=== PATIENT | female | born 1955 | race Caucasian/White ===

== ENCOUNTER 2017-05-10 11:39 | Outpatient (RCR) | payer BC, SELFPAY ==
[2017-05-03 15:30] LABS: Absolute Lymphocyte Count 1.04 X10^3/ul (0.83-4.51); Absolute Neutrophil Count 5.6 X10^3/uL (2.0-7.7); Basophil# 0.07 X10^3/uL; Basophil% 0.9 % (0-1); Eosinophil# 0.13 X10^3/uL; Eosinophils% 1.7 % (0-5); Hematocrit 43.8 % (37-47); Hemoglobin 14.3 g/dl (12.0-15.0); Lymphocyte # 1.04 X10^3/ul (4.0); Lymphocyte % 13.9 % (19-41); Mean Corp Hgb Conc 32.6 g/gl (32-36); Mean Corpuscular Hgb 29.4 pg (27.0-32.0); Mean Corpuscular Volume 89.9 fL (81-99); Mean Platelet Vol. 11.1 fl (6.2-12.0); Monocyte# 0.58 X10^3/uL; Monocyte% 7.8 % (0-10); Neutrophil # 5.63 X10^3/uL (2.7-7.7); Neutrophil % 75.3 % (47-70); Platelet Count 250 K/mm3 (150-450); RBC Distribution Width SD 46.1 fl (35.1-43.9); Red Blood Count 4.87 M/mm3 (4.2-5.4); White Blood Count 7.5 K/mm3 (4.4-11.0)
[2017-05-03 15:32] LABS: POSITIVE COUNT NO; POSITIVE DIFFERENTIAL NO; POSITIVE MORPHOLOGY NO
[2017-05-03 15:44] LABS: Color, Urine Straw (Yellow); Glucose, Dipstick Normal (Normal); Ketone-Dipstick Negative (Negative); Leukocyte Esterase-Dipstick 100 /ul (Negative); Nitrite-Dipstick Negative (Negative); Occult Blood-Urine 10 /ul (Negative); Protein-Dipstick Negative (Negative); Specific Gravity, Urine 1.005 (1.002-1.030); Urine Bilirubin Dipstick Negative (Negative); Urine Clarity Clear (Clear); Urine Urobilinogen Normal (Normal)
[2017-05-03 17:18] LABS: AST(SGOT) 16 U/L (15-37); Alanine Aminotransfer ALT/SGPT 38 U/L (12-78); BUN 20 mg/dL (7-18); EST Glomerular Filtration Rate 49 mL/min (>60); Est Glom Filt Rate - Afr Amer 59 mL/min (>60)
[2017-05-10 12:34] LABS: Color, Urine Yellow (Yellow); Glucose, Dipstick Normal (Normal); Ketone-Dipstick Negative (Negative); Leukocyte Esterase-Dipstick 25 /ul (Negative); Nitrite-Dipstick Negative (Negative); Occult Blood-Urine Negative /ul (Negative); Protein-Dipstick 15 mg/dl (Negative); Specific Gravity, Urine 1.015 (1.002-1.030); Urine Bilirubin Dipstick Negative (Negative); Urine Clarity Sl. Cloudy (Clear); Urine Urobilinogen Normal (Normal)
[2017-05-10 12:35] LABS: Absolute Lymphocyte Count 1.43 X10^3/ul (0.83-4.51); Absolute Neutrophil Count 2.2 X10^3/uL (2.0-7.7); Basophil# 0.05 X10^3/uL; Basophil% 1.1 % (0-1); Eosinophil# 0.21 X10^3/uL; Eosinophils% 4.8 % (0-5); Hematocrit 42.6 % (37-47); Hemoglobin 14.2 g/dl (12.0-15.0); Lymphocyte # 1.43 X10^3/ul (4.0); Lymphocyte % 32.6 % (19-41); Mean Corp Hgb Conc 33.3 g/gl (32-36); Mean Corpuscular Hgb 29.7 pg (27.0-32.0); Mean Corpuscular Volume 89.1 fL (81-99); Mean Platelet Vol. 10.5 fl (6.2-12.0); Monocyte# 0.48 X10^3/uL; Neutrophil % 50.3 % (47-70); Platelet Count 204 K/mm3 (150-450); RBC Distribution Width CV 14.2 % (11.6-14.6); RBC Distribution Width SD 45.6 fl (35.1-43.9); Red Blood Count 4.78 M/mm3 (4.2-5.4); White Blood Count 4.4 K/mm3 (4.4-11.0)
[2017-05-10 12:40] LABS: POSITIVE COUNT NO; POSITIVE DIFFERENTIAL NO; POSITIVE MORPHOLOGY NO
[2017-05-10 12:52] LABS: AST(SGOT) 16 U/L (15-37); Alanine Aminotransfer ALT/SGPT 33 U/L (12-78); Albumin, Serum 4.1 g/dL (3.4-5.0); BUN 20 mg/dL (7-18); Creatinine, Serum 1.22 mg/dL (0.55-1.02); EST Glomerular Filtration Rate 48 mL/min (>60); Est Glom Filt Rate - Afr Amer 58 mL/min (>60)
== END 2017-05-10 11:50 | disposition home or self-care (01) ==
LOC: LAB 11:39
PROVIDERS: Visit Provider Allergy & Immunology
DX: T78.2XXD Anaphylactic shock, unspecified, subsequent encounter (principal); N18.3 Chronic kidney disease, stage 3 (moderate); Z79.899 Other long term (current) drug therapy
CPT/HCPCS: 36415; 80158; 81002; 82040; 82565; 84450; 84460; 84520; 85025; 87086; 87088; 87186

== ENCOUNTER 2017-06-05 14:06 | Outpatient (RCR) | payer BC, SELFPAY ==
[2017-04-27 10:31] VITALS: BP 139/85; BMI 34.0
[2017-05-26 14:45] LABS: Color, Urine Yellow (Yellow); Glucose, Dipstick Normal (Normal); Ketone-Dipstick Negative (Negative); Leukocyte Esterase-Dipstick 100 /ul (Negative); Nitrite-Dipstick Negative (Negative); Occult Blood-Urine Negative /ul (Negative); Protein-Dipstick Negative (Negative); Urine Bilirubin Dipstick Negative (Negative); Urine Clarity Clear (Clear); Urine Urobilinogen Normal (Normal)
[2017-05-26 14:48] LABS: Absolute Neutrophil Count 4.5 X10^3/uL (2.0-7.7); Basophil# 0.07 X10^3/uL; Eosinophil# 0.19 X10^3/uL; Eosinophils% 2.8 % (0-5); Hematocrit 43.3 % (37-47); Lymphocyte % 24.6 % (19-41); Mean Corp Hgb Conc 32.3 g/gl (32-36); Mean Corpuscular Hgb 29.3 pg (27.0-32.0); Mean Corpuscular Volume 90.6 fL (81-99); Monocyte# 0.45 X10^3/uL; Monocyte% 6.5 % (0-10); Neutrophil # 4.47 X10^3/uL (2.7-7.7); Neutrophil % 64.8 % (47-70); Platelet Count 235 K/mm3 (150-450); RBC Distribution Width CV 14.1 % (11.6-14.6); RBC Distribution Width SD 46.6 fl (35.1-43.9); Red Blood Count 4.78 M/mm3 (4.2-5.4); White Blood Count 6.9 K/mm3 (4.4-11.0)
[2017-05-26 14:49] LABS: POSITIVE COUNT NO; POSITIVE DIFFERENTIAL NO; POSITIVE MORPHOLOGY NO
[2017-05-26 15:20] LABS: AST(SGOT) 17 U/L (15-37); Alanine Aminotransfer ALT/SGPT 43 U/L (13-56); Albumin, Serum 3.9 g/dL (3.2-5.0); BUN 27 mg/dL (7-18); EST Glomerular Filtration Rate 49 mL/min (>60); Est Glom Filt Rate - Afr Amer 59 mL/min (>60)
[2017-06-01 09:19] LABS: Absolute Lymphocyte Count 1.06 X10^3/ul (0.83-4.51); Absolute Neutrophil Count 3.3 X10^3/uL (2.0-7.7); Basophil# 0.08 X10^3/uL; Basophil% 1.6 % (0-1); Color, Urine Yellow (Yellow); Eosinophil# 0.19 X10^3/uL; Eosinophils% 3.7 % (0-5); Glucose, Dipstick Normal (Normal); Hematocrit 42.6 % (37-47); Hemoglobin 14.1 g/dl (12.0-15.0); Ketone-Dipstick Negative (Negative); Leukocyte Esterase-Dipstick 100 /ul (Negative); Lymphocyte # 1.06 X10^3/ul (4.0); Lymphocyte % 20.8 % (19-41); Mean Corp Hgb Conc 33.1 g/gl (32-36); Mean Corpuscular Hgb 29.8 pg (27.0-32.0); Mean Corpuscular Volume 90.1 fL (81-99); Mean Platelet Vol. 11.2 fl (6.2-12.0); Monocyte# 0.46 X10^3/uL; Neutrophil # 3.29 X10^3/uL (2.7-7.7); Neutrophil % 64.5 % (47-70); Nitrite-Dipstick Negative (Negative); Occult Blood-Urine Negative /ul (Negative); POSITIVE COUNT NO; POSITIVE DIFFERENTIAL NO; POSITIVE MORPHOLOGY NO; Platelet Count 222 K/mm3 (150-450); Protein-Dipstick 30 mg/dl (Negative); RBC Distribution Width CV 14.4 % (11.6-14.6); RBC Distribution Width SD 46.7 fl (35.1-43.9); Red Blood Count 4.73 M/mm3 (4.2-5.4); Urine Bilirubin Dipstick Negative (Negative); Urine Clarity Cloudy (Clear); Urine Urobilinogen Normal (Normal); White Blood Count 5.1 K/mm3 (4.4-11.0)
[2017-06-01 09:51] LABS: AST(SGOT) 18 U/L (15-37); Alanine Aminotransfer ALT/SGPT 36 U/L (13-56); Albumin, Serum 3.7 g/dL (3.2-5.0); BUN 22 mg/dL (7-18); Creatinine, Serum 1.17 mg/dL (0.55-1.02); EST Glomerular Filtration Rate 50 mL/min (>60); Est Glom Filt Rate - Afr Amer 60 mL/min (>60)
[2017-06-05 16:09] LABS: Color, Urine Straw (Yellow); Glucose, Dipstick Normal (Normal); Ketone-Dipstick Negative (Negative); Leukocyte Esterase-Dipstick 100 /ul (Negative); Nitrite-Dipstick Negative (Negative); Occult Blood-Urine Negative /ul (Negative); Protein-Dipstick Negative (Negative); Urine Bilirubin Dipstick Negative (Negative); Urine Clarity Clear (Clear); Urine Urobilinogen Normal (Normal); Urine pH 6.5 (5.0 - 8.0)
[2017-06-05 16:14] LABS: Absolute Lymphocyte Count 1.32 X10^3/ul (0.83-4.51); Absolute Neutrophil Count 4.2 X10^3/uL (2.0-7.7); Basophil# 0.09 X10^3/uL; Basophil% 1.4 % (0-1); Eosinophil# 0.17 X10^3/uL; Eosinophils% 2.6 % (0-5); Hemoglobin 14.2 g/dl (12.0-15.0); Lymphocyte # 1.32 X10^3/ul (4.0); Lymphocyte % 20.2 % (19-41); Mean Corpuscular Hgb 29.6 pg (27.0-32.0); Mean Corpuscular Volume 89.6 fL (81-99); Mean Platelet Vol. 11.6 fl (6.2-12.0); Monocyte# 0.71 X10^3/uL; Monocyte% 10.9 % (0-10); Neutrophil % 64.4 % (47-70); Platelet Count 218 K/mm3 (150-450); RBC Distribution Width CV 14.5 % (11.6-14.6); RBC Distribution Width SD 47.3 fl (35.1-43.9); White Blood Count 6.5 K/mm3 (4.4-11.0)
[2017-06-05 16:17] LABS: POSITIVE COUNT NO; POSITIVE DIFFERENTIAL NO; POSITIVE MORPHOLOGY NO
[2017-06-05 16:38] LABS: AST(SGOT) 24 U/L (15-37); Alanine Aminotransfer ALT/SGPT 36 U/L (13-56); Albumin, Serum 3.9 g/dL (3.2-5.0); BUN 26 mg/dL (7-18); Creatinine, Serum 1.07 mg/dL (0.55-1.02); EST Glomerular Filtration Rate 55 mL/min (>60); Est Glom Filt Rate - Afr Amer 67 mL/min (>60)
== END 2017-06-05 15:00 | disposition home or self-care (01) ==
LOC: LAB 14:06
PROVIDERS: Visit Provider Allergy & Immunology
DX: T78.2XXD Anaphylactic shock, unspecified, subsequent encounter (principal); N18.3 Chronic kidney disease, stage 3 (moderate); Z79.899 Other long term (current) drug therapy
CPT/HCPCS: 36415; 80158; 81002; 82040; 82565; 84450; 84460; 84520; 85025

== ENCOUNTER 2017-07-06 13:46 | Outpatient (RCR) | payer BC, SELFPAY ==
[2017-06-15 15:52] LABS: Absolute Lymphocyte Count 1.47 X10^3/ul (0.83-4.51); Absolute Neutrophil Count 6.1 X10^3/uL (2.0-7.7); Basophil# 0.05 X10^3/uL; Basophil% 0.6 % (0-1); Eosinophils% 1.2 % (0-5); Hematocrit 42.8 % (37-47); Hemoglobin 13.9 g/dl (12.0-15.0); Lymphocyte # 1.47 X10^3/ul (4.0); Lymphocyte % 17.1 % (19-41); Mean Corp Hgb Conc 32.5 g/gl (32-36); Mean Corpuscular Hgb 29.2 pg (27.0-32.0); Mean Corpuscular Volume 89.9 fL (81-99); Mean Platelet Vol. 11.4 fl (6.2-12.0); Monocyte# 0.88 X10^3/uL; Monocyte% 10.2 % (0-10); Neutrophil # 6.08 X10^3/uL (2.7-7.7); Neutrophil % 70.7 % (47-70); Platelet Count 234 K/mm3 (150-450); RBC Distribution Width CV 14.1 % (11.6-14.6); RBC Distribution Width SD 46.3 fl (35.1-43.9); Red Blood Count 4.76 M/mm3 (4.2-5.4); White Blood Count 8.6 K/mm3 (4.4-11.0)
[2017-06-15 15:58] LABS: POSITIVE COUNT NO; POSITIVE DIFFERENTIAL NO; POSITIVE MORPHOLOGY NO
[2017-06-15 16:02] LABS: Color, Urine Yellow (Yellow); Glucose, Dipstick Normal (Normal); Ketone-Dipstick Negative (Negative); Leukocyte Esterase-Dipstick 100 /ul (Negative); Nitrite-Dipstick Negative (Negative); Occult Blood-Urine Negative /ul (Negative); Protein-Dipstick Negative (Negative); Urine Bilirubin Dipstick Negative (Negative); Urine Clarity Clear (Clear); Urine Urobilinogen Normal (Normal)
[2017-06-15 16:17] LABS: AST(SGOT) 16 U/L (15-37); Alanine Aminotransfer ALT/SGPT 39 U/L (13-56); Albumin, Serum 3.9 g/dL (3.2-5.0); BUN 30 mg/dL (7-18); Creatinine, Serum 1.33 mg/dL (0.55-1.02); EST Glomerular Filtration Rate 43 mL/min (>60); Est Glom Filt Rate - Afr Amer 52 mL/min (>60)
[2017-07-06 14:40] LABS: Absolute Lymphocyte Count 1.23 X10^3/ul (0.83-4.51); Absolute Neutrophil Count 4.1 X10^3/uL (2.0-7.7); Basophil# 0.06 X10^3/uL; Basophil% 0.9 % (0-1); Eosinophil# 0.14 X10^3/uL; Eosinophils% 2.2 % (0-5); Hematocrit 43.4 % (37-47); Hemoglobin 14.5 g/dl (12.0-15.0); Lymphocyte # 1.23 X10^3/ul (4.0); Lymphocyte % 19.2 % (19-41); Mean Corp Hgb Conc 33.4 g/gl (32-36); Mean Corpuscular Hgb 29.9 pg (27.0-32.0); Mean Corpuscular Volume 89.5 fL (81-99); Mean Platelet Vol. 10.7 fl (6.2-12.0); Monocyte# 0.79 X10^3/uL; Monocyte% 12.3 % (0-10); Neutrophil # 4.14 X10^3/uL (2.7-7.7); Neutrophil % 64.6 % (47-70); Platelet Count 230 K/mm3 (150-450); RBC Distribution Width CV 14.2 % (11.6-14.6); RBC Distribution Width SD 46.2 fl (35.1-43.9); Red Blood Count 4.85 M/mm3 (4.2-5.4); White Blood Count 6.4 K/mm3 (4.4-11.0)
[2017-07-06 14:54] LABS: POSITIVE COUNT NO; POSITIVE DIFFERENTIAL NO; POSITIVE MORPHOLOGY NO
[2017-07-06 15:01] LABS: AST(SGOT) 30 U/L (15-37); Alanine Aminotransfer ALT/SGPT 44 U/L (13-56); Albumin, Serum 3.9 g/dL (3.2-5.0); BUN 15 mg/dL (7-18); Creatinine, Serum 1.21 mg/dL (0.55-1.02); EST Glomerular Filtration Rate 48 mL/min (>60); Est Glom Filt Rate - Afr Amer 58 mL/min (>60)
[2017-07-06 15:21] LABS: Color, Urine Straw (Yellow); Glucose, Dipstick Normal (Normal); Ketone-Dipstick Negative (Negative); Leukocyte Esterase-Dipstick 25 /ul (Negative); Nitrite-Dipstick Negative (Negative); Occult Blood-Urine Negative /ul (Negative); Protein-Dipstick Negative (Negative); Specific Gravity, Urine 1.005 (1.002-1.030); Urine Bilirubin Dipstick Negative (Negative); Urine Clarity Clear (Clear); Urine Urobilinogen Normal (Normal); Urine pH 6.5 (5.0 - 8.0)
[2017-07-08 08:35] LABS: Cyclosporine 88 ng/mL (100-400)
== END 2017-07-06 14:00 | disposition home or self-care (01) ==
LOC: LAB 13:46
PROVIDERS: Visit Provider Allergy & Immunology
DX: Z79.899 Other long term (current) drug therapy (principal); N18.3 Chronic kidney disease, stage 3 (moderate); T78.2XXD Anaphylactic shock, unspecified, subsequent encounter
CPT/HCPCS: 36415; 80158; 81002; 82040; 82565; 84450; 84460; 84520; 85025

== ENCOUNTER 2017-08-08 14:08 | Outpatient (RCR) | payer BC, SELFPAY ==
[2017-07-19 11:33] LABS: Bacteria 0 SEEN /hpf (None Seen); Mucous, Urine 0 SEEN /hpf (<or=2+); Red Blood Cells-Urine 0 SEEN /hpf (0-5)
[2017-07-19 11:48] LABS: Absolute Lymphocyte Count 1.08 X10^3/ul (0.83-4.51); Absolute Neutrophil Count 4.3 X10^3/uL (2.0-7.7); Basophil# 0.05 X10^3/uL; Basophil% 0.8 % (0-1); Eosinophil# 0.13 X10^3/uL; Eosinophils% 2.1 % (0-5); Hematocrit 45.2 % (37-47); Hemoglobin 14.9 g/dl (12.0-15.0); Lymphocyte # 1.08 X10^3/ul (4.0); Lymphocyte % 17.5 % (19-41); Mean Corpuscular Hgb 29.3 pg (27.0-32.0); Mean Platelet Vol. 10.5 fl (6.2-12.0); Monocyte# 0.56 X10^3/uL; Monocyte% 9.1 % (0-10); Neutrophil # 4.32 X10^3/uL (2.7-7.7); Platelet Count 236 K/mm3 (150-450); RBC Distribution Width CV 14.1 % (11.6-14.6); RBC Distribution Width SD 45.2 fl (35.1-43.9); Red Blood Count 5.08 M/mm3 (4.2-5.4); White Blood Count 6.2 K/mm3 (4.4-11.0)
[2017-07-19 11:51] LABS: POSITIVE COUNT NO; POSITIVE DIFFERENTIAL NO; POSITIVE MORPHOLOGY NO
[2017-07-19 12:13] LABS: AST(SGOT) 19 U/L (15-37); Alanine Aminotransfer ALT/SGPT 41 U/L (13-56); Albumin, Serum 3.8 g/dL (3.2-5.0); BUN 18 mg/dL (7-18); Creatinine, Serum 1.16 mg/dL (0.55-1.02); EST Glomerular Filtration Rate 50 mL/min (>60); Est Glom Filt Rate - Afr Amer 61 mL/min (>60)
[2017-07-19 13:24] LABS: Color, Urine Yellow (Yellow); Glucose, Dipstick Normal (Normal); Ketone-Dipstick Negative (Negative); Leukocyte Esterase-Dipstick 25 /ul (Negative); Nitrite-Dipstick Negative (Negative); Occult Blood-Urine 25 /ul (Negative); Protein-Dipstick 30 mg/dl (Negative); Urine Bilirubin Dipstick Negative (Negative); Urine Clarity Clear (Clear); Urine Urobilinogen Normal (Normal); Urine pH 6.5 (5.0 - 8.0)
[2017-07-19 13:30] LABS: Squamous Epithelial Cells - UA 10-25 SEEN /hpf (5-10); White Blood Cells 0-5 SEEN /hpf (0-5)
[2017-08-08 15:10] LABS: Absolute Lymphocyte Count 1.33 X10^3/ul (0.83-4.51); Absolute Neutrophil Count 4.9 X10^3/uL (2.0-7.7); Basophil# 0.07 X10^3/uL; Eosinophil# 0.17 X10^3/uL; Eosinophils% 2.3 % (0-5); Hematocrit 43.2 % (37-47); Hemoglobin 14.6 g/dl (12.0-15.0); Lymphocyte # 1.33 X10^3/ul (4.0); Lymphocyte % 18.3 % (19-41); Mean Corp Hgb Conc 33.8 g/gl (32-36); Mean Corpuscular Volume 88.9 fL (81-99); Mean Platelet Vol. 11.1 fl (6.2-12.0); Monocyte# 0.74 X10^3/uL; Monocyte% 10.2 % (0-10); Neutrophil # 4.92 X10^3/uL (2.7-7.7); Neutrophil % 67.8 % (47-70); Platelet Count 233 K/mm3 (150-450); RBC Distribution Width CV 14.1 % (11.6-14.6); RBC Distribution Width SD 45.3 fl (35.1-43.9); Red Blood Count 4.86 M/mm3 (4.2-5.4); White Blood Count 7.3 K/mm3 (4.4-11.0)
[2017-08-08 15:11] LABS: POSITIVE COUNT NO; POSITIVE DIFFERENTIAL NO; POSITIVE MORPHOLOGY NO
[2017-08-08 15:29] LABS: AST(SGOT) 24 U/L (15-37); Alanine Aminotransfer ALT/SGPT 45 U/L (13-56); BUN 18 mg/dL (7-18); Creatinine, Serum 1.06 mg/dL (0.55-1.02); EST Glomerular Filtration Rate 56 mL/min (>60); Est Glom Filt Rate - Afr Amer 68 mL/min (>60)
[2017-08-08 16:18] LABS: Color, Urine Yellow (Yellow); Glucose, Dipstick Normal (Normal); Ketone-Dipstick Negative (Negative); Leukocyte Esterase-Dipstick Negative /ul (Negative); Nitrite-Dipstick Negative (Negative); Occult Blood-Urine Negative /ul (Negative); Protein-Dipstick Negative (Negative); Specific Gravity, Urine 1.005 (1.002-1.030); Urine Bilirubin Dipstick Negative (Negative); Urine Clarity Sl. Cloudy (Clear); Urine Urobilinogen Normal (Normal)
== END 2017-08-08 15:00 | disposition home or self-care (01) ==
LOC: LAB 14:08
PROVIDERS: Visit Provider Allergy & Immunology
DX: N18.3 Chronic kidney disease, stage 3 (moderate) (principal); T78.2XXD Anaphylactic shock, unspecified, subsequent encounter; Z79.899 Other long term (current) drug therapy
CPT/HCPCS: 36415; 80158; 81001; 81002; 82040; 82565; 84450; 84460; 84520; 85025

== ENCOUNTER 2017-08-31 13:00 | Outpatient (RCR) | payer BC, SELFPAY ==
[2017-08-25 09:53] LABS: Absolute Lymphocyte Count 1.13 X10^3/ul (0.83-4.51); Absolute Neutrophil Count 4.3 X10^3/uL (2.0-7.7); Basophil# 0.08 X10^3/uL; Basophil% 1.2 % (0-1); Eosinophil# 0.18 X10^3/uL; Eosinophils% 2.8 % (0-5); Hemoglobin 14.7 g/dl (12.0-15.0); Lymphocyte # 1.13 X10^3/ul (4.0); Lymphocyte % 17.6 % (19-41); Mean Corp Hgb Conc 33.4 g/gl (32-36); Mean Corpuscular Hgb 29.9 pg (27.0-32.0); Mean Corpuscular Volume 89.6 fL (81-99); Mean Platelet Vol. 10.8 fl (6.2-12.0); Monocyte# 0.69 X10^3/uL; Monocyte% 10.7 % (0-10); Neutrophil # 4.34 X10^3/uL (2.7-7.7); Neutrophil % 67.5 % (47-70); Platelet Count 220 K/mm3 (150-450); RBC Distribution Width CV 14.1 % (11.6-14.6); RBC Distribution Width SD 46.1 fl (35.1-43.9); Red Blood Count 4.91 M/mm3 (4.2-5.4); White Blood Count 6.4 K/mm3 (4.4-11.0)
[2017-08-25 09:54] LABS: POSITIVE COUNT NO; POSITIVE DIFFERENTIAL NO; POSITIVE MORPHOLOGY NO
[2017-08-25 10:18] LABS: AST(SGOT) 27 U/L (15-37); Albumin, Serum 3.9 g/dL (3.2-5.0); BUN 19 mg/dL (7-18); Creatinine, Serum 1.18 mg/dL (0.55-1.02); EST Glomerular Filtration Rate 49 mL/min (>60); Est Glom Filt Rate - Afr Amer 60 mL/min (>60)
[2017-08-25 14:29] LABS: Color, Urine Yellow (Yellow); Glucose, Dipstick Normal (Normal); Ketone-Dipstick Negative (Negative); Leukocyte Esterase-Dipstick 100 /ul (Negative); Nitrite-Dipstick Negative (Negative); Occult Blood-Urine Negative /ul (Negative); Protein-Dipstick Negative (Negative); Urine Bilirubin Dipstick Negative (Negative); Urine Clarity Sl. Cloudy (Clear); Urine Urobilinogen Normal (Normal)
[2017-08-31 13:39] LABS: Color, Urine Straw (Yellow); Glucose, Dipstick Normal (Normal); Ketone-Dipstick Negative (Negative); Leukocyte Esterase-Dipstick 25 /ul (Negative); Nitrite-Dipstick Negative (Negative); Occult Blood-Urine Negative /ul (Negative); Protein-Dipstick Negative (Negative); Urine Bilirubin Dipstick Negative (Negative); Urine Clarity Clear (Clear); Urine Urobilinogen Normal (Normal)
[2017-08-31 13:50] LABS: Basophil# 0.04 X10^3/uL; Basophil% 0.5 % (0-1); Eosinophil# 0.08 X10^3/uL; Hematocrit 42.5 % (37-47); Lymphocyte % 17.9 % (19-41); Mean Corp Hgb Conc 32.9 g/gl (32-36); Mean Corpuscular Hgb 29.3 pg (27.0-32.0); Mean Corpuscular Volume 88.9 fL (81-99); Mean Platelet Vol. 10.7 fl (6.2-12.0); Monocyte% 8.4 % (0-10); Neutrophil # 6.01 X10^3/uL (2.7-7.7); Neutrophil % 71.8 % (47-70); Platelet Count 219 K/mm3 (150-450); RBC Distribution Width CV 13.8 % (11.6-14.6); RBC Distribution Width SD 45.1 fl (35.1-43.9); Red Blood Count 4.78 M/mm3 (4.2-5.4); White Blood Count 8.4 K/mm3 (4.4-11.0)
[2017-08-31 13:54] LABS: POSITIVE COUNT NO; POSITIVE DIFFERENTIAL NO; POSITIVE MORPHOLOGY NO
[2017-08-31 14:13] LABS: AST(SGOT) 24 U/L (15-37); Albumin, Serum 3.9 g/dL (3.2-5.0); BUN 18 mg/dL (7-18); Creatinine, Serum 1.21 mg/dL (0.55-1.02); EST Glomerular Filtration Rate 48 mL/min (>60); Est Glom Filt Rate - Afr Amer 58 mL/min (>60)
== END 2017-08-31 14:00 | disposition home or self-care (01) ==
LOC: LAB 13:00
PROVIDERS: Visit Provider Allergy & Immunology
DX: N18.3 Chronic kidney disease, stage 3 (moderate) (principal); T78.2XXD Anaphylactic shock, unspecified, subsequent encounter; Z79.899 Other long term (current) drug therapy
CPT/HCPCS: 36415; 80158; 81002; 82040; 82565; 84450; 84520; 85025

== ENCOUNTER 2017-10-12 13:29 | Outpatient (RCR) | payer BC, SELFPAY ==
[2017-09-15 10:23] LABS: Color, Urine Yellow (Yellow); Glucose, Dipstick Normal (Normal); Ketone-Dipstick Negative (Negative); Leukocyte Esterase-Dipstick Negative /ul (Negative); Nitrite-Dipstick Negative (Negative); Occult Blood-Urine 10 /ul (Negative); Protein-Dipstick 15 mg/dl (Negative); Specific Gravity, Urine 1.015 (1.002-1.030); Urine Bilirubin Dipstick Negative (Negative); Urine Clarity Sl. Cloudy (Clear); Urine Urobilinogen Normal (Normal)
[2017-09-15 10:32] LABS: Absolute Lymphocyte Count 0.88 X10^3/ul (0.83-4.51); Absolute Neutrophil Count 6.4 X10^3/uL (2.0-7.7); Basophil# 0.05 X10^3/uL; Basophil% 0.6 % (0-1); Eosinophil# 0.44 X10^3/uL; Eosinophils% 5.1 % (0-5); Hemoglobin 14.1 g/dl (12.0-15.0); Lymphocyte # 0.88 X10^3/ul (4.0); Lymphocyte % 10.3 % (19-41); Mean Corp Hgb Conc 32.8 g/gl (32-36); Mean Corpuscular Hgb 29.4 pg (27.0-32.0); Mean Corpuscular Volume 89.8 fL (81-99); Mean Platelet Vol. 10.7 fl (6.2-12.0); Monocyte% 9.4 % (0-10); Neutrophil # 6.36 X10^3/uL (2.7-7.7); Neutrophil % 74.4 % (47-70); Platelet Count 213 K/mm3 (150-450); RBC Distribution Width CV 14.1 % (11.6-14.6); RBC Distribution Width SD 46.4 fl (35.1-43.9); Red Blood Count 4.79 M/mm3 (4.2-5.4); White Blood Count 8.6 K/mm3 (4.4-11.0)
[2017-09-15 11:00] LABS: AST(SGOT) 26 U/L (15-37); Albumin, Serum 3.7 g/dL (3.2-5.0); BUN 19 mg/dL (7-18); Creatinine, Serum 1.14 mg/dL (0.55-1.02); EST Glomerular Filtration Rate 51 mL/min (>60); Est Glom Filt Rate - Afr Amer 62 mL/min (>60)
[2017-09-15 11:03] LABS: POSITIVE COUNT NO; POSITIVE DIFFERENTIAL NO; POSITIVE MORPHOLOGY NO
[2017-09-28 10:26] LABS: Cyclosporine 180 ng/mL (100-400)
[2017-09-29 12:44] LABS: Absolute Lymphocyte Count 1.21 X10^3/ul (0.83-4.51); Absolute Neutrophil Count 5.4 X10^3/uL (2.0-7.7); Basophil# 0.06 X10^3/uL; Basophil% 0.8 % (0-1); Eosinophil# 0.25 X10^3/uL; Eosinophils% 3.4 % (0-5); Hematocrit 43.7 % (37-47); Hemoglobin 14.5 g/dl (12.0-15.0); Lymphocyte # 1.21 X10^3/ul (4.0); Lymphocyte % 16.4 % (19-41); Mean Corp Hgb Conc 33.2 g/gl (32-36); Mean Corpuscular Hgb 29.8 pg (27.0-32.0); Mean Corpuscular Volume 89.9 fL (81-99); Mean Platelet Vol. 10.9 fl (6.2-12.0); Monocyte# 0.45 X10^3/uL; Monocyte% 6.1 % (0-10); Neutrophil # 5.35 X10^3/uL (2.7-7.7); Neutrophil % 72.5 % (47-70); Platelet Count 227 K/mm3 (150-450); RBC Distribution Width CV 14.1 % (11.6-14.6); RBC Distribution Width SD 45.8 fl (35.1-43.9); Red Blood Count 4.86 M/mm3 (4.2-5.4); White Blood Count 7.4 K/mm3 (4.4-11.0)
[2017-09-29 12:50] LABS: POSITIVE COUNT NO; POSITIVE DIFFERENTIAL NO; POSITIVE MORPHOLOGY NO
[2017-09-29 12:56] LABS: Color, Urine Yellow (Yellow); Glucose, Dipstick Normal (Normal); Ketone-Dipstick Negative (Negative); Leukocyte Esterase-Dipstick Negative /ul (Negative); Nitrite-Dipstick Negative (Negative); Occult Blood-Urine Negative /ul (Negative); Protein-Dipstick 15 mg/dl (Negative); Specific Gravity, Urine 1.015 (1.002-1.030); Urine Bilirubin Dipstick Negative (Negative); Urine Clarity Clear (Clear); Urine Urobilinogen Normal (Normal)
[2017-09-29 13:04] LABS: AST(SGOT) 26 U/L (15-37); Alanine Aminotransfer ALT/SGPT 52 U/L (13-56); Albumin, Serum 3.7 g/dL (3.2-5.0); BUN 23 mg/dL (7-18); Creatinine, Serum 1.33 mg/dL (0.55-1.02); EST Glomerular Filtration Rate 43 mL/min (>60); Est Glom Filt Rate - Afr Amer 52 mL/min (>60)
[2017-10-03 14:48] LABS: Cyclosporine 163 ng/mL (100-400)
[2017-10-05 10:05] LABS: Mucous, Urine 0 SEEN /hpf (<or=2+); Red Blood Cells-Urine 0 SEEN /hpf (0-5)
[2017-10-05 11:03] LABS: Color, Urine Yellow (Yellow); Glucose, Dipstick Normal (Normal); Ketone-Dipstick Negative (Negative); Leukocyte Esterase-Dipstick 25 /ul (Negative); Nitrite-Dipstick Negative (Negative); Occult Blood-Urine 10 /ul (Negative); Protein-Dipstick 15 mg/dl (Negative); Specific Gravity, Urine 1.015 (1.002-1.030); Urine Bilirubin Dipstick Negative (Negative); Urine Clarity Clear (Clear); Urine Urobilinogen Normal (Normal)
[2017-10-05 11:08] LABS: Absolute Lymphocyte Count 1.08 X10^3/ul (0.83-4.51); Basophil# 0.05 X10^3/uL; Basophil% 0.8 % (0-1); Eosinophil# 0.21 X10^3/uL; Eosinophils% 3.6 % (0-5); Hematocrit 42.3 % (37-47); Hemoglobin 14.1 g/dl (12.0-15.0); Lymphocyte # 1.08 X10^3/ul (4.0); Lymphocyte % 18.3 % (19-41); Mean Corp Hgb Conc 33.3 g/gl (32-36); Mean Corpuscular Hgb 29.9 pg (27.0-32.0); Mean Corpuscular Volume 89.6 fL (81-99); Mean Platelet Vol. 11.1 fl (6.2-12.0); Monocyte# 0.53 X10^3/uL; Neutrophil # 4.01 X10^3/uL (2.7-7.7); Platelet Count 233 K/mm3 (150-450); RBC Distribution Width CV 14.1 % (11.6-14.6); RBC Distribution Width SD 45.9 fl (35.1-43.9); Red Blood Count 4.72 M/mm3 (4.2-5.4); White Blood Count 5.9 K/mm3 (4.4-11.0)
[2017-10-05 11:10] LABS: Bacteria RARE /hpf (None Seen); POSITIVE COUNT NO; POSITIVE DIFFERENTIAL NO; POSITIVE MORPHOLOGY NO; Squamous Epithelial Cells - UA 5-10 SEEN /hpf (5-10); White Blood Cells 0-5 SEEN /hpf (0-5)
[2017-10-05 11:25] LABS: Microalbumin,Random Urine 52.5 mg/L (NO RANGE EST.)
[2017-10-05 11:40] LABS: AST(SGOT) 21 U/L (15-37); Alanine Aminotransfer ALT/SGPT 49 U/L (13-56); Albumin, Serum 3.7 g/dL (3.2-5.0); BUN 14 mg/dL (7-18); BUN/Creat Ratio 12.5 RATIO (10-20); Calcium,Total 8.7 mg/dL (8.5-10.1); Chloride 110 mmol/L (98-107); Creatinine, Serum 1.12 mg/dL (0.55-1.02); EST Glomerular Filtration Rate 53 mL/min (>60); Est Glom Filt Rate - Afr Amer 64 mL/min (>60); Glucose 89 mg/dL (74-106); Phosphorus 3.3 mg/dL (2.5-4.9); Potassium 3.6 mmol/L (3.5-5.1); Sodium Level 141 mmol/L (136-145); Uric Acid 6.2 mg/dL (2.6-6.0)
[2017-10-06 09:51] LABS: PTHIN 50.4 pg/mL (18.4-80.1)
[2017-10-06 09:58] LABS: Vitamin D,25 Hydroxy 56.9 ng/mL (29.95-100.01)
[2017-10-12 14:14] LABS: Absolute Lymphocyte Count 1.64 X10^3/ul (0.83-4.51); Absolute Neutrophil Count 5.4 X10^3/uL (2.0-7.7); Basophil# 0.03 X10^3/uL; Basophil% 0.4 % (0-1); Eosinophils% 1.3 % (0-5); Hematocrit 43.3 % (37-47); Hemoglobin 14.1 g/dl (12.0-15.0); Lymphocyte # 1.64 X10^3/ul (4.0); Lymphocyte % 20.5 % (19-41); Mean Corp Hgb Conc 32.6 g/gl (32-36); Mean Corpuscular Hgb 29.1 pg (27.0-32.0); Mean Corpuscular Volume 89.5 fL (81-99); Mean Platelet Vol. 10.7 fl (6.2-12.0); Neutrophil # 5.41 X10^3/uL (2.7-7.7); Neutrophil % 67.5 % (47-70); Platelet Count 211 K/mm3 (150-450); RBC Distribution Width CV 14.2 % (11.6-14.6); RBC Distribution Width SD 46.3 fl (35.1-43.9); Red Blood Count 4.84 M/mm3 (4.2-5.4)
[2017-10-12 14:15] LABS: POSITIVE COUNT NO; POSITIVE DIFFERENTIAL NO; POSITIVE MORPHOLOGY NO
[2017-10-12 14:19] LABS: AST(SGOT) 19 U/L (15-37); Alanine Aminotransfer ALT/SGPT 48 U/L (13-56); Albumin, Serum 3.9 g/dL (3.2-5.0); BUN 17 mg/dL (7-18); Creatinine, Serum 1.18 mg/dL (0.55-1.02); EST Glomerular Filtration Rate 49 mL/min (>60); Est Glom Filt Rate - Afr Amer 60 mL/min (>60)
[2017-10-12 15:27] LABS: Color, Urine Straw (Yellow); Glucose, Dipstick Normal (Normal); Ketone-Dipstick Negative (Negative); Leukocyte Esterase-Dipstick 100 /ul (Negative); Nitrite-Dipstick Negative (Negative); Occult Blood-Urine Negative /ul (Negative); Protein-Dipstick Negative (Negative); Specific Gravity, Urine 1.005 (1.002-1.030); Urine Bilirubin Dipstick Negative (Negative); Urine Clarity Clear (Clear); Urine Urobilinogen Normal (Normal)
== END 2017-10-12 14:00 | disposition home or self-care (01) ==
LOC: LAB 13:29
PROVIDERS: Visit Provider Allergy & Immunology
DX: T78.2XXD Anaphylactic shock, unspecified, subsequent encounter (principal); N18.3 Chronic kidney disease, stage 3 (moderate); Z79.899 Other long term (current) drug therapy
CPT/HCPCS: 36415; 80069; 80158; 81001; 81002; 82040; 82043; 82306; 82565; 83970; 84450; 84460; 84520; 84550; 85025

== ENCOUNTER 2017-11-10 09:32 | Outpatient (RCR) | payer BC, SELFPAY ==
[2017-10-19 15:18] LABS: Color, Urine Straw (Yellow); Glucose, Dipstick Normal (Normal); Ketone-Dipstick Negative (Negative); Leukocyte Esterase-Dipstick Negative /ul (Negative); Nitrite-Dipstick Negative (Negative); Occult Blood-Urine Negative /ul (Negative); Protein-Dipstick Negative (Negative); Specific Gravity, Urine 1.005 (1.002-1.030); Urine Bilirubin Dipstick Negative (Negative); Urine Clarity Clear (Clear); Urine Urobilinogen Normal (Normal); Urine pH 6.5 (5.0 - 8.0)
[2017-10-19 15:20] LABS: Absolute Lymphocyte Count 1.33 X10^3/ul (0.83-4.51); Absolute Neutrophil Count 5.2 X10^3/uL (2.0-7.7); Basophil# 0.06 X10^3/uL; Basophil% 0.8 % (0-1); Eosinophil# 0.15 X10^3/uL; Eosinophils% 2.1 % (0-5); Hematocrit 44.8 % (37-47); Hemoglobin 14.3 g/dl (12.0-15.0); Lymphocyte # 1.33 X10^3/ul (4.0); Lymphocyte % 18.4 % (19-41); Mean Corp Hgb Conc 31.9 g/gl (32-36); Mean Corpuscular Hgb 28.8 pg (27.0-32.0); Mean Corpuscular Volume 90.3 fL (81-99); Monocyte# 0.45 X10^3/uL; Monocyte% 6.2 % (0-10); Neutrophil % 72.2 % (47-70); Platelet Count 243 K/mm3 (150-450); RBC Distribution Width CV 14.2 % (11.6-14.6); RBC Distribution Width SD 46.4 fl (35.1-43.9); Red Blood Count 4.96 M/mm3 (4.2-5.4); White Blood Count 7.2 K/mm3 (4.4-11.0)
[2017-10-19 15:23] LABS: POSITIVE COUNT NO; POSITIVE DIFFERENTIAL NO; POSITIVE MORPHOLOGY NO
[2017-10-19 15:52] LABS: AST(SGOT) 22 U/L (15-37); Alanine Aminotransfer ALT/SGPT 36 U/L (13-56); Albumin, Serum 3.8 g/dL (3.2-5.0); BUN 18 mg/dL (7-18); Creatinine, Serum 1.07 mg/dL (0.55-1.02); EST Glomerular Filtration Rate 55 mL/min (>60); Est Glom Filt Rate - Afr Amer 67 mL/min (>60)
[2017-11-10 10:09] LABS: Absolute Lymphocyte Count 0.91 X10^3/ul (0.83-4.51); Absolute Neutrophil Count 5.2 X10^3/uL (2.0-7.7); Basophil# 0.05 X10^3/uL; Basophil% 0.7 % (0-1); Eosinophil# 0.19 X10^3/uL; Eosinophils% 2.8 % (0-5); Hemoglobin 14.2 g/dl (12.0-15.0); Lymphocyte # 0.91 X10^3/ul (4.0); Lymphocyte % 13.3 % (19-41); Mean Corp Hgb Conc 32.3 g/gl (32-36); Mean Corpuscular Hgb 29.3 pg (27.0-32.0); Mean Corpuscular Volume 90.7 fL (81-99); Mean Platelet Vol. 10.6 fl (6.2-12.0); Monocyte# 0.52 X10^3/uL; Monocyte% 7.6 % (0-10); Neutrophil # 5.16 X10^3/uL (2.7-7.7); Neutrophil % 75.3 % (47-70); Platelet Count 185 K/mm3 (150-450); RBC Distribution Width CV 14.8 % (11.6-14.6); RBC Distribution Width SD 49.2 fl (35.1-43.9); Red Blood Count 4.85 M/mm3 (4.2-5.4); White Blood Count 6.9 K/mm3 (4.4-11.0)
[2017-11-10 10:10] LABS: POSITIVE COUNT NO; POSITIVE DIFFERENTIAL NO; POSITIVE MORPHOLOGY NO
[2017-11-10 10:23] LABS: Color, Urine Yellow (Yellow); Glucose, Dipstick Normal (Normal); Ketone-Dipstick Negative (Negative); Leukocyte Esterase-Dipstick 25 /ul (Negative); Nitrite-Dipstick Negative (Negative); Occult Blood-Urine Negative /ul (Negative); Protein-Dipstick 15 mg/dl (Negative); Specific Gravity, Urine 1.015 (1.002-1.030); Urine Bilirubin Dipstick Negative (Negative); Urine Clarity Clear (Clear); Urine Urobilinogen Normal (Normal); Urine pH 6.5 (5.0 - 8.0)
[2017-11-10 10:29] LABS: AST(SGOT) 23 U/L (15-37); Alanine Aminotransfer ALT/SGPT 38 U/L (13-56); Albumin, Serum 3.6 g/dL (3.2-5.0); BUN 16 mg/dL (7-18); Creatinine, Serum 1.21 mg/dL (0.55-1.02); EST Glomerular Filtration Rate 48 mL/min (>60); Est Glom Filt Rate - Afr Amer 58 mL/min (>60)
== END 2017-11-10 09:33 | disposition home or self-care (01) ==
LOC: LAB 09:32
PROVIDERS: Visit Provider Allergy & Immunology
DX: T78.2XXD Anaphylactic shock, unspecified, subsequent encounter (principal); N18.3 Chronic kidney disease, stage 3 (moderate); Z79.899 Other long term (current) drug therapy
CPT/HCPCS: 36415; 80158; 81002; 82040; 82565; 84450; 84460; 84520; 85025

== ENCOUNTER 2017-11-16 13:36 | Outpatient (RCR) | payer BC, SELFPAY ==
[2017-11-16 14:55] LABS: Color, Urine Yellow (Yellow); Glucose, Dipstick Normal (Normal); Ketone-Dipstick Negative (Negative); Leukocyte Esterase-Dipstick Negative /ul (Negative); Nitrite-Dipstick Negative (Negative); Occult Blood-Urine Negative /ul (Negative); Protein-Dipstick Negative (Negative); Urine Bilirubin Dipstick Negative (Negative); Urine Clarity Clear (Clear); Urine Urobilinogen Normal (Normal)
[2017-11-16 15:08] LABS: Absolute Lymphocyte Count 1.04 X10^3/ul (0.83-4.51); Absolute Neutrophil Count 4.8 X10^3/uL (2.0-7.7); Basophil# 0.03 X10^3/uL; Basophil% 0.4 % (0-1); Eosinophil# 0.14 X10^3/uL; Eosinophils% 2.1 % (0-5); Hematocrit 43.7 % (37-47); Hemoglobin 14.2 g/dl (12.0-15.0); Lymphocyte # 1.04 X10^3/ul (4.0); Lymphocyte % 15.4 % (19-41); Mean Corp Hgb Conc 32.5 g/gl (32-36); Mean Corpuscular Hgb 29.6 pg (27.0-32.0); Mean Platelet Vol. 10.8 fl (6.2-12.0); Monocyte# 0.74 X10^3/uL; Neutrophil # 4.78 X10^3/uL (2.7-7.7); Platelet Count 212 K/mm3 (150-450); RBC Distribution Width CV 14.9 % (11.6-14.6); RBC Distribution Width SD 49.7 fl (35.1-43.9); White Blood Count 6.7 K/mm3 (4.4-11.0)
[2017-11-16 15:14] LABS: POSITIVE COUNT NO; POSITIVE DIFFERENTIAL NO; POSITIVE MORPHOLOGY NO
[2017-11-16 15:42] LABS: AST(SGOT) 21 U/L (15-37); Alanine Aminotransfer ALT/SGPT 47 U/L (13-56); Albumin, Serum 3.7 g/dL (3.2-5.0); BUN 19 mg/dL (7-18); Creatinine, Serum 1.22 mg/dL (0.55-1.02); EST Glomerular Filtration Rate 48 mL/min (>60); Est Glom Filt Rate - Afr Amer 58 mL/min (>60)
== END 2017-11-16 15:00 | disposition home or self-care (01) ==
LOC: LAB 13:36
PROVIDERS: Visit Provider Allergy & Immunology
DX: N18.3 Chronic kidney disease, stage 3 (moderate) (principal); T78.2XXD Anaphylactic shock, unspecified, subsequent encounter; Z79.899 Other long term (current) drug therapy
CPT/HCPCS: 36415; 80158; 81002; 82040; 82565; 84450; 84460; 84520; 85025

== ENCOUNTER → 2017-12-22 14:05 | Outpatient (CLI) | payer BC, SELFPAY ==
[2017-12-22 14:50] LABS: Color, Urine Straw (Yellow); Glucose, Dipstick Normal (Normal); Ketone-Dipstick Negative (Negative); Leukocyte Esterase-Dipstick Negative /ul (Negative); Nitrite-Dipstick Negative (Negative); Occult Blood-Urine Negative /ul (Negative); Protein-Dipstick Negative (Negative); Urine Bilirubin Dipstick Negative (Negative); Urine Clarity Clear (Clear); Urine Urobilinogen Normal (Normal)
[2017-12-22 14:58] LABS: Absolute Lymphocyte Count 1.27 X10^3/ul (0.83-4.51); Absolute Neutrophil Count 4.2 X10^3/uL (2.0-7.7); Basophil# 0.04 X10^3/uL; Basophil% 0.6 % (0-1); Eosinophil# 0.16 X10^3/uL; Eosinophils% 2.5 % (0-5); Hematocrit 44.9 % (37-47); Hemoglobin 14.7 g/dl (12.0-15.0); Lymphocyte # 1.27 X10^3/ul (4.0); Lymphocyte % 20.1 % (19-41); Mean Corp Hgb Conc 32.7 g/gl (32-36); Mean Corpuscular Hgb 29.5 pg (27.0-32.0); Mean Corpuscular Volume 90.2 fL (81-99); Mean Platelet Vol. 10.7 fl (6.2-12.0); Monocyte# 0.59 X10^3/uL; Monocyte% 9.4 % (0-10); Neutrophil # 4.24 X10^3/uL (2.7-7.7); Neutrophil % 67.2 % (47-70); Platelet Count 209 K/mm3 (150-450); RBC Distribution Width CV 14.2 % (11.6-14.6); RBC Distribution Width SD 46.8 fl (35.1-43.9); Red Blood Count 4.98 M/mm3 (4.2-5.4); White Blood Count 6.3 K/mm3 (4.4-11.0)
[2017-12-22 15:02] LABS: POSITIVE COUNT NO; POSITIVE DIFFERENTIAL NO; POSITIVE MORPHOLOGY NO
[2017-12-22 15:23] LABS: AST(SGOT) 24 U/L (15-37); Alanine Aminotransfer ALT/SGPT 49 U/L (13-56); BUN 20 mg/dL (7-18); Creatinine, Serum 1.33 mg/dL (0.55-1.02); EST Glomerular Filtration Rate 43 mL/min (>60); Est Glom Filt Rate - Afr Amer 52 mL/min (>60)
[2017-12-24 13:32] LABS: Cyclosporine 29 ng/mL (100-400)
== END ==
PROVIDERS: Visit Provider Allergy & Immunology
DX: T50.905A Adverse effect of unspecified drugs, medicaments and biological substances, initial encounter (principal); Y92.9 Unspecified place or not applicable
CPT/HCPCS: 36415; 80158; 81002; 82565; 84450; 84460; 84520; 85025

== ENCOUNTER 2018-01-23 14:14 | Outpatient (RCR) | payer BC, SELFPAY ==
[2018-01-23 14:39] LABS: Color, Urine Straw (Yellow); Glucose, Dipstick Normal (Normal); Ketone-Dipstick Negative (Negative); Leukocyte Esterase-Dipstick 25 /ul (Negative); Nitrite-Dipstick Negative (Negative); Occult Blood-Urine Negative /ul (Negative); Protein-Dipstick Negative (Negative); Specific Gravity, Urine 1.005 (1.002-1.030); Urine Bilirubin Dipstick Negative (Negative); Urine Clarity Clear (Clear); Urine Urobilinogen Normal (Normal); Urine pH 6.5 (5.0 - 8.0)
[2018-01-23 14:44] LABS: Hematocrit 44.2 % (37-47); Hemoglobin 14.8 g/dl (12.0-15.0); Mean Corp Hgb Conc 33.5 g/gl (32-36); Mean Corpuscular Hgb 29.7 pg (27.0-32.0); Mean Corpuscular Volume 88.8 fL (81-99); Mean Platelet Vol. 10.6 fl (6.2-12.0); Platelet Count 233 K/mm3 (150-450); Red Blood Count 4.98 M/mm3 (4.2-5.4); White Blood Count 8.8 K/mm3 (4.4-11.0)
[2018-01-23 14:46] LABS: Scan Indicated on CBC? Y/N NO
[2018-01-23 15:11] LABS: AST(SGOT) 15 U/L (15-37); Alanine Aminotransfer ALT/SGPT 35 U/L (13-56); Albumin, Serum 3.7 g/dL (3.2-5.0); Alkaline Phosphatase 85 U/L (45-117); BUN 25 mg/dL (7-18); Bilirubin, Direct 0.16 mg/dL (0.00-0.30); Creatinine, Serum 1.26 mg/dL (0.55-1.02); EST Glomerular Filtration Rate 46 mL/min (>60); Est Glom Filt Rate - Afr Amer 55 mL/min (>60); Globulin 3.3 g/dL (2.2-4.2)
== END 2018-01-23 16:00 | disposition home or self-care (01) ==
LOC: LAB 14:14
PROVIDERS: Visit Provider Allergy & Immunology
DX: N18.3 Chronic kidney disease, stage 3 (moderate) (principal); T78.2XXD Anaphylactic shock, unspecified, subsequent encounter; Z79.899 Other long term (current) drug therapy
CPT/HCPCS: 36415; 80076; 80158; 81002; 82565; 84520; 85027

== ENCOUNTER 2018-03-15 13:33 | Outpatient (RCR) | payer BC, SELFPAY ==
[2018-03-15 14:33] LABS: Hematocrit 45.1 % (37-47); Hemoglobin 14.9 g/dl (12.0-15.0); Mean Corpuscular Hgb 29.3 pg (27.0-32.0); Mean Corpuscular Volume 88.6 fL (81-99); Mean Platelet Vol. 10.5 fl (6.2-12.0); Platelet Count 222 K/mm3 (150-450); RBC Distribution Width CV 14.8 % (11.6-14.6); RBC Distribution Width SD 47.9 fl (35.1-43.9); Red Blood Count 5.09 M/mm3 (4.2-5.4); White Blood Count 8.5 K/mm3 (4.4-11.0)
[2018-03-15 14:37] LABS: Scan Indicated on CBC? Y/N NO
[2018-03-15 14:48] LABS: AST(SGOT) 23 U/L (15-37); Alanine Aminotransfer ALT/SGPT 60 U/L (13-56); Albumin, Serum 3.6 g/dL (3.2-5.0); Alkaline Phosphatase 94 U/L (45-117); BUN 17 mg/dL (7-18); Bilirubin, Direct 0.27 mg/dL (0.00-0.30); Creatinine, Serum 1.16 mg/dL (0.55-1.02); EST Glomerular Filtration Rate 50 mL/min (>60); Est Glom Filt Rate - Afr Amer 61 mL/min (>60); Globulin 3.7 g/dL (2.2-4.2); Protein, Total 7.3 g/dL (6.4-8.2); Uric Acid 7.1 mg/dL (2.6-6.0)
[2018-03-15 14:54] LABS: Vitamin D,25 Hydroxy 77.4 ng/mL (29.95-100.01)
[2018-03-15 16:00] LABS: Color, Urine Yellow (Yellow); Glucose, Dipstick Normal (Normal); Ketone-Dipstick Negative (Negative); Leukocyte Esterase-Dipstick Negative /ul (Negative); Nitrite-Dipstick Negative (Negative); Occult Blood-Urine Negative /ul (Negative); Protein-Dipstick Negative (Negative); Specific Gravity, Urine 1.005 (1.002-1.030); Urine Bilirubin Dipstick Negative (Negative); Urine Clarity Clear (Clear); Urine Urobilinogen Normal (Normal)
[2018-03-15 16:22] LABS: Microalbumin,Random Urine 5.8 mg/L (NO RANGE EST.)
[2018-03-16 10:41] LABS: Anion Gap 11 (5-15); BUN/Creat Ratio 14.7 RATIO (10-20); Chloride 104 mmol/L (98-107); Glucose 192 mg/dL (74-106); Phosphorus 2.8 mg/dL (2.5-4.9); Sodium Level 139 mmol/L (136-145)
--- OUTSIDE RECORDS SUMMARY | 2018-05-10 18:12 | XMS RPT_ITS ---
:1955 Author Organization [place] Support Name Relationship Address Phone LIANNE JOSHI Unavailable Unavailable + [place] [address] ROSA JOSHI Unavailable [address] + [place] [address] UE Unavailable Unavailable Unavailable LIANNE JOSHI Unavailable Unavailable + [place] [address] ROSA JOSHI Unavailable [address] + [place] [address] UE Unavailable Unavailable Unavailable LIANNE JOSHI Unavailable Unavailable + [place] [address] ROSA JOSHI Unavailable [address] + [place] [address] UE Unavailable Unavailable Unavailable LIANNE JOSHI Unavailable Unavailable + [place] [address] ROSA JOSHI Unavailable [address] + [place] [address] UE Unavailable Unavailable Unavailable LIANNE JOSHI Unavailable Unavailable + [place] [address] ROSA JOSHI Unavailable [address] + [place] [address] UE Unavailable Unavailable Unavailable LIANNE JOSHI Unavailable 1 + [place] [address] ROSA JOSHI Unavailable [address] + [place] [address] UE Unavailable Unavailable Unavailable LIANNE JOSHI Unavailable 1 + [place] [address] ROSA JOSHI Unavailable [address] + [place] [address] UE Unavailable Unavailable Unavailable LIANNE JOSHI Unavailable 1 + [place] [address] ROAS JOSHI Unavailable [address] + [place] [address] UE Unavailable Unavailable Unavailable LIANNE JOSHI Unavailable 1 + [place] [address] ROSA JOSHI Unavailable [address] + [place] [address] UE Unavailable Unavailable Unavailable LIANNE JOSHI Unavailable 1 + [place] [address] ROSA JOSHI Unavailable [address] + [place] [address] UE Unavailable Unavailable Unavailable LIANNE JOSHI Unavailable 1 + [place] [address] ROSA JOSHI Unavailable [address] + [place] [address] UE Unavailable Unavailable Unavailable LIANNE JOSHI Unavailable Unavailable + [place] [address] ROSA JOSHI Unavailable [address] + [place] [address] UE Unavailable Unavailable Unavailable LIANNE JOSHI Unavailable 1 + [place] [address] ROSA JOSHI Unavailable [address] + [place] [address] UE Unavailable Unavailable Unavailable EZIO JOSHI Unavailable [address] [phone] [place] [address] ROSA JOSHI Unavailable [address] + [place] [address] UE Unavailable Unavailable Unavailable Care Team Providers Name Role Phone JUANJOSE MANZANO Attending Unavailable JUANJOSE MANZANO Referring Unavailable ANISA CALDWELL Primary Care Unavailable KIERAN, DEBASIS H Admitting Unavailable KIERAN, DEBASIS H Attending Unavailable DENNIS ROBERTS Consulting Unavailable JANE MEZA Referring Unavailable PROVIDER, UNKNOWN Attending Unavailable BANG ROBERTS Attending Unavailable MICKEY GRIGGS Referring Unavailable JOVANNA SPENCE (RONN) Referring Unavailable JOVANNA SPENCE (RONN) Referring Unavailable JOVANNA SPENCE (RONN) Attending Unavailable JOVANNA SPENCE (RONN) Referring Unavailable ANNE-MARIE, FANTA E Referring Unavailable NEEL, FRANCESCO Hinojosa (PA-C) Referring Unavailable NEEL, FRANCESCO Hinojosa (PA-C) Referring Unavailable ANNE-MARIE, FANTA E Referring Unavailable ANNE-MARIE, FANTA E Attending Unavailable ANNE-MARIE, FANTA E Referring Unavailable ANNE-MARIE, FANTA E Referring Unavailable EBONIANICETOAury LOPEZ K (CIRCUIT RECORDER) Attending Unavailable BAGGOTT, CELESTINE JOHNSON Attending Unavailable BAGGOTT, CELESTINE JOHNSON Referring Unavailable AGAIBY, SHEREMARIA Attending Unavailable AGAIBY, SHEREMARIA Referring Unavailable AGAIBY, SHEREMARIA Referring Unavailable JOAQUIN KAT Attending Unavailable BAGGOTT, CELESTINE JOHNSON Referring Unavailable HILD, JANE Attending Unavailable AGAIBY, SHEREMARIA Referring Unavailable HARRISISAIAH Attending Unavailable AGAIBY, SHEREMARIA Referring Unavailable HARRISISAIAH Referring Unavailable ANVARI, EVAMARIA Attending Unavailable HOSTOFFERMARTIN Referring Unavailable ANVARI, EVAMARIA Referring Unavailable BAGGOTT, CELESTINE JOHNSON Attending Unavailable BAGGOTT, CELESTINE JOHNSON Referring Unavailable ABELINO MCELROY (CIRCUIT RECORDER) Attending Unavailable BEBEJOVANNA (PA) Attending Unavailable BEBE, JOVANNA (PA) Referring Unavailable BEBE, JOVANNA (PA) Referring Unavailable HILD, JANE Attending Unavailable AGAIBY, SHEREMARIA Referring Unavailable LEMON, TATY (PT) Attending Unavailable HILD, JANE Referring Unavailable HILD, JANE Referring Unavailable LEMON, TATY (PT) Attending Unavailable HILD, JANE Referring Unavailable ANNE-MARIE, FANTA E Attending Unavailable ANNE-MARIE, FANTA E Referring Unavailable HILD, JANE Referring Unavailable LEMON, TATY (PT) Attending Unavailable HILD, JANE Referring Unavailable HILD, JANE Referring Unavailable LEMON, TATY (PT) Attending Unavailable HILD, JANE Referring Unavailable HILD, JANE Referring Unavailable HARRISISAIAH Referring Unavailable LEMON, TATY (PT) Attending Unavailable HILD, JANE Referring Unavailable LEMON, TATY (PT) Attending Unavailable HILD, JANE Referring Unavailable DIDI LAMB Referring Unavailable LEMON, TATY (PT) Attending Unavailable HILD, JANE Referring Unavailable HILD, JANE Referring Unavailable HILD, JANE Referring Unavailable LEMON, TATY (PT) Attending Unavailable HILD, JANE Referring Unavailable HILD, JANE Referring Unavailable HILD, JANE Attending Unavailable AGAIBY, SHEREMARIA Referring Unavailable LEMON, TATY (PT) Attending Unavailable HILD, JANE Referring Unavailable HILD, JANE Referring Unavailable BARBICAABELINO Moss (CIRCUIT RECORDER) Attending Unavailable ABELINO MCELROY (CIRCUIT RECORDER) Referring Unavailable HILD, JANE Referring Unavailable LEMON, TATY (PT) Attending Unavailable HILD, JANE Referring Unavailable HILD, JANE Referring Unavailable BEBE, JOVANNA (PA) Attending Unavailable BEBE, JOVANNA (PA) Referring Unavailable ANVARI, EVAMARIA Attending Unavailable MARTIN BOOTH Referring Unavailable ANVARI, EVAMARIA Referring Unavailable HILD, JANE Attending Unavailable AGAIBY, SHEREMARIA Referring Unavailable LEMON, TATY (PT) Attending Unavailable HILD, JANE Referring Unavailable DIDI LAMB Attending Unavailable LEMON, TATY (PT) Attending Unavailable HILD, JANE Referring Unavailable ANVARI, EVAMARIA Referring Unavailable LEMON, TATY (PT) Attending Unavailable HILD, JANE Referring Unavailable HILD, JANE Referring Unavailable LEMON, TATY (PT) Attending Unavailable HILD, JANE Referring Unavailable ABELINO MCELROY (CIRCUIT RECORDER) Attending Unavailable ABELINO MCELROY (CIRCUIT RECORDER) Referring Unavailable JUANJOSE MANZANO Attending Unavailable JUANJOSE MANZANO Referring Unavailable MARIA FANG (PA) Referring Unavailable JEFFREYIVETTE BOYD Attending Unavailable HILD, JANE Referring Unavailable ANNE-MARIE, FANTA E Attending Unavailable ANNE-MARIE, FANTA E Referring Unavailable FRANCESCO SHAIKH (PA-C) Referring Unavailable JEFFREYIVETTE BOYD Referring Unavailable JEFFREYIVETTE BOYD Attending Unavailable HILD, JANE Referring Unavailable ANNE-MARIE, FANTA E Referring Unavailable OLBRYCH FANTA Attending Unavailable BEBEJOVANNA (PA) Referring Unavailable BEBEJOVANNA (PA) Referring Unavailable BEBEJOVANNA (PA) Referring Unavailable JEFFREYIVETTE COLIN Referring Unavailable KATIA EVANGELISTA Attending Unavailable IVETTE MURPHY Referring Unavailable JEFFREYIVETTE COLIN Referring Unavailable JEFFREYIVETTE COLIN Referring Unavailable VIETTE MURPHY Admitting Unavailable IVETTE MURPHY Attending Unavailable AGAIBY, SHEREMARIA Attending Unavailable AGAIBY, SHEREMARIA Referring Unavailable JEFFREY, IVETTE J Attending Unavailable JEFFREY, IVETTE J Referring Unavailable JEFFREY, IVETTE J Referring Unavailable JEFFREY, IVETTE J Referring Unavailable JEFFREY, IVETTE J Referring Unavailable JEFFREY, IVETTE J Referring Unavailable NEISHA KIRLKAND Admitting Unavailable NEISHA KIRKLAND Attending Unavailable ANVARI, EVAMARIA Referring Unavailable ANNE-MARIE, FANTA E Attending Unavailable FRANCESCO SHAIKH (PA-C) Referring Unavailable JEFFREY, IVETTE J Referring Unavailable JEFFREY, IVETTE J Referring Unavailable JEFFREY, IVETTE J Referring Unavailable JEFFREY, IVETTE J Referring Unavailable ROSENBIANCA REYNAGA Attending Unavailable ANNE-MARIE, FANTA E Referring Unavailable SAIGE FAY (PT) Attending Unavailable IDADAJULIENNE (PA) Referring Unavailable ANVARI, EVAMARIA Attending Unavailable HOSTOFFER, MARTIN W Referring Unavailable DOCTOR, OUT OF TOWN Attending Unavailable Hostoffer, Martin Referring Unavailable LISANDRA AVERY Primary Care Unavailable Hostoffer, Martin Referring Unavailable LISANDRA AVERY Primary Care Unavailable Hostoffer, Martin Attending Unavailable Cebul, Martin Attending Unavailable DOCTOR, OUT OF TOWN Referring Unavailable LISANDRA AVERY Primary Care Unavailable Hostoffer, Martin Attending Unavailable Hostoffer, Martin Referring Unavailable LISANDRA AVERY Primary Care Unavailable LISANDRA AVERY Primary Care Unavailable Hostoffer, Martin Attending Unavailable Hostoffer, Martin Referring Unavailable Hostoffer, Martin Attending Unavailable Hostoffer, Martin Referring Unavailable LISANDRA AVERY Primary Care Unavailable Hostoffer, Martin Attending Unavailable Hostoffer, Martin Referring Unavailable LISANDRA AVERY Primary Care Unavailable Hostoffer, Martin Attending Unavailable Hostoffer, Martin Referring Unavailable LISANDRA AVERY Primary Care Unavailable LISANDRA AVERY Consulting Unavailable Hostoffer, Martin Attending Unavailable Hostoffer, Martin Referring Unavailable LISANDRA AVERY Primary Care Unavailable LISANDRA AVERY Consulting Unavailable Hostoffer, Martin Attending Unavailable Hostoffer, Martin Referring Unavailable LISANDRA AVERY Primary Care Unavailable Hostoffer, Martin Attending Unavailable Hostoffer, Martin Referring Unavailable LISANDRA AVERY Primary Care Unavailable Hostoffer, Martin Attending Unavailable LISANDRA AVERY Primary Care Unavailable Hostoffer, Martin Attending Unavailable Hostoffer, Martin Referring Unavailable LISANDRA AVERY Primary Care Unavailable LISANDRA AVERY Consulting Unavailable HostofferMartin Attending Unavailable HostofferMartin Referring Unavailable LISANDRA AVERY Primary Care Unavailable LISANDRA AVERY Consulting Unavailable PROBLEMS PROBLEMS DATE TYPE CONDITION / CODE ATTENDING STATUS SOURCE 02/27/2018 Active 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[facility], [facility]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 NEISHA [facility] [place] / D35.01(ICD-10) Repository 01/13/2018 Active Peroneal JEFFREYIVETTE Active [facility] tendinitis, left J [facility] [place] leg / Repository M76.72(ICD-10) 01/13/2018 Active Presence of IVETTE MURPHY Active [facility] functional implant, J [facility] [place] unspecified / Repository Z96.9(ICD-10) 02/15/2018 Unknown N18.3 - Chronic Hostoffer, Active [facility] kidney disease, [facility] stage 3 (moderate) Hospital / N18.3(ICD-10) Repository 01/05/2018 Active Other chronic pain NA Active [facility] / G89.29(ICD-10) [facility] [place] Repository 10/20/2016 Active Spinal stenosis, NA Active [facility] cervical region / [facility] [place] M48.02(ICD-10) Repository 09/25/2017 Active Allergy, Unknown Active [facility] unspecified, [facility] [place] initial encounter / Repository T78.40XA(ICD-10) 09/14/2017 Active Other specified NA Active [facility] soft tissue [facility] [place] disorders / Repository M79.89(ICD-10) 09/14/2017 Active Effusion, left foot NA Active [facility] / M25.475(ICD-10) [place] Repository 08/22/2017 Active Encounter for NA Active [facility] screening mammogram [facility] [place] for malignant Repository neoplasm of breast / Z12.31(ICD-10) 07/15/2017 Active Hyperlipidemia, NA Active [facility] unspecified / [facility] [place] E78.5(ICD-10) Repository 05/22/2017 Active Essential (primary) NA Active [facility] hypertension / [facility] [place] I10(ICD-10) Repository 06/26/2017 Active Encounter for NA Active [facility] screening for other [facility] [place] disorder / Repository Z13.89(ICD-10) 06/26/2017 Active Disorder of adrenal NA Active [facility] gland, unspecified [facility] [place] / E27.9(ICD-10) Repository 05/22/2017 Active Pain in left ankle NA Active [facility] and joints of left [facility] [place] foot / Repository M25.572(ICD-10) 05/19/2017 Active Anaphylactic shock, NA Active [facility] unspecified, [facility] [place] subsequent Repository encounter / T78.2XXD(ICD-10) 05/12/2017 Active Unknown / DOTMELANIECELESTINE LEMUS Active [facility] UNK(Unknown) ELIZABETH [facility] [place] Repository 12/12/2017 Unknown T78.2XXD - Hostoffer, Active [facility] Anaphylactic shock, [facility] unspecified, Hospital subsequent Repository encounter / T78.2XXD(ICD-10) 03/31/2017 Active Encounter for other NA Active [facility] preprocedural [facility] [place] examination / Repository Z01.818(ICD-10) 03/31/2017 Active 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, Repository lumbar region / M47.816(ICD-10) 03/20/2014 Active Impaired fasting NA Active [facility] glucose / [facility] [place] R73.01(ICD-10) Repository 04/12/2017 Active Other abnormal NA Active [facility] glucose / [facility] [place] R73.09(ICD-10) Repository 04/12/2017 Active Anemia, unspecified NA Active [facility] / D64.9(ICD-10) [facility] [place] Repository 03/28/2016 Active Moderate persistent KIERAN, DEBASIS Active [facility] asthma, H [facility] [place] uncomplicated / Repository J45.40(ICD-10) 03/28/2016 Active Chronic kidney KIERAN, DEBASIS Active [facility] disease, stage 3 H [facility] [place] (moderate) / Repository N18.3(ICD-10) 04/05/2017 Active Anaphylactic shock, KIERAN, DEBASIS Active [facility] unspecified, H Other [place] initial encounter / Repository T78.2XXA(ICD-10) 04/05/2017 Active Acute respiratory KIERAN, DEBASIS Active [facility] distress / H [facility] [place] R06.03(ICD-10) Repository PROCEDURES PROCEDURES No Procedure Records FoundRESULTS RESULTS URINALYSIS Collected: 03/28/2018 Status: F Source: [place] 2:56 PM [facility] REPOSITORY TYPE CODE TESTS RESULT OUT OF REFERENCE UNITS RANGE LAB UCOL Yellow Color Yellow LAB [facility] Clear Clarity Clear LAB UGLUC Negative mg/dL Glucose, Urine Negative LAB UBIL Negative Bilirubin, Urine Negative LAB UKET Negative Ketones, Urine Negative LAB USPG 1.005-1.030 Specific [place], Ur 1.002 LAB UHGB Negative Hemoglobin/Blood, Negative Ur LAB UPH 4.5-8.0 pH 6.0 LAB UPROT Negative mg/dL Protein, Urine Negative LAB UUROB Normal Urobilinogen Normal LAB UNITR Negative Nitrites Negative LAB ULKEST Negative Leukest Negative LAB UCOM Comments SEE COMMENT Result Comment: Microscopic not warranted LAB UMCOM Urine SEE Compa Comment COMMENT Result Comment: N/A Performed By: #### UA #### [facility] [address] [place] [address] PROGRESS Observed: 03/28/2018 Status: COMPLETED Source: [place] 8:09 AM [facility] REPOSITORY HNO ID: [id number] Author: Saige (Pt) Sumeet Service: (none) Author Type: Physical Therapist Type: Progress Notes Filed: 03/28/2018 8:21 AM Note Text: Episode Visit Count: 1 Therapist That Will Oversee The Plan Of Care: Saige Fay Start of Care Date: 03/27/18 Onset Date: 01/25/18 Patient Identified by Name and Date of : Yes REHABILITATION AND SPORTS THERAPY PHYSICAL THERAPY EVALUATION PLAN OF CARE: Assessment: Ralph Joshi presents following left foot and ankle surgery. 01/25/2018 This included: left foot removal of hardware, calcaneus osteotomy, achilles tendon lengthening, perioneal tenosynovectomy, peroneus brevis tendon repair She presents with impairments of Swelling, decreased ROM and decreased ambulatory and funcitonal status. She has just started with PWB last week and notes some pain in the plantar aspect of heel. This improved with STM of plantar fascia. ROM also improved after retrograde massage. Order for PWB x4 week then WBAT for 4 weeks with ROM. Will clarify if able to advance beyond AROM with physicians office. . She may benefit from skilled therapy services to improve ROM, swelling, gait and function as allowed per physician order. . Prognosis: Excellent Excellent due to: current objective clinical presentation Goals for Episode of Care: created on 03/27/18 through 06/26/18 [place] in home exercise program. Patient will decrease pain rating by 2 points to meet minimal clinical important difference for numeric pain rating scale. Patient will increase active ROM of left ankle to equal right to allow pt to to normalize gait mechanics / gait pattern . Perform ambulation with boot with decreased report of symptoms/pain in 4 weeks. Normal gait. 12 weeks [address]rocal stair negotiation. 12 weeks Planned Interventions, Frequency, and Duration: Current Frequency: 1x/week Duration: 12 weeks Total Number of Visits Planned: 12 Planned Treatment Interventions: Therapeutic exercise;Gait Training;Self-shelter management;Patient/Family/Caregiver Education;Manual therapy PLAN FOR NEXT VISIT: Will continue to monitor ROM, continue with manual techniques. Consider STM to plantar fascia with lacrosse ball Patient demonstrates good understanding of plan of care and treatment. The above goals and plan of care were discussed and agreed upon by patient/family. SUBJECTIVE: Ralph Joshi is a 63 year old female seen today for Rehab following ankle surgery Patient Goals: Return to full function Functional Limitations: walking;stair negotiation;physical activities Prior Level of Function: Independent without limitations Home Environment Home Type: Multi-Level Entry To Home: Ramp Stairs to Bed/Bath with: Unilateral Rail Intake Information: Prescription present Previous Treatment: Exercises per physician ( ROM only) Pain Score: 3/10 Pain Location: ( bottom of heel) Description: Aching Frequency: Continuous Post Treatment Pain Score: 2/10 Pain Location: Heel - Left Post Treatment Pain Description: Sore OBJECTIVE MEASURES WITH LEVEL OF FUNCTION: Ankle Observations Weight Bearing Status: PWB L Ankle Presents with: Swelling;Incision L Incision: lateral incisions as well and incision at calcaneus well healed R Ankle Girth - Figure 8 (cm): ( base toes 9, MT 9 1/2malleoli 10 1/2 calf 17) L Ankle Girth - Figure 8 (cm): (base toes 9 1/2, MT 10 1/2, malleoli 12 calf 16) L Ankle Palpation Tenderness: No tenderness noted Ankle Brace/Support: Boot ( pneumatic) LE AROM R Ankle Dorsiflexion: 10 Degrees R Ankle Plantar Flexion: 40 Degrees R Ankle Inversion: 25 R Ankle Eversion: 15 L Ankle Dorsiflexion: 5 Degrees L Ankle Plantar Flexion: 20 Degrees L Ankle Inversion: 17 L Ankle Eversion: 13 LE Strength L LE Strength: deferred Gait Weight Bearing Status: PWB Gait: Independent Gait Device: Front-wheeled Walker Gait Observation: good pattern for PWB Education: Education Learning Preferences: Demonstration;Explanation;Performance;Printed Materials Barriers: None Learning/educational needs: Plan of Care Education Provided: Yes, see treatment interventions for education provided Education Provided To: Patient Education Mode/Type: Explanation/Discussion;Performance Response to Education/Teach Back: States/Identifies TREATMENT: Evaluation Therapeutic Exercise: 1: active DF/PF 2x10 2: active inversion / eversion 2x10 3: ankle circles CW/CCW 1x10 4: toe curls 2x10 Skilled Intervention: Patient was educated in proper exercise technique and purpose for exercises. Skilled judgment was provided in selection of appropriate interventions. Correct performance of therapeutic exercises was facilitated with verbal and visual cuing. Manual Therapy: Soft Tissue Mobilization: manual retrograde with LE elevated to foot/ ankle and lower leg as well as plantar fascia x15 min. Skilled Intervention: Manual skills to improve joint mobility, ROM, and decrease pain. Utilized anatomy knowledge of the therapist, and assessment of patient's response to intervention. Assigned Home Exercise Program: 1: continue with AROM 6-7 times per day per physician instruction. Billing: [facility]: Evaluation - Low Complexity (25469) Therapeutic Exercise (91068): 1:1 time: 10 minutes (1 unit: 8-22 mins) Manual Therapy (04158): 1:1 time: 15 minutes (1 unit: 8-22 mins) Total time: 45 minutes Saige Fay PT CNTHERAPY Observed: 03/27/2018 Status: COMPLETED Source: [place] 1:15 PM [facility] REPOSITORY OT/PT/Speech Visit (PTWS) RALPH JOSHI ([id number]) 1955 F Date Time Provider Department 03/27/18 1:15 PM SAIGE FAYPT) [facility] Date Time Provider Department Center 03/27/2018 1:15 PM [id number] FAYPT) [facility] Reason for Visit: PT Eval [747] Patient Education [91] Visit Diagnoses:Peroneal tendonitis of left lower extremity [M76.72] Retained orthopedic hardware [Z96.9] Allergies As of Date: 03/27/2018 Noted Allergy Reaction AVOCADO 09/10/2014 10 - Anaphylaxis BANANA 09/10/2014 10 - Anaphylaxis CARBINOXAMINE 09/17/2012 10 - Anaphylaxis YOSELIN SEED 08/28/2013 10 - Anaphylaxis CIPROFLOXACIN 04/11/2014 10 - Anaphylaxis CODEINE 01/12/2012 10 - Anaphylaxis CONTRAST DYE 05/17/2013 10 - Anaphylaxis Comments: To MRI and CT FISH 09/07/2014 10 - Anaphylaxis HYCODAN (HYDROCODONE-HOMATROPINE) 09/08/2011 10 - Anaphylaxis Comments: Face and throat swelling LATEX 01/21/2014 10 - Anaphylaxis IMTIAZ-SYNEPHRINE (PHENYLEPHRINE HCL)09/04/2014 10 - Anaphylaxis Comments: 10% eye drop NICKEL 01/07/2014 2 - Rash 4 - Hives 10 - Anaphylaxis NSAIDS (NON-STEROIDAL ANTI-INFLAM*08/16/2010 14 - Other: See Comments Comments: Kidney function drops; reversible kidney damage. OXYCODONE 08/28/2013 10 - Anaphylaxis PERIACTIN (CYPROHEPTADINE) 09/17/2012 10 - Anaphylaxis PNEUMOCOCCAL VACCINE 10/31/2014 10 - Anaphylaxis SHELLFISH 09/07/2014 10 - Anaphylaxis ZANTAC (RANITIDINE) 09/17/2012 10 - Anaphylaxis ATIVAN (LORAZEPAM) 08/28/2013 14 - Other: See Comments Comments: hallucination BEE STING 10/31/2017 10 - Anaphylaxis BEEF CONTAINING PRODUCTS 09/10/2014 2 - Rash CORN 05/03/2011 14 - Other: See Comments Comments: Feels like an asthma attack. EGGS (EGG) 03/08/2011 2 - Rash 11 - Vomiting EKG LEADS (ADHESIVE) 10/22/2012 2 - Rash Comments: Localized,only under the leads environmental [Other] 06/26/2007 14 - Other: See Comments Comments: Nasal congestion, brings on an asthma attack. INFLUENZA VIRUS VACCINES 10/22/2012 12 - Shortness of Breath LISINOPRIL 04/20/2004 3 - Cough MILK 03/08/2011 2 - Rash 11 - Vomiting MOMETASONE 04/05/2017 10 - Anaphylaxis Comments: Per Dr. Salas she tolerates formoterol (on Breo at home) but is allergic to mometasone. Okayed by him to update. surgical tape [Other] 11/10/2009 2 - Rash 7 - Swelling Comments: Oral rash, swelling of eyes, asthma attacks; per pateint report. XOLAIR (OMALIZUMAB) 04/19/2012 12 - Shortness of Breath Date Reviewed: 03/26/2018 Reviewed by: Saige Linares LPN - Fully Assessed Prescriptions as of 03/27/2018 Sig: ACETAMINOPHEN 500 MG TABLET Take 500 mg by mouth every 8 * ALBUTEROL SULFATE HFA 90 MCG/* Inhale 2 Puffs as instructed * AMLODIPINE 10 MG TABLET Take 1 tablet by mouth once d* ASCORBIC ACID (VITAMIN C) 500* Take 1 tablet by mouth once d* ATORVASTATIN 20 MG TABLET One tab on MWF only AZELASTINE 0.15 % (205.5 MCG)* Use 1 [place] in each nostril t* BENZONATATE 200 MG CAPSULE Take 200 mg by mouth three ti* BUDESONIDE 0.5 MG/2 ML SUSPEN* Use 1 Ampule via nebulizer tw* BUDESONIDE-FORMOTEROL HFA 160* Inhale 2 Puffs as instructed * BUMETANIDE 0.5 MG TABLET Take 1 tablet by mouth once d* CETIRIZINE 10 MG TABLET Take 10 mg by mouth once mary ellen* CHOLESTYRAMINE (WITH SUGAR) 4* Take 1 scoop by mouth once da* COMPOUNDED PRESCRIPTION Please provide patient with n* CRISABOROLE 2 % TOPICAL OINTM* Apply to the hands twice daily CROMOLYN 20 MG/2 ML SOLUTION * Use 2 mL via nebulizer four t* CYANOCOBALAMIN (VIT B-12) 1,0* Take 1 tablet by mouth once d* CYCLOSPORINE MODIFIED 50 MG C* Take 50 mg by mouth twice liam* DIPHENHYDRAMINE 25 MG TABLET Take 1 tablet by mouth every * DIPHENHYDRAMINE 50 MG CAPSULE Take 1 capsule by mouth as di* DOCUSATE SODIUM 100 MG CAPSULE Take 1 capsule by mouth twice* Patient not taking: Reported on 03/26/2018 DOXAZOSIN 4 MG TABLET Take 1 tablet by mouth once d* EPINEPHRINE 0.3 MG/0.3 ML INJ* Inject 0.3 mL intramuscularly* FLUTICASONE 50 MCG/ACTUATION * 1-2 sprays each side qd FLUTICASONE 200 MCG-VILANTERO* Inhale 1 Inhalation as instru* Patient not taking: Reported on 03/26/2018 LACTOBACILLUS RHAMNOSUS GG 10* Take 1 capsule by mouth twice* LANSOPRAZOLE 30 MG CAPSULE,DE* TAKE 1 CAPSULE TWICE A DAY LEVALBUTEROL 1.25 MG/3 ML BRENDA* Use 1 Ampule via nebulizer ev* NITROGLYCERIN 0.4 MG SUBLINGU* DISSOLVE 1 TABLET UNDER THE T* ONDANSETRON HCL 4 MG TABLET Take 1 tablet by mouth every * OSELTAMIVIR 75 MG CAPSULE Take 1 capsule by mouth twice* PIMECROLIMUS 1 % TOPICAL CREAM Apply twice daily to the hands SPIRONOLACTONE 50 MG TABLET Take 1 tablet by mouth twice * TRIAMCINOLONE ACETONIDE 0.1 %* Apply 1 application to affect* TURMERIC ROOT EXTRACT ORAL Take 1 tablet by mouth twice * VITAMIN D2 50,000 UNIT CAPSULE TAKE ONE CAPSULE BY MOUTH ONC* ZAFIRLUKAST 20 MG TABLET Take 1 tablet by mouth twice * Progress Notes: Saige Fay, PT 03/28/2018 8:21 AM Signed Episode Visit Count: 1 Therapist That Will Oversee The Plan Of Care: Saige Fay Start of Care Date: 03/27/18 Onset Date: 01/25/18 Patient Identified by Name and Date of : Yes REHABILITATION AND SPORTS THERAPY PHYSICAL THERAPY EVALUATION PLAN OF CARE: Assessment: Ralph Joshi presents following left foot and ankle surgery. 01/25/2018 This included: left foot removal of hardware, calcaneus osteotomy, achilles tendon lengthening, perioneal tenosynovectomy, peroneus brevis tendon repair She presents with impairments of Swelling, decreased ROM and decreased ambulatory and funcitonal status. She has just started with PWB last week and notes some pain in the plantar aspect of heel. This improved with STM of plantar fascia. ROM also improved after retrograde massage. Order for PWB x4 week then WBAT for 4 weeks with ROM. Will clarify if able to advance beyond AROM with physicians office. . She may benefit from skilled therapy services to improve ROM, swelling, gait and function as allowed per physician order. . Prognosis: Excellent Excellent due to: current objective clinical presentation Goals for Episode of Care: created on 03/27/18 through 06/26/18 [place] in home exercise program. Patient will decrease pain rating by 2 points to meet minimal clinical important difference for numeric pain rating scale. Patient will increase active ROM of left ankle to equal right to allow pt to to normalize gait mechanics / gait pattern . Perform ambulation with boot with decreased report of symptoms/pain in 4 weeks. Normal gait. 12 weeks Reciprocal stair negotiation. 12 weeks Planned Interventions, Frequency, and Duration: Current Frequency: 1x/week Duration: 12 weeks Total Number of Visits Planned: 12 Planned Treatment Interventions: Therapeutic exercise;Gait Training;Self-shelter management;Patient/Family/Caregiver Education;Manual therapy PLAN FOR NEXT VISIT: Will continue to monitor ROM, continue with manual techniques. Consider STM to plantar fascia with lacrosse ball Patient demonstrates good understanding of plan of care and treatment. The above goals and plan of care were discussed and agreed upon by patient/family. SUBJECTIVE: Ralph Joshi is a 63 year old female seen today for Rehab following ankle surgery Patient Goals: Return to full function Functional Limitations: walking;stair negotiation;physical activities Prior Level of Function: Independent without limitations Home Environment Home Type: Multi-Level Entry To Home: Ramp Stairs to Bed/Bath with: Unilateral Rail Intake Information: Prescription present Previous Treatment: Exercises per physician ( ROM only) Pain Score: 3/10 Pain Location: ( bottom of heel) Description: Aching Frequency: Continuous Post Treatment Pain Score: 2/10 Pain Location: Heel - Left Post Treatment Pain Description: Sore OBJECTIVE MEASURES WITH LEVEL OF FUNCTION: Ankle Observations Weight Bearing Status: PWB L Ankle Presents with: Swelling;Incision L Incision: lateral incisions as well and incision at calcaneus well healed R Ankle Girth - Figure 8 (cm): ( base toes 9, MT 9 1/2malleoli 10 1/2 calf 17) L Ankle Girth - Figure 8 (cm): (base toes 9 1/2, MT 10 1/2, malleoli 12 calf 16) L Ankle Palpation Tenderness: No tenderness noted Ankle Brace/Support: Boot ( pneumatic) LE AROM R Ankle Dorsiflexion: 10 Degrees R Ankle Plantar Flexion: 40 Degrees R Ankle Inversion: 25 R Ankle Eversion: 15 L Ankle Dorsiflexion: 5 Degrees L Ankle Plantar Flexion: 20 Degrees L Ankle Inversion: 17 L Ankle Eversion: 13 LE Strength L LE Strength: deferred Gait Weight Bearing Status: PWB Gait: Independent Gait Device: Front-wheeled Walker Gait Observation: good pattern for PWB Education: Education Learning Preferences: Demonstration;Explanation;Performance;Printed Materials Barriers: None Learning/educational needs: Plan of Care Education Provided: Yes, see treatment interventions for education provided Education Provided To: Patient Education Mode/Type: Explanation/Discussion;Performance Response to Education/Teach Back: States/Identifies TREATMENT: Evaluation Therapeutic Exercise: 1: active DF/PF 2x10 2: active inversion / eversion 2x10 3: ankle circles CW/CCW 1x10 4: toe curls 2x10 Skilled Intervention: Patient was educated in proper exercise technique and purpose for exercises. Skilled judgment was provided in selection of appropriate interventions. Correct performance of therapeutic exercises was facilitated with verbal and visual cuing. Manual Therapy: Soft Tissue Mobilization: manual retrograde with LE elevated to foot/ ankle and lower leg as well as plantar fascia x15 min. Skilled Intervention: Manual skills to improve joint mobility, ROM, and decrease pain. Utilized anatomy knowledge of the therapist, and assessment of patient's response to intervention. Assigned Home Exercise Program: 1: continue with AROM 6-7 times per day per physician instruction. Billing: [facility]: Evaluation - Low Complexity ([id number]) Therapeutic Exercise (06029): 1:1 time: 10 minutes (1 unit: 8-22 mins) Manual Therapy (13997): 1:1 time: 15 minutes (1 unit: 8-22 mins) Total time: 45 minutes Saige Fay PT PROGRESS Observed: 03/26/2018 Status: COMPLETED Source: [place] 9:50 AM [facility] REPOSITORY O ID: [id number] Author: Bianca Ann Service: (none) Author Type: Physician Type: Progress Notes Filed: 03/26/2018 7:56 PM Note Text: [facility] Pre-Procedure Note Patient Name: Ralph Joshi SUBJECTIVE: Ralph Joshi is a 63 year old female who presents to [facility] for bilateral C5 diagnostic selective nerve root block. She has been seen by spine health department and had a C5-7 ACDF in 2017 with residual arm pain. They are concerned she has C5 nerve root radiculopathy. This is her first (1) procedure.. The pain is located in the neck and radiates to both upper extremities down to the elbow level. The pain is sharp and shooting in nature and is described as constant. Current pain intensity is 5. Patient denies any contraindications to the procedure including , coagulopathy, infection, recent cerebral/myocardial infarct and hemodynamic instability. 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 The patient has history of anaphylaxis with contrast injection. She received lumbar transforaminal on 08/14/2015 with Omnipaque after premedications (she reports 50 mg IV Benadryl and solumedrol not sure about the dose) Pain medications reviewed: Yes OBJECTIVE: BP 152/84 Pulse 106 Temp 37 ?C (98.6 ?F) (Temporal Artery) Resp 16 Ht 162.6 cm (5' 4) Wt 90.7 kg (200 lb) LMP 08/07/2013 SpO2 96% BMI 34.33 kg/m? Significant changes in the patient's condition since the History and Physical: No INFORMED CONSENT: The procedure, risks, benefits and options were discussed with patient. There are no contraindications to the procedure. The patient expressed understanding and agreed to proceed. The personnel performing the procedure was discussed. I verify that I personally obtained Ralph Joshi's consent prior to the start of the procedure and the signed consent can be found on the patient's chart. Sumaya Wiggins MD March 26, 2018 PROCEDURE:C5 Selective Nerve Root Block DESCRIPTION OF PROCEDURE:The patient was brought to the fluoroscopy suite. IV access was obtained prior to the procedure. The patient was positioned supine on the fluoroscopy table. Continuous hemodynamic monitoring was initiated including blood pressure, EKG, and pulse oximetry. The skin was prepped with hibiclens three times and draped in a sterile fashion. The left C5 neuroforamina was identified on oblique imaging. Skin anesthesia was achieved using 1 mL of lidocaine 1% over the respective injection site. An oblique fluoroscopic view was obtained, with the superior articular process of the inferior vertebral body aligned with the pedicle. The tip of a 25-gauge 2-inch spinal needle was advanced to the posterior articular pillar under intermittent fluoroscopic guidance. The needle was then walked off the articular pillar into the neuroforamina. Confirmation of proper needle position was made with AP and oblique imaging. Contrast was not injected due to the patient having a contrast allergy. Negative aspiration for blood or CSF was confirmed. Then 1 cc of ropivacaine 0.5% was injected incrementally without issue. The procedure was then repeated in asimilar fashion for the right C5 nerve root. SEDATION: none START TIME: 1044 STOP TIME: 1104 Dr. Ann was present during the critical and sam portions of the procedure. Justo Regan,DO March 26, 2018 [facility] Post-Procedure Note Patient name: Ralph Joshi ASSESSMENT: Pre Procedure diagnosis: (M54.12) Radiculopathy, cervical region (primary encounter diagnosis) Post-Procedure diagnosis: same Post Procedure Pain Level: 0 on a scale of 0-10. Postoperative Nausea/Vomiting (PONV): absent Postoperative hydration status: adequate In the recovery area while Ms. Joshi was getting dressed to go home, she began to have a tightening of her throat and pressure in her eyes. 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 We responded immediately to her distress, placed an IV and placed her on monitors. Her breath sounds were clear, but she did have some audible stridor. She was concerned that perhaps there was something in the crystal crackers that she was allergic to. We gave her 10mg of decadron and 25 mg of benadryl IV and monitored her for an additional hour. Her symptoms resolved completely and she was discharged in good condition. She was happy not to have to use her epi-pen. PLAN: - s/p bilateral C5 selective nerve root block with resolution of pain symptoms. - RTC prn for additional injections - The treatment plan was discussed with the patient. Post procedure instructions were reviewed and the patient voiced understanding. Ralph Joshi was discharged to Home. Condition at the time of discharge was Good Justo Karelnitza, March 26, 2018 Teaching Statement I have interviewed and examined the patient and confirm the pertinent findings. I have discussed the case with the resident/fellow and agree with the findings and plan as documented. I certify that I was present during performance of the procedure and supervised all aspects. Bianca Ann MD March 26, 2018 7:54 PM CNOV Observed: 03/26/2018 Status: COMPLETED Source: [place] 9:45 AM [facility] REPOSITORY Office Visit (PAINMN) RALPH JOSHI ([id number]) 1955 F Date Time Provider Department 03/26/18 9:45 AM BIANCA ANN During your visit today, we recorded the following information about you: Temperature Pulse Respiration Blood pressure 98.6 degrees 106/minute 16/minute 152/84 Weight Height 90.7 kg 1.626 m Bianca Ann MD 03/26/2018 7:56 PM Signed [facility] Pre-Procedure Note Patient Name: Ralph Joshi SUBJECTIVE: Ralph Joshi is a 63 year old female who presents to [facility] for bilateral C5 diagnostic selective nerve root block. She has been seen by spine health department and had a C5- 7 ACDF in 2017 with residual arm pain. They are concerned she has C5 nerve root radiculopathy. This is her first (1) procedure.. The pain is located in the neck and radiates to both upper extremities down to the elbow level. The pain is sharp and shooting in nature and is described as constant. Current pain intensity is 5. Patient denies any contraindications to the procedure including , coagulopathy, infection, recent cerebral/myocardial infarct and hemodynamic instability. 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 The patient has history of anaphylaxis with contrast injection. She received lumbar transforaminal on 08/14/2015 with Omnipaque after premedications (she reports 50 mg IV Benadryl and solumedrol not sure about the dose) Pain medications reviewed: Yes OBJECTIVE: BP 152/84 Pulse 106 Temp 37 ?C (98.6 ?F) (Temporal Artery) Resp 16 Ht 162.6 cm (5' 4) Wt 90.7 kg (200 lb) LMP 08/07/2013 SpO2 96% BMI 34.33 kg/m? Significant changes in the patient's condition since the History and Physical: No INFORMED CONSENT: The procedure, risks, benefits and options were discussed with patient. There are no contraindications to the procedure. The patient expressed understanding and agreed to proceed. The personnel performing the procedure was discussed. I verify that I personally obtained Ralph Joshi's consent prior to the start of the procedure and the signed consent can be found on the patient's chart. Sumaya Wiggins MD March 26, 2018 PROCEDURE:C5 Selective Nerve Root Block DESCRIPTION OF PROCEDURE:The patient was brought to the fluoroscopy suite. IV access was obtained prior to the procedure. The patient was positioned supine on the fluoroscopy table. Continuous hemodynamic monitoring was initiated including blood pressure, EKG, and pulse oximetry. The skin was prepped with hibiclens three times and draped in a sterile fashion. The left C5 neuroforamina was identified on oblique imaging. Skin anesthesia was achieved using 1 mL of lidocaine 1% over the respective injection site. An oblique fluoroscopic view was obtained, with the superior articular process of the inferior vertebral body aligned with the pedicle. The tip of a 25-gauge 2-inch spinal needle was advanced to the posterior articular pillar under intermittent fluoroscopic guidance. The needle was then walked off the articular pillar into the neuroforamina. Confirmation of proper needle position was made with AP and oblique imaging. Contrast was not injected due to the patient having a contrast allergy. Negative aspiration for blood or CSF was confirmed. Then 1 cc of ropivacaine 0.5% was injected incrementally without issue. The procedure was then repeated in asimilar fashion for the right C5 nerve root. SEDATION: none START TIME: 1044 STOP TIME: 1104 Dr. Ann was present during the critical and sam portions of the procedure. Justo Regan DO March 26, 2018 [facility] Post-Procedure Note Patient name: Ralph Joshi ASSESSMENT: Pre Procedure diagnosis: (M54.12) Radiculopathy, cervical region (primary encounter diagnosis) Post-Procedure diagnosis: same Post Procedure Pain Level: 0 on a scale of 0-10. Postoperative Nausea/Vomiting (PONV): absent Postoperative hydration status: adequate In the recovery area while Ms. Joshi was getting dressed to go home, she began to have a tightening of her throat and pressure in her eyes. 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 We responded immediately to her distress, placed an IV and placed her on monitors. Her breath sounds were clear, but she did have some audible stridor. She was concerned that perhaps there was something in the crystal crackers that she was allergic to. We gave her 10mg of decadron and 25 mg of benadryl IV and monitored her for an additional hour. Her symptoms resolved completely and she was discharged in good condition. She was happy not to have to use her epi-pen. PLAN: - s/p bilateral C5 selective nerve root block with resolution of pain symptoms. - RTC prn for additional injections - The treatment plan was discussed with the patient. Post procedure instructions were reviewed and the patient voiced understanding. Ralph Joshi was discharged to Home. Condition at the time of discharge was Good Justo Regan DO March 26, 2018 Teaching Statement I have interviewed and examined the patient and confirm the pertinent findings. I have discussed the case with the resident/fellow and agree with the findings and plan as documented. I certify that I was present during performance of the procedure and supervised all aspects. Bianca Ann MD March 26, 2018 7:54 PM Referring Provider: FANTA COKER [[id number]] Allergies As of Date: 03/26/2018 Noted Allergy Reaction AVOCADO 09/10/2014 10 - Anaphylaxis BANANA 09/10/2014 10 - Anaphylaxis CARBINOXAMINE 09/17/2012 10 - Anaphylaxis YOSELIN SEED 08/28/2013 10 - Anaphylaxis CIPROFLOXACIN 04/11/2014 10 - Anaphylaxis CODEINE 01/12/2012 10 - Anaphylaxis CONTRAST DYE 05/17/2013 10 - Anaphylaxis Comments: To MRI and CT FISH 09/07/2014 10 - Anaphylaxis HYCODAN (HYDROCODONE-HOMATROPINE) 09/08/2011 10 - Anaphylaxis Comments: Face and throat swelling LATEX 01/21/2014 10 - Anaphylaxis IMTAIZ-SYNEPHRINE (PHENYLEPHRINE HCL)09/04/2014 10 - Anaphylaxis Comments: 10% eye drop NICKEL 01/07/2014 2 - Rash 4 - Hives 10 - Anaphylaxis NSAIDS (NON-STEROIDAL ANTI-INFLAM*08/16/2010 14 - Other: See Comments Comments: Kidney function drops; reversible kidney damage. OXYCODONE 08/28/2013 10 - Anaphylaxis PERIACTIN (CYPROHEPTADINE) 09/17/2012 10 - Anaphylaxis PNEUMOCOCCAL VACCINE 10/31/2014 10 - Anaphylaxis SHELLFISH 09/07/2014 10 - Anaphylaxis ZANTAC (RANITIDINE) 09/17/2012 10 - Anaphylaxis ATIVAN (LORAZEPAM) 08/28/2013 14 - Other: See Comments Comments: hallucination BEE STING 10/31/2017 10 - Anaphylaxis BEEF CONTAINING PRODUCTS 09/10/2014 2 - Rash CORN 05/03/2011 14 - Other: See Comments Comments: Feels like an asthma attack. EGGS (EGG) 03/08/2011 2 - Rash 11 - Vomiting EKG LEADS (ADHESIVE) 10/22/2012 2 - Rash Comments: Localized,only under the leads environmental [Other] 06/26/2007 14 - Other: See Comments Comments: Nasal congestion, brings on an asthma attack. INFLUENZA VIRUS VACCINES 10/22/2012 12 - Shortness of Breath LISINOPRIL 04/20/2004 3 - Cough MILK 03/08/2011 2 - Rash 11 - Vomiting MOMETASONE 04/05/2017 10 - Anaphylaxis Comments: Per Dr. Salas she tolerates formoterol (on Breo at home) but is allergic to mometasone. Okayed by him to update. surgical tape [Other] 11/10/2009 2 - Rash 7 - Swelling Comments: Oral rash, swelling of eyes, asthma attacks; per pateint report. XOLAIR (OMALIZUMAB) 04/19/2012 12 - Shortness of Breath Date Reviewed: 03/26/2018 Reviewed by: Saige Linares LPN - Fully Assessed Reason for Visit: Procedure [88] Medication Update [1676] Primary Visit Diagnosis:Radiculopathy, cervical region [M54.12] Prescriptions as of 03/26/2018 Sig: BUDESONIDE-FORMOTEROL HFA 160* Inhale 2 Puffs as instructed * DIPHENHYDRAMINE 50 MG CAPSULE Take 1 capsule by mouth as di* VITAMIN D2 50,000 UNIT CAPSULE TAKE ONE CAPSULE BY MOUTH ONC* CROMOLYN 20 MG/2 ML SOLUTION * Use 2 mL via nebulizer four t* LEVALBUTEROL 1.25 MG/3 ML BRENDA* Use 1 Ampule via nebulizer ev* FLUTICASONE 50 MCG/ACTUATION * 1-2 sprays each side qd BUDESONIDE 0.5 MG/2 ML SUSPEN* Use 1 Ampule via nebulizer tw* AZELASTINE 0.15 % (205.5 MCG)* Use 1 [place] in each nostril t* ACETAMINOPHEN 500 MG TABLET Take 500 mg by mouth every 8 * NITROGLYCERIN 0.4 MG SUBLINGU* DISSOLVE 1 TABLET UNDER THE T* TRIAMCINOLONE ACETONIDE 0.1 %* Apply 1 application to affect* DOXAZOSIN 4 MG TABLET Take 1 tablet by mouth once d* AMLODIPINE 10 MG TABLET Take 1 tablet by mouth once d* EPINEPHRINE 0.3 MG/0.3 ML INJ* Inject 0.3 mL intramuscularly* DIPHENHYDRAMINE 25 MG TABLET Take 1 tablet by mouth every * PREGABALIN 150 MG CAPSULE Take 1 capsule by mouth twice* ATORVASTATIN 20 MG TABLET One tab on MWF only SPIRONOLACTONE 50 MG TABLET Take 1 tablet by mouth twice * LANSOPRAZOLE 30 MG CAPSULE,DE* TAKE 1 CAPSULE TWICE A DAY BUMETANIDE 0.5 MG TABLET Take 1 tablet by mouth once d* ALBUTEROL SULFATE HFA 90 MCG/* Inhale 2 Puffs as instructed * CHOLESTYRAMINE (WITH SUGAR) 4* Take 1 scoop by mouth once da* CYANOCOBALAMIN (VIT B-12) 1,0* Take 1 tablet by mouth once d* TURMERIC ROOT EXTRACT ORAL Take 1 tablet by mouth twice * CRISABOROLE 2 % TOPICAL OINTM* Apply to the hands twice daily CETIRIZINE 10 MG TABLET Take 10 mg by mouth once mary ellen* PIMECROLIMUS 1 % TOPICAL CREAM Apply twice daily to the hands ONDANSETRON HCL 4 MG TABLET Take 1 tablet by mouth every * BENZONATATE 200 MG CAPSULE Take 200 mg by mouth three ti* LACTOBACILLUS RHAMNOSUS GG 10* Take 1 capsule by mouth twice* ZAFIRLUKAST 20 MG TABLET Take 1 tablet by mouth twice * CYCLOSPORINE MODIFIED 50 MG C* Take 50 mg by mouth twice liam* ASCORBIC ACID (VITAMIN C) 500* Take 1 tablet by mouth once d* DOCUSATE SODIUM 100 MG CAPSULE Take 1 capsule by mouth twice* Patient not taking: Reported on 03/26/2018 ASPIRIN 325 MG TABLET,DELAYED* Take 1 tablet by mouth once d* FLUTICASONE 200 MCG-VILANTERO* Inhale 1 Inhalation as instru* Patient not taking: Reported on 03/26/2018 OSELTAMIVIR 75 MG CAPSULE Take 1 capsule by mouth twice* PREGABALIN 150 MG CAPSULE Take 1 capsule by mouth twice* COMPOUNDED PRESCRIPTION Please provide patient with n* Problem List As Of Date 03/26/2018 Noted Resolved JOINT PAIN-ANKLE [M25.579] INVALID FOR*03/20/2014 Edema [R60.9] INVALID FOR*03/28/2016 Adrenal nodule (HCC) [E27.9] INVALID FOR* More... Diarrhea [R19.7] INVALID FOR*10/15/2013 Excessive or frequent menstruation [N92.0] INVALID FOR*07/14/2011 Shortness of breath [R06.02] INVALID FOR*10/15/2013 Palpitations [R00.2] INVALID FOR*03/20/2014 Tachycardia, unspecified [R00.0] INVALID FOR*10/15/2013 More... Open wound site NOS [T14.8XXA] INVALID FOR*07/16/2011 Abdominal pain, right upper quadrant [R10.11] INVALID FOR*07/14/2011 More... Acute gastritis without mention of hemorrhage [*INVALID FOR*10/15/2013 Hematuria [599.7] INVALID FOR*07/14/2011 URGE INCONTINENCE [N39.41] INVALID FOR* FEMALE STRESS INCONTINENCE [N39.3] INVALID FOR* Scar, hypertrophic [L91.0] INVALID FOR*10/15/2013 Ovarian cyst [N83.209] INVALID FOR*07/06/2010 Cyst INVALID FOR*10/15/2013 Other specified pre-operative examination [Z01.*INVALID FOR*07/16/2011 Hirsutism [L68.0] INVALID FOR* Dysphagia [R13.10] INVALID FOR*03/20/2014 GERD (gastroesophageal reflux disease) [K21.9] INVALID FOR* More... 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 Obesity (BMI 30.0-34.9) [E66.9] INVALID FOR* More... More... More... More... Idiopathic anaphylaxis [T78.2XXA] INVALID FOR* More... Urticaria, idiopathic [L50.1] INVALID FOR*03/28/2016 More... Hyperlipidemia LDL goal <100 [E78.5] INVALID FOR* Impaired fasting glucose [R73.01] INVALID FOR* Recurrent chest pain [R07.9, G89.29] INVALID FOR*12/09/2014 Multinodular goiter [E04.2] INVALID FOR* More... CKD (chronic kidney disease) stage 3, GFR 30-59*INVALID FOR* Pain in joint, ankle and foot [M25.579] INVALID FOR*12/09/2014 More... More... Steroid-induced hyperglycemia [R73.9, T38.0X5A] INVALID FOR*03/28/2016 Moderate persistent asthma without complication*INVALID FOR* Ulcerative colitis without complications (HCC) *INVALID FOR* Anaphylaxis [T78.2XXA] INVALID FOR*03/26/2015 More... Neck pain, bilateral [M54.2] INVALID FOR*03/28/2016 Essential hypertension with goal blood pressure*INVALID FOR*03/28/2016 Chronic nausea [R11.0] INVALID FOR* Lumbar radiculitis [M54.16] INVALID FOR*03/28/2016 Lumbar stenosis [M48.061] INVALID FOR*03/28/2016 Acquired spondylolisthesis [M43.10] INVALID FOR*03/28/2016 Cervical radiculitis [M54.12] INVALID FOR*03/28/2016 Cervical spondylosis with radiculopathy [M47.22]INVALID FOR*03/29/2017 Shoulder impingement [M75.40] INVALID FOR*03/28/2016 Anaphylaxis [T78.2XXA] INVALID FOR*03/28/2016 Tendonitis, tibialis [M76.829] INVALID FOR*05/09/2016 Lumbar stenosis [M48.061] INVALID FOR* Cervical radiculitis [M54.12] INVALID FOR*03/29/2017 Cervical herniated disc [M50.20] INVALID FOR*03/29/2017 Cervical stenosis of spine [M48.02] INVALID FOR* Cervical spondylosis with myelopathy [M47.12] INVALID FOR*03/29/2017 Cervical myelopathy (HCC) [G95.9] INVALID FOR*03/29/2017 Claustrophobia [F40.240] INVALID FOR* Ptosis of eyelid, bilateral [H02.403] INVALID FOR*03/29/2017 More... Lumbar spondylosis [M47.816] INVALID FOR* More... Preop testing [Z01.818] INVALID FOR* More... Anaphylaxis [T78.2XXA] INVALID FOR* Essential hypertension [I10] INVALID FOR* Peroneal tendinitis, left [M76.72] INVALID FOR* Retained orthopedic hardware [Z96.9] INVALID FOR* More... Peroneal tendonitis of left lower extremity [M7*INVALID FOR* More... Disposition: Return if symptoms worsen or fail to improve. Follow-up and Disposition History Recorded Encounter Status:Closed by BIANCA ANN MD on 03/26/18 CNCNPATED Observed: 03/26/2018 Status: COMPLETED Source: [place] 12:00 AM [facility] REPOSITORY Education (PAINMN) RALPH JOSHI ([id number]) 1955 F Date Time Provider Department 03/26/18 BIANCA ANN Reason for Visit: Patient Education [91] Visit Notes: >> Mekhi Dustin GARCIA Mon Mar 26, 2018 1:15 PM Status: Signed AMBULATORY PATIENT EDUCATION NOTE READINESS TO LEARN COGNITIVE ABILITY: Alert and oriented MOTIVATION TO LEARN: Interested FAMILY SUPPORT: None - Unavailable/disinterested INSTRUCTION PROVIDED TO: Patient PATIENT LEARNS BEST BY: Individual Instruction FACTORS AFFECTING LEARNING: None PHYSICAL LIMITATIONS AFFECTING LEARNING: None LEARNING RESPONSE DIAGNOSIS: pain EDUCATION TOPIC/ TEACHING POINTS: Procedure / Surgery: Cervical Selective Root Block METHOD OF INSTRUCTION: Individual instruction PATIENT / FAMILY RESPONSE: Verbalizes understanding of: INFECTION MANAGEMENT-Signs and symptoms of an infection and importance of contacting the physician FOLLOW-UP PLAN: Complete - No need for follow-up SUPPLEMENTAL MATERIAL: Procedure discharge instructions REFERRAL (RECOMMENDATION): None Electronically Signed By Mekhi Chan LPN In Department: PAIN MANAGEMENT During your visit today, we recorded the following information about you: Allergies As of Date: 03/26/2018 Noted Allergy Reaction AVOCADO 09/10/2014 10 - Anaphylaxis BANANA 09/10/2014 10 - Anaphylaxis CARBINOXAMINE 09/17/2012 10 - Anaphylaxis YOSELIN SEED 08/28/2013 10 - Anaphylaxis CIPROFLOXACIN 04/11/2014 10 - Anaphylaxis CODEINE 01/12/2012 10 - Anaphylaxis CONTRAST DYE 05/17/2013 10 - Anaphylaxis Comments: To MRI and CT FISH 09/07/2014 10 - Anaphylaxis HYCODAN (HYDROCODONE-HOMATROPINE) 09/08/2011 10 - Anaphylaxis Comments: Face and throat swelling LATEX 01/21/2014 10 - Anaphylaxis IMTIAZ-SYNEPHRINE (PHENYLEPHRINE HCL)09/04/2014 10 - Anaphylaxis Comments: 10% eye drop NICKEL 01/07/2014 2 - Rash 4 - Hives 10 - Anaphylaxis NSAIDS (NON-STEROIDAL ANTI-INFLAM*08/16/2010 14 - Other: See Comments Comments: Kidney function drops; reversible kidney damage. OXYCODONE 08/28/2013 10 - Anaphylaxis PERIACTIN (CYPROHEPTADINE) 09/17/2012 10 - Anaphylaxis PNEUMOCOCCAL VACCINE 10/31/2014 10 - Anaphylaxis SHELLFISH 09/07/2014 10 - Anaphylaxis ZANTAC (RANITIDINE) 09/17/2012 10 - Anaphylaxis ATIVAN (LORAZEPAM) 08/28/2013 14 - Other: See Comments Comments: hallucination BEE STING 10/31/2017 10 - Anaphylaxis BEEF CONTAINING PRODUCTS 09/10/2014 2 - Rash CORN 05/03/2011 14 - Other: See Comments Comments: Feels like an asthma attack. EGGS (EGG) 03/08/2011 2 - Rash 11 - Vomiting EKG LEADS (ADHESIVE) 10/22/2012 2 - Rash Comments: Localized,only under the leads environmental [Other] 06/26/2007 14 - Other: See Comments Comments: Nasal congestion, brings on an asthma attack. INFLUENZA VIRUS VACCINES 10/22/2012 12 - Shortness of Breath LISINOPRIL 04/20/2004 3 - Cough MILK 03/08/2011 2 - Rash 11 - Vomiting MOMETASONE 04/05/2017 10 - Anaphylaxis Comments: Per Dr. Salas she tolerates formoterol (on Breo at home) but is allergic to mometasone. Okayed by him to update. surgical tape [Other] 11/10/2009 2 - Rash 7 - Swelling Comments: Oral rash, swelling of eyes, asthma attacks; per pateint report. XOLAIR (OMALIZUMAB) 04/19/2012 12 - Shortness of Breath Date Reviewed: 03/26/2018 Reviewed by: Saige Linares LPN - Fully Assessed Prescriptions as of 03/26/2018 Sig: BUDESONIDE-FORMOTEROL HFA 160* Inhale 2 Puffs as instructed * DIPHENHYDRAMINE 50 MG CAPSULE Take 1 capsule by mouth as di* VITAMIN D2 50,000 UNIT CAPSULE TAKE ONE CAPSULE BY MOUTH ONC* DOCUSATE SODIUM 100 MG CAPSULE Take 1 capsule by mouth twice* Patient not taking: Reported on 03/26/2018 ASPIRIN 325 MG TABLET,DELAYED* Take 1 tablet by mouth once d* CROMOLYN 20 MG/2 ML SOLUTION * Use 2 mL via nebulizer four t* LEVALBUTEROL 1.25 MG/3 ML BRENDA* Use 1 Ampule via nebulizer ev* FLUTICASONE 50 MCG/ACTUATION * 1-2 sprays each side qd BUDESONIDE 0.5 MG/2 ML SUSPEN* Use 1 Ampule via nebulizer tw* AZELASTINE 0.15 % (205.5 MCG)* Use 1 Wilberforce in each nostril t* FLUTICASONE 200 MCG-VILANTERO* Inhale 1 Inhalation as instru* Patient not taking: Reported on 03/26/2018 OSELTAMIVIR 75 MG CAPSULE Take 1 capsule by mouth twice* ACETAMINOPHEN 500 MG TABLET Take 500 mg by mouth every 8 * NITROGLYCERIN 0.4 MG SUBLINGU* DISSOLVE 1 TABLET UNDER THE T* TRIAMCINOLONE ACETONIDE 0.1 %* Apply 1 application to affect* DOXAZOSIN 4 MG TABLET Take 1 tablet by mouth once d* AMLODIPINE 10 MG TABLET Take 1 tablet by mouth once d* EPINEPHRINE 0.3 MG/0.3 ML INJ* Inject 0.3 mL intramuscularly* DIPHENHYDRAMINE 25 MG TABLET Take 1 tablet by mouth every * PREGABALIN 150 MG CAPSULE Take 1 capsule by mouth twice* PREGABALIN 150 MG CAPSULE Take 1 capsule by mouth twice* ATORVASTATIN 20 MG TABLET One tab on MWF only SPIRONOLACTONE 50 MG TABLET Take 1 tablet by mouth twice * LANSOPRAZOLE 30 MG CAPSULE,DE* TAKE 1 CAPSULE TWICE A DAY BUMETANIDE 0.5 MG TABLET Take 1 tablet by mouth once d* ALBUTEROL SULFATE HFA 90 MCG/* Inhale 2 Puffs as instructed * CHOLESTYRAMINE (WITH SUGAR) 4* Take 1 scoop by mouth once da* CYANOCOBALAMIN (VIT B-12) 1,0* Take 1 tablet by mouth once d* TURMERIC ROOT EXTRACT ORAL Take 1 tablet by mouth twice * CRISABOROLE 2 % TOPICAL OINTM* Apply to the hands twice daily COMPOUNDED PRESCRIPTION Please provide patient with n* CETIRIZINE 10 MG TABLET Take 10 mg by mouth once mary ellen* PIMECROLIMUS 1 % TOPICAL CREAM Apply twice daily to the hands ONDANSETRON HCL 4 MG TABLET Take 1 tablet by mouth every * BENZONATATE 200 MG CAPSULE Take 200 mg by mouth three ti* LACTOBACILLUS RHAMNOSUS GG 10* Take 1 capsule by mouth twice* ZAFIRLUKAST 20 MG TABLET Take 1 tablet by mouth twice * CYCLOSPORINE MODIFIED 50 MG C* Take 50 mg by mouth twice liam* ASCORBIC ACID (VITAMIN C) 500* Take 1 tablet by mouth once d* Encounter Status:Closed by MEKHI CHAN LPN on 03/26/18 PROGRESS Observed: 03/21/2018 Status: COMPLETED Source: [place] 12:44 PM [facility] REPOSITORY HNO ID: [id number] Author: Hermelinda MinorRn) JONATHAN Galo Service: (none) Author Type: Registered Nurse Type: Progress Notes Filed: 03/21/2018 12:44 PM Note Text: See nursing note. Hermelinda Galo RN CNNURSE Observed: 03/21/2018 Status: COMPLETED Source: [place] 11:00 AM [facility] REPOSITORY Nurse Visit (ORFTMN) RALPH JOSHI ([id number]) 1955 F Date Time Provider Department 03/21/18 11:00 AM HERMELINDA GALO (RN) ORFTMN During your visit today, we recorded the following information about you: Hermelinda Galo RN, RN 03/21/2018 12:44 PM Signed Under the direction and supervision of Dr. Murphy, Ralph Joshi is seen today 7 weeks post operative from Her: 1. ?Left foot removal of hardware 2. ?Left foot calcaneus osteotomy. 3. Left achilles tendon lengthening. 4. Left peroneal tenosynovectomy. 5. Left peroneus brevis tendon repair done on . Boot removed and incision(s) examined. Incision healed. Ralph had a new x-ray today which was reviewed by Dr. Murphy. Into boot in She will progress to partial WB n boot with two crutches for assist X 4 weeks then WBAT in boot X 4 weeks. Ralph Joshi will continue to take ASA 325 mg daily and elevate above heart level as needed. Return to clinic in [address] Murphy for x-ray left foot 3 views NWB out of boot and progress check. SUBJECTIVE: ORTH CARE COORDINATION POST OPERATIVE NURSE VISIT Patient has been identified by name and date of : Yes Patient is accompanied by: Friend Surgery: 1. ?Left foot removal of hardware 2. ?Left foot calcaneus osteotomy. 3. Left achilles tendon lengthening. 4. Left peroneal tenosynovectomy. 5. Left peroneus brevis tendon repair. Date of Surgery: January 25, 2018 Activity? Partial WB in boot X 4 weeks then WBAT in boot X 4 weeks Incision? healed Follow up Appointment? 8 weeks Patient aware of goals, to return to ADL's, Yes. Any barriers to achieving goal? No PAIN EVALUATION No data found. Medication Update: Yes: Date: March 21, 2018 JONATHAN Mackenzie RN, RN 03/21/2018 12:44 PM Signed See nursing note. Hermelinda Galo RN Referring Provider: IVETTE MURPHY [[id number]] Allergies As of Date: 03/21/2018 Noted Allergy Reaction AVOCADO 09/10/2014 10 - Anaphylaxis BANANA 09/10/2014 10 - Anaphylaxis CARBINOXAMINE 09/17/2012 10 - Anaphylaxis YOSELIN SEED 08/28/2013 10 - Anaphylaxis CIPROFLOXACIN 04/11/2014 10 - Anaphylaxis CODEINE 01/12/2012 10 - Anaphylaxis CONTRAST DYE 05/17/2013 10 - Anaphylaxis Comments: To MRI and CT FISH 09/07/2014 10 - Anaphylaxis HYCODAN (HYDROCODONE-HOMATROPINE) 09/08/2011 10 - Anaphylaxis Comments: Face and throat swelling LATEX 01/21/2014 10 - Anaphylaxis IMTIAZ-SYNEPHRINE (PHENYLEPHRINE HCL)09/04/2014 10 - Anaphylaxis Comments: 10% eye drop NICKEL 01/07/2014 2 - Rash 4 - Hives 10 - Anaphylaxis NSAIDS (NON-STEROIDAL ANTI-INFLAM*08/16/2010 14 - Other: See Comments Comments: Kidney function drops; reversible kidney damage. OXYCODONE 08/28/2013 10 - Anaphylaxis PERIACTIN (CYPROHEPTADINE) 09/17/2012 10 - Anaphylaxis PNEUMOCOCCAL VACCINE 10/31/2014 10 - Anaphylaxis SHELLFISH 09/07/2014 10 - Anaphylaxis ZANTAC (RANITIDINE) 09/17/2012 10 - Anaphylaxis ATIVAN (LORAZEPAM) 08/28/2013 14 - Other: See Comments Comments: hallucination BEE STING 10/31/2017 10 - Anaphylaxis BEEF CONTAINING PRODUCTS 09/10/2014 2 - Rash CORN 05/03/2011 14 - Other: See Comments Comments: Feels like an asthma attack. EGGS (EGG) 03/08/2011 2 - Rash 11 - Vomiting EKG LEADS (ADHESIVE) 10/22/2012 2 - Rash Comments: Localized,only under the leads environmental [Other] 06/26/2007 14 - Other: See Comments Comments: Nasal congestion, brings on an asthma attack. INFLUENZA VIRUS VACCINES 10/22/2012 12 - Shortness of Breath LISINOPRIL 04/20/2004 3 - Cough MILK 03/08/2011 2 - Rash 11 - Vomiting MOMETASONE 04/05/2017 10 - Anaphylaxis Comments: Per Dr. Salas she tolerates formoterol (on Breo at home) but is allergic to mometasone. Okayed by him to update. surgical tape [Other] 11/10/2009 2 - Rash 7 - Swelling Comments: Oral rash, swelling of eyes, asthma attacks; per pateint report. XOLAIR (OMALIZUMAB) 04/19/2012 12 - Shortness of Breath Date Reviewed: 03/21/2018 Reviewed by: Hermelinda (Rn) JONATHAN Galo - Fully Assessed Reason for Visit: Post Op [174] Cmt: 1. ?Left foot removal of hardware Primary Visit Diagnosis:Retained orthopedic hardware [Z96.9] Other Visit Diagnoses:Peroneal tendinitis, left [M76.72] Urge incontinence [N39.41] Order(s):XR FOOT GENERAL 3V AP/LAT/OBL LT [[id number]] Order #: [id number] FUTURE Prescriptions as of 03/21/2018 Sig: DIPHENHYDRAMINE 50 MG CAPSULE Take 1 capsule by mouth as di* VITAMIN D2 50,000 UNIT CAPSULE TAKE ONE CAPSULE BY MOUTH ONC* DOCUSATE SODIUM 100 MG CAPSULE Take 1 capsule by mouth twice* ASPIRIN 325 MG TABLET,DELAYED* Take 1 tablet by mouth once d* CROMOLYN 20 MG/2 ML SOLUTION * Use 2 mL via nebulizer four t* LEVALBUTEROL 1.25 MG/3 ML BRENDA* Use 1 Ampule via nebulizer ev* FLUTICASONE 50 MCG/ACTUATION * 1-2 sprays each side qd BUDESONIDE 0.5 MG/2 ML SUSPEN* Use 1 Ampule via nebulizer tw* AZELASTINE 0.15 % (205.5 MCG)* Use 1 Wilberforce in each nostril t* FLUTICASONE 200 MCG-VILANTERO* Inhale 1 Inhalation as instru* OSELTAMIVIR 75 MG CAPSULE Take 1 capsule by mouth twice* ACETAMINOPHEN 500 MG TABLET Take 500 mg by mouth every 8 * NITROGLYCERIN 0.4 MG SUBLINGU* DISSOLVE 1 TABLET UNDER THE T* TRIAMCINOLONE ACETONIDE 0.1 %* Apply 1 application to affect* DOXAZOSIN 4 MG TABLET Take 1 tablet by mouth once d* AMLODIPINE 10 MG TABLET Take 1 tablet by mouth once d* EPINEPHRINE 0.3 MG/0.3 ML INJ* Inject 0.3 mL intramuscularly* DIPHENHYDRAMINE 25 MG TABLET Take 1 tablet by mouth every * PREGABALIN 150 MG CAPSULE Take 1 capsule by mouth twice* PREGABALIN 150 MG CAPSULE Take 1 capsule by mouth twice* ATORVASTATIN 20 MG TABLET One tab on MWF only SPIRONOLACTONE 50 MG TABLET Take 1 tablet by mouth twice * LANSOPRAZOLE 30 MG CAPSULE,DE* TAKE 1 CAPSULE TWICE A DAY BUMETANIDE 0.5 MG TABLET Take 1 tablet by mouth once d* ALBUTEROL SULFATE HFA 90 MCG/* Inhale 2 Puffs as instructed * CHOLESTYRAMINE (WITH SUGAR) 4* Take 1 scoop by mouth once da* CYANOCOBALAMIN (VIT B-12) 1,0* Take 1 tablet by mouth once d* TURMERIC ROOT EXTRACT ORAL Take 1 tablet by mouth twice * CRISABOROLE 2 % TOPICAL OINTM* Apply to the hands twice daily COMPOUNDED PRESCRIPTION Please provide patient with n* CETIRIZINE 10 MG TABLET Take 10 mg by mouth once mary ellen* PIMECROLIMUS 1 % TOPICAL CREAM Apply twice daily to the hands ONDANSETRON HCL 4 MG TABLET Take 1 tablet by mouth every * BENZONATATE 200 MG CAPSULE Take 200 mg by mouth three ti* LACTOBACILLUS RHAMNOSUS GG 10* Take 1 capsule by mouth twice* ZAFIRLUKAST 20 MG TABLET Take 1 tablet by mouth twice * CYCLOSPORINE MODIFIED 50 MG C* Take 50 mg by mouth twice liam* ASCORBIC ACID (VITAMIN C) 500* Take 1 tablet by mouth once d* Problem List As Of Date 03/21/2018 Noted Resolved JOINT PAIN-ANKLE [M25.579] INVALID FOR*03/20/2014 Edema [R60.9] INVALID FOR*03/28/2016 Adrenal nodule (HCC) [E27.9] INVALID FOR* More... Diarrhea [R19.7] INVALID FOR*10/15/2013 Excessive or frequent menstruation [N92.0] INVALID FOR*07/14/2011 Shortness of breath [R06.02] INVALID FOR*10/15/2013 Palpitations [R00.2] INVALID FOR*03/20/2014 Tachycardia, unspecified [R00.0] INVALID FOR*10/15/2013 More... Open wound site NOS [T14.8XXA] INVALID FOR*07/16/2011 Abdominal pain, right upper quadrant [R10.11] INVALID FOR*07/14/2011 More... Acute gastritis without mention of hemorrhage [*INVALID FOR*10/15/2013 Hematuria [599.7] INVALID FOR*07/14/2011 URGE INCONTINENCE [N39.41] INVALID FOR* FEMALE STRESS INCONTINENCE [N39.3] INVALID FOR* Scar, hypertrophic [L91.0] INVALID FOR*10/15/2013 Ovarian cyst [N83.209] INVALID FOR*07/06/2010 Cyst INVALID FOR*10/15/2013 Other specified pre-operative examination [Z01.*INVALID FOR*07/16/2011 Hirsutism [L68.0] INVALID FOR* Dysphagia [R13.10] INVALID FOR*03/20/2014 GERD (gastroesophageal reflux disease) [K21.9] INVALID FOR* More... 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 Obesity (BMI 30.0-34.9) [E66.9] INVALID FOR* More... More... More... More... Idiopathic anaphylaxis [T78.2XXA] INVALID FOR* More... Urticaria, idiopathic [L50.1] INVALID FOR*03/28/2016 More... Hyperlipidemia LDL goal <100 [E78.5] INVALID FOR* Impaired fasting glucose [R73.01] INVALID FOR* Recurrent chest pain [R07.9, G89.29] INVALID FOR*12/09/2014 Multinodular goiter [E04.2] INVALID FOR* More... CKD (chronic kidney disease) stage 3, GFR 30-59*INVALID FOR* Pain in joint, ankle and foot [M25.579] INVALID FOR*12/09/2014 More... More... Steroid-induced hyperglycemia [R73.9, T38.0X5A] INVALID FOR*03/28/2016 Moderate persistent asthma without complication*INVALID FOR* Ulcerative colitis without complications (HCC) *INVALID FOR* Anaphylaxis [T78.2XXA] INVALID FOR*03/26/2015 More... Neck pain, bilateral [M54.2] INVALID FOR*03/28/2016 Essential hypertension with goal blood pressure*INVALID FOR*03/28/2016 Chronic nausea [R11.0] INVALID FOR* Lumbar radiculitis [M54.16] INVALID FOR*03/28/2016 Lumbar stenosis [M48.061] INVALID FOR*03/28/2016 Acquired spondylolisthesis [M43.10] INVALID FOR*03/28/2016 Cervical radiculitis [M54.12] INVALID FOR*03/28/2016 Cervical spondylosis with radiculopathy [M47.22]INVALID FOR*03/29/2017 Shoulder impingement [M75.40] INVALID FOR*03/28/2016 Anaphylaxis [T78.2XXA] INVALID FOR*03/28/2016 Tendonitis, tibialis [M76.829] INVALID FOR*05/09/2016 Lumbar stenosis [M48.061] INVALID FOR* Cervical radiculitis [M54.12] INVALID FOR*03/29/2017 Cervical herniated disc [M50.20] INVALID FOR*03/29/2017 Cervical stenosis of spine [M48.02] INVALID FOR* Cervical spondylosis with myelopathy [M47.12] INVALID FOR*03/29/2017 Cervical myelopathy (HCC) [G95.9] INVALID FOR*03/29/2017 Claustrophobia [F40.240] INVALID FOR* Ptosis of eyelid, bilateral [H02.403] INVALID FOR*03/29/2017 More... Lumbar spondylosis [M47.816] INVALID FOR* More... Preop testing [Z01.818] INVALID FOR* More... Anaphylaxis [T78.2XXA] INVALID FOR* Essential hypertension [I10] INVALID FOR* Peroneal tendinitis, left [M76.72] INVALID FOR* Retained orthopedic hardware [Z96.9] INVALID FOR* More... Peroneal tendonitis of left lower extremity [M7*INVALID FOR* More... Visit Notes: >> Hermelinda (Jonathan) JONATHAN Galo Wed Mar 21, 2018 12:04 PM Status: Signed Under the direction and supervision of Dr. Murphy, Ralph [place] is seen today 7 weeks post operative from Her: 1. ?Left foot removal of hardware 2. ?Left foot calcaneus osteotomy. 3. Left achilles tendon lengthening. 4. Left peroneal tenosynovectomy. 5. Left peroneus brevis tendon repair done on . Boot removed and incision(s) examined. Incision healed. Ralph had a new x-ray today which was reviewed by Dr. Murphy. Into boot in She will progress to partial WB n boot with two crutches for assist X 4 weeks then WBAT in boot X 4 weeks. Ralph Joshi will continue to take ASA 325 mg daily and elevate above heart level as needed. Return to clinic in [address] Murphy for x-ray left foot 3 views NWB out of boot and progress check. SUBJECTIVE: ORTH CARE COORDINATION POST OPERATIVE NURSE VISIT Patient has been identified by name and date of : Yes Patient is accompanied by: Friend Surgery: 1. ?Left foot removal of hardware 2. ?Left foot calcaneus osteotomy. 3. Left achilles tendon lengthening. 4. Left peroneal tenosynovectomy. 5. Left peroneus brevis tendon repair. Date of Surgery: January 25, 2018 Activity? Partial WB in boot X 4 weeks then WBAT in boot X 4 weeks Incision? healed Follow up Appointment? 8 weeks Patient aware of goals, to return to ADL's, Yes. Any barriers to achieving goal? No PAIN EVALUATION No data found. Medication Update: Yes: Date: March 21, 2018 Hermelinda Galo RN Encounter Status:Closed by HERMELINDA GALO on 03/21/18 PROGRESS Observed: 03/21/2018 Status: COMPLETED Source: [place] 9:43 AM [facility] REPOSIT[facility] HNO ID: [id number] Author: Denise Acevedo) Thao Nolan Service: (none) Author Type: Balance Recesser Type: Progress Notes Filed: 03/21/2018 9:43 AM Note Text: Radiology Service Progress Note PATIENT NAME: Ralph Joshi DATE OF SERVICE: March 21, 2018 TIME: 9:43 AM PATIENT IDENTITY VERIFICATION COMPLETED USING TWO (2) METHODS: Patient confirmed name verbally and Date of . PATIENT GENDER DATA: Female. status: : No status: NO. PATIENT RELEVANT IMPLANT DATA REVIEWED: Not Applicable RADIOLOGY DEPARTMENT: General X-ray: Exam(s) Completed: Lower Extremity X-Ray(s): Foot, Left: PERIPHERAL IV DATA: Not applicable SIGNED BY: RT Ignacio March 21, 2018 9:43 AM XR FOOT 3V AP/LAT/OBL Observed: 03/21/2018 Status: F Source: [facility] 9:42 AM [facility] REPOSITORY * * *Final Report* * * DATE OF EXAM: Mar 21 2018 9:42AM AOX [id number] - XR FOOT 3V AP/LAT/OBL LT / PROCEDURE REASON: multiple diagnoses * * * * Physician Interpretation * * * * EXAMINATION: XR FOOT 3V AP/LAT/OBL LT HISTORY: post-op of left heal 2 months ago Retained orthopedic hardware Peroneal tendonitis of left lower extremity . TECHNIQUE: XR FOOT 3V AP/LAT/OBL LT Laterality: LEFT Number of different views (projections): 3 COMPARISON: 12/20/2017 RESULT: Again seen are post surgical findings status post calcaneal osteotomy transfixed by 2 screws. Hardware is intact. The osteotomy line is still visible as a band of lucency and sclerosis other probably areas of bone bridging within this. Osteopenia. No other significant abnormality. 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 Transcribe Date/Time: Mar 21 2018 11:01A Dictated by : MELISSA LEAL MD This examination was interpreted and the report reviewed and electronically signed by: MELISSA LEAL MD on Mar 21 2018 11:02AM EST [id number] VITAMIN D,25 HYDROXY Collected: 03/15/2018 Status: F Source: [place] 1:48 PM [facility] REPOSITORY Order Comment: WANTS THE UA RENAL MICROALBUMIN CBC VITD URIC WANTS THE BUN CRE LIVER UA CBC TYPE CODE TESTS RESULT OUT OF RANGE REFERENCE UNITS LAB L506.1000 29.95-100.01 ng/mL Normal Vitamin D 77.4 25-OH Result Comment: Vitamin D 25(OH) Status Range Deficiency <20 ng/mL (50nmol/L) Insuffciency 20 - 30 ng/mL (50 - 75 nmol/L) Sufficiency 30 - 100 ng/mL (75 - 250 nmol/L) Toxicity >100 ng/mL (>250 nmol/L) Performed By: #### L506.1000 #### [facility] [address] [place], [address] MICROALBUMIN,RANDOM URINE Collected: Status: F Source: [place] 03/15/2018 1:48 PM [facility] REPOSITORY Order Comment: WANTS THE UA RENAL MICROALBUMIN CBC VITD URIC WANTS THE BUN CRE LIVER UA CBC TYPE CODE TESTS RESULT OUT OF RANGE REFERENCE UNITS LAB L502.0500 NO RANGE EST. mg/L Normal 5.8 MICROALBUMIN ,UR Performed By: #### L502.0500 #### [facility] [address] [place], [place], [id number] CBC-COMPLETE BLOOD CNT Collected: 03/15/2018 Status: F Source: [place] NO DIFF 1:45 PM [facility] REPOSITORY Order Comment: WANTS THE UA RENAL MICROALBUMIN CBC VITD URIC WANTS THE BUN CRE LIVER UA CBC TYPE CODE TESTS RESULT OUT OF RANGE REFERENCE UNITS LAB L100.1000 4.4-11.0 K/mm3 Normal WBC 8.5 LAB L100.1200 4.2-5.4 M/mm3 Normal RBC 5.09 LAB L100.1300 12.0-15.0 g/dl Normal HGB 14.9 LAB L100.1400 37-47 % Normal HCT 45.1 LAB L100.1500 81-99 fL Normal MCV 88.6 LAB L100.1600 27.0-32.0 pg Normal MCH 29.3 LAB L100.1700 32-36 g/gl Normal MCHC 33.0 LAB L100.1810 11.6-14.6 % High RDW CV 14.8 LAB L100.1820 35.1-43.9 fl High RDW SD 47.9 LAB L100.1900 150-450 K/mm3 Normal PLT 222 LAB L100.2000 6.2-12.0 fl Normal MPV 10.5 Performed By: #### L100.0500 #### [facility] [address] [place], [place], [id number] LIVER PROFILE Collected: 03/15/2018 Status: F Source: [place] 1:45 PM [facility] REPOSITORY Order Comment: WANTS THE UA RENAL MICROALBUMIN CBC VITD URIC WANTS THE BUN CRE LIVER UA CBC BMP PHOS TYPE CODE TESTS RESULT OUT OF RANGE REFERENCE UNITS LAB L501.1500 6.4-8.2 g/dL Normal T PROT 7.3 LAB L501.1800 3.2-5.0 g/dL Normal ALB 3.6 LAB L501.1950 2.2-4.2 g/dL Normal GLOB 3.7 LAB L501.4100 15-37 U/L Normal AST 23 LAB L501.4305 45-117 U/L Normal ALK P 94 LAB L501.4405 13-56 U/L High ALT 60 LAB L501.4600 0.20-1.00 mg/dL Normal T BILI 0.90 LAB L501.4700 0.00-0.30 mg/dL Normal D BILI 0.27 Performed By: #### L500.3400, L501.1000, L501.1105, L501.1400, L500.2500, L501.2300 #### [facility] [address] [place], [address] BUN Collected: 03/15/2018 Status: F Source: [place] 1:45 PM [facility] REPOSITORY Order Comment: WANTS THE UA RENAL MICROALBUMIN CBC VITD URIC WANTS THE BUN CRE LIVER UA CBC TYPE CODE TESTS RESULT OUT OF RANGE REFERENCE UNITS LAB L501.1000 7-18 mg/dL Normal BUN 17 Performed By: #### L500.3400, L501.1000, L501.1105, L501.1400, L500.2500, L501.2300 #### [facility] [address] [facility] [place], [place], [address] SERUM CREATININE AND Collected: 03/15/2018 Status: F Source: [place] GFR 1:45 PM [facility] REPOSITORY Order Comment: WANTS THE UA RENAL MICROALBUMIN CBC VITD URIC WANTS THE BUN CRE LIVER UA CBC TYPE CODE TESTS RESULT OUT OF RANGE REFERENCE UNITS LAB L501.1100 0.55-1.02 mg/dL High 1.16 CREAT,SERUM Result Comment: The validity of the calculated GFR AND GFRAA in patients over 70 years has not been determined. Clinical correlation is essential. LAB L501.1110 >60 mL/min Low EST GFR 50 Result Comment: Non- GFR Calc LAB L501.1115 >60 mL/min Normal EST GFR - AA 61 Result Comment: GFR Calc Performed By: #### L500.3400, L501.1000, L501.1105, L501.1400, L500.2500, L501.2300 #### [facility] [address] [place], [address] URIC ACID Collected: 03/15/2018 Status: F Source: [place] 1:45 PM [facility] REPOSITORY Order Comment: WANTS THE UA RENAL MICROALBUMIN CBC VITD URIC WANTS THE BUN CRE LIVER UA CBC BMP PHOS TYPE CODE TESTS RESULT OUT OF RANGE REFERENCE UNITS LAB L501.1400 2.6-6.0 mg/dL High URIC 7.1 Result Comment: The drugs N-Acetylcysteine and Metamizole may falsely depress this assay. Performed By: #### L500.3400, L501.1000, L501.1105, L501.1400, L500.2500, L501.2300 #### [facility] [address] [place], [address] BASIC METABOLIC Collected: 03/15/2018 Status: F Source: [place] PROFILE ([facility]) 1:45 PM [facility] REPOSITORY Order Comment: WANTS THE UA RENAL MICROALBUMIN CBC VITD URIC WANTS THE BUN CRE LIVER UA CBC BMP PHOS TYPE CODE TESTS RESULT OUT OF RANGE REFERENCE UNITS LAB L501.1000 7-18 mg/dL Normal BUN 17 LAB L501.1100 0.55-1.02 mg/dL High 1.16 CREAT,SERUM Result Comment: The validity of the calculated GFR AND GFRAA in patients over 70 years has not been determined. Clinical correlation is essential. LAB L501.1110 >60 mL/min Low EST GFR 50 Result Comment: Non- GFR Calc LAB L501.1115 >60 mL/min Normal EST GFR - AA 61 Result Comment: GFR Calc LAB L501.0100 74-106 mg/dL High GLU 192 Result Comment: Fasting Glucose result greater than or equal to 126 mg/dL suggests DIABETES MELLITUS per A.D.A. criteria. Please note revised GLUCOSE reference range effective 2017. LAB L501.1300 10-20 RATIO Normal BUN/CRE 14.7 LAB L501.2200 8.5-10.1 mg/dL CA Normal 9.0 LAB L501.5300 136-145 mmol/L NA Normal 139 LAB L501.5600 3.5-5.1 mmol/L K Normal 4.0 LAB L501.5900 98-107 mmol/L CL Normal 104 LAB L501.6100 21.0-32.0 mmol/L Normal CO2 24.0 LAB L501.6200 5-15 Normal GAP 11 Performed By: #### L500.3400, L501.1000, L501.1105, L501.1400, L500.2500, L501.2300 #### [facility] [address] [facility] [facility] [place], [address] PHOSPHORUS Collected: 03/15/2018 Status: F Source: [place] 1:45 PM [facility] REPOSITORY Order Comment: WANTS THE UA RENAL MICROALBUMIN CBC VITD URIC WANTS THE BUN CRE LIVER UA CBC BMP PHOS TYPE CODE TESTS RESULT OUT OF RANGE REFERENCE UNITS LAB L501.2300 2.5-4.9 mg/dL Normal PHOS 2.8 Performed By: #### L500.3400, L501.1000, L501.1105, L501.1400, L500.2500, L501.2300 #### [facility] [address] [facility] [place], [place], [address] URINALYSIS, ROUTINE Collected: 03/15/2018 Status: F Source: [place] ([facility]) 1:45 PM [facility] REPOSITORY Order Comment: WANTS THE UA RENAL MICROALBUMIN CBC VITD URIC WANTS THE BUN CRE LIVER UA CBC How was Urine Obtained? CLEAN CATCH TYPE CODE TESTS RESULT OUT OF RANGE REFERENCE UNITS LAB L400.3000 Yellow COLOR Normal Yellow LAB L400.3050 Clear Normal CLARITY Clear LAB L400.3200 Normal mg/dl Normal GLUCOSE, UR Normal LAB L400.3300 Negative mg/dL Normal BILIRUBIN URINE Negative LAB L400.3400 Negative mg/dl Normal KETONE UR Negative LAB L400.3465 1.002-1.030 Normal SP.GR. DIPSTX 1.005 LAB L400.3550 5.0 - 8.0 pH UR Normal 6.0 LAB L400.3600 Negative mg/dl PROT Normal DIPSTX Negative LAB L400.3700 Normal mg/dl Normal UROBILI Normal LAB L400.3750 Negative Normal NITRITE UR Negative LAB L400.3780 Negative /ul Normal OCCULT BLOOD-UR Negative LAB L400.3800 Negative /ul LEUK Normal ESTERASE Negative Performed By: #### L400.2010 #### [facility] [address] [place], [address] CNPN Observed: 03/02/2018 Status: COMPLETED Source: [place] 12:00 AM [facility] REPOSITORY Telephone (KYLER) RALPH JOSHI ([id number]) 1955 F Date Time Provider Department 03/02/18 BIANCA ANN During your visit today, we recorded the following information about you: Susy Khan RN, RN 03/02/2018 12:25 PM Signed Patient is scheduled for YARITZA 03/26/2018. Asking if any dyes will be used during procedure. She reports allergy to contrast dye and is asking for prednisone and benadryl prior to procedure. Candi Shetty PA-C, PA 03/02/2018 12:55 PM Signed No dye planned for procedure. Will make sure this is in her allergy list. LENNY Joshua RN, RN 03/02/2018 1:13 PM Signed Return call to patient. No identifiers on VM. No message left. Allergies As of Date: 03/02/2018 Noted Allergy Reaction AVOCADO 09/10/2014 10 - Anaphylaxis BANANA 09/10/2014 10 - Anaphylaxis CARBINOXAMINE 09/17/2012 10 - Anaphylaxis YOSELIN SEED 08/28/2013 10 - Anaphylaxis CIPROFLOXACIN 04/11/2014 10 - Anaphylaxis CODEINE 01/12/2012 10 - Anaphylaxis CONTRAST DYE 05/17/2013 10 - Anaphylaxis Comments: To MRI and CT FISH 09/07/2014 10 - Anaphylaxis HYCODAN (HYDROCODONE-HOMATROPINE) 09/08/2011 10 - Anaphylaxis Comments: Face and throat swelling LATEX 01/21/2014 10 - Anaphylaxis IMTIAZ-SYNEPHRINE (PHENYLEPHRINE HCL)09/04/2014 10 - Anaphylaxis Comments: 10% eye drop NICKEL 01/07/2014 2 - Rash 4 - Hives 10 - Anaphylaxis NSAIDS (NON-STEROIDAL ANTI-INFLAM*08/16/2010 14 - Other: See Comments Comments: Kidney function drops; reversible kidney damage. OXYCODONE 08/28/2013 10 - Anaphylaxis PERIACTIN (CYPROHEPTADINE) 09/17/2012 10 - Anaphylaxis PNEUMOCOCCAL VACCINE 10/31/2014 10 - Anaphylaxis SHELLFISH 09/07/2014 10 - Anaphylaxis ZANTAC (RANITIDINE) 09/17/2012 10 - Anaphylaxis ATIVAN (LORAZEPAM) 08/28/2013 14 - Other: See Comments Comments: hallucination BEE STING 10/31/2017 10 - Anaphylaxis BEEF CONTAINING PRODUCTS 09/10/2014 2 - Rash CORN 05/03/2011 14 - Other: See Comments Comments: Feels like an asthma attack. EGGS (EGG) 03/08/2011 2 - Rash 11 - Vomiting EKG LEADS (ADHESIVE) 10/22/2012 2 - Rash Comments: Localized,only under the leads environmental [Other] 06/26/2007 14 - Other: See Comments Comments: Nasal congestion, brings on an asthma attack. INFLUENZA VIRUS VACCINES 10/22/2012 12 - Shortness of Breath LISINOPRIL 04/20/2004 3 - Cough MILK 03/08/2011 2 - Rash 11 - Vomiting MOMETASONE 04/05/2017 10 - Anaphylaxis Comments: Per Dr. Salas she tolerates formoterol (on Breo at home) but is allergic to mometasone. Okayed by him to update. surgical tape [Other] 11/10/2009 2 - Rash 7 - Swelling Comments: Oral rash, swelling of eyes, asthma attacks; per pateint report. XOLAIR (OMALIZUMAB) 04/19/2012 12 - Shortness of Breath Date Reviewed: 02/27/2018 Reviewed by: Radha MinorRn) JONATHAN Martinez - Fully Assessed Reason for Visit: Nurse Triage Call [[phone]] Cmt: procedure question Prescriptions as of 03/02/2018 Sig: DIPHENHYDRAMINE 50 MG CAPSULE Take 1 capsule by mouth as di* VITAMIN D2 50,000 UNIT CAPSULE TAKE ONE CAPSULE BY MOUTH ONC* DOCUSATE SODIUM 100 MG CAPSULE Take 1 capsule by mouth twice* ASPIRIN 325 MG TABLET,DELAYED* Take 1 tablet by mouth once d* CROMOLYN 20 MG/2 ML SOLUTION * Use 2 mL via nebulizer four t* LEVALBUTEROL 1.25 MG/3 ML BRENDA* Use 1 Ampule via nebulizer ev* FLUTICASONE 50 MCG/ACTUATION * 1-2 sprays each side qd BUDESONIDE 0.5 MG/2 ML SUSPEN* Use 1 Ampule via nebulizer tw* AZELASTINE 0.15 % (205.5 MCG)* Use 1 Wilberforce in each nostril t* FLUTICASONE 200 MCG-VILANTERO* Inhale 1 Inhalation as instru* OSELTAMIVIR 75 MG CAPSULE Take 1 capsule by mouth twice* ACETAMINOPHEN 500 MG TABLET Take 500 mg by mouth every 8 * NITROGLYCERIN 0.4 MG SUBLINGU* DISSOLVE 1 TABLET UNDER THE T* TRIAMCINOLONE ACETONIDE 0.1 %* Apply 1 application to affect* DOXAZOSIN 4 MG TABLET Take 1 tablet by mouth once d* AMLODIPINE 10 MG TABLET Take 1 tablet by mouth once d* EPINEPHRINE 0.3 MG/0.3 ML INJ* Inject 0.3 mL intramuscularly* DIPHENHYDRAMINE 25 MG TABLET Take 1 tablet by mouth every * PREGABALIN 150 MG CAPSULE Take 1 capsule by mouth twice* PREGABALIN 150 MG CAPSULE Take 1 capsule by mouth twice* ATORVASTATIN 20 MG TABLET One tab on MWF only SPIRONOLACTONE 50 MG TABLET Take 1 tablet by mouth twice * LANSOPRAZOLE 30 MG CAPSULE,DE* TAKE 1 CAPSULE TWICE A DAY BUMETANIDE 0.5 MG TABLET Take 1 tablet by mouth once d* ALBUTEROL SULFATE HFA 90 MCG/* Inhale 2 Puffs as instructed * CHOLESTYRAMINE (WITH SUGAR) 4* Take 1 scoop by mouth once da* CYANOCOBALAMIN (VIT B-12) 1,0* Take 1 tablet by mouth once d* TURMERIC ROOT EXTRACT ORAL Take 1 tablet by mouth twice * CRISABOROLE 2 % TOPICAL OINTM* Apply to the hands twice daily COMPOUNDED PRESCRIPTION Please provide patient with n* CETIRIZINE 10 MG TABLET Take 10 mg by mouth once mary ellen* PIMECROLIMUS 1 % TOPICAL CREAM Apply twice daily to the hands ONDANSETRON HCL 4 MG TABLET Take 1 tablet by mouth every * BENZONATATE 200 MG CAPSULE Take 200 mg by mouth three ti* LACTOBACILLUS RHAMNOSUS GG 10* Take 1 capsule by mouth twice* ZAFIRLUKAST 20 MG TABLET Take 1 tablet by mouth twice * CYCLOSPORINE MODIFIED 50 MG C* Take 50 mg by mouth twice liam* ASCORBIC ACID (VITAMIN C) 500* Take 1 tablet by mouth once d* Problem List As Of Date 03/02/2018 Noted Resolved JOINT PAIN-ANKLE [M25.579] INVALID FOR*03/20/2014 Edema [R60.9] INVALID FOR*03/28/2016 Priority: I Adrenal nodule (HCC) [E27.9] INVALID FOR* More... Diarrhea [R19.7] INVALID FOR*10/15/2013 Excessive or frequent menstruation [N92.0] INVALID FOR*07/14/2011 Shortness of breath [R06.02] INVALID FOR*10/15/2013 Palpitations [R00.2] INVALID FOR*03/20/2014 Tachycardia, unspecified [R00.0] INVALID FOR*10/15/2013 More... Open wound site NOS [T14.8XXA] INVALID FOR*07/16/2011 Abdominal pain, right upper quadrant [R10.11] INVALID FOR*07/14/2011 More... Acute gastritis without mention of hemorrhage [*INVALID FOR*10/15/2013 Hematuria [599.7] INVALID FOR*07/14/2011 URGE INCONTINENCE [N39.41] INVALID FOR* FEMALE STRESS INCONTINENCE [N39.3] INVALID FOR* Scar, hypertrophic [L91.0] INVALID FOR*10/15/2013 Ovarian cyst [N83.209] INVALID FOR*07/06/2010 Cyst INVALID FOR*10/15/2013 Other specified pre-operative examination [Z01.*INVALID FOR*07/16/2011 Hirsutism [L68.0] INVALID FOR* Dysphagia [R13.10] INVALID FOR*03/20/2014 GERD (gastroesophageal reflux disease) [K21.9] INVALID FOR* Priority: D More... 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 Obesity (BMI 30.0-34.9) [E66.9] INVALID FOR* More... More... More... More... Idiopathic anaphylaxis [T78.2XXA] INVALID FOR* Priority: A More... Urticaria, idiopathic [L50.1] INVALID FOR*03/28/2016 More... Hyperlipidemia LDL goal <100 [E78.5] INVALID FOR* Impaired fasting glucose [R73.01] INVALID FOR* Recurrent chest pain [R07.9, G89.29] INVALID FOR*12/09/2014 Multinodular goiter [E04.2] INVALID FOR* More... CKD (chronic kidney disease) stage 3, GFR 30-59*INVALID FOR* Pain in joint, ankle and foot [M25.579] INVALID FOR*12/09/2014 More... More... Steroid-induced hyperglycemia [R73.9, T38.0X5A] INVALID FOR*03/28/2016 Priority: C Moderate persistent asthma without complication*INVALID FOR* Ulcerative colitis without complications (HCC) *INVALID FOR* Anaphylaxis [T78.2XXA] INVALID FOR*03/26/2015 More... Neck pain, bilateral [M54.2] INVALID FOR*03/28/2016 Essential hypertension with goal blood pressure*INVALID FOR*03/28/2016 Chronic nausea [R11.0] INVALID FOR* Lumbar radiculitis [M54.16] INVALID FOR*03/28/2016 Lumbar stenosis [M48.061] INVALID FOR*03/28/2016 Acquired spondylolisthesis [M43.10] INVALID FOR*03/28/2016 Cervical radiculitis [M54.12] INVALID FOR*03/28/2016 Cervical spondylosis with radiculopathy [M47.22]INVALID FOR*03/29/2017 Shoulder impingement [M75.40] INVALID FOR*03/28/2016 Anaphylaxis [T78.2XXA] INVALID FOR*03/28/2016 Tendonitis, tibialis [M76.829] INVALID FOR*05/09/2016 Lumbar stenosis [M48.061] INVALID FOR* Cervical radiculitis [M54.12] INVALID FOR*03/29/2017 Cervical herniated disc [M50.20] INVALID FOR*03/29/2017 Cervical stenosis of spine [M48.02] INVALID FOR* Cervical spondylosis with myelopathy [M47.12] INVALID FOR*03/29/2017 Cervical myelopathy (HCC) [G95.9] INVALID FOR*03/29/2017 Claustrophobia [F40.240] INVALID FOR* Ptosis of eyelid, bilateral [H02.403] INVALID FOR*03/29/2017 More... Lumbar spondylosis [M47.816] INVALID FOR* More... Preop testing [Z01.818] INVALID FOR* More... Anaphylaxis [T78.2XXA] INVALID FOR* Essential hypertension [I10] INVALID FOR* Peroneal tendinitis, left [M76.72] INVALID FOR* Retained orthopedic hardware [Z96.9] INVALID FOR* More... Peroneal tendonitis of left lower extremity [M7*INVALID FOR* More... Encounter Status:Closed by SUSY KHAN on 03/02/18 NURSING PROG Observed: 02/27/2018 Status: COMPLETED Source: [place] 10:56 AM [facility] REPOSIT[facility] HNO ID: [id number] Author: Chantel (Rn) JONATHAN Izquierdo Service: Radiology Author Type: Registered Nurse Type: Nursing Progress Note Filed: 02/27/2018 11:03 AM Note Text: Assumed care of paitent from Radha Perez RN. Patient comfortable, VSS. Did place on 2L O2 d/t marginal sat's of 90-91%. IR VENOUS SAMPLING Observed: 02/27/2018 Status: F Source: [place] 10:41 AM [facility] REPOSITORY * * *Final Report* * * DATE OF EXAM: Feb 27 2018 10:41AM 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 The presents to IR for bilateral adrenal venous sampling. She has multiple other medical issues, including mild azotemia, for which she will receive IV hydration for today's procedure. CONSENT: Risks, benefits, treatment options, potential complications and personnel to be involved were discussed (including the risks of radiation exposure, contrast and anesthesia administration, and any equipment needed for the procedure to ensure best possible outcome) with the patient. All questions were answered and consent was obtained prior to procedure. MEDICATION RECONCILIATION: The patient's medications and allergies were reviewed in the electronic medical record and reconciled to the proposed procedure/treatment. JAYLAN-PROCEDURE DISCUSSION: The appropriate elements of the pre-procedure discussion, safety check list and sign-out were performed. TIME OUT: A time out was performed immediately prior to procedure start with the nursing, and interventional team, correctly identifying the name, date of , procedure, anatomy, patient position, procedure consent form, relevant diagnostic and radiology test results, safety precautions, and procedure-specific equipment needs. Start of procedure (Time out): 09:45 End of procedure (Sign out): 10:41 Patient position: Supine Anesthesia: After establishing pulse oximetry, BP and EKG monitoring by the Radiology nurse, moderate sedation with Versed and Fentanyl was administered. Intra-service time (monitoring for moderate sedation): 63 minutes Patient monitoring: I personally supervised and directed an independent trained observer who assisted in monitoring the patient?s level of consciousness and physiological status throughout the procedure. Local anesthesia: 2 % lidocaine Antibiotics: None Antibiotic infusion start time: N/A CONTRAST DOSE: 33 cc of Omnipaque 240 was injected into the venous system during the procedure. IMAGE GUIDANCE: Fluoroscopic and sonographic guidance was used. Ultrasound demonstrated patency of the target vein without filling defects. Access was obtained under direct sonographic visualization. A sonographic image of the vessel was obtained and placed into the permanent archive for documentation. FLUOROSCOPIC RADIATION SUMMARY: Plane A, Air Kerma: 277.8 mGy Dose Area Product (DAP): 30568.0 mGy*cm2 Fluoro Time: 10:06 min:sec Radiation dose exceed 5 Gy: No If radiation dose exceeded 5 Gy, was counseling and instructional brochure provided: N/A TECHNIQUE: Intravenous hydration with normal saline was initiated prior to the beginning of the procedure and continued until 2 hours after the procedure. The patient was prepped and draped using all elements of maximal sterile barrier technique (cap, mask, sterile gown, sterile gloves, a large sterile sheet, hand hygiene and cutaneous antisepsis), sterile ultrasound gel and sterile ultrasound probe covers. The right groin was prepared and draped in the usual sterile fashion. Local anesthesia was instilled and the right common femoral vein was cannulated under direct ultrasound guidance using micropuncture technique. A 6 Swazi 45 cm sheath was placed. Through this, a 5 Swazi catheter in a modified HS2 configuration was used to locate the right adrenal vein using fluoroscopic guidance. The location of the catheter tip in the adrenal vein was verified with contrast injection. The catheter tip was then readjusted and a second right adrenal vein sample was obtained. Next, a re-curved catheter was used to cannulate the left adrenal vein and a sample of blood was obtained. Contrast material was injected to confirm catheter tip location. Two additional left adrenal vein samples were obtained obtained with a coaxial microcatheter advanced farther into the vein. Then one additional sample was obtained from the right adrenal vein using the coaxial system. Samples were also obtained from the supra-adrenal IVC and the infra-adrenal IVC. All samples were then sent to the appropriate laboratory for assay of cortisol and aldosterone levels. At the end of the procedure, the catheter and the sheath were removed and good hemostasis was achieved at the femoral puncture site with manual compression. The patient tolerated the procedure well. There were no immediate complications. The patient tolerated the procedure well. There were no significant complications and no other complications during the procedure. CONCLUSION: The patient was comfortable and was transferred to the recovery room in stable condition. Estimated Blood Loss: Minimal Number and Type of Removed Specimens: A total of 8 tubes of blood were obtained, from the following sites and sent to the laboratory for cortisol and aldosterone assays: 10:01 RIGHT adrenal vein 10:09 RIGHT adrenal vein 10:16 LEFT adrenal vein 10:20 LEFT adrenal vein 10:22 LEFT adrenal vein 10:32 RIGHT adrenal vein 10:34 Supra-adrenal IVC 10:36 Infra-adrenal IVC ATTENDING RADIOLOGIST: Neisha Kirkland M.D. ASSEMBLER FOR PULLER OVER MACHINE: None The entire procedure was performed by the attending radiologist, without an assistant maintenance manager. IMPRESSION: Uneventful bilateral adrenal venous sampling. Sample times and locations: 10:01 RIGHT adrenal vein 10:09 RIGHT adrenal vein 10:16 LEFT adrenal vein 10:20 LEFT adrenal vein 10:22 LEFT adrenal vein 10:32 RIGHT adrenal vein 10:34 Supra-adrenal IVC 10:36 Infra-adrenal IVC 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 Transcribe Date/Time: Feb 27 2018 10:58A Dictated by : NEISHA KIRKLAND MD This examination was interpreted and the report reviewed and electronically signed by: NEISHA KIRKLAND MD on Feb 27 2018 11:03AM EST [id number] CORTISOL Collected: 02/27/2018 Status: F Source: [place] 10:36 AM [facility] TYPE CODE TESTS RESULT OUT OF REFERENCE UNITS RANGE LAB COR ug/dL Cortisol 64.2 Result Comment: Cortisol Reference Range: AM = 5.3-22.5, PM = 3.4-16.8 8 low ivc Performed By: #### COR, CHANG #### [facility] [employer] [address] [place] [address] ALDOSTERONE Collected: 02/27/2018 Status: F Source: [place] 10:36 AM [facility] TYPE CODE TESTS RESULT OUT OF REFERENCE UNITS RANGE LAB CHANG 3.1-35.4 ng/dL Aldosterone High 74.0 Result Comment: Normal serum levels of aldosterone are dependent on the sodium intake and whether the patient is upright or supine. High sodium intake will tend to suppress serum aldosterone, whereas lo w sodium intake will elevate serum aldosterone. The reference interval for serum aldosterone are based on a normal sodium intake. Supine reference range <23.1 ng/dL 8 low ivc Performed By: #### COR, CHANG #### [facility] [employer] [address] [place], [place] [address] CORTISOL Collected: 02/27/2018 Status: F Source: [place] 10:34 AM [facility] TYPE CODE TESTS RESULT OUT OF REFERENCE UNITS RANGE LAB COR ug/dL Cortisol 69.3 Result Comment: Cortisol Reference Range: AM = 5.3-22.5, PM = 3.4-16.8 7 high ivc Performed By: #### COR, CHANG #### [facility] [employer] [address], [place] [address] ALDOSTERONE Collected: 02/27/2018 Status: F Source: [place] 10:34 AM [facility] TYPE CODE TESTS RESULT OUT OF REFERENCE UNITS RANGE LAB CHANG 3.1-35.4 ng/dL Aldosterone High 97.2 Result Comment: Normal serum levels of aldosterone are dependent on the sodium intake and whether the patient is upright or supine. High sodium intake will tend to suppress serum aldosterone, whereas lo w sodium intake will elevate serum aldosterone. The reference interval for serum aldosterone are based on a normal sodium intake. Supine reference range <23.1 ng/dL 7 high ivc Performed By: #### COR, CHANG #### [facility] [employer] [address] [place] [address] CORTISOL Collected: 02/27/2018 Status: F Source: [place] 10:32 AM [facility] TYPE CODE TESTS RESULT OUT OF REFERENCE UNITS RANGE LAB COR ug/dL Cortisol 938.8 Result Comment: Result rechecked. Cortisol Reference Range: AM = 5.3-22.5, PM = 3.4-16.8 6 right adrenal Performed By: #### COR, CHANG #### [facility] [employer] [address] [place] [address] ALDOSTERONE Collected: 02/27/2018 Status: F Source: [place] 10:32 AM [facility] TYPE CODE TESTS RESULT OUT OF REFERENCE UNITS RANGE LAB CHANG 3.1-35.4 ng/dL Aldosterone High 1420.0 Result Comment: Normal serum levels of aldosterone are dependent on the sodium intake and whether the patient is upright or supine. High sodium intake will tend to suppress serum aldosterone, whereas lo w sodium intake will elevate serum aldosterone. The reference interval for serum aldosterone are based on a normal sodium intake. Supine reference range <23.1 ng/dL Result rechecked. 6 right adrenal Performed By: #### COR, CHANG #### [facility] [employer] [address] [place] [address] CORTISOL Collected: 02/27/2018 Status: F Source: [place] 10:22 AM [facility] TYPE CODE TESTS RESULT OUT OF REFERENCE UNITS RANGE LAB COR ug/dL Cortisol 671.5 Result Comment: Cortisol Reference Range: AM = 5.3-22.5, PM = 3.4-16.8 Result rechecked. 5 left adrenal Performed By: #### COR, CHANG #### [facility] [employer] [address] [place] [address] ALDOSTERONE Collected: 02/27/2018 Status: F Source: [place] 10:22 AM [facility] TYPE CODE TESTS RESULT OUT OF REFERENCE UNITS RANGE LAB CHANG 3.1-35.4 ng/dL Aldosterone High 1250.0 Result Comment: Normal serum levels of aldosterone are dependent on the sodium intake and whether the patient is upright or supine. High sodium intake will tend to suppress serum aldosterone, whereas lo w sodium intake will elevate serum aldosterone. The reference interval for serum aldosterone are based on a normal sodium intake. Supine reference range <23.1 ng/dL Result rechecked. 5 left adrenal Performed By: #### COR, CHANG #### [facility] [employer] [address] [place], [place] [address] CORTISOL Collected: 02/27/2018 Status: F Source: [place] 10:20 AM [facility] TYPE CODE TESTS RESULT OUT OF REFERENCE UNITS RANGE LAB COR ug/dL Cortisol 756.4 Result Comment: Result rechecked. Cortisol Reference Range: AM = 5.3-22.5, PM = 3.4-16.8 4 left adrenal Performed By: #### COR, CHANG #### [facility] [employer] [address] [place], [place] [address] ALDOSTERONE Collected: 02/27/2018 Status: F Source: [place] 10:20 AM [facility] TYPE CODE TESTS RESULT OUT OF REFERENCE UNITS RANGE LAB CHANG 3.1-35.4 ng/dL Aldosterone High 2820.0 Result Comment: Normal serum levels of aldosterone are dependent on the sodium intake and whether the patient is upright or supine. High sodium intake will tend to suppress serum aldosterone, whereas lo w sodium intake will elevate serum aldosterone. The reference interval for serum aldosterone are based on a normal sodium intake. Supine reference range <23.1 ng/dL Result rechecked. 4 left adrenal Performed By: #### COR, HCANG #### [facility] [employer] [address] [place], [place] [address] CORTISOL Collected: 02/27/2018 Status: F Source: [place] 10:16 AM [facility] REPOSITORY TYPE CODE TESTS RESULT OUT OF REFERENCE UNITS RANGE LAB COR ug/dL Cortisol 451.6 Result Comment: Result rechecked. Cortisol Reference Range: AM = 5.3-22.5, PM = 3.4-16.8 3 left adrenal Performed By: #### COR, CHANG #### [facility] [employer] [address] [place], [place] [address] ALDOSTERONE Collected: 02/27/2018 Status: F Source: [place] 10:16 AM [facility] REPOSITORY TYPE CODE TESTS RESULT OUT OF REFERENCE UNITS RANGE LAB CHANG 3.1-35.4 ng/dL Aldosterone High 2250.0 Result Comment: Normal serum levels of aldosterone are dependent on the sodium intake and whether the patient is upright or supine. High sodium intake will tend to suppress serum aldosterone, whereas lo w sodium intake will elevate serum aldosterone. The reference interval for serum aldosterone are based on a normal sodium intake. Supine reference range <23.1 ng/dL Result rechecked. 3 left adrenal Performed By: #### COR, CHANG #### [facility] [employer] [address], [place] [address] CORTISOL Collected: 02/27/2018 Status: F Source: [place] 10:09 AM [facility] REPOSITORY TYPE CODE TESTS RESULT OUT OF REFERENCE UNITS RANGE LAB COR ug/dL Cortisol 867.6 Result Comment: Result rechecked. Cortisol Reference Range: AM = 5.3-22.5, PM = 3.4-16.8 2 right adrenal Performed By: #### COR, CHANG #### [facility] [employer] [address], [place] [address] ALDOSTERONE Collected: 02/27/2018 Status: F Source: [place] 10:09 AM [facility] REPOSITORY TYPE CODE TESTS RESULT OUT OF REFERENCE UNITS RANGE LAB CHANG 3.1-35.4 ng/dL Aldosterone High 684.0 Result Comment: Normal serum levels of aldosterone are dependent on the sodium intake and whether the patient is upright or supine. High sodium intake will tend to suppress serum aldosterone, whereas lo w sodium intake will elevate serum aldosterone. The reference interval for serum aldosterone are based on a normal sodium intake. Supine reference range <23.1 ng/dL Result rechecked. 2 right adrenal Performed By: #### COR, CHANG #### [facility] [employer] [address] [place], [place] [address] CORTISOL Collected: 02/27/2018 Status: F Source: [place] 10:01 AM [facility] REPOSITORY TYPE CODE TESTS RESULT OUT OF REFERENCE UNITS RANGE LAB COR ug/dL Cortisol 775.3 Result Comment: Result rechecked. Cortisol Reference Range: AM = 5.3-22.5, PM = 3.4-16.8 1 right adrenal Performed By: #### COR, CHANG #### [facility] [employer] [address] [place], [place] [address] ALDOSTERONE Collected: 02/27/2018 Status: F Source: [place] 10:01 AM [facility] REPOSITORY TYPE CODE TESTS RESULT OUT OF REFERENCE UNITS RANGE LAB CHANG 3.1-35.4 ng/dL Aldosterone High 1785.0 Result Comment: Normal serum levels of aldosterone are dependent on the sodium intake and whether the patient is upright or supine. High sodium intake will tend to suppress serum aldosterone, whereas lo w sodium intake will elevate serum aldosterone. The reference interval for serum aldosterone are based on a normal sodium intake. Supine reference range <23.1 ng/dL Result rechecked. 1 right adrenal Performed By: #### COR, CHANG #### [facility] [employer] [address] [place], [place] [address] HISTORY PHYSICAL Observed: 02/27/2018 Status: COMPLETED Source: [place] 9:02 AM [facility] REPOSITORY HNO ID: [id number] Author: Neisha Kirkland Service: Radiology Author Type: Physician Type: HANDP Filed: 02/27/2018 9:06 AM Note Text: RADIOLOGY PROCEDURAL SEDATION HISTORY AND PHYSICAL EXAM SERVICE DATE: 02/27/2018 SERVICE TIME: 9:03 AM Subjective HPI: This is a 62 year old female with hypertension, increased serum aldosterone levels, and a right adrenal nodule. She presents to IR for bilateral adrenal venous sampling. She has multiple other medical issues, including mild azotemia, for which she will receive IV hydration for today's procedure. PROCEDURE SCHEDULED: Procedure(s) with comments: VENOUS CATHETERIZATION FOR SELECTIVE ORGAN BLOOD SAMPLING (N/A) - ADRENAL SAMPLING PT CALLING PAST ANESTHESIA HISTORY: No history of adverse event PAST MEDICAL HISTORY Diagnosis Date - Abdominal pain, other specified site - ACNE NEC 01/21/2008 - Actinic Keratosis (Premalignant AK) 06/05/2011 - ACUTE GASTRITIS W/O HEMORRHAGE 04/26/2007 - Allergic rhinitis 04/23/2012 - Anaphylactic reaction ideopathic - Benign tumor of adrenal gland - Biliary dyskinesia 10/29/2009 - Cervical herniated disc 10/20/2016 - Cervical myelopathy (HCC) 10/25/2016 - Cervical radiculitis 10/20/2016 - Cervical spondylosis with radiculopathy 11/17/2015 - JAIN ANGIOMA///NEVUS, NON-NEOPLASTIC 05/28/2007 - Chronic renal insufficiency - CKD (chronic kidney disease) stage 3, GFR 30-59 ml/min (HCC) 04/29/2013 - Diaphragmatic hernia without mention of obstruction or gangrene 05/25/2011 - Diverticulosis of colon (without mention of hemorrhage) - Edema 07/07/2004 - Epigastric pain - GERD (gastroesophageal reflux disease) - HTN (hypertension) 2002 controlled on Diovan - Hyperlipidemia 10/15/2013 - IRON DEFIC ANEMIA NOS 04/26/2007 - Moderate persistent asthma without complication 02/18/2015 - Obstructive sleep apnea - Ovarian cyst Benign ovarian cyst, S/P laparoscopic LSO - Ptosis of eyelid, bilateral 12/23/2016 Added automatically from request for surgery [id number] - Shoulder impingement 11/17/2015 - Sleep apnea intollerant to CPAP because allergic to material on mask - Steroid-induced hyperglycemia 09/06/2014 - TACHYCARDIA NOS 01/09/2006 - Tarsal tunnel syndrome 12/23/2009 - Tear of lateral meniscus of knee 02/21/2014 - Ulcerative colitis, unspecified - UTERINE LEIOMYOMA NOS 12/23/2005 - VIRAL WARTS NOS 05/09/2006 - Vocal cord dysfunction PAST SURGICAL HISTORY Procedure Laterality Date - CHOLECYSTECTOMY HX - COLONOSCOP W/ OR W/O BRS SPEC 09/06/2005 Colonoscopy - COLONOSCOP W/ OR W/O BRS SPEC Colonoscopy - COLONOSCOP W/ OR W/O [facility] SPEC 05/28/2012 Colonoscopy repeat 5 years. - EGD 07/29/14 normal - EGD W/O OR W/BRUSH/WASH 09/06/2005 EGD - EGD W/O OR W/BRUSH/WASH 04/26/2007 EGD - EGD W/O OR W/BRUSH/WASH 05/25/2011 EGD - EGD W/O OR W/BRUSH/WASH 05/28/2012 EGD - L'SCOPE REM ADNEX W/PART/TOT OOPH/SALP 06/11/2009 Laparoscopic LSO for benign ovarian cyst - LAMINECTOMY,CERVICAL 10/2016 - LAP CHOLECYSTECT/CHOLANGIOGRAPHY 10/30/09 Normal IOC - ORTHOPEDICS SURGERY HX 12/2013 repaired Rt achilles tendon - PAST SURGICAL HISTORY OF 09/19 left foot surgery on heel and repaired torn tdndon - SIGMOIDOSCOPY FLEX DIAG 05/20/08 - TARSAL TUNNEL RELEASE 07/2010 Left foot Prior to Admission medications as of 02/27/18 0835 Medication Sig Last Dose Taking predniSONE (DELTASONE) 50 mg tab Take 1 tablet by mouth every 6 hours for 3 doses. For prevention of contrast allergy given 13 hrs, 7 hrs and 1 hr prior to exam. 02/27/2018 at 0800 Yes diphenhydrAMINE (BENADRYL) 50 mg capsule Take 1 capsule by mouth as directed for 1 dose. one (1) hour prior to exam. 02/27/2018 at 0800 Yes VITAMIN D 50,000 unit capsule TAKE ONE CAPSULE BY MOUTH ONCE A WEEK Yes cromolyn (INTAL) 20 mg/2 mL nebulizer solution Use 2 mL via nebulizer four times daily. Yes levalbuterol (XOPENEX) 1.25 mg/3 mL nebulizer solution Use 1 Ampule via nebulizer every 4 hours as needed. Inhale over 5-15 minutes Yes fluticasone (FLONASE) 50 mcg/actuation nasal spray 1-2 sprays each side qd Yes budesonide (PULMICORT) 0.5 mg/2 mL nebulizer solution Use 1 Ampule via nebulizer twice daily. 02/27/2018 at 0700 Yes Azelastine 0.15 % (205.5 mcg) spry Use 1 Wilberforce in each nostril twice daily. Yes fluticasone-vilanterol (BREO ELLIPTA) 200-25 mcg/dose inhaler Inhale 1 Inhalation as instructed once daily. Yes oseltamivir (TAMIFLU) 75 mg capsule Take 1 capsule by mouth twice daily. Yes acetaminophen (TYLENOL EXTRA STRENGTH) 500 mg tablet Take 500 mg by mouth every 8 hours as needed. Yes nitroglycerin sublingual (NITROQUICK) 0.4 mg SL tablet DISSOLVE 1 TABLET UNDER THE TONGUE NEEDED FOR CHEST PAIN. IF NO RELIEF, CALL 911 Yes triamcinolone acetonide (KENALOG) 0.1 % cream Apply 1 application to affected area three times daily. Apply to affected area. Location: arms Yes doxazosin (CARDURA) 4 mg tablet Take 1 tablet by mouth once daily. 02/27/2018 at Unknown time Yes amLODIPine (NORVASC) 10 mg tablet Take 1 tablet by mouth once daily. 02/27/2018 at 0700 Yes EPINEPHrine (EPIPEN) 0.3 mg/0.3 mL auto-injector Inject 0.3 mL intramuscularly as needed. Inject full content of the syringe. Yes diphenhydrAMINE (BENADRYL) 25 mg tablet Take 1 tablet by mouth every 6 hours as needed for Itching/Rash. Yes pregabalin (LYRICA) 150 mg capsule Take 1 capsule by mouth twice daily for 181 days. Yes spironolactone (ALDACTONE) 50 mg tablet Take 1 tablet by mouth twice daily. 02/27/2018 at 0700 Yes lansoprazole (PREVACID) 30 mg capsule TAKE 1 CAPSULE TWICE A DAY 02/27/2018 at 0700 Yes bumetanide (BUMEX) 0.5 mg tablet Take 1 tablet by mouth once daily. 02/27/2018 at Unknown time Yes albuterol HFA (PROAIR HFA) 90 mcg/actuation inhaler Inhale 2 Puffs as instructed every 6 hours as needed for Wheezing/Shortness of Breath. 02/27/2018 at 0700 Yes cholestyramine-sucrose (QUESTRAN) 4 gram powder Take 1 scoop by mouth once daily. 02/26/2018 at Unknown time Yes cyanocobalamin (VITAMIN B-12) 1,000 mcg tab Take 1 tablet by mouth once daily. Yes TURMERIC ROOT EXTRACT ORAL Take 1 tablet by mouth twice daily. Yes crisaborole (EUCRISA) 2 % oint Apply to the hands twice daily Yes COMPOUNDED PRESCRIPTION Please provide patient with nebulizer machine and supplies. Diagnosis: Severe Asthma. Yes cetirizine (ZYRTEC) 10 mg tablet Take 10 mg by mouth once daily. 02/27/2018 at Unknown time Yes pimecrolimus (ELIDEL) 1 % cream Apply twice daily to the hands Yes ondansetron (ZOFRAN) 4 mg tablet Take 1 tablet by mouth every 8 hours as needed. 02/27/2018 at 0700 Yes Benzonatate 200 mg capsule Take 200 mg by mouth three times daily as needed for Cough. Yes lactobacillus rhamnosus (CULTURELLE) 10 billion cell capsule Take 1 capsule by mouth twice daily. Yes zafirlukast (ACCOLATE) 20 mg tablet Take 1 tablet by mouth twice daily. 02/27/2018 at 0700 Yes cycloSPORINE Modified 50 mg capsule Take 50 mg by mouth twice daily. Yes ascorbic acid (VITAMIN C) 500 mg tablet Take 1 tablet by mouth once daily. 02/26/2018 at Unknown time Yes docusate sodium (COLACE) 100 mg capsule Take 1 capsule by mouth twice daily as needed. aspirin, enteric coated (ASPIRIN, ENTERIC COATED) 325 mg EC tablet Take 1 tablet by mouth once daily. 02/25/2018 pregabalin (LYRICA) 150 mg capsule Take 1 capsule by mouth twice daily for 90 days. atorvastatin (LIPITOR) 20 mg tablet One tab on MWF only at 1900 ALLERGIES Allergen Reactions - Avocado Anaphylaxis - Banana Anaphylaxis - Carbinoxamine Anaphylaxis - Yoselin Seed Anaphylaxis - Ciprofloxacin Anaphylaxis - Codeine Anaphylaxis - Contrast Dye Anaphylaxis To MRI and CT - Fish Anaphylaxis - Hycodan [Hydrocodon* Anaphylaxis Face and throat swelling - Latex Anaphylaxis - Imtiaz-Synephrine [Phe* Anaphylaxis 10% eye drop - Nickel Rash, Hives, Anaphylaxis - Nsaids (Non-Steroid* Other: See Comments Kidney function drops; reversible kidney damage. - Oxycodone Anaphylaxis - Periactin [Cyprohep* Anaphylaxis - Pneumococcal Vaccine Anaphylaxis - Shellfish Anaphylaxis - Zantac [Ranitidine] Anaphylaxis - Ativan [Lorazepam] Other: See Comments hallucination - Bee Sting Anaphylaxis - Beef Containing Pro* Rash - Berino Other: See Comments Feels like an asthma attack. - Eggs [Egg] Rash, Vomiting - Ekg Leads [Adhesive] Rash Localized,only under the leads - Environmental [Othe* Other: See Comments Nasal congestion, brings on an asthma attack. - Influenza Virus Vac* Shortness of Breath - Lisinopril Cough - Milk Rash, Vomiting - Mometasone Anaphylaxis Per Dr. Salas she tolerates formoterol (on Breo at home) but is allergic to mometasone. Okayed by him to update. - Surgical Tape [Othe* Rash, Swelling Oral rash, swelling of eyes, asthma attacks; per pateint report. - Xolair [Omalizumab] Shortness of Breath Objective PHYSICAL EXAM: AIRWAY: Airway Visualization of Uvula: Yes Mouth opening greater than 2 fingerbreadths: Yes Neck Full Range of Motion: Yes LUNGS: Lungs clear to auscultation, Good diaphragmatic excursion CARDIAC: Rhythm: regular rate and rhythm The remainder of the physical exam is noncontributory. Assessment/Plan ASA Class: ASA Class:: Patient with severe systemic disease Provisional Diagnosis/Treatment Plan: Adrenal venous sampling SEDATION GOAL: Moderate SIGNATURE: Neisha Kirkland MD PATIENT NAME: Ralph Joshi DATE: February 27, 2018 TIME: 9:03 AM PAGER: [phone] CNNURSE Observed: 02/23/2018 Status: COMPLETED Source: [place] 10:45 AM [facility] REPOSITORY Nurse Visit (ORFTMN) RALPH JOSHI ([id number]) 1955 F Date Time Provider Department 02/23/18 10:45 AM HERMELINDA GALO (RN) ORFTMN During your visit today, we recorded the following information about you: Hermelinda Galo RN, RN 02/23/2018 10:13 AM Signed Under the direction of Dr. Murphy and supervision of Rosemary Stanley PA-C, Ralph Joshi is seen today 4 weeks post operative from Her: 1. ?Left foot removal of hardware 2. ?Left foot calcaneus osteotomy. 3. Left achilles tendon lengthening. 4. Left peroneal tenosynovectomy. 5. Left peroneus brevis tendon repair done on . cast removed and incision(s) examined. CDI. Sutures removed, steri strips and DSD re-applied. Into boot. She will remain NEB in boot but will work on ROM of the ankle 6-10 times daily. Ralph Joshi will continue to take ASA 325 mg daily and elevate above heart level. Return to clinic in 3 weeks to see me for x-ray 3 views NWB of left foot out of boot. ORTH CARE COORDINATION POST OPERATIVE NURSE VISIT Patient has been identified by name and date of : Yes Patient is accompanied by: Surgery: 1. ?Left foot removal of hardware 2. ?Left foot calcaneus osteotomy. 3. Left achilles tendon lengthening. 4. Left peroneal tenosynovectomy. 5. Left peroneus brevis tendon repair. Date of Surgery: January 25, 2018 Activity? NWB in boot with ROM of ankle Incision? Healing with steri strips in place Follow up Appointment? 4 weeks Patient aware of goals, to return to ADL's, Yes. Any barriers to achieving goal? No PAIN EVALUATION No data found. Medication Update: Yes: Date: February 23, 2018 Hermelinda Galo, RN Hermelinda Galo, RN, RN 02/23/2018 10:13 AM Signed See nursing note. Hermelinda Galo RN Referring Provider: IVETTE MURPHY [[id number]] Allergies As of Date: 02/23/2018 Noted Allergy Reaction AVOCADO 09/10/2014 10 - Anaphylaxis BANANA 09/10/2014 10 - Anaphylaxis CARBINOXAMINE 09/17/2012 10 - Anaphylaxis YOSELIN SEED 08/28/2013 10 - Anaphylaxis CIPROFLOXACIN 04/11/2014 10 - Anaphylaxis CODEINE 01/12/2012 10 - Anaphylaxis CONTRAST DYE 05/17/2013 10 - Anaphylaxis Comments: To MRI and CT FISH 09/07/2014 10 - Anaphylaxis HYCODAN (HYDROCODONE-HOMATROPINE) 09/08/2011 10 - Anaphylaxis Comments: Face and throat swelling LATEX 01/21/2014 10 - Anaphylaxis IMTIAZ-SYNEPHRINE (PHENYLEPHRINE HCL)09/04/2014 10 - Anaphylaxis Comments: 10% eye drop NICKEL 01/07/2014 2 - Rash 4 - Hives 10 - Anaphylaxis NSAIDS (NON-STEROIDAL ANTI-INFLAM*08/16/2010 14 - Other: See Comments Comments: Kidney function drops; reversible kidney damage. OXYCODONE 08/28/2013 10 - Anaphylaxis PERIACTIN (CYPROHEPTADINE) 09/17/2012 10 - Anaphylaxis PNEUMOCOCCAL VACCINE 10/31/2014 10 - Anaphylaxis SHELLFISH 09/07/2014 10 - Anaphylaxis ZANTAC (RANITIDINE) 09/17/2012 10 - Anaphylaxis ATIVAN (LORAZEPAM) 08/28/2013 14 - Other: See Comments Comments: hallucination BEE STING 10/31/2017 10 - Anaphylaxis BEEF CONTAINING PRODUCTS 09/10/2014 2 - Rash CORN 05/03/2011 14 - Other: See Comments Comments: Feels like an asthma attack. EGGS (EGG) 03/08/2011 2 - Rash 11 - Vomiting EKG LEADS (ADHESIVE) 10/22/2012 2 - Rash Comments: Localized,only under the leads environmental [Other] 06/26/2007 14 - Other: See Comments Comments: Nasal congestion, brings on an asthma attack. INFLUENZA VIRUS VACCINES 10/22/2012 12 - Shortness of Breath LISINOPRIL 04/20/2004 3 - Cough MILK 03/08/2011 2 - Rash 11 - Vomiting MOMETASONE 04/05/2017 10 - Anaphylaxis Comments: Per Dr. Salas she tolerates formoterol (on Breo at home) but is allergic to mometasone. Okayed by him to update. surgical tape [Other] 11/10/2009 2 - Rash 7 - Swelling Comments: Oral rash, swelling of eyes, asthma attacks; per pateint report. XOLAIR (OMALIZUMAB) 04/19/2012 12 - Shortness of Breath Date Reviewed: 02/23/2018 Reviewed by: Hermelinda Storey) JONATHAN Galo - Fully Assessed Reason for Visit: Post Op [174] Cmt: 1. ?Left foot removal of hardware Primary Visit Diagnosis:Retained orthopedic hardware [Z96.9] Other Visit Diagnosis:Peroneal tendinitis, left [M76.72] Prescriptions as of 02/23/2018 Sig: VITAMIN D2 50,000 UNIT CAPSULE TAKE ONE CAPSULE BY MOUTH ONC* ENOXAPARIN 40 MG/0.4 ML SUBCU* Inject 0.4 mL subcutaneously * DOCUSATE SODIUM 100 MG CAPSULE Take 1 capsule by mouth twice* ASPIRIN 325 MG TABLET,DELAYED* Take 1 tablet by mouth once d* CROMOLYN 20 MG/2 ML SOLUTION * Use 2 mL via nebulizer four t* LEVALBUTEROL 1.25 MG/3 ML BRENDA* Use 1 Ampule via nebulizer ev* FLUTICASONE 50 MCG/ACTUATION * 1-2 sprays each side qd BUDESONIDE 0.5 MG/2 ML SUSPEN* Use 1 Ampule via nebulizer tw* AZELASTINE 0.15 % (205.5 MCG)* Use 1 Wilberforce in each nostril t* FLUTICASONE 200 MCG-VILANTERO* Inhale 1 Inhalation as instru* OSELTAMIVIR 75 MG CAPSULE Take 1 capsule by mouth twice* ACETAMINOPHEN 500 MG TABLET Take 500 mg by mouth every 8 * NITROGLYCERIN 0.4 MG SUBLINGU* DISSOLVE 1 TABLET UNDER THE T* TRIAMCINOLONE ACETONIDE 0.1 %* Apply 1 application to affect* DOXAZOSIN 4 MG TABLET Take 1 tablet by mouth once d* AMLODIPINE 10 MG TABLET Take 1 tablet by mouth once d* EPINEPHRINE 0.3 MG/0.3 ML INJ* Inject 0.3 mL intramuscularly* DIPHENHYDRAMINE 25 MG TABLET Take 1 tablet by mouth every * PREGABALIN 150 MG CAPSULE Take 1 capsule by mouth twice* PREGABALIN 150 MG CAPSULE Take 1 capsule by mouth twice* ATORVASTATIN 20 MG TABLET One tab on MWF only SPIRONOLACTONE 50 MG TABLET Take 1 tablet by mouth twice * LANSOPRAZOLE 30 MG CAPSULE,DE* TAKE 1 CAPSULE TWICE A DAY BUMETANIDE 0.5 MG TABLET Take 1 tablet by mouth once d* ALBUTEROL SULFATE HFA 90 MCG/* Inhale 2 Puffs as instructed * CHOLESTYRAMINE (WITH SUGAR) 4* Take 1 scoop by mouth once da* CYANOCOBALAMIN (VIT B-12) 1,0* Take 1 tablet by mouth once d* TURMERIC ROOT EXTRACT ORAL Take 1 tablet by mouth twice * CRISABOROLE 2 % TOPICAL OINTM* Apply to the hands twice daily COMPOUNDED PRESCRIPTION Please provide patient with n* CETIRIZINE 10 MG TABLET Take 10 mg by mouth once mary ellen* PIMECROLIMUS 1 % TOPICAL CREAM Apply twice daily to the hands ONDANSETRON HCL 4 MG TABLET Take 1 tablet by mouth every * BENZONATATE 200 MG CAPSULE Take 200 mg by mouth three ti* LACTOBACILLUS RHAMNOSUS GG 10* Take 1 capsule by mouth twice* ZAFIRLUKAST 20 MG TABLET Take 1 tablet by mouth twice * CYCLOSPORINE MODIFIED 50 MG C* Take 50 mg by mouth twice liam* ASCORBIC ACID (VITAMIN C) 500* Take 1 tablet by mouth once d* Problem List As Of Date 02/23/2018 Noted Resolved JOINT PAIN-ANKLE [M25.579] INVALID FOR*03/20/2014 Edema [R60.9] INVALID FOR*03/28/2016 Priority: I Adrenal nodule (HCC) [E27.9] INVALID FOR* More... Diarrhea [R19.7] INVALID FOR*10/15/2013 Excessive or frequent menstruation [N92.0] INVALID FOR*07/14/2011 Shortness of breath [R06.02] INVALID FOR*10/15/2013 Palpitations [R00.2] INVALID FOR*03/20/2014 Tachycardia, unspecified [R00.0] INVALID FOR*10/15/2013 More... Open wound site NOS [T14.8XXA] INVALID FOR*07/16/2011 Abdominal pain, right upper quadrant [R10.11] INVALID FOR*07/14/2011 More... Acute gastritis without mention of hemorrhage [*INVALID FOR*10/15/2013 Hematuria [599.7] INVALID FOR*07/14/2011 URGE INCONTINENCE [N39.41] INVALID FOR* FEMALE STRESS INCONTINENCE [N39.3] INVALID FOR* Scar, hypertrophic [L91.0] INVALID FOR*10/15/2013 Ovarian cyst [N83.209] INVALID FOR*07/06/2010 Cyst INVALID FOR*10/15/2013 Other specified pre-operative examination [Z01.*INVALID FOR*07/16/2011 Hirsutism [L68.0] INVALID FOR* Dysphagia [R13.10] INVALID FOR*03/20/2014 GERD (gastroesophageal reflux disease) [K21.9] INVALID FOR* Priority: D More... 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 Obesity (BMI 30.0-34.9) [E66.9] INVALID FOR* More... More... More... More... Idiopathic anaphylaxis [T78.2XXA] INVALID FOR* Priority: A More... Urticaria, idiopathic [L50.1] INVALID FOR*03/28/2016 More... Hyperlipidemia LDL goal <100 [E78.5] INVALID FOR* Impaired fasting glucose [R73.01] INVALID FOR* Recurrent chest pain [R07.9, G89.29] INVALID FOR*12/09/2014 Multinodular goiter [E04.2] INVALID FOR* More... CKD (chronic kidney disease) stage 3, GFR 30-59*INVALID FOR* Pain in joint, ankle and foot [M25.579] INVALID FOR*12/09/2014 More... More... Steroid-induced hyperglycemia [R73.9, T38.0X5A] INVALID FOR*03/28/2016 Priority: C Moderate persistent asthma without complication*INVALID FOR* Ulcerative colitis without complications (HCC) *INVALID FOR* Anaphylaxis [T78.2XXA] INVALID FOR*03/26/2015 More... Neck pain, bilateral [M54.2] INVALID FOR*03/28/2016 Essential hypertension with goal blood pressure*INVALID FOR*03/28/2016 Chronic nausea [R11.0] INVALID FOR* Lumbar radiculitis [M54.16] INVALID FOR*03/28/2016 Lumbar stenosis [M48.061] INVALID FOR*03/28/2016 Acquired spondylolisthesis [M43.10] INVALID FOR*03/28/2016 Cervical radiculitis [M54.12] INVALID FOR*03/28/2016 Cervical spondylosis with radiculopathy [M47.22]INVALID FOR*03/29/2017 Shoulder impingement [M75.40] INVALID FOR*03/28/2016 Anaphylaxis [T78.2XXA] INVALID FOR*03/28/2016 Tendonitis, tibialis [M76.829] INVALID FOR*05/09/2016 Lumbar stenosis [M48.061] INVALID FOR* Cervical radiculitis [M54.12] INVALID FOR*03/29/2017 Cervical herniated disc [M50.20] INVALID FOR*03/29/2017 Cervical stenosis of spine [M48.02] INVALID FOR* Cervical spondylosis with myelopathy [M47.12] INVALID FOR*03/29/2017 Cervical myelopathy (HCC) [G95.9] INVALID FOR*03/29/2017 Claustrophobia [F40.240] INVALID FOR* Ptosis of eyelid, bilateral [H02.403] INVALID FOR*03/29/2017 More... Lumbar spondylosis [M47.816] INVALID FOR* More... Preop testing [Z01.818] INVALID FOR* More... Anaphylaxis [T78.2XXA] INVALID FOR* Essential hypertension [I10] INVALID FOR* Peroneal tendinitis, left [M76.72] INVALID FOR* Retained orthopedic hardware [Z96.9] INVALID FOR* More... Peroneal tendonitis of left lower extremity [M7*INVALID FOR* More... Visit Notes: >> Hermelinda Storey) JONATHAN Galo MonFeb 23, 2018 10:08 AM Status: Signed Under the direction of Dr. Murphy and supervision of Rosemary Stanley PA-C, Ralph Joshi is seen today 4 weeks post operative from Her: 1. ?Left foot removal of hardware 2. ?Left foot calcaneus osteotomy. 3. Left achilles tendon lengthening. 4. Left peroneal tenosynovectomy. 5. Left peroneus brevis tendon repair done on . cast removed and incision(s) examined. CDI. Sutures removed, steri strips and DSD re-applied. Into boot. She will remain NEB in boot but will work on ROM of the ankle 6-10 times daily. Ralph Joshi will continue to take ASA 325 mg daily and elevate above heart level. Return to clinic in 3 weeks to see me for x-ray 3 views NWB of left foot out of boot. ORTH CARE COORDINATION POST OPERATIVE NURSE VISIT Patient has been identified by name and date of : Yes Patient is accompanied by: Surgery: 1. ?Left foot removal of hardware 2. ?Left foot calcaneus osteotomy. 3. Left achilles tendon lengthening. 4. Left peroneal tenosynovectomy. 5. Left peroneus brevis tendon repair. Date of Surgery: January 25, 2018 Activity? NWB in boot with ROM of ankle Incision? Healing with steri strips in place Follow up Appointment? 4 weeks Patient aware of goals, to return to ADL's, Yes. Any barriers to achieving goal? No PAIN EVALUATION No data found. Medication Update: Yes: Date: February 23, 2018 Hermelinda Galo RN Encounter Status:Closed by HERMELINDA GALO on 02/23/18 PROGRESS Observed: 02/23/2018 Status: COMPLETED Source: [place] 10:39 AM [facility] REPOSITORY HNO ID: [id number] Author: Nito MinoriPosition) [facility] Service: (none) Author Type: Balance Recesser Type: Progress Notes Filed: 02/23/2018 10:40 AM Note Text: PT ASSESSMENT - CASTING ROOM Ralph presents for Application of boot. Applied pneumatic aircast walker to Left leg non-weight bearing Patient has been instructed in Care of boot.. Nito Dillonhhgregg Beeper: [id number] PROGRESS Observed: 02/23/2018 Status: COMPLETED Source: [place] 10:12 AM [facility] REPOSITORY HNO ID: [id number] Author: Hermelinda MinorRn) JONATHAN Galo Service: (none) Author Type: Registered Nurse Type: Progress Notes Filed: 02/23/2018 10:13 AM Note Text: See nursing note. Hermelinda Galo RN CNOV Observed: 02/22/2018 Status: COMPLETED Source: [place] 10:40 AM [facility] REPOSITORY Office Visit (SPNSST) RALPH JOSHI ([id number]) 1955 F Date Time Provider Department 02/22/18 10:40 AM FANTA COKER During your visit today, we recorded the following information about you: Respiration Weight Height 16/minute 92.1 kg 1.626 m Liam Payne Ma 02/22/2018 10:24 AM Addendum Ralph Pratibha Joshi is a 62 year old female who is here for a follow up today for arm pain. Previous Workup: Images in [facility] ROOMING INTAKE FLOWSHEET DATA Risk Screening Do you have concerns about personal safety or safety in the home?: No Pain Pain Score: 5/10 Pain Location: Other: See Comment (arms and left hand) Description: Numbness, Sharp Duration Amount of Time: 6 Duration Units: Months Frequency: Continuous Intervention: Medication, Reposition, Relaxation Ravinder Bhatia Ma, MD 02/22/2018 11:30 AM Signed SPINE SURGERY FOLLOW UP DATE: ?10/25/2016 ? OPERATION: ?C5-6 and C6-7 anterior cervical diskectomy, partial corpectomy C6, use ?of operating microscope, decompression of spinal cord and nerve roots of C6 and C7 ?bilaterally, interbody fusion C5-6 and C6-7 using cortical cancellous allograft cage ?and placement of a cervical anterior plate (Antonio) Since last visit patient underwent left foot surgery due to deformed foot. She is no weight bearing on that leg. This could be contributing to the event fall she had and the unsteadiness feeling. Following the fall she started complaining of right shoulder pain induced by shoulder abduction > 90 degrees. She continue to have numbness of left hand and bilateral lateral arm pain (symptoms she had prior to surgery) and is stable. Her balance was not assessed recently since she is in wheelchair following her foot surgery. PHYSICAL EXAM: GENERAL APPEARANCE: Well nourished, well developed, and no apparent distress. NEURO PSYCH: Patient oriented to person, place, and time. Mood pleasant. Benign affect. MUSCULOSKELETAL VISUAL INSPECTION CERVICAL: WNL THORACIC: WNL LUMBAR: WNL MOTOR: RUE D 4+/5, B 4+/5, T 4+/5 G 5/5 HI 5/5. Rest is 5/5 SENSORY: numbness over the left palm GAIT: Unable to assess due to no weight bearing left foot. Currently in wheelchair. Induced right shoulder pain when loading the acromion. DATA REVIEW MRI XR ASSESSMENT/PLAN Bilateral arm and shoulder pain, possible C5 radiculopathy; C4-5 ASDz; neurologically normal Recommend: ? C5 b/l SNRB for diagnosis Narciso Jenkins MD, fellow Fanta Shaikh PA-C 02/26/2018 1:26 PM Signed Addended by: FRANCESCO SHIAKH PA-C on: 02/26/2018 01:26 PM Modules accepted: Orders Referring Provider: FRANCESCO SHAIKH (LENNY) [[id number]] Allergies As of Date: 02/22/2018 Noted Allergy Reaction AVOCADO 09/10/2014 10 - Anaphylaxis BANANA 09/10/2014 10 - Anaphylaxis CARBINOXAMINE 09/17/2012 10 - Anaphylaxis YOSELIN SEED 08/28/2013 10 - Anaphylaxis CIPROFLOXACIN 04/11/2014 10 - Anaphylaxis CODEINE 01/12/2012 10 - Anaphylaxis CONTRAST DYE 05/17/2013 10 - Anaphylaxis Comments: To MRI and CT FISH 09/07/2014 10 - Anaphylaxis HYCODAN (HYDROCODONE-HOMATROPINE) 09/08/2011 10 - Anaphylaxis Comments: Face and throat swelling LATEX 01/21/2014 10 - Anaphylaxis IMTIAZ-SYNEPHRINE (PHENYLEPHRINE HCL)09/04/2014 10 - Anaphylaxis Comments: 10% eye drop NICKEL 01/07/2014 2 - Rash 4 - Hives 10 - Anaphylaxis NSAIDS (NON-STEROIDAL ANTI-INFLAM*08/16/2010 14 - Other: See Comments Comments: Kidney function drops; reversible kidney damage. OXYCODONE 08/28/2013 10 - Anaphylaxis PERIACTIN (CYPROHEPTADINE) 09/17/2012 10 - Anaphylaxis PNEUMOCOCCAL VACCINE 10/31/2014 10 - Anaphylaxis SHELLFISH 09/07/2014 10 - Anaphylaxis ZANTAC (RANITIDINE) 09/17/2012 10 - Anaphylaxis ATIVAN (LORAZEPAM) 08/28/2013 14 - Other: See Comments Comments: hallucination BEE STING 10/31/2017 10 - Anaphylaxis BEEF CONTAINING PRODUCTS 09/10/2014 2 - Rash CORN 05/03/2011 14 - Other: See Comments Comments: Feels like an asthma attack. EGGS (EGG) 03/08/2011 2 - Rash 11 - Vomiting EKG LEADS (ADHESIVE) 10/22/2012 2 - Rash Comments: Localized,only under the leads environmental [Other] 06/26/2007 14 - Other: See Comments Comments: Nasal congestion, brings on an asthma attack. INFLUENZA VIRUS VACCINES 10/22/2012 12 - Shortness of Breath LISINOPRIL 04/20/2004 3 - Cough MILK 03/08/2011 2 - Rash 11 - Vomiting MOMETASONE 04/05/2017 10 - Anaphylaxis Comments: Per Dr. Salas she tolerates formoterol (on Breo at home) but is allergic to mometasone. Okayed by him to update. surgical tape [Other] 11/10/2009 2 - Rash 7 - Swelling Comments: Oral rash, swelling of eyes, asthma attacks; per pateint report. XOLAIR (OMALIZUMAB) 04/19/2012 12 - Shortness of Breath Date Reviewed: 02/22/2018 Reviewed by: Liam Payne Ma - Fully Assessed Reason for Visit: Follow Up [171] Reason For Visit History Recorded Primary Visit Diagnosis:Cervical vertebral fusion [M43.22] Other Visit Diagnosis:Cervical disc disorder with radiculopathy [M50.10] Order(s):CONSULT TO PAIN MGT ANESTHESIA [19990723] Order #: [id number]: 1 Prescriptions as of 02/22/2018 Sig: VITAMIN D2 50,000 UNIT CAPSULE TAKE ONE CAPSULE BY MOUTH ONC* ENOXAPARIN 40 MG/0.4 ML SUBCU* Inject 0.4 mL subcutaneously * DOCUSATE SODIUM 100 MG CAPSULE Take 1 capsule by mouth twice* ASPIRIN 325 MG TABLET,DELAYED* Take 1 tablet by mouth once d* CROMOLYN 20 MG/2 ML SOLUTION * Use 2 mL via nebulizer four t* LEVALBUTEROL 1.25 MG/3 ML BRENDA* Use 1 Ampule via nebulizer ev* FLUTICASONE 50 MCG/ACTUATION * 1-2 sprays each side qd BUDESONIDE 0.5 MG/2 ML SUSPEN* Use 1 Ampule via nebulizer tw* AZELASTINE 0.15 % (205.5 MCG)* Use 1 Wilberforce in each nostril t* FLUTICASONE 200 MCG-VILANTERO* Inhale 1 Inhalation as instru* OSELTAMIVIR 75 MG CAPSULE Take 1 capsule by mouth twice* ACETAMINOPHEN 500 MG TABLET Take 500 mg by mouth every 8 * NITROGLYCERIN 0.4 MG SUBLINGU* DISSOLVE 1 TABLET UNDER THE T* TRIAMCINOLONE ACETONIDE 0.1 %* Apply 1 application to affect* DOXAZOSIN 4 MG TABLET Take 1 tablet by mouth once d* AMLODIPINE 10 MG TABLET Take 1 tablet by mouth once d* EPINEPHRINE 0.3 MG/0.3 ML INJ* Inject 0.3 mL intramuscularly* DIPHENHYDRAMINE 25 MG TABLET Take 1 tablet by mouth every * PREGABALIN 150 MG CAPSULE Take 1 capsule by mouth twice* PREGABALIN 150 MG CAPSULE Take 1 capsule by mouth twice* ATORVASTATIN 20 MG TABLET One tab on MWF only SPIRONOLACTONE 50 MG TABLET Take 1 tablet by mouth twice * LANSOPRAZOLE 30 MG CAPSULE,DE* TAKE 1 CAPSULE TWICE A DAY BUMETANIDE 0.5 MG TABLET Take 1 tablet by mouth once d* ALBUTEROL SULFATE HFA 90 MCG/* Inhale 2 Puffs as instructed * CHOLESTYRAMINE (WITH SUGAR) 4* Take 1 scoop by mouth once da* CYANOCOBALAMIN (VIT B-12) 1,0* Take 1 tablet by mouth once d* TURMERIC ROOT EXTRACT ORAL Take 1 tablet by mouth twice * CRISABOROLE 2 % TOPICAL OINTM* Apply to the hands twice daily COMPOUNDED PRESCRIPTION Please provide patient with n* CETIRIZINE 10 MG TABLET Take 10 mg by mouth once mary ellen* PIMECROLIMUS 1 % TOPICAL CREAM Apply twice daily to the hands ONDANSETRON HCL 4 MG TABLET Take 1 tablet by mouth every * BENZONATATE 200 MG CAPSULE Take 200 mg by mouth three ti* LACTOBACILLUS RHAMNOSUS GG 10* Take 1 capsule by mouth twice* ZAFIRLUKAST 20 MG TABLET Take 1 tablet by mouth twice * CYCLOSPORINE MODIFIED 50 MG C* Take 50 mg by mouth twice liam* ASCORBIC ACID (VITAMIN C) 500* Take 1 tablet by mouth once d* Problem List As Of Date 02/22/2018 Noted Resolved JOINT PAIN-ANKLE [M25.579] INVALID FOR*03/20/2014 Edema [R60.9] INVALID FOR*03/28/2016 Priority: I Adrenal nodule (HCC) [E27.9] INVALID FOR* More... Diarrhea [R19.7] INVALID FOR*10/15/2013 Excessive or frequent menstruation [N92.0] INVALID FOR*07/14/2011 Shortness of breath [R06.02] INVALID FOR*10/15/2013 Palpitations [R00.2] INVALID FOR*03/20/2014 Tachycardia, unspecified [R00.0] INVALID FOR*10/15/2013 More... Open wound site NOS [T14.8XXA] INVALID FOR*07/16/2011 Abdominal pain, right upper quadrant [R10.11] INVALID FOR*07/14/2011 More... Acute gastritis without mention of hemorrhage [*INVALID FOR*10/15/2013 Hematuria [599.7] INVALID FOR*07/14/2011 URGE INCONTINENCE [N39.41] INVALID FOR* FEMALE STRESS INCONTINENCE [N39.3] INVALID FOR* Scar, hypertrophic [L91.0] INVALID FOR*10/15/2013 Ovarian cyst [N83.209] INVALID FOR*07/06/2010 Cyst INVALID FOR*10/15/2013 Other specified pre-operative examination [Z01.*INVALID FOR*07/16/2011 Hirsutism [L68.0] INVALID FOR* Dysphagia [R13.10] INVALID FOR*03/20/2014 GERD (gastroesophageal reflux disease) [K21.9] INVALID FOR* Priority: D More... 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 Obesity (BMI 30.0-34.9) [E66.9] INVALID FOR* More... More... More... More... Idiopathic anaphylaxis [T78.2XXA] INVALID FOR* Priority: A More... Urticaria, idiopathic [L50.1] INVALID FOR*03/28/2016 More... Hyperlipidemia LDL goal <100 [E78.5] INVALID FOR* Impaired fasting glucose [R73.01] INVALID FOR* Recurrent chest pain [R07.9, G89.29] INVALID FOR*12/09/2014 Multinodular goiter [E04.2] INVALID FOR* More... CKD (chronic kidney disease) stage 3, GFR 30-59*INVALID FOR* Pain in joint, ankle and foot [M25.579] INVALID FOR*12/09/2014 More... More... Steroid-induced hyperglycemia [R73.9, T38.0X5A] INVALID FOR*03/28/2016 Priority: C Moderate persistent asthma without complication*INVALID FOR* Ulcerative colitis without complications (HCC) *INVALID FOR* Anaphylaxis [T78.2XXA] INVALID FOR*03/26/2015 More... Neck pain, bilateral [M54.2] INVALID FOR*03/28/2016 Essential hypertension with goal blood pressure*INVALID FOR*03/28/2016 Chronic nausea [R11.0] INVALID FOR* Lumbar radiculitis [M54.16] INVALID FOR*03/28/2016 Lumbar stenosis [M48.061] INVALID FOR*03/28/2016 Acquired spondylolisthesis [M43.10] INVALID FOR*03/28/2016 Cervical radiculitis [M54.12] INVALID FOR*03/28/2016 Cervical spondylosis with radiculopathy [M47.22]INVALID FOR*03/29/2017 Shoulder impingement [M75.40] INVALID FOR*03/28/2016 Anaphylaxis [T78.2XXA] INVALID FOR*03/28/2016 Tendonitis, tibialis [M76.829] INVALID FOR*05/09/2016 Lumbar stenosis [M48.061] INVALID FOR* Cervical radiculitis [M54.12] INVALID FOR*03/29/2017 Cervical herniated disc [M50.20] INVALID FOR*03/29/2017 Cervical stenosis of spine [M48.02] INVALID FOR* Cervical spondylosis with myelopathy [M47.12] INVALID FOR*03/29/2017 Cervical myelopathy (HCC) [G95.9] INVALID FOR*03/29/2017 Claustrophobia [F40.240] INVALID FOR* Ptosis of eyelid, bilateral [H02.403] INVALID FOR*03/29/2017 More... Lumbar spondylosis [M47.816] INVALID FOR* More... Preop testing [Z01.818] INVALID FOR* More... Anaphylaxis [T78.2XXA] INVALID FOR* Essential hypertension [I10] INVALID FOR* Peroneal tendinitis, left [M76.72] INVALID FOR* Retained orthopedic hardware [Z96.9] INVALID FOR* More... Peroneal tendonitis of left lower extremity [M7*INVALID FOR* More... Visit Notes: >> Liam Payne Ma Claudia Feb 22, 2018 10:16 AM Status: Addendum Ralph Joshi is a 62 year old female who is here for a follow up today for arm pain. Previous Workup: Images in [facility] ROOMING INTAKE FLOWSHEET DATA Risk Screening Do you have concerns about personal safety or safety in the home?: No Pain Pain Score: 5/10 Pain Location: Other: See Comment (arms and left hand) Description: Numbness, Sharp Duration Amount of Time: 6 Duration Units: Months Frequency: Continuous Intervention: Medication, Reposition, Relaxation Liam Payne Ma, Ma Encounter Status:Closed by FANTA COKER MD on 02/22/18 PROGRESS Observed: 02/22/2018 Status: COMPLETED Source: [place] 10:37 AM [facility] REPOSITORY HNO ID: [id number] Author: Fanta Coker Service: (none) Author Type: Physician Type: Progress Notes Filed: 02/22/2018 11:30 AM Note Text: SPINE SURGERY FOLLOW UP DATE: ?10/25/2016 ? OPERATION: ?C5-6 and C6-7 anterior cervical diskectomy, partial corpectomy C6, use ?of operating microscope, decompression of spinal cord and nerve roots of C6 and C7 ?bilaterally, interbody fusion C5-6 and C6-7 using cortical cancellous allograft cage ?and placement of a cervical anterior plate (Lotus) Since last visit patient underwent left foot surgery due to deformed foot. She is no weight bearing on that leg. This could be contributing to the event fall she had and the unsteadiness feeling. Following the fall she started complaining of right shoulder pain induced by shoulder abduction > 90 degrees. She continue to have numbness of left hand and bilateral lateral arm pain (symptoms she had prior to surgery) and is stable. Her balance was not assessed recently since she is in wheelchair following her foot surgery. PHYSICAL EXAM: GENERAL APPEARANCE: Well nourished, well developed, and no apparent distress. NEURO PSYCH: Patient oriented to person, place, and time. Mood pleasant. Benign affect. MUSCULOSKELETAL VISUAL INSPECTION CERVICAL: WNL THORACIC: WNL LUMBAR: WNL MOTOR: RUE D 4+/5, B 4+/5, T 4+/5 G 5/5 HI 5/5. Rest is 5/5 SENSORY: numbness over the left palm GAIT: Unable to assess due to no weight bearing left foot. Currently in wheelchair. Induced right shoulder pain when loading the acromion. DATA REVIEW MRI XR ASSESSMENT/PLAN Bilateral arm and shoulder pain, possible C5 radiculopathy; C4-5 ASDz; neurologically normal Recommend: ? C5 b/l SNRB for diagnosis Narciso Jenkins MD, fellow Fanta Coker MD NURSING PROG Observed: 02/20/2018 Status: COMPLETED Source: [place] 2:47 PM [facility] [place] REPOSITORY HNO ID: [id number] Author: Saige MinorRn) JONATHAN Macario Service: Nursing Author Type: Registered Nurse Type: Nursing Progress Note Filed: 02/20/2018 2:50 PM Note Text: Pre-procedure phone calls: Contacted Ralph Joshi and confirmed appt. for venous sampling scheduled on Tuesday 02/27, at [facility]. I will be providing you with instructions if not followed; your procedure will be rescheduled. At the end of our conversation, I will be asking you a few questions, I will wait while you get a pen and paper. Diet: Do not eat any solid food after MN the night before your procedure. Please take your routine medications with small sips of clear liquids. You may drink clear liquids until 0700, which means black coffee or water only. Medications: IF ok with your Prescribing Provider: RADIOLOGY RECOMMENDS THESE MEDICATION RESTRICTIONS Lovenox: Hold Lovenox for 24 hours prior to this procedure. Contrast Dye Prep: Do you have a contrast dye allergy? Yes Prednisone 50 MG 2000 13 hours pre-procedure 0200 7 hours pre-procedure Prednisone 50 MG AND Benadryl 50MG 0800 1 hour pre-procedure Labs: Labs completed on 01/19 Arrival: Please bring your Photo ID and Insurance Card. A general consent may need to be signed. Arrive to [facility] ([facility]) Admitting/Registration by 0745. [facility] and check in for your procedure. Your anticipated procedure start time will be between 0915 AND 1015. Control Officer/Transportation: How will you be arriving for your procedure? private car. If you will be arriving at [facility] via ambulance or public transportation, please call to discuss. You will need a responsible adult to accompany you to and from the procedure. Your straddle truck driver is required to stay with you until you are taken into the Procedure room. Recovery expectations: You will be in the recovery room post procedure for a minimum of 2 Hours. Special concerns: Do you use CPAP or BPAP? No We do not want your procedure to be rescheduled I have a few questions for you... What is your arrival time to [facility]? 0745 What time do you stop eating food? MN What time can you have clears until? 0700 Tell me how you will be taking your medications the morning of your procedure? Hold Lovenox 24 hours, all other meds as usual If you have any questions please call [phone] CNNURSE Observed: 02/09/2018 Status: COMPLETED Source: [place] 12:45 PM [facility] REPOSITORY Nurse Visit (ORFTMN) RALPH JOSHI ([id number]) 1955 F Date Time Provider Department 02/09/18 12:45 PM HERMELINDA GALO (RN) ORFTMN During your visit today, we recorded the following information about you: Hermelinda Galo RN, RN 02/09/2018 12:32 PM Signed Under the direction of Dr. Murphy and supervision of Rosemary Stanley PA-C, Ralph Joshi is seen today 2 weeks post operative from Her: 1. ?Left foot removal of hardware 2. ?Left foot calcaneus osteotomy. 3. Left achilles tendon lengthening. 4. Left peroneal tenosynovectomy. 5. Left peroneus brevis tendon repair done on . cast removed and incision(s) examined. CDI. Sutures retained, and DSD re- applied. Into cast in neutral. Ralph Joshi will continue to take ASA 325 mg daily and elevate above heart level. Return to clinic in 2 weeks to see me for suture removal and placement into a NWB boot for ROM . No x-ray needed. ORTH CARE COORDINATION POST OPERATIVE NURSE VISIT Patient has been identified by name and date of : Yes Patient is accompanied by: Surgery: 1. ?Left foot removal of hardware 2. ?Left foot calcaneus osteotomy. 3. Left achilles tendon lengthening. 4. Left peroneal tenosynovectomy. 5. Left peroneus brevis tendon repair. Date of Surgery: February 01, 2018 Activity? NWB in cast Incision? Healing with sutures intact Follow up Appointment? 2 weeks Patient aware of goals, to return to ADL's, Yes. Any barriers to achieving goal? No PAIN EVALUATION No data found. Medication Update: Yes: Date: February 09, 2018 Hermelinda Galo, RN Hermelinda Galo, RN, RN 02/09/2018 12:32 PM Signed See nursing note. Hermelinda Galo RN Referring Provider: IVETTE MURPHY [[id number]] Allergies As of Date: 02/09/2018 Noted Allergy Reaction AVOCADO 09/10/2014 10 - Anaphylaxis BANANA 09/10/2014 10 - Anaphylaxis CARBINOXAMINE 09/17/2012 10 - Anaphylaxis YOSELIN SEED 08/28/2013 10 - Anaphylaxis CIPROFLOXACIN 04/11/2014 10 - Anaphylaxis CODEINE 01/12/2012 10 - Anaphylaxis CONTRAST DYE 05/17/2013 10 - Anaphylaxis Comments: To MRI and CT FISH 09/07/2014 10 - Anaphylaxis HYCODAN (HYDROCODONE-HOMATROPINE) 09/08/2011 10 - Anaphylaxis Comments: Face and throat swelling LATEX 01/21/2014 10 - Anaphylaxis IMTIAZ-SYNEPHRINE (PHENYLEPHRINE HCL)09/04/2014 10 - Anaphylaxis Comments: 10% eye drop NICKEL 01/07/2014 2 - Rash 4 - Hives 10 - Anaphylaxis NSAIDS (NON-STEROIDAL ANTI-INFLAM*08/16/2010 14 - Other: See Comments Comments: Kidney function drops; reversible kidney damage. OXYCODONE 08/28/2013 10 - Anaphylaxis PERIACTIN (CYPROHEPTADINE) 09/17/2012 10 - Anaphylaxis PNEUMOCOCCAL VACCINE 10/31/2014 10 - Anaphylaxis SHELLFISH 09/07/2014 10 - Anaphylaxis ZANTAC (RANITIDINE) 09/17/2012 10 - Anaphylaxis ATIVAN (LORAZEPAM) 08/28/2013 14 - Other: See Comments Comments: hallucination BEE STING 10/31/2017 10 - Anaphylaxis BEEF CONTAINING PRODUCTS 09/10/2014 2 - Rash CORN 05/03/2011 14 - Other: See Comments Comments: Feels like an asthma attack. EGGS (EGG) 03/08/2011 2 - Rash 11 - Vomiting EKG LEADS (ADHESIVE) 10/22/2012 2 - Rash Comments: Localized,only under the leads environmental [Other] 06/26/2007 14 - Other: See Comments Comments: Nasal congestion, brings on an asthma attack. INFLUENZA VIRUS VACCINES 10/22/2012 12 - Shortness of Breath LISINOPRIL 04/20/2004 3 - Cough MILK 03/08/2011 2 - Rash 11 - Vomiting MOMETASONE 04/05/2017 10 - Anaphylaxis Comments: Per Dr. Salas she tolerates formoterol (on Breo at home) but is allergic to mometasone. Okayed by him to update. surgical tape [Other] 11/10/2009 2 - Rash 7 - Swelling Comments: Oral rash, swelling of eyes, asthma attacks; per pateint report. XOLAIR (OMALIZUMAB) 04/19/2012 12 - Shortness of Breath Date Reviewed: 02/09/2018 Reviewed by: Hermelinda (Rn) JONATHAN Galo - Fully Assessed Reason for Visit: Post Op [174] Cmt: 1. ?Left foot removal of hardware Primary Visit Diagnosis:Retained orthopedic hardware [Z96.9] Other Visit Diagnosis:Peroneal tendonitis of left lower extremity [M76.72] Prescriptions as of 02/09/2018 Sig: ENOXAPARIN 40 MG/0.4 ML SUBCU* Inject 0.4 mL subcutaneously * DOCUSATE SODIUM 100 MG CAPSULE Take 1 capsule by mouth twice* ASPIRIN 325 MG TABLET,DELAYED* Take 1 tablet by mouth once d* CROMOLYN 20 MG/2 ML SOLUTION * Use 2 mL via nebulizer four t* LEVALBUTEROL 1.25 MG/3 ML BRENDA* Use 1 Ampule via nebulizer ev* FLUTICASONE 50 MCG/ACTUATION * 1-2 sprays each side qd BUDESONIDE 0.5 MG/2 ML SUSPEN* Use 1 Ampule via nebulizer tw* AZELASTINE 0.15 % (205.5 MCG)* Use 1 Wilberforce in each nostril t* FLUTICASONE 200 MCG-VILANTERO* Inhale 1 Inhalation as instru* OSELTAMIVIR 75 MG CAPSULE Take 1 capsule by mouth twice* ACETAMINOPHEN 500 MG TABLET Take 500 mg by mouth every 8 * NITROGLYCERIN 0.4 MG SUBLINGU* DISSOLVE 1 TABLET UNDER THE T* TRIAMCINOLONE ACETONIDE 0.1 %* Apply 1 application to affect* DOXAZOSIN 4 MG TABLET Take 1 tablet by mouth once d* AMLODIPINE 10 MG TABLET Take 1 tablet by mouth once d* EPINEPHRINE 0.3 MG/0.3 ML INJ* Inject 0.3 mL intramuscularly* DIPHENHYDRAMINE 25 MG TABLET Take 1 tablet by mouth every * PREGABALIN 150 MG CAPSULE Take 1 capsule by mouth twice* PREGABALIN 150 MG CAPSULE Take 1 capsule by mouth twice* ATORVASTATIN 20 MG TABLET One tab on MWF only SPIRONOLACTONE 50 MG TABLET Take 1 tablet by mouth twice * LANSOPRAZOLE 30 MG CAPSULE,DE* TAKE 1 CAPSULE TWICE A DAY BUMETANIDE 0.5 MG TABLET Take 1 tablet by mouth once d* ALBUTEROL SULFATE HFA 90 MCG/* Inhale 2 Puffs as instructed * CHOLESTYRAMINE (WITH SUGAR) 4* Take 1 scoop by mouth once da* CYANOCOBALAMIN (VIT B-12) 1,0* Take 1 tablet by mouth once d* ERGOCALCIFEROL (VITAMIN D2) 5* Take 1 capsule by mouth once * Patient taking differently: Take 50,000 Units by mouth on* TURMERIC ROOT EXTRACT ORAL Take 1 tablet by mouth twice * CRISABOROLE 2 % TOPICAL OINTM* Apply to the hands twice daily COMPOUNDED PRESCRIPTION Please provide patient with n* CETIRIZINE 10 MG TABLET Take 10 mg by mouth once mary ellen* PIMECROLIMUS 1 % TOPICAL CREAM Apply twice daily to the hands ONDANSETRON HCL 4 MG TABLET Take 1 tablet by mouth every * BENZONATATE 200 MG CAPSULE Take 200 mg by mouth three ti* LACTOBACILLUS RHAMNOSUS GG 10* Take 1 capsule by mouth twice* ZAFIRLUKAST 20 MG TABLET Take 1 tablet by mouth twice * CYCLOSPORINE MODIFIED 50 MG C* Take 50 mg by mouth twice liam* ASCORBIC ACID (VITAMIN C) 500* Take 1 tablet by mouth once d* Problem List As Of Date 02/09/2018 Noted Resolved JOINT PAIN-ANKLE [M25.579] INVALID FOR*03/20/2014 Edema [R60.9] INVALID FOR*03/28/2016 Priority: I Adrenal nodule (HCC) [E27.9] INVALID FOR* More... Diarrhea [R19.7] INVALID FOR*10/15/2013 Excessive or frequent menstruation [N92.0] INVALID FOR*07/14/2011 Shortness of breath [R06.02] INVALID FOR*10/15/2013 Palpitations [R00.2] INVALID FOR*03/20/2014 Tachycardia, unspecified [R00.0] INVALID FOR*10/15/2013 More... Open wound site NOS [T14.8XXA] INVALID FOR*07/16/2011 Abdominal pain, right upper quadrant [R10.11] INVALID FOR*07/14/2011 More... Acute gastritis without mention of hemorrhage [*INVALID FOR*10/15/2013 Hematuria [599.7] INVALID FOR*07/14/2011 URGE INCONTINENCE [N39.41] INVALID FOR* FEMALE STRESS INCONTINENCE [N39.3] INVALID FOR* Scar, hypertrophic [L91.0] INVALID FOR*10/15/2013 Ovarian cyst [N83.209] INVALID FOR*07/06/2010 Cyst INVALID FOR*10/15/2013 Other specified pre-operative examination [Z01.*INVALID FOR*07/16/2011 Hirsutism [L68.0] INVALID FOR* Dysphagia [R13.10] INVALID FOR*03/20/2014 GERD (gastroesophageal reflux disease) [K21.9] INVALID FOR* Priority: D More... 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 Obesity (BMI 30.0-34.9) [E66.9] INVALID FOR* More... More... More... More... Idiopathic anaphylaxis [T78.2XXA] INVALID FOR* Priority: A More... Urticaria, idiopathic [L50.1] INVALID FOR*03/28/2016 More... Hyperlipidemia LDL goal <100 [E78.5] INVALID FOR* Impaired fasting glucose [R73.01] INVALID FOR* Recurrent chest pain [R07.9, G89.29] INVALID FOR*12/09/2014 Multinodular goiter [E04.2] INVALID FOR* More... CKD (chronic kidney disease) stage 3, GFR 30-59*INVALID FOR* Pain in joint, ankle and foot [M25.579] INVALID FOR*12/09/2014 More... More... Steroid-induced hyperglycemia [R73.9, T38.0X5A] INVALID FOR*03/28/2016 Priority: C Moderate persistent asthma without complication*INVALID FOR* Ulcerative colitis without complications (HCC) *INVALID FOR* Anaphylaxis [T78.2XXA] INVALID FOR*03/26/2015 More... Neck pain, bilateral [M54.2] INVALID FOR*03/28/2016 Essential hypertension with goal blood pressure*INVALID FOR*03/28/2016 Chronic nausea [R11.0] INVALID FOR* Lumbar radiculitis [M54.16] INVALID FOR*03/28/2016 Lumbar stenosis [M48.061] INVALID FOR*03/28/2016 Acquired spondylolisthesis [M43.10] INVALID FOR*03/28/2016 Cervical radiculitis [M54.12] INVALID FOR*03/28/2016 Cervical spondylosis with radiculopathy [M47.22]INVALID FOR*03/29/2017 Shoulder impingement [M75.40] INVALID FOR*03/28/2016 Anaphylaxis [T78.2XXA] INVALID FOR*03/28/2016 Tendonitis, tibialis [M76.829] INVALID FOR*05/09/2016 Lumbar stenosis [M48.061] INVALID FOR* Cervical radiculitis [M54.12] INVALID FOR*03/29/2017 Cervical herniated disc [M50.20] INVALID FOR*03/29/2017 Cervical stenosis of spine [M48.02] INVALID FOR* Cervical spondylosis with myelopathy [M47.12] INVALID FOR*03/29/2017 Cervical myelopathy (HCC) [G95.9] INVALID FOR*03/29/2017 Claustrophobia [F40.240] INVALID FOR* Ptosis of eyelid, bilateral [H02.403] INVALID FOR*03/29/2017 More... Lumbar spondylosis [M47.816] INVALID FOR* More... Preop testing [Z01.818] INVALID FOR* More... Anaphylaxis [T78.2XXA] INVALID FOR* Essential hypertension [I10] INVALID FOR* Peroneal tendinitis, left [M76.72] INVALID FOR* Retained orthopedic hardware [Z96.9] INVALID FOR* More... Peroneal tendonitis of left lower extremity [M7*INVALID FOR* More... Visit Notes: >> Hermelinda (Jonathan) JONATHAN Galo MonFeb 09, 2018 12:27 PM Status: Signed Under the direction of Dr. Murphy and supervision of Rosemary Stanley PA-C, Ralph Joshi is seen today 2 weeks post operative from Her: 1. ?Left foot removal of hardware 2. ?Left foot calcaneus osteotomy. 3. Left achilles tendon lengthening. 4. Left peroneal tenosynovectomy. 5. Left peroneus brevis tendon repair done on . cast removed and incision(s) examined. CDI. Sutures retained, and DSD re-applied. Into cast in neutral. Ralph Joshi will continue to take ASA 325 mg daily and elevate above heart level. Return to clinic in 2 weeks to see me for suture removal and placement into a NWB boot for ROM . No x-ray needed. ORTH CARE COORDINATION POST OPERATIVE NURSE VISIT Patient has been identified by name and date of : Yes Patient is accompanied by: Surgery: 1. ?Left foot removal of hardware 2. ?Left foot calcaneus osteotomy. 3. Left achilles tendon lengthening. 4. Left peroneal tenosynovectomy. 5. Left peroneus brevis tendon repair. Date of Surgery: February 01, 2018 Activity? NWB in cast Incision? Healing with sutures intact Follow up Appointment? 2 weeks Patient aware of goals, to return to ADL's, Yes. Any barriers to achieving goal? No PAIN EVALUATION No data found. Medication Update: Yes: Date: February 09, 2018 Hermelinda Galo RN Encounter Status:Closed by HERMELINDA GALO on 02/09/18 PROGRESS Observed: 02/09/2018 Status: COMPLETED Source: [place] 12:31 PM [facility] [place] REPOSITORY HNO ID: [id number] Author: Hermelinda MinorRnTiarra Galo RN Service: (none) Author Type: Registered Nurse Type: Progress Notes Filed: 02/09/2018 12:32 PM Note Text: See nursing note. Hermelinda Galo RN PROGRESS Observed: 02/02/2018 Status: COMPLETED Source: [place] 4:01 PM [facility] [place] REPOSITORY HNO ID: [id number] Author: Ivette Murphy Service: (none) Author Type: Physician Type: Progress Notes Filed: 02/02/2018 4:01 PM Note Text: VIRTUAL VISIT: Patient participated in Virtual Visit with me today. Pain is adequately controlled. Operative findings were discussed. Postoperative instructions reviewed. All of the patient's questions were answered. Will follow up in clinic per plan. Ivette Murphy MD PROGRESS Observed: 02/02/2018 Status: COMPLETED Source: [place] 2:10 PM [facility] REPOSITORY HNO ID: [id number] Author: Hermelinda MinorRn) JONATHAN Galo Service: (none) Author Type: Registered Nurse Type: Progress Notes Filed: 02/02/2018 2:11 PM Note Text: See nursing note. Hermelinda Galo RN PROCEDURE Observed: 02/02/2018 Status: COMPLETED Source: [place] 1:47 PM [facility] REPOSITORY HNO ID: [id number] Author: Analilia Fermin Service: (none) Author Type: (none) Type: Procedures Filed: 02/02/2018 1:49 PM Note Text: SPLINT APPLICATION Date/Time: 02/02/2018 1:48 PM Performed by: ANALILIA FERMIN (RAVINDER) Authorized by: IVETTE MURPHY Procedure details: Location: Left leg Splint Type: Short leg Cast/Brace type: Short leg cast non wt bearing Post-procedure: The splinted body part was neurovascularly unchanged following the procedure Tolerance: Patient tolerated the procedure well with no immediate complications Analilia Fermin CNNURSE Observed: 02/02/2018 Status: COMPLETED Source: [place] 1:15 PM [facility] REPOSITORY Nurse Visit (ORFTMN) RALPH JOSHI ([id number]) 1955 F Date Time Provider Department 02/02/18 1:15 PM HERMELINDA GALO) ORFTMN During your visit today, we recorded the following information about you: Hermelinda Galo RN, RN 02/02/2018 2:11 PM Signed Under the direction of Dr. Murphy and supervision of Anna Fang PA-C, Ralph Joshi is seen today 1 weeks post operative from Her: 1. ?Left foot removal of hardware 2. ?Left foot calcaneus osteotomy. 3. Left achilles tendon lengthening. 4. Left peroneal tenosynovectomy. 5. Left peroneus brevis tendon repair done on . splint removed and incision(s) examined. CDI. Sutures retained, and DSD re-applied. Into cast in Neutral. Ralph Joshi will continue to elevate above heart level. Return to clinic in 1 weeks to see me for cast change and skin check. No x-ray needed. ORTH CARE COORDINATION POST OPERATIVE NURSE VISIT Patient has been identified by name and date of : Yes Patient is accompanied by: Surgery: 1. ?Left foot removal of hardware 2. ?Left foot calcaneus osteotomy. 3. Left achilles tendon lengthening. 4. Left peroneal tenosynovectomy. 5. Left peroneus brevis tendon repair. Date of Surgery: January 25, 2018 Activity? NWB in cast Incision? Healing with sutures intact Follow up Appointment? 1 week Patient aware of goals, to return to ADL's, Yes. Any barriers to achieving goal? No PAIN EVALUATION No data found. Medication Update: Yes: Date: February 02, 2018 Hermelinda Galo, JONATHAN Galo, RN, RN 02/02/2018 2:11 PM Signed See nursing note. Hermelinda Galo RN Referring Provider: IVETTE MURPHY [[id number]] Allergies As of Date: 02/02/2018 Noted Allergy Reaction AVOCADO 09/10/2014 10 - Anaphylaxis BANANA 09/10/2014 10 - Anaphylaxis CARBINOXAMINE 09/17/2012 10 - Anaphylaxis YOSELIN SEED 08/28/2013 10 - Anaphylaxis CIPROFLOXACIN 04/11/2014 10 - Anaphylaxis CODEINE 01/12/2012 10 - Anaphylaxis CONTRAST DYE 05/17/2013 10 - Anaphylaxis Comments: To MRI and CT FISH 09/07/2014 10 - Anaphylaxis HYCODAN (HYDROCODONE-HOMATROPINE) 09/08/2011 10 - Anaphylaxis Comments: Face and throat swelling LATEX 01/21/2014 10 - Anaphylaxis IMTIAZ-SYNEPHRINE (PHENYLEPHRINE HCL)09/04/2014 10 - Anaphylaxis Comments: 10% eye drop NICKEL 01/07/2014 2 - Rash 4 - Hives 10 - Anaphylaxis NSAIDS (NON-STEROIDAL ANTI-INFLAM*08/16/2010 14 - Other: See Comments Comments: Kidney function drops; reversible kidney damage. OXYCODONE 08/28/2013 10 - Anaphylaxis PERIACTIN (CYPROHEPTADINE) 09/17/2012 10 - Anaphylaxis PNEUMOCOCCAL VACCINE 10/31/2014 10 - Anaphylaxis SHELLFISH 09/07/2014 10 - Anaphylaxis ZANTAC (RANITIDINE) 09/17/2012 10 - Anaphylaxis ATIVAN (LORAZEPAM) 08/28/2013 14 - Other: See Comments Comments: hallucination BEE STING 10/31/2017 10 - Anaphylaxis BEEF CONTAINING PRODUCTS 09/10/2014 2 - Rash CORN 05/03/2011 14 - Other: See Comments Comments: Feels like an asthma attack. EGGS (EGG) 03/08/2011 2 - Rash 11 - Vomiting EKG LEADS (ADHESIVE) 10/22/2012 2 - Rash Comments: Localized,only under the leads environmental [Other] 06/26/2007 14 - Other: See Comments Comments: Nasal congestion, brings on an asthma attack. INFLUENZA VIRUS VACCINES 10/22/2012 12 - Shortness of Breath LISINOPRIL 04/20/2004 3 - Cough MILK 03/08/2011 2 - Rash 11 - Vomiting MOMETASONE 04/05/2017 10 - Anaphylaxis Comments: Per Dr. Salas she tolerates formoterol (on Breo at home) but is allergic to mometasone. Okayed by him to update. surgical tape [Other] 11/10/2009 2 - Rash 7 - Swelling Comments: Oral rash, swelling of eyes, asthma attacks; per pateint report. XOLAIR (OMALIZUMAB) 04/19/2012 12 - Shortness of Breath Date Reviewed: 02/02/2018 Reviewed by: Hermelinda Storey) JONATHAN Galo - Fully Assessed Reason for Visit: Post Op [174] Cmt: 1. ?Left foot removal of hardware Primary Visit Diagnosis:Peroneal tendonitis of left lower extremity [M76.72] Prescriptions as of 02/02/2018 Sig: DOCUSATE SODIUM 100 MG CAPSULE Take 1 capsule by mouth twice* TRAMADOL 50 MG TABLET Take 1 tablet by mouth every * ASPIRIN 325 MG TABLET,DELAYED* Take 1 tablet by mouth once d* CROMOLYN 20 MG/2 ML SOLUTION * Use 2 mL via nebulizer four t* LEVALBUTEROL 1.25 MG/3 ML BRENDA* Use 1 Ampule via nebulizer ev* FLUTICASONE 50 MCG/ACTUATION * 1-2 sprays each side qd BUDESONIDE 0.5 MG/2 ML SUSPEN* Use 1 Ampule via nebulizer tw* AZELASTINE 0.15 % (205.5 MCG)* Use 1 Wilberforce in each nostril t* FLUTICASONE 200 MCG-VILANTERO* Inhale 1 Inhalation as instru* OSELTAMIVIR 75 MG CAPSULE Take 1 capsule by mouth twice* ACETAMINOPHEN 500 MG TABLET Take 500 mg by mouth every 8 * NITROGLYCERIN 0.4 MG SUBLINGU* DISSOLVE 1 TABLET UNDER THE T* TRIAMCINOLONE ACETONIDE 0.1 %* Apply 1 application to affect* DOXAZOSIN 4 MG TABLET Take 1 tablet by mouth once d* AMLODIPINE 10 MG TABLET Take 1 tablet by mouth once d* EPINEPHRINE 0.3 MG/0.3 ML INJ* Inject 0.3 mL intramuscularly* DIPHENHYDRAMINE 25 MG TABLET Take 1 tablet by mouth every * PREGABALIN 150 MG CAPSULE Take 1 capsule by mouth twice* PREGABALIN 150 MG CAPSULE Take 1 capsule by mouth twice* ATORVASTATIN 20 MG TABLET One tab on MWF only SPIRONOLACTONE 50 MG TABLET Take 1 tablet by mouth twice * LANSOPRAZOLE 30 MG CAPSULE,DE* TAKE 1 CAPSULE TWICE A DAY BUMETANIDE 0.5 MG TABLET Take 1 tablet by mouth once d* ALBUTEROL SULFATE HFA 90 MCG/* Inhale 2 Puffs as instructed * CHOLESTYRAMINE (WITH SUGAR) 4* Take 1 scoop by mouth once da* CYANOCOBALAMIN (VIT B-12) 1,0* Take 1 tablet by mouth once d* ERGOCALCIFEROL (VITAMIN D2) 5* Take 1 capsule by mouth once * Patient taking differently: Take 50,000 Units by mouth on* TURMERIC ROOT EXTRACT ORAL Take 1 tablet by mouth twice * CRISABOROLE 2 % TOPICAL OINTM* Apply to the hands twice daily COMPOUNDED PRESCRIPTION Please provide patient with n* CETIRIZINE 10 MG TABLET Take 10 mg by mouth once mary ellen* PIMECROLIMUS 1 % TOPICAL CREAM Apply twice daily to the hands ONDANSETRON HCL 4 MG TABLET Take 1 tablet by mouth every * BENZONATATE 200 MG CAPSULE Take 200 mg by mouth three ti* LACTOBACILLUS RHAMNOSUS GG 10* Take 1 capsule by mouth twice* ZAFIRLUKAST 20 MG TABLET Take 1 tablet by mouth twice * CYCLOSPORINE MODIFIED 50 MG C* Take 50 mg by mouth twice liam* ASCORBIC ACID (VITAMIN C) 500* Take 1 tablet by mouth once d* Problem List As Of Date 02/02/2018 Noted Resolved JOINT PAIN-ANKLE [M25.579] INVALID FOR*03/20/2014 Edema [R60.9] INVALID FOR*03/28/2016 Priority: I Adrenal nodule (HCC) [E27.9] INVALID FOR* More... Diarrhea [R19.7] INVALID FOR*10/15/2013 Excessive or frequent menstruation [N92.0] INVALID FOR*07/14/2011 Shortness of breath [R06.02] INVALID FOR*10/15/2013 Palpitations [R00.2] INVALID FOR*03/20/2014 Tachycardia, unspecified [R00.0] INVALID FOR*10/15/2013 More... Open wound site NOS [T14.8XXA] INVALID FOR*07/16/2011 Abdominal pain, right upper quadrant [R10.11] INVALID FOR*07/14/2011 More... Acute gastritis without mention of hemorrhage [*INVALID FOR*10/15/2013 Hematuria [599.7] INVALID FOR*07/14/2011 URGE INCONTINENCE [N39.41] INVALID FOR* FEMALE STRESS INCONTINENCE [N39.3] INVALID FOR* Scar, hypertrophic [L91.0] INVALID FOR*10/15/2013 Ovarian cyst [N83.209] INVALID FOR*07/06/2010 Cyst INVALID FOR*10/15/2013 Other specified pre-operative examination [Z01.*INVALID FOR*07/16/2011 Hirsutism [L68.0] INVALID FOR* Dysphagia [R13.10] INVALID FOR*03/20/2014 GERD (gastroesophageal reflux disease) [K21.9] INVALID FOR* Priority: D More... 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 Obesity (BMI 30.0-34.9) [E66.9] INVALID FOR* More... More... More... More... Idiopathic anaphylaxis [T78.2XXA] INVALID FOR* Priority: A More... Urticaria, idiopathic [L50.1] INVALID FOR*03/28/2016 More... Hyperlipidemia LDL goal <100 [E78.5] INVALID FOR* Impaired fasting glucose [R73.01] INVALID FOR* Recurrent chest pain [R07.9, G89.29] INVALID FOR*12/09/2014 Multinodular goiter [E04.2] INVALID FOR* More... CKD (chronic kidney disease) stage 3, GFR 30-59*INVALID FOR* Pain in joint, ankle and foot [M25.579] INVALID FOR*12/09/2014 More... More... Steroid-induced hyperglycemia [R73.9, T38.0X5A] INVALID FOR*03/28/2016 Priority: C Moderate persistent asthma without complication*INVALID FOR* Ulcerative colitis without complications (HCC) *INVALID FOR* Anaphylaxis [T78.2XXA] INVALID FOR*03/26/2015 More... Neck pain, bilateral [M54.2] INVALID FOR*03/28/2016 Essential hypertension with goal blood pressure*INVALID FOR*03/28/2016 Chronic nausea [R11.0] INVALID FOR* Lumbar radiculitis [M54.16] INVALID FOR*03/28/2016 Lumbar stenosis [M48.061] INVALID FOR*03/28/2016 Acquired spondylolisthesis [M43.10] INVALID FOR*03/28/2016 Cervical radiculitis [M54.12] INVALID FOR*03/28/2016 Cervical spondylosis with radiculopathy [M47.22]INVALID FOR*03/29/2017 Shoulder impingement [M75.40] INVALID FOR*03/28/2016 Anaphylaxis [T78.2XXA] INVALID FOR*03/28/2016 Tendonitis, tibialis [M76.829] INVALID FOR*05/09/2016 Lumbar stenosis [M48.061] INVALID FOR* Cervical radiculitis [M54.12] INVALID FOR*03/29/2017 Cervical herniated disc [M50.20] INVALID FOR*03/29/2017 Cervical stenosis of spine [M48.02] INVALID FOR* Cervical spondylosis with myelopathy [M47.12] INVALID FOR*03/29/2017 Cervical myelopathy (HCC) [G95.9] INVALID FOR*03/29/2017 Claustrophobia [F40.240] INVALID FOR* Ptosis of eyelid, bilateral [H02.403] INVALID FOR*03/29/2017 More... Lumbar spondylosis [M47.816] INVALID FOR* More... Preop testing [Z01.818] INVALID FOR* More... Anaphylaxis [T78.2XXA] INVALID FOR* Essential hypertension [I10] INVALID FOR* Peroneal tendinitis, left [M76.72] INVALID FOR* Retained orthopedic hardware [Z96.9] INVALID FOR* More... Peroneal tendonitis of left lower extremity [M7*INVALID FOR* More... Visit Notes: >> Hermelinda (Jonathan) JONATHAN Galo MonFeb 02, 2018 12:38 PM Status: Signed Under the direction of Dr. Murphy and supervision of Anna Fang PA-C, Ralph Joshi is seen today 1 weeks post operative from Her: 1. ?Left foot removal of hardware 2. ?Left foot calcaneus osteotomy. 3. Left achilles tendon lengthening. 4. Left peroneal tenosynovectomy. 5. Left peroneus brevis tendon repair done on . splint removed and incision(s) examined. CDI. Sutures retained, and DSD re-applied. Into cast in Neutral. Ralph Joshi will continue to elevate above heart level. Return to clinic in 1 weeks to see me for cast change and skin check. No x-ray needed. ORTH CARE COORDINATION POST OPERATIVE NURSE VISIT Patient has been identified by name and date of : Yes Patient is accompanied by: Surgery: 1. ?Left foot removal of hardware 2. ?Left foot calcaneus osteotomy. 3. Left achilles tendon lengthening. 4. Left peroneal tenosynovectomy. 5. Left peroneus brevis tendon repair. Date of Surgery: January 25, 2018 Activity? NWB in cast Incision? Healing with sutures intact Follow up Appointment? 1 week Patient aware of goals, to return to ADL's, Yes. Any barriers to achieving goal? No PAIN EVALUATION No data found. Medication Update: Yes: Date: February 02, 2018 Hermelinda Galo RN Encounter Status:Closed by HERMELINDA GALO on 02/02/18 CNOV Observed: 01/29/2018 Status: COMPLETED Source: [place] 10:00 AM [facility] REPOSITORY Office Visit (INTMIN) RALPH JOSHI ([id number]) 1955 F Date Time Provider Department 01/29/18 10:00 AM ANISA CALDWELL During your visit today, we recorded the following information about you: Temperature Pulse Blood pressure Weight 98.5 degrees 84/minute 132/80 92.1 kg Anisa Caldwell MD 01/30/2018 4:53 PM Signed CC: Ralph Joshi is a 62 year old female who presents for complaint of F/U 6 Month HPI: Pt presents for follow-up today. Doing well. No new major health concerns. Underwent left sided ankle/foot hardware removal recently on 01/25. REVIEW OF SYSTEMS GENERAL: see hpi RESPIRATORY: Negative for cough, hemoptysis, wheezing or shortness of breath CARDIOVASCULAR: Negative for chest pain, leg swelling or palpitations. BP 132/80 Pulse 84 Temp 36.9 ?C (98.5 ?F) (Left Tympanic) Wt 92.1 kg (203 lb) LMP 08/07/2013 BMI 34.84 kg/m? PHYSICAL EXAM: General Appearance: Well appearing, alert, in no acute distress, well-hydrated, well nourished.. Skin: Skin color, texture, turgor normal, no suspicious rashes or lesions. HEENT: Normocephalic, PERRL, TM's normal, normal oropharynx. Lungs: Lungs clear to auscultation. No wheezing, rhonchi, rales. Heart: RRR without murmur, gallop, or rubs. No ectopy. Component Latest Ref Rng AND Units 10/24/2017 01/19/2018 WBC 3.70 - 11.00 k/uL 9.08 RBC 3.90 - 5.20 m/uL 5.34 (H) Hemoglobin 11.5 - 15.5 g/dL 15.4 Hematocrit 36.0 - 46.0 % 47.4 (H) MCV 80.0 - 100.0 fL 88.8 MCH 26.0 - 34.0 pG 28.8 MCHC 30.5 - 36.0 g/dL 32.5 RDW-CV 11.5 - 15.0 % 13.5 Platelet Count 150 - 400 k/uL 251 MPV 9.0 - 12.7 fL 10.6 Neut% % 81.5 Abs Neut (ANC) 1.45 - 7.50 k/uL 7.40 Lymph% % 9.7 Abs Lymph 1.00 - 4.00 k/uL 0.88 (L) Potter% % 6.8 Abs Potter <0.87 k/uL 0.62 Eosin% % 1.1 Abs Eosin <0.46 k/uL 0.10 Baso% % 0.9 Abs Baso <0.11 k/uL 0.08 Nucleated Reds 0 /100 WBC 0.0 Absolute nRBC <0.01 k/uL <0.01 Diff Type Auto Diff Albumin 3.9 - 4.9 g/dL 4.3 Calcium 8.5 - 10.2 mg/dL 9.7 10.0 Phosphorus 2.7 - 4.8 mg/dL 3.1 Glucose 74 - 99 mg/dL 108 (H) 105 (H) BUN 7 - 21 mg/dL 16 21 Creatinine 0.58 - 0.96 mg/dL 1.07 (H) 1.46 (H) Sodium 136 - 144 mmol/L 142 140 Potassium 3.7 - 5.1 mmol/L 4.5 4.4 Chloride 97 - 105 mmol/L 107 (H) 103 CO2 22 - 30 mmol/L 24 23 Anion Gap 9 - 18 mmol/L 11 14 eGFR- >60 44 eGFR-All Other Races . 52 36 PT Sec 9.7 - 13.0 sec 10.6 PT INR 0.9 - 1.3 1.0 Lab Results Component Value Date HBA1C 5.9 04/19/2017 HBA1C 5.9 04/12/2017 HBA1C 6.4 05/09/2016 ASSESSMENT/PLAN: 1. Essential hypertension - ICD9: 401.9, ICD10: I10 (primary diagnosis) - good control - Continue current medication(s) - Recommended regular aerobic exercise. - Recommend home blood pressure monitoring, to bring results in on next visit - Goal of BP <130/80 2. Moderate persistent asthma without complication - ICD9: 493.90, ICD10: J45.40 - Managed by Pulmonary. - Needs Rx for a new Nebulizer - NEBULIZER ADMINISTRATION SET 3. CKD (chronic kidney disease) stage 3, GFR 30-59 ml/min ([facility]) - ICD9: 585.3, ICD10: N18.3 - Stable 4. Impaired fasting glucose - ICD9: 790.21, ICD10: R73.01 - Stable 5. Hyperlipidemia LDL goal <100 - ICD9: 272.4, ICD10: E78.5 - Well controlled per lab testing done in July 2017 Annual Exam in 6 months. Anisa Caldwell MD January 29, 2018 9:47 AM Anisa Caldwell MD 01/29/2018 10:03 AM Signed [facility] FACTS LAB HOURS: Lab is open 7:30am to 6pm , and open 8am -12pm on Saturdays. Lab Orders 365 days after they are entered. If your lab orders , you may be required to wait in the lab while they are reinstated STANDING ORDERS are recurring orders with an expiration date. The interval will indicate how often the test should be completed. FASTING LAB means nothing to eat or drink (except water) 10- 12 hours before your blood is drawn. CT/MRI/IVP If you have one of these radiology exams ordered along with blood work, please complete the blood work at least one day prior to the scheduled exam. [facility] [place] [facility]: Monday through Monday 6:00am to 9:00pm. Monday and Monday 8:00am to 4:00pm. [place] [facility]: Monday through Monday 6:00am to 9:00pm. Monday and Monday 8:00am to 4:00pm. [facility] IN [facility] HOURS Monday-Monday 3:00pm- 8:00 pm Monday 8:00 am- 12:00 pm Referring Provider: ANISA CALDWELL [[id number]] Allergies As of Date: 01/29/2018 Noted Allergy Reaction AVOCADO 09/10/2014 10 - Anaphylaxis BANANA 09/10/2014 10 - Anaphylaxis CARBINOXAMINE 09/17/2012 10 - Anaphylaxis YOSELIN SEED 08/28/2013 10 - Anaphylaxis CIPROFLOXACIN 04/11/2014 10 - Anaphylaxis CODEINE 01/12/2012 10 - Anaphylaxis CONTRAST DYE 05/17/2013 10 - Anaphylaxis Comments: To MRI and CT FISH 09/07/2014 10 - Anaphylaxis HYCODAN (HYDROCODONE-HOMATROPINE) 09/08/2011 10 - Anaphylaxis Comments: Face and throat swelling LATEX 01/21/2014 10 - Anaphylaxis IMTIAZ-SYNEPHRINE (PHENYLEPHRINE HCL)09/04/2014 10 - Anaphylaxis Comments: 10% eye drop NICKEL 01/07/2014 2 - Rash 4 - Hives 10 - Anaphylaxis NSAIDS (NON-STEROIDAL ANTI-INFLAM*08/16/2010 14 - Other: See Comments Comments: Kidney function drops; reversible kidney damage. OXYCODONE 08/28/2013 10 - Anaphylaxis PERIACTIN (CYPROHEPTADINE) 09/17/2012 10 - Anaphylaxis PNEUMOCOCCAL VACCINE 10/31/2014 10 - Anaphylaxis SHELLFISH 09/07/2014 10 - Anaphylaxis ZANTAC (RANITIDINE) 09/17/2012 10 - Anaphylaxis ATIVAN (LORAZEPAM) 08/28/2013 14 - Other: See Comments Comments: hallucination BEE STING 10/31/2017 10 - Anaphylaxis BEEF CONTAINING PRODUCTS 09/10/2014 2 - Rash CORN 05/03/2011 14 - Other: See Comments Comments: Feels like an asthma attack. EGGS (EGG) 03/08/2011 2 - Rash 11 - Vomiting EKG LEADS (ADHESIVE) 10/22/2012 2 - Rash Comments: Localized,only under the leads environmental [Other] 06/26/2007 14 - Other: See Comments Comments: Nasal congestion, brings on an asthma attack. INFLUENZA VIRUS VACCINES 10/22/2012 12 - Shortness of Breath LISINOPRIL 04/20/2004 3 - Cough MILK 03/08/2011 2 - Rash 11 - Vomiting MOMETASONE 04/05/2017 10 - Anaphylaxis Comments: Per Dr. Salas she tolerates formoterol (on Breo at home) but is allergic to mometasone. Okayed by him to update. surgical tape [Other] 11/10/2009 2 - Rash 7 - Swelling Comments: Oral rash, swelling of eyes, asthma attacks; per pateint report. XOLAIR (OMALIZUMAB) 04/19/2012 12 - Shortness of Breath Date Reviewed: 01/25/2018 Reviewed by: Claudio Storey) [place], RN - Fully Assessed Reason for Visit: F/U 6 Month [444] Primary Visit Diagnosis:Essential hypertension [I10] Other Visit Diagnoses:Moderate persistent asthma without complication [J45.40] CKD (chronic kidney disease) stage 3, GFR 30-59 ml/min (HCC) [N18.3] Impaired fasting glucose [R73.01] Hyperlipidemia LDL goal <100 [E78.5] Order(s):NEBULIZER ADMINISTRATION SET [[id number]] Order #: [id number] Prescriptions as of 01/29/2018 Sig: DOCUSATE SODIUM 100 MG CAPSULE Take 1 capsule by mouth twice* TRAMADOL 50 MG TABLET Take 1 tablet by mouth every * ASPIRIN 325 MG TABLET,DELAYED* Take 1 tablet by mouth once d* TAPENTADOL 50 MG TABLET Take 1 tablet by mouth every * CROMOLYN 20 MG/2 ML SOLUTION * Use 2 mL via nebulizer four t* LEVALBUTEROL 1.25 MG/3 ML BRENDA* Use 1 Ampule via nebulizer ev* FLUTICASONE 50 MCG/ACTUATION * 1-2 sprays each side qd BUDESONIDE 0.5 MG/2 ML SUSPEN* Use 1 Ampule via nebulizer tw* AZELASTINE 0.15 % (205.5 MCG)* Use 1 Wilberforce in each nostril t* FLUTICASONE 200 MCG-VILANTERO* Inhale 1 Inhalation as instru* OSELTAMIVIR 75 MG CAPSULE Take 1 capsule by mouth twice* ACETAMINOPHEN 500 MG TABLET Take 500 mg by mouth every 8 * NITROGLYCERIN 0.4 MG SUBLINGU* DISSOLVE 1 TABLET UNDER THE T* TRIAMCINOLONE ACETONIDE 0.1 %* Apply 1 application to affect* DOXAZOSIN 4 MG TABLET Take 1 tablet by mouth once d* AMLODIPINE 10 MG TABLET Take 1 tablet by mouth once d* EPINEPHRINE 0.3 MG/0.3 ML INJ* Inject 0.3 mL intramuscularly* DIPHENHYDRAMINE 25 MG TABLET Take 1 tablet by mouth every * PREGABALIN 150 MG CAPSULE Take 1 capsule by mouth twice* ATORVASTATIN 20 MG TABLET One tab on MWF only SPIRONOLACTONE 50 MG TABLET Take 1 tablet by mouth twice * LANSOPRAZOLE 30 MG CAPSULE,DE* TAKE 1 CAPSULE TWICE A DAY BUMETANIDE 0.5 MG TABLET Take 1 tablet by mouth once d* ALBUTEROL SULFATE HFA 90 MCG/* Inhale 2 Puffs as instructed * CHOLESTYRAMINE (WITH SUGAR) 4* Take 1 scoop by mouth once da* CYANOCOBALAMIN (VIT B-12) 1,0* Take 1 tablet by mouth once d* ERGOCALCIFEROL (VITAMIN D2) 5* Take 1 capsule by mouth once * Patient taking differently: Take 50,000 Units by mouth on* TURMERIC ROOT EXTRACT ORAL Take 1 tablet by mouth twice * CRISABOROLE 2 % TOPICAL OINTM* Apply to the hands twice daily COMPOUNDED PRESCRIPTION Please provide patient with n* CETIRIZINE 10 MG TABLET Take 10 mg by mouth once mary ellen* PIMECROLIMUS 1 % TOPICAL CREAM Apply twice daily to the hands ONDANSETRON HCL 4 MG TABLET Take 1 tablet by mouth every * BENZONATATE 200 MG CAPSULE Take 200 mg by mouth three ti* LACTOBACILLUS RHAMNOSUS GG 10* Take 1 capsule by mouth twice* ZAFIRLUKAST 20 MG TABLET Take 1 tablet by mouth twice * CYCLOSPORINE MODIFIED 50 MG C* Take 50 mg by mouth twice liam* ASCORBIC ACID (VITAMIN C) 500* Take 1 tablet by mouth once d* PREGABALIN 150 MG CAPSULE Take 1 capsule by mouth twice* Problem List As Of Date 01/29/2018 Noted Resolved JOINT PAIN-ANKLE [M25.579] INVALID FOR*03/20/2014 Edema [R60.9] INVALID FOR*03/28/2016 Priority: I Adrenal nodule (HCC) [E27.9] INVALID FOR* More... Diarrhea [R19.7] INVALID FOR*10/15/2013 Excessive or frequent menstruation [N92.0] INVALID FOR*07/14/2011 Shortness of breath [R06.02] INVALID FOR*10/15/2013 Palpitations [R00.2] INVALID FOR*03/20/2014 Tachycardia, unspecified [R00.0] INVALID FOR*10/15/2013 More... Open wound site NOS [T14.8XXA] INVALID FOR*07/16/2011 Abdominal pain, right upper quadrant [R10.11] INVALID FOR*07/14/2011 More... Acute gastritis without mention of hemorrhage [*INVALID FOR*10/15/2013 Hematuria [599.7] INVALID FOR*07/14/2011 URGE INCONTINENCE [N39.41] INVALID FOR* FEMALE STRESS INCONTINENCE [N39.3] INVALID FOR* Scar, hypertrophic [L91.0] INVALID FOR*10/15/2013 Ovarian cyst [N83.209] INVALID FOR*07/06/2010 Cyst INVALID FOR*10/15/2013 Other specified pre-operative examination [Z01.*INVALID FOR*07/16/2011 Hirsutism [L68.0] INVALID FOR* Dysphagia [R13.10] INVALID FOR*03/20/2014 GERD (gastroesophageal reflux disease) [K21.9] INVALID FOR* Priority: D More... 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 Obesity (BMI 30.0-34.9) [E66.9] INVALID FOR* More... More... More... More... Idiopathic anaphylaxis [T78.2XXA] INVALID FOR* Priority: A More... Urticaria, idiopathic [L50.1] INVALID FOR*03/28/2016 More... Hyperlipidemia LDL goal <100 [E78.5] INVALID FOR* Impaired fasting glucose [R73.01] INVALID FOR* Recurrent chest pain [R07.9, G89.29] INVALID FOR*12/09/2014 Multinodular goiter [E04.2] INVALID FOR* More... CKD (chronic kidney disease) stage 3, GFR 30-59*INVALID FOR* Pain in joint, ankle and foot [M25.579] INVALID FOR*12/09/2014 More... More... Steroid-induced hyperglycemia [R73.9, T38.0X5A] INVALID FOR*03/28/2016 Priority: C Moderate persistent asthma without complication*INVALID FOR* Ulcerative colitis without complications (HCC) *INVALID FOR* Anaphylaxis [T78.2XXA] INVALID FOR*03/26/2015 More... Neck pain, bilateral [M54.2] INVALID FOR*03/28/2016 Essential hypertension with goal blood pressure*INVALID FOR*03/28/2016 Chronic nausea [R11.0] INVALID FOR* Lumbar radiculitis [M54.16] INVALID FOR*03/28/2016 Lumbar stenosis [M48.061] INVALID FOR*03/28/2016 Acquired spondylolisthesis [M43.10] INVALID FOR*03/28/2016 Cervical radiculitis [M54.12] INVALID FOR*03/28/2016 Cervical spondylosis with radiculopathy [M47.22]INVALID FOR*03/29/2017 Shoulder impingement [M75.40] INVALID FOR*03/28/2016 Anaphylaxis [T78.2XXA] INVALID FOR*03/28/2016 Tendonitis, tibialis [M76.829] INVALID FOR*05/09/2016 Lumbar stenosis [M48.061] INVALID FOR* Cervical radiculitis [M54.12] INVALID FOR*03/29/2017 Cervical herniated disc [M50.20] INVALID FOR*03/29/2017 Cervical stenosis of spine [M48.02] INVALID FOR* Cervical spondylosis with myelopathy [M47.12] INVALID FOR*03/29/2017 Cervical myelopathy (HCC) [G95.9] INVALID FOR*03/29/2017 Claustrophobia [F40.240] INVALID FOR* Ptosis of eyelid, bilateral [H02.403] INVALID FOR*03/29/2017 More... Lumbar spondylosis [M47.816] INVALID FOR* More... Preop testing [Z01.818] INVALID FOR* More... Anaphylaxis [T78.2XXA] INVALID FOR* Essential hypertension [I10] INVALID FOR* Peroneal tendinitis, left [M76.72] INVALID FOR* Retained orthopedic hardware [Z96.9] INVALID FOR* More... Peroneal tendonitis of left lower extremity [M7*INVALID FOR* More... Other instructions from your clinician: [facility] FACTS LAB HOURS: Lab is open 7:30am to 6pm -, and open 8am -12pm on Saturdays. Lab Orders 365 days after they are entered. If your lab orders , you may be required to wait in the lab while they are reinstated STANDING ORDERS are recurring orders with an expiration date. The interval will indicate how often the test should be completed. FASTING LAB means nothing to eat or drink (except water) 10-12 hours before your blood is drawn. CT/MRI/IVP If you have one of these radiology exams ordered along with blood work, please complete the blood work at least one day prior to the scheduled exam. [facility] [facility]: Monday through Monday 6:00am to 9:00pm. Monday and Monday 8:00am to 4:00pm. [place] [facility]: Monday through Monday 6:00am to 9:00pm. Monday and Monday 8:00am to 4:00pm. [facility] WALK IN MAMMOGRAM HOURS Monday-Monday 3:00pm- 8:00 pm Monday 8:00 am- 12:00 pm Disposition: Return in about 6 months (around 07/30/2018) for Annual Physical. Follow-up and Disposition History Recorded Encounter Status:Closed by ANISA CALDWELL MD on 01/30/18 PROGRESS Observed: 01/29/2018 Status: COMPLETED Source: [place] 9:47 AM [facility] [place] REPOSITORY HNO ID: [id number] Author: Anisa Caldwell Service: (none) Author Type: Physician Type: Progress Notes Filed: 01/30/2018 4:53 PM Note Text: CC: Ralph Joshi is a 62 year old female who presents for complaint of F/U 6 Month HPI: Pt presents for follow-up today. Doing well. No new major health concerns. Underwent left sided ankle/foot hardware removal recently on 01/25. REVIEW OF SYSTEMS GENERAL: see hpi RESPIRATORY: Negative for cough, hemoptysis, wheezing or shortness of breath CARDIOVASCULAR: Negative for chest pain, leg swelling or palpitations. BP 132/80 Pulse 84 Temp 36.9 ?C (98.5 ?F) (Left Tympanic) Wt 92.1 kg (203 lb) LMP 08/07/2013 BMI 34.84 kg/m? PHYSICAL EXAM: General Appearance: Well appearing, alert, in no acute distress, well-hydrated, well nourished.. Skin: Skin color, texture, turgor normal, no suspicious rashes or lesions. HEENT: Normocephalic, PERRL, TM's normal, normal oropharynx. Lungs: Lungs clear to auscultation. No wheezing, rhonchi, rales. Heart: RRR without murmur, gallop, or rubs. No ectopy. Component Latest Ref Rng AND Units 10/24/2017 01/19/2018 WBC 3.70 - 11.00 k/uL 9.08 RBC 3.90 - 5.20 m/uL 5.34 (H) Hemoglobin 11.5 - 15.5 g/dL 15.4 Hematocrit 36.0 - 46.0 % 47.4 (H) MCV 80.0 - 100.0 fL 88.8 MCH 26.0 - 34.0 pG 28.8 MCHC 30.5 - 36.0 g/dL 32.5 RDW-CV 11.5 - 15.0 % 13.5 Platelet Count 150 - 400 k/uL 251 MPV 9.0 - 12.7 fL 10.6 Neut% % 81.5 Abs Neut (ANC) 1.45 - 7.50 k/uL 7.40 Lymph% % 9.7 Abs Lymph 1.00 - 4.00 k/uL 0.88 (L) Potter% % 6.8 Abs Potter <0.87 k/uL 0.62 Eosin% % 1.1 Abs Eosin <0.46 k/uL 0.10 Baso% % 0.9 Abs Baso <0.11 k/uL 0.08 Nucleated Reds 0 /100 WBC 0.0 Absolute nRBC <0.01 k/uL <0.01 Diff Type Auto Diff Albumin 3.9 - 4.9 g/dL 4.3 Calcium 8.5 - 10.2 mg/dL 9.7 10.0 Phosphorus 2.7 - 4.8 mg/dL 3.1 Glucose 74 - 99 mg/dL 108 (H) 105 (H) BUN 7 - 21 mg/dL 16 21 Creatinine 0.58 - 0.96 mg/dL 1.07 (H) 1.46 (H) Sodium 136 - 144 mmol/L 142 140 Potassium 3.7 - 5.1 mmol/L 4.5 4.4 Chloride 97 - 105 mmol/L 107 (H) 103 CO2 22 - 30 mmol/L 24 23 Anion Gap 9 - 18 mmol/L 11 14 eGFR- >60 44 eGFR-All Other Races . 52 36 PT Sec 9.7 - 13.0 sec 10.6 PT INR 0.9 - 1.3 1.0 Lab Results Component Value Date HBA1C 5.9 04/19/2017 HBA1C 5.9 04/12/2017 HBA1C 6.4 05/09/2016 ASSESSMENT/PLAN: 1. Essential hypertension - ICD9: 401.9, ICD10: I10 (primary diagnosis) - good control - Continue current medication(s) - Recommended regular aerobic exercise. - Recommend home blood pressure monitoring, to bring results in on next visit - Goal of BP <130/80 2. Moderate persistent asthma without complication - ICD9: 493.90, ICD10: J45.40 - Managed by Pulmonary. - Needs Rx for a new Nebulizer - NEBULIZER ADMINISTRATION SET 3. CKD (chronic kidney disease) stage 3, GFR 30-59 ml/min (HCC) - ICD9: 585.3, ICD10: N18.3 - Stable 4. Impaired fasting glucose - ICD9: 790.21, ICD10: R73.01 - Stable 5. Hyperlipidemia LDL goal <100 - ICD9: 272.4, ICD10: E78.5 - Well controlled per lab testing done in July 2017 Annual Exam in 6 months. Anisa Caldwell MD January 29, 2018 9:47 AM ANES POST Observed: 01/25/2018 Status: COMPLETED Source: [place] 8:22 PM [facility] REPOSITORY HNO ID: [id number] Author: Martin Velasquez Service: Anesthesiology Author Type: Anesthesiologist Type: Anesthesia PostOp Filed: 01/26/2018 6:58 AM Note Text: POST ANESTHESIA EVALUATION NOTE SERVICE DATE: 01/25/2018 SERVICE TIME: 1944 : 1956 Vitals: 01/25/18 1040 01/25/18 1746 01/25/18184401/25/181937 Temp: 37 ?C (98.6 ?F) 36 ?C (96.8 ?F) 36.3 ?C (97.3 ?F) 36.2 ?C (97.2 ?F) 01/25/18184401/25/18189901/25/18191001/25/181937 BP: 118/57 110/67 127/77 117/74 01/25/18184401/25/18189901/25/18191001/25/181937 Pulse: 80 80 78 80 01/25/18184401/25/18 19001/25/18191001/25/181937 Resp: 19 01/25/18184401/25/18189911/18 1911 01/25/18 1938 SpO2: 93% 94% 93% 93% Validated Vital Signs: Yes POST ANES STATUS: No apparent anesthetic complications. The patient is appropriately hydrated with stable respiratory and cardiovascular status. Patient has safe and adequate airway control. The patient has appropriate pain relief and no significant post operative nausea or vomiting. The patient has achieved baseline mental status. Intra-Operative Events: No Significant Anesthesia Events Further assessment by Anesthesia Service: None Other Remarks: SIGNATURE: Martin Velasquez MD PATIENT NAME: Ralph Joshi DATE: January 26, 2018 TIME: 6:57 AM PAGER/CONTACT #: [phone] NURSING PROG Observed: 01/25/2018 Status: COMPLETED Source: [place] 7:41 PM [facility] REPOSITORY HNO ID: [id number] Author: Claudio MinorRn) JONATHAN Gambino Service: (none) Author Type: Registered Nurse Type: Nursing Progress Note Filed: 01/25/2018 7:42 PM Note Text: PATIENT EDUCATION TOPIC: PROCEDURE / SURGERY: Post-op Teaching: Med Administration and Symptom Management PATIENT NAME: Ralph Joshi PATIENT LOCATION: [place] [address] READINESS TO LEARN COGNITIVE ABILITY: Alert and oriented MOTIVATION TO LEARN: Eager FAMILY SUPPORT: High - Very involved in pt care INSTRUCTION PROVIDED TO: Patient and Family member PATIENT LEARNS BEST BY: Individual Instruction Written Instruction - Hand-outs FACTORS AFFECTING LEARNING: None PHYSICAL LIMITATIONS AFFECTING LEARNING: None LEARNING RESPONSE DIAGNOSIS: ADULT: Well Adult PATIENT/FAMILY RESPONSE: Verbalizes understanding of: POST-OPERATIVE INSTRUCTIONS-Correct actions to take to reduce postoperative complications POST-PROCEDURE INSTRUCTIONS-Correct actions to take to reduce post procedure complications METHOD OF INSTRUCTION: Individual instruction FOLLOW-UP PLAN: Complete - No need for follow-up Patient instructed to call with any further issues INSTRUCTIONAL AIDS USED: NA SUPPLEMENTAL MATERIAL PROVIDED TO PATIENT: None REFERRAL (RECOMMENDATION): None Electronically Signed By: Claudio Gambino RN {Select Nursing Progre NURSING PROG Observed: 01/25/2018 Status: COMPLETED Source: [place] 7:14 PM [facility] REPOSITORY HNO ID: [id number] Author: Nicole MinorRn) JONATHAN Mejia Service: (none) Author Type: Registered Nurse Type: Nursing Progress Note Filed: 01/25/2018 7:15 PM Note Text: RA sat 90-91. Using incentive aditi every 30 mins. CTA. VSS BRIEF OP NOT Observed: 01/25/2018 Status: COMPLETED Source: [place] 5:08 PM [facility] REPOSITORY HNO ID: [id number] Author: Ivette Murphy Service: Orthopaedic Surgery Author Type: Physician Type: Brief Op Note Filed: 01/25/2018 5:10 PM Note Text: BRIEF OPERATIVE / PROCEDURE NOTE LOG ID: [id number] SURGERY/PROCEDURE DATE: 01/25/2018 INCISION/PROCEDURE START TIME: 2:49 PM INCISION CLOSE/PROCEDURE END TIME: SURGEON(S)/PROCEDURALIST(S) AND ASSEMBLER FOR PULLER OVER MACHINE(S): Surgeon(s) and Role: * Ivette Murphy - Primary * Kei Leahy - Resident - Assisting No Additional Staff SURGERY/PROCEDURE(S): Left foot HWR, calcaneus osteotomy, peroneal tendon debridement ANESTHESIA: General FINDINGS: peroneal tenosynovitis, peroneus brevis partial tear ESTIMATED BLOOD LOSS: 20 mls SPECIMENS: None COMPLICATIONS: None PRE-OP/PRE-PROCEDURE DIAGNOSIS: Left peroneal tenosynovitis POST-OP/POST-PROCEDURE DIAGNOSIS: Left peroneal tenosynovitis. SIGNATURE: Ivette Murphy MD PATIENT NAME: Ralph Joshi DATE: January 25, 2018 TIME: 5:08 PM PAGER/CONTACT #: OPERATIVE NO Observed: 01/25/2018 Status: COMPLETED Source: [place] 1:37 PM [facility] REPOSITORY HNO ID: [id number] Author: Ivette Murphy Service: Orthopaedic Surgery Author Type: Physician Type: Operative Report Filed: 02/01/2018 12:49 PM Note Text: [place] [address] [place] ? OPERATIVE REPORT ? NAME: RALPH JOSHI ? [facility] #: [id number] ? ?AGE: 62 ? DATE OF PROCEDURE: 01/25/2018 ? I was present for and participated in 100% of this procedure. ? SURGEON 1: Ivette Murphy M.D. SURGEON 2: ?? ASSEMBLER FOR PULLER OVER MACHINE 1: Kei Leahy MD ASSEMBLER FOR PULLER OVER MACHINE 2: PREOPERATIVE DIAGNOSIS: 1. Left foot retained hardware. 2. Left foot varus deformity acquired. 3. Left foot equinus contracture. 4. Left foot peroneal tendon tear. POSTOPERATIVE DIAGNOSIS: 1. Left foot retained hardware. 2. Left foot varus deformity acquired. 3. Left foot equinus contracture. 4. Left foot peroneal tendon tear. ? OPERATION: 1. ?Left foot removal of hardware 2. Left foot calcaneus osteotomy. 3. Left achilles tendon lengthening. 4. Left peroneal tenosynovectomy. 5. Left peroneus brevis tendon repair. This procedure was performed using #22 modifier. It was a revision surgery performed thru an altered surgical field and therefore took approximately twice as long as a primary procedure of this kind. ? Incision/Procedure Start Time: 2:49 PM Incision Close/Procedure End Time: 5:24 PM ? ANESTHESIA: General endotracheal anesthesia. ? OPERATIVE INDICATIONS: Patient is an 62-year-old female, who previously underwent left calcaneal osteotomy and now has varus heel with peroneal tenosynovitis. She is indicated for revision calcaneal osteotomy with hardware removal and peroneal tendon exploration. We discussed the rationale for, risks of, and prolonged recovery associated with this surgery. The patient expressed understanding of all issues including risks of infection, nerve damage, wound dehiscence, persistent nonhealing of the wound, incomplete relief of pain, inability to return to the patient's desired level of function, generalized dissatisfaction with the surgical procedure and outcome, deep vein thrombosis (DVT), pulmonary embolus, (PE), cardiac complications and . The patient expressed full understanding of all these issues and would like to proceed with surgery. ? OPERATIVE FINDINGS: The screws were removed and lateralizing calcaneal osteotomy was performed and fixed with a two 7.3 mm Synthes screws. An achilles lengthening was performed. Severe peroneal tenosynovitis was encountered and excised. A type 1 peroneus brevis tear was debrided and repaired with 4-0 Prolene. ? OPERATIVE PROCEDURE: After obtaining written and informed consent, the patient was taken to the operating room and placed supine on the operating room table.??She was then placed lateral on a beanbag. The left leg was prepped and draped. The leg was exsanguinated and a tourniquet inflated to 300 mm Hg. First, the two prior heel screws were removed. Next her prior lateral heel incision was reopened. A revision calcaneal osteotomy was made and the tuber shifted lateral and fixed with two Synthes 7.3 mm cannulated screws. Next an incision was made along the peroneal tendons. The tendon sheath was opened and a large amount of tenosynovitis was encountered and sharply excised with a 15 blade. The tendons were inspected. Longus was intact. The brevis had a type 1 tear which was sharply debrided then repaired with 4-0 Prolene. The SPR and sheath were then repaired. Tourniquet was let down and hemostasis obtained. The wound was then lavaged and closed in layers with 2-0 PDS, 3-0 and 4-0 Biosyn and 4-0 nylon. A bulky dressing and splint was placed. The patient was then awakened from anesthesia and taken to recovery room. ? ? POSTOPERATIVE PLAN: She will be on ASA 325 daily. She will be NWB. She will fu with Hermelinda Galo in one week for SLNWBC. She will fu with Hermelinda one week later for another SLNWBC. She will fu with Hermelinda two weeks later to have sutures removed. She will go into a high tide boot at that point and start gentle ROM. She will be NWB. She will fu with Hermelinda 4 wks later for XR. She will the progress to partial WB with two crutches and boot and start PT x 4 wks then WBAT in boot x 4 wks then fu with for XR. ? ESTIMATED BLOOD LOSS: Minimal. ? PACKING: None. ? DRAINS: None. ? CATHETERS: None. ? REPLACEMENTS: None. ? SPECIMENS: cultures. ? COUNTS: Sponge and instrument count was correct x2. ? CONDITION: Stable. ? ? ? Ivette Murphy M.D NURSING PROG Observed: 01/25/2018 Status: COMPLETED Source: [place] 11:03 AM [facility] [place] REPOSITORY O ID: [id number] Author: Ashley MinorRn) JONATHAN Bernard Service: (none) Author Type: Registered Nurse Type: Nursing Progress Note Filed: 01/25/2018 11:04 AM Note Text: GREEN BELT BEDSIDE DELIVERY SURVEY 1. Patient to use [facility] Bedside Delivery - YES 2. If fax, patient would like us to fax prescriptions to Pharmacy of choice a. Pharmacy: b. Location: c. Phone: 3. Insurance card on file - NO 4. Credit card for payment - NO No prescriptions yet. Please page [phone] upon discharge. NURSING PROG Observed: 01/25/2018 Status: COMPLETED Source: [place] 11:03 AM [facility] REPOSITORY HNO ID: [id number] Author: Ashley (Rn) Joana RN Service: (none) Author Type: Registered Nurse Type: Nursing Progress Note Filed: 01/25/2018 11:03 AM Note Text: PRE OP LEARNING ASSESSMENT PROCEDURE/SURGERY: (L) ankle hardware removal READINESS TO LEARN COGNITIVE ABILITY: Alert and oriented MOTIVATION TO LEARN: Eager Interested FAMILY SUPPORT: High - Very involved in pt care PATIENT LEARNS BEST BY: Multiple Methods FACTORS AFFECTING LEARNING: None PHYSICAL LIMITATIONS AFFECTING LEARNING: None Electronically Signed By: Ashley Bernard RN In Department: [facility] M023 SURGICAL PATHOLOGY Observed: 01/25/2018 Status: F Source: [place] 12:00 AM [facility] REPOSITORY Specimen originated from [facility] Specimen #: [id number] Submitting Physician: IVETTE MURPHY MD FINAL DIAGNOSIS Left foot, hardware removal - Unremarkable two metallic screws with no tissue present (gross diagnosis only). [place] 01/26/2018 Justen Krause M.D. (Electronic Signature) SPECIMEN SUBMITTED A: EXPLANT 2/SCREWS CLINICAL DATA PERONEAL TENDONITIS L FOOT GROSS DESCRIPTION A. Received in formalin labeled as explant 2/screws consists of two grossly unremarkable metallic screws, each measuring 5.1 cm in length and averaging 0.5 cm in diameter. No tissue is present. No sections are submitted. The specimen is shown to Dr. Krause. [place] 01/26/2018 Gross examination performed at [facility], [address] [id number] Date of Report: 01/26/2018 Date of Procedure: 01/25/2018 Date of Receipt: 01/25/2018 Submitted by: IVETTE MURPHY MD Location: 2 Diagnostic interpretation performed at [facility], [facility] [address] [place] [address]. URINALYSIS, ROUTINE Collected: 01/23/2018 Status: F Source: [place] (DIPST[place]) 2:18 PM [facility] REPOSITORY Order Comment: How was Urine Obtained? CLEAN CATCH TYPE CODE TESTS RESULT OUT OF RANGE REFERENCE UNITS LAB L400.3000 Yellow COLOR Normal Straw LAB L400.3050 Clear Normal CLARITY Clear LAB L400.3200 Normal mg/dl Normal GLUCOSE, UR Normal LAB L400.3300 Negative mg/dL Normal BILIRUBIN URINE Negative LAB L400.3400 Negative mg/dl Normal KETONE UR Negative LAB L400.3465 1.002-1.030 Normal SP.GR. DIPSTX 1.005 LAB L400.3550 5.0 - 8.0 pH UR Normal 6.5 LAB L400.3600 Negative mg/dl PROT Normal DIPSTX Negative LAB L400.3700 Normal mg/dl Normal UROBILI Normal LAB L400.3750 Negative Normal NITRITE UR Negative LAB L400.3780 Negative /ul Normal OCCULT BLOOD-UR Negative LAB L400.3800 Negative /ul High LEUK 25 ESTERASE Performed By: #### L400.2010 #### [facility] [address] [place], [place], [address] CBC-COMPLETE BLOOD CNT Collected: 01/23/2018 Status: F Source: [place] NO DIFF 2:18 PM [facility] REPOSITORY TYPE CODE TESTS RESULT OUT OF RANGE REFERENCE UNITS LAB L100.1000 4.4-11.0 K/mm3 Normal WBC 8.8 LAB L100.1200 4.2-5.4 M/mm3 Normal RBC 4.98 LAB L100.1300 12.0-15.0 g/dl Normal HGB 14.8 LAB L100.1400 37-47 % Normal HCT 44.2 LAB L100.1500 81-99 fL Normal MCV 88.8 LAB L100.1600 27.0-32.0 pg Normal MCH 29.7 LAB L100.1700 32-36 g/gl Normal MCHC 33.5 LAB L100.1810 11.6-14.6 % Normal RDW CV 14.0 LAB L100.1820 35.1-43.9 fl High RDW SD 45.0 LAB L100.1900 150-450 K/mm3 Normal PLT 233 LAB L100.2000 6.2-12.0 fl Normal MPV 10.6 Performed By: #### L100.0500 #### [facility] [address] [place], [address] LIVER PROFILE Collected: 01/23/2018 Status: F Source: [place] 2:18 PM [facility] REPOSITORY TYPE CODE TESTS RESULT OUT OF RANGE REFERENCE UNITS LAB L501.1500 6.4-8.2 g/dL Normal T PROT 7.0 LAB L501.1800 3.2-5.0 g/dL Normal ALB 3.7 LAB L501.1950 2.2-4.2 g/dL Normal GLOB 3.3 LAB L501.4100 15-37 U/L Normal AST 15 LAB L501.4305 45-117 U/L Normal ALK P 85 LAB L501.4405 13-56 U/L Normal ALT 35 LAB L501.4600 0.20-1.00 mg/dL Normal T BILI 0.60 LAB L501.4700 0.00-0.30 mg/dL Normal D BILI 0.16 Performed By: #### L500.3400, L501.1000, L501.1105 #### [facility] [address] [place], [address] BUN Collected: 01/23/2018 Status: F Source: [place] 2:18 PM [facility] REPOSITORY TYPE CODE TESTS RESULT OUT OF RANGE REFERENCE UNITS LAB L501.1000 7-18 mg/dL High BUN 25 Performed By: #### L500.3400, L501.1000, L501.1105 #### [facility] [address] [place], [place], [address] SERUM CREATININE AND Collected: 01/23/2018 Status: F Source: [place] GFR 2:18 PM [facility] REPOSITORY TYPE CODE TESTS RESULT OUT OF RANGE REFERENCE UNITS LAB L501.1100 0.55-1.02 mg/dL High 1.26 CREAT,SERUM Result Comment: The validity of the calculated GFR AND GFRAA in patients over 70 years has not been determined. Clinical correlation is essential. LAB L501.1110 >60 mL/min Low EST GFR 46 Result Comment: Non- GFR Calc LAB L501.1115 >60 mL/min Low EST GFR - AA 55 Result Comment: GFR Calc Performed By: #### L500.3400, L501.1000, L501.1105 #### [facility] [address]ima [address]. [place], [place], [address] CYCLOSPORINE, BLOOD Collected: 01/23/2018 Status: F Source: [place] 2:18 PM [facility] REPOSITORY TYPE CODE TESTS RESULT OUT OF REFERENCE UNITS RANGE LAB L3400.3100 Cyclosporine Normal Result Comment: None Detected Therapeutic: Renal Transplant 100 - 250 Liver Transplant 100 - 400 Cardiac Transplant 100 - 400 Bone Marrow 200 - 300 Detection Limit = 25 Assay performed by Liquid Chromatography Tandem Mass Spectrometry (LC-MS/MS) If preferred testing methodology for Cyclosporine is Liquid Chromatography Tandem Mass Spectrometry (LC-MS/MS) please use test code [id number]. For testing performed by Immunoassay, please use test code [id number]. Performed at: [address] [id number] [employer] Director: Mik Alonso MD, Phone: [phone] Performed By: #### L3400.3090 #### [facility] (refer to report for specific site) refer to report for address and phone number PROGRESS Observed: 01/19/2018 Status: COMPLETED Source: [place] 2:56 PM [facility] REPOSITORY HNO ID: [id number] Author: Carlos A Painting (Srna) Service: (none) Author Type: Student Type: Progress Notes Filed: 01/19/2018 3:15 PM Note Text: ANESTHESIA PRE-OPERATIVE ASSESSMENT (PACE) SERVICE DATE: 01/19/2018 SERVICE TIME: 1402 ASSESSMENT AND PLAN: Ralph Joshi is a 62 year old female scheduled for Left foot removal of hardware, revision calcaneal osteotomy, peroneal tendon debridement. per Informed Consent in MAIN on 01/25/2018. PMH: 1) paralytic outlasting anesthetic for October 2016 cervical spine surgery. 2) anaphylactic allergy to phenylephrine. Per patient diagnosed with idiopathic anaphylaxis. 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 3) CP with activity. Has had for years per patient, takes nitro. Normal stress test in 2014. 4) HTN AND HPL, takes doxazosin, amlodipine, and atorvastatin. 5) asthma, takes intal nebulizer, levalbuterol nebulizer, pulmicort, and breo inhaler. 6) THONY, doesn't wear CPAP because she is allergic to the mask. Sleeps on her side. 7) cervical spondylosis s/p cervical surgery in 2016 [facility]: 4 FC: III METS: Do moderate work around the house such as vacuuming, sweeping floors, or carrying in groceries (3.50 METs) Patient WILL accept blood products. BLOOD WORK/PRODUCTS ORDERED: No blood products ordered HISTORY OF CHRONIC PAIN: No PAIN MANAGEMENT OPTIONS: Final pain management plan will be discussed on the day of surgery. ANESTHETIC OPTIONS: Final anesthesia management options will be discussed on day of surgery. PRE-OP PLAN ORDERED: Patient Instructed: ? No solid food or non-clear liquids after midnight. Clear liquids allowed until two hours before scheduled arrival. ? Patient instructed to take the following medications with a sip of water: nebulizers, inhalers, amoxicillin, cyclosporine, cardura, prevacid, lyrics, zafriculast Vital Signs: BP 139/79 Pulse 85 Ht 162.6 cm (5' 4.02) Wt 95 kg (209 lb 7 oz) LMP 08/07/2013 SpO2 95% BMI 35.93 kg/m? BMI 35.93 kg/(m2) Vital signs completed by: IMPACT Weight acquired: per HANDP. Height acquired: per HANDP Airway Exam: MOUTH OPENING/TMJ: Full jaw ROM MICROGNATHIA/OVERBITE: No MALLAMPATI SCORE is CLASS III UPPER LIP BITE TEST: Class II - Lower incisors can bite the upper lip below the amauri line DENTITION: Caps and/or crowns - upper incisors and Caps and/or crowns - lower incisors, front teeth THYROMENTAL DIST: WNL SHORT NECK: No NECK CIRCUMFERENCE >40 cm: Appears > than 40 CM NECK FLEX: Limited ROM NECK EXTENSION: Limited ROM AIRWAY HISTORY: History of head/neck surgery that distorted airway, including mouth, neck, or their mobility ARKS AIRWAY DETAIL: Date of ARKS: 10/25/2016 Airway Adjunct Oral Size: 4 Mask:Yes. Mask Size: 4 Easy Mask:Yes Intubation: Asleep Airway: ETT Oral Size :7 mm #Trials: 1. Stylette: Yes. Cricoid pressure:No Intubating Devices: Glidescope. Teaching Purpose: No Grade: I Difficulty Comments: N/A DATA: EKG READING: Confirmed - 04/19/2017 ? Procedure Date : Apr 19 2017 07:55:11 Edit Date : May 03 2017 16:48:56 ? Diagnosis:NORMAL SINUS RHYTHM CANNOT EXCLUDE INFERIOR MYOCARDIAL INFARCTION , AGE UNDETERMINED ANTERIOR MYOCARDIAL INFARCTION , AGE UNDETERMINED ABNORMAL ECG ? Ventricular Rate : 98 ?BPM Atrial Rate : 98 ?BPM P-R Interval : 178 ?ms OTHER TESTS: Stress Test: Date: 12/15/2014, Results: CONCLUSIONS: - Exam indication: Chest Pain - There is mild concentric left ventricular hypertrophy. Left ventricular systolic ?function is normal. EF = 50 ? 5% (visual est.) Baseline left ventricular diastolic function is consistent with abnormal relaxation (stage 1). LVEF is low normal. - The right ventricle is normal in size. Right ventricular systolic function is normal. - Prior echocardiogram performed on 03/18/2013. LVEF is now low normal. No other significant change. ? Echo: Date: 02/24/2017, Results: CONCLUSIONS: - Exam indication: Shortness of Breath - The left ventricle is normal in size. Left ventricular systolic function is normal. EF = 55 ? 5% (visual est.) Normal left ventricular diastolic function. - The right ventricle is normal in size. Right ventricular systolic function is normal. - Exam was compared with the prior echocardiographic exam performed on 11/06/2015. ? Lab Value Units Date High Low HB 15.4 g/dL 01/19/2018 15.5 11.5 HCT 47.4 % 01/19/2018 46.0 36.0 WBC 9.08 k/uL 01/19/2018 11.00 3.70 PLT 251 k/uL 01/19/2018 400 150 NA 140 mmol/L 01/19/2018 144 136 K 4.4 mmol/L 01/19/2018 5.1 3.7 GLUC 105 mg/dL 01/19/2018 99 74 BUN 21 mg/dL 01/19/2018 21 7 CREAT 1.46 mg/dL 01/19/2018 0.96 0.58 PTSEC 10.6 sec 01/19/2018 13.0 9.7 INR 1.0 no uni* 01/19/2018 1.3 0.9 APTT No results within date range. ALT No results within date range. AST No results within date range. TBILI No results within date range. TSH 2.650 uU/mL 10/24/2017 5.500 0.400 Lab Value Units Date High Low HCGQT No results within date range. UHCG No results within date range. HCG, BODY* No results within date range. ABORHD No results within date range. ABSCREEN No results within date range. HBA1C: Hemoglobin A1C (%) Date Value 04/19/2017 5.9 04/12/2017 5.9 ) Patient accompanied by self Case Discussed with Dr. Garcia OPTIMIZATION STATUS: Patient optimized for OR, pending DOS review. SIGNATURE: MOO Dove PATIENT NAME: Ralph Joshi DATE: January 19, 2018 TIME: 2:56 PM PAGER/CONTACT #: CNOV Observed: 01/19/2018 Status: COMPLETED Source: [place] 2:00 PM [facility] REPOSITORY Office Visit (PSSCMN) ADIRALPH Mckinnon ([id number]) 1955 F Date Time Provider Department 01/19/18 2:00 PM [facility] PSSCM[facility] During your visit today, we recorded the following information about you: Pulse Blood pressure Weight Height 85/minute 139/79 95 kg 1.626 m Carlos A Painting, MOO 01/19/2018 3:15 PM Addendum ANESTHESIA PRE-OPERATIVE ASSESSMENT (PACE) SERVICE DATE: 01/19/2018 SERVICE TIME: 1402 ASSESSMENT AND PLAN: Ralph Joshi is a 62 year old female scheduled for Left foot removal of hardware, revision calcaneal osteotomy, peroneal tendon debridement. per Informed Consent in MAIN on 01/25/2018. PMH: 1) paralytic outlasting anesthetic for October 2016 cervical spine surgery. 2) anaphylactic allergy to phenylephrine. Per patient diagnosed with idiopathic anaphylaxis. 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 3) CP with activity. Has had for years per patient, takes nitro. Normal stress test in 2014. 4) HTN AND HPL, takes doxazosin, amlodipine, and atorvastatin. 5) asthma, takes intal nebulizer, levalbuterol nebulizer, pulmicort, and breo inhaler. 6) THONY, doesn't wear CPAP because she is allergic to the mask. Sleeps on her side. 7) cervical spondylosis s/p cervical surgery in 2016 [facility]: 4 FC: III METS: Do moderate work around the house such as vacuuming, sweeping floors, or carrying in groceries (3.50 METs) Patient WILL accept blood products. BLOOD WORK/PRODUCTS ORDERED: No blood products ordered HISTORY OF CHRONIC PAIN: No PAIN MANAGEMENT OPTIONS: Final pain management plan will be discussed on the day of surgery. ANESTHETIC OPTIONS: Final anesthesia management options will be discussed on day of surgery. PRE-OP PLAN ORDERED: Patient Instructed: ? No solid food or non-clear liquids after midnight. Clear liquids allowed until two hours before scheduled arrival. ? Patient instructed to take the following medications with a sip of water: nebulizers, inhalers, amoxicillin, cyclosporine, cardura, prevacid, lyrics, zafriculast Vital Signs: BP 139/79 Pulse 85 Ht 162.6 cm (5' 4.02) Wt 95 kg (209 lb 7 oz) LMP 08/07/2013 SpO2 95% BMI 35.93 kg/m? BMI 35.93 kg/(m2) Vital signs completed by: IMPACT Weight acquired: per HANDP. Height acquired: per HANDP Airway Exam: MOUTH OPENING/TMJ: Full jaw ROM MICROGNATHIA/OVERBITE: No MALLAMPATI SCORE is CLASS III UPPER LIP BITE TEST: Class II - Lower incisors can bite the upper lip below the amauri line DENTITION: Caps and/or crowns - upper incisors and Caps and/or crowns - lower incisors, front teeth THYROMENTAL DIST: WNL SHORT NECK: No NECK CIRCUMFERENCE >40 cm: Appears > than 40 CM NECK FLEX: Limited ROM NECK EXTENSION: Limited ROM AIRWAY HISTORY: History of head/neck surgery that distorted airway, including mouth, neck, or their mobility ARKS AIRWAY DETAIL: Date of ARKS: 10/25/2016 Airway Adjunct Oral Size: 4 Mask:Yes. Mask Size: 4 Easy Mask:Yes Intubation: Asleep Airway: ETT Oral Size :7 mm #Trials: 1. Stylette: Yes. Cricoid pressure:No Intubating Devices: Glidescope. Teaching Purpose: No Grade: I Difficulty Comments: N/A DATA: EKG READING: Confirmed - 04/19/2017 ? Procedure Date : Apr 19 2017 07:55:11 Edit Date : May 03 2017 16:48:56 ? Diagnosis:NORMAL SINUS RHYTHM CANNOT EXCLUDE INFERIOR MYOCARDIAL INFARCTION , AGE UNDETERMINED ANTERIOR MYOCARDIAL INFARCTION , AGE UNDETERMINED ABNORMAL ECG ? Ventricular Rate : 98 ?BPM Atrial Rate : 98 ?BPM P-R Interval : 178 ?ms OTHER TESTS: Stress Test: Date: 12/15/2014, Results: CONCLUSIONS: - Exam indication: Chest Pain - There is mild concentric left ventricular hypertrophy. Left ventricular systolic ?function is normal. EF = 50 ? 5% (visual est.) Baseline left ventricular diastolic function is consistent with abnormal relaxation (stage 1). LVEF is low normal. - The right ventricle is normal in size. Right ventricular systolic function is normal. - Prior echocardiogram performed on 03/18/2013. LVEF is now low normal. No other significant change. ? Echo: Date: 02/24/2017, Results: CONCLUSIONS: - Exam indication: Shortness of Breath - The left ventricle is normal in size. Left ventricular systolic function is normal. EF = 55 ? 5% (visual est.) Normal left ventricular diastolic function. - The right ventricle is normal in size. Right ventricular systolic function is normal. - Exam was compared with the prior CC echocardiographic exam performed on 11/06/2015. ? Lab Value Units Date High Low HB 15.4 g/dL 01/19/2018 15.5 11.5 HCT 47.4 % 01/19/2018 46.0 36.0 WBC 9.08 k/uL 01/19/2018 11.00 3.70 PLT 251 k/uL 01/19/2018 400 150 NA 140 mmol/L 01/19/2018 144 136 K 4.4 mmol/L 01/19/2018 5.1 3.7 GLUC 105 mg/dL 01/19/2018 99 74 BUN 21 mg/dL 01/19/2018 21 7 CREAT 1.46 mg/dL 01/19/2018 0.96 0.58 PTSEC 10.6 sec 01/19/2018 13.0 9.7 INR 1.0 no uni* 01/19/2018 1.3 0.9 APTT No results within date range. ALT No results within date range. AST No results within date range. TBILI No results within date range. TSH 2.650 uU/mL 10/24/2017 5.500 0.400 Lab Value Units Date High Low HCGQT No results within date range. UHCG No results within date range. HCG, BODY* No results within date range. ABORHD No results within date range. ABSCREEN No results within date range. HBA1C: Hemoglobin A1C (%) Date Value 04/19/2017 5.9 04/12/2017 5.9 ) Patient accompanied by self Case Discussed with Dr. Garcia OPTIMIZATION STATUS: Patient optimized for OR, pending DOS review. SIGNATURE: MOO Dove PATIENT NAME: Ralph Joshi DATE: January 19, 2018 TIME: 2:56 PM PAGER/CONTACT #: Referring Provider: IVETTE MURPHY [[id number]] Allergies As of Date: 01/19/2018 Noted Allergy Reaction AVOCADO 09/10/2014 10 - Anaphylaxis BANANA 09/10/2014 10 - Anaphylaxis CARBINOXAMINE 09/17/2012 10 - Anaphylaxis YOSELIN SEED 08/28/2013 10 - Anaphylaxis CIPROFLOXACIN 04/11/2014 10 - Anaphylaxis CODEINE 01/12/2012 10 - Anaphylaxis CONTRAST DYE 05/17/2013 10 - Anaphylaxis Comments: To MRI and CT FISH 09/07/2014 10 - Anaphylaxis HYCODAN (HYDROCODONE-HOMATROPINE) 09/08/2011 10 - Anaphylaxis Comments: Face and throat swelling LATEX 01/21/2014 10 - Anaphylaxis IMTIAZ-SYNEPHRINE (PHENYLEPHRINE HCL)09/04/2014 10 - Anaphylaxis Comments: 10% eye drop NICKEL 01/07/2014 2 - Rash 4 - Hives 10 - Anaphylaxis NSAIDS (NON-STEROIDAL ANTI-INFLAM*08/16/2010 14 - Other: See Comments Comments: Kidney function drops; reversible kidney damage. OXYCODONE 08/28/2013 10 - Anaphylaxis PERIACTIN (CYPROHEPTADINE) 09/17/2012 10 - Anaphylaxis PNEUMOCOCCAL VACCINE 10/31/2014 10 - Anaphylaxis SHELLFISH 09/07/2014 10 - Anaphylaxis ZANTAC (RANITIDINE) 09/17/2012 10 - Anaphylaxis ATIVAN (LORAZEPAM) 08/28/2013 14 - Other: See Comments Comments: hallucination BEE STING 10/31/2017 10 - Anaphylaxis BEEF CONTAINING PRODUCTS 09/10/2014 2 - Rash CORN 05/03/2011 14 - Other: See Comments Comments: Feels like an asthma attack. EGGS (EGG) 03/08/2011 2 - Rash 11 - Vomiting EKG LEADS (ADHESIVE) 10/22/2012 2 - Rash Comments: Localized,only under the leads environmental [Other] 06/26/2007 14 - Other: See Comments Comments: Nasal congestion, brings on an asthma attack. INFLUENZA VIRUS VACCINES 10/22/2012 12 - Shortness of Breath LISINOPRIL 04/20/2004 3 - Cough MILK 03/08/2011 2 - Rash 11 - Vomiting MOMETASONE 04/05/2017 10 - Anaphylaxis Comments: Per Dr. Salas she tolerates formoterol (on Breo at home) but is allergic to mometasone. Okayed by him to update. surgical tape [Other] 11/10/2009 2 - Rash 7 - Swelling Comments: Oral rash, swelling of eyes, asthma attacks; per pateint report. XOLAIR (OMALIZUMAB) 04/19/2012 12 - Shortness of Breath Date Reviewed: 01/19/2018 Reviewed by: Carlos A Painting (Srna) - Fully Assessed Primary Visit Diagnosis:Pre-op evaluation [Z01.818] Prescriptions as of 01/19/2018 Sig: CROMOLYN 20 MG/2 ML SOLUTION * Use 2 mL via nebulizer four t* LEVALBUTEROL 1.25 MG/3 ML BRENDA* Use 1 Ampule via nebulizer ev* FLUTICASONE 50 MCG/ACTUATION * 1-2 sprays each side qd BUDESONIDE 0.5 MG/2 ML SUSPEN* Use 1 Ampule via nebulizer tw* AZELASTINE 0.15 % (205.5 MCG)* Use 1 Wilberforce in each nostril t* FLUTICASONE 200 MCG-VILANTERO* Inhale 1 Inhalation as instru* OSELTAMIVIR 75 MG CAPSULE Take 1 capsule by mouth twice* ACETAMINOPHEN 500 MG TABLET Take 500 mg by mouth every 8 * NITROGLYCERIN 0.4 MG SUBLINGU* DISSOLVE 1 TABLET UNDER THE T* TRIAMCINOLONE ACETONIDE 0.1 %* Apply 1 application to affect* DOXAZOSIN 4 MG TABLET Take 1 tablet by mouth once d* AMLODIPINE 10 MG TABLET Take 1 tablet by mouth once d* EPINEPHRINE 0.3 MG/0.3 ML INJ* Inject 0.3 mL intramuscularly* DIPHENHYDRAMINE 25 MG TABLET Take 1 tablet by mouth every * PREGABALIN 150 MG CAPSULE Take 1 capsule by mouth twice* PREGABALIN 150 MG CAPSULE Take 1 capsule by mouth twice* ATORVASTATIN 20 MG TABLET One tab on MWF only SPIRONOLACTONE 50 MG TABLET Take 1 tablet by mouth twice * LANSOPRAZOLE 30 MG CAPSULE,DE* TAKE 1 CAPSULE TWICE A DAY BUMETANIDE 0.5 MG TABLET Take 1 tablet by mouth once d* ALBUTEROL SULFATE HFA 90 MCG/* Inhale 2 Puffs as instructed * CHOLESTYRAMINE (WITH SUGAR) 4* Take 1 scoop by mouth once da* CYANOCOBALAMIN (VIT B-12) 1,0* Take 1 tablet by mouth once d* ERGOCALCIFEROL (VITAMIN D2) 5* Take 1 capsule by mouth once * Patient taking differently: Take 50,000 Units by mouth on* TURMERIC ROOT EXTRACT ORAL Take 1 tablet by mouth twice * CRISABOROLE 2 % TOPICAL OINTM* Apply to the hands twice daily COMPOUNDED PRESCRIPTION Please provide patient with n* CETIRIZINE 10 MG TABLET Take 10 mg by mouth once mary ellen* PIMECROLIMUS 1 % TOPICAL CREAM Apply twice daily to the hands ONDANSETRON HCL 4 MG TABLET Take 1 tablet by mouth every * BENZONATATE 200 MG CAPSULE Take 200 mg by mouth three ti* LACTOBACILLUS RHAMNOSUS GG 10* Take 1 capsule by mouth twice* AMOXICILLIN 250 MG CAPSULE Take 250 mg by mouth once liam* ZAFIRLUKAST 20 MG TABLET Take 1 tablet by mouth twice * CYCLOSPORINE MODIFIED 50 MG C* Take 50 mg by mouth twice liam* ASCORBIC ACID (VITAMIN C) 500* Take 1 tablet by mouth once d* Problem List As Of Date 01/19/2018 Noted Resolved JOINT PAIN-ANKLE [M25.579] INVALID FOR*03/20/2014 Edema [R60.9] INVALID FOR*03/28/2016 Priority: I Adrenal nodule (HCC) [E27.9] INVALID FOR* More... Diarrhea [R19.7] INVALID FOR*10/15/2013 Excessive or frequent menstruation [N92.0] INVALID FOR*07/14/2011 Shortness of breath [R06.02] INVALID FOR*10/15/2013 Palpitations [R00.2] INVALID FOR*03/20/2014 Tachycardia, unspecified [R00.0] INVALID FOR*10/15/2013 More... Open wound site NOS [T14.8XXA] INVALID FOR*07/16/2011 Abdominal pain, right upper quadrant [R10.11] INVALID FOR*07/14/2011 More... Acute gastritis without mention of hemorrhage [*INVALID FOR*10/15/2013 Hematuria [599.7] INVALID FOR*07/14/2011 URGE INCONTINENCE [N39.41] INVALID FOR* FEMALE STRESS INCONTINENCE [N39.3] INVALID FOR* Scar, hypertrophic [L91.0] INVALID FOR*10/15/2013 Ovarian cyst [N83.209] INVALID FOR*07/06/2010 Cyst INVALID FOR*10/15/2013 Other specified pre-operative examination [Z01.*INVALID FOR*07/16/2011 Hirsutism [L68.0] INVALID FOR* Dysphagia [R13.10] INVALID FOR*03/20/2014 GERD (gastroesophageal reflux disease) [K21.9] INVALID FOR* Priority: D More... 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 Obesity (BMI 30.0-34.9) [E66.9] INVALID FOR* More... More... More... More... Idiopathic anaphylaxis [T78.2XXA] INVALID FOR* Priority: A More... Urticaria, idiopathic [L50.1] INVALID FOR*03/28/2016 More... Hyperlipidemia LDL goal <100 [E78.5] INVALID FOR* Impaired fasting glucose [R73.01] INVALID FOR* Recurrent chest pain [R07.9, G89.29] INVALID FOR*12/09/2014 Multinodular goiter [E04.2] INVALID FOR* More... CKD (chronic kidney disease) stage 3, GFR 30-59*INVALID FOR* Pain in joint, ankle and foot [M25.579] INVALID FOR*12/09/2014 More... More... Steroid-induced hyperglycemia [R73.9, T38.0X5A] INVALID FOR*03/28/2016 Priority: C Moderate persistent asthma without complication*INVALID FOR* Ulcerative colitis without complications (HCC) *INVALID FOR* Anaphylaxis [T78.2XXA] INVALID FOR*03/26/2015 More... Neck pain, bilateral [M54.2] INVALID FOR*03/28/2016 Essential hypertension with goal blood pressure*INVALID FOR*03/28/2016 Chronic nausea [R11.0] INVALID FOR* Lumbar radiculitis [M54.16] INVALID FOR*03/28/2016 Lumbar stenosis [M48.061] INVALID FOR*03/28/2016 Acquired spondylolisthesis [M43.10] INVALID FOR*03/28/2016 Cervical radiculitis [M54.12] INVALID FOR*03/28/2016 Cervical spondylosis with radiculopathy [M47.22]INVALID FOR*03/29/2017 Shoulder impingement [M75.40] INVALID FOR*03/28/2016 Anaphylaxis [T78.2XXA] INVALID FOR*03/28/2016 Tendonitis, tibialis [M76.829] INVALID FOR*05/09/2016 Lumbar stenosis [M48.061] INVALID FOR* Cervical radiculitis [M54.12] INVALID FOR*03/29/2017 Cervical herniated disc [M50.20] INVALID FOR*03/29/2017 Cervical stenosis of spine [M48.02] INVALID FOR* Cervical spondylosis with myelopathy [M47.12] INVALID FOR*03/29/2017 Cervical myelopathy (HCC) [G95.9] INVALID FOR*03/29/2017 Claustrophobia [F40.240] INVALID FOR* Ptosis of eyelid, bilateral [H02.403] INVALID FOR*03/29/2017 More... Lumbar spondylosis [M47.816] INVALID FOR* More... Preop testing [Z01.818] INVALID FOR* More... Anaphylaxis [T78.2XXA] INVALID FOR* Essential hypertension [I10] INVALID FOR* Peroneal tendinitis, left [M76.72] INVALID FOR* Retained orthopedic hardware [Z96.9] INVALID FOR* More... Peroneal tendonitis of left lower extremity [M7*INVALID FOR* More... Encounter Status:Closed by CARLOS A PAINTING on 01/19/18 Chart Close Cosign Required by: Ned Garcia[] HISTORY PHYSICAL Observed: 01/19/2018 Status: COMPLETED Source: [place] 12:47 PM [facility] REPOSITORY [facility] ID: [id number] Author: Katia Evangelista Service: (none) Author Type: Physician Type: HANDP Filed: 01/20/2018 8:58 AM Note Text: HISTORY AND PHYSICAL EXAMINATION (IMPACT) SERVICE DATE: 01/19/2018 SERVICE TIME: 12:47 PM PRIMARY CARE PHYSICIAN: Anisa Caldwell MD CHIEF COMPLAINT/HISTORY OF PRESENT ILLNESS: Ms. Joshi is a 62 year old female referred to sc for preoperative evaluation. My final recommendations will be communicated back to the requesting physician/surgeon by the way of the shared medical record. Referring Surgeon: Dr. Allen Date of Surgery: 01/25/18 Planned Surgery/Procedure: REMOVAL HARDWARE FOOT Indication for Planned Surgery / Procedure: Left foot and need removal of the hardware Refer to Assessment section for details of any comorbidities. Patient is Able to Perform the Following Physical Activity: Climb a flight of stairs or walk up a hill (5.50 METs) Patient denies any chest pain or undue shortness of breath with the above physical activity. Significant Anesthesia Considerations: took a while to get off the anesthesia the paralysing part. PAST MEDICAL/SURGICAL/FAMILY/SOCIAL HISTORY PAST MEDICAL HISTORY Diagnosis Date - Abdominal pain, other specified site - ACNE NEC 01/21/2008 - Actinic Keratosis (Premalignant AK) 06/05/2011 - ACUTE GASTRITIS W/O HEMORRHAGE 04/26/2007 - Allergic rhinitis 04/23/2012 - Anaphylactic reaction ideopathic - Benign tumor of adrenal gland - Biliary dyskinesia 10/29/2009 - Cervical herniated disc 10/20/2016 - Cervical myelopathy (HCC) 10/25/2016 - Cervical radiculitis 10/20/2016 - Cervical spondylosis with radiculopathy 11/17/2015 - JAIN ANGIOMA///NEVUS, NON-NEOPLASTIC 05/28/2007 - CKD (chronic kidney disease) stage 3, GFR 30-59 ml/min (HCC) 04/29/2013 - Diaphragmatic hernia without mention of obstruction or gangrene 05/25/2011 - Diverticulosis of colon (without mention of hemorrhage) - Edema 07/07/2004 - Epigastric pain - GERD (gastroesophageal reflux disease) - HTN (hypertension) 2002 controlled on Diovan - Hyperlipidemia 10/15/2013 - IRON DEFIC ANEMIA NOS 04/26/2007 - Moderate persistent asthma without complication 02/18/2015 - Ovarian cyst Benign ovarian cyst, S/P laparoscopic LSO - Ptosis of eyelid, bilateral 12/23/2016 Added automatically from request for surgery [id number] - Shoulder impingement 11/17/2015 - Sleep apnea intollerant to CPAP because allergic to material on mask - Steroid-induced hyperglycemia 09/06/2014 - TACHYCARDIA NOS 01/09/2006 - Tarsal tunnel syndrome 12/23/2009 - Tear of lateral meniscus of knee 02/21/2014 - Ulcerative colitis, unspecified - UTERINE LEIOMYOMA NOS 12/23/2005 - VIRAL WARTS NOS 05/09/2006 - Vocal cord dysfunction PAST SURGICAL HISTORY Procedure Laterality Date - CHOLECYSTECTOMY HX - COLONOSCOP W/ OR W/O BRSH SPEC 09/06/2005 Colonoscopy - COLONOSCOP W/ OR W/O BRS SPEC Colonoscopy - COLONOSCOP W/ OR W/O BRSH SPEC 05/28/2012 Colonoscopy repeat 5 years. - EGD 07/29/14 normal - EGD W/O OR W/BRUSH/WASH 09/06/2005 EGD - EGD W/O OR W/BRUSH/WASH 04/26/2007 EGD - EGD W/O OR W/BRUSH/WASH 05/25/2011 EGD - EGD W/O OR W/BRUSH/WASH 05/28/2012 EGD - L'SCOPE REM ADNEX W/PART/TOT OOPH/SALP 06/11/2009 Laparoscopic LSO for benign ovarian cyst - LAMINECTOMY,CERVICAL 10/2016 - LAP CHOLECYSTECT/CHOLANGIOGRAPHY 10/30/09 Normal IOC - ORTHOPEDICS SURGERY HX 12/2013 repaired Rt achilles tendon - PAST SURGICAL HISTORY OF 09/19 left foot surgery on heel and repaired torn tdndon - SIGMOIDOSCOPY FLEX DIAG 05/20/08 - TARSAL TUNNEL RELEASE 07/2010 Left foot FAMILY HISTORY Problem Relation Age of Onset - Colon Cancer Father dx age 60. Alive at 85. - Hypertension Father Alive at 85. - Cataract Father Alive at 85. - Thyroid Father Alive at 85. - Heart Father [place] at 87 - Diabetes Mother colon polyps. age 72. - Hypertension Mother age 72. - other (benign brainstem tumor) Mother Persistent vegetative state. age 72. - defects Sister infant - Glaucoma Maternal Grandmother - Stroke Maternal Grandfather - Cancer Paternal Grandmother cervical - Colon Cancer Son 38 colon and rectal cancer - Breast Cancer Sister Developed in late 20s. Alive at 52. 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 Disp: 240 mL Rfl: 5 levalbuterol (XOPENEX) 1.25 mg/3 mL nebulizer solution Use 1 Ampule via nebulizer every 4 hours as needed. Inhale over 5-15 minutes Disp: 300 Ampule Rfl: 3 fluticasone (FLONASE) 50 mcg/actuation nasal spray 1-2 sprays each side qd Disp: 3 Bottle Rfl: 3 budesonide (PULMICORT) 0.5 mg/2 mL nebulizer solution Use 1 Ampule via nebulizer twice daily. Disp: 180 Ampule Rfl: 3 Azelastine 0.15 % (205.5 mcg) spry Use 1 Wilberforce in each nostril twice daily. Disp: 3 Bottle Rfl: 3 fluticasone-vilanterol (BREO ELLIPTA) 200-25 mcg/dose inhaler Inhale 1 Inhalation as instructed once daily. Disp: 3 Each Rfl: 3 oseltamivir (TAMIFLU) 75 mg capsule Take 1 capsule by mouth twice daily. Disp: 10 capsule Rfl: 0 acetaminophen (TYLENOL EXTRA STRENGTH) 500 mg tablet Take 500 mg by mouth every 8 hours as needed. Disp: Rfl: nitroglycerin sublingual (NITROQUICK) 0.4 mg SL tablet DISSOLVE 1 TABLET UNDER THE TONGUE NEEDED FOR CHEST PAIN. IF NO RELIEF, CALL 911 Disp: 25 tablet Rfl: 3 doxazosin (CARDURA) 4 mg tablet Take 1 tablet by mouth once daily. Disp: 30 tablet Rfl: 11 amLODIPine (NORVASC) 10 mg tablet Take 1 tablet by mouth once daily. Disp: 30 tablet Rfl: 11 EPINEPHrine (EPIPEN) 0.3 mg/0.3 mL auto-injector Inject 0.3 mL intramuscularly as needed. Inject full content of the syringe. Disp: 2 Each Rfl: 2 diphenhydrAMINE (BENADRYL) 25 mg tablet Take 1 tablet by mouth every 6 hours as needed for Itching/Rash. Disp: 30 tablet Rfl: 0 pregabalin (LYRICA) 150 mg capsule Take 1 capsule by mouth twice daily for 181 days. Disp: 180 capsule Rfl: 1 pregabalin (LYRICA) 150 mg capsule Take 1 capsule by mouth twice daily for 90 days. Disp: 180 capsule Rfl: 1 atorvastatin (LIPITOR) 20 mg tablet One tab on MWF only Disp: Rfl: spironolactone (ALDACTONE) 50 mg tablet Take 1 tablet by mouth twice daily. Disp: 180 tablet Rfl: 3 lansoprazole (PREVACID) 30 mg capsule TAKE 1 CAPSULE TWICE A DAY Disp: 180 capsule Rfl: 3 bumetanide (BUMEX) 0.5 mg tablet Take 1 tablet by mouth once daily. Disp: 90 tablet Rfl: 3 albuterol HFA (PROAIR HFA) 90 mcg/actuation inhaler Inhale 2 Puffs as instructed every 6 hours as needed for Wheezing/Shortness of Breath. Disp: 1 Inhaler Rfl: 5 cholestyramine-sucrose (QUESTRAN) 4 gram powder Take 1 scoop by mouth once daily. Disp: 1134 g Rfl: 4 cyanocobalamin (VITAMIN B-12) 1,000 mcg tab Take 1 tablet by mouth once daily. Disp: Rfl: ergocalciferol, vitamin D2, (VITAMIN D) 50,000 unit capsule Take 1 capsule by mouth once each week. (Patient taking differently: Take 50,000 Units by mouth once each week. Every Monday ) Disp: 12 capsule Rfl: 4 TURMERIC ROOT EXTRACT ORAL Take 1 tablet by mouth twice daily. Disp: Rfl: crisaborole (EUCRISA) 2 % oint Apply to the hands twice daily Disp: 60 g Rfl: 3 COMPOUNDED PRESCRIPTION Please provide patient with nebulizer machine and supplies.Diagnosis: Severe Asthma. Disp: 1 Each Rfl: 0 cetirizine (ZYRTEC) 10 mg tablet Take 10 mg by mouth once daily. Disp: Rfl: pimecrolimus (ELIDEL) 1 % cream Apply twice daily to the hands Disp: 30 Tube Rfl: 3 ondansetron (ZOFRAN) 4 mg tablet Take 1 tablet by mouth every 8 hours as needed. Disp: 30 tablet Rfl: 3 Benzonatate 200 mg capsule Take 200 mg by mouth three times daily as needed for Cough. Disp: 30 capsule Rfl: 1 lactobacillus rhamnosus (CULTURELLE) 10 billion cell capsule Take 1 capsule by mouth twice daily. Disp: Rfl: amoxicillin (POLYMOX, AMOXIL) 250 mg capsule Take 250 mg by mouth once daily. Disp: Rfl: zafirlukast (ACCOLATE) 20 mg tablet Take 1 tablet by mouth twice daily. Disp: 60 tablet Rfl: 11 cycloSPORINE Modified 50 mg capsule Take 50 mg by mouth twice daily. Disp: Rfl: ascorbic acid (VITAMIN C) 500 mg tablet Take 1 tablet by mouth once daily. Disp: 90 tablet Rfl: 0 triamcinolone acetonide (KENALOG) 0.1 % cream Apply 1 application to affected area three times daily. Apply to affected area. Location: arms Disp: 30 g Rfl: 0 atenolol (TENORMIN) 25 mg tablet Take 1 tablet by mouth once daily. Disp: 30 tablet Rfl: 5 No current facility-administered medications for this visit. ALLERGIES Allergen Reactions - Avocado Anaphylaxis - Banana Anaphylaxis - Carbinoxamine Anaphylaxis - Yoselin Seed Anaphylaxis - Ciprofloxacin Anaphylaxis - Codeine Anaphylaxis - Contrast Dye Anaphylaxis To MRI and CT - Fish Anaphylaxis - Hycodan [Hydrocodon* Anaphylaxis Face and throat swelling - Latex Anaphylaxis - Imtiaz-Synephrine [Phe* Anaphylaxis 10% eye drop - Nickel Rash, Hives, Anaphylaxis - Nsaids (Non-Steroid* Other: See Comments Kidney function drops; reversible kidney damage. - Oxycodone Anaphylaxis - Periactin [Cyprohep* Anaphylaxis - Pneumococcal Vaccine Anaphylaxis - Shellfish Anaphylaxis - Zantac [Ranitidine] Anaphylaxis - Ativan [Lorazepam] Other: See Comments hallucination - Bee Sting Anaphylaxis - Beef Containing Pro* Rash - Berino Other: See Comments Feels like an asthma attack. - Eggs [Egg] Rash, Vomiting - Ekg Leads [Adhesive] Rash Localized,only under the leads - Environmental [Othe* Other: See Comments Nasal congestion, brings on an asthma attack. - Influenza Virus Vac* Shortness of Breath - Lisinopril Cough - Milk Rash, Vomiting - Mometasone Anaphylaxis Per Dr. Salas she tolerates formoterol (on Breo at home) but is allergic to mometasone. Okayed by him to update. - Surgical Tape [Othe* Rash, Swelling Oral rash, swelling of eyes, asthma attacks; per pateint report. - Xolair [Omalizumab] Shortness of Breath REVIEW OF SYSTEMS General: No weight loss, malaise or fevers. Neuro: No history of TIA's, stroke, REFERRAL MANAGER tumor, impaired sensorium, hemiplegia, paraplegia or quadriplegia. No neurological symptoms or problems. Respiratory: Asthma, THONY not on CPAP, denies SOB now Cardiovascular: Hypertension requiring meds, no chest pain on exertion,occasional chest pain not related to exercise,normal stress test prior,no cath GI: GERD, on pPI,intermittent diarrhea and constipation : No history of UTI in past 6 weeks. No history of renal failure. Not currently on or requiring dialysis. No history of symptoms or problems. Endocrine: No history of diabetes. Has not taken steroids within the past 30 days. No history of endocrinological symptoms or problems., . Hematology: No history of bleeding or clotting disorder. No history of hematological symptoms or problems. Oncology: No history of CA metastasis, chemo within 30 days, or radiotherapy within 90 days. No history of oncological symptoms or problems. Psych: No history of psychiatric symptoms or problems. PHYSICAL EXAM VITALS: BP 137/79 Pulse 85 Temp (Src) 97.6 (Oral) Ht 5' 4 (1.63m) Wt 209 lb 8 oz (95.0kg) SpO2 95% LMP 08/07/2013 BMI 35.94 kg/(m2). General: Alert and oriented Skin: Normal color, no rash, no lesions. HEENT: EOM, pupils equal, round and reactive. Cardiovascular: Normal S1 AND S2, no rubs, murmurs or gallops. No JVD. Pulse regular. Lungs: Normal breath sounds, no wheezes or crackles. Abdomen: Soft, non-tender, no rigidity. Extremities: No deformity, no edema or tenderness, no joint swelling or clubbing. Neurological: Normal cognition and motor skills. Pulses: Carotid and radial pulses normal +2. ASSESSMENT Ms. Joshi is a 62 year old female referred to me for preoperative evaluation. Patient has the following medical comorbidities which might affect the perioperative course: - Chronic Asthma which is moderate and persistent. - Hypertension, well controlled. - Patient with sleep apnea and uses allergic to mask,not using CPAP. -Chronic chest pain,evaluated by cards,not cardiac related as her sterss test is normal per caridology -Chronic allergies, usually she gets steroids and benadryl prior to surgery - currnelty on Cyclosporine -CKD III,stable cr Patient's RCRI (Revised Cardiac Risk Index: CAD/CHF/Stroke or TIA/SCr>2/DM on Insulin/High Risk Surgery) score is 0 and is at low risk for major adverse cardiac events in the perioperative period. Diagnostic tests reviewed for today's visit: PENDING PLAN/RECOMMENDATIONS CARDIAC: Patient is at optimal cardiac condition for scheduled surgery / procedure. PULMONARY: Patient is at optimal Pulmonary status for scheduled surgery / procedure. RENAL: - Suggest following in the postoperative period due to patient's pre-existing renal disease: Avoid nephrotoxic medications Dose medications on estimated serum creatinine clearance Monitor fluid balance closely and avoid hypotension. Avoid dehydration / volume depletion Monitor serum creatinine VASCULAR/ANTICOAGULATION: VTE prophylaxis as deemed appropriate by the surgical service. Allergy: per own clerical investigator, Recommends 60mg IV methylpred and 50mg IV benadryl prior to surgery. Continue antihistamines, cyclosporine, Cromolyn/nebs uninterrupted in the perioperative period. Please order epiPEN as PRN. - Pt to bring her own Xopenex as nonformulary - Consider allergy consult if assistance required Patient is optimally prepared for surgery pending labs Patient Instructions: As per patient instructions section. General Preoperative/Medication/Fasting Instructions I have discussed the above recommendations with the patient in detail, in sonia and lay terms, and provided a written summary of instructions as needed. We have discussed that no surgery is without risk, but that the goal of preoperative assessment is to optimize that risk, and that was clearly understood by the patient. I have given ample opportunity for the patient to ask questions, and answered all questions to their stated satisfaction. SIGNATURE: Katia Evangelista MD PATIENT NAME: Ralph Pratibha Adi DATE: January 19, 2018 TIME: 12:47 PM Labs reviewed and within acceptable limit for surgery Patient is medically optimized for the planned surgery Katia Evangelista MD, [facility], Dept of Hospital Medicine January 20, 2018 8:57 AM Pager:[phone] CNOV Observed: 01/19/2018 Status: COMPLETED Source: [place] 12:45 PM [facility] REPOSITORY Office Visit (IMPAMN) RALPH JOSHI ([id number]) 1955 F Date Time Provider Department 01/19/18 12:45 PM KATIA EVANGELISTA During your visit today, we recorded the following information about you: Temperature Pulse Blood pressure Weight 97.6 degrees 85/minute 137/79 95 kg Height 1.626 m Brenda Sampson 01/19/2018 1:25 PM Signed Ralph Joshi is a 62 year old female here today for visit in [facility] Referring Surgeon: Dr. Murphy Date of Surgery: 01/25/2018 Planned Surgery/Procedure: REMOVAL HARDWARE FOOT Allergies have been reviewed and verified. They include the following: Avocado; Banana; Carbinoxamine; Yoselin Seed; Ciprofloxacin; Codeine; Contrast Dye; Fish; Hycodan [Hydrocodone-Homatropine]; Latex; Imtiaz-Synephrine [Phenylephrine Hcl]; Nickel; Nsaids (Non-Steroidal Anti-Inflammatory Drug); Oxycodone; Periactin [Cyproheptadine]; Pneumococcal Vaccine; Shellfish; Zantac [Ranitidine]; Ativan [Lorazepam]; Bee Sting; Beef Containing Products; Berino; Eggs [Egg]; Ekg Leads [Adhesive]; Environmental [Other]; Influenza Virus Vaccines; Lisinopril; Milk; Mometasone; Surgical Tape [Other]; Xolair [Omalizumab] Social History Substance Use Topics - Smoking status: Never Smoker - Smokeless tobacco: Never Used - Alcohol use No Medications reviewed and updated: Yes Brenda Evangelista MD 01/20/2018 8:58 AM Addendum HISTORY AND PHYSICAL EXAMINATION (IMPACT) SERVICE DATE: 01/19/2018 SERVICE TIME: 12:47 PM PRIMARY CARE PHYSICIAN: Anisa Caldwell MD CHIEF COMPLAINT/HISTORY OF PRESENT ILLNESS: Ms. Joshi is a 62 year old female referred to me for preoperative evaluation. My final recommendations will be communicated back to the requesting physician/surgeon by the way of the shared medical record. Referring Surgeon: Dr. Allen Date of Surgery: 01/25/18 Planned Surgery/Procedure: REMOVAL HARDWARE FOOT Indication for Planned Surgery / Procedure: Left foot and need removal of the hardware Refer to Assessment section for details of any comorbidities. Patient is Able to Perform the Following Physical Activity: Climb a flight of stairs or walk up a hill (5.50 METs) Patient denies any chest pain or undue shortness of breath with the above physical activity. Significant Anesthesia Considerations: took a while to get off the anesthesia the paralysing part. PAST MEDICAL/SURGICAL/FAMILY/SOCIAL HISTORY PAST MEDICAL HISTORY Diagnosis Date - Abdominal pain, other specified site - ACNE NEC 01/21/2008 - Actinic Keratosis (Premalignant AK) 06/05/2011 - ACUTE GASTRITIS W/O HEMORRHAGE 04/26/2007 - Allergic rhinitis 04/23/2012 - Anaphylactic reaction ideopathic - Benign tumor of adrenal gland - Biliary dyskinesia 10/29/2009 - Cervical herniated disc 10/20/2016 - Cervical myelopathy (HCC) 10/25/2016 - Cervical radiculitis 10/20/2016 - Cervical spondylosis with radiculopathy 11/17/2015 - JAIN ANGIOMA///NEVUS, NON-NEOPLASTIC 05/28/2007 - CKD (chronic kidney disease) stage 3, GFR 30-59 ml/min (HCC) 04/29/2013 - Diaphragmatic hernia without mention of obstruction or gangrene 05/25/2011 - Diverticulosis of colon (without mention of hemorrhage) - Edema 07/07/2004 - Epigastric pain - GERD (gastroesophageal reflux disease) - HTN (hypertension) 2002 controlled on Diovan - Hyperlipidemia 10/15/2013 - IRON DEFIC ANEMIA NOS 04/26/2007 - Moderate persistent asthma without complication 02/18/2015 - Ovarian cyst Benign ovarian cyst, S/P laparoscopic LSO - Ptosis of eyelid, bilateral 12/23/2016 Added automatically from request for surgery [id number] - Shoulder impingement 11/17/2015 - Sleep apnea intollerant to CPAP because allergic to material on mask - Steroid-induced hyperglycemia 09/06/2014 - TACHYCARDIA NOS 01/09/2006 - Tarsal tunnel syndrome 12/23/2009 - Tear of lateral meniscus of knee 02/21/2014 - Ulcerative colitis, unspecified - UTERINE LEIOMYOMA NOS 12/23/2005 - VIRAL WARTS NOS 05/09/2006 - Vocal cord dysfunction PAST SURGICAL HISTORY Procedure Laterality Date - CHOLECYSTECTOMY HX - COLONOSCOP W/ OR W/O BRSH SPEC 09/06/2005 Colonoscopy - COLONOSCOP W/ OR W/O BRSH SPEC Colonoscopy - COLONOSCOP W/ OR W/O BRSH SPEC 05/28/2012 Colonoscopy repeat 5 years. - EGD 07/29/14 normal - EGD W/O OR W/BRUSH/WASH 09/06/2005 EGD - EGD W/O OR W/BRUSH/WASH 04/26/2007 EGD - EGD W/O OR W/BRUSH/WASH 05/25/2011 EGD - EGD W/O OR W/BRUSH/WASH 05/28/2012 EGD - L'SCOPE REM ADNEX W/PART/TOT OOPH/SALP 06/11/2009 Laparoscopic LSO for benign ovarian cyst - LAMINECTOMY,CERVICAL 10/2016 - LAP CHOLECYSTECT/CHOLANGIOGRAPHY 10/30/09 Normal [facility] - ORTHOPEDICS SURGERY HX 12/2013 repaired Rt achilles tendon - PAST SURGICAL HISTORY OF 09/19 left foot surgery on heel and repaired torn tdndon - SIGMOIDOSCOPY FLEX DIAG 05/20/08 - TARSAL TUNNEL RELEASE 07/2010 Left foot FAMILY HISTORY Problem Relation Age of Onset - Colon Cancer Father dx age 60. Alive at 85. - Hypertension Father Alive at 85. - Cataract Father Alive at 85. - Thyroid Father Alive at 85. - Heart Father [place] at 87 - Diabetes Mother colon polyps. age 72. - Hypertension Mother age 72. - other (benign brainstem tumor) Mother Persistent vegetative state. age 72. - defects Sister infant - Glaucoma Maternal Grandmother - Stroke Maternal Grandfather - Cancer Paternal Grandmother cervical - Colon Cancer Son 38 colon and rectal cancer - Breast Cancer Sister Developed in late 20s. Alive at 52. 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 Disp: 240 mL Rfl: 5 levalbuterol (XOPENEX) 1.25 mg/3 mL nebulizer solution Use 1 Ampule via nebulizer every 4 hours as needed. Inhale over 5-15 minutes Disp: 300 Ampule Rfl: 3 fluticasone (FLONASE) 50 mcg/actuation nasal spray 1-2 sprays each side qd Disp: 3 Bottle Rfl: 3 budesonide (PULMICORT) 0.5 mg/2 mL nebulizer solution Use 1 Ampule via nebulizer twice daily. Disp: 180 Ampule Rfl: 3 Azelastine 0.15 % (205.5 mcg) spry Use 1 Wilberforce in each nostril twice daily. Disp: 3 Bottle Rfl: 3 fluticasone-vilanterol (BREO ELLIPTA) 200-25 mcg/dose inhaler Inhale 1 Inhalation as instructed once daily. Disp: 3 Each Rfl: 3 oseltamivir (TAMIFLU) 75 mg capsule Take 1 capsule by mouth twice daily. Disp: 10 capsule Rfl: 0 acetaminophen (TYLENOL EXTRA STRENGTH) 500 mg tablet Take 500 mg by mouth every 8 hours as needed. Disp: Rfl: nitroglycerin sublingual (NITROQUICK) 0.4 mg SL tablet DISSOLVE 1 TABLET UNDER THE TONGUE NEEDED FOR CHEST PAIN. IF NO RELIEF, CALL 911 Disp: 25 tablet Rfl: 3 doxazosin (CARDURA) 4 mg tablet Take 1 tablet by mouth once daily. Disp: 30 tablet Rfl: 11 amLODIPine (NORVASC) 10 mg tablet Take 1 tablet by mouth once daily. Disp: 30 tablet Rfl: 11 EPINEPHrine (EPIPEN) 0.3 mg/0.3 mL auto-injector Inject 0.3 mL intramuscularly as needed. Inject full content of the syringe. Disp: 2 Each Rfl: 2 diphenhydrAMINE (BENADRYL) 25 mg tablet Take 1 tablet by mouth every 6 hours as needed for Itching/Rash. Disp: 30 tablet Rfl: 0 pregabalin (LYRICA) 150 mg capsule Take 1 capsule by mouth twice daily for 181 days. Disp: 180 capsule Rfl: 1 pregabalin (LYRICA) 150 mg capsule Take 1 capsule by mouth twice daily for 90 days. Disp: 180 capsule Rfl: 1 atorvastatin (LIPITOR) 20 mg tablet One tab on MWF only Disp: Rfl: spironolactone (ALDACTONE) 50 mg tablet Take 1 tablet by mouth twice daily. Disp: 180 tablet Rfl: 3 lansoprazole (PREVACID) 30 mg capsule TAKE 1 CAPSULE TWICE A DAY Disp: 180 capsule Rfl: 3 bumetanide (BUMEX) 0.5 mg tablet Take 1 tablet by mouth once daily. Disp: 90 tablet Rfl: 3 albuterol HFA (PROAIR HFA) 90 mcg/actuation inhaler Inhale 2 Puffs as instructed every 6 hours as needed for Wheezing/Shortness of Breath. Disp: 1 Inhaler Rfl: 5 cholestyramine-sucrose (QUESTRAN) 4 gram powder Take 1 scoop by mouth once daily. Disp: 1134 g Rfl: 4 cyanocobalamin (VITAMIN B-12) 1,000 mcg tab Take 1 tablet by mouth once daily. Disp: Rfl: ergocalciferol, vitamin D2, (VITAMIN D) 50,000 unit capsule Take 1 capsule by mouth once each week. (Patient taking differently: Take 50,000 Units by mouth once each week. Every Monday ) Disp: 12 capsule Rfl: 4 TURMERIC ROOT EXTRACT ORAL Take 1 tablet by mouth twice daily. Disp: Rfl: crisaborole (EUCRISA) 2 % oint Apply to the hands twice daily Disp: 60 g Rfl: 3 COMPOUNDED PRESCRIPTION Please provide patient with nebulizer machine and supplies.Diagnosis: Severe Asthma. Disp: 1 Each Rfl: 0 cetirizine (ZYRTEC) 10 mg tablet Take 10 mg by mouth once daily. Disp: Rfl: pimecrolimus (ELIDEL) 1 % cream Apply twice daily to the hands Disp: 30 Tube Rfl: 3 ondansetron (ZOFRAN) 4 mg tablet Take 1 tablet by mouth every 8 hours as needed. Disp: 30 tablet Rfl: 3 Benzonatate 200 mg capsule Take 200 mg by mouth three times daily as needed for Cough. Disp: 30 capsule Rfl: 1 lactobacillus rhamnosus (CULTURELLE) 10 billion cell capsule Take 1 capsule by mouth twice daily. Disp: Rfl: amoxicillin (POLYMOX, AMOXIL) 250 mg capsule Take 250 mg by mouth once daily. Disp: Rfl: zafirlukast (ACCOLATE) 20 mg tablet Take 1 tablet by mouth twice daily. Disp: 60 tablet Rfl: 11 cycloSPORINE Modified 50 mg capsule Take 50 mg by mouth twice daily. Disp: Rfl: ascorbic acid (VITAMIN C) 500 mg tablet Take 1 tablet by mouth once daily. Disp: 90 tablet Rfl: 0 triamcinolone acetonide (KENALOG) 0.1 % cream Apply 1 application to affected area three times daily. Apply to affected area. Location: arms Disp: 30 g Rfl: 0 atenolol (TENORMIN) 25 mg tablet Take 1 tablet by mouth once daily. Disp: 30 tablet Rfl: 5 No current facility-administered medications for this visit. ALLERGIES Allergen Reactions - Avocado Anaphylaxis - Banana Anaphylaxis - Carbinoxamine Anaphylaxis - Yoselin Seed Anaphylaxis - Ciprofloxacin Anaphylaxis - Codeine Anaphylaxis - Contrast Dye Anaphylaxis To MRI and CT - Fish Anaphylaxis - Hycodan [Hydrocodon* Anaphylaxis Face and throat swelling - Latex Anaphylaxis - Imtiaz-Synephrine [Phe* Anaphylaxis 10% eye drop - Nickel Rash, Hives, Anaphylaxis - Nsaids (Non-Steroid* Other: See Comments Kidney function drops; reversible kidney damage. - Oxycodone Anaphylaxis - Periactin [Cyprohep* Anaphylaxis - Pneumococcal Vaccine Anaphylaxis - Shellfish Anaphylaxis - Zantac [Ranitidine] Anaphylaxis - Ativan [Lorazepam] Other: See Comments hallucination - Bee Sting Anaphylaxis - Beef Containing Pro* Rash - Berino Other: See Comments Feels like an asthma attack. - Eggs [Egg] Rash, Vomiting - Ekg Leads [Adhesive] Rash Localized,only under the leads - Environmental [Othe* Other: See Comments Nasal congestion, brings on an asthma attack. - Influenza Virus Vac* Shortness of Breath - Lisinopril Cough - Milk Rash, Vomiting - Mometasone Anaphylaxis Per Dr. Salas she tolerates formoterol (on Breo at home) but is allergic to mometasone. Okayed by him to update. - Surgical Tape [Othe* Rash, Swelling Oral rash, swelling of eyes, asthma attacks; per pateint report. - Xolair [Omalizumab] Shortness of Breath REVIEW OF SYSTEMS General: No weight loss, malaise or fevers. Neuro: No history of TIA's, stroke, REFERRAL MANAGER tumor, impaired sensorium, hemiplegia, paraplegia or quadriplegia. No neurological symptoms or problems. Respiratory: Asthma, THONY not on CPAP, denies SOB now Cardiovascular: Hypertension requiring meds, no chest pain on exertion,occasional chest pain not related to exercise,normal stress test prior,no cath GI: GERD, on pPI,intermittent diarrhea and constipation : No history of UTI in past 6 weeks. No history of renal failure. Not currently on or requiring dialysis. No history of symptoms or problems. Endocrine: No history of diabetes. Has not taken steroids within the past 30 days. No history of endocrinological symptoms or problems., . Hematology: No history of bleeding or clotting disorder. No history of hematological symptoms or problems. Oncology: No history of CA metastasis, chemo within 30 days, or radiotherapy within 90 days. No history of oncological symptoms or problems. Psych: No history of psychiatric symptoms or problems. PHYSICAL EXAM VITALS: BP 137/79 Pulse 85 Temp (Src) 97.6 (Oral) Ht 5' 4 (1.63m) Wt 209 lb 8 oz (95.0kg) SpO2 95% LMP 08/07/2013 BMI 35.94 kg/(m2). General: Alert and oriented Skin: Normal color, no rash, no lesions. HEENT: EOM, pupils equal, round and reactive. Cardiovascular: Normal S1 AND S2, no rubs, murmurs or gallops. No JVD. Pulse regular. Lungs: Normal breath sounds, no wheezes or crackles. Abdomen: Soft, non-tender, no rigidity. Extremities: No deformity, no edema or tenderness, no joint swelling or clubbing. Neurological: Normal cognition and motor skills. Pulses: Carotid and radial pulses normal +2. ASSESSMENT Ms. Joshi is a 62 year old female referred to me for preoperative evaluation. Patient has the following medical comorbidities which might affect the perioperative course: - Chronic Asthma which is moderate and persistent. - Hypertension, well controlled. - Patient with sleep apnea and uses allergic to mask,not using CPAP. -Chronic chest pain,evaluated by cards,not cardiac related as her sterss test is normal per caridology -Chronic allergies, usually she gets steroids and benadryl prior to surgery - currnelty on Cyclosporine -CKD III,stable cr Patient's RCRI (Revised Cardiac Risk Index: CAD/CHF/Stroke or TIA/SCr>2/DM on Insulin/High Risk Surgery) score is 0 and is at low risk for major adverse cardiac events in the perioperative period. Diagnostic tests reviewed for today's visit: PENDING PLAN/RECOMMENDATIONS CARDIAC: Patient is at optimal cardiac condition for scheduled surgery / procedure. PULMONARY: Patient is at optimal Pulmonary status for scheduled surgery / procedure. RENAL: - Suggest following in the postoperative period due to patient's pre-existing renal disease: Avoid nephrotoxic medications Dose medications on estimated serum creatinine clearance Monitor fluid balance closely and avoid hypotension. Avoid dehydration / volume depletion Monitor serum creatinine VASCULAR/ANTICOAGULATION: VTE prophylaxis as deemed appropriate by the surgical service. Allergy: per own clerical investigator, Recommends 60mg IV methylpred and 50mg IV benadryl prior to surgery. Continue antihistamines, cyclosporine, Cromolyn/nebs uninterrupted in the perioperative period. Please order epiPEN as PRN. - Pt to bring her own Xopenex as nonformulary - Consider allergy consult if assistance required Patient is optimally prepared for surgery pending labs Patient Instructions: As per patient instructions section. General Preoperative/Medication/Fasting Instructions I have discussed the above recommendations with the patient in detail, in sonia and lay terms, and provided a written summary of instructions as needed. We have discussed that no surgery is without risk, but that the goal of preoperative assessment is to optimize that risk, and that was clearly understood by the patient. I have given ample opportunity for the patient to ask questions, and answered all questions to their stated satisfaction. SIGNATURE: Katia Evangelista MD PATIENT NAME: Ralph Joshi DATE: January 19, 2018 TIME: 12:47 PM Labs reviewed and within acceptable limit for surgery Patient is medically optimized for the planned surgery Katia Evangelista MD, FACP Staff, Dept of Hospital Medicine January 20, 2018 8:57 AM Pager:[phone] Katia Evangelista MD 01/19/2018 1:20 PM Signed [facility] Patient Instructions for Surgery FOOD INSTRUCTIONS: NO solid food or non-clear liquids for 8 hours prior to the arrival time for your surgery. Unless you are instructed otherwise, you are allowed to drink up to 12 ounces of clear liquids (e.g. water, black tea/coffee, fruit juice without pulp, Abigail Basia, etc.) up until 2 hours prior to the arrival time for surgery. MEDICATION INSTRUCTIONS: Prior to Surgery: Do not take the following medications for 7 days prior to surgery: - any NSAID's (e.g. Motrin, Aleve, Arthrotec, Naproxen,etc) - any herbal preparations - Aspirin or aspirin containing products - Plavix Do not take any Vitamin E / multivitamins for 10-14 days before surgery You are allowed to take Tylenol if needed until the day of surgery. MEDICATION INSTRUCTIONS: Day/Morning of Surgery: The following medications should be taken with sips of water: Nebulizers,,InhalersAmoxcillin,cyclosporine,cardura,prevacid,lryica,Zafriculast Tylenol, if needed for pain, can be taken on morning of surgery. Use your inhalers as needed / prescribed on day of surgery. Bring your inhaler with you to the hospital. If you have any questions or concerns regarding today's visit please do not hesitate to contact the [facility] at [phone] or [phone], ext [phone]. Signature: Katia Evangelista MD Date: January 19, 2018 Referring Provider: IVETTE MURPHY [[id number]] Allergies As of Date: 01/19/2018 Noted Allergy Reaction AVOCADO 09/10/2014 10 - Anaphylaxis BANANA 09/10/2014 10 - Anaphylaxis CARBINOXAMINE 09/17/2012 10 - Anaphylaxis YOSELIN SEED 08/28/2013 10 - Anaphylaxis CIPROFLOXACIN 04/11/2014 10 - Anaphylaxis CODEINE 01/12/2012 10 - Anaphylaxis CONTRAST DYE 05/17/2013 10 - Anaphylaxis Comments: To MRI and CT FISH 09/07/2014 10 - Anaphylaxis HYCODAN (HYDROCODONE-HOMATROPINE) 09/08/2011 10 - Anaphylaxis Comments: Face and throat swelling LATEX 01/21/2014 10 - Anaphylaxis IMTIAZ-SYNEPHRINE (PHENYLEPHRINE HCL)09/04/2014 10 - Anaphylaxis Comments: 10% eye drop NICKEL 01/07/2014 2 - Rash 4 - Hives 10 - Anaphylaxis NSAIDS (NON-STEROIDAL ANTI-INFLAM*08/16/2010 14 - Other: See Comments Comments: Kidney function drops; reversible kidney damage. OXYCODONE 08/28/2013 10 - Anaphylaxis PERIACTIN (CYPROHEPTADINE) 09/17/2012 10 - Anaphylaxis PNEUMOCOCCAL VACCINE 10/31/2014 10 - Anaphylaxis SHELLFISH 09/07/2014 10 - Anaphylaxis ZANTAC (RANITIDINE) 09/17/2012 10 - Anaphylaxis ATIVAN (LORAZEPAM) 08/28/2013 14 - Other: See Comments Comments: hallucination BEE STING 10/31/2017 10 - Anaphylaxis BEEF CONTAINING PRODUCTS 09/10/2014 2 - Rash CORN 05/03/2011 14 - Other: See Comments Comments: Feels like an asthma attack. EGGS (EGG) 03/08/2011 2 - Rash 11 - Vomiting EKG LEADS (ADHESIVE) 10/22/2012 2 - Rash Comments: Localized,only under the leads environmental [Other] 06/26/2007 14 - Other: See Comments Comments: Nasal congestion, brings on an asthma attack. INFLUENZA VIRUS VACCINES 10/22/2012 12 - Shortness of Breath LISINOPRIL 04/20/2004 3 - Cough MILK 03/08/2011 2 - Rash 11 - Vomiting MOMETASONE 04/05/2017 10 - Anaphylaxis Comments: Per Dr. Salas she tolerates formoterol (on Breo at home) but is allergic to mometasone. Okayed by him to update. surgical tape [Other] 11/10/2009 2 - Rash 7 - Swelling Comments: Oral rash, swelling of eyes, asthma attacks; per pateint report. XOLAIR (OMALIZUMAB) 04/19/2012 12 - Shortness of Breath Date Reviewed: 01/19/2018 Reviewed by: Carlos A Painting (Srna) - Fully Assessed Primary Visit Diagnosis:Idiopathic anaphylaxis, subsequent encounter [T78.2XXD] Other Visit Diagnoses:Pre-operative examination [Z01.818] Retained orthopedic hardware [Z96.9] THONY (obstructive sleep apnea) [G47.33] Essential hypertension [I10] Moderate persistent asthma without complication [J45.40] CKD (chronic kidney disease) stage 3, GFR 30-59 ml/min (FORMERLY [facility]) [N18.3] Prescriptions as of 01/19/2018 Sig: CROMOLYN 20 MG/2 ML SOLUTION * Use 2 mL via nebulizer four t* LEVALBUTEROL 1.25 MG/3 ML BRENDA* Use 1 Ampule via nebulizer ev* FLUTICASONE 50 MCG/ACTUATION * 1-2 sprays each side qd BUDESONIDE 0.5 MG/2 ML SUSPEN* Use 1 Ampule via nebulizer tw* AZELASTINE 0.15 % (205.5 MCG)* Use 1 Wilberforce in each nostril t* FLUTICASONE 200 MCG-VILANTERO* Inhale 1 Inhalation as instru* OSELTAMIVIR 75 MG CAPSULE Take 1 capsule by mouth twice* ACETAMINOPHEN 500 MG TABLET Take 500 mg by mouth every 8 * NITROGLYCERIN 0.4 MG SUBLINGU* DISSOLVE 1 TABLET UNDER THE T* DOXAZOSIN 4 MG TABLET Take 1 tablet by mouth once d* AMLODIPINE 10 MG TABLET Take 1 tablet by mouth once d* EPINEPHRINE 0.3 MG/0.3 ML INJ* Inject 0.3 mL intramuscularly* DIPHENHYDRAMINE 25 MG TABLET Take 1 tablet by mouth every * PREGABALIN 150 MG CAPSULE Take 1 capsule by mouth twice* PREGABALIN 150 MG CAPSULE Take 1 capsule by mouth twice* ATORVASTATIN 20 MG TABLET One tab on MWF only SPIRONOLACTONE 50 MG TABLET Take 1 tablet by mouth twice * LANSOPRAZOLE 30 MG CAPSULE,DE* TAKE 1 CAPSULE TWICE A DAY BUMETANIDE 0.5 MG TABLET Take 1 tablet by mouth once d* ALBUTEROL SULFATE HFA 90 MCG/* Inhale 2 Puffs as instructed * CHOLESTYRAMINE (WITH SUGAR) 4* Take 1 scoop by mouth once da* CYANOCOBALAMIN (VIT B-12) 1,0* Take 1 tablet by mouth once d* ERGOCALCIFEROL (VITAMIN D2) 5* Take 1 capsule by mouth once * Patient taking differently: Take 50,000 Units by mouth on* TURMERIC ROOT EXTRACT ORAL Take 1 tablet by mouth twice * CRISABOROLE 2 % TOPICAL OINTM* Apply to the hands twice daily COMPOUNDED PRESCRIPTION Please provide patient with n* CETIRIZINE 10 MG TABLET Take 10 mg by mouth once mary ellen* PIMECROLIMUS 1 % TOPICAL CREAM Apply twice daily to the hands ONDANSETRON HCL 4 MG TABLET Take 1 tablet by mouth every * BENZONATATE 200 MG CAPSULE Take 200 mg by mouth three ti* LACTOBACILLUS RHAMNOSUS GG 10* Take 1 capsule by mouth twice* AMOXICILLIN 250 MG CAPSULE Take 250 mg by mouth once liam* ZAFIRLUKAST 20 MG TABLET Take 1 tablet by mouth twice * CYCLOSPORINE MODIFIED 50 MG C* Take 50 mg by mouth twice liam* ASCORBIC ACID (VITAMIN C) 500* Take 1 tablet by mouth once d* TRIAMCINOLONE ACETONIDE 0.1 %* Apply 1 application to affect* Medication notes this encounter BENZONATATE 200 MG CAPSULE >> Brenda Sampson 01/19/2018 12:39 PM >> BRENDA SAMPSON Jan 19, 2018 12:39 PM Problem List As Of Date 01/19/2018 Noted Resolved JOINT PAIN-ANKLE [M25.579] INVALID FOR*03/20/2014 Edema [R60.9] INVALID FOR*03/28/2016 Priority: I Adrenal nodule (HCC) [E27.9] INVALID FOR* More... Diarrhea [R19.7] INVALID FOR*10/15/2013 Excessive or frequent menstruation [N92.0] INVALID FOR*07/14/2011 Shortness of breath [R06.02] INVALID FOR*10/15/2013 Palpitations [R00.2] INVALID FOR*03/20/2014 Tachycardia, unspecified [R00.0] INVALID FOR*10/15/2013 More... Open wound site NOS [T14.8XXA] INVALID FOR*07/16/2011 Abdominal pain, right upper quadrant [R10.11] INVALID FOR*07/14/2011 More... Acute gastritis without mention of hemorrhage [*INVALID FOR*10/15/2013 Hematuria [599.7] INVALID FOR*07/14/2011 URGE INCONTINENCE [N39.41] INVALID FOR* FEMALE STRESS INCONTINENCE [N39.3] INVALID FOR* Scar, hypertrophic [L91.0] INVALID FOR*10/15/2013 Ovarian cyst [N83.209] INVALID FOR*07/06/2010 Cyst INVALID FOR*10/15/2013 Other specified pre-operative examination [Z01.*INVALID FOR*07/16/2011 Hirsutism [L68.0] INVALID FOR* Dysphagia [R13.10] INVALID FOR*03/20/2014 GERD (gastroesophageal reflux disease) [K21.9] INVALID FOR* Priority: D More... 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 Obesity (BMI 30.0-34.9) [E66.9] INVALID FOR* More... More... More... More... Idiopathic anaphylaxis [T78.2XXA] INVALID FOR* Priority: A More... Urticaria, idiopathic [L50.1] INVALID FOR*03/28/2016 More... Hyperlipidemia LDL goal <100 [E78.5] INVALID FOR* Impaired fasting glucose [R73.01] INVALID FOR* Recurrent chest pain [R07.9, G89.29] INVALID FOR*12/09/2014 Multinodular goiter [E04.2] INVALID FOR* More... CKD (chronic kidney disease) stage 3, GFR 30-59*INVALID FOR* Pain in joint, ankle and foot [M25.579] INVALID FOR*12/09/2014 More... More... Steroid-induced hyperglycemia [R73.9, T38.0X5A] INVALID FOR*03/28/2016 Priority: C Moderate persistent asthma without complication*INVALID FOR* Ulcerative colitis without complications (HCC) *INVALID FOR* Anaphylaxis [T78.2XXA] INVALID FOR*03/26/2015 More... Neck pain, bilateral [M54.2] INVALID FOR*03/28/2016 Essential hypertension with goal blood pressure*INVALID FOR*03/28/2016 Chronic nausea [R11.0] INVALID FOR* Lumbar radiculitis [M54.16] INVALID FOR*03/28/2016 Lumbar stenosis [M48.061] INVALID FOR*03/28/2016 Acquired spondylolisthesis [M43.10] INVALID FOR*03/28/2016 Cervical radiculitis [M54.12] INVALID FOR*03/28/2016 Cervical spondylosis with radiculopathy [M47.22]INVALID FOR*03/29/2017 Shoulder impingement [M75.40] INVALID FOR*03/28/2016 Anaphylaxis [T78.2XXA] INVALID FOR*03/28/2016 Tendonitis, tibialis [M76.829] INVALID FOR*05/09/2016 Lumbar stenosis [M48.061] INVALID FOR* Cervical radiculitis [M54.12] INVALID FOR*03/29/2017 Cervical herniated disc [M50.20] INVALID FOR*03/29/2017 Cervical stenosis of spine [M48.02] INVALID FOR* Cervical spondylosis with myelopathy [M47.12] INVALID FOR*03/29/2017 Cervical myelopathy (HCC) [G95.9] INVALID FOR*03/29/2017 Claustrophobia [F40.240] INVALID FOR* Ptosis of eyelid, bilateral [H02.403] INVALID FOR*03/29/2017 More... Lumbar spondylosis [M47.816] INVALID FOR* More... Preop testing [Z01.818] INVALID FOR* More... Anaphylaxis [T78.2XXA] INVALID FOR* Essential hypertension [I10] INVALID FOR* Peroneal tendinitis, left [M76.72] INVALID FOR* Retained orthopedic hardware [Z96.9] INVALID FOR* More... Peroneal tendonitis of left lower extremity [M7*INVALID FOR* More... Other instructions from your clinician: [facility] Patient Instructions for Surgery FOOD INSTRUCTIONS: NO solid food or non-clear liquids for 8 hours prior to the arrival time for your surgery. Unless you are instructed otherwise, you are allowed to drink up to 12 ounces of clear liquids (e.g. water, black tea/coffee, fruit juice without pulp, Abigail Basia, etc.) up until 2 hours prior to the arrival time for surgery. MEDICATION INSTRUCTIONS: Prior to Surgery: Do not take the following medications for 7 days prior to surgery: - any NSAID's (e.g. Motrin, Aleve, Arthrotec, Naproxen,etc) - any herbal preparations - Aspirin or aspirin containing products - Plavix Do not take any Vitamin E / multivitamins for 10-14 days before surgery You are allowed to take Tylenol if needed until the day of surgery. MEDICATION INSTRUCTIONS: Day/Morning of Surgery: The following medications should be taken with sips of water: Nebulizers,,InhalersAmoxcillin,cyclosporine,cardura,prevacid,lryica,Zafricu last Tylenol, if needed for pain, can be taken on morning of surgery. Use your inhalers as needed / prescribed on day of surgery. Bring your inhaler with you to the hospital. If you have any questions or concerns regarding today's visit please do not hesitate to contact the [facility] at [phone] or [phone], [phone]. Signature: Katia Evangelista MD Date: January 19, 2018 Medications Discontinued During This Encounter atenolol (TENORMIN) 25 mg tablet 30 t* 5 05/22/2017 01/19/2018 Route: ORAL Sig: Take 1 tablet by mouth once daily. Disc: Discontinued by Patient Encounter Status:Closed by KATIA EVANGELISTA MD on 01/19/18 PROGRESS Observed: 01/19/2018 Status: COMPLETED Source: [place] 12:34 PM [facility] REPOSITORY HNO ID: [id number] Author: Brenda Sampson Service: (none) Author Type: (none) Type: Progress Notes Filed: 01/19/2018 1:25 PM Note Text: Ralph Joshi is a 62 year old female here today for visit in [place] Referring Surgeon: Dr. Murphy Date of Surgery: 01/25/2018 Planned Surgery/Procedure: REMOVAL HARDWARE FOOT Allergies have been reviewed and verified. They include the following: Avocado; Banana; Carbinoxamine; Yoselin Seed; Ciprofloxacin; Codeine; Contrast Dye; Fish; Hycodan [Hydrocodone-Homatropine]; Latex; Imtiaz-Synephrine [Phenylephrine Hcl]; Nickel; Nsaids (Non-Steroidal Anti-Inflammatory Drug); Oxycodone; Periactin [Cyproheptadine]; Pneumococcal Vaccine; Shellfish; Zantac [Ranitidine]; Ativan [Lorazepam]; Bee Sting; Beef Containing Products; Berino; Eggs [Egg]; Ekg Leads [Adhesive]; Environmental [Other]; Influenza Virus Vaccines; Lisinopril; Milk; Mometasone; Surgical Tape [Other]; Xolair [Omalizumab] Social History Substance Use Topics - Smoking status: Never Smoker - Smokeless tobacco: Never Used - Alcohol use No Medications reviewed and updated: Yes Brenda Sampson PROTIME Collected: 01/19/2018 Status: F Source: [place] 12:03 PM [facility] REPOSITORY TYPE CODE TESTS RESULT OUT OF RANGE REFERENCE UNITS LAB PSEC 9.7-13.0 sec PT Sec 10.6 LAB INR 0.9-1.3 PT INR 1.0 Result Comment: Vitamin K Antagonist (VKA) Therapeutic Range: INR 2 to 3 (Target INR of 2.5) Note: For patients treated with VKA drugs, such as warfarin, the [place] [employer] 2012 Guideline recommends a therapeutic INR range of 2 to 3 (target INR of 2.5). This recommendation includes high-risk patients with antiphospholipid syndrome with previous arterial or venous thromboembolism, current-generation mechanical or bioprosthetic aortic heart valve replacement. Note: Patients with mechanical aortic valve replacement and additional risk factors for thromboembolic events (atrial fibrillation, previous thromboembolism, LV dysfunction, hypercoagulable conditions) or an older generation mechanical AVR (i.e., ball in-Cage) or any mechanical MVR should have a INR therapeutic range of 2.5 to 3.5 (target INR of 3). Meena GH, et al. Chest 2012, 141:7S-47S Chloe RA, et al. [facility] 2017, 70: 252-289 Performed By: #### PT, BMP, CBCDIF #### [facility] [address] [place] [id number] BASIC METABOLIC PANL Collected: 01/19/2018 Status: F Source: [place] 12:03 PM [facility] REPOSITORY TYPE CODE TESTS RESULT OUT OF REFERENCE UNITS RANGE LAB GLU 74-99 mg/dL High Glucose 105 Result Comment: The [place] [employer] (ADA) provides guidance for cutoff values for fasting glucose and random glucose. The ADA defines fasting as no caloric intake for at least 8 hours. Fas ting plasma glucose results between 100 to 125 mg/dL indicate increased risk for diabetes (prediabetes). Fasting plasma glucose results greater than or equal to 126 mg/dL meet the criteria for diagnosis of diabetes. In the absence of unequivocal hyperglycemia, results should be confirmed by repeat testing. In a patient with classic symptoms of hyperglycemia or hyperglycemic crisis, random plasma glucose results greater than or equal to 200 mg/dL meet the criteria for diagnosis of diabetes. Reference: Standards of Medical Care in Diabetes 2016, [place] [employer]. Diabetes Care. 2016.39(Suppl 1). LAB BUN 7-21 mg/dL BUN 21 LAB CRET 0.58-0.96 mg/dL Creatinine High 1.46 LAB NA 136-144 mmol/L Sodium 140 LAB K 3.7-5.1 mmol/L Potassium 4.4 LAB CL 97-105 mmol/L Chloride 103 LAB CO2 22-30 mmol/L CO2 23 LAB AGAP 9-18 mmol/L Anion Gap 14 LAB CA 8.5-10.2 mg/dL Calcium, Total 10.0 LAB GFRAA eGFR- Amer. 44 LAB GFRNAA . eGFR-All Other Races 36 Result Comment: eGFR (Estimated GFR) Units of measure: mL/min/1.73 meters squared eGFR is derived from the reexpressed MDRD Study equation using the following parameters: serum creatinine, age, gender and race. The creatinine assay has been calibrated to be traceable to IDMS. An eGFR <60 mL/min/1.73m2 for >3 months is consistent with chronic kidney disease. Refer to KDOQI guidelines for clinical interpretation. In patients with unstable renal function, e.g. those with acute kidney injury, the eGFR may not accurately reflect actual GFR. Performed By: #### PT, BMP, CBCDIF #### [facility] [address] [place] [id number] CBC AND DIFFERENTIAL Collected: 01/19/2018 Status: F Source: [place] 12:03 PM [facility] REPOSITORY TYPE CODE TESTS RESULT OUT OF REFERENCE UNITS RANGE LAB WBC 3.70-11.00 k/uL WBC 9.08 LAB RBC 3.90-5.20 m/uL RBC High 5.34 LAB HGB 11.5-15.5 g/dL Hemoglobin 15.4 LAB HCT 36.0-46.0 % High Hematocrit 47.4 LAB MCV 80.0-100.0 fL MCV 88.8 LAB MCH 26.0-34.0 pG MCH 28.8 LAB MCHC 30.5-36.0 g/dL MCHC 32.5 LAB RDWCV 11.5-15.0 % RDW-CV 13.5 LAB PLTCT 150-400 k/uL Platelet Count 251 LAB MPV 9.0-12.7 fL MPV 10.6 LAB ANEUT % Neut% 81.5 LAB AANEUT 1.45-7.50 k/uL Abs Neut 7.40 LAB ALYMP % Lymph% 9.7 LAB AALYMP 1.00-4.00 k/uL Low Abs Lymph 0.88 LAB AMONO % Potter% 6.8 LAB AAMONO <0.87 k/uL Abs Potter 0.62 LAB AEOS % Eosin% 1.1 LAB AAEOS <0.46 k/uL Abs Eosin 0.10 LAB ABASO % Baso% 0.9 LAB AABASO <0.11 k/uL Abs Baso 0.08 LAB AUNRBC 0 /100 WBC NRBCs 0.0 LAB ABNRBC <0.01 k/uL Absolute nRBC <0.01 LAB DTYP DTYPE Auto Diff Performed By: #### PT, BMP, CBCDIF #### [facility] [address] [place], [place] [address] HOSP Observed: 01/16/2018 Status: COMPLETED Source: [place] 12:00 AM [facility] [place] [facility] REPOSITORY Patient:Ralph Joshi MRN: <[id number]> Height:5' 4(1.626 m) Weight:203 lb (92.08 kg) Outpatient Medications as of 02/27/18: predniSONE (DELTASONE) 50 mg tab diphenhydrAMINE (BENADRYL) 50 mg capsule VITAMIN D 50,000 unit capsule enoxaparin (LOVENOX) 40 mg/0.4 mL syrg docusate sodium (COLACE) 100 mg capsule aspirin, enteric coated (ASPIRIN, ENTERIC COATED) 325 mg EC tablet cromolyn (INTAL) 20 mg/2 mL nebulizer solution levalbuterol (XOPENEX) 1.25 mg/3 mL nebulizer solution fluticasone (FLONASE) 50 mcg/actuation nasal spray budesonide (PULMICORT) 0.5 mg/2 mL nebulizer solution Azelastine 0.15 % (205.5 mcg) spry fluticasone-vilanterol (BREO ELLIPTA) 200-25 mcg/dose inhaler oseltamivir (TAMIFLU) 75 mg capsule acetaminophen (TYLENOL EXTRA STRENGTH) 500 mg tablet nitroglycerin sublingual (NITROQUICK) 0.4 mg SL tablet triamcinolone acetonide (KENALOG) 0.1 % cream doxazosin (CARDURA) 4 mg tablet amLODIPine (NORVASC) 10 mg tablet EPINEPHrine (EPIPEN) 0.3 mg/0.3 mL auto-injector diphenhydrAMINE (BENADRYL) 25 mg tablet pregabalin (LYRICA) 150 mg capsule pregabalin (LYRICA) 150 mg capsule atorvastatin (LIPITOR) 20 mg tablet spironolactone (ALDACTONE) 50 mg tablet lansoprazole (PREVACID) 30 mg capsule bumetanide (BUMEX) 0.5 mg tablet albuterol HFA (PROAIR HFA) 90 mcg/actuation inhaler cholestyramine-sucrose (QUESTRAN) 4 gram powder cyanocobalamin (VITAMIN B-12) 1,000 mcg tab TURMERIC ROOT EXTRACT ORAL crisaborole (EUCRISA) 2 % oint COMPOUNDED PRESCRIPTION cetirizine (ZYRTEC) 10 mg tablet pimecrolimus (ELIDEL) 1 % cream ondansetron (ZOFRAN) 4 mg tablet Benzonatate 200 mg capsule lactobacillus rhamnosus (CULTURELLE) 10 billion cell capsule zafirlukast (ACCOLATE) 20 mg tablet cycloSPORINE Modified 50 mg capsule ascorbic acid (VITAMIN C) 500 mg tablet Admission/Clinic Administered Medications as of 02/27/18: ropivacaine (PF) 0.2 % in NaCl 0.9% 1,000 mL Problem List: Adrenal nodule (HCC) [E27.9] Urge incontinence [N39.41] Female stress incontinence [N39.3] Hirsutism [L68.0] GERD (gastroesophageal reflux disease) [K21.9] THONY (obstructive sleep apnea) [G47.33] Obesity (BMI 30.0-34.9) [E66.9] Idiopathic anaphylaxis [T78.2XXA] Hyperlipidemia LDL goal <100 [E78.5] Impaired fasting glucose [R73.01] Multinodular goiter [E04.2] CKD (chronic kidney disease) stage 3, GFR 30-59 ml/min (FORMERLY [facility]) [N18.3] Moderate persistent asthma without complication [J45.40] Ulcerative colitis without complications ([facility]LY [facility]) [K51.90] Chronic nausea [R11.0] Lumbar stenosis [M48.061] Cervical stenosis of spine [M48.02] Claustrophobia [F40.240] Lumbar spondylosis [M47.816] Preop testing [Z01.818] Anaphylaxis [T78.2XXA] Essential hypertension [I10] Peroneal tendinitis, left [M76.72] Retained orthopedic hardware [Z96.9] Peroneal tendonitis of left lower extremity [M76.72] Allergies: Avocado Banana Carbinoxamine Yoselin Seed Ciprofloxacin Codeine Contrast Dye Fish Hycodan [Hydrocodone-Homatropine] Latex Imtiaz-Synephrine [Phenylephrine Hcl] Nickel Nsaids (Non-Steroidal Anti-Inflammatory Drug) Oxycodone Periactin [Cyproheptadine] Pneumococcal Vaccine Shellfish Zantac [Ranitidine] Ativan [Lorazepam] Bee Sting Beef Containing Products Berino Eggs [Egg] Ekg Leads [Adhesive] environmental [Other] Influenza Virus Vaccines Lisinopril Milk Mometasone surgical tape [Other] Xolair [Omalizumab] Date Verified: 02/23/18 Lab Values No results within the last 30 days for the following basenames: K,HCT Progress Notes (ORTH CAST MAIN): Nito [email or web address] 02/23/2018 10:40 AM Signed PT ASSESSMENT - CASTING ROOM Ralph presents for Application of boot. Applied pneumatic aircast walker to Left leg non-weight bearing Patient has been instructed in Care of boot.. Nito Dillonhhgregg Beeper: [id number] Progress Notes (ORTH FOOT ANKLE MAIN): Hermelinda Galo RN, RN 02/23/2018 10:13 AM Signed Under the direction of Dr. Murphy and supervision of Rosemary Stanley PA-C, Ralph Joshi is seen today 4 weeks post operative from Her: 1. ?Left foot removal of hardware 2. ?Left foot calcaneus osteotomy. 3. Left achilles tendon lengthening. 4. Left peroneal tenosynovectomy. 5. Left peroneus brevis tendon repair done on . cast removed and incision(s) examined. CDI. Sutures removed, steri strips and DSD re-applied. Into boot. She will remain NEB in boot but will work on ROM of the ankle 6-10 times daily. Ralph Joshi will continue to take ASA 325 mg daily and elevate above heart level. Return to clinic in 3 weeks to see me for x-ray 3 views NWB of left foot out of boot. ORTH CARE COORDINATION POST OPERATIVE NURSE VISIT Patient has been identified by name and date of : Yes Patient is accompanied by: Surgery: 1. ?Left foot removal of hardware 2. ?Left foot calcaneus osteotomy. 3. Left achilles tendon lengthening. 4. Left peroneal tenosynovectomy. 5. Left peroneus brevis tendon repair. Date of Surgery: January 25, 2018 Activity? NWB in boot with ROM of ankle Incision? Healing with steri strips in place Follow up Appointment? 4 weeks Patient aware of goals, to return to ADL's, Yes. Any barriers to achieving goal? No PAIN EVALUATION No data found. Medication Update: Yes: Date: February 23, 2018 JONATHAN Mackenzie, RN, RN 02/23/2018 10:13 AM Signed See nursing note. Hermelinda Galo RN CNOV Observed: 01/15/2018 Status: COMPLETED Source: [place] 1:30 PM [facility] REPOSITORY Office Visit (PULMWS) RALPH JOSHI ([id number]) 1955 F Date Time Provider Department 01/15/18 1:30 PM FANTA HUFF During your visit today, we recorded the following information about you: Pulse Respiration Blood pressure Weight 87/minute 14/minute 132/80 96.2 kg Height 1.626 m Fanta Huff MD 02/14/2018 5:26 PM Signed [facility], 10/09/17: ? INTERVAL HISTORY: The patient is here for follow up of asthma; the last Pulmonary Clinic visit was 10/09/17. Claims consistent compliance with prescribed maintenance Rx. Rescue bronchodilator more frequently with infections and weather, outdoor activities, environmental tobacco smoke exposure, nearby perfumes; with relief. No ED visit or hospitalization for management of asthma exacerbation. 2x per week nocturnal awakenings with asthma symptoms. Usual cough. Clear sputum, usually clear, occasionally yellow or green. No hemoptysis. No pleuritic chest pain. Variable wheezing. Exertional dyspnea, especially with being outside, weather, outdoor activities, environmental tobacco smoke exposure, nearby perfumes. ? Nasal allergic symptoms and latex sensititivity prevent use of CPAP mask. Sometimes I'm hoarse. Taste almost non-existent. No tremor, palpitations, or muscle cramping associated with bronchodilator inhalation. ? PMH: Updated with patient today. FAMH: Updated with patient today. SOCH: Updated with patient today. ? ROS: Reviewed with patient, confirmed as documented by Maria Rizo LPN. TO ? Immunization History Immunization History Administered Date(s) Administered Influenza Vaccine, Split-Non Spec 2006 02/20/2008 01/15/2009 01/19/2010 01/22/2011 03/15/2012 Pneumovax 06/27/2008 Deferred Date(s) Deferred Tdap (Age 7+) 06/19/2014 No further Influenza vaccination, I'm allergic to eggs. Allergies were verified and updated, and medications were reconciled with the patient at this visit. ? PHYSICAL EXAMINATION: BP 132/80 Pulse 87 Resp 14 Ht 5' 4 (1.63m) Wt 212 lb (96.2kg) SpO2 96% LMP 08/07/2013 BMI 36.37 kg/(m2). Gen: No acute distress. Cooperative with examination. Moderately obese. ENT: Nares clear. Oral hygeine good. Pharynx clear. Resp: No stridor, accessory respiratory muscle use. No crackles, wheezes. CV: Regular rythm. Heart tones normal. Radial pulses normal. Abd: Non distended. MSK: No kyphoscoliosis. Ext: Warm and well perfused. No cyanosis. Skin: No rash, eczema, urticaria. Neuro: Mental status normal. No tremor. ? DATA REVIEW: Exhaled nitric oxide (Martha), 01/15/18: 49 07/06/17: 34 ?04/07/17: ?37?(normal <?25). ? DATE: 01/15/18 04/07/17 11/01/16 04/30/15 08/27/14 FVC 2.67L, 81% 2.39L, 76% 2.65L, 80% 2.50L, 78% 2.59L, 77% FEV1 2.14L, 84% 1.96L, 80% 2.03, 79% 1.97L, 79% 2.05L, 78% FEV1/FVC 0.80 0.82 0.77 0.79 0.79 IMPRESSION and RECOMMENDATIONS: Asthma, severe persistent, symptomatically and by spirometry well controlled; elevated Martha consistent with known environmental sensitivities/allergies. 1. I reviewed the pathophysiology of asthma, NIH guidelines for evaluation and management, and mechanisms of action and side effects of medical therapy (ICS, bronchodilators) with the patient. 2. Continue current maintenance Rx: - Breo once daily, Budeosnide twice daily, Cromolyn 4 times daily, Singulair once daily. 4. Continue Xopenex via nebulizer or Albuterol HFA inhaler, 2 inhalations 10?15 minutes prior to activities associated with shortness of breath, and as needed for rescue relief of shortness of breath or wheezing, up to 4 times daily. 5. Avoid triggers as able. Continue to wear mask as needed when exposed to allergens. 6. As unable to use Influenza vaccination, Rx for Tamiflu 75 mg twice daily for 5 days given if needed for abrupt development of fever, cough, sore throat, myalgia, headache during flu season. 7. Re-assess in 6 months, sooner if needed. ? THONY. 1. Consistent use of CPAP with sleep is imperative. 2. Referral to [facility] for mask fitting. ? I addressed the questions of the patient, and she expressed understanding and acceptance of my answers. ? Fanta Huff MD, [facility] [address] [place] [address] P: [phone] F: [phone] [email or web address] Maria Rizo LPN 01/15/2018 1:16 PM Signed Intake information documented in the prior visit with Dann Knowles CRT today. Maria Rizo LPN 01/15/2018 1:30 PM Attested Addendum Attestation signed by Fanta Huff at 01/15/2018 1:38 PM Fanat Huff MD, [facility] [address] [place] [id number] P: [phone] F: [phone] [email or web address] ROS: General: Generally feels well. Appetite good. Intolerant to CPAP masks due to latex allergy. Eyes, Ears, nose, throat: denies post nasal drip. denies rhinorrhea. denies purulent nasal discharge. denies epistaxis. occasional hoarseness. Vision stable. Cardiac: denies angina, notes edema, denies orthopnea. GI: denies heartburn. notes dysphagia. notes diarrhea. Uro/CHOKE SETTER: denies dysuria. denies hesitancy. denies nocturia. Menses: post menopausal Musculoskeletal: notes joint pain. Neuro: denies headache, denies focal weakness. denies tremor. Skin: denies rash. Otherwise negative. Reviewed with patient, confirmed as documented by Maria Rizo LPN. TO Referring Provider: JOVANNA SPENCE [[id number]] Allergies As of Date: 01/15/2018 Noted Allergy Reaction AVOCADO 09/10/2014 10 - Anaphylaxis BANANA 09/10/2014 10 - Anaphylaxis CARBINOXAMINE 09/17/2012 10 - Anaphylaxis YOSELIN SEED 08/28/2013 10 - Anaphylaxis CIPROFLOXACIN 04/11/2014 10 - Anaphylaxis CODEINE 01/12/2012 10 - Anaphylaxis CONTRAST DYE 05/17/2013 10 - Anaphylaxis Comments: To MRI and CT FISH 09/07/2014 10 - Anaphylaxis HYCODAN (HYDROCODONE-HOMATROPINE) 09/08/2011 10 - Anaphylaxis Comments: Face and throat swelling LATEX 01/21/2014 10 - Anaphylaxis IMTIAZ-SYNEPHRINE (PHENYLEPHRINE HCL)09/04/2014 10 - Anaphylaxis Comments: 10% eye drop NICKEL 01/07/2014 2 - Rash 4 - Hives 10 - Anaphylaxis NSAIDS (NON-STEROIDAL ANTI-INFLAM*08/16/2010 14 - Other: See Comments Comments: Kidney function drops; reversible kidney damage. OXYCODONE 08/28/2013 10 - Anaphylaxis PERIACTIN (CYPROHEPTADINE) 09/17/2012 10 - Anaphylaxis PNEUMOCOCCAL VACCINE 10/31/2014 10 - Anaphylaxis SHELLFISH 09/07/2014 10 - Anaphylaxis ZANTAC (RANITIDINE) 09/17/2012 10 - Anaphylaxis ATIVAN (LORAZEPAM) 08/28/2013 14 - Other: See Comments Comments: hallucination BEE STING 10/31/2017 10 - Anaphylaxis BEEF CONTAINING PRODUCTS 09/10/2014 2 - Rash CORN 05/03/2011 14 - Other: See Comments Comments: Feels like an asthma attack. EGGS (EGG) 03/08/2011 2 - Rash 11 - Vomiting EKG LEADS (ADHESIVE) 10/22/2012 2 - Rash Comments: Localized,only under the leads environmental [Other] 06/26/2007 14 - Other: See Comments Comments: Nasal congestion, brings on an asthma attack. INFLUENZA VIRUS VACCINES 10/22/2012 12 - Shortness of Breath LISINOPRIL 04/20/2004 3 - Cough MILK 03/08/2011 2 - Rash 11 - Vomiting MOMETASONE 04/05/2017 10 - Anaphylaxis Comments: Per Dr. Salas she tolerates formoterol (on Breo at home) but is allergic to mometasone. Okayed by him to update. surgical tape [Other] 11/10/2009 2 - Rash 7 - Swelling Comments: Oral rash, swelling of eyes, asthma attacks; per pateint report. XOLAIR (OMALIZUMAB) 04/19/2012 12 - Shortness of Breath Date Reviewed: 01/15/2018 Reviewed by: Fanta Huff - Fully Assessed Reason for Visit: Established Patient [175] Cmt: 3 month follow up asthma Primary Visit Diagnosis:THONY (obstructive sleep apnea) [G47.33] Other Visit Diagnosis:Moderate persistent asthma without complication [J45.40] Order(s):cromolyn (INTAL) 20 mg/2 mL nebulizer solutionUse 2 mL via nebulizer four times daily.Disp: 240 mLRfl: 5 levalbuterol (XOPENEX) 1.25 mg/3 mL nebulizer solutionUse 1 Ampule via nebulizer every 4 hours as needed. Inhale over 5-15 minutesDisp: 300 AmpuleRfl: 3 fluticasone (FLONASE) 50 mcg/actuation nasal spray1- 2 sprays each side qdDisp: 3 BottleRfl: 3 budesonide (PULMICORT) 0.5 mg/2 mL nebulizer solutionUse 1 Ampule via nebulizer twice daily.Disp: 180 AmpuleRfl: 3 Azelastine 0.15 % (205.5 mcg) spryUse 1 Wilberforce in each nostril twice daily.Disp: 3 BottleRfl: 3 fluticasone-vilanterol (BREO ELLIPTA) 200-25 mcg/dose inhalerInhale 1 Inhalation as instructed once daily.Disp: 3 EachRfl: 3 oseltamivir (TAMIFLU) 75 mg capsuleTake 1 capsule by mouth twice daily.Disp: 10 capsuleRfl: 0 Prescriptions as of 01/15/2018 Sig: CROMOLYN 20 MG/2 ML SOLUTION * Use 2 mL via nebulizer four t* LEVALBUTEROL 1.25 MG/3 ML BRENDA* Use 1 Ampule via nebulizer ev* FLUTICASONE 50 MCG/ACTUATION * 1-2 sprays each side qd BUDESONIDE 0.5 MG/2 ML SUSPEN* Use 1 Ampule via nebulizer tw* AZELASTINE 0.15 % (205.5 MCG)* Use 1 Wilberforce in each nostril t* ACETAMINOPHEN 500 MG TABLET Take 500 mg by mouth every 8 * NITROGLYCERIN 0.4 MG SUBLINGU* DISSOLVE 1 TABLET UNDER THE T* TRIAMCINOLONE ACETONIDE 0.1 %* Apply 1 application to affect* DOXAZOSIN 4 MG TABLET Take 1 tablet by mouth once d* AMLODIPINE 10 MG TABLET Take 1 tablet by mouth once d* EPINEPHRINE 0.3 MG/0.3 ML INJ* Inject 0.3 mL intramuscularly* DIPHENHYDRAMINE 25 MG TABLET Take 1 tablet by mouth every * PREGABALIN 150 MG CAPSULE Take 1 capsule by mouth twice* PREGABALIN 150 MG CAPSULE Take 1 capsule by mouth twice* ATORVASTATIN 20 MG TABLET One tab on MWF only SPIRONOLACTONE 50 MG TABLET Take 1 tablet by mouth twice * LANSOPRAZOLE 30 MG CAPSULE,DE* TAKE 1 CAPSULE TWICE A DAY BUMETANIDE 0.5 MG TABLET Take 1 tablet by mouth once d* ALBUTEROL SULFATE HFA 90 MCG/* Inhale 2 Puffs as instructed * FLUTICASONE 200 MCG-VILANTERO* Inhale 1 Inhalation as instru* OSELTAMIVIR 75 MG CAPSULE Take 1 capsule by mouth twice* CHOLESTYRAMINE (WITH SUGAR) 4* Take 1 scoop by mouth once da* CYANOCOBALAMIN (VIT B-12) 1,0* Take 1 tablet by mouth once d* X ATENOLOL 25 MG TABLET Take 1 tablet by mouth once d* X ERGOCALCIFEROL (VITAMIN D2) 5* Take 1 capsule by mouth once * Patient taking differently: Take 50,000 Units by mouth on* TURMERIC ROOT EXTRACT ORAL Take 1 tablet by mouth twice * CRISABOROLE 2 % TOPICAL OINTM* Apply to the hands twice daily COMPOUNDED PRESCRIPTION Please provide patient with n* CETIRIZINE 10 MG TABLET Take 10 mg by mouth once mary ellen* PIMECROLIMUS 1 % TOPICAL CREAM Apply twice daily to the hands ONDANSETRON HCL 4 MG TABLET Take 1 tablet by mouth every * BENZONATATE 200 MG CAPSULE Take 200 mg by mouth three ti* LACTOBACILLUS RHAMNOSUS GG 10* Take 1 capsule by mouth twice* X AMOXICILLIN 250 MG CAPSULE Take 250 mg by mouth once liam* ZAFIRLUKAST 20 MG TABLET Take 1 tablet by mouth twice * CYCLOSPORINE MODIFIED 50 MG C* Take 50 mg by mouth twice liam* ASCORBIC ACID (VITAMIN C) 500* Take 1 tablet by mouth once d* Medication notes this encounter COMPOUNDED PRESCRIPTION >> Fanta Huff MD 01/15/2018 1:31 PM I'm allergic to the mask. Problem List As Of Date 01/15/2018 Noted Resolved JOINT PAIN-ANKLE [M25.579] INVALID FOR*03/20/2014 Edema [R60.9] INVALID FOR*03/28/2016 Priority: I Adrenal nodule (HCC) [E27.9] INVALID FOR* More... Diarrhea [R19.7] INVALID FOR*10/15/2013 Excessive or frequent menstruation [N92.0] INVALID FOR*07/14/2011 Shortness of breath [R06.02] INVALID FOR*10/15/2013 Palpitations [R00.2] INVALID FOR*03/20/2014 Tachycardia, unspecified [R00.0] INVALID FOR*10/15/2013 More... Open wound site NOS [T14.8XXA] INVALID FOR*07/16/2011 Abdominal pain, right upper quadrant [R10.11] INVALID FOR*07/14/2011 More... Acute gastritis without mention of hemorrhage [*INVALID FOR*10/15/2013 Hematuria [599.7] INVALID FOR*07/14/2011 URGE INCONTINENCE [N39.41] INVALID FOR* FEMALE STRESS INCONTINENCE [N39.3] INVALID FOR* Scar, hypertrophic [L91.0] INVALID FOR*10/15/2013 Ovarian cyst [N83.209] INVALID FOR*07/06/2010 Cyst INVALID FOR*10/15/2013 Other specified pre-operative examination [Z01.*INVALID FOR*07/16/2011 Hirsutism [L68.0] INVALID FOR* Dysphagia [R13.10] INVALID FOR*03/20/2014 GERD (gastroesophageal reflux disease) [K21.9] INVALID FOR* Priority: D More... 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 Obesity (BMI 30.0-34.9) [E66.9] INVALID FOR* More... More... More... More... Idiopathic anaphylaxis [T78.2XXA] INVALID FOR* Priority: A More... Urticaria, idiopathic [L50.1] INVALID FOR*03/28/2016 More... Hyperlipidemia LDL goal <100 [E78.5] INVALID FOR* Impaired fasting glucose [R73.01] INVALID FOR* Recurrent chest pain [R07.9, G89.29] INVALID FOR*12/09/2014 Multinodular goiter [E04.2] INVALID FOR* More... CKD (chronic kidney disease) stage 3, GFR 30-59*INVALID FOR* Pain in joint, ankle and foot [M25.579] INVALID FOR*12/09/2014 More... More... Steroid-induced hyperglycemia [R73.9, T38.0X5A] INVALID FOR*03/28/2016 Priority: C Moderate persistent asthma without complication*INVALID FOR* Ulcerative colitis without complications (HCC) *INVALID FOR* Anaphylaxis [T78.2XXA] INVALID FOR*03/26/2015 More... Neck pain, bilateral [M54.2] INVALID FOR*03/28/2016 Essential hypertension with goal blood pressure*INVALID FOR*03/28/2016 Chronic nausea [R11.0] INVALID FOR* Lumbar radiculitis [M54.16] INVALID FOR*03/28/2016 Lumbar stenosis [M48.061] INVALID FOR*03/28/2016 Acquired spondylolisthesis [M43.10] INVALID FOR*03/28/2016 Cervical radiculitis [M54.12] INVALID FOR*03/28/2016 Cervical spondylosis with radiculopathy [M47.22]INVALID FOR*03/29/2017 Shoulder impingement [M75.40] INVALID FOR*03/28/2016 Anaphylaxis [T78.2XXA] INVALID FOR*03/28/2016 Tendonitis, tibialis [M76.829] INVALID FOR*05/09/2016 Lumbar stenosis [M48.061] INVALID FOR* Cervical radiculitis [M54.12] INVALID FOR*03/29/2017 Cervical herniated disc [M50.20] INVALID FOR*03/29/2017 Cervical stenosis of spine [M48.02] INVALID FOR* Cervical spondylosis with myelopathy [M47.12] INVALID FOR*03/29/2017 Cervical myelopathy (HCC) [G95.9] INVALID FOR*03/29/2017 Claustrophobia [F40.240] INVALID FOR* Ptosis of eyelid, bilateral [H02.403] INVALID FOR*03/29/2017 More... Lumbar spondylosis [M47.816] INVALID FOR* More... Preop testing [Z01.818] INVALID FOR* More... Anaphylaxis [T78.2XXA] INVALID FOR* Essential hypertension [I10] INVALID FOR* Peroneal tendinitis, left [M76.72] INVALID FOR* Retained orthopedic hardware [Z96.9] INVALID FOR* More... Peroneal tendonitis of left lower extremity [M7*INVALID FOR* More... Visit Notes: >> Maria Rizo LPN MonJan 15, 2018 1:15 PM Status: Signed Intake information documented in the prior visit with Dann Knowles, CARE ANALYST today. >> Maria Rizo LPN MonJan 15, 2018 1:19 PM Status: Attested Addendum ROS: General: Generally feels well. Appetite good. Intolerant to CPAP masks due to latex allergy. Eyes, Ears, nose, throat: denies post nasal drip. denies rhinorrhea. denies purulent nasal discharge. denies epistaxis. occasional hoarseness. Vision stable. Cardiac: denies angina, notes edema, denies orthopnea. GI: denies heartburn. notes dysphagia. notes diarrhea. Uro/CHOKE SETTER: denies dysuria. denies hesitancy. denies nocturia. Menses: post menopausal Musculoskeletal: notes joint pain. Neuro: denies headache, denies focal weakness. denies tremor. Skin: denies rash. Otherwise negative. Reviewed with patient, confirmed as documented by Maria Rizo LPN. TO Prescriptions ordered this encounter Disp Refills Start End CROMOLYN 20 MG/2 ML SOLUTION FOR NEB* 240 * 5 01/15/2018 Class: Print RX Route: NEBULIZATION Sig: Use 2 mL via nebulizer four times daily. LEVALBUTEROL 1.25 MG/3 ML SOLUTION F* 300 * 3 01/15/2018 Route: NEBULIZATION Sig: Use 1 Ampule via nebulizer every 4 hours as needed. Inhale over 5-15 minutes FLUTICASONE 50 MCG/ACTUATION NASAL S* 3 Kavon* 3 01/15/2018 Si-2 sprays each side qd BUDESONIDE 0.5 MG/2 ML SUSPENSION FO* 180 * 3 01/15/2018 Route: NEBULIZATION Sig: Use 1 Ampule via nebulizer twice daily. AZELASTINE 0.15 % (205.5 MCG) NASAL * 3 Kavon* 3 01/15/2018 Route: EACH NOSTRIL Sig: Use 1 Wilberforce in each nostril twice daily. FLUTICASONE 200 MCG-VILANTEROL 25 MC* 3 Ea* 3 01/15/2018 Route: INHALATION Sig: Inhale 1 Inhalation as instructed once daily. OSELTAMIVIR 75 MG CAPSULE 10 c* 0 01/15/2018 Class: Print RX Route: ORAL Sig: Take 1 capsule by mouth twice daily. Medications Discontinued During This Encounter COMPOUNDED PRESCRIPTION 1 Ea* 0 10/09/2017 01/15/2018 Class: Print RX Sig: Please fit for CPAP mask. Patient with previous allergic/anaphylaxis reaction to mask. DME: [facility]. Disc: Other cromolyn (INTAL) 20 mg/2 mL nebulize* 01/15/2018 Class: Historical Med Route: NEBULIZATION -UNSPEC Sig: Use 20 mg via nebulizer three times daily. Disc: Reason for discontinue is not on file. fluticasone-vilanterol (BREO ELLIPTA* 1 Ea* 5 07/06/2017 01/15/2018 Route: INHALATION Sig: Inhale 1 Inhalation as instructed once daily. Patient taking differently: Inhale 2 Inhalation as instructed once daily. Disc: Dosage adjustment levalbuterol (XOPENEX) 1.25 mg/3 mL * 300 * 3 07/06/2017 01/15/2018 Route: NEBULIZATION -UNSPEC Sig: Use 1 Ampule via nebulizer every 4 hours as needed. Inhale over 5-15 minutes Disc: Reason for discontinue is not on file. COMPOUNDED PRESCRIPTION 1 Ea* 0 07/06/2017 01/15/2018 Class: Print RX Sig: Nocturnal oximetry on room air. DME: [facility] Disc: Course of therapy completed fluticasone (FLONASE) 50 mcg/actuati* 3 Kavon* 3 07/06/2017 01/15/2018 Si-2 sprays each side qd Disc: Reason for discontinue is not on file. budesonide (PULMICORT) 0.5 mg/2 mL n* 60 A* 6 07/06/2017 01/15/2018 Route: NEBULIZATION -UNSPEC Sig: Use 1 Ampule via nebulizer twice daily. Disc: Reason for discontinue is not on file. Azelastine 0.15 % (205.5 mcg) spry 3 Kavon* 3 07/06/2017 01/15/2018 Route: EACH NOSTRIL Sig: Use 1 Wilberforce in each nostril twice daily. Disc: Reason for discontinue is not on file. Encounter Status:Closed by FANTA HUFF MD on 02/14/18 PROGRESS Observed: 01/15/2018 Status: COMPLETED Source: [place] 12:36 PM [facility] [place] REPOSITORY HNO ID: [id number] Author: Fanta Huff Service: (none) Author Type: Physician Type: Progress Notes Filed: 02/14/2018 5:26 PM Note Text: [facility], 10/09/17: ? INTERVAL HISTORY: The patient is here for follow up of asthma; the last Pulmonary Clinic visit was 10/09/17. Claims consistent compliance with prescribed maintenance Rx. Rescue bronchodilator more frequently with infections and weather, outdoor activities, environmental tobacco smoke exposure, nearby perfumes; with relief. No ED visit or hospitalization for management of asthma exacerbation. 2x per week nocturnal awakenings with asthma symptoms. Usual cough. Clear sputum, usually clear, occasionally yellow or green. No hemoptysis. No pleuritic chest pain. Variable wheezing. Exertional dyspnea, especially with being outside, weather, outdoor activities, environmental tobacco smoke exposure, nearby perfumes. ? Nasal allergic symptoms and latex sensititivity prevent use of CPAP mask. Sometimes I'm hoarse. Taste almost non-existent. No tremor, palpitations, or muscle cramping associated with bronchodilator inhalation. ? PMH: Updated with patient today. FAMH: Updated with patient today. SOCH: Updated with patient today. ? ROS: Reviewed with patient, confirmed as documented by Maria Rizo LPN. TO ? Immunization History Immunization History Administered Date(s) Administered Influenza Vaccine, Split-Non Spec 2006 02/20/2008 01/15/2009 01/19/2010 01/22/2011 03/15/2012 Pneumovax 06/27/2008 Deferred Date(s) Deferred Tdap (Age 7+) 06/19/2014 No further Influenza vaccination, I'm allergic to eggs. Allergies were verified and updated, and medications were reconciled with the patient at this visit. ? PHYSICAL EXAMINATION: BP 132/80 Pulse 87 Resp 14 Ht 5' 4 (1.63m) Wt 212 lb (96.2kg) SpO2 96% LMP 08/07/2013 BMI 36.37 kg/(m2). Gen: No acute distress. Cooperative with examination. Moderately obese. ENT: Nares clear. Oral hygeine good. Pharynx clear. Resp: No stridor, accessory respiratory muscle use. No crackles, wheezes. CV: Regular rythm. Heart tones normal. Radial pulses normal. Abd: Non distended. MSK: No kyphoscoliosis. Ext: Warm and well perfused. No cyanosis. Skin: No rash, eczema, urticaria. Neuro: Mental status normal. No tremor. ? DATA REVIEW: Exhaled nitric oxide (Martha), 01/15/18: 49 07/06/17: 34 ?04/07/17: ?37?(normal <?25). ? DATE: 01/15/18 04/07/17 11/01/16 04/30/15 08/27/14 FVC 2.67L, 81% 2.39L, 76% 2.65L, 80% 2.50L, 78% 2.59L, 77% FEV1 2.14L, 84% 1.96L, 80% 2.03, 79% 1.97L, 79% 2.05L, 78% FEV1/FVC 0.80 0.82 0.77 0.79 0.79 IMPRESSION and RECOMMENDATIONS: Asthma, severe persistent, symptomatically and by spirometry well controlled; elevated Martha consistent with known environmental sensitivities/allergies. 1. I reviewed the pathophysiology of asthma, NIH guidelines for evaluation and management, and mechanisms of action and side effects of medical therapy (ICS, bronchodilators) with the patient. 2. Continue current maintenance Rx: - Breo once daily, Budeosnide twice daily, Cromolyn 4 times daily, Singulair once daily. 4. Continue Xopenex via nebulizer or Albuterol HFA inhaler, 2 inhalations 10?15 minutes prior to activities associated with shortness of breath, and as needed for rescue relief of shortness of breath or wheezing, up to 4 times daily. 5. Avoid triggers as able. Continue to wear mask as needed when exposed to allergens. 6. As unable to use Influenza vaccination, Rx for Tamiflu 75 mg twice daily for 5 days given if needed for abrupt development of fever, cough, sore throat, myalgia, headache during flu season. 7. Re-assess in 6 months, sooner if needed. ? THONY. 1. Consistent use of CPAP with sleep is imperative. 2. Referral to [facility] for mask fitting. ? I addressed the questions of the patient, and she expressed understanding and acceptance of my answers. ? Fanta Huff MD, [facility] [address] [address] P: [phone] F: [phone] [email or web address] PROGRESS Observed: 01/13/2018 Status: COMPLETED Source: [place] 2:07 PM [facility] [place] REPOSITORY HNO ID: [id number] Author: Ivette Murphy Service: (none) Author Type: Physician Type: Progress Notes Filed: 01/13/2018 2:17 PM Note Text: January 13, 2018 HPI: Ralph Joshi is following up for MR review. Pain Descriptors: Duration: months Severity: moderate Quality: deep ache Location: lateral ankle Context: worse with activity Modifying Factors: Improved with rest Supporting Subjective Information Below: Estimated body mass index is 35.19 kg/m? as calculated from the following: Height as of 12/28/17: 162.6 cm (5' 4). Weight as of 12/28/17: 93 kg (205 lb). Past Medical History PAST MEDICAL HISTORY Diagnosis Date - Abdominal pain, other specified site - ACNE NEC 01/21/2008 - Actinic Keratosis (Premalignant AK) 06/05/2011 - ACUTE GASTRITIS W/O HEMORRHAGE 04/26/2007 - Allergic rhinitis 04/23/2012 - Anaphylactic reaction ideopathic - Benign tumor of adrenal gland - Biliary dyskinesia 10/29/2009 - Cervical herniated disc 10/20/2016 - Cervical myelopathy (HCC) 10/25/2016 - Cervical radiculitis 10/20/2016 - Cervical spondylosis with radiculopathy 11/17/2015 - JAIN ANGIOMA///NEVUS, NON-NEOPLASTIC 05/28/2007 - CKD (chronic kidney disease) stage 3, GFR 30-59 ml/min (HCC) 04/29/2013 - Diaphragmatic hernia without mention of obstruction or gangrene 05/25/2011 - Diverticulosis of colon (without mention of hemorrhage) - Edema 07/07/2004 - Epigastric pain - GERD (gastroesophageal reflux disease) - HTN (hypertension) 2002 controlled on Diovan - Hyperlipidemia 10/15/2013 - IRON DEFIC ANEMIA NOS 04/26/2007 - Moderate persistent asthma without complication 02/18/2015 - Ovarian cyst Benign ovarian cyst, S/P laparoscopic LSO - Ptosis of eyelid, bilateral 12/23/2016 Added automatically from request for surgery [id number] - Shoulder impingement 11/17/2015 - Sleep apnea intollerant to CPAP because allergic to material on mask - Steroid-induced hyperglycemia 09/06/2014 - TACHYCARDIA NOS 01/09/2006 - Tarsal tunnel syndrome 12/23/2009 - Tear of lateral meniscus of knee 02/21/2014 - Ulcerative colitis, unspecified - UTERINE LEIOMYOMA NOS 12/23/2005 - VIRAL WARTS NOS 05/09/2006 - Vocal cord dysfunction Surgical History: PAST SURGICAL HISTORY Procedure Laterality Date - CHOLECYSTECTOMY HX - COLONOSCOP W/ OR W/O [facility] SPEC 09/06/2005 Colonoscopy - COLONOSCOP W/ OR W/O [facility] SPEC Colonoscopy - COLONOSCOP W/ OR W/O [facility] SPEC 05/28/2012 Colonoscopy repeat 5 years. - EGD 07/29/14 normal - EGD W/O OR W/BRUSH/WASH 09/06/2005 EGD - EGD W/O OR W/BRUSH/WASH 04/26/2007 EGD - EGD W/O OR W/BRUSH/WASH 05/25/2011 EGD - EGD W/O OR W/BRUSH/WASH 05/28/2012 EGD - L'SCOPE REM ADNEX W/PART/TOT OOPH/SALP 06/11/2009 Laparoscopic LSO for benign ovarian cyst - LAMINECTOMY,CERVICAL 10/2016 - LAP CHOLECYSTECT/CHOLANGIOGRAPHY 10/30/09 Normal IOC - ORTHOPEDICS SURGERY HX 12/2013 repaired Rt achilles tendon - PAST SURGICAL HISTORY OF 09/19 left foot surgery on heel and repaired torn tdndon - SIGMOIDOSCOPY FLEX DIAG 05/20/08 - TARSAL TUNNEL RELEASE 07/2010 Left foot Family History: FAMILY HISTORY Problem Relation Age of Onset - Colon Cancer Father dx age 60. Alive at 85. - Hypertension Father Alive at 85. - Cataract Father Alive at 85. - Thyroid Father Alive at 85. - Heart Father [place] at 87 - Diabetes Mother colon polyps. age 72. - Hypertension Mother age 72. - other (benign brainstem tumor) Mother Persistent vegetative state. age 72. - defects Sister infant - Glaucoma Maternal Grandmother - Stroke Maternal Grandfather - Cancer Paternal Grandmother cervical - Colon Cancer Son 38 colon and rectal cancer - Breast Cancer Sister Developed in late 20s. Alive at 52. - Osteoporosis Sister - other (colon polyps) Sister 3 sisters with colon polyps Medications: Current Outpatient Prescriptions: acetaminophen (TYLENOL EXTRA STRENGTH) 500 mg tablet Take 500 mg by mouth every 8 hours as needed. nitroglycerin sublingual (NITROQUICK) 0.4 mg SL tablet DISSOLVE 1 TABLET UNDER THE TONGUE NEEDED FOR CHEST PAIN. IF NO RELIEF, CALL 911 triamcinolone acetonide (KENALOG) 0.1 % cream Apply 1 application to affected area three times daily. Apply to affected area. Location: arms doxazosin (CARDURA) 4 mg tablet Take 1 tablet by mouth once daily. amLODIPine (NORVASC) 10 mg tablet Take 1 tablet by mouth once daily. COMPOUNDED PRESCRIPTION Please fit for CPAP mask. Patient with previous allergic/anaphylaxis reaction to mask. DME: [facility] [employer]. cromolyn (INTAL) 20 mg/2 mL nebulizer solution Use 20 mg via nebulizer three times daily. EPINEPHrine (EPIPEN) 0.3 mg/0.3 mL auto-injector Inject 0.3 mL intramuscularly as needed. Inject full content of the syringe. diphenhydrAMINE (BENADRYL) 25 mg tablet Take 1 tablet by mouth every 6 hours as needed for Itching/Rash. pregabalin (LYRICA) 150 mg capsule Take 1 capsule by mouth twice daily for 181 days. atorvastatin (LIPITOR) 20 mg tablet One tab on MWF only spironolactone (ALDACTONE) 50 mg tablet Take 1 tablet by mouth twice daily. lansoprazole (PREVACID) 30 mg capsule TAKE 1 CAPSULE TWICE A DAY bumetanide (BUMEX) 0.5 mg tablet Take 1 tablet by mouth once daily. albuterol HFA (PROAIR HFA) 90 mcg/actuation inhaler Inhale 2 Puffs as instructed every 6 hours as needed for Wheezing/Shortness of Breath. fluticasone-vilanterol (BREO ELLIPTA) 100-25 mcg/dose inhaler Inhale 1 Inhalation as instructed once daily. (Patient taking differently: Inhale 2 Inhalation as instructed once daily. ) levalbuterol (XOPENEX) 1.25 mg/3 mL nebulizer solution Use 1 Ampule via nebulizer every 4 hours as needed. Inhale over 5-15 minutes fluticasone (FLONASE) 50 mcg/actuation nasal spray 1-2 sprays each side qd budesonide (PULMICORT) 0.5 mg/2 mL nebulizer solution Use 1 Ampule via nebulizer twice daily. Azelastine 0.15 % (205.5 mcg) spry Use 1 Wilberforce in each nostril twice daily. COMPOUNDED PRESCRIPTION Nocturnal oximetry on room air. DME: [facility] cholestyramine-sucrose (QUESTRAN) 4 gram powder Take 1 scoop by mouth once daily. cyanocobalamin (VITAMIN B-12) 1,000 mcg tab Take 1 tablet by mouth once daily. atenolol (TENORMIN) 25 mg tablet Take 1 tablet by mouth once daily. ergocalciferol, vitamin D2, (VITAMIN D) 50,000 unit capsule Take 1 capsule by mouth once each week. (Patient taking differently: Take 50,000 Units by mouth once each week. Every Monday ) TURMERIC ROOT EXTRACT ORAL Take 1 tablet by mouth twice daily. crisaborole (EUCRISA) 2 % oint Apply to the hands twice daily COMPOUNDED PRESCRIPTION Please provide patient with nebulizer machine and supplies.Diagnosis: Severe Asthma. cetirizine (ZYRTEC) 10 mg tablet Take 10 mg by mouth once daily. pimecrolimus (ELIDEL) 1 % cream Apply twice daily to the hands ondansetron (ZOFRAN) 4 mg tablet Take 1 tablet by mouth every 8 hours as needed. Benzonatate 200 mg capsule Take 200 mg by mouth three times daily as needed for Cough. lactobacillus rhamnosus (CULTURELLE) 10 billion cell capsule Take 1 capsule by mouth twice daily. amoxicillin (POLYMOX, AMOXIL) 250 mg capsule Take 250 mg by mouth once daily. zafirlukast (ACCOLATE) 20 mg tablet Take 1 tablet by mouth twice daily. cycloSPORINE Modified 50 mg capsule Take 50 mg by mouth twice daily. ascorbic acid (VITAMIN C) 500 mg tablet Take 1 tablet by mouth once daily. pregabalin (LYRICA) 150 mg capsule Take 1 capsule by mouth twice daily for 90 days. No current facility-administered medications for this visit. Allergies: Avocado; Banana; Carbinoxamine; Yoselin Seed; Ciprofloxacin; Codeine; Contrast Dye; Fish; Hycodan [Hydrocodone-Homatropine]; Latex; Imtiaz-Synephrine [Phenylephrine Hcl]; Nickel; Nsaids (Non-Steroidal Anti-Inflammatory Drug); Oxycodone; Periactin [Cyproheptadine]; Pneumococcal Vaccine; Shellfish; Zantac [Ranitidine]; Ativan [Lorazepam]; Bee Sting; Beef Containing Products; Berino; Eggs [Egg]; Ekg Leads [Adhesive]; Environmental [Other]; Influenza Virus Vaccines; Lisinopril; Milk; Mometasone; Surgical Tape [Other]; Xolair [Omalizumab] Review Of Systems GENERAL:Negative for malaise, significant weight loss and fever HEENT:Negative for frequent or significant headaches, significant changes in vision or vision problems, significant ear problems or hearing loss, nasal discharge or nose bleeds and sore throat, difficulty swallowing, mouth lesions NECK:Negative for lumps, goiter, pain and significant neck swelling RESPIRATORY: Negative for cough, wheezing and shortness of breath CARDIOVASCULAR: Negative for chest pain, leg swelling and palpitations GASTROINTESTINAL: Negative for abdominal discomfort, blood in stools or black stools and change in bowel habits GENITOURINARY: Negative for dysuria, frequency and incontinence MUSCULOSKELETAL: Negative for joint pain or swelling, back pain, and muscle pain. NEUROLOGIC:Negative for focal numbness or weakness, headaches and dizziness. SKIN:Negative for lesions, rash, and itching. PSYCHIATRIC: Negative for sleep disturbance, mood disorder and recent psychosocial stressors. HEMATOLOGIC/LYMPHATIC/IMMUNOLOGIC:Negative for prolonged bleeding, bruising easily, and swollen nodes. ENDOCRINE: Negative for cold or heat intolerance, polyuria, polydipsia and goiter. Physical Exam: Basic physical examination reveals the patient to be in no acute distress. The patient is alert and oriented x 3 Mood and affect are appropriate. Head is atraumatic, normocephalic. Neck ROM grossly intact. Mucous membranes are moist. Eyes, ears, and nose are normal in appearance. Hearing is grossly intact. Breathing is unlabored with grossly normal chest motion. Limited Upper Extremity Exam: Shoulders with grossly intact ROM and strength, no obvious deformity. Elbows with grossly intact ROM and strength, no obvious deformity. Hand and wrist with grossly intact ROM and strength, no obvious deformity. Focused orthopaedic examination reveals the following: Skin intact without lesions. No change Varus heel TTP along peroneal tendons Imaging: MR with changes to Peroneus brevis and fluid surrounding it Small cyst in fibula near SPR attachment Assessment and Plan: Left varus hindfoot with peroneal tendon abnormality We reviewed the MRI I suspect her peroneal tendon pathology is related to the varus of her heel She would like to proceed with surgery. The patient has therefore been indicated for surgical intervention consisting of Left foot removal of hardware, revision calcaneal osteotomy, peroneal tendon debridement. I cautioned her that her screws may be difficult or even impossible to remove. If they are unable to be removed, she understands we will proceed with the peroneal tendon debridement alone and not perform the osteotomy of the calcaneus. We discussed the rationale for, risks of, and prolonged recovery associated with this surgery. The patient expressed understanding of all issues including risks of infection, nerve damage, wound dehiscence, nonunion, malunion, symptomatic hardware, overcorrection or undercorrection of deformity, incomplete relief of pain, inability to return to the patient's desired level of function, generalized dissatisfaction with the surgical procedure and outcome, deep vein thrombosis (DVT), pulmonary embolus, (PE), cardiac complications and . The patient understands that healing of bones and soft tissues will take approximately 3 months but full recovery will require 6-9 months. The patient also understands that it is critical to strictly elevate the operative leg for the first 3 weeks after surgery to control both swelling and pain. The patient was counseled that no weight will be allowed on the surgical leg for approximately 8-12 weeks or until the patient is instructed that it is safe to initiate weightbearing. The patient expressed full understanding of all these issues and would like to proceed with surgery. Return to clinic: postop X-Ray's at next visit: No PCP: Anisa Caldwell MD [address] [address] FELLOW / RESIDENT: No fellow or resident assisted in this office visit. I spent approximately 25 minutes in direct [id number] contact with this patient and more than 50% of the duration of this visit was spent performing direct [id number] counseling. Ivette Murphy MD HOSP Observed: 01/13/2018 Status: COMPLETED Source: [place] 12:00 AM [facility] REPOSITORY Patient:Ralph Jsohi MRN: <[id number]> Height:5' 4.016(1.626 m) Weight:209 lb 7 oz (95 kg) Outpatient Medications as of 01/25/18: cromolyn (INTAL) 20 mg/2 mL nebulizer solution levalbuterol (XOPENEX) 1.25 mg/3 mL nebulizer solution fluticasone (FLONASE) 50 mcg/actuation nasal spray budesonide (PULMICORT) 0.5 mg/2 mL nebulizer solution Azelastine 0.15 % (205.5 mcg) spry fluticasone-vilanterol (BREO ELLIPTA) 200-25 mcg/dose inhaler acetaminophen (TYLENOL EXTRA STRENGTH) 500 mg tablet doxazosin (CARDURA) 4 mg tablet amLODIPine (NORVASC) 10 mg tablet diphenhydrAMINE (BENADRYL) 25 mg tablet pregabalin (LYRICA) 150 mg capsule levalbuterol (XOPENEX) 1.25 mg/3 mL nebulizer solution fluticasone-vilanterol (BREO ELLIPTA) 200-25 mcg/dose inhaler oseltamivir (TAMIFLU) 75 mg capsule nitroglycerin sublingual (NITROQUICK) 0.4 mg SL tablet triamcinolone acetonide (KENALOG) 0.1 % cream doxazosin (CARDURA) 4 mg tablet amLODIPine (NORVASC) 10 mg tablet EPINEPHrine (EPIPEN) 0.3 mg/0.3 mL auto-injector pregabalin (LYRICA) 150 mg capsule pregabalin (LYRICA) 150 mg capsule atorvastatin (LIPITOR) 20 mg tablet spironolactone (ALDACTONE) 50 mg tablet lansoprazole (PREVACID) 30 mg capsule bumetanide (BUMEX) 0.5 mg tablet albuterol HFA (PROAIR HFA) 90 mcg/actuation inhaler cholestyramine-sucrose (QUESTRAN) 4 gram powder cyanocobalamin (VITAMIN B-12) 1,000 mcg tab ergocalciferol, vitamin D2, (VITAMIN D) 50,000 unit capsule TURMERIC ROOT EXTRACT ORAL crisaborole (EUCRISA) 2 % oint COMPOUNDED PRESCRIPTION cetirizine (ZYRTEC) 10 mg tablet pimecrolimus (ELIDEL) 1 % cream ondansetron (ZOFRAN) 4 mg tablet Benzonatate 200 mg capsule lactobacillus rhamnosus (CULTURELLE) 10 billion cell capsule amoxicillin (POLYMOX, AMOXIL) 250 mg capsule zafirlukast (ACCOLATE) 20 mg tablet cycloSPORINE Modified 50 mg capsule ascorbic acid (VITAMIN C) 500 mg tablet Admission/Clinic Administered Medications as of 01/25/18: lactated ringers infusion ceFAZolin iv piggyback 2 g in D5W (iso-osmotic) 100 mL (ANCEF) ropivacaine (PF) 0.2 % in NaCl 0.9% 1,000 mL Problem List: Adrenal nodule (HCC) [E27.9] Urge incontinence [N39.41] Female stress incontinence [N39.3] Hirsutism [L68.0] GERD (gastroesophageal reflux disease) [K21.9] THONY (obstructive sleep apnea) [G47.33] Obesity (BMI 30.0-34.9) [E66.9] Idiopathic anaphylaxis [T78.2XXA] Hyperlipidemia LDL goal <100 [E78.5] Impaired fasting glucose [R73.01] Multinodular goiter [E04.2] CKD (chronic kidney disease) stage 3, GFR 30-59 ml/min ([facility]) [N18.3] Moderate persistent asthma without complication [J45.40] Ulcerative colitis without complications ([facility]) [K51.90] Chronic nausea [R11.0] Lumbar stenosis [M48.061] Cervical stenosis of spine [M48.02] Claustrophobia [F40.240] Lumbar spondylosis [M47.816] Preop testing [Z01.818] Anaphylaxis [T78.2XXA] Essential hypertension [I10] Peroneal tendinitis, left [M76.72] Retained orthopedic hardware [Z96.9] Peroneal tendonitis of left lower extremity [M76.72] Allergies: Avocado Banana Carbinoxamine Yoselin Seed Ciprofloxacin Codeine Contrast Dye Fish Hycodan [Hydrocodone-Homatropine] Latex Imtiaz-Synephrine [Phenylephrine Hcl] Nickel Nsaids (Non-Steroidal Anti-Inflammatory Drug) Oxycodone Periactin [Cyproheptadine] Pneumococcal Vaccine Shellfish Zantac [Ranitidine] Ativan [Lorazepam] Bee Sting Beef Containing Products Berino Eggs [Egg] Ekg Leads [Adhesive] environmental [Other] Influenza Virus Vaccines Lisinopril Milk Mometasone surgical tape [Other] Xolair [Omalizumab] Date Verified: 01/25/18 Lab Values Lab Value Units Date High Low POTA* 4.4 mmol/L 01/19/2018 5.1 3.7 CASA* 47.4 % 01/19/2018 46.0 36.0 Progress Notes ([facility]IN [place]): Brenda Sampson 01/19/2018 1:25 PM Signed Ralph Joshi is a 62 year old female here today for visit in [place] Referring Surgeon: Dr. Murphy Date of Surgery: 01/25/2018 Planned Surgery/Procedure: REMOVAL HARDWARE FOOT Allergies have been reviewed and verified. They include the following: Avocado; Banana; Carbinoxamine; Yoselin Seed; Ciprofloxacin; Codeine; Contrast Dye; Fish; Hycodan [Hydrocodone-Homatropine]; Latex; Imtiaz-Synephrine [Phenylephrine Hcl]; Nickel; Nsaids (Non-Steroidal Anti-Inflammatory Drug); Oxycodone; Periactin [Cyproheptadine]; Pneumococcal Vaccine; Shellfish; Zantac [Ranitidine]; Ativan [Lorazepam]; Bee Sting; Beef Containing Products; Berino; Eggs [Egg]; Ekg Leads [Adhesive]; Environmental [Other]; Influenza Virus Vaccines; Lisinopril; Milk; Mometasone; Surgical Tape [Other]; Xolair [Omalizumab] Social History Substance Use Topics - Smoking status: Never Smoker - Smokeless tobacco: Never Used - Alcohol use No Medications reviewed and updated: Yes Brenda Evangelista MD 01/20/2018 8:58 AM Addendum HISTORY AND PHYSICAL EXAMINATION (IMPACT) SERVICE DATE: 01/19/2018 SERVICE TIME: 12:47 PM PRIMARY CARE PHYSICIAN: Anisa Caldwell MD CHIEF COMPLAINT/HISTORY OF PRESENT ILLNESS: Ms. Joshi is a 62 year old female referred to me for preoperative evaluation. My final recommendations will be communicated back to the requesting physician/surgeon by the way of the shared medical record. Referring Surgeon: Dr. Allen Date of Surgery: 01/25/18 Planned Surgery/Procedure: REMOVAL HARDWARE FOOT Indication for Planned Surgery / Procedure: Left foot and need removal of the hardware Refer to Assessment section for details of any comorbidities. Patient is Able to Perform the Following Physical Activity: Climb a flight of stairs or walk up a hill (5.50 METs) Patient denies any chest pain or undue shortness of breath with the above physical activity. Significant Anesthesia Considerations: took a while to get off the anesthesia the paralysing part. PAST MEDICAL/SURGICAL/FAMILY/SOCIAL HISTORY PAST MEDICAL HISTORY Diagnosis Date - Abdominal pain, other specified site - ACNE NEC 01/21/2008 - Actinic Keratosis (Premalignant AK) 06/05/2011 - ACUTE GASTRITIS W/O HEMORRHAGE 04/26/2007 - Allergic rhinitis 04/23/2012 - Anaphylactic reaction ideopathic - Benign tumor of adrenal gland - Biliary dyskinesia 10/29/2009 - Cervical herniated disc 10/20/2016 - Cervical myelopathy (HCC) 10/25/2016 - Cervical radiculitis 10/20/2016 - Cervical spondylosis with radiculopathy 11/17/2015 - JAIN ANGIOMA///NEVUS, NON-NEOPLASTIC 05/28/2007 - CKD (chronic kidney disease) stage 3, GFR 30-59 ml/min ([facility]) 04/29/2013 - Diaphragmatic hernia without mention of obstruction or gangrene 05/25/2011 - Diverticulosis of colon (without mention of hemorrhage) - Edema 07/07/2004 - Epigastric pain - GERD (gastroesophageal reflux disease) - HTN (hypertension) 2002 controlled on Diovan - Hyperlipidemia 10/15/2013 - IRON DEFIC ANEMIA NOS 04/26/2007 - Moderate persistent asthma without complication 02/18/2015 - Ovarian cyst Benign ovarian cyst, S/P laparoscopic LSO - Ptosis of eyelid, bilateral 12/23/2016 Added automatically from request for surgery [id number] - Shoulder impingement 11/17/2015 - Sleep apnea intollerant to CPAP because allergic to material on mask - Steroid-induced hyperglycemia 09/06/2014 - TACHYCARDIA NOS 01/09/2006 - Tarsal tunnel syndrome 12/23/2009 - Tear of lateral meniscus of knee 02/21/2014 - Ulcerative colitis, unspecified - UTERINE LEIOMYOMA NOS 12/23/2005 - VIRAL WARTS NOS 05/09/2006 - Vocal cord dysfunction PAST SURGICAL HISTORY Procedure Laterality Date - CHOLECYSTECTOMY HX - COLONOSCOP W/ OR W/O BRSH SPEC 09/06/2005 Colonoscopy - COLONOSCOP W/ OR W/O [facility]RS SPEC Colonoscopy - COLONOSCOP W/ OR W/O BRSH SPEC 05/28/2012 Colonoscopy repeat 5 years. - EGD 07/29/14 normal - EGD W/O OR W/BRUSH/WASH 09/06/2005 EGD - EGD W/O OR W/BRUSH/WASH 04/26/2007 EGD - EGD W/O OR W/BRUSH/WASH 05/25/2011 EGD - EGD W/O OR W/BRUSH/WASH 05/28/2012 EGD - L'SCOPE REM ADNEX W/PART/TOT OOPH/SALP 06/11/2009 Laparoscopic LSO for benign ovarian cyst - LAMINECTOMY,CERVICAL 10/2016 - LAP CHOLECYSTECT/CHOLANGIOGRAPHY 10/30/09 Normal IOC - ORTHOPEDICS SURGERY HX 12/2013 repaired Rt achilles tendon - PAST SURGICAL HISTORY OF 09/19 left foot surgery on heel and repaired torn tdndon - SIGMOIDOSCOPY FLEX DIAG 05/20/08 - TARSAL TUNNEL RELEASE 07/2010 Left foot FAMILY HISTORY Problem Relation Age of Onset - Colon Cancer Father dx age 60. Alive at 85. - Hypertension Father Alive at 85. - Cataract Father Alive at 85. - Thyroid Father Alive at 85. - Heart Father [place] at 87 - Diabetes Mother colon polyps. age 72. - Hypertension Mother age 72. - other (benign brainstem tumor) Mother Persistent vegetative state. age 72. - defects Sister infant - Glaucoma Maternal Grandmother - Stroke Maternal Grandfather - Cancer Paternal Grandmother cervical - Colon Cancer Son 38 colon and rectal cancer - Breast Cancer Sister Developed in late 20s. Alive at 52. 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 Disp: 240 mL Rfl: 5 levalbuterol (XOPENEX) 1.25 mg/3 mL nebulizer solution Use 1 Ampule via nebulizer every 4 hours as needed. Inhale over 5-15 minutes Disp: 300 Ampule Rfl: 3 fluticasone (FLONASE) 50 mcg/actuation nasal spray 1-2 sprays each side qd Disp: 3 Bottle Rfl: 3 budesonide (PULMICORT) 0.5 mg/2 mL nebulizer solution Use 1 Ampule via nebulizer twice daily. Disp: 180 Ampule Rfl: 3 Azelastine 0.15 % (205.5 mcg) spry Use 1 Wilberforce in each nostril twice daily. Disp: 3 Bottle Rfl: 3 fluticasone-vilanterol (BREO ELLIPTA) 200-25 mcg/dose inhaler Inhale 1 Inhalation as instructed once daily. Disp: 3 Each Rfl: 3 oseltamivir (TAMIFLU) 75 mg capsule Take 1 capsule by mouth twice daily. Disp: 10 capsule Rfl: 0 acetaminophen (TYLENOL EXTRA STRENGTH) 500 mg tablet Take 500 mg by mouth every 8 hours as needed. Disp: Rfl: nitroglycerin sublingual (NITROQUICK) 0.4 mg SL tablet DISSOLVE 1 TABLET UNDER THE TONGUE NEEDED FOR CHEST PAIN. IF NO RELIEF, CALL 911 Disp: 25 tablet Rfl: 3 doxazosin (CARDURA) 4 mg tablet Take 1 tablet by mouth once daily. Disp: 30 tablet Rfl: 11 amLODIPine (NORVASC) 10 mg tablet Take 1 tablet by mouth once daily. Disp: 30 tablet Rfl: 11 EPINEPHrine (EPIPEN) 0.3 mg/0.3 mL auto-injector Inject 0.3 mL intramuscularly as needed. Inject full content of the syringe. Disp: 2 Each Rfl: 2 diphenhydrAMINE (BENADRYL) 25 mg tablet Take 1 tablet by mouth every 6 hours as needed for Itching/Rash. Disp: 30 tablet Rfl: 0 pregabalin (LYRICA) 150 mg capsule Take 1 capsule by mouth twice daily for 181 days. Disp: 180 capsule Rfl: 1 pregabalin (LYRICA) 150 mg capsule Take 1 capsule by mouth twice daily for 90 days. Disp: 180 capsule Rfl: 1 atorvastatin (LIPITOR) 20 mg tablet One tab on MWF only Disp: Rfl: spironolactone (ALDACTONE) 50 mg tablet Take 1 tablet by mouth twice daily. Disp: 180 tablet Rfl: 3 lansoprazole (PREVACID) 30 mg capsule TAKE 1 CAPSULE TWICE A DAY Disp: 180 capsule Rfl: 3 bumetanide (BUMEX) 0.5 mg tablet Take 1 tablet by mouth once daily. Disp: 90 tablet Rfl: 3 albuterol HFA (PROAIR HFA) 90 mcg/actuation inhaler Inhale 2 Puffs as instructed every 6 hours as needed for Wheezing/Shortness of Breath. Disp: 1 Inhaler Rfl: 5 cholestyramine-sucrose (QUESTRAN) 4 gram powder Take 1 scoop by mouth once daily. Disp: 1134 g Rfl: 4 cyanocobalamin (VITAMIN B-12) 1,000 mcg tab Take 1 tablet by mouth once daily. Disp: Rfl: ergocalciferol, vitamin D2, (VITAMIN D) 50,000 unit capsule Take 1 capsule by mouth once each week. (Patient taking differently: Take 50,000 Units by mouth once each week. Every Monday ) Disp: 12 capsule Rfl: 4 TURMERIC ROOT EXTRACT ORAL Take 1 tablet by mouth twice daily. Disp: Rfl: crisaborole (EUCRISA) 2 % oint Apply to the hands twice daily Disp: 60 g Rfl: 3 COMPOUNDED PRESCRIPTION Please provide patient with nebulizer machine and supplies.Diagnosis: Severe Asthma. Disp: 1 Each Rfl: 0 cetirizine (ZYRTEC) 10 mg tablet Take 10 mg by mouth once daily. Disp: Rfl: pimecrolimus (ELIDEL) 1 % cream Apply twice daily to the hands Disp: 30 Tube Rfl: 3 ondansetron (ZOFRAN) 4 mg tablet Take 1 tablet by mouth every 8 hours as needed. Disp: 30 tablet Rfl: 3 Benzonatate 200 mg capsule Take 200 mg by mouth three times daily as needed for Cough. Disp: 30 capsule Rfl: 1 lactobacillus rhamnosus (CULTURELLE) 10 billion cell capsule Take 1 capsule by mouth twice daily. Disp: Rfl: amoxicillin (POLYMOX, AMOXIL) 250 mg capsule Take 250 mg by mouth once daily. Disp: Rfl: zafirlukast (ACCOLATE) 20 mg tablet Take 1 tablet by mouth twice daily. Disp: 60 tablet Rfl: 11 cycloSPORINE Modified 50 mg capsule Take 50 mg by mouth twice daily. Disp: Rfl: ascorbic acid (VITAMIN C) 500 mg tablet Take 1 tablet by mouth once daily. Disp: 90 tablet Rfl: 0 triamcinolone acetonide (KENALOG) 0.1 % cream Apply 1 application to affected area three times daily. Apply to affected area. Location: arms Disp: 30 g Rfl: 0 atenolol (TENORMIN) 25 mg tablet Take 1 tablet by mouth once daily. Disp: 30 tablet Rfl: 5 No current facility-administered medications for this visit. ALLERGIES Allergen Reactions - Avocado Anaphylaxis - Banana Anaphylaxis - Carbinoxamine Anaphylaxis - Yoselin Seed Anaphylaxis - Ciprofloxacin Anaphylaxis - Codeine Anaphylaxis - Contrast Dye Anaphylaxis To MRI and CT - Fish Anaphylaxis - Hycodan [Hydrocodon* Anaphylaxis Face and throat swelling - Latex Anaphylaxis - Imtiaz-Synephrine [Phe* Anaphylaxis 10% eye drop - Nickel Rash, Hives, Anaphylaxis - Nsaids (Non-Steroid* Other: See Comments Kidney function drops; reversible kidney damage. - Oxycodone Anaphylaxis - Periactin [Cyprohep* Anaphylaxis - Pneumococcal Vaccine Anaphylaxis - Shellfish Anaphylaxis - Zantac [Ranitidine] Anaphylaxis - Ativan [Lorazepam] Other: See Comments hallucination - Bee Sting Anaphylaxis - Beef Containing Pro* Rash - Berino Other: See Comments Feels like an asthma attack. - Eggs [Egg] Rash, Vomiting - Ekg Leads [Adhesive] Rash Localized,only under the leads - Environmental [Othe* Other: See Comments Nasal congestion, brings on an asthma attack. - Influenza Virus Vac* Shortness of Breath - Lisinopril Cough - Milk Rash, Vomiting - Mometasone Anaphylaxis Per Dr. Salas she tolerates formoterol (on Breo at home) but is allergic to mometasone. Okayed by him to update. - Surgical Tape [Othe* Rash, Swelling Oral rash, swelling of eyes, asthma attacks; per pateint report. - Xolair [Omalizumab] Shortness of Breath REVIEW OF SYSTEMS General: No weight loss, malaise or fevers. Neuro: No history of TIA's, stroke, REFERRAL MANAGER tumor, impaired sensorium, hemiplegia, paraplegia or quadriplegia. No neurological symptoms or problems. Respiratory: Asthma, THONY not on CPAP, denies SOB now Cardiovascular: Hypertension requiring meds, no chest pain on exertion,occasional chest pain not related to exercise,normal stress test prior,no cath GI: GERD, on pPI,intermittent diarrhea and constipation : No history of UTI in past 6 weeks. No history of renal failure. Not currently on or requiring dialysis. No history of symptoms or problems. Endocrine: No history of diabetes. Has not taken steroids within the past 30 days. No history of endocrinological symptoms or problems., . Hematology: No history of bleeding or clotting disorder. No history of hematological symptoms or problems. Oncology: No history of CA metastasis, chemo within 30 days, or radiotherapy within 90 days. No history of oncological symptoms or problems. Psych: No history of psychiatric symptoms or problems. PHYSICAL EXAM VITALS: BP 137/79 Pulse 85 Temp (Src) 97.6 (Oral) Ht 5' 4 (1.63m) Wt 209 lb 8 oz (95.0kg) SpO2 95% LMP 08/07/2013 BMI 35.94 kg/(m2). General: Alert and oriented Skin: Normal color, no rash, no lesions. HEENT: EOM, pupils equal, round and reactive. Cardiovascular: Normal S1 AND S2, no rubs, murmurs or gallops. No JVD. Pulse regular. Lungs: Normal breath sounds, no wheezes or crackles. Abdomen: Soft, non-tender, no rigidity. Extremities: No deformity, no edema or tenderness, no joint swelling or clubbing. Neurological: Normal cognition and motor skills. Pulses: Carotid and radial pulses normal +2. ASSESSMENT Ms. Joshi is a 62 year old female referred to me for preoperative evaluation. Patient has the following medical comorbidities which might affect the perioperative course: - Chronic Asthma which is moderate and persistent. - Hypertension, well controlled. - Patient with sleep apnea and uses allergic to mask,not using CPAP. -Chronic chest pain,evaluated by cards,not cardiac related as her sterss test is normal per caridology -Chronic allergies, usually she gets steroids and benadryl prior to surgery - currnelty on Cyclosporine -CKD III,stable cr Patient's RCRI (Revised Cardiac Risk Index: CAD/CHF/Stroke or TIA/SCr>2/DM on Insulin/High Risk Surgery) score is 0 and is at low risk for major adverse cardiac events in the perioperative period. Diagnostic tests reviewed for today's visit: PENDING PLAN/RECOMMENDATIONS CARDIAC: Patient is at optimal cardiac condition for scheduled surgery / procedure. PULMONARY: Patient is at optimal Pulmonary status for scheduled surgery / procedure. RENAL: - Suggest following in the postoperative period due to patient's pre-existing renal disease: Avoid nephrotoxic medications Dose medications on estimated serum creatinine clearance Monitor fluid balance closely and avoid hypotension. Avoid dehydration / volume depletion Monitor serum creatinine VASCULAR/ANTICOAGULATION: VTE prophylaxis as deemed appropriate by the surgical service. Allergy: per own clerical investigator, Recommends 60mg IV methylpred and 50mg IV benadryl prior to surgery. Continue antihistamines, cyclosporine, Cromolyn/nebs uninterrupted in the perioperative period. Please order epiPEN as PRN. - Pt to bring her own Xopenex as nonformulary - Consider allergy consult if assistance required Patient is optimally prepared for surgery pending labs Patient Instructions: As per patient instructions section. General Preoperative/Medication/Fasting Instructions I have discussed the above recommendations with the patient in detail, in sonia and lay terms, and provided a written summary of instructions as needed. We have discussed that no surgery is without risk, but that the goal of preoperative assessment is to optimize that risk, and that was clearly understood by the patient. I have given ample opportunity for the patient to ask questions, and answered all questions to their stated satisfaction. SIGNATURE: Katia Evangelista MD PATIENT NAME: Ralph Joshi DATE: January 19, 2018 TIME: 12:47 PM Labs reviewed and within acceptable limit for surgery Patient is medically optimized for the planned surgery Katia Evangelista MD, FACP Staff, Dept of Hospital Medicine January 20, 2018 8:57 AM Pager:[phone] Previous Version Katia Evangelista MD 01/19/2018 1:20 PM Signed [facility] Patient Instructions for Surgery FOOD INSTRUCTIONS: NO solid food or non-clear liquids for 8 hours prior to the arrival time for your surgery. Unless you are instructed otherwise, you are allowed to drink up to 12 ounces of clear liquids (e.g. water, black tea/coffee, fruit juice without pulp, Abigail Basia, etc.) up until 2 hours prior to the arrival time for surgery. MEDICATION INSTRUCTIONS: Prior to Surgery: Do not take the following medications for 7 days prior to surgery: - any NSAID's (e.g. Motrin, Aleve, Arthrotec, Naproxen,etc) - any herbal preparations - Aspirin or aspirin containing products - Plavix Do not take any Vitamin E / multivitamins for 10-14 days before surgery You are allowed to take Tylenol if needed until the day of surgery. MEDICATION INSTRUCTIONS: Day/Morning of Surgery: The following medications should be taken with sips of water: Nebulizers,,InhalersAmoxcillin,cyclosporine,cardura,prevacid,lryica,Zafriculast Tylenol, if needed for pain, can be taken on morning of surgery. Use your inhalers as needed / prescribed on day of surgery. Bring your inhaler with you to the hospital. If you have any questions or concerns regarding today's visit please do not hesitate to contact the [facility] at [phone] or [phone], ext [phone]. Signature: Katia Evangelista MD Date: January 19, 2018 Progress Notes ([facility]): MOO Dove 01/19/2018 3:15 PM Addendum ANESTHESIA PRE-OPERATIVE ASSESSMENT (PACE) SERVICE DATE: 01/19/2018 SERVICE TIME: 1402 ASSESSMENT AND PLAN: Ralph Joshi is a 62 year old female scheduled for Left foot removal of hardware, revision calcaneal osteotomy, peroneal tendon debridement. per Informed Consent in MAIN on 01/25/2018. PMH: 1) paralytic outlasting anesthetic for October 2016 cervical spine surgery. 2) anaphylactic allergy to phenylephrine. Per patient diagnosed with idiopathic anaphylaxis. 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 3) CP with activity. Has had for years per patient, takes nitro. Normal stress test in 2014. 4) HTN AND HPL, takes doxazosin, amlodipine, and atorvastatin. 5) asthma, takes intal nebulizer, levalbuterol nebulizer, pulmicort, and breo inhaler. 6) THONY, doesn't wear CPAP because she is allergic to the mask. Sleeps on her side. 7) cervical spondylosis s/p cervical surgery in 2017 [facility]: 4 FC: III METS: Do moderate work around the house such as vacuuming, sweeping floors, or carrying in groceries (3.50 METs) Patient WILL accept blood products. BLOOD WORK/PRODUCTS ORDERED: No blood products ordered HISTORY OF CHRONIC PAIN: No PAIN MANAGEMENT OPTIONS: Final pain management plan will be discussed on the day of surgery. ANESTHETIC OPTIONS: Final anesthesia management options will be discussed on day of surgery. PRE-OP PLAN ORDERED: Patient Instructed: ? No solid food or non-clear liquids after midnight. Clear liquids allowed until two hours before scheduled arrival. ? Patient instructed to take the following medications with a sip of water: nebulizers, inhalers, amoxicillin, cyclosporine, cardura, prevacid, lyrics, zafriculast Vital Signs: BP 139/79 Pulse 85 Ht 162.6 cm (5' 4.02) Wt 95 kg (209 lb 7 oz) LMP 08/07/2013 SpO2 95% BMI 35.93 kg/m? BMI 35.93 kg/(m2) Vital signs completed by: IMPACT Weight acquired: per HANDP. Height acquired: per HANDP Airway Exam: MOUTH OPENING/TMJ: Full jaw ROM MICROGNATHIA/OVERBITE: No MALLAMPATI SCORE is CLASS III UPPER LIP BITE TEST: Class II - Lower incisors can bite the upper lip below the amauri line DENTITION: Caps and/or crowns - upper incisors and Caps and/or crowns - lower incisors, front teeth THYROMENTAL DIST: WNL SHORT NECK: No NECK CIRCUMFERENCE >40 cm: Appears > than 40 CM NECK FLEX: Limited ROM NECK EXTENSION: Limited ROM AIRWAY HISTORY: History of head/neck surgery that distorted airway, including mouth, neck, or their mobility ARKS AIRWAY DETAIL: Date of ARKS: 10/25/2016 Airway Adjunct Oral Size: 4 Mask:Yes. Mask Size: 4 Easy Mask:Yes Intubation: Asleep Airway: ETT Oral Size :7 mm #Trials: 1. Stylette: Yes. Cricoid pressure:No Intubating Devices: Glidescope. Teaching Purpose: No Grade: I Difficulty Comments: N/A DATA: EKG READING: Confirmed - 04/19/2017 ? Procedure Date : Apr 19 2017 07:55:11 Edit Date : May 03 2017 16:48:56 ? Diagnosis:NORMAL SINUS RHYTHM CANNOT EXCLUDE INFERIOR MYOCARDIAL INFARCTION , AGE UNDETERMINED ANTERIOR MYOCARDIAL INFARCTION , AGE UNDETERMINED ABNORMAL ECG ? Ventricular Rate : 98 ?BPM Atrial Rate : 98 ?BPM P-R Interval : 178 ?ms OTHER TESTS: Stress Test: Date: 12/15/2014, Results: CONCLUSIONS: - Exam indication: Chest Pain - There is mild concentric left ventricular hypertrophy. Left ventricular systolic ?function is normal. EF = 50 ? 5% (visual est.) Baseline left ventricular diastolic function is consistent with abnormal relaxation (stage 1). LVEF is low normal. - The right ventricle is normal in size. Right ventricular systolic function is normal. - Prior echocardiogram performed on 03/18/2013. LVEF is now low normal. No other significant change. ? Echo: Date: 02/24/2017, Results: CONCLUSIONS: - Exam indication: Shortness of Breath - The left ventricle is normal in size. Left ventricular systolic function is normal. EF = 55 ? 5% (visual est.) Normal left ventricular diastolic function. - The right ventricle is normal in size. Right ventricular systolic function is normal. - Exam was compared with the prior echocardiographic exam performed on 11/06/2015. ? Lab Value Units Date High Low HB 15.4 g/dL 01/19/2018 15.5 11.5 HCT 47.4 % 01/19/2018 46.0 36.0 WBC 9.08 k/uL 01/19/2018 11.00 3.70 PLT 251 k/uL 01/19/2018 400 150 NA 140 mmol/L 01/19/2018 144 136 K 4.4 mmol/L 01/19/2018 5.1 3.7 GLUC 105 mg/dL 01/19/2018 99 74 BUN 21 mg/dL 01/19/2018 21 7 CREAT 1.46 mg/dL 01/19/2018 0.96 0.58 PTSEC 10.6 sec 01/19/2018 13.0 9.7 INR 1.0 no uni* 01/19/2018 1.3 0.9 APTT No results within date range. ALT No results within date range. AST No results within date range. TBILI No results within date range. TSH 2.650 uU/mL 10/24/2017 5.500 0.400 Lab Value Units Date High Low HCGQT No results within date range. UHCG No results within date range. HCG, BODY* No results within date range. ABORHD No results within date range. ABSCREEN No results within date range. HBA1C: Hemoglobin A1C (%) Date Value 04/19/2017 5.9 04/12/2017 5.9 ) Patient accompanied by self Case Discussed with Dr. Garcia OPTIMIZATION STATUS: Patient optimized for OR, pending DOS review. SIGNATURE: MOO Dove PATIENT NAME: Ralph Joshi DATE: January 19, 2018 TIME: 2:56 PM PAGER/CONTACT #: Previous Version MRI CERVICAL SPINE WO Observed: 01/11/2018 Status: F Source: [place] IVCON 8:26 AM [facility] REPOS[facility] * * *Final Report* * * DATE OF EXAM: Jan 11 2018 8:26AM [id number] - MRI CERVICAL SPINE WO IVCON / PROCEDURE REASON: Spinal stenosis, cervical region * * * * Physician Interpretation * * * * EXAMINATION: MRI CERVICAL SPINE WO IVCON CLINICAL HISTORY: Prev sx 10/31 pain in neck radiating into both arms, n \EandE\ t both arms TECHNIQUE: Routine cervical spine MR protocol without gadolinium. MQ: [id number] COMPARISON: Cervical radiographs dated 12/28/2017; MRI cervical spine dated 11/16/2016 RESULT: Counting reference: Craniocervical junction. Anatomic Variants: None. As seen on the radiographs and MRI, patient is status post anterior cervical discectomy with placement of interbody grafts and anterior plate and screw fixation from C5 through C7. Minimal retropharyngeal/prevertebral edema has resolved. No evidence of discitis/osteomyelitis. No concerning collection. Straightening of normal cervical lordosis with preservation of vertebral body height and unremarkable marrow signal. Uncovertebral hypertrophy and facet arthrosis resulting in no more than mild residual narrowing of the neural foramina at the C5/6 and C6/7 levels with stable widely patent spinal canal at all levels. The spinal cord is of normal caliber, configuration, and signal intensity. Visualized intracranial contents are unremarkable. Mild sphenoid sinus mucosal thickening again observed. Impression: Postoperative changes of the cervical spine as detailed without acute or new cervical spine pathology. No significant canal or neural foraminal compromise at any visualized level. Anatomic Variant: None. Assume 7 cervical vertebrae with counting from the craniocervical junction. 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 Transcribe Date/Time: Jan 11 2018 8:41A Dictated by : ZIA PYLE MD This examination was interpreted and the report reviewed and electronically signed by: ZIA PYLE MD on Jan 11 2018 8:47AM EST [id number] Observed: 01/11/2018 Status: COMPLETED Source: [place] 8:05 AM [facility] HNO ID: [id number] Author: Saige (Rt) Thao Dang Service: (none) Author Type: Balance Recesser Type: Progress Notes Filed: 01/11/2018 8:06 AM Note Text: Radiology Service Progress Note PATIENT NAME: Ralph Joshi DATE OF SERVICE: January 11, 2018 TIME: 8:05 AM PATIENT IDENTITY VERIFICATION COMPLETED USING TWO (2) METHODS: Patient confirmed name verbally and Date of . PATIENT GENDER DATA: Female. status: : No status: NO. PATIENT RELEVANT IMPLANT DATA REVIEWED: Yes RADIOLOGY DEPARTMENT: MR; Exam(s) Completed: Spine: Cervical spine PERIPHERAL IV DATA: Not applicable SIGNED BY: RT Shekhar January 11, 2018 8:05 AM CNOV Observed: 01/10/2018 Status: COMPLETED Source: [place] 2:40 PM [facility] Office Visit (ORFTMN) RALPH JOSHI ([id number]) 1955 F Date Time Provider Department 01/10/18 2:40 PM IVETTE MURPHY ORFTMAsh[facility] During your visit today, we recorded the following information about you: Ivette Murphy MD 01/13/2018 2:17 PM Signed January 13, 2018 HPI: Ralph Mck[place] is following up for MR review. Pain Descriptors: Duration: months Severity: moderate Quality: deep ache Location: lateral ankle Context: worse with activity Modifying Factors: Improved with rest Supporting Subjective Information Below: Estimated body mass index is 35.19 kg/m? as calculated from the following: Height as of 12/28/17: 162.6 cm (5' 4). Weight as of 12/28/17: 93 kg (205 lb). Past Medical History PAST MEDICAL HISTORY Diagnosis Date - Abdominal pain, other specified site - ACNE NEC 01/21/2008 - Actinic Keratosis (Premalignant AK) 06/05/2011 - ACUTE GASTRITIS W/O HEMORRHAGE 04/26/2007 - Allergic rhinitis 04/23/2012 - Anaphylactic reaction ideopathic - Benign tumor of adrenal gland - Biliary dyskinesia 10/29/2009 - Cervical herniated disc 10/20/2016 - Cervical myelopathy (HCC) 10/25/2016 - Cervical radiculitis 10/20/2016 - Cervical spondylosis with radiculopathy 11/17/2015 - JAIN ANGIOMA///NEVUS, NON-NEOPLASTIC 05/28/2007 - CKD (chronic kidney disease) stage 3, GFR 30-59 ml/min (HCC) 04/29/2013 - Diaphragmatic hernia without mention of obstruction or gangrene 05/25/2011 - Diverticulosis of colon (without mention of hemorrhage) - Edema 07/07/2004 - Epigastric pain - GERD (gastroesophageal reflux disease) - HTN (hypertension) 2002 controlled on Diovan - Hyperlipidemia 10/15/2013 - IRON DEFIC ANEMIA NOS 04/26/2007 - Moderate persistent asthma without complication 02/18/2015 - Ovarian cyst Benign ovarian cyst, S/P laparoscopic LSO - Ptosis of eyelid, bilateral 12/23/2016 Added automatically from request for surgery [id number] - Shoulder impingement 11/17/2015 - Sleep apnea intollerant to CPAP because allergic to material on mask - Steroid-induced hyperglycemia 09/06/2014 - TACHYCARDIA NOS 01/09/2006 - Tarsal tunnel syndrome 12/23/2009 - Tear of lateral meniscus of knee 02/21/2014 - Ulcerative colitis, unspecified - UTERINE LEIOMYOMA NOS 12/23/2005 - VIRAL WARTS NOS 05/09/2006 - Vocal cord dysfunction Surgical History: PAST SURGICAL HISTORY Procedure Laterality Date - CHOLECYSTECTOMY HX - COLONOSCOP W/ OR W/O BRSH SPEC 09/06/2005 Colonoscopy - COLONOSCOP W/ OR W/O BRSH SPEC Colonoscopy - COLONOSCOP W/ OR W/O BRSH SPEC 05/28/2012 Colonoscopy repeat 5 years. - EGD 07/29/14 normal - EGD W/O OR W/BRUSH/WASH 09/06/2005 EGD - EGD W/O OR W/BRUSH/WASH 04/26/2007 EGD - EGD W/O OR W/BRUSH/WASH 05/25/2011 EGD - EGD W/O OR W/BRUSH/WASH 05/28/2012 EGD - L'SCOPE REM ADNEX W/PART/TOT OOPH/SALP 06/11/2009 Laparoscopic LSO for benign ovarian cyst - LAMINECTOMY,CERVICAL 10/2016 - LAP CHOLECYSTECT/CHOLANGIOGRAPHY 10/30/09 Normal IOC - ORTHOPEDICS SURGERY HX 12/2013 repaired Rt achilles tendon - PAST SURGICAL HISTORY OF 09/19 left foot surgery on heel and repaired torn tdndon - SIGMOIDOSCOPY FLEX DIAG 05/20/08 - TARSAL TUNNEL RELEASE 07/2010 Left foot Family History: FAMILY HISTORY Problem Relation Age of Onset - Colon Cancer Father dx age 60. Alive at 85. - Hypertension Father Alive at 85. - Cataract Father Alive at 85. - Thyroid Father Alive at 85. - Heart Father [place] at 87 - Diabetes Mother colon polyps. age 72. - Hypertension Mother age 72. - other (benign brainstem tumor) Mother Persistent vegetative state. age 72. - defects Sister - Glaucoma Maternal Grandmother - Stroke Maternal Grandfather - Cancer Paternal Grandmother cervical - Colon Cancer Son 38 colon and rectal cancer - Breast Cancer Sister Developed in late 20s. Alive at 52. - Osteoporosis Sister - other (colon polyps) Sister 3 sisters with colon polyps Medications: Current Outpatient Prescriptions: acetaminophen (TYLENOL EXTRA STRENGTH) 500 mg tablet Take 500 mg by mouth every 8 hours as needed. nitroglycerin sublingual (NITROQUICK) 0.4 mg SL tablet DISSOLVE 1 TABLET UNDER THE TONGUE NEEDED FOR CHEST PAIN. IF NO RELIEF, CALL 911 triamcinolone acetonide (KENALOG) 0.1 % cream Apply 1 application to affected area three times daily. Apply to affected area. Location: arms doxazosin (CARDURA) 4 mg tablet Take 1 tablet by mouth once daily. amLODIPine (NORVASC) 10 mg tablet Take 1 tablet by mouth once daily. COMPOUNDED PRESCRIPTION Please fit for CPAP mask. Patient with previous allergic/anaphylaxis reaction to mask. DME: [facility]. cromolyn (INTAL) 20 mg/2 mL nebulizer solution Use 20 mg via nebulizer three times daily. EPINEPHrine (EPIPEN) 0.3 mg/0.3 mL auto-injector Inject 0.3 mL intramuscularly as needed. Inject full content of the syringe. diphenhydrAMINE (BENADRYL) 25 mg tablet Take 1 tablet by mouth every 6 hours as needed for Itching/Rash. pregabalin (LYRICA) 150 mg capsule Take 1 capsule by mouth twice daily for 181 days. atorvastatin (LIPITOR) 20 mg tablet One tab on MWF only spironolactone (ALDACTONE) 50 mg tablet Take 1 tablet by mouth twice daily. lansoprazole (PREVACID) 30 mg capsule TAKE 1 CAPSULE TWICE A DAY bumetanide (BUMEX) 0.5 mg tablet Take 1 tablet by mouth once daily. albuterol HFA (PROAIR HFA) 90 mcg/actuation inhaler Inhale 2 Puffs as instructed every 6 hours as needed for Wheezing/Shortness of Breath. fluticasone-vilanterol (BREO ELLIPTA) 100-25 mcg/dose inhaler Inhale 1 Inhalation as instructed once daily. (Patient taking differently: Inhale 2 Inhalation as instructed once daily. ) levalbuterol (XOPENEX) 1.25 mg/3 mL nebulizer solution Use 1 Ampule via nebulizer every 4 hours as needed. Inhale over 5-15 minutes fluticasone (FLONASE) 50 mcg/actuation nasal spray 1-2 sprays each side qd budesonide (PULMICORT) 0.5 mg/2 mL nebulizer solution Use 1 Ampule via nebulizer twice daily. Azelastine 0.15 % (205.5 mcg) spry Use 1 Wilber[place] in each nostril twice daily. COMPOUNDED PRESCRIPTION Nocturnal oximetry on room air. DME: [facility] cholestyramine-sucrose (QUESTRAN) 4 gram powder Take 1 scoop by mouth once daily. cyanocobalamin (VITAMIN B-12) 1,000 mcg tab Take 1 tablet by mouth once daily. atenolol (TENORMIN) 25 mg tablet Take 1 tablet by mouth once daily. ergocalciferol, vitamin D2, (VITAMIN D) 50,000 unit capsule Take 1 capsule by mouth once each week. (Patient taking differently: Take 50,000 Units by mouth once each week. Every Monday ) TURMERIC ROOT EXTRACT ORAL Take 1 tablet by mouth twice daily. crisaborole (EUCRISA) 2 % oint Apply to the hands twice daily COMPOUNDED PRESCRIPTION Please provide patient with nebulizer machine and supplies.Diagnosis: Severe Asthma. cetirizine (ZYRTEC) 10 mg tablet Take 10 mg by mouth once daily. pimecrolimus (ELIDEL) 1 % cream Apply twice daily to the hands ondansetron (ZOFRAN) 4 mg tablet Take 1 tablet by mouth every 8 hours as needed. Benzonatate 200 mg capsule Take 200 mg by mouth three times daily as needed for Cough. lactobacillus rhamnosus (CULTURELLE) 10 billion cell capsule Take 1 capsule by mouth twice daily. amoxicillin (POLYMOX, AMOXIL) 250 mg capsule Take 250 mg by mouth once daily. zafirlukast (ACCOLATE) 20 mg tablet Take 1 tablet by mouth twice daily. cycloSPORINE Modified 50 mg capsule Take 50 mg by mouth twice daily. ascorbic acid (VITAMIN C) 500 mg tablet Take 1 tablet by mouth once daily. pregabalin (LYRICA) 150 mg capsule Take 1 capsule by mouth twice daily for 90 days. No current facility-administered medications for this visit. Allergies: Avocado; Banana; Carbinoxamine; Yoselin Seed; Ciprofloxacin; Codeine; Contrast Dye; Fish; Hycodan [Hydrocodone-Homatropine]; Latex; Imtiaz-Synephrine [Phenylephrine Hcl]; Nickel; Nsaids (Non-Steroidal Anti-Inflammatory Drug); Oxycodone; Periactin [Cyproheptadine]; Pneumococcal Vaccine; Shellfish; Zantac [Ranitidine]; Ativan [Lorazepam]; Bee Sting; Beef Containing Products; Berino; Eggs [Egg]; Ekg Leads [Adhesive]; Environmental [Other]; Influenza Virus Vaccines; Lisinopril; Milk; Mometasone; Surgical Tape [Other]; Xolair [Omalizumab] Review Of Systems GENERAL:Negative for malaise, significant weight loss and fever HEENT:Negative for frequent or significant headaches, significant changes in vision or vision problems, significant ear problems or hearing loss, nasal discharge or nose bleeds and sore throat, difficulty swallowing, mouth lesions NECK:Negative for lumps, goiter, pain and significant neck swelling RESPIRATORY: Negative for cough, wheezing and shortness of breath CARDIOVASCULAR: Negative for chest pain, leg swelling and palpitations GASTROINTESTINAL: Negative for abdominal discomfort, blood in stools or black stools and change in bowel habits GENITOURINARY: Negative for dysuria, frequency and incontinence MUSCULOSKELETAL: Negative for joint pain or swelling, back pain, and muscle pain. NEUROLOGIC:Negative for focal numbness or weakness, headaches and dizziness. SKIN:Negative for lesions, rash, and itching. PSYCHIATRIC: Negative for sleep disturbance, mood disorder and recent psychosocial stressors. HEMATOLOGIC/LYMPHATIC/IMMUNOLOGIC:Negative for prolonged bleeding, bruising easily, and swollen nodes. ENDOCRINE: Negative for cold or heat intolerance, polyuria, polydipsia and goiter. Physical Exam: Basic physical examination reveals the patient to be in no acute distress. The patient is alert and oriented x 3 Mood and affect are appropriate. Head is atraumatic, normocephalic. Neck ROM grossly intact. Mucous membranes are moist. Eyes, ears, and nose are normal in appearance. Hearing is grossly intact. Breathing is unlabored with grossly normal chest motion. Limited Upper Extremity Exam: Shoulders with grossly intact ROM and strength, no obvious deformity. Elbows with grossly intact ROM and strength, no obvious deformity. Hand and wrist with grossly intact ROM and strength, no obvious deformity. Focused orthopaedic examination reveals the following: Skin intact without lesions. No change Varus heel TTP along peroneal tendons Imaging: MR with changes to Peroneus brevis and fluid surrounding it Small cyst in fibula near SPR attachment Assessment and Plan: Left varus hindfoot with peroneal tendon abnormality We reviewed the MRI I suspect her peroneal tendon pathology is related to the varus of her heel She would like to proceed with surgery. The patient has therefore been indicated for surgical intervention consisting of Left foot removal of hardware, revision calcaneal osteotomy, peroneal tendon debridement. I cautioned her that her screws may be difficult or even impossible to remove. If they are unable to be removed, she understands we will proceed with the peroneal tendon debridement alone and not perform the osteotomy of the calcaneus. We discussed the rationale for, risks of, and prolonged recovery associated with this surgery. The patient expressed understanding of all issues including risks of infection, nerve damage, wound dehiscence, nonunion, malunion, symptomatic hardware, overcorrection or undercorrection of deformity, incomplete relief of pain, inability to return to the patient's desired level of function, generalized dissatisfaction with the surgical procedure and outcome, deep vein thrombosis (DVT), pulmonary embolus, (PE), cardiac complications and . The patient understands that healing of bones and soft tissues will take approximately 3 months but full recovery will require 6-9 months. The patient also understands that it is critical to strictly elevate the operative leg for the first 3 weeks after surgery to control both swelling and pain. The patient was counseled that no weight will be allowed on the surgical leg for approximately 8-12 weeks or until the patient is instructed that it is safe to initiate weightbearing. The patient expressed full understanding of all these issues and would like to proceed with surgery. Return to clinic: postop X-Ray's at next visit: No PCP: Anisa Caldwell MD [id number] [facility] [id number] FELLOW / RESIDENT: No fellow or resident assisted in this office visit. I spent approximately 25 minutes in direct [id number] contact with this patient and more than 50% of the duration of this visit was spent performing direct [id number] counseling. Ivette Murphy MD Referring Provider: JANE MEZA [[id number]] Allergies As of Date: 01/10/2018 Noted Allergy Reaction AVOCADO 09/10/2014 10 - Anaphylaxis BANANA 09/10/2014 10 - Anaphylaxis CARBINOXAMINE 09/17/2012 10 - Anaphylaxis YOSELIN SEED 08/28/2013 10 - Anaphylaxis CIPROFLOXACIN 04/11/2014 10 - Anaphylaxis CODEINE 01/12/2012 10 - Anaphylaxis CONTRAST DYE 05/17/2013 10 - Anaphylaxis Comments: To MRI and CT FISH 09/07/2014 10 - Anaphylaxis HYCODAN (HYDROCODONE-HOMATROPINE) 09/08/2011 10 - Anaphylaxis Comments: Face and throat swelling LATEX 01/21/2014 10 - Anaphylaxis IMTIAZ-SYNEPHRINE (PHENYLEPHRINE HCL)09/04/2014 10 - Anaphylaxis Comments: 10% eye drop NICKEL 01/07/2014 2 - Rash 4 - Hives 10 - Anaphylaxis NSAIDS (NON-STEROIDAL ANTI-INFLAM*08/16/2010 14 - Other: See Comments Comments: Kidney function drops; reversible kidney damage. OXYCODONE 08/28/2013 10 - Anaphylaxis PERIACTIN (CYPROHEPTADINE) 09/17/2012 10 - Anaphylaxis PNEUMOCOCCAL VACCINE 10/31/2014 10 - Anaphylaxis SHELLFISH 09/07/2014 10 - Anaphylaxis ZANTAC (RANITIDINE) 09/17/2012 10 - Anaphylaxis ATIVAN (LORAZEPAM) 08/28/2013 14 - Other: See Comments Comments: hallucination BEE STING 10/31/2017 10 - Anaphylaxis BEEF CONTAINING PRODUCTS 09/10/2014 2 - Rash CORN 05/03/2011 14 - Other: See Comments Comments: Feels like an asthma attack. EGGS (EGG) 03/08/2011 2 - Rash 11 - Vomiting EKG LEADS (ADHESIVE) 10/22/2012 2 - Rash Comments: Localized,only under the leads environmental [Other] 06/26/2007 14 - Other: See Comments Comments: Nasal congestion, brings on an asthma attack. INFLUENZA VIRUS VACCINES 10/22/2012 12 - Shortness of Breath LISINOPRIL 04/20/2004 3 - Cough MILK 03/08/2011 2 - Rash 11 - Vomiting MOMETASONE 04/05/2017 10 - Anaphylaxis Comments: Per Dr. Salas she tolerates formoterol (on Breo at home) but is allergic to mometasone. Okayed by him to update. surgical tape [Other] 11/10/2009 2 - Rash 7 - Swelling Comments: Oral rash, swelling of eyes, asthma attacks; per pateint report. XOLAIR (OMALIZUMAB) 04/19/2012 12 - Shortness of Breath Date Reviewed: 01/10/2018 Reviewed by: Rebecca Pinon Ma - Fully Assessed Reason for Visit: Follow Up [171] Cmt: left ankle Primary Visit Diagnosis:Chronic pain of left ankle [M25.572, G89.29] Order(s):KNEE WALKER [[id number]] Order #: [id number] BATH/SHOWER CHAIR [[id number]] Order #: [id number] PROTHROMBIN TIME/PT [SQPT] Order #: [id number] FUTURE BASIC METABOLIC PNL [SQBMP] Order #: [id number] FUTURE CBC + DIFF [SQCBCDIF] Order #: [id number] FUTURE CONSULT TO INT MED-IMPACT [[id number]] Order #: [id number]: 1 SURGICAL REQUEST - ELECTIVE [[id number]] Order #: [id number]: 1 Prescriptions as of 01/10/2018 Sig: ACETAMINOPHEN 500 MG TABLET Take 500 mg by mouth every 8 * NITROGLYCERIN 0.4 MG SUBLINGU* DISSOLVE 1 TABLET UNDER THE T* TRIAMCINOLONE ACETONIDE 0.1 %* Apply 1 application to affect* DOXAZOSIN 4 MG TABLET Take 1 tablet by mouth once d* AMLODIPINE 10 MG TABLET Take 1 tablet by mouth once d* COMPOUNDED PRESCRIPTION Please fit for CPAP mask. Pat* CROMOLYN 20 MG/2 ML SOLUTION * Use 20 mg via nebulizer three* EPINEPHRINE 0.3 MG/0.3 ML INJ* Inject 0.3 mL intramuscularly* DIPHENHYDRAMINE 25 MG TABLET Take 1 tablet by mouth every * PREGABALIN 150 MG CAPSULE Take 1 capsule by mouth twice* ATORVASTATIN 20 MG TABLET One tab on MWF only SPIRONOLACTONE 50 MG TABLET Take 1 tablet by mouth twice * LANSOPRAZOLE 30 MG CAPSULE,DE* TAKE 1 CAPSULE TWICE A DAY BUMETANIDE 0.5 MG TABLET Take 1 tablet by mouth once d* ALBUTEROL SULFATE HFA 90 MCG/* Inhale 2 Puffs as instructed * FLUTICASONE 100 MCG-VILANTERO* Inhale 1 Inhalation as instru* Patient taking differently: Inhale 2 Inhalation as instru* LEVALBUTEROL 1.25 MG/3 ML BRENDA* Use 1 Ampule via nebulizer ev* FLUTICASONE 50 MCG/ACTUATION * 1-2 sprays each side qd BUDESONIDE 0.5 MG/2 ML SUSPEN* Use 1 Ampule via nebulizer tw* AZELASTINE 0.15 % (205.5 MCG)* Use 1 Wilberforce in each nostril t* COMPOUNDED PRESCRIPTION Nocturnal oximetry on room ai* CHOLESTYRAMINE (WITH SUGAR) 4* Take 1 scoop by mouth once da* CYANOCOBALAMIN (VIT B-12) 1,0* Take 1 tablet by mouth once d* ATENOLOL 25 MG TABLET Take 1 tablet by mouth once d* ERGOCALCIFEROL (VITAMIN D2) 5* Take 1 capsule by mouth once * Patient taking differently: Take 50,000 Units by mouth on* TURMERIC ROOT EXTRACT ORAL Take 1 tablet by mouth twice * CRISABOROLE 2 % TOPICAL OINTM* Apply to the hands twice daily COMPOUNDED PRESCRIPTION Please provide patient with n* CETIRIZINE 10 MG TABLET Take 10 mg by mouth once mary ellen* PIMECROLIMUS 1 % TOPICAL CREAM Apply twice daily to the hands ONDANSETRON HCL 4 MG TABLET Take 1 tablet by mouth every * BENZONATATE 200 MG CAPSULE Take 200 mg by mouth three ti* LACTOBACILLUS RHAMNOSUS GG 10* Take 1 capsule by mouth twice* AMOXICILLIN 250 MG CAPSULE Take 250 mg by mouth once liam* ZAFIRLUKAST 20 MG TABLET Take 1 tablet by mouth twice * CYCLOSPORINE MODIFIED 50 MG C* Take 50 mg by mouth twice liam* ASCORBIC ACID (VITAMIN C) 500* Take 1 tablet by mouth once d* PREGABALIN 150 MG CAPSULE Take 1 capsule by mouth twice* Problem List As Of Date 01/10/2018 Noted Resolved JOINT PAIN-ANKLE [M25.579] INVALID FOR*03/20/2014 Edema [R60.9] INVALID FOR*03/28/2016 Priority: I Adrenal nodule (HCC) [E27.9] INVALID FOR* More... Diarrhea [R19.7] INVALID FOR*10/15/2013 Excessive or frequent menstruation [N92.0] INVALID FOR*07/14/2011 Shortness of breath [R06.02] INVALID FOR*10/15/2013 Palpitations [R00.2] INVALID FOR*03/20/2014 Tachycardia, unspecified [R00.0] INVALID FOR*10/15/2013 More... Open wound site NOS [T14.8XXA] INVALID FOR*07/16/2011 Abdominal pain, right upper quadrant [R10.11] INVALID FOR*07/14/2011 More... Acute gastritis without mention of hemorrhage [*INVALID FOR*10/15/2013 Hematuria [599.7] INVALID FOR*07/14/2011 URGE INCONTINENCE [N39.41] INVALID FOR* FEMALE STRESS INCONTINENCE [N39.3] INVALID FOR* Scar, hypertrophic [L91.0] INVALID FOR*10/15/2013 Ovarian cyst [N83.209] INVALID FOR*07/06/2010 Cyst INVALID FOR*10/15/2013 Other specified pre-operative examination [Z01.*INVALID FOR*07/16/2011 Hirsutism [L68.0] INVALID FOR* Dysphagia [R13.10] INVALID FOR*03/20/2014 GERD (gastroesophageal reflux disease) [K21.9] INVALID FOR* Priority: D More... 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 Obesity (BMI 30.0-34.9) [E66.9] INVALID FOR* More... More... More... More... Idiopathic anaphylaxis [T78.2XXA] INVALID FOR* Priority: A More... Urticaria, idiopathic [L50.1] INVALID FOR*03/28/2016 More... Hyperlipidemia LDL goal <100 [E78.5] INVALID FOR* Impaired fasting glucose [R73.01] INVALID FOR* Recurrent chest pain [R07.9, G89.29] INVALID FOR*12/09/2014 Multinodular goiter [E04.2] INVALID FOR* More... CKD (chronic kidney disease) stage 3, GFR 30-59*INVALID FOR* Pain in joint, ankle and foot [M25.579] INVALID FOR*12/09/2014 More... More... Steroid-induced hyperglycemia [R73.9, T38.0X5A] INVALID FOR*03/28/2016 Priority: C Moderate persistent asthma without complication*INVALID FOR* Ulcerative colitis without complications (HCC) *INVALID FOR* Anaphylaxis [T78.2XXA] INVALID FOR*03/26/2015 More... Neck pain, bilateral [M54.2] INVALID FOR*03/28/2016 Essential hypertension with goal blood pressure*INVALID FOR*03/28/2016 Chronic nausea [R11.0] INVALID FOR* Lumbar radiculitis [M54.16] INVALID FOR*03/28/2016 Lumbar stenosis [M48.061] INVALID FOR*03/28/2016 Acquired spondylolisthesis [M43.10] INVALID FOR*03/28/2016 Cervical radiculitis [M54.12] INVALID FOR*03/28/2016 Cervical spondylosis with radiculopathy [M47.22]INVALID FOR*03/29/2017 Shoulder impingement [M75.40] INVALID FOR*03/28/2016 Anaphylaxis [T78.2XXA] INVALID FOR*03/28/2016 Tendonitis, tibialis [M76.829] INVALID FOR*05/09/2016 Lumbar stenosis [M48.061] INVALID FOR* Cervical radiculitis [M54.12] INVALID FOR*03/29/2017 Cervical herniated disc [M50.20] INVALID FOR*03/29/2017 Cervical stenosis of spine [M48.02] INVALID FOR* Cervical spondylosis with myelopathy [M47.12] INVALID FOR*03/29/2017 Cervical myelopathy (HCC) [G95.9] INVALID FOR*03/29/2017 Claustrophobia [F40.240] INVALID FOR* Ptosis of eyelid, bilateral [H02.403] INVALID FOR*03/29/2017 More... Lumbar spondylosis [M47.816] INVALID FOR* More... Preop testing [Z01.818] INVALID FOR* More... Anaphylaxis [T78.2XXA] INVALID FOR* Essential hypertension [I10] INVALID FOR* Peroneal tendinitis, left [M76.72] INVALID FOR* Follow-up and Disposition History Recorded Encounter Status:Closed by IVETTE MURPHY MD on 01/13/18 MRI ANKLE WO IVCON Observed: 01/05/2018 Status: F Source: [facility] 9:25 AM [facility] REPOSITORY * * *Final Report* * * DATE OF EXAM: Jan 05 2018 9:25AM [facility] 0163 - MRI ANKLE WO IVCON LT / PROCEDURE REASON: multiple diagnoses * * * * Physician Interpretation * * * * MRI Left Ankle INDICATION: Concern for peroneal tendon rupture COMPARISON: 12/20/2017 TECHNIQUE: Multiplanar PD, T1 and T2 weighted images. RESULT: Postsurgical changes of calcaneal osteotomy with 2 screws spanning the calcaneal body. Anterior talofibular ligament: Mild thickening which may be seen in the setting of remote sprain Posterior talofibular ligament: Within normal limits. Anterior-inferior tibiofibular ligament: Within normal limits. Posterior tibiofibular ligament: Within normal limits. Calcaneofibular ligament: Within normal limits. Deltoid ligament: Within normal limits. Spring ligament: Within normal limits Posterior tibial tendon: Moderate tendinosis moderate tendinosis. Flexor digitorum longus tendon: Within normal limits. Flexor hallucis longus tendon: Within normal limits. Peroneal tendons: There is flattening of the peroneus brevis in its posterior malleolar course. There is increased signal and heterogeneity and contour irregularity in its inframalleolar course through the level of the insertion with reactive tenosynovitis. The peroneus longus is unremarkable. Extensor tendons: Within normal limits. Achilles' tendon: Moderate tendinosis without tear with mild interstitial tearing. Mild retrocalcaneal bursal fluid. Bone marrow: There are degenerative changes of the midfoot involving the fourth and fifth tarsal metatarsal joints. There is cystic changes of the distal fibula, likely sequela from prior injury. Talar dome: Within normal limits Plantar fascia: Within normal limits. The tarsal tunnel and sinus tarsi are within normal limits. Joint fluid: No joint effusion or synovitis. Soft tissue edema about the ankle IMPRESSION: 1. Moderate tendinosis of the peroneus brevis . 2. Posterior tibial tendon tendinosis at its insertion. 3. Moderate Achilles tendinosis with mild interstitial tearing. 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 Transcribe Date/Time: Jan 05 2018 11:16A Dictated by : AUNG MANCINI MD This examination was interpreted and the report reviewed and electronically signed by: VASILIY URBINA MD on Jan 05 2018 5:28PM EST [id number] PROGRESS Observed: 01/05/2018 Status: COMPLETED Source: [place] 8:52 AM [facility] REPOSITORY HNO ID: [id number] Author: Valeria Juarez (Tech) Service: Radiology Author Type: Balance Recesser Type: Progress Notes Filed: 01/05/2018 8:53 AM Note Text: Radiology Service Progress Note PATIENT NAME: Ralph Joshi DATE OF SERVICE: January 05, 2018 TIME: 8:52 AM PATIENT IDENTITY VERIFICATION COMPLETED USING TWO (2) METHODS: Patient confirmed name verbally, ID Band and Date of . PATIENT GENDER DATA: Female. status: : No status: NO. PATIENT RELEVANT IMPLANT DATA REVIEWED: Yes RADIOLOGY DEPARTMENT: MR; Exam(s) Completed: Lower MSK: Ankle/Hind Foot, left PERIPHERAL IV DATA: Not applicable SIGNED BY: Thao Gibson January 05, 2018 8:52 AM PROGRESS Observed: 12/28/2017 Status: COMPLETED Source: [place] 1:46 PM [facility] REPOSITORY HNO ID: [id number] Author: Mani Pearson (Rt) Service: (none) Author Type: Balance Recesser Type: Progress Notes Filed: 12/28/2017 1:46 PM Note Text: Radiology Service Progress Note PATIENT NAME: Ralph Joshi DATE OF SERVICE: December 28, 2017 TIME: 1:46 PM PATIENT IDENTITY VERIFICATION COMPLETED USING TWO (2) METHODS: Patient confirmed name verbally and Date of . PATIENT GENDER DATA: Female. status: : No status: NO. PATIENT RELEVANT IMPLANT DATA REVIEWED: Not Applicable RADIOLOGY DEPARTMENT: General X-ray: Exam(s) Completed: Spine X-Ray(s): Cervical AP / LAT / FLEX-EXT PERIPHERAL IV DATA: Not applicable SIGNED BY: RT Eladio December 28, 2017 1:46 PM XR CERVICAL 4V Observed: 12/28/2017 Status: F Source: [place] AP/LAT/FLX/EXT 1:45 PM [facility] REPOSITORY * * *Final Report* * * DATE OF EXAM: Dec 28 2017 1:45PM STX 5310 - XR CERVICAL 4V AP/LAT/FLX/EXT / PROCEDURE REASON: Spinal stenosis, cervical region * * * * Physician Interpretation * * * * EXAMINATION: XR CERVICAL 4V AP/LAT/FLX/EXT CLINICAL HISTORY: ARM NUMBNESS / SURGERY F/U / SURGERY 10/2016 Spinal stenosis, cervical region Technique: XR CERVICAL 4V AP/LAT/FLX/EXT with 4 views on 6 images Comparison: 11/14/2016; 10/26/2016 RESULT: Counting reference: Craniocervical junction. Anatomic Variants: None. Straightening of the normal cervical lordosis. Postsurgical changes anterior plate and screw fixation C5-C7. Unchanged lucency around the middle screws since baseline exam. No fracture or dislocation. Facet and uncovertebral degenerative changes. Prevertebral soft tissues are unremarkable. IMPRESSION: Postsurgical changes without acute findings. 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: PSCB Transcribe Date/Time: Dec 29 2017 10:43A Dictated by : SHER FERRER MD This examination was interpreted and the report reviewed and electronically signed by: SHER FERRER MD on Dec 29 2017 10:56AM EST [id number] PROGRESS Observed: 12/28/2017 Status: COMPLETED Source: [place] 12:46 PM [facility] REPOSITORY HNO ID: [id number] Author: Francesco Shaikh Service: (none) Author Type: Physician Vegetable Farm Manager Type: Progress Notes Filed: 12/28/2017 1:18 PM Note Text: DATE: ?10/25/2016 ? OPERATION: ?C5-6 and C6-7 anterior cervical diskectomy, partial corpectomy C6, use ?of operating microscope, decompression of spinal cord and nerve roots of C6 and C7 ?bilaterally, interbody fusion C5-6 and C6-7 using cortical cancellous allograft cage ?and placement of a cervical anterior plate (Antonio) ? ? 14 months out, neck is okay no pain Beginning to have similar pain in both arms, forearm, and into the hands Also feels like her balance and coordination is off again Symptoms have worsened in the past several months ? Exam: ? Motor: 5/5 SILT Neuro stable ? Assessment/Plan: ? 14 months s/p C5-7 ACDF; doing well, continues with neurologic improvement ? XR MRI RTC after studies ? LENYN Linares MD CNOV Observed: 12/28/2017 Status: COMPLETED Source: [place] 12:20 PM [facility] REPOSITORY Office Visit (SPNSST) RALPH JOSHI ([id number]) 1955 F Date Time Provider Department 12/28/17 12:20 PM FANTA COKER SPNSST During your visit today, we recorded the following information about you: Respiration Weight Height 16/minute 93 kg 1.626 m Liam Payne Ma 12/28/2017 12:39 PM Signed Ralph Joshi is a 62 year old female who is here today for 14 month post op exam. Patient underwent C5-6 and C6-7 anterior cervical diskectomy, partial corpectomy C6, use of operating microscope, decompression of spinal cord and nerve roots of C6 and C7 bilaterally, interbody fusion C5- 6 and C6-7 using cortical cancellous allograft cage and placement of a cervical anterior plate (Lotus). ? on 10/25/16. AMB ROOMING INTAKE FLOWSHEET DATA Risk Screening Do you have concerns about personal safety or safety in the home?: No Pain Pain Score: 5/10 Pain Location: Other: See Comment (arms and hands) Description: Aching, Sore, Numbness, Tingling Duration Amount of Time: 14 Duration Units: Months Frequency: Continuous Intervention: Medication, Reposition Liam Payne Ma, Ma Francesco Shaikh PA-C 12/28/2017 1:18 PM Signed DATE: ?10/25/2016 ? OPERATION: ?C5-6 and C6-7 anterior cervical diskectomy, partial corpectomy C6, use ?of operating microscope, decompression of spinal cord and nerve roots of C6 and C7 ?bilaterally, interbody fusion C5-6 and C6-7 using cortical cancellous allograft cage ?and placement of a cervical anterior plate (Lotus) ? ? 14 months out, neck is okay no pain Beginning to have similar pain in both arms, forearm, and into the hands Also feels like her balance and coordination is off again Symptoms have worsened in the past several months ? Exam: ? Motor: 5/5 SILT Neuro stable ? Assessment/Plan: ? 14 months s/p C5-7 ACDF; doing well, continues with neurologic improvement ? XR MRI RTC after studies ? LENNY Linares MD Referring Provider: FANTA COKER [[id number]] Allergies As of Date: 12/28/2017 Noted Allergy Reaction AVOCADO 09/10/2014 10 - Anaphylaxis BANANA 09/10/2014 10 - Anaphylaxis CARBINOXAMINE 09/17/2012 10 - Anaphylaxis YOSELIN SEED 08/28/2013 10 - Anaphylaxis CIPROFLOXACIN 04/11/2014 10 - Anaphylaxis CODEINE 01/12/2012 10 - Anaphylaxis CONTRAST DYE 05/17/2013 10 - Anaphylaxis Comments: To MRI and CT FISH 09/07/2014 10 - Anaphylaxis HYCODAN (HYDROCODONE-HOMATROPINE) 09/08/2011 10 - Anaphylaxis Comments: Face and throat swelling LATEX 01/21/2014 10 - Anaphylaxis IMTIAZ-SYNEPHRINE (PHENYLEPHRINE HCL)09/04/2014 10 - Anaphylaxis Comments: 10% eye drop NICKEL 01/07/2014 2 - Rash 4 - Hives 10 - Anaphylaxis NSAIDS (NON-STEROIDAL ANTI-INFLAM*08/16/2010 14 - Other: See Comments Comments: Kidney function drops; reversible kidney damage. OXYCODONE 08/28/2013 10 - Anaphylaxis PERIACTIN (CYPROHEPTADINE) 09/17/2012 10 - Anaphylaxis PNEUMOCOCCAL VACCINE 10/31/2014 10 - Anaphylaxis SHELLFISH 09/07/2014 10 - Anaphylaxis ZANTAC (RANITIDINE) 09/17/2012 10 - Anaphylaxis ATIVAN (LORAZEPAM) 08/28/2013 14 - Other: See Comments Comments: hallucination BEE STING 10/31/2017 10 - Anaphylaxis BEEF CONTAINING PRODUCTS 09/10/2014 2 - Rash CORN 05/03/2011 14 - Other: See Comments Comments: Feels like an asthma attack. EGGS (EGG) 03/08/2011 2 - Rash 11 - Vomiting EKG LEADS (ADHESIVE) 10/22/2012 2 - Rash Comments: Localized,only under the leads environmental [Other] 06/26/2007 14 - Other: See Comments Comments: Nasal congestion, brings on an asthma attack. INFLUENZA VIRUS VACCINES 10/22/2012 12 - Shortness of Breath LISINOPRIL 04/20/2004 3 - Cough MILK 03/08/2011 2 - Rash 11 - Vomiting MOMETASONE 04/05/2017 10 - Anaphylaxis Comments: Per Dr. Salas she tolerates formoterol (on Breo at home) but is allergic to mometasone. Okayed by him to update. surgical tape [Other] 11/10/2009 2 - Rash 7 - Swelling Comments: Oral rash, swelling of eyes, asthma attacks; per pateint report. XOLAIR (OMALIZUMAB) 04/19/2012 12 - Shortness of Breath Date Reviewed: 12/28/2017 Reviewed by: Liam Payne Ma - Fully Assessed Reason for Visit: Post Op [174] Primary Visit Diagnosis:Cervical stenosis of spine [M48.02] Other Visit Diagnosis:Spinal stenosis of cervical region [M48.02] Order(s):XR CERV OTHER 4V AP/LAT/FLX/EXT [[id number]] Order #: [id number] FUTURE MRI CERVICAL SPINE WO IVCON [[id number]] Order #: [id number] FUTURE Prescriptions as of 12/28/2017 Sig: NITROGLYCERIN 0.4 MG SUBLINGU* DISSOLVE 1 TABLET UNDER THE T* TRIAMCINOLONE ACETONIDE 0.1 %* Apply 1 application to affect* DOXAZOSIN 4 MG TABLET Take 1 tablet by mouth once d* AMLODIPINE 10 MG TABLET Take 1 tablet by mouth once d* COMPOUNDED PRESCRIPTION Please fit for CPAP mask. Pat* CROMOLYN 20 MG/2 ML SOLUTION * Use 20 mg via nebulizer three* EPINEPHRINE 0.3 MG/0.3 ML INJ* Inject 0.3 mL intramuscularly* DIPHENHYDRAMINE 25 MG TABLET Take 1 tablet by mouth every * PREGABALIN 150 MG CAPSULE Take 1 capsule by mouth twice* PREGABALIN 150 MG CAPSULE Take 1 capsule by mouth twice* ATORVASTATIN 20 MG TABLET One tab on MWF only SPIRONOLACTONE 50 MG TABLET Take 1 tablet by mouth twice * LANSOPRAZOLE 30 MG CAPSULE,DE* TAKE 1 CAPSULE TWICE A DAY BUMETANIDE 0.5 MG TABLET Take 1 tablet by mouth once d* ALBUTEROL SULFATE HFA 90 MCG/* Inhale 2 Puffs as instructed * FLUTICASONE 100 MCG-VILANTERO* Inhale 1 Inhalation as instru* Patient taking differently: Inhale 2 Inhalation as instru* LEVALBUTEROL 1.25 MG/3 ML BRENDA* Use 1 Ampule via nebulizer ev* FLUTICASONE 50 MCG/ACTUATION * 1-2 sprays each side qd BUDESONIDE 0.5 MG/2 ML SUSPEN* Use 1 Ampule via nebulizer tw* AZELASTINE 0.15 % (205.5 MCG)* Use 1 Wilberforce in each nostril t* COMPOUNDED PRESCRIPTION Nocturnal oximetry on room ai* CHOLESTYRAMINE (WITH SUGAR) 4* Take 1 scoop by mouth once da* CYANOCOBALAMIN (VIT B-12) 1,0* Take 1 tablet by mouth once d* ATENOLOL 25 MG TABLET Take 1 tablet by mouth once d* ERGOCALCIFEROL (VITAMIN D2) 5* Take 1 capsule by mouth once * Patient taking differently: Take 50,000 Units by mouth on* TURMERIC ROOT EXTRACT ORAL Take 1 tablet by mouth twice * CRISABOROLE 2 % TOPICAL OINTM* Apply to the hands twice daily COMPOUNDED PRESCRIPTION Please provide patient with n* CETIRIZINE 10 MG TABLET Take 10 mg by mouth once mary ellen* PIMECROLIMUS 1 % TOPICAL CREAM Apply twice daily to the hands ONDANSETRON HCL 4 MG TABLET Take 1 tablet by mouth every * BENZONATATE 200 MG CAPSULE Take 200 mg by mouth three ti* LACTOBACILLUS RHAMNOSUS GG 10* Take 1 capsule by mouth twice* AMOXICILLIN 250 MG CAPSULE Take 250 mg by mouth once liam* ZAFIRLUKAST 20 MG TABLET Take 1 tablet by mouth twice * CYCLOSPORINE MODIFIED 50 MG C* Take 50 mg by mouth twice liam* ASCORBIC ACID (VITAMIN C) 500* Take 1 tablet by mouth once d* Problem List As Of Date 12/28/2017 Noted Resolved JOINT PAIN-ANKLE [M25.579] INVALID FOR*03/20/2014 Edema [R60.9] INVALID FOR*03/28/2016 Priority: I Adrenal nodule (HCC) [E27.9] INVALID FOR* More... Diarrhea [R19.7] INVALID FOR*10/15/2013 Excessive or frequent menstruation [N92.0] INVALID FOR*07/14/2011 Shortness of breath [R06.02] INVALID FOR*10/15/2013 Palpitations [R00.2] INVALID FOR*03/20/2014 Tachycardia, unspecified [R00.0] INVALID FOR*10/15/2013 More... Open wound site NOS [T14.8XXA] INVALID FOR*07/16/2011 Abdominal pain, right upper quadrant [R10.11] INVALID FOR*07/14/2011 More... Acute gastritis without mention of hemorrhage [*INVALID FOR*10/15/2013 Hematuria [599.7] INVALID FOR*07/14/2011 URGE INCONTINENCE [N39.41] INVALID FOR* FEMALE STRESS INCONTINENCE [N39.3] INVALID FOR* Scar, hypertrophic [L91.0] INVALID FOR*10/15/2013 Ovarian cyst [N83.209] INVALID FOR*07/06/2010 Cyst INVALID FOR*10/15/2013 Other specified pre-operative examination [Z01.*INVALID FOR*07/16/2011 Hirsutism [L68.0] INVALID FOR* Dysphagia [R13.10] INVALID FOR*03/20/2014 GERD (gastroesophageal reflux disease) [K21.9] INVALID FOR* Priority: D More... 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 Obesity (BMI 30.0-34.9) [E66.9] INVALID FOR* More... More... More... More... Idiopathic anaphylaxis [T78.2XXA] INVALID FOR* Priority: A More... Urticaria, idiopathic [L50.1] INVALID FOR*03/28/2016 More... Hyperlipidemia LDL goal <100 [E78.5] INVALID FOR* Impaired fasting glucose [R73.01] INVALID FOR* Recurrent chest pain [R07.9, G89.29] INVALID FOR*12/09/2014 Multinodular goiter [E04.2] INVALID FOR* More... CKD (chronic kidney disease) stage 3, GFR 30-59*INVALID FOR* Pain in joint, ankle and foot [M25.579] INVALID FOR*12/09/2014 More... More... Steroid-induced hyperglycemia [R73.9, T38.0X5A] INVALID FOR*03/28/2016 Priority: C Moderate persistent asthma without complication*INVALID FOR* Ulcerative colitis without complications (HCC) *INVALID FOR* Anaphylaxis [T78.2XXA] INVALID FOR*03/26/2015 More... Neck pain, bilateral [M54.2] INVALID FOR*03/28/2016 Essential hypertension with goal blood pressure*INVALID FOR*03/28/2016 Chronic nausea [R11.0] INVALID FOR* Lumbar radiculitis [M54.16] INVALID FOR*03/28/2016 Lumbar stenosis [M48.061] INVALID FOR*03/28/2016 Acquired spondylolisthesis [M43.10] INVALID FOR*03/28/2016 Cervical radiculitis [M54.12] INVALID FOR*03/28/2016 Cervical spondylosis with radiculopathy [M47.22]INVALID FOR*03/29/2017 Shoulder impingement [M75.40] INVALID FOR*03/28/2016 Anaphylaxis [T78.2XXA] INVALID FOR*03/28/2016 Tendonitis, tibialis [M76.829] INVALID FOR*05/09/2016 Lumbar stenosis [M48.061] INVALID FOR* Cervical radiculitis [M54.12] INVALID FOR*03/29/2017 Cervical herniated disc [M50.20] INVALID FOR*03/29/2017 Cervical stenosis of spine [M48.02] INVALID FOR* Cervical spondylosis with myelopathy [M47.12] INVALID FOR*03/29/2017 Cervical myelopathy (HCC) [G95.9] INVALID FOR*03/29/2017 Claustrophobia [F40.240] INVALID FOR* Ptosis of eyelid, bilateral [H02.403] INVALID FOR*03/29/2017 More... Lumbar spondylosis [M47.816] INVALID FOR* More... Preop testing [Z01.818] INVALID FOR* More... Anaphylaxis [T78.2XXA] INVALID FOR* Essential hypertension [I10] INVALID FOR* Peroneal tendinitis, left [M76.72] INVALID FOR* Visit Notes: >> Liam Payne Ma Claudia Dec 28, 2017 12:38 PM Status: Signed Ralph Joshi is a 62 year old female who is here today for 14 month post op exam. Patient underwent C5-6 and C6-7 anterior cervical diskectomy, partial corpectomy C6, use of operating microscope, decompression of spinal cord and nerve roots of C6 and C7 bilaterally, interbody fusion C5-6 and C6-7 using cortical cancellous allograft cage and placement of a cervical anterior plate (Antonio). ? on 10/25/16. AMB ROOMING INTAKE FLOWSHEET DATA Risk Screening Do you have concerns about personal safety or safety in the home?: No Pain Pain Score: 5/10 Pain Location: Other: See Comment (arms and hands) Description: Aching, Sore, Numbness, Tingling Duration Amount of Time: 14 Duration Units: Months Frequency: Continuous Intervention: Medication, Reposition Liam Payne Ma, Ma Encounter Status:Closed by FANTA COKER MD on 12/28/17 URINALYSIS, ROUTINE Collected: 12/22/2017 Status: F Source: BERNA (DIPSTICK) 2:22 PM [facility] REPOSITORY Order Comment: How was Urine Obtained? CLEAN CATCH TYPE CODE TESTS RESULT OUT OF RANGE REFERENCE UNITS LAB L400.3000 Yellow COLOR Normal Straw LAB L400.3050 Clear Normal CLARITY Clear LAB L400.3200 Normal mg/dl Normal GLUCOSE, UR Normal LAB L400.3300 Negative mg/dL Normal BILIRUBIN URINE Negative LAB L400.3400 Negative mg/dl Normal KETONE UR Negative LAB L400.3465 1.002-1.030 Normal SP.GR. DIPSTX 1.010 LAB L400.3550 5.0 - 8.0 pH UR Normal 5.0 LAB L400.3600 Negative mg/dl PROT Normal DIPSTX Negative LAB L400.3700 Normal mg/dl Normal UROBILI Normal LAB L400.3750 Negative Normal NITRITE UR Negative LAB L400.3780 Negative /ul Normal OCCULT BLOOD-UR Negative LAB L400.3800 Negative /ul LEUK Normal ESTERASE Negative Performed By: #### L400.2010 #### [facility] [address] [place], [address] CBC W/DIFF, AUTOMATED Collected: 12/22/2017 Status: F Source: H[place]ISON 2:16 PM [facility] REPOSITORY TYPE CODE TESTS RESULT OUT OF RANGE REFERENCE UNITS LAB L100.1000 4.4-11.0 K/mm3 Normal WBC 6.3 LAB L100.1200 4.2-5.4 M/mm3 Normal RBC 4.98 LAB L100.1300 12.0-15.0 g/dl Normal HGB 14.7 LAB L100.1400 37-47 % Normal HCT 44.9 LAB L100.1500 81-99 fL Normal MCV 90.2 LAB L100.1600 27.0-32.0 pg Normal MCH 29.5 LAB L100.1700 32-36 g/gl Normal MCHC 32.7 LAB L100.1810 11.6-14.6 % Normal RDW CV 14.2 LAB L100.1820 35.1-43.9 fl High RDW SD 46.8 LAB L100.1900 150-450 K/mm3 Normal PLT 209 LAB L100.2000 6.2-12.0 fl Normal MPV 10.7 LAB L100.2100 47-70 % Normal NEUT% 67.2 LAB L100.2200 19-41 % Normal LY% 20.1 LAB L100.2300 0-10 % Normal MONO% 9.4 LAB L100.2400 0-5 % Normal EO% 2.5 LAB L100.2500 0-1 % Normal BASO% 0.6 LAB L100.2550 0.0-0.9 % Normal IM GRAN % 0.200 Result Comment: IG% - Immature Granulocytes (promyelocytes, myelocytes and metamyelocytes) > 1% indicates that a LEFT SHIFT is Present. LAB L100.2620 2.0-7.7 X10 3/uL Normal Absolute Neut 4.2 LAB L100.2720 0.83-4.51 X10 3/ul Normal Absolute Lymph 1.27 Performed By: #### L100.0100 #### [facility] [address] [place], [address] BUN Collected: 12/22/2017 Status: F Source: HARRISON 2:16 PM [facility] REPOSITORY TYPE CODE TESTS RESULT OUT OF RANGE REFERENCE UNITS LAB L501.1000 7-18 mg/dL High BUN 20 Performed By: #### L501.1000, L501.1105, L501.4100, L501.4405 #### [facility] [address] [place], [address] SERUM CREATININE AND Collected: 12/22/2017 Status: F Source: H[place]ISON GFR 2:16 PM [facility] REPOSITORY TYPE CODE TESTS RESULT OUT OF RANGE REFERENCE UNITS LAB L501.1100 0.55-1.02 mg/dL High 1.33 CREAT,SERUM Result Comment: The validity of the calculated GFR AND GFRAA in patients over 70 years has not been determined. Clinical correlation is essential. LAB L501.1110 >60 mL/min Low EST GFR 43 Result Comment: Non- GFR Calc LAB L501.1115 >60 mL/min Low EST GFR - AA 52 Result Comment: GFR Calc Performed By: #### L501.1000, L501.1105, L501.4100, L501.4405 #### [facility] [address] [place], [address] AST(SGOT) Collected: 12/22/2017 Status: F Source: HARRISON 2:16 PM [facility] REPOSITORY TYPE CODE TESTS RESULT OUT OF RANGE REFERENCE UNITS LAB L501.4100 15-37 U/L Normal AST 24 Performed By: #### L501.1000, L501.1105, L501.4100, L501.4405 #### [facility] [address] [place], [place], [address] ALANINE AMINOTRANSFERAS Collected: 12/22/2017 Status: F Source: BERNA (SGPT) 2:16 PM [facility] REPOSITORY TYPE CODE TESTS RESULT OUT OF RANGE REFERENCE UNITS LAB L501.4405 13-56 U/L Normal ALT 49 Performed By: #### L501.1000, L501.1105, L501.4100, L501.4405 #### [facility] [address] [place], [place], [address] CYCLOSPORINE, BLOOD Collected: 12/22/2017 Status: F Source: BERNA 2:16 PM [facility] REPOSITORY TYPE CODE TESTS RESULT OUT OF REFERENCE UNITS RANGE LAB L3400.3100 100-400 ng/mL Low Cyclosporine 29 Result Comment: Therapeutic: Renal Transplant 100 - 250 Liver Transplant 100 - 400 Cardiac Transplant 100 - 400 Bone Marrow 200 - 300 Detection Limit = 25 Assay performed by Liquid Chromatography Tandem Mass Spectrometry (LC-MS/MS) If preferred testing methodology for Cyclosporine is Liquid Chromatography Tandem Mass Spectrometry (LC-MS/MS) please use test code [id number]. For testing performed by Immunoassay, please use test code [id number]. Performed at: [address] [id number] [employer] Director: Mik Alonso MD, Phone: [phone] Performed By: #### L3400.3090 #### [facility] (refer to report for specific site) refer to report for address and phone number CNOV Observed: 12/20/2017 Status: COMPLETED Source: CAM 12:00 PM [facility] REPOSITORY Office Visit (ORFTMN) RALPH JOSHI ([id number]) 1955 F Date Time Provider Department 12/20/17 12:00 PM IVETTE MURPHY During your visit today, we recorded the following information about you: Weight Height 90.7 kg 1.626 m Ivette Murphy MD 12/20/2017 12:10 PM Signed December 20, 2017 CHIEF COMPLAINT: Ankle Pain (left) HPI: Ralph Joshi is a 62 yo female with left ankle pain. No trauma. May have twisted it a couple of times. Had surgery on the ankle about 12-[address] Sewell consisting of MCO, FDL for PTT dysfunction. Left surgery in 2004, right in 2013. Pain Descriptors: Duration: 6-12 months Severity: moderate Quality: deep ache Location: lateral ankle/hindfoot Context: worse with activity Modifying Factors: Persists with rest Supporting Subjective Information Below: Estimated body mass index is 34.33 kg/m? as calculated from the following: Height as of this encounter: 162.6 cm (5' 4). Weight as of this encounter: 90.7 kg (200 lb). Past Medical History PAST MEDICAL HISTORY Diagnosis Date - Abdominal pain, other specified site - ACNE NEC 01/21/2008 - Actinic Keratosis (Premalignant AK) 06/05/2011 - ACUTE GASTRITIS W/O HEMORRHAGE 04/26/2007 - Allergic rhinitis 04/23/2012 - Anaphylactic reaction ideopathic - Benign tumor of adrenal gland - Biliary dyskinesia 10/29/2009 - Cervical herniated disc 10/20/2016 - Cervical myelopathy (HCC) 10/25/2016 - Cervical radiculitis 10/20/2016 - Cervical spondylosis with radiculopathy 11/17/2015 - JAIN ANGIOMA///NEVUS, NON-NEOPLASTIC 05/28/2007 - CKD (chronic kidney disease) stage 3, GFR 30-59 ml/min (HCC) 04/29/2013 - Diaphragmatic hernia without mention of obstruction or gangrene 05/25/2011 - Diverticulosis of colon (without mention of hemorrhage) - Edema 07/07/2004 - Epigastric pain - GERD (gastroesophageal reflux disease) - HTN (hypertension) 2002 controlled on Diovan - Hyperlipidemia 10/15/2013 - IRON DEFIC ANEMIA NOS 04/26/2007 - Moderate persistent asthma without complication 02/18/2015 - Ovarian cyst Benign ovarian cyst, S/P laparoscopic LSO - Ptosis of eyelid, bilateral 12/23/2016 Added automatically from request for surgery [id number] - Shoulder impingement 11/17/2015 - Sleep apnea intollerant to CPAP because allergic to material on mask - Steroid-induced hyperglycemia 09/06/2014 - TACHYCARDIA NOS 01/09/2006 - Tarsal tunnel syndrome 12/23/2009 - Tear of lateral meniscus of knee 02/21/2014 - Ulcerative colitis, unspecified - UTERINE LEIOMYOMA NOS 12/23/2005 - VIRAL WARTS NOS 05/09/2006 - Vocal cord dysfunction Surgical History SURGICALHX@ Family History @[facility]@ Medications: Current Outpatient Prescriptions: nitroglycerin sublingual (NITROQUICK) 0.4 mg SL tablet DISSOLVE 1 TABLET UNDER THE TONGUE NEEDED FOR CHEST PAIN. IF NO RELIEF, CALL 911 triamcinolone acetonide (KENALOG) 0.1 % cream Apply 1 application to affected area three times daily. Apply to affected area. Location: arms doxazosin (CARDURA) 4 mg tablet Take 1 tablet by mouth once daily. amLODIPine (NORVASC) 10 mg tablet Take 1 tablet by mouth once daily. COMPOUNDED PRESCRIPTION Please fit for CPAP mask. Patient with previous allergic/anaphylaxis reaction to mask. DME: [facility] [employer]. cromolyn (INTAL) 20 mg/2 mL nebulizer solution Use 20 mg via nebulizer three times daily. EPINEPHrine (EPIPEN) 0.3 mg/0.3 mL auto-injector Inject 0.3 mL intramuscularly as needed. Inject full content of the syringe. diphenhydrAMINE (BENADRYL) 25 mg tablet Take 1 tablet by mouth every 6 hours as needed for Itching/Rash. pregabalin (LYRICA) 150 mg capsule Take 1 capsule by mouth twice daily for 181 days. atorvastatin (LIPITOR) 20 mg tablet One tab on MWF only spironolactone (ALDACTONE) 50 mg tablet Take 1 tablet by mouth twice daily. lansoprazole (PREVACID) 30 mg capsule TAKE 1 CAPSULE TWICE A DAY bumetanide (BUMEX) 0.5 mg tablet Take 1 tablet by mouth once daily. albuterol HFA (PROAIR HFA) 90 mcg/actuation inhaler Inhale 2 Puffs as instructed every 6 hours as needed for Wheezing/Shortness of Breath. fluticasone-vilanterol (BREO ELLIPTA) 100-25 mcg/dose inhaler Inhale 1 Inhalation as instructed once daily. (Patient taking differently: Inhale 2 Inhalation as instructed once daily. ) levalbuterol (XOPENEX) 1.25 mg/3 mL nebulizer solution Use 1 Ampule via nebulizer every 4 hours as needed. Inhale over 5-15 minutes fluticasone (FLONASE) 50 mcg/actuation nasal spray 1-2 sprays each side qd budesonide (PULMICORT) 0.5 mg/2 mL nebulizer solution Use 1 Ampule via nebulizer twice daily. Azelastine 0.15 % (205.5 mcg) spry Use 1 Wilberforce in each nostril twice daily. COMPOUNDED PRESCRIPTION Nocturnal oximetry on room air. DME: [facility] cholestyramine-sucrose (QUESTRAN) 4 gram powder Take 1 scoop by mouth once daily. cyanocobalamin (VITAMIN B-12) 1,000 mcg tab Take 1 tablet by mouth once daily. atenolol (TENORMIN) 25 mg tablet Take 1 tablet by mouth once daily. ergocalciferol, vitamin D2, (VITAMIN D) 50,000 unit capsule Take 1 capsule by mouth once each week. (Patient taking differently: Take 50,000 Units by mouth once each week. Every Monday ) TURMERIC ROOT EXTRACT ORAL Take 1 tablet by mouth twice daily. crisaborole (EUCRISA) 2 % oint Apply to the hands twice daily COMPOUNDED PRESCRIPTION Please provide patient with nebulizer machine and supplies.Diagnosis: Severe Asthma. cetirizine (ZYRTEC) 10 mg tablet Take 10 mg by mouth once daily. pimecrolimus (ELIDEL) 1 % cream Apply twice daily to the hands ondansetron (ZOFRAN) 4 mg tablet Take 1 tablet by mouth every 8 hours as needed. Benzonatate 200 mg capsule Take 200 mg by mouth three times daily as needed for Cough. lactobacillus rhamnosus (CULTURELLE) 10 billion cell capsule Take 1 capsule by mouth twice daily. amoxicillin (POLYMOX, AMOXIL) 250 mg capsule Take 250 mg by mouth once daily. zafirlukast (ACCOLATE) 20 mg tablet Take 1 tablet by mouth twice daily. cycloSPORINE Modified 50 mg capsule Take 50 mg by mouth twice daily. ascorbic acid (VITAMIN C) 500 mg tablet Take 1 tablet by mouth once daily. pregabalin (LYRICA) 150 mg capsule Take 1 capsule by mouth twice daily for 90 days. No current facility-administered medications for this visit. Allergies: Avocado; Banana; Carbinoxamine; Yoselin Seed; Ciprofloxacin; Codeine; Contrast Dye; Fish; Hycodan [Hydrocodone-Homatropine]; Latex; Imtiaz-Synephrine [Phenylephrine Hcl]; Nickel; Nsaids (Non-Steroidal Anti-Inflammatory Drug); Oxycodone; Periactin [Cyproheptadine]; Pneumococcal Vaccine; Shellfish; Zantac [Ranitidine]; Ativan [Lorazepam]; Bee Sting; Beef Containing Products; Berino; Eggs [Egg]; Ekg Leads [Adhesive]; Environmental [Other]; Influenza Virus Vaccines; Lisinopril; Milk; Mometasone; Surgical Tape [Other]; Xolair [Omalizumab] Review Of Systems GENERAL:Negative for malaise, significant weight loss and fever HEENT:Negative for frequent or significant headaches, significant changes in vision or vision problems, significant ear problems or hearing loss, nasal discharge or nose bleeds and sore throat, difficulty swallowing, mouth lesions NECK:Negative for lumps, goiter, pain and significant neck swelling RESPIRATORY: Negative for cough, wheezing and shortness of breath CARDIOVASCULAR: Negative for chest pain, leg swelling and palpitations GASTROINTESTINAL: Negative for abdominal discomfort, blood in stools or black stools and change in bowel habits GENITOURINARY: Negative for dysuria, frequency and incontinence MUSCULOSKELETAL: Negative for joint pain or swelling, back pain, and muscle pain. NEUROLOGIC:Negative for focal numbness or weakness, headaches and dizziness. SKIN:Negative for lesions, rash, and itching. PSYCHIATRIC: Negative for sleep disturbance, mood disorder and recent psychosocial stressors. HEMATOLOGIC/LYMPHATIC/IMMUNOLOGIC:Negative for prolonged bleeding, bruising easily, and swollen nodes. ENDOCRINE: Negative for cold or heat intolerance, polyuria, polydipsia and goiter. Physical Exam: Basic physical examination reveals the patient to be in no acute distress. The patient is alert and oriented. Head is atraumatic, normocephalic. Neck ROM is grossly intact Mucous membranes are moist. Eyes, ears, and nose are normal in appearance. Hearing is grossly intact. Breathing is unlabored with grossly normal chest motion. Limited Upper Extremity Exam: Shoulders with grossly intact ROM and strength, no obvious deformity. Elbows with grossly intact ROM and strength, no obvious deformity. Hand and wrist with grossly intact ROM and strength, no obvious deformity. Focused orthopaedic examination reveals the following: Lateral swelling Heel varus bilateral Relatively weak eversion on left No instability Imaging: XR with heel varus, retained screws, ankle mortise intact Assessment and Plan: Left peroneal tendon injury I suspect peroneal tendon rupture associated with her malalignment She has failed nonsurgical tx with Dr. Meza with nsaid, braces, activity modification. She is facing the prospect of surgery Therefore I have ordered MRI to assess the peroneal tendons and determine extent of surgery. Return to clinic: sp MR X-Ray's at next visit: No REFERRING PHYSICIANS: Ms. Ralph Joshi was referred to me for consultation and further care by the following physician. This consultation note will be sent to the following physician by either mail or electronic medical record. Jane Meza DPM [address] [facility] [address] PCP: Anisa Caldwell MD [address] [facility] [id number] FELLOW / RESIDENT: No fellow or resident assisted in this office visit. At least 50% of the duration of this visit was spent performing direct, [id number] counseling. Ivette Murphy MD Referring Provider: JANE MEZA [[id number]] Allergies As of Date: 12/20/2017 Noted Allergy Reaction AVOCADO 09/10/2014 10 - Anaphylaxis BANANA 09/10/2014 10 - Anaphylaxis CARBINOXAMINE 09/17/2012 10 - Anaphylaxis YOSELIN SEED 08/28/2013 10 - Anaphylaxis CIPROFLOXACIN 04/11/2014 10 - Anaphylaxis CODEINE 01/12/2012 10 - Anaphylaxis CONTRAST DYE 05/17/2013 10 - Anaphylaxis Comments: To MRI and CT FISH 09/07/2014 10 - Anaphylaxis HYCODAN (HYDROCODONE-HOMATROPINE) 09/08/2011 10 - Anaphylaxis Comments: Face and throat swelling LATEX 01/21/2014 10 - Anaphylaxis IMTIAZ-SYNEPHRINE (PHENYLEPHRINE HCL)09/04/2014 10 - Anaphylaxis Comments: 10% eye drop NICKEL 01/07/2014 2 - Rash 4 - Hives 10 - Anaphylaxis NSAIDS (NON-STEROIDAL ANTI-INFLAM*08/16/2010 14 - Other: See Comments Comments: Kidney function drops; reversible kidney damage. OXYCODONE 08/28/2013 10 - Anaphylaxis PERIACTIN (CYPROHEPTADINE) 09/17/2012 10 - Anaphylaxis PNEUMOCOCCAL VACCINE 10/31/2014 10 - Anaphylaxis SHELLFISH 09/07/2014 10 - Anaphylaxis ZANTAC (RANITIDINE) 09/17/2012 10 - Anaphylaxis ATIVAN (LORAZEPAM) 08/28/2013 14 - Other: See Comments Comments: hallucination BEE STING 10/31/2017 10 - Anaphylaxis BEEF CONTAINING PRODUCTS 09/10/2014 2 - Rash CORN 05/03/2011 14 - Other: See Comments Comments: Feels like an asthma attack. EGGS (EGG) 03/08/2011 2 - Rash 11 - Vomiting EKG LEADS (ADHESIVE) 10/22/2012 2 - Rash Comments: Localized,only under the leads environmental [Other] 06/26/2007 14 - Other: See Comments Comments: Nasal congestion, brings on an asthma attack. INFLUENZA VIRUS VACCINES 10/22/2012 12 - Shortness of Breath LISINOPRIL 04/20/2004 3 - Cough MILK 03/08/2011 2 - Rash 11 - Vomiting MOMETASONE 04/05/2017 10 - Anaphylaxis Comments: Per Dr. Salas she tolerates formoterol (on Breo at home) but is allergic to mometasone. Okayed by him to update. surgical tape [Other] 11/10/2009 2 - Rash 7 - Swelling Comments: Oral rash, swelling of eyes, asthma attacks; per pateint report. XOLAIR (OMALIZUMAB) 04/19/2012 12 - Shortness of Breath Date Reviewed: 12/20/2017 Reviewed by: Rebecca Pinon Ma - Fully Assessed Reason for Visit: Ankle Pain [1036] Cmt: left Primary Visit Diagnosis:Chronic pain of left ankle [M25.572, G89.29] Other Visit Diagnosis:Peroneal tendon injury, initial encounter [S86.309A] Order(s):MRI ANKLE WO [facility]CON LT [[id number]] Order #: [id number] FUTURE Prescriptions as of 12/20/2017 Sig: NITROGLYCERIN 0.4 MG SUBLINGU* DISSOLVE 1 TABLET UNDER THE T* TRIAMCINOLONE ACETONIDE 0.1 %* Apply 1 application to affect* DOXAZOSIN 4 MG TABLET Take 1 tablet by mouth once d* AMLODIPINE 10 MG TABLET Take 1 tablet by mouth once d* COMPOUNDED PRESCRIPTION Please fit for CPAP mask. Pat* CROMOLYN 20 MG/2 ML SOLUTION * Use 20 mg via nebulizer three* EPINEPHRINE 0.3 MG/0.3 ML INJ* Inject 0.3 mL intramuscularly* DIPHENHYDRAMINE 25 MG TABLET Take 1 tablet by mouth every * PREGABALIN 150 MG CAPSULE Take 1 capsule by mouth twice* ATORVASTATIN 20 MG TABLET One tab on MWF only SPIRONOLACTONE 50 MG TABLET Take 1 tablet by mouth twice * LANSOPRAZOLE 30 MG CAPSULE,DE* TAKE 1 CAPSULE TWICE A DAY BUMETANIDE 0.5 MG TABLET Take 1 tablet by mouth once d* ALBUTEROL SULFATE HFA 90 MCG/* Inhale 2 Puffs as instructed * FLUTICASONE 100 MCG-VILANTERO* Inhale 1 Inhalation as instru* Patient taking differently: Inhale 2 Inhalation as instru* LEVALBUTEROL 1.25 MG/3 ML BRENDA* Use 1 Ampule via nebulizer ev* FLUTICASONE 50 MCG/ACTUATION * 1-2 sprays each side qd BUDESONIDE 0.5 MG/2 ML SUSPEN* Use 1 Ampule via nebulizer tw* AZELASTINE 0.15 % (205.5 MCG)* Use 1 Wilberforce in each nostril t* COMPOUNDED PRESCRIPTION Nocturnal oximetry on room ai* CHOLESTYRAMINE (WITH SUGAR) 4* Take 1 scoop by mouth once da* CYANOCOBALAMIN (VIT B-12) 1,0* Take 1 tablet by mouth once d* ATENOLOL 25 MG TABLET Take 1 tablet by mouth once d* ERGOCALCIFEROL (VITAMIN D2) 5* Take 1 capsule by mouth once * Patient taking differently: Take 50,000 Units by mouth on* TURMERIC ROOT EXTRACT ORAL Take 1 tablet by mouth twice * CRISABOROLE 2 % TOPICAL OINTM* Apply to the hands twice daily COMPOUNDED PRESCRIPTION Please provide patient with n* CETIRIZINE 10 MG TABLET Take 10 mg by mouth once mary ellen* PIMECROLIMUS 1 % TOPICAL CREAM Apply twice daily to the hands ONDANSETRON HCL 4 MG TABLET Take 1 tablet by mouth every * BENZONATATE 200 MG CAPSULE Take 200 mg by mouth three ti* LACTOBACILLUS RHAMNOSUS GG 10* Take 1 capsule by mouth twice* AMOXICILLIN 250 MG CAPSULE Take 250 mg by mouth once liam* ZAFIRLUKAST 20 MG TABLET Take 1 tablet by mouth twice * CYCLOSPORINE MODIFIED 50 MG C* Take 50 mg by mouth twice liam* ASCORBIC ACID (VITAMIN C) 500* Take 1 tablet by mouth once d* PREGABALIN 150 MG CAPSULE Take 1 capsule by mouth twice* Problem List As Of Date 12/20/2017 Noted Resolved JOINT PAIN-ANKLE [M25.579] INVALID FOR*03/20/2014 Edema [R60.9] INVALID FOR*03/28/2016 Priority: I Adrenal nodule (HCC) [E27.9] INVALID FOR* More... Diarrhea [R19.7] INVALID FOR*10/15/2013 Excessive or frequent menstruation [N92.0] INVALID FOR*07/14/2011 Shortness of breath [R06.02] INVALID FOR*10/15/2013 Palpitations [R00.2] INVALID FOR*03/20/2014 Tachycardia, unspecified [R00.0] INVALID FOR*10/15/2013 More... Open wound site NOS [T14.8XXA] INVALID FOR*07/16/2011 Abdominal pain, right upper quadrant [R10.11] INVALID FOR*07/14/2011 More... Acute gastritis without mention of hemorrhage [*INVALID FOR*10/15/2013 Hematuria [599.7] INVALID FOR*07/14/2011 URGE INCONTINENCE [N39.41] INVALID FOR* FEMALE STRESS INCONTINENCE [N39.3] INVALID FOR* Scar, hypertrophic [L91.0] INVALID FOR*10/15/2013 Ovarian cyst [N83.209] INVALID FOR*07/06/2010 Cyst INVALID FOR*10/15/2013 Other specified pre-operative examination [Z01.*INVALID FOR*07/16/2011 Hirsutism [L68.0] INVALID FOR* Dysphagia [R13.10] INVALID FOR*03/20/2014 GERD (gastroesophageal reflux disease) [K21.9] INVALID FOR* Priority: D More... 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 Obesity (BMI 30.0-34.9) [E66.9] INVALID FOR* More... More... More... More... Idiopathic anaphylaxis [T78.2XXA] INVALID FOR* Priority: A More... Urticaria, idiopathic [L50.1] INVALID FOR*03/28/2016 More... Hyperlipidemia LDL goal <100 [E78.5] INVALID FOR* Impaired fasting glucose [R73.01] INVALID FOR* Recurrent chest pain [R07.9, G89.29] INVALID FOR*12/09/2014 Multinodular goiter [E04.2] INVALID FOR* More... CKD (chronic kidney disease) stage 3, GFR 30-59*INVALID FOR* Pain in joint, ankle and foot [M25.579] INVALID FOR*12/09/2014 More... More... Steroid-induced hyperglycemia [R73.9, T38.0X5A] INVALID FOR*03/28/2016 Priority: C Moderate persistent asthma without complication*INVALID FOR* Ulcerative colitis without complications (HCC) *INVALID FOR* Anaphylaxis [T78.2XXA] INVALID FOR*03/26/2015 More... Neck pain, bilateral [M54.2] INVALID FOR*03/28/2016 Essential hypertension with goal blood pressure*INVALID FOR*03/28/2016 Chronic nausea [R11.0] INVALID FOR* Lumbar radiculitis [M54.16] INVALID FOR*03/28/2016 Lumbar stenosis [M48.061] INVALID FOR*03/28/2016 Acquired spondylolisthesis [M43.10] INVALID FOR*03/28/2016 Cervical radiculitis [M54.12] INVALID FOR*03/28/2016 Cervical spondylosis with radiculopathy [M47.22]INVALID FOR*03/29/2017 Shoulder impingement [M75.40] INVALID FOR*03/28/2016 Anaphylaxis [T78.2XXA] INVALID FOR*03/28/2016 Tendonitis, tibialis [M76.829] INVALID FOR*05/09/2016 Lumbar stenosis [M48.061] INVALID FOR* Cervical radiculitis [M54.12] INVALID FOR*03/29/2017 Cervical herniated disc [M50.20] INVALID FOR*03/29/2017 Cervical stenosis of spine [M48.02] INVALID FOR* Cervical spondylosis with myelopathy [M47.12] INVALID FOR*03/29/2017 Cervical myelopathy (HCC) [G95.9] INVALID FOR*03/29/2017 Claustrophobia [F40.240] INVALID FOR* Ptosis of eyelid, bilateral [H02.403] INVALID FOR*03/29/2017 More... Lumbar spondylosis [M47.816] INVALID FOR* More... Preop testing [Z01.818] INVALID FOR* More... Anaphylaxis [T78.2XXA] INVALID FOR* Essential hypertension [I10] INVALID FOR* Peroneal tendinitis, left [M76.72] INVALID FOR* Encounter Status:Closed by IVETTE MURPHY MD on 12/20/17 PROGRESS Observed: 12/20/2017 Status: COMPLETED Source: [place] 11:59 AM [facility] REPOSITORY O ID: [id number] Author: Ivette Murphy Service: (none) Author Type: Physician Type: Progress Notes Filed: 12/20/2017 12:10 PM Note Text: December 20, 2017 CHIEF COMPLAINT: Ankle Pain (left) HPI: Ralph Joshi is a 62 yo female with left ankle pain. No trauma. May have twisted it a couple of times. Had surgery on the ankle about 12-[address] Sewell consisting of MCO, FDL for PTT dysfunction. Left surgery in 2004, right in 2013. Pain Descriptors: Duration: 6-12 months Severity: moderate Quality: deep ache Location: lateral ankle/hindfoot Context: worse with activity Modifying Factors: Persists with rest Supporting Subjective Information Below: Estimated body mass index is 34.33 kg/m? as calculated from the following: Height as of this encounter: 162.6 cm (5' 4). Weight as of this encounter: 90.7 kg (200 lb). Past Medical History PAST MEDICAL HISTORY Diagnosis Date - Abdominal pain, other specified site - ACNE NEC 01/21/2008 - Actinic Keratosis (Premalignant AK) 06/05/2011 - ACUTE GASTRITIS W/O HEMORRHAGE 04/26/2007 - Allergic rhinitis 04/23/2012 - Anaphylactic reaction ideopathic - Benign tumor of adrenal gland - Biliary dyskinesia 10/29/2009 - Cervical herniated disc 10/20/2016 - Cervical myelopathy (HCC) 10/25/2016 - Cervical radiculitis 10/20/2016 - Cervical spondylosis with radiculopathy 11/17/2015 - JAIN ANGIOMA///NEVUS, NON-NEOPLASTIC 05/28/2007 - CKD (chronic kidney disease) stage 3, GFR 30-59 ml/min ([facility]) 04/29/2013 - Diaphragmatic hernia without mention of obstruction or gangrene 05/25/2011 - Diverticulosis of colon (without mention of hemorrhage) - Edema 07/07/2004 - Epigastric pain - GERD (gastroesophageal reflux disease) - HTN (hypertension) 2002 controlled on Diovan - Hyperlipidemia 10/15/2013 - IRON DEFIC ANEMIA NOS 04/26/2007 - Moderate persistent asthma without complication 02/18/2015 - Ovarian cyst Benign ovarian cyst, S/P laparoscopic LSO - Ptosis of eyelid, bilateral 12/23/2016 Added automatically from request for surgery [id number] - Shoulder impingement 11/17/2015 - Sleep apnea intollerant to CPAP because allergic to material on mask - Steroid-induced hyperglycemia 09/06/2014 - TACHYCARDIA NOS 01/09/2006 - Tarsal tunnel syndrome 12/23/2009 - Tear of lateral meniscus of knee 02/21/2014 - Ulcerative colitis, unspecified - UTERINE LEIOMYOMA NOS 12/23/2005 - VIRAL WARTS NOS 05/09/2006 - Vocal cord dysfunction Surgical History SURGICALHX@ Family History @[facility]@ Medications: Current Outpatient Prescriptions: nitroglycerin sublingual (NITROQUICK) 0.4 mg SL tablet DISSOLVE 1 TABLET UNDER THE TONGUE NEEDED FOR CHEST PAIN. IF NO RELIEF, CALL 911 triamcinolone acetonide (KENALOG) 0.1 % cream Apply 1 application to affected area three times daily. Apply to affected area. Location: arms doxazosin (CARDURA) 4 mg tablet Take 1 tablet by mouth once daily. amLODIPine (NORVASC) 10 mg tablet Take 1 tablet by mouth once daily. COMPOUNDED PRESCRIPTION Please fit for CPAP mask. Patient with previous allergic/anaphylaxis reaction to mask. DME: [facility]. cromolyn (INTAL) 20 mg/2 mL nebulizer solution Use 20 mg via nebulizer three times daily. EPINEPHrine (EPIPEN) 0.3 mg/0.3 mL auto-injector Inject 0.3 mL intramuscularly as needed. Inject full content of the syringe. diphenhydrAMINE (BENADRYL) 25 mg tablet Take 1 tablet by mouth every 6 hours as needed for Itching/Rash. pregabalin (LYRICA) 150 mg capsule Take 1 capsule by mouth twice daily for 181 days. atorvastatin (LIPITOR) 20 mg tablet One tab on MWF only spironolactone (ALDACTONE) 50 mg tablet Take 1 tablet by mouth twice daily. lansoprazole (PREVACID) 30 mg capsule TAKE 1 CAPSULE TWICE A DAY bumetanide (BUMEX) 0.5 mg tablet Take 1 tablet by mouth once daily. albuterol HFA (PROAIR HFA) 90 mcg/actuation inhaler Inhale 2 Puffs as instructed every 6 hours as needed for Wheezing/Shortness of Breath. fluticasone-vilanterol (BREO ELLIPTA) 100-25 mcg/dose inhaler Inhale 1 Inhalation as instructed once daily. (Patient taking differently: Inhale 2 Inhalation as instructed once daily. ) levalbuterol (XOPENEX) 1.25 mg/3 mL nebulizer solution Use 1 Ampule via nebulizer every 4 hours as needed. Inhale over 5-15 minutes fluticasone (FLONASE) 50 mcg/actuation nasal spray 1-2 sprays each side qd budesonide (PULMICORT) 0.5 mg/2 mL nebulizer solution Use 1 Ampule via nebulizer twice daily. Azelastine 0.15 % (205.5 mcg) spry Use 1 Wilberforce in each nostril twice daily. COMPOUNDED PRESCRIPTION Nocturnal oximetry on room air. DME: [facility] cholestyramine-sucrose (QUESTRAN) 4 gram powder Take 1 scoop by mouth once daily. cyanocobalamin (VITAMIN B-12) 1,000 mcg tab Take 1 tablet by mouth once daily. atenolol (TENORMIN) 25 mg tablet Take 1 tablet by mouth once daily. ergocalciferol, vitamin D2, (VITAMIN D) 50,000 unit capsule Take 1 capsule by mouth once each week. (Patient taking differently: Take 50,000 Units by mouth once each week. Every Monday ) TURMERIC ROOT EXTRACT ORAL Take 1 tablet by mouth twice daily. crisaborole (EUCRISA) 2 % oint Apply to the hands twice daily COMPOUNDED PRESCRIPTION Please provide patient with nebulizer machine and supplies.Diagnosis: Severe Asthma. cetirizine (ZYRTEC) 10 mg tablet Take 10 mg by mouth once daily. pimecrolimus (ELIDEL) 1 % cream Apply twice daily to the hands ondansetron (ZOFRAN) 4 mg tablet Take 1 tablet by mouth every 8 hours as needed. Benzonatate 200 mg capsule Take 200 mg by mouth three times daily as needed for Cough. lactobacillus rhamnosus (CULTURELLE) 10 billion cell capsule Take 1 capsule by mouth twice daily. amoxicillin (POLYMOX, AMOXIL) 250 mg capsule Take 250 mg by mouth once daily. zafirlukast (ACCOLATE) 20 mg tablet Take 1 tablet by mouth twice daily. cycloSPORINE Modified 50 mg capsule Take 50 mg by mouth twice daily. ascorbic acid (VITAMIN C) 500 mg tablet Take 1 tablet by mouth once daily. pregabalin (LYRICA) 150 mg capsule Take 1 capsule by mouth twice daily for 90 days. No current facility-administered medications for this visit. Allergies: Avocado; Banana; Carbinoxamine; Yoselin Seed; Ciprofloxacin; Codeine; Contrast Dye; Fish; Hycodan [Hydrocodone-Homatropine]; Latex; Imtiaz-Synephrine [Phenylephrine Hcl]; Nickel; Nsaids (Non-Steroidal Anti-Inflammatory Drug); Oxycodone; Periactin [Cyproheptadine]; Pneumococcal Vaccine; Shellfish; Zantac [Ranitidine]; Ativan [Lorazepam]; Bee Sting; Beef Containing Products; Berino; Eggs [Egg]; Ekg Leads [Adhesive]; Environmental [Other]; Influenza Virus Vaccines; Lisinopril; Milk; Mometasone; Surgical Tape [Other]; Xolair [Omalizumab] Review Of Systems GENERAL:Negative for malaise, significant weight loss and fever HEENT:Negative for frequent or significant headaches, significant changes in vision or vision problems, significant ear problems or hearing loss, nasal discharge or nose bleeds and sore throat, difficulty swallowing, mouth lesions NECK:Negative for lumps, goiter, pain and significant neck swelling RESPIRATORY: Negative for cough, wheezing and shortness of breath CARDIOVASCULAR: Negative for chest pain, leg swelling and palpitations GASTROINTESTINAL: Negative for abdominal discomfort, blood in stools or black stools and change in bowel habits GENITOURINARY: Negative for dysuria, frequency and incontinence MUSCULOSKELETAL: Negative for joint pain or swelling, back pain, and muscle pain. NEUROLOGIC:Negative for focal numbness or weakness, headaches and dizziness. SKIN:Negative for lesions, rash, and itching. PSYCHIATRIC: Negative for sleep disturbance, mood disorder and recent psychosocial stressors. HEMATOLOGIC/LYMPHATIC/IMMUNOLOGIC:Negative for prolonged bleeding, bruising easily, and swollen nodes. ENDOCRINE: Negative for cold or heat intolerance, polyuria, polydipsia and goiter. Physical Exam: Basic physical examination reveals the patient to be in no acute distress. The patient is alert and oriented. Head is atraumatic, normocephalic. Neck ROM is grossly intact Mucous membranes are moist. Eyes, ears, and nose are normal in appearance. Hearing is grossly intact. Breathing is unlabored with grossly normal chest motion. Limited Upper Extremity Exam: Shoulders with grossly intact ROM and strength, no obvious deformity. Elbows with grossly intact ROM and strength, no obvious deformity. Hand and wrist with grossly intact ROM and strength, no obvious deformity. Focused orthopaedic examination reveals the following: Lateral swelling Heel varus bilateral Relatively weak eversion on left No instability Imaging: XR with heel varus, retained screws, ankle mortise intact Assessment and Plan: Left peroneal tendon injury I suspect peroneal tendon rupture associated with her malalignment She has failed nonsurgical tx with Dr. Meza with nsaid, braces, activity modification. She is facing the prospect of surgery Therefore I have ordered MRI to assess the peroneal tendons and determine extent of surgery. Return to clinic: sp MR X-Ray's at next visit: No REFERRING PHYSICIANS: Ms. Ralph Joshi was referred to me for consultation and further care by the following physician. This consultation note will be sent to the following physician by either mail or electronic medical record. Jane Meza DPM [address] [facility] [address] PCP: Anisa Caldwell MD [address] [facility] [id number] FELLOW / RESIDENT: No fellow or resident assisted in this office visit. At least 50% of the duration of this visit was spent performing direct, [id number] counseling. Ivette Murphy MD XR ANKLE 3V AP/LAT/OBL Observed: 12/20/2017 Status: F Source: [facility] 10:51 AM [facility] REPOSITORY * * *Final Report* * * DATE OF EXAM: Dec 20 2017 10:51AM AOX [id number] - XR ANKLE 3V AP/LAT/OBL LT / PROCEDURE REASON: Pain in left ankle and joints of left foot * * * * Physician Interpretation * * * * EXAMINATION: XR FOOT 3V AP/LAT/OBL LT, XR ANKLE 3V AP/LAT/OBL LT HISTORY: Left foot ankle ankle tear 12-15 years ago resulting in surgery. Pain Pain in left ankle and joints of left foot . TECHNIQUE: XR FOOT 3V AP/LAT/OBL LT, XR ANKLE 3V AP/LAT/OBL LT Laterality: LEFT Number of different views (projections): 3 M: XB_1 COMPARISON: None RESULT: Mild hallux valgus. Postoperative changes of healed calcaneal osteotomy with associated intact 2 threaded screws. Achilles and plantar calcaneal enthesophytes are noted. Mild narrowing of first metatarsophalangeal joint. Mild narrowing of talonavicular joint with small osteophytes and navicular subchondral cyst. Ankle mortise is intact. Deformity of distal fibular tip is consistent with remote injury. No other significant abnormality. IMPRESSION: Posttraumatic, degenerative and postsurgical changes as described. 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: [facility] Transcribe Date/Time: Dec 20 2017 12:20P Dictated by : JORGE BATES MD This examination was interpreted and the report reviewed and electronically signed by: JORGE BATES MD on Dec 20 2017 12:23PM EST [id number] XR FOOT 3V AP/LAT/OBL Observed: 12/20/2017 Status: F Source: [facility] 10:51 AM [facility] [facility] REPOSITORY * * *Final Report* * * DATE OF EXAM: Dec 20 2017 10:51AM AOX [id number] - XR FOOT 3V AP/LAT/OBL LT / PROCEDURE REASON: Pain in left ankle and joints of left foot * * * * Physician Interpretation * * * * EXAMINATION: XR FOOT 3V AP/LAT/OBL LT, XR ANKLE 3V AP/LAT/OBL LT HISTORY: Left foot ankle ankle tear 12-15 years ago resulting in surgery. Pain Pain in left ankle and joints of left foot . TECHNIQUE: XR FOOT 3V AP/LAT/OBL LT, XR ANKLE 3V AP/LAT/OBL LT Laterality: LEFT Number of different views (projections): 3 M: XB_1 COMPARISON: None RESULT: Mild hallux valgus. Postoperative changes of healed calcaneal osteotomy with associated intact 2 threaded screws. Achilles and plantar calcaneal enthesophytes are noted. Mild narrowing of first metatarsophalangeal joint. Mild narrowing of talonavicular joint with small osteophytes and navicular subchondral cyst. Ankle mortise is intact. Deformity of distal fibular tip is consistent with remote injury. No other significant abnormality. IMPRESSION: Posttraumatic, degenerative and postsurgical changes as described. 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: [facility] Transcribe Date/Time: Dec 20 2017 12:20P Dictated by : JORGE BATES MD This examination was interpreted and the report reviewed and electronically signed by: JORGE BATES MD on Dec 20 2017 12:23PM EST [id number] PROGRESS Observed: 12/20/2017 Status: COMPLETED Source: [place] 10:50 AM [facility] REPOSITORY HNO ID: [id number] Author: Nestor MinorRt) Thao Dalton Service: Radiology Author Type: Balance Recesser Type: Progress Notes Filed: 12/20/2017 10:50 AM Note Text: Radiology Service Progress Note PATIENT NAME: Ralph Joshi DATE OF SERVICE: December 20, 2017 TIME: 10:50 AM PATIENT IDENTITY VERIFICATION COMPLETED USING TWO (2) METHODS: Patient confirmed name verbally and Date of . PATIENT GENDER DATA: Female. status: : No status: NO. PATIENT RELEVANT IMPLANT DATA REVIEWED: Yes RADIOLOGY DEPARTMENT: General X-ray: Exam(s) Completed: Lower Extremity X-Ray(s): Ankle, Left and Wt. Bearing and Foot, Left and Wt. Bearing: PERIPHERAL IV DATA: Not applicable SIGNED BY: RT Peyman December 20, 2017 10:50 AM PROGRESS Observed: 12/04/2017 Status: COMPLETED Source: [place] 2:03 PM [facility] REPOSITORY HNO ID: [id number] Author: Juanjose Manzano Service: (none) Author Type: Physician Type: Progress Notes Filed: 12/04/2017 5:11 PM Note Text: PERTINENT CARDIAC HISTORY Chest pain - normal stress, no cath HTN HL THONY - allergy to mask Multiple drug allergies - anaphylaxis ADHERENCE TO GUIDELINES MARCO-I or ARB for HF with prior LVEF<40 (NQF 0081) - N/A ASA or Plavix for ASHD (NQF 0067) - allergy Beta romi for ASHD with prior TN or prior LVEF<40 (NQF 0070) - N/A Beta romi for HF with prior LVEF<40 (NQ 0083) - N/A MARCO-I or ARB for ASHD with DM or prior LVEF<40 (NQF 0066) - N/A Statin therapy for ASHD or FHL or DM - met BMI documented and plan if >25 ([facility] 0421) - lifestyle recommendation form Tobacco use screening and referral ([facility] 0028) - lifestyle recommendation form Recommendation for whole food, plant based diet - lifestyle recommendation form CLINICAL IMPRESSION/PLAN: Ralph Joshi is doing well. She has been advised not to use beta blockers in the future. She'll continue to use when necessary nitrates. I will see her in 8 months or as needed. If she has decreased exercise tolerance or increase in her chest pain pattern, she has been advised to contact me. Written and verbal health teaching given to patient, patient verbalizes understanding and agrees with treatment plan. DIAGNOSIS FOR VISIT: Chest pain the Hypertension HISTORY OF PRESENT ILLNESS Ralph Joshi returns for follow-up of her chest pain syndrome. She reports stable exercise pattern. She is rarely taking nitroglycerin. Her pain pattern has been stable over the past year. She recently had a bee sting which required a total of 4 EpiPen shots. Despite this, she has no chest discomfort during the episode. At some point she was placed on atenolol but has subsequently been taken off. She should not be on beta romi with her need for epinephrine. She reports no orthopnea. Her edema is stable. She's had no syncope, palpitations, TIAs, amaurosis. ALLERGIES: ALLERGIES Allergen Reactions - Avocado Anaphylaxis - Banana Anaphylaxis - Carbinoxamine Anaphylaxis - Yoselin Seed Anaphylaxis - Ciprofloxacin Anaphylaxis - Codeine Anaphylaxis - Contrast Dye Anaphylaxis To MRI and CT - Fish Anaphylaxis - Hycodan [Hydrocodon* Anaphylaxis Face and throat swelling - Latex Anaphylaxis - Imtiaz-Synephrine [Phe* Anaphylaxis 10% eye drop - Nickel Rash, Hives, Anaphylaxis - Nsaids (Non-Steroid* Other: See Comments Kidney function drops; reversible kidney damage. - Oxycodone Anaphylaxis - Periactin [Cyprohep* Anaphylaxis - Pneumococcal Vaccine Anaphylaxis - Shellfish Anaphylaxis - Zantac [Ranitidine] Anaphylaxis - Ativan [Lorazepam] Other: See Comments hallucination - Bee Sting Anaphylaxis - Beef Containing Pro* Rash - Berino Other: See Comments Feels like an asthma attack. - Eggs [Egg] Rash, Vomiting - Ekg Leads [Adhesive] Rash Localized,only under the leads - Environmental [Othe* Other: See Comments Nasal congestion, brings on an asthma attack. - Influenza Virus Vac* Shortness of Breath - Lisinopril Cough - Milk Rash, Vomiting - Mometasone Anaphylaxis Per Dr. Salas she tolerates formoterol (on Breo at home) but is allergic to mometasone. Okayed by him to update. - Surgical Tape [Othe* Rash, Swelling Oral rash, swelling of eyes, asthma attacks; per pateint report. - Xolair [Omalizumab] Shortness of Breath CURRENT OUTPATIENT MEDICATIONS: triamcinolone acetonide (KENALOG) 0.1 % cream Apply 1 application to affected area three times daily. Apply to affected area. Location: arms doxazosin (CARDURA) 4 mg tablet Take 1 tablet by mouth once daily. amLODIPine (NORVASC) 10 mg tablet Take 1 tablet by mouth once daily. COMPOUNDED PRESCRIPTION Please fit for CPAP mask. Patient with previous allergic/anaphylaxis reaction to mask. DME: [facility]. cromolyn (INTAL) 20 mg/2 mL nebulizer solution Use 20 mg via nebulizer three times daily. EPINEPHrine (EPIPEN) 0.3 mg/0.3 mL auto-injector Inject 0.3 mL intramuscularly as needed. Inject full content of the syringe. diphenhydrAMINE (BENADRYL) 25 mg tablet Take 1 tablet by mouth every 6 hours as needed for Itching/Rash. pregabalin (LYRICA) 150 mg capsule Take 1 capsule by mouth twice daily for 181 days. atorvastatin (LIPITOR) 20 mg tablet One tab on MWF only spironolactone (ALDACTONE) 50 mg tablet Take 1 tablet by mouth twice daily. lansoprazole (PREVACID) 30 mg capsule TAKE 1 CAPSULE TWICE A DAY bumetanide (BUMEX) 0.5 mg tablet Take 1 tablet by mouth once daily. nitroglycerin sublingual (NITROQUICK) 0.4 mg SL tablet DISSOLVE 1 TABLET UNDER THE TONGUE NEEDED FOR CHEST PAIN, IF NO RELIEF CALL 911 albuterol HFA (PROAIR HFA) 90 mcg/actuation inhaler Inhale 2 Puffs as instructed every 6 hours as needed for Wheezing/Shortness of Breath. fluticasone-vilanterol (BREO ELLIPTA) 100-25 mcg/dose inhaler Inhale 1 Inhalation as instructed once daily. levalbuterol (XOPENEX) 1.25 mg/3 mL nebulizer solution Use 1 Ampule via nebulizer every 4 hours as needed. Inhale over 5-15 minutes fluticasone (FLONASE) 50 mcg/actuation nasal spray 1-2 sprays each side qd budesonide (PULMICORT) 0.5 mg/2 mL nebulizer solution Use 1 Ampule via nebulizer twice daily. Azelastine 0.15 % (205.5 mcg) spry Use 1 Wilberforce in each nostril twice daily. COMPOUNDED PRESCRIPTION Nocturnal oximetry on room air. DME: [facility] cholestyramine-sucrose (QUESTRAN) 4 gram powder Take 1 scoop by mouth once daily. cyanocobalamin (VITAMIN B-12) 1,000 mcg tab Take 1 tablet by mouth once daily. atenolol (TENORMIN) 25 mg tablet Take 1 tablet by mouth once daily. ergocalciferol, vitamin D2, (VITAMIN D) 50,000 unit capsule Take 1 capsule by mouth once each week. TURMERIC ROOT EXTRACT ORAL Take 1 tablet by mouth twice daily. crisaborole (EUCRISA) 2 % oint Apply to the hands twice daily COMPOUNDED PRESCRIPTION Please provide patient with nebulizer machine and supplies.Diagnosis: Severe Asthma. cetirizine (ZYRTEC) 10 mg tablet Take 10 mg by mouth once daily. pimecrolimus (ELIDEL) 1 % cream Apply twice daily to the hands ondansetron (ZOFRAN) 4 mg tablet Take 1 tablet by mouth every 8 hours as needed. Benzonatate 200 mg capsule Take 200 mg by mouth three times daily as needed for Cough. lactobacillus rhamnosus (CULTURELLE) 10 billion cell capsule Take 1 capsule by mouth twice daily. amoxicillin (POLYMOX, AMOXIL) 250 mg capsule Take 250 mg by mouth once daily. zafirlukast (ACCOLATE) 20 mg tablet Take 1 tablet by mouth twice daily. cycloSPORINE Modified 50 mg capsule Take 50 mg by mouth twice daily. ascorbic acid (VITAMIN C) 500 mg tablet Take 1 tablet by mouth once daily. pregabalin (LYRICA) 150 mg capsule Take 1 capsule by mouth twice daily for 90 days. PHYSICAL EXAMINATION: VITAL SIGNS: BP 136/84 Pulse 80 Ht 5' 4 (1.63m) Wt 213 lb 4.8 oz (96.8kg) LMP 08/07/2013 BMI 36.59 kg/(m2). Chest: Clear to percussion and auscultation. Trachea is midline. Air entry is equal. Cardiac: Regular rhythm. S1 and S2 are normal. PMI is nondisplaced. There is a soft systolic ejection murmur. Carotids are brisk without bruits. JVP is less than 10 cm. Abdomen: Soft and nontender. There are no pulsatile masses or bruits. No liver enlargement. Bowel sounds are active. Extremities: Trace edema. Pulses are intact and symmetrical. Recent labs reviewed. Renal function is normal. TSH normal. Recent EKG showed sinus rhythm within normal limits. Echocardiogram was recently performed and shows normal ejection fraction. There is no significant valvular disease. Electronically Signed: Juanjose Manzano MD December 04, 2017 2:03 PM CC: Anisa Caldwell MD CNOV Observed: 12/04/2017 Status: COMPLETED Source: [place] 1:45 PM [facility] REPOSITORY Office Visit (CAWSTR) RALPH JOSHI ([id number]) 1955 F Date Time Provider Department 12/04/17 1:45 PM JUANJOSE MANZANO CAWSTR During your visit today, we recorded the following information about you: Pulse Blood pressure Weight Height 80/minute 136/84 96.8 kg 1.626 m Juanjose Manzano MD 12/04/2017 5:11 PM Signed PERTINENT CARDIAC HISTORY Chest pain - normal stress, no cath HTN HL THONY - allergy to mask Multiple drug allergies - anaphylaxis ADHERENCE TO GUIDELINES MARCO-I or ARB for HF with prior LVEF<40 (NQF 0081) - N/A ASA or Plavix for ASHD (NQF 0067) - allergy Beta romi for ASHD with prior TN or prior LVEF<40 (NQF 0070) - N/A Beta romi for HF with prior LVEF<40 (NQF 0083) - N/A MARCO-I or ARB for ASHD with DM or prior LVEF<40 (NQF 0066) - N/A Statin therapy for ASHD or FHL or DM - met BMI documented and plan if >25 (NQF 0421) - lifestyle recommendation form Tobacco use screening and referral (NQF 0028) - lifestyle recommendation form Recommendation for whole food, plant based diet - lifestyle recommendation form CLINICAL IMPRESSION/PLAN: Ralph Joshi is doing well. She has been advised not to use beta blockers in the future. She'll continue to use when necessary nitrates. I will see her in 8 months or as needed. If she has decreased exercise tolerance or increase in her chest pain pattern, she has been advised to contact me. Written and verbal health teaching given to patient, patient verbalizes understanding and agrees with treatment plan. DIAGNOSIS FOR VISIT: Chest pain the Hypertension HISTORY OF PRESENT ILLNESS Ralph Joshi returns for follow-up of her chest pain syndrome. She reports stable exercise pattern. She is rarely taking nitroglycerin. Her pain pattern has been stable over the past year. She recently had a bee sting which required a total of 4 EpiPen shots. Despite this, she has no chest discomfort during the episode. At some point she was placed on atenolol but has subsequently been taken off. She should not be on beta romi with her need for epinephrine. She reports no orthopnea. Her edema is stable. She's had no syncope, palpitations, TIAs, amaurosis. ALLERGIES: ALLERGIES Allergen Reactions - Avocado Anaphylaxis - Banana Anaphylaxis - Carbinoxamine Anaphylaxis - Yoselin Seed Anaphylaxis - Ciprofloxacin Anaphylaxis - Codeine Anaphylaxis - Contrast Dye Anaphylaxis To MRI and CT - Fish Anaphylaxis - Hycodan [Hydrocodon* Anaphylaxis Face and throat swelling - Latex Anaphylaxis - Imtiaz-Synephrine [Phe* Anaphylaxis 10% eye drop - Nickel Rash, Hives, Anaphylaxis - Nsaids (Non-Steroid* Other: See Comments Kidney function drops; reversible kidney damage. - Oxycodone Anaphylaxis - Periactin [Cyprohep* Anaphylaxis - Pneumococcal Vaccine Anaphylaxis - Shellfish Anaphylaxis - Zantac [Ranitidine] Anaphylaxis - Ativan [Lorazepam] Other: See Comments hallucination - Bee Sting Anaphylaxis - Beef Containing Pro* Rash - Berino Other: See Comments Feels like an asthma attack. - Eggs [Egg] Rash, Vomiting - Ekg Leads [Adhesive] Rash Localized,only under the leads - Environmental [Othe* Other: See Comments Nasal congestion, brings on an asthma attack. - Influenza Virus Vac* Shortness of Breath - Lisinopril Cough - Milk Rash, Vomiting - Mometasone Anaphylaxis Per Dr. Salas she tolerates formoterol (on Breo at home) but is allergic to mometasone. Okayed by him to update. - Surgical Tape [Othe* Rash, Swelling Oral rash, swelling of eyes, asthma attacks; per pateint report. - Xolair [Omalizumab] Shortness of Breath CURRENT OUTPATIENT MEDICATIONS: triamcinolone acetonide (KENALOG) 0.1 % cream Apply 1 application to affected area three times daily. Apply to affected area. Location: arms doxazosin (CARDURA) 4 mg tablet Take 1 tablet by mouth once daily. amLODIPine (NORVASC) 10 mg tablet Take 1 tablet by mouth once daily. COMPOUNDED PRESCRIPTION Please fit for CPAP mask. Patient with previous allergic/anaphylaxis reaction to mask. DME: [facility]. cromolyn (INTAL) 20 mg/2 mL nebulizer solution Use 20 mg via nebulizer three times daily. EPINEPHrine (EPIPEN) 0.3 mg/0.3 mL auto-injector Inject 0.3 mL intramuscularly as needed. Inject full content of the syringe. diphenhydrAMINE (BENADRYL) 25 mg tablet Take 1 tablet by mouth every 6 hours as needed for Itching/Rash. pregabalin (LYRICA) 150 mg capsule Take 1 capsule by mouth twice daily for 181 days. atorvastatin (LIPITOR) 20 mg tablet One tab on MWF only spironolactone (ALDACTONE) 50 mg tablet Take 1 tablet by mouth twice daily. lansoprazole (PREVACID) 30 mg capsule TAKE 1 CAPSULE TWICE A DAY bumetanide (BUMEX) 0.5 mg tablet Take 1 tablet by mouth once daily. nitroglycerin sublingual (NITROQUICK) 0.4 mg SL tablet DISSOLVE 1 TABLET UNDER THE TONGUE NEEDED FOR CHEST PAIN, IF NO RELIEF CALL 911 albuterol HFA (PROAIR HFA) 90 mcg/actuation inhaler Inhale 2 Puffs as instructed every 6 hours as needed for Wheezing/Shortness of Breath. fluticasone-vilanterol (BREO ELLIPTA) 100-25 mcg/dose inhaler Inhale 1 Inhalation as instructed once daily. levalbuterol (XOPENEX) 1.25 mg/3 mL nebulizer solution Use 1 Ampule via nebulizer every 4 hours as needed. Inhale over 5-15 minutes fluticasone (FLONASE) 50 mcg/actuation nasal spray 1-2 sprays each side qd budesonide (PULMICORT) 0.5 mg/2 mL nebulizer solution Use 1 Ampule via nebulizer twice daily. Azelastine 0.15 % (205.5 mcg) spry Use 1 Wilberforce in each nostril twice daily. COMPOUNDED PRESCRIPTION Nocturnal oximetry on room air. DME: [facility] cholestyramine-sucrose (QUESTRAN) 4 gram powder Take 1 scoop by mouth once daily. cyanocobalamin (VITAMIN B-12) 1,000 mcg tab Take 1 tablet by mouth once daily. atenolol (TENORMIN) 25 mg tablet Take 1 tablet by mouth once daily. ergocalciferol, vitamin D2, (VITAMIN D) 50,000 unit capsule Take 1 capsule by mouth once each week. TURMERIC ROOT EXTRACT ORAL Take 1 tablet by mouth twice daily. crisaborole (EUCRISA) 2 % oint Apply to the hands twice daily COMPOUNDED PRESCRIPTION Please provide patient with nebulizer machine and supplies.Diagnosis: Severe Asthma. cetirizine (ZYRTEC) 10 mg tablet Take 10 mg by mouth once daily. pimecrolimus (ELIDEL) 1 % cream Apply twice daily to the hands ondansetron (ZOFRAN) 4 mg tablet Take 1 tablet by mouth every 8 hours as needed. Benzonatate 200 mg capsule Take 200 mg by mouth three times daily as needed for Cough. lactobacillus rhamnosus (CULTURELLE) 10 billion cell capsule Take 1 capsule by mouth twice daily. amoxicillin (POLYMOX, AMOXIL) 250 mg capsule Take 250 mg by mouth once daily. zafirlukast (ACCOLATE) 20 mg tablet Take 1 tablet by mouth twice daily. cycloSPORINE Modified 50 mg capsule Take 50 mg by mouth twice daily. ascorbic acid (VITAMIN C) 500 mg tablet Take 1 tablet by mouth once daily. pregabalin (LYRICA) 150 mg capsule Take 1 capsule by mouth twice daily for 90 days. PHYSICAL EXAMINATION: VITAL SIGNS: BP 136/84 Pulse 80 Ht 5' 4 (1.63m) Wt 213 lb 4.8 oz (96.8kg) LMP 08/07/2013 BMI 36.59 kg/(m2). Chest: Clear to percussion and auscultation. Trachea is midline. Air entry is equal. Cardiac: Regular rhythm. S1 and S2 are normal. PMI is nondisplaced. There is a soft systolic ejection murmur. Carotids are brisk without bruits. JVP is less than 10 cm. Abdomen: Soft and nontender. There are no pulsatile masses or bruits. No liver enlargement. Bowel sounds are active. Extremities: Trace edema. Pulses are intact and symmetrical. Recent labs reviewed. Renal function is normal. TSH normal. Recent EKG showed sinus rhythm within normal limits. Echocardiogram was recently performed and shows normal ejection fraction. There is no significant valvular disease. Electronically Signed: Juanjose Manzano MD December 04, 2017 2:03 PM CC: MD Jaunjose Duong MD 12/04/2017 2:03 PM Signed LIFESTYLE CHANGE A healthy lifestyle is the most important component of your overall treatment plan. Please give serious thought to the following areas and commit to making meterman changes. EAT A WHOLE FOOD, PLANT BASED DIET The nutrition your body gets is more important than the medicine you take. What matters most is the overall way you eat. We encourage you to minimize the use of animal products (which include dairy and all meats except fatty fish) and use whole, unprocessed plant foods to provide your protein, vitamins and other nutrients. We have a lot of information to share with you on this topic. This is not a diet. It is a way of life that you will keep with you. EXERCISE REGULARLY It is not important to spend hours in the gym, lifting weights and perspiring heavily. A total of 2-3 hours per week of aerobic (causing you to be moderately short of breath) exercise is sufficient to improve your health. Talk to us before you begin a new exercise program, if you have heart disease or experience shortness of breath or chest pain. REDUCE STRESS Chronic emotional and physical stress leads to disease. Ways of reducing stress include meditation, visualization, prayer, yoga and other forms of relaxation therapy. Consistency is the sam. Find a technique that works for you and do it every day. CULTIVATE RELATIONSHIPS Loneliness and isolation have a major negative impact on health. Seek out others who can love, care for and nurture you. Avoid hurtful relationships. MAINTAIN IDEAL BODY WEIGHT The best way to do this is to do all the things above. Our bodies naturally find the right weight if we keep moving and feed ourselves the right food. If your BMI is greater than 25, we strongly recommend a referral to a weight management program. Please speak to us or your family physician about available programs. AVOID NICOTINE IN ALL FORMS This includes all tobacco products, whether chewed, smoked, vaped, or rubbed on the skin. Smoking cessation programs, which can make use of tobacco substitutes, medications to suppress cravings and behavior management, are available. Please contact your family physician about programs in your area. Referring Provider: JUANJOSE MANZANO [[id number]] Allergies As of Date: 12/04/2017 Noted Allergy Reaction AVOCADO 09/10/2014 10 - Anaphylaxis BANANA 09/10/2014 10 - Anaphylaxis CARBINOXAMINE 09/17/2012 10 - Anaphylaxis YOSELIN SEED 08/28/2013 10 - Anaphylaxis CIPROFLOXACIN 04/11/2014 10 - Anaphylaxis CODEINE 01/12/2012 10 - Anaphylaxis CONTRAST DYE 05/17/2013 10 - Anaphylaxis Comments: To MRI and CT FISH 09/07/2014 10 - Anaphylaxis HYCODAN (HYDROCODONE-HOMATROPINE) 09/08/2011 10 - Anaphylaxis Comments: Face and throat swelling LATEX 01/21/2014 10 - Anaphylaxis IMTIAZ-SYNEPHRINE (PHENYLEPHRINE HCL)09/04/2014 10 - Anaphylaxis Comments: 10% eye drop NICKEL 01/07/2014 2 - Rash 4 - Hives 10 - Anaphylaxis NSAIDS (NON-STEROIDAL ANTI-INFLAM*08/16/2010 14 - Other: See Comments Comments: Kidney function drops; reversible kidney damage. OXYCODONE 08/28/2013 10 - Anaphylaxis PERIACTIN (CYPROHEPTADINE) 09/17/2012 10 - Anaphylaxis PNEUMOCOCCAL VACCINE 10/31/2014 10 - Anaphylaxis SHELLFISH 09/07/2014 10 - Anaphylaxis ZANTAC (RANITIDINE) 09/17/2012 10 - Anaphylaxis ATIVAN (LORAZEPAM) 08/28/2013 14 - Other: See Comments Comments: hallucination BEE STING 10/31/2017 10 - Anaphylaxis BEEF CONTAINING PRODUCTS 09/10/2014 2 - Rash CORN 05/03/2011 14 - Other: See Comments Comments: Feels like an asthma attack. EGGS (EGG) 03/08/2011 2 - Rash 11 - Vomiting EKG LEADS (ADHESIVE) 10/22/2012 2 - Rash Comments: Localized,only under the leads environmental [Other] 06/26/2007 14 - Other: See Comments Comments: Nasal congestion, brings on an asthma attack. INFLUENZA VIRUS VACCINES 10/22/2012 12 - Shortness of Breath LISINOPRIL 04/20/2004 3 - Cough MILK 03/08/2011 2 - Rash 11 - Vomiting MOMETASONE 04/05/2017 10 - Anaphylaxis Comments: Per Dr. Salas she tolerates formoterol (on Breo at home) but is allergic to mometasone. Okayed by him to update. surgical tape [Other] 11/10/2009 2 - Rash 7 - Swelling Comments: Oral rash, swelling of eyes, asthma attacks; per kia report. XOLAIR (OMALIZUMAB) 04/19/2012 12 - Shortness of Breath Date Reviewed: 12/04/2017 Reviewed by: Taty Alvarado MA - Fully Assessed Reason for Visit: Established Patient [175] Primary Visit Diagnosis:Hypertension, essential [I10] Other Visit Diagnosis:Chest pain, unspecified type [R07.9] Prescriptions as of 12/04/2017 Sig: TRIAMCINOLONE ACETONIDE 0.1 %* Apply 1 application to affect* DOXAZOSIN 4 MG TABLET Take 1 tablet by mouth once d* AMLODIPINE 10 MG TABLET Take 1 tablet by mouth once d* COMPOUNDED PRESCRIPTION Please fit for CPAP mask. Pat* CROMOLYN 20 MG/2 ML SOLUTION * Use 20 mg via nebulizer three* EPINEPHRINE 0.3 MG/0.3 ML INJ* Inject 0.3 mL intramuscularly* DIPHENHYDRAMINE 25 MG TABLET Take 1 tablet by mouth every * PREGABALIN 150 MG CAPSULE Take 1 capsule by mouth twice* ATORVASTATIN 20 MG TABLET One tab on MWF only SPIRONOLACTONE 50 MG TABLET Take 1 tablet by mouth twice * LANSOPRAZOLE 30 MG CAPSULE,DE* TAKE 1 CAPSULE TWICE A DAY BUMETANIDE 0.5 MG TABLET Take 1 tablet by mouth once d* NITROGLYCERIN 0.4 MG SUBLINGU* DISSOLVE 1 TABLET UNDER THE T* ALBUTEROL SULFATE HFA 90 MCG/* Inhale 2 Puffs as instructed * FLUTICASONE 100 MCG-VILANTERO* Inhale 1 Inhalation as instru* Patient taking differently: Inhale 2 Inhalation as instru* LEVALBUTEROL 1.25 MG/3 ML BRENDA* Use 1 Ampule via nebulizer ev* FLUTICASONE 50 MCG/ACTUATION * 1-2 sprays each side qd BUDESONIDE 0.5 MG/2 ML SUSPEN* Use 1 Ampule via nebulizer tw* AZELASTINE 0.15 % (205.5 MCG)* Use 1 Wilberforce in each nostril t* COMPOUNDED PRESCRIPTION Nocturnal oximetry on room ai* CHOLESTYRAMINE (WITH SUGAR) 4* Take 1 scoop by mouth once da* CYANOCOBALAMIN (VIT B-12) 1,0* Take 1 tablet by mouth once d* ATENOLOL 25 MG TABLET Take 1 tablet by mouth once d* ERGOCALCIFEROL (VITAMIN D2) 5* Take 1 capsule by mouth once * Patient taking differently: Take 50,000 Units by mouth on* TURMERIC ROOT EXTRACT ORAL Take 1 tablet by mouth twice * CRISABOROLE 2 % TOPICAL OINTM* Apply to the hands twice daily COMPOUNDED PRESCRIPTION Please provide patient with n* CETIRIZINE 10 MG TABLET Take 10 mg by mouth once mary ellen* PIMECROLIMUS 1 % TOPICAL CREAM Apply twice daily to the hands ONDANSETRON HCL 4 MG TABLET Take 1 tablet by mouth every * BENZONATATE 200 MG CAPSULE Take 200 mg by mouth three ti* LACTOBACILLUS RHAMNOSUS GG 10* Take 1 capsule by mouth twice* AMOXICILLIN 250 MG CAPSULE Take 250 mg by mouth once ilam* ZAFIRLUKAST 20 MG TABLET Take 1 tablet by mouth twice * CYCLOSPORINE MODIFIED 50 MG C* Take 50 mg by mouth twice liam* ASCORBIC ACID (VITAMIN C) 500* Take 1 tablet by mouth once d* PREGABALIN 150 MG CAPSULE Take 1 capsule by mouth twice* Problem List As Of Date 12/04/2017 Noted Resolved JOINT PAIN-ANKLE [M25.579] INVALID FOR*03/20/2014 Edema [R60.9] INVALID FOR*03/28/2016 Priority: I Adrenal nodule (HCC) [E27.9] INVALID FOR* More... Diarrhea [R19.7] INVALID FOR*10/15/2013 Excessive or frequent menstruation [N92.0] INVALID FOR*07/14/2011 Shortness of breath [R06.02] INVALID FOR*10/15/2013 Palpitations [R00.2] INVALID FOR*03/20/2014 Tachycardia, unspecified [R00.0] INVALID FOR*10/15/2013 More... Open wound site NOS [T14.8XXA] INVALID FOR*07/16/2011 Abdominal pain, right upper quadrant [R10.11] INVALID FOR*07/14/2011 More... Acute gastritis without mention of hemorrhage [*INVALID FOR*10/15/2013 Hematuria [599.7] INVALID FOR*07/14/2011 URGE INCONTINENCE [N39.41] INVALID FOR* FEMALE STRESS INCONTINENCE [N39.3] INVALID FOR* Scar, hypertrophic [L91.0] INVALID FOR*10/15/2013 Ovarian cyst [N83.209] INVALID FOR*07/06/2010 Cyst INVALID FOR*10/15/2013 Other specified pre-operative examination [Z01.*INVALID FOR*07/16/2011 Hirsutism [L68.0] INVALID FOR* Dysphagia [R13.10] INVALID FOR*03/20/2014 GERD (gastroesophageal reflux disease) [K21.9] INVALID FOR* Priority: D More... 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 Obesity (BMI 30.0-34.9) [E66.9] INVALID FOR* More... More... More... More... Idiopathic anaphylaxis [T78.2XXA] INVALID FOR* Priority: A More... Urticaria, idiopathic [L50.1] INVALID FOR*03/28/2016 More... Hyperlipidemia LDL goal <100 [E78.5] INVALID FOR* Impaired fasting glucose [R73.01] INVALID FOR* Recurrent chest pain [R07.9, G89.29] INVALID FOR*12/09/2014 Multinodular goiter [E04.2] INVALID FOR* More... CKD (chronic kidney disease) stage 3, GFR 30-59*INVALID FOR* Pain in joint, ankle and foot [M25.579] INVALID FOR*12/09/2014 More... More... Steroid-induced hyperglycemia [R73.9, T38.0X5A] INVALID FOR*03/28/2016 Priority: C Moderate persistent asthma without complication*INVALID FOR* Ulcerative colitis without complications (HCC) *INVALID FOR* Anaphylaxis [T78.2XXA] INVALID FOR*03/26/2015 More... Neck pain, bilateral [M54.2] INVALID FOR*03/28/2016 Essential hypertension with goal blood pressure*INVALID FOR*03/28/2016 Chronic nausea [R11.0] INVALID FOR* Lumbar radiculitis [M54.16] INVALID FOR*03/28/2016 Lumbar stenosis [M48.061] INVALID FOR*03/28/2016 Acquired spondylolisthesis [M43.10] INVALID FOR*03/28/2016 Cervical radiculitis [M54.12] INVALID FOR*03/28/2016 Cervical spondylosis with radiculopathy [M47.22]INVALID FOR*03/29/2017 Shoulder impingement [M75.40] INVALID FOR*03/28/2016 Anaphylaxis [T78.2XXA] INVALID FOR*03/28/2016 Tendonitis, tibialis [M76.829] INVALID FOR*05/09/2016 Lumbar stenosis [M48.061] INVALID FOR* Cervical radiculitis [M54.12] INVALID FOR*03/29/2017 Cervical herniated disc [M50.20] INVALID FOR*03/29/2017 Cervical stenosis of spine [M48.02] INVALID FOR* Cervical spondylosis with myelopathy [M47.12] INVALID FOR*03/29/2017 Cervical myelopathy (HCC) [G95.9] INVALID FOR*03/29/2017 Claustrophobia [F40.240] INVALID FOR* Ptosis of eyelid, bilateral [H02.403] INVALID FOR*03/29/2017 More... Lumbar spondylosis [M47.816] INVALID FOR* More... Preop testing [Z01.818] INVALID FOR* More... Anaphylaxis [T78.2XXA] INVALID FOR* Essential hypertension [I10] INVALID FOR* Peroneal tendinitis, left [M76.72] INVALID FOR* Other instructions from your clinician: LIFESTYLE CHANGE A healthy lifestyle is the most important component of your overall treatment plan. Please give serious thought to the following areas and commit to making met[place] changes. EAT A WHOLE FOOD, PLANT BASED DIET The nutrition your body gets is more important than the medicine you take. What matters most is the overall way you eat. We encourage you to minimize the use of animal products (which include dairy and all meats except fatty fish) and use whole, unprocessed plant foods to provide your protein, vitamins and other nutrients. We have a lot of information to share with you on this topic. This is not a diet. It is a way of life that you will keep with you. EXERCISE REGULARLY It is not important to spend hours in the gym, lifting weights and perspiring heavily. A total of 2-3 hours per week of aerobic (causing you to be moderately short of breath) exercise is sufficient to improve your health. Talk to us before you begin a new exercise program, if you have heart disease or experience shortness of breath or chest pain. REDUCE STRESS Chronic emotional and physical stress leads to disease. Ways of reducing stress include meditation, visualization, prayer, yoga and other forms of relaxation therapy. Consistency is the sam. Find a technique that works for you and do it every day. CULTIVATE RELATIONSHIPS Loneliness and isolation have a major negative impact on health. Seek out others who can love, care for and nurture you. Avoid hurtful relationships. MAINTAIN IDEAL BODY WEIGHT The best way to do this is to do all the things above. Our bodies naturally find the right weight if we keep moving and feed ourselves the right food. If your BMI is greater than 25, we strongly recommend a referral to a weight management program. Please speak to us or your family physician about available programs. AVOID NICOTINE IN ALL FORMS This includes all tobacco products, whether chewed, smoked, vaped, or rubbed on the skin. Smoking cessation programs, which can make use of tobacco substitutes, medications to suppress cravings and behavior management, are available. Please contact your family physician about programs in your area. Encounter Status:Closed by JUANJOSE MANZANO MD on 12/04/17 MICHELL Observed: 11/28/2017 Status: COMPLETED Source: [place] 12:10 PM [facility] REPOSITORY Office Visit (SPMETW) RALPH JOSHI ([id number]) 1955 F Date Time Provider Department 11/28/17 12:10 PM ABELINO MCELROY ([facility]) SPMETW During your visit today, we recorded the following information about you: Temperature Weight Height 98.2 degrees 97.1 kg 1.626 m Abelino Mcelroy APRN.CIRCUIT RECORDER 11/29/2017 8:47 AM Signed SPINE CARE PATH LOW BACK PAIN: CHRONIC FOLLOW UP SUBJECTIVE HISTORY OF PRESENT ILLNESS: Reason for Visit: chronic low back pain, both legs. Ralph Joshi is seen for chronic low back pain, both legs, equally, back of the legs, at times weakness experienced with stairs. Rates total pain today as 3/10, with increasing with movement, walking/standing, climbing stairs. Pt does state she feels weak in the legs. Pt does state she has some loss of bladder control, for about a year. Denies history of cancer. Denies any blood thinning medication. PED RED FLAGS YELLOW AND BLUE FLAGS Yes: Provider notified No-Significant Injury to Spine No-Use of Steroids for Prolonged Duration No-Loss of Bowel/Bladder Control, Genital/Anal Numbness No-Recent Use of Intravenous (IV) Drugs No-Difficulty Keeping Balance when Walking No-Progressive Weakness in Arms/Legs No-History of Any Type of Cancer No-Unable to Find Position of Comfort No-Pain at Night that Disturbs Sleep No-Recent Elevated Temp with Unknown Cause No-Diagnosed with Osteoporosis No-Unintentional Weight Loss or Gain No-Neg Attitude; Back Pain is Disabling No-Avoiding Activity (for Fear of Pain) No-Depression or Anxiety Disorders No-Social Problems No-Substance Use Disorder No-Job Dissatisfaction No-Financial Disincentives *PED (Patient Entered Data) osteoporosis flag will display for females 55 years or older and males 75 years or older. ACTIVE PROBLEM LIST Adrenal Nodule (Hcc) Urge Incontinence Female Stress Incontinence Hirsutism Gerd (Gastroesophageal Reflux Disease) THONY (obstructive sleep apnea) Obesity (Bmi 30.0-34.9) Idiopathic anaphylaxis Hyperlipidemia Ldl Goal <100 Impaired Fasting Glucose Multinodular Goiter CKD (chronic kidney disease) stage 3, GFR 30-59 ml/min ([facility]) Moderate Persistent Asthma Without Complication Ulcerative Colitis Without Complications ([facility]) Chronic Nausea Lumbar Stenosis Cervical Stenosis of Spine Claustrophobia Lumbar Spondylosis Preop Testing Anaphylaxis Essential Hypertension Peroneal Tendinitis, Left PAST MEDICAL HISTORY Diagnosis Date - Abdominal pain, other specified site - ACNE NEC 01/21/2008 - Actinic Keratosis (Premalignant AK) 06/05/2011 - ACUTE GASTRITIS W/O HEMORRHAGE 04/26/2007 - Allergic rhinitis 04/23/2012 - Anaphylactic reaction ideopathic - Benign tumor of adrenal gland - Biliary dyskinesia 10/29/2009 - Cervical herniated disc 10/20/2016 - Cervical myelopathy (HCC) 10/25/2016 - Cervical radiculitis 10/20/2016 - Cervical spondylosis with radiculopathy 11/17/2015 - JAIN ANGIOMA///NEVUS, NON-NEOPLASTIC 05/28/2007 - CKD (chronic kidney disease) stage 3, GFR 30-59 ml/min ([facility]) 04/29/2013 - Diaphragmatic hernia without mention of obstruction or gangrene 05/25/2011 - Diverticulosis of colon (without mention of hemorrhage) - Edema 07/07/2004 - Epigastric pain - GERD (gastroesophageal reflux disease) - HTN (hypertension) 2002 controlled on Diovan - Hyperlipidemia 10/15/2013 - IRON DEFIC ANEMIA NOS 04/26/2007 - Moderate persistent asthma without complication 02/18/2015 - Ovarian cyst Benign ovarian cyst, S/P laparoscopic LSO - Ptosis of eyelid, bilateral 12/23/2016 Added automatically from request for surgery [id number] - Shoulder impingement 11/17/2015 - Sleep apnea intollerant to CPAP because allergic to material on mask - Steroid-induced hyperglycemia 09/06/2014 - TACHYCARDIA NOS 01/09/2006 - Tarsal tunnel syndrome 12/23/2009 - Tear of lateral meniscus of knee 02/21/2014 - Ulcerative colitis, unspecified - UTERINE LEIOMYOMA NOS 12/23/2005 - VIRAL WARTS NOS 05/09/2006 - Vocal cord dysfunction PAST SURGICAL HISTORY Procedure Laterality Date - CHOLECYSTECTOMY HX - COLONOSCOP W/ OR W/O [facility] SPEC 09/06/2005 Colonoscopy - COLONOSCOP W/ OR W/O [facility] SPEC Colonoscopy - COLONOSCOP W/ OR W/O [facility] SPEC 05/28/2012 Colonoscopy repeat 5 years. - EGD 07/29/14 normal - EGD W/O OR W/BRUSH/WASH 09/06/2005 EGD - EGD W/O OR W/BRUSH/WASH 04/26/2007 EGD - EGD W/O OR W/BRUSH/WASH 05/25/2011 EGD - EGD W/O OR W/BRUSH/WASH 05/28/2012 EGD - L'SCOPE REM ADNEX W/PART/TOT OOPH/SALP 06/11/2009 Laparoscopic LSO for benign ovarian cyst - LAMINECTOMY,CERVICAL 10/2016 - LAP CHOLECYSTECT/CHOLANGIOGRAPHY 10/30/09 Normal IOC - ORTHOPEDICS SURGERY HX 12/2013 repaired Rt achilles tendon - PAST SURGICAL HISTORY OF 09/19 left foot surgery on heel and repaired torn tdndon - SIGMOIDOSCOPY FLEX DIAG 05/20/08 - TARSAL TUNNEL RELEASE 07/2010 Left foot Social History Marital status: Spouse name: Ezio Years of education: 14 Number of children: 3 Occupational History 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 Alive at 85. - Hypertension Father Alive at 85. - Cataract Father Alive at 85. - Thyroid Father Alive at 85. - Heart Father [place] at 87 - Diabetes Mother colon polyps. age 72. - Hypertension Mother age 72. - other (benign brainstem tumor) Mother Persistent vegetative state. age 72. - defects Sister - Glaucoma Maternal Grandmother - Stroke Maternal Grandfather - Cancer Paternal Grandmother cervical - Colon Cancer Son 38 colon and rectal cancer - Breast Cancer Sister Developed in late 20s. Alive at 52. - Osteoporosis Sister - other (colon polyps) Sister 3 sisters with colon polyps ALLERGIES Allergen Reactions - Avocado Anaphylaxis - Banana Anaphylaxis - Carbinoxamine Anaphylaxis - Yoselin Seed Anaphylaxis - Ciprofloxacin Anaphylaxis - Codeine Anaphylaxis - Contrast Dye Anaphylaxis To MRI and CT - Fish Anaphylaxis - Hycodan [Hydrocodon* Anaphylaxis Face and throat swelling - Latex Anaphylaxis - Imtiaz-Synephrine [Phe* Anaphylaxis 10% eye drop - Nickel Rash, Hives, Anaphylaxis - Nsaids (Non-Steroid* Other: See Comments Kidney function drops; reversible kidney damage. - Oxycodone Anaphylaxis - Periactin [Cyprohep* Anaphylaxis - Pneumococcal Vaccine Anaphylaxis - Shellfish Anaphylaxis - Zantac [Ranitidine] Anaphylaxis - Ativan [Lorazepam] Other: See Comments hallucination - Bee Sting Anaphylaxis - Beef Containing Pro* Rash - Berino Other: See Comments Feels like an asthma attack. - Eggs [Egg] Rash, Vomiting - Ekg Leads [Adhesive] Rash Localized,only under the leads - Environmental [Othe* Other: See Comments Nasal congestion, brings on an asthma attack. - Influenza Virus Vac* Shortness of Breath - Lisinopril Cough - Milk Rash, Vomiting - Mometasone Anaphylaxis Per Dr. Salas she tolerates formoterol (on Breo at home) but is allergic to mometasone. Okayed by him to update. - Surgical Tape [Othe* Rash, Swelling Oral rash, swelling of eyes, asthma attacks; per pateint report. - Xolair [Omalizumab] Shortness of Breath CURRENT MEDICATIONS: triamcinolone acetonide (KENALOG) 0.1 % cream Apply 1 application to affected area three times daily. Apply to affected area. Location: arms doxazosin (CARDURA) 4 mg tablet Take 1 tablet by mouth once daily. amLODIPine (NORVASC) 10 mg tablet Take 1 tablet by mouth once daily. COMPOUNDED PRESCRIPTION Please fit for CPAP mask. Patient with previous allergic/anaphylaxis reaction to mask. DME: [facility]. cromolyn (INTAL) 20 mg/2 mL nebulizer solution Use 20 mg via nebulizer three times daily. EPINEPHrine (EPIPEN) 0.3 mg/0.3 mL auto-injector Inject 0.3 mL intramuscularly as needed. Inject full content of the syringe. diphenhydrAMINE (BENADRYL) 25 mg tablet Take 1 tablet by mouth every 6 hours as needed for Itching/Rash. pregabalin (LYRICA) 150 mg capsule Take 1 capsule by mouth twice daily for 181 days. pregabalin (LYRICA) 150 mg capsule Take 1 capsule by mouth twice daily for 90 days. atorvastatin (LIPITOR) 20 mg tablet One tab on MWF only spironolactone (ALDACTONE) 50 mg tablet Take 1 tablet by mouth twice daily. lansoprazole (PREVACID) 30 mg capsule TAKE 1 CAPSULE TWICE A DAY bumetanide (BUMEX) 0.5 mg tablet Take 1 tablet by mouth once daily. nitroglycerin sublingual (NITROQUICK) 0.4 mg SL tablet DISSOLVE 1 TABLET UNDER THE TONGUE NEEDED FOR CHEST PAIN, IF NO RELIEF CALL 911 albuterol HFA (PROAIR HFA) 90 mcg/actuation inhaler Inhale 2 Puffs as instructed every 6 hours as needed for Wheezing/Shortness of Breath. fluticasone-vilanterol (BREO ELLIPTA) 100-25 mcg/dose inhaler Inhale 1 Inhalation as instructed once daily. levalbuterol (XOPENEX) 1.25 mg/3 mL nebulizer solution Use 1 Ampule via nebulizer every 4 hours as needed. Inhale over 5-15 minutes fluticasone (FLONASE) 50 mcg/actuation nasal spray 1-2 sprays each side qd budesonide (PULMICORT) 0.5 mg/2 mL nebulizer solution Use 1 Ampule via nebulizer twice daily. Azelastine 0.15 % (205.5 mcg) spry Use 1 Wilberforce in each nostril twice daily. COMPOUNDED PRESCRIPTION Nocturnal oximetry on room air. DME: [facility] cholestyramine-sucrose (QUESTRAN) 4 gram powder Take 1 scoop by mouth once daily. cyanocobalamin (VITAMIN B-12) 1,000 mcg tab Take 1 tablet by mouth once daily. atenolol (TENORMIN) 25 mg tablet Take 1 tablet by mouth once daily. ergocalciferol, vitamin D2, (VITAMIN D) 50,000 unit capsule Take 1 capsule by mouth once each week. TURMERIC ROOT EXTRACT ORAL Take 1 tablet by mouth twice daily. crisaborole (EUCRISA) 2 % oint Apply to the hands twice daily COMPOUNDED PRESCRIPTION Please provide patient with nebulizer machine and supplies.Diagnosis: Severe Asthma. cetirizine (ZYRTEC) 10 mg tablet Take 10 mg by mouth once daily. pimecrolimus (ELIDEL) 1 % cream Apply twice daily to the hands ondansetron (ZOFRAN) 4 mg tablet Take 1 tablet by mouth every 8 hours as needed. Benzonatate 200 mg capsule Take 200 mg by mouth three times daily as needed for Cough. lactobacillus rhamnosus (CULTURELLE) 10 billion cell capsule Take 1 capsule by mouth twice daily. amoxicillin (POLYMOX, AMOXIL) 250 mg capsule Take 250 mg by mouth once daily. zafirlukast (ACCOLATE) 20 mg tablet Take 1 tablet by mouth twice daily. cycloSPORINE Modified 50 mg capsule Take 50 mg by mouth twice daily. ascorbic acid (VITAMIN C) 500 mg tablet Take 1 tablet by mouth once daily. REVIEW OF SYSTEMS: GENERAL: No weight loss or malaise MUSCULOSKELETAL: Negative for joint pain, swelling or muscle pain NEURO: No history of headaches, syncope, paralysis, seizures or tremors OBJECTIVE PHYSICAL EXAM: Temp 36.8 ?C (98.2 ?F) Ht 162.6 cm (5' 4) Wt 97.1 kg (214 lb) LMP 08/07/2013 BMI 36.73 kg/m? GENERAL APPEARANCE: Moderately obese. NEURO PSYCH: Patient oriented to person, place, and time. Mood pleasant. Benign affect. CARDIOVASCULAR: Palpable pulses. No edema noted. No varicosities. SKIN: Head, neck, trunk, and extremities dry, intact and without lesions. LYMPHATICS: No palpable nodes in cervical or axillae areas. Groin exam deferred. MUSCULOSKELETAL VISUAL INSPECTION CERVICAL: WNL THORACIC: WNL LUMBAR: WNL PALPATION: SPINOUS PROCESS: No pain. PARASPINALS: No pain. SPINE ROM: LUMBAR ROM: Full ROM Without Pain CERVICAL ROM: Full ROM Without Pain MUSCLE BULK: Normal and symmetrical in the upper AND lower extremities. MUSCLE TONE: Normal. MOTOR: 5/5 in all muscle groups. SENSORY: Normal sensory exam GAIT: Normal. Heel walk, toe walk, duck walk and jump with good strength. REFLEXES: +2 to bilateral U/L extremities. PROPRIOCEPTION: Normal. LONG TRACT SIGNS: No clonus. No Hoffmans. BABINSKI: Downward response STRAIGHT LEG TEST: Ipsilateral: Negative. Contralateral: Negative. PERIPHERAL JOINT ROM: HIP ROM: Full ROM Without Pain SHOULDER ROM: Full ROM Without Pain L'HERMITTES SIGN: Negative on the right. Negative on the left. SPURLING'S TEST: Negative on the right. Negative on the left. Neuro Tests: Paraspinal soft tissues: ? ?Paraspinal soft tissues are within normal limits. Lower thoracic spine: ?Visualized lower thoracic canal and foramina are patent. T12-L1: ?Canal and foramina are patent. L1-L2: ? ?Mild bulging annulus and mild facet degenerative change. ?No canal stenosis. ?Mild right foraminal narrowing. L2-L3: ? ?Bulging annulus and moderate facet degenerative change. ? Moderate canal stenosis. ?Mild bilateral inferior foraminal narrowing. L3-L4: ? ?Bulging annulus and mild to moderate facet degenerative change. ?Severe canal stenosis. ?Moderate right and mild left foraminal narrowing. L4-L5: ? ?Bulging annulus and moderate to severe facet degenerative change. ?Moderate canal stenosis. ?Moderate bilateral foraminal narrowing. L5-S1: ? ?Mild bulging annulus and mild facet degenerative change. ?Mild left inferior foraminal narrowing. ?No canal stenosis or right foraminal narrowing. Sacrum and iliac wings: ? ?The visualized sacrum and iliac wings are within normal limits. ASSESSMENT/PLAN (M51.16) Intervertebral disc disorder with radiculopathy of lumbar region (primary encounter diagnosis) Comment: 62 year old female with leg pain returning today for follow up Plan: PATIENT PLACED ON SPINE CARE PATH, CONSULT TO SPINE INTERVENTION LESI reordered today, along with instructions of medication instructions from allergists. Pt has received this epidural in the past which was very helpful for relief of pain. SIGNATURE: Abelino Mcelroy APRN.TISHA PATIENT NAME: Ralph Joshi DATE: November 28, 2017 TIME: 11:50 AM Abelino Mcelroy APRN.CIRCUIT RECORDER 11/28/2017 11:50 AM Signed Chronic Low Back Pain Overview: ? Eighty to 90 percent of people in the [place] will experience an episode of back pain at some time during their lives. ? Chronic back pain refers to an episode of pain that lasts longer than 12 weeks. ? Many times, a specific structural explanation for the pain is not found but medical treatment can successfully improve symptoms and allow return to normal activities. ? In the absence of major structural deformity, surgery is unlikely to be helpful in relieving back pain. Treatment: ? Back pain is almost always best treated with conservative (non-surgical) measures. ? Prolonged bed rest is not recommended and generally should not exceed 24-48 hours. Gradually resuming normal activities as soon as you are able is best. ? Your physician may recommend physical therapy to customize an active exercise program which will speed your recovery. ? Over the counter, non-prescription pain relievers such as acetaminophen (Tylenol) and ibuprofen may be used in your treatment of pain. Your physician may prescribe a non-steroidal anti-inflammatory drug (NSAID) to use as an alternative. ? Other medications, particularly antidepressants, may be prescribed for pain relief even in the absence of depression. ? Yoga, acupuncture, and massage are helpful in some persons with chronic back pain. ? Opioid or narcotic medications are not recommended, and you should refrain from the use of such medications. In fact, use of these drugs may prolong the amount of time it takes for you to recover. ? Spinal epidural injections (blocks) are not recommended for treatment of back pain. Injection of spinal joints (facets) is rarely recommended for treatment of spinal arthritis pain. Follow Up ? See your health care provider if: ? You experience fever ? The pain progressively worsens ? The pain progressively moves from your back into your leg(s) ? You notice progressive weakness in your legs ? You experience problems in your balance or walking ? You notice difficulty controlling your bowels or bladder These are warning signs or red flags that require prompt, urgent medical attention. For more information on low back pain, visit our website at [email or web address] and search lower back pain. SIGNATURE: Abelino Mcelroy APRN.TISHA PATIENT NAME: Ralph Joshi DATE: November 28, 2017 TIME: 11:50 AM Referring Provider: ABELINO MCELROY ([facility]) [[id number]] Allergies As of Date: 11/28/2017 Noted Allergy Reaction AVOCADO 09/10/2014 10 - Anaphylaxis BANANA 09/10/2014 10 - Anaphylaxis CARBINOXAMINE 09/17/2012 10 - Anaphylaxis YOSELIN SEED 08/28/2013 10 - Anaphylaxis CIPROFLOXACIN 04/11/2014 10 - Anaphylaxis CODEINE 01/12/2012 10 - Anaphylaxis CONTRAST DYE 05/17/2013 10 - Anaphylaxis Comments: To MRI and CT FISH 09/07/2014 10 - Anaphylaxis HYCODAN (HYDROCODONE-HOMATROPINE) 09/08/2011 10 - Anaphylaxis Comments: Face and throat swelling LATEX 01/21/2014 10 - Anaphylaxis IMTIAZ-SYNEPHRINE (PHENYLEPHRINE HCL)09/04/2014 10 - Anaphylaxis Comments: 10% eye drop NICKEL 01/07/2014 2 - Rash 4 - Hives 10 - Anaphylaxis NSAIDS (NON-STEROIDAL ANTI-INFLAM*08/16/2010 14 - Other: See Comments Comments: Kidney function drops; reversible kidney damage. OXYCODONE 08/28/2013 10 - Anaphylaxis PERIACTIN (CYPROHEPTADINE) 09/17/2012 10 - Anaphylaxis PNEUMOCOCCAL VACCINE 10/31/2014 10 - Anaphylaxis SHELLFISH 09/07/2014 10 - Anaphylaxis ZANTAC (RANITIDINE) 09/17/2012 10 - Anaphylaxis ATIVAN (LORAZEPAM) 08/28/2013 14 - Other: See Comments Comments: hallucination BEE STING 10/31/2017 10 - Anaphylaxis BEEF CONTAINING PRODUCTS 09/10/2014 2 - Rash CORN 05/03/2011 14 - Other: See Comments Comments: Feels like an asthma attack. EGGS (EGG) 03/08/2011 2 - Rash 11 - Vomiting EKG LEADS (ADHESIVE) 10/22/2012 2 - Rash Comments: Localized,only under the leads environmental [Other] 06/26/2007 14 - Other: See Comments Comments: Nasal congestion, brings on an asthma attack. INFLUENZA VIRUS VACCINES 10/22/2012 12 - Shortness of Breath LISINOPRIL 04/20/2004 3 - Cough MILK 03/08/2011 2 - Rash 11 - Vomiting MOMETASONE 04/05/2017 10 - Anaphylaxis Comments: Per Dr. Salas she tolerates formoterol (on Breo at home) but is allergic to mometasone. Okayed by him to update. surgical tape [Other] 11/10/2009 2 - Rash 7 - Swelling Comments: Oral rash, swelling of eyes, asthma attacks; per pateint report. XOLAIR (OMALIZUMAB) 04/19/2012 12 - Shortness of Breath Date Reviewed: 11/28/2017 Reviewed by: Cris Avendaño Ma - Fully Assessed Reason for Visit: Follow Up [171] Cmt: Back pain Primary Visit Diagnosis:Intervertebral disc disorder with radiculopathy of lumbar region [M51.16] Order(s):PATIENT PLACED ON SPINE CARE PATH [[id number]] Order #: [id number]: 1 CONSULT TO SPINE INTERVENTION [[id number]] Order #: [id number]: 1 Prescriptions as of 11/28/2017 Sig: TRIAMCINOLONE ACETONIDE 0.1 %* Apply 1 application to affect* DOXAZOSIN 4 MG TABLET Take 1 tablet by mouth once d* AMLODIPINE 10 MG TABLET Take 1 tablet by mouth once d* COMPOUNDED PRESCRIPTION Please fit for CPAP mask. Pat* CROMOLYN 20 MG/2 ML SOLUTION * Use 20 mg via nebulizer three* EPINEPHRINE 0.3 MG/0.3 ML INJ* Inject 0.3 mL intramuscularly* DIPHENHYDRAMINE 25 MG TABLET Take 1 tablet by mouth every * PREGABALIN 150 MG CAPSULE Take 1 capsule by mouth twice* PREGABALIN 150 MG CAPSULE Take 1 capsule by mouth twice* ATORVASTATIN 20 MG TABLET One tab on MWF only SPIRONOLACTONE 50 MG TABLET Take 1 tablet by mouth twice * LANSOPRAZOLE 30 MG CAPSULE,DE* TAKE 1 CAPSULE TWICE A DAY BUMETANIDE 0.5 MG TABLET Take 1 tablet by mouth once d* NITROGLYCERIN 0.4 MG SUBLINGU* DISSOLVE 1 TABLET UNDER THE T* ALBUTEROL SULFATE HFA 90 MCG/* Inhale 2 Puffs as instructed * FLUTICASONE 100 MCG-VILANTERO* Inhale 1 Inhalation as instru* Patient taking differently: Inhale 2 Inhalation as instru* LEVALBUTEROL 1.25 MG/3 ML BRENDA* Use 1 Ampule via nebulizer ev* FLUTICASONE 50 MCG/ACTUATION * 1-2 sprays each side qd BUDESONIDE 0.5 MG/2 ML SUSPEN* Use 1 Ampule via nebulizer tw* AZELASTINE 0.15 % (205.5 MCG)* Use 1 Wilberforce in each nostril t* COMPOUNDED PRESCRIPTION Nocturnal oximetry on room ai* CHOLESTYRAMINE (WITH SUGAR) 4* Take 1 scoop by mouth once da* CYANOCOBALAMIN (VIT B-12) 1,0* Take 1 tablet by mouth once d* ATENOLOL 25 MG TABLET Take 1 tablet by mouth once d* ERGOCALCIFEROL (VITAMIN D2) 5* Take 1 capsule by mouth once * Patient taking differently: Take 50,000 Units by mouth on* TURMERIC ROOT EXTRACT ORAL Take 1 tablet by mouth twice * CRISABOROLE 2 % TOPICAL OINTM* Apply to the hands twice daily COMPOUNDED PRESCRIPTION Please provide patient with n* CETIRIZINE 10 MG TABLET Take 10 mg by mouth once mary ellen* PIMECROLIMUS 1 % TOPICAL CREAM Apply twice daily to the hands ONDANSETRON HCL 4 MG TABLET Take 1 tablet by mouth every * BENZONATATE 200 MG CAPSULE Take 200 mg by mouth three ti* LACTOBACILLUS RHAMNOSUS GG 10* Take 1 capsule by mouth twice* AMOXICILLIN 250 MG CAPSULE Take 250 mg by mouth once liam* ZAFIRLUKAST 20 MG TABLET Take 1 tablet by mouth twice * CYCLOSPORINE MODIFIED 50 MG C* Take 50 mg by mouth twice liam* ASCORBIC ACID (VITAMIN C) 500* Take 1 tablet by mouth once d* Problem List As Of Date 11/28/2017 Noted Resolved JOINT PAIN-ANKLE [M25.579] INVALID FOR*03/20/2014 Edema [R60.9] INVALID FOR*03/28/2016 Priority: I Adrenal nodule (HCC) [E27.9] INVALID FOR* More... Diarrhea [R19.7] INVALID FOR*10/15/2013 Excessive or frequent menstruation [N92.0] INVALID FOR*07/14/2011 Shortness of breath [R06.02] INVALID FOR*10/15/2013 Palpitations [R00.2] INVALID FOR*03/20/2014 Tachycardia, unspecified [R00.0] INVALID FOR*10/15/2013 More... Open wound site NOS [T14.8XXA] INVALID FOR*07/16/2011 Abdominal pain, right upper quadrant [R10.11] INVALID FOR*07/14/2011 More... Acute gastritis without mention of hemorrhage [*INVALID FOR*10/15/2013 Hematuria [599.7] INVALID FOR*07/14/2011 URGE INCONTINENCE [N39.41] INVALID FOR* FEMALE STRESS INCONTINENCE [N39.3] INVALID FOR* Scar, hypertrophic [L91.0] INVALID FOR*10/15/2013 Ovarian cyst [N83.209] INVALID FOR*07/06/2010 Cyst INVALID FOR*10/15/2013 Other specified pre-operative examination [Z01.*INVALID FOR*07/16/2011 Hirsutism [L68.0] INVALID FOR* Dysphagia [R13.10] INVALID FOR*03/20/2014 GERD (gastroesophageal reflux disease) [K21.9] INVALID FOR* Priority: D More... 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 Obesity (BMI 30.0-34.9) [E66.9] INVALID FOR* More... More... More... More... Idiopathic anaphylaxis [T78.2XXA] INVALID FOR* Priority: A More... Urticaria, idiopathic [L50.1] INVALID FOR*03/28/2016 More... Hyperlipidemia LDL goal <100 [E78.5] INVALID FOR* Impaired fasting glucose [R73.01] INVALID FOR* Recurrent chest pain [R07.9, G89.29] INVALID FOR*12/09/2014 Multinodular goiter [E04.2] INVALID FOR* More... CKD (chronic kidney disease) stage 3, GFR 30-59*INVALID FOR* Pain in joint, ankle and foot [M25.579] INVALID FOR*12/09/2014 More... More... Steroid-induced hyperglycemia [R73.9, T38.0X5A] INVALID FOR*03/28/2016 Priority: C Moderate persistent asthma without complication*INVALID FOR* Ulcerative colitis without complications (HCC) *INVALID FOR* Anaphylaxis [T78.2XXA] INVALID FOR*03/26/2015 More... Neck pain, bilateral [M54.2] INVALID FOR*03/28/2016 Essential hypertension with goal blood pressure*INVALID FOR*03/28/2016 Chronic nausea [R11.0] INVALID FOR* Lumbar radiculitis [M54.16] INVALID FOR*03/28/2016 Lumbar stenosis [M48.061] INVALID FOR*03/28/2016 Acquired spondylolisthesis [M43.10] INVALID FOR*03/28/2016 Cervical radiculitis [M54.12] INVALID FOR*03/28/2016 Cervical spondylosis with radiculopathy [M47.22]INVALID FOR*03/29/2017 Shoulder impingement [M75.40] INVALID FOR*03/28/2016 Anaphylaxis [T78.2XXA] INVALID FOR*03/28/2016 Tendonitis, tibialis [M76.829] INVALID FOR*05/09/2016 Lumbar stenosis [M48.061] INVALID FOR* Cervical radiculitis [M54.12] INVALID FOR*03/29/2017 Cervical herniated disc [M50.20] INVALID FOR*03/29/2017 Cervical stenosis of spine [M48.02] INVALID FOR* Cervical spondylosis with myelopathy [M47.12] INVALID FOR*03/29/2017 Cervical myelopathy (HCC) [G95.9] INVALID FOR*03/29/2017 Claustrophobia [F40.240] INVALID FOR* Ptosis of eyelid, bilateral [H02.403] INVALID FOR*03/29/2017 More... Lumbar spondylosis [M47.816] INVALID FOR* More... Preop testing [Z01.818] INVALID FOR* More... Anaphylaxis [T78.2XXA] INVALID FOR* Essential hypertension [I10] INVALID FOR* Peroneal tendinitis, left [M76.72] INVALID FOR* Other instructions from your clinician: Chronic Low Back Pain Overview: ? Eighty to 90 percent of people in the [place] will experience an episode of back pain at some time during their lives. ? Chronic back pain refers to an episode of pain that lasts longer than 12 weeks. ? Many times, a specific structural explanation for the pain is not found but medical treatment can successfully improve symptoms and allow return to normal activities. ? In the absence of major structural deformity, surgery is unlikely to be helpful in relieving back pain. Treatment: ? Back pain is almost always best treated with conservative (non-surgical) measures. ? Prolonged bed rest is not recommended and generally should not exceed 24-48 hours. Gradually resuming normal activities as soon as you are able is best. ? Your physician may recommend physical therapy to customize an active exercise program which will speed your recovery. ? Over the counter, non-prescription pain relievers such as acetaminophen (Tylenol) and ibuprofen may be used in your treatment of pain. Your physician may prescribe a non-steroidal anti-inflammatory drug (NSAID) to use as an alternative. ? Other medications, particularly antidepressants, may be prescribed for pain relief even in the absence of depression. ? Yoga, acupuncture, and massage are helpful in some persons with chronic back pain. ? Opioid or narcotic medications are not recommended, and you should refrain from the use of such medications. In fact, use of these drugs may prolong the amount of time it takes for you to recover. ? Spinal epidural injections (blocks) are not recommended for treatment of back pain. Injection of spinal joints (facets) is rarely recommended for treatment of spinal arthritis pain. Follow Up ? See your health care provider if: ? You experience fever ? The pain progressively worsens ? The pain progressively moves from your back into your leg(s) ? You notice progressive weakness in your legs ? You experience problems in your balance or walking ? You notice difficulty controlling your bowels or bladder These are warning signs or red flags that require prompt, urgent medical attention. For more information on low back pain, visit our website at [email or web address] and search lower back pain. SIGNATURE: Abelino Mcelroy APRN.TISHA PATIENT NAME: Ralph Joshi DATE: November 28, 2017 TIME: 11:50 AM Encounter Status:Closed by ABELINO MCELROY on 11/29/17 PROGRESS Observed: 11/28/2017 Status: COMPLETED Source: [place] 11:50 AM [facility] REPOSITORY HNO ID: [id number] Author: Abelino Boggs) Robert Service: (none) Author Type: Nurse Practitioner Type: Progress Notes Filed: 11/29/2017 8:47 AM Note Text: SPINE CARE PATH LOW BACK PAIN: CHRONIC FOLLOW UP SUBJECTIVE HISTORY OF PRESENT ILLNESS: Reason for Visit: chronic low back pain, both legs. Ralph Joshi is seen for chronic low back pain, both legs, equally, back of the legs, at times weakness experienced with stairs. Rates total pain today as 3/10, with increasing with movement, walking/standing, climbing stairs. Pt does state she feels weak in the legs. Pt does state she has some loss of bladder control, for about a year. Denies history of cancer. Denies any blood thinning medication. PED RED FLAGS YELLOW AND BLUE FLAGS Yes: Provider notified No-Significant Injury to Spine No-Use of Steroids for Prolonged Duration No-Loss of Bowel/Bladder Control, Genital/Anal Numbness No-Recent Use of Intravenous (IV) Drugs No-Difficulty Keeping Balance when Walking No-Progressive Weakness in Arms/Legs No-History of Any Type of Cancer No-Unable to Find Position of Comfort No-Pain at Night that Disturbs Sleep No-Recent Elevated Temp with Unknown Cause No-Diagnosed with Osteoporosis No-Unintentional Weight Loss or Gain No-Neg Attitude; Back Pain is Disabling No-Avoiding Activity (for Fear of Pain) No-Depression or Anxiety Disorders No-Social Problems No-Substance Use Disorder No-Job Dissatisfaction No-Financial Disincentives *PED (Patient Entered Data) osteoporosis flag will display for females 55 years or older and males 75 years or older. ACTIVE PROBLEM LIST Adrenal Nodule (Hcc) Urge Incontinence Female Stress Incontinence Hirsutism Gerd (Gastroesophageal Reflux Disease) THONY (obstructive sleep apnea) Obesity (Bmi 30.0-34.9) Idiopathic anaphylaxis Hyperlipidemia Ldl Goal <100 Impaired Fasting Glucose Multinodular Goiter CKD (chronic kidney disease) stage 3, GFR 30-59 ml/min ([facility]) Moderate Persistent Asthma Without Complication Ulcerative Colitis Without Complications (Hcc) Chronic Nausea Lumbar Stenosis Cervical Stenosis of Spine Claustrophobia Lumbar Spondylosis Preop Testing Anaphylaxis Essential Hypertension Peroneal Tendinitis, Left PAST MEDICAL HISTORY Diagnosis Date - Abdominal pain, other specified site - ACNE NEC 01/21/2008 - Actinic Keratosis (Premalignant AK) 06/05/2011 - ACUTE GASTRITIS W/O HEMORRHAGE 04/26/2007 - Allergic rhinitis 04/23/2012 - Anaphylactic reaction ideopathic - Benign tumor of adrenal gland - Biliary dyskinesia 10/29/2009 - Cervical herniated disc 10/20/2016 - Cervical myelopathy (HCC) 10/25/2016 - Cervical radiculitis 10/20/2016 - Cervical spondylosis with radiculopathy 11/17/2015 - JAIN ANGIOMA///NEVUS, NON-NEOPLASTIC 05/28/2007 - CKD (chronic kidney disease) stage 3, GFR 30-59 ml/min (HCC) 04/29/2013 - Diaphragmatic hernia without mention of obstruction or gangrene 05/25/2011 - Diverticulosis of colon (without mention of hemorrhage) - Edema 07/07/2004 - Epigastric pain - GERD (gastroesophageal reflux disease) - HTN (hypertension) 2001 controlled on Diovan - Hyperlipidemia 10/15/2013 - IRON DEFIC ANEMIA NOS 04/26/2007 - Moderate persistent asthma without complication 02/18/2015 - Ovarian cyst Benign ovarian cyst, S/P laparoscopic LSO - Ptosis of eyelid, bilateral 12/23/2016 Added automatically from request for surgery [id number] - Shoulder impingement 11/17/2015 - Sleep apnea intollerant to CPAP because allergic to material on mask - Steroid-induced hyperglycemia 09/06/2014 - TACHYCARDIA NOS 01/09/2006 - Tarsal tunnel syndrome 12/23/2009 - Tear of lateral meniscus of knee 02/21/2014 - Ulcerative colitis, unspecified - UTERINE LEIOMYOMA NOS 12/23/2005 - VIRAL WARTS NOS 05/09/2006 - Vocal cord dysfunction PAST SURGICAL HISTORY Procedure Laterality Date - CHOLECYSTECTOMY HX - COLONOSCOP W/ OR W/O [facility] SPEC 09/06/2005 Colonoscopy - COLONOSCOP W/ OR W/O [facility] SPEC Colonoscopy - COLONOSCOP W/ OR W/O [facility] SPEC 05/28/2012 Colonoscopy repeat 5 years. - EGD 07/29/14 normal - EGD W/O OR W/BRUSH/WASH 09/06/2005 EGD - EGD W/O OR W/BRUSH/WASH 04/26/2007 EGD - EGD W/O OR W/BRUSH/WASH 05/25/2011 EGD - EGD W/O OR W/BRUSH/WASH 05/28/2012 EGD - L'SCOPE REM ADNEX W/PART/TOT OOPH/SALP 06/11/2009 Laparoscopic LSO for benign ovarian cyst - LAMINECTOMY,CERVICAL 10/2016 - LAP CHOLECYSTECT/CHOLANGIOGRAPHY 10/30/09 Normal IOC - ORTHOPEDICS SURGERY HX 12/2013 repaired Rt achilles tendon - PAST SURGICAL HISTORY OF 09/19 left foot surgery on heel and repaired torn tdndon - SIGMOIDOSCOPY FLEX DIAG 05/20/08 - TARSAL TUNNEL RELEASE 07/2010 Left foot Social History Marital status: Spouse name: Ezio Years of education: 14 Number of children: 3 Occupational History 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 Alive at 85. - Hypertension Father Alive at 85. - Cataract Father Alive at 85. - Thyroid Father Alive at 85. - Heart Father [place] at 87 - Diabetes Mother colon polyps. age 72. - Hypertension Mother age 72. - other (benign brainstem tumor) Mother Persistent vegetative state. age 72. - defects Sister infant - Glaucoma Maternal Grandmother - Stroke Maternal Grandfather - Cancer Paternal Grandmother cervical - Colon Cancer Son 38 colon and rectal cancer - Breast Cancer Sister Developed in late 20s. Alive at 52. - Osteoporosis Sister - other (colon polyps) Sister 3 sisters with colon polyps ALLERGIES Allergen Reactions - Avocado Anaphylaxis - Banana Anaphylaxis - Carbinoxamine Anaphylaxis - Yoselin Seed Anaphylaxis - Ciprofloxacin Anaphylaxis - Codeine Anaphylaxis - Contrast Dye Anaphylaxis To MRI and CT - Fish Anaphylaxis - Hycodan [Hydrocodon* Anaphylaxis Face and throat swelling - Latex Anaphylaxis - Imtiaz-Synephrine [Phe* Anaphylaxis 10% eye drop - Nickel Rash, Hives, Anaphylaxis - Nsaids (Non-Steroid* Other: See Comments Kidney function drops; reversible kidney damage. - Oxycodone Anaphylaxis - Periactin [Cyprohep* Anaphylaxis - Pneumococcal Vaccine Anaphylaxis - Shellfish Anaphylaxis - Zantac [Ranitidine] Anaphylaxis - Ativan [Lorazepam] Other: See Comments hallucination - Bee Sting Anaphylaxis - Beef Containing Pro* Rash - Berino Other: See Comments Feels like an asthma attack. - Eggs [Egg] Rash, Vomiting - Ekg Leads [Adhesive] Rash Localized,only under the leads - Environmental [Othe* Other: See Comments Nasal congestion, brings on an asthma attack. - Influenza Virus Vac* Shortness of Breath - Lisinopril Cough - Milk Rash, Vomiting - Mometasone Anaphylaxis Per Dr. Salas she tolerates formoterol (on Breo at home) but is allergic to mometasone. Okayed by him to update. - Surgical Tape [Othe* Rash, Swelling Oral rash, swelling of eyes, asthma attacks; per pateint report. - Xolair [Omalizumab] Shortness of Breath CURRENT MEDICATIONS: triamcinolone acetonide (KENALOG) 0.1 % cream Apply 1 application to affected area three times daily. Apply to affected area. Location: arms doxazosin (CARDURA) 4 mg tablet Take 1 tablet by mouth once daily. amLODIPine (NORVASC) 10 mg tablet Take 1 tablet by mouth once daily. COMPOUNDED PRESCRIPTION Please fit for CPAP mask. Patient with previous allergic/anaphylaxis reaction to mask. DME: [facility]. cromolyn (INTAL) 20 mg/2 mL nebulizer solution Use 20 mg via nebulizer three times daily. EPINEPHrine (EPIPEN) 0.3 mg/0.3 mL auto-injector Inject 0.3 mL intramuscularly as needed. Inject full content of the syringe. diphenhydrAMINE (BENADRYL) 25 mg tablet Take 1 tablet by mouth every 6 hours as needed for Itching/Rash. pregabalin (LYRICA) 150 mg capsule Take 1 capsule by mouth twice daily for 181 days. pregabalin (LYRICA) 150 mg capsule Take 1 capsule by mouth twice daily for 90 days. atorvastatin (LIPITOR) 20 mg tablet One tab on MWF only spironolactone (ALDACTONE) 50 mg tablet Take 1 tablet by mouth twice daily. lansoprazole (PREVACID) 30 mg capsule TAKE 1 CAPSULE TWICE A DAY bumetanide (BUMEX) 0.5 mg tablet Take 1 tablet by mouth once daily. nitroglycerin sublingual (NITROQUICK) 0.4 mg SL tablet DISSOLVE 1 TABLET UNDER THE TONGUE NEEDED FOR CHEST PAIN, IF NO RELIEF CALL 911 albuterol HFA (PROAIR HFA) 90 mcg/actuation inhaler Inhale 2 Puffs as instructed every 6 hours as needed for Wheezing/Shortness of Breath. fluticasone-vilanterol (BREO ELLIPTA) 100-25 mcg/dose inhaler Inhale 1 Inhalation as instructed once daily. levalbuterol (XOPENEX) 1.25 mg/3 mL nebulizer solution Use 1 Ampule via nebulizer every 4 hours as needed. Inhale over 5-15 minutes fluticasone (FLONASE) 50 mcg/actuation nasal spray 1-2 sprays each side qd budesonide (PULMICORT) 0.5 mg/2 mL nebulizer solution Use 1 Ampule via nebulizer twice daily. Azelastine 0.15 % (205.5 mcg) spry Use 1 [place] in each nostril twice daily. COMPOUNDED PRESCRIPTION Nocturnal oximetry on room air. DME: [facility] cholestyramine-sucrose (QUESTRAN) 4 gram powder Take 1 scoop by mouth once daily. cyanocobalamin (VITAMIN B-12) 1,000 mcg tab Take 1 tablet by mouth once daily. atenolol (TENORMIN) 25 mg tablet Take 1 tablet by mouth once daily. ergocalciferol, vitamin D2, (VITAMIN D) 50,000 unit capsule Take 1 capsule by mouth once each week. TURMERIC ROOT EXTRACT ORAL Take 1 tablet by mouth twice daily. crisaborole (EUCRISA) 2 % oint Apply to the hands twice daily COMPOUNDED PRESCRIPTION Please provide patient with nebulizer machine and supplies.Diagnosis: Severe Asthma. cetirizine (ZYRTEC) 10 mg tablet Take 10 mg by mouth once daily. pimecrolimus (ELIDEL) 1 % cream Apply twice daily to the hands ondansetron (ZOFRAN) 4 mg tablet Take 1 tablet by mouth every 8 hours as needed. Benzonatate 200 mg capsule Take 200 mg by mouth three times daily as needed for Cough. lactobacillus rhamnosus (CULTURELLE) 10 billion cell capsule Take 1 capsule by mouth twice daily. amoxicillin (POLYMOX, AMOXIL) 250 mg capsule Take 250 mg by mouth once daily. zafirlukast (ACCOLATE) 20 mg tablet Take 1 tablet by mouth twice daily. cycloSPORINE Modified 50 mg capsule Take 50 mg by mouth twice daily. ascorbic acid (VITAMIN C) 500 mg tablet Take 1 tablet by mouth once daily. REVIEW OF SYSTEMS: GENERAL: No weight loss or malaise MUSCULOSKELETAL: Negative for joint pain, swelling or muscle pain NEURO: No history of headaches, syncope, paralysis, seizures or tremors OBJECTIVE PHYSICAL EXAM: Temp 36.8 ?C (98.2 ?F) Ht 162.6 cm (5' 4) Wt 97.1 kg (214 lb) LMP 08/07/2013 BMI 36.73 kg/m? GENERAL APPEARANCE: Moderately obese. NEURO PSYCH: Patient oriented to person, place, and time. Mood pleasant. Benign affect. CARDIOVASCULAR: Palpable pulses. No edema noted. No varicosities. SKIN: Head, neck, trunk, and extremities dry, intact and without lesions. LYMPHATICS: No palpable nodes in cervical or axillae areas. Groin exam deferred. MUSCULOSKELETAL VISUAL INSPECTION CERVICAL: WNL THORACIC: WNL LUMBAR: WNL PALPATION: SPINOUS PROCESS: No pain. PARASPINALS: No pain. SPINE ROM: LUMBAR ROM: Full ROM Without Pain CERVICAL ROM: Full ROM Without Pain MUSCLE BULK: Normal and symmetrical in the upper AND lower extremities. MUSCLE TONE: Normal. MOTOR: 5/5 in all muscle groups. SENSORY: Normal sensory exam GAIT: Normal. Heel walk, toe walk, duck walk and jump with good strength. REFLEXES: +2 to bilateral U/L extremities. PROPRIOCEPTION: Normal. LONG TRACT SIGNS: No clonus. No Hoffmans. BABINSKI: Downward response STRAIGHT LEG TEST: Ipsilateral: Negative. Contralateral: Negative. PERIPHERAL JOINT ROM: HIP ROM: Full ROM Without Pain SHOULDER ROM: Full ROM Without Pain L'HERMITTES SIGN: Negative on the right. Negative on the left. SPURLING'S TEST: Negative on the right. Negative on the left. Neuro Tests: Paraspinal soft tissues: ? ?Paraspinal soft tissues are within normal limits. Lower thoracic spine: ?Visualized lower thoracic canal and foramina are patent. T12-L1: ?Canal and foramina are patent. L1-L2: ? ?Mild bulging annulus and mild facet degenerative change. ?No canal stenosis. ?Mild right foraminal narrowing. L2-L3: ? ?Bulging annulus and moderate facet degenerative change. ? Moderate canal stenosis. ?Mild bilateral inferior foraminal narrowing. L3-L4: ? ?Bulging annulus and mild to moderate facet degenerative change. ?Severe canal stenosis. ?Moderate right and mild left foraminal narrowing. L4-L5: ? ?Bulging annulus and moderate to severe facet degenerative change. ?Moderate canal stenosis. ?Moderate bilateral foraminal narrowing. L5-S1: ? ?Mild bulging annulus and mild facet degenerative change. ?Mild left inferior foraminal narrowing. ?No canal stenosis or right foraminal narrowing. Sacrum and iliac wings: ? ?The visualized sacrum and iliac wings are within normal limits. ASSESSMENT/PLAN (M51.16) Intervertebral disc disorder with radiculopathy of lumbar region (primary encounter diagnosis) Comment: 62 year old female with leg pain returning today for follow up Plan: PATIENT PLACED ON SPINE CARE PATH, CONSULT TO SPINE INTERVENTION LESI reordered today, along with instructions of medication instructions from allergists. Pt has received this epidural in the past which was very helpful for relief of pain. SIGNATURE: Abelino Mcelroy APRN.CIRCUIT RECORDER PATIENT NAME: Ralph Joshi DATE: November 28, 2017 TIME: 11:50 AM URINALYSIS, ROUTINE Collected: 11/16/2017 Status: F Source: [place] (DIPSTICK) 1:40 PM [facility] REPOSITORY Order Comment: How was Urine Obtained? CLEAN CATCH TYPE CODE TESTS RESULT OUT OF RANGE REFERENCE UNITS LAB L400.3000 Yellow COLOR Normal Yellow LAB L400.3050 Clear Normal CLARITY Clear LAB L400.3200 Normal mg/dl Normal GLUCOSE, UR Normal LAB L400.3300 Negative mg/dL Normal BILIRUBIN URINE Negative LAB L400.3400 Negative mg/dl Normal KETONE UR Negative LAB L400.3465 1.002-1.030 Normal SP.GR. DIPSTX 1.010 LAB L400.3550 5.0 - 8.0 pH UR Normal 6.0 LAB L400.3600 Negative mg/dl PROT Normal DIPSTX Negative LAB L400.3700 Normal mg/dl Normal UROBILI Normal LAB L400.3750 Negative Normal NITRITE UR Negative LAB L400.3780 Negative /ul Normal OCCULT BLOOD-UR Negative LAB L400.3800 Negative /ul LEUK Normal ESTERASE Negative Performed By: #### L400.2010 #### [facility] [address] [place], [address] CBC W/DIFF, AUTOMATED Collected: 11/16/2017 Status: F Source: [place] 1:40 PM [facility] REPOSITORY TYPE CODE TESTS RESULT OUT OF RANGE REFERENCE UNITS LAB L100.1000 4.4-11.0 K/mm3 Normal WBC 6.7 LAB L100.1200 4.2-5.4 M/mm3 Normal RBC 4.80 LAB L100.1300 12.0-15.0 g/dl Normal HGB 14.2 LAB L100.1400 37-47 % Normal HCT 43.7 LAB L100.1500 81-99 fL Normal MCV 91.0 LAB L100.1600 27.0-32.0 pg Normal MCH 29.6 LAB L100.1700 32-36 g/gl Normal MCHC 32.5 LAB L100.1810 11.6-14.6 % High RDW CV 14.9 LAB L100.1820 35.1-43.9 fl High RDW SD 49.7 LAB L100.1900 150-450 K/mm3 Normal PLT 212 LAB L100.2000 6.2-12.0 fl Normal MPV 10.8 LAB L100.2100 47-70 % High NEUT% 71.0 LAB L100.2200 19-41 % Low LY% 15.4 LAB L100.2300 0-10 % High MONO% 11.0 LAB L100.2400 0-5 % Normal EO% 2.1 LAB L100.2500 0-1 % Normal BASO% 0.4 LAB L100.2550 0.0-0.9 % Normal IM GRAN % 0.100 Result Comment: IG% - Immature Granulocytes (promyelocytes, myelocytes and metamyelocytes) > 1% indicates that a LEFT SHIFT is Present. LAB L100.2620 2.0-7.7 X10 3/uL Normal Absolute Neut 4.8 LAB L100.2720 0.83-4.51 X10 3/ul Normal Absolute Lymph 1.04 Performed By: #### L100.0100 #### [facility] [address] [place], [place], [id number] BUN Collected: 11/16/2017 Status: F Source: [place] 1:40 PM [facility] REPOSITORY TYPE CODE TESTS RESULT OUT OF RANGE REFERENCE UNITS LAB L501.1000 7-18 mg/dL High BUN 19 Performed By: #### L501.1000, L501.1105, L501.1800, L501.4100, L501.4405 #### [facility] [address] [place], [place], [address] SERUM CREATININE AND Collected: 11/16/2017 Status: F Source: [place] GFR 1:40 PM [facility] REPOSITORY TYPE CODE TESTS RESULT OUT OF RANGE REFERENCE UNITS LAB L501.1100 0.55-1.02 mg/dL High 1.22 CREAT,SERUM Result Comment: The validity of the calculated GFR AND GFRAA in patients over 70 years has not been determined. Clinical correlation is essential. LAB L501.1110 >60 mL/min Low EST GFR 48 Result Comment: Non- GFR Calc LAB L501.1115 >60 mL/min Low EST GFR - AA 58 Result Comment: GFR Calc Performed By: #### L501.1000, L501.1105, L501.1800, L501.4100, L501.4405 #### [facility] [address] [place], [address] ALBUMIN, SERUM Collected: 11/16/2017 Status: F Source: [place] 1:40 PM [facility] REPOSITORY TYPE CODE TESTS RESULT OUT OF RANGE REFERENCE UNITS LAB L501.1800 3.2-5.0 g/dL Normal ALB 3.7 Performed By: #### L501.1000, L501.1105, L501.1800, L501.4100, L501.4405 #### [facility] [address] [place], [address] AST(SGOT) Collected: 11/16/2017 Status: F Source: [place] 1:40 PM [facility] REPOSITORY TYPE CODE TESTS RESULT OUT OF RANGE REFERENCE UNITS LAB L501.4100 15-37 U/L Normal AST 21 Performed By: #### L501.1000, L501.1105, L501.1800, L501.4100, L501.4405 #### [facility] [address] [place], [address] ALANINE AMINOTRANSFERAS Collected: 11/16/2017 Status: F Source: [place] (SGPT) 1:40 PM [facility] REPOSITORY TYPE CODE TESTS RESULT OUT OF RANGE REFERENCE UNITS LAB L501.4405 13-56 U/L Normal ALT 47 Performed By: #### L501.1000, L501.1105, L501.1800, L501.4100, L501.4405 #### [facility] [address] [place], [address] CYCLOSPORINE, BLOOD Collected: 11/16/2017 Status: F Source: [place] 1:40 PM [facility] REPOSITORY TYPE CODE TESTS RESULT OUT OF REFERENCE UNITS RANGE LAB L3400.3100 Cyclosporine Normal Result Comment: NONE DETECTED Therapeutic: Renal Transplant 100 - 250 Liver Transplant 100 - 400 Cardiac Transplant 100 - 400 Bone Marrow 200 - 300 Detection Limit = 25 Assay performed by Liquid Chromatography Tandem Mass Spectrometry (LC-MS/MS) If preferred testing methodology for Cyclosporine is Liquid Chromatography Tandem Mass Spectrometry (LC-MS/MS) please use test code [id number]. For testing performed by Immunoassay, please use test code [id number]. Performed at: [facility] [id number] [employer] Music Director: Mik Alonso MD, Phone: [phone] Performed By: #### L3400.3090 #### [facility] (refer to report for specific site) refer to report for address and phone number CBC W/DIFF, AUTOMATED Collected: 11/10/2017 Status: F Source: [place] 9:38 AM [facility] REPOSITORY TYPE CODE TESTS RESULT OUT OF RANGE REFERENCE UNITS LAB L100.1000 4.4-11.0 K/mm3 Normal WBC 6.9 LAB L100.1200 4.2-5.4 M/mm3 Normal RBC 4.85 LAB L100.1300 12.0-15.0 g/dl Normal HGB 14.2 LAB L100.1400 37-47 % Normal HCT 44.0 LAB L100.1500 81-99 fL Normal MCV 90.7 LAB L100.1600 27.0-32.0 pg Normal MCH 29.3 LAB L100.1700 32-36 g/gl Normal MCHC 32.3 LAB L100.1810 11.6-14.6 % High RDW CV 14.8 LAB L100.1820 35.1-43.9 fl High RDW SD 49.2 LAB L100.1900 150-450 K/mm3 Normal PLT 185 LAB L100.2000 6.2-12.0 fl Normal MPV 10.6 LAB L100.2100 47-70 % High NEUT% 75.3 LAB L100.2200 19-41 % Low LY% 13.3 LAB L100.2300 0-10 % Normal MONO% 7.6 LAB L100.2400 0-5 % Normal EO% 2.8 LAB L100.2500 0-1 % Normal BASO% 0.7 LAB L100.2550 0.0-0.9 % Normal IM GRAN % 0.300 Result Comment: IG% - Immature Granulocytes (promyelocytes, myelocytes and metamyelocytes) > 1% indicates that a LEFT SHIFT is Present. LAB L100.2620 2.0-7.7 X10 3/uL Normal Absolute Neut 5.2 LAB L100.2720 0.83-4.51 X10 3/ul Normal Absolute Lymph 0.91 Performed By: #### L100.0100 #### [facility] [address] [place], [place], [id number] URINALYSIS, ROUTINE Collected: 11/10/2017 Status: F Source: [place] (DIPSTICK) 9:38 AM [facility] REPOSITORY Order Comment: How was Urine Obtained? CLEAN CATCH TYPE CODE TESTS RESULT OUT OF RANGE REFERENCE UNITS LAB L400.3000 Yellow COLOR Normal Yellow LAB L400.3050 Clear Normal CLARITY Clear LAB L400.3200 Normal mg/dl Normal GLUCOSE, UR Normal LAB L400.3300 Negative mg/dL Normal BILIRUBIN URINE Negative LAB L400.3400 Negative mg/dl Normal KETONE UR Negative LAB L400.3465 1.002-1.030 Normal SP.GR. DIPSTX 1.015 LAB L400.3550 5.0 - 8.0 pH UR Normal 6.5 LAB L400.3600 Negative mg/dl High PROT 15 DIPSTX LAB L400.3700 Normal mg/dl Normal UROBILI Normal LAB L400.3750 Negative Normal NITRITE UR Negative LAB L400.3780 Negative /ul Normal OCCULT BLOOD-UR Negative LAB L400.3800 Negative /ul High LEUK 25 ESTERASE Performed By: #### L400.2010 #### [facility] [address] [facility] [place], [place], [address] BUN Collected: 11/10/2017 Status: F Source: [place] 9:38 AM [facility] REPOSITORY TYPE CODE TESTS RESULT OUT OF RANGE REFERENCE UNITS LAB L501.1000 7-18 mg/dL Normal BUN 16 Performed By: #### L501.1000, L501.1105, L501.1800, L501.4100, L501.4405 #### [facility] [address] [place], [address] SERUM CREATININE AND Collected: 11/10/2017 Status: F Source: [place] GFR 9:38 AM [facility] REPOSITORY TYPE CODE TESTS RESULT OUT OF RANGE REFERENCE UNITS LAB L501.1100 0.55-1.02 mg/dL High 1.21 CREAT,SERUM Result Comment: The validity of the calculated GFR AND GFRAA in patients over 70 years has not been determined. Clinical correlation is essential. LAB L501.1110 >60 mL/min Low EST GFR 48 Result Comment: Non- GFR Calc LAB L501.1115 >60 mL/min Low EST GFR - AA 58 Result Comment: GFR Calc Performed By: #### L501.1000, L501.1105, L501.1800, L501.4100, L501.4405 #### [facility] [address] [place], [address] ALBUMIN, SERUM Collected: 11/10/2017 Status: F Source: [place] 9:38 AM [facility] REPOSITORY TYPE CODE TESTS RESULT OUT OF RANGE REFERENCE UNITS LAB L501.1800 3.2-5.0 g/dL Normal ALB 3.6 Performed By: #### L501.1000, L501.1105, L501.1800, L501.4100, L501.4405 #### [facility] [address] [place], [address] AST(SGOT) Collected: 11/10/2017 Status: F Source: [place] 9:38 AM [facility] REPOSITORY TYPE CODE TESTS RESULT OUT OF RANGE REFERENCE UNITS LAB L501.4100 15-37 U/L Normal AST 23 Result Comment: Slight Hemolysis, Result may be falsely increased. Performed By: #### L501.1000, L501.1105, L501.1800, L501.4100, L501.4405 #### [facility] [address] [place], [address] ALANINE AMINOTRANSFERAS Collected: 11/10/2017 Status: F Source: [place] (SGPT) 9:38 AM [facility] REPOSITORY TYPE CODE TESTS RESULT OUT OF RANGE REFERENCE UNITS LAB L501.4405 13-56 U/L Normal ALT 38 Performed By: #### L501.1000, L501.1105, L501.1800, L501.4100, L501.4405 #### [facility] [place], [address] CYCLOSPORINE, BLOOD Collected: 11/10/2017 Status: F Source: [place] 9:38 AM [facility] REPOSITORY TYPE CODE TESTS RESULT OUT OF REFERENCE UNITS RANGE LAB L3400.3100 Cyclosporine Normal Result Comment: NONE DETECTED Therapeutic: Renal Transplant 100 - 250 Liver Transplant 100 - 400 Cardiac Transplant 100 - 400 Bone Marrow 200 - 300 Detection Limit = 25 Assay performed by Liquid Chromatography Tandem Mass Spectrometry (LC-MS/MS) If preferred testing methodology for Cyclosporine is Liquid Chromatography Tandem Mass Spectrometry (LC-MS/MS) please use test code [id number]. For testing performed by Immunoassay, please use test code [id number]. Performed at: [facility] [id number] [employer] Director: Mik Alonso MD, Phone: [phone] Performed By: #### L3400.3090 #### [facility]er [facility] for specific [facility] refer to report for address and phone number CNTHERAPY Observed: 11/10/2017 Status: COMPLETED Source: [place] 8:00 AM [facility] REPOSITORY OT/PT/Speech Visit (PTWS) RALPH JOSHI ([id number]) 1955 F Date Time Provider Department 11/10/17 8:00 AM TATY PHILIP (PT) PTWS Date Time Provider Department [place] 11/10/2017 8:00 AM [id number]-BDEMETATY PHILIP (PT) PTWS [facility] Reason for Visit: PT Discharge [752] PT Progress Note [1596] Primary Visit Diagnosis:Peroneal tendinitis, left [M76.72] Allergies As of Date: 11/10/2017 Noted Allergy Reaction AVOCADO 09/10/2014 10 - Anaphylaxis BANANA 09/10/2014 10 - Anaphylaxis CARBINOXAMINE 09/17/2012 10 - Anaphylaxis YOSELIN SEED 08/28/2013 10 - Anaphylaxis CIPROFLOXACIN 04/11/2014 10 - Anaphylaxis CODEINE 01/12/2012 10 - Anaphylaxis CONTRAST DYE 05/17/2013 10 - Anaphylaxis Comments: To MRI and CT FISH 09/07/2014 10 - Anaphylaxis HYCODAN (HYDROCODONE-HOMATROPINE) 09/08/2011 10 - Anaphylaxis Comments: Face and throat swelling LATEX 01/21/2014 10 - Anaphylaxis IMTIAZ-SYNEPHRINE (PHENYLEPHRINE HCL)09/04/2014 10 - Anaphylaxis Comments: 10% eye drop NICKEL 01/07/2014 2 - Rash 4 - Hives 10 - Anaphylaxis NSAIDS (NON-STEROIDAL ANTI-INFLAM*08/16/2010 14 - Other: See Comments Comments: Kidney function drops; reversible kidney damage. OXYCODONE 08/28/2013 10 - Anaphylaxis PERIACTIN (CYPROHEPTADINE) 09/17/2012 10 - Anaphylaxis PNEUMOCOCCAL VACCINE 10/31/2014 10 - Anaphylaxis SHELLFISH 09/07/2014 10 - Anaphylaxis ZANTAC (RANITIDINE) 09/17/2012 10 - Anaphylaxis ATIVAN (LORAZEPAM) 08/28/2013 14 - Other: See Comments Comments: hallucination BEE STING 10/31/2017 10 - Anaphylaxis BEEF CONTAINING PRODUCTS 09/10/2014 2 - Rash CORN 05/03/2011 14 - Other: See Comments Comments: Feels like an asthma attack. EGGS (EGG) 03/08/2011 2 - Rash 11 - Vomiting EKG LEADS (ADHESIVE) 10/22/2012 2 - Rash Comments: Localized,only under the leads environmental [Other] 06/26/2007 14 - Other: See Comments Comments: Nasal congestion, brings on an asthma attack. INFLUENZA VIRUS VACCINES 10/22/2012 12 - Shortness of Breath LISINOPRIL 04/20/2004 3 - Cough MILK 03/08/2011 2 - Rash 11 - Vomiting MOMETASONE 04/05/2017 10 - Anaphylaxis Comments: Per Dr. Salas she tolerates formoterol (on Breo at home) but is allergic to mometasone. Okayed by him to update. surgical tape [Other] 11/10/2009 2 - Rash 7 - Swelling Comments: Oral rash, swelling of eyes, asthma attacks; per pateint report. XOLAIR (OMALIZUMAB) 04/19/2012 12 - Shortness of Breath Date Reviewed: 10/31/2017 Reviewed by: Lamonte Guevara Ma - Fully Assessed Prescriptions as of 11/10/2017 Sig: TRIAMCINOLONE ACETONIDE 0.1 %* Apply 1 application to affect* DOXAZOSIN 4 MG TABLET Take 1 tablet by mouth once d* AMLODIPINE 10 MG TABLET Take 1 tablet by mouth once d* COMPOUNDED PRESCRIPTION Please fit for CPAP mask. Pat* CROMOLYN 20 MG/2 ML SOLUTION * Use 20 mg via nebulizer three* EPINEPHRINE 0.3 MG/0.3 ML INJ* Inject 0.3 mL intramuscularly* DIPHENHYDRAMINE 25 MG TABLET Take 1 tablet by mouth every * PREGABALIN 150 MG CAPSULE Take 1 capsule by mouth twice* PREGABALIN 150 MG CAPSULE Take 1 capsule by mouth twice* ATORVASTATIN 20 MG TABLET One tab on MWF only SPIRONOLACTONE 50 MG TABLET Take 1 tablet by mouth twice * LANSOPRAZOLE 30 MG CAPSULE,DE* TAKE 1 CAPSULE TWICE A DAY BUMETANIDE 0.5 MG TABLET Take 1 tablet by mouth once d* NITROGLYCERIN 0.4 MG SUBLINGU* DISSOLVE 1 TABLET UNDER THE T* ALBUTEROL SULFATE HFA 90 MCG/* Inhale 2 Puffs as instructed * FLUTICASONE 100 MCG-VILANTERO* Inhale 1 Inhalation as instru* Patient taking differently: Inhale 2 Inhalation as instru* LEVALBUTEROL 1.25 MG/3 ML BRENDA* Use 1 Ampule via nebulizer ev* FLUTICASONE 50 MCG/ACTUATION * 1-2 sprays each side qd BUDESONIDE 0.5 MG/2 ML SUSPEN* Use 1 Ampule via nebulizer tw* AZELASTINE 0.15 % (205.5 MCG)* Use 1 Wilberforce in each nostril t* COMPOUNDED PRESCRIPTION Nocturnal oximetry on room ai* CHOLESTYRAMINE (WITH SUGAR) 4* Take 1 scoop by mouth once da* CYANOCOBALAMIN (VIT B-12) 1,0* Take 1 tablet by mouth once d* ATENOLOL 25 MG TABLET Take 1 tablet by mouth once d* ERGOCALCIFEROL (VITAMIN D2) 5* Take 1 capsule by mouth once * Patient taking differently: Take 50,000 Units by mouth on* TURMERIC ROOT EXTRACT ORAL Take 1 tablet by mouth twice * CRISABOROLE 2 % TOPICAL OINTM* Apply to the hands twice daily COMPOUNDED PRESCRIPTION Please provide patient with n* CETIRIZINE 10 MG TABLET Take 10 mg by mouth once mary ellen* PIMECROLIMUS 1 % TOPICAL CREAM Apply twice daily to the hands ONDANSETRON HCL 4 MG TABLET Take 1 tablet by mouth every * BENZONATATE 200 MG CAPSULE Take 200 mg by mouth three ti* Patient not taking: Reported on 10/26/2017 LACTOBACILLUS RHAMNOSUS GG 10* Take 1 capsule by mouth twice* AMOXICILLIN 250 MG CAPSULE Take 250 mg by mouth once liam* ZAFIRLUKAST 20 MG TABLET Take 1 tablet by mouth twice * CYCLOSPORINE MODIFIED 50 MG C* Take 50 mg by mouth twice liam* ASCORBIC ACID (VITAMIN C) 500* Take 1 tablet by mouth once d* Progress Notes: Taty Philip, PT 11/15/2017 8:31 AM Signed Episode Visit Count: 25 Therapist That Will Oversee The Plan Of Care: Taty Philip Start of Care Date: 07/21/17 Onset Date: 07/21/16 (about one year) Patient Identified by Name and Date of : Yes REHABILITATION AND SPORTS THERAPY PHYSICAL THERAPY DISCONTINUANCE OF CARE PLAN OF CARE UPDATE: Assessment: Ralph Joshi is discontinued from Physical Therapy services due to maximal benefit.. Patient was seen for 25 visits from Start of Care Date: 07/21/17 to 11/15/2017 and treatment included: Therapeutic exercise, Manual therapy, Self-shelter management, Patient/Family/Caregiver Education and Modalities: Ultrasound. Pt has met the majority of her goals and will continue independently with her HEP. Goals for Episode of Care: created on 07/21/17 through 09/20/17 Goals updated on 11/10/2017. [place] in home exercise program. (Met) Patient will decrease pain rating by 2 points to meet minimal clinical important difference for numeric pain rating scale. (Met) Patient will increase active ROM of L ankle to DF 8-10 deg, inv 30-35 deg and ever 15 deg. to allow pt to improved performance of ADLs. (Met) Patient will increase strength of L ankle to 4+/5 to allow for return to prior functional status and normalized gait mechanics. (Not Met) Perform daily and community ambulation, prolonged standing and stair negotiation with decreased report of symptoms/pain in 4-8 weeks. (Partially Met) Demonstrate improvement on functional score: Patient will increase his/her score on the Lower Extremity Functional Scale by at least 9 points to indicate a Minimal Clinical Important Difference. (Met) SUBJECTIVE: Pt reporting she was at an indoor waterpark this week and did a lot of walking and standing without her shoes/orthotics on. She notes it is not necessarily more painful while she is on it, but if on her feet for all day activities it gets irritated. Overall, pt notes improvement, but remains limited in amount of time on her feet resulting in swelling and soreness later on. She is able to negotiate one flight of stairs and tolerates ambulating about an hour before the pain starts to increase. Pain Score: 6/10 Pain Location: Ankle - Left;Heel - Left Description: Burning Post Treatment Pain Score: 2/10 Pain Location: Ankle - Left OBJECTIVE MEASURES WITH LEVEL OF FUNCTION: Ankle Observations Comments: 2 above mall 25.5, B mall 29.5, heel 33, midfoot 24.5, MTP 23 LE AROM L Ankle Dorsiflexion: 10 Degrees L Ankle Plantar Flexion: 60 Degrees L Ankle Inversion: 35 L Ankle Eversion: 20 LE Strength L Ankle Dorsiflexion (L4): 4/5 L Ankle Plantar Flexion: 4/5 L Ankle Inversion: 4/5 L Ankle Eversion: 4/5 TREATMENT: Therapeutic Exercise: 3: Standing BAPS ball 3, with pegs, left PWB A/P, lateral and cw and ccw 3x10. 4: Lateral step up and over foam square 3 x 10 each direction. Skilled Intervention: Patient was educated in proper exercise technique and purpose for exercises. Reviewed and educated patient on additions/changes for home exercise program and pt is to continue independently with HEP progressing as appropriate to fully achieve all goals. Skilled judgment was provided in selection of appropriate interventions. Correct performance of therapeutic exercises was facilitated with verbal and visual cuing. Patient education as noted. Manual Therapy: 1: IASTM with boomerang and tongue depressor left lateral malleolar/peroneal and gastroc region x 15 minutes with pressure to patient tolerance with pt in prone lying. Skilled Intervention: Manual skills to improve joint mobility, ROM, and decrease pain. Utilized anatomy knowledge of the therapist, and assessment of patient's response to intervention. Modalities: Ultrasound Body Region Treated - Ultrasound: Left lateral ankle, sub and posterior malleolar regions, peroneal tendon Patient Position: Prone lying Mode: 100% w/cm2: 1.2 MHZ: 1 Minutes: 10 See flowsheet for details regarding treatment. Skilled Intervention: Proper administration and selection of modality based on clinical presentation, deficits, and needs. Patient response monitored throughout treatment. Billing: [facility]: Therapeutic Exercise (29331): 1:1 time: 17 minutes (1 unit: 8-22 mins) Manual Therapy (57075): 1:1 time: 15 minutes (1 unit: 8-22 mins) Modalities Ultrasound (05796) 1:1 time: 10 minutes1 unit: 8-22 mins Total time: 42 minutes Taty Philip PT PROGRESS Observed: 11/10/2017 Status: COMPLETED Source: [place] 7:58 AM [facility] REPOSITORY HNO ID: [id number] Author: Taty (Pt) Cedrick Service: (none) Author Type: Physical Therapist Type: Progress Notes Filed: 11/15/2017 8:31 AM Note Text: Episode Visit Count: 25 Therapist That Will Oversee The Plan Of Care: Taty Philip Start of Care Date: 07/21/17 Onset Date: 07/21/16 (about one year) Patient Identified by Name and Date of : Yes REHABILITATION AND SPORTS THERAPY PHYSICAL THERAPY DISCONTINUANCE OF CARE PLAN OF CARE UPDATE: Assessment: Ralph Joshi is discontinued from Physical Therapy services due to maximal benefit.. Patient was seen for 25 visits from Start of Care Date: 07/21/17 to 11/15/2017 and treatment included: Therapeutic exercise, Manual therapy, Self-shelter management, Patient/Family/Caregiver Education and Modalities: Ultrasound. Pt has met the majority of her goals and will continue independently with her HEP. Goals for Episode of Care: created on 07/21/17 through 09/20/17 Goals updated on 11/10/2017. [place] in home exercise program. (Met) Patient will decrease pain rating by 2 points to meet minimal clinical important difference for numeric pain rating scale. (Met) Patient will increase active ROM of L ankle to DF 8-10 deg, inv 30-35 deg and ever 15 deg. to allow pt to improved performance of ADLs. (Met) Patient will increase strength of L ankle to 4+/5 to allow for return to prior functional status and normalized gait mechanics. (Not Met) Perform daily and community ambulation, prolonged standing and stair negotiation with decreased report of symptoms/pain in 4-8 weeks. (Partially Met) Demonstrate improvement on functional score: Patient will increase his/her score on the Lower Extremity Functional Scale by at least 9 points to indicate a Minimal Clinical Important Difference. (Met) SUBJECTIVE: Pt reporting she was at an indoor waterpark this week and did a lot of walking and standing without her shoes/orthotics on. She notes it is not necessarily more painful while she is on it, but if on her feet for all day activities it gets irritated. Overall, pt notes improvement, but remains limited in amount of time on her feet resulting in swelling and soreness later on. She is able to negotiate one flight of stairs and tolerates ambulating about an hour before the pain starts to increase. Pain Score: 6/10 Pain Location: Ankle - Left;Heel - Left Description: Burning Post Treatment Pain Score: 2/10 Pain Location: Ankle - Left OBJECTIVE MEASURES WITH LEVEL OF FUNCTION: Ankle Observations Comments: 2 above mall 25.5, B mall 29.5, heel 33, midfoot 24.5, MTP 23 LE AROM L Ankle Dorsiflexion: 10 Degrees L Ankle Plantar Flexion: 60 Degrees L Ankle Inversion: 35 L Ankle Eversion: 20 LE Strength L Ankle Dorsiflexion (L4): 4/5 L Ankle Plantar Flexion: 4/5 L Ankle Inversion: 4/5 L Ankle Eversion: 4/5 TREATMENT: Therapeutic Exercise: 3: Standing BAPS ball 3, with pegs, left PWB A/P, lateral and cw and ccw 3x10. 4: Lateral step up and over foam square 3 x 10 each direction. Skilled Intervention: Patient was educated in proper exercise technique and purpose for exercises. Reviewed and educated patient on additions/changes for home exercise program and pt is to continue independently with HEP progressing as appropriate to fully achieve all goals. Skilled judgment was provided in selection of appropriate interventions. Correct performance of therapeutic exercises was facilitated with verbal and visual cuing. Patient education as noted. Manual Therapy: 1: IASTM with boomerang and tongue depressor left lateral malleolar/peroneal and gastroc region x 15 minutes with pressure to patient tolerance with pt in prone lying. Skilled Intervention: Manual skills to improve joint mobility, ROM, and decrease pain. Utilized anatomy knowledge of the therapist, and assessment of patient's response to intervention. Modalities: Ultrasound Body Region Treated - Ultrasound: Left lateral ankle, sub and posterior malleolar regions, peroneal tendon Patient Position: Prone lying Mode: 100% w/cm2: 1.2 MHZ: 1 Minutes: 10 See flowsheet for details regarding treatment. Skilled Intervention: Proper administration and selection of modality based on clinical presentation, deficits, and needs. Patient response monitored throughout treatment. Billing: [facility]: Therapeutic Exercise ([id number]): 1:1 time: 17 minutes (1 unit: 8-22 mins) Manual Therapy (80709): 1:1 time: 15 minutes (1 unit: 8-22 mins) Modalities Ultrasound ([id number]) 1:1 time: 10 minutes1 unit: 8-22 mins Total time: 42 minutes Taty Philip PT PROGRESS Observed: 11/07/2017 Status: COMPLETED Source: [place] 8:53 AM [facility] REPOSITORY HNO ID: [id number] Author: Lisandra Grier Psr Service: (none) Author Type: (none) Type: Progress Notes Filed: 11/07/2017 8:53 AM Note Text: Pap logged and normal pap letter mailed to patient. Lisandra Grier Psr PROGRESS Observed: 11/06/2017 Status: COMPLETED Source: [place] 9:15 AM [facility] REPOSITORY HNO ID: [id number] Author: Taty (Pt) Cedrick Service: (none) Author Type: Physical Therapist Type: Progress Notes Filed: 11/06/2017 10:12 AM Note Text: Episode Visit Count: 24 Therapist That Will Oversee The Plan Of Care: Lemon, Taty Start of Care Date: 07/21/17 Onset Date: 07/21/16 (about one year) Patient Identified by Name and Date of : Yes REHABILITATION AND SPORTS THERAPY PHYSICAL THERAPY TREATMENT NOTE ASSESSMENT: Ralph Joshi demonstrated temporary pain relief with treatment and than increase burning returns. Left ankle remains edematous. The patient will continue to benefit from continued skilled physical therapy for exercise, US and IASTM. PLAN FOR NEXT VISIT: Continue with focus on IASTM and manual techniques, ultrasound per symptoms. SUBJECTIVE: Patient reports a few hours of relief with therapy and pain returns. Pain Score: 4/10 Pain Location: Ankle - Left;Heel - Left Description: Burning Frequency: Continuous Post Treatment Pain Score: 1/10 Pain Location: Ankle - Left Post Treatment Pain Description: (decrease burning) OBJECTIVE MEASURES WITH LEVEL OF FUNCTION: Edema persists left lateral malleoli region. TREATMENT: Therapeutic Exercise: 3: Standing BAPS ball 3, with pegs, left PWB A/P, lateral and cw and ccw 2x10. 4: Lateral step up and over foam square 2 x 10 each direction. Skilled Intervention: Patient was educated in proper exercise technique and purpose for exercises. Skilled judgment was provided in selection of appropriate interventions. Manual Therapy: 1: IASTM with boomerang and tongue depressor left lateral malleolar/peroneal and gastroc region x 15 minutes with pressure to patient tolerance with pt in prone lying. Skilled Intervention: Manual skills to improve joint mobility, ROM, and decrease pain. Utilized anatomy knowledge of the therapist, and assessment of patient's response to intervention. Modalities: Ultrasound Body Region Treated - Ultrasound: Left lateral ankle, sub and posterior malleolar regions, peroneal tendon Patient Position: Prone lying Mode: 100% w/cm2: 1.2 MHZ: 1 Minutes: 10 See flowsheet for details regarding treatment. Skilled Intervention: Proper administration and selection of modality based on clinical presentation, deficits, and needs. Patient response monitored throughout treatment. Billing: [facility]: Therapeutic Exercise (73059): 1:1 time: 15 minutes (1 unit: 8-22 mins) Manual Therapy (46402): 1:1 time: 15 minutes (1 unit: 8-22 mins) Modalities Ultrasound (31652) 1:1 time: 10 minutes1 unit: 8-22 mins Total time: 40 minutes Michaela Blakely PT-Yoli Philip PT CNTHERAPY Observed: 11/06/2017 Status: COMPLETED Source: [place] 8:30 AM [facility] REPOSITORY OT/PT/Speech Visit (PTWS) RALPH JOSHI ([id number]) 1955 F Date Time Provider Department 11/06/17 8:30 AM MICHAELA BLAKELY ([employer]ER) PTWS Date Time Provider Department Center 11/06/2017 8:30 AM [id number], NANCY ([employer]) PTWS [facility] Reason for Visit: Physical Therapy [503] Primary Visit Diagnosis:Peroneal tendinitis, left [M76.72] Allergies As of Date: 11/06/2017 Noted Allergy Reaction AVOCADO 09/10/2014 10 - Anaphylaxis BANANA 09/10/2014 10 - Anaphylaxis CARBINOXAMINE 09/17/2012 10 - Anaphylaxis YOSELIN SEED 08/28/2013 10 - Anaphylaxis CIPROFLOXACIN 04/11/2014 10 - Anaphylaxis CODEINE 01/12/2012 10 - Anaphylaxis CONTRAST DYE 05/17/2013 10 - Anaphylaxis Comments: To MRI and CT FISH 09/07/2014 10 - Anaphylaxis HYCODAN (HYDROCODONE-HOMATROPINE) 09/08/2011 10 - Anaphylaxis Comments: Face and throat swelling LATEX 01/21/2014 10 - Anaphylaxis IMTIAZ-SYNEPHRINE (PHENYLEPHRINE HCL)09/04/2014 10 - Anaphylaxis Comments: 10% eye drop NICKEL 01/07/2014 2 - Rash 4 - Hives 10 - Anaphylaxis NSAIDS (NON-STEROIDAL ANTI-INFLAM*08/16/2010 14 - Other: See Comments Comments: Kidney function drops; reversible kidney damage. OXYCODONE 08/28/2013 10 - Anaphylaxis PERIACTIN (CYPROHEPTADINE) 09/17/2012 10 - Anaphylaxis PNEUMOCOCCAL VACCINE 10/31/2014 10 - Anaphylaxis SHELLFISH 09/07/2014 10 - Anaphylaxis ZANTAC (RANITIDINE) 09/17/2012 10 - Anaphylaxis ATIVAN (LORAZEPAM) 08/28/2013 14 - Other: See Comments Comments: hallucination BEE STING 10/31/2017 10 - Anaphylaxis BEEF CONTAINING PRODUCTS 09/10/2014 2 - Rash CORN 05/03/2011 14 - Other: See Comments Comments: Feels like an asthma attack. EGGS (EGG) 03/08/2011 2 - Rash 11 - Vomiting EKG LEADS (ADHESIVE) 10/22/2012 2 - Rash Comments: Localized,only under the leads environmental [Other] 06/26/2007 14 - Other: See Comments Comments: Nasal congestion, brings on an asthma attack. INFLUENZA VIRUS VACCINES 10/22/2012 12 - Shortness of Breath LISINOPRIL 04/20/2004 3 - Cough MILK 03/08/2011 2 - Rash 11 - Vomiting MOMETASONE 04/05/2017 10 - Anaphylaxis Comments: Per Dr. Salas she tolerates formoterol (on Breo at home) but is allergic to mometasone. Okayed by him to update. surgical tape [Other] 11/10/2009 2 - Rash 7 - Swelling Comments: Oral rash, swelling of eyes, asthma attacks; per pateint report. XOLAIR (OMALIZUMAB) 04/19/2012 12 - Shortness of Breath Date Reviewed: 10/31/2017 Reviewed by: Lamonte Guevara Ma - Fully Assessed Prescriptions as of 11/06/2017 Sig: TRIAMCINOLONE ACETONIDE 0.1 %* Apply 1 application to affect* DOXAZOSIN 4 MG TABLET Take 1 tablet by mouth once d* AMLODIPINE 10 MG TABLET Take 1 tablet by mouth once d* COMPOUNDED PRESCRIPTION Please fit for CPAP mask. Pat* CROMOLYN 20 MG/2 ML SOLUTION * Use 20 mg via nebulizer three* EPINEPHRINE 0.3 MG/0.3 ML INJ* Inject 0.3 mL intramuscularly* DIPHENHYDRAMINE 25 MG TABLET Take 1 tablet by mouth every * PREGABALIN 150 MG CAPSULE Take 1 capsule by mouth twice* PREGABALIN 150 MG CAPSULE Take 1 capsule by mouth twice* ATORVASTATIN 20 MG TABLET One tab on MWF only SPIRONOLACTONE 50 MG TABLET Take 1 tablet by mouth twice * LANSOPRAZOLE 30 MG CAPSULE,DE* TAKE 1 CAPSULE TWICE A DAY BUMETANIDE 0.5 MG TABLET Take 1 tablet by mouth once d* NITROGLYCERIN 0.4 MG SUBLINGU* DISSOLVE 1 TABLET UNDER THE T* ALBUTEROL SULFATE HFA 90 MCG/* Inhale 2 Puffs as instructed * FLUTICASONE 100 MCG-VILANTERO* Inhale 1 Inhalation as instru* Patient taking differently: Inhale 2 Inhalation as instru* LEVALBUTEROL 1.25 MG/3 ML BRENDA* Use 1 Ampule via nebulizer ev* FLUTICASONE 50 MCG/ACTUATION * 1-2 sprays each side qd BUDESONIDE 0.5 MG/2 ML SUSPEN* Use 1 Ampule via nebulizer tw* AZELASTINE 0.15 % (205.5 MCG)* Use 1 Wilberforce in each nostril t* COMPOUNDED PRESCRIPTION Nocturnal oximetry on room ai* CHOLESTYRAMINE (WITH SUGAR) 4* Take 1 scoop by mouth once da* CYANOCOBALAMIN (VIT B-12) 1,0* Take 1 tablet by mouth once d* ATENOLOL 25 MG TABLET Take 1 tablet by mouth once d* ERGOCALCIFEROL (VITAMIN D2) 5* Take 1 capsule by mouth once * Patient taking differently: Take 50,000 Units by mouth on* TURMERIC ROOT EXTRACT ORAL Take 1 tablet by mouth twice * CRISABOROLE 2 % TOPICAL OINTM* Apply to the hands twice daily COMPOUNDED PRESCRIPTION Please provide patient with n* CETIRIZINE 10 MG TABLET Take 10 mg by mouth once mary ellen* PIMECROLIMUS 1 % TOPICAL CREAM Apply twice daily to the hands ONDANSETRON HCL 4 MG TABLET Take 1 tablet by mouth every * BENZONATATE 200 MG CAPSULE Take 200 mg by mouth three ti* Patient not taking: Reported on 10/26/2017 LACTOBACILLUS RHAMNOSUS GG 10* Take 1 capsule by mouth twice* AMOXICILLIN 250 MG CAPSULE Take 250 mg by mouth once liam* ZAFIRLUKAST 20 MG TABLET Take 1 tablet by mouth twice * CYCLOSPORINE MODIFIED 50 MG C* Take 50 mg by mouth twice liam* ASCORBIC ACID (VITAMIN C) 500* Take 1 tablet by mouth once d* Progress Notes: Taty Philip, PT 11/06/2017 10:12 AM Signed Episode Visit Count: 24 Therapist That Will Oversee The Plan Of Care: Taty Philip Start of Care Date: 07/21/17 Onset Date: 07/21/16 (about one year) Patient Identified by Name and Date of : Yes REHABILITATION AND SPORTS THERAPY PHYSICAL THERAPY TREATMENT NOTE ASSESSMENT: Ralph Joshi demonstrated temporary pain relief with treatment and than increase burning returns. Left ankle remains edematous. The patient will continue to benefit from continued skilled physical therapy for exercise, US and IASTM. PLAN FOR NEXT VISIT: Continue with focus on IASTM and manual techniques, ultrasound per symptoms. SUBJECTIVE: Patient reports a few hours of relief with therapy and pain returns. Pain Score: 4/10 Pain Location: Ankle - Left;Heel - Left Description: Burning Frequency: Continuous Post Treatment Pain Score: 1/10 Pain Location: Ankle - Left Post Treatment Pain Description: (decrease burning) OBJECTIVE MEASURES WITH LEVEL OF FUNCTION: Edema persists left lateral malleoli region. TREATMENT: Therapeutic Exercise: 3: Standing BAPS ball 3, with pegs, left PWB A/P, lateral and cw and ccw 2x10. 4: Lateral step up and over foam square 2 x 10 each direction. Skilled Intervention: Patient was educated in proper exercise technique and purpose for exercises. Skilled judgment was provided in selection of appropriate interventions. Manual Therapy: 1: IASTM with boomerang and tongue depressor left lateral malleolar/peroneal and gastroc region x 15 minutes with pressure to patient tolerance with pt in prone lying. Skilled Intervention: Manual skills to improve joint mobility, ROM, and decrease pain. Utilized anatomy knowledge of the therapist, and assessment of patient's response to intervention. Modalities: Ultrasound Body Region Treated - Ultrasound: Left lateral ankle, sub and posterior malleolar regions, peroneal tendon Patient Position: Prone lying Mode: 100% w/cm2: 1.2 MHZ: 1 Minutes: 10 See flowsheet for details regarding treatment. Skilled Intervention: Proper administration and selection of modality based on clinical presentation, deficits, and needs. Patient response monitored throughout treatment. Billing: [facility]: Therapeutic Exercise ([id number]): 1:1 time: 15 minutes (1 unit: 8-22 mins) Manual Therapy ([id number]): 1:1 time: 15 minutes (1 unit: 8-22 mins) Modalities Ultrasound ([id number]) 1:1 time: 10 minutes1 unit: 8-22 mins Total time: 40 minutes Michaela Blakely, PT-Yoli Philip, PT Previous Version Follow-up and Disposition History Recorded CNTHERAPY Observed: 11/03/2017 Status: COMPLETED Source: [facility] 8:00 AM [facility] REPOSITORY OT/PT/Speech Visit (PTWS) RALPH JOSHI ([id number]) 1955 F Date Time Provider Department 11/03/17 8:00 AM TATY PHILIP (PT) PTWS Date Time Provider Department Center 11/03/2017 8:00 AM [id number] PHILIP (PT) PTWS [facility] Reason for Visit: Physical Therapy [503] Primary Visit Diagnosis:Peroneal tendinitis, left [M76.72] Allergies As of Date: 11/03/2017 Noted Allergy Reaction AVOCADO 09/10/2014 10 - Anaphylaxis BANANA 09/10/2014 10 - Anaphylaxis CARBINOXAMINE 09/17/2012 10 - Anaphylaxis YOSELIN SEED 08/28/2013 10 - Anaphylaxis CIPROFLOXACIN 04/11/2014 10 - Anaphylaxis CODEINE 01/12/2012 10 - Anaphylaxis CONTRAST DYE 05/17/2013 10 - Anaphylaxis Comments: To MRI and CT FISH 09/07/2014 10 - Anaphylaxis HYCODAN (HYDROCODONE-HOMATROPINE) 09/08/2011 10 - Anaphylaxis Comments: Face and throat swelling LATEX 01/21/2014 10 - Anaphylaxis IMTIAZ-SYNEPHRINE (PHENYLEPHRINE HCL)09/04/2014 10 - Anaphylaxis Comments: 10% eye drop NICKEL 01/07/2014 2 - Rash 4 - Hives 10 - Anaphylaxis NSAIDS (NON-STEROIDAL ANTI-INFLAM*08/16/2010 14 - Other: See Comments Comments: Kidney function drops; reversible kidney damage. OXYCODONE 08/28/2013 10 - Anaphylaxis PERIACTIN (CYPROHEPTADINE) 09/17/2012 10 - Anaphylaxis PNEUMOCOCCAL VACCINE 10/31/2014 10 - Anaphylaxis SHELLFISH 09/07/2014 10 - Anaphylaxis ZANTAC (RANITIDINE) 09/17/2012 10 - Anaphylaxis ATIVAN (LORAZEPAM) 08/28/2013 14 - Other: See Comments Comments: hallucination BEE STING 10/31/2017 10 - Anaphylaxis BEEF CONTAINING PRODUCTS 09/10/2014 2 - Rash CORN 05/03/2011 14 - Other: See Comments Comments: Feels like an asthma attack. EGGS (EGG) 03/08/2011 2 - Rash 11 - Vomiting EKG LEADS (ADHESIVE) 10/22/2012 2 - Rash Comments: Localized,only under the leads environmental [Other] 06/26/2007 14 - Other: See Comments Comments: Nasal congestion, brings on an asthma attack. INFLUENZA VIRUS VACCINES 10/22/2012 12 - Shortness of Breath LISINOPRIL 04/20/2004 3 - Cough MILK 03/08/2011 2 - Rash 11 - Vomiting MOMETASONE 04/05/2017 10 - Anaphylaxis Comments: Per Dr. Salas she tolerates formoterol (on Breo at home) but is allergic to mometasone. Okayed by him to update. surgical tape [Other] 11/10/2009 2 - Rash 7 - Swelling Comments: Oral rash, swelling of eyes, asthma attacks; per pateint report. XOLAIR (OMALIZUMAB) 04/19/2012 12 - Shortness of Breath Date Reviewed: 10/31/2017 Reviewed by: Lamonte Guevara Ma - Fully Assessed Prescriptions as of 11/03/2017 Sig: TRIAMCINOLONE ACETONIDE 0.1 %* Apply 1 application to affect* DOXAZOSIN 4 MG TABLET Take 1 tablet by mouth once d* AMLODIPINE 10 MG TABLET Take 1 tablet by mouth once d* COMPOUNDED PRESCRIPTION Please fit for CPAP mask. Pat* CROMOLYN 20 MG/2 ML SOLUTION * Use 20 mg via nebulizer three* EPINEPHRINE 0.3 MG/0.3 ML INJ* Inject 0.3 mL intramuscularly* DIPHENHYDRAMINE 25 MG TABLET Take 1 tablet by mouth every * PREGABALIN 150 MG CAPSULE Take 1 capsule by mouth twice* PREGABALIN 150 MG CAPSULE Take 1 capsule by mouth twice* ATORVASTATIN 20 MG TABLET One tab on MWF only SPIRONOLACTONE 50 MG TABLET Take 1 tablet by mouth twice * LANSOPRAZOLE 30 MG CAPSULE,DE* TAKE 1 CAPSULE TWICE A DAY BUMETANIDE 0.5 MG TABLET Take 1 tablet by mouth once d* NITROGLYCERIN 0.4 MG SUBLINGU* DISSOLVE 1 TABLET UNDER THE T* ALBUTEROL SULFATE HFA 90 MCG/* Inhale 2 Puffs as instructed * FLUTICASONE 100 MCG-VILANTERO* Inhale 1 Inhalation as instru* Patient taking differently: Inhale 2 Inhalation as instru* LEVALBUTEROL 1.25 MG/3 ML BRENDA* Use 1 Ampule via nebulizer ev* FLUTICASONE 50 MCG/ACTUATION * 1-2 sprays each side qd BUDESONIDE 0.5 MG/2 ML SUSPEN* Use 1 Ampule via nebulizer tw* AZELASTINE 0.15 % (205.5 MCG)* Use 1 Wilberforce in each nostril t* COMPOUNDED PRESCRIPTION Nocturnal oximetry on room ai* CHOLESTYRAMINE (WITH SUGAR) 4* Take 1 scoop by mouth once da* CYANOCOBALAMIN (VIT B-12) 1,0* Take 1 tablet by mouth once d* ATENOLOL 25 MG TABLET Take 1 tablet by mouth once d* ERGOCALCIFEROL (VITAMIN D2) 5* Take 1 capsule by mouth once * Patient taking differently: Take 50,000 Units by mouth on* TURMERIC ROOT EXTRACT ORAL Take 1 tablet by mouth twice * CRISABOROLE 2 % TOPICAL OINTM* Apply to the hands twice daily COMPOUNDED PRESCRIPTION Please provide patient with n* CETIRIZINE 10 MG TABLET Take 10 mg by mouth once mary ellen* PIMECROLIMUS 1 % TOPICAL CREAM Apply twice daily to the hands ONDANSETRON HCL 4 MG TABLET Take 1 tablet by mouth every * BENZONATATE 200 MG CAPSULE Take 200 mg by mouth three ti* Patient not taking: Reported on 10/26/2017 LACTOBACILLUS RHAMNOSUS GG 10* Take 1 capsule by mouth twice* AMOXICILLIN 250 MG CAPSULE Take 250 mg by mouth once liam* ZAFIRLUKAST 20 MG TABLET Take 1 tablet by mouth twice * CYCLOSPORINE MODIFIED 50 MG C* Take 50 mg by mouth twice liam* ASCORBIC ACID (VITAMIN C) 500* Take 1 tablet by mouth once d* Progress Notes: Taty Philip PT 11/03/2017 5:11 PM Signed Episode Visit Count: 23 Therapist That Will Oversee The Plan Of Care: Taty Philip Start of Care Date: 07/21/17 Onset Date: 07/21/16 (about one year) Patient Identified by Name and Date of : Yes REHABILITATION AND SPORTS THERAPY PHYSICAL THERAPY TREATMENT NOTE ASSESSMENT: Ralph Joshi demonstrated improvements in progression of reps/sets of exercises and reduction of pain at end of session. The patient will continue to benefit from continued skilled physical therapy for manual soft tissue techniques and modalities?in order to further improve pain and function. PLAN FOR NEXT VISIT: Continue with focus on IASTM and manual techniques, ultrasound per symptoms. SUBJECTIVE: Pt reports she continues to have a burning type pain in lateral ankle/heel. She notes some releif following previous visit. Pain Score: 4/10 Pain Location: Ankle - Left;Heel - Left Description: Burning Frequency: Continuous Post Treatment Pain Score: 2/10 Pain Location: Ankle - Left OBJECTIVE MEASURES WITH LEVEL OF FUNCTION: Pt demonstrated good form and control during BAPS board activity. TREATMENT: Therapeutic Exercise: 3: Standing BAPS ball 3, with pegs, left PWB A/P, lateral and cw and ccw 2x10. 4: Lateral step up and over foam square 2 x 10 each direction. Skilled Intervention: Patient was educated in proper exercise technique and purpose for exercises. Reviewed and educated patient on additions/changes for home exercise program and pt to continue with current HEP. Skilled judgment was provided in selection of appropriate interventions. Correct performance of therapeutic exercises was facilitated with verbal and visual cuing. Patient education as noted. Manual Therapy: 1: IASTM with boomerang and tongue depressor left lateral malleolar/peroneal and gastroc region x 15 minutes with pressure to patient tolerance with pt in prone lying. Skilled Intervention: Manual skills to improve joint mobility, ROM, and decrease pain. Utilized anatomy knowledge of the therapist, and assessment of patient's response to intervention. Modalities: Ultrasound Body Region Treated - Ultrasound: Left lateral ankle, sub and posterior malleolar regions, peroneal tendon Patient Position: Prone lying Mode: 100% w/cm2: 1.2 MHZ: 1 Minutes: 10 See flowsheet for details regarding treatment. Skilled Intervention: Proper administration and selection of modality based on clinical presentation, deficits, and needs. Patient response monitored throughout treatment. Billing: [facility]: Therapeutic Exercise ([id number]): 1:1 time: 15 minutes (1 unit: 8-22 mins) Manual Therapy ([id number]): 1:1 time: 15 minutes (1 unit: 8-22 mins) Modalities Ultrasound ([id number]) 1:1 time: 10 minutes1 unit: 8-22 mins Total time: 40 minutes Taty Philip PT PROGRESS Observed: 11/03/2017 Status: COMPLETED Source: [place] 7:47 AM [facility] REPOSITORY O ID: [id number] Author: Taty (Pt) Cedrick Service: (none) Author Type: Physical Therapist Type: Progress Notes Filed: 11/03/2017 5:11 PM Note Text: Episode Visit Count: 23 Therapist That Will Oversee The Plan Of Care: Taty Philip Start of Care Date: 07/21/17 Onset Date: 07/21/16 (about one year) Patient Identified by Name and Date of : Yes REHABILITATION AND SPORTS THERAPY PHYSICAL THERAPY TREATMENT NOTE ASSESSMENT: Ralph Joshi demonstrated improvements in progression of reps/sets of exercises and reduction of pain at end of session. The patient will continue to benefit from continued skilled physical therapy for manual soft tissue techniques and modalities?in order to further improve pain and function. PLAN FOR NEXT VISIT: Continue with focus on IASTM and manual techniques, ultrasound per symptoms. SUBJECTIVE: Pt reports she continues to have a burning type pain in lateral ankle/heel. She notes some releif following previous visit. Pain Score: 4/10 Pain Location: Ankle - Left;Heel - Left Description: Burning Frequency: Continuous Post Treatment Pain Score: 2/10 Pain Location: Ankle - Left OBJECTIVE MEASURES WITH LEVEL OF FUNCTION: Pt demonstrated good form and control during BAPS board activity. TREATMENT: Therapeutic Exercise: 3: Standing BAPS ball 3, with pegs, left PWB A/P, lateral and cw and ccw 2x10. 4: Lateral step up and over foam square 2 x 10 each direction. Skilled Intervention: Patient was educated in proper exercise technique and purpose for exercises. Reviewed and educated patient on additions/changes for home exercise program and pt to continue with current HEP. Skilled judgment was provided in selection of appropriate interventions. Correct performance of therapeutic exercises was facilitated with verbal and visual cuing. Patient education as noted. Manual Therapy: 1: IASTM with boomerang and tongue depressor left lateral malleolar/peroneal and gastroc region x 15 minutes with pressure to patient tolerance with pt in prone lying. Skilled Intervention: Manual skills to improve joint mobility, ROM, and decrease pain. Utilized anatomy knowledge of the therapist, and assessment of patient's response to intervention. Modalities: Ultrasound Body Region Treated - Ultrasound: Left lateral ankle, sub and posterior malleolar regions, peroneal tendon Patient Position: Prone lying Mode: 100% w/cm2: 1.2 MHZ: 1 Minutes: 10 See flowsheet for details regarding treatment. Skilled Intervention: Proper administration and selection of modality based on clinical presentation, deficits, and needs. Patient response monitored throughout treatment. Billing: [facility]: Therapeutic Exercise ([id number]): 1:1 time: 15 minutes (1 unit: 8-22 mins) Manual Therapy ([id number]): 1:1 time: 15 minutes (1 unit: 8-22 mins) Modalities Ultrasound ([id number]) 1:1 time: 10 minutes1 unit: 8-22 mins Total time: 40 minutes Taty Philip, PT PROGRESS Observed: 11/01/2017 Status: COMPLETED Source: [place] 1:30 PM [facility] REPOS[facility] HNO ID: [id number] Author: Sydnie Thomas Service: (none) Author Type: (none) Type: Progress Notes Filed: 11/01/2017 1:30 PM Note Text: Radiology Service Progress Note PATIENT NAME: Ralph Joshi DATE OF SERVICE: November 01, 2017 TIME: 1:30 PM PATIENT IDENTITY VERIFICATION COMPLETED USING TWO (2) METHODS: Patient confirmed name verbally and Date of . PATIENT GENDER DATA: Female. status: : No status: NO. PATIENT RELEVANT IMPLANT DATA REVIEWED: Not Applicable RADIOLOGY DEPARTMENT: CT; Exam(s) Completed: adrenal w/o PERIPHERAL IV DATA: Not applicable SIGNED BY: Sydnie Thomas November 01, 2017 1:[address] ADRENAL WO IVCON Observed: 11/01/2017 Status: F Source: [place] 1:19 PM [facility] REPOSITORY * * *Final Report* * * DATE OF EXAM: Nov 01 2017 1:19PM [facility] [id number] - CT ADRENAL WO IVCON / PROCEDURE REASON: Disorder of adrenal gland, unspecified * * * * Physician Interpretation * * * * EXAMINATION: CT ABDOMEN / ADRENAL GLANDS WITHOUT IV CONTRAST CLINICAL HISTORY: Right adrenal adenoma TECHNIQUE: Thin section spiral imaging through the adrenal glands was performed without IV or oral contrast due to the clinical indication. This does limit the exam for some other diagnoses. MQ: [id number] Contrast: IV: None Oral: None CT Radiation dose: Integrated dose-length product (DLP) for this visit = 477 mGy*cm. CT Dose Reduction Employed: Automated exposure control (AEC) COMPARISON: 11/27/2015 RESULT: Adrenal glands: Right adrenal gland: Focal nodule / mass. Lesion characteristics: - Dimensions: 2.4-cm, previously measuring up to 2.3 cm on prior exam of 11/27/2015 - Non-contrast attenuation: -10.8 H.U. Left adrenal gland: No nodules, masses or thickening. Abdomen: Liver: Unremarkable unenhanced appearance of the liver. Biliary System: Cholecystectomy. No clear dilatation is evident. Spleen: No splenomegaly. Pancreas: No pancreatic duct dilation. Otherwise unremarkable unenhanced appearance. Kidneys: No stones or hydronephrosis. Lymph Nodes: No retroperitoneal adenopathy. A few prominent mesenteric nodes are present in the left paramedial abdomen, similar to prior exam of 2016. Mesentery/Peritoneum: No ascites. There is mild stranding of the upper abdominal left paramedial mesentery; this finding is similar to prior exam of 11/27/2015. GI Tract: Scattered colonic diverticuli. No bowel dilation. Vasculature: No abdominal aortic or iliac artery aneurysm. Lower thorax and bones: No focal consolidation or pleural effusion. Bibasilar atelectasis and/or scarring. No acute osseous abnormality. Degenerative changes are present in the spine. IMPRESSION: Right adrenal adenoma. 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 Transcribe Date/Time: Nov 01 2017 5:45P Dictated by : FAITH REED MD This examination was interpreted and the report reviewed and electronically signed by: FAITH REED MD on Nov 01 2017 5:52PM EST [id number] CNTHERAPY Observed: 11/01/2017 Status: COMPLETED Source: [place] 8:00 AM [facility] REPOS[facility] OT/PT/Speech Visit (PTWS) RALPH JOSHI ([id number]) 1955 F Date Time Provider Department 11/01/17 8:00 AM TATY PHILIP (PT) PTWS Date Time Provider Department Center 11/01/2017 8:00 AM [id number] PHILIP (PT) PTWS [facility] Reason for Visit: Physical Therapy [503] Primary Visit Diagnosis:Peroneal tendinitis, left [M76.72] Allergies As of Date: 11/01/2017 Noted Allergy Reaction AVOCADO 09/10/2014 10 - Anaphylaxis BANANA 09/10/2014 10 - Anaphylaxis CARBINOXAMINE 09/17/2012 10 - Anaphylaxis YOSELIN SEED 08/28/2013 10 - Anaphylaxis CIPROFLOXACIN 04/11/2014 10 - Anaphylaxis CODEINE 01/12/2012 10 - Anaphylaxis CONTRAST DYE 05/17/2013 10 - Anaphylaxis Comments: To MRI and CT FISH 09/07/2014 10 - Anaphylaxis HYCODAN (HYDROCODONE-HOMATROPINE) 09/08/2011 10 - Anaphylaxis Comments: Face and throat swelling LATEX 01/21/2014 10 - Anaphylaxis IMTIAZ-SYNEPHRINE (PHENYLEPHRINE HCL)09/04/2014 10 - Anaphylaxis Comments: 10% eye drop NICKEL 01/07/2014 2 - Rash 4 - Hives 10 - Anaphylaxis NSAIDS (NON-STEROIDAL ANTI-INFLAM*08/16/2010 14 - Other: See Comments Comments: Kidney function drops; reversible kidney damage. OXYCODONE 08/28/2013 10 - Anaphylaxis PERIACTIN (CYPROHEPTADINE) 09/17/2012 10 - Anaphylaxis PNEUMOCOCCAL VACCINE 10/31/2014 10 - Anaphylaxis SHELLFISH 09/07/2014 10 - Anaphylaxis ZANTAC (RANITIDINE) 09/17/2012 10 - Anaphylaxis ATIVAN (LORAZEPAM) 08/28/2013 14 - Other: See Comments Comments: hallucination BEE STING 10/31/2017 10 - Anaphylaxis BEEF CONTAINING PRODUCTS 09/10/2014 2 - Rash CORN 05/03/2011 14 - Other: See Comments Comments: Feels like an asthma attack. EGGS (EGG) 03/08/2011 2 - Rash 11 - Vomiting EKG LEADS (ADHESIVE) 10/22/2012 2 - Rash Comments: Localized,only under the leads environmental [Other] 06/26/2007 14 - Other: See Comments Comments: Nasal congestion, brings on an asthma attack. INFLUENZA VIRUS VACCINES 10/22/2012 12 - Shortness of Breath LISINOPRIL 04/20/2004 3 - Cough MILK 03/08/2011 2 - Rash 11 - Vomiting MOMETASONE 04/05/2017 10 - Anaphylaxis Comments: Per Dr. Salas she tolerates formoterol (on Breo at home) but is allergic to mometasone. Okayed by him to update. surgical tape [Other] 11/10/2009 2 - Rash 7 - Swelling Comments: Oral rash, swelling of eyes, asthma attacks; per pateint report. XOLAIR (OMALIZUMAB) 04/19/2012 12 - Shortness of Breath Date Reviewed: 10/31/2017 Reviewed by: Lamonte Guevara Ma - Fully Assessed Prescriptions as of 11/01/2017 Sig: TRIAMCINOLONE ACETONIDE 0.1 %* Apply 1 application to affect* DOXAZOSIN 4 MG TABLET Take 1 tablet by mouth once d* AMLODIPINE 10 MG TABLET Take 1 tablet by mouth once d* COMPOUNDED PRESCRIPTION Please fit for CPAP mask. Pat* CROMOLYN 20 MG/2 ML SOLUTION * Use 20 mg via nebulizer three* EPINEPHRINE 0.3 MG/0.3 ML INJ* Inject 0.3 mL intramuscularly* DIPHENHYDRAMINE 25 MG TABLET Take 1 tablet by mouth every * PREGABALIN 150 MG CAPSULE Take 1 capsule by mouth twice* PREGABALIN 150 MG CAPSULE Take 1 capsule by mouth twice* ATORVASTATIN 20 MG TABLET One tab on MWF only SPIRONOLACTONE 50 MG TABLET Take 1 tablet by mouth twice * LANSOPRAZOLE 30 MG CAPSULE,DE* TAKE 1 CAPSULE TWICE A DAY BUMETANIDE 0.5 MG TABLET Take 1 tablet by mouth once d* NITROGLYCERIN 0.4 MG SUBLINGU* DISSOLVE 1 TABLET UNDER THE T* ALBUTEROL SULFATE HFA 90 MCG/* Inhale 2 Puffs as instructed * FLUTICASONE 100 MCG-VILANTERO* Inhale 1 Inhalation as instru* Patient taking differently: Inhale 2 Inhalation as instru* LEVALBUTEROL 1.25 MG/3 ML BRENDA* Use 1 Ampule via nebulizer ev* FLUTICASONE 50 MCG/ACTUATION * 1-2 sprays each side qd BUDESONIDE 0.5 MG/2 ML SUSPEN* Use 1 Ampule via nebulizer tw* AZELASTINE 0.15 % (205.5 MCG)* Use 1 Wilberforce in each nostril t* COMPOUNDED PRESCRIPTION Nocturnal oximetry on room ai* CHOLESTYRAMINE (WITH SUGAR) 4* Take 1 scoop by mouth once da* CYANOCOBALAMIN (VIT B-12) 1,0* Take 1 tablet by mouth once d* ATENOLOL 25 MG TABLET Take 1 tablet by mouth once d* ERGOCALCIFEROL (VITAMIN D2) 5* Take 1 capsule by mouth once * Patient taking differently: Take 50,000 Units by mouth on* TURMERIC ROOT EXTRACT ORAL Take 1 tablet by mouth twice * CRISABOROLE 2 % TOPICAL OINTM* Apply to the hands twice daily COMPOUNDED PRESCRIPTION Please provide patient with n* CETIRIZINE 10 MG TABLET Take 10 mg by mouth once mary ellen* PIMECROLIMUS 1 % TOPICAL CREAM Apply twice daily to the hands ONDANSETRON HCL 4 MG TABLET Take 1 tablet by mouth every * BENZONATATE 200 MG CAPSULE Take 200 mg by mouth three ti* Patient not taking: Reported on 10/26/2017 LACTOBACILLUS RHAMNOSUS GG 10* Take 1 capsule by mouth twice* AMOXICILLIN 250 MG CAPSULE Take 250 mg by mouth once liam* ZAFIRLUKAST 20 MG TABLET Take 1 tablet by mouth twice * CYCLOSPORINE MODIFIED 50 MG C* Take 50 mg by mouth twice liam* ASCORBIC ACID (VITAMIN C) 500* Take 1 tablet by mouth once d* Progress Notes: Taty Philip, PT 11/01/2017 1:00 PM Signed Episode Visit Count: 22 Therapist That Will Oversee The Plan Of Care: Taty Philip Start of Care Date: 07/21/17 Onset Date: 07/21/16 (about one year) Patient Identified by Name and Date of : Yes REHABILITATION AND SPORTS THERAPY PHYSICAL THERAPY TREATMENT NOTE ASSESSMENT: Ralph Joshi demonstrated improvements in reduction of ankle edema from beginning of session to end. The patient will continue to benefit from continued skilled physical therapy for manual soft tissue techniques and modalities in order to further improve pain and function. PLAN FOR NEXT VISIT: Continue with focus on IASTM and manual techniques, ultrasound per symptoms. SUBJECTIVE: Pt with no significant complaints or reports of changes in symptoms. Rates pain slightly less than previous visit. Pain Score: 3/10 Pain Location: Ankle - Left Post Treatment Pain Score: 1/10 Pain Location: Ankle - Left OBJECTIVE MEASURES WITH LEVEL OF FUNCTION: Posture / Alignment LE Observations: Visible reduction of edema L ankle area by end of session compared to prior to treatment today. TREATMENT: Therapeutic Exercise: 3: ankle alphabet A-Z x 1. 4: Standing BAPS ball 3 left PWB A/P, lateral and cw and ccw 3x10. 5: Lateral step up and over foam square 2 x 10 each direction. Skilled Intervention: Patient was educated in proper exercise technique and purpose for exercises. Reviewed and educated patient on additions/changes for home exercise program and pt to continue with current HEP. Skilled judgment was provided in selection of appropriate interventions. Correct performance of therapeutic exercises was facilitated with verbal and visual cuing. Patient education as noted. Manual Therapy: 1: IASTM with boomerang and tongue depressor left lateral malleolar/peroneal and gastroc region x 15 minutes with pressure to patient tolerance with pt in prone lying. Skilled Intervention: Manual skills to improve joint mobility, ROM, and decrease pain. Utilized anatomy knowledge of the therapist, and assessment of patient's response to intervention. Modalities: Ultrasound Body Region Treated - Ultrasound: Left lateral ankle, sub and posterior malleolar regions, peroneal tendon Patient Position: Prone lying Mode: 100% w/cm2: 1.2 MHZ: 1 Minutes: 10 See flowsheet for details regarding treatment. Skilled Intervention: Proper administration and selection of modality based on clinical presentation, deficits, and needs. Patient response monitored throughout treatment. Billing: [facility]: Therapeutic Exercise (96865): 1:1 time: 15 minutes (1 unit: 8-22 mins) Manual Therapy (48612): 1:1 time: 15 minutes (1 unit: 8-22 mins) Modalities Ultrasound (39847) 1:1 time: 10 minutes1 unit: 8-22 mins Total time: 40 minutes Taty Philip, PT PROGRESS Observed: 11/01/2017 Status: COMPLETED Source: [place] 7:59 AM [facility] [place] REPOSITORY HNO ID: [id number] Author: Taty (Pt) Cedrick Service: (none) Author Type: Physical Therapist Type: Progress Notes Filed: 11/01/2017 1:00 PM Note Text: Episode Visit Count: 22 Therapist That Will Oversee The Plan Of Care: Taty Philip Start of Care Date: 07/21/17 Onset Date: 07/21/16 (about one year) Patient Identified by Name and Date of : Yes REHABILITATION AND SPORTS THERAPY PHYSICAL THERAPY TREATMENT NOTE ASSESSMENT: Ralph Joshi demonstrated improvements in reduction of ankle edema from beginning of session to end. The patient will continue to benefit from continued skilled physical therapy for manual soft tissue techniques and modalities in order to further improve pain and function. PLAN FOR NEXT VISIT: Continue with focus on IASTM and manual techniques, ultrasound per symptoms. SUBJECTIVE: Pt with no significant complaints or reports of changes in symptoms. Rates pain slightly less than previous visit. Pain Score: 3/10 Pain Location: Ankle - Left Post Treatment Pain Score: 1/10 Pain Location: Ankle - Left OBJECTIVE MEASURES WITH LEVEL OF FUNCTION: Posture / Alignment LE Observations: Visible reduction of edema L ankle area by end of session compared to prior to treatment today. TREATMENT: Therapeutic Exercise: 3: ankle alphabet A-Z x 1. 4: Standing BAPS ball 3 left PWB A/P, lateral and cw and ccw 3x10. 5: Lateral step up and over foam square 2 x 10 each direction. Skilled Intervention: Patient was educated in proper exercise technique and purpose for exercises. Reviewed and educated patient on additions/changes for home exercise program and pt to continue with current HEP. Skilled judgment was provided in selection of appropriate interventions. Correct performance of therapeutic exercises was facilitated with verbal and visual cuing. Patient education as noted. Manual Therapy: 1: IASTM with boomerang and tongue depressor left lateral malleolar/peroneal and gastroc region x 15 minutes with pressure to patient tolerance with pt in prone lying. Skilled Intervention: Manual skills to improve joint mobility, ROM, and decrease pain. Utilized anatomy knowledge of the therapist, and assessment of patient's response to intervention. Modalities: Ultrasound Body Region Treated - Ultrasound: Left lateral ankle, sub and posterior malleolar regions, peroneal tendon Patient Position: Prone lying Mode: 100% w/cm2: 1.2 MHZ: 1 Minutes: 10 See flowsheet for details regarding treatment. Skilled Intervention: Proper administration and selection of modality based on clinical presentation, deficits, and needs. Patient response monitored throughout treatment. Billing: [facility]: Therapeutic Exercise (95616): 1:1 time: 15 minutes (1 unit: 8-22 mins) Manual Therapy (93064): 1:1 time: 15 minutes (1 unit: 8-22 mins) Modalities Ultrasound (35642) 1:1 time: 10 minutes1 unit: 8-22 mins Total time: 40 minutes Taty Lemon, PT HPV W/GENOTYPE Collected: 10/31/2017 Status: F Source: [place] 9:17 AM [facility] REPOSITORY TYPE CODE TESTS RESULT OUT OF REFERENCE UNITS RANGE LAB HPVT16 HPV HighRisk Negative for Type 16 HPV DNA high risk type 16 by PCR. LAB HPVT18 HPV HighRisk Negative for Type 18 HPV DNA high risk type 18 by PCR. LAB HPVHRO HPV HighRisk Negative for Other HPV DNA high risk types: 31,33,35,39,45 ,51,52,56,58,5 9,66,68 by PCR. Result Comment: This test was developed and its performance characteristics determined by [facility]'s [facility] [place] ([facility]). It has not been cleared or approved by the FDA. -[facility] is regulated under CLIA as qualified to perform high-complexity testing. This test is used for clinical purposes. It should not be regarded as inv estigational or for research. Performed By: #### HPVHRR #### [facility] [address] [place], [place] [address] CYTOLOGY Observed: 10/31/2017 Status: C Source: [place] 9:17 [facility] REPOSITORY ADDITIONAL PROCEDURES PRESENT Specimen originated from [facility] Specimen #: [id number] Submitting Physician: DIDI SHABAZZ MD SPECIMEN SUBMITTED A: CERVICAL, SCREENING, FLUID FINAL DIAGNOSIS A. CERVICAL, SCREENING, FLUID Satisfactory for interpretation. Negative for intraepithelial lesion or malignancy. This specimen has been analyzed by the ThinPrep Imaging System, an automated imaging and review system, which assists the laboratory in evaluating cells on ThinPrep Pap tests. Following automated imaging, selected garcia from every slide are reviewed by a metalizer field operation. SUMAN Guerrero(ASCP) (Electronic Signature) ADDITIONAL PROCEDURE(S) HUMAN PAPILLOMA VIRUS Date Ordered: 11/01/2017 Date Reported: 11/02/2017 Procedure Results and Interpretation Negative for HPV DNA high risk type 16 by PCR. Negative for HPV DNA high risk type 18 by PCR. Negative for HPV DNA high risk types: 31,33,35,39,45,51,52,56,58,59,66,68 by PCR. This test was developed and its performance characteristics determined by [facility]'s [facility] [place] ([facility]). It has not been cleared or approved by the FDA. [facility] is regulated under CLIA as qualified to perform high-complexity testing. This test is used for clinical purposes. It should not be regarded as investigational or for research. 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 Diagnostic interpretation performed at [facility], [address] [place] [address]. The Pap Smear is a screening test for cervical cancer. False negative results occur with all screening tests, emphasizing the need for rescreening at recommended intervals, and clinical correlation. PROGRESS Observed: 10/31/2017 Status: COMPLETED Source: [place] 9:11 AM [facility] REPOSITORY HNO ID: [id number] Author: Didi Shabazz Service: (none) Author Type: Physician Type: Progress Notes Filed: 10/31/2017 9:14 AM Note Text: Ralph Joshi is a 62 year old who presents for her annual gynecologic exam without complaints. 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 One son with stage 4 colon cancer. Has one granddaughter age 3. Postmenopausal: Yes HRT use: No. Last Pap: 2012 normal HPV: 2012 negative History of abnormal pap: No Last mammogram: 2017 normal History of abnormal mammogram: No Sexually active: Yes History of STDS: None Patient concerns for STD exposure: No. Pain with intercourse: No Postcoital bleeding: No Hot flashes: No Night sweats: No Vaginal dryness: No Exercise: 30min stationary bike daily Diet: balanced- many allergies Obstetric History T3 L3 SAB0 TAB0 Ectopic0 Multiple0 Live Births0 Comment: Menarche age 14, lmp 09/12/2010 PAST MEDICAL HISTORY Diagnosis Date - Abdominal pain, other specified site - ACNE NEC 01/21/2008 - Actinic Keratosis (Premalignant AK) 06/05/2011 - ACUTE GASTRITIS W/O HEMORRHAGE 04/26/2007 - Allergic rhinitis 04/23/2012 - Anaphylactic reaction ideopathic - Benign tumor of adrenal gland - Biliary dyskinesia 10/29/2009 - Cervical herniated disc 10/20/2016 - Cervical myelopathy (HCC) 10/25/2016 - Cervical radiculitis 10/20/2016 - Cervical spondylosis with radiculopathy 11/17/2015 - JAIN ANGIOMA///NEVUS, NON-NEOPLASTIC 05/28/2007 - CKD (chronic kidney disease) stage 3, GFR 30-59 ml/min (HCC) 04/29/2013 - Diaphragmatic hernia without mention of obstruction or gangrene 05/25/2011 - Diverticulosis of colon (without mention of hemorrhage) - Edema 07/07/2004 - Epigastric pain - GERD (gastroesophageal reflux disease) - HTN (hypertension) 2002 controlled on Diovan - Hyperlipidemia 10/15/2013 - IRON DEFIC ANEMIA NOS 04/26/2007 - Moderate persistent asthma without complication 02/18/2015 - Ovarian cyst Benign ovarian cyst, S/P laparoscopic LSO - Ptosis of eyelid, bilateral 12/23/2016 Added automatically from request for surgery [id number] - Shoulder impingement 11/17/2015 - Sleep apnea intollerant to CPAP because allergic to material on mask - Steroid-induced hyperglycemia 09/06/2014 - TACHYCARDIA NOS 01/09/2006 - Tarsal tunnel syndrome 12/23/2009 - Tear of lateral meniscus of knee 02/21/2014 - Ulcerative colitis, unspecified - UTERINE LEIOMYOMA NOS 12/23/2005 - VIRAL WARTS NOS 05/09/2006 - Vocal cord dysfunction PAST SURGICAL HISTORY Procedure Laterality Date - CHOLECYSTECTOMY HX - COLONOSCOP W/ OR W/O [facility] SPEC 09/06/2005 Colonoscopy - COLONOSCOP W/ OR W/O [facility] SPEC Colonoscopy - COLONOSCOP W/ OR W/O [facility] SPEC 05/28/2012 Colonoscopy repeat 5 years. - EGD 07/29/14 normal - EGD W/O OR W/BRUSH/WASH 09/06/2005 EGD - EGD W/O OR W/BRUSH/WASH 04/26/2007 EGD - EGD W/O OR W/BRUSH/WASH 05/25/2011 EGD - EGD W/O OR W/BRUSH/WASH 05/28/2012 EGD - L'SCOPE REM ADNEX W/PART/TOT OOPH/SALP 06/11/2009 Laparoscopic LSO for benign ovarian cyst - LAMINECTOMY,CERVICAL 10/2016 - LAP CHOLECYSTECT/CHOLANGIOGRAPHY 10/30/09 Normal IO - ORTHOPEDICS SURGERY HX 12/2013 repaired Rt achilles tendon - PAST SURGICAL HISTORY OF 09/19 left foot surgery on heel and repaired torn tdndon - SIGMOIDOSCOPY FLEX DIAG 05/20/08 - TARSAL TUNNEL RELEASE 07/2010 Left foot FAMILY HISTORY Problem Relation Age of Onset - Colon Cancer Father dx age 60. Alive at 85. - Hypertension Father Alive at 85. - Cataract Father Alive at 85. - Thyroid Father Alive at 85. - Heart Father [place] at 87 - Diabetes Mother colon polyps. age 72. - Hypertension Mother age 72. - benign brainstem tumor [OTHER] Mother Persistent vegetative state. age 72. - defects Sister infant - Glaucoma Maternal Grandmother - Stroke Maternal Grandfather - Cancer Paternal Grandmother cervical - Colon Cancer Son 38 colon and rectal cancer - Breast Cancer Sister Developed in late 20s. Alive at 52. - Osteoporosis Sister - colon polyps [OTHER] Sister 3 sisters with colon polyps SOCIAL HISTORY Social History Substance Use Topics - Smoking status: Never Smoker - Smokeless tobacco: Never Used - Alcohol use No REVIEW OF SYSTEMS Abdomen: + IBS type symptoms- occasional RLQ discomfort. No pain today Bladder: No dysuria, gross hematuria, urinary frequency, urinary urgency, or incontinence Breast: No breast lumps, nipple d/c, overlying skin changes, redness or skin retraction Allergies and current medication updated:Yes EXAM: BP 144/80 Ht 5' 4.25 (1.63m) Wt 212 lb (96.2kg) LMP 08/07/2013 BMI 36.11 kg/(m2). GENERAL: pleasant, female in no apparent distress HEENT: Normocephalic, atraumatic, mucus membranes moist and no lesions NECK: Supple, full range of motion, no adenopathy and thyroid normal DERMATOLOGY: Normal, without lesions, non-icteric and non-hirsute BREAST: soft, non-tender, symmetric, no dominant mass, normal nipple-areolar complex, no lymphadenopathy and no nipple discharge ABDOMEN: soft, non-tender and no masses PELVIC: external genitalia normal, normal Bartholin's glands, urethra, [place]'s glands, no vulvar lesions, no cervical lesions, good vaginal support, physiologic discharge present, normal appearing perineal body and perianal region BIMANUAL: uterus normal size, shape and consistency, no adnexal masses and non-tender RECTOVAGINAL: deferred. NEURO: alert and oriented x3,exam grossly non-focal EXTREMITIES: normal ASSESSMENT/PLAN: 1) Health maintenance: Pap done with HPV. Mammogram ordered Mammogram up to date Nutrition, exercise and routine health maintenance exams reviewed. Calcium/Vitamin D supplementation information provided. Colon cancer screening: up to date with screening 2) Follow up one year or sooner as needed Didi Paulson MD CNOV Observed: 10/31/2017 Status: COMPLETED Source: [place] 9:05 AM [facility] REPOSITORY Office Visit (WOOB) RALPH JOSHI ([id number]) 1955 F Date Time Provider Department 10/31/17 9:05 AM DIDI LAMB WOCARLOS ALBERTO During your visit today, we recorded the following information about you: Blood pressure Weight Height 144/80 96.2 kg 1.632 m Didi Paulson MD 10/31/2017 9:14 AM Signed Ralph Joshi is a 62 year old who presents for her annual gynecologic exam without complaints. 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 One son with stage 4 colon cancer. Has one granddaughter age 3. Postmenopausal: Yes HRT use: No. Last Pap: 2012 normal HPV: 2013 negative History of abnormal pap: No Last mammogram: 2018 normal History of abnormal mammogram: No Sexually active: Yes History of STDS: None Patient concerns for STD exposure: No. Pain with intercourse: No Postcoital bleeding: No Hot flashes: No Night sweats: No Vaginal dryness: No Exercise: 30min stationary bike daily Diet: balanced- many allergies Obstetric History T3 L3 SAB0 TAB0 Ectopic0 Multiple0 Live Births0 Comment: Menarche age 14, lmp 09/12/2010 PAST MEDICAL HISTORY Diagnosis Date - Abdominal pain, other specified site - ACNE NEC 01/21/2008 - Actinic Keratosis (Premalignant AK) 06/05/2011 - ACUTE GASTRITIS W/O HEMORRHAGE 04/26/2007 - Allergic rhinitis 04/23/2012 - Anaphylactic reaction ideopathic - Benign tumor of adrenal gland - Biliary dyskinesia 10/29/2009 - Cervical herniated disc 10/20/2016 - Cervical myelopathy (HCC) 10/25/2016 - Cervical radiculitis 10/20/2016 - Cervical spondylosis with radiculopathy 11/17/2015 - JAIN ANGIOMA///NEVUS, NON-NEOPLASTIC 05/28/2007 - CKD (chronic kidney disease) stage 3, GFR 30-59 ml/min (HCC) 04/29/2013 - Diaphragmatic hernia without mention of obstruction or gangrene 05/25/2011 - Diverticulosis of colon (without mention of hemorrhage) - Edema 07/07/2004 - Epigastric pain - GERD (gastroesophageal reflux disease) - HTN (hypertension) 2002 controlled on Diovan - Hyperlipidemia 10/15/2013 - IRON DEFIC ANEMIA NOS 04/26/2007 - Moderate persistent asthma without complication 02/18/2015 - Ovarian cyst Benign ovarian cyst, S/P laparoscopic LSO - Ptosis of eyelid, bilateral 12/23/2016 Added automatically from request for surgery [id number] - Shoulder impingement 11/17/2015 - Sleep apnea intollerant to CPAP because allergic to material on mask - Steroid-induced hyperglycemia 09/06/2014 - TACHYCARDIA NOS 01/09/2006 - Tarsal tunnel syndrome 12/23/2009 - Tear of lateral meniscus of knee 02/21/2014 - Ulcerative colitis, unspecified - UTERINE LEIOMYOMA NOS 12/23/2005 - VIRAL WARTS NOS 05/09/2006 - Vocal cord dysfunction PAST SURGICAL HISTORY Procedure Laterality Date - CHOLECYSTECTOMY HX - COLONOSCOP W/ OR W/O [facility] SPEC 09/06/2005 Colonoscopy - COLONOSCOP W/ OR W/O [facility] SPEC Colonoscopy - COLONOSCOP W/ OR W/O [facility] SPEC 05/28/2012 Colonoscopy repeat 5 years. - EGD 07/29/14 normal - EGD W/O OR W/BRUSH/WASH 09/06/2005 EGD - EGD W/O OR W/BRUSH/WASH 04/26/2007 EGD - EGD W/O OR W/BRUSH/WASH 05/25/2011 EGD - EGD W/O OR W/BRUSH/WASH 05/28/2012 EGD - L'SCOPE REM ADNEX W/PART/TOT OOPH/SALP 06/11/2009 Laparoscopic LSO for benign ovarian cyst - LAMINECTOMY,CERVICAL 10/2016 - LAP CHOLECYSTECT/CHOLANGIOGRAPHY 10/30/09 Normal IOC - ORTHOPEDICS SURGERY HX 12/2013 repaired Rt achilles tendon - PAST SURGICAL HISTORY OF 09/19 left foot surgery on heel and repaired torn tdndon - SIGMOIDOSCOPY FLEX DIAG 05/20/08 - TARSAL TUNNEL RELEASE 07/2010 Left foot FAMILY HISTORY Problem Relation Age of Onset - Colon Cancer Father dx age 60. Alive at 85. - Hypertension Father Alive at 85. - Cataract Father Alive at 85. - Thyroid Father Alive at 85. - Heart Father [place] at 87 - Diabetes Mother colon polyps. age 72. - Hypertension Mother age 72. - benign brainstem tumor [OTHER] Mother Persistent vegetative state. age 72. - defects Sister infant - Glaucoma Maternal Grandmother - Stroke Maternal Grandfather - Cancer Paternal Grandmother cervical - Colon Cancer Son 38 colon and rectal cancer - Breast Cancer Sister Developed in late 20s. Alive at 52. - Osteoporosis Sister - colon polyps [OTHER] Sister 3 sisters with colon polyps SOCIAL HISTORY Social History Substance Use Topics - Smoking status: Never Smoker - Smokeless tobacco: Never Used - Alcohol use No REVIEW OF SYSTEMS Abdomen: + IBS type symptoms- occasional RLQ discomfort. No pain today Bladder: No dysuria, gross hematuria, urinary frequency, urinary urgency, or incontinence Breast: No breast lumps, nipple d/c, overlying skin changes, redness or skin retraction Allergies and current medication updated:Yes EXAM: BP 144/80 Ht 5' 4.25 (1.63m) Wt 212 lb (96.2kg) LMP 08/07/2013 BMI 36.11 kg/(m2). GENERAL: pleasant, female in no apparent distress HEENT: Normocephalic, atraumatic, mucus membranes moist and no lesions NECK: Supple, full range of motion, no adenopathy and thyroid normal DERMATOLOGY: Normal, without lesions, non-icteric and non-hirsute BREAST: soft, non-tender, symmetric, no dominant mass, normal nipple-areolar complex, no lymphadenopathy and no nipple discharge ABDOMEN: soft, non-tender and no masses PELVIC: external genitalia normal, normal Bartholin's glands, urethra, [place]'s glands, no vulvar lesions, no cervical lesions, good vaginal support, physiologic discharge present, normal appearing perineal body and perianal region BIMANUAL: uterus normal size, shape and consistency, no adnexal masses and non-tender RECTOVAGINAL: deferred. NEURO: alert and oriented x3,exam grossly non-focal EXTREMITIES: normal ASSESSMENT/PLAN: 1) Health maintenance: Pap done with HPV. Mammogram ordered Mammogram up to date Nutrition, exercise and routine health maintenance exams reviewed. Calcium/Vitamin D supplementation information provided. Colon cancer screening: up to date with screening 2) Follow up one year or sooner as needed MD Lamonte Love Ma 10/31/2017 9:16 AM Signed Addended by: LAMONTE GUEVARA MA on: 10/31/2017 09:16 AM Modules accepted: Orders Didi Paulson MD 10/31/2017 9:17 AM Signed Addended by: DIDI SHABAZZ MD on: 10/31/2017 09:17 AM Modules accepted: Orders Lisandra Grier Psnohemy 11/07/2017 8:53 AM Signed Pap logged and normal pap letter mailed to patient. Lisandra Grier Psr Referring Provider: SELF [[id number]] Allergies As of Date: 10/31/2017 Noted Allergy Reaction AVOCADO 09/10/2014 10 - Anaphylaxis BANANA 09/10/2014 10 - Anaphylaxis CARBINOXAMINE 09/17/2012 10 - Anaphylaxis YOSELIN SEED 08/28/2013 10 - Anaphylaxis CIPROFLOXACIN 04/11/2014 10 - Anaphylaxis CODEINE 01/12/2012 10 - Anaphylaxis CONTRAST DYE 05/17/2013 10 - Anaphylaxis Comments: To MRI and CT FISH 09/07/2014 10 - Anaphylaxis HYCODAN (HYDROCODONE-HOMATROPINE) 09/08/2011 10 - Anaphylaxis Comments: Face and throat swelling LATEX 01/21/2014 10 - Anaphylaxis IMTIAZ-SYNEPHRINE (PHENYLEPHRINE HCL)09/04/2014 10 - Anaphylaxis Comments: 10% eye drop NICKEL 01/07/2014 2 - Rash 4 - Hives 10 - Anaphylaxis NSAIDS (NON-STEROIDAL ANTI-INFLAM*08/16/2010 14 - Other: See Comments Comments: Kidney function drops; reversible kidney damage. OXYCODONE 08/28/2013 10 - Anaphylaxis PERIACTIN (CYPROHEPTADINE) 09/17/2012 10 - Anaphylaxis PNEUMOCOCCAL VACCINE 10/31/2014 10 - Anaphylaxis SHELLFISH 09/07/2014 10 - Anaphylaxis ZANTAC (RANITIDINE) 09/17/2012 10 - Anaphylaxis ATIVAN (LORAZEPAM) 08/28/2013 14 - Other: See Comments Comments: hallucination BEE STING 10/31/2017 10 - Anaphylaxis BEEF CONTAINING PRODUCTS 09/10/2014 2 - Rash CORN 05/03/2011 14 - Other: See Comments Comments: Feels like an asthma attack. EGGS (EGG) 03/08/2011 2 - Rash 11 - Vomiting EKG LEADS (ADHESIVE) 10/22/2012 2 - Rash Comments: Localized,only under the leads environmental [Other] 06/26/2007 14 - Other: See Comments Comments: Nasal congestion, brings on an asthma attack. INFLUENZA VIRUS VACCINES 10/22/2012 12 - Shortness of Breath LISINOPRIL 04/20/2004 3 - Cough MILK 03/08/2011 2 - Rash 11 - Vomiting MOMETASONE 04/05/2017 10 - Anaphylaxis Comments: Per Dr. Salas she tolerates formoterol (on Breo at home) but is allergic to mometasone. Okayed by him to update. surgical tape [Other] 11/10/2009 2 - Rash 7 - Swelling Comments: Oral rash, swelling of eyes, asthma attacks; per pateint report. XOLAIR (OMALIZUMAB) 04/19/2012 12 - Shortness of Breath Date Reviewed: 10/31/2017 Reviewed by: Lamonte Guevara Ma - Fully Assessed Reason for Visit: Yearly Exam [187] Primary Visit Diagnosis:Encounter for gynecological examination without abnormal finding [Z01.419] Other Visit Diagnoses:Encounter for screening for malignant neoplasm of cervix [Z12.4] Special screening examination for human papillomavirus (HPV) [Z11.51] Order(s):PAP FLUID CERVICAL SCREENING [[id number]] Order #: [id number]. #:[id number] HPV W/GENOTYPE [SQHPVHRR] Order #: [id number]. #:[id number] Prescriptions as of 10/31/2017 Sig: TRIAMCINOLONE ACETONIDE 0.1 %* Apply 1 application to affect* DOXAZOSIN 4 MG TABLET Take 1 tablet by mouth once d* AMLODIPINE 10 MG TABLET Take 1 tablet by mouth once d* COMPOUNDED PRESCRIPTION Please fit for CPAP mask. Pat* CROMOLYN 20 MG/2 ML SOLUTION * Use 20 mg via nebulizer three* EPINEPHRINE 0.3 MG/0.3 ML INJ* Inject 0.3 mL intramuscularly* DIPHENHYDRAMINE 25 MG TABLET Take 1 tablet by mouth every * PREGABALIN 150 MG CAPSULE Take 1 capsule by mouth twice* PREGABALIN 150 MG CAPSULE Take 1 capsule by mouth twice* ATORVASTATIN 20 MG TABLET One tab on MWF only SPIRONOLACTONE 50 MG TABLET Take 1 tablet by mouth twice * LANSOPRAZOLE 30 MG CAPSULE,DE* TAKE 1 CAPSULE TWICE A DAY BUMETANIDE 0.5 MG TABLET Take 1 tablet by mouth once d* NITROGLYCERIN 0.4 MG SUBLINGU* DISSOLVE 1 TABLET UNDER THE T* ALBUTEROL SULFATE HFA 90 MCG/* Inhale 2 Puffs as instructed * FLUTICASONE 100 MCG-VILANTERO* Inhale 1 Inhalation as instru* Patient taking differently: Inhale 2 Inhalation as instru* LEVALBUTEROL 1.25 MG/3 ML BRENDA* Use 1 Ampule via nebulizer ev* FLUTICASONE 50 MCG/ACTUATION * 1-2 sprays each side qd BUDESONIDE 0.5 MG/2 ML SUSPEN* Use 1 Ampule via nebulizer tw* AZELASTINE 0.15 % (205.5 MCG)* Use 1 [place] in each nostril t* COMPOUNDED PRESCRIPTION Nocturnal oximetry on room ai* CHOLESTYRAMINE (WITH SUGAR) 4* Take 1 scoop by mouth once da* CYANOCOBALAMIN (VIT B-12) 1,0* Take 1 tablet by mouth once d* ATENOLOL 25 MG TABLET Take 1 tablet by mouth once d* ERGOCALCIFEROL (VITAMIN D2) 5* Take 1 capsule by mouth once * Patient taking differently: Take 50,000 Units by mouth on* TURMERIC ROOT EXTRACT ORAL Take 1 tablet by mouth twice * CRISABOROLE 2 % TOPICAL OINTM* Apply to the hands twice daily COMPOUNDED PRESCRIPTION Please provide patient with n* CETIRIZINE 10 MG TABLET Take 10 mg by mouth once mary ellen* PIMECROLIMUS 1 % TOPICAL CREAM Apply twice daily to the hands ONDANSETRON HCL 4 MG TABLET Take 1 tablet by mouth every * BENZONATATE 200 MG CAPSULE Take 200 mg by mouth three ti* Patient not taking: Reported on 10/26/2017 LACTOBACILLUS RHAMNOSUS GG 10* Take 1 capsule by mouth twice* AMOXICILLIN 250 MG CAPSULE Take 250 mg by mouth once liam* ZAFIRLUKAST 20 MG TABLET Take 1 tablet by mouth twice * CYCLOSPORINE MODIFIED 50 MG C* Take 50 mg by mouth twice liam* ASCORBIC ACID (VITAMIN C) 500* Take 1 tablet by mouth once d* Problem List As Of Date 10/31/2017 Noted Resolved JOINT PAIN-ANKLE [M25.579] INVALID FOR*03/20/2014 Edema [R60.9] INVALID FOR*03/28/2016 Priority: I Adrenal nodule (HCC) [E27.9] INVALID FOR* More... Diarrhea [R19.7] INVALID FOR*10/15/2013 Excessive or frequent menstruation [N92.0] INVALID FOR*07/14/2011 Shortness of breath [R06.02] INVALID FOR*10/15/2013 Palpitations [R00.2] INVALID FOR*03/20/2014 Tachycardia, unspecified [R00.0] INVALID FOR*10/15/2013 More... Open wound site NOS [T14.8XXA] INVALID FOR*07/16/2011 Abdominal pain, right upper quadrant [R10.11] INVALID FOR*07/14/2011 More... Acute gastritis without mention of hemorrhage [*INVALID FOR*10/15/2013 Hematuria [599.7] INVALID FOR*07/14/2011 URGE INCONTINENCE [N39.41] INVALID FOR* FEMALE STRESS INCONTINENCE [N39.3] INVALID FOR* Scar, hypertrophic [L91.0] INVALID FOR*10/15/2013 Ovarian cyst [N83.209] INVALID FOR*07/06/2010 Cyst INVALID FOR*10/15/2013 Other specified pre-operative examination [Z01.*INVALID FOR*07/16/2011 Hirsutism [L68.0] INVALID FOR* Dysphagia [R13.10] INVALID FOR*03/20/2014 GERD (gastroesophageal reflux disease) [K21.9] INVALID FOR* Priority: D More... 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 Obesity (BMI 30.0-34.9) [E66.9] INVALID FOR* More... More... More... More... Idiopathic anaphylaxis [T78.2XXA] INVALID FOR* Priority: A More... Urticaria, idiopathic [L50.1] INVALID FOR*03/28/2016 More... Hyperlipidemia LDL goal <100 [E78.5] INVALID FOR* Impaired fasting glucose [R73.01] INVALID FOR* Recurrent chest pain [R07.9, G89.29] INVALID FOR*12/09/2014 Multinodular goiter [E04.2] INVALID FOR* More... CKD (chronic kidney disease) stage 3, GFR 30-59*INVALID FOR* Pain in joint, ankle and foot [M25.579] INVALID FOR*12/09/2014 More... More... Steroid-induced hyperglycemia [R73.9, T38.0X5A] INVALID FOR*03/28/2016 Priority: C Moderate persistent asthma without complication*INVALID FOR* Ulcerative colitis without complications (HCC) *INVALID FOR* Anaphylaxis [T78.2XXA] INVALID FOR*03/26/2015 More... Neck pain, bilateral [M54.2] INVALID FOR*03/28/2016 Essential hypertension with goal blood pressure*INVALID FOR*03/28/2016 Chronic nausea [R11.0] INVALID FOR* Lumbar radiculitis [M54.16] INVALID FOR*03/28/2016 Lumbar stenosis [M48.061] INVALID FOR*03/28/2016 Acquired spondylolisthesis [M43.10] INVALID FOR*03/28/2016 Cervical radiculitis [M54.12] INVALID FOR*03/28/2016 Cervical spondylosis with radiculopathy [M47.22]INVALID FOR*03/29/2017 Shoulder impingement [M75.40] INVALID FOR*03/28/2016 Anaphylaxis [T78.2XXA] INVALID FOR*03/28/2016 Tendonitis, tibialis [M76.829] INVALID FOR*05/09/2016 Lumbar stenosis [M48.061] INVALID FOR* Cervical radiculitis [M54.12] INVALID FOR*03/29/2017 Cervical herniated disc [M50.20] INVALID FOR*03/29/2017 Cervical stenosis of spine [M48.02] INVALID FOR* Cervical spondylosis with myelopathy [M47.12] INVALID FOR*03/29/2017 Cervical myelopathy (HCC) [G95.9] INVALID FOR*03/29/2017 Claustrophobia [F40.240] INVALID FOR* Ptosis of eyelid, bilateral [H02.403] INVALID FOR*03/29/2017 More... Lumbar spondylosis [M47.816] INVALID FOR* More... Preop testing [Z01.818] INVALID FOR* More... Anaphylaxis [T78.2XXA] INVALID FOR* Essential hypertension [I10] INVALID FOR* Peroneal tendinitis, left [M76.72] INVALID FOR* Disposition: Return in 1 year (on 10/31/2018) for Annual Exam. Follow-up and Disposition History Recorded Letter Text Didi Shabazz MD [facility] [address] [place], [place] [id number] Ralph Joshi [address] [place] [address] 11/07/2017 [facility]: [id number] Dear Ralph, We are pleased to inform you that your recent Pap Test was within normal limits. Because Pap tests are so effective in the early detection of cervical cancer, you are encouraged to continue having the test at regular intervals. You will be due for a 1 year Gynecological Exam after this date 10/31/2018. If you have any questions regarding the above information, do not hesitate to call our office at between the hours of 8:00 a.m. and 5:00 p.m. Sincerely, Didi Shabazz MD Encounter Status:Closed by DIDI SHABAZZ MD on 10/31/17 CNTHERAPY Observed: 10/27/2017 Status: COMPLETED Source: [place] 8:00 AM [facility] REPOSITORY OT/PT/Speech Visit (PTWS) RALPH JOSHI ([id number]) 1955 F Date Time Provider Department 10/27/17 8:00 AM KARTIKDOLORESTATY (PT) PTWS Date Time Provider Department [place] 10/27/2017 8:00 AM [id number] PHILIP (PT) PTWS [facility] Reason for Visit: PT Progress Note [1596] Primary Visit Diagnosis:Peroneal tendinitis, left [M76.72] Allergies As of Date: 10/27/2017 Noted Allergy Reaction AVOCADO 09/10/2014 10 - Anaphylaxis BANANA 09/10/2014 10 - Anaphylaxis CARBINOXAMINE 09/17/2012 10 - Anaphylaxis YOSELIN SEED 08/28/2013 10 - Anaphylaxis CIPROFLOXACIN 04/11/2014 10 - Anaphylaxis CODEINE 01/12/2012 10 - Anaphylaxis CONTRAST DYE 05/17/2013 10 - Anaphylaxis Comments: To MRI and CT FISH 09/07/2014 10 - Anaphylaxis HYCODAN (HYDROCODONE-HOMATROPINE) 09/08/2011 10 - Anaphylaxis Comments: Face and throat swelling LATEX 01/21/2014 10 - Anaphylaxis IMTIAZ-SYNEPHRINE (PHENYLEPHRINE HCL)09/04/2014 10 - Anaphylaxis Comments: 10% eye drop NICKEL 01/07/2014 2 - Rash 4 - Hives 10 - Anaphylaxis NSAIDS (NON-STEROIDAL ANTI-INFLAM*08/16/2010 14 - Other: See Comments Comments: Kidney function drops; reversible kidney damage. OXYCODONE 08/28/2013 10 - Anaphylaxis PERIACTIN (CYPROHEPTADINE) 09/17/2012 10 - Anaphylaxis PNEUMOCOCCAL VACCINE 10/31/2014 10 - Anaphylaxis SHELLFISH 09/07/2014 10 - Anaphylaxis ZANTAC (RANITIDINE) 09/17/2012 10 - Anaphylaxis ATIVAN (LORAZEPAM) 08/28/2013 14 - Other: See Comments Comments: hallucination BEEF CONTAINING PRODUCTS 09/10/2014 2 - Rash CORN 05/03/2011 14 - Other: See Comments Comments: Feels like an asthma attack. EGGS (EGG) 03/08/2011 2 - Rash 11 - Vomiting EKG LEADS (ADHESIVE) 10/22/2012 2 - Rash Comments: Localized,only under the leads environmental [Other] 06/26/2007 14 - Other: See Comments Comments: Nasal congestion, brings on an asthma attack. INFLUENZA VIRUS VACCINES 10/22/2012 12 - Shortness of Breath LISINOPRIL 04/20/2004 3 - Cough MILK 03/08/2011 2 - Rash 11 - Vomiting MOMETASONE 04/05/2017 10 - Anaphylaxis Comments: Per Dr. Salas she tolerates formoterol (on Breo at home) but is allergic to mometasone. Okayed by him to update. surgical tape [Other] 11/10/2009 2 - Rash 7 - Swelling Comments: Oral rash, swelling of eyes, asthma attacks; per pateint report. XOLAIR (OMALIZUMAB) 04/19/2012 12 - Shortness of Breath Date Reviewed: 10/26/2017 Reviewed by: Taty Lawler Ma - Fully Assessed Prescriptions as of 10/27/2017 Sig: TRIAMCINOLONE ACETONIDE 0.1 %* Apply 1 application to affect* DOXAZOSIN 4 MG TABLET Take 1 tablet by mouth once d* AMLODIPINE 10 MG TABLET Take 1 tablet by mouth once d* COMPOUNDED PRESCRIPTION Please fit for CPAP mask. Pat* CROMOLYN 20 MG/2 ML SOLUTION * Use 20 mg via nebulizer three* EPINEPHRINE 0.3 MG/0.3 ML INJ* Inject 0.3 mL intramuscularly* DIPHENHYDRAMINE 25 MG TABLET Take 1 tablet by mouth every * PREGABALIN 150 MG CAPSULE Take 1 capsule by mouth twice* PREGABALIN 150 MG CAPSULE Take 1 capsule by mouth twice* ATORVASTATIN 20 MG TABLET One tab on MWF only SPIRONOLACTONE 50 MG TABLET Take 1 tablet by mouth twice * LANSOPRAZOLE 30 MG CAPSULE,DE* TAKE 1 CAPSULE TWICE A DAY BUMETANIDE 0.5 MG TABLET Take 1 tablet by mouth once d* NITROGLYCERIN 0.4 MG SUBLINGU* DISSOLVE 1 TABLET UNDER THE T* ALBUTEROL SULFATE HFA 90 MCG/* Inhale 2 Puffs as instructed * FLUTICASONE 100 MCG-VILANTERO* Inhale 1 Inhalation as instru* Patient taking differently: Inhale 2 Inhalation as instru* LEVALBUTEROL 1.25 MG/3 ML BRENDA* Use 1 Ampule via nebulizer ev* FLUTICASONE 50 MCG/ACTUATION * 1-2 sprays each side qd BUDESONIDE 0.5 MG/2 ML SUSPEN* Use 1 Ampule via nebulizer tw* AZELASTINE 0.15 % (205.5 MCG)* Use 1 [place] in each nostril t* COMPOUNDED PRESCRIPTION Nocturnal oximetry on room ai* CHOLESTYRAMINE (WITH SUGAR) 4* Take 1 scoop by mouth once da* CYANOCOBALAMIN (VIT B-12) 1,0* Take 1 tablet by mouth once d* ATENOLOL 25 MG TABLET Take 1 tablet by mouth once d* ERGOCALCIFEROL (VITAMIN D2) 5* Take 1 capsule by mouth once * Patient taking differently: Take 50,000 Units by mouth on* TURMERIC ROOT EXTRACT ORAL Take 1 tablet by mouth twice * CRISABOROLE 2 % TOPICAL OINTM* Apply to the hands twice daily COMPOUNDED PRESCRIPTION Please provide patient with n* CETIRIZINE 10 MG TABLET Take 10 mg by mouth once mary ellen* PIMECROLIMUS 1 % TOPICAL CREAM Apply twice daily to the hands ONDANSETRON HCL 4 MG TABLET Take 1 tablet by mouth every * BENZONATATE 200 MG CAPSULE Take 200 mg by mouth three ti* Patient not taking: Reported on 10/26/2017 LACTOBACILLUS RHAMNOSUS GG 10* Take 1 capsule by mouth twice* AMOXICILLIN 250 MG CAPSULE Take 250 mg by mouth once liam* ZAFIRLUKAST 20 MG TABLET Take 1 tablet by mouth twice * CYCLOSPORINE MODIFIED 50 MG C* Take 50 mg by mouth twice liam* ASCORBIC ACID (VITAMIN C) 500* Take 1 tablet by mouth once d* Progress Notes: Taty Philip PT 10/27/2017 12:53 PM Signed Episode Visit Count: 21 Therapist That Will Oversee The Plan Of Care: Taty Philip Start of Care Date: 07/21/17 Onset Date: 07/21/16 (about one year) Patient Identified by Name and Date of : Yes REHABILITATION AND SPORTS THERAPY PHYSICAL THERAPY PROGRESS REPORT PLAN OF CARE UPDATE: Assessment: Ralph Joshi exhibits improvements in L ankle edema, AROM and strength and subjectiv ereports of improved function. She continues to be limited with walking in the community and stair negotiation. She is progressing slower than expected towards her therapy goals as demonstrated by: documented subjective information on progress and documented objective information regarding overall function and pain levels. She will benefit from continued skilled therapy requiring manual soft tissue techniques and modalities in order to further improve pain and function. Functional gains: Improved tolerance for standing, walking and stair negotiation Increased independence with HEP Increased ROM Increased strength Decreased intensity of pain Goals for Episode of Care: created on 07/21/17 through 09/20/17 Goals updated on 09/15/2017. [place] in home exercise program. (Met) Patient will decrease pain rating by 2 points to meet minimal clinical important difference for numeric pain rating scale. (Met) Patient will increase active ROM of L ankle to DF 8-10 deg, inv 30-35 deg and ever 15 deg. to allow pt to improved performance of ADLs. (Met) Patient will increase strength of L ankle to 4+/5 to allow for return to prior functional status and normalized gait mechanics. (Not Met)- progressing Perform daily and community ambulation, prolonged standing and stair negotiation with decreased report of symptoms/pain in 4-8 weeks. (Partially Met) Demonstrate improvement on functional score: Patient will increase his/her score on the Lower Extremity Functional Scale by at least 9 points to indicate a Minimal Clinical Important Difference. (Met) Planned Interventions, Frequency, and Duration: 2x/week, 4 weeks Total Number of Visits Planned: 8 Patient to be seen for Manual therapy;Patient/Family/Caregiver Education;ModalitiesUltrasound PLAN FOR NEXT VISIT: Plan to continue with focus on manual techniques, including IASTM and modalities, ultrasound, with progression of HEP as needed for strengthening. SUBJECTIVE: Pt reports the relief she gets from therapy lasts several hours. She feels she can continue the exercises independently, but the manual techniques and ultrasound seem to reduce the pain. She notes increased pain with community ambulation (especially on uneven terrain), she is able to stand for about an hour then pain increases, and she can manage one flight of stairs, but any more than that is painful. Pt also notes she has obtained new shoes with a roll bar and feels this has been helpful as well. Pain Score: 4/10 Pain Location: Ankle - Left Post Treatment Pain Score: 2/10 Pain Location: Ankle - Left OBJECTIVE MEASURES WITH LEVEL OF FUNCTION: Ankle Observations Comments: 2 above mall 25.5, B mall 29.5, heel 33, midfoot 24.5, MTP 23 Gait Gait Observation: Normal gait on level surface. LE AROM L Ankle Dorsiflexion: 10 Degrees L Ankle Plantar Flexion: 60 Degrees L Ankle Inversion: 35 L Ankle Eversion: 20 LE Strength L Ankle Dorsiflexion (L4): 4/5 L Ankle Plantar Flexion: 4/5 L Ankle Inversion: 4/5 L Ankle Eversion: 4/5 TREATMENT: Therapeutic Exercise: 3: ankle alphabet A-Z x 1. 4: Left long sitting strap assist gastroc stretch 3x30 seconds. 5: Lateral step up and over foam square 2 x 10 each direction. 6: Standing BAPS ball 3 left PWB A/P, lateral and cw and ccw 2x10. 7: L ankle dorsiflexion with blue band resistance 3 x 10 reps 8: L ankle plantarflexion with blue band resistance 3 x 10 reps 9: L ankle inversion with blue band resistance 3 x 10 reps 10: L ankle eversion with blue band resistance 3 x 10 reps Skilled Intervention: Patient was educated in proper exercise technique and purpose for exercises. Reviewed and educated patient on additions/changes for home exercise program and pt is to continue with current HEP. Skilled judgment was provided in selection of appropriate interventions. Correct performance of therapeutic exercises was facilitated with verbal and visual cuing. Patient education as noted. Manual Therapy: 1: IASTM with scanner and tongue depressor left lateral malleolar/peroneal and gastroc region x 10 minutes with pressure to patient tolerance with pt in prone lying. Skilled Intervention: Manual skills to improve joint mobility, soft tissue restrictions, ROM, and decrease pain. Utilized anatomy knowledge of the therapist, and assessment of patient's response to intervention. Modalities: Ultrasound Body Region Treated - Ultrasound: Left lateral ankle, sub and posterior malleolar regions, peroneal tendon Patient Position: Prone lying Mode: 100% w/cm2: 1.2 MHZ: 1 Minutes: 10 See flowsheet for details regarding treatment. Skilled Intervention: Proper administration and selection of modality based on clinical presentation, deficits, and needs. Patient response monitored throughout treatment. Billing: [facility]: Therapeutic Exercise ([id number]): 1:1 time: 22 minutes (1 unit: 8-22 mins) Manual Therapy ([id number]): 1:1 time: 10 minutes (1 unit: 8-22 mins) Modalities Ultrasound ([id number]) 1:1 time: 10 minutes1 unit: 8-22 mins Total time: 42 minutes Taty Philip, PT PROGRESS Observed: 10/27/2017 Status: COMPLETED Source: [place] 7:59 AM [facility] REPOSITORY HNO ID: [id number] Author: Taty (Pt) Cedrick Service: (none) Author Type: Physical Therapist Type: Progress Notes Filed: 10/27/2017 12:53 PM Note Text: Episode Visit Count: 21 Therapist That Will Oversee The Plan Of Care: Taty Philip Start of Care Date: 07/21/17 Onset Date: 07/21/16 (about one year) Patient Identified by Name and Date of : Yes REHABILITATION AND SPORTS THERAPY PHYSICAL THERAPY PROGRESS REPORT PLAN OF CARE UPDATE: Assessment: Ralph Joshi exhibits improvements in L ankle edema, AROM and strength and subjectiv ereports of improved function. She continues to be limited with walking in the community and stair negotiation. She is progressing slower than expected towards her therapy goals as demonstrated by: documented subjective information on progress and documented objective information regarding overall function and pain levels. She will benefit from continued skilled therapy requiring manual soft tissue techniques and modalities in order to further improve pain and function. Functional gains: Improved tolerance for standing, walking and stair negotiation Increased independence with HEP Increased ROM Increased strength Decreased intensity of pain Goals for Episode of Care: created on 07/21/17 through 09/20/17 Goals updated on 09/15/2017. [place] in home exercise program. (Met) Patient will decrease pain rating by 2 points to meet minimal clinical important difference for numeric pain rating scale. (Met) Patient will increase active ROM of L ankle to DF 8-10 deg, inv 30-35 deg and ever 15 deg. to allow pt to improved performance of ADLs. (Met) Patient will increase strength of L ankle to 4+/5 to allow for return to prior functional status and normalized gait mechanics. (Not Met)- progressing Perform daily and community ambulation, prolonged standing and stair negotiation with decreased report of symptoms/pain in 4-8 weeks. (Partially Met) Demonstrate improvement on functional score: Patient will increase his/her score on the Lower Extremity Functional Scale by at least 9 points to indicate a Minimal Clinical Important Difference. (Met) Planned Interventions, Frequency, and Duration: 2x/week, 4 weeks Total Number of Visits Planned: 8 Patient to be seen for Manual therapy;Patient/Family/Caregiver Education;ModalitiesUltrasound PLAN FOR NEXT VISIT: Plan to continue with focus on manual techniques, including IASTM and modalities, ultrasound, with progression of HEP as needed for strengthening. SUBJECTIVE: Pt reports the relief she gets from therapy lasts several hours. She feels she can continue the exercises independently, but the manual techniques and ultrasound seem to reduce the pain. She notes increased pain with community ambulation (especially on uneven terrain), she is able to stand for about an hour then pain increases, and she can manage one flight of stairs, but any more than that is painful. Pt also notes she has obtained new shoes with a roll bar and feels this has been helpful as well. Pain Score: 4/10 Pain Location: Ankle - Left Post Treatment Pain Score: 2/10 Pain Location: Ankle - Left OBJECTIVE MEASURES WITH LEVEL OF FUNCTION: Ankle Observations Comments: 2 above mall 25.5, B mall 29.5, heel 33, midfoot 24.5, MTP 23 Gait Gait Observation: Normal gait on level surface. LE AROM L Ankle Dorsiflexion: 10 Degrees L Ankle Plantar Flexion: 60 Degrees L Ankle Inversion: 35 L Ankle Eversion: 20 LE Strength L Ankle Dorsiflexion (L4): 4/5 L Ankle Plantar Flexion: 4/5 L Ankle Inversion: 4/5 L Ankle Eversion: 4/5 TREATMENT: Therapeutic Exercise: 3: ankle alphabet A-Z x 1. 4: Left long sitting strap assist gastroc stretch 3x30 seconds. 5: Lateral step up and over foam square 2 x 10 each direction. 6: Standing BAPS ball 3 left PWB A/P, lateral and cw and ccw 2x10. 7: L ankle dorsiflexion with blue band resistance 3 x 10 reps 8: L ankle plantarflexion with blue band resistance 3 x 10 reps 9: L ankle inversion with blue band resistance 3 x 10 reps 10: L ankle eversion with blue band resistance 3 x 10 reps Skilled Intervention: Patient was educated in proper exercise technique and purpose for exercises. Reviewed and educated patient on additions/changes for home exercise program and pt is to continue with current HEP. Skilled judgment was provided in selection of appropriate interventions. Correct performance of therapeutic exercises was facilitated with verbal and visual cuing. Patient education as noted. Manual Therapy: 1: IASTM with scanner and tongue depressor left lateral malleolar/peroneal and gastroc region x 10 minutes with pressure to patient tolerance with pt in prone lying. Skilled Intervention: Manual skills to improve joint mobility, soft tissue restrictions, ROM, and decrease pain. Utilized anatomy knowledge of the therapist, and assessment of patient's response to intervention. Modalities: Ultrasound Body Region Treated - Ultrasound: Left lateral ankle, sub and posterior malleolar regions, peroneal tendon Patient Position: Prone lying Mode: 100% w/cm2: 1.2 MHZ: 1 Minutes: 10 See flowsheet for details regarding treatment. Skilled Intervention: Proper administration and selection of modality based on clinical presentation, deficits, and needs. Patient response monitored throughout treatment. Billing: [facility]: Therapeutic Exercise ([id number]): 1:1 time: 22 minutes (1 unit: 8-22 mins) Manual Therapy ([id number]): 1:1 time: 10 minutes (1 unit: 8-22 mins) Modalities Ultrasound ([id number]) 1:1 time: 10 minutes1 unit: 8-22 mins Total time: 42 minutes Taty Philip PT PROGRESS Observed: 10/26/2017 Status: COMPLETED Source: [place] 2:18 PM [facility] [facility] REPOSITORY HNO ID: [id number] Author: Trenton Whitlock (Pa) Service: (none) Author Type: Physician [employer] Type: Progress Notes Filed: 10/26/2017 2:26 PM Note Text: Subjective HPI Pt presents with a rash x 5 days. She was gardening prior to the rash starting. She does get eczema and has eucrisa for that. She is on chronic prednisone for idiopathic anaphylaxis as well. No new medications or soaps. No new lotions. She has inhaled mometasone as an allergy but tolerates topical steroids. Review of Systems Skin: Positive for itching and rash. All other systems reviewed and are negative. PAST MEDICAL HISTORY Diagnosis Date - Abdominal pain, other specified site - ACNE NEC 01/21/2008 - Actinic Keratosis (Premalignant AK) 06/05/2011 - ACUTE GASTRITIS W/O HEMORRHAGE 04/26/2007 - Allergic rhinitis 04/23/2012 - Anaphylactic reaction ideopathic - Benign tumor of adrenal gland - Biliary dyskinesia 10/29/2009 - Cervical herniated disc 10/20/2016 - Cervical myelopathy (HCC) 10/25/2016 - Cervical radiculitis 10/20/2016 - Cervical spondylosis with radiculopathy 11/17/2015 - JAIN ANGIOMA///NEVUS, NON-NEOPLASTIC 05/28/2007 - CKD (chronic kidney disease) stage 3, GFR 30-59 ml/min (HCC) 04/29/2013 - Diaphragmatic hernia without mention of obstruction or gangrene 05/25/2011 - Diverticulosis of colon (without mention of hemorrhage) - Edema 07/07/2004 - Epigastric pain - GERD (gastroesophageal reflux disease) - HTN (hypertension) 2002 controlled on Diovan - Hyperlipidemia 10/15/2013 - IRON DEFIC ANEMIA NOS 04/26/2007 - Moderate persistent asthma without complication 02/18/2015 - Ovarian cyst Benign ovarian cyst, S/P laparoscopic LSO - Ptosis of eyelid, bilateral 12/23/2016 Added automatically from request for surgery [id number] - Shoulder impingement 11/17/2015 - Sleep apnea intollerant to CPAP because allergic to material on mask - Steroid-induced hyperglycemia 09/06/2014 - TACHYCARDIA NOS 01/09/2006 - Tarsal tunnel syndrome 12/23/2009 - Tear of lateral meniscus of knee 02/21/2014 - Ulcerative colitis, unspecified - UTERINE LEIOMYOMA NOS 12/23/2005 - VIRAL WARTS NOS 05/09/2006 - Vocal cord dysfunction Current Outpatient Prescriptions: doxazosin (CARDURA) 4 mg tablet Take 1 tablet by mouth once daily. Disp: 30 tablet Rfl: 11 amLODIPine (NORVASC) 10 mg tablet Take 1 tablet by mouth once daily. Disp: 30 tablet Rfl: 11 COMPOUNDED PRESCRIPTION Please fit for CPAP mask. Patient with previous allergic/anaphylaxis reaction to mask. DME: [employer]. Disp: 1 Each Rfl: 0 cromolyn (INTAL) 20 mg/2 mL nebulizer solution Use 20 mg via nebulizer three times daily. Disp: Rfl: EPINEPHrine (EPIPEN) 0.3 mg/0.3 mL auto-injector Inject 0.3 mL intramuscularly as needed. Inject full content of the syringe. Disp: 2 Each Rfl: 2 diphenhydrAMINE (BENADRYL) 25 mg tablet Take 1 tablet by mouth every 6 hours as needed for Itching/Rash. Disp: 30 tablet Rfl: 0 pregabalin (LYRICA) 150 mg capsule Take 1 capsule by mouth twice daily for 181 days. Disp: 180 capsule Rfl: 1 pregabalin (LYRICA) 150 mg capsule Take 1 capsule by mouth twice daily for 90 days. Disp: 180 capsule Rfl: 1 atorvastatin (LIPITOR) 20 mg tablet One tab on MWF only Disp: Rfl: spironolactone (ALDACTONE) 50 mg tablet Take 1 tablet by mouth twice daily. Disp: 180 tablet Rfl: 3 lansoprazole (PREVACID) 30 mg capsule TAKE 1 CAPSULE TWICE A DAY Disp: 180 capsule Rfl: 3 bumetanide (BUMEX) 0.5 mg tablet Take 1 tablet by mouth once daily. Disp: 90 tablet Rfl: 3 nitroglycerin sublingual (NITROQUICK) 0.4 mg SL tablet DISSOLVE 1 TABLET UNDER THE TONGUE NEEDED FOR CHEST PAIN, IF NO RELIEF CALL 911 Disp: 1 Bottle of 25 Rfl: 3 albuterol HFA (PROAIR HFA) 90 mcg/actuation inhaler Inhale 2 Puffs as instructed every 6 hours as needed for Wheezing/Shortness of Breath. Disp: 1 Inhaler Rfl: 5 fluticasone-vilanterol (BREO ELLIPTA) 100-25 mcg/dose inhaler Inhale 1 Inhalation as instructed once daily. (Patient taking differently: Inhale 2 Inhalation as instructed once daily. ) Disp: 1 Each Rfl: 5 levalbuterol (XOPENEX) 1.25 mg/3 mL nebulizer solution Use 1 Ampule via nebulizer every 4 hours as needed. Inhale over 5-15 minutes Disp: 300 Ampule Rfl: 3 fluticasone (FLONASE) 50 mcg/actuation nasal spray 1-2 sprays each side qd Disp: 3 Bottle Rfl: 3 budesonide (PULMICORT) 0.5 mg/2 mL nebulizer solution Use 1 Ampule via nebulizer twice daily. Disp: 60 Ampule Rfl: 6 Azelastine 0.15 % (205.5 mcg) spry Use 1 Wilberforce in each nostril twice daily. Disp: 3 Bottle Rfl: 3 COMPOUNDED PRESCRIPTION Nocturnal oximetry on room air. [facility]: [facility] Disp: 1 Each Rfl: 0 cholestyramine-sucrose (QUESTRAN) 4 gram powder Take 1 scoop by mouth once daily. Disp: 1134 g Rfl: 4 cyanocobalamin (VITAMIN B-12) 1,000 mcg tab Take 1 tablet by mouth once daily. Disp: Rfl: atenolol (TENORMIN) 25 mg tablet Take 1 tablet by mouth once daily. Disp: 30 tablet Rfl: 5 ergocalciferol, vitamin D2, (VITAMIN D) 50,000 unit capsule Take 1 capsule by mouth once each week. (Patient taking differently: Take 50,000 Units by mouth once each week. Every Monday ) Disp: 12 capsule Rfl: 4 TURMERIC ROOT EXTRACT ORAL Take 1 tablet by mouth twice daily. Disp: Rfl: crisaborole (EUCRISA) 2 % oint Apply to the hands twice daily Disp: 60 g Rfl: 3 COMPOUNDED PRESCRIPTION Please provide patient with nebulizer machine and supplies.Diagnosis: Severe Asthma. Disp: 1 Each Rfl: 0 cetirizine (ZYRTEC) 10 mg tablet Take 10 mg by mouth once daily. Disp: Rfl: pimecrolimus (ELIDEL) 1 % cream Apply twice daily to the hands Disp: 30 Tube Rfl: 3 ondansetron (ZOFRAN) 4 mg tablet Take 1 tablet by mouth every 8 hours as needed. Disp: 30 tablet Rfl: 3 lactobacillus rhamnosus (CULTURELLE) 10 billion cell capsule Take 1 capsule by mouth twice daily. Disp: Rfl: amoxicillin (POLYMOX, AMOXIL) 250 mg capsule Take 250 mg by mouth once daily. Disp: Rfl: zafirlukast (ACCOLATE) 20 mg tablet Take 1 tablet by mouth twice daily. Disp: 60 tablet Rfl: 11 cycloSPORINE Modified 50 mg capsule Take 50 mg by mouth twice daily. Disp: Rfl: ascorbic acid (VITAMIN C) 500 mg tablet Take 1 tablet by mouth once daily. Disp: 90 tablet Rfl: 0 triamcinolone acetonide (KENALOG) 0.1 % cream Apply 1 application to affected area three times daily. Apply to affected area. Location: arms Disp: 30 g Rfl: 0 Benzonatate 200 mg capsule Take 200 mg by mouth three times daily as needed for Cough. (Patient not taking: Reported on 10/26/2017 ) Disp: 30 capsule Rfl: 1 No current facility-administered medications for this visit. PAST SURGICAL HISTORY Procedure Laterality Date - CHOLECYSTECTOMY HX - COLONOSCOP W/ OR W/O [facility] SPEC 09/06/2005 Colonoscopy - COLONOSCOP W/ OR W/O [facility] SPEC Colonoscopy - COLONOSCOP W/ OR W/O [facility] SPEC 05/28/2012 Colonoscopy repeat 5 years. - EGD 07/29/14 normal - EGD W/O OR W/BRUSH/WASH 09/06/2005 EGD - EGD W/O OR W/BRUSH/WASH 04/26/2007 EGD - EGD W/O OR W/BRUSH/WASH 05/25/2011 EGD - EGD W/O OR W/BRUSH/WASH 05/28/2012 EGD - L'SCOPE REM ADNEX W/PART/TOT OOPH/SALP 06/11/2009 Laparoscopic LSO for benign ovarian cyst - LAMINECTOMY,CERVICAL 10/2016 - LAP CHOLECYSTECT/CHOLANGIOGRAPHY 10/30/09 Normal IOC - ORTHOPEDICS SURGERY HX 12/2013 repaired Rt achilles tendon - PAST SURGICAL HISTORY OF 09/19 left foot surgery on heel and repaired torn tdndon - SIGMOIDOSCOPY FLEX DIAG 05/20/08 - TARSAL TUNNEL RELEASE 07/2010 Left foot FAMILY HISTORY Problem Relation Age of Onset - Colon Cancer Father dx age 60. Alive at 85. - Hypertension Father Alive at 85. - Cataract Father Alive at 85. - Thyroid Father Alive at 85. - Heart Father [place] at 87 - Diabetes Mother colon polyps. age 72. - Hypertension Mother age 72. - benign brainstem tumor [OTHER] Mother Persistent vegetative state. age 72. - defects Sister - Glaucoma Maternal Grandmother - Stroke Maternal Grandfather - Cancer Paternal Grandmother cervical - Colon Cancer Son 38 colon and rectal cancer - Breast Cancer Sister Developed in late 20s. Alive at 52. - Osteoporosis Sister - colon polyps [OTHER] Sister 3 sisters with colon polyps Social History Substance Use Topics - Smoking status: Never Smoker - Smokeless tobacco: Never Used - Alcohol use No BP 130/80 Pulse 76 Temp 36.9 ?C (98.4 ?F) (Tympanic) Resp 16 Wt 96.2 kg (212 lb) LMP 08/07/2013 BMI 36.39 kg/m? Objective Physical Exam Constitutional: She is oriented to person, place, and time and well-developed, well-nourished, and in no distress. HENT: Head: Normocephalic and atraumatic. Cardiovascular: Regular rhythm and normal heart sounds. Pulmonary/Chest: Effort normal and breath sounds normal. Neurological: She is alert and oriented to person, place, and time. Skin: Skin is warm and dry. Pt has a red raised vesicular rash on her forearms bilaterally, consistent with contact dermatitis. She also has a flat dry macular rash on her right AC flexeril area that appears to be Psychiatric: Affect and judgment normal. Nursing note and vitals reviewed. ASSESSMENT/PLAN: 1. Contact dermatitis, unspecified contact dermatitis type, unspecified trigger - ICD9: 692.9, ICD10: L25.9 - Topical steriod tx with kenalog 1% cream, pt states tolerated before. - discussed skin care of rash - follow up if symptoms persist or worsen. LENNY CruzOV Observed: 10/26/2017 Status: COMPLETED Source: [place] 1:00 PM [facility] REPOSITORY Office Visit ([facility]) RALPH JOSHI ([id number]) 1955 F Date Time Provider Department 10/26/17 1:00 PM TRENTON WHITLOCK (RONN) [facility] During your visit today, we recorded the following information about you: Temperature Pulse Respiration Blood pressure 98.4 degrees 76/minute 16/minute 130/80 Weight 96.2 kg Trenton Whitlock PA-C 10/26/2017 2:26 PM Signed Subjective HPI Pt presents with a rash x 5 days. She was gardening prior to the rash starting. She does get eczema and has eucrisa for that. She is on chronic prednisone for idiopathic anaphylaxis as well. No new medications or soaps. No new lotions. She has inhaled mometasone as an allergy but tolerates topical steroids. Review of Systems Skin: Positive for itching and rash. All other systems reviewed and are negative. PAST MEDICAL HISTORY Diagnosis Date - Abdominal pain, other specified site - ACNE NEC 01/21/2008 - Actinic Keratosis (Premalignant AK) 06/05/2011 - ACUTE GASTRITIS W/O HEMORRHAGE 04/26/2007 - Allergic rhinitis 04/23/2012 - Anaphylactic reaction ideopathic - Benign tumor of adrenal gland - Biliary dyskinesia 10/29/2009 - Cervical herniated disc 10/20/2016 - Cervical myelopathy (HCC) 10/25/2016 - Cervical radiculitis 10/20/2016 - Cervical spondylosis with radiculopathy 11/17/2015 - JAIN ANGIOMA///NEVUS, NON-NEOPLASTIC 05/28/2007 - CKD (chronic kidney disease) stage 3, GFR 30-59 ml/min (HCC) 04/29/2013 - Diaphragmatic hernia without mention of obstruction or gangrene 05/25/2011 - Diverticulosis of colon (without mention of hemorrhage) - Edema 07/07/2004 - Epigastric pain - GERD (gastroesophageal reflux disease) - HTN (hypertension) 2002 controlled on Diovan - Hyperlipidemia 10/15/2013 - IRON DEFIC ANEMIA NOS 04/26/2007 - Moderate persistent asthma without complication 02/18/2015 - Ovarian cyst Benign ovarian cyst, S/P laparoscopic LSO - Ptosis of eyelid, bilateral 12/23/2016 Added automatically from request for surgery [id number] - Shoulder impingement 11/17/2015 - Sleep apnea intollerant to CPAP because allergic to material on mask - Steroid-induced hyperglycemia 09/06/2014 - TACHYCARDIA NOS 01/09/2006 - Tarsal tunnel syndrome 12/23/2009 - Tear of lateral meniscus of knee 02/21/2014 - Ulcerative colitis, unspecified - UTERINE LEIOMYOMA NOS 12/23/2005 - VIRAL WARTS NOS 05/09/2006 - Vocal cord dysfunction Current Outpatient Prescriptions: doxazosin (CARDURA) 4 mg tablet Take 1 tablet by mouth once daily. Disp: 30 tablet Rfl: 11 amLODIPine (NORVASC) 10 mg tablet Take 1 tablet by mouth once daily. Disp: 30 tablet Rfl: 11 COMPOUNDED PRESCRIPTION Please fit for CPAP mask. Patient with previous allergic/anaphylaxis reaction to mask. DME: [employer]. Disp: 1 Each Rfl: 0 cromolyn (INTAL) 20 mg/2 mL nebulizer solution Use 20 mg via nebulizer three times daily. Disp: Rfl: EPINEPHrine (EPIPEN) 0.3 mg/0.3 mL auto-injector Inject 0.3 mL intramuscularly as needed. Inject full content of the syringe. Disp: 2 Each Rfl: 2 diphenhydrAMINE (BENADRYL) 25 mg tablet Take 1 tablet by mouth every 6 hours as needed for Itching/Rash. Disp: 30 tablet Rfl: 0 pregabalin (LYRICA) 150 mg capsule Take 1 capsule by mouth twice daily for 181 days. Disp: 180 capsule Rfl: 1 pregabalin (LYRICA) 150 mg capsule Take 1 capsule by mouth twice daily for 90 days. Disp: 180 capsule Rfl: 1 atorvastatin (LIPITOR) 20 mg tablet One tab on MWF only Disp: Rfl: spironolactone (ALDACTONE) 50 mg tablet Take 1 tablet by mouth twice daily. Disp: 180 tablet Rfl: 3 lansoprazole (PREVACID) 30 mg capsule TAKE 1 CAPSULE TWICE A DAY Disp: 180 capsule Rfl: 3 bumetanide (BUMEX) 0.5 mg tablet Take 1 tablet by mouth once daily. Disp: 90 tablet Rfl: 3 nitroglycerin sublingual (NITROQUICK) 0.4 mg SL tablet DISSOLVE 1 TABLET UNDER THE TONGUE NEEDED FOR CHEST PAIN, IF NO RELIEF CALL 911 Disp: 1 Bottle of 25 Rfl: 3 albuterol HFA (PROAIR HFA) 90 mcg/actuation inhaler Inhale 2 Puffs as instructed every 6 hours as needed for Wheezing/Shortness of Breath. Disp: 1 Inhaler Rfl: 5 fluticasone-vilanterol (BREO ELLIPTA) 100-25 mcg/dose inhaler Inhale 1 Inhalation as instructed once daily. (Patient taking differently: Inhale 2 Inhalation as instructed once daily. ) Disp: 1 Each Rfl: 5 levalbuterol (XOPENEX) 1.25 mg/3 mL nebulizer solution Use 1 Ampule via nebulizer every 4 hours as needed. Inhale over 5-15 minutes Disp: 300 Ampule Rfl: 3 fluticasone (FLONASE) 50 mcg/actuation nasal spray 1-2 sprays each side qd Disp: 3 Bottle Rfl: 3 budesonide (PULMICORT) 0.5 mg/2 mL nebulizer solution Use 1 Ampule via nebulizer twice daily. Disp: 60 Ampule Rfl: 6 Azelastine 0.15 % (205.5 mcg) spry Use 1 Wilberforce in each nostril twice daily. Disp: 3 Bottle Rfl: 3 COMPOUNDED PRESCRIPTION Nocturnal oximetry on room air. DME: [facility] Disp: 1 Each Rfl: 0 cholestyramine-sucrose (QUESTRAN) 4 gram powder Take 1 scoop by mouth once daily. Disp: 1134 g Rfl: 4 cyanocobalamin (VITAMIN B-12) 1,000 mcg tab Take 1 tablet by mouth once daily. Disp: Rfl: atenolol (TENORMIN) 25 mg tablet Take 1 tablet by mouth once daily. Disp: 30 tablet Rfl: 5 ergocalciferol, vitamin D2, (VITAMIN D) 50,000 unit capsule Take 1 capsule by mouth once each week. (Patient taking differently: Take 50,000 Units by mouth once each week. Every Monday ) Disp: 12 capsule Rfl: 4 TURMERIC ROOT EXTRACT ORAL Take 1 tablet by mouth twice daily. Disp: Rfl: crisaborole (EUCRISA) 2 % oint Apply to the hands twice daily Disp: 60 g Rfl: 3 COMPOUNDED PRESCRIPTION Please provide patient with nebulizer machine and supplies.Diagnosis: Severe Asthma. Disp: 1 Each Rfl: 0 cetirizine (ZYRTEC) 10 mg tablet Take 10 mg by mouth once daily. Disp: Rfl: pimecrolimus (ELIDEL) 1 % cream Apply twice daily to the hands Disp: 30 Tube Rfl: 3 ondansetron (ZOFRAN) 4 mg tablet Take 1 tablet by mouth every 8 hours as needed. Disp: 30 tablet Rfl: 3 lactobacillus rhamnosus (CULTURELLE) 10 billion cell capsule Take 1 capsule by mouth twice daily. Disp: Rfl: amoxicillin (POLYMOX, AMOXIL) 250 mg capsule Take 250 mg by mouth once daily. Disp: Rfl: zafirlukast (ACCOLATE) 20 mg tablet Take 1 tablet by mouth twice daily. Disp: 60 tablet Rfl: 11 cycloSPORINE Modified 50 mg capsule Take 50 mg by mouth twice daily. Disp: Rfl: ascorbic acid (VITAMIN C) 500 mg tablet Take 1 tablet by mouth once daily. Disp: 90 tablet Rfl: 0 triamcinolone acetonide (KENALOG) 0.1 % cream Apply 1 application to affected area three times daily. Apply to affected area. Location: arms Disp: 30 g Rfl: 0 Benzonatate 200 mg capsule Take 200 mg by mouth three times daily as needed for Cough. (Patient not taking: Reported on 10/26/2017 ) Disp: 30 capsule Rfl: 1 No current facility-administered medications for this visit. PAST SURGICAL HISTORY Procedure Laterality Date - CHOLECYSTECTOMY HX - COLONOSCOP W/ OR W/O [facility] SPEC 09/06/2005 Colonoscopy - COLONOSCOP W/ OR W/O [facility] SPEC Colonoscopy - COLONOSCOP W/ OR W/O [facility] SPEC 05/28/2012 Colonoscopy repeat 5 years. - EGD 07/29/14 normal - EGD W/O OR W/BRUSH/WASH 09/06/2005 EGD - EGD W/O OR W/BRUSH/WASH 04/26/2007 EGD - EGD W/O OR W/BRUSH/WASH 05/25/2011 EGD - EGD W/O OR W/BRUSH/WASH 05/28/2012 EGD - L'SCOPE REM ADNEX W/PART/TOT OOPH/SALP 06/11/2009 Laparoscopic LSO for benign ovarian cyst - LAMINECTOMY,CERVICAL 10/2016 - LAP CHOLECYSTECT/CHOLANGIOGRAPHY 10/30/09 Normal IOC - ORTHOPEDICS SURGERY HX 12/2013 repaired Rt achilles tendon - PAST SURGICAL HISTORY OF 09/19 left foot surgery on heel and repaired torn tdndon - SIGMOIDOSCOPY FLEX DIAG 05/20/08 - TARSAL TUNNEL RELEASE 07/2010 Left foot FAMILY HISTORY Problem Relation Age of Onset - Colon Cancer Father dx age 60. Alive at 85. - Hypertension Father Alive at 85. - Cataract Father Alive at 85. - Thyroid Father Alive at 85. - Heart Father [place] at 87 - Diabetes Mother colon polyps. age 72. - Hypertension Mother age 72. - benign brainstem tumor [OTHER] Mother Persistent vegetative state. age 72. - defects Sister - Glaucoma Maternal Grandmother - Stroke Maternal Grandfather - Cancer Paternal Grandmother cervical - Colon Cancer Son 38 colon and rectal cancer - Breast Cancer Sister Developed in late 20s. Alive at 52. - Osteoporosis Sister - colon polyps [OTHER] Sister 3 sisters with colon polyps Social History Substance Use Topics - Smoking status: Never Smoker - Smokeless tobacco: Never Used - Alcohol use No BP 130/80 Pulse 76 Temp 36.9 ?C (98.4 ?F) (Tympanic) Resp 16 Wt 96.2 kg (212 lb) LMP 08/07/2013 BMI 36.39 kg/m? Objective Physical Exam Constitutional: She is oriented to person, place, and time and well-developed, well-nourished, and in no distress. HENT: Head: Normocephalic and atraumatic. Cardiovascular: Regular rhythm and normal heart sounds. Pulmonary/Chest: Effort normal and breath sounds normal. Neurological: She is alert and oriented to person, place, and time. Skin: Skin is warm and dry. Pt has a red raised vesicular rash on her forearms bilaterally, consistent with contact dermatitis. She also has a flat dry macular rash on her right AC flexeril area that appears to be Psychiatric: Affect and judgment normal. Nursing note and vitals reviewed. ASSESSMENT/PLAN: 1. Contact dermatitis, unspecified contact dermatitis type, unspecified trigger - ICD9: 692.9, ICD10: L25.9 - Topical steriod tx with kenalog 1% cream, pt states tolerated before. - discussed skin care of rash - follow up if symptoms persist or worsen. Trenton Whitlock PA-C Referring Provider: SELF [[id number]] Allergies As of Date: 10/26/2017 Noted Allergy Reaction AVOCADO 09/10/2014 10 - Anaphylaxis BANANA 09/10/2014 10 - Anaphylaxis CARBINOXAMINE 09/17/2012 10 - Anaphylaxis YOSELIN SEED 08/28/2013 10 - Anaphylaxis CIPROFLOXACIN 04/11/2014 10 - Anaphylaxis CODEINE 01/12/2012 10 - Anaphylaxis CONTRAST DYE 05/17/2013 10 - Anaphylaxis Comments: To MRI and CT FISH 09/07/2014 10 - Anaphylaxis HYCODAN (HYDROCODONE-HOMATROPINE) 09/08/2011 10 - Anaphylaxis Comments: Face and throat swelling LATEX 01/21/2014 10 - Anaphylaxis IMTIAZ-SYNEPHRINE (PHENYLEPHRINE HCL)09/04/2014 10 - Anaphylaxis Comments: 10% eye drop NICKEL 01/07/2014 2 - Rash 4 - Hives 10 - Anaphylaxis NSAIDS (NON-STEROIDAL ANTI-INFLAM*08/16/2010 14 - Other: See Comments Comments: Kidney function drops; reversible kidney damage. OXYCODONE 08/28/2013 10 - Anaphylaxis PERIACTIN (CYPROHEPTADINE) 09/17/2012 10 - Anaphylaxis PNEUMOCOCCAL VACCINE 10/31/2014 10 - Anaphylaxis SHELLFISH 09/07/2014 10 - Anaphylaxis ZANTAC (RANITIDINE) 09/17/2012 10 - Anaphylaxis ATIVAN (LORAZEPAM) 08/28/2013 14 - Other: See Comments Comments: hallucination BEEF CONTAINING PRODUCTS 09/10/2014 2 - Rash CORN 05/03/2011 14 - Other: See Comments Comments: Feels like an asthma attack. EGGS (EGG) 03/08/2011 2 - Rash 11 - Vomiting EKG LEADS (ADHESIVE) 10/22/2012 2 - Rash Comments: Localized,only under the leads environmental [Other] 06/26/2007 14 - Other: See Comments Comments: Nasal congestion, brings on an asthma attack. INFLUENZA VIRUS VACCINES 10/22/2012 12 - Shortness of Breath LISINOPRIL 04/20/2004 3 - Cough MILK 03/08/2011 2 - Rash 11 - Vomiting MOMETASONE 04/05/2017 10 - Anaphylaxis Comments: Per Dr. Salas she tolerates formoterol (on Breo at home) but is allergic to mometasone. Okayed by him to update. surgical tape [Other] 11/10/2009 2 - Rash 7 - Swelling Comments: Oral rash, swelling of eyes, asthma attacks; per pateint report. XOLAIR (OMALIZUMAB) 04/19/2012 12 - Shortness of Breath Date Reviewed: 10/26/2017 Reviewed by: Taty Lawler Ma - Fully Assessed Reason for Visit: Rash [1087] Cmt: x 5 days, itching and spreading Primary Visit Diagnosis:Contact dermatitis, unspecified contact dermatitis type, unspecified trigger [L25.9] Order(s):triamcinolone acetonide (KENALOG) 0.1 % creamApply 1 application to affected area three times daily. Apply to affected area. Location: armsDisp: 30 gRfl: 0 Prescriptions as of 10/26/2017 Sig: DOXAZOSIN 4 MG TABLET Take 1 tablet by mouth once d* AMLODIPINE 10 MG TABLET Take 1 tablet by mouth once d* COMPOUNDED PRESCRIPTION Please fit for CPAP mask. Pat* CROMOLYN 20 MG/2 ML SOLUTION * Use 20 mg via nebulizer three* EPINEPHRINE 0.3 MG/0.3 ML INJ* Inject 0.3 mL intramuscularly* DIPHENHYDRAMINE 25 MG TABLET Take 1 tablet by mouth every * PREGABALIN 150 MG CAPSULE Take 1 capsule by mouth twice* PREGABALIN 150 MG CAPSULE Take 1 capsule by mouth twice* ATORVASTATIN 20 MG TABLET One tab on MWF only SPIRONOLACTONE 50 MG TABLET Take 1 tablet by mouth twice * LANSOPRAZOLE 30 MG CAPSULE,DE* TAKE 1 CAPSULE TWICE A DAY BUMETANIDE 0.5 MG TABLET Take 1 tablet by mouth once d* NITROGLYCERIN 0.4 MG SUBLINGU* DISSOLVE 1 TABLET UNDER THE T* ALBUTEROL SULFATE HFA 90 MCG/* Inhale 2 Puffs as instructed * FLUTICASONE 100 MCG-VILANTERO* Inhale 1 Inhalation as instru* Patient taking differently: Inhale 2 Inhalation as instru* LEVALBUTEROL 1.25 MG/3 ML BRENDA* Use 1 Ampule via nebulizer ev* FLUTICASONE 50 MCG/ACTUATION * 1-2 sprays each side qd BUDESONIDE 0.5 MG/2 ML SUSPEN* Use 1 Ampule via nebulizer tw* AZELASTINE 0.15 % (205.5 MCG)* Use 1 Wilberforce in each nostril t* COMPOUNDED PRESCRIPTION Nocturnal oximetry on room ai* CHOLESTYRAMINE (WITH SUGAR) 4* Take 1 scoop by mouth once da* CYANOCOBALAMIN (VIT B-12) 1,0* Take 1 tablet by mouth once d* ATENOLOL 25 MG TABLET Take 1 tablet by mouth once d* ERGOCALCIFEROL (VITAMIN D2) 5* Take 1 capsule by mouth once * Patient taking differently: Take 50,000 Units by mouth on* TURMERIC ROOT EXTRACT ORAL Take 1 tablet by mouth twice * CRISABOROLE 2 % TOPICAL OINTM* Apply to the hands twice daily COMPOUNDED PRESCRIPTION Please provide patient with n* CETIRIZINE 10 MG TABLET Take 10 mg by mouth once mary ellen* PIMECROLIMUS 1 % TOPICAL CREAM Apply twice daily to the hands ONDANSETRON HCL 4 MG TABLET Take 1 tablet by mouth every * LACTOBACILLUS RHAMNOSUS GG 10* Take 1 capsule by mouth twice* AMOXICILLIN 250 MG CAPSULE Take 250 mg by mouth once liam* ZAFIRLUKAST 20 MG TABLET Take 1 tablet by mouth twice * CYCLOSPORINE MODIFIED 50 MG C* Take 50 mg by mouth twice liam* ASCORBIC ACID (VITAMIN C) 500* Take 1 tablet by mouth once d* TRIAMCINOLONE ACETONIDE 0.1 %* Apply 1 application to affect* BENZONATATE 200 MG CAPSULE Take 200 mg by mouth three ti* Patient not taking: Reported on 10/26/2017 Problem List As Of Date 10/26/2017 Noted Resolved JOINT PAIN-ANKLE [M25.579] INVALID FOR*03/20/2014 Edema [R60.9] INVALID FOR*03/28/2016 Priority: I Adrenal nodule (HCC) [E27.9] INVALID FOR* More... Diarrhea [R19.7] INVALID FOR*10/15/2013 Excessive or frequent menstruation [N92.0] INVALID FOR*07/14/2011 Shortness of breath [R06.02] INVALID FOR*10/15/2013 Palpitations [R00.2] INVALID FOR*03/20/2014 Tachycardia, unspecified [R00.0] INVALID FOR*10/15/2013 More... Open wound site NOS [T14.8XXA] INVALID FOR*07/16/2011 Abdominal pain, right upper quadrant [R10.11] INVALID FOR*07/14/2011 More... Acute gastritis without mention of hemorrhage [*INVALID FOR*10/15/2013 Hematuria [599.7] INVALID FOR*07/14/2011 URGE INCONTINENCE [N39.41] INVALID FOR* FEMALE STRESS INCONTINENCE [N39.3] INVALID FOR* Scar, hypertrophic [L91.0] INVALID FOR*10/15/2013 Ovarian cyst [N83.209] INVALID FOR*07/06/2010 Cyst INVALID FOR*10/15/2013 Other specified pre-operative examination [Z01.*INVALID FOR*07/16/2011 Hirsutism [L68.0] INVALID FOR* Dysphagia [R13.10] INVALID FOR*03/20/2014 GERD (gastroesophageal reflux disease) [K21.9] INVALID FOR* Priority: D More... 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 Obesity (BMI 30.0-34.9) [E66.9] INVALID FOR* More... More... More... More... Idiopathic anaphylaxis [T78.2XXA] INVALID FOR* Priority: A More... Urticaria, idiopathic [L50.1] INVALID FOR*03/28/2016 More... Hyperlipidemia LDL goal <100 [E78.5] INVALID FOR* Impaired fasting glucose [R73.01] INVALID FOR* Recurrent chest pain [R07.9, G89.29] INVALID FOR*12/09/2014 Multinodular goiter [E04.2] INVALID FOR* More... CKD (chronic kidney disease) stage 3, GFR 30-59*INVALID FOR* Pain in joint, ankle and foot [M25.579] INVALID FOR*12/09/2014 More... More... Steroid-induced hyperglycemia [R73.9, T38.0X5A] INVALID FOR*03/28/2016 Priority: C Moderate persistent asthma without complication*INVALID FOR* Ulcerative colitis without complications (HCC) *INVALID FOR* Anaphylaxis [T78.2XXA] INVALID FOR*03/26/2015 More... Neck pain, bilateral [M54.2] INVALID FOR*03/28/2016 Essential hypertension with goal blood pressure*INVALID FOR*03/28/2016 Chronic nausea [R11.0] INVALID FOR* Lumbar radiculitis [M54.16] INVALID FOR*03/28/2016 Lumbar stenosis [M48.061] INVALID FOR*03/28/2016 Acquired spondylolisthesis [M43.10] INVALID FOR*03/28/2016 Cervical radiculitis [M54.12] INVALID FOR*03/28/2016 Cervical spondylosis with radiculopathy [M47.22]INVALID FOR*03/29/2017 Shoulder impingement [M75.40] INVALID FOR*03/28/2016 Anaphylaxis [T78.2XXA] INVALID FOR*03/28/2016 Tendonitis, tibialis [M76.829] INVALID FOR*05/09/2016 Lumbar stenosis [M48.061] INVALID FOR* Cervical radiculitis [M54.12] INVALID FOR*03/29/2017 Cervical herniated disc [M50.20] INVALID FOR*03/29/2017 Cervical stenosis of spine [M48.02] INVALID FOR* Cervical spondylosis with myelopathy [M47.12] INVALID FOR*03/29/2017 Cervical myelopathy (HCC) [G95.9] INVALID FOR*03/29/2017 Claustrophobia [F40.240] INVALID FOR* Ptosis of eyelid, bilateral [H02.403] INVALID FOR*03/29/2017 More... Lumbar spondylosis [M47.816] INVALID FOR* More... Preop testing [Z01.818] INVALID FOR* More... Anaphylaxis [T78.2XXA] INVALID FOR* Essential hypertension [I10] INVALID FOR* Peroneal tendinitis, left [M76.72] INVALID FOR* Prescriptions ordered this encounter Disp Refills Start End TRIAMCINOLONE ACETONIDE 0.1 % TOPICA* 30 g 0 10/26/2017 Route: TOPICAL Sig: Apply 1 application to affected area three times daily. Apply to affected area. Location: arms Encounter Status:Closed by TRENTON WHITLOCK PA-C on 10/26/17 PROGRESS Observed: 10/25/2017 Status: COMPLETED Source: [place] 12:05 PM [facility] REPOSITORY HNO ID: [id number] Author: Jane Meza Service: (none) Author Type: Physician Type: Progress Notes Filed: 10/25/2017 12:17 PM Note Text: Follow up Podiatric Office Visit: This 62 year old who presents with: lateral ankle pain L. Still getting swelling and pain. Pt helped but still short lived. Has also been trying iontophoresis with physical therapy most recently which is also helpful but she has not been able to do recently and the pain and swelling continues to return. ASO brace is hard to fit into her shoe. Pain is constant 4 out of 10. Ultrasound was positive for peroneal tenosynovium right is and peroneal retinacular thickening. She is wearing new balance tennis shoes today with inserts. Hx of kouts and achilles repair in the past by Dr. Sewell. PCP: Anisa Caldwell MD PAIN EVALUATION 10/25/2017 Pain Score: 4 Pain Location: Ankle-Left Description: Burning Duration Amount of Time: - Ongoing Frequency: Continuous Intervention: Medication;Reposition;Relaxation;Cold;Exercise PAST MEDICAL HISTORY Diagnosis Date - Abdominal pain, other specified site - ACNE NEC 01/21/2008 - Actinic Keratosis (Premalignant AK) 06/05/2011 - ACUTE GASTRITIS W/O HEMORRHAGE 04/26/2007 - Allergic rhinitis 04/23/2012 - Anaphylactic reaction ideopathic - Benign tumor of adrenal gland - Biliary dyskinesia 10/29/2009 - Cervical herniated disc 10/20/2016 - Cervical myelopathy (HCC) 10/25/2016 - Cervical radiculitis 10/20/2016 - Cervical spondylosis with radiculopathy 11/17/2015 - JAIN ANGIOMA///NEVUS, NON-NEOPLASTIC 05/28/2007 - CKD (chronic kidney disease) stage 3, GFR 30-59 ml/min ([facility]) 04/29/2013 - Diaphragmatic hernia without mention of obstruction or gangrene 05/25/2011 - Diverticulosis of colon (without mention of hemorrhage) - Edema 07/07/2004 - Epigastric pain - GERD (gastroesophageal reflux disease) - HTN (hypertension) 2002 controlled on Diovan - Hyperlipidemia 10/15/2013 - IRON DEFIC ANEMIA NOS 04/26/2007 - Moderate persistent asthma without complication 02/18/2015 - Ovarian cyst Benign ovarian cyst, S/P laparoscopic LSO - Ptosis of eyelid, bilateral 12/23/2016 Added automatically from request for surgery [id number] - Shoulder impingement 11/17/2015 - Sleep apnea intollerant to CPAP because allergic to material on mask - Steroid-induced hyperglycemia 09/06/2014 - TACHYCARDIA NOS 01/09/2006 - Tarsal tunnel syndrome 12/23/2009 - Tear of lateral meniscus of knee 02/21/2014 - Ulcerative colitis, unspecified - UTERINE LEIOMYOMA NOS 12/23/2005 - VIRAL WARTS NOS 05/09/2006 - Vocal cord dysfunction Current Outpatient Prescriptions: doxazosin (CARDURA) 4 mg tablet Take 1 tablet by mouth once daily. amLODIPine (NORVASC) 10 mg tablet Take 1 tablet by mouth once daily. COMPOUNDED PRESCRIPTION Please fit for CPAP mask. Patient with previous allergic/anaphylaxis reaction to mask. DME: [facility]. cromolyn (INTAL) 20 mg/2 mL nebulizer solution Use 20 mg via nebulizer three times daily. EPINEPHrine (EPIPEN) 0.3 mg/0.3 mL auto-injector Inject 0.3 mL intramuscularly as needed. Inject full content of the syringe. diphenhydrAMINE (BENADRYL) 25 mg tablet Take 1 tablet by mouth every 6 hours as needed for Itching/Rash. pregabalin (LYRICA) 150 mg capsule Take 1 capsule by mouth twice daily for 181 days. pregabalin (LYRICA) 150 mg capsule Take 1 capsule by mouth twice daily for 90 days. atorvastatin (LIPITOR) 20 mg tablet One tab on MWF only spironolactone (ALDACTONE) 50 mg tablet Take 1 tablet by mouth twice daily. lansoprazole (PREVACID) 30 mg capsule TAKE 1 CAPSULE TWICE A DAY bumetanide (BUMEX) 0.5 mg tablet Take 1 tablet by mouth once daily. nitroglycerin sublingual (NITROQUICK) 0.4 mg SL tablet DISSOLVE 1 TABLET UNDER THE TONGUE NEEDED FOR CHEST PAIN, IF NO RELIEF CALL 911 albuterol HFA (PROAIR HFA) 90 mcg/actuation inhaler Inhale 2 Puffs as instructed every 6 hours as needed for Wheezing/Shortness of Breath. fluticasone-vilanterol (BREO ELLIPTA) 100-25 mcg/dose inhaler Inhale 1 Inhalation as instructed once daily. (Patient taking differently: Inhale 2 Inhalation as instructed once daily. ) levalbuterol (XOPENEX) 1.25 mg/3 mL nebulizer solution Use 1 Ampule via nebulizer every 4 hours as needed. Inhale over 5-15 minutes fluticasone (FLONASE) 50 mcg/actuation nasal spray 1-2 sprays each side qd budesonide (PULMICORT) 0.5 mg/2 mL nebulizer solution Use 1 Ampule via nebulizer twice daily. Azelastine 0.15 % (205.5 mcg) spry Use 1 Wilberforce in each nostril twice daily. COMPOUNDED PRESCRIPTION Nocturnal oximetry on room air. DME: [facility] cholestyramine-sucrose (QUESTRAN) 4 gram powder Take 1 scoop by mouth once daily. cyanocobalamin (VITAMIN B-12) 1,000 mcg tab Take 1 tablet by mouth once daily. atenolol (TENORMIN) 25 mg tablet Take 1 tablet by mouth once daily. ergocalciferol, vitamin D2, (VITAMIN D) 50,000 unit capsule Take 1 capsule by mouth once each week. (Patient taking differently: Take 50,000 Units by mouth once each week. Every Monday ) TURMERIC ROOT EXTRACT ORAL Take 1 tablet by mouth twice daily. crisaborole (EUCRISA) 2 % oint Apply to the hands twice daily COMPOUNDED PRESCRIPTION Please provide patient with nebulizer machine and supplies.Diagnosis: Severe Asthma. cetirizine (ZYRTEC) 10 mg tablet Take 10 mg by mouth once daily. pimecrolimus (ELIDEL) 1 % cream Apply twice daily to the hands ondansetron (ZOFRAN) 4 mg tablet Take 1 tablet by mouth every 8 hours as needed. Benzonatate 200 mg capsule Take 200 mg by mouth three times daily as needed for Cough. lactobacillus rhamnosus (CULTURELLE) 10 billion cell capsule Take 1 capsule by mouth twice daily. amoxicillin (POLYMOX, AMOXIL) 250 mg capsule Take 250 mg by mouth once daily. zafirlukast (ACCOLATE) 20 mg tablet Take 1 tablet by mouth twice daily. cycloSPORINE Modified 50 mg capsule Take 50 mg by mouth twice daily. ascorbic acid (VITAMIN C) 500 mg tablet Take 1 tablet by mouth once daily. No current facility-administered medications for this visit. ALLERGIES Allergen Reactions - Avocado Anaphylaxis - Banana Anaphylaxis - Carbinoxamine Anaphylaxis - Yoselin Seed Anaphylaxis - Ciprofloxacin Anaphylaxis - Codeine Anaphylaxis - Contrast Dye Anaphylaxis To MRI and CT - Fish Anaphylaxis - Hycodan [Hydrocodon* Anaphylaxis Face and throat swelling - Latex Anaphylaxis - Imtiaz-Synephrine [Phe* Anaphylaxis 10% eye drop - Nickel Rash, Hives, Anaphylaxis - Nsaids (Non-Steroid* Other: See Comments Kidney function drops; reversible kidney damage. - Oxycodone Anaphylaxis - Periactin [Cyprohep* Anaphylaxis - Pneumococcal Vaccine Anaphylaxis - Shellfish Anaphylaxis - Zantac [Ranitidine] Anaphylaxis - Ativan [Lorazepam] Other: See Comments hallucination - Beef Containing Pro* Rash - Berino Other: See Comments Feels like an asthma attack. - Eggs [Egg] Rash, Vomiting - Ekg Leads [Adhesive] Rash Localized,only under the leads - Environmental [Othe* Other: See Comments Nasal congestion, brings on an asthma attack. - Influenza Virus Vac* Shortness of Breath - Lisinopril Cough - Milk Rash, Vomiting - Mometasone Anaphylaxis Per Dr. Salas she tolerates formoterol (on Breo at home) but is allergic to mometasone. Okayed by him to update. - Surgical Tape [Othe* Rash, Swelling Oral rash, swelling of eyes, asthma attacks; per pateint report. - Xolair [Omalizumab] Shortness of Breath Physical Exam: OBJECTIVE: Vascular: Dorsalis pedis and posterior tibial pulses palpable b/l Capillary Fill time < 3 seconds to digits 1-5 b/l Skin temperature warm to warm proximal to distal b/l Hair growth present to digits Neurological: Intact light touch/epicritic sensation Vibratory sensation intact to MTPJ b/l NO significant neurological deficits Dermatological: Nails 1-5 b/l appear normal. Webspaces clean and dry 1-4 b/l. Skin appears well hydrated and supple. good color, texture, turgor. No open lesions present. No callosities present. Musculoskeletal/Orthopaedic: Patient has pain and swelling to palpation of peroneal tendon L foot. Pain noted with eversion and inversion against resistance. Foot type is supinated structurally within normal limits Radiographs:06/02/2017: hx of kouts. 2 large headless screws in place with no sign of lucency or displacement. ASSESSMENT: Peroneal tenosynovitis and peroneal retinacular thickening left PLAN: 1. History and physical examination performed 2. Continue ASO in tennis shoe as needed 3. Completion of physical therapy with iontophoresis recommended 4. Surgical consult recommended at this time MAXIMUS Lindsey Observed: 10/25/2017 Status: COMPLETED Source: [place] 11:40 AM [facility] REPOSITORY Office Visit (PODIMM) RALPH JOSHI ([id number]) 1955 F Date Time Provider Department 10/25/17 11:40 AM JANE MEZA PODIMM During your visit today, we recorded the following information about you: Taty Corona Ma 10/25/2017 11:37 AM Signed Patient presents with: Follow Up: left ankle pain Jane Meza DPM 10/25/2017 12:17 PM Signed Follow up Podiatric Office Visit: This 62 year old who presents with: lateral ankle pain L. Still getting swelling and pain. Pt helped but still short lived. Has also been trying iontophoresis with physical therapy most recently which is also helpful but she has not been able to do recently and the pain and swelling continues to return. ASO brace is hard to fit into her shoe. Pain is constant 4 out of 10. Ultrasound was positive for peroneal tenosynovium right is and peroneal retinacular thickening. She is wearing new balance tennis shoes today with inserts. Hx of kouts and achilles repair in the past by Dr. Sewell. PCP: Anisa Caldwell MD PAIN EVALUATION 10/25/2017 Pain Score: 4 Pain Location: Ankle-Left Description: Burning Duration Amount of Time: - Ongoing Frequency: Continuous Intervention: Medication;Reposition;Relaxation;Cold;Exercise PAST MEDICAL HISTORY Diagnosis Date - Abdominal pain, other specified site - ACNE NEC 01/21/2008 - Actinic Keratosis (Premalignant AK) 06/05/2011 - ACUTE GASTRITIS W/O HEMORRHAGE 04/26/2007 - Allergic rhinitis 04/23/2012 - Anaphylactic reaction ideopathic - Benign tumor of adrenal gland - Biliary dyskinesia 10/29/2009 - Cervical herniated disc 10/20/2016 - Cervical myelopathy (HCC) 10/25/2016 - Cervical radiculitis 10/20/2016 - Cervical spondylosis with radiculopathy 11/17/2015 - JAIN ANGIOMA///NEVUS, NON-NEOPLASTIC 05/28/2007 - CKD (chronic kidney disease) stage 3, GFR 30-59 ml/min (HCC) 04/29/2013 - Diaphragmatic hernia without mention of obstruction or gangrene 05/25/2011 - Diverticulosis of colon (without mention of hemorrhage) - Edema 07/07/2004 - Epigastric pain - GERD (gastroesophageal reflux disease) - HTN (hypertension) 2002 controlled on Diovan - Hyperlipidemia 10/15/2013 - IRON DEFIC ANEMIA NOS 04/26/2007 - Moderate persistent asthma without complication 02/18/2015 - Ovarian cyst Benign ovarian cyst, S/P laparoscopic LSO - Ptosis of eyelid, bilateral 12/23/2016 Added automatically from request for surgery [id number] - Shoulder impingement 11/17/2015 - Sleep apnea intollerant to CPAP because allergic to material on mask - Steroid-induced hyperglycemia 09/06/2014 - TACHYCARDIA NOS 01/09/2006 - Tarsal tunnel syndrome 12/23/2009 - Tear of lateral meniscus of knee 02/21/2014 - Ulcerative colitis, unspecified - UTERINE LEIOMYOMA NOS 12/23/2005 - VIRAL WARTS NOS 05/09/2006 - Vocal cord dysfunction Current Outpatient Prescriptions: doxazosin (CARDURA) 4 mg tablet Take 1 tablet by mouth once daily. amLODIPine (NORVASC) 10 mg tablet Take 1 tablet by mouth once daily. COMPOUNDED PRESCRIPTION Please fit for CPAP mask. Patient with previous allergic/anaphylaxis reaction to mask. DME: [facility] [employer]. cromolyn (INTAL) 20 mg/2 mL nebulizer solution Use 20 mg via nebulizer three times daily. EPINEPHrine (EPIPEN) 0.3 mg/0.3 mL auto-injector Inject 0.3 mL intramuscularly as needed. Inject full content of the syringe. diphenhydrAMINE (BENADRYL) 25 mg tablet Take 1 tablet by mouth every 6 hours as needed for Itching/Rash. pregabalin (LYRICA) 150 mg capsule Take 1 capsule by mouth twice daily for 181 days. pregabalin (LYRICA) 150 mg capsule Take 1 capsule by mouth twice daily for 90 days. atorvastatin (LIPITOR) 20 mg tablet One tab on MWF only spironolactone (ALDACTONE) 50 mg tablet Take 1 tablet by mouth twice daily. lansoprazole (PREVACID) 30 mg capsule TAKE 1 CAPSULE TWICE A DAY bumetanide (BUMEX) 0.5 mg tablet Take 1 tablet by mouth once daily. nitroglycerin sublingual (NITROQUICK) 0.4 mg SL tablet DISSOLVE 1 TABLET UNDER THE TONGUE NEEDED FOR CHEST PAIN, IF NO RELIEF CALL 911 albuterol HFA (PROAIR HFA) 90 mcg/actuation inhaler Inhale 2 Puffs as instructed every 6 hours as needed for Wheezing/Shortness of Breath. fluticasone-vilanterol (BREO ELLIPTA) 100-25 mcg/dose inhaler Inhale 1 Inhalation as instructed once daily. (Patient taking differently: Inhale 2 Inhalation as instructed once daily. ) levalbuterol (XOPENEX) 1.25 mg/3 mL nebulizer solution Use 1 Ampule via nebulizer every 4 hours as needed. Inhale over 5-15 minutes fluticasone (FLONASE) 50 mcg/actuation nasal spray 1-2 sprays each side qd budesonide (PULMICORT) 0.5 mg/2 mL nebulizer solution Use 1 Ampule via nebulizer twice daily. Azelastine 0.15 % (205.5 mcg) spry Use 1 Wilberforce in each nostril twice daily. COMPOUNDED PRESCRIPTION Nocturnal oximetry on room air. DME: [facility] cholestyramine-sucrose (QUESTRAN) 4 gram powder Take 1 scoop by mouth once daily. cyanocobalamin (VITAMIN B-12) 1,000 mcg tab Take 1 tablet by mouth once daily. atenolol (TENORMIN) 25 mg tablet Take 1 tablet by mouth once daily. ergocalciferol, vitamin D2, (VITAMIN D) 50,000 unit capsule Take 1 capsule by mouth once each week. (Patient taking differently: Take 50,000 Units by mouth once each week. Every Monday ) TURMERIC ROOT EXTRACT ORAL Take 1 tablet by mouth twice daily. crisaborole (EUCRISA) 2 % oint Apply to the hands twice daily COMPOUNDED PRESCRIPTION Please provide patient with nebulizer machine and supplies.Diagnosis: Severe Asthma. cetirizine (ZYRTEC) 10 mg tablet Take 10 mg by mouth once daily. pimecrolimus (ELIDEL) 1 % cream Apply twice daily to the hands ondansetron (ZOFRAN) 4 mg tablet Take 1 tablet by mouth every 8 hours as needed. Benzonatate 200 mg capsule Take 200 mg by mouth three times daily as needed for Cough. lactobacillus rhamnosus (CULTURELLE) 10 billion cell capsule Take 1 capsule by mouth twice daily. amoxicillin (POLYMOX, AMOXIL) 250 mg capsule Take 250 mg by mouth once daily. zafirlukast (ACCOLATE) 20 mg tablet Take 1 tablet by mouth twice daily. cycloSPORINE Modified 50 mg capsule Take 50 mg by mouth twice daily. ascorbic acid (VITAMIN C) 500 mg tablet Take 1 tablet by mouth once daily. No current facility-administered medications for this visit. ALLERGIES Allergen Reactions - Avocado Anaphylaxis - Banana Anaphylaxis - Carbinoxamine Anaphylaxis - Yoselin Seed Anaphylaxis - Ciprofloxacin Anaphylaxis - Codeine Anaphylaxis - Contrast Dye Anaphylaxis To MRI and CT - Fish Anaphylaxis - Hycodan [Hydrocodon* Anaphylaxis Face and throat swelling - Latex Anaphylaxis - Imtiaz-Synephrine [Phe* Anaphylaxis 10% eye drop - Nickel Rash, Hives, Anaphylaxis - Nsaids (Non-Steroid* Other: See Comments Kidney function drops; reversible kidney damage. - Oxycodone Anaphylaxis - Periactin [Cyprohep* Anaphylaxis - Pneumococcal Vaccine Anaphylaxis - Shellfish Anaphylaxis - Zantac [Ranitidine] Anaphylaxis - Ativan [Lorazepam] Other: See Comments hallucination - Beef Containing Pro* Rash - Berino Other: See Comments Feels like an asthma attack. - Eggs [Egg] Rash, Vomiting - Ekg Leads [Adhesive] Rash Localized,only under the leads - Environmental [Othe* Other: See Comments Nasal congestion, brings on an asthma attack. - Influenza Virus Vac* Shortness of Breath - Lisinopril Cough - Milk Rash, Vomiting - Mometasone Anaphylaxis Per Dr. Salas she tolerates formoterol (on Breo at home) but is allergic to mometasone. Okayed by him to update. - Surgical Tape [Othe* Rash, Swelling Oral rash, swelling of eyes, asthma attacks; per pateint report. - Xolair [Omalizumab] Shortness of Breath Physical Exam: OBJECTIVE: Vascular: Dorsalis pedis and posterior tibial pulses palpable b/l Capillary Fill time < 3 seconds to digits 1-5 b/l Skin temperature warm to warm proximal to distal b/l Hair growth present to digits Neurological: Intact light touch/epicritic sensation Vibratory sensation intact to MTPJ b/l NO significant neurological deficits Dermatological: Nails 1-5 b/l appear normal. Webspaces clean and dry 1-4 b/l. Skin appears well hydrated and supple. good color, texture, turgor. No open lesions present. No callosities present. Musculoskeletal/Orthopaedic: Patient has pain and swelling to palpation of peroneal tendon L foot. Pain noted with eversion and inversion against resistance. Foot type is supinated structurally within normal limits Radiographs:06/02/2017: hx of kouts. 2 large headless screws in place with no sign of lucency or displacement. ASSESSMENT: Peroneal tenosynovitis and peroneal retinacular thickening left PLAN: 1. History and physical examination performed 2. Continue ASO in tennis shoe as needed 3. Completion of physical therapy with iontophoresis recommended 4. Surgical consult recommended at this time MAXIMUS Lindsey DPM 10/25/2017 12:[address] Ivette Murphy ([facility]) Dr. Chad Vance ([facility]) Referring Provider: ANISA CALDWELL [[id number]] Allergies As of Date: 10/25/2017 Noted Allergy Reaction AVOCADO 09/10/2014 10 - Anaphylaxis BANANA 09/10/2014 10 - Anaphylaxis CARBINOXAMINE 09/17/2012 10 - Anaphylaxis YOSELIN SEED 08/28/2013 10 - Anaphylaxis CIPROFLOXACIN 04/11/2014 10 - Anaphylaxis CODEINE 01/12/2012 10 - Anaphylaxis CONTRAST DYE 05/17/2013 10 - Anaphylaxis Comments: To MRI and CT FISH 09/07/2014 10 - Anaphylaxis HYCODAN (HYDROCODONE-HOMATROPINE) 09/08/2011 10 - Anaphylaxis Comments: Face and throat swelling LATEX 01/21/2014 10 - Anaphylaxis IMTIAZ-SYNEPHRINE (PHENYLEPHRINE HCL)09/04/2014 10 - Anaphylaxis Comments: 10% eye drop NICKEL 01/07/2014 2 - Rash 4 - Hives 10 - Anaphylaxis NSAIDS (NON-STEROIDAL ANTI-INFLAM*08/16/2010 14 - Other: See Comments Comments: Kidney function drops; reversible kidney damage. OXYCODONE 08/28/2013 10 - Anaphylaxis PERIACTIN (CYPROHEPTADINE) 09/17/2012 10 - Anaphylaxis PNEUMOCOCCAL VACCINE 10/31/2014 10 - Anaphylaxis SHELLFISH 09/07/2014 10 - Anaphylaxis ZANTAC (RANITIDINE) 09/17/2012 10 - Anaphylaxis ATIVAN (LORAZEPAM) 08/28/2013 14 - Other: See Comments Comments: hallucination BEEF CONTAINING PRODUCTS 09/10/2014 2 - Rash CORN 05/03/2011 14 - Other: See Comments Comments: Feels like an asthma attack. EGGS (EGG) 03/08/2011 2 - Rash 11 - Vomiting EKG LEADS (ADHESIVE) 10/22/2012 2 - Rash Comments: Localized,only under the leads environmental [Other] 06/26/2007 14 - Other: See Comments Comments: Nasal congestion, brings on an asthma attack. INFLUENZA VIRUS VACCINES 10/22/2012 12 - Shortness of Breath LISINOPRIL 04/20/2004 3 - Cough MILK 03/08/2011 2 - Rash 11 - Vomiting MOMETASONE 04/05/2017 10 - Anaphylaxis Comments: Per Dr. Salas she tolerates formoterol (on Breo at home) but is allergic to mometasone. Okayed by him to update. surgical tape [Other] 11/10/2009 2 - Rash 7 - Swelling Comments: Oral rash, swelling of eyes, asthma attacks; per pateint report. XOLAIR (OMALIZUMAB) 04/19/2012 12 - Shortness of Breath Date Reviewed: 10/25/2017 Reviewed by: Taty Corona Ma - Fully Assessed Reason for Visit: Follow Up [171] Cmt: left ankle pain Primary Visit Diagnosis:Peroneal tendinitis, left [M76.72] Prescriptions as of 10/25/2017 Sig: DOXAZOSIN 4 MG TABLET Take 1 tablet by mouth once d* AMLODIPINE 10 MG TABLET Take 1 tablet by mouth once d* COMPOUNDED PRESCRIPTION Please fit for CPAP mask. Pat* CROMOLYN 20 MG/2 ML SOLUTION * Use 20 mg via nebulizer three* EPINEPHRINE 0.3 MG/0.3 ML INJ* Inject 0.3 mL intramuscularly* DIPHENHYDRAMINE 25 MG TABLET Take 1 tablet by mouth every * PREGABALIN 150 MG CAPSULE Take 1 capsule by mouth twice* PREGABALIN 150 MG CAPSULE Take 1 capsule by mouth twice* ATORVASTATIN 20 MG TABLET One tab on MWF only SPIRONOLACTONE 50 MG TABLET Take 1 tablet by mouth twice * LANSOPRAZOLE 30 MG CAPSULE,DE* TAKE 1 CAPSULE TWICE A DAY BUMETANIDE 0.5 MG TABLET Take 1 tablet by mouth once d* NITROGLYCERIN 0.4 MG SUBLINGU* DISSOLVE 1 TABLET UNDER THE T* ALBUTEROL SULFATE HFA 90 MCG/* Inhale 2 Puffs as instructed * FLUTICASONE 100 MCG-VILANTERO* Inhale 1 Inhalation as instru* Patient taking differently: Inhale 2 Inhalation as instru* LEVALBUTEROL 1.25 MG/3 ML BRENDA* Use 1 Ampule via nebulizer ev* FLUTICASONE 50 MCG/ACTUATION * 1-2 sprays each side qd BUDESONIDE 0.5 MG/2 ML SUSPEN* Use 1 Ampule via nebulizer tw* AZELASTINE 0.15 % (205.5 MCG)* Use 1 Wilberforce in each nostril t* COMPOUNDED PRESCRIPTION Nocturnal oximetry on room ai* CHOLESTYRAMINE (WITH SUGAR) 4* Take 1 scoop by mouth once da* CYANOCOBALAMIN (VIT B-12) 1,0* Take 1 tablet by mouth once d* ATENOLOL 25 MG TABLET Take 1 tablet by mouth once d* ERGOCALCIFEROL (VITAMIN D2) 5* Take 1 capsule by mouth once * Patient taking differently: Take 50,000 Units by mouth on* TURMERIC ROOT EXTRACT ORAL Take 1 tablet by mouth twice * CRISABOROLE 2 % TOPICAL OINTM* Apply to the hands twice daily COMPOUNDED PRESCRIPTION Please provide patient with n* CETIRIZINE 10 MG TABLET Take 10 mg by mouth once mary ellen* PIMECROLIMUS 1 % TOPICAL CREAM Apply twice daily to the hands ONDANSETRON HCL 4 MG TABLET Take 1 tablet by mouth every * BENZONATATE 200 MG CAPSULE Take 200 mg by mouth three ti* LACTOBACILLUS RHAMNOSUS GG 10* Take 1 capsule by mouth twice* AMOXICILLIN 250 MG CAPSULE Take 250 mg by mouth once liam* ZAFIRLUKAST 20 MG TABLET Take 1 tablet by mouth twice * CYCLOSPORINE MODIFIED 50 MG C* Take 50 mg by mouth twice liam* ASCORBIC ACID (VITAMIN C) 500* Take 1 tablet by mouth once d* Problem List As Of Date 10/25/2017 Noted Resolved JOINT PAIN-ANKLE [M25.579] INVALID FOR*03/20/2014 Edema [R60.9] INVALID FOR*03/28/2016 Priority: I Adrenal nodule (HCC) [E27.9] INVALID FOR* More... Diarrhea [R19.7] INVALID FOR*10/15/2013 Excessive or frequent menstruation [N92.0] INVALID FOR*07/14/2011 Shortness of breath [R06.02] INVALID FOR*10/15/2013 Palpitations [R00.2] INVALID FOR*03/20/2014 Tachycardia, unspecified [R00.0] INVALID FOR*10/15/2013 More... Open wound site NOS [T14.8XXA] INVALID FOR*07/16/2011 Abdominal pain, right upper quadrant [R10.11] INVALID FOR*07/14/2011 More... Acute gastritis without mention of hemorrhage [*INVALID FOR*10/15/2013 Hematuria [599.7] INVALID FOR*07/14/2011 URGE INCONTINENCE [N39.41] INVALID FOR* FEMALE STRESS INCONTINENCE [N39.3] INVALID FOR* Scar, hypertrophic [L91.0] INVALID FOR*10/15/2013 Ovarian cyst [N83.209] INVALID FOR*07/06/2010 Cyst INVALID FOR*10/15/2013 Other specified pre-operative examination [Z01.*INVALID FOR*07/16/2011 Hirsutism [L68.0] INVALID FOR* Dysphagia [R13.10] INVALID FOR*03/20/2014 GERD (gastroesophageal reflux disease) [K21.9] INVALID FOR* Priority: D More... 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 Obesity (BMI 30.0-34.9) [E66.9] INVALID FOR* More... More... More... More... Idiopathic anaphylaxis [T78.2XXA] INVALID FOR* Priority: A More... Urticaria, idiopathic [L50.1] INVALID FOR*03/28/2016 More... Hyperlipidemia LDL goal <100 [E78.5] INVALID FOR* Impaired fasting glucose [R73.01] INVALID FOR* Recurrent chest pain [R07.9, G89.29] INVALID FOR*12/09/2014 Multinodular goiter [E04.2] INVALID FOR* More... CKD (chronic kidney disease) stage 3, GFR 30-59*INVALID FOR* Pain in joint, ankle and foot [M25.579] INVALID FOR*12/09/2014 More... More... Steroid-induced hyperglycemia [R73.9, T38.0X5A] INVALID FOR*03/28/2016 Priority: C Moderate persistent asthma without complication*INVALID FOR* Ulcerative colitis without complications (HCC) *INVALID FOR* Anaphylaxis [T78.2XXA] INVALID FOR*03/26/2015 More... Neck pain, bilateral [M54.2] INVALID FOR*03/28/2016 Essential hypertension with goal blood pressure*INVALID FOR*03/28/2016 Chronic nausea [R11.0] INVALID FOR* Lumbar radiculitis [M54.16] INVALID FOR*03/28/2016 Lumbar stenosis [M48.061] INVALID FOR*03/28/2016 Acquired spondylolisthesis [M43.10] INVALID FOR*03/28/2016 Cervical radiculitis [M54.12] INVALID FOR*03/28/2016 Cervical spondylosis with radiculopathy [M47.22]INVALID FOR*03/29/2017 Shoulder impingement [M75.40] INVALID FOR*03/28/2016 Anaphylaxis [T78.2XXA] INVALID FOR*03/28/2016 Tendonitis, tibialis [M76.829] INVALID FOR*05/09/2016 Lumbar stenosis [M48.061] INVALID FOR* Cervical radiculitis [M54.12] INVALID FOR*03/29/2017 Cervical herniated disc [M50.20] INVALID FOR*03/29/2017 Cervical stenosis of spine [M48.02] INVALID FOR* Cervical spondylosis with myelopathy [M47.12] INVALID FOR*03/29/2017 Cervical myelopathy (HCC) [G95.9] INVALID FOR*03/29/2017 Claustrophobia [F40.240] INVALID FOR* Ptosis of eyelid, bilateral [H02.403] INVALID FOR*03/29/2017 More... Lumbar spondylosis [M47.816] INVALID FOR* More... Preop testing [Z01.818] INVALID FOR* More... Anaphylaxis [T78.2XXA] INVALID FOR* Essential hypertension [I10] INVALID FOR* Peroneal tendinitis, left [M76.72] INVALID FOR* Other instructions from your clinician: Dr. Ivette Murphy ([facility]) [facility] ([facility] [facility] Visit Notes: >> Taty Cj Nc MonOct 25, 2017 11:37 AM Status: Signed Patient presents with: Follow Up: left ankle pain Encounter Status:Closed by JANE MEZA DPM on 10/25/17 RENAL FUNCTION PANEL Collected: 10/24/2017 Status: F Source: [place] 11:15 AM [facility] [place] REPOSITORY TYPE CODE TESTS RESULT OUT OF REFERENCE UNITS RANGE LAB ALB 3.9-4.9 g/dL Albumin 4.3 LAB CA 8.5-10.2 mg/dL Calcium, Total 9.7 LAB PHOS 2.7-4.8 mg/dL Phosphorus 3.1 LAB GLU 74-99 mg/dL Glucose High 108 Result Comment: The [place] [employer] (ADA) provides guidance for cutoff values for fasting glucose and random glucose. The ADA defines fasting as no caloric intake for at least 8 hours. Fas ting plasma glucose results between 100 to 125 mg/dL indicate increased risk for diabetes (prediabetes). Fasting plasma glucose results greater than or equal to 126 mg/dL meet the criteria for diagnosis of diabetes. In the absence of unequivocal hyperglycemia, results should be confirmed by repeat testing. In a patient with classic symptoms of hyperglycemia or hyperglycemic crisis, random plasma glucose results greater than or equal to 200 mg/dL meet the criteria for diagnosis of diabetes. Reference: Standards of Medical Care in Diabetes 2016, [place] [employer]. Diabetes Care. 2016.39(Suppl 1). LAB BUN 7-21 mg/dL BUN 16 LAB CRET 0.58-0.96 mg/dL Creatinine High 1.07 LAB NA 136-144 mmol/L Sodium 142 LAB K 3.7-5.1 mmol/L Potassium 4.5 LAB CL 97-105 mmol/L Chloride High 107 LAB CO2 22-30 mmol/L CO2 24 LAB AGAP 9-18 mmol/L Anion Gap 11 LAB GFRAA eGFR- Amer. >60 LAB GFRNAA . eGFR-All Other Races 52 Result Comment: eGFR (Estimated GFR) Units of measure: mL/min/1.73 meters squared eGFR is derived from the reexpressed MDRD Study equation using the following parameters: serum creatinine, age, gender and race. The creatinine assay has been calibrated to be traceable to IDMS. An eGFR <60 mL/min/1.73m2 for >3 months is consistent with chronic kidney disease. Refer to KDOQI guidelines for clinical interpretation. In patients with unstable renal function, e.g. those with acute kidney injury, the eGFR may not accurately reflect actual GFR. Performed By: #### RFP, TSH, ACTH, ALDREN #### [facility] [address] [address] #### FRCORT #### [facility] [address] [place] [address] [phone] TSH Collected: 10/24/2017 Status: F Source: [place] 11:15 AM [facility] REPOSITORY TYPE CODE TESTS RESULT OUT OF RANGE REFERENCE UNITS LAB TSH 0.400-5.500 uU/mL TSH 2.650 Performed By: #### RFP, TSH, ACTH, ALDREN #### [facility] [address] [phone] #### FRCORT #### [facility] [address] [place] [address] [phone] ACTH Collected: 10/24/2017 Status: F Source: [place] 11:15 AM [facility] REPOSITORY TYPE CODE TESTS RESULT OUT OF RANGE REFERENCE UNITS LAB ACTH <47 pg/mL ACTH 8 Performed By: #### RFP, TSH, ACTH, ALDREN #### [facility] [address] [place], [place] [address] #### FRCORT #### [facility] [address] [place] [address] [phone] CHANG RENIN RATIO Collected: 10/24/2017 Status: F Source: [place] 11:15 AM [facility] REPOSITORY TYPE CODE TESTS RESULT OUT OF REFERENCE UNITS RANGE LAB CHANG 3.1-35.4 ng/dL Aldosterone High 56.8 Result Comment: Normal serum levels of aldosterone are dependent on the sodium intake and whether the patient is upright or supine. High sodium intake will tend to suppress serum aldosterone, whereas lo w sodium intake will elevate serum aldosterone. The reference interval for serum aldosterone are based on a normal sodium intake. Supine reference range <23.1 ng/dL LAB RENDI pg/mL Direct Renin 35.3 Result Comment: Renin Reference Range, 41-99 years: Upright: 3.6-81.6 pg/mL Supine: 2.5-45.1 pg/mL LAB ALREN <4 Chang Renin Ratio 2 Result Comment: An increased Chang/Renin ratio is suggestive, but not diagnostic of primary aldosteronism if aldosterone concentration is >15 ng/dL. Performed By: #### RFP, TSH, ACTH, ALDREN #### [facility] [address] [place], [place] [address] #### FRCORT #### [facility] [address] [place] [address] [phone] CORTISOL, FREE Collected: 10/24/2017 Status: F Source: [place] 11:15 AM [facility] REPOSITORY TYPE CODE TESTS RESULT OUT OF REFERENCE UNITS RANGE LAB CORTFR ug/dL Free Cortisol 0.41 Result Comment: (NOTE) 18 years of age and older: 8-10 a.m. collection: 0.21-1.04 ug/dL 4-6 p.m. collection: 0.10-0.63 ug/dL INTERPRETIVE INFORMATION: Cortisol, Free by [facility]/LC-MS/MS Test developed and characteristics determined by [facility]. See Compliance Statement B: [employer] Performed by [facility], [address] [place] [address] [email or web address], Shiva Sheets MD, Lab. Director Performed By: #### RFP, TSH, ACTH, ALDREN #### [facility] [address] [address] #### FRCORT #### [facility] [address] [place] [address] [phone] HISTORY PHYSICAL Observed: 10/23/2017 Status: COMPLETED Source: [place] 8:31 AM [facility] REPOSITORY HNO ID: [id number] Author: Pilar Ward Service: (none) Author Type: Physician Type: HANDP Filed: 10/23/2017 9:08 AM Note Text: [facility] NEPHROLOGY AND HYPERTENSION [facility] SERVICE DATE: 10/23/2017 SERVICE TIME: 8:34 AM CHIEF COMPLAINT: ckd HPI: Ms. Joshi is a 62 year old female who presents with CKD and HTN. Increase in creatinine since 2012. Level fluctuates. Baseline creatinine is 1.2. Had an increase in creatinine in March to 1.5. Unclear what occurred at that time. 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 Was on 100 mg bid. Kidney function declined and the dose was reduced to 50mg bid. Currently low levels. HTN diagnosed about 10 years. Currently on amlodipine, atenolol, spironolactone Bumex and doxazosin. Is on bumex for HTN and not lasix because of allergic reaction to one of the components of it. ? ? ? Duration (when): 2012 ? Location (where): kidneys ? Severity (ex: creat 4.5, BP 200/100): cr 1.8 ? Quality (ex: sharp, dull): na ? Context (ex: activity at onset or related to condition): cyclosporin ? Timing (ex: continuous, intermittent): intermittent ? PAST MEDICAL HISTORY: ACTIVE PROBLEM LIST Adrenal Nodule (Hcc) Urge Incontinence Female Stress Incontinence Hirsutism Gerd (Gastroesophageal Reflux Disease) THONY (obstructive sleep apnea) Obesity (Bmi 30.0-34.9) Idiopathic anaphylaxis Hyperlipidemia Ldl Goal <100 Impaired Fasting Glucose Multinodular Goiter CKD (chronic kidney disease) stage 3, GFR 30-59 ml/min (HCC) Moderate Persistent Asthma Without Complication Ulcerative Colitis Without Complications (Hcc) Chronic Nausea Lumbar Stenosis Cervical Stenosis of Spine Claustrophobia Lumbar Spondylosis Preop Testing Anaphylaxis Essential Hypertension Peroneal Tendinitis, Left MEDICATIONS: COMPOUNDED PRESCRIPTION Please fit for CPAP mask. Patient with previous allergic/anaphylaxis reaction to mask. DME: [facility]. cromolyn (INTAL) 20 mg/2 mL nebulizer solution Use 20 mg via nebulizer three times daily. EPINEPHrine (EPIPEN) 0.3 mg/0.3 mL auto-injector Inject 0.3 mL intramuscularly as needed. Inject full content of the syringe. diphenhydrAMINE (BENADRYL) 25 mg tablet Take 1 tablet by mouth every 6 hours as needed for Itching/Rash. atorvastatin (LIPITOR) 20 mg tablet One tab on MWF only lansoprazole (PREVACID) 30 mg capsule TAKE 1 CAPSULE TWICE A DAY bumetanide (BUMEX) 0.5 mg tablet Take 1 tablet by mouth once daily. albuterol HFA (PROAIR HFA) 90 mcg/actuation inhaler Inhale 2 Puffs as instructed every 6 hours as needed for Wheezing/Shortness of Breath. fluticasone-vilanterol (BREO ELLIPTA) 100-25 mcg/dose inhaler Inhale 1 Inhalation as instructed once daily. fluticasone (FLONASE) 50 mcg/actuation nasal spray 1-2 sprays each side qd budesonide (PULMICORT) 0.5 mg/2 mL nebulizer solution Use 1 Ampule via nebulizer twice daily. Azelastine 0.15 % (205.5 mcg) spry Use 1 Wilberforce in each nostril twice daily. COMPOUNDED PRESCRIPTION Nocturnal oximetry on room air. DME: [facility] cholestyramine-sucrose (QUESTRAN) 4 gram powder Take 1 scoop by mouth once daily. amLODIPine (NORVASC) 10 mg tablet Take 0.5 tablets by mouth once daily. cyanocobalamin (VITAMIN B-12) 1,000 mcg tab Take 1 tablet by mouth once daily. atenolol (TENORMIN) 25 mg tablet Take 1 tablet by mouth once daily. ergocalciferol, vitamin D2, (VITAMIN D) 50,000 unit capsule Take 1 capsule by mouth once each week. crisaborole (EUCRISA) 2 % oint Apply to the hands twice daily COMPOUNDED PRESCRIPTION Please provide patient with nebulizer machine and supplies.Diagnosis: Severe Asthma. cetirizine (ZYRTEC) 10 mg tablet Take 10 mg by mouth once daily. Benzonatate 200 mg capsule Take 200 mg by mouth three times daily as needed for Cough. lactobacillus rhamnosus (CULTURELLE) 10 billion cell capsule Take 1 capsule by mouth twice daily. amoxicillin (POLYMOX, AMOXIL) 250 mg capsule Take 250 mg by mouth once daily. doxazosin (CARDURA) 2 mg tablet Take 2 mg by mouth once daily. cycloSPORINE Modified 50 mg capsule Take 50 mg by mouth twice daily. ascorbic acid (VITAMIN C) 500 mg tablet Take 1 tablet by mouth once daily. pregabalin (LYRICA) 150 mg capsule Take 1 capsule by mouth twice daily for 181 days. pregabalin (LYRICA) 150 mg capsule Take 1 capsule by mouth twice daily for 90 days. spironolactone (ALDACTONE) 50 mg tablet Take 1 tablet by mouth twice daily. nitroglycerin sublingual (NITROQUICK) 0.4 mg SL tablet DISSOLVE 1 TABLET UNDER THE TONGUE NEEDED FOR CHEST PAIN, IF NO RELIEF CALL 911 levalbuterol (XOPENEX) 1.25 mg/3 mL nebulizer solution Use 1 Ampule via nebulizer every 4 hours as needed. Inhale over 5-15 minutes TURMERIC ROOT EXTRACT ORAL Take 1 tablet by mouth twice daily. pimecrolimus (ELIDEL) 1 % cream Apply twice daily to the hands ondansetron (ZOFRAN) 4 mg tablet Take 1 tablet by mouth every 8 hours as needed. zafirlukast (ACCOLATE) 20 mg tablet Take 1 tablet by mouth twice daily. ALLERGIES: ALLERGIES Allergen Reactions - Avocado Anaphylaxis - Banana Anaphylaxis - Carbinoxamine Anaphylaxis - Yoselin Seed Anaphylaxis - Ciprofloxacin Anaphylaxis - Codeine Anaphylaxis - Contrast Dye Anaphylaxis To MRI and CT - Fish Anaphylaxis - Hycodan [Hydrocodon* Anaphylaxis Face and throat swelling - Latex Anaphylaxis - Imtiaz-Synephrine [Phe* Anaphylaxis 10% eye drop - Nickel Rash, Hives, Anaphylaxis - Nsaids (Non-Steroid* Other: See Comments Kidney function drops; reversible kidney damage. - Oxycodone Anaphylaxis - Periactin [Cyprohep* Anaphylaxis - Pneumococcal Vaccine Anaphylaxis - Shellfish Anaphylaxis - Zantac [Ranitidine] Anaphylaxis - Ativan [Lorazepam] Other: See Comments hallucination - Beef Containing Pro* Rash - Berino Other: See Comments Feels like an asthma attack. - Eggs [Egg] Rash, Vomiting - Ekg Leads [Adhesive] Rash Localized,only under the leads - Environmental [Othe* Other: See Comments Nasal congestion, brings on an asthma attack. - Influenza Virus Vac* Shortness of Breath - Lisinopril Cough - Milk Rash, Vomiting - Mometasone Anaphylaxis Per Dr. Salas she tolerates formoterol (on Breo at home) but is allergic to mometasone. Okayed by him to update. - Surgical Tape [Othe* Rash, Swelling Oral rash, swelling of eyes, asthma attacks; per pateint report. - Xolair [Omalizumab] Shortness of Breath REVIEW OF SYSTEMS: Constitutional: No complaints Cardiovascular: No complaints Genitourinary: No complaints PHYSICAL EXAM: BP 142/89 (BP Site: Left Arm, BP Position: Sitting, BP Cuff Size: Large Adult) Pulse 78 Temp 36.8 ?C (98.3 ?F) (Left Tympanic) Ht 162.6 cm (5' 4) Wt 95.2 kg (209 lb 14.4 oz) LMP 08/07/2013 BMI 36.03 kg/m? Average BP (BpTru): 142/89 BpTRU BP #1 discard value (BpTru): 149/93 Pulse #1 Discard Value (BpTru): 81 beats/min BP #2 (BpTru): 144/91 Pulse #2 (BpTru): 79 beats/min BP #3 (BpTru): 143/89 Pulse #3 (BpTru): 80 beats/min BP #4 (BpTru): 142/88 Pulse #4 (BpTru): 79 beats/min BP #5 (BpTru): 140/89 Pulse #5 (BpTru): 78 beats/min BP #6 (BpTru): 140/86 Pulse #6 (BpTru): 76 beats/min Average BP (BpTru): 142/89 Average Pulse (BpTru): 78 beats/min BP cuff location: Left upper arm BP cuff size: large adult Orthostatic Vitals Standing BP (BpTru): 135/88 Standing pulse (BpTru): 85 Constitutional: No acute distress, well nourished Eyes: Conjunctiva clear, extra-ocular movements intact Ear, Nose, and Throat: Lips and dentition normal Neck: trachea midline, no palpable mass Cardiovascular: RRR, nl S1/S2, no murmurs, no peripheral edema Respiratory: normal inspiratory effort, CTA b/l Abdomen: soft, non tender, non distended, normal bowel sounds Musculoskeletal: normocephalic, no muscle weakness, no joint effusions Neurologic: normal sensation, CN II-XII intact Psychiatric: AAO x 3, normal affect Skin: No rashes, skin dry DATA: Diagnostic tests reviewed for today's visit: Recent Labs 10/23/17 0821 08/14/17 0900 06/26/17 0754 04/19/17 1041 04/12/17 1159 COLOR Yellow Yellow Yellow Yellow Yellow CLARITY Clear Cloudy* Cloudy* Cloudy* Cloudy* UGLUC Negative Negative Negative Negative Negative UBILI Negative Negative Negative Negative Negative UKET Negative Negative Negative Trace* Negative SPGR 1.012 1.013 1.016 1.023 1.021 UHB Negative Negative Negative Negative Negative UPH 6.0 6.0 6.0 5.0 5.0 UPROT Negative Negative Negative 30* Negative NITRITES Negative Negative Negative Negative Negative LEUKEST Negative Trace* Negative Trace* Trace* UWBC -- 6-10* -- 0-5 0-5 URBC -- 0-3 -- 0-3 0-3 PTH, Intact (pg/mL) Date Value 06/26/2017 39 06/16/2016 44 11/05/2015 40 Vitamin D 25 Hydroxy (ng/mL) Date Value 06/26/2017 43.7 12/17/2013 34.1 10/21/2013 37.0 Iron (ug/dL) Date Value 04/12/2017 144 Transferrin Saturation (%) Date Value 04/12/2017 42 Ferritin (ng/mL) Date Value 04/12/2017 48.0 BUN (mg/dL) Date Value 08/14/2017 21 06/26/2017 15 04/12/2017 24 04/12/2017 24 04/05/2017 20 03/17/2017 22 01/23/2017 33 11/19/2016 21 Creatinine (mg/dL) Date Value 08/14/2017 1.23 06/26/2017 1.07 04/12/2017 1.48 04/12/2017 1.51 04/05/2017 1.19 03/17/2017 1.14 01/23/2017 1.35 11/19/2016 1.25 eGFR- (no units) Date Value 08/14/2017 54 06/26/2017 >60 04/12/2017 43 04/12/2017 42 04/05/2017 56 03/17/2017 59 01/23/2017 48 11/19/2016 53 eGFR-All Other Races (.) Date Value 08/14/2017 44 06/26/2017 52 04/12/2017 36 04/12/2017 35 04/05/2017 46 03/17/2017 49 01/23/2017 40 11/19/2016 44 Adrenal glands: Right adrenal gland: Focal nodule / mass. Lesion characteristics: - Dimensions: 2.3 x 1.5-cm (3:30), previously 2.3 x 1.5 - Non-contrast attenuation: -9 H.U. ASSESSMENT: 62 year old female who presents with CKD ASSESSMENT/PLAN: 1. CKD (chronic kidney disease) stage 3, GFR 30-59 ml/min ([facility]) - ICD9: 585.3, ICD10: N18.3 (primary diagnosis) Secondary to chronic calcineurin inhibitor nephrotoxicity and HTN Creatinine fluctuates Will repeat renal function and all ckd labs She will talk to her clerical investigator about options for IS in case that is needed in the future. For now continue current medications Follow up in 6 months by [facility] - RENAL FUNCTION PANEL - CBC + DIFF ? 2. Essential hypertension - ICD9: 401.9, ICD10: I10 - slightly above goal - Recommended regular aerobic exercise. - Recommend home blood pressure monitoring, to bring results in on next visit - Goal of BP <130/80 - refill for amlodipine and increase doxazosin ?? 3. Adrenal mass (HCC) - ICD9: 255.9, ICD10: E27.9 Followed by endocrinology Will repeat chang levels Patient wants to consider surgery if it is an option. She has been evaluated for it in the past but never had adrenal vein sampling. SIGNATURE: Pilar Ward MD PATIENT NAME: Ralph Joshi DATE: October 23, 2017 TIME: 8:34 AM OFFICE NUMBER: CC: PRIMARY CARE PHYSICIAN: Anisa Caldwell MD CNOV Observed: 10/23/2017 Status: COMPLETED Source: [place] 8:30 AM [facility] REPOSITORY Office Visit (NEPHMN) RALPH JOSHI ([id number]) 1955 F Date Time Provider Department 10/23/17 8:30 AM PILAR WARD NEPHMN During your visit today, we recorded the following information about you: Temperature Pulse Blood pressure Weight 98.3 degrees 78/minute 142/89 95.2 kg Height 1.626 m Pilar Ward MD 10/23/2017 9:08 AM Signed [facility] NEPHROLOGY AND HYPERTENSION [facility] SERVICE DATE: 10/23/2017 SERVICE TIME: 8:34 AM CHIEF COMPLAINT: ckd HPI: Ms. Joshi is a 62 year old female who presents with CKD and HTN. Increase in creatinine since 2012. Level fluctuates. Baseline creatinine is 1.2. Had an increase in creatinine in March to 1.5. Unclear what occurred at that time. 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 Was on 100 mg bid. Kidney function declined and the dose was reduced to 50mg bid. Currently low levels. HTN diagnosed about 10 years. Currently on amlodipine, atenolol, spironolactone Bumex and doxazosin. Is on bumex for HTN and not lasix because of allergic reaction to one of the components of it. ? ? ? Duration (when): 2012 ? Location (where): kidneys ? Severity (ex: creat 4.5, BP 200/100): cr 1.8 ? Quality (ex: sharp, dull): na ? Context (ex: activity at onset or related to condition): cyclosporin ? Timing (ex: continuous, intermittent): intermittent ? PAST MEDICAL HISTORY: ACTIVE PROBLEM LIST Adrenal Nodule (Hcc) Urge Incontinence Female Stress Incontinence Hirsutism Gerd (Gastroesophageal Reflux Disease) THONY (obstructive sleep apnea) Obesity (Bmi 30.0-34.9) Idiopathic anaphylaxis Hyperlipidemia Ldl Goal <100 Impaired Fasting Glucose Multinodular Goiter CKD (chronic kidney disease) stage 3, GFR 30-59 ml/min (HCC) Moderate Persistent Asthma Without Complication Ulcerative Colitis Without Complications (Hcc) Chronic Nausea Lumbar Stenosis Cervical Stenosis of Spine Claustrophobia Lumbar Spondylosis Preop Testing Anaphylaxis Essential Hypertension Peroneal Tendinitis, Left MEDICATIONS: COMPOUNDED PRESCRIPTION Please fit for CPAP mask. Patient with previous allergic/anaphylaxis reaction to mask. DME: [employer]. cromolyn (INTAL) 20 mg/2 mL nebulizer solution Use 20 mg via nebulizer three times daily. EPINEPHrine (EPIPEN) 0.3 mg/0.3 mL auto-injector Inject 0.3 mL intramuscularly as needed. Inject full content of the syringe. diphenhydrAMINE (BENADRYL) 25 mg tablet Take 1 tablet by mouth every 6 hours as needed for Itching/Rash. atorvastatin (LIPITOR) 20 mg tablet One tab on MWF only lansoprazole (PREVACID) 30 mg capsule TAKE 1 CAPSULE TWICE A DAY bumetanide (BUMEX) 0.5 mg tablet Take 1 tablet by mouth once daily. albuterol HFA (PROAIR HFA) 90 mcg/actuation inhaler Inhale 2 Puffs as instructed every 6 hours as needed for Wheezing/Shortness of Breath. fluticasone-vilanterol (BREO ELLIPTA) 100-25 mcg/dose inhaler Inhale 1 Inhalation as instructed once daily. fluticasone (FLONASE) 50 mcg/actuation nasal spray 1-2 sprays each side qd budesonide (PULMICORT) 0.5 mg/2 mL nebulizer solution Use 1 Ampule via nebulizer twice daily. Azelastine 0.15 % (205.5 mcg) spry Use 1 Wilberforce in each nostril twice daily. COMPOUNDED PRESCRIPTION Nocturnal oximetry on room air. DME: [facility] cholestyramine-sucrose (QUESTRAN) 4 gram powder Take 1 scoop by mouth once daily. amLODIPine (NORVASC) 10 mg tablet Take 0.5 tablets by mouth once daily. cyanocobalamin (VITAMIN B-12) 1,000 mcg tab Take 1 tablet by mouth once daily. atenolol (TENORMIN) 25 mg tablet Take 1 tablet by mouth once daily. ergocalciferol, vitamin D2, (VITAMIN D) 50,000 unit capsule Take 1 capsule by mouth once each week. crisaborole (EUCRISA) 2 % oint Apply to the hands twice daily COMPOUNDED PRESCRIPTION Please provide patient with nebulizer machine and supplies.Diagnosis: Severe Asthma. cetirizine (ZYRTEC) 10 mg tablet Take 10 mg by mouth once daily. Benzonatate 200 mg capsule Take 200 mg by mouth three times daily as needed for Cough. lactobacillus rhamnosus (CULTURELLE) 10 billion cell capsule Take 1 capsule by mouth twice daily. amoxicillin (POLYMOX, AMOXIL) 250 mg capsule Take 250 mg by mouth once daily. doxazosin (CARDURA) 2 mg tablet Take 2 mg by mouth once daily. cycloSPORINE Modified 50 mg capsule Take 50 mg by mouth twice daily. ascorbic acid (VITAMIN C) 500 mg tablet Take 1 tablet by mouth once daily. pregabalin (LYRICA) 150 mg capsule Take 1 capsule by mouth twice daily for 181 days. pregabalin (LYRICA) 150 mg capsule Take 1 capsule by mouth twice daily for 90 days. spironolactone (ALDACTONE) 50 mg tablet Take 1 tablet by mouth twice daily. nitroglycerin sublingual (NITROQUICK) 0.4 mg SL tablet DISSOLVE 1 TABLET UNDER THE TONGUE NEEDED FOR CHEST PAIN, IF NO RELIEF CALL 911 levalbuterol (XOPENEX) 1.25 mg/3 mL nebulizer solution Use 1 Ampule via nebulizer every 4 hours as needed. Inhale over 5-15 minutes TURMERIC ROOT EXTRACT ORAL Take 1 tablet by mouth twice daily. pimecrolimus (ELIDEL) 1 % cream Apply twice daily to the hands ondansetron (ZOFRAN) 4 mg tablet Take 1 tablet by mouth every 8 hours as needed. zafirlukast (ACCOLATE) 20 mg tablet Take 1 tablet by mouth twice daily. ALLERGIES: ALLERGIES Allergen Reactions - Avocado Anaphylaxis - Banana Anaphylaxis - Carbinoxamine Anaphylaxis - Yoselin Seed Anaphylaxis - Ciprofloxacin Anaphylaxis - Codeine Anaphylaxis - Contrast Dye Anaphylaxis To MRI and CT - Fish Anaphylaxis - Hycodan [Hydrocodon* Anaphylaxis Face and throat swelling - Latex Anaphylaxis - Imtiaz-Synephrine [Phe* Anaphylaxis 10% eye drop - Nickel Rash, Hives, Anaphylaxis - Nsaids (Non-Steroid* Other: See Comments Kidney function drops; reversible kidney damage. - Oxycodone Anaphylaxis - Periactin [Cyprohep* Anaphylaxis - Pneumococcal Vaccine Anaphylaxis - Shellfish Anaphylaxis - Zantac [Ranitidine] Anaphylaxis - Ativan [Lorazepam] Other: See Comments hallucination - Beef Containing Pro* Rash - Berino Other: See Comments Feels like an asthma attack. - Eggs [Egg] Rash, Vomiting - Ekg Leads [Adhesive] Rash Localized,only under the leads - Environmental [Othe* Other: See Comments Nasal congestion, brings on an asthma attack. - Influenza Virus Vac* Shortness of Breath - Lisinopril Cough - Milk Rash, Vomiting - Mometasone Anaphylaxis Per Dr. Salas she tolerates formoterol (on Breo at home) but is allergic to mometasone. Okayed by him to update. - Surgical Tape [Othe* Rash, Swelling Oral rash, swelling of eyes, asthma attacks; per pateint report. - Xolair [Omalizumab] Shortness of Breath REVIEW OF SYSTEMS: Constitutional: No complaints Cardiovascular: No complaints Genitourinary: No complaints PHYSICAL EXAM: BP 142/89 (BP Site: Left Arm, BP Position: Sitting, BP Cuff Size: Large Adult) Pulse 78 Temp 36.8 ?C (98.3 ?F) (Left Tympanic) Ht 162.6 cm (5' 4) Wt 95.2 kg (209 lb 14.4 oz) LMP 08/07/2013 BMI 36.03 kg/m? Average BP (BpTru): 142/89 BpTRU BP #1 discard value (BpTru): 149/93 Pulse #1 Discard Value (BpTru): 81 beats/min BP #2 (BpTru): 144/91 Pulse #2 (BpTru): 79 beats/min BP #3 (BpTru): 143/89 Pulse #3 (BpTru): 80 beats/min BP #4 (BpTru): 142/88 Pulse #4 (BpTru): 79 beats/min BP #5 (BpTru): 140/89 Pulse #5 (BpTru): 78 beats/min BP #6 (BpTru): 140/86 Pulse #6 (BpTru): 76 beats/min Average BP (BpTru): 142/89 Average Pulse (BpTru): 78 beats/min BP cuff location: Left upper arm BP cuff size: large adult Orthostatic Vitals Standing BP (BpTru): 135/88 Standing pulse (BpTru): 85 Constitutional: No acute distress, well nourished Eyes: Conjunctiva clear, extra-ocular movements intact Ear, Nose, and Throat: Lips and dentition normal Neck: trachea midline, no palpable mass Cardiovascular: RRR, nl S1/S2, no murmurs, no peripheral edema Respiratory: normal inspiratory effort, CTA b/l Abdomen: soft, non tender, non distended, normal bowel sounds Musculoskeletal: normocephalic, no muscle weakness, no joint effusions Neurologic: normal sensation, CN II-XII intact Psychiatric: AAO x 3, normal affect Skin: No rashes, skin dry DATA: Diagnostic tests reviewed for today's visit: Recent Labs 10/23/17 0821 08/14/17 0900 06/26/17 0754 04/19/17 1041 04/12/17 1159 COLOR Yellow Yellow Yellow Yellow Yellow CLARITY Clear Cloudy* Cloudy* Cloudy* Cloudy* UGLUC Negative Negative Negative Negative Negative UBILI Negative Negative Negative Negative Negative UKET Negative Negative Negative Trace* Negative SPGR 1.012 1.013 1.016 1.023 1.021 UHB Negative Negative Negative Negative Negative UPH 6.0 6.0 6.0 5.0 5.0 UPROT Negative Negative Negative 30* Negative NITRITES Negative Negative Negative Negative Negative LEUKEST Negative Trace* Negative Trace* Trace* UWBC -- 6-10* -- 0-5 0-5 URBC -- 0-3 -- 0-3 0-3 PTH, Intact (pg/mL) Date Value 06/26/2017 39 06/16/2016 44 11/05/2015 40 Vitamin D 25 Hydroxy (ng/mL) Date Value 06/26/2017 43.7 12/17/2013 34.1 10/21/2013 37.0 Iron (ug/dL) Date Value 04/12/2017 144 Transferrin Saturation (%) Date Value 04/12/2017 42 Ferritin (ng/mL) Date Value 04/12/2017 48.0 BUN (mg/dL) Date Value 08/14/2017 21 06/26/2017 15 04/12/2017 24 04/12/2017 24 04/05/2017 20 03/17/2017 22 01/23/2017 33 11/19/2016 21 Creatinine (mg/dL) Date Value 08/14/2017 1.23 06/26/2017 1.07 04/12/2017 1.48 04/12/2017 1.51 04/05/2017 1.19 03/17/2017 1.14 01/23/2017 1.35 11/19/2016 1.25 eGFR- (no units) Date Value 08/14/2017 54 06/26/2017 >60 04/12/2017 43 04/12/2017 42 04/05/2017 56 03/17/2017 59 01/23/2017 48 11/19/2016 53 eGFR-All Other Races (.) Date Value 08/14/2017 44 06/26/2017 52 04/12/2017 36 04/12/2017 35 04/05/2017 46 03/17/2017 49 01/23/2017 40 11/19/2016 44 Adrenal glands: Right adrenal gland: Focal nodule / mass. Lesion characteristics: - Dimensions: 2.3 x 1.5-cm (3:30), previously 2.3 x 1.5 - Non-contrast attenuation: -9 H.U. ASSESSMENT: 62 year old female who presents with CKD ASSESSMENT/PLAN: 1. CKD (chronic kidney disease) stage 3, GFR 30-59 ml/min (HCC) - ICD9: 585.3, ICD10: N18.3 (primary diagnosis) Secondary to chronic calcineurin inhibitor nephrotoxicity and HTN Creatinine fluctuates Will repeat renal function and all ckd labs She will talk to her clerical investigator about options for IS in case that is needed in the future. For now continue current medications Follow up in 6 months by [facility] - RENAL FUNCTION PANEL - CBC + DIFF ? 2. Essential hypertension - ICD9: 401.9, ICD10: I10 - slightly above goal - Recommended regular aerobic exercise. - Recommend home blood pressure monitoring, to bring results in on next visit - Goal of BP <130/80 - refill for amlodipine and increase doxazosin ?? 3. Adrenal mass (HCC) - ICD9: 255.9, ICD10: E27.9 Followed by endocrinology Will repeat chang levels Patient wants to consider surgery if it is an option. She has been evaluated for it in the past but never had adrenal vein sampling. SIGNATURE: Pilar Ward MD PATIENT NAME: Ralph Joshi DATE: October 23, 2017 TIME: 8:34 AM OFFICE NUMBER: CC: PRIMARY CARE PHYSICIAN: Anisa Caldwell MD Referring Provider: MARTIN BOOTH [[id number]] Allergies As of Date: 10/23/2017 Noted Allergy Reaction AVOCADO 09/10/2014 10 - Anaphylaxis BANANA 09/10/2014 10 - Anaphylaxis CARBINOXAMINE 09/17/2012 10 - Anaphylaxis YOSELIN SEED 08/28/2013 10 - Anaphylaxis CIPROFLOXACIN 04/11/2014 10 - Anaphylaxis CODEINE 01/12/2012 10 - Anaphylaxis CONTRAST DYE 05/17/2013 10 - Anaphylaxis Comments: To MRI and CT FISH 09/07/2014 10 - Anaphylaxis HYCODAN (HYDROCODONE-HOMATROPINE) 09/08/2011 10 - Anaphylaxis Comments: Face and throat swelling LATEX 01/21/2014 10 - Anaphylaxis IMTIAZ-SYNEPHRINE (PHENYLEPHRINE HCL)09/04/2014 10 - Anaphylaxis Comments: 10% eye drop NICKEL 01/07/2014 2 - Rash 4 - Hives 10 - Anaphylaxis NSAIDS (NON-STEROIDAL ANTI-INFLAM*08/16/2010 14 - Other: See Comments Comments: Kidney function drops; reversible kidney damage. OXYCODONE 08/28/2013 10 - Anaphylaxis PERIACTIN (CYPROHEPTADINE) 09/17/2012 10 - Anaphylaxis PNEUMOCOCCAL VACCINE 10/31/2014 10 - Anaphylaxis SHELLFISH 09/07/2014 10 - Anaphylaxis ZANTAC (RANITIDINE) 09/17/2012 10 - Anaphylaxis ATIVAN (LORAZEPAM) 08/28/2013 14 - Other: See Comments Comments: hallucination BEEF CONTAINING PRODUCTS 09/10/2014 2 - Rash CORN 05/03/2011 14 - Other: See Comments Comments: Feels like an asthma attack. EGGS (EGG) 03/08/2011 2 - Rash 11 - Vomiting EKG LEADS (ADHESIVE) 10/22/2012 2 - Rash Comments: Localized,only under the leads environmental [Other] 06/26/2007 14 - Other: See Comments Comments: Nasal congestion, brings on an asthma attack. INFLUENZA VIRUS VACCINES 10/22/2012 12 - Shortness of Breath LISINOPRIL 04/20/2004 3 - Cough MILK 03/08/2011 2 - Rash 11 - Vomiting MOMETASONE 04/05/2017 10 - Anaphylaxis Comments: Per Dr. Salas she tolerates formoterol (on Breo at home) but is allergic to mometasone. Okayed by him to update. surgical tape [Other] 11/10/2009 2 - Rash 7 - Swelling Comments: Oral rash, swelling of eyes, asthma attacks; per pateint report. XOLAIR (OMALIZUMAB) 04/19/2012 12 - Shortness of Breath Date Reviewed: 10/23/2017 Reviewed by: Arabella Mckenzie MA - Fully Assessed Primary Visit Diagnosis:Screening for genitourinary condition [Z13.89] Other Visit Diagnoses:Disorder of adrenal gland (HCC) [E27.9] CKD (chronic kidney disease) stage 3, GFR 30-59 ml/min ([facility]) [N18.3] Benign essential HTN [I10] Essential hypertension [I10] Order(s):UA CHEMSTRIP ONLY [SQUA] Order #: [id number] FUTURE UA CHEMSTRIP ONLY [SQUA] Order #: [id number]. #:[id number] RENAL FUNCTION PANEL [SQRFP] Order #: [id number] FUTURE ALDOSTERONE/RENIN ACT RATIO [SQALDREN] Order #: [id number] FUTURE TSH BLD [SQTSH] Order #: [id number] FUTURE ACTH BLD [SQACTH] Order #: [id number] FUTURE CORTISOL, FREE [SQFRCORT] Order #: [id number] FUTURE CT ADRENAL WO IVCON [2713758] Order #: [id number] FUTURE doxazosin (CARDURA) 4 mg tabletTake 1 tablet by mouth once daily.Disp: 30 tabletRfl: 11 amLODIPine (NORVASC) 10 mg tabletTake 1 tablet by mouth once daily.Disp: 30 tabletRfl: 11 Prescriptions as of 10/23/2017 Sig: DOXAZOSIN 4 MG TABLET Take 1 tablet by mouth once d* AMLODIPINE 10 MG TABLET Take 1 tablet by mouth once d* COMPOUNDED PRESCRIPTION Please fit for CPAP mask. Pat* CROMOLYN 20 MG/2 ML SOLUTION * Use 20 mg via nebulizer three* EPINEPHRINE 0.3 MG/0.3 ML INJ* Inject 0.3 mL intramuscularly* DIPHENHYDRAMINE 25 MG TABLET Take 1 tablet by mouth every * ATORVASTATIN 20 MG TABLET One tab on MWF only LANSOPRAZOLE 30 MG CAPSULE,DE* TAKE 1 CAPSULE TWICE A DAY BUMETANIDE 0.5 MG TABLET Take 1 tablet by mouth once d* ALBUTEROL SULFATE HFA 90 MCG/* Inhale 2 Puffs as instructed * FLUTICASONE 100 MCG-VILANTERO* Inhale 1 Inhalation as instru* Patient taking differently: Inhale 2 Inhalation as instru* FLUTICASONE 50 MCG/ACTUATION * 1-2 sprays each side qd BUDESONIDE 0.5 MG/2 ML SUSPEN* Use 1 Ampule via nebulizer tw* AZELASTINE 0.15 % (205.5 MCG)* Use 1 Wilberforce in each nostril t* COMPOUNDED PRESCRIPTION Nocturnal oximetry on room ai* CHOLESTYRAMINE (WITH SUGAR) 4* Take 1 scoop by mouth once da* CYANOCOBALAMIN (VIT B-12) 1,0* Take 1 tablet by mouth once d* ATENOLOL 25 MG TABLET Take 1 tablet by mouth once d* ERGOCALCIFEROL (VITAMIN D2) 5* Take 1 capsule by mouth once * Patient taking differently: Take 50,000 Units by mouth on* CRISABOROLE 2 % TOPICAL OINTM* Apply to the hands twice daily COMPOUNDED PRESCRIPTION Please provide patient with n* CETIRIZINE 10 MG TABLET Take 10 mg by mouth once mary ellen* BENZONATATE 200 MG CAPSULE Take 200 mg by mouth three ti* LACTOBACILLUS RHAMNOSUS GG 10* Take 1 capsule by mouth twice* AMOXICILLIN 250 MG CAPSULE Take 250 mg by mouth once liam* CYCLOSPORINE MODIFIED 50 MG C* Take 50 mg by mouth twice liam* ASCORBIC ACID (VITAMIN C) 500* Take 1 tablet by mouth once d* PREGABALIN 150 MG CAPSULE Take 1 capsule by mouth twice* PREGABALIN 150 MG CAPSULE Take 1 capsule by mouth twice* SPIRONOLACTONE 50 MG TABLET Take 1 tablet by mouth twice * NITROGLYCERIN 0.4 MG SUBLINGU* DISSOLVE 1 TABLET UNDER THE T* LEVALBUTEROL 1.25 MG/3 ML BRENDA* Use 1 Ampule via nebulizer ev* TURMERIC ROOT EXTRACT ORAL Take 1 tablet by mouth twice * PIMECROLIMUS 1 % TOPICAL CREAM Apply twice daily to the hands ONDANSETRON HCL 4 MG TABLET Take 1 tablet by mouth every * ZAFIRLUKAST 20 MG TABLET Take 1 tablet by mouth twice * Problem List As Of Date 10/23/2017 Noted Resolved JOINT PAIN-ANKLE [M25.579] INVALID FOR*03/20/2014 Edema [R60.9] INVALID FOR*03/28/2016 Priority: I Adrenal nodule (HCC) [E27.9] INVALID FOR* More... Diarrhea [R19.7] INVALID FOR*10/15/2013 Excessive or frequent menstruation [N92.0] INVALID FOR*07/14/2011 Shortness of breath [R06.02] INVALID FOR*10/15/2013 Palpitations [R00.2] INVALID FOR*03/20/2014 Tachycardia, unspecified [R00.0] INVALID FOR*10/15/2013 More... Open wound site NOS [T14.8XXA] INVALID FOR*07/16/2011 Abdominal pain, right upper quadrant [R10.11] INVALID FOR*07/14/2011 More... Acute gastritis without mention of hemorrhage [*INVALID FOR*10/15/2013 Hematuria [599.7] INVALID FOR*07/14/2011 URGE INCONTINENCE [N39.41] INVALID FOR* FEMALE STRESS INCONTINENCE [N39.3] INVALID FOR* Scar, hypertrophic [L91.0] INVALID FOR*10/15/2013 Ovarian cyst [N83.209] INVALID FOR*07/06/2010 Cyst INVALID FOR*10/15/2013 Other specified pre-operative examination [Z01.*INVALID FOR*07/16/2011 Hirsutism [L68.0] INVALID FOR* Dysphagia [R13.10] INVALID FOR*03/20/2014 GERD (gastroesophageal reflux disease) [K21.9] INVALID FOR* Priority: D More... 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 Obesity (BMI 30.0-34.9) [E66.9] INVALID FOR* More... More... More... More... Idiopathic anaphylaxis [T78.2XXA] INVALID FOR* Priority: A More... Urticaria, idiopathic [L50.1] INVALID FOR*03/28/2016 More... Hyperlipidemia LDL goal <100 [E78.5] INVALID FOR* Impaired fasting glucose [R73.01] INVALID FOR* Recurrent chest pain [R07.9, G89.29] INVALID FOR*12/09/2014 Multinodular goiter [E04.2] INVALID FOR* More... CKD (chronic kidney disease) stage 3, GFR 30-59*INVALID FOR* Pain in joint, ankle and foot [M25.579] INVALID FOR*12/09/2014 More... More... Steroid-induced hyperglycemia [R73.9, T38.0X5A] INVALID FOR*03/28/2016 Priority: C Moderate persistent asthma without complication*INVALID FOR* Ulcerative colitis without complications (HCC) *INVALID FOR* Anaphylaxis [T78.2XXA] INVALID FOR*03/26/2015 More... Neck pain, bilateral [M54.2] INVALID FOR*03/28/2016 Essential hypertension with goal blood pressure*INVALID FOR*03/28/2016 Chronic nausea [R11.0] INVALID FOR* Lumbar radiculitis [M54.16] INVALID FOR*03/28/2016 Lumbar stenosis [M48.061] INVALID FOR*03/28/2016 Acquired spondylolisthesis [M43.10] INVALID FOR*03/28/2016 Cervical radiculitis [M54.12] INVALID FOR*03/28/2016 Cervical spondylosis with radiculopathy [M47.22]INVALID FOR*03/29/2017 Shoulder impingement [M75.40] INVALID FOR*03/28/2016 Anaphylaxis [T78.2XXA] INVALID FOR*03/28/2016 Tendonitis, tibialis [M76.829] INVALID FOR*05/09/2016 Lumbar stenosis [M48.061] INVALID FOR* Cervical radiculitis [M54.12] INVALID FOR*03/29/2017 Cervical herniated disc [M50.20] INVALID FOR*03/29/2017 Cervical stenosis of spine [M48.02] INVALID FOR* Cervical spondylosis with myelopathy [M47.12] INVALID FOR*03/29/2017 Cervical myelopathy (HCC) [G95.9] INVALID FOR*03/29/2017 Claustrophobia [F40.240] INVALID FOR* Ptosis of eyelid, bilateral [H02.403] INVALID FOR*03/29/2017 More... Lumbar spondylosis [M47.816] INVALID FOR* More... Preop testing [Z01.818] INVALID FOR* More... Anaphylaxis [T78.2XXA] INVALID FOR* Essential hypertension [I10] INVALID FOR* Peroneal tendinitis, left [M76.72] INVALID FOR* Prescriptions ordered this encounter Disp Refills Start End DOXAZOSIN 4 MG TABLET 30 t* 10/23/2017 Route: ORAL Sig: Take 1 tablet by mouth once daily. AMLODIPINE 10 MG TABLET 30 t* 10/23/2017 Route: ORAL Sig: Take 1 tablet by mouth once daily. Medications Discontinued During This Encounter doxazosin (CARDURA) 2 mg tablet 10/23/2017 Class: Historical Med Route: ORAL Sig: Take 2 mg by mouth once daily. Disc: Reason for discontinue is not on file. amLODIPine (NORVASC) 10 mg tablet 06/20/2017 10/23/2017 Class: Med Update Route: ORAL Sig: Take 0.5 tablets by mouth once daily. Disc: Reason for discontinue is not on file. Disposition: Return in about 6 months (around 04/25/2018). Follow-up and Disposition History Recorded Encounter Status:Closed by PILAR WARD MD on 10/23/17 URINALYSIS Collected: 10/23/2017 Status: F Source: [place] 8:21 AM [facility] REPOSITORY TYPE CODE TESTS RESULT OUT OF REFERENCE UNITS RANGE LAB UCOL Yellow Color Yellow LAB [facility] Clear Clarity Clear LAB UGLUC Negative mg/dL Glucose, Urine Negative LAB UBIL Negative Bilirubin, Urine Negative LAB UKET Negative Ketones, Urine Negative LAB USPG 1.005-1.030 Specific [place], Ur 1.012 LAB UHGB Negative Hemoglobin/Blood, Negative Ur LAB UPH 4.5-8.0 pH 6.0 LAB UPROT Negative mg/dL Protein, Urine Negative LAB UUROB Normal Urobilinogen Normal LAB UNITR Negative Nitrites Negative LAB ULKEST Negative Leukest Negative LAB UCOM Comments SEE COMMENT Result Comment: Microscopic not warranted LAB UMCOM Urine SEE Compa Comment COMMENT Result Comment: N/A Performed By: #### UA #### [facility] [address] [place], [place] [address] URINALYSIS, ROUTINE Collected: 10/19/2017 Status: F Source: [place] (DIPSTICK) 1:22 PM [facility] REPOSITORY Order Comment: How was Urine Obtained? CLEAN CATCH TYPE CODE TESTS RESULT OUT OF RANGE REFERENCE UNITS LAB L400.3000 Yellow COLOR Normal Straw LAB L400.3050 Clear Normal CLARITY Clear LAB L400.3200 Normal mg/dl Normal GLUCOSE, UR Normal LAB L400.3300 Negative mg/dL Normal BILIRUBIN URINE Negative LAB L400.3400 Negative mg/dl Normal KETONE UR Negative LAB L400.3465 1.002-1.030 Normal SP.GR. DIPSTX 1.005 LAB L400.3550 5.0 - 8.0 pH UR Normal 6.5 LAB L400.3600 Negative mg/dl PROT Normal DIPSTX Negative LAB L400.3700 Normal mg/dl Normal UROBILI Normal LAB L400.3750 Negative Normal NITRITE UR Negative LAB L400.3780 Negative /ul Normal OCCULT BLOOD-UR Negative LAB L400.3800 Negative /ul LEUK Normal ESTERASE Negative Performed By: #### L400.2010 #### [facility] [address] [place], [place], [address] CBC W/DIFF, AUTOMATED Collected: 10/19/2017 Status: F Source: [place] 1:22 PM [facility] REPOSITORY TYPE CODE TESTS RESULT OUT OF RANGE REFERENCE UNITS LAB L100.1000 4.4-11.0 K/mm3 Normal WBC 7.2 LAB L100.1200 4.2-5.4 M/mm3 Normal RBC 4.96 LAB L100.1300 12.0-15.0 g/dl Normal HGB 14.3 LAB L100.1400 37-47 % Normal HCT 44.8 LAB L100.1500 81-99 fL Normal MCV 90.3 LAB L100.1600 27.0-32.0 pg Normal MCH 28.8 LAB L100.1700 32-36 g/gl Low MCHC 31.9 LAB L100.1810 11.6-14.6 % Normal RDW CV 14.2 LAB L100.1820 35.1-43.9 fl High RDW SD 46.4 LAB L100.1900 150-450 K/mm3 Normal PLT 243 LAB L100.2000 6.2-12.0 fl Normal MPV 11.0 LAB L100.2100 47-70 % High NEUT% 72.2 LAB L100.2200 19-41 % Low LY% 18.4 LAB L100.2300 0-10 % Normal MONO% 6.2 LAB L100.2400 0-5 % Normal EO% 2.1 LAB L100.2500 0-1 % Normal BASO% 0.8 LAB L100.2550 0.0-0.9 % Normal IM GRAN % 0.300 Result Comment: IG% - Immature Granulocytes (promyelocytes, myelocytes and metamyelocytes) > 1% indicates that a LEFT SHIFT is Present. LAB L100.2620 2.0-7.7 X10 3/uL Normal Absolute Neut 5.2 LAB L100.2720 0.83-4.51 X10 3/ul Normal Absolute Lymph 1.33 Performed By: #### L100.0100 #### [facility] [address] [place], [place], [address] BUN Collected: 10/19/2017 Status: F Source: [place] 1:22 PM [facility] REPOSITORY TYPE CODE TESTS RESULT OUT OF RANGE REFERENCE UNITS LAB L501.1000 7-18 mg/dL Normal BUN 18 Performed By: #### L501.1000, L501.1105, L501.1800, L501.4100, L501.4405 #### [facility] [address] [place], [address] SERUM CREATININE AND Collected: 10/19/2017 Status: F Source: [place] GFR 1:22 PM [facility] REPOSITORY TYPE CODE TESTS RESULT OUT OF RANGE REFERENCE UNITS LAB L501.1100 0.55-1.02 mg/dL High 1.07 CREAT,SERUM Result Comment: The validity of the calculated GFR AND GFRAA in patients over 70 years has not been determined. Clinical correlation is essential. LAB L501.1110 >60 mL/min Low EST GFR 55 Result Comment: Non- GFR Calc LAB L501.1115 >60 mL/min Normal EST GFR - AA 67 Result Comment: GFR Calc Performed By: #### L501.1000, L501.1105, L501.1800, L501.4100, L501.4405 #### [facility] [address] [place], [address] ALBUMIN, SERUM Collected: 10/19/2017 Status: F Source: [place] 1:22 PM [facility] REPOSITORY TYPE CODE TESTS RESULT OUT OF RANGE REFERENCE UNITS LAB L501.1800 3.2-5.0 g/dL Normal ALB 3.8 Performed By: #### L501.1000, L501.1105, L501.1800, L501.4100, L501.4405 #### [facility] [address] [place], [address] AST(SGOT) Collected: 10/19/2017 Status: F Source: [place] 1:22 PM [facility] REPOSITORY TYPE CODE TESTS RESULT OUT OF RANGE REFERENCE UNITS LAB L501.4100 15-37 U/L Normal AST 22 Performed By: #### L501.1000, L501.1105, L501.1800, L501.4100, L501.4405 #### [facility] [address] [place], [address] ALANINE AMINOTRANSFERAS Collected: 10/19/2017 Status: F Source: [place] (SGPT) 1:22 PM [facility] REPOSITORY TYPE CODE TESTS RESULT OUT OF RANGE REFERENCE UNITS LAB L501.4405 13-56 U/L Normal ALT 36 Performed By: #### L501.1000, L501.1105, L501.1800, L501.4100, L501.4405 #### [facility] [place], [address] CYCLOSPORINE, BLOOD Collected: 10/19/2017 Status: F Source: [place] 1:22 PM [facility] REPOSITORY TYPE CODE TESTS RESULT OUT OF REFERENCE UNITS RANGE LAB L3400.3100 Cyclosporine Normal Result Comment: None Detected Therapeutic: Renal Transplant 100 - 250 Liver Transplant 100 - 400 Cardiac Transplant 100 - 400 Bone Marrow 200 - 300 Detection Limit = 25 Assay performed by Liquid Chromatography Tandem Mass Spectrometry (LC-MS/MS) If preferred testing methodology for Cyclosporine is Liquid Chromatography Tandem Mass Spectrometry (LC-MS/MS) please use test code [id number]. For testing performed by Immunoassay, please use test code [id number]. Performed at: - [facility] [id number] [employer] Director: Mik Alonso MD, Phone: [phone] Performed By: #### L3400.3090 #### [facility] (refer to report for specific site) refer to report for address and phone number CBC W/DIFF, AUTOMATED Collected: 10/12/2017 Status: F Source: [place] 1:33 PM [facility] REPOSITORY TYPE CODE TESTS RESULT OUT OF RANGE REFERENCE UNITS LAB L100.1000 4.4-11.0 K/mm3 Normal WBC 8.0 LAB L100.1200 4.2-5.4 M/mm3 Normal RBC 4.84 LAB L100.1300 12.0-15.0 g/dl Normal HGB 14.1 LAB L100.1400 37-47 % Normal HCT 43.3 LAB L100.1500 81-99 fL Normal MCV 89.5 LAB L100.1600 27.0-32.0 pg Normal MCH 29.1 LAB L100.1700 32-36 g/gl Normal MCHC 32.6 LAB L100.1810 11.6-14.6 % Normal RDW CV 14.2 LAB L100.1820 35.1-43.9 fl High RDW SD 46.3 LAB L100.1900 150-450 K/mm3 Normal PLT 211 LAB L100.2000 6.2-12.0 fl Normal MPV 10.7 LAB L100.2100 47-70 % Normal NEUT% 67.5 LAB L100.2200 19-41 % Normal LY% 20.5 LAB L100.2300 0-10 % Normal MONO% 10.0 LAB L100.2400 0-5 % Normal EO% 1.3 LAB L100.2500 0-1 % Normal BASO% 0.4 LAB L100.2550 0.0-0.9 % Normal IM GRAN % 0.300 Result Comment: IG% - Immature Granulocytes (promyelocytes, myelocytes and metamyelocytes) > 1% indicates that a LEFT SHIFT is Present. LAB L100.2620 2.0-7.7 X10 3/uL Normal Absolute Neut 5.4 LAB L100.2720 0.83-4.51 X10 3/ul Normal Absolute Lymph 1.64 Performed By: #### L100.0100 #### [facility] [address] [facility] [place], [place], [address] BUN Collected: 10/12/2017 Status: F Source: [place] 1:33 PM [facility] REPOSITORY TYPE CODE TESTS RESULT OUT OF RANGE REFERENCE UNITS LAB L501.1000 7-18 mg/dL Normal BUN 17 Performed By: #### L501.1000, L501.1105, L501.1800, L501.4100, L501.4405 #### [facility] [address] [facility] [place], [address] SERUM CREATININE AND Collected: 10/12/2017 Status: F Source: [place] GFR 1:33 PM [facility] REPOSITORY TYPE CODE TESTS RESULT OUT OF RANGE REFERENCE UNITS LAB L501.1100 0.55-1.02 mg/dL High 1.18 CREAT,SERUM Result Comment: The validity of the calculated GFR AND GFRAA in patients over 70 years has not been determined. Clinical correlation is essential. LAB L501.1110 >60 mL/min Low EST GFR 49 Result Comment: Non- GFR Calc LAB L501.1115 >60 mL/min Normal EST GFR - AA 60 Result Comment: GFR Calc Performed By: #### L501.1000, L501.1105, L501.1800, L501.4100, L501.4405 #### [facility] [address] [place], [address] ALBUMIN, SERUM Collected: 10/12/2017 Status: F Source: [place] 1:33 PM [facility] REPOSITORY TYPE CODE TESTS RESULT OUT OF RANGE REFERENCE UNITS LAB L501.1800 3.2-5.0 g/dL Normal ALB 3.9 Performed By: #### L501.1000, L501.1105, L501.1800, L501.4100, L501.4405 #### [facility] [address] [place], [place], [address] AST(SGOT) Collected: 10/12/2017 Status: F Source: [place] 1:33 PM [facility] REPOSITORY TYPE CODE TESTS RESULT OUT OF RANGE REFERENCE UNITS LAB L501.4100 15-37 U/L Normal AST 19 Performed By: #### L501.1000, L501.1105, L501.1800, L501.4100, L501.4405 #### [facility] [address] [place], [address] ALANINE AMINOTRANSFERAS Collected: 10/12/2017 Status: F Source: [place] (SGPT) 1:33 PM [facility] REPOSITORY TYPE CODE TESTS RESULT OUT OF RANGE REFERENCE UNITS LAB L501.4405 13-56 U/L Normal ALT 48 Performed By: #### L501.1000, L501.1105, L501.1800, L501.4100, L501.4405 #### [facility] [address] [place], [place], [address] URINALYSIS, ROUTINE Collected: 10/12/2017 Status: F Source: [place] (DIPSTICK) 1:33 PM [facility] REPOSITORY Order Comment: How was Urine Obtained? CLEAN CATCH TYPE CODE TESTS RESULT OUT OF RANGE REFERENCE UNITS LAB L400.3000 Yellow COLOR Normal Straw LAB L400.3050 Clear Normal CLARITY Clear LAB L400.3200 Normal mg/dl Normal GLUCOSE, UR Normal LAB L400.3300 Negative mg/dL Normal BILIRUBIN URINE Negative LAB L400.3400 Negative mg/dl Normal KETONE UR Negative LAB L400.3465 1.002-1.030 Normal SP.GR. DIPSTX 1.005 LAB L400.3550 5.0 - 8.0 pH UR Normal 7.0 LAB L400.3600 Negative mg/dl PROT Normal DIPSTX Negative LAB L400.3700 Normal mg/dl Normal UROBILI Normal LAB L400.3750 Negative Normal NITRITE UR Negative LAB L400.3780 Negative /ul Normal OCCULT BLOOD-UR Negative LAB L400.3800 Negative /ul High LEUK ESTERASE 100 Performed By: #### L400.2010 #### [facility] [address] [place], [address] CYCLOSPORINE, BLOOD Collected: 10/12/2017 Status: F Source: [place] 1:33 PM [facility] REPOSITORY TYPE CODE TESTS RESULT OUT OF REFERENCE UNITS RANGE LAB L3400.3100 Cyclosporine Normal Result Comment: None Detected Therapeutic: Renal Transplant 100 - 250 Liver Transplant 100 - 400 Cardiac Transplant 100 - 400 Bone Marrow 200 - 300 Detection Limit = 25 Assay performed by Liquid Chromatography Tandem Mass Spectrometry (LC-MS/MS) If preferred testing methodology for Cyclosporine is Liquid Chromatography Tandem Mass Spectrometry (LC-MS/MS) please use test code 785910. For testing performed by Immunoassay, please use test code [id number]. Performed at: [address] [id number] [employer] Director: Mik Alonso MD, Phone: [phone] Performed By: #### L3400.3090 #### [facility] (refer to report for specific site) refer to report for address and phone number CNOV Observed: 10/09/2017 Status: COMPLETED Source: [place] 9:00 AM [facility] REPOSITORY Office Visit (PULMWS) RALPH JOSHI ([id number]) 1955 F Date Time Provider Department 10/09/17 9:00 AM JOVANNA SPENCE During your visit today, we recorded the following information about you: Pulse Respiration Blood pressure Weight 88/minute 18/minute 122/76 95.7 kg Jovanna Spence PA-C 10/09/2017 9:09 AM Signed [facility], 10/09/17: INTERVAL HISTORY: The patient is here for follow up of asthma; the last Pulmonary Clinic visit was 07/06/17. The patient admits to compliance with prescribed maintenance Rx. There have been no ED visit(s) for the management of asthma exacerbation. No hospitalization(s) for management of asthma exacerbation. Has used no prednisone for the management of exacerbation. Four times daily cromolyn nebulizer, twice daily budesonide added. Using rescue bronchodilator more frequently with URI. No nocturnal awakenings per month with asthma symptoms. Increased cough since URI. Clear sputum. No hemoptysis at this time, previous episode when symptoms first started. No pleuritic chest pain. Variable wheezing. Exertional dyspnea, especially with being outside with the high pollen count. Wears mask when outside. Unable to wear CPAP mask secondary to allergies. Reports daytime sleepiness. Sleeps on the couch most nights secondary to keeping spouse awake with snoring. Patient reports that she attempted to obtain a mask that she could tolerate from [facility] without any success. No disruption in taste or voice associated with use of inhaled corticosteroid. No tremor, palpitations, or muscle cramping associated with bronchodilator inhalation. PMH: Updated with patient today. FAMH: Updated with patient today. SOCH: Updated with patient today. ROS: General: Generally feels good. Appetite good. Weight stable. Eyes, Ears, nose, throat: Post nasal drip, rhinorrhea. No purulent nasal discharge, epistaxis, hoarseness. Vision stable. Cardiac: No angina, edema, orthopnea. GI: No heartburn, dysphagia, diarrhea. 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 Musculoskeletal: No pain. Neuro: No headache, focal weakness, tremor. Skin: No rash. Otherwise negative. Immunization History Administered Date(s) Administered Influenza Vaccine, Split-Non Spec 2006 02/20/2008 01/15/2009 01/19/2010 01/22/2011 03/15/2012 Pneumovax 06/27/2008 Deferred Date(s) Deferred Tdap (Age 7+) 06/19/2014 Allergies were verified and updated, and medications were reconciled with the patient at this visit. PHYSICAL EXAMINATION: BP 122/76 Pulse 88 Resp 18 Wt 211 lb (95.7kg) SpO2 96% LMP 08/07/2013 Gen: No acute distress. Cooperative with examination. ENT: Nares clear. Oral hygeine good. Pharynx clear. Resp: No stridor, accessory respiratory muscle use. No crackles, wheezes. CV: Regular rythm. Heart tones normal. Radial pulses normal. Abd: Non distended. MSK: No kyphoscoliosis. Ext: Warm and well perfused. No cyanosis. Skin: No rash, eczema, urticaria. Neuro: Mental status normal. No tremor. DATA REVIEW: Exhaled nitric oxide (Martha), 07/06/17: 34 04/07/17: 37?(normal <?25). ? DATE: 04/07/17 11/01/16 04/30/15 08/27/14 FVC 2.39 (76 % pred) 2.65?(80?% pred) 2.50?(78?% pred) 2.59?(77?% pred) FEV1 1.96 (80 % pred) 2.03?(79?% pred) 1.97?(79?% pred) 2.05?(78?% pred) FEV1/FVC 0.82 0.77 0.79 0.79 ? IMPRESSION and RECOMMENDATIONS: Asthma, severe persistent, symptomatically well controlled. 1. I reviewed the pathophysiology of asthma, NIH guidelines for evaluation and management, and mechanisms of action and side effects of medical therapy (ICS, bronchodilators) with the patient. 2. Changes in maintenance Rx: - None. 4. Continue nebulizer or Albuterol HFA inhaler, 2 inhalations 10?15 minutes prior to activities associated with shortness of breath, and as needed for rescue relief of shortness of breath or wheezing, up to 4 times daily. 5. Avoid triggers as able. Continue to wear mask as needed when exposed to allergens. 6. Re-assess in 3 months, sooner if needed. THONY. 1. It is imperative that you wear your CPAP. 2. Referral to [facility] for mask fitting. I addressed the questions of the patient, and she expressed understanding and acceptance of my answers. Jovanna Spence PA-C [facility] [place] [address] [place] [phone] Jovanna Spence PA-C 10/09/2017 9:09 AM Signed Asthma, severe persistent, symptomatically well controlled. 1. I reviewed the pathophysiology of asthma, NIH guidelines for evaluation and management, and mechanisms of action and side effects of medical therapy (ICS, bronchodilators) with the patient. 2. Changes in maintenance Rx: - None. 4. Continue nebulizer or Albuterol HFA inhaler, 2 inhalations 10?15 minutes prior to activities associated with shortness of breath, and as needed for rescue relief of shortness of breath or wheezing, up to 4 times daily. 5. Avoid triggers as able. Continue to wear mask as needed when exposed to allergens. 6. Re-assess in 3 months, sooner if needed. THONY. 1. It is imperative that you wear your CPAP. 2. Referral to [facility] for mask fitting. Referring Provider: JOVANNA SPENCE [[id number]] Allergies As of Date: 10/09/2017 Noted Allergy Reaction AVOCADO 09/10/2014 10 - Anaphylaxis BANANA 09/10/2014 10 - Anaphylaxis CARBINOXAMINE 09/17/2012 10 - Anaphylaxis YOSELIN SEED 08/28/2013 10 - Anaphylaxis CIPROFLOXACIN 04/11/2014 10 - Anaphylaxis CODEINE 01/12/2012 10 - Anaphylaxis CONTRAST DYE 05/17/2013 10 - Anaphylaxis Comments: To MRI and CT FISH 09/07/2014 10 - Anaphylaxis HYCODAN (HYDROCODONE-HOMATROPINE) 09/08/2011 10 - Anaphylaxis Comments: Face and throat swelling LATEX 01/21/2014 10 - Anaphylaxis IMTIAZ-SYNEPHRINE (PHENYLEPHRINE HCL)09/04/2014 10 - Anaphylaxis Comments: 10% eye drop NICKEL 01/07/2014 2 - Rash 4 - Hives 10 - Anaphylaxis NSAIDS (NON-STEROIDAL ANTI-INFLAM*08/16/2010 14 - Other: See Comments Comments: Kidney function drops; reversible kidney damage. OXYCODONE 08/28/2013 10 - Anaphylaxis PERIACTIN (CYPROHEPTADINE) 09/17/2012 10 - Anaphylaxis PNEUMOCOCCAL VACCINE 10/31/2014 10 - Anaphylaxis SHELLFISH 09/07/2014 10 - Anaphylaxis ZANTAC (RANITIDINE) 09/17/2012 10 - Anaphylaxis ATIVAN (LORAZEPAM) 08/28/2013 14 - Other: See Comments Comments: hallucination BEEF CONTAINING PRODUCTS 09/10/2014 2 - Rash CORN 05/03/2011 14 - Other: See Comments Comments: Feels like an asthma attack. EGGS (EGG) 03/08/2011 2 - Rash 11 - Vomiting EKG LEADS (ADHESIVE) 10/22/2012 2 - Rash Comments: Localized,only under the leads environmental [Other] 06/26/2007 14 - Other: See Comments Comments: Nasal congestion, brings on an asthma attack. INFLUENZA VIRUS VACCINES 10/22/2012 12 - Shortness of Breath LISINOPRIL 04/20/2004 3 - Cough MILK 03/08/2011 2 - Rash 11 - Vomiting MOMETASONE 04/05/2017 10 - Anaphylaxis Comments: Per Dr. Salas she tolerates formoterol (on Breo at home) but is allergic to mometasone. Okayed by him to update. surgical tape [Other] 11/10/2009 2 - Rash 7 - Swelling Comments: Oral rash, swelling of eyes, asthma attacks; per pateint report. XOLAIR (OMALIZUMAB) 04/19/2012 12 - Shortness of Breath Date Reviewed: 10/09/2017 Reviewed by: Jovanna Spence - Fully Assessed Reason for Visit: Established Patient [175] Cmt: 3 month follow up asthma Primary Visit Diagnosis:THONY (obstructive sleep apnea) [G47.33] Other Visit Diagnosis:Moderate persistent asthma without complication [J45.40] Order(s):SPIROMETRY BASELINE ONLY [8202489] Order #: [id number] FUTURE NITRIC OXIDE, EXHALED [3182823] Order #: [id number] FUTURE COMPOUNDED PRESCRIPTIONPlease fit for CPAP mask. Patient with previous allergic/anaphylaxis reaction to mask. DME: [facility].Disp: 1 EachRfl: 0 Prescriptions as of 10/09/2017 Sig: CROMOLYN 20 MG/2 ML SOLUTION * Use 20 mg via nebulizer three* EPINEPHRINE 0.3 MG/0.3 ML INJ* Inject 0.3 mL intramuscularly* DIPHENHYDRAMINE 25 MG TABLET Take 1 tablet by mouth every * PREGABALIN 150 MG CAPSULE Take 1 capsule by mouth twice* PREGABALIN 150 MG CAPSULE Take 1 capsule by mouth twice* ATORVASTATIN 20 MG TABLET One tab on MWF only SPIRONOLACTONE 50 MG TABLET Take 1 tablet by mouth twice * LANSOPRAZOLE 30 MG CAPSULE,DE* TAKE 1 CAPSULE TWICE A DAY BUMETANIDE 0.5 MG TABLET Take 1 tablet by mouth once d* NITROGLYCERIN 0.4 MG SUBLINGU* DISSOLVE 1 TABLET UNDER THE T* ALBUTEROL SULFATE HFA 90 MCG/* Inhale 2 Puffs as instructed * FLUTICASONE 100 MCG-VILANTERO* Inhale 1 Inhalation as instru* Patient taking differently: Inhale 2 Inhalation as instru* LEVALBUTEROL 1.25 MG/3 ML BRENDA* Use 1 Ampule via nebulizer ev* FLUTICASONE 50 MCG/ACTUATION * 1-2 sprays each side qd AZELASTINE 0.15 % (205.5 MCG)* Use 1 Wilberforce in each nostril t* COMPOUNDED PRESCRIPTION Nocturnal oximetry on room ai* CHOLESTYRAMINE (WITH SUGAR) 4* Take 1 scoop by mouth once da* ATENOLOL 25 MG TABLET Take 1 tablet by mouth once d* ERGOCALCIFEROL (VITAMIN D2) 5* Take 1 capsule by mouth once * Patient taking differently: Take 50,000 Units by mouth on* TURMERIC ROOT EXTRACT ORAL Take 1 tablet by mouth twice * CRISABOROLE 2 % TOPICAL OINTM* Apply to the hands twice daily COMPOUNDED PRESCRIPTION Please provide patient with n* CETIRIZINE 10 MG TABLET Take 10 mg by mouth once mary ellen* PIMECROLIMUS 1 % TOPICAL CREAM Apply twice daily to the hands ONDANSETRON HCL 4 MG TABLET Take 1 tablet by mouth every * LACTOBACILLUS RHAMNOSUS GG 10* Take 1 capsule by mouth twice* AMOXICILLIN 250 MG CAPSULE Take 250 mg by mouth once liam* ZAFIRLUKAST 20 MG TABLET Take 1 tablet by mouth twice * DOXAZOSIN 2 MG TABLET Take 2 mg by mouth once daily. CYCLOSPORINE MODIFIED 50 MG C* Take 50 mg by mouth twice liam* ASCORBIC ACID (VITAMIN C) 500* Take 1 tablet by mouth once d* COMPOUNDED PRESCRIPTION Please fit for CPAP mask. Pat* BUDESONIDE 0.5 MG/2 ML SUSPEN* Use 1 Ampule via nebulizer tw* AMLODIPINE 10 MG TABLET Take 0.5 tablets by mouth onc* CYANOCOBALAMIN (VIT B-12) 1,0* Take 1 tablet by mouth once d* BENZONATATE 200 MG CAPSULE Take 200 mg by mouth three ti* Problem List As Of Date 10/09/2017 Noted Resolved JOINT PAIN-ANKLE [M25.579] INVALID FOR*03/20/2014 Edema [R60.9] INVALID FOR*03/28/2016 Priority: I Adrenal nodule (HCC) [E27.9] INVALID FOR* More... Diarrhea [R19.7] INVALID FOR*10/15/2013 Excessive or frequent menstruation [N92.0] INVALID FOR*07/14/2011 Shortness of breath [R06.02] INVALID FOR*10/15/2013 Palpitations [R00.2] INVALID FOR*03/20/2014 Tachycardia, unspecified [R00.0] INVALID FOR*10/15/2013 More... Open wound site NOS [T14.8XXA] INVALID FOR*07/16/2011 Abdominal pain, right upper quadrant [R10.11] INVALID FOR*07/14/2011 More... Acute gastritis without mention of hemorrhage [*INVALID FOR*10/15/2013 Hematuria [599.7] INVALID FOR*07/14/2011 URGE INCONTINENCE [N39.41] INVALID FOR* FEMALE STRESS INCONTINENCE [N39.3] INVALID FOR* Scar, hypertrophic [L91.0] INVALID FOR*10/15/2013 Ovarian cyst [N83.209] INVALID FOR*07/06/2010 Cyst INVALID FOR*10/15/2013 Other specified pre-operative examination [Z01.*INVALID FOR*07/16/2011 Hirsutism [L68.0] INVALID FOR* Dysphagia [R13.10] INVALID FOR*03/20/2014 GERD (gastroesophageal reflux disease) [K21.9] INVALID FOR* Priority: D More... 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 Obesity (BMI 30.0-34.9) [E66.9] INVALID FOR* More... More... More... More... Idiopathic anaphylaxis [T78.2XXA] INVALID FOR* Priority: A More... Urticaria, idiopathic [L50.1] INVALID FOR*03/28/2016 More... Hyperlipidemia LDL goal <100 [E78.5] INVALID FOR* Impaired fasting glucose [R73.01] INVALID FOR* Recurrent chest pain [R07.9, G89.29] INVALID FOR*12/09/2014 Multinodular goiter [E04.2] INVALID FOR* More... CKD (chronic kidney disease) stage 3, GFR 30-59*INVALID FOR* Pain in joint, ankle and foot [M25.579] INVALID FOR*12/09/2014 More... More... Steroid-induced hyperglycemia [R73.9, T38.0X5A] INVALID FOR*03/28/2016 Priority: C Moderate persistent asthma without complication*INVALID FOR* Ulcerative colitis without complications (HCC) *INVALID FOR* Anaphylaxis [T78.2XXA] INVALID FOR*03/26/2015 More... Neck pain, bilateral [M54.2] INVALID FOR*03/28/2016 Essential hypertension with goal blood pressure*INVALID FOR*03/28/2016 Chronic nausea [R11.0] INVALID FOR* Lumbar radiculitis [M54.16] INVALID FOR*03/28/2016 Lumbar stenosis [M48.061] INVALID FOR*03/28/2016 Acquired spondylolisthesis [M43.10] INVALID FOR*03/28/2016 Cervical radiculitis [M54.12] INVALID FOR*03/28/2016 Cervical spondylosis with radiculopathy [M47.22]INVALID FOR*03/29/2017 Shoulder impingement [M75.40] INVALID FOR*03/28/2016 Anaphylaxis [T78.2XXA] INVALID FOR*03/28/2016 Tendonitis, tibialis [M76.829] INVALID FOR*05/09/2016 Lumbar stenosis [M48.061] INVALID FOR* Cervical radiculitis [M54.12] INVALID FOR*03/29/2017 Cervical herniated disc [M50.20] INVALID FOR*03/29/2017 Cervical stenosis of spine [M48.02] INVALID FOR* Cervical spondylosis with myelopathy [M47.12] INVALID FOR*03/29/2017 Cervical myelopathy (HCC) [G95.9] INVALID FOR*03/29/2017 Claustrophobia [F40.240] INVALID FOR* Ptosis of eyelid, bilateral [H02.403] INVALID FOR*03/29/2017 More... Lumbar spondylosis [M47.816] INVALID FOR* More... Preop testing [Z01.818] INVALID FOR* More... Anaphylaxis [T78.2XXA] INVALID FOR* Essential hypertension [I10] INVALID FOR* Peroneal tendinitis, left [M76.72] INVALID FOR* Other instructions from your clinician: Asthma, severe persistent, symptomatically well controlled. 1. I reviewed the pathophysiology of asthma, NIH guidelines for evaluation and management, and mechanisms of action and side effects of medical therapy (ICS, bronchodilators) with the patient. 2. Changes in maintenance Rx: - None. 4. Continue nebulizer or Albuterol HFA inhaler, 2 inhalations 10?15 minutes prior to activities associated with shortness of breath, and as needed for rescue relief of shortness of breath or wheezing, up to 4 times daily. 5. Avoid triggers as able. Continue to wear mask as needed when exposed to allergens. 6. Re-assess in 3 months, sooner if needed. THONY. 1. It is imperative that you wear your CPAP. 2. Referral to [facility] for mask fitting. Prescriptions ordered this encounter Disp Refills Start End COMPOUNDED PRESCRIPTION 1 Ea* 0 10/09/2017 Class: Print RX Sig: Please fit for CPAP mask. Patient with previous allergic/anaphylaxis reaction to mask. DME: [facility]. Disposition: Return in about 3 months (around 01/09/2018). Follow-up and Disposition History Recorded Encounter Status:Closed by JOVANNA SPENCE on 10/09/17 PROGRESS Observed: 10/09/2017 Status: COMPLETED Source: [place] 8:47 AM [facility] REPOSITORY HNO ID: [id number] Author: Jovanna Spence Service: (none) Author Type: Physician Vegetable [employer] Manager Type: Progress Notes Filed: 10/09/2017 9:09 AM Note Text: [facility], 10/09/17: INTERVAL HISTORY: The patient is here for follow up of asthma; the last Pulmonary Clinic visit was 07/06/17. The patient admits to compliance with prescribed maintenance Rx. There have been no ED visit(s) for the management of asthma exacerbation. No hospitalization(s) for management of asthma exacerbation. Has used no prednisone for the management of exacerbation. Four times daily cromolyn nebulizer, twice daily budesonide added. Using rescue bronchodilator more frequently with URI. No nocturnal awakenings per month with asthma symptoms. Increased cough since URI. Clear sputum. No hemoptysis at this time, previous episode when symptoms first started. No pleuritic chest pain. Variable wheezing. Exertional dyspnea, especially with being outside with the high pollen count. Wears mask when outside. Unable to wear CPAP mask secondary to allergies. Reports daytime sleepiness. Sleeps on the couch most nights secondary to keeping spouse awake with snoring. Patient reports that she attempted to obtain a mask that she could tolerate from [employer] without any success. No disruption in taste or voice associated with use of inhaled corticosteroid. No tremor, palpitations, or muscle cramping associated with bronchodilator inhalation. PMH: Updated with patient today. FAMH: Updated with patient today. SOCH: Updated with patient today. ROS: General: Generally feels good. Appetite good. Weight stable. Eyes, Ears, nose, throat: Post nasal drip, rhinorrhea. No purulent nasal discharge, epistaxis, hoarseness. Vision stable. Cardiac: No angina, edema, orthopnea. GI: No heartburn, dysphagia, diarrhea. 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 Musculoskeletal: No pain. Neuro: No headache, focal weakness, tremor. Skin: No rash. Otherwise negative. Immunization History Administered Date(s) Administered Influenza Vaccine, Split-Non Spec 2006 02/20/2008 01/15/2009 01/19/2010 01/22/2011 03/15/2012 Pneumovax 06/27/2008 Deferred Date(s) Deferred Tdap (Age 7+) 06/19/2014 Allergies were verified and updated, and medications were reconciled with the patient at this visit. PHYSICAL EXAMINATION: BP 122/76 Pulse 88 Resp 18 Wt 211 lb (95.7kg) SpO2 96% LMP 08/07/2013 Gen: No acute distress. Cooperative with examination. ENT: Nares clear. Oral hygeine good. Pharynx clear. Resp: No stridor, accessory respiratory muscle use. No crackles, wheezes. CV: Regular rythm. Heart tones normal. Radial pulses normal. Abd: Non distended. MSK: No kyphoscoliosis. Ext: Warm and well perfused. No cyanosis. Skin: No rash, eczema, urticaria. Neuro: Mental status normal. No tremor. DATA REVIEW: Exhaled nitric oxide (Martha), 07/06/17: 34 04/07/17: 37?(normal <?25). ? DATE: 04/07/17 11/01/16 04/30/15 08/27/14 FVC 2.39 (76 % pred) 2.65?(80?% pred) 2.50?(78?% pred) 2.59?(77?% pred) FEV1 1.96 (80 % pred) 2.03?(79?% pred) 1.97?(79?% pred) 2.05?(78?% pred) FEV1/FVC 0.82 0.77 0.79 0.79 ? IMPRESSION and RECOMMENDATIONS: Asthma, severe persistent, symptomatically well controlled. 1. I reviewed the pathophysiology of asthma, NIH guidelines for evaluation and management, and mechanisms of action and side effects of medical therapy (ICS, bronchodilators) with the patient. 2. Changes in maintenance Rx: - None. 4. Continue nebulizer or Albuterol HFA inhaler, 2 inhalations 10?15 minutes prior to activities associated with shortness of breath, and as needed for rescue relief of shortness of breath or wheezing, up to 4 times daily. 5. Avoid triggers as able. Continue to wear mask as needed when exposed to allergens. 6. Re-assess in 3 months, sooner if needed. THONY. 1. It is imperative that you wear your CPAP. 2. Referral to [facility] for mask fitting. I addressed the questions of the patient, and she expressed understanding and acceptance of my answers. Jovanna Spence PA-C [facility] [place] [address] [place] [address] URINALYSIS, COMPLETE Collected: 10/05/2017 Status: F Source: [place] 9:58 AM [facility] REPOSITORY Order Comment: SEND RESULTS TO ALSO. How was Urine Obtained? Urine, Random TYPE CODE TESTS RESULT OUT OF RANGE REFERENCE UNITS LAB L400.3000 Yellow COLOR Normal Yellow LAB L400.3050 Clear Normal CLARITY Clear LAB L400.3200 Normal mg/dl Normal GLUCOSE, UR Normal LAB L400.3300 Negative mg/dL Normal BILIRUBIN URINE Negative LAB L400.3400 Negative mg/dl Normal KETONE UR Negative LAB L400.3465 1.002-1.030 Normal SP.GR. DIPSTX 1.015 LAB L400.3550 5.0 - 8.0 pH UR Normal 6.0 LAB L400.3600 Negative mg/dl High PROT 15 DIPSTX LAB L400.3700 Normal mg/dl Normal UROBILI Normal LAB L400.3750 Negative Normal NITRITE UR Negative LAB L400.3780 Negative /ul High 10 OCCULT BLOOD-UR LAB L400.3800 Negative /ul High LEUK 25 ESTERASE LAB L400.4050 0-5 /hpf WBC Normal 0-5 SEEN LAB L400.4100 0-5 /hpf 0 Normal RBC-UA SEEN LAB L400.4150 5-10 /hpf SQUAM Normal EPI 5-10 SEEN LAB L400.4300 None Seen /hpf Normal BACTERIA RARE LAB L400.4350 <or=2+ /hpf 0 Normal MUCUS, URINE SEEN Performed By: #### L400.0001 #### [facility] [address] [place], [address] CBC W/DIFF, AUTOMATED Collected: 10/05/2017 Status: F Source: [place] 9:58 AM [facility] REPOSITORY Order Comment: SEND RESULTS OF CBCD TO DR.FLAUTO ESCALANTE. TYPE CODE TESTS RESULT OUT OF RANGE REFERENCE UNITS LAB L100.1000 4.4-11.0 K/mm3 Normal WBC 5.9 LAB L100.1200 4.2-5.4 M/mm3 Normal RBC 4.72 LAB L100.1300 12.0-15.0 g/dl Normal HGB 14.1 LAB L100.1400 37-47 % Normal HCT 42.3 LAB L100.1500 81-99 fL Normal MCV 89.6 LAB L100.1600 27.0-32.0 pg Normal MCH 29.9 LAB L100.1700 32-36 g/gl Normal MCHC 33.3 LAB L100.1810 11.6-14.6 % Normal RDW CV 14.1 LAB L100.1820 35.1-43.9 fl High RDW SD 45.9 LAB L100.1900 150-450 K/mm3 Normal PLT 233 LAB L100.2000 6.2-12.0 fl Normal MPV 11.1 LAB L100.2100 47-70 % Normal NEUT% 68.0 LAB L100.2200 19-41 % Low LY% 18.3 LAB L100.2300 0-10 % Normal MONO% 9.0 LAB L100.2400 0-5 % Normal EO% 3.6 LAB L100.2500 0-1 % Normal BASO% 0.8 LAB L100.2550 0.0-0.9 % Normal IM GRAN % 0.300 Result Comment: IG% - Immature Granulocytes (promyelocytes, myelocytes and metamyelocytes) > 1% indicates that a LEFT SHIFT is Present. LAB L100.2620 2.0-7.7 X10 3/uL Normal Absolute Neut 4.0 LAB L100.2720 0.83-4.51 X10 3/ul Normal Absolute Lymph 1.08 Performed By: #### L100.0100 #### [facility] [address] [place], [place], [id number] MICROALBUMIN,RANDOM URINE Collected: Status: F Source: [place] 10/05/2017 9:58 AM [facility] REPOSITORY Order Comment: SEND RESULTS TO . TYPE CODE TESTS RESULT OUT OF RANGE REFERENCE UNITS LAB L502.0500 NO RANGE EST. mg/L Normal 52.5 MICROALBUMIN ,UR Performed By: #### L502.0500 #### [facility] [address] [place], [place], [id number] RENAL PROFILE Collected: 10/05/2017 Status: F Source: [place] 9:58 AM [facility] REPOSITORY Order Comment: SEND RESULTS OF URIC ACID AND RENAL TO . TYPE CODE TESTS RESULT OUT OF RANGE REFERENCE UNITS LAB L501.0100 74-106 mg/dL Normal GLU 89 Result Comment: Please note revised GLUCOSE reference range effective 2017. LAB L501.1000 7-18 mg/dL Normal BUN 14 LAB L501.1100 0.55-1.02 mg/dL High CREAT,SERUM 1.12 Result Comment: The validity of the calculated GFR AND GFRAA in patients over 70 years has not been determined. Clinical correlation is essential. LAB L501.1110 >60 mL/min Low EST GFR 53 Result Comment: Non- GFR Calc LAB L501.1115 >60 mL/min Normal EST GFR - AA 64 Result Comment: GFR Calc LAB L501.1300 10-20 RATIO Normal BUN/CRE 12.5 LAB L501.1800 3.2-5.0 g/dL Normal ALB 3.7 LAB L501.2200 8.5-10.1 mg/dL CA Normal 8.7 LAB L501.2300 2.5-4.9 mg/dL Normal PHOS 3.3 LAB L501.5300 136-145 mmol/L NA Normal 141 LAB L501.5600 3.5-5.1 mmol/L K Normal 3.6 LAB L501.5900 98-107 mmol/L High CL 110 LAB L501.6100 21.0-32.0 mmol/L Normal CO2 24.0 Performed By: #### L500.3600, L501.1400, L501.4100, L501.4405 #### [facility] [address] [facility] [place], [place], [id number] URIC ACID Collected: 10/05/2017 Status: F Source: [place] 9:58 AM [facility] REPOSITORY Order Comment: SEND RESULTS OF URIC ACID AND RENAL TO . TYPE CODE TESTS RESULT OUT OF RANGE REFERENCE UNITS LAB L501.1400 2.6-6.0 mg/dL High URIC 6.2 Result Comment: The drugs N-Acetylcysteine and Metamizole may falsely depress this assay. Performed By: #### L500.3600, L501.1400, L501.4100, L501.4405 #### [facility] [address] [place], [place], [address] AST(SGOT) Collected: 10/05/2017 Status: F Source: [place] 9:58 AM [facility] REPOSITORY Order Comment: SEND RESULTS OF URIC ACID AND RENAL TO . TYPE CODE TESTS RESULT OUT OF RANGE REFERENCE UNITS LAB L501.4100 15-37 U/L Normal AST 21 Performed By: #### L500.3600, L501.1400, L501.4100, L501.4405 #### [facility] [address] [place], [address] ALANINE AMINOTRANSFERAS Collected: 10/05/2017 Status: F Source: [place] (SGPT) 9:58 AM [facility] REPOSITORY Order Comment: SEND RESULTS OF URIC ACID AND RENAL TO . TYPE CODE TESTS RESULT OUT OF RANGE REFERENCE UNITS LAB L501.4405 13-56 U/L Normal ALT 49 Performed By: #### L500.3600, L501.1400, L501.4100, L501.4405 #### [facility] [address] [place], [address] PTHIN Collected: 10/05/2017 Status: F Source: [place] 9:58 AM [facility] REPOSITORY Order Comment: SEND RESULTS OF PTH TO . TYPE CODE TESTS RESULT OUT OF RANGE REFERENCE UNITS LAB L509.1000 18.4-80.1 pg/mL Normal PTHIN 50.4 Performed By: #### L509.1000 #### [facility] [address] [place], [address] VITAMIN D,25 HYDROXY Collected: 10/05/2017 Status: F Source: [place] 9:58 AM [facility] REPOSITORY Order Comment: SEND RESULTS OF VITD TO . TYPE CODE TESTS RESULT OUT OF RANGE REFERENCE UNITS LAB L506.1000 29.95-100.01 ng/mL Normal Vitamin D 56.9 25-OH Result Comment: Vitamin D 25(OH) Status Range Deficiency <20 ng/mL (50nmol/L) Insuffciency 20 - 30 ng/mL (50 - 75 nmol/L) Sufficiency 30 - 100 ng/mL (75 - 250 nmol/L) Toxicity >100 ng/mL (>250 nmol/L) Performed By: #### L506.1000 #### [facility] [address] [address] [place], [address] CYCLOSPORINE, BLOOD Collected: 10/05/2017 Status: F Source: [place] 9:58 AM [facility] REPOSITORY TYPE CODE TESTS RESULT OUT OF REFERENCE UNITS RANGE LAB L3400.3100 Cyclosporine Normal Result Comment: None Detected Therapeutic: Renal Transplant 100 - 250 Liver Transplant 100 - 400 Cardiac Transplant 100 - 400 Bone Marrow 200 - 300 Detection Limit = 25 Assay performed by Liquid Chromatography Tandem Mass Spectrometry (LC-MS/MS) If preferred testing methodology for Cyclosporine is Liquid Chromatography Tandem Mass Spectrometry (LC-MS/MS) please use test code [id number]. For testing performed by Immunoassay, please use test code [id number]. Performed at: - [facility] [id number] High [employer] Music Director: Mik Alonso MD, Phone: [phone] Performed By: #### [id number] #### [facility] (refer to report for specific site) refer to report for address and phone number US ANKLE LT Observed: 10/04/2017 Status: F Source: [place] 4:08 PM [facility] [facility] REPOSITORY * * *Final Report* * * DATE OF EXAM: Oct 04 2017 4:08PM GLO 1139 - US ANKLE LT / PROCEDURE REASON: Peroneal tendinitis, left leg * * * * Physician Interpretation * * * * LEFT LATERAL ANKLE ULTRASOUND: CLINICAL INFORMATION:Peroneal tendinitis, left leg TECHNIQUE: Batista-scale real-time ultrasound of the lateral ankle with dynamic imaging and power Doppler was performed. Images were archived for documentation. COMPARISON: Left ankle radiographs 05/22/2017 FINDINGS: AREA OF PAIN/SYMPTOMS: Peroneal tendon at the lateral malleolus PERONEUS TENDONS: The peroneus longus and brevis tendons are intact. The peroneal retinaculum is markedly thickened with hyperemia. There is moderate severe tenosynovitis of the peroneal tendons at the lateral malleolus. There is normal dynamic motion. The musculotendinous junctions are unremarkable. LATERAL LIGAMENTS: The anterior tibiofibular, anterior talofibular and calcaneofibular ligaments are intact. Dynamic evaluation of the ATFL is unremarkable. No dynamic anterior impingement is present. INFERIOR INTEROSSEOUS MEMBRANE: Unremarkable. SOFT TISSUES: There is subcutaneous edema. No soft tissue masses or organized fluid collections. IMPRESSION: Moderate to severe peroneal tendon tenosynovitis with hyperemia and marked thickening of the peroneal retinaculum. No tendon tear. 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 Transcribe Date/Time: Oct 04 2017 4:08P Dictated by : VALENTE RIVERO MD This examination was interpreted and the report reviewed and electronically signed by: ADONAY BLACKMAN MD on Oct 04 2017 5:08PM EST [id number] [id number] Observed: 10/04/2017 Status: COMPLETED Source: [place] 8:50 AM [facility] REPOSITORY HNO ID: [id number] Author: Taty (Pt) Cedrick Service: (none) Author Type: Physical Therapist Type: Progress Notes Filed: 10/04/2017 9:55 AM Note Text: Episode Visit Count: 20 Therapist That Will Oversee The Plan Of Care: Taty Philip Start of Care Date: 07/21/17 Onset Date: 07/21/16 (about one year) Patient Identified by Name and Date of : Yes Precaution/Activity Restriction Comments: cervical spine precautions REHABILITATION AND SPORTS THERAPY PHYSICAL THERAPY TREATMENT NOTE ASSESSMENT: Ralph Joshi demonstrated improvements in strength and proprioception via improved control and ability to touch edges on BAPS board. The patient will continue to benefit from continued skilled physical therapy for strength, ROM, gait and pain control. PLAN FOR NEXT VISIT: Continue with ex, IASTM, and ultrasound prn. May progress strengthening/proprioceptive exercises and HEP. SUBJECTIVE: Pt reports she is feeling better than Monday, describing increased soreness after hiking over the weekend. Pain Score: 4/10 Pain Location: Ankle - Left Description: Burning Frequency: Continuous Post Treatment Pain Score: 2/10 Pain Location: Ankle - Left Post Treatment Pain Description: (minor, feels better) OBJECTIVE MEASURES WITH LEVEL OF FUNCTION: Ankle Observations L Ankle Palpation Tenderness: No tenderness noted Pt demonstrated improved control during BAPS board activity and able to touch edge of board to floor more completely during circles. TREATMENT: Therapeutic Exercise: 3: ankle alphabet A-Z x 1. 4: Forward step ups onto foam square leading with right and left LE 2 x 10. 5: Lateral step up and over foam square 2 x 10 each direction. 6: Left long sitting strap assist gastroc stretch 3x30 seconds. 7: L ankle dorsiflexion with blue band resistance 3 x 10 reps 8: L ankle plantarflexion with blue band resistance 3 x 10 reps 9: L ankle inversion with blue band resistance 3 x 10 reps 10: L ankle eversion with blue band resistance 3 x 10 reps 11: Standing BAPS ball 3 left PWB A/P, lateral and cw and ccw 2x10. Skilled Intervention: Patient was educated in proper exercise technique and purpose for exercises. Reviewed and educated patient on additions/changes for home exercise program Skilled judgment was provided in selection of appropriate interventions. Correct performance of therapeutic exercises was facilitated with verbal and visual cuing. Patient education as noted. Manual Therapy: 1: IASTM with scanner and tongue depressor left lateral malleolar/peroneal and gastroc region x 10 minutes with pressure to patient tolerance with pt in prone lying. Skilled Intervention: Manual skills to improve joint mobility, ROM, and decrease pain. Utilized anatomy knowledge of the therapist, and assessment of patient's response to intervention. Modalities: Ultrasound Body Region Treated - Ultrasound: Left lateral ankle, sub and posterior malleolar regions, peroneal tendon Patient Position: Prone lying Mode: 100% w/cm2: 1.2 MHZ: 1 Minutes: 10 See flowsheet for details regarding treatment. Skilled Intervention: Proper administration and selection of modality based on clinical presentation, deficits, and needs. Patient response monitored throughout treatment. Billing: [facility]: Therapeutic Exercise (43020): 1:1 time: 21 minutes (1 unit: 8-22 mins) Manual Therapy (31011): 1:1 time: 10 minutes (1 unit: 8-22 mins) Modalities Ultrasound (95552) 1:1 time: 10 minutes1 unit: 8-22 mins Total time: 41 minutes Taty Philip PT CNTHERAPY Observed: 10/04/2017 Status: COMPLETED Source: [place] 8:45 AM [facility] REPOSITORY OT/PT/Speech Visit (PTWS) RALPH JOSHI ([id number]) 1955 F Date Time Provider Department 10/04/17 8:45 AM TATY PHILIP (PT) PTWS Date Time Provider Department Center 10/04/2017 8:45 AM [id number] PHILIP (PT) PTWS [facility] [place] Reason for Visit: Physical Therapy [503] Primary Visit Diagnosis:Peroneal tendinitis, left [M76.72] Allergies As of Date: 10/04/2017 Noted Allergy Reaction AVOCADO 09/10/2014 10 - Anaphylaxis BANANA 09/10/2014 10 - Anaphylaxis CARBINOXAMINE 09/17/2012 10 - Anaphylaxis YOSELIN SEED 08/28/2013 10 - Anaphylaxis CIPROFLOXACIN 04/11/2014 10 - Anaphylaxis CODEINE 01/12/2012 10 - Anaphylaxis CONTRAST DYE 05/17/2013 10 - Anaphylaxis Comments: To MRI and CT FISH 09/07/2014 10 - Anaphylaxis HYCODAN (HYDROCODONE-HOMATROPINE) 09/08/2011 10 - Anaphylaxis Comments: Face and throat swelling LATEX 01/21/2014 10 - Anaphylaxis IMTIAZ-SYNEPHRINE (PHENYLEPHRINE HCL)09/04/2014 10 - Anaphylaxis Comments: 10% eye drop NICKEL 01/07/2014 2 - Rash 4 - Hives 10 - Anaphylaxis NSAIDS (NON-STEROIDAL ANTI-INFLAM*08/16/2010 14 - Other: See Comments Comments: Kidney function drops; reversible kidney damage. OXYCODONE 08/28/2013 10 - Anaphylaxis PERIACTIN (CYPROHEPTADINE) 09/17/2012 10 - Anaphylaxis PNEUMOCOCCAL VACCINE 10/31/2014 10 - Anaphylaxis SHELLFISH 09/07/2014 10 - Anaphylaxis ZANTAC (RANITIDINE) 09/17/2012 10 - Anaphylaxis ATIVAN (LORAZEPAM) 08/28/2013 14 - Other: See Comments Comments: hallucination BEEF CONTAINING PRODUCTS 09/10/2014 2 - Rash CORN 05/03/2011 14 - Other: See Comments Comments: Feels like an asthma attack. EGGS (EGG) 03/08/2011 2 - Rash 11 - Vomiting EKG LEADS (ADHESIVE) 10/22/2012 2 - Rash Comments: Localized,only under the leads environmental [Other] 06/26/2007 14 - Other: See Comments Comments: Nasal congestion, brings on an asthma attack. INFLUENZA VIRUS VACCINES 10/22/2012 12 - Shortness of Breath LISINOPRIL 04/20/2004 3 - Cough MILK 03/08/2011 2 - Rash 11 - Vomiting MOMETASONE 04/05/2017 10 - Anaphylaxis Comments: Per Dr. Salas she tolerates formoterol (on Breo at home) but is allergic to mometasone. Okayed by him to update. surgical tape [Other] 11/10/2009 2 - Rash 7 - Swelling Comments: Oral rash, swelling of eyes, asthma attacks; per pateint report. XOLAIR (OMALIZUMAB) 04/19/2012 12 - Shortness of Breath Date Reviewed: 09/26/2017 Reviewed by: Cris Avendaño Ma - Fully Assessed Prescriptions as of 10/04/2017 Sig: CROMOLYN 20 MG/2 ML SOLUTION * Use 20 mg via nebulizer three* EPINEPHRINE 0.3 MG/0.3 ML INJ* Inject 0.3 mL intramuscularly* DIPHENHYDRAMINE 25 MG TABLET Take 1 tablet by mouth every * PREGABALIN 150 MG CAPSULE Take 1 capsule by mouth twice* PREGABALIN 150 MG CAPSULE Take 1 capsule by mouth twice* ATORVASTATIN 20 MG TABLET One tab on MWF only SPIRONOLACTONE 50 MG TABLET Take 1 tablet by mouth twice * LANSOPRAZOLE 30 MG CAPSULE,DE* TAKE 1 CAPSULE TWICE A DAY BUMETANIDE 0.5 MG TABLET Take 1 tablet by mouth once d* NITROGLYCERIN 0.4 MG SUBLINGU* DISSOLVE 1 TABLET UNDER THE T* ALBUTEROL SULFATE HFA 90 MCG/* Inhale 2 Puffs as instructed * FLUTICASONE 100 MCG-VILANTERO* Inhale 1 Inhalation as instru* Patient taking differently: Inhale 2 Inhalation as instru* LEVALBUTEROL 1.25 MG/3 ML BRENDA* Use 1 Ampule via nebulizer ev* FLUTICASONE 50 MCG/ACTUATION * 1-2 sprays each side qd BUDESONIDE 0.5 MG/2 ML SUSPEN* Use 1 Ampule via nebulizer tw* AZELASTINE 0.15 % (205.5 MCG)* Use 1 Wilberforce in each nostril t* COMPOUNDED PRESCRIPTION Nocturnal oximetry on room ai* CHOLESTYRAMINE (WITH SUGAR) 4* Take 1 scoop by mouth once da* AMLODIPINE 10 MG TABLET Take 0.5 tablets by mouth onc* CYANOCOBALAMIN (VIT B-12) 1,0* Take 1 tablet by mouth once d* ATENOLOL 25 MG TABLET Take 1 tablet by mouth once d* ERGOCALCIFEROL (VITAMIN D2) 5* Take 1 capsule by mouth once * Patient taking differently: Take 50,000 Units by mouth on* TURMERIC ROOT EXTRACT ORAL Take 1 tablet by mouth twice * CRISABOROLE 2 % TOPICAL OINTM* Apply to the hands twice daily COMPOUNDED PRESCRIPTION Please provide patient with n* CETIRIZINE 10 MG TABLET Take 10 mg by mouth once mary ellen* PIMECROLIMUS 1 % TOPICAL CREAM Apply twice daily to the hands ONDANSETRON HCL 4 MG TABLET Take 1 tablet by mouth every * BENZONATATE 200 MG CAPSULE Take 200 mg by mouth three ti* LACTOBACILLUS RHAMNOSUS GG 10* Take 1 capsule by mouth twice* AMOXICILLIN 250 MG CAPSULE Take 250 mg by mouth once liam* ZAFIRLUKAST 20 MG TABLET Take 1 tablet by mouth twice * DOXAZOSIN 2 MG TABLET Take 2 mg by mouth once daily. CYCLOSPORINE MODIFIED 50 MG C* Take 50 mg by mouth twice liam* ASCORBIC ACID (VITAMIN C) 500* Take 1 tablet by mouth once d* Progress Notes: Taty Philip, PT 10/04/2017 9:55 AM Signed Episode Visit Count: 20 Therapist That Will Oversee The Plan Of Care: Taty Philip Start of Care Date: 07/21/17 Onset Date: 07/21/16 (about one year) Patient Identified by Name and Date of : Yes Precaution/Activity Restriction Comments: cervical spine precautions REHABILITATION AND SPORTS THERAPY PHYSICAL THERAPY TREATMENT NOTE ASSESSMENT: Ralph Joshi demonstrated improvements in strength and proprioception via improved control and ability to touch edges on BAPS board. The patient will continue to benefit from continued skilled physical therapy for strength, ROM, gait and pain control. PLAN FOR NEXT VISIT: Continue with ex, IASTM, and ultrasound prn. May progress strengthening/proprioceptive exercises and HEP. SUBJECTIVE: Pt reports she is feeling better than Monday, describing increased soreness after hiking over the weekend. Pain Score: 4/10 Pain Location: Ankle - Left Description: Burning Frequency: Continuous Post Treatment Pain Score: 2/10 Pain Location: Ankle - Left Post Treatment Pain Description: (minor, feels better) OBJECTIVE MEASURES WITH LEVEL OF FUNCTION: Ankle Observations L Ankle Palpation Tenderness: No tenderness noted Pt demonstrated improved control during BAPS board activity and able to touch edge of board to floor more completely during circles. TREATMENT: Therapeutic Exercise: 3: ankle alphabet A-Z x 1. 4: Forward step ups onto foam square leading with right and left LE 2 x 10. 5: Lateral step up and over foam square 2 x 10 each direction. 6: Left long sitting strap assist gastroc stretch 3x30 seconds. 7: L ankle dorsiflexion with blue band resistance 3 x 10 reps 8: L ankle plantarflexion with blue band resistance 3 x 10 reps 9: L ankle inversion with blue band resistance 3 x 10 reps 10: L ankle eversion with blue band resistance 3 x 10 reps 11: Standing BAPS ball 3 left PWB A/P, lateral and cw and ccw 2x10. Skilled Intervention: Patient was educated in proper exercise technique and purpose for exercises. Reviewed and educated patient on additions/changes for home exercise program Skilled judgment was provided in selection of appropriate interventions. Correct performance of therapeutic exercises was facilitated with verbal and visual cuing. Patient education as noted. Manual Therapy: 1: IASTM with scanner and tongue depressor left lateral malleolar/peroneal and gastroc region x 10 minutes with pressure to patient tolerance with pt in prone lying. Skilled Intervention: Manual skills to improve joint mobility, ROM, and decrease pain. Utilized anatomy knowledge of the therapist, and assessment of patient's response to intervention. Modalities: Ultrasound Body Region Treated - Ultrasound: Left lateral ankle, sub and posterior malleolar regions, peroneal tendon Patient Position: Prone lying Mode: 100% w/cm2: 1.2 MHZ: 1 Minutes: 10 See flowsheet for details regarding treatment. Skilled Intervention: Proper administration and selection of modality based on clinical presentation, deficits, and needs. Patient response monitored throughout treatment. Billing: [facility]: Therapeutic Exercise ([id number]): 1:1 time: 21 minutes (1 unit: 8-22 mins) Manual Therapy (42132): 1:1 time: 10 minutes (1 unit: 8-22 mins) Modalities Ultrasound (09346) 1:1 time: 10 minutes1 unit: 8-22 mins Total time: 41 minutes Taty Philip, PT PROGRESS Observed: 10/02/2017 Status: COMPLETED Source: [place] 10:12 AM [facility] REPOSITORY HNO ID: [id number] Author: Saige (Pt) Sumeet Service: (none) Author Type: Physical Therapist Type: Progress Notes Filed: 10/02/2017 11:46 AM Note Text: Episode Visit Count: 19 Therapist That Will Oversee The Plan Of Care: Taty Philip Start of Care Date: 07/21/17 Onset Date: 07/21/16 (about one year) Patient Identified by Name and Date of : Yes Precaution/Activity Restriction Comments: cervical spine precautions REHABILITATION AND SPORTS THERAPY PHYSICAL THERAPY TREATMENT NOTE ASSESSMENT: Ralph Joshi demonstrated increase edema left lateral malleoli region from increase activity over the weekend. Slight reduction in swelling with manual techniques. Decrease pain noted after US. The patient will continue to benefit from continued skilled physical therapy for strengthening, IASTM and US for pain control. PLAN FOR NEXT VISIT: Continue with ROM, IASTM and US. SUBJECTIVE: Patient reports more active over the weekend and has increase soreness today. Pain Score: 5/10 Pain Location: Ankle - Left Description: Aching;Burning;Sore Frequency: Continuous Post Treatment Pain Score: 2/10 Pain Location: Ankle - Left Post Treatment Pain Description: Burning OBJECTIVE MEASURES WITH LEVEL OF FUNCTION: Slight reduction in visible edema left lateral malleoli with manual techniques prone with foot elevated. TREATMENT: Therapeutic Exercise: 3: Lateral step up and over foam square x 10 each direction. 4: ankle alphabet A-Z x 1. 6: Left long sitting strap assist gastroc stretch 3x30 seconds. 7: L ankle dorsiflexion with blue band resistance 3 x 10 reps 8: L ankle plantarflexion with blue band resistance 3 x 10 reps 9: L ankle inversion with blue band resistance 3 x 10 reps 10: L ankle eversion with blue band resistance 3 x 10 reps 11: Forward step ups onto foam square leading with right and left LE x 10. 12: Standing BAPS ball 3 left PWB A/ZP, lateral and cw and ccw 2x10. Skilled Intervention: Patient was educated in proper exercise technique and purpose for exercises. Skilled judgment was provided in selection of appropriate interventions. Manual Therapy: 1: IASTM with scanner and tongue depressor left lateral malleolar/peroneal and gastroc region x 10 minutes with pressure to patient tolerance in elevation with green bolster under ankle. Skilled Intervention: Manual skills to improve joint mobility, ROM, and decrease pain. Utilized anatomy knowledge of the therapist, and assessment of patient's response to intervention. Modalities: Ultrasound Body Region Treated - Ultrasound: Left lateral ankle, sub and posterior malleolar regions, peroneal tendon Patient Position: Prone lying Mode: 100% w/cm2: 1.2 MHZ: 1 Minutes: 10 See flowsheet for details regarding treatment. Skilled Intervention: Proper administration and selection of modality based on clinical presentation, deficits, and needs. Patient response monitored throughout treatment. Billing: [facility]: Therapeutic Exercise ([id number]): 1:1 time: 21 minutes (1 unit: 8-22 mins) Manual Therapy (59117): 1:1 time: 10 minutes (1 unit: 8-22 mins) Modalities Ultrasound (50973) 1:1 time: 10 minutes1 unit: 8-22 mins Total time: 41 minutes VIK Glez/Saige Fay PT CNTHERAPY Observed: 10/02/2017 Status: COMPLETED Source: [place] 8:30 AM [facility] REPOSITORY OT/PT/Speech Visit (PTWS) RALPH JOSHI ([id number]) 1955 F Date Time Provider Department 10/02/17 8:30 AM MICHAELA BLAKELY (LAP POLISHER) PTWS Date Time Provider Department Center 10/02/2017 8:30 AM [id number], NANCY ([employer]ER) PTWS [facility] Reason for Visit: Physical Therapy [503] Primary Visit Diagnosis:Peroneal tendinitis, left [M76.72] Allergies As of Date: 10/02/2017 Noted Allergy Reaction AVOCADO 09/10/2014 10 - Anaphylaxis BANANA 09/10/2014 10 - Anaphylaxis CARBINOXAMINE 09/17/2012 10 - Anaphylaxis YOSELIN SEED 08/28/2013 10 - Anaphylaxis CIPROFLOXACIN 04/11/2014 10 - Anaphylaxis CODEINE 01/12/2012 10 - Anaphylaxis CONTRAST DYE 05/17/2013 10 - Anaphylaxis Comments: To MRI and CT FISH 09/07/2014 10 - Anaphylaxis HYCODAN (HYDROCODONE-HOMATROPINE) 09/08/2011 10 - Anaphylaxis Comments: Face and throat swelling LATEX 01/21/2014 10 - Anaphylaxis IMTIAZ-SYNEPHRINE (PHENYLEPHRINE HCL)09/04/2014 10 - Anaphylaxis Comments: 10% eye drop NICKEL 01/07/2014 2 - Rash 4 - Hives 10 - Anaphylaxis NSAIDS (NON-STEROIDAL ANTI-INFLAM*08/16/2010 14 - Other: See Comments Comments: Kidney function drops; reversible kidney damage. OXYCODONE 08/28/2013 10 - Anaphylaxis PERIACTIN (CYPROHEPTADINE) 09/17/2012 10 - Anaphylaxis PNEUMOCOCCAL VACCINE 10/31/2014 10 - Anaphylaxis SHELLFISH 09/07/2014 10 - Anaphylaxis ZANTAC (RANITIDINE) 09/17/2012 10 - Anaphylaxis ATIVAN (LORAZEPAM) 08/28/2013 14 - Other: See Comments Comments: hallucination BEEF CONTAINING PRODUCTS 09/10/2014 2 - Rash CORN 05/03/2011 14 - Other: See Comments Comments: Feels like an asthma attack. EGGS (EGG) 03/08/2011 2 - Rash 11 - Vomiting EKG LEADS (ADHESIVE) 10/22/2012 2 - Rash Comments: Localized,only under the leads environmental [Other] 06/26/2007 14 - Other: See Comments Comments: Nasal congestion, brings on an asthma attack. INFLUENZA VIRUS VACCINES 10/22/2012 12 - Shortness of Breath LISINOPRIL 04/20/2004 3 - Cough MILK 03/08/2011 2 - Rash 11 - Vomiting MOMETASONE 04/05/2017 10 - Anaphylaxis Comments: Per Dr. Salas she tolerates formoterol (on Breo at home) but is allergic to mometasone. Okayed by him to update. surgical tape [Other] 11/10/2009 2 - Rash 7 - Swelling Comments: Oral rash, swelling of eyes, asthma attacks; per pateint report. XOLAIR (OMALIZUMAB) 04/19/2012 12 - Shortness of Breath Date Reviewed: 09/26/2017 Reviewed by: Cris Avendaño Ma - Fully Assessed Prescriptions as of 10/02/2017 Sig: CROMOLYN 20 MG/2 ML SOLUTION * Use 20 mg via nebulizer three* EPINEPHRINE 0.3 MG/0.3 ML INJ* Inject 0.3 mL intramuscularly* FAMOTIDINE 20 MG TABLET Take 1 tablet by mouth twice * DIPHENHYDRAMINE 25 MG TABLET Take 1 tablet by mouth every * PREGABALIN 150 MG CAPSULE Take 1 capsule by mouth twice* PREGABALIN 150 MG CAPSULE Take 1 capsule by mouth twice* ATORVASTATIN 20 MG TABLET One tab on MWF only SPIRONOLACTONE 50 MG TABLET Take 1 tablet by mouth twice * LANSOPRAZOLE 30 MG CAPSULE,DE* TAKE 1 CAPSULE TWICE A DAY BUMETANIDE 0.5 MG TABLET Take 1 tablet by mouth once d* NITROGLYCERIN 0.4 MG SUBLINGU* DISSOLVE 1 TABLET UNDER THE T* ALBUTEROL SULFATE HFA 90 MCG/* Inhale 2 Puffs as instructed * FLUTICASONE 100 MCG-VILANTERO* Inhale 1 Inhalation as instru* Patient taking differently: Inhale 2 Inhalation as instru* LEVALBUTEROL 1.25 MG/3 ML BRENDA* Use 1 Ampule via nebulizer ev* FLUTICASONE 50 MCG/ACTUATION * 1-2 sprays each side qd BUDESONIDE 0.5 MG/2 ML SUSPEN* Use 1 Ampule via nebulizer tw* AZELASTINE 0.15 % (205.5 MCG)* Use 1 Wilberforce in each nostril t* COMPOUNDED PRESCRIPTION Nocturnal oximetry on room ai* CHOLESTYRAMINE (WITH SUGAR) 4* Take 1 scoop by mouth once da* AMLODIPINE 10 MG TABLET Take 0.5 tablets by mouth onc* CYANOCOBALAMIN (VIT B-12) 1,0* Take 1 tablet by mouth once d* ATENOLOL 25 MG TABLET Take 1 tablet by mouth once d* ERGOCALCIFEROL (VITAMIN D2) 5* Take 1 capsule by mouth once * Patient taking differently: Take 50,000 Units by mouth on* TURMERIC ROOT EXTRACT ORAL Take 1 tablet by mouth twice * CRISABOROLE 2 % TOPICAL OINTM* Apply to the hands twice daily COMPOUNDED PRESCRIPTION Please provide patient with n* CETIRIZINE 10 MG TABLET Take 10 mg by mouth once mary ellen* PIMECROLIMUS 1 % TOPICAL CREAM Apply twice daily to the hands ONDANSETRON HCL 4 MG TABLET Take 1 tablet by mouth every * BENZONATATE 200 MG CAPSULE Take 200 mg by mouth three ti* LACTOBACILLUS RHAMNOSUS GG 10* Take 1 capsule by mouth twice* AMOXICILLIN 250 MG CAPSULE Take 250 mg by mouth once liam* ZAFIRLUKAST 20 MG TABLET Take 1 tablet by mouth twice * DOXAZOSIN 2 MG TABLET Take 2 mg by mouth once daily. CYCLOSPORINE MODIFIED 50 MG C* Take 50 mg by mouth twice liam* ASCORBIC ACID (VITAMIN C) 500* Take 1 tablet by mouth once d* Progress Notes: Saige Fay, PT 10/02/2017 11:46 AM Signed Episode Visit Count: 19 Therapist That Will Oversee The Plan Of Care: Taty Philip Start of Care Date: 07/21/17 Onset Date: 07/21/16 (about one year) Patient Identified by Name and Date of : Yes Precaution/Activity Restriction Comments: cervical spine precautions REHABILITATION AND SPORTS THERAPY PHYSICAL THERAPY TREATMENT NOTE ASSESSMENT: Ralph Joshi demonstrated increase edema left lateral malleoli region from increase activity over the weekend. Slight reduction in swelling with manual techniques. Decrease pain noted after US. The patient will continue to benefit from continued skilled physical therapy for strengthening, IASTM and US for pain control. PLAN FOR NEXT VISIT: Continue with ROM, IASTM and US. SUBJECTIVE: Patient reports more active over the weekend and has increase soreness today. Pain Score: 5/10 Pain Location: Ankle - Left Description: Aching;Burning;Sore Frequency: Continuous Post Treatment Pain Score: 2/10 Pain Location: Ankle - Left Post Treatment Pain Description: Burning OBJECTIVE MEASURES WITH LEVEL OF FUNCTION: Slight reduction in visible edema left lateral malleoli with manual techniques prone with foot elevated. TREATMENT: Therapeutic Exercise: 3: Lateral step up and over foam square x 10 each direction. 4: ankle alphabet A-Z x 1. 6: Left long sitting strap assist gastroc stretch 3x30 seconds. 7: L ankle dorsiflexion with blue band resistance 3 x 10 reps 8: L ankle plantarflexion with blue band resistance 3 x 10 reps 9: L ankle inversion with blue band resistance 3 x 10 reps 10: L ankle eversion with blue band resistance 3 x 10 reps 11: Forward step ups onto foam square leading with right and left LE x 10. 12: Standing BAPS ball 3 left PWB A/ZP, lateral and cw and ccw 2x10. Skilled Intervention: Patient was educated in proper exercise technique and purpose for exercises. Skilled judgment was provided in selection of appropriate interventions. Manual Therapy: 1: IASTM with scanner and tongue depressor left lateral malleolar/peroneal and gastroc region x 10 minutes with pressure to patient tolerance in elevation with green bolster under ankle. Skilled Intervention: Manual skills to improve joint mobility, ROM, and decrease pain. Utilized anatomy knowledge of the therapist, and assessment of patient's response to intervention. Modalities: Ultrasound Body Region Treated - Ultrasound: Left lateral ankle, sub and posterior malleolar regions, peroneal tendon Patient Position: Prone lying Mode: 100% w/cm2: 1.2 MHZ: 1 Minutes: 10 See flowsheet for details regarding treatment. Skilled Intervention: Proper administration and selection of modality based on clinical presentation, deficits, and needs. Patient response monitored throughout treatment. Billing: [facility]: Therapeutic Exercise ([id number]): 1:1 time: 21 minutes (1 unit: 8-22 mins) Manual Therapy (81955): 1:1 time: 10 minutes (1 unit: 8-22 mins) Modalities Ultrasound (09747) 1:1 time: 10 minutes1 unit: 8-22 mins Total time: 41 minutes Michaela Blakely, PT-A/Saige Fay PT Previous Version Follow-up and Disposition History Recorded CBC W/DIFF, AUTOMATED Collected: 09/29/2017 Status: F Source: [place] 11:52 AM [facility] REPOSITORY TYPE CODE TESTS RESULT OUT OF RANGE REFERENCE UNITS LAB L100.1000 4.4-11.0 K/mm3 Normal WBC 7.4 LAB L100.1200 4.2-5.4 M/mm3 Normal RBC 4.86 LAB L100.1300 12.0-15.0 g/dl Normal HGB 14.5 LAB L100.1400 37-47 % Normal HCT 43.7 LAB L100.1500 81-99 fL Normal MCV 89.9 LAB L100.1600 27.0-32.0 pg Normal MCH 29.8 LAB L100.1700 32-36 g/gl Normal MCHC 33.2 LAB L100.1810 11.6-14.6 % Normal RDW CV 14.1 LAB L100.1820 35.1-43.9 fl High RDW SD 45.8 LAB L100.1900 150-450 K/mm3 Normal PLT 227 LAB L100.2000 6.2-12.0 fl Normal MPV 10.9 LAB L100.2100 47-70 % High NEUT% 72.5 LAB L100.2200 19-41 % Low LY% 16.4 LAB L100.2300 0-10 % Normal MONO% 6.1 LAB L100.2400 0-5 % Normal EO% 3.4 LAB L100.2500 0-1 % Normal BASO% 0.8 LAB L100.2550 0.0-0.9 % Normal IM GRAN % 0.800 Result Comment: IG% - Immature Granulocytes (promyelocytes, myelocytes and metamyelocytes) > 1% indicates that a LEFT SHIFT is Present. LAB L100.2620 2.0-7.7 X10 3/uL Normal Absolute Neut 5.4 LAB L100.2720 0.83-4.51 X10 3/ul Normal Absolute Lymph 1.21 Performed By: #### L100.0100 #### [facility] [place], [place], [address] URINALYSIS, ROUTINE Collected: 09/29/2017 Status: F Source: [place] (DIPSTICK) 11:52 AM [facility] REPOSITORY Order Comment: How was Urine Obtained? CLEAN CATCH TYPE CODE TESTS RESULT OUT OF RANGE REFERENCE UNITS LAB L400.3000 Yellow COLOR Normal Yellow LAB L400.3050 Clear Normal CLARITY Clear LAB L400.3200 Normal mg/dl Normal GLUCOSE, UR Normal LAB L400.3300 Negative mg/dL Normal BILIRUBIN URINE Negative LAB L400.3400 Negative mg/dl Normal KETONE UR Negative LAB L400.3465 1.002-1.030 Normal SP.GR. DIPSTX 1.015 LAB L400.3550 5.0 - 8.0 pH UR Normal 5.0 LAB L400.3600 Negative mg/dl High PROT 15 DIPSTX LAB L400.3700 Normal mg/dl Normal UROBILI Normal LAB L400.3750 Negative Normal NITRITE UR Negative LAB L400.3780 Negative /ul Normal OCCULT BLOOD-UR Negative LAB L400.3800 Negative /ul LEUK Normal ESTERASE Negative Performed By: #### L400.2010 #### [facility] [address] [place], [address] BUN Collected: 09/29/2017 Status: F Source: [place] 11:52 AM [facility] REPOSITORY TYPE CODE TESTS RESULT OUT OF RANGE REFERENCE UNITS LAB L501.1000 7-18 mg/dL High BUN 23 Performed By: #### L501.1000, L501.1105, L501.1800, L501.4100, L501.4405 #### [facility] [address] [place], [address] SERUM CREATININE AND Collected: 09/29/2017 Status: F Source: [place] GFR 11:52 AM [facility] REPOSITORY TYPE CODE TESTS RESULT OUT OF RANGE REFERENCE UNITS LAB L501.1100 0.55-1.02 mg/dL High 1.33 CREAT,SERUM Result Comment: The validity of the calculated GFR AND GFRAA in patients over 70 years has not been determined. Clinical correlation is essential. LAB L501.1110 >60 mL/min Low EST GFR 43 Result Comment: Non- GFR Calc LAB L501.1115 >60 mL/min Low EST GFR - AA 52 Result Comment: GFR Calc Performed By: #### L501.1000, L501.1105, L501.1800, L501.4100, L501.4405 #### [facility] [address] [place], [address] ALBUMIN, SERUM Collected: 09/29/2017 Status: F Source: [place] 11:52 AM [facility] REPOSITORY TYPE CODE TESTS RESULT OUT OF RANGE REFERENCE UNITS LAB L501.1800 3.2-5.0 g/dL Normal ALB 3.7 Performed By: #### L501.1000, L501.1105, L501.1800, L501.4100, L501.4405 #### [facility] [address] [place], [address] AST(SGOT) Collected: 09/29/2017 Status: F Source: [place] 11:52 AM [facility] REPOSITORY TYPE CODE TESTS RESULT OUT OF RANGE REFERENCE UNITS LAB L501.4100 15-37 U/L Normal AST 26 Performed By: #### L501.1000, L501.1105, L501.1800, L501.4100, L501.4405 #### [facility] [address] [place], [address] ALANINE AMINOTRANSFERAS Collected: 09/29/2017 Status: F Source: [place] (SGPT) 11:52 AM [facility] REPOSITORY TYPE CODE TESTS RESULT OUT OF RANGE REFERENCE UNITS LAB L501.4405 13-56 U/L Normal ALT 52 Performed By: #### L501.1000, L501.1105, L501.1800, L501.4100, L501.4405 #### [facility] [address] [place], [address] CYCLOSPORINE, BLOOD Collected: 09/29/2017 Status: F Source: [place] 11:52 AM [facility] REPOSITORY TYPE CODE TESTS RESULT OUT OF REFERENCE UNITS RANGE LAB L3400.3100 100-400 ng/mL Cyclosporine Normal 163 Result Comment: Therapeutic: Renal Transplant 100 - 250 Liver Transplant 100 - 400 Cardiac Transplant 100 - 400 Bone Marrow 200 - 300 Detection Limit = 25 Assay performed by Liquid Chromatography Tandem Mass Spectrometry (LC-MS/MS) If preferred testing methodology for Cyclosporine is Liquid Chromatography Tandem Mass Spectrometry (LC-MS/MS) please use test code [id number]. For testing performed by Immunoassay, please use test code [id number]. Performed at: [address] [id number] [employer] Director: Mik Alonso MD, Phone: [phone] Performed By: #### L3400.3090 #### [facility] (refer to report for specific site) refer to report for address and phone number PROGRESS Observed: 09/29/2017 Status: COMPLETED Source: [place] 6:42 AM [facility] REPOSITORY O ID: [id number] Author: Taty (Pt) Cedrick Service: (none) Author Type: Physical Therapist Type: Progress Notes Filed: 09/29/2017 1:28 PM Note Text: Episode Visit Count: 18 Therapist That Will Oversee The Plan Of Care: Aggie Philipissa Start of Care Date: 07/21/17 Onset Date: 07/21/16 (about one year) Patient Identified by Name and Date of : Yes REHABILITATION AND SPORTS THERAPY PHYSICAL THERAPY TREATMENT NOTE ASSESSMENT: Ralph Joshi demonstrated difficulty with continuation of burning left peroneal tendon region with minimal change with the burning. She reports improved ability to walk. Edema also persists lateral malleolar region. Patient feels therapy is helpful with pain control and feels stronger with doing the exercises. The patient will continue to benefit from continued skilled physical therapy for exercise , IASTM and US. PLAN FOR NEXT VISIT: Possibly increase BAPS PWB to ball 3 next visit. SUBJECTIVE: Patient reports driving and had an alergic reaction to a bee sting and was in ER x 6 hours since last seen. Pain Score: 3/10 Pain Location: Ankle - Left Description: Burning Frequency: Continuous Post Treatment Pain Score: (not quantified) Pain Location: Ankle - Left Post Treatment Pain Description: (decrease pain and better) OBJECTIVE MEASURES WITH LEVEL OF FUNCTION: Edema persists left lateral malleolar region. TREATMENT: Therapeutic Exercise: 3: Lateral step up and over foam square x 10 each direction. 4: ankle alphabet A-Z x 1. 6: Left long sitting strap assist gastroc stretch 3x30 seconds. 7: L ankle dorsiflexion with green band resistance 3 x 10 reps 8: L ankle plantarflexion with green band resistance 3 x 10 reps 9: L ankle inversion with green band resistance 3 x 10 reps 10: L ankle eversion with green band resistance 3 x 10 reps 11: Forward step ups onto foam square leading with right and left LE x 10. 12: Standing BAPS ball 3 left PWB with 2.5# with increase pain and this was stopped. BAPS PWB ball 2 no weight A/P and lateral x 10 and deferred circles due to pain. Skilled Intervention: Patient was educated in proper exercise technique and purpose for exercises. Skilled judgment was provided in selection of appropriate interventions. Manual Therapy: 1: IASTM with boomerrang and tongue depressor left lateral malleolar/peroneal and gastroc region x 10 minutes with pressure to patient tolerance. Skilled Intervention: Manual skills to improve joint mobility, ROM, and decrease pain. Utilized anatomy knowledge of the therapist, and assessment of patient's response to intervention. Modalities: Ultrasound Body Region Treated - Ultrasound: Left lateral ankle, sub and posterior malleolar regions, peroneal tendon Patient Position: Prone lying Mode: 100% w/cm2: 1.2 MHZ: 1 Minutes: 10 See flowsheet for details regarding treatment. Skilled Intervention: Proper administration and selection of modality based on clinical presentation, deficits, and needs. Patient response monitored throughout treatment. Billing: [facility]: Therapeutic Exercise ([id number]): 1:1 time: 21 minutes (1 unit: 8-22 mins) Manual Therapy (60687): 1:1 time: 10 minutes (1 unit: 8-22 mins) Modalities Ultrasound (28121) 1:1 time: 10 minutes1 unit: 8-22 mins Total time: 41 minutes VIK Glez PT CNTHERAPY Observed: 09/28/2017 Status: COMPLETED Source: [place] 9:15 AM [facility] REPOSITORY OT/PT/Speech Visit (PTWS) RALPH JOSHI ([id number]) 1955 F Date Time Provider Department 09/28/17 9:15 AM MICHAELA BLAKELY ([employer]ER) PTWS Date Time Provider Department Center 09/28/2017 9:15 AM [id number], NANCY ([employer]ER) PTWS [facility] [place] Reason for Visit: Physical Therapy [503] Primary Visit Diagnosis:Peroneal tendinitis, left [M76.72] Allergies As of Date: 09/28/2017 Noted Allergy Reaction AVOCADO 09/10/2014 10 - Anaphylaxis BANANA 09/10/2014 10 - Anaphylaxis CARBINOXAMINE 09/17/2012 10 - Anaphylaxis YOSELIN SEED 08/28/2013 10 - Anaphylaxis CIPROFLOXACIN 04/11/2014 10 - Anaphylaxis CODEINE 01/12/2012 10 - Anaphylaxis CONTRAST DYE 05/17/2013 10 - Anaphylaxis Comments: To MRI and CT FISH 09/07/2014 10 - Anaphylaxis HYCODAN (HYDROCODONE-HOMATROPINE) 09/08/2011 10 - Anaphylaxis Comments: Face and throat swelling LATEX 01/21/2014 10 - Anaphylaxis IMTIAZ-SYNEPHRINE (PHENYLEPHRINE HCL)09/04/2014 10 - Anaphylaxis Comments: 10% eye drop NICKEL 01/07/2014 2 - Rash 4 - Hives 10 - Anaphylaxis NSAIDS (NON-STEROIDAL ANTI-INFLAM*08/16/2010 14 - Other: See Comments Comments: Kidney function drops; reversible kidney damage. OXYCODONE 08/28/2013 10 - Anaphylaxis PERIACTIN (CYPROHEPTADINE) 09/17/2012 10 - Anaphylaxis PNEUMOCOCCAL VACCINE 10/31/2014 10 - Anaphylaxis SHELLFISH 09/07/2014 10 - Anaphylaxis ZANTAC (RANITIDINE) 09/17/2012 10 - Anaphylaxis ATIVAN (LORAZEPAM) 08/28/2013 14 - Other: See Comments Comments: hallucination BEEF CONTAINING PRODUCTS 09/10/2014 2 - Rash CORN 05/03/2011 14 - Other: See Comments Comments: Feels like an asthma attack. EGGS (EGG) 03/08/2011 2 - Rash 11 - Vomiting EKG LEADS (ADHESIVE) 10/22/2012 2 - Rash Comments: Localized,only under the leads environmental [Other] 06/26/2007 14 - Other: See Comments Comments: Nasal congestion, brings on an asthma attack. INFLUENZA VIRUS VACCINES 10/22/2012 12 - Shortness of Breath LISINOPRIL 04/20/2004 3 - Cough MILK 03/08/2011 2 - Rash 11 - Vomiting MOMETASONE 04/05/2017 10 - Anaphylaxis Comments: Per Dr. Salas she tolerates formoterol (on Breo at home) but is allergic to mometasone. Okayed by him to update. surgical tape [Other] 11/10/2009 2 - Rash 7 - Swelling Comments: Oral rash, swelling of eyes, asthma attacks; per pateint report. XOLAIR (OMALIZUMAB) 04/19/2012 12 - Shortness of Breath Date Reviewed: 09/26/2017 Reviewed by: Cris Avendaño Ma - Fully Assessed Prescriptions as of 09/28/2017 Sig: CROMOLYN 20 MG/2 ML SOLUTION * Use 20 mg via nebulizer three* EPINEPHRINE 0.3 MG/0.3 ML INJ* Inject 0.3 mL intramuscularly* FAMOTIDINE 20 MG TABLET Take 1 tablet by mouth twice * PREDNISONE 20 MG TABLET Take 2 tablets by mouth once * DIPHENHYDRAMINE 25 MG TABLET Take 1 tablet by mouth every * PREGABALIN 150 MG CAPSULE Take 1 capsule by mouth twice* PREGABALIN 150 MG CAPSULE Take 1 capsule by mouth twice* ATORVASTATIN 20 MG TABLET One tab on MWF only SPIRONOLACTONE 50 MG TABLET Take 1 tablet by mouth twice * LANSOPRAZOLE 30 MG CAPSULE,DE* TAKE 1 CAPSULE TWICE A DAY BUMETANIDE 0.5 MG TABLET Take 1 tablet by mouth once d* NITROGLYCERIN 0.4 MG SUBLINGU* DISSOLVE 1 TABLET UNDER THE T* ALBUTEROL SULFATE HFA 90 MCG/* Inhale 2 Puffs as instructed * FLUTICASONE 100 MCG-VILANTERO* Inhale 1 Inhalation as instru* Patient taking differently: Inhale 2 Inhalation as instru* LEVALBUTEROL 1.25 MG/3 ML BRENDA* Use 1 Ampule via nebulizer ev* FLUTICASONE 50 MCG/ACTUATION * 1-2 sprays each side qd BUDESONIDE 0.5 MG/2 ML SUSPEN* Use 1 Ampule via nebulizer tw* AZELASTINE 0.15 % (205.5 MCG)* Use 1 Wilberforce in each nostril t* COMPOUNDED PRESCRIPTION Nocturnal oximetry on room ai* CHOLESTYRAMINE (WITH SUGAR) 4* Take 1 scoop by mouth once da* AMLODIPINE 10 MG TABLET Take 0.5 tablets by mouth onc* CYANOCOBALAMIN (VIT B-12) 1,0* Take 1 tablet by mouth once d* ATENOLOL 25 MG TABLET Take 1 tablet by mouth once d* ERGOCALCIFEROL (VITAMIN D2) 5* Take 1 capsule by mouth once * Patient taking differently: Take 50,000 Units by mouth on* TURMERIC ROOT EXTRACT ORAL Take 1 tablet by mouth twice * CRISABOROLE 2 % TOPICAL OINTM* Apply to the hands twice daily COMPOUNDED PRESCRIPTION Please provide patient with n* CETIRIZINE 10 MG TABLET Take 10 mg by mouth once mary ellen* PIMECROLIMUS 1 % TOPICAL CREAM Apply twice daily to the hands ONDANSETRON HCL 4 MG TABLET Take 1 tablet by mouth every * BENZONATATE 200 MG CAPSULE Take 200 mg by mouth three ti* LACTOBACILLUS RHAMNOSUS GG 10* Take 1 capsule by mouth twice* AMOXICILLIN 250 MG CAPSULE Take 250 mg by mouth once liam* ZAFIRLUKAST 20 MG TABLET Take 1 tablet by mouth twice * DOXAZOSIN 2 MG TABLET Take 2 mg by mouth once daily. CYCLOSPORINE MODIFIED 50 MG C* Take 50 mg by mouth twice liam* ASCORBIC ACID (VITAMIN C) 500* Take 1 tablet by mouth once d* Progress Notes: Taty Philip, PT 09/29/2017 1:28 PM Signed Episode Visit Count: 18 Therapist That Will Oversee The Plan Of Care: Taty Philip Start of Care Date: 07/21/17 Onset Date: 07/21/16 (about one year) Patient Identified by Name and Date of : Yes REHABILITATION AND SPORTS THERAPY PHYSICAL THERAPY TREATMENT NOTE ASSESSMENT: Ralph Joshi demonstrated difficulty with continuation of burning left peroneal tendon region with minimal change with the burning. She reports improved ability to walk. Edema also persists lateral malleolar region. Patient feels therapy is helpful with pain control and feels stronger with doing the exercises. The patient will continue to benefit from continued skilled physical therapy for exercise , IASTM and US. PLAN FOR NEXT VISIT: Possibly increase BAPS PWB to ball 3 next visit. SUBJECTIVE: Patient reports driving and had an alergic reaction to a bee sting and was in ER x 6 hours since last seen. Pain Score: 3/10 Pain Location: Ankle - Left Description: Burning Frequency: Continuous Post Treatment Pain Score: (not quantified) Pain Location: Ankle - Left Post Treatment Pain Description: (decrease pain and better) OBJECTIVE MEASURES WITH LEVEL OF FUNCTION: Edema persists left lateral malleolar region. TREATMENT: Therapeutic Exercise: 3: Lateral step up and over foam square x 10 each direction. 4: ankle alphabet A-Z x 1. 6: Left long sitting strap assist gastroc stretch 3x30 seconds. 7: L ankle dorsiflexion with green band resistance 3 x 10 reps 8: L ankle plantarflexion with green band resistance 3 x 10 reps 9: L ankle inversion with green band resistance 3 x 10 reps 10: L ankle eversion with green band resistance 3 x 10 reps 11: Forward step ups onto foam square leading with right and left LE x 10. 12: Standing BAPS ball 3 left PWB with 2.5# with increase pain and this was stopped. BAPS PWB ball 2 no weight A/P and lateral x 10 and deferred circles due to pain. Skilled Intervention: Patient was educated in proper exercise technique and purpose for exercises. Skilled judgment was provided in selection of appropriate interventions. Manual Therapy: 1: IASTM with boomerrang and tongue depressor left lateral malleolar/peroneal and gastroc region x 10 minutes with pressure to patient tolerance. Skilled Intervention: Manual skills to improve joint mobility, ROM, and decrease pain. Utilized anatomy knowledge of the therapist, and assessment of patient's response to intervention. Modalities: Ultrasound Body Region Treated - Ultrasound: Left lateral ankle, sub and posterior malleolar regions, peroneal tendon Patient Position: Prone lying Mode: 100% w/cm2: 1.2 MHZ: 1 Minutes: 10 See flowsheet for details regarding treatment. Skilled Intervention: Proper administration and selection of modality based on clinical presentation, deficits, and needs. Patient response monitored throughout treatment. Billing: [facility]: Therapeutic Exercise ([id number]): 1:1 time: 21 minutes (1 unit: 8-22 mins) Manual Therapy (17382): 1:1 time: 10 minutes (1 unit: 8-22 mins) Modalities Ultrasound ([id number]) 1:1 time: 10 minutes1 unit: 8-22 mins Total time: 41 minutes VIK Glez PT Previous Version Follow-up and Disposition History Recorded PROGRESS Observed: 09/26/2017 Status: COMPLETED Source: [place] 10:13 AM [facility] REPOSITORY HNO ID: [id number] Author: Abelino Mcelroy Service: (none) Author Type: Nurse Practitioner Type: Progress Notes Filed: 09/26/2017 10:41 AM Note Text: SPINE CARE PATH LOW BACK PAIN: CHRONIC FOLLOW UP SUBJECTIVE HISTORY OF PRESENT ILLNESS: Reason for Visit: chronic low back/both leg pain Ralph Joshi is seen for chronic low back pain and BL behind the leg pain. Behind both thighs and into calves and defers heels. Rates total pain today as 6/10, with worsening with laying down, sitting too long, walking is relieving to pain however only so long. Pain is worse at night due to laying down. PED RED FLAGS YELLOW AND BLUE FLAGS Yes: Provider notified No-Significant Injury to Spine No-Use of Steroids for Prolonged Duration No-Loss of Bowel/Bladder Control, Genital/Anal Numbness No-Recent Use of Intravenous (IV) Drugs No-Difficulty Keeping Balance when Walking No-Progressive Weakness in Arms/Legs No-History of Any Type of Cancer YES-Unable to Find Position of Comfort YES-Pain at Night that Disturbs Sleep No-Recent Elevated Temp with Unknown Cause No-Diagnosed with Osteoporosis No-Unintentional Weight Loss or Gain No-Neg Attitude; Back Pain is Disabling No-Avoiding Activity (for Fear of Pain) No-Depression or Anxiety Disorders No-Social Problems No-Substance Use Disorder No-Job Dissatisfaction No-Financial Disincentives *PED (Patient Entered Data) osteoporosis flag will display for females 55 years or older and males 75 years or older. ACTIVE PROBLEM LIST Adrenal Nodule (Hcc) Urge Incontinence Female Stress Incontinence Hirsutism Gerd (Gastroesophageal Reflux Disease) THONY (obstructive sleep apnea) Obesity (Bmi 30.0-34.9) Idiopathic anaphylaxis Hyperlipidemia Ldl Goal <100 Impaired Fasting Glucose Multinodular Goiter CKD (chronic kidney disease) stage 3, GFR 30-59 ml/min (HCC) Moderate Persistent Asthma Without Complication Ulcerative Colitis Without Complications (Hcc) Chronic Nausea Lumbar Stenosis Cervical Stenosis of Spine Claustrophobia Lumbar Spondylosis Preop Testing Anaphylaxis Essential Hypertension Peroneal Tendinitis, Left PAST MEDICAL HISTORY Diagnosis Date - Abdominal pain, other specified site - ACNE NEC 01/21/2008 - Actinic Keratosis (Premalignant AK) 06/05/2011 - ACUTE GASTRITIS W/O HEMORRHAGE 04/26/2007 - Allergic rhinitis 04/23/2012 - Anaphylactic reaction ideopathic - Benign tumor of adrenal gland - Biliary dyskinesia 10/29/2009 - Cervical herniated disc 10/20/2016 - Cervical myelopathy (HCC) 10/25/2016 - Cervical radiculitis 10/20/2016 - Cervical spondylosis with radiculopathy 11/17/2015 - JAIN ANGIOMA///NEVUS, NON-NEOPLASTIC 05/28/2007 - CKD (chronic kidney disease) stage 3, GFR 30-59 ml/min 04/29/2013 - Diaphragmatic hernia without mention of obstruction or gangrene 05/25/2011 - Diverticulosis of colon (without mention of hemorrhage) - Edema 07/07/2004 - Epigastric pain - GERD (gastroesophageal reflux disease) - HTN (hypertension) 2002 controlled on Diovan - Hyperlipidemia 10/15/2013 - IRON DEFIC ANEMIA NOS 04/26/2007 - Moderate persistent asthma without complication 02/18/2015 - Ovarian cyst Benign ovarian cyst, S/P laparoscopic LSO - Ptosis of eyelid, bilateral 12/23/2016 Added automatically from request for surgery [id number] - Shoulder impingement 11/17/2015 - Sleep apnea intollerant to CPAP because allergic to material on mask - Steroid-induced hyperglycemia 09/06/2014 - TACHYCARDIA NOS 01/09/2006 - Tarsal tunnel syndrome 12/23/2009 - Tear of lateral meniscus of knee 02/21/2014 - Ulcerative colitis, unspecified - UTERINE LEIOMYOMA NOS 12/23/2005 - VIRAL WARTS NOS 05/09/2006 - Vocal cord dysfunction PAST SURGICAL HISTORY Procedure Laterality Date - CHOLECYSTECTOMY HX - COLONOSCOP W/ OR W/O [facility] SPEC 09/06/2005 Colonoscopy - COLONOSCOP W/ OR W/O [facility] SPEC Colonoscopy - COLONOSCOP W/ OR W/O [facility] SPEC 05/28/2012 Colonoscopy repeat 5 years. - EGD 07/29/14 normal - EGD W/O OR W/BRUSH/WASH 09/06/2005 EGD - EGD W/O OR W/BRUSH/WASH 04/26/2007 EGD - EGD W/O OR W/BRUSH/WASH 05/25/2011 EGD - EGD W/O OR W/BRUSH/WASH 05/28/2012 EGD - L'SCOPE REM ADNEX W/PART/TOT OOPH/SALP 06/11/2009 Laparoscopic LSO for benign ovarian cyst - LAMINECTOMY,CERVICAL 10/2016 - LAP CHOLECYSTECT/CHOLANGIOGRAPHY 10/30/09 Normal IOC - ORTHOPEDICS SURGERY HX 12/2013 repaired Rt achilles tendon - PAST SURGICAL HISTORY OF 09/19 left foot surgery on heel and repaired torn tdndon - SIGMOIDOSCOPY FLEX DIAG 05/20/08 - TARSAL TUNNEL RELEASE 07/2010 Left foot Social History Marital status: Spouse name: Ezio Years of education: 14 Number of children: 3 Occupational History 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 Alive at 85. - Hypertension Father Alive at 85. - Cataract Father Alive at 85. - Thyroid Father Alive at 85. - Heart Father [place] at 87 - Diabetes Mother colon polyps. age 72. - Hypertension Mother age 72. - benign brainstem tumor [OTHER] Mother Persistent vegetative state. age 72. - defects Sister infant - Glaucoma Maternal Grandmother - Stroke Maternal Grandfather - Cancer Paternal Grandmother cervical - Colon Cancer Son 38 colon and rectal cancer - Breast Cancer Sister Developed in late 20s. Alive at 53. - Osteoporosis Sister - colon polyps [OTHER] Sister 3 sisters with colon polyps ALLERGIES Allergen Reactions - Avocado Anaphylaxis - Banana Anaphylaxis - Carbinoxamine Anaphylaxis - Yoselin Seed Anaphylaxis - Ciprofloxacin Anaphylaxis - Codeine Anaphylaxis - Contrast Dye Anaphylaxis To MRI and CT - Fish Anaphylaxis - Hycodan [Hydrocodon* Anaphylaxis Face and throat swelling - Latex Anaphylaxis - Imtiaz-Synephrine [Phe* Anaphylaxis 10% eye drop - Nickel Rash, Hives, Anaphylaxis - Nsaids (Non-Steroid* Other: See Comments Kidney function drops; reversible kidney damage. - Oxycodone Anaphylaxis - Periactin [Cyprohep* Anaphylaxis - Pneumococcal Vaccine Anaphylaxis - Shellfish Anaphylaxis - Zantac [Ranitidine] Anaphylaxis - Ativan [Lorazepam] Other: See Comments hallucination - Beef Containing Pro* Rash - Berino Other: See Comments Feels like an asthma attack. - Eggs [Egg] Rash, Vomiting - Ekg Leads [Adhesive] Rash Localized,only under the leads - Environmental [Othe* Other: See Comments Nasal congestion, brings on an asthma attack. - Influenza Virus Vac* Shortness of Breath - Lisinopril Cough - Milk Rash, Vomiting - Mometasone Anaphylaxis Per Dr. Salas she tolerates formoterol (on Breo at home) but is allergic to mometasone. Okayed by him to update. - Surgical Tape [Othe* Rash, Swelling Oral rash, swelling of eyes, asthma attacks; per pateint report. - Xolair [Omalizumab] Shortness of Breath CURRENT MEDICATIONS: cromolyn (INTAL) 20 mg/2 mL nebulizer solution Use 20 mg via nebulizer three times daily. EPINEPHrine (EPIPEN) 0.3 mg/0.3 mL auto-injector Inject 0.3 mL intramuscularly as needed. Inject full content of the syringe. famotidine (PEPCID) 20 mg tablet Take 1 tablet by mouth twice daily for 7 days. predniSONE (DELTASONE) 20 mg tablet Take 2 tablets by mouth once daily for 4 days. diphenhydrAMINE (BENADRYL) 25 mg tablet Take 1 tablet by mouth every 6 hours as needed for Itching/Rash. pregabalin (LYRICA) 150 mg capsule Take 1 capsule by mouth twice daily for 181 days. atorvastatin (LIPITOR) 20 mg tablet One tab on MWF only spironolactone (ALDACTONE) 50 mg tablet Take 1 tablet by mouth twice daily. lansoprazole (PREVACID) 30 mg capsule TAKE 1 CAPSULE TWICE A DAY bumetanide (BUMEX) 0.5 mg tablet Take 1 tablet by mouth once daily. nitroglycerin sublingual (NITROQUICK) 0.4 mg SL tablet DISSOLVE 1 TABLET UNDER THE TONGUE NEEDED FOR CHEST PAIN, IF NO RELIEF CALL 911 albuterol HFA (PROAIR HFA) 90 mcg/actuation inhaler Inhale 2 Puffs as instructed every 6 hours as needed for Wheezing/Shortness of Breath. fluticasone-vilanterol (BREO ELLIPTA) 100-25 mcg/dose inhaler Inhale 1 Inhalation as instructed once daily. levalbuterol (XOPENEX) 1.25 mg/3 mL nebulizer solution Use 1 Ampule via nebulizer every 4 hours as needed. Inhale over 5-15 minutes fluticasone (FLONASE) 50 mcg/actuation nasal spray 1-2 sprays each side qd budesonide (PULMICORT) 0.5 mg/2 mL nebulizer solution Use 1 Ampule via nebulizer twice daily. Azelastine 0.15 % (205.5 mcg) spry Use 1 Wilberforce in each nostril twice daily. COMPOUNDED PRESCRIPTION Nocturnal oximetry on room air. DME: [facility] cholestyramine-sucrose (QUESTRAN) 4 gram powder Take 1 scoop by mouth once daily. amLODIPine (NORVASC) 10 mg tablet Take 0.5 tablets by mouth once daily. cyanocobalamin (VITAMIN B-12) 1,000 mcg tab Take 1 tablet by mouth once daily. atenolol (TENORMIN) 25 mg tablet Take 1 tablet by mouth once daily. ergocalciferol, vitamin D2, (VITAMIN D) 50,000 unit capsule Take 1 capsule by mouth once each week. TURMERIC ROOT EXTRACT ORAL Take 1 tablet by mouth twice daily. crisaborole (EUCRISA) 2 % oint Apply to the hands twice daily COMPOUNDED PRESCRIPTION Please provide patient with nebulizer machine and supplies.Diagnosis: Severe Asthma. cetirizine (ZYRTEC) 10 mg tablet Take 10 mg by mouth once daily. pimecrolimus (ELIDEL) 1 % cream Apply twice daily to the hands ondansetron (ZOFRAN) 4 mg tablet Take 1 tablet by mouth every 8 hours as needed. Benzonatate 200 mg capsule Take 200 mg by mouth three times daily as needed for Cough. lactobacillus rhamnosus (CULTURELLE) 10 billion cell capsule Take 1 capsule by mouth twice daily. amoxicillin (POLYMOX, AMOXIL) 250 mg capsule Take 250 mg by mouth once daily. zafirlukast (ACCOLATE) 20 mg tablet Take 1 tablet by mouth twice daily. doxazosin (CARDURA) 2 mg tablet Take 2 mg by mouth once daily. cycloSPORINE Modified 50 mg capsule Take 50 mg by mouth twice daily. ascorbic acid (VITAMIN C) 500 mg tablet Take 1 tablet by mouth once daily. pregabalin (LYRICA) 150 mg capsule Take 1 capsule by mouth twice daily for 90 days. REVIEW OF SYSTEMS: GENERAL: No weight loss or malaise MUSCULOSKELETAL: Negative for joint pain, swelling or muscle pain NEURO: No history of headaches, syncope, paralysis, seizures or tremors OBJECTIVE PHYSICAL EXAM: Temp 36.6 ?C (97.8 ?F) Ht 162.6 cm (5' 4) Wt 96.6 kg (213 lb) LMP 08/07/2013 BMI 36.56 kg/m? GENERAL APPEARANCE: Moderately obese. NEURO PSYCH: Patient oriented to person, place, and time. Mood pleasant. Benign affect. CARDIOVASCULAR: Palpable pulses. No edema noted. No varicosities. SKIN: Head, neck, trunk, and extremities dry, intact and without lesions. LYMPHATICS: No palpable nodes in cervical or axillae areas. Groin exam deferred. MUSCULOSKELETAL VISUAL INSPECTION CERVICAL: WNL THORACIC: WNL LUMBAR: WNL PALPATION: SPINOUS PROCESS: No pain. PARASPINALS: No pain. SPINE ROM: LUMBAR ROM: Full ROM Without Pain CERVICAL ROM: Full ROM Without Pain MUSCLE BULK: Normal and symmetrical in the upper AND lower extremities. MUSCLE TONE: Normal. MOTOR: 5/5 in all muscle groups. SENSORY: Normal sensory exam GAIT: Normal. Heel walk, toe walk, duck walk and jump with good strength. REFLEXES: +2 to bilateral U/L extremities. PROPRIOCEPTION: Normal. LONG TRACT SIGNS: No clonus. No Hoffmans. BABINSKI: Downward response STRAIGHT LEG TEST: Ipsilateral: Negative. Contralateral: Negative. PERIPHERAL JOINT ROM: HIP ROM: Full ROM Without Pain SHOULDER ROM: Full ROM Without Pain L'HERMITTES SIGN: Negative on the right. Negative on the left. SPURLING'S TEST: Negative on the right. Negative on the left. ASSESSMENT/PLAN (M54.16) Lumbar radicular pain (primary encounter diagnosis) (T78.40XS) Allergy, unspecified, sequela Comment: 62 year old returning today for follow up seen clerical investigator who gave her script for 50mg IV benedryl and 60 mg solumedrol IV before procedure. Plan: PATIENT PLACED ON SPINE CARE PATH, CONSULT TO SPINE INTERVENTION scheduled today with Dr. Garza and included instructions on IV medications LESI in past was helpful for many years. Follow up in three months. SIGNATURE: Abelino Mcelroy APRN.CNP PATIENT NAME: Ralph Joshi DATE: September 26, 2017 TIME: 10:13 AM CNOV Observed: 09/26/2017 Status: COMPLETED Source: [place] 10:10 AM [facility] REPOSITORY Office Visit (SPMETW) RALPH OJSHI ([id number]) 1955 F Date Time Provider Department 09/26/17 10:10 AM ABELINO MCELROY (TISHA) SPMETW During your visit today, we recorded the following information about you: Temperature Weight Height 97.8 degrees 96.6 kg 1.626 m Abelino Mcelroy APRN.CNP 09/26/2017 10:41 AM Signed SPINE CARE PATH LOW BACK PAIN: CHRONIC FOLLOW UP SUBJECTIVE HISTORY OF PRESENT ILLNESS: Reason for Visit: chronic low back/both leg pain Ralph Joshi is seen for chronic low back pain and BL behind the leg pain. Behind both thighs and into calves and defers heels. Rates total pain today as 6/10, with worsening with laying down, sitting too long, walking is relieving to pain however only so long. Pain is worse at night due to laying down. PED RED FLAGS YELLOW AND BLUE FLAGS Yes: Provider notified No-Significant Injury to Spine No-Use of Steroids for Prolonged Duration No-Loss of Bowel/Bladder Control, Genital/Anal Numbness No-Recent Use of Intravenous (IV) Drugs No-Difficulty Keeping Balance when Walking No-Progressive Weakness in Arms/Legs No-History of Any Type of Cancer YES-Unable to Find Position of Comfort YES-Pain at Night that Disturbs Sleep No-Recent Elevated Temp with Unknown Cause No-Diagnosed with Osteoporosis No-Unintentional Weight Loss or Gain No-Neg Attitude; Back Pain is Disabling No-Avoiding Activity (for Fear of Pain) No-Depression or Anxiety Disorders No-Social Problems No-Substance Use Disorder No-Job Dissatisfaction No-Financial Disincentives *PED (Patient Entered Data) osteoporosis flag will display for females 55 years or older and males 75 years or older. ACTIVE PROBLEM LIST Adrenal Nodule (Hcc) Urge Incontinence Female Stress Incontinence Hirsutism Gerd (Gastroesophageal Reflux Disease) THONY (obstructive sleep apnea) Obesity (Bmi 30.0-34.9) Idiopathic anaphylaxis Hyperlipidemia Ldl Goal <100 Impaired Fasting Glucose Multinodular Goiter CKD (chronic kidney disease) stage 3, GFR 30-59 ml/min (HCC) Moderate Persistent Asthma Without Complication Ulcerative Colitis Without Complications (Hcc) Chronic Nausea Lumbar Stenosis Cervical Stenosis of Spine Claustrophobia Lumbar Spondylosis Preop Testing Anaphylaxis Essential Hypertension Peroneal Tendinitis, Left PAST MEDICAL HISTORY Diagnosis Date - Abdominal pain, other specified site - ACNE NEC 01/21/2008 - Actinic Keratosis (Premalignant AK) 06/05/2011 - ACUTE GASTRITIS W/O HEMORRHAGE 04/26/2007 - Allergic rhinitis 04/23/2012 - Anaphylactic reaction ideopathic - Benign tumor of adrenal gland - Biliary dyskinesia 10/29/2009 - Cervical herniated disc 10/20/2016 - Cervical myelopathy (HCC) 10/25/2016 - Cervical radiculitis 10/20/2016 - Cervical spondylosis with radiculopathy 11/17/2015 - JAIN ANGIOMA///NEVUS, NON-NEOPLASTIC 05/28/2007 - CKD (chronic kidney disease) stage 3, GFR 30-59 ml/min 04/29/2013 - Diaphragmatic hernia without mention of obstruction or gangrene 05/25/2011 - Diverticulosis of colon (without mention of hemorrhage) - Edema 07/07/2004 - Epigastric pain - GERD (gastroesophageal reflux disease) - HTN (hypertension) 2002 controlled on Diovan - Hyperlipidemia 10/15/2013 - IRON DEFIC ANEMIA NOS 04/26/2007 - Moderate persistent asthma without complication 02/18/2015 - Ovarian cyst Benign ovarian cyst, S/P laparoscopic LSO - Ptosis of eyelid, bilateral 12/23/2016 Added automatically from request for surgery [id number] - Shoulder impingement 11/17/2015 - Sleep apnea intollerant to CPAP because allergic to material on mask - Steroid-induced hyperglycemia 09/06/2014 - TACHYCARDIA NOS 01/09/2006 - Tarsal tunnel syndrome 12/23/2009 - Tear of lateral meniscus of knee 02/21/2014 - Ulcerative colitis, unspecified - UTERINE LEIOMYOMA NOS 12/23/2005 - VIRAL WARTS NOS 05/09/2006 - Vocal cord dysfunction PAST SURGICAL HISTORY Procedure Laterality Date - CHOLECYSTECTOMY HX - COLONOSCOP W/ OR W/O [facility] SPEC 09/06/2005 Colonoscopy - COLONOSCOP W/ OR W/O [facility] SPEC Colonoscopy - COLONOSCOP W/ OR W/O [facility] SPEC 05/28/2012 Colonoscopy repeat 5 years. - EGD 07/29/14 normal - EGD W/O OR W/BRUSH/WASH 09/06/2005 EGD - EGD W/O OR W/BRUSH/WASH 04/26/2007 EGD - EGD W/O OR W/BRUSH/WASH 05/25/2011 EGD - EGD W/O OR W/BRUSH/WASH 05/28/2012 EGD - L'SCOPE REM ADNEX W/PART/TOT OOPH/SALP 06/11/2009 Laparoscopic LSO for benign ovarian cyst - LAMINECTOMY,CERVICAL 10/2016 - LAP CHOLECYSTECT/CHOLANGIOGRAPHY 10/30/09 Normal IOC - ORTHOPEDICS SURGERY HX 12/2013 repaired Rt achilles tendon - PAST SURGICAL HISTORY OF 09/19 left foot surgery on heel and repaired torn tdndon - SIGMOIDOSCOPY FLEX DIAG 05/20/08 - TARSAL TUNNEL RELEASE 07/2010 Left foot Social History Marital status: Spouse name: Ezio Years of education: 14 Number of children: 3 Occupational History 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 Alive at 85. - Hypertension Father Alive at 85. - Cataract Father Alive at 85. - Thyroid Father Alive at 85. - Heart Father [place] at 87 - Diabetes Mother colon polyps. age 72. - Hypertension Mother age 72. - benign brainstem tumor [OTHER] Mother Persistent vegetative state. age 72. - defects Sister - Glaucoma Maternal Grandmother - Stroke Maternal Grandfather - Cancer Paternal Grandmother cervical - Colon Cancer Son 38 colon and rectal cancer - Breast Cancer Sister Developed in late 20s. Alive at 52. - Osteoporosis Sister - colon polyps [OTHER] Sister 3 sisters with colon polyps ALLERGIES Allergen Reactions - Avocado Anaphylaxis - Banana Anaphylaxis - Carbinoxamine Anaphylaxis - Yoselin Seed Anaphylaxis - Ciprofloxacin Anaphylaxis - Codeine Anaphylaxis - Contrast Dye Anaphylaxis To MRI and CT - Fish Anaphylaxis - Hycodan [Hydrocodon* Anaphylaxis Face and throat swelling - Latex Anaphylaxis - Imtiaz-Synephrine [Phe* Anaphylaxis 10% eye drop - Nickel Rash, Hives, Anaphylaxis - Nsaids (Non-Steroid* Other: See Comments Kidney function drops; reversible kidney damage. - Oxycodone Anaphylaxis - Periactin [Cyprohep* Anaphylaxis - Pneumococcal Vaccine Anaphylaxis - Shellfish Anaphylaxis - Zantac [Ranitidine] Anaphylaxis - Ativan [Lorazepam] Other: See Comments hallucination - Beef Containing Pro* Rash - Berino Other: See Comments Feels like an asthma attack. - Eggs [Egg] Rash, Vomiting - Ekg Leads [Adhesive] Rash Localized,only under the leads - Environmental [Othe* Other: See Comments Nasal congestion, brings on an asthma attack. - Influenza Virus Vac* Shortness of Breath - Lisinopril Cough - Milk Rash, Vomiting - Mometasone Anaphylaxis Per Dr. Salas she tolerates formoterol (on Breo at home) but is allergic to mometasone. Okayed by him to update. - Surgical Tape [Othe* Rash, Swelling Oral rash, swelling of eyes, asthma attacks; per pateint report. - Xolair [Omalizumab] Shortness of Breath CURRENT MEDICATIONS: cromolyn (INTAL) 20 mg/2 mL nebulizer solution Use 20 mg via nebulizer three times daily. EPINEPHrine (EPIPEN) 0.3 mg/0.3 mL auto-injector Inject 0.3 mL intramuscularly as needed. Inject full content of the syringe. famotidine (PEPCID) 20 mg tablet Take 1 tablet by mouth twice daily for 7 days. predniSONE (DELTASONE) 20 mg tablet Take 2 tablets by mouth once daily for 4 days. diphenhydrAMINE (BENADRYL) 25 mg tablet Take 1 tablet by mouth every 6 hours as needed for Itching/Rash. pregabalin (LYRICA) 150 mg capsule Take 1 capsule by mouth twice daily for 181 days. atorvastatin (LIPITOR) 20 mg tablet One tab on MWF only spironolactone (ALDACTONE) 50 mg tablet Take 1 tablet by mouth twice daily. lansoprazole (PREVACID) 30 mg capsule TAKE 1 CAPSULE TWICE A DAY bumetanide (BUMEX) 0.5 mg tablet Take 1 tablet by mouth once daily. nitroglycerin sublingual (NITROQUICK) 0.4 mg SL tablet DISSOLVE 1 TABLET UNDER THE TONGUE NEEDED FOR CHEST PAIN, IF NO RELIEF CALL 911 albuterol HFA (PROAIR HFA) 90 mcg/actuation inhaler Inhale 2 Puffs as instructed every 6 hours as needed for Wheezing/Shortness of Breath. fluticasone-vilanterol (BREO ELLIPTA) 100-25 mcg/dose inhaler Inhale 1 Inhalation as instructed once daily. levalbuterol (XOPENEX) 1.25 mg/3 mL nebulizer solution Use 1 Ampule via nebulizer every 4 hours as needed. Inhale over 5-15 minutes fluticasone (FLONASE) 50 mcg/actuation nasal spray 1-2 sprays each side qd budesonide (PULMICORT) 0.5 mg/2 mL nebulizer solution Use 1 Ampule via nebulizer twice daily. Azelastine 0.15 % (205.5 mcg) spry Use 1 Wilberforce in each nostril twice daily. COMPOUNDED PRESCRIPTION Nocturnal oximetry on room air. DME: [facility] cholestyramine-sucrose (QUESTRAN) 4 gram powder Take 1 scoop by mouth once daily. amLODIPine (NORVASC) 10 mg tablet Take 0.5 tablets by mouth once daily. cyanocobalamin (VITAMIN B-12) 1,000 mcg tab Take 1 tablet by mouth once daily. atenolol (TENORMIN) 25 mg tablet Take 1 tablet by mouth once daily. ergocalciferol, vitamin D2, (VITAMIN D) 50,000 unit capsule Take 1 capsule by mouth once each week. TURMERIC ROOT EXTRACT ORAL Take 1 tablet by mouth twice daily. crisaborole (EUCRISA) 2 % oint Apply to the hands twice daily COMPOUNDED PRESCRIPTION Please provide patient with nebulizer machine and supplies.Diagnosis: Severe Asthma. cetirizine (ZYRTEC) 10 mg tablet Take 10 mg by mouth once daily. pimecrolimus (ELIDEL) 1 % cream Apply twice daily to the hands ondansetron (ZOFRAN) 4 mg tablet Take 1 tablet by mouth every 8 hours as needed. Benzonatate 200 mg capsule Take 200 mg by mouth three times daily as needed for Cough. lactobacillus rhamnosus (CULTURELLE) 10 billion cell capsule Take 1 capsule by mouth twice daily. amoxicillin (POLYMOX, AMOXIL) 250 mg capsule Take 250 mg by mouth once daily. zafirlukast (ACCOLATE) 20 mg tablet Take 1 tablet by mouth twice daily. doxazosin (CARDURA) 2 mg tablet Take 2 mg by mouth once daily. cycloSPORINE Modified 50 mg capsule Take 50 mg by mouth twice daily. ascorbic acid (VITAMIN C) 500 mg tablet Take 1 tablet by mouth once daily. pregabalin (LYRICA) 150 mg capsule Take 1 capsule by mouth twice daily for 90 days. REVIEW OF SYSTEMS: GENERAL: No weight loss or malaise MUSCULOSKELETAL: Negative for joint pain, swelling or muscle pain NEURO: No history of headaches, syncope, paralysis, seizures or tremors OBJECTIVE PHYSICAL EXAM: Temp 36.6 ?C (97.8 ?F) Ht 162.6 cm (5' 4) Wt 96.6 kg (213 lb) LMP 08/07/2013 BMI 36.56 kg/m? GENERAL APPEARANCE: Moderately obese. NEURO PSYCH: Patient oriented to person, place, and time. Mood pleasant. Benign affect. CARDIOVASCULAR: Palpable pulses. No edema noted. No varicosities. SKIN: Head, neck, trunk, and extremities dry, intact and without lesions. LYMPHATICS: No palpable nodes in cervical or axillae areas. Groin exam deferred. MUSCULOSKELETAL VISUAL INSPECTION CERVICAL: WNL THORACIC: WNL LUMBAR: WNL PALPATION: SPINOUS PROCESS: No pain. PARASPINALS: No pain. SPINE ROM: LUMBAR ROM: Full ROM Without Pain CERVICAL ROM: Full ROM Without Pain MUSCLE BULK: Normal and symmetrical in the upper AND lower extremities. MUSCLE TONE: Normal. MOTOR: 5/5 in all muscle groups. SENSORY: Normal sensory exam GAIT: Normal. Heel walk, toe walk, duck walk and jump with good strength. REFLEXES: +2 to bilateral U/L extremities. PROPRIOCEPTION: Normal. LONG TRACT SIGNS: No clonus. No Hoffmans. BABINSKI: Downward response STRAIGHT LEG TEST: Ipsilateral: Negative. Contralateral: Negative. PERIPHERAL JOINT ROM: HIP ROM: Full ROM Without Pain SHOULDER ROM: Full ROM Without Pain L'HERMITTES SIGN: Negative on the right. Negative on the left. SPURLING'S TEST: Negative on the right. Negative on the left. ASSESSMENT/PLAN (M54.16) Lumbar radicular pain (primary encounter diagnosis) (T78.40XS) Allergy, unspecified, sequela Comment: 62 year old returning today for follow up seen clerical investigator who gave her script for 50mg IV benedryl and 60 mg solumedrol IV before procedure. Plan: PATIENT PLACED ON SPINE CARE PATH, CONSULT TO SPINE INTERVENTION scheduled today with Dr. Garza and included instructions on IV medications LESI in past was helpful for many years. Follow up in three months. SIGNATURE: Abelino Mcelroy APRN.TISHA PATIENT NAME: Ralph Joshi DATE: September 26, 2017 TIME: 10:13 AM Abelino Mcelroy APRN.CIRCUIT RECORDER 09/26/2017 10:13 AM Signed Chronic Low Back Pain Overview: ? Eighty to 90 percent of people in the [place] will experience an episode of back pain at some time during their lives. ? Chronic back pain refers to an episode of pain that lasts longer than 12 weeks. ? Many times, a specific structural explanation for the pain is not found but medical treatment can successfully improve symptoms and allow return to normal activities. ? In the absence of major structural deformity, surgery is unlikely to be helpful in relieving back pain. Treatment: ? Back pain is almost always best treated with conservative (non-surgical) measures. ? Prolonged bed rest is not recommended and generally should not exceed 24-48 hours. Gradually resuming normal activities as soon as you are able is best. ? Your physician may recommend physical therapy to customize an active exercise program which will speed your recovery. ? Over the counter, non-prescription pain relievers such as acetaminophen (Tylenol) and ibuprofen may be used in your treatment of pain. Your physician may prescribe a non-steroidal anti-inflammatory drug (NSAID) to use as an alternative. ? Other medications, particularly antidepressants, may be prescribed for pain relief even in the absence of depression. ? Yoga, acupuncture, and massage are helpful in some persons with chronic back pain. ? Opioid or narcotic medications are not recommended, and you should refrain from the use of such medications. In fact, use of these drugs may prolong the amount of time it takes for you to recover. ? Spinal epidural injections (blocks) are not recommended for treatment of back pain. Injection of spinal joints (facets) is rarely recommended for treatment of spinal arthritis pain. Follow Up ? See your health care provider if: ? You experience fever ? The pain progressively worsens ? The pain progressively moves from your back into your leg(s) ? You notice progressive weakness in your legs ? You experience problems in your balance or walking ? You notice difficulty controlling your bowels or bladder These are warning signs or red flags that require prompt, urgent medical attention. For more information on low back pain, visit our website at [email or web address] and search lower back pain. SIGNATURE: Abelino Mcelroy APRN.[facility] PATIENT NAME: Ralph Joshi DATE: September 26, 2017 TIME: 10:13 AM Referring Provider: ABELINO MCELROY ([facility]) [[id number]] Allergies As of Date: 09/26/2017 Noted Allergy Reaction AVOCADO 09/10/2014 10 - Anaphylaxis BANANA 09/10/2014 10 - Anaphylaxis CARBINOXAMINE 09/17/2012 10 - Anaphylaxis YOSELIN SEED 08/28/2013 10 - Anaphylaxis CIPROFLOXACIN 04/11/2014 10 - Anaphylaxis CODEINE 01/12/2012 10 - Anaphylaxis CONTRAST DYE 05/17/2013 10 - Anaphylaxis Comments: To MRI and CT FISH 09/07/2014 10 - Anaphylaxis HYCODAN (HYDROCODONE-HOMATROPINE) 09/08/2011 10 - Anaphylaxis Comments: Face and throat swelling LATEX 01/21/2014 10 - Anaphylaxis IMTIAZ-SYNEPHRINE (PHENYLEPHRINE HCL)09/04/2014 10 - Anaphylaxis Comments: 10% eye drop NICKEL 01/07/2014 2 - Rash 4 - Hives 10 - Anaphylaxis NSAIDS (NON-STEROIDAL ANTI-INFLAM*08/16/2010 14 - Other: See Comments Comments: Kidney function drops; reversible kidney damage. OXYCODONE 08/28/2013 10 - Anaphylaxis PERIACTIN (CYPROHEPTADINE) 09/17/2012 10 - Anaphylaxis PNEUMOCOCCAL VACCINE 10/31/2014 10 - Anaphylaxis SHELLFISH 09/07/2014 10 - Anaphylaxis ZANTAC (RANITIDINE) 09/17/2012 10 - Anaphylaxis ATIVAN (LORAZEPAM) 08/28/2013 14 - Other: See Comments Comments: hallucination BEEF CONTAINING PRODUCTS 09/10/2014 2 - Rash CORN 05/03/2011 14 - Other: See Comments Comments: Feels like an asthma attack. EGGS (EGG) 03/08/2011 2 - Rash 11 - Vomiting EKG LEADS (ADHESIVE) 10/22/2012 2 - Rash Comments: Localized,only under the leads environmental [Other] 06/26/2007 14 - Other: See Comments Comments: Nasal congestion, brings on an asthma attack. INFLUENZA VIRUS VACCINES 10/22/2012 12 - Shortness of Breath LISINOPRIL 04/20/2004 3 - Cough MILK 03/08/2011 2 - Rash 11 - Vomiting MOMETASONE 04/05/2017 10 - Anaphylaxis Comments: Per Dr. Salas she tolerates formoterol (on Breo at home) but is allergic to mometasone. Okayed by him to update. surgical tape [Other] 11/10/2009 2 - Rash 7 - Swelling Comments: Oral rash, swelling of eyes, asthma attacks; per pateint report. XOLAIR (OMALIZUMAB) 04/19/2012 12 - Shortness of Breath Date Reviewed: 09/26/2017 Reviewed by: Cris Avendaño Ma - Fully Assessed Reason for Visit: Follow Up [171] Cmt: Back Primary Visit Diagnosis:Lumbar radicular pain [M54.16] Other Visit Diagnosis:Allergy, unspecified, sequela [T78.40XS] Order(s):PATIENT PLACED ON SPINE CARE PATH [[id number]] Order #: [id number]: 1 CONSULT TO SPINE INTERVENTION [[id number]] Order #: [id number]: 1 Prescriptions as of 09/26/2017 Sig: CROMOLYN 20 MG/2 ML SOLUTION * Use 20 mg via nebulizer three* EPINEPHRINE 0.3 MG/0.3 ML INJ* Inject 0.3 mL intramuscularly* FAMOTIDINE 20 MG TABLET Take 1 tablet by mouth twice * PREDNISONE 20 MG TABLET Take 2 tablets by mouth once * DIPHENHYDRAMINE 25 MG TABLET Take 1 tablet by mouth every * PREGABALIN 150 MG CAPSULE Take 1 capsule by mouth twice* ATORVASTATIN 20 MG TABLET One tab on MWF only SPIRONOLACTONE 50 MG TABLET Take 1 tablet by mouth twice * LANSOPRAZOLE 30 MG CAPSULE,DE* TAKE 1 CAPSULE TWICE A DAY BUMETANIDE 0.5 MG TABLET Take 1 tablet by mouth once d* NITROGLYCERIN 0.4 MG SUBLINGU* DISSOLVE 1 TABLET UNDER THE T* ALBUTEROL SULFATE HFA 90 MCG/* Inhale 2 Puffs as instructed * FLUTICASONE 100 MCG-VILANTERO* Inhale 1 Inhalation as instru* Patient taking differently: Inhale 2 Inhalation as instru* LEVALBUTEROL 1.25 MG/3 ML BRENDA* Use 1 Ampule via nebulizer ev* FLUTICASONE 50 MCG/ACTUATION * 1-2 sprays each side qd BUDESONIDE 0.5 MG/2 ML SUSPEN* Use 1 Ampule via nebulizer tw* AZELASTINE 0.15 % (205.5 MCG)* Use 1 Wilberforce in each nostril t* COMPOUNDED PRESCRIPTION Nocturnal oximetry on room ai* CHOLESTYRAMINE (WITH SUGAR) 4* Take 1 scoop by mouth once da* AMLODIPINE 10 MG TABLET Take 0.5 tablets by mouth onc* CYANOCOBALAMIN (VIT B-12) 1,0* Take 1 tablet by mouth once d* ATENOLOL 25 MG TABLET Take 1 tablet by mouth once d* ERGOCALCIFEROL (VITAMIN D2) 5* Take 1 capsule by mouth once * Patient taking differently: Take 50,000 Units by mouth on* X PREDNISONE 10 MG TABLET Take 2.5 tablets by mouth onc* Patient taking differently: Take 25 mg by mouth once mary ellen* TURMERIC ROOT EXTRACT ORAL Take 1 tablet by mouth twice * CRISABOROLE 2 % TOPICAL OINTM* Apply to the hands twice daily COMPOUNDED PRESCRIPTION Please provide patient with n* CETIRIZINE 10 MG TABLET Take 10 mg by mouth once mary ellen* PIMECROLIMUS 1 % TOPICAL CREAM Apply twice daily to the hands ONDANSETRON HCL 4 MG TABLET Take 1 tablet by mouth every * BENZONATATE 200 MG CAPSULE Take 200 mg by mouth three ti* LACTOBACILLUS RHAMNOSUS GG 10* Take 1 capsule by mouth twice* AMOXICILLIN 250 MG CAPSULE Take 250 mg by mouth once liam* ZAFIRLUKAST 20 MG TABLET Take 1 tablet by mouth twice * DOXAZOSIN 2 MG TABLET Take 2 mg by mouth once daily. CYCLOSPORINE MODIFIED 50 MG C* Take 50 mg by mouth twice liam* ASCORBIC ACID (VITAMIN C) 500* Take 1 tablet by mouth once d* X ALBUTEROL SULFATE 2.5 MG/3 ML* Use 3 mL via nebulizer one ti* PREGABALIN 150 MG CAPSULE Take 1 capsule by mouth twice* X EPINEPHRINE 0.3 MG/0.3 ML INJ* Inject 0.3 mL intramuscularly* X FAMOTIDINE 20 MG TABLET Take 1 tablet by mouth twice * Patient taking differently: Take 20 mg by mouth twice liam* X DIPHENHYDRAMINE 50 MG CAPSULE Take 1 capsule by mouth every* Problem List As Of Date 09/26/2017 Noted Resolved JOINT PAIN-ANKLE [M25.579] INVALID FOR*03/20/2014 Edema [R60.9] INVALID FOR*03/28/2016 Priority: I Adrenal nodule (HCC) [E27.9] INVALID FOR* More... Diarrhea [R19.7] INVALID FOR*10/15/2013 Excessive or frequent menstruation [N92.0] INVALID FOR*07/14/2011 Shortness of breath [R06.02] INVALID FOR*10/15/2013 Palpitations [R00.2] INVALID FOR*03/20/2014 Tachycardia, unspecified [R00.0] INVALID FOR*10/15/2013 More... Open wound site NOS [T14.8XXA] INVALID FOR*07/16/2011 Abdominal pain, right upper quadrant [R10.11] INVALID FOR*07/14/2011 More... Acute gastritis without mention of hemorrhage [*INVALID FOR*10/15/2013 Hematuria [599.7] INVALID FOR*07/14/2011 URGE INCONTINENCE [N39.41] INVALID FOR* FEMALE STRESS INCONTINENCE [N39.3] INVALID FOR* Scar, hypertrophic [L91.0] INVALID FOR*10/15/2013 Ovarian cyst [N83.209] INVALID FOR*07/06/2010 Cyst INVALID FOR*10/15/2013 Other specified pre-operative examination [Z01.*INVALID FOR*07/16/2011 Hirsutism [L68.0] INVALID FOR* Dysphagia [R13.10] INVALID FOR*03/20/2014 GERD (gastroesophageal reflux disease) [K21.9] INVALID FOR* Priority: D More... 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 Obesity (BMI 30.0-34.9) [E66.9] INVALID FOR* More... More... More... More... Idiopathic anaphylaxis [T78.2XXA] INVALID FOR* Priority: A More... Urticaria, idiopathic [L50.1] INVALID FOR*03/28/2016 More... Hyperlipidemia LDL goal <100 [E78.5] INVALID FOR* Impaired fasting glucose [R73.01] INVALID FOR* Recurrent chest pain [R07.9, G89.29] INVALID FOR*12/09/2014 Multinodular goiter [E04.2] INVALID FOR* More... CKD (chronic kidney disease) stage 3, GFR 30-59*INVALID FOR* Pain in joint, ankle and foot [M25.579] INVALID FOR*12/09/2014 More... More... Steroid-induced hyperglycemia [R73.9, T38.0X5A] INVALID FOR*03/28/2016 Priority: C Moderate persistent asthma without complication*INVALID FOR* Ulcerative colitis without complications (HCC) *INVALID FOR* Anaphylaxis [T78.2XXA] INVALID FOR*03/26/2015 More... Neck pain, bilateral [M54.2] INVALID FOR*03/28/2016 Essential hypertension with goal blood pressure*INVALID FOR*03/28/2016 Chronic nausea [R11.0] INVALID FOR* Lumbar radiculitis [M54.16] INVALID FOR*03/28/2016 Lumbar stenosis [M48.061] INVALID FOR*03/28/2016 Acquired spondylolisthesis [M43.10] INVALID FOR*03/28/2016 Cervical radiculitis [M54.12] INVALID FOR*03/28/2016 Cervical spondylosis with radiculopathy [M47.22]INVALID FOR*03/29/2017 Shoulder impingement [M75.40] INVALID FOR*03/28/2016 Anaphylaxis [T78.2XXA] INVALID FOR*03/28/2016 Tendonitis, tibialis [M76.829] INVALID FOR*05/09/2016 Lumbar stenosis [M48.061] INVALID FOR* Cervical radiculitis [M54.12] INVALID FOR*03/29/2017 Cervical herniated disc [M50.20] INVALID FOR*03/29/2017 Cervical stenosis of spine [M48.02] INVALID FOR* Cervical spondylosis with myelopathy [M47.12] INVALID FOR*03/29/2017 Cervical myelopathy (HCC) [G95.9] INVALID FOR*03/29/2017 Claustrophobia [F40.240] INVALID FOR* Ptosis of eyelid, bilateral [H02.403] INVALID FOR*03/29/2017 More... Lumbar spondylosis [M47.816] INVALID FOR* More... Preop testing [Z01.818] INVALID FOR* More... Anaphylaxis [T78.2XXA] INVALID FOR* Essential hypertension [I10] INVALID FOR* Peroneal tendinitis, left [M76.72] INVALID FOR* Other instructions from your clinician: Chronic Low Back Pain Overview: ? Eighty to 90 percent of people in the [place] will experience an episode of back pain at some time during their lives. ? Chronic back pain refers to an episode of pain that lasts longer than 12 weeks. ? Many times, a specific structural explanation for the pain is not found but medical treatment can successfully improve symptoms and allow return to normal activities. ? In the absence of major structural deformity, surgery is unlikely to be helpful in relieving back pain. Treatment: ? Back pain is almost always best treated with conservative (non-surgical) measures. ? Prolonged bed rest is not recommended and generally should not exceed 24-48 hours. Gradually resuming normal activities as soon as you are able is best. ? Your physician may recommend physical therapy to customize an active exercise program which will speed your recovery. ? Over the counter, non-prescription pain relievers such as acetaminophen (Tylenol) and ibuprofen may be used in your treatment of pain. Your physician may prescribe a non-steroidal anti-inflammatory drug (NSAID) to use as an alternative. ? Other medications, particularly antidepressants, may be prescribed for pain relief even in the absence of depression. ? Yoga, acupuncture, and massage are helpful in some persons with chronic back pain. ? Opioid or narcotic medications are not recommended, and you should refrain from the use of such medications. In fact, use of these drugs may prolong the amount of time it takes for you to recover. ? Spinal epidural injections (blocks) are not recommended for treatment of back pain. Injection of spinal joints (facets) is rarely recommended for treatment of spinal arthritis pain. Follow Up ? See your health care provider if: ? You experience fever ? The pain progressively worsens ? The pain progressively moves from your back into your leg(s) ? You notice progressive weakness in your legs ? You experience problems in your balance or walking ? You notice difficulty controlling your bowels or bladder These are warning signs or red flags that require prompt, urgent medical attention. For more information on low back pain, visit our website at [email or web address] and search lower back pain. SIGNATURE: Abelino Mcelroy APRN.CIRCUIT RECORDER PATIENT NAME: Ralph Joshi DATE: September 26, 2017 TIME: 10:13 AM Disposition: Return in about 3 months (around 12/27/2017). Follow-up and Disposition History Recorded Encounter Status:Closed by ABELINO MCELROY on 09/26/17 ED PROV NOTE Observed: 09/25/2017 Status: COMPLETED Source: [place] 2:57 PM CLINIC OTHER CAMPUS REPOSITORY O ID: [id number] Author: Justen Nguyen DO Service: Emergency Medicine Author Type: Physician Type: ED Provider Notes Filed: 09/26/2017 7:14 AM Note Text: ED Provider Note Patient Name: Ralph Joshi SERVICE DATE: 09/25/17 History Patient presents with: Allergic Reaction Insect Bite 62-year-old female past medical history of hypertension presents with reported anaphylaxis. Patient reportedly has a severe allergy to bees and this morning she was stung in the left forehead by a bee. She immediately had sensation that her throat was closing developed diffuse urticarial rash. She was given 2 epinephrine pens by her prior to EMS arrival. Upon EMS arrival she was treated with Solu-Medrol and Benadryl as well as a Benadryl. Upon arrival she reports significant improvement of symptoms. She denies any chest pain. She reports minimal dyspnea which is continuous worsened and relieved by nothing. PAST MEDICAL HISTORY Diagnosis Date - Abdominal pain, other specified site - ACNE NEC 01/21/2008 - Actinic Keratosis (Premalignant AK) 06/05/2011 - ACUTE GASTRITIS W/O HEMORRHAGE 04/26/2007 - Allergic rhinitis 04/23/2012 - Anaphylactic reaction ideopathic - Benign tumor of adrenal gland - Biliary dyskinesia 10/29/2009 - Cervical herniated disc 10/20/2016 - Cervical myelopathy (HCC) 10/25/2016 - Cervical radiculitis 10/20/2016 - Cervical spondylosis with radiculopathy 11/17/2015 - JAIN ANGIOMA///NEVUS, NON-NEOPLASTIC 05/28/2007 - CKD (chronic kidney disease) stage 3, GFR 30-59 ml/min 04/29/2013 - Diaphragmatic hernia without mention of obstruction or gangrene 05/25/2011 - Diverticulosis of colon (without mention of hemorrhage) - Edema 07/07/2004 - Epigastric pain - GERD (gastroesophageal reflux disease) - HTN (hypertension) 2002 controlled on Diovan - Hyperlipidemia 10/15/2013 - IRON DEFIC ANEMIA NOS 04/26/2007 - Moderate persistent asthma without complication 02/18/2015 - Ovarian cyst Benign ovarian cyst, S/P laparoscopic LSO - Ptosis of eyelid, bilateral 12/23/2016 Added automatically from request for surgery [id number] - Shoulder impingement 11/17/2015 - Sleep apnea intollerant to CPAP because allergic to material on mask - Steroid-induced hyperglycemia 09/06/2014 - TACHYCARDIA NOS 01/09/2006 - Tarsal tunnel syndrome 12/23/2009 - Tear of lateral meniscus of knee 02/21/2014 - Ulcerative colitis, unspecified - UTERINE LEIOMYOMA NOS 12/23/2005 - VIRAL WARTS NOS 05/09/2006 - Vocal cord dysfunction PAST SURGICAL HISTORY Procedure Laterality Date - CHOLECYSTECTOMY HX - COLONOSCOP W/ OR W/O [facility] SPEC 09/06/2005 Colonoscopy - COLONOSCOP W/ OR W/O [facility] SPEC Colonoscopy - COLONOSCOP W/ OR W/O [facility] SPEC 05/28/2012 Colonoscopy repeat 5 years. - EGD 07/29/14 normal - EGD W/O OR W/BRUSH/WASH 09/06/2005 EGD - EGD W/O OR W/BRUSH/WASH 04/26/2007 EGD - EGD W/O OR W/BRUSH/WASH 05/25/2011 EGD - EGD W/O OR W/BRUSH/WASH 05/28/2012 EGD - L'SCOPE REM ADNEX W/PART/TOT OOPH/SALP 06/11/2009 Laparoscopic LSO for benign ovarian cyst - LAMINECTOMY,CERVICAL 10/2016 - LAP CHOLECYSTECT/CHOLANGIOGRAPHY 10/30/09 Normal IOC - ORTHOPEDICS SURGERY HX 12/2013 repaired Rt achilles tendon - PAST SURGICAL HISTORY OF 09/19 left foot surgery on heel and repaired torn tdndon - SIGMOIDOSCOPY FLEX DIAG 05/20/08 - TARSAL TUNNEL RELEASE 07/2010 Left foot FAMILY HISTORY Problem Relation Age of Onset - Colon Cancer Father dx age 60. Alive at 85. - Hypertension Father Alive at 85. - Cataract Father Alive at 85. - Thyroid Father Alive at 85. - Heart Father [place] at 87 - Diabetes Mother colon polyps. age 72. - Hypertension Mother age 72. - benign brainstem tumor [OTHER] Mother Persistent vegetative state. age 72. - defects Sister - Glaucoma Maternal Grandmother - Stroke Maternal Grandfather - Cancer Paternal Grandmother cervical - Colon Cancer Son 38 colon and rectal cancer - Breast Cancer Sister Developed in late 20s. Alive at 52. - Osteoporosis Sister - colon polyps [OTHER] Sister 3 sisters with colon polyps Social History Social History Main Topics - Smoking status: Never Smoker - Smokeless tobacco: Never Used - Alcohol use No - Drug use: No - Sexual activity: Yes Partners: Male control/ protection: Condom ALLERGIES Allergen Reactions - Avocado Anaphylaxis - Banana Anaphylaxis - Carbinoxamine Anaphylaxis - Yoselin Seed Anaphylaxis - Ciprofloxacin Anaphylaxis - Codeine Anaphylaxis - Contrast Dye Anaphylaxis To MRI and CT - Fish Anaphylaxis - Hycodan [Hydrocodon* Anaphylaxis Face and throat swelling - Latex Anaphylaxis - Imtiaz-Synephrine [Phe* Anaphylaxis 10% eye drop - Nickel Rash, Hives, Anaphylaxis - Nsaids (Non-Steroid* Other: See Comments Kidney function drops; reversible kidney damage. - Oxycodone Anaphylaxis - Periactin [Cyprohep* Anaphylaxis - Pneumococcal Vaccine Anaphylaxis - Shellfish Anaphylaxis - Zantac [Ranitidine] Anaphylaxis - Ativan [Lorazepam] Other: See Comments hallucination - Beef Containing Pro* Rash - Berino Other: See Comments Feels like an asthma attack. - Eggs [Egg] Rash, Vomiting - Ekg Leads [Adhesive] Rash Localized,only under the leads - Environmental [Othe* Other: See Comments Nasal congestion, brings on an asthma attack. - Influenza Virus Vac* Shortness of Breath - Lisinopril Cough - Milk Rash, Vomiting - Mometasone Anaphylaxis Per Dr. Salas she tolerates formoterol (on Breo at home) but is allergic to mometasone. Okayed by him to update. - Surgical Tape [Othe* Rash, Swelling Oral rash, swelling of eyes, asthma attacks; per pateint report. - Xolair [Omalizumab] Shortness of Breath Review of Systems Constitutional: Negative. HENT: Negative. Eyes: Negative. Respiratory: Negative. Cardiovascular: Negative. Gastrointestinal: Negative. Genitourinary: Negative. Musculoskeletal: Negative. Skin: Negative. Neurological: Negative. Psychiatric/Behavioral: Negative. Physical Exam BP 142/78 Pulse 120 Resp 16 Wt 198 lb (89.8kg) SpO2 95% LMP 08/07/2013 Physical Exam Constitutional: She is oriented to person, place, and time. She appears well-developed and well-nourished. HENT: Head: Normocephalic and atraumatic. Eyes: Conjunctivae and EOM are normal. Pupils are equal, round, and reactive to light. No scleral icterus. Neck: Normal range of motion. Neck supple. Cardiovascular: Normal rate, regular rhythm, normal heart sounds and intact distal pulses. Exam reveals no gallop and no friction rub. No murmur heard. Pulmonary/Chest: Effort normal and breath sounds normal. No respiratory distress. She has no wheezes. She has no rales. She exhibits no tenderness. Abdominal: Soft. Bowel sounds are normal. She exhibits no distension and no mass. There is no tenderness. There is no rebound and no guarding. Musculoskeletal: Normal range of motion. She exhibits no edema or tenderness. Lymphadenopathy: She has no cervical adenopathy. Neurological: She is alert and oriented to person, place, and time. No cranial nerve deficit. Skin: Skin is warm and dry. No rash noted. No erythema. Psychiatric: She has a normal mood and affect. Her behavior is normal. Nursing note and vitals reviewed. Diagnostic Testing ED Labs Ordered and Reviewed - No data to display Procedures Medical Decision Making IV started Nursing notes and vital signs reviewed Triage note reviewed Placed on inspector machine cut glass Medications administered Zofran and Benadryl DuoNeb albuterol Pepcid Tachycardic upon arrival hypertensive remainder vitals unremarkable. Patient without urticarial rash stridor or wheezing or any evidence of facial swelling. Treated with additional Benadryl DuoNeb albuterol Pepcid and Zofran. Monitored in the emergency department for a prolonged period of time, over 4 hours with continued resolution of any evidence of anaphylaxis. Patient arrived tachycardic with tachycardia improving upon serial reexaminations. She'll be discharged home in stable condition with immediate return with any new or worsening or concerning symptoms. She'll be given short course of prednisone Pepcid and Benadryl for the next 4/5 days and also receive additional prescriptions for EpiPen's, indications for administered aeration reviewed with patient and spouse. Follow-up with PCP within one?2 days. Patient and spouse updated and agreeable to current plan of care. All questions answered bedside. Discharge home. [facility] ED Course / Clinical Impression Clinical Impressions as of Sep 26 1715 Allergic reaction, initial encounter Plan The patient was DISCHARGED: Counseled patient and spouse regarding need for follow-up. Discharged home with verbal and written instructions. They were instructed to return as needed for persistent or worsening symptoms or any new concerns. Given a prescription for the following medication(s): benadryl pepcid prednisone Condition at time of disposition: improved and stable SIGNATURE: DO Justen Potter DO 09/26/17 0714 ED NOTE Observed: 09/25/2017 Status: COMPLETED Source: [place] 2:56 PM [facility] REPOSITORY HNO ID: [id number] Author: Neisha Storey) JONATHAN Sen Service: (none) Author Type: Registered Nurse Type: ED Notes Filed: 09/25/2017 2:57 PM Note Text: Pt up for discharge, pt verbalizes understanding of discharge instructions. Teach back method use. Pt discharged from ER with out further questions for the nurse. ED NOTE Observed: 09/25/2017 Status: COMPLETED Source: [place] 10:41 AM [facility] REPOSITORY HNO ID: [id number] Author: Neisha Storey) JONATHAN Sen Service: (none) Author Type: Registered Nurse Type: ED Notes Filed: 09/25/2017 10:43 AM Note Text: Pt to ED today CC of an anaphylactic reaction to a bee sting while driving. She administered 2 Epi pens prior to EMS arrival. EMS arrived and gave her another epi pen along with 125mg of Solumedrol, 25mg of Benadryl and 1 breathing treatment. Pt sts she is starting to feel releif. Epi pen bedside in ED if needed. supervisor fruit grading and pulse ox applied. ED NOTE Observed: 09/25/2017 Status: COMPLETED Source: [place] 10:34 AM [facility] OTHER CAMPUS REPOSITORY HNO ID: [id number] Author: Neisha (Rn) JONATHAN Sen Service: (none) Author Type: Registered Nurse Type: ED Notes Filed: 09/25/2017 10:34 AM Note Text: Bed: ED-03 Expected date: Expected time: Means of arrival: Comments: LST M4 PROGRESS Observed: 09/21/2017 Status: COMPLETED Source: [place] 8:30 AM [facility] REPOSITORY HNO ID: [id number] Author: Saige (Pt) Sumeet Service: (none) Author Type: Physical Therapist Type: Progress Notes Filed: 09/21/2017 11:30 AM Note Text: Episode Visit Count: 17 Therapist That Will Oversee The Plan Of Care: Taty Philip Start of Care Date: 07/21/17 Onset Date: 07/21/16 (about one year) Patient Identified by Name and Date of : Yes [facility] PHYSICAL THERAPY TREATMENT NOTE ASSESSMENT: Ralph Joshi demonstrated difficulty with last visit with increase pain which lasted. Patient continued to have difficulty with BAPS today with weighted posts and this was stopped. Patient able to complete BAPS PWB with A/P and lateral movements only with no increase in pain. No pain with other exercise in therapy. US and soft tissue mobs with HAWKS lead massage therapist tools reduced pain. The patient will continue to benefit from continued skilled physical therapy for exercise , IASTM and US. PLAN FOR NEXT VISIT: Monitor response to treatment and continue with BAPS with no weights next visit and monitor circular motions with BAPS. SUBJECTIVE: Patient reports increase soreness after last visit for unknow reason. She reports feeling better again today. She reports no exercise at home since last seen due to pain with the movement. Patient reports she is scheduled for a diagnosit US 10/04/2017. Pain Score: 6/10 Pain Location: Ankle - Left Description: Burning;Other: See comment (intense) Frequency: Continuous Post Treatment Pain Score: 5/10 Pain Location: Ankle - Left Post Treatment Pain Description: Burning OBJECTIVE MEASURES WITH LEVEL OF FUNCTION: BAPS with posts and weights caused increase pain and was stopped today. TREATMENT: Therapeutic Exercise: 3: Lateral step up and over foam square x 10 each direction. 4: ankle alphabet A-Z x 1. 5: Seated toe curls left 2x30 reps 6: Left long sitting strap assist gastroc stretch 3x30 seconds. 7: L ankle dorsiflexion with green band resistance 3 x 10 reps 8: L ankle plantarflexion with green band resistance 3 x 10 reps 9: L ankle inversion with green band resistance 3 x 10 reps 10: L ankle eversion with green band resistance 3 x 10 reps 11: Forward step ups onto foam square leading with right and left LE x 10. 12: Standing BAPS ball 3 left PWB with 2.5# with increase pain and this was stopped. BAPS PWB ball 2 no weight A/P and lateral x 10 and deferred circles due to pain. Skilled Intervention: Patient was educated in proper exercise technique and purpose for exercises. Skilled judgment was provided in selection of appropriate interventions. Manual Therapy: 1: IASTM with boomerrang and tongue depressor left lateral malleolar/peroneal and gastroc region x 10 minutes with pressure to patient tolerance. Skilled Intervention: Manual skills to improve joint mobility, ROM, and decrease pain. Utilized anatomy knowledge of the therapist, and assessment of patient's response to intervention. Modalities: Ultrasound Body Region Treated - Ultrasound: L lateral ankle, sub and post malleolar regions, peroneal tendon Patient Position: Prone lying Mode: 100% w/cm2: 1.2 MHZ: 1 Minutes: 10 See flowsheet for details regarding treatment. Skilled Intervention: Proper administration and selection of modality based on clinical presentation, deficits, and needs. Patient response monitored throughout treatment. Billing: [facility]: Therapeutic Exercise ([id number]): 1:1 time: 20 minutes (1 unit: 8-22 mins) Manual Therapy ([id number]): 1:1 time: 10 minutes (1 unit: 8-22 mins) Modalities Ultrasound ([id number]) 1:1 time: 10 minutes1 unit: 8-22 mins Total time: 40 minutes Michaela Blakely PT-A/Saige Fay PT CNTHERAPY Observed: 09/21/2017 Status: COMPLETED Source: [place] 7:45 AM [facility] REPOSITORY OT/PT/Speech Visit (PTWS) ADIRALPH Mckinnon ([id number]) 1955 F Date Time Provider Department 09/21/17 7:45 AM MICHAELA BLAKELY (LAP POLISHER) PTWS Date Time Provider Department [place] 09/21/2017 7:45 AM [id number], NANCY (LAP POLISHER) PTWS [facility] Reason for Visit: Physical Therapy [503] Primary Visit Diagnosis:Peroneal tendinitis, left [M76.72] Allergies As of Date: 09/21/2017 Noted Allergy Reaction AVOCADO 09/10/2014 10 - Anaphylaxis BANANA 09/10/2014 10 - Anaphylaxis CARBINOXAMINE 09/17/2012 10 - Anaphylaxis YOSELIN SEED 08/28/2013 10 - Anaphylaxis CIPROFLOXACIN 04/11/2014 10 - Anaphylaxis CODEINE 01/12/2012 10 - Anaphylaxis CONTRAST DYE 05/17/2013 10 - Anaphylaxis Comments: To MRI and CT FISH 09/07/2014 10 - Anaphylaxis HYCODAN (HYDROCODONE-HOMATROPINE) 09/08/2011 10 - Anaphylaxis Comments: Face and throat swelling LATEX 01/21/2014 10 - Anaphylaxis IMTIAZ-SYNEPHRINE (PHENYLEPHRINE HCL)09/04/2014 10 - Anaphylaxis Comments: 10% eye drop NICKEL 01/07/2014 2 - Rash 4 - Hives 10 - Anaphylaxis NSAIDS (NON-STEROIDAL ANTI-INFLAM*08/16/2010 14 - Other: See Comments Comments: Kidney function drops; reversible kidney damage. OXYCODONE 08/28/2013 10 - Anaphylaxis PERIACTIN (CYPROHEPTADINE) 09/17/2012 10 - Anaphylaxis PNEUMOCOCCAL VACCINE 10/31/2014 10 - Anaphylaxis SHELLFISH 09/07/2014 10 - Anaphylaxis ZANTAC (RANITIDINE) 09/17/2012 10 - Anaphylaxis ATIVAN (LORAZEPAM) 08/28/2013 14 - Other: See Comments Comments: hallucination BEEF CONTAINING PRODUCTS 09/10/2014 2 - Rash CORN 05/03/2011 14 - Other: See Comments Comments: Feels like an asthma attack. EGGS (EGG) 03/08/2011 2 - Rash 11 - Vomiting EKG LEADS (ADHESIVE) 10/22/2012 2 - Rash Comments: Localized,only under the leads environmental [Other] 06/26/2007 14 - Other: See Comments Comments: Nasal congestion, brings on an asthma attack. INFLUENZA VIRUS VACCINES 10/22/2012 12 - Shortness of Breath LISINOPRIL 04/20/2004 3 - Cough MILK 03/08/2011 2 - Rash 11 - Vomiting MOMETASONE 04/05/2017 10 - Anaphylaxis Comments: Per Dr. Salas she tolerates formoterol (on Breo at home) but is allergic to mometasone. Okayed by him to update. surgical tape [Other] 11/10/2009 2 - Rash 7 - Swelling Comments: Oral rash, swelling of eyes, asthma attacks; per pateint report. XOLAIR (OMALIZUMAB) 04/19/2012 12 - Shortness of Breath Date Reviewed: 09/13/2017 Reviewed by: Taty Corona Ma - Fully Assessed Prescriptions as of 09/21/2017 Sig: PREGABALIN 150 MG CAPSULE Take 1 capsule by mouth twice* PREGABALIN 150 MG CAPSULE Take 1 capsule by mouth twice* ATORVASTATIN 20 MG TABLET One tab on MWF only SPIRONOLACTONE 50 MG TABLET Take 1 tablet by mouth twice * LANSOPRAZOLE 30 MG CAPSULE,DE* TAKE 1 CAPSULE TWICE A DAY BUMETANIDE 0.5 MG TABLET Take 1 tablet by mouth once d* NITROGLYCERIN 0.4 MG SUBLINGU* DISSOLVE 1 TABLET UNDER THE T* ALBUTEROL SULFATE HFA 90 MCG/* Inhale 2 Puffs as instructed * FLUTICASONE 100 MCG-VILANTERO* Inhale 1 Inhalation as instru* LEVALBUTEROL 1.25 MG/3 ML BRENDA* Use 1 Ampule via nebulizer ev* FLUTICASONE 50 MCG/ACTUATION * 1-2 sprays each side qd BUDESONIDE 0.5 MG/2 ML SUSPEN* Use 1 Ampule via nebulizer tw* AZELASTINE 0.15 % (205.5 MCG)* Use 1 Wilberforce in each nostril t* COMPOUNDED PRESCRIPTION Nocturnal oximetry on room ai* CHOLESTYRAMINE (WITH SUGAR) 4* Take 1 scoop by mouth once da* AMLODIPINE 10 MG TABLET Take 0.5 tablets by mouth onc* CYANOCOBALAMIN (VIT B-12) 1,0* Take 1 tablet by mouth once d* ATENOLOL 25 MG TABLET Take 1 tablet by mouth once d* EPINEPHRINE 0.3 MG/0.3 ML INJ* Inject 0.3 mL intramuscularly* PREDNISONE 10 MG TABLET Take 2.5 tablets by mouth onc* Patient taking differently: Take 25 mg by mouth once mary ellen* ERGOCALCIFEROL (VITAMIN D2) 5* Take 1 capsule by mouth once * Patient taking differently: Take 50,000 Units by mouth on* TURMERIC ROOT EXTRACT ORAL Take 1 tablet by mouth twice * CRISABOROLE 2 % TOPICAL OINTM* Apply to the hands twice daily COMPOUNDED PRESCRIPTION Please provide patient with n* CETIRIZINE 10 MG TABLET Take 10 mg by mouth once mary ellen* PIMECROLIMUS 1 % TOPICAL CREAM Apply twice daily to the hands ONDANSETRON HCL 4 MG TABLET Take 1 tablet by mouth every * BENZONATATE 200 MG CAPSULE Take 200 mg by mouth three ti* LACTOBACILLUS RHAMNOSUS GG 10* Take 1 capsule by mouth twice* FAMOTIDINE 20 MG TABLET Take 1 tablet by mouth twice * Patient taking differently: Take 20 mg by mouth twice liam* DIPHENHYDRAMINE 50 MG CAPSULE Take 1 capsule by mouth every* AMOXICILLIN 250 MG CAPSULE Take 250 mg by mouth once liam* ZAFIRLUKAST 20 MG TABLET Take 1 tablet by mouth twice * DOXAZOSIN 2 MG TABLET Take 2 mg by mouth once daily. CYCLOSPORINE MODIFIED 50 MG C* Take 50 mg by mouth twice liam* ASCORBIC ACID (VITAMIN C) 500* Take 1 tablet by mouth once d* ALBUTEROL SULFATE 2.5 MG/3 ML* Use 3 mL via nebulizer one ti* Progress Notes: Saige Fay, PT 09/21/2017 11:30 AM Signed Episode Visit Count: 17 Therapist That Will Oversee The Plan Of Care: Taty Philip Start of Care Date: 07/21/17 Onset Date: 07/21/16 (about one year) Patient Identified by Name and Date of : Yes REHABILITATION AND SPORTS THERAPY PHYSICAL THERAPY TREATMENT NOTE ASSESSMENT: Ralph Joshi demonstrated difficulty with last visit with increase pain which lasted. Patient continued to have difficulty with BAPS today with weighted posts and this was stopped. Patient able to complete BAPS PWB with A/P and lateral movements only with no increase in pain. No pain with other exercise in therapy. US and soft tissue mobs with HAWKS lead massage therapist tools reduced pain. The patient will continue to benefit from continued skilled physical therapy for exercise , IASTM and US. PLAN FOR NEXT VISIT: Monitor response to treatment and continue with BAPS with no weights next visit and monitor circular motions with BAPS. SUBJECTIVE: Patient reports increase soreness after last visit for unknow reason. She reports feeling better again today. She reports no exercise at home since last seen due to pain with the movement. Patient reports she is scheduled for a diagnosit US 10/04/2017. Pain Score: 6/10 Pain Location: Ankle - Left Description: Burning;Other: See comment (intense) Frequency: Continuous Post Treatment Pain Score: 5/10 Pain Location: Ankle - Left Post Treatment Pain Description: Burning OBJECTIVE MEASURES WITH LEVEL OF FUNCTION: BAPS with posts and weights caused increase pain and was stopped today. TREATMENT: Therapeutic Exercise: 3: Lateral step up and over foam square x 10 each direction. 4: ankle alphabet A-Z x 1. 5: Seated toe curls left 2x30 reps 6: Left long sitting strap assist gastroc stretch 3x30 seconds. 7: L ankle dorsiflexion with green band resistance 3 x 10 reps 8: L ankle plantarflexion with green band resistance 3 x 10 reps 9: L ankle inversion with green band resistance 3 x 10 reps 10: L ankle eversion with green band resistance 3 x 10 reps 11: Forward step ups onto foam square leading with right and left LE x 10. 12: Standing BAPS ball 3 left PWB with 2.5# with increase pain and this was stopped. BAPS PWB ball 2 no weight A/P and lateral x 10 and deferred circles due to pain. Skilled Intervention: Patient was educated in proper exercise technique and purpose for exercises. Skilled judgment was provided in selection of appropriate interventions. Manual Therapy: 1: IASTM with boomerrang and tongue depressor left lateral malleolar/peroneal and gastroc region x 10 minutes with pressure to patient tolerance. Skilled Intervention: Manual skills to improve joint mobility, ROM, and decrease pain. Utilized anatomy knowledge of the therapist, and assessment of patient's response to intervention. Modalities: Ultrasound Body Region Treated - Ultrasound: L lateral ankle, sub and post malleolar regions, peroneal tendon Patient Position: Prone lying Mode: 100% w/cm2: 1.2 MHZ: 1 Minutes: 10 See flowsheet for details regarding treatment. Skilled Intervention: Proper administration and selection of modality based on clinical presentation, deficits, and needs. Patient response monitored throughout treatment. Billing: [facility]: Therapeutic Exercise (20792): 1:1 time: 20 minutes (1 unit: 8-22 mins) Manual Therapy ([id number]): 1:1 time: 10 minutes (1 unit: 8-22 mins) Modalities Ultrasound (70903) 1:1 time: 10 minutes1 unit: 8-22 mins Total time: 40 minutes Michaela Blakely, PT-A/Saige Fay PT Previous Version Follow-up and Disposition History Recorded URINALYSIS, ROUTINE Collected: 09/15/2017 Status: F Source: [place] (DIPSTICK) 8:57 AM [facility] REPOSITORY Order Comment: Comments: AST How was Urine Obtained? CLEAN CATCH TYPE CODE TESTS RESULT OUT OF RANGE REFERENCE UNITS LAB L400.3000 Yellow COLOR Normal Yellow LAB L400.3050 Clear Normal CLARITY Sl. Cloudy LAB L400.3200 Normal mg/dl Normal GLUCOSE, UR Normal LAB L400.3300 Negative mg/dL Normal BILIRUBIN URINE Negative LAB L400.3400 Negative mg/dl Normal KETONE UR Negative LAB L400.3465 1.002-1.030 Normal SP.GR. DIPSTX 1.015 LAB L400.3550 5.0 - 8.0 pH UR Normal 6.0 LAB L400.3600 Negative mg/dl High PROT 15 DIPSTX LAB L400.3700 Normal mg/dl Normal UROBILI Normal LAB L400.3750 Negative Normal NITRITE UR Negative LAB L400.3780 Negative /ul High 10 OCCULT BLOOD-UR LAB L400.3800 Negative /ul LEUK Normal ESTERASE Negative Performed By: #### L400.2010 #### [facility] [address] [place], [address] BUN Collected: 09/15/2017 Status: F Source: [place] 8:57 AM [facility] REPOSITORY TYPE CODE TESTS RESULT OUT OF RANGE REFERENCE UNITS LAB L501.1000 7-18 mg/dL High BUN 19 Performed By: #### L501.1000, L501.1105, L501.1800, L501.4100 #### [facility] [address] [place], [address] SERUM CREATININE AND Collected: 09/15/2017 Status: F Source: [place] GFR 8:57 AM [facility] REPOSITORY TYPE CODE TESTS RESULT OUT OF RANGE REFERENCE UNITS LAB L501.1100 0.55-1.02 mg/dL High 1.14 CREAT,SERUM Result Comment: The validity of the calculated GFR AND GFRAA in patients over 70 years has not been determined. Clinical correlation is essential. LAB L501.1110 >60 mL/min Low EST GFR 51 Result Comment: Non- GFR Calc LAB L501.1115 >60 mL/min Normal EST GFR - AA 62 Result Comment: GFR Calc Performed By: #### L501.1000, L501.1105, L501.1800, L501.4100 #### [facility] [address] [place], [address] ALBUMIN, SERUM Collected: 09/15/2017 Status: F Source: [place] 8:57 AM [facility] REPOSITORY TYPE CODE TESTS RESULT OUT OF RANGE REFERENCE UNITS LAB L501.1800 3.2-5.0 g/dL Normal ALB 3.7 Performed By: #### L501.1000, L501.1105, L501.1800, L501.4100 #### [facility] [address] [place], [address] AST(SGOT) Collected: 09/15/2017 Status: F Source: [place] 8:57 AM [facility] REPOSITORY TYPE CODE TESTS RESULT OUT OF RANGE REFERENCE UNITS LAB L501.4100 15-37 U/L Normal AST 26 Performed By: #### L501.1000, L501.1105, L501.1800, L501.4100 #### [facility] [address] [place], [place], [address] CBC W/DIFF, AUTOMATED Collected: 09/15/2017 Status: F Source: [place] 8:57 AM [facility] REPOSITORY TYPE CODE TESTS RESULT OUT OF RANGE REFERENCE UNITS LAB L100.1000 4.4-11.0 K/mm3 Normal WBC 8.6 LAB L100.1200 4.2-5.4 M/mm3 Normal RBC 4.79 LAB L100.1300 12.0-15.0 g/dl Normal HGB 14.1 LAB L100.1400 37-47 % Normal HCT 43.0 LAB L100.1500 81-99 fL Normal MCV 89.8 LAB L100.1600 27.0-32.0 pg Normal MCH 29.4 LAB L100.1700 32-36 g/gl Normal MCHC 32.8 LAB L100.1810 11.6-14.6 % Normal RDW CV 14.1 LAB L100.1820 35.1-43.9 fl High RDW SD 46.4 LAB L100.1900 150-450 K/mm3 Normal PLT 213 LAB L100.2000 6.2-12.0 fl Normal MPV 10.7 LAB L100.2100 47-70 % High NEUT% 74.4 LAB L100.2200 19-41 % Low LY% 10.3 LAB L100.2300 0-10 % Normal MONO% 9.4 LAB L100.2400 0-5 % High EO% 5.1 LAB L100.2500 0-1 % Normal BASO% 0.6 LAB L100.2550 0.0-0.9 % Normal IM GRAN % 0.200 Result Comment: IG% - Immature Granulocytes (promyelocytes, myelocytes and metamyelocytes) > 1% indicates that a LEFT SHIFT is Present. LAB L100.2620 2.0-7.7 X10 3/uL Normal Absolute Neut 6.4 LAB L100.2720 0.83-4.51 X10 3/ul Normal Absolute Lymph 0.88 Performed By: #### L100.0100 #### [facility] [address] [place], [address] CYCLOSPORINE, BLOOD Collected: 09/15/2017 Status: F Source: [place] 8:57 AM [facility] REPOSITORY TYPE CODE TESTS RESULT OUT OF REFERENCE UNITS RANGE LAB L3400.3100 100-400 ng/mL Cyclosporine Normal 180 Result Comment: Therapeutic: Renal Transplant 100 - 250 Liver Transplant 100 - 400 Cardiac Transplant 100 - 400 Bone Marrow 200 - 300 Detection Limit = 25 Assay performed by Liquid Chromatography Tandem Mass Spectrometry (LC-MS/MS) If preferred testing methodology for Cyclosporine is Liquid Chromatography Tandem Mass Spectrometry (LC-MS/MS) please use test code [id number]. For testing performed by Immunoassay, please use test code [id number]. Performed at: [facility] [id number] [employer] Director: Mik Alonso MD, Phone: [phone] Performed By: #### L3400.3090 #### [facility] (refer to report for specific site) refer to report for address and phone number CNTHERAPY Observed: 09/15/2017 Status: COMPLETED Source: [place] 8:00 AM [facility] REPOSITORY OT/PT/Speech Visit (PTWS) RALPH JOSHI ([id number]) 1955 F Date Time Provider Department 09/15/17 8:00 AM TATY PHILIP (PT) PTWS Date Time Provider Department Center 09/15/2017 8:00 AM [id number] PHILIP (PT) PTWS [facility] Reason for Visit: PT Progress Note [1596] Primary Visit Diagnosis:Peroneal tendinitis, left [M76.72] Allergies As of Date: 09/15/2017 Noted Allergy Reaction AVOCADO 09/10/2014 10 - Anaphylaxis BANANA 09/10/2014 10 - Anaphylaxis CARBINOXAMINE 09/17/2012 10 - Anaphylaxis YOSELIN SEED 08/28/2013 10 - Anaphylaxis CIPROFLOXACIN 04/11/2014 10 - Anaphylaxis CODEINE 01/12/2012 10 - Anaphylaxis CONTRAST DYE 05/17/2013 10 - Anaphylaxis Comments: To MRI and CT FISH 09/07/2014 10 - Anaphylaxis HYCODAN (HYDROCODONE-HOMATROPINE) 09/08/2011 10 - Anaphylaxis Comments: Face and throat swelling LATEX 01/21/2014 10 - Anaphylaxis IMTIAZ-SYNEPHRINE (PHENYLEPHRINE HCL)09/04/2014 10 - Anaphylaxis Comments: 10% eye drop NICKEL 01/07/2014 2 - Rash 4 - Hives 10 - Anaphylaxis NSAIDS (NON-STEROIDAL ANTI-INFLAM*08/16/2010 14 - Other: See Comments Comments: Kidney function drops; reversible kidney damage. OXYCODONE 08/28/2013 10 - Anaphylaxis PERIACTIN (CYPROHEPTADINE) 09/17/2012 10 - Anaphylaxis PNEUMOCOCCAL VACCINE 10/31/2014 10 - Anaphylaxis SHELLFISH 09/07/2014 10 - Anaphylaxis ZANTAC (RANITIDINE) 09/17/2012 10 - Anaphylaxis ATIVAN (LORAZEPAM) 08/28/2013 14 - Other: See Comments Comments: hallucination BEEF CONTAINING PRODUCTS 09/10/2014 2 - Rash CORN 05/03/2011 14 - Other: See Comments Comments: Feels like an asthma attack. EGGS (EGG) 03/08/2011 2 - Rash 11 - Vomiting EKG LEADS (ADHESIVE) 10/22/2012 2 - Rash Comments: Localized,only under the leads environmental [Other] 06/26/2007 14 - Other: See Comments Comments: Nasal congestion, brings on an asthma attack. INFLUENZA VIRUS VACCINES 10/22/2012 12 - Shortness of Breath LISINOPRIL 04/20/2004 3 - Cough MILK 03/08/2011 2 - Rash 11 - Vomiting MOMETASONE 04/05/2017 10 - Anaphylaxis Comments: Per Dr. Salas she tolerates formoterol (on Breo at home) but is allergic to mometasone. Okayed by him to update. surgical tape [Other] 11/10/2009 2 - Rash 7 - Swelling Comments: Oral rash, swelling of eyes, asthma attacks; per pateint report. XOLAIR (OMALIZUMAB) 04/19/2012 12 - Shortness of Breath Date Reviewed: 09/13/2017 Reviewed by: Taty Corona Ma - Fully Assessed Prescriptions as of 09/15/2017 Sig: PREGABALIN 150 MG CAPSULE Take 1 capsule by mouth twice* PREGABALIN 150 MG CAPSULE Take 1 capsule by mouth twice* ATORVASTATIN 20 MG TABLET One tab on MWF only SPIRONOLACTONE 50 MG TABLET Take 1 tablet by mouth twice * LANSOPRAZOLE 30 MG CAPSULE,DE* TAKE 1 CAPSULE TWICE A DAY BUMETANIDE 0.5 MG TABLET Take 1 tablet by mouth once d* NITROGLYCERIN 0.4 MG SUBLINGU* DISSOLVE 1 TABLET UNDER THE T* ALBUTEROL SULFATE HFA 90 MCG/* Inhale 2 Puffs as instructed * FLUTICASONE 100 MCG-VILANTERO* Inhale 1 Inhalation as instru* LEVALBUTEROL 1.25 MG/3 ML BRENDA* Use 1 Ampule via nebulizer ev* FLUTICASONE 50 MCG/ACTUATION * 1-2 sprays each side qd BUDESONIDE 0.5 MG/2 ML SUSPEN* Use 1 Ampule via nebulizer tw* AZELASTINE 0.15 % (205.5 MCG)* Use 1 Wilberforce in each nostril t* COMPOUNDED PRESCRIPTION Nocturnal oximetry on room ai* CHOLESTYRAMINE (WITH SUGAR) 4* Take 1 scoop by mouth once da* AMLODIPINE 10 MG TABLET Take 0.5 tablets by mouth onc* CYANOCOBALAMIN (VIT B-12) 1,0* Take 1 tablet by mouth once d* ATENOLOL 25 MG TABLET Take 1 tablet by mouth once d* EPINEPHRINE 0.3 MG/0.3 ML INJ* Inject 0.3 mL intramuscularly* PREDNISONE 10 MG TABLET Take 2.5 tablets by mouth onc* Patient taking differently: Take 25 mg by mouth once mary ellen* ERGOCALCIFEROL (VITAMIN D2) 5* Take 1 capsule by mouth once * Patient taking differently: Take 50,000 Units by mouth on* TURMERIC ROOT EXTRACT ORAL Take 1 tablet by mouth twice * CRISABOROLE 2 % TOPICAL OINTM* Apply to the hands twice daily COMPOUNDED PRESCRIPTION Please provide patient with n* CETIRIZINE 10 MG TABLET Take 10 mg by mouth once mary ellen* PIMECROLIMUS 1 % TOPICAL CREAM Apply twice daily to the hands ONDANSETRON HCL 4 MG TABLET Take 1 tablet by mouth every * BENZONATATE 200 MG CAPSULE Take 200 mg by mouth three ti* LACTOBACILLUS RHAMNOSUS GG 10* Take 1 capsule by mouth twice* FAMOTIDINE 20 MG TABLET Take 1 tablet by mouth twice * Patient taking differently: Take 20 mg by mouth twice liam* DIPHENHYDRAMINE 50 MG CAPSULE Take 1 capsule by mouth every* AMOXICILLIN 250 MG CAPSULE Take 250 mg by mouth once liam* ZAFIRLUKAST 20 MG TABLET Take 1 tablet by mouth twice * DOXAZOSIN 2 MG TABLET Take 2 mg by mouth once daily. CYCLOSPORINE MODIFIED 50 MG C* Take 50 mg by mouth twice liam* ASCORBIC ACID (VITAMIN C) 500* Take 1 tablet by mouth once d* ALBUTEROL SULFATE 2.5 MG/3 ML* Use 3 mL via nebulizer one ti* Progress Notes: Taty Philip, PT 09/15/2017 3:47 PM Signed Episode Visit Count: 16 Therapist That Will Oversee The Plan Of Care: Taty Philip Start of Care Date: 07/21/17 Onset Date: 07/21/16 (about one year) REHABILITATION AND SPORTS THERAPY PHYSICAL THERAPY PROGRESS REPORT PLAN OF CARE UPDATE: Assessment: Ralph Joshi exhibits difficulty with continued edema, weakness and decreased AROM and improvements in overall pain intensity and ankle edema. She continues to be limited with standing and walking in the community. She is progressing as expected towards her therapy goals as demonstrated by: documented subjective information on progress and documented objective information regarding strength, range of motion and patient reported outcome measures. She will benefit from continued skilled therapy requiring strengthening and proprioceptive exercises, manual techniques in order to further improve strength, AROM/flexibility and edema reduction to return to full function. Functional gains: Improved ability to climb steps Increased endurance / activity tolerance Increased independence with HEP Increased ROM Decreased intensity of pain Goals for Episode of Care: created on 07/21/17 through 09/20/17 Goals updated on 08/16/2017. [place] in home exercise program. (Met) Patient will decrease pain rating by 2 points to meet minimal clinical important difference for numeric pain rating scale. (Met) Patient will increase active ROM of L ankle to DF 8-10 deg, inv 30-35 deg and ever 15 deg. to allow pt to improved performance of ADLs. (Met) Patient will increase strength of L ankle to 4+/5 to allow for return to prior functional status and normalized gait mechanics. (Not Met)- progressing Perform daily and community ambulation, prolonged standing and stair negotiation with decreased report of symptoms/pain in 4-8 weeks. (Partially Met) Demonstrate improvement on functional score: Patient will increase his/her score on the Lower Extremity Functional Scale by at least 9 points to indicate a Minimal Clinical Important Difference. (Not Met) Planned Interventions, Frequency, and Duration: 2x/week, 4 weeks Total Number of Visits Planned: 8 Patient to be seen for Therapeutic exercise;Neuromuscular re-education;Manual therapy;Gait Training;Patient/Family/Caregiver Education;ModalitiesUltrasound PLAN FOR NEXT VISIT: Continue treatment to work towards all goals including decreased pain and improved function. SUBJECTIVE: Pt states she can tell she is slowly improving. She had an ultrasound done since last visit which was negative for DVT. She staets community ambulation and prolonged standing are more limited by her low back pain than by her foot/ankle. She is doing well with stairs, but has to rest after one flight before starting another. Pain Score: 3/10 Pain Location: Ankle - Left Post Treatment Pain Score: 1/10 OBJECTIVE MEASURES WITH LEVEL OF FUNCTION: Ankle Observations Comments: 2 above mall 27.5, B mall 30.5, heel 33.5, midfoot 24.5, MTP 23 LE AROM L Ankle Dorsiflexion: 10 Degrees L Ankle Plantar Flexion: 60 Degrees L Ankle Inversion: 34 (minimnal lateral ankle pain) L Ankle Eversion: 20 LE Strength L Ankle Dorsiflexion: 4/5 L Ankle Plantar Flexion: 4/5 L Ankle Inversion: 4-/5 L Ankle Eversion: 4-/5 TREATMENT: Therapeutic Exercise: 4: ankle alphabet A-Z x 2 . 5: Seated toe curls left 2x30 reps 6: Left long sitting strap assist gastroc stretch 3x30 seconds. 7: L ankle dorsiflexion with green band resistance 3 x 10 reps 8: L ankle plantarflexion with green band resistance 3 x 10 reps 9: L ankle inversion with green band resistance 3 x 10 reps 10: L ankle eversion with green band resistance 3 x 10 reps 11: Forward step ups onto dome of BOSU leading with right and left LE x 10 each. 12: Standing BAPS ball 3 left PWB with 2.5# each post cw and ccw x 10 each. Skilled Intervention: Patient was educated in proper exercise technique and purpose for exercises. Reviewed and educated patient on additions/changes for home exercise program and pt to continue with current exercises. Skilled judgment was provided in selection of appropriate interventions. Correct performance of therapeutic exercises was facilitated with verbal and visual cuing. Patient education as noted. Objective measurements and reassessment. Modalities: Ultrasound Body Region Treated - Ultrasound: L lateral ankle, sub and post malleolar regions, peroneal tendon Patient Position: supine with leg on bolster Mode: 100% w/cm2: 1.2 MHZ: 1 Minutes: 10 See flowsheet for details regarding treatment. Skilled Intervention: Proper administration and selection of modality based on clinical presentation, deficits, and needs. Patient response monitored throughout treatment. Billing: [facility]: Therapeutic Exercise ([id number]): 1:1 time: 32 minutes (2 units: 23-37 mins) Modalities Ultrasound (53576) 1:1 time: 10 minutes1 unit: 8-22 mins Total time: 42 minutes Taty Philip PT PROGRESS Observed: 09/15/2017 Status: COMPLETED Source: [place] 7:57 AM [facility] REPOSITORY HNO ID: [id number] Author: Taty (Pt) Cedrick Service: (none) Author Type: Physical Therapist Type: Progress Notes Filed: 09/15/2017 3:47 PM Note Text: Episode Visit Count: 16 Therapist That Will Oversee The Plan Of Care: Taty Philip Start of Care Date: 07/21/17 Onset Date: 07/21/16 (about one year) REHABILITATION AND SPORTS THERAPY PHYSICAL THERAPY PROGRESS REPORT PLAN OF CARE UPDATE: Assessment: Ralph Joshi exhibits difficulty with continued edema, weakness and decreased AROM and improvements in overall pain intensity and ankle edema. She continues to be limited with standing and walking in the community. She is progressing as expected towards her therapy goals as demonstrated by: documented subjective information on progress and documented objective information regarding strength, range of motion and patient reported outcome measures. She will benefit from continued skilled therapy requiring strengthening and proprioceptive exercises, manual techniques in order to further improve strength, AROM/flexibility and edema reduction to return to full function. Functional gains: Improved ability to climb steps Increased endurance / activity tolerance Increased independence with HEP Increased ROM Decreased intensity of pain Goals for Episode of Care: created on 07/21/17 through 09/20/17 Goals updated on 08/16/2017. [place] in home exercise program. (Met) Patient will decrease pain rating by 2 points to meet minimal clinical important difference for numeric pain rating scale. (Met) Patient will increase active ROM of L ankle to DF 8-10 deg, inv 30-35 deg and ever 15 deg. to allow pt to improved performance of ADLs. (Met) Patient will increase strength of L ankle to 4+/5 to allow for return to prior functional status and normalized gait mechanics. (Not Met)- progressing Perform daily and community ambulation, prolonged standing and stair negotiation with decreased report of symptoms/pain in 4-8 weeks. (Partially Met) Demonstrate improvement on functional score: Patient will increase his/her score on the Lower Extremity Functional Scale by at least 9 points to indicate a Minimal Clinical Important Difference. (Not Met) Planned Interventions, Frequency, and Duration: 2x/week, 4 weeks Total Number of Visits Planned: 8 Patient to be seen for Therapeutic exercise;Neuromuscular re-education;Manual therapy;Gait Training;Patient/Family/Caregiver Education;ModalitiesUltrasound PLAN FOR NEXT VISIT: Continue treatment to work towards all goals including decreased pain and improved function. SUBJECTIVE: Pt states she can tell she is slowly improving. She had an ultrasound done since last visit which was negative for DVT. She staets community ambulation and prolonged standing are more limited by her low back pain than by her foot/ankle. She is doing well with stairs, but has to rest after one flight before starting another. Pain Score: 3/10 Pain Location: Ankle - Left Post Treatment Pain Score: 1/10 OBJECTIVE MEASURES WITH LEVEL OF FUNCTION: Ankle Observations Comments: 2 above mall 27.5, B mall 30.5, heel 33.5, midfoot 24.5, MTP 23 LE AROM L Ankle Dorsiflexion: 10 Degrees L Ankle Plantar Flexion: 60 Degrees L Ankle Inversion: 34 (minimnal lateral ankle pain) L Ankle Eversion: 20 LE Strength L Ankle Dorsiflexion: 4/5 L Ankle Plantar Flexion: 4/5 L Ankle Inversion: 4-/5 L Ankle Eversion: 4-/5 TREATMENT: Therapeutic Exercise: 4: ankle alphabet A-Z x 2 . 5: Seated toe curls left 2x30 reps 6: Left long sitting strap assist gastroc stretch 3x30 seconds. 7: L ankle dorsiflexion with green band resistance 3 x 10 reps 8: L ankle plantarflexion with green band resistance 3 x 10 reps 9: L ankle inversion with green band resistance 3 x 10 reps 10: L ankle eversion with green band resistance 3 x 10 reps 11: Forward step ups onto dome of BOSU leading with right and left LE x 10 each. 12: Standing BAPS ball 3 left PWB with 2.5# each post cw and ccw x 10 each. Skilled Intervention: Patient was educated in proper exercise technique and purpose for exercises. Reviewed and educated patient on additions/changes for home exercise program and pt to continue with current exercises. Skilled judgment was provided in selection of appropriate interventions. Correct performance of therapeutic exercises was facilitated with verbal and visual cuing. Patient education as noted. Objective measurements and reassessment. Modalities: Ultrasound Body Region Treated - Ultrasound: L lateral ankle, sub and post malleolar regions, peroneal tendon Patient Position: supine with leg on bolster Mode: 100% w/cm2: 1.2 MHZ: 1 Minutes: 10 See flowsheet for details regarding treatment. Skilled Intervention: Proper administration and selection of modality based on clinical presentation, deficits, and needs. Patient response monitored throughout treatment. Billing: [facility]: Therapeutic Exercise (31675): 1:1 time: 32 minutes (2 units: 23-37 mins) Modalities Ultrasound (38206) 1:1 time: 10 minutes1 unit: 8-22 mins Total time: 42 minutes Taty Philip PT US DVT LOWER LT Observed: 09/14/2017 Status: F Source: [place] 1:36 PM CLINIC OTHER CAMPUS REPOSITORY * * *Final Report* * * DATE OF EXAM: Sep 14 2017 1:36PM MMU 1006 - US DVT LOWER LT / PROCEDURE REASON: Other specified soft tissue disorders * * * * Physician Interpretation * * * * EXAMINATION: US DVT LOWER LT HISTORY: Other specified soft tissue disorders . TECHNIQUE: Grayscale images with/without compression were obtained. Additionally, color Doppler images were obtained. RESULT: The distal left external iliac, left common femoral, left superficial femoral, and left popliteal veins are patent, with normal color flow and compressibility. Visualized left calf veins are patent. Incidentally noted is a patent distal right external iliac vein. IMPRESSION: No left lower extremity DVT. 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 Still getting swelling and pain. Pt helped but still short lived. Could not wear ASO brace-hurts too much. Still having pain 5-6/10 at times. Wearing sneakers. Custom insoles but not wearing today. Wearing her old tennis shoes and insoles today. Hx of kouts and achilles repair in the past by Dr. Sewell. PCP: Anisa Caldwell MD PAIN EVALUATION 09/13/2017 Pain Score: 5 Pain Location: Foot-Left Description: Burning Duration Amount of Time: - ongoing Frequency: Continuous Intervention: Exercise;Reposition;Modify dressing application PAST MEDICAL HISTORY Diagnosis Date - Abdominal pain, other specified site - ACNE NEC 01/21/2008 - Actinic Keratosis (Premalignant AK) 06/05/2011 - ACUTE GASTRITIS W/O HEMORRHAGE 04/26/2007 - Allergic rhinitis 04/23/2012 - Anaphylactic reaction ideopathic - Benign tumor of adrenal gland - Biliary dyskinesia 10/29/2009 - Cervical herniated disc 10/20/2016 - Cervical myelopathy (HCC) 10/25/2016 - Cervical radiculitis 10/20/2016 - Cervical spondylosis with radiculopathy 11/17/2015 - JAIN ANGIOMA///NEVUS, NON-NEOPLASTIC 05/28/2007 - CKD (chronic kidney disease) stage 3, GFR 30-59 ml/min 04/29/2013 - Diaphragmatic hernia without mention of obstruction or gangrene 05/25/2011 - Diverticulosis of colon (without mention of hemorrhage) - Edema 07/07/2004 - Epigastric pain - GERD (gastroesophageal reflux disease) - HTN (hypertension) 2002 controlled on Diovan - Hyperlipidemia 10/15/2013 - IRON DEFIC ANEMIA NOS 04/26/2007 - Moderate persistent asthma without complication 02/18/2015 - Ovarian cyst Benign ovarian cyst, S/P laparoscopic LSO - Ptosis of eyelid, bilateral 12/23/2016 Added automatically from request for surgery [id number] - Shoulder impingement 11/17/2015 - Sleep apnea intollerant to CPAP because allergic to material on mask - Steroid-induced hyperglycemia 09/06/2014 - TACHYCARDIA NOS 01/09/2006 - Tarsal tunnel syndrome 12/23/2009 - Tear of lateral meniscus of knee 02/21/2014 - Ulcerative colitis, unspecified - UTERINE LEIOMYOMA NOS 12/23/2005 - VIRAL WARTS NOS 05/09/2006 - Vocal cord dysfunction Current Outpatient Prescriptions: pregabalin (LYRICA) 150 mg capsule Take 1 capsule by mouth twice daily for 181 days. pregabalin (LYRICA) 150 mg capsule Take 1 capsule by mouth twice daily for 90 days. atorvastatin (LIPITOR) 20 mg tablet One tab on MWF only spironolactone (ALDACTONE) 50 mg tablet Take 1 tablet by mouth twice daily. lansoprazole (PREVACID) 30 mg capsule TAKE 1 CAPSULE TWICE A DAY bumetanide (BUMEX) 0.5 mg tablet Take 1 tablet by mouth once daily. nitroglycerin sublingual (NITROQUICK) 0.4 mg SL tablet DISSOLVE 1 TABLET UNDER THE TONGUE NEEDED FOR CHEST PAIN, IF NO RELIEF CALL 911 albuterol HFA (PROAIR HFA) 90 mcg/actuation inhaler Inhale 2 Puffs as instructed every 6 hours as needed for Wheezing/Shortness of Breath. fluticasone-vilanterol (BREO ELLIPTA) 100-25 mcg/dose inhaler Inhale 1 Inhalation as instructed once daily. levalbuterol (XOPENEX) 1.25 mg/3 mL nebulizer solution Use 1 Ampule via nebulizer every 4 hours as needed. Inhale over 5-15 minutes fluticasone (FLONASE) 50 mcg/actuation nasal spray 1-2 sprays each side qd budesonide (PULMICORT) 0.5 mg/2 mL nebulizer solution Use 1 Ampule via nebulizer twice daily. Azelastine 0.15 % (205.5 mcg) spry Use 1 Wilberforce in each nostril twice daily. COMPOUNDED PRESCRIPTION Nocturnal oximetry on room air. DME: [facility] cholestyramine-sucrose (QUESTRAN) 4 gram powder Take 1 scoop by mouth once daily. amLODIPine (NORVASC) 10 mg tablet Take 0.5 tablets by mouth once daily. cyanocobalamin (VITAMIN B-12) 1,000 mcg tab Take 1 tablet by mouth once daily. atenolol (TENORMIN) 25 mg tablet Take 1 tablet by mouth once daily. EPINEPHrine (EPIPEN) 0.3 mg/0.3 mL auto-injector Inject 0.3 mL intramuscularly as needed. predniSONE (DELTASONE) 10 mg tablet Take 2.5 tablets by mouth once daily. (Patient taking differently: Take 25 mg by mouth once daily. Total 25 mg daily ) ergocalciferol, vitamin D2, (VITAMIN D) 50,000 unit capsule Take 1 capsule by mouth once each week. (Patient taking differently: Take 50,000 Units by mouth once each week. Every Monday ) TURMERIC ROOT EXTRACT ORAL Take 1 tablet by mouth twice daily. crisaborole (EUCRISA) 2 % oint Apply to the hands twice daily COMPOUNDED PRESCRIPTION Please provide patient with nebulizer machine and supplies.Diagnosis: Severe Asthma. cetirizine (ZYRTEC) 10 mg tablet Take 10 mg by mouth once daily. pimecrolimus (ELIDEL) 1 % cream Apply twice daily to the hands ondansetron (ZOFRAN) 4 mg tablet Take 1 tablet by mouth every 8 hours as needed. Benzonatate 200 mg capsule Take 200 mg by mouth three times daily as needed for Cough. lactobacillus rhamnosus (CULTURELLE) 10 billion cell capsule Take 1 capsule by mouth twice daily. famotidine (PEPCID) 20 mg tablet Take 1 tablet by mouth twice daily. (Patient taking differently: Take 20 mg by mouth twice daily. as needed ) diphenhydrAMINE (BENADRYL) 50 mg capsule Take 1 capsule by mouth every 6 hours as needed for Itching/Rash. amoxicillin (POLYMOX, AMOXIL) 250 mg capsule Take 250 mg by mouth once daily. zafirlukast (ACCOLATE) 20 mg tablet Take 1 tablet by mouth twice daily. doxazosin (CARDURA) 2 mg tablet Take 2 mg by mouth once daily. cycloSPORINE Modified 50 mg capsule Take 50 mg by mouth twice daily. ascorbic acid (VITAMIN C) 500 mg tablet Take 1 tablet by mouth once daily. albuterol 2.5 mg /3 mL (0.083 %) nebulizer solution Use 3 mL via nebulizer one time only for 1 dose. Inhale over 5-15 minutes No current facility-administered medications for this visit. ALLERGIES Allergen Reactions - Avocado Anaphylaxis - Banana Anaphylaxis - Carbinoxamine Anaphylaxis - Yoselin Seed Anaphylaxis - Ciprofloxacin Anaphylaxis - Codeine Anaphylaxis - Contrast Dye Anaphylaxis To MRI and CT - Fish Anaphylaxis - Hycodan [Hydrocodon* Anaphylaxis Face and throat swelling - Latex Anaphylaxis - Imtiaz-Synephrine [Phe* Anaphylaxis 10% eye drop - Nickel Rash, Hives, Anaphylaxis - Nsaids (Non-Steroid* Other: See Comments Kidney function drops; reversible kidney damage. - Oxycodone Anaphylaxis - Periactin [Cyprohep* Anaphylaxis - Pneumococcal Vaccine Anaphylaxis - Shellfish Anaphylaxis - Zantac [Ranitidine] Anaphylaxis - Ativan [Lorazepam] Other: See Comments hallucination - Beef Containing Pro* Rash - Berino Other: See Comments Feels like an asthma attack. - Eggs [Egg] Rash, Vomiting - Ekg Leads [Adhesive] Rash Localized,only under the leads - Environmental [Othe* Other: See Comments Nasal congestion, brings on an asthma attack. - Influenza Virus Vac* Shortness of Breath - Lisinopril Cough - Milk Rash, Vomiting - Mometasone Anaphylaxis Per Dr. Salas she tolerates formoterol (on Breo at home) but is allergic to mometasone. Okayed by him to update. - Surgical Tape [Othe* Rash, Swelling Oral rash, swelling of eyes, asthma attacks; per pateint report. - Xolair [Omalizumab] Shortness of Breath Physical Exam: OBJECTIVE: Vascular: Dorsalis pedis and posterior tibial pulses palpable b/l Capillary Fill time < 3 seconds to digits 1-5 b/l Skin temperature warm to warm proximal to distal b/l Hair growth present to digits Neurological: Intact light touch/epicritic sensation Vibratory sensation intact to MTPJ b/l NO significant neurological deficits Dermatological: Nails 1-5 b/l appear normal. Webspaces clean and dry 1-4 b/l. Skin appears well hydrated and supple. good color, texture, turgor. No open lesions present. No callosities present. Musculoskeletal/Orthopaedic: Patient has pain and swelling to palpation of peroneal tendon L foot. Pain noted with eversion and inversion against resistance. Foot type is supinated structurally within normal limits Radiographs:06/02/2017: hx of kouts. 2 large headless screws in place with no sign of lucency or displacement. ASSESSMENT: Peroneal tendonitis versus rupture/tear L foot PLAN: 1. History and physical examination performed 2. Will extend pt as seems to be helping a little. Add iontophoresis. 3. Compression dispensed today but will not wear until DVT scan is negative. 4. US to rule out DVT L leg for chronic foot and leg swelling. 5. US to evaluate peroneal lateral ankle for cause of continuing pain/swelling despite conservative therapy. 6. RTC following pt. 7. Recommend upgrading shoes to New Balance with rollbar. Jane Meza DPM CNOV Observed: 09/13/2017 Status: COMPLETED Source: [place] 9:30 AM [facility] REPOSITORY Office Visit (PODIMM) RALPH JOSHI ([id number]) 1955 F Date Time Provider Department 09/13/17 9:30 AM JANE MEZA During your visit today, we recorded the following information about you: Taty Corona Ma 09/13/2017 9:51 AM Signed Patient presents with: Follow Up: lt peroneal tendonitis Jane Meza DPM 09/13/2017 10:15 AM Signed New Balance tennis shoes with rollbar. Jane Meza DPM 09/13/2017 10:48 AM Signed Follow up Podiatric Office Visit: This 62 year old who presents with: lateral ankle pain L. Still getting swelling and pain. Pt helped but still short lived. Could not wear ASO brace-hurts too much. Still having pain 5-6/10 at times. Wearing sneakers. Custom insoles but not wearing today. Wearing her old tennis shoes and insoles today. Hx of kouts and achilles repair in the past by Dr. Sewell. PCP: Anisa Caldwell MD PAIN EVALUATION 09/13/2017 Pain Score: 5 Pain Location: Foot-Left Description: Burning Duration Amount of Time: - ongoing Frequency: Continuous Intervention: Exercise;Reposition;Modify dressing application PAST MEDICAL HISTORY Diagnosis Date - Abdominal pain, other specified site - ACNE NEC 01/21/2008 - Actinic Keratosis (Premalignant AK) 06/05/2011 - ACUTE GASTRITIS W/O HEMORRHAGE 04/26/2007 - Allergic rhinitis 04/23/2012 - Anaphylactic reaction ideopathic - Benign tumor of adrenal gland - Biliary dyskinesia 10/29/2009 - Cervical herniated disc 10/20/2016 - Cervical myelopathy (HCC) 10/25/2016 - Cervical radiculitis 10/20/2016 - Cervical spondylosis with radiculopathy 11/17/2015 - JAIN ANGIOMA///NEVUS, NON-NEOPLASTIC 05/28/2007 - CKD (chronic kidney disease) stage 3, GFR 30-59 ml/min 04/29/2013 - Diaphragmatic hernia without mention of obstruction or gangrene 05/25/2011 - Diverticulosis of colon (without mention of hemorrhage) - Edema 07/07/2004 - Epigastric pain - GERD (gastroesophageal reflux disease) - HTN (hypertension) 2002 controlled on Diovan - Hyperlipidemia 10/15/2013 - IRON DEFIC ANEMIA NOS 04/26/2007 - Moderate persistent asthma without complication 02/18/2015 - Ovarian cyst Benign ovarian cyst, S/P laparoscopic LSO - Ptosis of eyelid, bilateral 12/23/2016 Added automatically from request for surgery [id number] - Shoulder impingement 11/17/2015 - Sleep apnea intollerant to CPAP because allergic to material on mask - Steroid-induced hyperglycemia 09/06/2014 - TACHYCARDIA NOS 01/09/2006 - Tarsal tunnel syndrome 12/23/2009 - Tear of lateral meniscus of knee 02/21/2014 - Ulcerative colitis, unspecified - UTERINE LEIOMYOMA NOS 12/23/2005 - VIRAL WARTS NOS 05/09/2006 - Vocal cord dysfunction Current Outpatient Prescriptions: pregabalin (LYRICA) 150 mg capsule Take 1 capsule by mouth twice daily for 181 days. pregabalin (LYRICA) 150 mg capsule Take 1 capsule by mouth twice daily for 90 days. atorvastatin (LIPITOR) 20 mg tablet One tab on MWF only spironolactone (ALDACTONE) 50 mg tablet Take 1 tablet by mouth twice daily. lansoprazole (PREVACID) 30 mg capsule TAKE 1 CAPSULE TWICE A DAY bumetanide (BUMEX) 0.5 mg tablet Take 1 tablet by mouth once daily. nitroglycerin sublingual (NITROQUICK) 0.4 mg SL tablet DISSOLVE 1 TABLET UNDER THE TONGUE NEEDED FOR CHEST PAIN, IF NO RELIEF CALL 911 albuterol HFA (PROAIR HFA) 90 mcg/actuation inhaler Inhale 2 Puffs as instructed every 6 hours as needed for Wheezing/Shortness of Breath. fluticasone-vilanterol (BREO ELLIPTA) 100-25 mcg/dose inhaler Inhale 1 Inhalation as instructed once daily. levalbuterol (XOPENEX) 1.25 mg/3 mL nebulizer solution Use 1 Ampule via nebulizer every 4 hours as needed. Inhale over 5-15 minutes fluticasone (FLONASE) 50 mcg/actuation nasal spray 1-2 sprays each side qd budesonide (PULMICORT) 0.5 mg/2 mL nebulizer solution Use 1 Ampule via nebulizer twice daily. Azelastine 0.15 % (205.5 mcg) spry Use 1 Wilberforce in each nostril twice daily. COMPOUNDED PRESCRIPTION Nocturnal oximetry on room air. DME: [facility] cholestyramine-sucrose (QUESTRAN) 4 gram powder Take 1 scoop by mouth once daily. amLODIPine (NORVASC) 10 mg tablet Take 0.5 tablets by mouth once daily. cyanocobalamin (VITAMIN B-12) 1,000 mcg tab Take 1 tablet by mouth once daily. atenolol (TENORMIN) 25 mg tablet Take 1 tablet by mouth once daily. EPINEPHrine (EPIPEN) 0.3 mg/0.3 mL auto-injector Inject 0.3 mL intramuscularly as needed. predniSONE (DELTASONE) 10 mg tablet Take 2.5 tablets by mouth once daily. (Patient taking differently: Take 25 mg by mouth once daily. Total 25 mg daily ) ergocalciferol, vitamin D2, (VITAMIN D) 50,000 unit capsule Take 1 capsule by mouth once each week. (Patient taking differently: Take 50,000 Units by mouth once each week. Every Monday ) TURMERIC ROOT EXTRACT ORAL Take 1 tablet by mouth twice daily. crisaborole (EUCRISA) 2 % oint Apply to the hands twice daily COMPOUNDED PRESCRIPTION Please provide patient with nebulizer machine and supplies.Diagnosis: Severe Asthma. cetirizine (ZYRTEC) 10 mg tablet Take 10 mg by mouth once daily. pimecrolimus (ELIDEL) 1 % cream Apply twice daily to the hands ondansetron (ZOFRAN) 4 mg tablet Take 1 tablet by mouth every 8 hours as needed. Benzonatate 200 mg capsule Take 200 mg by mouth three times daily as needed for Cough. lactobacillus rhamnosus (CULTURELLE) 10 billion cell capsule Take 1 capsule by mouth twice daily. famotidine (PEPCID) 20 mg tablet Take 1 tablet by mouth twice daily. (Patient taking differently: Take 20 mg by mouth twice daily. as needed ) diphenhydrAMINE (BENADRYL) 50 mg capsule Take 1 capsule by mouth every 6 hours as needed for Itching/Rash. amoxicillin (POLYMOX, AMOXIL) 250 mg capsule Take 250 mg by mouth once daily. zafirlukast (ACCOLATE) 20 mg tablet Take 1 tablet by mouth twice daily. doxazosin (CARDURA) 2 mg tablet Take 2 mg by mouth once daily. cycloSPORINE Modified 50 mg capsule Take 50 mg by mouth twice daily. ascorbic acid (VITAMIN C) 500 mg tablet Take 1 tablet by mouth once daily. albuterol 2.5 mg /3 mL (0.083 %) nebulizer solution Use 3 mL via nebulizer one time only for 1 dose. Inhale over 5-15 minutes No current facility-administered medications for this visit. ALLERGIES Allergen Reactions - Avocado Anaphylaxis - Banana Anaphylaxis - Carbinoxamine Anaphylaxis - Yoselin Seed Anaphylaxis - Ciprofloxacin Anaphylaxis - Codeine Anaphylaxis - Contrast Dye Anaphylaxis To MRI and CT - Fish Anaphylaxis - Hycodan [Hydrocodon* Anaphylaxis Face and throat swelling - Latex Anaphylaxis - Imtiaz-Synephrine [Phe* Anaphylaxis 10% eye drop - Nickel Rash, Hives, Anaphylaxis - Nsaids (Non-Steroid* Other: See Comments Kidney function drops; reversible kidney damage. - Oxycodone Anaphylaxis - Periactin [Cyprohep* Anaphylaxis - Pneumococcal Vaccine Anaphylaxis - Shellfish Anaphylaxis - Zantac [Ranitidine] Anaphylaxis - Ativan [Lorazepam] Other: See Comments hallucination - Beef Containing Pro* Rash - Berino Other: See Comments Feels like an asthma attack. - Eggs [Egg] Rash, Vomiting - Ekg Leads [Adhesive] Rash Localized,only under the leads - Environmental [Othe* Other: See Comments Nasal congestion, brings on an asthma attack. - Influenza Virus Vac* Shortness of Breath - Lisinopril Cough - Milk Rash, Vomiting - Mometasone Anaphylaxis Per Dr. Salas she tolerates formoterol (on Breo at home) but is allergic to mometasone. Okayed by him to update. - Surgical Tape [Othe* Rash, Swelling Oral rash, swelling of eyes, asthma attacks; per pateint report. - Xolair [Omalizumab] Shortness of Breath Physical Exam: OBJECTIVE: Vascular: Dorsalis pedis and posterior tibial pulses palpable b/l Capillary Fill time < 3 seconds to digits 1-5 b/l Skin temperature warm to warm proximal to distal b/l Hair growth present to digits Neurological: Intact light touch/epicritic sensation Vibratory sensation intact to MTPJ b/l NO significant neurological deficits Dermatological: Nails 1-5 b/l appear normal. Webspaces clean and dry 1-4 b/l. Skin appears well hydrated and supple. good color, texture, turgor. No open lesions present. No callosities present. Musculoskeletal/Orthopaedic: Patient has pain and swelling to palpation of peroneal tendon L foot. Pain noted with eversion and inversion against resistance. Foot type is supinated structurally within normal limits Radiographs:06/02/2017: hx of kouts. 2 large headless screws in place with no sign of lucency or displacement. ASSESSMENT: Peroneal tendonitis versus rupture/tear L foot PLAN: 1. History and physical examination performed 2. Will extend pt as seems to be helping a little. Add iontophoresis. 3. Compression dispensed today but will not wear until DVT scan is negative. 4. US to rule out DVT L leg for chronic foot and leg swelling. 5. US to evaluate peroneal lateral ankle for cause of continuing pain/swelling despite conservative therapy. 6. RTC following pt. 7. Recommend upgrading shoes to New Balance with rollbar. Jane Meza DPM Referring Provider: ANISA CALDWELL [[id number]] Allergies As of Date: 09/13/2017 Noted Allergy Reaction AVOCADO 09/10/2014 10 - Anaphylaxis BANANA 09/10/2014 10 - Anaphylaxis CARBINOXAMINE 09/17/2012 10 - Anaphylaxis YOSELIN SEED 08/28/2013 10 - Anaphylaxis CIPROFLOXACIN 04/11/2014 10 - Anaphylaxis CODEINE 01/12/2012 10 - Anaphylaxis CONTRAST DYE 05/17/2013 10 - Anaphylaxis Comments: To MRI and CT FISH 09/07/2014 10 - Anaphylaxis HYCODAN (HYDROCODONE-HOMATROPINE) 09/08/2011 10 - Anaphylaxis Comments: Face and throat swelling LATEX 01/21/2014 10 - Anaphylaxis IMTIAZ-SYNEPHRINE (PHENYLEPHRINE HCL)09/04/2014 10 - Anaphylaxis Comments: 10% eye drop NICKEL 01/07/2014 2 - Rash 4 - Hives 10 - Anaphylaxis NSAIDS (NON-STEROIDAL ANTI-INFLAM*08/16/2010 14 - Other: See Comments Comments: Kidney function drops; reversible kidney damage. OXYCODONE 08/28/2013 10 - Anaphylaxis PERIACTIN (CYPROHEPTADINE) 09/17/2012 10 - Anaphylaxis PNEUMOCOCCAL VACCINE 10/31/2014 10 - Anaphylaxis SHELLFISH 09/07/2014 10 - Anaphylaxis ZANTAC (RANITIDINE) 09/17/2012 10 - Anaphylaxis ATIVAN (LORAZEPAM) 08/28/2013 14 - Other: See Comments Comments: hallucination BEEF CONTAINING PRODUCTS 09/10/2014 2 - Rash CORN 05/03/2011 14 - Other: See Comments Comments: Feels like an asthma attack. EGGS (EGG) 03/08/2011 2 - Rash 11 - Vomiting EKG LEADS (ADHESIVE) 10/22/2012 2 - Rash Comments: Localized,only under the leads environmental [Other] 06/26/2007 14 - Other: See Comments Comments: Nasal congestion, brings on an asthma attack. INFLUENZA VIRUS VACCINES 10/22/2012 12 - Shortness of Breath LISINOPRIL 04/20/2004 3 - Cough MILK 03/08/2011 2 - Rash 11 - Vomiting MOMETASONE 04/05/2017 10 - Anaphylaxis Comments: Per Dr. Salas she tolerates formoterol (on Breo at home) but is allergic to mometasone. Okayed by him to update. surgical tape [Other] 11/10/2009 2 - Rash 7 - Swelling Comments: Oral rash, swelling of eyes, asthma attacks; per pateint report. XOLAIR (OMALIZUMAB) 04/19/2012 12 - Shortness of Breath Date Reviewed: 09/13/2017 Reviewed by: Taty Corona Ma - Fully Assessed Reason for Visit: Follow Up [171] Cmt: lt peroneal tendonitis Primary Visit Diagnosis:Left leg swelling [M79.89] Other Visit Diagnoses:Peroneal tendonitis, left [M76.72] Swelling of foot joint, left [M25.475] Order(s):US DVT LOWER LT [2213534] Order #: [id number] FUTURE US ANKLE LT [8860820] Order #: [id number] FUTURE CONSULT TO PHYSICAL THERAPY [9032] Order #: [id number]: 1 Prescriptions as of 09/13/2017 Sig: PREGABALIN 150 MG CAPSULE Take 1 capsule by mouth twice* PREGABALIN 150 MG CAPSULE Take 1 capsule by mouth twice* ATORVASTATIN 20 MG TABLET One tab on MWF only SPIRONOLACTONE 50 MG TABLET Take 1 tablet by mouth twice * LANSOPRAZOLE 30 MG CAPSULE,DE* TAKE 1 CAPSULE TWICE A DAY BUMETANIDE 0.5 MG TABLET Take 1 tablet by mouth once d* NITROGLYCERIN 0.4 MG SUBLINGU* DISSOLVE 1 TABLET UNDER THE T* ALBUTEROL SULFATE HFA 90 MCG/* Inhale 2 Puffs as instructed * FLUTICASONE 100 MCG-VILANTERO* Inhale 1 Inhalation as instru* LEVALBUTEROL 1.25 MG/3 ML BRENDA* Use 1 Ampule via nebulizer ev* FLUTICASONE 50 MCG/ACTUATION * 1-2 sprays each side qd BUDESONIDE 0.5 MG/2 ML SUSPEN* Use 1 Ampule via nebulizer tw* AZELASTINE 0.15 % (205.5 MCG)* Use 1 Wilberforce in each nostril t* COMPOUNDED PRESCRIPTION Nocturnal oximetry on room ai* CHOLESTYRAMINE (WITH SUGAR) 4* Take 1 scoop by mouth once da* AMLODIPINE 10 MG TABLET Take 0.5 tablets by mouth onc* CYANOCOBALAMIN (VIT B-12) 1,0* Take 1 tablet by mouth once d* ATENOLOL 25 MG TABLET Take 1 tablet by mouth once d* EPINEPHRINE 0.3 MG/0.3 ML INJ* Inject 0.3 mL intramuscularly* PREDNISONE 10 MG TABLET Take 2.5 tablets by mouth onc* Patient taking differently: Take 25 mg by mouth once mary ellen* ERGOCALCIFEROL (VITAMIN D2) 5* Take 1 capsule by mouth once * Patient taking differently: Take 50,000 Units by mouth on* TURMERIC ROOT EXTRACT ORAL Take 1 tablet by mouth twice * CRISABOROLE 2 % TOPICAL OINTM* Apply to the hands twice daily COMPOUNDED PRESCRIPTION Please provide patient with n* CETIRIZINE 10 MG TABLET Take 10 mg by mouth once mary ellen* PIMECROLIMUS 1 % TOPICAL CREAM Apply twice daily to the hands ONDANSETRON HCL 4 MG TABLET Take 1 tablet by mouth every * BENZONATATE 200 MG CAPSULE Take 200 mg by mouth three ti* LACTOBACILLUS RHAMNOSUS GG 10* Take 1 capsule by mouth twice* FAMOTIDINE 20 MG TABLET Take 1 tablet by mouth twice * Patient taking differently: Take 20 mg by mouth twice liam* DIPHENHYDRAMINE 50 MG CAPSULE Take 1 capsule by mouth every* AMOXICILLIN 250 MG CAPSULE Take 250 mg by mouth once liam* ZAFIRLUKAST 20 MG TABLET Take 1 tablet by mouth twice * DOXAZOSIN 2 MG TABLET Take 2 mg by mouth once daily. CYCLOSPORINE MODIFIED 50 MG C* Take 50 mg by mouth twice liam* ASCORBIC ACID (VITAMIN C) 500* Take 1 tablet by mouth once d* ALBUTEROL SULFATE 2.5 MG/3 ML* Use 3 mL via nebulizer one ti* Problem List As Of Date 09/13/2017 Noted Resolved JOINT PAIN-ANKLE [M25.579] INVALID FOR*03/20/2014 Edema [R60.9] INVALID FOR*03/28/2016 Priority: I Adrenal nodule (HCC) [E27.9] INVALID FOR* More... Diarrhea [R19.7] INVALID FOR*10/15/2013 Excessive or frequent menstruation [N92.0] INVALID FOR*07/14/2011 Shortness of breath [R06.02] INVALID FOR*10/15/2013 Palpitations [R00.2] INVALID FOR*03/20/2014 Tachycardia, unspecified [R00.0] INVALID FOR*10/15/2013 More... Open wound site NOS [T14.8XXA] INVALID FOR*07/16/2011 Abdominal pain, right upper quadrant [R10.11] INVALID FOR*07/14/2011 More... Acute gastritis without mention of hemorrhage [*INVALID FOR*10/15/2013 Hematuria [599.7] INVALID FOR*07/14/2011 URGE INCONTINENCE [N39.41] INVALID FOR* FEMALE STRESS INCONTINENCE [N39.3] INVALID FOR* Scar, hypertrophic [L91.0] INVALID FOR*10/15/2013 Ovarian cyst [N83.209] INVALID FOR*07/06/2010 Cyst INVALID FOR*10/15/2013 Other specified pre-operative examination [Z01.*INVALID FOR*07/16/2011 Hirsutism [L68.0] INVALID FOR* Dysphagia [R13.10] INVALID FOR*03/20/2014 GERD (gastroesophageal reflux disease) [K21.9] INVALID FOR* Priority: D More... 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 Obesity (BMI 30.0-34.9) [E66.9] INVALID FOR* More... More... More... More... Idiopathic anaphylaxis [T78.2XXA] INVALID FOR* Priority: A More... Urticaria, idiopathic [L50.1] INVALID FOR*03/28/2016 More... Hyperlipidemia LDL goal <100 [E78.5] INVALID FOR* Impaired fasting glucose [R73.01] INVALID FOR* Recurrent chest pain [R07.9, G89.29] INVALID FOR*12/09/2014 Multinodular goiter [E04.2] INVALID FOR* More... CKD (chronic kidney disease) stage 3, GFR 30-59*INVALID FOR* Pain in joint, ankle and foot [M25.579] INVALID FOR*12/09/2014 More... More... Steroid-induced hyperglycemia [R73.9, T38.0X5A] INVALID FOR*03/28/2016 Priority: C Moderate persistent asthma without complication*INVALID FOR* Ulcerative colitis without complications (HCC) *INVALID FOR* Anaphylaxis [T78.2XXA] INVALID FOR*03/26/2015 More... Neck pain, bilateral [M54.2] INVALID FOR*03/28/2016 Essential hypertension with goal blood pressure*INVALID FOR*03/28/2016 Chronic nausea [R11.0] INVALID FOR* Lumbar radiculitis [M54.16] INVALID FOR*03/28/2016 Lumbar stenosis [M48.061] INVALID FOR*03/28/2016 Acquired spondylolisthesis [M43.10] INVALID FOR*03/28/2016 Cervical radiculitis [M54.12] INVALID FOR*03/28/2016 Cervical spondylosis with radiculopathy [M47.22]INVALID FOR*03/29/2017 Shoulder impingement [M75.40] INVALID FOR*03/28/2016 Anaphylaxis [T78.2XXA] INVALID FOR*03/28/2016 Tendonitis, tibialis [M76.829] INVALID FOR*05/09/2016 Lumbar stenosis [M48.061] INVALID FOR* Cervical radiculitis [M54.12] INVALID FOR*03/29/2017 Cervical herniated disc [M50.20] INVALID FOR*03/29/2017 Cervical stenosis of spine [M48.02] INVALID FOR* Cervical spondylosis with myelopathy [M47.12] INVALID FOR*03/29/2017 Cervical myelopathy (HCC) [G95.9] INVALID FOR*03/29/2017 Claustrophobia [F40.240] INVALID FOR* Ptosis of eyelid, bilateral [H02.403] INVALID FOR*03/29/2017 More... Lumbar spondylosis [M47.816] INVALID FOR* More... Preop testing [Z01.818] INVALID FOR* More... Anaphylaxis [T78.2XXA] INVALID FOR* Essential hypertension [I10] INVALID FOR* Peroneal tendinitis, left [M76.72] INVALID FOR* Other instructions from your clinician: New Balance tennis shoes with rollbar. Visit Notes: >> Taty Corona Ma MonSeptember 13, 2017 9:51 AM Status: Signed Patient presents with: Follow Up: lt peroneal tendonitis Encounter Status:Closed by JANE MEZA DPM on 09/13/17 PROGRESS Observed: 09/12/2017 Status: COMPLETED Source: [place] 11:57 AM [facility] REPOSITORY HNO ID: [id number] Author: Roseanne (PtTiarra Muro Service: (none) Author Type: Physical Therapist Type: Progress Notes Filed: 09/13/2017 11:13 AM Note Text: Episode Visit Count: 15 Therapist That Will Oversee The Plan Of Care: Taty Philip Start of Care Date: 07/21/17 Onset Date: 07/21/16 (about one year) REHABILITATION AND SPORTS THERAPY PHYSICAL THERAPY TREATMENT NOTE ASSESSMENT: Ralph Joshi demonstrated difficulty with continuation of burning pain left ankle which remains unchanged from start of care. She has no specific c/o pain with walking. Ralph has good tolerance for exercise and uneven surface was added for step ups. No change with pain with treatment and burning persists. The patient will continue to benefit from continued skilled physical therapy for plan of care update. Patient to see Dr Meza tomorrow and will continue per her recommendation. PLAN FOR NEXT VISIT: POC update next visit. SUBJECTIVE: Patient reports the exercises feel good. She reports the burning is staying the same and still has swelling left ankle. Pain Score: 4/10 Pain Location: Ankle - Left Description: Burning Frequency: Continuous Post Treatment Pain Score: No Change Pain Location: Heel - Left Post Treatment Pain Description: Burning (twinge of pain in ankle) OBJECTIVE MEASURES WITH LEVEL OF FUNCTION: Ankle Observations Comments: Edema persist left ankle with minimal improvement noted. TREATMENT: Therapeutic Exercise: 1: Step One stepper seat 11, resistance 2 x 5 minutes. 4: Forward step ups onto dome of BOSU leading with right and left LE x 10 each. 5: ankle alphabet A-Z x 2 . 6: Seated toe curls left 2x30 reps 7: Left long sitting strap assist gastroc stretch 3x30 seconds. 8: L ankle dorsiflexion with green band resistance 3 x 10 reps 9: L ankle plantarflexion with green band resistance 3 x 10 reps 10: L ankle inversion with green band resistance 3 x 10 reps 11: L ankle eversion with green band resistance 3 x 10 reps 12: Standing BAPS ball 3 left PWB with 2.5# each post cw and ccw x 10 each. Skilled Intervention: Patient was educated in proper exercise technique and purpose for exercises. Skilled judgment was provided in selection of appropriate interventions. Correct performance of therapeutic exercises was facilitated with verbal and visual cuing. Manual Therapy: 1: IASTM with boomerrang and tongue depressor left lateral malleolar/peroneal and gastroc region x 10 minutes with pressure to patient tolerance. Skilled Intervention: Manual skills to improve joint mobility, ROM, and decrease pain. Utilized anatomy knowledge of the therapist, and assessment of patient's response to intervention. Modalities: Ultrasound See flowsheet for details regarding treatment. Skilled Intervention: Proper administration and selection of modality based on clinical presentation, deficits, and needs. Patient response monitored throughout treatment. Billing: [facility]: Therapeutic Exercise (95061): 1:1 time: 22 minutes (1 units: 8-22mins) Manual Therapy (65464): 1:1 time: 10 minutes (1 unit: 8-22 mins) Modalities Ultrasound (64472) 1:1 time: 10 minutes1 unit: 8-22 mins Total time: 42 minutes VIK Glez PT CNTHERAPY Observed: 09/12/2017 Status: COMPLETED Source: [place] 8:30 AM [facility] REPOSITORY OT/PT/Speech Visit (PTWS) RALPH JOSHI ([id number]) 1955 F Date Time Provider Department 09/12/17 8:30 AM MICHAELA BLAKELY ([employer]) PTWS Date Time Provider Department [place] 09/12/2017 8:30 AM [id number], NANCY ([employer]) PTWS [facility] Reason for Visit: Physical Therapy [503] Primary Visit Diagnosis:Peroneal tendinitis, left [M76.72] Allergies As of Date: 09/12/2017 Noted Allergy Reaction AVOCADO 09/10/2014 10 - Anaphylaxis BANANA 09/10/2014 10 - Anaphylaxis CARBINOXAMINE 09/17/2012 10 - Anaphylaxis YOSELIN SEED 08/28/2013 10 - Anaphylaxis CIPROFLOXACIN 04/11/2014 10 - Anaphylaxis CODEINE 01/12/2012 10 - Anaphylaxis CONTRAST DYE 05/17/2013 10 - Anaphylaxis Comments: To MRI and CT FISH 09/07/2014 10 - Anaphylaxis HYCODAN (HYDROCODONE-HOMATROPINE) 09/08/2011 10 - Anaphylaxis Comments: Face and throat swelling LATEX 01/21/2014 10 - Anaphylaxis IMTAIZ-SYNEPHRINE (PHENYLEPHRINE HCL)09/04/2014 10 - Anaphylaxis Comments: 10% eye drop NICKEL 01/07/2014 2 - Rash 4 - Hives 10 - Anaphylaxis NSAIDS (NON-STEROIDAL ANTI-INFLAM*08/16/2010 14 - Other: See Comments Comments: Kidney function drops; reversible kidney damage. OXYCODONE 08/28/2013 10 - Anaphylaxis PERIACTIN (CYPROHEPTADINE) 09/17/2012 10 - Anaphylaxis PNEUMOCOCCAL VACCINE 10/31/2014 10 - Anaphylaxis SHELLFISH 09/07/2014 10 - Anaphylaxis ZANTAC (RANITIDINE) 09/17/2012 10 - Anaphylaxis ATIVAN (LORAZEPAM) 08/28/2013 14 - Other: See Comments Comments: hallucination BEEF CONTAINING PRODUCTS 09/10/2014 2 - Rash CORN 05/03/2011 14 - Other: See Comments Comments: Feels like an asthma attack. EGGS (EGG) 03/08/2011 2 - Rash 11 - Vomiting EKG LEADS (ADHESIVE) 10/22/2012 2 - Rash Comments: Localized,only under the leads environmental [Other] 06/26/2007 14 - Other: See Comments Comments: Nasal congestion, brings on an asthma attack. INFLUENZA VIRUS VACCINES 10/22/2012 12 - Shortness of Breath LISINOPRIL 04/20/2004 3 - Cough MILK 03/08/2011 2 - Rash 11 - Vomiting MOMETASONE 04/05/2017 10 - Anaphylaxis Comments: Per Dr. Salas she tolerates formoterol (on Breo at home) but is allergic to mometasone. Okayed by him to update. surgical tape [Other] 11/10/2009 2 - Rash 7 - Swelling Comments: Oral rash, swelling of eyes, asthma attacks; per pateint report. XOLAIR (OMALIZUMAB) 04/19/2012 12 - Shortness of Breath Date Reviewed: 07/27/2017 Reviewed by: Liam Payne Ma - Fully Assessed Prescriptions as of 09/12/2017 Sig: PREGABALIN 150 MG CAPSULE Take 1 capsule by mouth twice* PREGABALIN 150 MG CAPSULE Take 1 capsule by mouth twice* ATORVASTATIN 20 MG TABLET One tab on MWF only SPIRONOLACTONE 50 MG TABLET Take 1 tablet by mouth twice * LANSOPRAZOLE 30 MG CAPSULE,DE* TAKE 1 CAPSULE TWICE A DAY BUMETANIDE 0.5 MG TABLET Take 1 tablet by mouth once d* NITROGLYCERIN 0.4 MG SUBLINGU* DISSOLVE 1 TABLET UNDER THE T* ALBUTEROL SULFATE HFA 90 MCG/* Inhale 2 Puffs as instructed * FLUTICASONE 100 MCG-VILANTERO* Inhale 1 Inhalation as instru* LEVALBUTEROL 1.25 MG/3 ML BRENDA* Use 1 Ampule via nebulizer ev* FLUTICASONE 50 MCG/ACTUATION * 1-2 sprays each side qd BUDESONIDE 0.5 MG/2 ML SUSPEN* Use 1 Ampule via nebulizer tw* AZELASTINE 0.15 % (205.5 MCG)* Use 1 Wilberforce in each nostril t* COMPOUNDED PRESCRIPTION Nocturnal oximetry on room ai* CHOLESTYRAMINE (WITH SUGAR) 4* Take 1 scoop by mouth once da* AMLODIPINE 10 MG TABLET Take 0.5 tablets by mouth onc* CYANOCOBALAMIN (VIT B-12) 1,0* Take 1 tablet by mouth once d* ATENOLOL 25 MG TABLET Take 1 tablet by mouth once d* EPINEPHRINE 0.3 MG/0.3 ML INJ* Inject 0.3 mL intramuscularly* PREDNISONE 10 MG TABLET Take 2.5 tablets by mouth onc* Patient taking differently: Take 25 mg by mouth once mary ellen* ERGOCALCIFEROL (VITAMIN D2) 5* Take 1 capsule by mouth once * Patient taking differently: Take 50,000 Units by mouth on* TURMERIC ROOT EXTRACT ORAL Take 1 tablet by mouth twice * CRISABOROLE 2 % TOPICAL OINTM* Apply to the hands twice daily COMPOUNDED PRESCRIPTION Please provide patient with n* CETIRIZINE 10 MG TABLET Take 10 mg by mouth once mary ellen* PIMECROLIMUS 1 % TOPICAL CREAM Apply twice daily to the hands ONDANSETRON HCL 4 MG TABLET Take 1 tablet by mouth every * BENZONATATE 200 MG CAPSULE Take 200 mg by mouth three ti* LACTOBACILLUS RHAMNOSUS GG 10* Take 1 capsule by mouth twice* FAMOTIDINE 20 MG TABLET Take 1 tablet by mouth twice * Patient taking differently: Take 20 mg by mouth twice liam* DIPHENHYDRAMINE 50 MG CAPSULE Take 1 capsule by mouth every* AMOXICILLIN 250 MG CAPSULE Take 250 mg by mouth once liam* ZAFIRLUKAST 20 MG TABLET Take 1 tablet by mouth twice * DOXAZOSIN 2 MG TABLET Take 2 mg by mouth once daily. CYCLOSPORINE MODIFIED 50 MG C* Take 50 mg by mouth twice liam* ASCORBIC ACID (VITAMIN C) 500* Take 1 tablet by mouth once d* ALBUTEROL SULFATE 2.5 MG/3 ML* Use 3 mL via nebulizer one ti* Progress Notes: Roseanne Muro, PT 09/13/2017 11:13 AM Signed Episode Visit Count: 15 Therapist That Will Oversee The Plan Of Care: Taty Philip Start of Care Date: 07/21/17 Onset Date: 07/21/16 (about one year) REHABILITATION AND SPORTS THERAPY PHYSICAL THERAPY TREATMENT NOTE ASSESSMENT: Ralph Joshi demonstrated difficulty with continuation of burning pain left ankle which remains unchanged from start of care. She has no specific c/o pain with walking. Ralph has good tolerance for exercise and uneven surface was added for step ups. No change with pain with treatment and burning persists. The patient will continue to benefit from continued skilled physical therapy for plan of care update. Patient to see Dr Meza tomorrow and will continue per her recommendation. PLAN FOR NEXT VISIT: POC update next visit. SUBJECTIVE: Patient reports the exercises feel good. She reports the burning is staying the same and still has swelling left ankle. Pain Score: 4/10 Pain Location: Ankle - Left Description: Burning Frequency: Continuous Post Treatment Pain Score: No Change Pain Location: Heel - Left Post Treatment Pain Description: Burning (twinge of pain in ankle) OBJECTIVE MEASURES WITH LEVEL OF FUNCTION: Ankle Observations Comments: Edema persist left ankle with minimal improvement noted. TREATMENT: Therapeutic Exercise: 1: Step One stepper seat 11, resistance 2 x 5 minutes. 4: Forward step ups onto dome of BOSU leading with right and left LE x 10 each. 5: ankle alphabet A-Z x 2 . 6: Seated toe curls left 2x30 reps 7: Left long sitting strap assist gastroc stretch 3x30 seconds. 8: L ankle dorsiflexion with green band resistance 3 x 10 reps 9: L ankle plantarflexion with green band resistance 3 x 10 reps 10: L ankle inversion with green band resistance 3 x 10 reps 11: L ankle eversion with green band resistance 3 x 10 reps 12: Standing BAPS ball 3 left PWB with 2.5# each post cw and ccw x 10 each. Skilled Intervention: Patient was educated in proper exercise technique and purpose for exercises. Skilled judgment was provided in selection of appropriate interventions. Correct performance of therapeutic exercises was facilitated with verbal and visual cuing. Manual Therapy: 1: IASTM with boomerrang and tongue depressor left lateral malleolar/peroneal and gastroc region x 10 minutes with pressure to patient tolerance. Skilled Intervention: Manual skills to improve joint mobility, ROM, and decrease pain. Utilized anatomy knowledge of the therapist, and assessment of patient's response to intervention. Modalities: Ultrasound See flowsheet for details regarding treatment. Skilled Intervention: Proper administration and selection of modality based on clinical presentation, deficits, and needs. Patient response monitored throughout treatment. Billing: [facility]: Therapeutic Exercise (58854): 1:1 time: 22 minutes (1 units: 8-22mins) Manual Therapy (58617): 1:1 time: 10 minutes (1 unit: 8-22 mins) Modalities Ultrasound (04599) 1:1 time: 10 minutes1 unit: 8-22 mins Total time: 42 minutes Michaela Blakely, PT-Yoli Muro PT Previous Version Follow-up and Disposition History Recorded CNCO Observed: 09/12/2017 Status: COMPLETED Source: [place] 12:00 AM [facility] REPOSITORY Letter Text Bianca Rolle MD Department of Endocrinology [facility] [address] [place] [address], [address] [place] [address] Ralph M Adi September 12, 2017 Ralph Joshi [address] [place] [address] Dear Ms. Joshi, Due to a change in your provider's schedule, it has become necessary to cancel the following appointment: Bianca Rolle MD Date: 03/28/18 We apologize for any inconvenience to you however your provider would still like to see you. Please call us at [phone] to reschedule your appointment. Thank you. Sincerely, Appointment Staff PROGRESS Observed: 09/06/2017 Status: COMPLETED Source: [place] 9:04 AM [facility] [place] REPOSITORY HNO ID: [id number] Author: Taty (Pt) Cedrick Service: (none) Author Type: Physical Therapist Type: Progress Notes Filed: 09/06/2017 9:59 AM Note Text: Episode Visit Count: 14 Therapist That Will Oversee The Plan Of Care: Taty Philip Start of Care Date: 07/21/17 Onset Date: 07/21/16 (about one year) Patient Identified by Name and Date of : Yes REHABILITATION AND SPORTS THERAPY PHYSICAL THERAPY TREATMENT NOTE ASSESSMENT: Ralph Joshi demonstrated difficulty with maintaining correct ankle position throughout BAPS activities. Pt was able to advance sets of resistive band exercises today with good tolerance. The patient will continue to benefit from continued skilled physical therapy for strengthening, manual techniques and modalities to achieve goal of pain free function. PLAN FOR NEXT VISIT: May add pegs and weight plate to BAPS activity. Continue with IASTM d/t favorable response. SUBJECTIVE: Pt stating her ankle has been staying about the same since last visit. States, It feels pretty good today. Pain Score: 3/10 Pain Location: Ankle - Left Description: Burning Frequency: Continuous Post Treatment Pain Score: 1/10 Pain Location: Ankle - Left Post Treatment Pain Description: (Mild tinge) OBJECTIVE MEASURES WITH LEVEL OF FUNCTION: Pt demonstrated fair control on BAPS board with CW/CCW direction and required to reset position correction through each set. TREATMENT: Therapeutic Exercise: 1: Step One stepper seat 11, resistance 2 x 6 minutes. 2: AROM ankle pumps left 1 x 20 reps 3: AROM ankle left inversion/eversion1 x 20 reps 4: ankle circles left CW and CCW 1x 20 each 5: ankle alphabet A-Z x 1 . 6: Seated toe curls left 2x30 reps 7: Left long sitting strap assist gastroc stretch 3x30 seconds. 8: L ankle dorsiflexion with orange band resistance 3 x 10 reps 9: L ankle plantarflexion with orange band resistance 3 x 10 reps 10: L ankle inversion with orange band resistance 3 x 10 reps 11: L ankle eversion with orange band resistance 3 x 10 reps 12: Standing BAPS ball 3 left PWB A/P, lateral and circles cw and ccw 2x20 Skilled Intervention: Patient was educated in proper exercise technique and purpose for exercises. Reviewed and educated patient on additions/changes for home exercise program and pt is to continue current HEP. Skilled judgment was provided in selection of appropriate interventions. Correct performance of therapeutic exercises was facilitated with verbal and visual cuing. Patient education as noted. Manual Therapy: 1: IASTM with boomerrang and tongue depressor left lateral malleolar/peroneal and gastroc region x 10 minutes with pressure to patient tolerance. Skilled Intervention: Manual skills to improve joint mobility, ROM, and decrease pain. Utilized anatomy knowledge of the therapist, and assessment of patient's response to intervention. Modalities: Ultrasound See flowsheet for details regarding treatment. Skilled Intervention: Proper administration and selection of modality based on clinical presentation, deficits, and needs. Patient response monitored throughout treatment. Billing: [facility]: Therapeutic Exercise (38331): 1:1 time: 22 minutes (1 unit: 8-22 mins) Manual Therapy (02885): 1:1 time: 10 minutes (1 unit: 8-22 mins) Modalities Ultrasound ([id number]) 1:1 time: 10 minutes1 unit: 8-22 mins Total time: 42 minutes Taty Philip PT CNTHERAPY Observed: 09/06/2017 Status: COMPLETED Source: [place] 8:45 AM [facility] REPOSITORY OT/PT/Speech Visit (PTWS) RALPH JOSHI ([id number]) 1955 F Date Time Provider Department 09/06/17 8:45 AM TATY PHILIPPT) PTWS Date Time Provider Department [place] 09/06/2017 8:45 AM [id number] PHILIP (PT) PTWS [facility] Reason for Visit: Physical Therapy [503] Primary Visit Diagnosis:Peroneal tendinitis, left [M76.72] Allergies As of Date: 09/06/2017 Noted Allergy Reaction AVOCADO 09/10/2014 10 - Anaphylaxis BANANA 09/10/2014 10 - Anaphylaxis CARBINOXAMINE 09/17/2012 10 - Anaphylaxis YOSELIN SEED 08/28/2013 10 - Anaphylaxis CIPROFLOXACIN 04/11/2014 10 - Anaphylaxis CODEINE 01/12/2012 10 - Anaphylaxis CONTRAST DYE 05/17/2013 10 - Anaphylaxis Comments: To MRI and CT FISH 09/07/2014 10 - Anaphylaxis HYCODAN (HYDROCODONE-HOMATROPINE) 09/08/2011 10 - Anaphylaxis Comments: Face and throat swelling LATEX 01/21/2014 10 - Anaphylaxis IMTIAZ-SYNEPHRINE (PHENYLEPHRINE HCL)09/04/2014 10 - Anaphylaxis Comments: 10% eye drop NICKEL 01/07/2014 2 - Rash 4 - Hives 10 - Anaphylaxis NSAIDS (NON-STEROIDAL ANTI-INFLAM*08/16/2010 14 - Other: See Comments Comments: Kidney function drops; reversible kidney damage. OXYCODONE 08/28/2013 10 - Anaphylaxis PERIACTIN (CYPROHEPTADINE) 09/17/2012 10 - Anaphylaxis PNEUMOCOCCAL VACCINE 10/31/2014 10 - Anaphylaxis SHELLFISH 09/07/2014 10 - Anaphylaxis ZANTAC (RANITIDINE) 09/17/2012 10 - Anaphylaxis ATIVAN (LORAZEPAM) 08/28/2013 14 - Other: See Comments Comments: hallucination BEEF CONTAINING PRODUCTS 09/10/2014 2 - Rash CORN 05/03/2011 14 - Other: See Comments Comments: Feels like an asthma attack. EGGS (EGG) 03/08/2011 2 - Rash 11 - Vomiting EKG LEADS (ADHESIVE) 10/22/2012 2 - Rash Comments: Localized,only under the leads environmental [Other] 06/26/2007 14 - Other: See Comments Comments: Nasal congestion, brings on an asthma attack. INFLUENZA VIRUS VACCINES 10/22/2012 12 - Shortness of Breath LISINOPRIL 04/20/2004 3 - Cough MILK 03/08/2011 2 - Rash 11 - Vomiting MOMETASONE 04/05/2017 10 - Anaphylaxis Comments: Per Dr. Salas she tolerates formoterol (on Breo at home) but is allergic to mometasone. Okayed by him to update. surgical tape [Other] 11/10/2009 2 - Rash 7 - Swelling Comments: Oral rash, swelling of eyes, asthma attacks; per pateint report. XOLAIR (OMALIZUMAB) 04/19/2012 12 - Shortness of Breath Date Reviewed: 07/27/2017 Reviewed by: Liam Payne Ma - Fully Assessed Prescriptions as of 09/06/2017 Sig: PREGABALIN 150 MG CAPSULE Take 1 capsule by mouth twice* PREGABALIN 150 MG CAPSULE Take 1 capsule by mouth twice* ATORVASTATIN 20 MG TABLET One tab on MWF only SPIRONOLACTONE 50 MG TABLET Take 1 tablet by mouth twice * LANSOPRAZOLE 30 MG CAPSULE,DE* TAKE 1 CAPSULE TWICE A DAY BUMETANIDE 0.5 MG TABLET Take 1 tablet by mouth once d* NITROGLYCERIN 0.4 MG SUBLINGU* DISSOLVE 1 TABLET UNDER THE T* ALBUTEROL SULFATE HFA 90 MCG/* Inhale 2 Puffs as instructed * FLUTICASONE 100 MCG-VILANTERO* Inhale 1 Inhalation as instru* LEVALBUTEROL 1.25 MG/3 ML BRENDA* Use 1 Ampule via nebulizer ev* FLUTICASONE 50 MCG/ACTUATION * 1-2 sprays each side qd BUDESONIDE 0.5 MG/2 ML SUSPEN* Use 1 Ampule via nebulizer tw* AZELASTINE 0.15 % (205.5 MCG)* Use 1 Wilberforce in each nostril t* COMPOUNDED PRESCRIPTION Nocturnal oximetry on room ai* CHOLESTYRAMINE (WITH SUGAR) 4* Take 1 scoop by mouth once da* AMLODIPINE 10 MG TABLET Take 0.5 tablets by mouth onc* CYANOCOBALAMIN (VIT B-12) 1,0* Take 1 tablet by mouth once d* ATENOLOL 25 MG TABLET Take 1 tablet by mouth once d* EPINEPHRINE 0.3 MG/0.3 ML INJ* Inject 0.3 mL intramuscularly* PREDNISONE 10 MG TABLET Take 2.5 tablets by mouth onc* Patient taking differently: Take 25 mg by mouth once mary ellen* ERGOCALCIFEROL (VITAMIN D2) 5* Take 1 capsule by mouth once * Patient taking differently: Take 50,000 Units by mouth on* TURMERIC ROOT EXTRACT ORAL Take 1 tablet by mouth twice * CRISABOROLE 2 % TOPICAL OINTM* Apply to the hands twice daily COMPOUNDED PRESCRIPTION Please provide patient with n* CETIRIZINE 10 MG TABLET Take 10 mg by mouth once mary ellen* PIMECROLIMUS 1 % TOPICAL CREAM Apply twice daily to the hands ONDANSETRON HCL 4 MG TABLET Take 1 tablet by mouth every * BENZONATATE 200 MG CAPSULE Take 200 mg by mouth three ti* LACTOBACILLUS RHAMNOSUS GG 10* Take 1 capsule by mouth twice* FAMOTIDINE 20 MG TABLET Take 1 tablet by mouth twice * Patient taking differently: Take 20 mg by mouth twice liam* DIPHENHYDRAMINE 50 MG CAPSULE Take 1 capsule by mouth every* AMOXICILLIN 250 MG CAPSULE Take 250 mg by mouth once liam* ZAFIRLUKAST 20 MG TABLET Take 1 tablet by mouth twice * DOXAZOSIN 2 MG TABLET Take 2 mg by mouth once daily. CYCLOSPORINE MODIFIED 50 MG C* Take 50 mg by mouth twice liam* ASCORBIC ACID (VITAMIN C) 500* Take 1 tablet by mouth once d* ALBUTEROL SULFATE 2.5 MG/3 ML* Use 3 mL via nebulizer one ti* Progress Notes: Taty Philip, PT 09/06/2017 9:59 AM Signed Episode Visit Count: 14 Therapist That Will Oversee The Plan Of Care: Taty Philip Start of Care Date: 07/21/17 Onset Date: 07/21/16 (about one year) Patient Identified by Name and Date of : Yes REHABILITATION AND SPORTS THERAPY PHYSICAL THERAPY TREATMENT NOTE ASSESSMENT: Ralph Joshi demonstrated difficulty with maintaining correct ankle position throughout BAPS activities. Pt was able to advance sets of resistive band exercises today with good tolerance. The patient will continue to benefit from continued skilled physical therapy for strengthening, manual techniques and modalities to achieve goal of pain free function. PLAN FOR NEXT VISIT: May add pegs and weight plate to BAPS activity. Continue with IASTM d/t favorable response. SUBJECTIVE: Pt stating her ankle has been staying about the same since last visit. States, It feels pretty good today. Pain Score: 3/10 Pain Location: Ankle - Left Description: Burning Frequency: Continuous Post Treatment Pain Score: 1/10 Pain Location: Ankle - Left Post Treatment Pain Description: (Mild tinge) OBJECTIVE MEASURES WITH LEVEL OF FUNCTION: Pt demonstrated fair control on BAPS board with CW/CCW direction and required to reset position correction through each set. TREATMENT: Therapeutic Exercise: 1: Step One stepper seat 11, resistance 2 x 6 minutes. 2: AROM ankle pumps left 1 x 20 reps 3: AROM ankle left inversion/eversion1 x 20 reps 4: ankle circles left CW and CCW 1x 20 each 5: ankle alphabet A-Z x 1 . 6: Seated toe curls left 2x30 reps 7: Left long sitting strap assist gastroc stretch 3x30 seconds. 8: L ankle dorsiflexion with orange band resistance 3 x 10 reps 9: L ankle plantarflexion with orange band resistance 3 x 10 reps 10: L ankle inversion with orange band resistance 3 x 10 reps 11: L ankle eversion with orange band resistance 3 x 10 reps 12: Standing BAPS ball 3 left PWB A/P, lateral and circles cw and ccw 2x20 Skilled Intervention: Patient was educated in proper exercise technique and purpose for exercises. Reviewed and educated patient on additions/changes for home exercise program and pt is to continue current HEP. Skilled judgment was provided in selection of appropriate interventions. Correct performance of therapeutic exercises was facilitated with verbal and visual cuing. Patient education as noted. Manual Therapy: 1: IASTM with boomerrang and tongue depressor left lateral malleolar/peroneal and gastroc region x 10 minutes with pressure to patient tolerance. Skilled Intervention: Manual skills to improve joint mobility, ROM, and decrease pain. Utilized anatomy knowledge of the therapist, and assessment of patient's response to intervention. Modalities: Ultrasound See flowsheet for details regarding treatment. Skilled Intervention: Proper administration and selection of modality based on clinical presentation, deficits, and needs. Patient response monitored throughout treatment. Billing: [facility]: Therapeutic Exercise (42650): 1:1 time: 22 minutes (1 unit: 8-22 mins) Manual Therapy (22700): 1:1 time: 10 minutes (1 unit: 8-22 mins) Modalities Ultrasound ([id number]) 1:1 time: 10 minutes1 unit: 8-22 mins Total time: 42 minutes Taty Philip PT PROGRESS Observed: 09/04/2017 Status: COMPLETED Source: [place] 12:45 PM [facility] REPOSITORY HNO ID: [id number] Author: Taty (Pt) Cedrick Service: (none) Author Type: Physical Therapist Type: Progress Notes Filed: 09/04/2017 3:01 PM Note Text: Episode Visit Count: 13 Therapist That Will Oversee The Plan Of Care: CedrickAggieTaty Start of Care Date: 07/21/17 Onset Date: 07/21/16 (about one year) REHABILITATION AND SPORTS THERAPY PHYSICAL THERAPY TREATMENT NOTE ASSESSMENT: Ralph Joshi demonstrated difficulty with continuation of edema posterior and lateral left malleoli. She has no pain with walking. Advanced BAPS today to standing PWB with good form noted. The patient will continue to benefit from continued skilled physical therapy for progression of exercise , US and manual therapy to improve function and decrease burning. PLAN FOR NEXT VISIT: Monitor response to IASTM and continue with BAPS and active ex per patient tolerance. SUBJECTIVE: Patient reports less swelling today. She reports she still has burning in left ankle. Pain Score: 3/10 Pain Location: Ankle - Left Description: Burning Frequency: Continuous Post Treatment Pain Score: 2/10 Pain Location: Ankle - Left Post Treatment Pain Description: Burning OBJECTIVE MEASURES WITH LEVEL OF FUNCTION: Significant edema left posterior and lateral malleoli. TREATMENT: Therapeutic Exercise: 1: Step One stepper seat 11, resistance 2 x 5 minutes. 2: AROM ankle pumps left 1 x 20 reps 3: AROM ankle left inversion/eversion1 x 20 reps 4: ankle circles left CW and CCW 1x 20 each 5: ankle alphabet A-Z x 1 . 6: Seated toe curls left 2x30 reps 7: Standing BAPS ball 3 left PWB A/P, lateral and circles cw and ccw 2x20 8: Left long sitting strap assist gastroc stretch 3x30 seconds. 9: L ankle dorsiflexion with orange band resistance 2 x 10 reps 10: L ankle plantarflexion with orange band resistance 2 x 10 reps 11: L ankle inversion with orange band resistance 2 x 10 reps 12: L ankle eversion with orange band resistance 2 x 10 reps Skilled Intervention: Patient was educated in proper exercise technique and purpose for exercises. Skilled judgment was provided in selection of appropriate interventions. Correct performance of therapeutic exercises was facilitated with verbal cuing. Manual Therapy: 1: IASTM with boomerrang and tongue depressor left ankle and gastroc region x 10 minutes with push to patient tolerance. Skilled Intervention: Manual skills to improve joint mobility, ROM, and decrease pain. Utilized anatomy knowledge of the therapist, and assessment of patient's response to intervention. Modalities: Ultrasound See flowsheet for details regarding treatment. Skilled Intervention: Proper administration and selection of modality based on clinical presentation, deficits, and needs. Patient response monitored throughout treatment. Billing: [facility]: Therapeutic Exercise ([id number]): 1:1 time: 22 minutes (1 unit: 8-22 mins) Manual Therapy (16508): 1:1 time: 10 minutes (1 unit: 8-22 mins) Modalities Ultrasound ([id number]) 1:1 time: 10 minutes1 unit: 8-22 mins Total time: 42 minutes Michaela Blakely PTWilliam Philip PT CNTHERAPY Observed: 09/04/2017 Status: COMPLETED Source: [place] 8:30 AM [facility] REPOSITORY OT/PT/Speech Visit (PTWS) RALPH JOSHI ([id number]) 1955 F Date Time Provider Department 09/04/17 8:30 AM MICHAELA BLAKELY ([employer]) PTWS Date Time Provider Department Center 09/04/2017 8:30 AM [id number], NANCY ([employer]ER) PTWS [facility] [place] Reason for Visit: Physical Therapy [503] Primary Visit Diagnosis:Peroneal tendinitis, left [M76.72] Allergies As of Date: 09/04/2017 Noted Allergy Reaction AVOCADO 09/10/2014 10 - Anaphylaxis BANANA 09/10/2014 10 - Anaphylaxis CARBINOXAMINE 09/17/2012 10 - Anaphylaxis YOSELIN SEED 08/28/2013 10 - Anaphylaxis CIPROFLOXACIN 04/11/2014 10 - Anaphylaxis CODEINE 01/12/2012 10 - Anaphylaxis CONTRAST DYE 05/17/2013 10 - Anaphylaxis Comments: To MRI and CT FISH 09/07/2014 10 - Anaphylaxis HYCODAN (HYDROCODONE-HOMATROPINE) 09/08/2011 10 - Anaphylaxis Comments: Face and throat swelling LATEX 01/21/2014 10 - Anaphylaxis IMTIAZ-SYNEPHRINE (PHENYLEPHRINE HCL)09/04/2014 10 - Anaphylaxis Comments: 10% eye drop NICKEL 01/07/2014 2 - Rash 4 - Hives 10 - Anaphylaxis NSAIDS (NON-STEROIDAL ANTI-INFLAM*08/16/2010 14 - Other: See Comments Comments: Kidney function drops; reversible kidney damage. OXYCODONE 08/28/2013 10 - Anaphylaxis PERIACTIN (CYPROHEPTADINE) 09/17/2012 10 - Anaphylaxis PNEUMOCOCCAL VACCINE 10/31/2014 10 - Anaphylaxis SHELLFISH 09/07/2014 10 - Anaphylaxis ZANTAC (RANITIDINE) 09/17/2012 10 - Anaphylaxis ATIVAN (LORAZEPAM) 08/28/2013 14 - Other: See Comments Comments: hallucination BEEF CONTAINING PRODUCTS 09/10/2014 2 - Rash CORN 05/03/2011 14 - Other: See Comments Comments: Feels like an asthma attack. EGGS (EGG) 03/08/2011 2 - Rash 11 - Vomiting EKG LEADS (ADHESIVE) 10/22/2012 2 - Rash Comments: Localized,only under the leads environmental [Other] 06/26/2007 14 - Other: See Comments Comments: Nasal congestion, brings on an asthma attack. INFLUENZA VIRUS VACCINES 10/22/2012 12 - Shortness of Breath LISINOPRIL 04/20/2004 3 - Cough MILK 03/08/2011 2 - Rash 11 - Vomiting MOMETASONE 04/05/2017 10 - Anaphylaxis Comments: Per Dr. Salas she tolerates formoterol (on Breo at home) but is allergic to mometasone. Okayed by him to update. surgical tape [Other] 11/10/2009 2 - Rash 7 - Swelling Comments: Oral rash, swelling of eyes, asthma attacks; per pateint report. XOLAIR (OMALIZUMAB) 04/19/2012 12 - Shortness of Breath Date Reviewed: 07/27/2017 Reviewed by: Liam Payne Ma - Fully Assessed Prescriptions as of 09/04/2017 Sig: PREGABALIN 150 MG CAPSULE Take 1 capsule by mouth twice* PREGABALIN 150 MG CAPSULE Take 1 capsule by mouth twice* ATORVASTATIN 20 MG TABLET One tab on MWF only SPIRONOLACTONE 50 MG TABLET Take 1 tablet by mouth twice * LANSOPRAZOLE 30 MG CAPSULE,DE* TAKE 1 CAPSULE TWICE A DAY BUMETANIDE 0.5 MG TABLET Take 1 tablet by mouth once d* NITROGLYCERIN 0.4 MG SUBLINGU* DISSOLVE 1 TABLET UNDER THE T* ALBUTEROL SULFATE HFA 90 MCG/* Inhale 2 Puffs as instructed * FLUTICASONE 100 MCG-VILANTERO* Inhale 1 Inhalation as instru* LEVALBUTEROL 1.25 MG/3 ML BRENDA* Use 1 Ampule via nebulizer ev* FLUTICASONE 50 MCG/ACTUATION * 1-2 sprays each side qd BUDESONIDE 0.5 MG/2 ML SUSPEN* Use 1 Ampule via nebulizer tw* AZELASTINE 0.15 % (205.5 MCG)* Use 1 Wilberforce in each nostril t* COMPOUNDED PRESCRIPTION Nocturnal oximetry on room ai* CHOLESTYRAMINE (WITH SUGAR) 4* Take 1 scoop by mouth once da* AMLODIPINE 10 MG TABLET Take 0.5 tablets by mouth onc* CYANOCOBALAMIN (VIT B-12) 1,0* Take 1 tablet by mouth once d* ATENOLOL 25 MG TABLET Take 1 tablet by mouth once d* EPINEPHRINE 0.3 MG/0.3 ML INJ* Inject 0.3 mL intramuscularly* PREDNISONE 10 MG TABLET Take 2.5 tablets by mouth onc* Patient taking differently: Take 25 mg by mouth once mary ellen* ERGOCALCIFEROL (VITAMIN D2) 5* Take 1 capsule by mouth once * Patient taking differently: Take 50,000 Units by mouth on* TURMERIC ROOT EXTRACT ORAL Take 1 tablet by mouth twice * CRISABOROLE 2 % TOPICAL OINTM* Apply to the hands twice daily COMPOUNDED PRESCRIPTION Please provide patient with n* CETIRIZINE 10 MG TABLET Take 10 mg by mouth once mary ellen* PIMECROLIMUS 1 % TOPICAL CREAM Apply twice daily to the hands ONDANSETRON HCL 4 MG TABLET Take 1 tablet by mouth every * BENZONATATE 200 MG CAPSULE Take 200 mg by mouth three ti* LACTOBACILLUS RHAMNOSUS GG 10* Take 1 capsule by mouth twice* FAMOTIDINE 20 MG TABLET Take 1 tablet by mouth twice * Patient taking differently: Take 20 mg by mouth twice liam* DIPHENHYDRAMINE 50 MG CAPSULE Take 1 capsule by mouth every* AMOXICILLIN 250 MG CAPSULE Take 250 mg by mouth once liam* ZAFIRLUKAST 20 MG TABLET Take 1 tablet by mouth twice * DOXAZOSIN 2 MG TABLET Take 2 mg by mouth once daily. CYCLOSPORINE MODIFIED 50 MG C* Take 50 mg by mouth twice liam* ASCORBIC ACID (VITAMIN C) 500* Take 1 tablet by mouth once d* ALBUTEROL SULFATE 2.5 MG/3 ML* Use 3 mL via nebulizer one ti* Progress Notes: Taty Philip, PT 09/04/2017 3:01 PM Signed Episode Visit Count: 13 Therapist That Will Oversee The Plan Of Care: Taty Philip Start of Care Date: 07/21/17 Onset Date: 07/21/16 (about one year) REHABILITATION AND SPORTS THERAPY PHYSICAL THERAPY TREATMENT NOTE ASSESSMENT: Ralph Joshi demonstrated difficulty with continuation of edema posterior and lateral left malleoli. She has no pain with walking. Advanced BAPS today to standing PWB with good form noted. The patient will continue to benefit from continued skilled physical therapy for progression of exercise , US and manual therapy to improve function and decrease burning. PLAN FOR NEXT VISIT: Monitor response to IASTM and continue with BAPS and active ex per patient tolerance. SUBJECTIVE: Patient reports less swelling today. She reports she still has burning in left ankle. Pain Score: 3/10 Pain Location: Ankle - Left Description: Burning Frequency: Continuous Post Treatment Pain Score: 2/10 Pain Location: Ankle - Left Post Treatment Pain Description: Burning OBJECTIVE MEASURES WITH LEVEL OF FUNCTION: Significant edema left posterior and lateral malleoli. TREATMENT: Therapeutic Exercise: 1: Step One stepper seat 11, resistance 2 x 5 minutes. 2: AROM ankle pumps left 1 x 20 reps 3: AROM ankle left inversion/eversion1 x 20 reps 4: ankle circles left CW and CCW 1x 20 each 5: ankle alphabet A-Z x 1 . 6: Seated toe curls left 2x30 reps 7: Standing BAPS ball 3 left PWB A/P, lateral and circles cw and ccw 2x20 8: Left long sitting strap assist gastroc stretch 3x30 seconds. 9: L ankle dorsiflexion with orange band resistance 2 x 10 reps 10: L ankle plantarflexion with orange band resistance 2 x 10 reps 11: L ankle inversion with orange band resistance 2 x 10 reps 12: L ankle eversion with orange band resistance 2 x 10 reps Skilled Intervention: Patient was educated in proper exercise technique and purpose for exercises. Skilled judgment was provided in selection of appropriate interventions. Correct performance of therapeutic exercises was facilitated with verbal cuing. Manual Therapy: 1: IASTM with boomerrang and tongue depressor left ankle and gastroc region x 10 minutes with push to patient tolerance. Skilled Intervention: Manual skills to improve joint mobility, ROM, and decrease pain. Utilized anatomy knowledge of the therapist, and assessment of patient's response to intervention. Modalities: Ultrasound See flowsheet for details regarding treatment. Skilled Intervention: Proper administration and selection of modality based on clinical presentation, deficits, and needs. Patient response monitored throughout treatment. Billing: [facility]: Therapeutic Exercise (72082): 1:1 time: 22 minutes (1 unit: 8-22 mins) Manual Therapy (72573): 1:1 time: 10 minutes (1 unit: 8-22 mins) Modalities Ultrasound (30323) 1:1 time: 10 minutes1 unit: 8-22 mins Total time: 42 minutes Michaela Blakely, PT-Yoli Philip PT Previous Version Follow-up and Disposition History Recorded URINALYSIS, ROUTINE Collected: 08/31/2017 Status: F Source: [place] (DIPSTICK) 1:02 PM [facility] REPOSITORY Order Comment: How was Urine Obtained? CLEAN CATCH TYPE CODE TESTS RESULT OUT OF RANGE REFERENCE UNITS LAB L400.3000 Yellow COLOR Normal Straw LAB L400.3050 Clear Normal CLARITY Clear LAB L400.3200 Normal mg/dl Normal GLUCOSE, UR Normal LAB L400.3300 Negative mg/dL Normal BILIRUBIN URINE Negative LAB L400.3400 Negative mg/dl Normal KETONE UR Negative LAB L400.3465 1.002-1.030 Normal SP.GR. DIPSTX 1.010 LAB L400.3550 5.0 - 8.0 pH UR Normal 7.0 LAB L400.3600 Negative mg/dl PROT Normal DIPSTX Negative LAB L400.3700 Normal mg/dl Normal UROBILI Normal LAB L400.3750 Negative Normal NITRITE UR Negative LAB L400.3780 Negative /ul Normal OCCULT BLOOD-UR Negative LAB L400.3800 Negative /ul High LEUK 25 ESTERASE Performed By: #### L400.2010 #### [facility] [place], [address] CBC W/DIFF, AUTOMATED Collected: 08/31/2017 Status: F Source: [place] 1:02 PM [facility] REPOSITORY TYPE CODE TESTS RESULT OUT OF RANGE REFERENCE UNITS LAB L100.1000 4.4-11.0 K/mm3 Normal WBC 8.4 LAB L100.1200 4.2-5.4 M/mm3 Normal RBC 4.78 LAB L100.1300 12.0-15.0 g/dl Normal HGB 14.0 LAB L100.1400 37-47 % Normal HCT 42.5 LAB L100.1500 81-99 fL Normal MCV 88.9 LAB L100.1600 27.0-32.0 pg Normal MCH 29.3 LAB L100.1700 32-36 g/gl Normal MCHC 32.9 LAB L100.1810 11.6-14.6 % Normal RDW CV 13.8 LAB L100.1820 35.1-43.9 fl High RDW SD 45.1 LAB L100.1900 150-450 K/mm3 Normal PLT 219 LAB L100.2000 6.2-12.0 fl Normal MPV 10.7 LAB L100.2100 47-70 % High NEUT% 71.8 LAB L100.2200 19-41 % Low LY% 17.9 LAB L100.2300 0-10 % Normal MONO% 8.4 LAB L100.2400 0-5 % Normal EO% 1.0 LAB L100.2500 0-1 % Normal BASO% 0.5 LAB L100.2550 0.0-0.9 % Normal IM GRAN % 0.400 Result Comment: IG% - Immature Granulocytes (promyelocytes, myelocytes and metamyelocytes) > 1% indicates that a LEFT SHIFT is Present. LAB L100.2620 2.0-7.7 X10 3/uL Normal Absolute Neut 6.0 LAB L100.2720 0.83-4.51 X10 3/ul Normal Absolute Lymph 1.50 Performed By: #### L100.0100 #### [facility] [address] [place], [address] BUN Collected: 08/31/2017 Status: F Source: [place] 1:02 PM [facility] REPOSITORY TYPE CODE TESTS RESULT OUT OF RANGE REFERENCE UNITS LAB L501.1000 7-18 mg/dL Normal BUN 18 Performed By: #### L501.1000, L501.1105, L501.1800, L501.4100 #### [facility] [address] [place], [address] SERUM CREATININE AND Collected: 08/31/2017 Status: F Source: [place] GFR 1:02 PM [facility] REPOSITORY TYPE CODE TESTS RESULT OUT OF RANGE REFERENCE UNITS LAB L501.1100 0.55-1.02 mg/dL High 1.21 CREAT,SERUM Result Comment: The validity of the calculated GFR AND GFRAA in patients over 70 years has not been determined. Clinical correlation is essential. LAB L501.1110 >60 mL/min Low EST GFR 48 Result Comment: Non- GFR Calc LAB L501.1115 >60 mL/min Low EST GFR - AA 58 Result Comment: GFR Calc Performed By: #### L501.1000, L501.1105, L501.1800, L501.4100 #### [facility] [address] [place], [address] ALBUMIN, SERUM Collected: 08/31/2017 Status: F Source: [place] 1:02 PM [facility] REPOSITORY TYPE CODE TESTS RESULT OUT OF RANGE REFERENCE UNITS LAB L501.1800 3.2-5.0 g/dL Normal ALB 3.9 Performed By: #### L501.1000, L501.1105, L501.1800, L501.4100 #### [facility] [address] [place], [address] AST(SGOT) Collected: 08/31/2017 Status: F Source: [place] 1:02 PM [facility] REPOSITORY TYPE CODE TESTS RESULT OUT OF RANGE REFERENCE UNITS LAB L501.4100 15-37 U/L Normal AST 24 Performed By: #### L501.1000, L501.1105, L501.1800, L501.4100 #### [facility] [address] [place], [address] CYCLOSPORINE, BLOOD Collected: 08/31/2017 Status: F Source: [place] 1:02 PM [facility] REPOSITORY TYPE CODE TESTS RESULT OUT OF REFERENCE UNITS RANGE LAB L3400.3100 Cyclosporine Normal Result Comment: None Detected Therapeutic: Renal Transplant 100 - 250 Liver Transplant 100 - 400 Cardiac Transplant 100 - 400 Bone Marrow 200 - 300 Detection Limit = 25 Assay performed by Liquid Chromatography Tandem Mass Spectrometry (LC-MS/MS) If preferred testing methodology for Cyclosporine is Liquid Chromatography Tandem Mass Spectrometry (LC-MS/MS) please use test code [id number]. For testing performed by Immunoassay, please use test code [id number]. Performed at: [facility] [id number] [employer] Director: Mik Alonso MD, Phone: [phone] Performed By: #### L3400.3090 #### [facility] (refer to report for specific site) refer to report for address and phone number PROGRESS Observed: 08/29/2017 Status: COMPLETED Source: [place] 1:58 PM [facility] REPOSITORY HNO ID: [id number] Author: Chavo (Pillo) Chelsi Service: (none) Author Type: Physical Therapist Type: Progress Notes Filed: 08/29/2017 2:14 PM Note Text: Episode Visit Count: 12 Therapist That Will Oversee The Plan Of Care: Taty Philip Start of Care Date: 07/21/17 Onset Date: 07/21/16 (about one year) REHABILITATION AND SPORTS THERAPY PHYSICAL THERAPY TREATMENT NOTE ASSESSMENT: Ralph Joshi demonstrated difficulty with increase swelling with wearing flip flops at a water park for 3 days over the weekend. Pain also increased. Decreased intensity of exercise slightly and performed retrograde massage for edema reduction today. Significant reduction in burning and pain left lateral ankle. The patient will continue to benefit from continued skilled physical therapy for pain control, edema reduction and exercise. PLAN FOR NEXT VISIT: continue with exercise retrograde massage if swelling increased or possibly IASTM. SUBJECTIVE: Patient reports wearing flip flops at a water park yesterday and has increase pain and swelling today. Pain Score: 7/10 Pain Location: Ankle - Left Description: Burning Frequency: Continuous Post Treatment Pain Score: 2/10 Pain Location: Ankle - Left Post Treatment Pain Description: Burning OBJECTIVE MEASURES WITH LEVEL OF FUNCTION: Gait Assessment Gait Observation: Normal gait on level surface. TREATMENT: Therapeutic Exercise: 1: Step One stepper seat 11, resistance 2 x 5 minutes. 2: AROM ankle pumps left 1 x 20 reps 3: AROM ankle left inversion/eversion1 x 20 reps 4: ankle circles left CW and CCW 1x 20 each 5: ankle alphabet A-Z x 1 . 6: Seated toe curls left 2x30 reps 7: Seated BAPS ball 3 with pegs, left PWB A/P, lateral and circles cw and ccw 2x20 8: Left long sitting strap assist gastroc stretch 3x30 seconds. 9: L ankle dorsiflexion with orange band resistance 2 x 10 reps 10: L ankle plantarflexion with orange band resistance 2 x 10 reps 11: L ankle inversion with orange band resistance 2 x 10 reps 12: L ankle eversion with orange band resistance 2 x 10 reps Skilled Intervention: Patient was educated in proper exercise technique and purpose for exercises. Skilled judgment was provided in selection of appropriate interventions. Manual Therapy: 1: Retrograde massage left ankle in elevation wedge bolster while supine lying x 10 minutes. Skilled Intervention: Manual skills to improve joint mobility, ROM, and decrease pain. Utilized anatomy knowledge of the therapist, and assessment of patient's response to intervention. Modalities: Ultrasound See flowsheet for details regarding treatment. Skilled Intervention: Proper administration and selection of modality based on clinical presentation, deficits, and needs. Patient response monitored throughout treatment. Billing: [facility]: Therapeutic Exercise (11113): 1:1 time: 22 minutes (1 unit: 8-22 mins) Manual Therapy (12368): 1:1 time: 10 minutes (1 unit: 8-22 mins) Modalities Ultrasound (36859) 1:1 time: 10 minutes1 unit: 8-22 mins Total time: 42 minutes VIK Glez PT CNTHERAPY Observed: 08/29/2017 Status: COMPLETED Source: [place] 1:15 PM [facility] REPOSITORY OT/PT/Speech Visit (PTWS) RALPH JOSHI ([id number]) 1955 F Date Time Provider Department 08/29/17 1:15 PM MICHAELA BLAKELY ([employer]) PTWS Date Time Provider Department Center 08/29/2017 1:15 PM [id number], NANCY ([employer]) PTWS [facility] Reason for Visit: Physical Therapy [503] Primary Visit Diagnosis:Peroneal tendinitis, left [M76.72] Allergies As of Date: 08/29/2017 Noted Allergy Reaction AVOCADO 09/10/2014 10 - Anaphylaxis BANANA 09/10/2014 10 - Anaphylaxis CARBINOXAMINE 09/17/2012 10 - Anaphylaxis YOSELIN SEED 08/28/2013 10 - Anaphylaxis CIPROFLOXACIN 04/11/2014 10 - Anaphylaxis CODEINE 01/12/2012 10 - Anaphylaxis CONTRAST DYE 05/17/2013 10 - Anaphylaxis Comments: To MRI and CT FISH 09/07/2014 10 - Anaphylaxis HYCODAN (HYDROCODONE-HOMATROPINE) 09/08/2011 10 - Anaphylaxis Comments: Face and throat swelling LATEX 01/21/2014 10 - Anaphylaxis IMTIAZ-SYNEPHRINE (PHENYLEPHRINE HCL)09/04/2014 10 - Anaphylaxis Comments: 10% eye drop NICKEL 01/07/2014 2 - Rash 4 - Hives 10 - Anaphylaxis NSAIDS (NON-STEROIDAL ANTI-INFLAM*08/16/2010 14 - Other: See Comments Comments: Kidney function drops; reversible kidney damage. OXYCODONE 08/28/2013 10 - Anaphylaxis PERIACTIN (CYPROHEPTADINE) 09/17/2012 10 - Anaphylaxis PNEUMOCOCCAL VACCINE 10/31/2014 10 - Anaphylaxis SHELLFISH 09/07/2014 10 - Anaphylaxis ZANTAC (RANITIDINE) 09/17/2012 10 - Anaphylaxis ATIVAN (LORAZEPAM) 08/28/2013 14 - Other: See Comments Comments: hallucination BEEF CONTAINING PRODUCTS 09/10/2014 2 - Rash CORN 05/03/2011 14 - Other: See Comments Comments: Feels like an asthma attack. EGGS (EGG) 03/08/2011 2 - Rash 11 - Vomiting EKG LEADS (ADHESIVE) 10/22/2012 2 - Rash Comments: Localized,only under the leads environmental [Other] 06/26/2007 14 - Other: See Comments Comments: Nasal congestion, brings on an asthma attack. INFLUENZA VIRUS VACCINES 10/22/2012 12 - Shortness of Breath LISINOPRIL 04/20/2004 3 - Cough MILK 03/08/2011 2 - Rash 11 - Vomiting MOMETASONE 04/05/2017 10 - Anaphylaxis Comments: Per Dr. Salas she tolerates formoterol (on Breo at home) but is allergic to mometasone. Okayed by him to update. surgical tape [Other] 11/10/2009 2 - Rash 7 - Swelling Comments: Oral rash, swelling of eyes, asthma attacks; per pateint report. XOLAIR (OMALIZUMAB) 04/19/2012 12 - Shortness of Breath Date Reviewed: 07/27/2017 Reviewed by: Liam Payne Ma - Fully Assessed Prescriptions as of 08/29/2017 Sig: PREGABALIN 150 MG CAPSULE Take 1 capsule by mouth twice* ATORVASTATIN 20 MG TABLET One tab on MWF only SPIRONOLACTONE 50 MG TABLET Take 1 tablet by mouth twice * LANSOPRAZOLE 30 MG CAPSULE,DE* TAKE 1 CAPSULE TWICE A DAY BUMETANIDE 0.5 MG TABLET Take 1 tablet by mouth once d* NITROGLYCERIN 0.4 MG SUBLINGU* DISSOLVE 1 TABLET UNDER THE T* ALBUTEROL SULFATE HFA 90 MCG/* Inhale 2 Puffs as instructed * FLUTICASONE 100 MCG-VILANTERO* Inhale 1 Inhalation as instru* LEVALBUTEROL 1.25 MG/3 ML BRENDA* Use 1 Ampule via nebulizer ev* FLUTICASONE 50 MCG/ACTUATION * 1-2 sprays each side qd BUDESONIDE 0.5 MG/2 ML SUSPEN* Use 1 Ampule via nebulizer tw* AZELASTINE 0.15 % (205.5 MCG)* Use 1 Wilberforce in each nostril t* COMPOUNDED PRESCRIPTION Nocturnal oximetry on room ai* CHOLESTYRAMINE (WITH SUGAR) 4* Take 1 scoop by mouth once da* AMLODIPINE 10 MG TABLET Take 0.5 tablets by mouth onc* CYANOCOBALAMIN (VIT B-12) 1,0* Take 1 tablet by mouth once d* ATENOLOL 25 MG TABLET Take 1 tablet by mouth once d* EPINEPHRINE 0.3 MG/0.3 ML INJ* Inject 0.3 mL intramuscularly* PREDNISONE 10 MG TABLET Take 2.5 tablets by mouth onc* Patient taking differently: Take 25 mg by mouth once mary ellen* ERGOCALCIFEROL (VITAMIN D2) 5* Take 1 capsule by mouth once * Patient taking differently: Take 50,000 Units by mouth on* TURMERIC ROOT EXTRACT ORAL Take 1 tablet by mouth twice * CRISABOROLE 2 % TOPICAL OINTM* Apply to the hands twice daily COMPOUNDED PRESCRIPTION Please provide patient with n* CETIRIZINE 10 MG TABLET Take 10 mg by mouth once mary ellen* PIMECROLIMUS 1 % TOPICAL CREAM Apply twice daily to the hands ONDANSETRON HCL 4 MG TABLET Take 1 tablet by mouth every * BENZONATATE 200 MG CAPSULE Take 200 mg by mouth three ti* LACTOBACILLUS RHAMNOSUS GG 10* Take 1 capsule by mouth twice* FAMOTIDINE 20 MG TABLET Take 1 tablet by mouth twice * Patient taking differently: Take 20 mg by mouth twice liam* DIPHENHYDRAMINE 50 MG CAPSULE Take 1 capsule by mouth every* AMOXICILLIN 250 MG CAPSULE Take 250 mg by mouth once liam* ZAFIRLUKAST 20 MG TABLET Take 1 tablet by mouth twice * DOXAZOSIN 2 MG TABLET Take 2 mg by mouth once daily. CYCLOSPORINE MODIFIED 50 MG C* Take 50 mg by mouth twice liam* ASCORBIC ACID (VITAMIN C) 500* Take 1 tablet by mouth once d* ALBUTEROL SULFATE 2.5 MG/3 ML* Use 3 mL via nebulizer one ti* Progress Notes: Chavo Gagnon, PT 08/29/2017 2:14 PM Signed Episode Visit Count: 12 Therapist That Will Oversee The Plan Of Care: Taty Philip Start of Care Date: 07/21/17 Onset Date: 07/21/16 (about one year) REHABILITATION AND SPORTS THERAPY PHYSICAL THERAPY TREATMENT NOTE ASSESSMENT: Ralph Joshi demonstrated difficulty with increase swelling with wearing flip flops at a water park for 3 days over the weekend. Pain also increased. Decreased intensity of exercise slightly and performed retrograde massage for edema reduction today. Significant reduction in burning and pain left lateral ankle. The patient will continue to benefit from continued skilled physical therapy for pain control, edema reduction and exercise. PLAN FOR NEXT VISIT: continue with exercise retrograde massage if swelling increased or possibly IASTM. SUBJECTIVE: Patient reports wearing flip flops at a water park yesterday and has increase pain and swelling today. Pain Score: 7/10 Pain Location: Ankle - Left Description: Burning Frequency: Continuous Post Treatment Pain Score: 2/10 Pain Location: Ankle - Left Post Treatment Pain Description: Burning OBJECTIVE MEASURES WITH LEVEL OF FUNCTION: Gait Assessment Gait Observation: Normal gait on level surface. TREATMENT: Therapeutic Exercise: 1: Step One stepper seat 11, resistance 2 x 5 minutes. 2: AROM ankle pumps left 1 x 20 reps 3: AROM ankle left inversion/eversion1 x 20 reps 4: ankle circles left CW and CCW 1x 20 each 5: ankle alphabet A-Z x 1 . 6: Seated toe curls left 2x30 reps 7: Seated BAPS ball 3 with pegs, left PWB A/P, lateral and circles cw and ccw 2x20 8: Left long sitting strap assist gastroc stretch 3x30 seconds. 9: L ankle dorsiflexion with orange band resistance 2 x 10 reps 10: L ankle plantarflexion with orange band resistance 2 x 10 reps 11: L ankle inversion with orange band resistance 2 x 10 reps 12: L ankle eversion with orange band resistance 2 x 10 reps Skilled Intervention: Patient was educated in proper exercise technique and purpose for exercises. Skilled judgment was provided in selection of appropriate interventions. Manual Therapy: 1: Retrograde massage left ankle in elevation wedge bolster while supine lying x 10 minutes. Skilled Intervention: Manual skills to improve joint mobility, ROM, and decrease pain. Utilized anatomy knowledge of the therapist, and assessment of patient's response to intervention. Modalities: Ultrasound See flowsheet for details regarding treatment. Skilled Intervention: Proper administration and selection of modality based on clinical presentation, deficits, and needs. Patient response monitored throughout treatment. Billing: [facility]: Therapeutic Exercise (41608): 1:1 time: 22 minutes (1 unit: 8-22 mins) Manual Therapy (21489): 1:1 time: 10 minutes (1 unit: 8-22 mins) Modalities Ultrasound (90213) 1:1 time: 10 minutes1 unit: 8-22 mins Total time: 42 minutes Michaela Blakely, PT-Yoli Gagnon, PT Previous Version Follow-up and Disposition History Recorded CBC W/DIFF, AUTOMATED Collected: 08/25/2017 Status: F Source: [place] 9:03 AM [facility] REPOSITORY TYPE CODE TESTS RESULT OUT OF RANGE REFERENCE UNITS LAB L100.1000 4.4-11.0 K/mm3 Normal WBC 6.4 LAB L100.1200 4.2-5.4 M/mm3 Normal RBC 4.91 LAB L100.1300 12.0-15.0 g/dl Normal HGB 14.7 LAB L100.1400 37-47 % Normal HCT 44.0 LAB L100.1500 81-99 fL Normal MCV 89.6 LAB L100.1600 27.0-32.0 pg Normal MCH 29.9 LAB L100.1700 32-36 g/gl Normal MCHC 33.4 LAB L100.1810 11.6-14.6 % Normal RDW CV 14.1 LAB L100.1820 35.1-43.9 fl High RDW SD 46.1 LAB L100.1900 150-450 K/mm3 Normal PLT 220 LAB L100.2000 6.2-12.0 fl Normal MPV 10.8 LAB L100.2100 47-70 % Normal NEUT% 67.5 LAB L100.2200 19-41 % Low LY% 17.6 LAB L100.2300 0-10 % High MONO% 10.7 LAB L100.2400 0-5 % Normal EO% 2.8 LAB L100.2500 0-1 % High BASO% 1.2 LAB L100.2550 0.0-0.9 % Normal IM GRAN % 0.200 Result Comment: IG% - Immature Granulocytes (promyelocytes, myelocytes and metamyelocytes) > 1% indicates that a LEFT SHIFT is Present. LAB L100.2620 2.0-7.7 X10 3/uL Normal Absolute Neut 4.3 LAB L100.2720 0.83-4.51 X10 3/ul Normal Absolute Lymph 1.13 Performed By: #### L100.0100 #### [facility] [address] [place], [address] BUN Collected: 08/25/2017 Status: F Source: [place] 9:03 AM [facility] REPOSITORY TYPE CODE TESTS RESULT OUT OF RANGE REFERENCE UNITS LAB L501.1000 7-18 mg/dL High BUN 19 Performed By: #### L501.1000, L501.1105, L501.1800, L501.4100 #### [facility] [address] [place], [address] SERUM CREATININE AND Collected: 08/25/2017 Status: F Source: [place] GFR 9:03 AM [facility] REPOSITORY TYPE CODE TESTS RESULT OUT OF RANGE REFERENCE UNITS LAB L501.1100 0.55-1.02 mg/dL High 1.18 CREAT,SERUM Result Comment: The validity of the calculated GFR AND GFRAA in patients over 70 years has not been determined. Clinical correlation is essential. LAB L501.1110 >60 mL/min Low EST GFR 49 Result Comment: Non- GFR Calc LAB L501.1115 >60 mL/min Normal EST GFR - AA 60 Result Comment: GFR Calc Performed By: #### L501.1000, L501.1105, L501.1800, L501.4100 #### [facility] [address] [place], [address] ALBUMIN, SERUM Collected: 08/25/2017 Status: F Source: [place] 9:03 AM [facility] REPOSITORY TYPE CODE TESTS RESULT OUT OF RANGE REFERENCE UNITS LAB L501.1800 3.2-5.0 g/dL Normal ALB 3.9 Performed By: #### L501.1000, L501.1105, L501.1800, L501.4100 #### [facility] [address] [place], [address] AST(SGOT) Collected: 08/25/2017 Status: F Source: [place] 9:03 AM [facility] REPOSITORY TYPE CODE TESTS RESULT OUT OF RANGE REFERENCE UNITS LAB L501.4100 15-37 U/L Normal AST 27 Performed By: #### L501.1000, L501.1105, L501.1800, L501.4100 #### [facility] [address] [place], [address] URINALYSIS, ROUTINE Collected: 08/25/2017 Status: F Source: [place] (DIPSTICK) 9:03 AM [facility] REPOSITORY Order Comment: How was Urine Obtained? CLEAN CATCH TYPE CODE TESTS RESULT OUT OF RANGE REFERENCE UNITS LAB L400.3000 Yellow COLOR Normal Yellow LAB L400.3050 Clear Normal CLARITY Sl. Cloudy LAB L400.3200 Normal mg/dl Normal GLUCOSE, UR Normal LAB L400.3300 Negative mg/dL Normal BILIRUBIN URINE Negative LAB L400.3400 Negative mg/dl Normal KETONE UR Negative LAB L400.3465 1.002-1.030 Normal SP.GR. DIPSTX 1.010 LAB L400.3550 5.0 - 8.0 pH UR Normal 7.0 LAB L400.3600 Negative mg/dl PROT Normal DIPSTX Negative LAB L400.3700 Normal mg/dl Normal UROBILI Normal LAB L400.3750 Negative Normal NITRITE UR Negative LAB L400.3780 Negative /ul Normal OCCULT BLOOD-UR Negative LAB L400.3800 Negative /ul High LEUK ESTERASE 100 Performed By: #### L400.2010 #### [facility] [address] [place], [address] CYCLOSPORINE, BLOOD Collected: 08/25/2017 Status: F Source: [place] 9:03 AM [facility] REPOSITORY TYPE CODE TESTS RESULT OUT OF REFERENCE UNITS RANGE LAB L3400.3100 Cyclosporine Normal Result Comment: None Detected Therapeutic: Renal Transplant 100 - 250 Liver Transplant 100 - 400 Cardiac Transplant 100 - 400 Bone Marrow 200 - 300 Detection Limit = 25 Assay performed by Liquid Chromatography Tandem Mass Spectrometry (LC-MS/MS) If preferred testing methodology for Cyclosporine is Liquid Chromatography Tandem Mass Spectrometry (LC-MS/MS) please use test code [id number]. For testing performed by Immunoassay, please use test code [id number]. Performed at: [address] [id number] [employer] Director: Mik Alonso MD, Phone: [phone] Performed By: #### L3400.3090 #### [facility] (refer to report for specific site) refer to report for address and phone number PROGRESS Observed: 08/23/2017 Status: COMPLETED Source: [place] 8:02 AM [facility] [place] REPOSITORY HNO ID: [id number] Author: Taty Philip (Pt) Service: (none) Author Type: Physical Therapist Type: Progress Notes Filed: 08/23/2017 10:17 AM Note Text: Episode Visit Count: 11 Therapist That Will Oversee The Plan Of Care: Taty Philip Start of Care Date: 07/21/17 Onset Date: 07/21/16 (about one year) Patient Identified by Name and Date of : Yes REHABILITATION AND SPORTS THERAPY PHYSICAL THERAPY TREATMENT NOTE ASSESSMENT: Ralph Joshi demonstrated improvements in L ankle volume measurements and pain level. The patient will continue to benefit from continued skilled physical therapy for ankle AROM, strength, weight bearing function and pain control. PLAN FOR NEXT VISIT: Continue to progress strengthening and AROM as tolerated. Continue with IASTM adn edema reduction techniques as appropriate. SUBJECTIVE: Pt reporting her ankle is less painful and less swollen today. She has only been performing the band resisted exercises once a day (has not done yet this morning). Pain Score: 5/10 Pain Location: Ankle - Left Post Treatment Pain Score: 1/10 Pain Location: Ankle - Left OBJECTIVE MEASURES WITH LEVEL OF FUNCTION: Ankle Observations Comments: 2 above mall 28, B mall 30.5, heel 33.5, midfoot 25, MTP 24 Pt demonstrated difficulty maintaining edge of BAPS board in contact with floor at lateral aspect (arc) of the board when weight plate was on AM and PM pegs. TREATMENT: Therapeutic Exercise: 1: Step One stepper seat 11, resistance 2 x 5 minutes. 2: AROM ankle pumps left 1 x 20 reps 3: AROM ankle left inversion/eversion1 x 20 reps 4: ankle circles left CW and CCW 1x 20 each 5: ankle alphabet A-Z x 1 . 6: Seated toe curls left 2x30 seconds. 7: Seated BAPS ball 3 with pegs, left PWB A/P, lateral and circles cw and ccw 2x20 8: Seated BAPS board with 1.5# plate at each peg x 10 CW and x 10 CCW 9: *L ankle dorsiflexion with orange band resistance 2 x 10 reps 10: *L ankle plantarflexion with orange band resistance 2 x 10 reps 11: *L ankle inversion with orange band resistance 2 x 10 reps 12: *L ankle eversion with orange band resistance 2 x 10 reps Skilled Intervention: Patient was educated in proper exercise technique and purpose for exercises. Reviewed and educated patient on additions/changes for home exercise program and pt to continue with current HEP with band resisted exercises only once per day. Skilled judgment was provided in selection of appropriate interventions. Correct performance of therapeutic exercises was facilitated with verbal and visual cuing. Patient education as noted. Manual Therapy: 1: Initiated IASTM techniques using [employer] boomerang and tongue depressor tools applied to lateral ankle tissues. Intensity to pt comfort. Skilled Intervention: Manual skills to improve joint mobility, ROM, and decrease pain. Utilized anatomy knowledge of the therapist, and assessment of patient's response to intervention. Modalities: Ultrasound See flowsheet for details regarding treatment. Skilled Intervention: Proper administration and selection of modality based on clinical presentation, deficits, and needs. Patient response monitored throughout treatment. Billing: [facility]: Therapeutic Exercise (61859): 1:1 time: 22 minutes (1 unit: 8-22 mins) Manual Therapy (75547): 1:1 time: 11 minutes (1 unit: 8-22 mins) Modalities Ultrasound (96189) 1:1 time: 10 minutes1 unit: 8-22 mins Total time: 43 minutes Taty Philip PT CNTHERAPY Observed: 08/23/2017 Status: COMPLETED Source: [place] 8:00 AM [facility] REPOSITORY OT/PT/Speech Visit (PTWS) RALPH JOSHI ([id number]) 1955 F Date Time Provider Department 08/23/17 8:00 AM TATY PHILIP (PT) PTWS Date Time Provider Department Center 08/23/2017 8:00 AM [id number] PHILIP (PT) PTWS [facility] Reason for Visit: Physical Therapy [503] Primary Visit Diagnosis:Peroneal tendinitis, left [M76.72] Allergies As of Date: 08/23/2017 Noted Allergy Reaction AVOCADO 09/10/2014 10 - Anaphylaxis BANANA 09/10/2014 10 - Anaphylaxis CARBINOXAMINE 09/17/2012 10 - Anaphylaxis YOSELIN SEED 08/28/2013 10 - Anaphylaxis CIPROFLOXACIN 04/11/2014 10 - Anaphylaxis CODEINE 01/12/2012 10 - Anaphylaxis CONTRAST DYE 05/17/2013 10 - Anaphylaxis Comments: To MRI and CT FISH 09/07/2014 10 - Anaphylaxis HYCODAN (HYDROCODONE-HOMATROPINE) 09/08/2011 10 - Anaphylaxis Comments: Face and throat swelling LATEX 01/21/2014 10 - Anaphylaxis IMTIAZ-SYNEPHRINE (PHENYLEPHRINE HCL)09/04/2014 10 - Anaphylaxis Comments: 10% eye drop NICKEL 01/07/2014 2 - Rash 4 - Hives 10 - Anaphylaxis NSAIDS (NON-STEROIDAL ANTI-INFLAM*08/16/2010 14 - Other: See Comments Comments: Kidney function drops; reversible kidney damage. OXYCODONE 08/28/2013 10 - Anaphylaxis PERIACTIN (CYPROHEPTADINE) 09/17/2012 10 - Anaphylaxis PNEUMOCOCCAL VACCINE 10/31/2014 10 - Anaphylaxis SHELLFISH 09/07/2014 10 - Anaphylaxis ZANTAC (RANITIDINE) 09/17/2012 10 - Anaphylaxis ATIVAN (LORAZEPAM) 08/28/2013 14 - Other: See Comments Comments: hallucination BEEF CONTAINING PRODUCTS 09/10/2014 2 - Rash CORN 05/03/2011 14 - Other: See Comments Comments: Feels like an asthma attack. EGGS (EGG) 03/08/2011 2 - Rash 11 - Vomiting EKG LEADS (ADHESIVE) 10/22/2012 2 - Rash Comments: Localized,only under the leads environmental [Other] 06/26/2007 14 - Other: See Comments Comments: Nasal congestion, brings on an asthma attack. INFLUENZA VIRUS VACCINES 10/22/2012 12 - Shortness of Breath LISINOPRIL 04/20/2004 3 - Cough MILK 03/08/2011 2 - Rash 11 - Vomiting MOMETASONE 04/05/2017 10 - Anaphylaxis Comments: Per Dr. Salas she tolerates formoterol (on Breo at home) but is allergic to mometasone. Okayed by him to update. surgical tape [Other] 11/10/2009 2 - Rash 7 - Swelling Comments: Oral rash, swelling of eyes, asthma attacks; per pateint report. XOLAIR (OMALIZUMAB) 04/19/2012 12 - Shortness of Breath Date Reviewed: 07/27/2017 Reviewed by: Liam Payne Ma - Fully Assessed Prescriptions as of 08/23/2017 Sig: PREGABALIN 150 MG CAPSULE Take 1 capsule by mouth twice* ATORVASTATIN 20 MG TABLET One tab on MWF only SPIRONOLACTONE 50 MG TABLET Take 1 tablet by mouth twice * LANSOPRAZOLE 30 MG CAPSULE,DE* TAKE 1 CAPSULE TWICE A DAY BUMETANIDE 0.5 MG TABLET Take 1 tablet by mouth once d* NITROGLYCERIN 0.4 MG SUBLINGU* DISSOLVE 1 TABLET UNDER THE T* ALBUTEROL SULFATE HFA 90 MCG/* Inhale 2 Puffs as instructed * FLUTICASONE 100 MCG-VILANTERO* Inhale 1 Inhalation as instru* LEVALBUTEROL 1.25 MG/3 ML BRENDA* Use 1 Ampule via nebulizer ev* FLUTICASONE 50 MCG/ACTUATION * 1-2 sprays each side qd BUDESONIDE 0.5 MG/2 ML SUSPEN* Use 1 Ampule via nebulizer tw* AZELASTINE 0.15 % (205.5 MCG)* Use 1 Wilberforce in each nostril t* COMPOUNDED PRESCRIPTION Nocturnal oximetry on room ai* CHOLESTYRAMINE (WITH SUGAR) 4* Take 1 scoop by mouth once da* AMLODIPINE 10 MG TABLET Take 0.5 tablets by mouth onc* CYANOCOBALAMIN (VIT B-12) 1,0* Take 1 tablet by mouth once d* ATENOLOL 25 MG TABLET Take 1 tablet by mouth once d* EPINEPHRINE 0.3 MG/0.3 ML INJ* Inject 0.3 mL intramuscularly* PREDNISONE 10 MG TABLET Take 2.5 tablets by mouth onc* Patient taking differently: Take 25 mg by mouth once mary ellen* ERGOCALCIFEROL (VITAMIN D2) 5* Take 1 capsule by mouth once * Patient taking differently: Take 50,000 Units by mouth on* TURMERIC ROOT EXTRACT ORAL Take 1 tablet by mouth twice * CRISABOROLE 2 % TOPICAL OINTM* Apply to the hands twice daily COMPOUNDED PRESCRIPTION Please provide patient with n* CETIRIZINE 10 MG TABLET Take 10 mg by mouth once mary ellen* PIMECROLIMUS 1 % TOPICAL CREAM Apply twice daily to the hands ONDANSETRON HCL 4 MG TABLET Take 1 tablet by mouth every * BENZONATATE 200 MG CAPSULE Take 200 mg by mouth three ti* LACTOBACILLUS RHAMNOSUS GG 10* Take 1 capsule by mouth twice* FAMOTIDINE 20 MG TABLET Take 1 tablet by mouth twice * Patient taking differently: Take 20 mg by mouth twice liam* DIPHENHYDRAMINE 50 MG CAPSULE Take 1 capsule by mouth every* AMOXICILLIN 250 MG CAPSULE Take 250 mg by mouth once liam* ZAFIRLUKAST 20 MG TABLET Take 1 tablet by mouth twice * DOXAZOSIN 2 MG TABLET Take 2 mg by mouth once daily. CYCLOSPORINE MODIFIED 50 MG C* Take 50 mg by mouth twice liam* ASCORBIC ACID (VITAMIN C) 500* Take 1 tablet by mouth once d* ALBUTEROL SULFATE 2.5 MG/3 ML* Use 3 mL via nebulizer one ti* Progress Notes: Taty Philip (Pt) 08/23/2017 10:17 AM Signed Episode Visit Count: 11 Therapist That Will Oversee The Plan Of Care: Taty Philip Start of Care Date: 07/21/17 Onset Date: 07/21/16 (about one year) Patient Identified by Name and Date of : Yes REHABILITATION AND SPORTS THERAPY PHYSICAL THERAPY TREATMENT NOTE ASSESSMENT: Ralph Joshi demonstrated improvements in L ankle volume measurements and pain level. The patient will continue to benefit from continued skilled physical therapy for ankle AROM, strength, weight bearing function and pain control. PLAN FOR NEXT VISIT: Continue to progress strengthening and AROM as tolerated. Continue with IASTM adn edema reduction techniques as appropriate. SUBJECTIVE: Pt reporting her ankle is less painful and less swollen today. She has only been performing the band resisted exercises once a day (has not done yet this morning). Pain Score: 5/10 Pain Location: Ankle - Left Post Treatment Pain Score: 1/10 Pain Location: Ankle - Left OBJECTIVE MEASURES WITH LEVEL OF FUNCTION: Ankle Observations Comments: 2 above mall 28, B mall 30.5, heel 33.5, midfoot 25, MTP 24 Pt demonstrated difficulty maintaining edge of BAPS board in contact with floor at lateral aspect (arc) of the board when weight plate was on AM and PM pegs. TREATMENT: Therapeutic Exercise: 1: Step One stepper seat 11, resistance 2 x 5 minutes. 2: AROM ankle pumps left 1 x 20 reps 3: AROM ankle left inversion/eversion1 x 20 reps 4: ankle circles left CW and CCW 1x 20 each 5: ankle alphabet A-Z x 1 . 6: Seated toe curls left 2x30 seconds. 7: Seated BAPS ball 3 with pegs, left PWB A/P, lateral and circles cw and ccw 2x20 8: Seated BAPS board with 1.5# plate at each peg x 10 CW and x 10 CCW 9: *L ankle dorsiflexion with orange band resistance 2 x 10 reps 10: *L ankle plantarflexion with orange band resistance 2 x 10 reps 11: *L ankle inversion with orange band resistance 2 x 10 reps 12: *L ankle eversion with orange band resistance 2 x 10 reps Skilled Intervention: Patient was educated in proper exercise technique and purpose for exercises. Reviewed and educated patient on additions/changes for home exercise program and pt to continue with current HEP with band resisted exercises only once per day. Skilled judgment was provided in selection of appropriate interventions. Correct performance of therapeutic exercises was facilitated with verbal and visual cuing. Patient education as noted. Manual Therapy: 1: Initiated IASTM techniques using [employer] boomerang and tongue depressor tools applied to lateral ankle tissues. Intensity to pt comfort. Skilled Intervention: Manual skills to improve joint mobility, ROM, and decrease pain. Utilized anatomy knowledge of the therapist, and assessment of patient's response to intervention. Modalities: Ultrasound See flowsheet for details regarding treatment. Skilled Intervention: Proper administration and selection of modality based on clinical presentation, deficits, and needs. Patient response monitored throughout treatment. Billing: [facility]: Therapeutic Exercise ([id number]): 1:1 time: 22 minutes (1 unit: 8-22 mins) Manual Therapy ([id number]): 1:1 time: 11 minutes (1 unit: 8-22 mins) Modalities Ultrasound ([id number]) 1:1 time: 10 minutes1 unit: 8-22 mins Total time: 43 minutes Taty Philip, PT CNCO Observed: 08/22/2017 Status: COMPLETED Source: [place] 4:34 PM [facility] REPOSITORY HNO ID: [id number] Author: Coordinator, Mammography Service: (none) Author Type: Physician Type: Letter Filed: 08/23/2017 11:32 PM Note Text: August 22, 2017 PID: [id number] Ralph Joshi [address] [place], [place] [id number] Dear Ms. Joshi, We are pleased to inform you that the results of your recent breast imaging exam on 08/22/2017 are normal. Your mammogram demonstrates that you have dense breast tissue, which could hide abnormalities. Dense breast tissue, in and of itself, is a relatively common condition. Therefore, this information is not provided to cause undue concern; rather, it is to raise your awareness and promote discussion with your health care provider regarding the presence of dense breast tissue in addition to other risk factors. Early detection of cancer is very important. We also understand recommendations regarding breast cancer screening are controversial. Please discuss with your primary care provider which strategy is best for you and whether a mammogram is right for you. Your imaging studies and report will be kept on file at [facility] as part of your permanent medical record and are available for your continuing care. Thank you for allowing us to help in meeting your health care needs. Sincerely, Dr. Philip Interpreting Radiologist [facility] (Normal over 40) [facility] SCREENING Observed: 08/22/2017 Status: F Source: [place] 7:29 AM [facility] REPOSITORY * * *Final Report* * * DATE OF EXAM: Aug 22 2017 7:29AM [facility] [id number] - [facility] SCREENING / PROCEDURE REASON: Encounter for screening mammogram for malignant neoplasm of breast * * * * Physician Interpretation * * * * RESULT: #[id number] - [facility] SCREENING BILATERAL DIGITAL SCREENING MAMMOGRAM WITH CAD: 08/22/2017 HISTORY: Encounter For Screening Mammogram For Malignant Neoplasm Of Breast /Screening Mammogram - patient reports NO breast symptoms /Priors available for comparison. RESULT: TECHNIQUE: The study was acquired using full field digital technology and interpreted from soft copy. Current study was also evaluated with a Computer Aided Detection (CAD). Comparison is made to exams dated: 08/19/2016 mammogram, 07/27/2015 mammogram, 07/21/2014 mammogram - [facility], 07/06/2010 mammogram, and 01/07/2009 [facility]. The tissue of both breasts is heterogeneously dense. This may lower the sensitivity of mammography. No significant masses, calcifications, or other findings are seen in either breast. There has been no significant interval change. IMPRESSION: NEGATIVE There is no mammographic evidence of malignancy.A 1 year screening mammogram is recommended. Carlos A fortune/lisandro:08/22/2017 16:34:22 Nail Setter: Iza KEITH (R)(Pratibha), [facility] letter sent: Normal over 40 Mammogram BI-RADS: 1 Negative 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: Lisandro Transcribe Date/Time: Aug 22 2017 7:14A Dictated by: CARLOS A PHILIP MD This examination was interpreted and the report reviewed and electronically signed by: CARLOS A PHILIP MD on Aug 22 2017 4:34PM EST [id number] Observed: 08/21/2017 Status: COMPLETED Source: [place] 7:05 PM [facility] [place] REPOSITORY [facility] ID: [id number] Author: Taty Philip (Pt) Service: (none) Author Type: Physical Therapist Type: Progress Notes Filed: 08/21/2017 7:14 PM Note Text: Episode Visit Count: 10 Therapist That Will Oversee The Plan Of Care: Taty Philip Start of Care Date: 07/21/17 Onset Date: 07/21/16 (about one year) Patient Identified by Name and Date of : Yes REHABILITATION AND SPORTS THERAPY PHYSICAL THERAPY TREATMENT NOTE ASSESSMENT: Ralph Joshi demonstrated difficulty with increased ankle pain and swelling since Monday. The patient will continue to benefit from continued skilled physical therapy for strengthening and proprioceptive exercises for ankle AROM and strength and weight bearing function. PLAN FOR NEXT VISIT: Assess symptom repsonse to decreased frequency of home exercise. Continue with strengthening ex, ultrasound and edema reduction techniques. May add IASTM as needed. SUBJECTIVE: Pt reports she started having increased pain and swelling again on Monday. She denies any change in activity other than adding the band-resisted ankle exercises to HEP. (She has performed daily since instruction on Monday.) Pain Score: 7/10 Pain Location: Ankle - Left Frequency: Continuous Post Treatment Pain Score: 5/10 Pain Location: Ankle - Left OBJECTIVE MEASURES WITH LEVEL OF FUNCTION: Ankle Observations Comments: 2 above mall 28, B mall 32.5, heel 34, midfoot 25.5, MTP 24 TREATMENT: Therapeutic Exercise: 1: Step One stepper seat 11, resistance 2 x 5 minutes. Spoke with patient regarding increased symptoms and any change in activity since last visit. 2: AROM ankle pumps left 1 x 20 reps 3: AROM ankle left inversion/eversion1 x 20 reps 4: ankle circles left CW and CCW 1x 20 each 5: ankle alphabet A-Z x 1 . 6: Seated BAPS ball 3 with pegs, left PWB A/P, lateral and circles cw and ccw 2x15. 7: Seated BAPS board with 1.5# plate at each peg x 10 CW and x 10 CCW 8: Seated BAPS board with 1.5# plate at each peg x 10 CW and x 10 CCW Skilled Intervention: Patient was educated in proper exercise technique and purpose for exercises. Reviewed and educated patient on additions/changes for home exercise program and pt is to decrease frequency of resistive band exercises to once a day. Skilled judgment was provided in selection of appropriate interventions. Correct performance of therapeutic exercises was facilitated with verbal and visual cuing. Patient education as noted. Manual Therapy: 1: Retrograde massage left ankle in elevation wedge bolster while supine lying x 10 minutes. Skilled Intervention: Manual skills to improve joint mobility, ROM, and decrease pain. Utilized anatomy knowledge of the therapist, and assessment of patient's response to intervention. Modalities: Ultrasound See flowsheet for details regarding treatment. Skilled Intervention: Proper administration and selection of modality based on clinical presentation, deficits, and needs. Patient response monitored throughout treatment. Billing: [facility]: Therapeutic Exercise ([id number]): 1:1 time: 22 minutes (1 unit: 8-22 mins) Manual Therapy ([id number]): 1:1 time: 10 minutes (1 unit: 8-22 mins) Modalities Ultrasound ([id number]) 1:1 time: 10 minutes1 unit: 8-22 mins Total time: 42 minutes Taty Philip PT CNTHERAPY Observed: 08/21/2017 Status: COMPLETED Source: [place] 4:15 PM [facility] REPOSITORY OT/PT/Speech Visit (PTWS) RALPH JOSHI ([id number]) 1955 F Date Time Provider Department 08/21/17 4:15 PM TATY PHILIP (PT) PTWS Date Time Provider Department Center 08/21/2017 4:15 PM [id number] PHILIP (PT) PTWS [facility] Reason for Visit: Physical Therapy [503] Primary Visit Diagnosis:Peroneal tendinitis, left [M76.72] Allergies As of Date: 08/21/2017 Noted Allergy Reaction AVOCADO 09/10/2014 10 - Anaphylaxis BANANA 09/10/2014 10 - Anaphylaxis CARBINOXAMINE 09/17/2012 10 - Anaphylaxis YOSELIN SEED 08/28/2013 10 - Anaphylaxis CIPROFLOXACIN 04/11/2014 10 - Anaphylaxis CODEINE 01/12/2012 10 - Anaphylaxis CONTRAST DYE 05/17/2013 10 - Anaphylaxis Comments: To MRI and CT FISH 09/07/2014 10 - Anaphylaxis HYCODAN (HYDROCODONE-HOMATROPINE) 09/08/2011 10 - Anaphylaxis Comments: Face and throat swelling LATEX 01/21/2014 10 - Anaphylaxis IMTIAZ-SYNEPHRINE (PHENYLEPHRINE HCL)09/04/2014 10 - Anaphylaxis Comments: 10% eye drop NICKEL 01/07/2014 2 - Rash 4 - Hives 10 - Anaphylaxis NSAIDS (NON-STEROIDAL ANTI-INFLAM*08/16/2010 14 - Other: See Comments Comments: Kidney function drops; reversible kidney damage. OXYCODONE 08/28/2013 10 - Anaphylaxis PERIACTIN (CYPROHEPTADINE) 09/17/2012 10 - Anaphylaxis PNEUMOCOCCAL VACCINE 10/31/2014 10 - Anaphylaxis SHELLFISH 09/07/2014 10 - Anaphylaxis ZANTAC (RANITIDINE) 09/17/2012 10 - Anaphylaxis ATIVAN (LORAZEPAM) 08/28/2013 14 - Other: See Comments Comments: hallucination BEEF CONTAINING PRODUCTS 09/10/2014 2 - Rash CORN 05/03/2011 14 - Other: See Comments Comments: Feels like an asthma attack. EGGS (EGG) 03/08/2011 2 - Rash 11 - Vomiting EKG LEADS (ADHESIVE) 10/22/2012 2 - Rash Comments: Localized,only under the leads environmental [Other] 06/26/2007 14 - Other: See Comments Comments: Nasal congestion, brings on an asthma attack. INFLUENZA VIRUS VACCINES 10/22/2012 12 - Shortness of Breath LISINOPRIL 04/20/2004 3 - Cough MILK 03/08/2011 2 - Rash 11 - Vomiting MOMETASONE 04/05/2017 10 - Anaphylaxis Comments: Per Dr. Salas she tolerates formoterol (on Breo at home) but is allergic to mometasone. Okayed by him to update. surgical tape [Other] 11/10/2009 2 - Rash 7 - Swelling Comments: Oral rash, swelling of eyes, asthma attacks; per pateint report. XOLAIR (OMALIZUMAB) 04/19/2012 12 - Shortness of Breath Date Reviewed: 07/27/2017 Reviewed by: Liam Payne Ma - Fully Assessed Prescriptions as of 08/21/2017 Sig: PREGABALIN 150 MG CAPSULE Take 1 capsule by mouth twice* ATORVASTATIN 20 MG TABLET One tab on MWF only SPIRONOLACTONE 50 MG TABLET Take 1 tablet by mouth twice * LANSOPRAZOLE 30 MG CAPSULE,DE* TAKE 1 CAPSULE TWICE A DAY BUMETANIDE 0.5 MG TABLET Take 1 tablet by mouth once d* NITROGLYCERIN 0.4 MG SUBLINGU* DISSOLVE 1 TABLET UNDER THE T* ALBUTEROL SULFATE HFA 90 MCG/* Inhale 2 Puffs as instructed * FLUTICASONE 100 MCG-VILANTERO* Inhale 1 Inhalation as instru* LEVALBUTEROL 1.25 MG/3 ML BRENDA* Use 1 Ampule via nebulizer ev* FLUTICASONE 50 MCG/ACTUATION * 1-2 sprays each side qd BUDESONIDE 0.5 MG/2 ML SUSPEN* Use 1 Ampule via nebulizer tw* AZELASTINE 0.15 % (205.5 MCG)* Use 1 Wilberforce in each nostril t* COMPOUNDED PRESCRIPTION Nocturnal oximetry on room ai* CHOLESTYRAMINE (WITH SUGAR) 4* Take 1 scoop by mouth once da* AMLODIPINE 10 MG TABLET Take 0.5 tablets by mouth onc* CYANOCOBALAMIN (VIT B-12) 1,0* Take 1 tablet by mouth once d* ATENOLOL 25 MG TABLET Take 1 tablet by mouth once d* EPINEPHRINE 0.3 MG/0.3 ML INJ* Inject 0.3 mL intramuscularly* PREDNISONE 10 MG TABLET Take 2.5 tablets by mouth onc* Patient taking differently: Take 25 mg by mouth once mary ellen* ERGOCALCIFEROL (VITAMIN D2) 5* Take 1 capsule by mouth once * Patient taking differently: Take 50,000 Units by mouth on* TURMERIC ROOT EXTRACT ORAL Take 1 tablet by mouth twice * CRISABOROLE 2 % TOPICAL OINTM* Apply to the hands twice daily COMPOUNDED PRESCRIPTION Please provide patient with n* CETIRIZINE 10 MG TABLET Take 10 mg by mouth once mary ellen* PIMECROLIMUS 1 % TOPICAL CREAM Apply twice daily to the hands ONDANSETRON HCL 4 MG TABLET Take 1 tablet by mouth every * BENZONATATE 200 MG CAPSULE Take 200 mg by mouth three ti* LACTOBACILLUS RHAMNOSUS GG 10* Take 1 capsule by mouth twice* FAMOTIDINE 20 MG TABLET Take 1 tablet by mouth twice * Patient taking differently: Take 20 mg by mouth twice liam* DIPHENHYDRAMINE 50 MG CAPSULE Take 1 capsule by mouth every* AMOXICILLIN 250 MG CAPSULE Take 250 mg by mouth once liam* ZAFIRLUKAST 20 MG TABLET Take 1 tablet by mouth twice * DOXAZOSIN 2 MG TABLET Take 2 mg by mouth once daily. CYCLOSPORINE MODIFIED 50 MG C* Take 50 mg by mouth twice liam* ASCORBIC ACID (VITAMIN C) 500* Take 1 tablet by mouth once d* ALBUTEROL SULFATE 2.5 MG/3 ML* Use 3 mL via nebulizer one ti* Progress Notes: Taty Philip (Pt) 08/21/2017 7:14 PM Signed Episode Visit Count: 10 Therapist That Will Oversee The Plan Of Care: Taty Philip Start of Care Date: 07/21/17 Onset Date: 07/21/16 (about one year) Patient Identified by Name and Date of : Yes REHABILITATION AND SPORTS THERAPY PHYSICAL THERAPY TREATMENT NOTE ASSESSMENT: Ralph Joshi demonstrated difficulty with increased ankle pain and swelling since Monday. The patient will continue to benefit from continued skilled physical therapy for strengthening and proprioceptive exercises for ankle AROM and strength and weight bearing function. PLAN FOR NEXT VISIT: Assess symptom repsonse to decreased frequency of home exercise. Continue with strengthening ex, ultrasound and edema reduction techniques. May add IASTM as needed. SUBJECTIVE: Pt reports she started having increased pain and swelling again on Monday. She denies any change in activity other than adding the band-resisted ankle exercises to HEP. (She has performed daily since instruction on Monday.) Pain Score: 10/24 Pain Location: Ankle - Left Frequency: Continuous Post Treatment Pain Score: 08/24 Pain Location: Ankle - Left OBJECTIVE MEASURES WITH LEVEL OF FUNCTION: Ankle Observations Comments: 2 above mall 28, B mall 32.5, heel 34, midfoot 25.5, MTP 24 TREATMENT: Therapeutic Exercise: 1: Step One stepper seat 11, resistance 2 x 5 minutes. Spoke with patient regarding increased symptoms and any change in activity since last visit. 2: AROM ankle pumps left 1 x 20 reps 3: AROM ankle left inversion/eversion1 x 20 reps 4: ankle circles left CW and CCW 1x 20 each 5: ankle alphabet A-Z x 1 . 6: Seated BAPS ball 3 with pegs, left PWB A/P, lateral and circles cw and ccw 2x15. 7: Seated BAPS board with 1.5# plate at each peg x 10 CW and x 10 CCW 8: Seated BAPS board with 1.5# plate at each peg x 10 CW and x 10 CCW Skilled Intervention: Patient was educated in proper exercise technique and purpose for exercises. Reviewed and educated patient on additions/changes for home exercise program and pt is to decrease frequency of resistive band exercises to once a day. Skilled judgment was provided in selection of appropriate interventions. Correct performance of therapeutic exercises was facilitated with verbal and visual cuing. Patient education as noted. Manual Therapy: 1: Retrograde massage left ankle in elevation wedge bolster while supine lying x 10 minutes. Skilled Intervention: Manual skills to improve joint mobility, ROM, and decrease pain. Utilized anatomy knowledge of the therapist, and assessment of patient's response to intervention. Modalities: Ultrasound See flowsheet for details regarding treatment. Skilled Intervention: Proper administration and selection of modality based on clinical presentation, deficits, and needs. Patient response monitored throughout treatment. Billing: [facility]: Therapeutic Exercise ([id number]): 1:1 time: 22 minutes (1 unit: 8-22 mins) Manual Therapy (79167): 1:1 time: 10 minutes (1 unit: 8-22 mins) Modalities Ultrasound ([id number]) 1:1 time: 10 minutes1 unit: 8-22 mins Total time: 42 minutes Taty Philip PT PROGRESS Observed: 08/16/2017 Status: COMPLETED Source: [place] 8:01 [facility] REPOSITORY HNO ID: [id number] Author: Taty (Pt) C[place]rick Service: (none) Author Type: Physical Therapist Type: Progress Notes Filed: 08/16/2017 12:39 PM Note Text: Episode Visit Count: 9 Therapist That Will Oversee The Plan Of Care: Taty Philip Start of Care Date: 07/21/17 Onset Date: 07/21/16 (about one year) Patient Identified by Name and Date of : Yes REHABILITATION AND SPORTS THERAPY PHYSICAL THERAPY PROGRESS REPORT PLAN OF CARE UPDATE: Assessment: Ralph Joshi exhibits improvements in ankle edema measurements, AROM and strength. Pt also reports functional improvements and decreased pain rating. She continues to be limited with standing and walking in the community. She is progressing as expected towards her therapy goals as demonstrated by: documented subjective information on progress and documented objective information regarding strength, range of motion and patient reported outcome measures. She will benefit from continued skilled therapy requiring strengthening and proprioceptive exercises in order to further improve ankle AROM, strength and weight bearing function to fully achieve goals. Functional gains: Improved ability to climb steps Increased endurance / activity tolerance Increased independence with HEP Increased ROM Increased strength Decreased intensity of pain Decreased frequency of pain Reduce circumferential /volumetric measurement Goals for Episode of Care: created on 07/21/17 through 09/20/17 [place] in home exercise program. Patient will decrease pain rating by 2 points to meet minimal clinical important difference for numeric pain rating scale. Patient will increase active ROM of L ankle to DF 8-10 deg, inv 30-35 deg and ever 15 deg. to allow pt to improved performance of ADLs. Patient will increase strength of L ankle to 4+/5 to allow for return to prior functional status and normalized gait mechanics. Perform daily and community ambulation, prolonged standing and stair negotiation with decreased report of symptoms/pain in 4-8 weeks. Demonstrate improvement on functional score: Patient will increase his/her score on the Lower Extremity Functional Scale by at least 9 points to indicate a Minimal Clinical Important Difference. Planned Interventions, Frequency, and Duration: 2x/week, 4 weeks Total Number of Visits Planned: 8 Patient to be seen for PLAN FOR NEXT VISIT: May progress weight bearing activities for strength and proprioception to symptom tolerance. SUBJECTIVE: Pt states she is able to ambulate community distances in regards to her foot, but this is limited d/t asthma and low back pain. She feels she can stand for a bout 30 minutes and does not have any trouble with negotiating stairs using reciprocal step pattern. Pain Score: 5/10 Pain Location: Ankle - Left Description: Burning Frequency: Continuous Post Treatment Pain Score: 1/10 Pain Location: Ankle - Left OBJECTIVE MEASURES WITH LEVEL OF FUNCTION: Ankle Observations Comments: 2 above mall 27.5, B mall 30, heel 33, midfoot 24.5, MTP 24 LE AROM L Ankle Dorsiflexion: 8 Degrees L Ankle Plantar Flexion: 60 Degrees L Ankle Inversion: 34 (lateral ankle pain) L Ankle Eversion: 20 LE Strength L Ankle Dorsiflexion: 4/5 L Ankle Plantar Flexion: 4/5 L Ankle Inversion: 4-/5 (pain) L Ankle Eversion: 4-/5 TREATMENT: Therapeutic Exercise: 1: Step One stepper seat 11, resistance 2 x 5 minutes. Spoke with patient regarding progression of ex today. 2: AROM ankle pumps left 1 x 20 reps 3: AROM ankle left inversion/eversion1 x 20 reps 4: ankle circles left CW and CCW 1x 20 each 5: ankle alphabet A-Z x 1 . 6: Seated BAPS ball 3 with pegs, left PWB A/P, lateral and circles cw and ccw 2x15. 7: Seated BAPS board with 1.5# plate at each peg x 10 CW and x 10 CCW 8: Seated toe curls left 2x30 seconds. 9: *L ankle dorsiflexion with orange band resistance 2 x 10 reps 10: *L ankle plantarflexion with orange band resistance 2 x 10 reps 11: *L ankle inversion with orange band resistance 2 x 10 reps 12: *L ankle eversion with orange band resistance 2 x 10 reps Skilled Intervention: Patient was educated in proper exercise technique and purpose for exercises. Reviewed and educated patient on additions/changes for home exercise program and pt to add (*) ex as above. Skilled judgment was provided in selection of appropriate interventions. Provided written instruction and orange REP band for home exercise program to facilitate proper performance and compliance. Correct performance of therapeutic exercises was facilitated with verbal and visual cuing. Patient education as noted. Modalities: Ultrasound See flowsheet for details regarding treatment. Skilled Intervention: Proper administration and selection of modality based on clinical presentation, deficits, and needs. Patient response monitored throughout treatment. Billing: [facility]: Therapeutic Exercise ([id number]): 1:1 time: 37 minutes (2 units: 23-37 mins) Modalities Ultrasound ([id number]) 1:1 time: 10 minutes1 unit: 8-22 mins Total time: 37 minutes Taty Philip PT CNTHERAPY Observed: 08/16/2017 Status: COMPLETED Source: [place] 8:00 AM [facility] REPOSITORY OT/PT/Speech Visit (PTWS) RALPH JOSHI ([id number]) 1955 F Date Time Provider Department 08/16/17 8:00 AM TATY PHILIP (PT) PTWS Date Time Provider Department Center 08/16/2017 8:00 AM [id number] PHILIP (PT) PTWS [facility] Reason for Visit: PT Progress Note [5856] Primary Visit Diagnosis:Peroneal tendinitis, left [M76.72] Allergies As of Date: 08/16/2017 Noted Allergy Reaction AVOCADO 09/10/2014 10 - Anaphylaxis BANANA 09/10/2014 10 - Anaphylaxis CARBINOXAMINE 09/17/2012 10 - Anaphylaxis YOSELIN SEED 08/28/2013 10 - Anaphylaxis CIPROFLOXACIN 04/11/2014 10 - Anaphylaxis CODEINE 01/12/2012 10 - Anaphylaxis CONTRAST DYE 05/17/2013 10 - Anaphylaxis Comments: To MRI and CT FISH 09/07/2014 10 - Anaphylaxis HYCODAN (HYDROCODONE-HOMATROPINE) 09/08/2011 10 - Anaphylaxis Comments: Face and throat swelling LATEX 01/21/2014 10 - Anaphylaxis IMTIAZ-SYNEPHRINE (PHENYLEPHRINE HCL)09/04/2014 10 - Anaphylaxis Comments: 10% eye drop NICKEL 01/07/2014 2 - Rash 4 - Hives 10 - Anaphylaxis NSAIDS (NON-STEROIDAL ANTI-INFLAM*08/16/2010 14 - Other: See Comments Comments: Kidney function drops; reversible kidney damage. OXYCODONE 08/28/2013 10 - Anaphylaxis PERIACTIN (CYPROHEPTADINE) 09/17/2012 10 - Anaphylaxis PNEUMOCOCCAL VACCINE 10/31/2014 10 - Anaphylaxis SHELLFISH 09/07/2014 10 - Anaphylaxis ZANTAC (RANITIDINE) 09/17/2012 10 - Anaphylaxis ATIVAN (LORAZEPAM) 08/28/2013 14 - Other: See Comments Comments: hallucination BEEF CONTAINING PRODUCTS 09/10/2014 2 - Rash CORN 05/03/2011 14 - Other: See Comments Comments: Feels like an asthma attack. EGGS (EGG) 03/08/2011 2 - Rash 11 - Vomiting EKG LEADS (ADHESIVE) 10/22/2012 2 - Rash Comments: Localized,only under the leads environmental [Other] 06/26/2007 14 - Other: See Comments Comments: Nasal congestion, brings on an asthma attack. INFLUENZA VIRUS VACCINES 10/22/2012 12 - Shortness of Breath LISINOPRIL 04/20/2004 3 - Cough MILK 03/08/2011 2 - Rash 11 - Vomiting MOMETASONE 04/05/2017 10 - Anaphylaxis Comments: Per Dr. Salas she tolerates formoterol (on Breo at home) but is allergic to mometasone. Okayed by him to update. surgical tape [Other] 11/10/2009 2 - Rash 7 - Swelling Comments: Oral rash, swelling of eyes, asthma attacks; per pateint report. XOLAIR (OMALIZUMAB) 04/19/2012 12 - Shortness of Breath Date Reviewed: 07/27/2017 Reviewed by: Liam Payne Ma - Fully Assessed Prescriptions as of 08/16/2017 Sig: ATORVASTATIN 20 MG TABLET One tab on MWF only SPIRONOLACTONE 50 MG TABLET Take 1 tablet by mouth twice * PREGABALIN 150 MG CAPSULE Take 1 capsule by mouth twice* LANSOPRAZOLE 30 MG CAPSULE,DE* TAKE 1 CAPSULE TWICE A DAY BUMETANIDE 0.5 MG TABLET Take 1 tablet by mouth once d* NITROGLYCERIN 0.4 MG SUBLINGU* DISSOLVE 1 TABLET UNDER THE T* ALBUTEROL SULFATE HFA 90 MCG/* Inhale 2 Puffs as instructed * FLUTICASONE 100 MCG-VILANTERO* Inhale 1 Inhalation as instru* LEVALBUTEROL 1.25 MG/3 ML BRENDA* Use 1 Ampule via nebulizer ev* FLUTICASONE 50 MCG/ACTUATION * 1-2 sprays each side qd BUDESONIDE 0.5 MG/2 ML SUSPEN* Use 1 Ampule via nebulizer tw* AZELASTINE 0.15 % (205.5 MCG)* Use 1 Wilberforce in each nostril t* COMPOUNDED PRESCRIPTION Nocturnal oximetry on room ai* CHOLESTYRAMINE (WITH SUGAR) 4* Take 1 scoop by mouth once da* AMLODIPINE 10 MG TABLET Take 0.5 tablets by mouth onc* CYANOCOBALAMIN (VIT B-12) 1,0* Take 1 tablet by mouth once d* ATENOLOL 25 MG TABLET Take 1 tablet by mouth once d* EPINEPHRINE 0.3 MG/0.3 ML INJ* Inject 0.3 mL intramuscularly* PREDNISONE 10 MG TABLET Take 2.5 tablets by mouth onc* Patient taking differently: Take 25 mg by mouth once mary ellen* ERGOCALCIFEROL (VITAMIN D2) 5* Take 1 capsule by mouth once * Patient taking differently: Take 50,000 Units by mouth on* TURMERIC ROOT EXTRACT ORAL Take 1 tablet by mouth twice * CRISABOROLE 2 % TOPICAL OINTM* Apply to the hands twice daily COMPOUNDED PRESCRIPTION Please provide patient with n* CETIRIZINE 10 MG TABLET Take 10 mg by mouth once mary ellen* PIMECROLIMUS 1 % TOPICAL CREAM Apply twice daily to the hands ONDANSETRON HCL 4 MG TABLET Take 1 tablet by mouth every * BENZONATATE 200 MG CAPSULE Take 200 mg by mouth three ti* LACTOBACILLUS RHAMNOSUS GG 10* Take 1 capsule by mouth twice* FAMOTIDINE 20 MG TABLET Take 1 tablet by mouth twice * Patient taking differently: Take 20 mg by mouth twice liam* DIPHENHYDRAMINE 50 MG CAPSULE Take 1 capsule by mouth every* AMOXICILLIN 250 MG CAPSULE Take 250 mg by mouth once liam* ZAFIRLUKAST 20 MG TABLET Take 1 tablet by mouth twice * DOXAZOSIN 2 MG TABLET Take 2 mg by mouth once daily. CYCLOSPORINE MODIFIED 50 MG C* Take 50 mg by mouth twice liam* ASCORBIC ACID (VITAMIN C) 500* Take 1 tablet by mouth once d* ALBUTEROL SULFATE 2.5 MG/3 ML* Use 3 mL via nebulizer one ti* Progress Notes: Taty Philip, PT 08/16/2017 12:39 PM Signed Episode Visit Count: 9 Therapist That Will Oversee The Plan Of Care: Taty Philip Start of Care Date: 07/21/17 Onset Date: 07/21/16 (about one year) Patient Identified by Name and Date of : Yes REHABILITATION AND SPORTS THERAPY PHYSICAL THERAPY PROGRESS REPORT PLAN OF CARE UPDATE: Assessment: Ralph Joshi exhibits improvements in ankle edema measurements, AROM and strength. Pt also reports functional improvements and decreased pain rating. She continues to be limited with standing and walking in the community. She is progressing as expected towards her therapy goals as demonstrated by: documented subjective information on progress and documented objective information regarding strength, range of motion and patient reported outcome measures. She will benefit from continued skilled therapy requiring strengthening and proprioceptive exercises in order to further improve ankle AROM, strength and weight bearing function to fully achieve goals. Functional gains: Improved ability to climb steps Increased endurance / activity tolerance Increased independence with HEP Increased ROM Increased strength Decreased intensity of pain Decreased frequency of pain Reduce circumferential /volumetric measurement Goals for Episode of Care: created on 07/21/17 through 09/20/17 [place] in home exercise program. Patient will decrease pain rating by 2 points to meet minimal clinical important difference for numeric pain rating scale. Patient will increase active ROM of L ankle to DF 8-10 deg, inv 30-35 deg and ever 15 deg. to allow pt to improved performance of ADLs. Patient will increase strength of L ankle to 4+/5 to allow for return to prior functional status and normalized gait mechanics. Perform daily and community ambulation, prolonged standing and stair negotiation with decreased report of symptoms/pain in 4-8 weeks. Demonstrate improvement on functional score: Patient will increase his/her score on the Lower Extremity Functional Scale by at least 9 points to indicate a Minimal Clinical Important Difference. Planned Interventions, Frequency, and Duration: 2x/week, 4 weeks Total Number of Visits Planned: 8 Patient to be seen for PLAN FOR NEXT VISIT: May progress weight bearing activities for strength and proprioception to symptom tolerance. SUBJECTIVE: Pt states she is able to ambulate community distances in regards to her foot, but this is limited d/t asthma and low back pain. She feels she can stand for a bout 30 minutes and does not have any trouble with negotiating stairs using reciprocal step pattern. Pain Score: 5/10 Pain Location: Ankle - Left Description: Burning Frequency: Continuous Post Treatment Pain Score: 04/26 Pain Location: Ankle - Left OBJECTIVE MEASURES WITH LEVEL OF FUNCTION: Ankle Observations Comments: 2 above mall 27.5, B mall 30, heel 33, midfoot 24.5, MTP 24 LE AROM L Ankle Dorsiflexion: 8 Degrees L Ankle Plantar Flexion: 60 Degrees L Ankle Inversion: 34 (lateral ankle pain) L Ankle Eversion: 20 LE Strength L Ankle Dorsiflexion: 4/5 L Ankle Plantar Flexion: 4/5 L Ankle Inversion: 4-/5 (pain) L Ankle Eversion: 4-/5 TREATMENT: Therapeutic Exercise: 1: Step One stepper seat 11, resistance 2 x 5 minutes. Spoke with patient regarding progression of ex today. 2: AROM ankle pumps left 1 x 20 reps 3: AROM ankle left inversion/eversion1 x 20 reps 4: ankle circles left CW and CCW 1x 20 each 5: ankle alphabet A-Z x 1 . 6: Seated BAPS ball 3 with pegs, left PWB A/P, lateral and circles cw and ccw 2x15. 7: Seated BAPS board with 1.5# plate at each peg x 10 CW and x 10 CCW 8: Seated toe curls left 2x30 seconds. 9: *L ankle dorsiflexion with orange band resistance 2 x 10 reps 10: *L ankle plantarflexion with orange band resistance 2 x 10 reps 11: *L ankle inversion with orange band resistance 2 x 10 reps 12: *L ankle eversion with orange band resistance 2 x 10 reps Skilled Intervention: Patient was educated in proper exercise technique and purpose for exercises. Reviewed and educated patient on additions/changes for home exercise program and pt to add (*) ex as above. Skilled judgment was provided in selection of appropriate interventions. Provided written instruction and orange REP band for home exercise program to facilitate proper performance and compliance. Correct performance of therapeutic exercises was facilitated with verbal and visual cuing. Patient education as noted. Modalities: Ultrasound See flowsheet for details regarding treatment. Skilled Intervention: Proper administration and selection of modality based on clinical presentation, deficits, and needs. Patient response monitored throughout treatment. Billing: [facility]: Therapeutic Exercise ([id number]): 1:1 time: 37 minutes (2 units: 23-37 mins) Modalities Ultrasound ([id number]) 1:1 time: 10 minutes1 unit: 8-22 mins Total time: 37 minutes Taty Philip, PT CBC AND DIFFERENTIAL Collected: 08/14/2017 Status: F Source: [place] 9:00 AM CLINIC REFERENCE REPOSITORY TYPE CODE TESTS RESULT OUT OF REFERENCE UNITS RANGE LAB WBC(LOINC) 3.70-11.00 k/uL WBC 7.79 LAB RBC(LOINC) 3.90-5.20 m/uL RBC 5.09 LAB HGB(LOINC) 11.5-15.5 g/dL Hemoglobin 15.2 LAB HCT(LOINC) 36.0-46.0 % High Hematocrit 47.7 LAB MCV(LOINC) 80.0-100.0 fL MCV 93.7 LAB MCH(LOINC) 26.0-34.0 pG MCH 29.9 LAB MCHC(LOINC 30.5-36.0 g/dL ) MCHC 31.9 LAB RDWCV(LOIN 11.5-15.0 % C) RDW-CV 14.0 LAB PLTCT(LOIN 150-400 k/uL C) Platelet Count 245 LAB MPV(LOINC) 9.0-12.7 fL MPV 11.3 LAB ANEUT(LOIN % C) Neut% 74.3 LAB AANEUT(ROBIN 1.45-7.50 k/uL NC) Abs Neut 5.79 LAB ALYMP(LOIN % C) Lymph% 14.1 LAB AALYMP(ROBIN 1.00-4.00 k/uL NC) Abs Lymph 1.10 LAB AMONO(LOIN % C) Potter% 8.2 LAB AAMONO(ROBIN <0.87 k/uL NC) Abs Potter 0.64 LAB AEOS(LOINC % ) Eosin% 2.2 LAB AAEOS(LOIN <0.46 k/uL C) Abs Eosin 0.17 LAB ABASO(LOIN % C) Baso% 1.2 LAB AABASO(ROBIN <0.11 k/uL NC) Abs Baso 0.09 LAB AUNRBC(ROBIN 0 /100 WBC NC) NRBCs 0.0 LAB ABNRBC(ROBIN <0.01 k/uL NC) Absolute nRBC <0.01 LAB DTYP(LOINC ) DTYPE ADIFF Performed By: #### BUN, UA, AST, CRET1, ALT, CBCDIF #### [facility] Routine Lab [address] [place] [address] #### CYCLO #### [facility] Immunology [address] [place] [address] URINALYSIS Collected: 08/14/2017 Status: F Source: [place] 9:00 AM CLINIC REFERENCE REPOSITORY TYPE CODE TESTS RESULT OUT OF RANGE REFERENCE UNITS LAB UCOL(LOINC Yellow ) Color YEL LAB [facility](LOINC Clear ) Clarity Abnormal CLDY LAB UGLUC(LOIN Negative mg/dL C) Glucose, Urine NEGAT LAB UBIL(LOINC Negative ) Bilirubin, Urine NEGAT LAB UKET(LOINC Negative ) Ketones, Urine NEGAT LAB USPG(LOINC 1.005-1.030 ) Specific [place], Ur 1.013 LAB UHGB(LOINC Negative ) Hemoglobin/Blood, NEGAT Ur LAB UPH(LOINC) 4.5-8.0 pH 6.0 LAB UPROT(LOIN Negative mg/dL C) Protein, Urine NEGAT LAB UUROB(LOIN Normal C) Urobilinogen NL LAB UNITR(LOIN Negative C) Nitrites NEGAT LAB ULKEST(ROBIN Negative NC) Leukest Abnormal TR LAB UCOM(LOINC ) Comments MICDUN LAB UWBC(LOINC 0-5 /HPF ) WBC Abnormal R610 LAB URBC(LOINC 0-3 /HPF ) RBC R03 LAB UEPI(LOINC ) Epithelial Cells Result Comment: Few Squamous Epithelial Cells LAB UMCOM(LOINC) Urine Compa Comment NAPP Performed By: #### BUN, UA, AST, CRET1, ALT, CBCDIF #### [facility] Routine Lab [address] [place] [phone] #### CYCLO #### [facility] Immunology [address] [place] [phone] ALT Collected: 08/14/2017 Status: F Source: [place] 9:00 AM CLINIC REFERENCE REPOSITORY TYPE CODE TESTS RESULT OUT OF RANGE REFERENCE UNITS LAB ALT(LOINC) 7-38 U/L ALT 35 Performed By: #### BUN, UA, AST, CRET1, ALT, CBCDIF #### [facility] Routine Lab [address] [place] [phone] #### CYCLO #### [facility] Immunology [address] [place] [phone] AST Collected: 08/14/2017 Status: F Source: [place] 9:00 AM CLINIC REFERENCE REPOSITORY TYPE CODE TESTS RESULT OUT OF RANGE REFERENCE UNITS LAB AST(LOINC) 13-35 U/L AST 21 Performed By: #### BUN, UA, AST, CRET1, ALT, CBCDIF #### [facility] Routine Lab [address] [place] [phone] #### CYCLO #### [facility] Immunology [address] [place] [phone] BUN Collected: 08/14/2017 Status: F Source: [place] 9:00 AM CLINIC REFERENCE REPOSITORY TYPE CODE TESTS RESULT OUT OF RANGE REFERENCE UNITS LAB BUN(LOINC) 7-21 mg/dL BUN 21 Performed By: #### BUN, UA, AST, CRET1, ALT, CBCDIF #### [facility] Routine Lab [address] [place] [address] #### CYCLO #### [facility] Immunology [address] [place] [phone] CREATININE Collected: 08/14/2017 Status: F Source: [place] 9:00 AM [facility] REFERENCE REPOSITORY TYPE CODE TESTS RESULT OUT OF REFERENCE UNITS RANGE LAB CRET(LOINC 0.58-0.96 mg/dL ) High Creatinine 1.23 LAB GFRAA(LOIN C) eGFR- 54 Amer. LAB GFRNAA(ROBIN . NC) eGFR-All Other Races 44 Performed By: #### BUN, UA, AST, CRET1, ALT, CBCDIF #### [facility] Routine Lab [address] [place] [phone] #### CYCLO #### [facility] Immunology [address] [place] [phone] CYCLOSPORINE Collected: 08/14/2017 Status: F Source: [place] 9:00 [facility] REFERENCE REPOSITORY TYPE CODE TESTS RESULT OUT OF REFERENCE UNITS RANGE LAB CYCLO(LOIN 50-500 ng/mL C) Low Cyclosporine <30 Performed By: #### BUN, UA, AST, CRET1, ALT, CBCDIF #### [facility] Routine Lab [address] [place] [phone] #### CYCLO #### [facility] Immunology [address] [place] [phone] ALT Collected: 08/14/2017 Status: F Source: [place] 9:00 [facility] REPOSITORY TYPE CODE TESTS RESULT OUT OF RANGE REFERENCE UNITS LAB ALT 7-38 U/L ALT 35 Performed By: #### ALT, LIPB #### [place] [address] LIPID PANEL, BASIC Collected: 08/14/2017 Status: F Source: [place] 9:00 AM [facility] [place] REPOSITORY TYPE CODE TESTS RESULT OUT OF REFERENCE UNITS RANGE LAB CHOL <200 mg/dL Cholesterol 117 Result Comment: <200 mg/dL, Desirable 200-239 mg/dL, Borderline high >239 mg/dL, High LAB TRIGLY <150 mg/dL Triglyceride 126 Result Comment: <150 mg/dL, Normal 150-199 mg/dL, Borderline high 200-499 mg/dL, High >499 mg/dL, Very high LAB HDL >39 mg/dL HDL-Cholesterol 47 Result Comment: 40-59 mg/dL, Acceptable >59 mg/dL, High: Negative risk factor for coronary heart disease <40 mg/dL, Low: Positive risk factor for coronary heart disease LAB LDL <100 mg/dL LDL-Cholesterol 45 Result Comment: <100 mg/dL, Optimal 100-129 mg/dL, Near optimal/above optimal 130-159 mg/dL, Borderline high 160-189 mg/dL, High >189 mg/dL, Very high Secondary prevention optimal LDL Cholesterol levels are recommended to be < 70 mg/dL LAB NONHDL <130 mg/dL Non HDL Cholesterol 70 Result Comment: <130 mg/dL, Optimal 130-159 mg/dL, Near optimal/above optimal 160-189 mg/dL, Borderline high 190-219 mg/dL, High >219 mg/dL, Very high Secondary prevention optimal non HDL Cholesterol levels are recommended to be < 100 mg/dL LAB FT hrs Fasting Time 12 LAB VLDL <30 mg/dL VLDL Cholesterol 25 LAB TCHDL <5.10 TC:HDL Ratio 2.49 LAB LDLHDL <2.54 LDL:HDL Ratio 0.96 Result Comment: Reference: 1. National Cholesterol Education Program ATP III Guideline At-A-Glance Quick Desk Reference: National Heart, Lung, and Blood [place]. National Institutes of Health. 2001: NIH Publication No. 01-3305. 2. An International Atherosclerosis Society position paper: global recommendations for the management of dyslipidemia: executive summary, Atherosclerosis. 2014: 232(2):410-413. Performed By: #### ALT, LIPB #### [facility] [address] [place] [address] PROGRESS Observed: 08/14/2017 Status: COMPLETED Source: [place] 8:42 AM [facility] REPOSITORY HNO ID: [id number] Author: Taty (Pt) Cedrick Service: (none) Author Type: Physical Therapist Type: Progress Notes Filed: 08/14/2017 12:15 PM Note Text: Episode Visit Count: 8 Therapist That Will Oversee The Plan Of Care: Taty Philip Start of Care Date: 07/21/17 Onset Date: 07/21/16 (about one year) REHABILITATION AND SPORTS THERAPY PHYSICAL THERAPY TREATMENT NOTE ASSESSMENT: Ralph Joshi demonstrated improvements in gait and foot with less pain. She still has burning left lateral leg to mid calf. Patient with decrease edema left ankle today. The patient will continue to benefit from continued skilled physical therapy for strengthening, edema control and US. PLAN FOR NEXT VISIT: Continue with strengthening, manual therap to assist with edema reduction and US. SUBJECTIVE: Patient reports the left foot is better. She reports still having burning left lateral leg from foot to mid calf. She reports decrease intensity of burning with US treatment in therapy.. She reports burning increases as she is on her feet more. Pain Score: 5/10 Pain Location: Ankle - Left Description: Burning Frequency: Continuous Post Treatment Pain Score: 1/10 Pain Location: Ankle - Left Post Treatment Pain Description: Burning (decreased) OBJECTIVE MEASURES WITH LEVEL OF FUNCTION: Decrease visible edema left ankle today. TREATMENT: Therapeutic Exercise: 1: Step One stepper seat 11, resistance 2 x 5 minutes. Spoke with patient regarding progression of ex today. 2: AROM ankle pumps left 1 x 20 reps 3: AROM ankle left inversion/eversion1 x 20 reps 4: ankle circles left CW and CCW 1x 20 each 5: ankle alphabet A-Z x 1 . 6: Seated BAPS ball 3 with pegs, left PWB A/P, lateral and circles cw and ccw 2x15. 7: seated strap assist left calf stretch x 30 sec holds, 3 reps 8: Seated toe curls left 2x30 seconds. Skilled Intervention: Patient was educated in proper exercise technique and purpose for exercises. Reviewed and educated patient on additions/changes for home exercise program and patient to continue with the same exercise. Skilled judgment was provided in selection of appropriate interventions. Correct performance of therapeutic exercises was facilitated with verbal cuing. Manual Therapy: 1: Retrograde massage left ankle in elevation wedge bolster while supine lying x 13 minutes. Skilled Intervention: Manual skills to improve joint mobility, ROM, and decrease pain. Utilized anatomy knowledge of the therapist, and assessment of patient's response to intervention. Modalities: Ultrasound See flowsheet for details regarding treatment. Skilled Intervention: Proper administration and selection of modality based on clinical presentation, deficits, and needs. Patient response monitored throughout treatment. Billing: [facility]: Therapeutic Exercise ([id number]): 1:1 time: 20 minutes (1 unit: 8-22 mins) Manual Therapy ([id number]): 1:1 time: 13 minutes (1 unit: 8-22 mins) Modalities Ultrasound ([id number]) 1:1 time: 10 minutes1 unit: 8-22 mins Total time: 43 minutes Michaela Blakely PT-Yoli Philip PT CNTHERAPY Observed: 08/14/2017 Status: COMPLETED Source: [place] 7:45 AM [facility] REPOSITORY OT/PT/Speech Visit (PTWS) RALPH JOSHI ([id number]) 1955 F Date Time Provider Department 08/14/17 7:45 AM MICHAELA BLAKELY ([employer]) PTWS Date Time Provider Department Center 08/14/2017 7:45 AM [id number], NANCY ([employer]) PTWS [facility] Reason for Visit: Physical Therapy [503] Primary Visit Diagnosis:Peroneal tendinitis, left [M76.72] Allergies As of Date: 08/14/2017 Noted Allergy Reaction AVOCADO 09/10/2014 10 - Anaphylaxis BANANA 09/10/2014 10 - Anaphylaxis CARBINOXAMINE 09/17/2012 10 - Anaphylaxis YOSELIN SEED 08/28/2013 10 - Anaphylaxis CIPROFLOXACIN 04/11/2014 10 - Anaphylaxis CODEINE 01/12/2012 10 - Anaphylaxis CONTRAST DYE 05/17/2013 10 - Anaphylaxis Comments: To MRI and CT FISH 09/07/2014 10 - Anaphylaxis HYCODAN (HYDROCODONE-HOMATROPINE) 09/08/2011 10 - Anaphylaxis Comments: Face and throat swelling LATEX 01/21/2014 10 - Anaphylaxis IMTIAZ-SYNEPHRINE (PHENYLEPHRINE HCL)09/04/2014 10 - Anaphylaxis Comments: 10% eye drop NICKEL 01/07/2014 2 - Rash 4 - Hives 10 - Anaphylaxis NSAIDS (NON-STEROIDAL ANTI-INFLAM*08/16/2010 14 - Other: See Comments Comments: Kidney function drops; reversible kidney damage. OXYCODONE 08/28/2013 10 - Anaphylaxis PERIACTIN (CYPROHEPTADINE) 09/17/2012 10 - Anaphylaxis PNEUMOCOCCAL VACCINE 10/31/2014 10 - Anaphylaxis SHELLFISH 09/07/2014 10 - Anaphylaxis ZANTAC (RANITIDINE) 09/17/2012 10 - Anaphylaxis ATIVAN (LORAZEPAM) 08/28/2013 14 - Other: See Comments Comments: hallucination BEEF CONTAINING PRODUCTS 09/10/2014 2 - Rash CORN 05/03/2011 14 - Other: See Comments Comments: Feels like an asthma attack. EGGS (EGG) 03/08/2011 2 - Rash 11 - Vomiting EKG LEADS (ADHESIVE) 10/22/2012 2 - Rash Comments: Localized,only under the leads environmental [Other] 06/26/2007 14 - Other: See Comments Comments: Nasal congestion, brings on an asthma attack. INFLUENZA VIRUS VACCINES 10/22/2012 12 - Shortness of Breath LISINOPRIL 04/20/2004 3 - Cough MILK 03/08/2011 2 - Rash 11 - Vomiting MOMETASONE 04/05/2017 10 - Anaphylaxis Comments: Per Dr. Salas she tolerates formoterol (on Breo at home) but is allergic to mometasone. Okayed by him to update. surgical tape [Other] 11/10/2009 2 - Rash 7 - Swelling Comments: Oral rash, swelling of eyes, asthma attacks; per pateint report. XOLAIR (OMALIZUMAB) 04/19/2012 12 - Shortness of Breath Date Reviewed: 07/27/2017 Reviewed by: Liam Payne Ma - Fully Assessed Prescriptions as of 08/14/2017 Sig: SPIRONOLACTONE 50 MG TABLET Take 1 tablet by mouth twice * PREGABALIN 150 MG CAPSULE Take 1 capsule by mouth twice* ATORVASTATIN 20 MG TABLET Take 1 tablet by mouth once d* LANSOPRAZOLE 30 MG CAPSULE,DE* TAKE 1 CAPSULE TWICE A DAY BUMETANIDE 0.5 MG TABLET Take 1 tablet by mouth once d* NITROGLYCERIN 0.4 MG SUBLINGU* DISSOLVE 1 TABLET UNDER THE T* ALBUTEROL SULFATE HFA 90 MCG/* Inhale 2 Puffs as instructed * FLUTICASONE 100 MCG-VILANTERO* Inhale 1 Inhalation as instru* LEVALBUTEROL 1.25 MG/3 ML BRENDA* Use 1 Ampule via nebulizer ev* FLUTICASONE 50 MCG/ACTUATION * 1-2 sprays each side qd BUDESONIDE 0.5 MG/2 ML SUSPEN* Use 1 Ampule via nebulizer tw* AZELASTINE 0.15 % (205.5 MCG)* Use 1 [place] in each nostril t* COMPOUNDED PRESCRIPTION Nocturnal oximetry on room ai* CHOLESTYRAMINE (WITH SUGAR) 4* Take 1 scoop by mouth once da* AMLODIPINE 10 MG TABLET Take 0.5 tablets by mouth onc* CYANOCOBALAMIN (VIT B-12) 1,0* Take 1 tablet by mouth once d* ATENOLOL 25 MG TABLET Take 1 tablet by mouth once d* EPINEPHRINE 0.3 MG/0.3 ML INJ* Inject 0.3 mL intramuscularly* PREDNISONE 10 MG TABLET Take 2.5 tablets by mouth onc* Patient taking differently: Take 25 mg by mouth once mary ellen* ERGOCALCIFEROL (VITAMIN D2) 5* Take 1 capsule by mouth once * Patient taking differently: Take 50,000 Units by mouth on* TURMERIC ROOT EXTRACT ORAL Take 1 tablet by mouth twice * CRISABOROLE 2 % TOPICAL OINTM* Apply to the hands twice daily COMPOUNDED PRESCRIPTION Please provide patient with n* CETIRIZINE 10 MG TABLET Take 10 mg by mouth once mary ellen* PIMECROLIMUS 1 % TOPICAL CREAM Apply twice daily to the hands ONDANSETRON HCL 4 MG TABLET Take 1 tablet by mouth every * BENZONATATE 200 MG CAPSULE Take 200 mg by mouth three ti* LACTOBACILLUS RHAMNOSUS GG 10* Take 1 capsule by mouth twice* FAMOTIDINE 20 MG TABLET Take 1 tablet by mouth twice * Patient taking differently: Take 20 mg by mouth twice liam* DIPHENHYDRAMINE 50 MG CAPSULE Take 1 capsule by mouth every* AMOXICILLIN 250 MG CAPSULE Take 250 mg by mouth once liam* ZAFIRLUKAST 20 MG TABLET Take 1 tablet by mouth twice * DOXAZOSIN 2 MG TABLET Take 2 mg by mouth once daily. CYCLOSPORINE MODIFIED 50 MG C* Take 50 mg by mouth twice liam* ASCORBIC ACID (VITAMIN C) 500* Take 1 tablet by mouth once d* ALBUTEROL SULFATE 2.5 MG/3 ML* Use 3 mL via nebulizer one ti* Progress Notes: Taty Philip, PT 08/14/2017 12:15 PM Signed Episode Visit Count: 8 Therapist That Will Oversee The Plan Of Care: Taty Philip Start of Care Date: 07/21/17 Onset Date: 07/21/16 (about one year) REHABILITATION AND SPORTS THERAPY PHYSICAL THERAPY TREATMENT NOTE ASSESSMENT: Ralph Joshi demonstrated improvements in gait and foot with less pain. She still has burning left lateral leg to mid calf. Patient with decrease edema left ankle today. The patient will continue to benefit from continued skilled physical therapy for strengthening, edema control and US. PLAN FOR NEXT VISIT: Continue with strengthening, manual therap to assist with edema reduction and US. SUBJECTIVE: Patient reports the left foot is better. She reports still having burning left lateral leg from foot to mid calf. She reports decrease intensity of burning with US treatment in therapy.. She reports burning increases as she is on her feet more. Pain Score: 5/10 Pain Location: Ankle - Left Description: Burning Frequency: Continuous Post Treatment Pain Score: 1/10 Pain Location: Ankle - Left Post Treatment Pain Description: Burning (decreased) OBJECTIVE MEASURES WITH LEVEL OF FUNCTION: Decrease visible edema left ankle today. TREATMENT: Therapeutic Exercise: 1: Step One stepper seat 11, resistance 2 x 5 minutes. Spoke with patient regarding progression of ex today. 2: AROM ankle pumps left 1 x 20 reps 3: AROM ankle left inversion/eversion1 x 20 reps 4: ankle circles left CW and CCW 1x 20 each 5: ankle alphabet A-Z x 1 . 6: Seated BAPS ball 3 with pegs, left PWB A/P, lateral and circles cw and ccw 2x15. 7: seated strap assist left calf stretch x 30 sec holds, 3 reps 8: Seated toe curls left 2x30 seconds. Skilled Intervention: Patient was educated in proper exercise technique and purpose for exercises. Reviewed and educated patient on additions/changes for home exercise program and patient to continue with the same exercise. Skilled judgment was provided in selection of appropriate interventions. Correct performance of therapeutic exercises was facilitated with verbal cuing. Manual Therapy: 1: Retrograde massage left ankle in elevation wedge bolster while supine lying x 13 minutes. Skilled Intervention: Manual skills to improve joint mobility, ROM, and decrease pain. Utilized anatomy knowledge of the therapist, and assessment of patient's response to intervention. Modalities: Ultrasound See flowsheet for details regarding treatment. Skilled Intervention: Proper administration and selection of modality based on clinical presentation, deficits, and needs. Patient response monitored throughout treatment. Billing: [facility]: Therapeutic Exercise ([id number]): 1:1 time: 20 minutes (1 unit: 8-22 mins) Manual Therapy ([id number]): 1:1 time: 13 minutes (1 unit: 8-22 mins) Modalities Ultrasound ([id number]) 1:1 time: 10 minutes1 unit: 8-22 mins Total time: 43 minutes Michaela Blakely, PT-Yoli Philip PT Previous Version Follow-up and Disposition History Recorded CNTHERAPY Observed: 08/09/2017 Status: COMPLETED Source: [place] 8:00 AM [facility] REPOSITORY OT/PT/Speech Visit (PTWS) RALPH JOSHI ([id number]) 1955 F Date Time Provider Department 08/09/17 8:00 AM TATY PHILIP (PT) PTWS Date Time Provider Department Center 08/09/2017 8:00 AM [id number] PHILIP (PT) PTWS [facility] Reason for Visit: Physical Therapy [503] Primary Visit Diagnosis:Peroneal tendinitis, left [M76.72] Allergies As of Date: 08/09/2017 Noted Allergy Reaction AVOCADO 09/10/2014 10 - Anaphylaxis BANANA 09/10/2014 10 - Anaphylaxis CARBINOXAMINE 09/17/2012 10 - Anaphylaxis YOSELIN SEED 08/28/2013 10 - Anaphylaxis CIPROFLOXACIN 04/11/2014 10 - Anaphylaxis CODEINE 01/12/2012 10 - Anaphylaxis CONTRAST DYE 05/17/2013 10 - Anaphylaxis Comments: To MRI and CT FISH 09/07/2014 10 - Anaphylaxis HYCODAN (HYDROCODONE-HOMATROPINE) 09/08/2011 10 - Anaphylaxis Comments: Face and throat swelling LATEX 01/21/2014 10 - Anaphylaxis IMTIAZ-SYNEPHRINE (PHENYLEPHRINE HCL)09/04/2014 10 - Anaphylaxis Comments: 10% eye drop NICKEL 01/07/2014 2 - Rash 4 - Hives 10 - Anaphylaxis NSAIDS (NON-STEROIDAL ANTI-INFLAM*08/16/2010 14 - Other: See Comments Comments: Kidney function drops; reversible kidney damage. OXYCODONE 08/28/2013 10 - Anaphylaxis PERIACTIN (CYPROHEPTADINE) 09/17/2012 10 - Anaphylaxis PNEUMOCOCCAL VACCINE 10/31/2014 10 - Anaphylaxis SHELLFISH 09/07/2014 10 - Anaphylaxis ZANTAC (RANITIDINE) 09/17/2012 10 - Anaphylaxis ATIVAN (LORAZEPAM) 08/28/2013 14 - Other: See Comments Comments: hallucination BEEF CONTAINING PRODUCTS 09/10/2014 2 - Rash CORN 05/03/2011 14 - Other: See Comments Comments: Feels like an asthma attack. EGGS (EGG) 03/08/2011 2 - Rash 11 - Vomiting EKG LEADS (ADHESIVE) 10/22/2012 2 - Rash Comments: Localized,only under the leads INFLUENZA VIRUS VACCINES 10/22/2012 12 - Shortness of Breath LISINOPRIL 04/20/2004 3 - Cough MILK 03/08/2011 2 - Rash 11 - Vomiting MOMETASONE 04/05/2017 10 - Anaphylaxis Comments: Per Dr. Salas she tolerates formoterol (on Breo at home) but is allergic to mometasone. Okayed by him to update. XOLAIR (OMALIZUMAB) 04/19/2012 12 - Shortness of Breath environmental [Other] 06/26/2007 14 - Other: See Comments Comments: Nasal congestion, brings on an asthma attack. surgical tape [Other] 11/10/2009 2 - Rash 7 - Swelling Comments: Oral rash, swelling of eyes, asthma attacks; per pateint report. Date Reviewed: 07/27/2017 Reviewed by: Liam P Oleksak Ma - Fully Assessed Prescriptions as of 08/09/2017 Sig: PREGABALIN 150 MG CAPSULE Take 1 capsule by mouth twice* ATORVASTATIN 20 MG TABLET Take 1 tablet by mouth once d* LANSOPRAZOLE 30 MG CAPSULE,DE* TAKE 1 CAPSULE TWICE A DAY BUMETANIDE 0.5 MG TABLET Take 1 tablet by mouth once d* NITROGLYCERIN 0.4 MG SUBLINGU* DISSOLVE 1 TABLET UNDER THE T* ALBUTEROL SULFATE HFA 90 MCG/* Inhale 2 Puffs as instructed * FLUTICASONE 100 MCG-VILANTERO* Inhale 1 Inhalation as instru* LEVALBUTEROL 1.25 MG/3 ML BRENDA* Use 1 Ampule via nebulizer ev* FLUTICASONE 50 MCG/ACTUATION * 1-2 sprays each side qd BUDESONIDE 0.5 MG/2 ML SUSPEN* Use 1 Ampule via nebulizer tw* AZELASTINE 0.15 % (205.5 MCG)* Use 1 Wilberforce in each nostril t* COMPOUNDED PRESCRIPTION Nocturnal oximetry on room ai* CHOLESTYRAMINE (WITH SUGAR) 4* Take 1 scoop by mouth once da* AMLODIPINE 10 MG TABLET Take 0.5 tablets by mouth onc* CYANOCOBALAMIN (VIT B-12) 1,0* Take 1 tablet by mouth once d* ATENOLOL 25 MG TABLET Take 1 tablet by mouth once d* EPINEPHRINE 0.3 MG/0.3 ML INJ* Inject 0.3 mL intramuscularly* PREDNISONE 10 MG TABLET Take 2.5 tablets by mouth onc* Patient taking differently: Take 25 mg by mouth once mary ellen* ERGOCALCIFEROL (VITAMIN D2) 5* Take 1 capsule by mouth once * Patient taking differently: Take 50,000 Units by mouth on* TURMERIC ROOT EXTRACT ORAL Take 1 tablet by mouth twice * CRISABOROLE 2 % TOPICAL OINTM* Apply to the hands twice daily COMPOUNDED PRESCRIPTION Please provide patient with n* CETIRIZINE 10 MG TABLET Take 10 mg by mouth once mary ellen* PIMECROLIMUS 1 % TOPICAL CREAM Apply twice daily to the hands SPIRONOLACTONE 50 MG TABLET Take 1 tablet by mouth twice * ONDANSETRON HCL 4 MG TABLET Take 1 tablet by mouth every * BENZONATATE 200 MG CAPSULE Take 200 mg by mouth three ti* LACTOBACILLUS RHAMNOSUS GG 10* Take 1 capsule by mouth twice* FAMOTIDINE 20 MG TABLET Take 1 tablet by mouth twice * Patient taking differently: Take 20 mg by mouth twice liam* DIPHENHYDRAMINE 50 MG CAPSULE Take 1 capsule by mouth every* AMOXICILLIN 250 MG CAPSULE Take 250 mg by mouth once liam* ZAFIRLUKAST 20 MG TABLET Take 1 tablet by mouth twice * DOXAZOSIN 2 MG TABLET Take 2 mg by mouth once daily. CYCLOSPORINE MODIFIED 50 MG C* Take 50 mg by mouth twice liam* ASCORBIC ACID (VITAMIN C) 500* Take 1 tablet by mouth once d* ALBUTEROL SULFATE 2.5 MG/3 ML* Use 3 mL via nebulizer one ti* Progress Notes: Taty Philip, PT 08/09/2017 1:15 PM Signed Episode Visit Count: 7 Therapist That Will Oversee The Plan Of Care: Taty Philip Start of Care Date: 07/21/17 Onset Date: 07/21/16 (about one year) Patient Identified by Name and Date of : Yes REHABILITATION AND SPORTS THERAPY PHYSICAL THERAPY TREATMENT NOTE ASSESSMENT: Ralph Joshi demonstrated improvements in L ankle edema reduction and decreased pain intensity from start to end of treatment. The patient will continue to benefit from continued skilled physical therapy for pain and edema reduction, strengthening and ROM. PLAN FOR NEXT VISIT: May progress strengthening to symptom tolerance. Continue with manual techniques for edema control and modalities to manage pain and inflammation. SUBJECTIVE: Pt reports pain is increased this morning with no explanation of cause. Denies any change in activity yesterday or this morning. Pt notes typically pain is better in morning and worsens as the day progresses. Pt denies any increase in pain d/t increased walking over the weekend. She states it varied in intensity, but not related to activity. Pain Score: 7/10 Pain Location: Ankle - Left Description: Burning Frequency: Continuous Post Treatment Pain Score: 5/10 Pain Location: Ankle - Left Post Treatment Pain Description: Burning OBJECTIVE MEASURES WITH LEVEL OF FUNCTION: Ankle Observations L Ankle Presents with: Swelling Comments: 2above mall 27, B mall 30, heel 32.5, midfoot 24.5, MTP 23 TREATMENT: Therapeutic Exercise: 1: Step One stepper seat 11, resistance 2 x 5 minutes. Spoke with patient regarding progression of ex today. 2: AROM ankle pumps left 1 x 20 reps 3: AROM ankle left inversion/eversion1 x 20 reps 4: ankle circles left CW and CCW 1x 20 each 5: ankle alphabet A-Z x 1 . 6: Seated BAPS ball 3 with pegs, left PWB A/P, lateral and circles cw and ccw 2x15. 7: seated strap assist left calf stretch x 30 sec holds, 3 reps 8: Seated toe curls left 2x30 seconds. Skilled Intervention: Patient was educated in proper exercise technique and purpose for exercises. Reviewed and educated patient on additions/changes for home exercise program Skilled judgment was provided in selection of appropriate interventions. Correct performance of therapeutic exercises was facilitated with verbal and visual cuing. Patient education as noted. Manual Therapy: 1: Retrograde massage left ankle in elevation wedge bolster while supine lying x 13 minutes. Skilled Intervention: Manual skills to improve joint mobility, ROM, and decrease pain. Utilized anatomy knowledge of the therapist, and assessment of patient's response to intervention. Modalities: Ultrasound See flowsheet for details regarding treatment. Skilled Intervention: Proper administration and selection of modality based on clinical presentation, deficits, and needs. Patient response monitored throughout treatment. Billing: [facility]: Therapeutic Exercise ([id number]): 1:1 time: 22 minutes (1 unit: 8-22 mins) Manual Therapy ([id number]): 1:1 time: 12 minutes (1 unit: 8-22 mins) Modalities Ultrasound ([id number]) 1:1 time: 10 minutes1 unit: 8-22 mins Total time: 44 minutes Taty Philip PT PROGRESS Observed: 08/09/2017 Status: COMPLETED Source: [place] 7:59 AM [facility] REPOSITORY HNO ID: [id number] Author: Taty (Pt) Cedrick Service: (none) Author Type: Physical Therapist Type: Progress Notes Filed: 08/09/2017 1:15 PM Note Text: Episode Visit Count: 7 Therapist That Will Oversee The Plan Of Care: Taty Philip Start of Care Date: 07/21/17 Onset Date: 07/21/16 (about one year) Patient Identified by Name and Date of : Yes REHABILITATION AND SPORTS THERAPY PHYSICAL THERAPY TREATMENT NOTE ASSESSMENT: Ralph Joshi demonstrated improvements in L ankle edema reduction and decreased pain intensity from start to end of treatment. The patient will continue to benefit from continued skilled physical therapy for pain and edema reduction, strengthening and ROM. PLAN FOR NEXT VISIT: May progress strengthening to symptom tolerance. Continue with manual techniques for edema control and modalities to manage pain and inflammation. SUBJECTIVE: Pt reports pain is increased this morning with no explanation of cause. Denies any change in activity yesterday or this morning. Pt notes typically pain is better in morning and worsens as the day progresses. Pt denies any increase in pain d/t increased walking over the weekend. She states it varied in intensity, but not related to activity. Pain Score: 7/10 Pain Location: Ankle - Left Description: Burning Frequency: Continuous Post Treatment Pain Score: 5/10 Pain Location: Ankle - Left Post Treatment Pain Description: Burning OBJECTIVE MEASURES WITH LEVEL OF FUNCTION: Ankle Observations L Ankle Presents with: Swelling Comments: 2above mall 27, B mall 30, heel 32.5, midfoot 24.5, MTP 23 TREATMENT: Therapeutic Exercise: 1: Step One stepper seat 11, resistance 2 x 5 minutes. Spoke with patient regarding progression of ex today. 2: AROM ankle pumps left 1 x 20 reps 3: AROM ankle left inversion/eversion1 x 20 reps 4: ankle circles left CW and CCW 1x 20 each 5: ankle alphabet A-Z x 1 . 6: Seated BAPS ball 3 with pegs, left PWB A/P, lateral and circles cw and ccw 2x15. 7: seated strap assist left calf stretch x 30 sec holds, 3 reps 8: Seated toe curls left 2x30 seconds. Skilled Intervention: Patient was educated in proper exercise technique and purpose for exercises. Reviewed and educated patient on additions/changes for home exercise program Skilled judgment was provided in selection of appropriate interventions. Correct performance of therapeutic exercises was facilitated with verbal and visual cuing. Patient education as noted. Manual Therapy: 1: Retrograde massage left ankle in elevation wedge bolster while supine lying x 13 minutes. Skilled Intervention: Manual skills to improve joint mobility, ROM, and decrease pain. Utilized anatomy knowledge of the therapist, and assessment of patient's response to intervention. Modalities: Ultrasound See flowsheet for details regarding treatment. Skilled Intervention: Proper administration and selection of modality based on clinical presentation, deficits, and needs. Patient response monitored throughout treatment. Billing: [facility]: Therapeutic Exercise ([id number]): 1:1 time: 22 minutes (1 unit: 8-22 mins) Manual Therapy (56272): 1:1 time: 12 minutes (1 unit: 8-22 mins) Modalities Ultrasound (07123) 1:1 time: 10 minutes1 unit: 8-22 mins Total time: 44 minutes Taty Philip, PT CBC W/DIFF, AUTOMATED Collected: 08/08/2017 Status: F Source: [place] 2:10 PM [facility] REPOSITORY TYPE CODE TESTS RESULT OUT OF RANGE REFERENCE UNITS LAB L100.1000 4.4-11.0 K/mm3 Normal WBC 7.3 LAB L100.1200 4.2-5.4 M/mm3 Normal RBC 4.86 LAB L100.1300 12.0-15.0 g/dl Normal HGB 14.6 LAB L100.1400 37-47 % Normal HCT 43.2 LAB L100.1500 81-99 fL Normal MCV 88.9 LAB L100.1600 27.0-32.0 pg Normal MCH 30.0 LAB L100.1700 32-36 g/gl Normal MCHC 33.8 LAB L100.1810 11.6-14.6 % Normal RDW CV 14.1 LAB L100.1820 35.1-43.9 fl High RDW SD 45.3 LAB L100.1900 150-450 K/mm3 Normal PLT 233 LAB L100.2000 6.2-12.0 fl Normal MPV 11.1 LAB L100.2100 47-70 % Normal NEUT% 67.8 LAB L100.2200 19-41 % Low LY% 18.3 LAB L100.2300 0-10 % High MONO% 10.2 LAB L100.2400 0-5 % Normal EO% 2.3 LAB L100.2500 0-1 % Normal BASO% 1.0 LAB L100.2550 0.0-0.9 % Normal IM GRAN % 0.400 Result Comment: IG% - Immature Granulocytes (promyelocytes, myelocytes and metamyelocytes) > 1% indicates that a LEFT SHIFT is Present. LAB L100.2620 2.0-7.7 X10 3/uL Normal Absolute Neut 4.9 LAB L100.2720 0.83-4.51 X10 3/ul Normal Absolute Lymph 1.33 Performed By: #### L100.0100 #### [facility] [address] [place], [address] BUN Collected: 08/08/2017 Status: F Source: [place] 2:10 PM [facility] REPOSITORY TYPE CODE TESTS RESULT OUT OF RANGE REFERENCE UNITS LAB L501.1000 7-18 mg/dL Normal BUN 18 Performed By: #### L501.1000, L501.1105, L501.1800, L501.4100, L501.4405 #### [facility] [address] [place], [address] SERUM CREATININE AND Collected: 08/08/2017 Status: F Source: [place] GFR 2:10 PM [facility] REPOSITORY TYPE CODE TESTS RESULT OUT OF RANGE REFERENCE UNITS LAB L501.1100 0.55-1.02 mg/dL High 1.06 CREAT,SERUM Result Comment: The validity of the calculated GFR AND GFRAA in patients over 70 years has not been determined. Clinical correlation is essential. LAB L501.1110 >60 mL/min Low EST GFR 56 Result Comment: Non- GFR Calc LAB L501.1115 >60 mL/min Normal EST GFR - AA 68 Result Comment: GFR Calc Performed By: #### L501.1000, L501.1105, L501.1800, L501.4100, L501.4405 #### [facility] [address] [place], [address] ALBUMIN, SERUM Collected: 08/08/2017 Status: F Source: [place] 2:10 PM [facility] REPOSITORY TYPE CODE TESTS RESULT OUT OF RANGE REFERENCE UNITS LAB L501.1800 3.2-5.0 g/dL Normal ALB 4.0 Performed By: #### L501.1000, L501.1105, L501.1800, L501.4100, L501.4405 #### [facility] [address] [place], [address] AST(SGOT) Collected: 08/08/2017 Status: F Source: [place] 2:10 PM [facility] REPOSITORY TYPE CODE TESTS RESULT OUT OF RANGE REFERENCE UNITS LAB L501.4100 15-37 U/L Normal AST 24 Performed By: #### L501.1000, L501.1105, L501.1800, L501.4100, L501.4405 #### [facility] [address] [place], [address] ALANINE AMINOTRANSFERAS Collected: 08/08/2017 Status: F Source: [place] (SGPT) 2:10 PM [facility] REPOSITORY TYPE CODE TESTS RESULT OUT OF RANGE REFERENCE UNITS LAB L501.4405 13-56 U/L Normal ALT 45 Performed By: #### L501.1000, L501.1105, L501.1800, L501.4100, L501.4405 #### [facility] [address] [place], [place], [id number] URINALYSIS, ROUTINE Collected: 08/08/2017 Status: F Source: [place] (DIPSTICK) 2:10 PM [facility] REPOSITORY Order Comment: How was Urine Obtained? CLEAN CATCH TYPE CODE TESTS RESULT OUT OF RANGE REFERENCE UNITS LAB L400.3000 Yellow COLOR Normal Yellow LAB L400.3050 Clear Normal CLARITY Sl. Cloudy LAB L400.3200 Normal mg/dl Normal GLUCOSE, UR Normal LAB L400.3300 Negative mg/dL Normal BILIRUBIN URINE Negative LAB L400.3400 Negative mg/dl Normal KETONE UR Negative LAB L400.3465 1.002-1.030 Normal SP.GR. DIPSTX 1.005 LAB L400.3550 5.0 - 8.0 pH UR Normal 7.0 LAB L400.3600 Negative mg/dl PROT Normal DIPSTX Negative LAB L400.3700 Normal mg/dl Normal UROBILI Normal LAB L400.3750 Negative Normal NITRITE UR Negative LAB L400.3780 Negative /ul Normal OCCULT BLOOD-UR Negative LAB L400.3800 Negative /ul LEUK Normal ESTERASE Negative Performed By: #### L400.2010 #### [facility] [address] [place], [address] CYCLOSPORINE, BLOOD Collected: 08/08/2017 Status: F Source: [place] 2:10 PM [facility] REPOSITORY TYPE CODE TESTS RESULT OUT OF REFERENCE UNITS RANGE LAB L3400.3100 Cyclosporine Normal Result Comment: None Detected Therapeutic: Renal Transplant 100 - 250 Liver Transplant 100 - 400 Cardiac Transplant 100 - 400 Bone Marrow 200 - 300 Detection Limit = 25 Assay performed by Liquid Chromatography Tandem Mass Spectrometry (LC-MS/MS) If preferred testing methodology for Cyclosporine is Liquid Chromatography Tandem Mass Spectrometry (LC-MS/MS) please use test code [id number]. For testing performed by Immunoassay, please use test code [id number]. Performed at: - [facility] [id number] [employer] Director: Mik Alonso MD, Phone: [phone] Performed By: #### L3400.3090 #### [facility] (refer to report for specific site) refer to report for address and phone number PROGRESS Observed: 08/07/2017 Status: COMPLETED Source: [place] 12:35 PM [facility] REPOSIT[facility] HNO ID: [id number] Author: Saige (Pt) Sumeet Service: (none) Author Type: Physical Therapist Type: Progress Notes Filed: 08/07/2017 1:14 PM Note Text: Episode Visit Count: 6 Therapist That Will Oversee The Plan Of Care: Taty Philip Start of Care Date: 07/21/17 Onset Date: 07/21/16 (about one year) REHABILITATION AND SPORTS THERAPY PHYSICAL THERAPY TREATMENT NOTE ASSESSMENT: Ralph Joshi demonstrated difficulty with continuation of burning left ankle. She has improvements with movement in left ankle. Patient with a reduction in pain and burning following treatment today. The patient will continue to benefit from continued skilled physical therapy for pain reduction in left ankle, decrease edema and exercise. PLAN FOR NEXT VISIT: continue with ex, manual retrograde massage and US. SUBJECTIVE: Patient reports the ankle is moving better. She reports still having the burning and swelling. She reports the swelling has been going on for years and the burning and increase pain have been more recent. She reports temporary reduction in pain with US and than pain returns. Pain Score: 5/10 Pain Location: Ankle - Left Description: Burning Frequency: Continuous Post Treatment Pain Score: 2/10 Pain Location: Ankle - Left Post Treatment Pain Description: Burning (mild burning) OBJECTIVE MEASURES WITH LEVEL OF FUNCTION: Decrease edema left posterior lateral malleoli. TREATMENT: Therapeutic Exercise: 1: Step One stepper seat 11, resistance 2 x 5 minutes. Spoke with patient regarding progression of ex today. 2: AROM ankle pumps left 1 x 20 reps 3: AROM ankle left inversion/eversion1 x 20 reps 4: ankle circles left CW and CCW 1x 20 each 5: ankle alphabet A-Z x 1 . 6: Seated BAPS ball 3 with pegs, left PWB A/P, lateral and circles cw and ccw 2x15. 7: seated strap assist left calf stretch x 30 sec holds, 3 reps 8: Seated toe curls left 2x30 seconds. Skilled Intervention: Patient was educated in proper exercise technique and purpose for exercises. Skilled judgment was provided in selection of appropriate interventions. Correct performance of therapeutic exercises was facilitated with verbal cuing. Manual Therapy: 1: Retrograde massage left ankle in elevation wedge bolster while supine lying x 13 minutes. Skilled Intervention: Manual skills to improve joint mobility, ROM, and decrease pain. Utilized anatomy knowledge of the therapist, and assessment of patient's response to intervention. Modalities: Ultrasound See flowsheet for details regarding treatment. Skilled Intervention: Proper administration and selection of modality based on clinical presentation, deficits, and needs. Patient response monitored throughout treatment. Billing: [facility]: Therapeutic Exercise ([id number]): 1:1 time: 18 minutes (1 unit: 8-22 mins) Manual Therapy (05750): 1:1 time: 13 minutes (1 unit: 8-22 mins) Modalities Ultrasound (59333) 1:1 time: 10 minutes1 unit: 8-22 mins Total time: 41 minutes VIK Glez/Saige Fay PT CNTHERAPY Observed: 08/07/2017 Status: COMPLETED Source: [place] 7:45 AM [facility] REPOSITORY OT/PT/Speech Visit (PTWS) RALPH JOSHI ([id number]) 1955 F Date Time Provider Department 4/23/18 7:45 AM MICHAELA BLAKELY ([employer]ER) PTWS Date Time Provider Department Center 08/07/2017 7:45 AM [id number], NANCY ([employer]) PTWS [facility] Reason for Visit: Physical Therapy [503] Primary Visit Diagnosis:Peroneal tendinitis, left [M76.72] Allergies As of Date: 08/07/2017 Noted Allergy Reaction AVOCADO 09/10/2014 10 - Anaphylaxis BANANA 09/10/2014 10 - Anaphylaxis CARBINOXAMINE 09/17/2012 10 - Anaphylaxis YOSELIN SEED 08/28/2013 10 - Anaphylaxis CIPROFLOXACIN 04/11/2014 10 - Anaphylaxis CODEINE 01/12/2012 10 - Anaphylaxis CONTRAST DYE 05/17/2013 10 - Anaphylaxis Comments: To MRI and CT FISH 09/07/2014 10 - Anaphylaxis HYCODAN (HYDROCODONE-HOMATROPINE) 09/08/2011 10 - Anaphylaxis Comments: Face and throat swelling LATEX 01/21/2014 10 - Anaphylaxis IMTIAZ-SYNEPHRINE (PHENYLEPHRINE HCL)09/04/2014 10 - Anaphylaxis Comments: 10% eye drop NICKEL 01/07/2014 2 - Rash 4 - Hives 10 - Anaphylaxis NSAIDS (NON-STEROIDAL ANTI-INFLAM*08/16/2010 14 - Other: See Comments Comments: Kidney function drops; reversible kidney damage. OXYCODONE 08/28/2013 10 - Anaphylaxis PERIACTIN (CYPROHEPTADINE) 09/17/2012 10 - Anaphylaxis PNEUMOCOCCAL VACCINE 10/31/2014 10 - Anaphylaxis SHELLFISH 09/07/2014 10 - Anaphylaxis ZANTAC (RANITIDINE) 09/17/2012 10 - Anaphylaxis ATIVAN (LORAZEPAM) 08/28/2013 14 - Other: See Comments Comments: hallucination BEEF CONTAINING PRODUCTS 09/10/2014 2 - Rash CORN 05/03/2011 14 - Other: See Comments Comments: Feels like an asthma attack. EGGS (EGG) 03/08/2011 2 - Rash 11 - Vomiting EKG LEADS (ADHESIVE) 10/22/2012 2 - Rash Comments: Localized,only under the leads INFLUENZA VIRUS VACCINES 10/22/2012 12 - Shortness of Breath LISINOPRIL 04/20/2004 3 - Cough MILK 03/08/2011 2 - Rash 11 - Vomiting MOMETASONE 04/05/2017 10 - Anaphylaxis Comments: Per Dr. Kieran she tolerates formoterol (on Breo at home) but is allergic to mometasone. Okayed by him to update. XOLAIR (OMALIZUMAB) 04/19/2012 12 - Shortness of Breath environmental [Other] 06/26/2007 14 - Other: See Comments Comments: Nasal congestion, brings on an asthma attack. surgical tape [Other] 11/10/2009 2 - Rash 7 - Swelling Comments: Oral rash, swelling of eyes, asthma attacks; per pateint report. Date Reviewed: 07/27/2017 Reviewed by: Liam Payne Ma - Fully Assessed Prescriptions as of 08/07/2017 Sig: PREGABALIN 150 MG CAPSULE Take 1 capsule by mouth twice* ATORVASTATIN 20 MG TABLET Take 1 tablet by mouth once d* LANSOPRAZOLE 30 MG CAPSULE,DE* TAKE 1 CAPSULE TWICE A DAY BUMETANIDE 0.5 MG TABLET Take 1 tablet by mouth once d* NITROGLYCERIN 0.4 MG SUBLINGU* DISSOLVE 1 TABLET UNDER THE T* ALBUTEROL SULFATE HFA 90 MCG/* Inhale 2 Puffs as instructed * FLUTICASONE 100 MCG-VILANTERO* Inhale 1 Inhalation as instru* LEVALBUTEROL 1.25 MG/3 ML BRENDA* Use 1 Ampule via nebulizer ev* FLUTICASONE 50 MCG/ACTUATION * 1-2 sprays each side qd BUDESONIDE 0.5 MG/2 ML SUSPEN* Use 1 Ampule via nebulizer tw* AZELASTINE 0.15 % (205.5 MCG)* Use 1 Wilberforce in each nostril t* COMPOUNDED PRESCRIPTION Nocturnal oximetry on room ai* CHOLESTYRAMINE (WITH SUGAR) 4* Take 1 scoop by mouth once da* AMLODIPINE 10 MG TABLET Take 0.5 tablets by mouth onc* CYANOCOBALAMIN (VIT B-12) 1,0* Take 1 tablet by mouth once d* ATENOLOL 25 MG TABLET Take 1 tablet by mouth once d* EPINEPHRINE 0.3 MG/0.3 ML INJ* Inject 0.3 mL intramuscularly* PREDNISONE 10 MG TABLET Take 2.5 tablets by mouth onc* Patient taking differently: Take 25 mg by mouth once mary ellen* ERGOCALCIFEROL (VITAMIN D2) 5* Take 1 capsule by mouth once * Patient taking differently: Take 50,000 Units by mouth on* TURMERIC ROOT EXTRACT ORAL Take 1 tablet by mouth twice * CRISABOROLE 2 % TOPICAL OINTM* Apply to the hands twice daily COMPOUNDED PRESCRIPTION Please provide patient with n* CETIRIZINE 10 MG TABLET Take 10 mg by mouth once mary ellen* PIMECROLIMUS 1 % TOPICAL CREAM Apply twice daily to the hands SPIRONOLACTONE 50 MG TABLET Take 1 tablet by mouth twice * ONDANSETRON HCL 4 MG TABLET Take 1 tablet by mouth every * BENZONATATE 200 MG CAPSULE Take 200 mg by mouth three ti* LACTOBACILLUS RHAMNOSUS GG 10* Take 1 capsule by mouth twice* FAMOTIDINE 20 MG TABLET Take 1 tablet by mouth twice * Patient taking differently: Take 20 mg by mouth twice liam* DIPHENHYDRAMINE 50 MG CAPSULE Take 1 capsule by mouth every* AMOXICILLIN 250 MG CAPSULE Take 250 mg by mouth once liam* ZAFIRLUKAST 20 MG TABLET Take 1 tablet by mouth twice * DOXAZOSIN 2 MG TABLET Take 2 mg by mouth once daily. CYCLOSPORINE MODIFIED 50 MG C* Take 50 mg by mouth twice liam* ASCORBIC ACID (VITAMIN C) 500* Take 1 tablet by mouth once d* ALBUTEROL SULFATE 2.5 MG/3 ML* Use 3 mL via nebulizer one ti* Progress Notes: Saige Fay, PT 08/07/2017 1:14 PM Signed Episode Visit Count: 6 Therapist That Will Oversee The Plan Of Care: Taty Philip Start of Care Date: 07/21/17 Onset Date: 07/21/16 (about one year) REHABILITATION AND SPORTS THERAPY PHYSICAL THERAPY TREATMENT NOTE ASSESSMENT: Ralph Joshi demonstrated difficulty with continuation of burning left ankle. She has improvements with movement in left ankle. Patient with a reduction in pain and burning following treatment today. The patient will continue to benefit from continued skilled physical therapy for pain reduction in left ankle, decrease edema and exercise. PLAN FOR NEXT VISIT: continue with ex, manual retrograde massage and US. SUBJECTIVE: Patient reports the ankle is moving better. She reports still having the burning and swelling. She reports the swelling has been going on for years and the burning and increase pain have been more recent. She reports temporary reduction in pain with US and than pain returns. Pain Score: 5/10 Pain Location: Ankle - Left Description: Burning Frequency: Continuous Post Treatment Pain Score: 2/10 Pain Location: Ankle - Left Post Treatment Pain Description: Burning (mild burning) OBJECTIVE MEASURES WITH LEVEL OF FUNCTION: Decrease edema left posterior lateral malleoli. TREATMENT: Therapeutic Exercise: 1: Step One stepper seat 11, resistance 2 x 5 minutes. Spoke with patient regarding progression of ex today. 2: AROM ankle pumps left 1 x 20 reps 3: AROM ankle left inversion/eversion1 x 20 reps 4: ankle circles left CW and CCW 1x 20 each 5: ankle alphabet A-Z x 1 . 6: Seated BAPS ball 3 with pegs, left PWB A/P, lateral and circles cw and ccw 2x15. 7: seated strap assist left calf stretch x 30 sec holds, 3 reps 8: Seated toe curls left 2x30 seconds. Skilled Intervention: Patient was educated in proper exercise technique and purpose for exercises. Skilled judgment was provided in selection of appropriate interventions. Correct performance of therapeutic exercises was facilitated with verbal cuing. Manual Therapy: 1: Retrograde massage left ankle in elevation wedge bolster while supine lying x 13 minutes. Skilled Intervention: Manual skills to improve joint mobility, ROM, and decrease pain. Utilized anatomy knowledge of the therapist, and assessment of patient's response to intervention. Modalities: Ultrasound See flowsheet for details regarding treatment. Skilled Intervention: Proper administration and selection of modality based on clinical presentation, deficits, and needs. Patient response monitored throughout treatment. Billing: [facility]: Therapeutic Exercise ([id number]): 1:1 time: 18 minutes (1 unit: 8-22 mins) Manual Therapy ([id number]): 1:1 time: 13 minutes (1 unit: 8-22 mins) Modalities Ultrasound ([id number]) 1:1 time: 10 minutes1 unit: 8-22 mins Total time: 41 minutes Michaela Blakely PT-A/Saige Fay PT Previous Version Follow-up and Disposition History Recorded CNTHERAPY Observed: 08/04/2017 Status: COMPLETED Source: [place] 8:00 AM [facility] REPOSITORY OT/PT/Speech Visit (PTWS) ADIRALPH Mckinnon ([id number]) 1955 F Date Time Provider Department 08/04/17 8:00 AM TATY PHILIP (PT) PTWS Date Time Provider Department Center 08/04/2017 8:00 AM [id number] PHILIP (PT) PTWS [facility] Reason for Visit: Physical Therapy [503] Primary Visit Diagnosis:Peroneal tendinitis, left [M76.72] Allergies As of Date: 08/04/2017 Noted Allergy Reaction AVOCADO 09/10/2014 10 - Anaphylaxis BANANA 09/10/2014 10 - Anaphylaxis CARBINOXAMINE 09/17/2012 10 - Anaphylaxis YOSELIN SEED 08/28/2013 10 - Anaphylaxis CIPROFLOXACIN 04/11/2014 10 - Anaphylaxis CODEINE 01/12/2012 10 - Anaphylaxis CONTRAST DYE 05/17/2013 10 - Anaphylaxis Comments: To MRI and CT FISH 09/07/2014 10 - Anaphylaxis HYCODAN (HYDROCODONE-HOMATROPINE) 09/08/2011 10 - Anaphylaxis Comments: Face and throat swelling LATEX 01/21/2014 10 - Anaphylaxis IMTIAZ-SYNEPHRINE (PHENYLEPHRINE HCL)09/04/2014 10 - Anaphylaxis Comments: 10% eye drop NICKEL 01/07/2014 2 - Rash 4 - Hives 10 - Anaphylaxis NSAIDS (NON-STEROIDAL ANTI-INFLAM*08/16/2010 14 - Other: See Comments Comments: Kidney function drops; reversible kidney damage. OXYCODONE 08/28/2013 10 - Anaphylaxis PERIACTIN (CYPROHEPTADINE) 09/17/2012 10 - Anaphylaxis PNEUMOCOCCAL VACCINE 10/31/2014 10 - Anaphylaxis SHELLFISH 09/07/2014 10 - Anaphylaxis ZANTAC (RANITIDINE) 09/17/2012 10 - Anaphylaxis ATIVAN (LORAZEPAM) 08/28/2013 14 - Other: See Comments Comments: hallucination BEEF CONTAINING PRODUCTS 09/10/2014 2 - Rash CORN 05/03/2011 14 - Other: See Comments Comments: Feels like an asthma attack. EGGS (EGG) 03/08/2011 2 - Rash 11 - Vomiting EKG LEADS (ADHESIVE) 10/22/2012 2 - Rash Comments: Localized,only under the leads INFLUENZA VIRUS VACCINES 10/22/2012 12 - Shortness of Breath LISINOPRIL 04/20/2004 3 - Cough MILK 03/08/2011 2 - Rash 11 - Vomiting MOMETASONE 04/05/2017 10 - Anaphylaxis Comments: Per Dr. Salas she tolerates formoterol (on Breo at home) but is allergic to mometasone. Okayed by him to update. XOLAIR (OMALIZUMAB) 04/19/2012 12 - Shortness of Breath environmental [Other] 06/26/2007 14 - Other: See Comments Comments: Nasal congestion, brings on an asthma attack. surgical tape [Other] 11/10/2009 2 - Rash 7 - Swelling Comments: Oral rash, swelling of eyes, asthma attacks; per pateint report. Date Reviewed: 07/27/2017 Reviewed by: Liam Payne Ma - Fully Assessed Prescriptions as of 08/04/2017 Sig: PREGABALIN 150 MG CAPSULE Take 1 capsule by mouth twice* ATORVASTATIN 20 MG TABLET Take 1 tablet by mouth once d* LANSOPRAZOLE 30 MG CAPSULE,DE* TAKE 1 CAPSULE TWICE A DAY BUMETANIDE 0.5 MG TABLET Take 1 tablet by mouth once d* NITROGLYCERIN 0.4 MG SUBLINGU* DISSOLVE 1 TABLET UNDER THE T* ALBUTEROL SULFATE HFA 90 MCG/* Inhale 2 Puffs as instructed * FLUTICASONE 100 MCG-VILANTERO* Inhale 1 Inhalation as instru* LEVALBUTEROL 1.25 MG/3 ML BRENDA* Use 1 Ampule via nebulizer ev* FLUTICASONE 50 MCG/ACTUATION * 1-2 sprays each side qd BUDESONIDE 0.5 MG/2 ML SUSPEN* Use 1 Ampule via nebulizer tw* AZELASTINE 0.15 % (205.5 MCG)* Use 1 Wilberforce in each nostril t* COMPOUNDED PRESCRIPTION Nocturnal oximetry on room ai* CHOLESTYRAMINE (WITH SUGAR) 4* Take 1 scoop by mouth once da* AMLODIPINE 10 MG TABLET Take 0.5 tablets by mouth onc* CYANOCOBALAMIN (VIT B-12) 1,0* Take 1 tablet by mouth once d* ATENOLOL 25 MG TABLET Take 1 tablet by mouth once d* EPINEPHRINE 0.3 MG/0.3 ML INJ* Inject 0.3 mL intramuscularly* PREDNISONE 10 MG TABLET Take 2.5 tablets by mouth onc* Patient taking differently: Take 25 mg by mouth once mary ellen* ERGOCALCIFEROL (VITAMIN D2) 5* Take 1 capsule by mouth once * Patient taking differently: Take 50,000 Units by mouth on* TURMERIC ROOT EXTRACT ORAL Take 1 tablet by mouth twice * CRISABOROLE 2 % TOPICAL OINTM* Apply to the hands twice daily COMPOUNDED PRESCRIPTION Please provide patient with n* CETIRIZINE 10 MG TABLET Take 10 mg by mouth once mary ellen* PIMECROLIMUS 1 % TOPICAL CREAM Apply twice daily to the hands SPIRONOLACTONE 50 MG TABLET Take 1 tablet by mouth twice * ONDANSETRON HCL 4 MG TABLET Take 1 tablet by mouth every * BENZONATATE 200 MG CAPSULE Take 200 mg by mouth three ti* LACTOBACILLUS RHAMNOSUS GG 10* Take 1 capsule by mouth twice* FAMOTIDINE 20 MG TABLET Take 1 tablet by mouth twice * Patient taking differently: Take 20 mg by mouth twice liam* DIPHENHYDRAMINE 50 MG CAPSULE Take 1 capsule by mouth every* AMOXICILLIN 250 MG CAPSULE Take 250 mg by mouth once liam* ZAFIRLUKAST 20 MG TABLET Take 1 tablet by mouth twice * DOXAZOSIN 2 MG TABLET Take 2 mg by mouth once daily. CYCLOSPORINE MODIFIED 50 MG C* Take 50 mg by mouth twice liam* ASCORBIC ACID (VITAMIN C) 500* Take 1 tablet by mouth once d* ALBUTEROL SULFATE 2.5 MG/3 ML* Use 3 mL via nebulizer one ti* Progress Notes: Taty Philip PT 08/04/2017 9:08 AM Signed Episode Visit Count: 5 Therapist That Will Oversee The Plan Of Care: Taty Philip Start of Care Date: 07/21/17 Onset Date: 07/21/16 (about one year) Patient Identified by Name and Date of : Yes REHABILITATION AND SPORTS THERAPY PHYSICAL THERAPY TREATMENT NOTE ASSESSMENT: Ralph Joshi demonstrated improvements in L ankle AROM and advancement of exercises (increased resistance/sets). The patient will continue to benefit from continued skilled physical therapy for increasing ankle AROM and strength, and further reduction of pain and edema. PLAN FOR NEXT VISIT: may progress strengthening to symptom tolerance. Continue with manual techniques for edema control and modalities to manage pain and inflammation. SUBJECTIVE: Pt states since last night her ankle pain (burning) has been more intense. She denies any changes in activity or anything else that may have caused increased symptoms. She also notes it does not feel worse with walking or activity. Pain Score: 5/10 Pain Location: Ankle - Left Description: Burning Frequency: Continuous Post Treatment Pain Score: (not stated) Pain Location: Ankle - Left OBJECTIVE MEASURES WITH LEVEL OF FUNCTION: LE AROM L Ankle Dorsiflexion: 8 Degrees L Ankle Plantar Flexion: 55 Degrees L Ankle Inversion: 32 L Ankle Eversion: 15 TREATMENT: Therapeutic Exercise: 1: Step One stepper seat 11, resistance 2 x 5 minutes. Spoke with patient regarding progression of ex today. 2: AROM ankle pumps left 2 x 20 reps 3: AROM ankle left inversion/eversion 2 x 20 reps 4: ankle circles left CW and CCW 2x 20 each 5: ankle alphabet A-Z x 1 rep 6: Seated BAPS ball 3 with pegs, left PWB A/P, lateral and circles cw and ccw 2x15. 7: seated strap assist left calf stretch x 30 sec holds, 3 reps 8: Seated toe curls left 2x30 seconds. Skilled Intervention: Patient was educated in proper exercise technique and purpose for exercises. Reviewed and educated patient on additions/changes for home exercise program and pt to increase sets of exercises as above. Skilled judgment was provided in selection of appropriate interventions. Correct performance of therapeutic exercises was facilitated with verbal and visual cuing. Patient education as noted. Pt did not report any increase in symptoms during activities today. Manual Therapy: 1: Retrograde massage left ankle in elevation wedge bolster while supine lying x 10 minutes. Skilled Intervention: Manual skills to improve joint mobility, ROM, and decrease pain. Utilized anatomy knowledge of the therapist, and assessment of patient's response to intervention. Modalities: Ultrasound See flowsheet for details regarding treatment. Skilled Intervention: Proper administration and selection of modality based on clinical presentation, deficits, and needs. Patient response monitored throughout treatment. Billing: [facility]: Therapeutic Exercise ([id number]): 1:1 time: 22 minutes (1 units: 8-22 mins) Manual Therapy ([id number]): 1:1 time: 10 minutes (1 unit: 8-22 mins) Modalities Ultrasound ([id number]) 1:1 time: 10 minutes (1 unit: 8-22 mins) Total time: 42 minutes Taty Philip PT PROGRESS Observed: 08/04/2017 Status: COMPLETED Source: [place] 7:50 AM [facility] [place] REPOSITORY HNO ID: [id number] Author: Taty (Pt) Cedrick Service: (none) Author Type: Physical Therapist Type: Progress Notes Filed: 08/04/2017 9:08 AM Note Text: Episode Visit Count: 5 Therapist That Will Oversee The Plan Of Care: Taty Philip Start of Care Date: 07/21/17 Onset Date: 07/21/16 (about one year) Patient Identified by Name and Date of : Yes REHABILITATION AND SPORTS THERAPY PHYSICAL THERAPY TREATMENT NOTE ASSESSMENT: Ralph Joshi demonstrated improvements in L ankle AROM and advancement of exercises (increased resistance/sets). The patient will continue to benefit from continued skilled physical therapy for increasing ankle AROM and strength, and further reduction of pain and edema. PLAN FOR NEXT VISIT: may progress strengthening to symptom tolerance. Continue with manual techniques for edema control and modalities to manage pain and inflammation. SUBJECTIVE: Pt states since last night her ankle pain (burning) has been more intense. She denies any changes in activity or anything else that may have caused increased symptoms. She also notes it does not feel worse with walking or activity. Pain Score: 5/10 Pain Location: Ankle - Left Description: Burning Frequency: Continuous Post Treatment Pain Score: (not stated) Pain Location: Ankle - Left OBJECTIVE MEASURES WITH LEVEL OF FUNCTION: LE AROM L Ankle Dorsiflexion: 8 Degrees L Ankle Plantar Flexion: 55 Degrees L Ankle Inversion: 32 L Ankle Eversion: 15 TREATMENT: Therapeutic Exercise: 1: Step One stepper seat 11, resistance 2 x 5 minutes. Spoke with patient regarding progression of ex today. 2: AROM ankle pumps left 2 x 20 reps 3: AROM ankle left inversion/eversion 2 x 20 reps 4: ankle circles left CW and CCW 2x 20 each 5: ankle alphabet A-Z x 1 rep 6: Seated BAPS ball 3 with pegs, left PWB A/P, lateral and circles cw and ccw 2x15. 7: seated strap assist left calf stretch x 30 sec holds, 3 reps 8: Seated toe curls left 2x30 seconds. Skilled Intervention: Patient was educated in proper exercise technique and purpose for exercises. Reviewed and educated patient on additions/changes for home exercise program and pt to increase sets of exercises as above. Skilled judgment was provided in selection of appropriate interventions. Correct performance of therapeutic exercises was facilitated with verbal and visual cuing. Patient education as noted. Pt did not report any increase in symptoms during activities today. Manual Therapy: 1: Retrograde massage left ankle in elevation wedge bolster while supine lying x 10 minutes. Skilled Intervention: Manual skills to improve joint mobility, ROM, and decrease pain. Utilized anatomy knowledge of the therapist, and assessment of patient's response to intervention. Modalities: Ultrasound See flowsheet for details regarding treatment. Skilled Intervention: Proper administration and selection of modality based on clinical presentation, deficits, and needs. Patient response monitored throughout treatment. Billing: [facility]: Therapeutic Exercise ([id number]): 1:1 time: 22 minutes (1 units: 8-22 mins) Manual Therapy ([id number]): 1:1 time: 10 minutes (1 unit: 8-22 mins) Modalities Ultrasound ([id number]) 1:1 time: 10 minutes (1 unit: 8-22 mins) Total time: 42 minutes Taty Philip PT PROGRESS Observed: 07/31/2017 Status: COMPLETED Source: [place] 9:25 AM [facility] REPOSITORY HNO ID: [id number] Author: Taty (Pt) Cedrick Service: (none) Author Type: Physical Therapist Type: Progress Notes Filed: 07/31/2017 10:32 AM Note Text: Episode Visit Count: 4 Therapist That Will Oversee The Plan Of Care: Taty Philip Start of Care Date: 07/21/17 Onset Date: 07/21/16 (about one year) REHABILITATION AND SPORTS THERAPY PHYSICAL THERAPY TREATMENT NOTE ASSESSMENT: Ralph Joshi demonstrated normal gait. She still has edema left ankle but overall pain is decreased. Patient with a reduction in pain today with exercise,retrograde massage and US. The patient will continue to benefit from continued skilled physical therapy for continuation of treatment to further decrease pain and edema. PLAN FOR NEXT VISIT: Continue with exercise, manual retrograd massage and US for pain control. SUBJECTIVE: Patient reports she is feeling better with less burning in ankle and less pain. Pain Score: 3/10 Pain Location: Ankle - Left Description: Burning Frequency: Continuous Post Treatment Pain Score: 1/10 Pain Location: Ankle - Left Post Treatment Pain Description: (decreased and better) OBJECTIVE MEASURES WITH LEVEL OF FUNCTION: Ankle Observations L Ankle Presents with: Comments (edema persist left ankle) Gait Assessment Gait Observation: Normal gait on level surface. TREATMENT: Therapeutic Exercise: 1: Step One stepper seat 11, resistance 2 x 5 minutes. Spoke with patient regarding progression of ex today. 2: AROM ankle pumps left 1 x 20 reps 3: AROM ankle left inversion/eversion 1 x 20 reps 4: ankle circles left CW and CCW x 20 each 5: Seated BAPS ball 3 left PWB A/P, lateral and circles cw and ccw 2x15. 6: seated strap assist left calf stretch x 30 sec holds, 3 reps 7: Seated left ankle ABC's A-Z x 1. 8: Seated toe curls left 2x30 seconds. Skilled Intervention: Patient was educated in proper exercise technique and purpose for exercises. Skilled judgment was provided in selection of appropriate interventions. Correct performance of therapeutic exercises was facilitated with verbal cuing. Manual Therapy: 1: Retrograde massage left ankle in elevation wedge bolster while supine lying x 10 minutes. Skilled Intervention: Manual skills to improve joint mobility, ROM, and decrease pain. Utilized anatomy knowledge of the therapist, and assessment of patient's response to intervention. Modalities: Ultrasound See flowsheet for details regarding treatment. Skilled Intervention: Proper administration and selection of modality based on clinical presentation, deficits, and needs. Patient response monitored throughout treatment. Billing: [facility]: Therapeutic Exercise ([id number]): 1:1 time: 22 minutes (1 unit: 8-22 mins) Manual Therapy ([id number]): 1:1 time: 10 minutes (1 unit: 8-22 mins) Modalities Ultrasound ([id number]) 1:1 time: 10 minutes1 unit: 8-22 mins Total time: 42 minutes Michaela Blakely, PT-A Taty Philip PT CNTHERAPY Observed: 07/31/2017 Status: COMPLETED Source: [place] 7:45 AM [facility] REPOSITORY OT/PT/Speech Visit (PTWS) ADIRALPH Mckinnon ([id number]) 1955 F Date Time Provider Department 07/31/17 7:45 AM MICHAELA BLAKELY ([employer]) PTWS Date Time Provider Department Center 07/31/2017 7:45 AM [id number], NANCY ([employer]) PTWS [facility] Reason for Visit: Physical Therapy [503] Primary Visit Diagnosis:Peroneal tendinitis, left [M76.72] Allergies As of Date: 07/31/2017 Noted Allergy Reaction AVOCADO 09/10/2014 10 - Anaphylaxis BANANA 09/10/2014 10 - Anaphylaxis CARBINOXAMINE 09/17/2012 10 - Anaphylaxis YOSELIN SEED 08/28/2013 10 - Anaphylaxis CIPROFLOXACIN 04/11/2014 10 - Anaphylaxis CODEINE 01/12/2012 10 - Anaphylaxis CONTRAST DYE 05/17/2013 10 - Anaphylaxis Comments: To MRI and CT FISH 09/07/2014 10 - Anaphylaxis HYCODAN (HYDROCODONE-HOMATROPINE) 09/08/2011 10 - Anaphylaxis Comments: Face and throat swelling LATEX 01/21/2014 10 - Anaphylaxis IMTIAZ-SYNEPHRINE (PHENYLEPHRINE HCL)09/04/2014 10 - Anaphylaxis Comments: 10% eye drop NICKEL 01/07/2014 2 - Rash 4 - Hives 10 - Anaphylaxis NSAIDS (NON-STEROIDAL ANTI-INFLAM*08/16/2010 14 - Other: See Comments Comments: Kidney function drops; reversible kidney damage. OXYCODONE 08/28/2013 10 - Anaphylaxis PERIACTIN (CYPROHEPTADINE) 09/17/2012 10 - Anaphylaxis PNEUMOCOCCAL VACCINE 10/31/2014 10 - Anaphylaxis SHELLFISH 09/07/2014 10 - Anaphylaxis ZANTAC (RANITIDINE) 09/17/2012 10 - Anaphylaxis ATIVAN (LORAZEPAM) 08/28/2013 14 - Other: See Comments Comments: hallucination BEEF CONTAINING PRODUCTS 09/10/2014 2 - Rash CORN 05/03/2011 14 - Other: See Comments Comments: Feels like an asthma attack. EGGS (EGG) 03/08/2011 2 - Rash 11 - Vomiting EKG LEADS (ADHESIVE) 10/22/2012 2 - Rash Comments: Localized,only under the leads INFLUENZA VIRUS VACCINES 10/22/2012 12 - Shortness of Breath LISINOPRIL 04/20/2004 3 - Cough MILK 03/08/2011 2 - Rash 11 - Vomiting MOMETASONE 04/05/2017 10 - Anaphylaxis Comments: Per Dr. Salas she tolerates formoterol (on Breo at home) but is allergic to mometasone. Okayed by him to update. XOLAIR (OMALIZUMAB) 04/19/2012 12 - Shortness of Breath environmental [Other] 06/26/2007 14 - Other: See Comments Comments: Nasal congestion, brings on an asthma attack. surgical tape [Other] 11/10/2009 2 - Rash 7 - Swelling Comments: Oral rash, swelling of eyes, asthma attacks; per pateint report. Date Reviewed: 07/27/2017 Reviewed by: Liam Payne Ma - Fully Assessed Prescriptions as of 07/31/2017 Sig: PREGABALIN 150 MG CAPSULE Take 1 capsule by mouth twice* ATORVASTATIN 20 MG TABLET Take 1 tablet by mouth once d* LANSOPRAZOLE 30 MG CAPSULE,DE* TAKE 1 CAPSULE TWICE A DAY BUMETANIDE 0.5 MG TABLET Take 1 tablet by mouth once d* NITROGLYCERIN 0.4 MG SUBLINGU* DISSOLVE 1 TABLET UNDER THE T* ALBUTEROL SULFATE HFA 90 MCG/* Inhale 2 Puffs as instructed * FLUTICASONE 100 MCG-VILANTERO* Inhale 1 Inhalation as instru* LEVALBUTEROL 1.25 MG/3 ML BRENDA* Use 1 Ampule via nebulizer ev* FLUTICASONE 50 MCG/ACTUATION * 1-2 sprays each side qd BUDESONIDE 0.5 MG/2 ML SUSPEN* Use 1 Ampule via nebulizer tw* AZELASTINE 0.15 % (205.5 MCG)* Use 1 Wilberforce in each nostril t* COMPOUNDED PRESCRIPTION Nocturnal oximetry on room ai* CHOLESTYRAMINE (WITH SUGAR) 4* Take 1 scoop by mouth once da* AMLODIPINE 10 MG TABLET Take 0.5 tablets by mouth onc* CYANOCOBALAMIN (VIT B-12) 1,0* Take 1 tablet by mouth once d* ATENOLOL 25 MG TABLET Take 1 tablet by mouth once d* EPINEPHRINE 0.3 MG/0.3 ML INJ* Inject 0.3 mL intramuscularly* PREDNISONE 10 MG TABLET Take 2.5 tablets by mouth onc* Patient taking differently: Take 25 mg by mouth once mary ellen* ERGOCALCIFEROL (VITAMIN D2) 5* Take 1 capsule by mouth once * Patient taking differently: Take 50,000 Units by mouth on* TURMERIC ROOT EXTRACT ORAL Take 1 tablet by mouth twice * CRISABOROLE 2 % TOPICAL OINTM* Apply to the hands twice daily COMPOUNDED PRESCRIPTION Please provide patient with n* CETIRIZINE 10 MG TABLET Take 10 mg by mouth once mary ellen* PIMECROLIMUS 1 % TOPICAL CREAM Apply twice daily to the hands SPIRONOLACTONE 50 MG TABLET Take 1 tablet by mouth twice * ONDANSETRON HCL 4 MG TABLET Take 1 tablet by mouth every * BENZONATATE 200 MG CAPSULE Take 200 mg by mouth three ti* LACTOBACILLUS RHAMNOSUS GG 10* Take 1 capsule by mouth twice* FAMOTIDINE 20 MG TABLET Take 1 tablet by mouth twice * Patient taking differently: Take 20 mg by mouth twice liam* DIPHENHYDRAMINE 50 MG CAPSULE Take 1 capsule by mouth every* AMOXICILLIN 250 MG CAPSULE Take 250 mg by mouth once liam* ZAFIRLUKAST 20 MG TABLET Take 1 tablet by mouth twice * DOXAZOSIN 2 MG TABLET Take 2 mg by mouth once daily. CYCLOSPORINE MODIFIED 50 MG C* Take 50 mg by mouth twice liam* ASCORBIC ACID (VITAMIN C) 500* Take 1 tablet by mouth once d* ALBUTEROL SULFATE 2.5 MG/3 ML* Use 3 mL via nebulizer one ti* Progress Notes: Taty Philip, PT 07/31/2017 10:32 AM Signed Episode Visit Count: 4 Therapist That Will Oversee The Plan Of Care: Taty Philip Start of Care Date: 07/21/17 Onset Date: 07/21/16 (about one year) REHABILITATION AND SPORTS THERAPY PHYSICAL THERAPY TREATMENT NOTE ASSESSMENT: Ralph Joshi demonstrated normal gait. She still has edema left ankle but overall pain is decreased. Patient with a reduction in pain today with exercise,retrograde massage and US. The patient will continue to benefit from continued skilled physical therapy for continuation of treatment to further decrease pain and edema. PLAN FOR NEXT VISIT: Continue with exercise, manual retrograd massage and US for pain control. SUBJECTIVE: Patient reports she is feeling better with less burning in ankle and less pain. Pain Score: 3/10 Pain Location: Ankle - Left Description: Burning Frequency: Continuous Post Treatment Pain Score: 1/10 Pain Location: Ankle - Left Post Treatment Pain Description: (decreased and better) OBJECTIVE MEASURES WITH LEVEL OF FUNCTION: Ankle Observations L Ankle Presents with: Comments (edema persist left ankle) Gait Assessment Gait Observation: Normal gait on level surface. TREATMENT: Therapeutic Exercise: 1: Step One stepper seat 11, resistance 2 x 5 minutes. Spoke with patient regarding progression of ex today. 2: AROM ankle pumps left 1 x 20 reps 3: AROM ankle left inversion/eversion 1 x 20 reps 4: ankle circles left CW and CCW x 20 each 5: Seated BAPS ball 3 left PWB A/P, lateral and circles cw and ccw 2x15. 6: seated strap assist left calf stretch x 30 sec holds, 3 reps 7: Seated left ankle ABC's A-Z x 1. 8: Seated toe curls left 2x30 seconds. Skilled Intervention: Patient was educated in proper exercise technique and purpose for exercises. Skilled judgment was provided in selection of appropriate interventions. Correct performance of therapeutic exercises was facilitated with verbal cuing. Manual Therapy: 1: Retrograde massage left ankle in elevation wedge bolster while supine lying x 10 minutes. Skilled Intervention: Manual skills to improve joint mobility, ROM, and decrease pain. Utilized anatomy knowledge of the therapist, and assessment of patient's response to intervention. Modalities: Ultrasound See flowsheet for details regarding treatment. Skilled Intervention: Proper administration and selection of modality based on clinical presentation, deficits, and needs. Patient response monitored throughout treatment. Billing: [facility]: Therapeutic Exercise ([id number]): 1:1 time: 22 minutes (1 unit: 8-22 mins) Manual Therapy ([id number]): 1:1 time: 10 minutes (1 unit: 8-22 mins) Modalities Ultrasound ([id number]) 1:1 time: 10 minutes1 unit: 8-22 mins Total time: 42 minutes Michaela Blakely, PT-Yoli Philip, PT Previous Version Follow-up and Disposition History Recorded PROGRESS Observed: 07/27/2017 Status: COMPLETED Source: [place] 2:18 PM [facility] REPOSITORY HNO ID: [id number] Author: Francesco Shaikh Service: (none) Author Type: Physician [employer] Type: Progress Notes Filed: 07/27/2017 3:00 PM Note Text: DATE: ?10/25/2016 ? OPERATION: ?C5-6 and C6-7 anterior cervical diskectomy, partial corpectomy C6, use ?of operating microscope, decompression of spinal cord and nerve roots of C6 and C7 ?bilaterally, interbody fusion C5-6 and C6-7 using cortical cancellous allograft cage ?and placement of a cervical anterior plate (Antonio) ? ? Mrs Joshi is now almost 6 mos post-op Doing well from a cervical perspective Continues with long h/o buttock and b/l leg pain, worse Injection on hold, needs to see clerical investigator which is scheduled next month Exam: Motor: 5/5 SILT Neuro stable Assessment/Plan: 9 months s/p C5-7 ACDF; doing well, continues with neurologic improvement Continue with conservative care Follow-up 5 months LENNY Linares MD ? CNOV Observed: 07/27/2017 Status: COMPLETED Source: [place] 2:00 PM [facility] REPOSITORY Office Visit (SPNSST) RALPH JOSHI ([id number]) 1955 F Date Time Provider Department 07/27/17 2:00 PM FANTA COKER SPEVELINAST During your visit today, we recorded the following information about you: Respiration Weight Height 16/minute 89.8 kg 1.626 m Liam Payne Ma 07/27/2017 2:15 PM Signed Ralph Joshi is a 62 year old female who follows up today for 9 month post op. AMB ROOMING INTAKE FLOWSHEET DATA Risk Screening Do you have concerns about personal safety or safety in the home?: No Pain Pain Score: 2/10 Pain Location: Other: See Comment (arms) Description: Aching Duration Amount of Time: 9 Duration Units: Months (post up) Frequency: Intermittent Intervention: Medication Ravinder Bhatia Ma, PA-C 07/27/2017 3:00 PM Signed DATE: ?10/25/2016 ? OPERATION: ?C5-6 and C6-7 anterior cervical diskectomy, partial corpectomy C6, use ?of operating microscope, decompression of spinal cord and nerve roots of C6 and C7 ?bilaterally, interbody fusion C5-6 and C6-7 using cortical cancellous allograft cage ?and placement of a cervical anterior plate (Lotus) ? ? Mrs Joshi is now almost 6 mos post-op Doing well from a cervical perspective Continues with long h/o buttock and b/l leg pain, worse Injection on hold, needs to see clerical investigator which is scheduled next month Exam: Motor: 5/5 SILT Neuro stable Assessment/Plan: 9 months s/p C5-7 ACDF; doing well, continues with neurologic improvement Continue with conservative care Follow-up 5 months LENNY Linares MD ? Referring Provider: FANTA COKER [[id number]] Allergies As of Date: 07/27/2017 Noted Allergy Reaction AVOCADO 09/10/2014 10 - Anaphylaxis BANANA 09/10/2014 10 - Anaphylaxis CARBINOXAMINE 09/17/2012 10 - Anaphylaxis YOSELIN SEED 08/28/2013 10 - Anaphylaxis CIPROFLOXACIN 04/11/2014 10 - Anaphylaxis CODEINE 01/12/2012 10 - Anaphylaxis CONTRAST DYE 05/17/2013 10 - Anaphylaxis Comments: To MRI and CT FISH 09/07/2014 10 - Anaphylaxis HYCODAN (HYDROCODONE-HOMATROPINE) 09/08/2011 10 - Anaphylaxis Comments: Face and throat swelling LATEX 01/21/2014 10 - Anaphylaxis IMTIAZ-SYNEPHRINE (PHENYLEPHRINE HCL)09/04/2014 10 - Anaphylaxis Comments: 10% eye drop NICKEL 01/07/2014 2 - Rash 4 - Hives 10 - Anaphylaxis NSAIDS (NON-STEROIDAL ANTI-INFLAM*08/16/2010 14 - Other: See Comments Comments: Kidney function drops; reversible kidney damage. OXYCODONE 08/28/2013 10 - Anaphylaxis PERIACTIN (CYPROHEPTADINE) 09/17/2012 10 - Anaphylaxis PNEUMOCOCCAL VACCINE 10/31/2014 10 - Anaphylaxis SHELLFISH 09/07/2014 10 - Anaphylaxis ZANTAC (RANITIDINE) 09/17/2012 10 - Anaphylaxis ATIVAN (LORAZEPAM) 08/28/2013 14 - Other: See Comments Comments: hallucination BEEF CONTAINING PRODUCTS 09/10/2014 2 - Rash CORN 05/03/2011 14 - Other: See Comments Comments: Feels like an asthma attack. EGGS (EGG) 03/08/2011 2 - Rash 11 - Vomiting EKG LEADS (ADHESIVE) 10/22/2012 2 - Rash Comments: Localized,only under the leads INFLUENZA VIRUS VACCINES 10/22/2012 12 - Shortness of Breath LISINOPRIL 04/20/2004 3 - Cough MILK 03/08/2011 2 - Rash 11 - Vomiting MOMETASONE 04/05/2017 10 - Anaphylaxis Comments: Per Dr. Salas she tolerates formoterol (on Breo at home) but is allergic to mometasone. Okayed by him to update. XOLAIR (OMALIZUMAB) 04/19/2012 12 - Shortness of Breath environmental [Other] 06/26/2007 14 - Other: See Comments Comments: Nasal congestion, brings on an asthma attack. surgical tape [Other] 11/10/2009 2 - Rash 7 - Swelling Comments: Oral rash, swelling of eyes, asthma attacks; per pateint report. Date Reviewed: 07/27/2017 Reviewed by: Liam Payne Ma - Fully Assessed Reason for Visit: Follow Up [171] Primary Visit Diagnosis:Cervical stenosis of spine [M48.02] Other Visit Diagnosis:Lumbar spondylosis [M47.816] Prescriptions as of 07/27/2017 Sig: ATORVASTATIN 20 MG TABLET Take 1 tablet by mouth once d* LANSOPRAZOLE 30 MG CAPSULE,DE* TAKE 1 CAPSULE TWICE A DAY BUMETANIDE 0.5 MG TABLET Take 1 tablet by mouth once d* NITROGLYCERIN 0.4 MG SUBLINGU* DISSOLVE 1 TABLET UNDER THE T* ALBUTEROL SULFATE HFA 90 MCG/* Inhale 2 Puffs as instructed * FLUTICASONE 100 MCG-VILANTERO* Inhale 1 Inhalation as instru* LEVALBUTEROL 1.25 MG/3 ML BRENDA* Use 1 Ampule via nebulizer ev* FLUTICASONE 50 MCG/ACTUATION * 1-2 sprays each side qd BUDESONIDE 0.5 MG/2 ML SUSPEN* Use 1 Ampule via nebulizer tw* AZELASTINE 0.15 % (205.5 MCG)* Use 1 Wilberforce in each nostril t* COMPOUNDED PRESCRIPTION Nocturnal oximetry on room ai* CHOLESTYRAMINE (WITH SUGAR) 4* Take 1 scoop by mouth once da* X PREGABALIN 150 MG CAPSULE Take 1 capsule by mouth twice* AMLODIPINE 10 MG TABLET Take 0.5 tablets by mouth onc* CYANOCOBALAMIN (VIT B-12) 1,0* Take 1 tablet by mouth once d* ATENOLOL 25 MG TABLET Take 1 tablet by mouth once d* EPINEPHRINE 0.3 MG/0.3 ML INJ* Inject 0.3 mL intramuscularly* PREDNISONE 10 MG TABLET Take 2.5 tablets by mouth onc* Patient taking differently: Take 25 mg by mouth once mary ellen* ERGOCALCIFEROL (VITAMIN D2) 5* Take 1 capsule by mouth once * Patient taking differently: Take 50,000 Units by mouth on* TURMERIC ROOT EXTRACT ORAL Take 1 tablet by mouth twice * CRISABOROLE 2 % TOPICAL OINTM* Apply to the hands twice daily COMPOUNDED PRESCRIPTION Please provide patient with n* CETIRIZINE 10 MG TABLET Take 10 mg by mouth once mary ellen* PIMECROLIMUS 1 % TOPICAL CREAM Apply twice daily to the hands SPIRONOLACTONE 50 MG TABLET Take 1 tablet by mouth twice * ONDANSETRON HCL 4 MG TABLET Take 1 tablet by mouth every * BENZONATATE 200 MG CAPSULE Take 200 mg by mouth three ti* LACTOBACILLUS RHAMNOSUS GG 10* Take 1 capsule by mouth twice* FAMOTIDINE 20 MG TABLET Take 1 tablet by mouth twice * Patient taking differently: Take 20 mg by mouth twice liam* DIPHENHYDRAMINE 50 MG CAPSULE Take 1 capsule by mouth every* AMOXICILLIN 250 MG CAPSULE Take 250 mg by mouth once liam* ZAFIRLUKAST 20 MG TABLET Take 1 tablet by mouth twice * DOXAZOSIN 2 MG TABLET Take 2 mg by mouth once daily. CYCLOSPORINE MODIFIED 50 MG C* Take 50 mg by mouth twice liam* ASCORBIC ACID (VITAMIN C) 500* Take 1 tablet by mouth once d* ALBUTEROL SULFATE 2.5 MG/3 ML* Use 3 mL via nebulizer one ti* Problem List As Of Date 07/27/2017 Noted Resolved JOINT PAIN-ANKLE [M25.579] INVALID FOR*03/20/2014 Edema [R60.9] INVALID FOR*03/28/2016 Priority: I Adrenal nodule (HCC) [E27.9] INVALID FOR* More... Diarrhea [R19.7] INVALID FOR*10/15/2013 Excessive or frequent menstruation [N92.0] INVALID FOR*07/14/2011 Shortness of breath [R06.02] INVALID FOR*10/15/2013 Palpitations [R00.2] INVALID FOR*03/20/2014 Tachycardia, unspecified [R00.0] INVALID FOR*10/15/2013 More... Open wound site NOS [T14.8XXA] INVALID FOR*07/16/2011 Abdominal pain, right upper quadrant [R10.11] INVALID FOR*07/14/2011 More... Acute gastritis without mention of hemorrhage [*INVALID FOR*10/15/2013 Hematuria [599.7] INVALID FOR*07/14/2011 URGE INCONTINENCE [N39.41] INVALID FOR* FEMALE STRESS INCONTINENCE [N39.3] INVALID FOR* Scar, hypertrophic [L91.0] INVALID FOR*10/15/2013 Ovarian cyst [N83.209] INVALID FOR*07/06/2010 Cyst INVALID FOR*10/15/2013 Other specified pre-operative examination [Z01.*INVALID FOR*07/16/2011 Hirsutism [L68.0] INVALID FOR* Dysphagia [R13.10] INVALID FOR*03/20/2014 GERD (gastroesophageal reflux disease) [K21.9] INVALID FOR* Priority: D More... 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 Obesity (BMI 30.0-34.9) [E66.9] INVALID FOR* More... More... More... More... Idiopathic anaphylaxis [T78.2XXA] INVALID FOR* Priority: A More... Urticaria, idiopathic [L50.1] INVALID FOR*03/28/2016 More... Hyperlipidemia LDL goal <100 [E78.5] INVALID FOR* Impaired fasting glucose [R73.01] INVALID FOR* Recurrent chest pain [R07.9, G89.29] INVALID FOR*12/09/2014 Multinodular goiter [E04.2] INVALID FOR* More... CKD (chronic kidney disease) stage 3, GFR 30-59*INVALID FOR* Pain in joint, ankle and foot [M25.579] INVALID FOR*12/09/2014 More... More... Steroid-induced hyperglycemia [R73.9, T38.0X5A] INVALID FOR*03/28/2016 Priority: C Moderate persistent asthma without complication*INVALID FOR* Ulcerative colitis without complications (HCC) *INVALID FOR* Anaphylaxis [T78.2XXA] INVALID FOR*03/26/2015 More... Neck pain, bilateral [M54.2] INVALID FOR*03/28/2016 Essential hypertension with goal blood pressure*INVALID FOR*03/28/2016 Chronic nausea [R11.0] INVALID FOR* Lumbar radiculitis [M54.16] INVALID FOR*03/28/2016 Lumbar stenosis [M48.061] INVALID FOR*03/28/2016 Acquired spondylolisthesis [M43.10] INVALID FOR*03/28/2016 Cervical radiculitis [M54.12] INVALID FOR*03/28/2016 Cervical spondylosis with radiculopathy [M47.22]INVALID FOR*03/29/2017 Shoulder impingement [M75.40] INVALID FOR*03/28/2016 Anaphylaxis [T78.2XXA] INVALID FOR*03/28/2016 Tendonitis, tibialis [M76.829] INVALID FOR*05/09/2016 Lumbar stenosis [M48.061] INVALID FOR* Cervical radiculitis [M54.12] INVALID FOR*03/29/2017 Cervical herniated disc [M50.20] INVALID FOR*03/29/2017 Cervical stenosis of spine [M48.02] INVALID FOR* Cervical spondylosis with myelopathy [M47.12] INVALID FOR*03/29/2017 Cervical myelopathy (HCC) [G95.9] INVALID FOR*03/29/2017 Claustrophobia [F40.240] INVALID FOR* Ptosis of eyelid, bilateral [H02.403] INVALID FOR*03/29/2017 More... Lumbar spondylosis [M47.816] INVALID FOR* More... Preop testing [Z01.818] INVALID FOR* More... Anaphylaxis [T78.2XXA] INVALID FOR* Essential hypertension [I10] INVALID FOR* Peroneal tendinitis, left [M76.72] INVALID FOR* Visit Notes: >> Liam Payne Ma [facility] Jul 27, 2017 2:15 PM Status: Signed Ralph M Adi is a 62 year old female who follows up today for 9 month post op. AMB ROOMING INTAKE FLOWSHEET DATA Risk Screening Do you have concerns about personal safety or safety in the home?: No Pain Pain Score: 2/10 Pain Location: Other: See Comment (arms) Description: Aching Duration Amount of Time: 9 Duration Units: Months (post up) Frequency: Intermittent Intervention: Medication Liam Payne Ma, Ma Encounter Status:Closed by FANTA COKER MD on 07/27/17 CNTHERAPY Observed: 07/26/2017 Status: COMPLETED Source: [place] 8:00 AM [facility] REPOSITORY OT/PT/Speech Visit (PTWS) RALPH JOSHI ([id number]) 1955 F Date Time Provider Department 07/26/17 8:00 AM TATY PHILIP (PT) PTWS Date Time Provider Department [place] 07/26/2017 8:00 AM [id number] PHILIP (PT) PTWS [facility] Reason for Visit: Physical Therapy [503] Primary Visit Diagnosis:Peroneal tendinitis, left [M76.72] Allergies As of Date: 07/26/2017 Noted Allergy Reaction AVOCADO 09/10/2014 10 - Anaphylaxis BANANA 09/10/2014 10 - Anaphylaxis CARBINOXAMINE 09/17/2012 10 - Anaphylaxis YOSELIN SEED 08/28/2013 10 - Anaphylaxis CIPROFLOXACIN 04/11/2014 10 - Anaphylaxis CODEINE 01/12/2012 10 - Anaphylaxis CONTRAST DYE 05/17/2013 10 - Anaphylaxis Comments: To MRI and CT FISH 09/07/2014 10 - Anaphylaxis HYCODAN (HYDROCODONE-HOMATROPINE) 09/08/2011 10 - Anaphylaxis Comments: Face and throat swelling LATEX 01/21/2014 10 - Anaphylaxis IMTIAZ-SYNEPHRINE (PHENYLEPHRINE HCL)09/04/2014 10 - Anaphylaxis Comments: 10% eye drop NICKEL 01/07/2014 2 - Rash 4 - Hives 10 - Anaphylaxis NSAIDS (NON-STEROIDAL ANTI-INFLAM*08/16/2010 14 - Other: See Comments Comments: Kidney function drops; reversible kidney damage. OXYCODONE 08/28/2013 10 - Anaphylaxis PERIACTIN (CYPROHEPTADINE) 09/17/2012 10 - Anaphylaxis PNEUMOCOCCAL VACCINE 10/31/2014 10 - Anaphylaxis SHELLFISH 09/07/2014 10 - Anaphylaxis ZANTAC (RANITIDINE) 09/17/2012 10 - Anaphylaxis ATIVAN (LORAZEPAM) 08/28/2013 14 - Other: See Comments Comments: hallucination BEEF CONTAINING PRODUCTS 09/10/2014 2 - Rash CORN 05/03/2011 14 - Other: See Comments Comments: Feels like an asthma attack. EGGS (EGG) 03/08/2011 2 - Rash 11 - Vomiting EKG LEADS (ADHESIVE) 10/22/2012 2 - Rash Comments: Localized,only under the leads INFLUENZA VIRUS VACCINES 10/22/2012 12 - Shortness of Breath LISINOPRIL 04/20/2004 3 - Cough MILK 03/08/2011 2 - Rash 11 - Vomiting MOMETASONE 04/05/2017 10 - Anaphylaxis Comments: Per Dr. Salas she tolerates formoterol (on Breo at home) but is allergic to mometasone. Okayed by him to update. XOLAIR (OMALIZUMAB) 04/19/2012 12 - Shortness of Breath environmental [Other] 06/26/2007 14 - Other: See Comments Comments: Nasal congestion, brings on an asthma attack. surgical tape [Other] 11/10/2009 2 - Rash 7 - Swelling Comments: Oral rash, swelling of eyes, asthma attacks; per pateint report. Date Reviewed: 07/14/2017 Reviewed by: Taty Corona Ma - Fully Assessed Prescriptions as of 07/26/2017 Sig: ATORVASTATIN 20 MG TABLET Take 1 tablet by mouth once d* LANSOPRAZOLE 30 MG CAPSULE,DE* TAKE 1 CAPSULE TWICE A DAY BUMETANIDE 0.5 MG TABLET Take 1 tablet by mouth once d* NITROGLYCERIN 0.4 MG SUBLINGU* DISSOLVE 1 TABLET UNDER THE T* ALBUTEROL SULFATE HFA 90 MCG/* Inhale 2 Puffs as instructed * FLUTICASONE 100 MCG-VILANTERO* Inhale 1 Inhalation as instru* LEVALBUTEROL 1.25 MG/3 ML BRENDA* Use 1 Ampule via nebulizer ev* FLUTICASONE 50 MCG/ACTUATION * 1-2 sprays each side qd BUDESONIDE 0.5 MG/2 ML SUSPEN* Use 1 Ampule via nebulizer tw* AZELASTINE 0.15 % (205.5 MCG)* Use 1 Wilberforce in each nostril t* COMPOUNDED PRESCRIPTION Nocturnal oximetry on room ai* CHOLESTYRAMINE (WITH SUGAR) 4* Take 1 scoop by mouth once da* PREGABALIN 150 MG CAPSULE Take 1 capsule by mouth twice* AMLODIPINE 10 MG TABLET Take 0.5 tablets by mouth onc* CYANOCOBALAMIN (VIT B-12) 1,0* Take 1 tablet by mouth once d* ATENOLOL 25 MG TABLET Take 1 tablet by mouth once d* EPINEPHRINE 0.3 MG/0.3 ML INJ* Inject 0.3 mL intramuscularly* PREDNISONE 10 MG TABLET Take 2.5 tablets by mouth onc* Patient taking differently: Take 25 mg by mouth once mary ellen* ERGOCALCIFEROL (VITAMIN D2) 5* Take 1 capsule by mouth once * Patient taking differently: Take 50,000 Units by mouth on* TURMERIC ROOT EXTRACT ORAL Take 1 tablet by mouth twice * CRISABOROLE 2 % TOPICAL OINTM* Apply to the hands twice daily COMPOUNDED PRESCRIPTION Please provide patient with n* CETIRIZINE 10 MG TABLET Take 10 mg by mouth once mary ellen* PIMECROLIMUS 1 % TOPICAL CREAM Apply twice daily to the hands SPIRONOLACTONE 50 MG TABLET Take 1 tablet by mouth twice * ONDANSETRON HCL 4 MG TABLET Take 1 tablet by mouth every * BENZONATATE 200 MG CAPSULE Take 200 mg by mouth three ti* LACTOBACILLUS RHAMNOSUS GG 10* Take 1 capsule by mouth twice* FAMOTIDINE 20 MG TABLET Take 1 tablet by mouth twice * Patient taking differently: Take 20 mg by mouth twice liam* DIPHENHYDRAMINE 50 MG CAPSULE Take 1 capsule by mouth every* AMOXICILLIN 250 MG CAPSULE Take 250 mg by mouth once liam* ZAFIRLUKAST 20 MG TABLET Take 1 tablet by mouth twice * DOXAZOSIN 2 MG TABLET Take 2 mg by mouth once daily. CYCLOSPORINE MODIFIED 50 MG C* Take 50 mg by mouth twice liam* ASCORBIC ACID (VITAMIN C) 500* Take 1 tablet by mouth once d* ALBUTEROL SULFATE 2.5 MG/3 ML* Use 3 mL via nebulizer one ti* Progress Notes: Taty Philip, PT 07/26/2017 9:46 AM Signed Episode Visit Count: 3 Therapist That Will Oversee The Plan Of Care: Taty Philip Start of Care Date: 07/21/17 Onset Date: 07/21/16 (about one year) Patient Identified by Name and Date of : Yes REHABILITATION AND SPORTS THERAPY PHYSICAL THERAPY TREATMENT NOTE ASSESSMENT: Ralph Joshi demonstrated improvements in decreased swelling L ankle. Good tolerance to activity today with no increase in pain level. The patient will continue to benefit from continued skilled physical therapy for AROM, US and manual therapy for pain control. PLAN FOR NEXT VISIT: Assess response to today's treatment, addition of low resistance strengthening exercises as tolerated. Continue with retrograde massage adn ultrasound for reduction of inflammation, edema and pain control. SUBJECTIVE: Yesterday when she walked a lot she had more pain later in the day. Today the swelling is down and pain is better. She did use a heating pad and feels that was helpful. Pain Score: 4/10 Pain Location: Ankle - Left Post Treatment Pain Score: 4/10 Pain Location: Ankle - Left OBJECTIVE MEASURES WITH LEVEL OF FUNCTION: Ankle Observations L Ankle Presents with: Swelling (2above mall.27, B mall.30.5, heel 33, midfoot 25, MTP 23.) TREATMENT: Therapeutic Exercise: 1: Step One stepper seat 11, resistance 2 x 5 minutes. Spoke with patient regarding progression of ex today. 2: AROM ankle pumps left 1 x 20 reps 3: AROM ankle left inversion/eversion 1 x 20 reps 4: ankle circles left CW and CCW x 20 each 5: Seated BAPS left PWB A/P, lateral and circles cw and ccw 2x10. 6: seated strap assist left calf stretch x 30 sec holds, 3 reps 7: Seated left ankle ABC's A-Z x 1. 8: Seated toe curls left 2x30 seconds. Skilled Intervention: Patient was educated in proper exercise technique and purpose for exercises. Reviewed and educated patient on additions/changes for home exercise program Skilled judgment was provided in selection of appropriate interventions. Correct performance of therapeutic exercises was facilitated with verbal and visual cuing. Patient education as noted. Manual Therapy: 1: Retrograde massage left ankle in elevation wedge bolster while supine lying x 10 minutes. Skilled Intervention: Manual skills to improve joint mobility, ROM, and decrease pain. Utilized anatomy knowledge of the therapist, and assessment of patient's response to intervention. Modalities: Ultrasound See flowsheet for details regarding treatment. Skilled Intervention: Proper administration and selection of modality based on clinical presentation, deficits, and needs. Patient response monitored throughout treatment. Billing: [facility]: Therapeutic Exercise ([id number]): 1:1 time: 22 minutes (1 unit: 8-22 mins) Manual Therapy (35021): 1:1 time: 10 minutes (1 unit: 8-22 mins) Modalities Ultrasound (27939) 1:1 time: 10 minutes1 unit: 8-22 mins Total time: 42 minutes Taty Philip PT PROGRESS Observed: 07/26/2017 Status: COMPLETED Source: [place] 7:57 AM [facility] REPOSIT[facility] HNO ID: [id number] Author: Taty (Pt) Cedrick Service: (none) Author Type: Physical Therapist Type: Progress Notes Filed: 07/26/2017 9:46 AM Note Text: Episode Visit Count: 3 Therapist That Will Oversee The Plan Of Care: Taty Philip Start of Care Date: 07/21/17 Onset Date: 07/21/16 (about one year) Patient Identified by Name and Date of : Yes REHABILITATION AND SPORTS THERAPY PHYSICAL THERAPY TREATMENT NOTE ASSESSMENT: Ralph Joshi demonstrated improvements in decreased swelling L ankle. Good tolerance to activity today with no increase in pain level. The patient will continue to benefit from continued skilled physical therapy for AROM, US and manual therapy for pain control. PLAN FOR NEXT VISIT: Assess response to today's treatment, addition of low resistance strengthening exercises as tolerated. Continue with retrograde massage adn ultrasound for reduction of inflammation, edema and pain control. SUBJECTIVE: Yesterday when she walked a lot she had more pain later in the day. Today the swelling is down and pain is better. She did use a heating pad and feels that was helpful. Pain Score: 4/10 Pain Location: Ankle - Left Post Treatment Pain Score: 4/10 Pain Location: Ankle - Left OBJECTIVE MEASURES WITH LEVEL OF FUNCTION: Ankle Observations L Ankle Presents with: Swelling (2above mall.27, B mall.30.5, heel 33, midfoot 25, MTP 23.) TREATMENT: Therapeutic Exercise: 1: Step One stepper seat 11, resistance 2 x 5 minutes. Spoke with patient regarding progression of ex today. 2: AROM ankle pumps left 1 x 20 reps 3: AROM ankle left inversion/eversion 1 x 20 reps 4: ankle circles left CW and CCW x 20 each 5: Seated BAPS left PWB A/P, lateral and circles cw and ccw 2x10. 6: seated strap assist left calf stretch x 30 sec holds, 3 reps 7: Seated left ankle ABC's A-Z x 1. 8: Seated toe curls left 2x30 seconds. Skilled Intervention: Patient was educated in proper exercise technique and purpose for exercises. Reviewed and educated patient on additions/changes for home exercise program Skilled judgment was provided in selection of appropriate interventions. Correct performance of therapeutic exercises was facilitated with verbal and visual cuing. Patient education as noted. Manual Therapy: 1: Retrograde massage left ankle in elevation wedge bolster while supine lying x 10 minutes. Skilled Intervention: Manual skills to improve joint mobility, ROM, and decrease pain. Utilized anatomy knowledge of the therapist, and assessment of patient's response to intervention. Modalities: Ultrasound See flowsheet for details regarding treatment. Skilled Intervention: Proper administration and selection of modality based on clinical presentation, deficits, and needs. Patient response monitored throughout treatment. Billing: [facility]: Therapeutic Exercise ([id number]): 1:1 time: 22 minutes (1 unit: 8-22 mins) Manual Therapy ([id number]): 1:1 time: 10 minutes (1 unit: 8-22 mins) Modalities Ultrasound ([id number]) 1:1 time: 10 minutes1 unit: 8-22 mins Total time: 42 minutes Taty Philip PT PROGRESS Observed: 07/24/2017 Status: COMPLETED Source: [place] 8:45 AM [facility] [place] REPOSITORY HNO ID: [id number] Author: Taty (Pt) Cedrick Service: (none) Author Type: Physical Therapist Type: Progress Notes Filed: 07/24/2017 10:36 AM Note Text: Episode Visit Count: 2 Therapist That Will Oversee The Plan Of Care: Taty Philip Start of Care Date: 07/21/17 Onset Date: 07/21/16 (about one year) Patient Identified by Name and Date of : Yes REHABILITATION AND SPORTS THERAPY PHYSICAL THERAPY TREATMENT NOTE ASSESSMENT: Ralph Joshi demonstrated improvements in performance of HEP. Subjective pain level slightly decreased from previous treatment. Ambulation on level surface with normal gait and no increase pain in weight bearing position. Patient felt looser and edema was slightly decreased at end of therapy today. The patient will continue to benefit from continued skilled physical therapy for AROM, US and manual therapy for pain control PLAN FOR NEXT VISIT: Monitor response to treatment today and continue with AROM, retrograde massage and US as needed. SUBJECTIVE: Patient reports no change with exercise from last visit. She reports doing the exercises 2x/day. She reports still having a burning sensation in left ankle. Pain Score: 5/10 Pain Location: Ankle - Left Description: Burning Frequency: Continuous Post Treatment Pain Score: 5/10 Pain Location: Ankle - Left Post Treatment Pain Description: Other: See comment (looser) OBJECTIVE MEASURES WITH LEVEL OF FUNCTION: Gait Assessment Gait Observation: Normal gait with walking on level surface today. TREATMENT: Therapeutic Exercise: 1: AROM ankle pumps left 1 x 20 reps 2: AROM ankle left inversion/eversion 1 x 20 reps 3: ankle circles left CW and CCW x 20 each 4: seated strap assist left calf stretch x 30 sec holds, 3 reps 5: Step One stepper seat 11, resistance 2 x 5 minutes. Spoke with patient regarding progression of ex today. 6: Seated left ankle ABC's A-Z x 1. 7: Seated BAPS left PWB A/P, lateral and circles cw and ccw 2x10. 8: *Seated toe curls left 2x30 seconds. Skilled Intervention: Patient was educated in proper exercise technique and purpose for exercises. Reviewed and educated patient on additions/changes for home exercise program as above (*) Skilled judgment was provided in selection of appropriate interventions. Provided written instruction for home exercise program to facilitate proper performance and compliance. Correct performance of therapeutic exercises was facilitated with verbal and visual cuing. Manual Therapy: 1: Retrograde massage left ankle in elevation wedge bolster while supine lying x 10 minutes. Skilled Intervention: Manual skills to improve joint mobility, ROM, and decrease pain. Utilized anatomy knowledge of the therapist, and assessment of patient's response to intervention. Modalities: Ultrasound See flowsheet for details regarding treatment. Skilled Intervention: Proper administration and selection of modality based on clinical presentation, deficits, and needs. Patient response monitored throughout treatment. Billing: [facility]: Therapeutic Exercise ([id number]): 1:1 time: 22 minutes (1 unit: 8-22 mins) Manual Therapy ([id number]): 1:1 time: 10 minutes (1 unit: 8-22 mins) Modalities Ultrasound ([id number]) 1:1 time: 10 minutes1 unit: 8-22 mins Total time: 42 minutes VIK Glez PT CNTHERAPY Observed: 07/24/2017 Status: COMPLETED Source: [place] 7:45 AM [facility] REPOSITORY OT/PT/Speech Visit (PTWS) RALPH JOSHI ([id number]) 1955 F Date Time Provider Department 07/24/17 7:45 AM MICHAELA BLAKELY ([employer]) PTWS Date Time Provider Department [place] 07/24/2017 7:45 AM [id number], NANCY ([employer]) PTWS [facility] Reason for Visit: Physical Therapy [503] Primary Visit Diagnosis:Peroneal tendinitis, left [M76.72] Allergies As of Date: 07/24/2017 Noted Allergy Reaction AVOCADO 09/10/2014 10 - Anaphylaxis BANANA 09/10/2014 10 - Anaphylaxis CARBINOXAMINE 09/17/2012 10 - Anaphylaxis YOSELIN SEED 08/28/2013 10 - Anaphylaxis CIPROFLOXACIN 04/11/2014 10 - Anaphylaxis CODEINE 01/12/2012 10 - Anaphylaxis CONTRAST DYE 05/17/2013 10 - Anaphylaxis Comments: To MRI and CT FISH 09/07/2014 10 - Anaphylaxis HYCODAN (HYDROCODONE-HOMATROPINE) 09/08/2011 10 - Anaphylaxis Comments: Face and throat swelling LATEX 01/21/2014 10 - Anaphylaxis IMTIAZ-SYNEPHRINE (PHENYLEPHRINE HCL)09/04/2014 10 - Anaphylaxis Comments: 10% eye drop NICKEL 01/07/2014 2 - Rash 4 - Hives 10 - Anaphylaxis NSAIDS (NON-STEROIDAL ANTI-INFLAM*08/16/2010 14 - Other: See Comments Comments: Kidney function drops; reversible kidney damage. OXYCODONE 08/28/2013 10 - Anaphylaxis PERIACTIN (CYPROHEPTADINE) 09/17/2012 10 - Anaphylaxis PNEUMOCOCCAL VACCINE 10/31/2014 10 - Anaphylaxis SHELLFISH 09/07/2014 10 - Anaphylaxis ZANTAC (RANITIDINE) 09/17/2012 10 - Anaphylaxis ATIVAN (LORAZEPAM) 08/28/2013 14 - Other: See Comments Comments: hallucination BEEF CONTAINING PRODUCTS 09/10/2014 2 - Rash CORN 05/03/2011 14 - Other: See Comments Comments: Feels like an asthma attack. EGGS (EGG) 03/08/2011 2 - Rash 11 - Vomiting EKG LEADS (ADHESIVE) 10/22/2012 2 - Rash Comments: Localized,only under the leads INFLUENZA VIRUS VACCINES 10/22/2012 12 - Shortness of Breath LISINOPRIL 04/20/2004 3 - Cough MILK 03/08/2011 2 - Rash 11 - Vomiting MOMETASONE 04/05/2017 10 - Anaphylaxis Comments: Per Dr. Salas she tolerates formoterol (on Breo at home) but is allergic to mometasone. Okayed by him to update. XOLAIR (OMALIZUMAB) 04/19/2012 12 - Shortness of Breath environmental [Other] 06/26/2007 14 - Other: See Comments Comments: Nasal congestion, brings on an asthma attack. surgical tape [Other] 11/10/2009 2 - Rash 7 - Swelling Comments: Oral rash, swelling of eyes, asthma attacks; per pateint report. Date Reviewed: 07/14/2017 Reviewed by: Taty Corona Ma - Fully Assessed Prescriptions as of 07/24/2017 Sig: ATORVASTATIN 20 MG TABLET Take 1 tablet by mouth once d* LANSOPRAZOLE 30 MG CAPSULE,DE* TAKE 1 CAPSULE TWICE A DAY BUMETANIDE 0.5 MG TABLET Take 1 tablet by mouth once d* NITROGLYCERIN 0.4 MG SUBLINGU* DISSOLVE 1 TABLET UNDER THE T* ALBUTEROL SULFATE HFA 90 MCG/* Inhale 2 Puffs as instructed * FLUTICASONE 100 MCG-VILANTERO* Inhale 1 Inhalation as instru* LEVALBUTEROL 1.25 MG/3 ML BRENDA* Use 1 Ampule via nebulizer ev* FLUTICASONE 50 MCG/ACTUATION * 1-2 sprays each side qd BUDESONIDE 0.5 MG/2 ML SUSPEN* Use 1 Ampule via nebulizer tw* AZELASTINE 0.15 % (205.5 MCG)* Use 1 Wilberforce in each nostril t* COMPOUNDED PRESCRIPTION Nocturnal oximetry on room ai* CHOLESTYRAMINE (WITH SUGAR) 4* Take 1 scoop by mouth once da* PREGABALIN 150 MG CAPSULE Take 1 capsule by mouth twice* AMLODIPINE 10 MG TABLET Take 0.5 tablets by mouth onc* CYANOCOBALAMIN (VIT B-12) 1,0* Take 1 tablet by mouth once d* ATENOLOL 25 MG TABLET Take 1 tablet by mouth once d* EPINEPHRINE 0.3 MG/0.3 ML INJ* Inject 0.3 mL intramuscularly* PREDNISONE 10 MG TABLET Take 2.5 tablets by mouth onc* Patient taking differently: Take 25 mg by mouth once mary ellen* ERGOCALCIFEROL (VITAMIN D2) 5* Take 1 capsule by mouth once * Patient taking differently: Take 50,000 Units by mouth on* TURMERIC ROOT EXTRACT ORAL Take 1 tablet by mouth twice * CRISABOROLE 2 % TOPICAL OINTM* Apply to the hands twice daily COMPOUNDED PRESCRIPTION Please provide patient with n* CETIRIZINE 10 MG TABLET Take 10 mg by mouth once mary ellen* PIMECROLIMUS 1 % TOPICAL CREAM Apply twice daily to the hands SPIRONOLACTONE 50 MG TABLET Take 1 tablet by mouth twice * ONDANSETRON HCL 4 MG TABLET Take 1 tablet by mouth every * BENZONATATE 200 MG CAPSULE Take 200 mg by mouth three ti* LACTOBACILLUS RHAMNOSUS GG 10* Take 1 capsule by mouth twice* FAMOTIDINE 20 MG TABLET Take 1 tablet by mouth twice * Patient taking differently: Take 20 mg by mouth twice liam* DIPHENHYDRAMINE 50 MG CAPSULE Take 1 capsule by mouth every* AMOXICILLIN 250 MG CAPSULE Take 250 mg by mouth once liam* ZAFIRLUKAST 20 MG TABLET Take 1 tablet by mouth twice * DOXAZOSIN 2 MG TABLET Take 2 mg by mouth once daily. CYCLOSPORINE MODIFIED 50 MG C* Take 50 mg by mouth twice liam* ASCORBIC ACID (VITAMIN C) 500* Take 1 tablet by mouth once d* ALBUTEROL SULFATE 2.5 MG/3 ML* Use 3 mL via nebulizer one ti* Progress Notes: Taty Philip, PT 07/24/2017 10:36 AM Signed Episode Visit Count: 2 Therapist That Will Oversee The Plan Of Care: Taty Philip Start of Care Date: 07/21/17 Onset Date: 07/21/16 (about one year) Patient Identified by Name and Date of : Yes REHABILITATION AND SPORTS THERAPY PHYSICAL THERAPY TREATMENT NOTE ASSESSMENT: Ralph Joshi demonstrated improvements in performance of HEP. Subjective pain level slightly decreased from previous treatment. Ambulation on level surface with normal gait and no increase pain in weight bearing position. Patient felt looser and edema was slightly decreased at end of therapy today. The patient will continue to benefit from continued skilled physical therapy for AROM, US and manual therapy for pain control PLAN FOR NEXT VISIT: Monitor response to treatment today and continue with AROM, retrograde massage and US as needed. SUBJECTIVE: Patient reports no change with exercise from last visit. She reports doing the exercises 2x/day. She reports still having a burning sensation in left ankle. Pain Score: 5/10 Pain Location: Ankle - Left Description: Burning Frequency: Continuous Post Treatment Pain Score: 5/10 Pain Location: Ankle - Left Post Treatment Pain Description: Other: See comment (looser) OBJECTIVE MEASURES WITH LEVEL OF FUNCTION: Gait Assessment Gait Observation: Normal gait with walking on level surface today. TREATMENT: Therapeutic Exercise: 1: AROM ankle pumps left 1 x 20 reps 2: AROM ankle left inversion/eversion 1 x 20 reps 3: ankle circles left CW and CCW x 20 each 4: seated strap assist left calf stretch x 30 sec holds, 3 reps 5: Step One stepper seat 11, resistance 2 x 5 minutes. Spoke with patient regarding progression of ex today. 6: Seated left ankle ABC's A-Z x 1. 7: Seated BAPS left PWB A/P, lateral and circles cw and ccw 2x10. 8: *Seated toe curls left 2x30 seconds. Skilled Intervention: Patient was educated in proper exercise technique and purpose for exercises. Reviewed and educated patient on additions/changes for home exercise program as above (*) Skilled judgment was provided in selection of appropriate interventions. Provided written instruction for home exercise program to facilitate proper performance and compliance. Correct performance of therapeutic exercises was facilitated with verbal and visual cuing. Manual Therapy: 1: Retrograde massage left ankle in elevation wedge bolster while supine lying x 10 minutes. Skilled Intervention: Manual skills to improve joint mobility, ROM, and decrease pain. Utilized anatomy knowledge of the therapist, and assessment of patient's response to intervention. Modalities: Ultrasound See flowsheet for details regarding treatment. Skilled Intervention: Proper administration and selection of modality based on clinical presentation, deficits, and needs. Patient response monitored throughout treatment. Billing: [facility]: Therapeutic Exercise ([id number]): 1:1 time: 22 minutes (1 unit: 8-22 mins) Manual Therapy ([id number]): 1:1 time: 10 minutes (1 unit: 8-22 mins) Modalities Ultrasound ([id number]) 1:1 time: 10 minutes1 unit: 8-22 mins Total time: 42 minutes Michaela Blakely, PT-Yoli Philip PT Previous Version Follow-up and Disposition History Recorded PROGRESS Observed: 07/21/2017 Status: COMPLETED Source: [place] 11:08 AM [facility] REPOSITORY HNO ID: [id number] Author: Taty (Pt) Cedrick Service: (none) Author Type: Physical Therapist Type: Progress Notes Filed: 07/21/2017 12:53 PM Note Text: Episode Visit Count: 1 Therapist That Will Oversee The Plan Of Care: Taty Philip Start of Care Date: 07/21/17 Onset Date: 07/21/16 (about one year) REHABILITATION AND SPORTS THERAPY PHYSICAL THERAPY EVALUATION PLAN OF CARE: Assessment: Ralph Joshi presents with the diagnosis of Peroneal tendonitis. She presents with impairments of L ankle edema, weakness and decreased ROM affecting her daily function. She may benefit from skilled therapy services to improve L ankle AROM, strength, edema and pain control. Prognosis: Good Good due to: current objective clinical presentation;within-session changes at evaluation;good support system/ coping skills Goals for Episode of Care: created on 07/21/17 through 09/20/17 [place] in home exercise program. Patient will decrease pain rating by 2 points to meet minimal clinical important difference for numeric pain rating scale. Patient will increase active ROM of L ankle to DF 8-10 deg, inv 30-35 deg and ever 15 deg. to allow pt to improved performance of ADLs. Patient will increase strength of L ankle to 4+/5 to allow for return to prior functional status and normalized gait mechanics. Perform daily and community ambulation, prolonged standing and stair negotiation with decreased report of symptoms/pain in 4-8 weeks. Demonstrate improvement on functional score: Patient will increase his/her score on the Lower Extremity Functional Scale by at least 9 points to indicate a Minimal Clinical Important Difference. Planned Interventions, Frequency, and Duration: Current Frequency: 2x/week Duration: 8 weeks Total Number of Visits Planned: 16 Patient to be see for Planned Treatment Interventions: Therapeutic exercise;Neuromuscular re-education;Manual therapy;Patient/Family/Caregiver Education;Modalities Modalities: Ultrasound PLAN FOR NEXT VISIT: Assess symptom response to initial treatment and HEP. Review HEP to insure correct performance. Progress exercises of ankle strengthening, stretches and propirioception. May add manual techniques to promote increased lymphodynamics and edema reduction. Patient demonstrates good understanding of plan of care and treatment. The above goals and plan of care were discussed and agreed upon by patient/family. SUBJECTIVE: Ralph Joshi is a 62 year old female seen today for Pt reports insidious onset of L lateral ankle pain (burning, sharp) that is constant with varied intensity and was progressively worsening. Does not seem to be changed with walking. Functional Limitations: standing;walking in the community;stair negotiation (swelling prevents wearing certain shoes, pain limits activit) Prior Level of Function: Independent without limitations Patient Goals: Eliminate the pain. Intake Information: Prescription present Previous Treatment: (brace (can't wear with shoes), orthotics- recently updated) Falls Interview: (Pt states sometimes her knee gives out, but no falls.) Pain Score: 7/10 Pain Location: Ankle - Left;Other: See Comment Description: Burning (distal length of peroneal tendon region) Frequency: Continuous Post Treatment Pain Score: No Change OBJECTIVE MEASURES WITH LEVEL OF FUNCTION: Ankle Observations R Ankle Presents with: (2above mall. 25, B mall. 29, heel 32, midfoot 24, MTP 23.5) L Ankle Presents with: Swelling (2above mall.28, B mall.31.5, heel34, midfoot 24.5, MTP 23.5) L Ankle Palpation Tenderness: Peroneal tendon (posterior to lateral malleolus and superior into distal calf) Gait Assessment Gait Observation: Pt wearing tennis shoes and no significant gait abnormalities noted. LE AROM R Ankle Dorsiflexion: 8 Degrees R Ankle Plantar Flexion: 60 Degrees R Ankle Inversion: 34 R Ankle Eversion: 15 L Ankle Dorsiflexion: -5 Degrees L Ankle Plantar Flexion: 50 Degrees L Ankle Inversion: 30 L Ankle Eversion: 10 LE Strength R Ankle Dorsiflexion: 4+/5 R Ankle Plantar Flexion: 4/5 R Ankle Inversion: 4-/5 R Ankle Eversion: 4-/5 L Ankle Dorsiflexion: 4-/5 L Ankle Plantar Flexion: 4-/5 L Ankle Inversion: 4-/5 L Ankle Eversion: 4-/5 (with pain) Education: Education Learning Preferences: Demonstration;Explanation Barriers: None Learning/educational needs: Home exercise program;Plan of Care Education Provided: Yes, see treatment interventions for education provided Education Provided To: Patient Education Mode/Type: Demonstration;Explanation/Discussion;Literature/Printed Materials;Performance Response to Education/Teach Back: States/Identifies;Return Demonstration TREATMENT: Evaluation Therapeutic Exercise: 1: *AROM ankle pumps 1 x 20 reps 2: *AROM ankle inversion/eversion 1 x 20 reps 3: *ankle circles CW and CCW x 10 each 4: *seated towel calf stretch x 30 sec holds, 3 reps Skilled Intervention: Patient was educated in proper exercise technique and purpose for exercises. Skilled judgment was provided in selection of appropriate interventions. Provided written instruction for home exercise program to facilitate proper performance and compliance. Correct performance of therapeutic exercises was facilitated with verbal and visual cuing. Patient education as noted. Self-Long-Term Management: 1: Educated pt regarding shoe recommendations and continued use of the brace she has been using at home. Educated pt in home activity management and weight bearing activity versus time spent off of feet and elevating L LE to assist with edema reduction. Skilled Intervention: Skilled judgment in the selection of proper modification for activity of daily living/home management based on clinical presentation, deficits, and needs. Educated the patient regarding recommendations and provided written instruction to facilitate compliance. Reviewed patient specific diagnosis in relation to activities of daily living/home management. Billing: [facility]: Evaluation - Low Complexity ([id number]) Therapeutic Exercise ([id number]): 1:1 time: 15 minutes (1 unit: 8-22 mins) Educ Home Mgmt ([id number]): 1:1 time: 13 minutes (1 unit: 8-22 mins) Total time: 46 minutes Taty Philip PT CNTHERAPY Observed: 07/21/2017 Status: COMPLETED Source: [place] 11:00 AM [facility] REPOSITORY OT/PT/Speech Visit (PTWS) RALPH JOSHI ([id number]) 1955 F Date Time Provider Department 07/21/17 11:00 AM TATY PHILIPPT) PTWS Date Time Provider Department Center 07/21/2017 11:00 AM [id number] PHILIPPT) PTWS [facility] Reason for Visit: PT Eval [747] Primary Visit Diagnosis:Peroneal tendinitis, left [M76.72] Allergies As of Date: 07/21/2017 Noted Allergy Reaction AVOCADO 09/10/2014 10 - Anaphylaxis BANANA 09/10/2014 10 - Anaphylaxis CARBINOXAMINE 09/17/2012 10 - Anaphylaxis YOSELIN SEED 08/28/2013 10 - Anaphylaxis CIPROFLOXACIN 04/11/2014 10 - Anaphylaxis CODEINE 01/12/2012 10 - Anaphylaxis CONTRAST DYE 05/17/2013 10 - Anaphylaxis Comments: To MRI and CT FISH 09/07/2014 10 - Anaphylaxis HYCODAN (HYDROCODONE-HOMATROPINE) 09/08/2011 10 - Anaphylaxis Comments: Face and throat swelling LATEX 01/21/2014 10 - Anaphylaxis IMTIAZ-SYNEPHRINE (PHENYLEPHRINE HCL)09/04/2014 10 - Anaphylaxis Comments: 10% eye drop NICKEL 01/07/2014 2 - Rash 4 - Hives 10 - Anaphylaxis NSAIDS (NON-STEROIDAL ANTI-INFLAM*08/16/2010 14 - Other: See Comments Comments: Kidney function drops; reversible kidney damage. OXYCODONE 08/28/2013 10 - Anaphylaxis PERIACTIN (CYPROHEPTADINE) 09/17/2012 10 - Anaphylaxis PNEUMOCOCCAL VACCINE 10/31/2014 10 - Anaphylaxis SHELLFISH 09/07/2014 10 - Anaphylaxis ZANTAC (RANITIDINE) 09/17/2012 10 - Anaphylaxis ATIVAN (LORAZEPAM) 08/28/2013 14 - Other: See Comments Comments: hallucination BEEF CONTAINING PRODUCTS 09/10/2014 2 - Rash CORN 05/03/2011 14 - Other: See Comments Comments: Feels like an asthma attack. EGGS (EGG) 03/08/2011 2 - Rash 11 - Vomiting EKG LEADS (ADHESIVE) 10/22/2012 2 - Rash Comments: Localized,only under the leads INFLUENZA VIRUS VACCINES 10/22/2012 12 - Shortness of Breath LISINOPRIL 04/20/2004 3 - Cough MILK 03/08/2011 2 - Rash 11 - Vomiting MOMETASONE 04/05/2017 10 - Anaphylaxis Comments: Per Dr. Salas she tolerates formoterol (on Breo at home) but is allergic to mometasone. Okayed by him to update. XOLAIR (OMALIZUMAB) 04/19/2012 12 - Shortness of Breath environmental [Other] 06/26/2007 14 - Other: See Comments Comments: Nasal congestion, brings on an asthma attack. surgical tape [Other] 11/10/2009 2 - Rash 7 - Swelling Comments: Oral rash, swelling of eyes, asthma attacks; per pateint report. Date Reviewed: 07/14/2017 Reviewed by: Taty Corona Ma - Fully Assessed Prescriptions as of 07/21/2017 Sig: ATORVASTATIN 20 MG TABLET Take 1 tablet by mouth once d* LANSOPRAZOLE 30 MG CAPSULE,DE* TAKE 1 CAPSULE TWICE A DAY BUMETANIDE 0.5 MG TABLET Take 1 tablet by mouth once d* NITROGLYCERIN 0.4 MG SUBLINGU* DISSOLVE 1 TABLET UNDER THE T* ALBUTEROL SULFATE HFA 90 MCG/* Inhale 2 Puffs as instructed * FLUTICASONE 100 MCG-VILANTERO* Inhale 1 Inhalation as instru* LEVALBUTEROL 1.25 MG/3 ML BRENDA* Use 1 Ampule via nebulizer ev* FLUTICASONE 50 MCG/ACTUATION * 1-2 sprays each side qd BUDESONIDE 0.5 MG/2 ML SUSPEN* Use 1 Ampule via nebulizer tw* AZELASTINE 0.15 % (205.5 MCG)* Use 1 Wilberforce in each nostril t* COMPOUNDED PRESCRIPTION Nocturnal oximetry on room ai* CHOLESTYRAMINE (WITH SUGAR) 4* Take 1 scoop by mouth once da* PREGABALIN 150 MG CAPSULE Take 1 capsule by mouth twice* AMLODIPINE 10 MG TABLET Take 0.5 tablets by mouth onc* CYANOCOBALAMIN (VIT B-12) 1,0* Take 1 tablet by mouth once d* ATENOLOL 25 MG TABLET Take 1 tablet by mouth once d* EPINEPHRINE 0.3 MG/0.3 ML INJ* Inject 0.3 mL intramuscularly* PREDNISONE 10 MG TABLET Take 2.5 tablets by mouth onc* Patient taking differently: Take 25 mg by mouth once mary ellen* ERGOCALCIFEROL (VITAMIN D2) 5* Take 1 capsule by mouth once * Patient taking differently: Take 50,000 Units by mouth on* TURMERIC ROOT EXTRACT ORAL Take 1 tablet by mouth twice * CRISABOROLE 2 % TOPICAL OINTM* Apply to the hands twice daily COMPOUNDED PRESCRIPTION Please provide patient with n* CETIRIZINE 10 MG TABLET Take 10 mg by mouth once mary ellen* PIMECROLIMUS 1 % TOPICAL CREAM Apply twice daily to the hands SPIRONOLACTONE 50 MG TABLET Take 1 tablet by mouth twice * ONDANSETRON HCL 4 MG TABLET Take 1 tablet by mouth every * BENZONATATE 200 MG CAPSULE Take 200 mg by mouth three ti* LACTOBACILLUS RHAMNOSUS GG 10* Take 1 capsule by mouth twice* FAMOTIDINE 20 MG TABLET Take 1 tablet by mouth twice * Patient taking differently: Take 20 mg by mouth twice liam* DIPHENHYDRAMINE 50 MG CAPSULE Take 1 capsule by mouth every* AMOXICILLIN 250 MG CAPSULE Take 250 mg by mouth once liam* ZAFIRLUKAST 20 MG TABLET Take 1 tablet by mouth twice * DOXAZOSIN 2 MG TABLET Take 2 mg by mouth once daily. CYCLOSPORINE MODIFIED 50 MG C* Take 50 mg by mouth twice liam* ASCORBIC ACID (VITAMIN C) 500* Take 1 tablet by mouth once d* ALBUTEROL SULFATE 2.5 MG/3 ML* Use 3 mL via nebulizer one ti* Progress Notes: Taty Philip, PT 07/21/2017 12:53 PM Signed Episode Visit Count: 1 Therapist That Will Oversee The Plan Of Care: Taty Philip Start of Care Date: 07/21/17 Onset Date: 07/21/16 (about one year) REHABILITATION AND SPORTS THERAPY PHYSICAL THERAPY EVALUATION PLAN OF CARE: Assessment: Ralph Joshi presents with the diagnosis of Peroneal tendonitis. She presents with impairments of L ankle edema, weakness and decreased ROM affecting her daily function. She may benefit from skilled therapy services to improve L ankle AROM, strength, edema and pain control. Prognosis: Good Good due to: current objective clinical presentation;within- session changes at evaluation;good support system/ coping skills Goals for Episode of Care: created on 07/21/17 through 09/20/17 [place] in home exercise program. Patient will decrease pain rating by 2 points to meet minimal clinical important difference for numeric pain rating scale. Patient will increase active ROM of L ankle to DF 8-10 deg, inv 30-35 deg and ever 15 deg. to allow pt to improved performance of ADLs. Patient will increase strength of L ankle to 4+/5 to allow for return to prior functional status and normalized gait mechanics. Perform daily and community ambulation, prolonged standing and stair negotiation with decreased report of symptoms/pain in 4-8 weeks. Demonstrate improvement on functional score: Patient will increase his/her score on the Lower Extremity Functional Scale by at least 9 points to indicate a Minimal Clinical Important Difference. Planned Interventions, Frequency, and Duration: Current Frequency: 2x/week Duration: 8 weeks Total Number of Visits Planned: 16 Patient to be see for Planned Treatment Interventions: Therapeutic exercise;Neuromuscular re-education;Manual therapy;Patient/Family/Caregiver Education;Modalities Modalities: Ultrasound PLAN FOR NEXT VISIT: Assess symptom response to initial treatment and HEP. Review HEP to insure correct performance. Progress exercises of ankle strengthening, stretches and propirioception. May add manual techniques to promote increased lymphodynamics and edema reduction. Patient demonstrates good understanding of plan of care and treatment. The above goals and plan of care were discussed and agreed upon by patient/family. SUBJECTIVE: Ralph Joshi is a 62 year old female seen today for Pt reports insidious onset of L lateral ankle pain (burning, sharp) that is constant with varied intensity and was progressively worsening. Does not seem to be changed with walking. Functional Limitations: standing;walking in the community;stair negotiation (swelling prevents wearing certain shoes, pain limits activit) Prior Level of Function: Independent without limitations Patient Goals: Eliminate the pain. Intake Information: Prescription present Previous Treatment: (brace (can't wear with shoes), orthotics- recently updated) Falls Interview: (Pt states sometimes her knee gives out, but no falls.) Pain Score: 7/10 Pain Location: Ankle - Left;Other: See Comment Description: Burning (distal length of peroneal tendon region) Frequency: Continuous Post Treatment Pain Score: No Change OBJECTIVE MEASURES WITH LEVEL OF FUNCTION: Ankle Observations R Ankle Presents with: (2above mall. 25, B mall. 29, heel 32, midfoot 24, MTP 23.5) L Ankle Presents with: Swelling (2above mall.28, B mall.31.5, heel34, midfoot 24.5, MTP 23.5) L Ankle Palpation Tenderness: Peroneal tendon (posterior to lateral malleolus and superior into distal calf) Gait Assessment Gait Observation: Pt wearing tennis shoes and no significant gait abnormalities noted. LE AROM R Ankle Dorsiflexion: 8 Degrees R Ankle Plantar Flexion: 60 Degrees R Ankle Inversion: 34 R Ankle Eversion: 15 L Ankle Dorsiflexion: -5 Degrees L Ankle Plantar Flexion: 50 Degrees L Ankle Inversion: 30 L Ankle Eversion: 10 LE Strength R Ankle Dorsiflexion: 4+/5 R Ankle Plantar Flexion: 4/5 R Ankle Inversion: 4-/5 R Ankle Eversion: 4-/5 L Ankle Dorsiflexion: 4-/5 L Ankle Plantar Flexion: 4-/5 L Ankle Inversion: 4-/5 L Ankle Eversion: 4-/5 (with pain) Education: Education Learning Preferences: Demonstration;Explanation Barriers: None Learning/educational needs: Home exercise program;Plan of Care Education Provided: Yes, see treatment interventions for education provided Education Provided To: Patient Education Mode/Type: Demonstration;Explanation/Discussion;Literature/Printed Materials;Performance Response to Education/Teach Back: States/Identifies;Return Demonstration TREATMENT: Evaluation Therapeutic Exercise: 1: *AROM ankle pumps 1 x 20 reps 2: *AROM ankle inversion/eversion 1 x 20 reps 3: *ankle circles CW and CCW x 10 each 4: *seated towel calf stretch x 30 sec holds, 3 reps Skilled Intervention: Patient was educated in proper exercise technique and purpose for exercises. Skilled judgment was provided in selection of appropriate interventions. Provided written instruction for home exercise program to facilitate proper performance and compliance. Correct performance of therapeutic exercises was facilitated with verbal and visual cuing. Patient education as noted. Self-Long-Term Management: 1: Educated pt regarding shoe recommendations and continued use of the brace she has been using at home. Educated pt in home activity management and weight bearing activity versus time spent off of feet and elevating L LE to assist with edema reduction. Skilled Intervention: Skilled judgment in the selection of proper modification for activity of daily living/home management based on clinical presentation, deficits, and needs. Educated the patient regarding recommendations and provided written instruction to facilitate compliance. Reviewed patient specific diagnosis in relation to activities of daily living/home management. Billing: [facility]: Evaluation - Low Complexity (11374) Therapeutic Exercise (03867): 1:1 time: 15 minutes (1 unit: 8-22 mins) Educ Home Mgmt (63349): 1:1 time: 13 minutes (1 unit: 8-22 mins) Total time: 46 minutes Taty Philip PT CBC W/DIFF, AUTOMATED Collected: 07/19/2017 Status: F Source: [place] 11:29 AM [facility] REPOSITORY TYPE CODE TESTS RESULT OUT OF RANGE REFERENCE UNITS LAB L100.1000 4.4-11.0 K/mm3 Normal WBC 6.2 LAB L100.1200 4.2-5.4 M/mm3 Normal RBC 5.08 LAB L100.1300 12.0-15.0 g/dl Normal HGB 14.9 LAB L100.1400 37-47 % Normal HCT 45.2 LAB L100.1500 81-99 fL Normal MCV 89.0 LAB L100.1600 27.0-32.0 pg Normal MCH 29.3 LAB L100.1700 32-36 g/gl Normal MCHC 33.0 LAB L100.1810 11.6-14.6 % Normal RDW CV 14.1 LAB L100.1820 35.1-43.9 fl High RDW SD 45.2 LAB L100.1900 150-450 K/mm3 Normal PLT 236 LAB L100.2000 6.2-12.0 fl Normal MPV 10.5 LAB L100.2100 47-70 % Normal NEUT% 70.0 LAB L100.2200 19-41 % Low LY% 17.5 LAB L100.2300 0-10 % Normal MONO% 9.1 LAB L100.2400 0-5 % Normal EO% 2.1 LAB L100.2500 0-1 % Normal BASO% 0.8 LAB L100.2550 0.0-0.9 % Normal IM GRAN % 0.500 Result Comment: IG% - Immature Granulocytes (promyelocytes, myelocytes and metamyelocytes) > 1% indicates that a LEFT SHIFT is Present. LAB L100.2620 2.0-7.7 X10 3/uL Normal Absolute Neut 4.3 LAB L100.2720 0.83-4.51 X10 3/ul Normal Absolute Lymph 1.08 Performed By: #### L100.0100 #### [facility] [place], [address] BUN Collected: 07/19/2017 Status: F Source: [place] 11:29 AM [facility] REPOSITORY TYPE CODE TESTS RESULT OUT OF RANGE REFERENCE UNITS LAB L501.1000 7-18 mg/dL Normal BUN 18 Performed By: #### L501.1000, L501.1105, L501.1800, L501.4100, L501.4405 #### [facility] [address] [place], [address] SERUM CREATININE AND Collected: 07/19/2017 Status: F Source: [place] GFR 11:29 AM [facility] REPOSITORY TYPE CODE TESTS RESULT OUT OF RANGE REFERENCE UNITS LAB L501.1100 0.55-1.02 mg/dL High 1.16 CREAT,SERUM Result Comment: The validity of the calculated GFR AND GFRAA in patients over 70 years has not been determined. Clinical correlation is essential. LAB L501.1110 >60 mL/min Low EST GFR 50 Result Comment: Non- GFR Calc LAB L501.1115 >60 mL/min Normal EST GFR - AA 61 Result Comment: GFR Calc Performed By: #### L501.1000, L501.1105, L501.1800, L501.4100, L501.4405 #### [facility] [address] [place], [address] ALBUMIN, SERUM Collected: 07/19/2017 Status: F Source: [place] 11:29 AM [facility] REPOSITORY TYPE CODE TESTS RESULT OUT OF RANGE REFERENCE UNITS LAB L501.1800 3.2-5.0 g/dL Normal ALB 3.8 Performed By: #### L501.1000, L501.1105, L501.1800, L501.4100, L501.4405 #### [facility] [address] [place], [address] AST(SGOT) Collected: 07/19/2017 Status: F Source: [place] 11:29 AM [facility] REPOSITORY TYPE CODE TESTS RESULT OUT OF RANGE REFERENCE UNITS LAB L501.4100 15-37 U/L Normal AST 19 Performed By: #### L501.1000, L501.1105, L501.1800, L501.4100, L501.4405 #### [facility] [address] [place], [address] ALANINE AMINOTRANSFERAS Collected: 07/19/2017 Status: F Source: [place] (SGPT) 11:29 AM [facility] REPOSITORY TYPE CODE TESTS RESULT OUT OF RANGE REFERENCE UNITS LAB L501.4405 13-56 U/L Normal ALT 41 Result Comment: Please note revised ALT reference range effective 2017. Performed By: #### L501.1000, L501.1105, L501.1800, L501.4100, L501.4405 #### [facility] [address] [place], [address] URINALYSIS, COMPLETE Collected: 07/19/2017 Status: F Source: [place] 11:29 AM [facility] REPOSITORY Order Comment: How was Urine Obtained? CLEAN CATCH TYPE CODE TESTS RESULT OUT OF RANGE REFERENCE UNITS LAB L400.3000 Yellow COLOR Normal Yellow LAB L400.3050 Clear Normal CLARITY Clear LAB L400.3200 Normal mg/dl Normal GLUCOSE, UR Normal LAB L400.3300 Negative mg/dL Normal BILIRUBIN URINE Negative LAB L400.3400 Negative mg/dl Normal KETONE UR Negative LAB L400.3465 1.002-1.030 Normal SP.GR. DIPSTX 1.010 LAB L400.3550 5.0 - 8.0 pH UR Normal 6.5 LAB L400.3600 Negative mg/dl High PROT 30 DIPSTX LAB L400.3700 Normal mg/dl Normal UROBILI Normal LAB L400.3750 Negative Normal NITRITE UR Negative LAB L400.3780 Negative /ul High 25 OCCULT BLOOD-UR LAB L400.3800 Negative /ul High LEUK 25 ESTERASE LAB L400.4050 0-5 /hpf WBC Normal 0-5 SEEN LAB L400.4100 0-5 /hpf 0 Normal RBC-UA SEEN LAB L400.4150 5-10 /hpf SQUAM Normal EPI 10-25 SEEN LAB L400.4300 None Seen /hpf 0 Normal BACTERIA SEEN LAB L400.4350 <or=2+ /hpf 0 Normal MUCUS, URINE SEEN Performed By: #### L400.0001 #### [facility] [address] [facility] [place], [address] CYCLOSPORINE, BLOOD Collected: 07/19/2017 Status: F Source: [place] 11:29 AM [facility] REPOSITORY TYPE CODE TESTS RESULT OUT OF REFERENCE UNITS RANGE LAB L3400.3100 Cyclosporine Normal Result Comment: None Detected Therapeutic: Renal Transplant 100 - 250 Liver Transplant 100 - 400 Cardiac Transplant 100 - 400 Bone Marrow 200 - 300 Detection Limit = 25 Assay performed by Liquid Chromatography Tandem Mass Spectrometry (LC-MS/MS) If preferred testing methodology for Cyclosporine is Liquid Chromatography Tandem Mass Spectrometry (LC-MS/MS) please use test code 424393. For testing performed by Immunoassay, please use test code [id number]. Performed at: - [facility] [address] [id number] [employer] Director: Mik Alonso MD, Phone: [phone] Performed By: #### L3400.3090 #### [facility] (refer to report for specific site) refer to report for address and phone number PROGRESS Observed: 07/14/2017 Status: COMPLETED Source: [place] 1:18 PM [facility] REPOSITORY HNO ID: [id number] Author: Jane Meza Service: (none) Author Type: Physician Type: Progress Notes Filed: 07/14/2017 1:26 PM Note Text: Follow up Podiatric Office Visit: This 62 year old who presents with: lateral ankle pain. Overall doing much better with ASO brace and custom insoles. Not wearing all the time but helping. Still having some pain 5/10 at times. Hx of kouts and achilles repair in the past by Dr. Sewell. PCP: Anisa Caldwell MD PAIN EVALUATION 07/14/2017 Pain Score: 5 Pain Location: Ankle-Left Description: Burning;Sharp Duration Amount of Time: - ongoing Frequency: Intermittent Intervention: Reposition;Modify dressing type;Modify dressing application;Exercise;Heat PAST MEDICAL HISTORY Diagnosis Date - Abdominal pain, other specified site - ACNE NEC 01/21/2008 - Actinic Keratosis (Premalignant AK) 06/05/2011 - ACUTE GASTRITIS W/O HEMORRHAGE 04/26/2007 - Allergic rhinitis 04/23/2012 - Anaphylactic reaction ideopathic - Benign tumor of adrenal gland - Biliary dyskinesia 10/29/2009 - Cervical herniated disc 10/20/2016 - Cervical myelopathy (HCC) 10/25/2016 - Cervical radiculitis 10/20/2016 - Cervical spondylosis with radiculopathy 11/17/2015 - JAIN ANGIOMA///NEVUS, NON-NEOPLASTIC 05/28/2007 - CKD (chronic kidney disease) stage 3, GFR 30-59 ml/min 04/29/2013 - Diaphragmatic hernia without mention of obstruction or gangrene 05/25/2011 - Diverticulosis of colon (without mention of hemorrhage) - Edema 07/07/2004 - Epigastric pain - GERD (gastroesophageal reflux disease) - HTN (hypertension) 2002 controlled on Diovan - Hyperlipidemia 10/15/2013 - IRON DEFIC ANEMIA NOS 04/26/2007 - Moderate persistent asthma without complication 02/18/2015 - Ovarian cyst Benign ovarian cyst, S/P laparoscopic LSO - Ptosis of eyelid, bilateral 12/23/2016 Added automatically from request for surgery [id number] - Shoulder impingement 11/17/2015 - Sleep apnea intollerant to CPAP because allergic to material on mask - Steroid-induced hyperglycemia 09/06/2014 - TACHYCARDIA NOS 01/09/2006 - Tarsal tunnel syndrome 12/23/2009 - Tear of lateral meniscus of knee 02/21/2014 - Ulcerative colitis, unspecified - UTERINE LEIOMYOMA NOS 12/23/2005 - VIRAL WARTS NOS 05/09/2006 - Vocal cord dysfunction Current Outpatient Prescriptions: lansoprazole (PREVACID) 30 mg capsule TAKE 1 CAPSULE TWICE A DAY bumetanide (BUMEX) 0.5 mg tablet Take 1 tablet by mouth once daily. nitroglycerin sublingual (NITROQUICK) 0.4 mg SL tablet DISSOLVE 1 TABLET UNDER THE TONGUE NEEDED FOR CHEST PAIN, IF NO RELIEF CALL 911 albuterol HFA (PROAIR HFA) 90 mcg/actuation inhaler Inhale 2 Puffs as instructed every 6 hours as needed for Wheezing/Shortness of Breath. fluticasone-vilanterol (BREO ELLIPTA) 100-25 mcg/dose inhaler Inhale 1 Inhalation as instructed once daily. levalbuterol (XOPENEX) 1.25 mg/3 mL nebulizer solution Use 1 Ampule via nebulizer every 4 hours as needed. Inhale over 5-15 minutes fluticasone (FLONASE) 50 mcg/actuation nasal spray 1-2 sprays each side qd budesonide (PULMICORT) 0.5 mg/2 mL nebulizer solution Use 1 Ampule via nebulizer twice daily. Azelastine 0.15 % (205.5 mcg) spry Use 1 Wilberforce in each nostril twice daily. COMPOUNDED PRESCRIPTION Nocturnal oximetry on room air. DME: [facility] cholestyramine-sucrose (QUESTRAN) 4 gram powder Take 1 scoop by mouth once daily. pregabalin (LYRICA) 150 mg capsule Take 1 capsule by mouth twice daily for 181 days. amLODIPine (NORVASC) 10 mg tablet Take 0.5 tablets by mouth once daily. cyanocobalamin (VITAMIN B-12) 1,000 mcg tab Take 1 tablet by mouth once daily. atenolol (TENORMIN) 25 mg tablet Take 1 tablet by mouth once daily. EPINEPHrine (EPIPEN) 0.3 mg/0.3 mL auto-injector Inject 0.3 mL intramuscularly as needed. predniSONE (DELTASONE) 10 mg tablet Take 2.5 tablets by mouth once daily. (Patient taking differently: Take 25 mg by mouth once daily. Total 25 mg daily ) ergocalciferol, vitamin D2, (VITAMIN D) 50,000 unit capsule Take 1 capsule by mouth once each week. (Patient taking differently: Take 50,000 Units by mouth once each week. Every Monday ) TURMERIC ROOT EXTRACT ORAL Take 1 tablet by mouth twice daily. crisaborole (EUCRISA) 2 % oint Apply to the hands twice daily COMPOUNDED PRESCRIPTION Please provide patient with nebulizer machine and supplies.Diagnosis: Severe Asthma. cetirizine (ZYRTEC) 10 mg tablet Take 10 mg by mouth once daily. pimecrolimus (ELIDEL) 1 % cream Apply twice daily to the hands spironolactone (ALDACTONE) 50 mg tablet Take 1 tablet by mouth twice daily. ondansetron (ZOFRAN) 4 mg tablet Take 1 tablet by mouth every 8 hours as needed. Benzonatate 200 mg capsule Take 200 mg by mouth three times daily as needed for Cough. lactobacillus rhamnosus (CULTURELLE) 10 billion cell capsule Take 1 capsule by mouth twice daily. famotidine (PEPCID) 20 mg tablet Take 1 tablet by mouth twice daily. (Patient taking differently: Take 20 mg by mouth twice daily. as needed ) diphenhydrAMINE (BENADRYL) 50 mg capsule Take 1 capsule by mouth every 6 hours as needed for Itching/Rash. amoxicillin (POLYMOX, AMOXIL) 250 mg capsule Take 250 mg by mouth once daily. zafirlukast (ACCOLATE) 20 mg tablet Take 1 tablet by mouth twice daily. doxazosin (CARDURA) 2 mg tablet Take 2 mg by mouth once daily. cycloSPORINE Modified 50 mg capsule Take 50 mg by mouth twice daily. ascorbic acid (VITAMIN C) 500 mg tablet Take 1 tablet by mouth once daily. albuterol 2.5 mg /3 mL (0.083 %) nebulizer solution Use 3 mL via nebulizer one time only for 1 dose. Inhale over 5-15 minutes No current facility-administered medications for this visit. ALLERGIES Allergen Reactions - Avocado Anaphylaxis - Banana Anaphylaxis - Carbinoxamine Anaphylaxis - Yoselin Seed Anaphylaxis - Ciprofloxacin Anaphylaxis - Codeine Anaphylaxis - Contrast Dye Anaphylaxis To MRI and CT - Fish Anaphylaxis - Hycodan [Hydrocodon* Anaphylaxis Face and throat swelling - Latex Anaphylaxis - Imtiaz-Synephrine [Phe* Anaphylaxis 10% eye drop - Nickel Rash, Hives, Anaphylaxis - Nsaids (Non-Steroid* Other: See Comments Kidney function drops; reversible kidney damage. - Oxycodone Anaphylaxis - Periactin [Cyprohep* Anaphylaxis - Pneumococcal Vaccine Anaphylaxis - Shellfish Anaphylaxis - Zantac [Ranitidine] Anaphylaxis - Ativan [Lorazepam] Other: See Comments hallucination - Beef Containing Pro* Rash - Berino Other: See Comments Feels like an asthma attack. - Eggs [Egg] Rash, Vomiting - Ekg Leads [Adhesive] Rash Localized,only under the leads - Influenza Virus Vac* Shortness of Breath - Lisinopril Cough - Milk Rash, Vomiting - Mometasone Anaphylaxis Per Dr. Salas she tolerates formoterol (on Breo at home) but is allergic to mometasone. Okayed by him to update. - Xolair [Omalizumab] Shortness of Breath - Environmental [Othe* Other: See Comments Nasal congestion, brings on an asthma attack. - Surgical Tape [Othe* Rash, Swelling Oral rash, swelling of eyes, asthma attacks; per pateint report. Physical Exam: OBJECTIVE: Vascular: Dorsalis pedis and posterior tibial pulses palpable b/l Capillary Fill time < 3 seconds to digits 1-5 b/l Skin temperature warm to warm proximal to distal b/l Hair growth present to digits Neurological: Intact light touch/epicritic sensation Vibratory sensation intact to MTPJ b/l NO significant neurological deficits Dermatological: Nails 1-5 b/l appear normal. Webspaces clean and dry 1-4 b/l. Skin appears well hydrated and supple. good color, texture, turgor. No open lesions present. No callosities present. Musculoskeletal/Orthopaedic: Patient has pain and swelling to palpation of peroneal tendon L foot. Pain noted with eversion and inversion against resistance. Foot type is supinated structurally within normal limits Radiographs:06/02/2017: hx of kouts. 2 large headless screws in place with no sign of lucency or displacement. ASSESSMENT: Peroneal tendonitis L foot PLAN: 1. History and physical examination performed 2. Continue ASO and custom insoles. 3. Consult physical therapy. 4. RTC following pt Jane Meza DPM CNOV Observed: 07/14/2017 Status: COMPLETED Source: [place] 1:00 PM [facility] REPOSITORY Office Visit (PODIMM) RALPH JOSHI ([id number]) 1955 F Date Time Provider Department 07/14/17 1:00 PM JANE MEZA PODIMM During your visit today, we recorded the following information about you: Taty Corona Ma 07/14/2017 12:58 PM Signed Patient presents with: Follow Up: Left ankle pain Jane Meza DPM 07/14/2017 1:26 PM Signed Follow up Podiatric Office Visit: This 62 year old who presents with: lateral ankle pain. Overall doing much better with ASO brace and custom insoles. Not wearing all the time but helping. Still having some pain 5/10 at times. Hx of kouts and achilles repair in the past by Dr. Sewell. PCP: Anisa Caldwell MD PAIN EVALUATION 07/14/2017 Pain Score: 5 Pain Location: Ankle-Left Description: Burning;Sharp Duration Amount of Time: - ongoing Frequency: Intermittent Intervention: Reposition;Modify dressing type;Modify dressing application;Exercise;Heat PAST MEDICAL HISTORY Diagnosis Date - Abdominal pain, other specified site - ACNE NEC 01/21/2008 - Actinic Keratosis (Premalignant AK) 06/05/2011 - ACUTE GASTRITIS W/O HEMORRHAGE 04/26/2007 - Allergic rhinitis 04/23/2012 - Anaphylactic reaction ideopathic - Benign tumor of adrenal gland - Biliary dyskinesia 10/29/2009 - Cervical herniated disc 10/20/2016 - Cervical myelopathy (HCC) 10/25/2016 - Cervical radiculitis 10/20/2016 - Cervical spondylosis with radiculopathy 11/17/2015 - JAIN ANGIOMA///NEVUS, NON-NEOPLASTIC 05/28/2007 - CKD (chronic kidney disease) stage 3, GFR 30-59 ml/min 04/29/2013 - Diaphragmatic hernia without mention of obstruction or gangrene 05/25/2011 - Diverticulosis of colon (without mention of hemorrhage) - Edema 07/07/2004 - Epigastric pain - GERD (gastroesophageal reflux disease) - HTN (hypertension) 2002 controlled on Diovan - Hyperlipidemia 10/15/2013 - IRON DEFIC ANEMIA NOS 04/26/2007 - Moderate persistent asthma without complication 02/18/2015 - Ovarian cyst Benign ovarian cyst, S/P laparoscopic LSO - Ptosis of eyelid, bilateral 12/23/2016 Added automatically from request for surgery [id number] - Shoulder impingement 11/17/2015 - Sleep apnea intollerant to CPAP because allergic to material on mask - Steroid-induced hyperglycemia 09/06/2014 - TACHYCARDIA NOS 01/09/2006 - Tarsal tunnel syndrome 12/23/2009 - Tear of lateral meniscus of knee 02/21/2014 - Ulcerative colitis, unspecified - UTERINE LEIOMYOMA NOS 12/23/2005 - VIRAL WARTS NOS 05/09/2006 - Vocal cord dysfunction Current Outpatient Prescriptions: lansoprazole (PREVACID) 30 mg capsule TAKE 1 CAPSULE TWICE A DAY bumetanide (BUMEX) 0.5 mg tablet Take 1 tablet by mouth once daily. nitroglycerin sublingual (NITROQUICK) 0.4 mg SL tablet DISSOLVE 1 TABLET UNDER THE TONGUE NEEDED FOR CHEST PAIN, IF NO RELIEF CALL 911 albuterol HFA (PROAIR HFA) 90 mcg/actuation inhaler Inhale 2 Puffs as instructed every 6 hours as needed for Wheezing/Shortness of Breath. fluticasone-vilanterol (BREO ELLIPTA) 100-25 mcg/dose inhaler Inhale 1 Inhalation as instructed once daily. levalbuterol (XOPENEX) 1.25 mg/3 mL nebulizer solution Use 1 Ampule via nebulizer every 4 hours as needed. Inhale over 5-15 minutes fluticasone (FLONASE) 50 mcg/actuation nasal spray 1-2 sprays each side qd budesonide (PULMICORT) 0.5 mg/2 mL nebulizer solution Use 1 Ampule via nebulizer twice daily. Azelastine 0.15 % (205.5 mcg) spry Use 1 Wilberforce in each nostril twice daily. COMPOUNDED PRESCRIPTION Nocturnal oximetry on room air. DME: [facility] cholestyramine-sucrose (QUESTRAN) 4 gram powder Take 1 scoop by mouth once daily. pregabalin (LYRICA) 150 mg capsule Take 1 capsule by mouth twice daily for 181 days. amLODIPine (NORVASC) 10 mg tablet Take 0.5 tablets by mouth once daily. cyanocobalamin (VITAMIN B-12) 1,000 mcg tab Take 1 tablet by mouth once daily. atenolol (TENORMIN) 25 mg tablet Take 1 tablet by mouth once daily. EPINEPHrine (EPIPEN) 0.3 mg/0.3 mL auto-injector Inject 0.3 mL intramuscularly as needed. predniSONE (DELTASONE) 10 mg tablet Take 2.5 tablets by mouth once daily. (Patient taking differently: Take 25 mg by mouth once daily. Total 25 mg daily ) ergocalciferol, vitamin D2, (VITAMIN D) 50,000 unit capsule Take 1 capsule by mouth once each week. (Patient taking differently: Take 50,000 Units by mouth once each week. Every Monday ) TURMERIC ROOT EXTRACT ORAL Take 1 tablet by mouth twice daily. crisaborole (EUCRISA) 2 % oint Apply to the hands twice daily COMPOUNDED PRESCRIPTION Please provide patient with nebulizer machine and supplies.Diagnosis: Severe Asthma. cetirizine (ZYRTEC) 10 mg tablet Take 10 mg by mouth once daily. pimecrolimus (ELIDEL) 1 % cream Apply twice daily to the hands spironolactone (ALDACTONE) 50 mg tablet Take 1 tablet by mouth twice daily. ondansetron (ZOFRAN) 4 mg tablet Take 1 tablet by mouth every 8 hours as needed. Benzonatate 200 mg capsule Take 200 mg by mouth three times daily as needed for Cough. lactobacillus rhamnosus (CULTURELLE) 10 billion cell capsule Take 1 capsule by mouth twice daily. famotidine (PEPCID) 20 mg tablet Take 1 tablet by mouth twice daily. (Patient taking differently: Take 20 mg by mouth twice daily. as needed ) diphenhydrAMINE (BENADRYL) 50 mg capsule Take 1 capsule by mouth every 6 hours as needed for Itching/Rash. amoxicillin (POLYMOX, AMOXIL) 250 mg capsule Take 250 mg by mouth once daily. zafirlukast (ACCOLATE) 20 mg tablet Take 1 tablet by mouth twice daily. doxazosin (CARDURA) 2 mg tablet Take 2 mg by mouth once daily. cycloSPORINE Modified 50 mg capsule Take 50 mg by mouth twice daily. ascorbic acid (VITAMIN C) 500 mg tablet Take 1 tablet by mouth once daily. albuterol 2.5 mg /3 mL (0.083 %) nebulizer solution Use 3 mL via nebulizer one time only for 1 dose. Inhale over 5-15 minutes No current facility-administered medications for this visit. ALLERGIES Allergen Reactions - Avocado Anaphylaxis - Banana Anaphylaxis - Carbinoxamine Anaphylaxis - Yoselin Seed Anaphylaxis - Ciprofloxacin Anaphylaxis - Codeine Anaphylaxis - Contrast Dye Anaphylaxis To MRI and CT - Fish Anaphylaxis - Hycodan [Hydrocodon* Anaphylaxis Face and throat swelling - Latex Anaphylaxis - Imtiaz-Synephrine [Phe* Anaphylaxis 10% eye drop - Nickel Rash, Hives, Anaphylaxis - Nsaids (Non-Steroid* Other: See Comments Kidney function drops; reversible kidney damage. - Oxycodone Anaphylaxis - Periactin [Cyprohep* Anaphylaxis - Pneumococcal Vaccine Anaphylaxis - Shellfish Anaphylaxis - Zantac [Ranitidine] Anaphylaxis - Ativan [Lorazepam] Other: See Comments hallucination - Beef Containing Pro* Rash - Berino Other: See Comments Feels like an asthma attack. - Eggs [Egg] Rash, Vomiting - Ekg Leads [Adhesive] Rash Localized,only under the leads - Influenza Virus Vac* Shortness of Breath - Lisinopril Cough - Milk Rash, Vomiting - Mometasone Anaphylaxis Per Dr. Salas she tolerates formoterol (on Breo at home) but is allergic to mometasone. Okayed by him to update. - Xolair [Omalizumab] Shortness of Breath - Environmental [Othe* Other: See Comments Nasal congestion, brings on an asthma attack. - Surgical Tape [Othe* Rash, Swelling Oral rash, swelling of eyes, asthma attacks; per pateint report. Physical Exam: OBJECTIVE: Vascular: Dorsalis pedis and posterior tibial pulses palpable b/l Capillary Fill time ANDlt; 3 seconds to digits 1-5 b/l Skin temperature warm to warm proximal to distal b/l Hair growth present to digits Neurological: Intact light touch/epicritic sensation Vibratory sensation intact to MTPJ b/l NO significant neurological deficits Dermatological: Nails 1-5 b/l appear normal. Webspaces clean and dry 1-4 b/l. Skin appears well hydrated and supple. good color, texture, turgor. No open lesions present. No callosities present. Musculoskeletal/Orthopaedic: Patient has pain and swelling to palpation of peroneal tendon L foot. Pain noted with eversion and inversion against resistance. Foot type is supinated structurally within normal limits Radiographs:06/02/2017: hx of kouts. 2 large headless screws in place with no sign of lucency or displacement. ASSESSMENT: Peroneal tendonitis L foot PLAN: 1. History and physical examination performed 2. Continue ASO and custom insoles. 3. Consult physical therapy. 4. RTC following pt Jane Meza DPM Referring Provider: ANISA CALDWELL [[id number]] Allergies As of Date: 07/14/2017 Noted Allergy Reaction AVOCADO 09/10/2014 10 - Anaphylaxis BANANA 09/10/2014 10 - Anaphylaxis CARBINOXAMINE 09/17/2012 10 - Anaphylaxis YOSELIN SEED 08/28/2013 10 - Anaphylaxis CIPROFLOXACIN 04/11/2014 10 - Anaphylaxis CODEINE 01/12/2012 10 - Anaphylaxis CONTRAST DYE 05/17/2013 10 - Anaphylaxis Comments: To MRI and CT FISH 09/07/2014 10 - Anaphylaxis HYCODAN (HYDROCODONE-HOMATROPINE) 09/08/2011 10 - Anaphylaxis Comments: Face and throat swelling LATEX 01/21/2014 10 - Anaphylaxis IMTIAZ-SYNEPHRINE (PHENYLEPHRINE HCL)09/04/2014 10 - Anaphylaxis Comments: 10% eye drop NICKEL 01/07/2014 2 - Rash 4 - Hives 10 - Anaphylaxis NSAIDS (NON-STEROIDAL ANTI-INFLAM*08/16/2010 14 - Other: See Comments Comments: Kidney function drops; reversible kidney damage. OXYCODONE 08/28/2013 10 - Anaphylaxis PERIACTIN (CYPROHEPTADINE) 09/17/2012 10 - Anaphylaxis PNEUMOCOCCAL VACCINE 10/31/2014 10 - Anaphylaxis SHELLFISH 09/07/2014 10 - Anaphylaxis ZANTAC (RANITIDINE) 09/17/2012 10 - Anaphylaxis ATIVAN (LORAZEPAM) 08/28/2013 14 - Other: See Comments Comments: hallucination BEEF CONTAINING PRODUCTS 09/10/2014 2 - Rash CORN 05/03/2011 14 - Other: See Comments Comments: Feels like an asthma attack. EGGS (EGG) 03/08/2011 2 - Rash 11 - Vomiting EKG LEADS (ADHESIVE) 10/22/2012 2 - Rash Comments: Localized,only under the leads INFLUENZA VIRUS VACCINES 10/22/2012 12 - Shortness of Breath LISINOPRIL 04/20/2004 3 - Cough MILK 03/08/2011 2 - Rash 11 - Vomiting MOMETASONE 04/05/2017 10 - Anaphylaxis Comments: Per Dr. Salas she tolerates formoterol (on Breo at home) but is allergic to mometasone. Okayed by him to update. XOLAIR (OMALIZUMAB) 04/19/2012 12 - Shortness of Breath environmental [Other] 06/26/2007 14 - Other: See Comments Comments: Nasal congestion, brings on an asthma attack. surgical tape [Other] 11/10/2009 2 - Rash 7 - Swelling Comments: Oral rash, swelling of eyes, asthma attacks; per pateint report. Date Reviewed: 07/14/2017 Reviewed by: Taty Corona Ma - Fully Assessed Reason for Visit: Follow Up [171] Cmt: Left ankle pain Primary Visit Diagnosis:Peroneal tendonitis, left [M76.72] Order(s):CONSULT TO PHYSICAL THERAPY [9027] Order #: [id number]: 1 Prescriptions as of 07/14/2017 Sig: LANSOPRAZOLE 30 MG CAPSULE,DE* TAKE 1 CAPSULE TWICE A DAY BUMETANIDE 0.5 MG TABLET Take 1 tablet by mouth once d* NITROGLYCERIN 0.4 MG SUBLINGU* DISSOLVE 1 TABLET UNDER THE T* ALBUTEROL SULFATE HFA 90 MCG/* Inhale 2 Puffs as instructed * FLUTICASONE 100 MCG-VILANTERO* Inhale 1 Inhalation as instru* LEVALBUTEROL 1.25 MG/3 ML BRENDA* Use 1 Ampule via nebulizer ev* FLUTICASONE 50 MCG/ACTUATION * 1-2 sprays each side qd BUDESONIDE 0.5 MG/2 ML SUSPEN* Use 1 Ampule via nebulizer tw* AZELASTINE 0.15 % (205.5 MCG)* Use 1 Wilberforce in each nostril t* COMPOUNDED PRESCRIPTION Nocturnal oximetry on room ai* CHOLESTYRAMINE (WITH SUGAR) 4* Take 1 scoop by mouth once da* PREGABALIN 150 MG CAPSULE Take 1 capsule by mouth twice* AMLODIPINE 10 MG TABLET Take 0.5 tablets by mouth onc* CYANOCOBALAMIN (VIT B-12) 1,0* Take 1 tablet by mouth once d* ATENOLOL 25 MG TABLET Take 1 tablet by mouth once d* EPINEPHRINE 0.3 MG/0.3 ML INJ* Inject 0.3 mL intramuscularly* PREDNISONE 10 MG TABLET Take 2.5 tablets by mouth onc* Patient taking differently: Take 25 mg by mouth once mary ellen* ERGOCALCIFEROL (VITAMIN D2) 5* Take 1 capsule by mouth once * Patient taking differently: Take 50,000 Units by mouth on* TURMERIC ROOT EXTRACT ORAL Take 1 tablet by mouth twice * CRISABOROLE 2 % TOPICAL OINTM* Apply to the hands twice daily COMPOUNDED PRESCRIPTION Please provide patient with n* CETIRIZINE 10 MG TABLET Take 10 mg by mouth once mary ellen* PIMECROLIMUS 1 % TOPICAL CREAM Apply twice daily to the hands SPIRONOLACTONE 50 MG TABLET Take 1 tablet by mouth twice * ONDANSETRON HCL 4 MG TABLET Take 1 tablet by mouth every * BENZONATATE 200 MG CAPSULE Take 200 mg by mouth three ti* LACTOBACILLUS RHAMNOSUS GG 10* Take 1 capsule by mouth twice* FAMOTIDINE 20 MG TABLET Take 1 tablet by mouth twice * Patient taking differently: Take 20 mg by mouth twice liam* DIPHENHYDRAMINE 50 MG CAPSULE Take 1 capsule by mouth every* AMOXICILLIN 250 MG CAPSULE Take 250 mg by mouth once liam* ZAFIRLUKAST 20 MG TABLET Take 1 tablet by mouth twice * DOXAZOSIN 2 MG TABLET Take 2 mg by mouth once daily. CYCLOSPORINE MODIFIED 50 MG C* Take 50 mg by mouth twice liam* ASCORBIC ACID (VITAMIN C) 500* Take 1 tablet by mouth once d* ALBUTEROL SULFATE 2.5 MG/3 ML* Use 3 mL via nebulizer one ti* Problem List As Of Date 07/14/2017 Noted Resolved JOINT PAIN-ANKLE [M25.579] INVALID FOR*03/20/2014 Edema [R60.9] INVALID FOR*03/28/2016 Priority: I Adrenal nodule (HCC) [E27.9] INVALID FOR* More... Diarrhea [R19.7] INVALID FOR*10/15/2013 Excessive or frequent menstruation [N92.0] INVALID FOR*07/14/2011 Shortness of breath [R06.02] INVALID FOR*10/15/2013 Palpitations [R00.2] INVALID FOR*03/20/2014 Tachycardia, unspecified [R00.0] INVALID FOR*10/15/2013 More... Open wound site NOS [T14.8XXA] INVALID FOR*07/16/2011 Abdominal pain, right upper quadrant [R10.11] INVALID FOR*07/14/2011 More... Acute gastritis without mention of hemorrhage [*INVALID FOR*10/15/2013 Hematuria [599.7] INVALID FOR*07/14/2011 URGE INCONTINENCE [N39.41] INVALID FOR* FEMALE STRESS INCONTINENCE [N39.3] INVALID FOR* Scar, hypertrophic [L91.0] INVALID FOR*10/15/2013 Ovarian cyst [N83.209] INVALID FOR*07/06/2010 Cyst INVALID FOR*10/15/2013 Other specified pre-operative examination [Z01.*INVALID FOR*07/16/2011 Hirsutism [L68.0] INVALID FOR* Dysphagia [R13.10] INVALID FOR*03/20/2014 GERD (gastroesophageal reflux disease) [K21.9] INVALID FOR* Priority: D More... 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 Obesity (BMI 30.0-34.9) [E66.9] INVALID FOR* More... More... More... More... Idiopathic anaphylaxis [T78.2XXA] INVALID FOR* Priority: A More... Urticaria, idiopathic [L50.1] INVALID FOR*03/28/2016 More... Hyperlipidemia [E78.5] INVALID FOR* Impaired fasting glucose [R73.01] INVALID FOR* Recurrent chest pain [R07.9, G89.29] INVALID FOR*12/09/2014 Multinodular goiter [E04.2] INVALID FOR* More... CKD (chronic kidney disease) stage 3, GFR 30-59*INVALID FOR* Pain in joint, ankle and foot [M25.579] INVALID FOR*12/09/2014 More... More... Steroid-induced hyperglycemia [R73.9, T38.0X5A] INVALID FOR*03/28/2016 Priority: C Moderate persistent asthma without complication*INVALID FOR* Ulcerative colitis without complications (HCC) *INVALID FOR* Anaphylaxis [T78.2XXA] INVALID FOR*03/26/2015 More... Neck pain, bilateral [M54.2] INVALID FOR*03/28/2016 Essential hypertension with goal blood pressure*INVALID FOR*03/28/2016 Chronic nausea [R11.0] INVALID FOR* Lumbar radiculitis [M54.16] INVALID FOR*03/28/2016 Lumbar stenosis [M48.061] INVALID FOR*03/28/2016 Acquired spondylolisthesis [M43.10] INVALID FOR*03/28/2016 Cervical radiculitis [M54.12] INVALID FOR*03/28/2016 Cervical spondylosis with radiculopathy [M47.22]INVALID FOR*03/29/2017 Shoulder impingement [M75.40] INVALID FOR*03/28/2016 Anaphylaxis [T78.2XXA] INVALID FOR*03/28/2016 Tendonitis, tibialis [M76.829] INVALID FOR*05/09/2016 Lumbar stenosis [M48.061] INVALID FOR* Cervical radiculitis [M54.12] INVALID FOR*03/29/2017 Cervical herniated disc [M50.20] INVALID FOR*03/29/2017 Cervical stenosis of spine [M48.02] INVALID FOR* Cervical spondylosis with myelopathy [M47.12] INVALID FOR*03/29/2017 Cervical myelopathy (HCC) [G95.9] INVALID FOR*03/29/2017 Claustrophobia [F40.240] INVALID FOR* Ptosis of eyelid, bilateral [H02.403] INVALID FOR*03/29/2017 More... Lumbar spondylosis [M47.816] INVALID FOR* More... Preop testing [Z01.818] INVALID FOR* More... Anaphylaxis [T78.2XXA] INVALID FOR* Essential hypertension [I10] INVALID FOR* Visit Notes: >> Taty Corona Ravinder MonJul 14, 2017 12:56 PM Status: Signed Patient presents with: Follow Up: Left ankle pain Encounter Status:Closed by JANE MEZA DPM on 07/14/17 CBC W/DIFF, AUTOMATED Collected: 07/06/2017 Status: F Source: [place] 1:50 PM [facility] REPOSITORY Order Comment: FAX RESULTS TO [id number] TYPE CODE TESTS RESULT OUT OF RANGE REFERENCE UNITS LAB L100.1000 4.4-11.0 K/mm3 Normal WBC 6.4 LAB L100.1200 4.2-5.4 M/mm3 Normal RBC 4.85 LAB L100.1300 12.0-15.0 g/dl Normal HGB 14.5 LAB L100.1400 37-47 % Normal HCT 43.4 LAB L100.1500 81-99 fL Normal MCV 89.5 LAB L100.1600 27.0-32.0 pg Normal MCH 29.9 LAB L100.1700 32-36 g/gl Normal MCHC 33.4 LAB L100.1810 11.6-14.6 % Normal RDW CV 14.2 LAB L100.1820 35.1-43.9 fl High RDW SD 46.2 LAB L100.1900 150-450 K/mm3 Normal PLT 230 LAB L100.2000 6.2-12.0 fl Normal MPV 10.7 LAB L100.2100 47-70 % Normal NEUT% 64.6 LAB L100.2200 19-41 % Normal LY% 19.2 LAB L100.2300 0-10 % High MONO% 12.3 LAB L100.2400 0-5 % Normal EO% 2.2 LAB L100.2500 0-1 % Normal BASO% 0.9 LAB L100.2550 0.0-0.9 % Normal IM GRAN % 0.800 Result Comment: IG% - Immature Granulocytes (promyelocytes, myelocytes and metamyelocytes) > 1% indicates that a LEFT SHIFT is Present. LAB L100.2620 2.0-7.7 X10 3/uL Normal Absolute Neut 4.1 LAB L100.2720 0.83-4.51 X10 3/ul Normal Absolute Lymph 1.23 Performed By: #### L100.0100 #### [facility] [address] [place], [address] BUN Collected: 07/06/2017 Status: F Source: [place] 1:50 PM [facility] REPOSITORY Order Comment: FAX RESULTS TO [id number] TYPE CODE TESTS RESULT OUT OF RANGE REFERENCE UNITS LAB L501.1000 7-18 mg/dL Normal BUN 15 Performed By: #### L501.1000, L501.1105, L501.1800, L501.4100, L501.4405 #### [facility] [address] [place], [place], [address] SERUM CREATININE AND Collected: 07/06/2017 Status: F Source: [place] GFR 1:50 PM [facility] REPOSITORY Order Comment: FAX RESULTS TO [id number] TYPE CODE TESTS RESULT OUT OF RANGE REFERENCE UNITS LAB L501.1100 0.55-1.02 mg/dL High 1.21 CREAT,SERUM Result Comment: The validity of the calculated GFR AND GFRAA in patients over 70 years has not been determined. Clinical correlation is essential. LAB L501.1110 >60 mL/min Low EST GFR 48 Result Comment: Non- GFR Calc LAB L501.1115 >60 mL/min Low EST GFR - AA 58 Result Comment: GFR Calc Performed By: #### L501.1000, L501.1105, L501.1800, L501.4100, L501.4405 #### [facility] [address] [place], [place], [address] ALBUMIN, SERUM Collected: 07/06/2017 Status: F Source: [place] 1:50 PM [facility] REPOS[facility] Order Comment: FAX RESULTS TO [id number] TYPE CODE TESTS RESULT OUT OF RANGE REFERENCE UNITS LAB L501.1800 3.2-5.0 g/dL Normal ALB 3.9 Performed By: #### L501.1000, L501.1105, L501.1800, L501.4100, L501.4405 #### [facility] [address] [place], [address] AST(SGOT) Collected: 07/06/2017 Status: F Source: [place] 1:50 PM [facility] REPOS[facility] Order Comment: FAX RESULTS TO [id number] TYPE CODE TESTS RESULT OUT OF RANGE REFERENCE UNITS LAB L501.4100 15-37 U/L Normal AST 30 Performed By: #### L501.1000, L501.1105, L501.1800, L501.4100, L501.4405 #### [facility] [address] [facility] [place], [place], [address] ALANINE AMINOTRANSFERAS Collected: 07/06/2017 Status: F Source: [place] (SGPT) 1:50 PM [facility] REPOS[facility] Order Comment: FAX RESULTS TO [id number] TYPE CODE TESTS RESULT OUT OF RANGE REFERENCE UNITS LAB L501.4405 13-56 U/L Normal ALT 44 Result Comment: Please note revised ALT reference range effective 2017. Performed By: #### L501.1000, L501.1105, L501.1800, L501.4100, L501.4405 #### [facility] [address] [place], [place], [address] URINALYSIS, ROUTINE Collected: 07/06/2017 Status: F Source: [place] (DIPSTICK) 1:50 PM [facility] REPOS[facility] Order Comment: FAX RESULTS TO [id number] How was Urine Obtained? CLEAN CATCH TYPE CODE TESTS RESULT OUT OF RANGE REFERENCE UNITS LAB L400.3000 Yellow COLOR Normal Straw LAB L400.3050 Clear Normal CLARITY Clear LAB L400.3200 Normal mg/dl Normal GLUCOSE, UR Normal LAB L400.3300 Negative mg/dL Normal BILIRUBIN URINE Negative LAB L400.3400 Negative mg/dl Normal KETONE UR Negative LAB L400.3465 1.002-1.030 Normal SP.GR. DIPSTX 1.005 LAB L400.3550 5.0 - 8.0 pH UR Normal 6.5 LAB L400.3600 Negative mg/dl PROT Normal DIPSTX Negative LAB L400.3700 Normal mg/dl Normal UROBILI Normal LAB L400.3750 Negative Normal NITRITE UR Negative LAB L400.3780 Negative /ul Normal OCCULT BLOOD-UR Negative LAB L400.3800 Negative /ul High LEUK 25 ESTERASE Performed By: #### L400.2010 #### [facility] [address] [place], [address] CYCLOSPORINE, BLOOD Collected: 07/06/2017 Status: F Source: [place] 1:50 PM [facility] REPOS[facility] Order Comment: FAX RESULTS TO [id number] TYPE CODE TESTS RESULT OUT OF REFERENCE UNITS RANGE LAB L3400.3100 100-400 ng/mL Low Cyclosporine 88 Result Comment: Therapeutic: Renal Transplant 100 - 250 Liver Transplant 100 - 400 Cardiac Transplant 100 - 400 Bone Marrow 200 - 300 Detection Limit = 25 Assay performed by Liquid Chromatography Tandem Mass Spectrometry (LC-MS/MS) If preferred testing methodology for Cyclosporine is Liquid Chromatography Tandem Mass Spectrometry (LC-MS/MS) please use test code 926120. For testing performed by Immunoassay, please use test code 390853. Performed at: [address] [id number] [employer] Director: Mik Alonso MD, Phone: [phone] Performed By: #### L3400.3090 #### [facility] (refer to report for specific site) refer to report for address and phone number CNOV Observed: 07/06/2017 Status: COMPLETED Source: [place] 1:00 PM [facility] REPOSITORY Office Visit (PULMWS) RALPH JOSHI ([id number]) 1955 F Date Time Provider Department 3/22/18 1:00 PM JOVANNA SPENCE During your visit today, we recorded the following information about you: Pulse Respiration Blood pressure Weight 107/minute 16/minute 138/78 95.7 kg Jovanna Spence PA-C 07/06/2017 1:31 PM Signed [facility] [place], 07/06/17: INTERVAL HISTORY: The patient is here for follow up of asthma. Since the last Pulmonary Clinic visit, the patient has required no ED visits or hospitalizations, for management of exacerbations. The patient has been compliant with therapy recommended at the last visit. Variable cough. Occasional clear sputum. No hemoptysis. Left sided chest pain since surgery in 10/2016. Not relieved by nitroglycerin or rest. Not exacerbated with deep breaths or coughing. Patient reports it is random when it occurs. Occasional wheezing with environmental exposures. Especially with perfumes/colognes or smoking. Exertional dyspnea. ANDquot;I can now only climb one set of stairs without stoppingANDquot;. No nocturnal awakenings. 3 times daily nebulized treatments daily. No disruption in taste or voice associated with use of inhaled corticosteroid. No tremor, palpitations, or muscle cramping associated with bronchodilator inhalation. PMH: Reviewed with patient today. No changes. FAMH: Reviewed with patient today. No changes. SOCH: No changes. ROS: General: Generally feels good. Appetite good. Weight gain without change in eating and exercising. Eyes, Ears, nose, throat: No post nasal drip, rhinorrhea, purulent nasal discharge, epistaxis, hoarseness. Vision stable. Cardiac: No angina, orthopnea. Lower extremity edema ANDquot;for yearsANDquot;. Chest pain, see HPI. GI: No heartburn, dysphagia, diarrhea. 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 Musculoskeletal: No pain. Neuro: No headache, focal weakness, tremor. Skin: No rash. Otherwise negative. Immunization History Administered Date(s) Administered Influenza Vaccine, Split-Non Spec 2006 02/20/2008 01/15/2009 01/19/2010 01/22/2011 03/15/2012 Pneumovax 06/27/2008 Deferred Date(s) Deferred Tdap (Age 7+) 06/19/2014 Allergies were verified and updated, and medications were reconciled with the patient at this visit. PHYSICAL EXAMINATION: BP 138/78 Pulse 107 Resp 16 Wt 211 lb (95.7kg) SpO2 98% LMP 08/07/2013 Gen: No acute distress. Cooperative with examination. ENT: Sclerae clear. EOMI. Nares clear. Oral hygeine/dentition good. Pharynx clear. No sign of oral thrush. Resp: No stridor, accessory respiratory muscle use, supra- sternal or intercostal retractions. No crackles, wheezes, rubs. CV: Regular rythm. Heart tones normal. Radial pulses normal. Abd: Non distended. MSK: No kyphoscoliosis, joint deformities. No tenderness with palpation on chest wall. Ext: Warm and well perfused. No clubbing, cyanosis. Bilateral lower extremity edema. Skin: Color normal. Texture normal. No rash, eczema, urticaria. Neuro: Mental status normal. Affect normal. Muscle tone normal. No tremor. DATA REVIEW: Exhaled nitric oxide (Martha), 07/06/17: 34 04/07/17: 37 (normal ANDlt; 25). DATE: 04/07/17 11/01/16 04/30/15 08/27/14 FVC 2.39 (76 % pred) 2.65?(80?% pred) 2.50?(78?% pred) 2.59?(77?% pred) FEV1 1.96 (80 % pred) 2.03?(79?% pred) 1.97?(79?% pred) 2.05?(78?% pred) FEV1/FVC 0.82 0.77 0.79 0.79 ? IMPRESSION and RECOMMENDATIONS: Severe-persistent asthma, symptomatically not as well controlled today. This may be due to the change in season we are experiencing. Nitric oxide stable today. Continue therapies as prescribed. - Nebulized treatment four times daily with Budesonide twice daily. - Xopenex four times daily. - Nocturnal oximetry on room air. Will send order to [facility]. THONY. - Unable to wear CPAP secondary to allergy. - Will obtain nocturnal oximetry. - I reviewed the pathophysiology of asthma, NIH guidelines for evaluation and management, and mechanisms of action and side effects of medical therapy (ICS, bronchodilators) with the patient. I addressed the questions of the patient, and she expressed understanding and acceptance of my answers. Jovanna Spence PA-C [facility] [place] [address] [place] [address] Jovanna Spence PA-C 07/06/2017 1:21 PM Signed Severe-persistent asthma, symptomatically not as well controlled today. This may be due to the change in season we are experiencing. Nitric oxide stable today. Continue therapies as prescribed. - Nebulized treatment four times daily with Budesonide twice daily. - Xopenex four times daily. - Nocturnal oximetry on room air. Will send order to [facility]. THONY. - Unable to wear CPAP secondary to allergy. - Will obtain nocturnal oximetry. Referring Provider: JOVANNA SPENCE [[id number]] Allergies As of Date: 07/06/2017 Noted Allergy Reaction AVOCADO 09/10/2014 10 - Anaphylaxis BANANA 09/10/2014 10 - Anaphylaxis CARBINOXAMINE 09/17/2012 10 - Anaphylaxis YOSELIN SEED 08/28/2013 10 - Anaphylaxis CIPROFLOXACIN 04/11/2014 10 - Anaphylaxis CODEINE 01/12/2012 10 - Anaphylaxis CONTRAST DYE 05/17/2013 10 - Anaphylaxis Comments: To MRI and CT FISH 09/07/2014 10 - Anaphylaxis HYCODAN (HYDROCODONE-HOMATROPINE) 09/08/2011 10 - Anaphylaxis Comments: Face and throat swelling LATEX 01/21/2014 10 - Anaphylaxis IMTIAZ-SYNEPHRINE (PHENYLEPHRINE HCL)09/04/2014 10 - Anaphylaxis Comments: 10% eye drop NICKEL 01/07/2014 2 - Rash 4 - Hives 10 - Anaphylaxis NSAIDS (NON-STEROIDAL ANTI-INFLAM*08/16/2010 14 - Other: See Comments Comments: Kidney function drops; reversible kidney damage. OXYCODONE 08/28/2013 10 - Anaphylaxis PERIACTIN (CYPROHEPTADINE) 09/17/2012 10 - Anaphylaxis PNEUMOCOCCAL VACCINE 10/31/2014 10 - Anaphylaxis SHELLFISH 09/07/2014 10 - Anaphylaxis ZANTAC (RANITIDINE) 09/17/2012 10 - Anaphylaxis ATIVAN (LORAZEPAM) 08/28/2013 14 - Other: See Comments Comments: hallucination BEEF CONTAINING PRODUCTS 09/10/2014 2 - Rash CORN 05/03/2011 14 - Other: See Comments Comments: Feels like an asthma attack. EGGS (EGG) 03/08/2011 2 - Rash 11 - Vomiting EKG LEADS (ADHESIVE) 10/22/2012 2 - Rash Comments: Localized,only under the leads INFLUENZA VIRUS VACCINES 10/22/2012 12 - Shortness of Breath LISINOPRIL 04/20/2004 3 - Cough MILK 03/08/2011 2 - Rash 11 - Vomiting MOMETASONE 04/05/2017 10 - Anaphylaxis Comments: Per Dr. Salas she tolerates formoterol (on Breo at home) but is allergic to mometasone. Okayed by him to update. XOLAIR (OMALIZUMAB) 04/19/2012 12 - Shortness of Breath environmental [Other] 06/26/2007 14 - Other: See Comments Comments: Nasal congestion, brings on an asthma attack. surgical tape [Other] 11/10/2009 2 - Rash 7 - Swelling Comments: Oral rash, swelling of eyes, asthma attacks; per pateint report. Date Reviewed: 07/06/2017 Reviewed by: Jovanna Spence - Fully Assessed Reason for Visit: Established Patient [175] Primary Visit Diagnosis:Moderate persistent asthma without complication [J45.40] Other Visit Diagnoses:THONY (obstructive sleep apnea) [G47.33] Gastroesophageal reflux disease, esophagitis presence not specified [K21.9] Idiopathic anaphylaxis, subsequent encounter [T78.2XXD] Order(s):albuterol HFA (PROAIR HFA) 90 mcg/actuation inhalerInhale 2 Puffs as instructed every 6 hours as needed for Wheezing/Shortness of Breath.Disp: 1 InhalerRfl: 5 fluticasone-vilanterol (BREO ELLIPTA) 100-25 mcg/dose inhalerInhale 1 Inhalation as instructed once daily.Disp: 1 EachRfl: 5 levalbuterol (XOPENEX) 1.25 mg/3 mL nebulizer solutionUse 1 Ampule via nebulizer every 4 hours as needed. Inhale over 5-15 minutesDisp: 300 AmpuleRfl: 3 fluticasone (FLONASE) 50 mcg/actuation nasal spray1- 2 sprays each side qdDisp: 3 BottleRfl: 3 budesonide (PULMICORT) 0.5 mg/2 mL nebulizer solutionUse 1 Ampule via nebulizer twice daily.Disp: 60 AmpuleRfl: 6 Azelastine 0.15 % (205.5 mcg) spryUse 1 Wilberforce in each nostril twice daily.Disp: 3 BottleRfl: 3 COMPOUNDED PRESCRIPTIONNocturnal oximetry on room air. [facility] EachRfl: 0 Prescriptions as of 07/06/2017 Sig: NITROGLYCERIN 0.4 MG SUBLINGU* DISSOLVE 1 TABLET UNDER THE T* ALBUTEROL SULFATE HFA 90 MCG/* Inhale 2 Puffs as instructed * FLUTICASONE 100 MCG-VILANTERO* Inhale 1 Inhalation as instru* LEVALBUTEROL 1.25 MG/3 ML BRENDA* Use 1 Ampule via nebulizer ev* FLUTICASONE 50 MCG/ACTUATION * 1-2 sprays each side qd BUDESONIDE 0.5 MG/2 ML SUSPEN* Use 1 Ampule via nebulizer tw* AZELASTINE 0.15 % (205.5 MCG)* Use 1 Wilberforce in each nostril t* CHOLESTYRAMINE (WITH SUGAR) 4* Take 1 scoop by mouth once da* PREGABALIN 150 MG CAPSULE Take 1 capsule by mouth twice* AMLODIPINE 10 MG TABLET Take 0.5 tablets by mouth onc* CYANOCOBALAMIN (VIT B-12) 1,0* Take 1 tablet by mouth once d* ATENOLOL 25 MG TABLET Take 1 tablet by mouth once d* EPINEPHRINE 0.3 MG/0.3 ML INJ* Inject 0.3 mL intramuscularly* PREDNISONE 10 MG TABLET Take 2.5 tablets by mouth onc* Patient taking differently: Take 25 mg by mouth once mary ellen* ERGOCALCIFEROL (VITAMIN D2) 5* Take 1 capsule by mouth once * Patient taking differently: Take 50,000 Units by mouth on* CRISABOROLE 2 % TOPICAL OINTM* Apply to the hands twice daily CETIRIZINE 10 MG TABLET Take 10 mg by mouth once mary ellen* PIMECROLIMUS 1 % TOPICAL CREAM Apply twice daily to the hands SPIRONOLACTONE 50 MG TABLET Take 1 tablet by mouth twice * ONDANSETRON HCL 4 MG TABLET Take 1 tablet by mouth every * BUMETANIDE 0.5 MG TABLET Take 1 tablet by mouth once d* LANSOPRAZOLE 30 MG CAPSULE,DE* Take 1 capsule by mouth twice* LACTOBACILLUS RHAMNOSUS GG 10* Take 1 capsule by mouth twice* FAMOTIDINE 20 MG TABLET Take 1 tablet by mouth twice * Patient taking differently: Take 20 mg by mouth twice liam* DIPHENHYDRAMINE 50 MG CAPSULE Take 1 capsule by mouth every* AMOXICILLIN 250 MG CAPSULE Take 250 mg by mouth once liam* ZAFIRLUKAST 20 MG TABLET Take 1 tablet by mouth twice * DOXAZOSIN 2 MG TABLET Take 2 mg by mouth once daily. CYCLOSPORINE MODIFIED 50 MG C* Take 50 mg by mouth twice liam* COMPOUNDED PRESCRIPTION Nocturnal oximetry on room ai* TURMERIC ROOT EXTRACT ORAL Take 1 tablet by mouth twice * COMPOUNDED PRESCRIPTION Please provide patient with n* BENZONATATE 200 MG CAPSULE Take 200 mg by mouth three ti* ASCORBIC ACID (VITAMIN C) 500* Take 1 tablet by mouth once d* Problem List As Of Date 07/06/2017 Noted Resolved JOINT PAIN-ANKLE [M25.579] INVALID FOR*03/20/2014 Edema [R60.9] INVALID FOR*03/28/2016 Priority: I Adrenal nodule (HCC) [E27.9] INVALID FOR* More... Diarrhea [R19.7] INVALID FOR*10/15/2013 Excessive or frequent menstruation [N92.0] INVALID FOR*07/14/2011 Shortness of breath [R06.02] INVALID FOR*10/15/2013 Palpitations [R00.2] INVALID FOR*03/20/2014 Tachycardia, unspecified [R00.0] INVALID FOR*10/15/2013 More... Open wound site NOS [T14.8XXA] INVALID FOR*07/16/2011 Abdominal pain, right upper quadrant [R10.11] INVALID FOR*07/14/2011 More... Acute gastritis without mention of hemorrhage [*INVALID FOR*10/15/2013 Hematuria [599.7] INVALID FOR*07/14/2011 URGE INCONTINENCE [N39.41] INVALID FOR* FEMALE STRESS INCONTINENCE [N39.3] INVALID FOR* Scar, hypertrophic [L91.0] INVALID FOR*10/15/2013 Ovarian cyst [N83.209] INVALID FOR*07/06/2010 Cyst INVALID FOR*10/15/2013 Other specified pre-operative examination [Z01.*INVALID FOR*07/16/2011 Hirsutism [L68.0] INVALID FOR* Dysphagia [R13.10] INVALID FOR*03/20/2014 GERD (gastroesophageal reflux disease) [K21.9] INVALID FOR* Priority: D More... 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 Obesity (BMI 30.0-34.9) [E66.9] INVALID FOR* More... More... More... More... Idiopathic anaphylaxis [T78.2XXA] INVALID FOR* Priority: A More... Urticaria, idiopathic [L50.1] INVALID FOR*03/28/2016 More... Hyperlipidemia [E78.5] INVALID FOR* Impaired fasting glucose [R73.01] INVALID FOR* Recurrent chest pain [R07.9, G89.29] INVALID FOR*12/09/2014 Multinodular goiter [E04.2] INVALID FOR* More... CKD (chronic kidney disease) stage 3, GFR 30-59*INVALID FOR* Pain in joint, ankle and foot [M25.579] INVALID FOR*12/09/2014 More... More... Steroid-induced hyperglycemia [R73.9, T38.0X5A] INVALID FOR*03/28/2016 Priority: C Moderate persistent asthma without complication*INVALID FOR* Ulcerative colitis without complications (HCC) *INVALID FOR* Anaphylaxis [T78.2XXA] INVALID FOR*03/26/2015 More... Neck pain, bilateral [M54.2] INVALID FOR*03/28/2016 Essential hypertension with goal blood pressure*INVALID FOR*03/28/2016 Chronic nausea [R11.0] INVALID FOR* Lumbar radiculitis [M54.16] INVALID FOR*03/28/2016 Lumbar stenosis [M48.061] INVALID FOR*03/28/2016 Acquired spondylolisthesis [M43.10] INVALID FOR*03/28/2016 Cervical radiculitis [M54.12] INVALID FOR*03/28/2016 Cervical spondylosis with radiculopathy [M47.22]INVALID FOR*03/29/2017 Shoulder impingement [M75.40] INVALID FOR*03/28/2016 Anaphylaxis [T78.2XXA] INVALID FOR*03/28/2016 Tendonitis, tibialis [M76.829] INVALID FOR*05/09/2016 Lumbar stenosis [M48.061] INVALID FOR* Cervical radiculitis [M54.12] INVALID FOR*03/29/2017 Cervical herniated disc [M50.20] INVALID FOR*03/29/2017 Cervical stenosis of spine [M48.02] INVALID FOR* Cervical spondylosis with myelopathy [M47.12] INVALID FOR*03/29/2017 Cervical myelopathy (HCC) [G95.9] INVALID FOR*03/29/2017 Claustrophobia [F40.240] INVALID FOR* Ptosis of eyelid, bilateral [H02.403] INVALID FOR*03/29/2017 More... Lumbar spondylosis [M47.816] INVALID FOR* More... Preop testing [Z01.818] INVALID FOR* More... Anaphylaxis [T78.2XXA] INVALID FOR* Essential hypertension [I10] INVALID FOR* Other instructions from your clinician: Severe-persistent asthma, symptomatically not as well controlled today. This may be due to the change in season we are experiencing. Nitric oxide stable today. Continue therapies as prescribed. - Nebulized treatment four times daily with Budesonide twice daily. - Xopenex four times daily. - Nocturnal oximetry on room air. Will send order to [facility]. THONY. - Unable to wear CPAP secondary to allergy. - Will obtain nocturnal oximetry. Prescriptions ordered this encounter Disp Refills Start End ALBUTEROL SULFATE HFA 90 MCG/ACTUATI* 1 In* 5 07/06/2017 Route: INHALATION Sig: Inhale 2 Puffs as instructed every 6 hours as needed for Wheezing/Shortness of Breath. FLUTICASONE 100 MCG-VILANTEROL 25 MC* 1 Ea* 5 07/06/2017 Route: INHALATION Sig: Inhale 1 Inhalation as instructed once daily. LEVALBUTEROL 1.25 MG/3 ML SOLUTION F* 300 * 3 07/06/2017 Route: NEBULIZATION Sig: Use 1 Ampule via nebulizer every 4 hours as needed. Inhale over 5-15 minutes FLUTICASONE 50 MCG/ACTUATION NASAL S* 3 Kavon* 3 07/06/2017 Si-2 sprays each side qd BUDESONIDE 0.5 MG/2 ML SUSPENSION FO* 60 A* 6 07/06/2017 Route: NEBULIZATION Sig: Use 1 Ampule via nebulizer twice daily. AZELASTINE 0.15 % (205.5 MCG) NASAL * 3 Kavon* 3 07/06/2017 Route: EACH NOSTRIL Sig: Use 1 Wilberforce in each nostril twice daily. COMPOUNDED PRESCRIPTION 1 Ea* 0 07/06/2017 Class: Print RX Sig: Nocturnal oximetry on room air. DME: [facility] Medications Discontinued During This Encounter levalbuterol tartrate HFA (XOPENEX H* 3 In* 3 05/08/2017 07/06/2017 Route: INHALATION Sig: Inhale 1-2 Puffs as instructed every 6 hours as needed for Wheezing/Shortness of Breath. Disc: Reason for discontinue is not on file. fluticasone-vilanterol (BREO ELLIPTA* 07/06/2017 Class: Historical Med Route: INHALATION Sig: Inhale 1 Inhalation as instructed once daily. Disc: Reason for discontinue is not on file. levalbuterol (XOPENEX) 1.25 mg/3 mL * 300 * 3 06/27/2016 07/06/2017 Route: NEBULIZATION -UNSPEC Sig: Use 1 Ampule via nebulizer every 4 hours as needed. Inhale over 5-15 minutes Disc: Reason for discontinue is not on file. fluticasone (FLONASE) 50 mcg/actuati* 3 Kavon* 3 06/27/2016 07/06/2017 Si-2 sprays each side qd Disc: Reason for discontinue is not on file. budesonide (PULMICORT) 0.5 mg/2 mL n* 60 A* 6 12/20/2016 07/06/2017 Route: NEBULIZATION -UNSPEC Sig: Use 1 Ampule via nebulizer twice daily. Disc: Reason for discontinue is not on file. Azelastine 0.15 % (205.5 mcg) spry 3 Kavon* 3 06/27/2016 07/06/2017 Route: EACH NOSTRIL Sig: Use 1 Wilberforce in each nostril twice daily. Disc: Reason for discontinue is not on file. Disposition: Return in about 3 months (around 10/06/2017). 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 Since the last Pulmonary Clinic visit, the patient has required no ED visits or hospitalizations, for management of exacerbations. The patient has been compliant with therapy recommended at the last visit. Variable cough. Occasional clear sputum. No hemoptysis. Left sided chest pain since surgery in 10/2016. Not relieved by nitroglycerin or rest. Not exacerbated with deep breaths or coughing. Patient reports it is random when it occurs. Occasional wheezing with environmental exposures. Especially with perfumes/colognes or smoking. Exertional dyspnea. I can now only climb one set of stairs without stopping. No nocturnal awakenings. 3 times daily nebulized treatments daily. No disruption in taste or voice associated with use of inhaled corticosteroid. No tremor, palpitations, or muscle cramping associated with bronchodilator inhalation. PMH: Reviewed with patient today. No changes. FAMH: Reviewed with patient today. No changes. SOCH: No changes. ROS: General: Generally feels good. Appetite good. Weight gain without change in eating and exercising. Eyes, Ears, nose, throat: No post nasal drip, rhinorrhea, purulent nasal discharge, epistaxis, hoarseness. Vision stable. Cardiac: No angina, orthopnea. Lower extremity edema for years. Chest pain, see HPI. GI: No heartburn, dysphagia, diarrhea. 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 Musculoskeletal: No pain. Neuro: No headache, focal weakness, tremor. Skin: No rash. Otherwise negative. Immunization History Administered Date(s) Administered Influenza Vaccine, Split-Non Spec 2006 02/20/2008 01/15/2009 01/19/2010 01/22/2011 03/15/2012 Pneumovax 06/27/2008 Deferred Date(s) Deferred Tdap (Age 7+) 06/19/2014 Allergies were verified and updated, and medications were reconciled with the patient at this visit. PHYSICAL EXAMINATION: BP 138/78 Pulse 107 Resp 16 Wt 211 lb (95.7kg) SpO2 98% LMP 08/07/2013 Gen: No acute distress. Cooperative with examination. ENT: Sclerae clear. EOMI. Nares clear. Oral hygeine/dentition good. Pharynx clear. No sign of oral thrush. Resp: No stridor, accessory respiratory muscle use, supra- sternal or intercostal retractions. No crackles, wheezes, rubs. CV: Regular rythm. Heart tones normal. Radial pulses normal. Abd: Non distended. MSK: No kyphoscoliosis, joint deformities. No tenderness with palpation on chest wall. Ext: Warm and well perfused. No clubbing, cyanosis. Bilateral lower extremity edema. Skin: Color normal. Texture normal. No rash, eczema, urticaria. Neuro: Mental status normal. Affect normal. Muscle tone normal. No tremor. DATA REVIEW: Exhaled nitric oxide (Martha), 07/06/17: 34 04/07/17: 37 (normal < 25). DATE: 04/07/17 11/01/16 04/30/15 08/27/14 FVC 2.39 (76 % pred) 2.65?(80?% pred) 2.50?(78?% pred) 2.59?(77?% pred) FEV1 1.96 (80 % pred) 2.03?(79?% pred) 1.97?(79?% pred) 2.05?(78?% pred) FEV1/FVC 0.82 0.77 0.79 0.79 ? IMPRESSION and RECOMMENDATIONS: Severe-persistent asthma, symptomatically not as well controlled today. This may be due to the change in season we are experiencing. Nitric oxide stable today. Continue therapies as prescribed. - Nebulized treatment four times daily with Budesonide twice daily. - Xopenex four times daily. - Nocturnal oximetry on room air. Will send order to [facility]. THONY. - Unable to wear CPAP secondary to allergy. - Will obtain nocturnal oximetry. - I reviewed the pathophysiology of asthma, NIH guidelines for evaluation and management, and mechanisms of action and side effects of medical therapy (ICS, bronchodilators) with the patient. I addressed the questions of the patient, and she expressed understanding and acceptance of my answers. Jovanna Spence PA-C [facility] [place] [address] [phone] [facility] Observed: 07/02/2017 Status: COMPLETED Source: [place] 12:00 AM [facility] REPOSITORY Telephone (GASTMN) RALPH JOSHI ([id number]) 1955 F Date Time Provider Department 07/02/17 CELESTINE FERNÁNDEZ GASTLA During your visit today, we recorded the following information about you: Celestine Fernández MD 07/02/2017 5:18 PM Signed Inform EGD polyp biopsy is benign. F/U with primary. OV me 1 yr. MARIYA OJEDA LPN, RADHA 07/03/2017 9:25 AM Signed patient stated she came to you for stomach pains and wants to follow what you found as far as the stomach pains? Patient wants to know where to go from here as far as that problem? RADHA SAMUELS MD 07/03/2017 5:52 PM Signed Our studies are nl. The best thing would be an abd ct or MRI. Is she willing to take the allergic risk. Can she do this if premedicated. Let me know. MARIYA OJEDA LPN, RADHA 07/04/2017 3:53 PM Signed I spoke with the patient and relayed message from provider .patient stated she wants to speak with her clerical investigator and will call back if she decides to get the tests ordered. MARIYA OJEDA LPN Allergies As of Date: 07/02/2017 Noted Allergy Reaction AVOCADO 09/10/2014 10 - Anaphylaxis BANANA 09/10/2014 10 - Anaphylaxis CARBINOXAMINE 09/17/2012 10 - Anaphylaxis YOSELIN SEED 08/28/2013 10 - Anaphylaxis CIPROFLOXACIN 04/11/2014 10 - Anaphylaxis CODEINE 01/12/2012 10 - Anaphylaxis CONTRAST DYE 05/17/2013 10 - Anaphylaxis Comments: To MRI and CT FISH 09/07/2014 10 - Anaphylaxis HYCODAN (HYDROCODONE-HOMATROPINE) 09/08/2011 10 - Anaphylaxis Comments: Face and throat swelling LATEX 01/21/2014 10 - Anaphylaxis IMTIAZ-SYNEPHRINE (PHENYLEPHRINE HCL)09/04/2014 10 - Anaphylaxis Comments: 10% eye drop NICKEL 01/07/2014 2 - Rash 4 - Hives 10 - Anaphylaxis NSAIDS (NON-STEROIDAL ANTI-INFLAM*08/16/2010 14 - Other: See Comments Comments: Kidney function drops; reversible kidney damage. OXYCODONE 08/28/2013 10 - Anaphylaxis PERIACTIN (CYPROHEPTADINE) 09/17/2012 10 - Anaphylaxis PNEUMOCOCCAL VACCINE 10/31/2014 10 - Anaphylaxis SHELLFISH 09/07/2014 10 - Anaphylaxis ZANTAC (RANITIDINE) 09/17/2012 10 - Anaphylaxis ATIVAN (LORAZEPAM) 08/28/2013 14 - Other: See Comments Comments: hallucination BEEF CONTAINING PRODUCTS 09/10/2014 2 - Rash CORN 05/03/2011 14 - Other: See Comments Comments: Feels like an asthma attack. EGGS (EGG) 03/08/2011 2 - Rash 11 - Vomiting EKG LEADS (ADHESIVE) 10/22/2012 2 - Rash Comments: Localized,only under the leads INFLUENZA VIRUS VACCINES 10/22/2012 12 - Shortness of Breath LISINOPRIL 04/20/2004 3 - Cough MILK 03/08/2011 2 - Rash 11 - Vomiting MOMETASONE 04/05/2017 10 - Anaphylaxis Comments: Per Dr. Salas she tolerates formoterol (on Breo at home) but is allergic to mometasone. Okayed by him to update. XOLAIR (OMALIZUMAB) 04/19/2012 12 - Shortness of Breath environmental [Other] 06/26/2007 14 - Other: See Comments Comments: Nasal congestion, brings on an asthma attack. surgical tape [Other] 11/10/2009 2 - Rash 7 - Swelling Comments: Oral rash, swelling of eyes, asthma attacks; per pateint report. Date Reviewed: 06/27/2017 Reviewed by: Annie Glover Ma - Fully Assessed Reason for Visit: Results [95] Prescriptions as of 07/02/2017 Sig: PREGABALIN 150 MG CAPSULE Take 1 capsule by mouth twice* AMLODIPINE 10 MG TABLET Take 0.5 tablets by mouth onc* CYANOCOBALAMIN (VIT B-12) 1,0* Take 1 tablet by mouth once d* ATENOLOL 25 MG TABLET Take 1 tablet by mouth once d* LEVALBUTEROL HFA 45 MCG/ACTUA* Inhale 1-2 Puffs as instructe* EPINEPHRINE 0.3 MG/0.3 ML INJ* Inject 0.3 mL intramuscularly* PREDNISONE 10 MG TABLET Take 2.5 tablets by mouth onc* Patient taking differently: Take 25 mg by mouth once mary ellen* ERGOCALCIFEROL (VITAMIN D2) 5* Take 1 capsule by mouth once * Patient taking differently: Take 50,000 Units by mouth on* TURMERIC ROOT EXTRACT ORAL Take 1 tablet by mouth twice * NITROGLYCERIN 0.4 MG SUBLINGU* DISSOLVE 1 TABLET UNDER THE T* BUDESONIDE 0.5 MG/2 ML SUSPEN* Use 1 Ampule via nebulizer tw* CRISABOROLE 2 % TOPICAL OINTM* Apply to the hands twice daily COMPOUNDED PRESCRIPTION Please provide patient with n* FLUTICASONE 100 MCG-VILANTERO* Inhale 1 Inhalation as instru* CETIRIZINE 10 MG TABLET Take 10 mg by mouth once mary ellen* PIMECROLIMUS 1 % TOPICAL CREAM Apply twice daily to the hands SPIRONOLACTONE 50 MG TABLET Take 1 tablet by mouth twice * ONDANSETRON HCL 4 MG TABLET Take 1 tablet by mouth every * BUMETANIDE 0.5 MG TABLET Take 1 tablet by mouth once d* LANSOPRAZOLE 30 MG CAPSULE,DE* Take 1 capsule by mouth twice* AZELASTINE 0.15 % (205.5 MCG)* Use 1 Wilberforce in each nostril t* LEVALBUTEROL 1.25 MG/3 ML BRENDA* Use 1 Ampule via nebulizer ev* FLUTICASONE 50 MCG/ACTUATION * 1-2 sprays each side qd X CHOLESTYRAMINE (BULK) POWDER Take 1 scoop by mouth once da* BENZONATATE 200 MG CAPSULE Take 200 mg by mouth three ti* LACTOBACILLUS RHAMNOSUS GG 10* Take 1 capsule by mouth twice* FAMOTIDINE 20 MG TABLET Take 1 tablet by mouth twice * Patient taking differently: Take 20 mg by mouth twice liam* DIPHENHYDRAMINE 50 MG CAPSULE Take 1 capsule by mouth every* AMOXICILLIN 250 MG CAPSULE Take 250 mg by mouth once liam* ZAFIRLUKAST 20 MG TABLET Take 1 tablet by mouth twice * DOXAZOSIN 2 MG TABLET Take 2 mg by mouth once daily. CYCLOSPORINE MODIFIED 50 MG C* Take 50 mg by mouth twice liam* ASCORBIC ACID (VITAMIN C) 500* Take 1 tablet by mouth once d* Problem List As Of Date 07/02/2017 Noted Resolved JOINT PAIN-ANKLE [M25.579] INVALID FOR*03/20/2014 Edema [R60.9] INVALID FOR*03/28/2016 Priority: I Adrenal nodule (HCC) [E27.9] INVALID FOR* More... Diarrhea [R19.7] INVALID FOR*10/15/2013 Excessive or frequent menstruation [N92.0] INVALID FOR*07/14/2011 Shortness of breath [R06.02] INVALID FOR*10/15/2013 Palpitations [R00.2] INVALID FOR*03/20/2014 Tachycardia, unspecified [R00.0] INVALID FOR*10/15/2013 More... Open wound site NOS [T14.8XXA] INVALID FOR*07/16/2011 Abdominal pain, right upper quadrant [R10.11] INVALID FOR*07/14/2011 More... Acute gastritis without mention of hemorrhage [*INVALID FOR*10/15/2013 Hematuria [599.7] INVALID FOR*07/14/2011 URGE INCONTINENCE [N39.41] INVALID FOR* FEMALE STRESS INCONTINENCE [N39.3] INVALID FOR* Scar, hypertrophic [L91.0] INVALID FOR*10/15/2013 Ovarian cyst [N83.209] INVALID FOR*07/06/2010 Cyst INVALID FOR*10/15/2013 Other specified pre-operative examination [Z01.*INVALID FOR*07/16/2011 Hirsutism [L68.0] INVALID FOR* Dysphagia [R13.10] INVALID FOR*03/20/2014 GERD (gastroesophageal reflux disease) [K21.9] INVALID FOR* Priority: D More... 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 Obesity (BMI 30.0-34.9) [E66.9] INVALID FOR* More... More... More... More... Idiopathic anaphylaxis [T78.2XXA] INVALID FOR* Priority: A More... Urticaria, idiopathic [L50.1] INVALID FOR*03/28/2016 More... Hyperlipidemia [E78.5] INVALID FOR* Impaired fasting glucose [R73.01] INVALID FOR* Recurrent chest pain [R07.9, G89.29] INVALID FOR*12/09/2014 Multinodular goiter [E04.2] INVALID FOR* More... CKD (chronic kidney disease) stage 3, GFR 30-59*INVALID FOR* Pain in joint, ankle and foot [M25.579] INVALID FOR*12/09/2014 More... More... Steroid-induced hyperglycemia [R73.9, T38.0X5A] INVALID FOR*03/28/2016 Priority: C Moderate persistent asthma without complication*INVALID FOR* Ulcerative colitis without complications (HCC) *INVALID FOR* Anaphylaxis [T78.2XXA] INVALID FOR*03/26/2015 More... Neck pain, bilateral [M54.2] INVALID FOR*03/28/2016 Essential hypertension with goal blood pressure*INVALID FOR*03/28/2016 Chronic nausea [R11.0] INVALID FOR* Lumbar radiculitis [M54.16] INVALID FOR*03/28/2016 Lumbar stenosis [M48.061] INVALID FOR*03/28/2016 Acquired spondylolisthesis [M43.10] INVALID FOR*03/28/2016 Cervical radiculitis [M54.12] INVALID FOR*03/28/2016 Cervical spondylosis with radiculopathy [M47.22]INVALID FOR*03/29/2017 Shoulder impingement [M75.40] INVALID FOR*03/28/2016 Anaphylaxis [T78.2XXA] INVALID FOR*03/28/2016 Tendonitis, tibialis [M76.829] INVALID FOR*05/09/2016 Lumbar stenosis [M48.061] INVALID FOR* Cervical radiculitis [M54.12] INVALID FOR*03/29/2017 Cervical herniated disc [M50.20] INVALID FOR*03/29/2017 Cervical stenosis of spine [M48.02] INVALID FOR* Cervical spondylosis with myelopathy [M47.12] INVALID FOR*03/29/2017 Cervical myelopathy (HCC) [G95.9] INVALID FOR*03/29/2017 Claustrophobia [F40.240] INVALID FOR* Ptosis of eyelid, bilateral [H02.403] INVALID FOR*03/29/2017 More... Lumbar spondylosis [M47.816] INVALID FOR* More... Preop testing [Z01.818] INVALID FOR* More... Anaphylaxis [T78.2XXA] INVALID FOR* Essential hypertension [I10] INVALID FOR* Encounter Status:Closed by MARIYA OJEDA on 07/03/17 PROGRESS Observed: 06/27/2017 Status: COMPLETED Source: [place] 8:08 AM [facility] [place] REPOSITORY HNO ID: [id number] Author: Abelino (Criminal Investigator Customs) Robert Service: (none) Author Type: Nurse Practitioner Type: Progress Notes Filed: 06/27/2017 1:20 PM Note Text: SPINE CARE PATH LOW BACK PAIN: CHRONIC FOLLOW UP SUBJECTIVE HISTORY OF PRESENT ILLNESS: Reason for Visit: chronic low back/legs Ralph Joshi is seen for chronic low back, BL legs. Legs are around 80%. Rates total pain today as 3/10, with decreasing from lyrica and injections. Denies side effects from lyrica use, sometimes sleepiness, Pain increases with walking, sitting, standing. Describes sometimes L knee feels like it gives out. Denies issues with sleep/mood. Requesting to complete another injection. PED RED FLAGS YELLOW AND BLUE FLAGS No-Significant Injury to Spine No-Use of Steroids for Prolonged Duration YES-Loss of Bowel/Bladder Control, Genital/Anal Numbness No-Recent Use of Intravenous (IV) Drugs YES-Difficulty Keeping Balance when Walking YES-Progressive Weakness in Arms/Legs No-History of Any Type of Cancer No-Unable to Find Position of Comfort No-Pain at Night that Disturbs Sleep No-Recent Elevated Temp with Unknown Cause No-Diagnosed with Osteoporosis No-Unintentional Weight Loss or Gain No-Neg Attitude; Back Pain is Disabling No-Avoiding Activity (for Fear of Pain) No-Depression or Anxiety Disorders No-Social Problems No-Substance Use Disorder No-Job Dissatisfaction No-Financial Disincentives *PED (Patient Entered Data) osteoporosis flag will display for females 55 years or older and males 75 years or older. ACTIVE PROBLEM LIST Adrenal Nodule (Hcc) Urge Incontinence Female Stress Incontinence Hirsutism Gerd (Gastroesophageal Reflux Disease) THONY (obstructive sleep apnea) Obesity (Bmi 30.0-34.9) Idiopathic anaphylaxis Hyperlipidemia Impaired Fasting Glucose Multinodular Goiter CKD (chronic kidney disease) stage 3, GFR 30-59 ml/min (HCC) Moderate Persistent Asthma Without Complication Ulcerative Colitis Without Complications (Hcc) Chronic Nausea Lumbar Stenosis Cervical Stenosis of Spine Claustrophobia Lumbar Spondylosis Preop Testing Anaphylaxis Essential Hypertension PAST MEDICAL HISTORY Diagnosis Date - Abdominal pain, other specified site - ACNE NEC 01/21/2008 - Actinic Keratosis (Premalignant AK) 06/05/2011 - ACUTE GASTRITIS W/O HEMORRHAGE 04/26/2007 - Allergic rhinitis 04/23/2012 - Anaphylactic reaction ideopathic - Benign tumor of adrenal gland - Biliary dyskinesia 10/29/2009 - Cervical herniated disc 10/20/2016 - Cervical myelopathy (HCC) 10/25/2016 - Cervical radiculitis 10/20/2016 - Cervical spondylosis with radiculopathy 11/17/2015 - JAIN ANGIOMA///NEVUS, NON-NEOPLASTIC 05/28/2007 - CKD (chronic kidney disease) stage 3, GFR 30-59 ml/min 04/29/2013 - Diaphragmatic hernia without mention of obstruction or gangrene 05/25/2011 - Diverticulosis of colon (without mention of hemorrhage) - Edema 07/07/2004 - Epigastric pain - GERD (gastroesophageal reflux disease) - HTN (hypertension) 2002 controlled on Diovan - Hyperlipidemia 10/15/2013 - IRON DEFIC ANEMIA NOS 04/26/2007 - Moderate persistent asthma without complication 02/18/2015 - Ovarian cyst Benign ovarian cyst, S/P laparoscopic LSO - Ptosis of eyelid, bilateral 12/23/2016 Added automatically from request for surgery [id number] - Shoulder impingement 11/17/2015 - Sleep apnea intollerant to CPAP because allergic to material on mask - Steroid-induced hyperglycemia 09/06/2014 - TACHYCARDIA NOS 01/09/2006 - Tarsal tunnel syndrome 12/23/2009 - Tear of lateral meniscus of knee 02/21/2014 - Ulcerative colitis, unspecified - UTERINE LEIOMYOMA NOS 12/23/2005 - VIRAL WARTS NOS 05/09/2006 - Vocal cord dysfunction PAST SURGICAL HISTORY Procedure Laterality Date - CHOLECYSTECTOMY HX - COLONOSCOP W/ OR W/O [facility] SPEC 09/06/2005 Colonoscopy - COLONOSCOP W/ OR W/O [facility] SPEC Colonoscopy - COLONOSCOP W/ OR W/O [facility] SPEC 05/28/2012 Colonoscopy repeat 5 years. - EGD 07/29/14 normal - EGD W/O OR W/BRUSH/WASH 09/06/2005 EGD - EGD W/O OR W/BRUSH/WASH 04/26/2007 EGD - EGD W/O OR W/BRUSH/WASH 05/25/2011 EGD - EGD W/O OR W/BRUSH/WASH 05/28/2012 EGD - L'SCOPE REM ADNEX W/PART/TOT OOPH/SALP 06/11/2009 Laparoscopic LSO for benign ovarian cyst - LAMINECTOMY,CERVICAL 10/2016 - LAP CHOLECYSTECT/CHOLANGIOGRAPHY 10/30/09 Normal IOC - ORTHOPEDICS SURGERY HX 12/2013 repaired Rt achilles tendon - PAST SURGICAL HISTORY OF 09/19 left foot surgery on heel and repaired torn tdndon - SIGMOIDOSCOPY FLEX DIAG 05/20/08 - TARSAL TUNNEL RELEASE 07/2010 Left foot Social History Marital status: Spouse name: Ezio Years of education: 14 Number of children: 3 Occupational History 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 Alive at 85. - Hypertension Father Alive at 85. - Cataract Father Alive at 85. - Thyroid Father Alive at 85. - Heart Father [place] at 87 - Diabetes Mother colon polyps. age 72. - Hypertension Mother age 72. - benign brainstem tumor [OTHER] Mother Persistent vegetative state. age 72. - defects Sister - Glaucoma Maternal Grandmother - Stroke Maternal Grandfather - Cancer Paternal Grandmother cervical - Colon Cancer Son 38 colon and rectal cancer - Breast Cancer Sister Developed in late 20s. Alive at 52. - Osteoporosis Sister - colon polyps [OTHER] Sister 3 sisters with colon polyps ALLERGIES Allergen Reactions - Avocado Anaphylaxis - Banana Anaphylaxis - Carbinoxamine Anaphylaxis - Yoselin Seed Anaphylaxis - Ciprofloxacin Anaphylaxis - Codeine Anaphylaxis - Contrast Dye Anaphylaxis To MRI and CT - Fish Anaphylaxis - Hycodan [Hydrocodon* Anaphylaxis Face and throat swelling - Latex Anaphylaxis - Imtiaz-Synephrine [Phe* Anaphylaxis 10% eye drop - Nickel Rash, Hives, Anaphylaxis - Nsaids (Non-Steroid* Other: See Comments Kidney function drops; reversible kidney damage. - Oxycodone Anaphylaxis - Periactin [Cyprohep* Anaphylaxis - Pneumococcal Vaccine Anaphylaxis - Shellfish Anaphylaxis - Zantac [Ranitidine] Anaphylaxis - Ativan [Lorazepam] Other: See Comments hallucination - Beef Containing Pro* Rash - Berino Other: See Comments Feels like an asthma attack. - Eggs [Egg] Rash, Vomiting - Ekg Leads [Adhesive] Rash Localized,only under the leads - Influenza Virus Vac* Shortness of Breath - Lisinopril Cough - Milk Rash, Vomiting - Mometasone Anaphylaxis Per Dr. Salas she tolerates formoterol (on Breo at home) but is allergic to mometasone. Okayed by him to update. - Xolair [Omalizumab] Shortness of Breath - Environmental [Othe* Other: See Comments Nasal congestion, brings on an asthma attack. - Surgical Tape [Othe* Rash, Swelling Oral rash, swelling of eyes, asthma attacks; per pateint report. CURRENT MEDICATIONS: amLODIPine (NORVASC) 10 mg tablet Take 0.5 tablets by mouth once daily. cyanocobalamin (VITAMIN B-12) 1,000 mcg tab Take 1 tablet by mouth once daily. atenolol (TENORMIN) 25 mg tablet Take 1 tablet by mouth once daily. levalbuterol tartrate HFA (XOPENEX HFA) 45 mcg/actuation inhaler Inhale 1-2 Puffs as instructed every 6 hours as needed for Wheezing/Shortness of Breath. EPINEPHrine (EPIPEN) 0.3 mg/0.3 mL auto-injector Inject 0.3 mL intramuscularly as needed. pregabalin (LYRICA) 150 mg capsule Take 1 capsule by mouth twice daily for 181 days. predniSONE (DELTASONE) 10 mg tablet Take 2.5 tablets by mouth once daily. ergocalciferol, vitamin D2, (VITAMIN D) 50,000 unit capsule Take 1 capsule by mouth once each week. TURMERIC ROOT EXTRACT ORAL Take 1 tablet by mouth twice daily. nitroglycerin sublingual (NITROQUICK) 0.4 mg SL tablet DISSOLVE 1 TABLET UNDER THE TONGUE NEEDED FOR CHEST PAIN IF NO RELIEF CALL 911 budesonide (PULMICORT) 0.5 mg/2 mL nebulizer solution Use 1 Ampule via nebulizer twice daily. crisaborole (EUCRISA) 2 % oint Apply to the hands twice daily COMPOUNDED PRESCRIPTION Please provide patient with nebulizer machine and supplies.Diagnosis: Severe Asthma. fluticasone-vilanterol (BREO ELLIPTA) 100-25 mcg/dose inhaler Inhale 1 Inhalation as instructed once daily. cetirizine (ZYRTEC) 10 mg tablet Take 10 mg by mouth once daily. pimecrolimus (ELIDEL) 1 % cream Apply twice daily to the hands spironolactone (ALDACTONE) 50 mg tablet Take 1 tablet by mouth twice daily. ondansetron (ZOFRAN) 4 mg tablet Take 1 tablet by mouth every 8 hours as needed. Cholestyramine, Bulk, powd Take 1 scoop by mouth once daily. bumetanide (BUMEX) 0.5 mg tablet Take 1 tablet by mouth once daily. lansoprazole (PREVACID) 30 mg capsule Take 1 capsule by mouth twice daily. Azelastine 0.15 % (205.5 mcg) spry Use 1 Wilberforce in each nostril twice daily. levalbuterol (XOPENEX) 1.25 mg/3 mL nebulizer solution Use 1 Ampule via nebulizer every 4 hours as needed. Inhale over 5-15 minutes fluticasone (FLONASE) 50 mcg/actuation nasal spray 1-2 sprays each side qd Benzonatate 200 mg capsule Take 200 mg by mouth three times daily as needed for Cough. lactobacillus rhamnosus (CULTURELLE) 10 billion cell capsule Take 1 capsule by mouth twice daily. famotidine (PEPCID) 20 mg tablet Take 1 tablet by mouth twice daily. diphenhydrAMINE (BENADRYL) 50 mg capsule Take 1 capsule by mouth every 6 hours as needed for Itching/Rash. amoxicillin (POLYMOX, AMOXIL) 250 mg capsule Take 250 mg by mouth once daily. zafirlukast (ACCOLATE) 20 mg tablet Take 1 tablet by mouth twice daily. doxazosin (CARDURA) 2 mg tablet Take 2 mg by mouth once daily. cycloSPORINE Modified 50 mg capsule Take 50 mg by mouth twice daily. ascorbic acid (VITAMIN C) 500 mg tablet Take 1 tablet by mouth once daily. REVIEW OF SYSTEMS: OBJECTIVE PHYSICAL EXAM: Temp 36.6 ?C (97.9 ?F) (Oral) Ht 162.6 cm (5' 4) Wt 93 kg (205 lb) LMP 08/07/2013 BMI 35.19 kg/m2 GENERAL APPEARANCE: Moderately obese. NEURO PSYCH: Patient oriented to person, place, and time. Mood pleasant. Benign affect. CARDIOVASCULAR: Palpable pulses. No edema noted. No varicosities. SKIN: Head, neck, trunk, and extremities dry, intact and without lesions. LYMPHATICS: No palpable nodes in cervical or axillae areas. Groin exam deferred. MUSCULOSKELETAL VISUAL INSPECTION CERVICAL: WNL THORACIC: WNL LUMBAR: WNL PALPATION: SPINOUS PROCESS: No pain. PARASPINALS: No pain. SPINE ROM: LUMBAR ROM: Full ROM Without Pain CERVICAL ROM: Full ROM Without Pain MUSCLE BULK: Normal and symmetrical in the upper AND lower extremities. MUSCLE TONE: Normal. MOTOR: 5/5 in all muscle groups. SENSORY: Normal sensory exam GAIT: Normal. Heel walk, toe walk, duck walk and jump with good strength. REFLEXES: +2 to bilateral U/L extremities. PROPRIOCEPTION: Normal. LONG TRACT SIGNS: No clonus. No Hoffmans. BABINSKI: Downward response STRAIGHT LEG TEST: Ipsilateral: Negative. Contralateral: Negative. PERIPHERAL JOINT ROM: HIP ROM: Full ROM Without Pain SHOULDER ROM: Full ROM Without Pain L'HERMITTES SIGN: Negative on the right. Negative on the left. SPURLING'S TEST: Negative on the right. Negative on the left. Neuro Tests: T12-L1: ?Canal and foramina are patent. L1-L2: ? ?Mild bulging annulus and mild facet degenerative change. ?No canal stenosis. ?Mild right foraminal narrowing. L2-L3: ? ?Bulging annulus and moderate facet degenerative change. ? Moderate canal stenosis. ?Mild bilateral inferior foraminal narrowing. L3-L4: ? ?Bulging annulus and mild to moderate facet degenerative change. ?Severe canal stenosis. ?Moderate right and mild left foraminal narrowing. L4-L5: ? ?Bulging annulus and moderate to severe facet degenerative change. ?Moderate canal stenosis. ?Moderate bilateral foraminal narrowing. L5-S1: ? ?Mild bulging annulus and mild facet degenerative change. ?Mild left inferior foraminal narrowing. ?No canal stenosis or right foraminal narrowing. Sacrum and iliac wings: ? ?The visualized sacrum and iliac wings are within normal limits. ASSESSMENT/PLAN (M48.061) Spinal stenosis of lumbar region without neurogenic claudication (M47.816) Lumbar spondylosis (M54.16) Lumbar radiculitis Comment: 62 year old with returning today requesting injections. Plan: pregabalin (LYRICA) 150 mg capsule, PATIENT PLACED ON SPINE CARE PATH, CANCELED: CONSULT TO SPINE INTERVENTION On further chart review clerical investigator must be consulted first in order to either premedicate due to anaphylaxis side effects last injection. Consider LESI if signed off by clerical investigator, otherwise continue lyrica as prescribed. SIGNATURE: Abelino Mcelroy CNP PATIENT NAME: Ralph Joshi DATE: June 27, 2017 TIME: 8:08 AM PROGRESS Observed: 06/27/2017 Status: COMPLETED Source: [place] 7:58 AM [facility] HNO ID: [id number] Author: Annie Glover Ma Service: (none) Author Type: (none) Type: Progress Notes Filed: 06/27/2017 1:20 PM Note Text: [facility] website checked and validated. All prescriptions have been APPROPRIATELY filled. No suspicious activity was identified.- 06/27/2017 by Annie Glover Ma CNOV Observed: 06/27/2017 Status: COMPLETED Source: [place] 7:40 AM [facility] Office Visit (SPMETW) RALPH JOSHI ([id number]) 1955 F Date Time Provider Department 06/27/17 7:40 AM ABELINO MCELROY (TISHA) SPMETW During your visit today, we recorded the following information about you: Temperature Weight Height 97.9 degrees 93 kg 1.626 m Annie Glover Ma 06/27/2017 1:20 PM Signed [facility] website checked and validated. All prescriptions have been APPROPRIATELY filled. No suspicious activity was identified.- 06/27/2017 by Annie Mcelroy CNP 06/27/2017 1:20 PM Signed SPINE CARE PATH LOW BACK PAIN: CHRONIC FOLLOW UP SUBJECTIVE HISTORY OF PRESENT ILLNESS: Reason for Visit: chronic low back/legs Ralph Joshi is seen for chronic low back, BL legs. Legs are around ANDquot;80%ANDquot;. Rates total pain today as 3/10, with decreasing from lyrica and injections. Denies side effects from lyrica use, sometimes ANDquot;sleepinessANDquot;, Pain increases with walking, sitting, standing. Describes sometimes ANDquot;L knee feels like it gives outANDquot;. Denies issues with sleep/mood. Requesting to complete another injection. PED RED FLAGS YELLOW ANDamp; BLUE FLAGS No-Significant Injury to Spine No-Use of Steroids for Prolonged Duration YES-Loss of Bowel/Bladder Control, Genital/Anal Numbness No-Recent Use of Intravenous (IV) Drugs YES-Difficulty Keeping Balance when Walking YES-Progressive Weakness in Arms/Legs No-History of Any Type of Cancer No-Unable to Find Position of Comfort No-Pain at Night that Disturbs Sleep No-Recent Elevated Temp with Unknown Cause No-Diagnosed with Osteoporosis No-Unintentional Weight Loss or Gain No-Neg Attitude; Back Pain is Disabling No-Avoiding Activity (for Fear of Pain) No-Depression or Anxiety Disorders No-Social Problems No-Substance Use Disorder No-Job Dissatisfaction No-Financial Disincentives *PED (Patient Entered Data) osteoporosis flag will display for females 55 years or older and males 75 years or older. ACTIVE PROBLEM LIST Adrenal Nodule (Hcc) Urge Incontinence Female Stress Incontinence Hirsutism Gerd (Gastroesophageal Reflux Disease) THONY (obstructive sleep apnea) Obesity (Bmi 30.0-34.9) Idiopathic anaphylaxis Hyperlipidemia Impaired Fasting Glucose Multinodular Goiter CKD (chronic kidney disease) stage 3, GFR 30-59 ml/min (HCC) Moderate Persistent Asthma Without Complication Ulcerative Colitis Without Complications (Hcc) Chronic Nausea Lumbar Stenosis Cervical Stenosis of Spine Claustrophobia Lumbar Spondylosis Preop Testing Anaphylaxis Essential Hypertension PAST MEDICAL HISTORY Diagnosis Date - Abdominal pain, other specified site - ACNE NEC 01/21/2008 - Actinic Keratosis (Premalignant AK) 06/05/2011 - ACUTE GASTRITIS W/O HEMORRHAGE 04/26/2007 - Allergic rhinitis 04/23/2012 - Anaphylactic reaction ideopathic - Benign tumor of adrenal gland - Biliary dyskinesia 10/29/2009 - Cervical herniated disc 10/20/2016 - Cervical myelopathy (HCC) 10/25/2016 - Cervical radiculitis 10/20/2016 - Cervical spondylosis with radiculopathy 11/17/2015 - JAIN ANGIOMA///NEVUS, NON-NEOPLASTIC 05/28/2007 - CKD (chronic kidney disease) stage 3, GFR 30-59 ml/min 04/29/2013 - Diaphragmatic hernia without mention of obstruction or gangrene 05/25/2011 - Diverticulosis of colon (without mention of hemorrhage) - Edema 07/07/2004 - Epigastric pain - GERD (gastroesophageal reflux disease) - HTN (hypertension) 2002 controlled on Diovan - Hyperlipidemia 10/15/2013 - IRON DEFIC ANEMIA NOS 04/26/2007 - Moderate persistent asthma without complication 02/18/2015 - Ovarian cyst Benign ovarian cyst, S/P laparoscopic LSO - Ptosis of eyelid, bilateral 12/23/2016 Added automatically from request for surgery [id number] - Shoulder impingement 11/17/2015 - Sleep apnea intollerant to CPAP because allergic to material on mask - Steroid-induced hyperglycemia 09/06/2014 - TACHYCARDIA NOS 01/09/2006 - Tarsal tunnel syndrome 12/23/2009 - Tear of lateral meniscus of knee 02/21/2014 - Ulcerative colitis, unspecified - UTERINE LEIOMYOMA NOS 12/23/2005 - VIRAL WARTS NOS 05/09/2006 - Vocal cord dysfunction PAST SURGICAL HISTORY Procedure Laterality Date - CHOLECYSTECTOMY HX - COLONOSCOP W/ OR W/O [facility] SPEC 09/06/2005 Colonoscopy - COLONOSCOP W/ OR W/O [facility] SPEC Colonoscopy - COLONOSCOP W/ OR W/O [facility] SPEC 05/28/2012 Colonoscopy repeat 5 years. - EGD 07/29/14 normal - EGD W/O OR W/BRUSH/WASH 09/06/2005 EGD - EGD W/O OR W/BRUSH/WASH 04/26/2007 EGD - EGD W/O OR W/BRUSH/WASH 05/25/2011 EGD - EGD W/O OR W/BRUSH/WASH 05/28/2012 EGD - L'SCOPE REM ADNEX W/PART/TOT OOPH/SALP 06/11/2009 Laparoscopic LSO for benign ovarian cyst - LAMINECTOMY,CERVICAL 10/2016 - LAP CHOLECYSTECT/CHOLANGIOGRAPHY 10/30/09 Normal IOC - ORTHOPEDICS SURGERY HX 12/2013 repaired Rt achilles tendon - PAST SURGICAL HISTORY OF 09/19 left foot surgery on heel and repaired torn tdndon - SIGMOIDOSCOPY FLEX DIAG 05/20/08 - TARSAL TUNNEL RELEASE 07/2010 Left foot Social History Marital status: Spouse name: Ezio Years of education: 14 Number of children: 3 Occupational History 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 Alive at 85. - Hypertension Father Alive at 85. - Cataract Father Alive at 85. - Thyroid Father Alive at 85. - Heart Father [place] at 87 - Diabetes Mother colon polyps. age 72. - Hypertension Mother age 72. - benign brainstem tumor [OTHER] Mother Persistent vegetative state. age 72. - defects Sister infant - Glaucoma Maternal Grandmother - Stroke Maternal Grandfather - Cancer Paternal Grandmother cervical - Colon Cancer Son 38 colon and rectal cancer - Breast Cancer Sister Developed in late 20s. Alive at 52. - Osteoporosis Sister - colon polyps [OTHER] Sister 3 sisters with colon polyps ALLERGIES Allergen Reactions - Avocado Anaphylaxis - Banana Anaphylaxis - Carbinoxamine Anaphylaxis - Yoselin Seed Anaphylaxis - Ciprofloxacin Anaphylaxis - Codeine Anaphylaxis - Contrast Dye Anaphylaxis To MRI and CT - Fish Anaphylaxis - Hycodan [Hydrocodon* Anaphylaxis Face and throat swelling - Latex Anaphylaxis - Imtiaz-Synephrine [Phe* Anaphylaxis 10% eye drop - Nickel Rash, Hives, Anaphylaxis - Nsaids (Non-Steroid* Other: See Comments Kidney function drops; reversible kidney damage. - Oxycodone Anaphylaxis - Periactin [Cyprohep* Anaphylaxis - Pneumococcal Vaccine Anaphylaxis - Shellfish Anaphylaxis - Zantac [Ranitidine] Anaphylaxis - Ativan [Lorazepam] Other: See Comments hallucination - Beef Containing Pro* Rash - Berino Other: See Comments Feels like an asthma attack. - Eggs [Egg] Rash, Vomiting - Ekg Leads [Adhesive] Rash Localized,only under the leads - Influenza Virus Vac* Shortness of Breath - Lisinopril Cough - Milk Rash, Vomiting - Mometasone Anaphylaxis Per Dr. Salas she tolerates formoterol (on Breo at home) but is allergic to mometasone. Okayed by him to update. - Xolair [Omalizumab] Shortness of Breath - Environmental [Othe* Other: See Comments Nasal congestion, brings on an asthma attack. - Surgical Tape [Othe* Rash, Swelling Oral rash, swelling of eyes, asthma attacks; per pateint report. CURRENT MEDICATIONS: amLODIPine (NORVASC) 10 mg tablet Take 0.5 tablets by mouth once daily. cyanocobalamin (VITAMIN B-12) 1,000 mcg tab Take 1 tablet by mouth once daily. atenolol (TENORMIN) 25 mg tablet Take 1 tablet by mouth once daily. levalbuterol tartrate HFA (XOPENEX HFA) 45 mcg/actuation inhaler Inhale 1-2 Puffs as instructed every 6 hours as needed for Wheezing/Shortness of Breath. EPINEPHrine (EPIPEN) 0.3 mg/0.3 mL auto-injector Inject 0.3 mL intramuscularly as needed. pregabalin (LYRICA) 150 mg capsule Take 1 capsule by mouth twice daily for 181 days. predniSONE (DELTASONE) 10 mg tablet Take 2.5 tablets by mouth once daily. ergocalciferol, vitamin D2, (VITAMIN D) 50,000 unit capsule Take 1 capsule by mouth once each week. TURMERIC ROOT EXTRACT ORAL Take 1 tablet by mouth twice daily. nitroglycerin sublingual (NITROQUICK) 0.4 mg SL tablet DISSOLVE 1 TABLET UNDER THE TONGUE NEEDED FOR CHEST PAIN IF NO RELIEF CALL 911 budesonide (PULMICORT) 0.5 mg/2 mL nebulizer solution Use 1 Ampule via nebulizer twice daily. crisaborole (EUCRISA) 2 % oint Apply to the hands twice daily COMPOUNDED PRESCRIPTION Please provide patient with nebulizer machine and supplies.Diagnosis: Severe Asthma. fluticasone-vilanterol (BREO ELLIPTA) 100-25 mcg/dose inhaler Inhale 1 Inhalation as instructed once daily. cetirizine (ZYRTEC) 10 mg tablet Take 10 mg by mouth once daily. pimecrolimus (ELIDEL) 1 % cream Apply twice daily to the hands spironolactone (ALDACTONE) 50 mg tablet Take 1 tablet by mouth twice daily. ondansetron (ZOFRAN) 4 mg tablet Take 1 tablet by mouth every 8 hours as needed. Cholestyramine, Bulk, powd Take 1 scoop by mouth once daily. bumetanide (BUMEX) 0.5 mg tablet Take 1 tablet by mouth once daily. lansoprazole (PREVACID) 30 mg capsule Take 1 capsule by mouth twice daily. Azelastine 0.15 % (205.5 mcg) spry Use 1 Wilberforce in each nostril twice daily. levalbuterol (XOPENEX) 1.25 mg/3 mL nebulizer solution Use 1 Ampule via nebulizer every 4 hours as needed. Inhale over 5-15 minutes fluticasone (FLONASE) 50 mcg/actuation nasal spray 1-2 sprays each side qd Benzonatate 200 mg capsule Take 200 mg by mouth three times daily as needed for Cough. lactobacillus rhamnosus (CULTURELLE) 10 billion cell capsule Take 1 capsule by mouth twice daily. famotidine (PEPCID) 20 mg tablet Take 1 tablet by mouth twice daily. diphenhydrAMINE (BENADRYL) 50 mg capsule Take 1 capsule by mouth every 6 hours as needed for Itching/Rash. amoxicillin (POLYMOX, AMOXIL) 250 mg capsule Take 250 mg by mouth once daily. zafirlukast (ACCOLATE) 20 mg tablet Take 1 tablet by mouth twice daily. doxazosin (CARDURA) 2 mg tablet Take 2 mg by mouth once daily. cycloSPORINE Modified 50 mg capsule Take 50 mg by mouth twice daily. ascorbic acid (VITAMIN C) 500 mg tablet Take 1 tablet by mouth once daily. REVIEW OF SYSTEMS: OBJECTIVE PHYSICAL EXAM: Temp 36.6 ?C (97.9 ?F) (Oral) Ht 162.6 cm (5' 4ANDquot;) Wt 93 kg (205 lb) LMP 08/07/2013 BMI 35.19 kg/m2 GENERAL APPEARANCE: Moderately obese. NEURO PSYCH: Patient oriented to person, place, and time. Mood pleasant. Benign affect. CARDIOVASCULAR: Palpable pulses. No edema noted. No varicosities. SKIN: Head, neck, trunk, and extremities dry, intact and without lesions. LYMPHATICS: No palpable nodes in cervical or axillae areas. Groin exam deferred. MUSCULOSKELETAL VISUAL INSPECTION CERVICAL: WNL THORACIC: WNL LUMBAR: WNL PALPATION: SPINOUS PROCESS: No pain. PARASPINALS: No pain. SPINE ROM: LUMBAR ROM: Full ROM Without Pain CERVICAL ROM: Full ROM Without Pain MUSCLE BULK: Normal and symmetrical in the upper ANDamp; lower extremities. MUSCLE TONE: Normal. MOTOR: 5/5 in all muscle groups. SENSORY: Normal sensory exam GAIT: Normal. Heel walk, toe walk, duck walk and jump with good strength. REFLEXES: +2 to bilateral U/L extremities. PROPRIOCEPTION: Normal. LONG TRACT SIGNS: No clonus. No Hoffmans. BABINSKI: Downward response STRAIGHT LEG TEST: Ipsilateral: Negative. Contralateral: Negative. PERIPHERAL JOINT ROM: HIP ROM: Full ROM Without Pain SHOULDER ROM: Full ROM Without Pain L'HERMITTES SIGN: Negative on the right. Negative on the left. SPURLING'S TEST: Negative on the right. Negative on the left. Neuro Tests: T12-L1: ?Canal and foramina are patent. L1-L2: ? ?Mild bulging annulus and mild facet degenerative change. ?No canal stenosis. ?Mild right foraminal narrowing. L2-L3: ? ?Bulging annulus and moderate facet degenerative change. ? Moderate canal stenosis. ?Mild bilateral inferior foraminal narrowing. L3-L4: ? ?Bulging annulus and mild to moderate facet degenerative change. ?Severe canal stenosis. ?Moderate right and mild left foraminal narrowing. L4-L5: ? ?Bulging annulus and moderate to severe facet degenerative change. ?Moderate canal stenosis. ?Moderate bilateral foraminal narrowing. L5-S1: ? ?Mild bulging annulus and mild facet degenerative change. ?Mild left inferior foraminal narrowing. ?No canal stenosis or right foraminal narrowing. Sacrum and iliac wings: ? ?The visualized sacrum and iliac wings are within normal limits. ASSESSMENT/PLAN (M48.061) Spinal stenosis of lumbar region without neurogenic claudication (M47.816) Lumbar spondylosis (M54.16) Lumbar radiculitis Comment: 62 year old with returning today requesting injections. Plan: pregabalin (LYRICA) 150 mg capsule, PATIENT PLACED ON SPINE CARE PATH, CANCELED: CONSULT TO SPINE INTERVENTION On further chart review clerical investigator must be consulted first in order to either premedicate due to anaphylaxis side effects last injection. Consider LESI if signed off by clerical investigator, otherwise continue lyrica as prescribed. SIGNATURE: Abelino Mcelroy CNP PATIENT NAME: Ralph Joshi DATE: June 27, 2017 TIME: 8:08 AM Abelino Mcelroy CNP 06/27/2017 8:08 AM Signed Chronic Low Back Pain Overview: ? Eighty to 90 percent of people in the [place] will experience an episode of back pain at some time during their lives. ? Chronic back pain refers to an episode of pain that lasts longer than 12 weeks. ? Many times, a specific structural explanation for the pain is not found but medical treatment can successfully improve symptoms and allow return to normal activities. ? In the absence of major structural deformity, surgery is unlikely to be helpful in relieving back pain. Treatment: ? Back pain is almost always best treated with conservative (non-surgical) measures. ? Prolonged bed rest is not recommended and generally should not exceed 24-48 hours. Gradually resuming normal activities as soon as you are able is best. ? Your physician may recommend physical therapy to customize an active exercise program which will speed your recovery. ? Over the counter, non-prescription pain relievers such as acetaminophen (Tylenol) and ibuprofen may be used in your treatment of pain. Your physician may prescribe a non-steroidal anti-inflammatory drug (NSAID) to use as an alternative. ? Other medications, particularly antidepressants, may be prescribed for pain relief even in the absence of depression. ? Yoga, acupuncture, and massage are helpful in some persons with chronic back pain. ? Opioid or narcotic medications are not recommended, and you should refrain from the use of such medications. In fact, use of these drugs may prolong the amount of time it takes for you to recover. ? Spinal epidural injections (ANDquot;blocksANDquot;) are not recommended for treatment of back pain. Injection of spinal joints (facets) is rarely recommended for treatment of spinal arthritis pain. Follow Up ? See your health care provider if: ? You experience fever ? The pain progressively worsens ? The pain progressively moves from your back into your leg(s) ? You notice progressive weakness in your legs ? You experience problems in your balance or walking ? You notice difficulty controlling your bowels or bladder These are warning signs or ANDquot;red flagsANDquot; that require prompt, urgent medical attention. For more information on low back pain, visit our website at [email or web address] and search ANDquot;lower back pain.ANDquot; SIGNATURE: Abelino Mcelroy CNP PATIENT NAME: Ralph Joshi DATE: June 27, 2017 TIME: 8:08 AM Referring Provider: SELF [[id number]] Allergies As of Date: 06/27/2017 Noted Allergy Reaction AVOCADO 09/10/2014 10 - Anaphylaxis BANANA 09/10/2014 10 - Anaphylaxis CARBINOXAMINE 09/17/2012 10 - Anaphylaxis YOSELIN SEED 08/28/2013 10 - Anaphylaxis CIPROFLOXACIN 04/11/2014 10 - Anaphylaxis CODEINE 01/12/2012 10 - Anaphylaxis CONTRAST DYE 05/17/2013 10 - Anaphylaxis Comments: To MRI and CT FISH 09/07/2014 10 - Anaphylaxis HYCODAN (HYDROCODONE-HOMATROPINE) 09/08/2011 10 - Anaphylaxis Comments: Face and throat swelling LATEX 01/21/2014 10 - Anaphylaxis IMTIAZ-SYNEPHRINE (PHENYLEPHRINE HCL)09/04/2014 10 - Anaphylaxis Comments: 10% eye drop NICKEL 01/07/2014 2 - Rash 4 - Hives 10 - Anaphylaxis NSAIDS (NON-STEROIDAL ANTI-INFLAM*08/16/2010 14 - Other: See Comments Comments: Kidney function drops; reversible kidney damage. OXYCODONE 08/28/2013 10 - Anaphylaxis PERIACTIN (CYPROHEPTADINE) 09/17/2012 10 - Anaphylaxis PNEUMOCOCCAL VACCINE 10/31/2014 10 - Anaphylaxis SHELLFISH 09/07/2014 10 - Anaphylaxis ZANTAC (RANITIDINE) 09/17/2012 10 - Anaphylaxis ATIVAN (LORAZEPAM) 08/28/2013 14 - Other: See Comments Comments: hallucination BEEF CONTAINING PRODUCTS 09/10/2014 2 - Rash CORN 05/03/2011 14 - Other: See Comments Comments: Feels like an asthma attack. EGGS (EGG) 03/08/2011 2 - Rash 11 - Vomiting EKG LEADS (ADHESIVE) 10/22/2012 2 - Rash Comments: Localized,only under the leads INFLUENZA VIRUS VACCINES 10/22/2012 12 - Shortness of Breath LISINOPRIL 04/20/2004 3 - Cough MILK 03/08/2011 2 - Rash 11 - Vomiting MOMETASONE 04/05/2017 10 - Anaphylaxis Comments: Per Dr. Salas she tolerates formoterol (on Breo at home) but is allergic to mometasone. Okayed by him to update. XOLAIR (OMALIZUMAB) 04/19/2012 12 - Shortness of Breath environmental [Other] 06/26/2007 14 - Other: See Comments Comments: Nasal congestion, brings on an asthma attack. surgical tape [Other] 11/10/2009 2 - Rash 7 - Swelling Comments: Oral rash, swelling of eyes, asthma attacks; per pateint report. Date Reviewed: 06/27/2017 Reviewed by: Annie Glover Ma - Fully Assessed Reason for Visit: Follow Up [171] Cmt: Low back pain radiating down bilateral legs with left great toe numbness, refill Lyrica Reason For Visit History Recorded Visit Diagnoses:Spinal stenosis of lumbar region without neurogenic claudication [M48.061] Lumbar spondylosis [M47.816] Lumbar radiculitis [M54.16] Order(s):pregabalin (LYRICA) 150 mg capsuleTake 1 capsule by mouth twice daily for 181 days.Disp: 180 capsuleRfl: 1 PATIENT PLACED ON SPINE CARE PATH [[id number]] Order #: [id number]: 1 Prescriptions as of 06/27/2017 Sig: PREGABALIN 150 MG CAPSULE Take 1 capsule by mouth twice* AMLODIPINE 10 MG TABLET Take 0.5 tablets by mouth onc* CYANOCOBALAMIN (VIT B-12) 1,0* Take 1 tablet by mouth once d* ATENOLOL 25 MG TABLET Take 1 tablet by mouth once d* LEVALBUTEROL HFA 45 MCG/ACTUA* Inhale 1-2 Puffs as instructe* EPINEPHRINE 0.3 MG/0.3 ML INJ* Inject 0.3 mL intramuscularly* PREDNISONE 10 MG TABLET Take 2.5 tablets by mouth onc* Patient taking differently: Take 25 mg by mouth once mary ellen* ERGOCALCIFEROL (VITAMIN D2) 5* Take 1 capsule by mouth once * Patient taking differently: Take 50,000 Units by mouth on* TURMERIC ROOT EXTRACT ORAL Take 1 tablet by mouth twice * NITROGLYCERIN 0.4 MG SUBLINGU* DISSOLVE 1 TABLET UNDER THE T* BUDESONIDE 0.5 MG/2 ML SUSPEN* Use 1 Ampule via nebulizer tw* CRISABOROLE 2 % TOPICAL OINTM* Apply to the hands twice daily COMPOUNDED PRESCRIPTION Please provide patient with n* FLUTICASONE 100 MCG-VILANTERO* Inhale 1 Inhalation as instru* CETIRIZINE 10 MG TABLET Take 10 mg by mouth once mary ellen* PIMECROLIMUS 1 % TOPICAL CREAM Apply twice daily to the hands SPIRONOLACTONE 50 MG TABLET Take 1 tablet by mouth twice * ONDANSETRON HCL 4 MG TABLET Take 1 tablet by mouth every * CHOLESTYRAMINE (BULK) POWDER Take 1 scoop by mouth once da* BUMETANIDE 0.5 MG TABLET Take 1 tablet by mouth once d* LANSOPRAZOLE 30 MG CAPSULE,DE* Take 1 capsule by mouth twice* AZELASTINE 0.15 % (205.5 MCG)* Use 1 Wilberforce in each nostril t* LEVALBUTEROL 1.25 MG/3 ML BRENDA* Use 1 Ampule via nebulizer ev* FLUTICASONE 50 MCG/ACTUATION * 1-2 sprays each side qd BENZONATATE 200 MG CAPSULE Take 200 mg by mouth three ti* LACTOBACILLUS RHAMNOSUS GG 10* Take 1 capsule by mouth twice* FAMOTIDINE 20 MG TABLET Take 1 tablet by mouth twice * Patient taking differently: Take 20 mg by mouth twice liam* DIPHENHYDRAMINE 50 MG CAPSULE Take 1 capsule by mouth every* AMOXICILLIN 250 MG CAPSULE Take 250 mg by mouth once liam* ZAFIRLUKAST 20 MG TABLET Take 1 tablet by mouth twice * DOXAZOSIN 2 MG TABLET Take 2 mg by mouth once daily. CYCLOSPORINE MODIFIED 50 MG C* Take 50 mg by mouth twice liam* ASCORBIC ACID (VITAMIN C) 500* Take 1 tablet by mouth once d* Problem List As Of Date 06/27/2017 Noted Resolved JOINT PAIN-ANKLE [M25.579] INVALID FOR*03/20/2014 Edema [R60.9] INVALID FOR*03/28/2016 Priority: I Adrenal nodule (HCC) [E27.9] INVALID FOR* More... Diarrhea [R19.7] INVALID FOR*10/15/2013 Excessive or frequent menstruation [N92.0] INVALID FOR*07/14/2011 Shortness of breath [R06.02] INVALID FOR*10/15/2013 Palpitations [R00.2] INVALID FOR*03/20/2014 Tachycardia, unspecified [R00.0] INVALID FOR*10/15/2013 More... Open wound site NOS [T14.8XXA] INVALID FOR*07/16/2011 Abdominal pain, right upper quadrant [R10.11] INVALID FOR*07/14/2011 More... Acute gastritis without mention of hemorrhage [*INVALID FOR*10/15/2013 Hematuria [599.7] INVALID FOR*07/14/2011 URGE INCONTINENCE [N39.41] INVALID FOR* FEMALE STRESS INCONTINENCE [N39.3] INVALID FOR* Scar, hypertrophic [L91.0] INVALID FOR*10/15/2013 Ovarian cyst [N83.209] INVALID FOR*07/06/2010 Cyst INVALID FOR*10/15/2013 Other specified pre-operative examination [Z01.*INVALID FOR*07/16/2011 Hirsutism [L68.0] INVALID FOR* Dysphagia [R13.10] INVALID FOR*03/20/2014 GERD (gastroesophageal reflux disease) [K21.9] INVALID FOR* Priority: D More... 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 Obesity (BMI 30.0-34.9) [E66.9] INVALID FOR* More... More... More... More... Idiopathic anaphylaxis [T78.2XXA] INVALID FOR* Priority: A More... Urticaria, idiopathic [L50.1] INVALID FOR*03/28/2016 More... Hyperlipidemia [E78.5] INVALID FOR* Impaired fasting glucose [R73.01] INVALID FOR* Recurrent chest pain [R07.9, G89.29] INVALID FOR*12/09/2014 Multinodular goiter [E04.2] INVALID FOR* More... CKD (chronic kidney disease) stage 3, GFR 30-59*INVALID FOR* Pain in joint, ankle and foot [M25.579] INVALID FOR*12/09/2014 More... More... Steroid-induced hyperglycemia [R73.9, T38.0X5A] INVALID FOR*03/28/2016 Priority: C Moderate persistent asthma without complication*INVALID FOR* Ulcerative colitis without complications (HCC) *INVALID FOR* Anaphylaxis [T78.2XXA] INVALID FOR*03/26/2015 More... Neck pain, bilateral [M54.2] INVALID FOR*03/28/2016 Essential hypertension with goal blood pressure*INVALID FOR*03/28/2016 Chronic nausea [R11.0] INVALID FOR* Lumbar radiculitis [M54.16] INVALID FOR*03/28/2016 Lumbar stenosis [M48.061] INVALID FOR*03/28/2016 Acquired spondylolisthesis [M43.10] INVALID FOR*03/28/2016 Cervical radiculitis [M54.12] INVALID FOR*03/28/2016 Cervical spondylosis with radiculopathy [M47.22]INVALID FOR*03/29/2017 Shoulder impingement [M75.40] INVALID FOR*03/28/2016 Anaphylaxis [T78.2XXA] INVALID FOR*03/28/2016 Tendonitis, tibialis [M76.829] INVALID FOR*05/09/2016 Lumbar stenosis [M48.061] INVALID FOR* Cervical radiculitis [M54.12] INVALID FOR*03/29/2017 Cervical herniated disc [M50.20] INVALID FOR*03/29/2017 Cervical stenosis of spine [M48.02] INVALID FOR* Cervical spondylosis with myelopathy [M47.12] INVALID FOR*03/29/2017 Cervical myelopathy (HCC) [G95.9] INVALID FOR*03/29/2017 Claustrophobia [F40.240] INVALID FOR* Ptosis of eyelid, bilateral [H02.403] INVALID FOR*03/29/2017 More... Lumbar spondylosis [M47.816] INVALID FOR* More... Preop testing [Z01.818] INVALID FOR* More... Anaphylaxis [T78.2XXA] INVALID FOR* Essential hypertension [I10] INVALID FOR* Other instructions from your clinician: Chronic Low Back Pain Overview: ? Eighty to 90 percent of people in the [place] will experience an episode of back pain at some time during their lives. ? Chronic back pain refers to an episode of pain that lasts longer than 12 weeks. ? Many times, a specific structural explanation for the pain is not found but medical treatment can successfully improve symptoms and allow return to normal activities. ? In the absence of major structural deformity, surgery is unlikely to be helpful in relieving back pain. Treatment: ? Back pain is almost always best treated with conservative (non-surgical) measures. ? Prolonged bed rest is not recommended and generally should not exceed 24-48 hours. Gradually resuming normal activities as soon as you are able is best. ? Your physician may recommend physical therapy to customize an active exercise program which will speed your recovery. ? Over the counter, non-prescription pain relievers such as acetaminophen (Tylenol) and ibuprofen may be used in your treatment of pain. Your physician may prescribe a non-steroidal anti-inflammatory drug (NSAID) to use as an alternative. ? Other medications, particularly antidepressants, may be prescribed for pain relief even in the absence of depression. ? Yoga, acupuncture, and massage are helpful in some persons with chronic back pain. ? Opioid or narcotic medications are not recommended, and you should refrain from the use of such medications. In fact, use of these drugs may prolong the amount of time it takes for you to recover. ? Spinal epidural injections (blocks) are not recommended for treatment of back pain. Injection of spinal joints (facets) is rarely recommended for treatment of spinal arthritis pain. Follow Up ? See your health care provider if: ? You experience fever ? The pain progressively worsens ? The pain progressively moves from your back into your leg(s) ? You notice progressive weakness in your legs ? You experience problems in your balance or walking ? You notice difficulty controlling your bowels or bladder These are warning signs or red flags that require prompt, urgent medical attention. For more information on low back pain, visit our website at [email or web address] and search lower back pain. SIGNATURE: Abelino Mcelroy CNP PATIENT NAME: Ralph Joshi DATE: June 27, 2017 TIME: 8:08 AM Prescriptions ordered this encounter Disp Refills Start End PREGABALIN 150 MG CAPSULE 180 * 1 06/27/2017 12/25/2017 Class: Print RX Route: ORAL Sig: Take 1 capsule by mouth twice daily for 181 days. Medications Discontinued During This Encounter pregabalin (LYRICA) 150 mg capsule 180 * 1 04/14/2017 06/27/2017 Class: Print RX Route: ORAL Sig: Take 1 capsule by mouth twice daily for 181 days. Disc: Reason for discontinue is not on file. Disposition: Return in about 3 months (around 09/27/2017), or if symptoms worsen or fail to improve. Follow-up and Disposition History Recorded Encounter Status:Closed by ABELINO MCELROY on 06/27/17 SURGICAL PATHOLOGY Observed: 06/26/2017 Status: F Source: [place] 1:27 PM [facility] REPOSITORY Specimen originated from [facility] Specimen #: [id number] Submitting Physician: CELESTINE FERNÁNDEZ MD FINAL DIAGNOSIS Colon, gastric polyp, biopsy - Fundic gland polyp, negative for dysplasia. - No Helicobacter organisms identified. ELENI/jen 06/27/2017 Neisha Godoy M.D., Ph.D. (Electronic Signature) SPECIMEN SUBMITTED A: GASTRIC POLYP, BIOPSY CLINICAL DATA GASTRIC PAIN R/O ADENOMA GROSS DESCRIPTION A. Received in formalin is one piece of vaughan, soft tissue measuring 0.5 x 0.4 x 0.2 cm. Totally submitted in one cassette. Gross examination performed at [facility], [address] [place] [address] 06/26/2017 9:49:48 PM Date of Report: 06/27/2017 Date of Procedure: 06/26/2017 Date of Receipt: 06/26/2017 Submitted by: CELESTINE FERNÁNDEZ MD Location: [facility] [place] [address] Diagnostic interpretation performed at [facility], [address] [place] [address]. CBC AND DIFFERENTIAL Collected: 06/26/2017 Status: F Source: [place] 9:33 AM [facility] REPOSITORY TYPE CODE TESTS RESULT OUT OF REFERENCE UNITS RANGE LAB WBC 3.70-11.00 k/uL WBC 10.36 LAB RBC 3.90-5.20 m/uL RBC 4.99 LAB HGB 11.5-15.5 g/dL Hemoglobin 14.7 LAB HCT 36.0-46.0 % Hematocrit 43.7 LAB MCV 80.0-100.0 fL MCV 87.6 LAB MCH 26.0-34.0 pG MCH 29.5 LAB MCHC 30.5-36.0 g/dL MCHC 33.6 LAB RDWCV 11.5-15.0 % RDW-CV 13.8 LAB PLTCT 150-400 k/uL Platelet Count 212 LAB MPV 9.0-12.7 fL MPV 11.5 LAB ANEUT % Neut% 91.3 LAB AANEUT 1.45-7.50 k/uL Abs Neut High 9.46 LAB ALYMP % Lymph% 6.1 LAB AALYMP 1.00-4.00 k/uL Low Abs Lymph 0.63 LAB AMONO % Potter% 2.2 LAB AAMONO <0.87 k/uL Abs Potter 0.23 LAB AEOS % Eosin% 0.1 LAB AAEOS <0.46 k/uL Abs Eosin <0.03 LAB ABASO % Baso% 0.3 LAB AABASO <0.11 k/uL Abs Baso 0.03 LAB AUNRBC 0 /100 WBC NRBCs 0.0 LAB ABNRBC <0.01 k/uL Absolute nRBC <0.01 LAB DTYP DTYPE Auto Diff Performed By: #### CBCDIF, PTHI, RFP, VITD, CHANG #### [facility] [address] [place], [place] [address] PTH, INTACT Collected: 06/26/2017 Status: F Source: [place] 9:33 AM [facility] REPOSITORY TYPE CODE TESTS RESULT OUT OF REFERENCE UNITS RANGE LAB PTH 15-65 pg/mL PTH, Intact 39 Performed By: #### CBCDIF, PTHI, RFP, VITD, CHANG #### [facility] [address] [place], [place] [address] RENAL FUNCTION PANEL Collected: 06/26/2017 Status: F Source: [place] 9:33 AM [facility] REPOSITORY TYPE CODE TESTS RESULT OUT OF REFERENCE UNITS RANGE LAB ALB 3.9-4.9 g/dL Albumin 4.7 LAB CA 8.5-10.2 mg/dL Calcium, Total 9.6 LAB PHOS 2.7-4.8 mg/dL Phosphorus 2.7 LAB GLU 74-99 mg/dL Glucose High 125 Result Comment: The [place] Diabetes Association (ADA) provides guidance for cutoff values for fasting glucose and random glucose. The ADA defines fasting as no caloric intake for at least 8 hours. Fas ting plasma glucose results between 100 to 125 mg/dL indicate increased risk for diabetes (prediabetes). Fasting plasma glucose results greater than or equal to 126 mg/dL meet the criteria for diagnosis of diabetes. In the absence of unequivocal hyperglycemia, results should be confirmed by repeat testing. In a patient with classic symptoms of hyperglycemia or hyperglycemic crisis, random plasma glucose results greater than or equal to 200 mg/dL meet the criteria for diagnosis of diabetes. Reference: Standards of Medical Care in Diabetes 2016, [place] [employer] Association. Diabetes Care. 2016.39(Suppl 1). LAB BUN 7-21 mg/dL BUN 15 LAB CRET 0.58-0.96 mg/dL Creatinine High 1.07 LAB NA 136-144 mmol/L Sodium 139 LAB K 3.7-5.1 mmol/L Potassium 4.3 LAB CL 97-105 mmol/L Chloride 103 LAB CO2 22-30 mmol/L Low CO2 21 LAB AGAP 9-18 mmol/L Anion Gap 15 LAB GFRAA eGFR- Amer. >60 LAB GFRNAA . eGFR-All Other Races 52 Result Comment: eGFR (Estimated GFR) Units of measure: mL/min/1.73 meters squared eGFR is derived from the reexpressed MDRD Study equation using the following parameters: serum creatinine, age, gender and race. The creatinine assay has been calibrated to be traceable to IDMS. An eGFR <60 mL/min/1.73m2 for >3 months is consistent with chronic kidney disease. Refer to KDOQI guidelines for clinical interpretation. In patients with unstable renal function, e.g. those with acute kidney injury, the eGFR may not accurately reflect actual GFR. Performed By: #### CBCDIF, PTHI, RFP, VITD, CHANG #### [facility] [employer] [address] [place] [address] VITAMIN D 25 HYDROXY Collected: 06/26/2017 Status: F Source: [place] 9:33 [facility] REPOSITORY TYPE CODE TESTS RESULT OUT OF REFERENCE UNITS RANGE LAB VITD 31.0-80.0 ng/mL Vitamin D 25 43.7 Hydroxy Result Comment: Classification of 25 [place] Vitamin D status: Insufficiency/Moderate Deficiency: < or = 30 ng/mL Sufficiency/Optimal Levels: 31 to 80 ng/mL Toxicity: > 100 ng/mL Test performed by chemiluminescent immunoassay. Performed By: #### CBCDIF, PTHI, RFP, VITD, CHANG #### [facility] [employer] [address] [place] [address] ALDOSTERONE Collected: 06/26/2017 Status: F Source: [place] 9:33 [facility] REPOSITORY TYPE CODE TESTS RESULT OUT OF REFERENCE UNITS RANGE LAB CHANG 3.1-35.4 ng/dL Aldosterone High 74.3 Result Comment: Normal serum levels of aldosterone are dependent on the sodium intake and whether the patient is upright or supine. High sodium intake will tend to suppress serum aldosterone, whereas lo w sodium intake will elevate serum aldosterone. The reference interval for serum aldosterone are based on a normal sodium intake. Supine reference range <23.1 ng/dL Performed By: #### CBCDIF, PTHI, RFP, VITD, CHANG #### [facility] [address] [place] [id number] PROGRESS Observed: 06/26/2017 Status: COMPLETED Source: [place] 8:07 AM [facility] REPOSITORY HNO ID: [id number] Author: Pilar Ward Service: (none) Author Type: Physician Type: Progress Notes Filed: 06/26/2017 9:12 AM Note Text: [facility] NEPHR[facility] HYPERTENSION [facility] SERVICE DATE: 06/26/2017 SERVICE TIME: 8:08 AM REASON FOR CONSULT: I am asked to see this patient in consultation for my opinion regarding CKD. My recommendations will be communicated by way of shared medical record, fax, or mail. REQUESTING PHYSICIAN: Martin Booth DO PRIMARY CARE PHYSICIAN: Anisa Caldwell MD CHIEF COMPLAINT: CKD HPI: Ms. Joshi is a 62 year old female who presents with CKD and HTN. Increase in creatinine since 2012. Level fluctuates. Baseline creatinine is 1.2. Had an increase in creatinine in March to 1.5. Unclear what occurred at that time. 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 Was on 100 mg bid. Kidney function declined and the dose was reduced to 50mg bid. Currently low levels. HTN diagnosed about 10 years. Currently on amlodipine, atenolol, spironolactone Bumex and doxazosin. Is on bumex for HTN and was no lasix because of allergic reaction to one of the components of it. ? Duration (when): 2012 ? Location (where): kidneys ? Severity (ex: creat 4.5, BP 200/100): cr 1.8 ? Quality (ex: sharp, dull): na ? Context (ex: activity at onset or related to condition): cyclosporin ? Timing (ex: continuous, intermittent): intermittent PAST MEDICAL HISTORY: PAST MEDICAL HISTORY Diagnosis Date - Abdominal pain, other specified site - ACNE NEC 01/21/2008 - Actinic Keratosis (Premalignant AK) 06/05/2011 - ACUTE GASTRITIS W/O HEMORRHAGE 04/26/2007 - Allergic rhinitis 04/23/2012 - Anaphylactic reaction ideopathic - Benign tumor of adrenal gland - Biliary dyskinesia 10/29/2009 - Cervical herniated disc 10/20/2016 - Cervical myelopathy (HCC) 10/25/2016 - Cervical radiculitis 10/20/2016 - Cervical spondylosis with radiculopathy 11/17/2015 - JAIN ANGIOMA///NEVUS, NON-NEOPLASTIC 05/28/2007 - CKD (chronic kidney disease) stage 3, GFR 30-59 ml/min 04/29/2013 - Diaphragmatic hernia without mention of obstruction or gangrene 05/25/2011 - Diverticulosis of colon (without mention of hemorrhage) - Edema 07/07/2004 - Epigastric pain - GERD (gastroesophageal reflux disease) - HTN (hypertension) 2002 controlled on Diovan - Hyperlipidemia 10/15/2013 - IRON DEFIC ANEMIA NOS 04/26/2007 - Moderate persistent asthma without complication 02/18/2015 - Ovarian cyst Benign ovarian cyst, S/P laparoscopic LSO - Ptosis of eyelid, bilateral 12/23/2016 Added automatically from request for surgery [id number] - Shoulder impingement 11/17/2015 - Sleep apnea intollerant to CPAP because allergic to material on mask - Steroid-induced hyperglycemia 09/06/2014 - TACHYCARDIA NOS 01/09/2006 - Tarsal tunnel syndrome 12/23/2009 - Tear of lateral meniscus of knee 02/21/2014 - Ulcerative colitis, unspecified - UTERINE LEIOMYOMA NOS 12/23/2005 - VIRAL WARTS NOS 05/09/2006 - Vocal cord dysfunction PAST SURGICAL HISTORY: PAST SURGICAL HISTORY Procedure Laterality Date - CHOLECYSTECTOMY HX - COLONOSCOP W/ OR W/O [facility] SPEC 09/06/2005 Colonoscopy - COLONOSCOP W/ OR W/O [facility] SPEC Colonoscopy - COLONOSCOP W/ OR W/O [facility] SPEC 05/28/2012 Colonoscopy repeat 5 years. - EGD 07/29/14 normal - EGD W/O OR W/BRUSH/WASH 09/06/2005 EGD - EGD W/O OR W/BRUSH/WASH 04/26/2007 EGD - EGD W/O OR W/BRUSH/WASH 05/25/2011 EGD - EGD W/O OR W/BRUSH/WASH 05/28/2012 EGD - L'SCOPE REM ADNEX W/PART/TOT OOPH/SALP 06/11/2009 Laparoscopic LSO for benign ovarian cyst - LAMINECTOMY,CERVICAL 10/2016 - LAP CHOLECYSTECT/CHOLANGIOGRAPHY 10/30/09 Normal IOC - ORTHOPEDICS SURGERY HX 12/2013 repaired Rt achilles tendon - PAST SURGICAL HISTORY OF 09/19 left foot surgery on heel and repaired torn tdndon - SIGMOIDOSCOPY FLEX DIAG 05/20/08 - TARSAL TUNNEL RELEASE 07/2010 Left foot FAMILY HISTORY: FAMILY HISTORY Problem Relation Age of Onset - Colon Cancer Father dx age 60. Alive at 85. - Hypertension Father Alive at 85. - Cataract Father Alive at 85. - Thyroid Father Alive at 85. - Heart Father [place] at 87 - Diabetes Mother colon polyps. age 72. - Hypertension Mother age 72. - benign brainstem tumor [OTHER] Mother Persistent vegetative state. age 72. - defects Sister - Glaucoma Maternal Grandmother - Stroke Maternal Grandfather - Cancer Paternal Grandmother cervical - Colon Cancer Son 38 colon and rectal cancer - Breast Cancer Sister Developed in late 20s. Alive at 52. 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 cyanocobalamin (VITAMIN B-12) 1,000 mcg tab Take 1 tablet by mouth once daily. atenolol (TENORMIN) 25 mg tablet Take 1 tablet by mouth once daily. levalbuterol tartrate HFA (XOPENEX HFA) 45 mcg/actuation inhaler Inhale 1-2 Puffs as instructed every 6 hours as needed for Wheezing/Shortness of Breath. EPINEPHrine (EPIPEN) 0.3 mg/0.3 mL auto-injector Inject 0.3 mL intramuscularly as needed. pregabalin (LYRICA) 150 mg capsule Take 1 capsule by mouth twice daily for 181 days. predniSONE (DELTASONE) 10 mg tablet Take 2.5 tablets by mouth once daily. ergocalciferol, vitamin D2, (VITAMIN D) 50,000 unit capsule Take 1 capsule by mouth once each week. TURMERIC ROOT EXTRACT ORAL Take 1 tablet by mouth twice daily. nitroglycerin sublingual (NITROQUICK) 0.4 mg SL tablet DISSOLVE 1 TABLET UNDER THE TONGUE NEEDED FOR CHEST PAIN IF NO RELIEF CALL 911 budesonide (PULMICORT) 0.5 mg/2 mL nebulizer solution Use 1 Ampule via nebulizer twice daily. crisaborole (EUCRISA) 2 % oint Apply to the hands twice daily COMPOUNDED PRESCRIPTION Please provide patient with nebulizer machine and supplies.Diagnosis: Severe Asthma. fluticasone-vilanterol (BREO ELLIPTA) 100-25 mcg/dose inhaler Inhale 1 Inhalation as instructed once daily. cetirizine (ZYRTEC) 10 mg tablet Take 10 mg by mouth once daily. pimecrolimus (ELIDEL) 1 % cream Apply twice daily to the hands spironolactone (ALDACTONE) 50 mg tablet Take 1 tablet by mouth twice daily. ondansetron (ZOFRAN) 4 mg tablet Take 1 tablet by mouth every 8 hours as needed. Cholestyramine, Bulk, powd Take 1 scoop by mouth once daily. bumetanide (BUMEX) 0.5 mg tablet Take 1 tablet by mouth once daily. lansoprazole (PREVACID) 30 mg capsule Take 1 capsule by mouth twice daily. Azelastine 0.15 % (205.5 mcg) spry Use 1 Wilberforce in each nostril twice daily. levalbuterol (XOPENEX) 1.25 mg/3 mL nebulizer solution Use 1 Ampule via nebulizer every 4 hours as needed. Inhale over 5-15 minutes fluticasone (FLONASE) 50 mcg/actuation nasal spray 1-2 sprays each side qd Benzonatate 200 mg capsule Take 200 mg by mouth three times daily as needed for Cough. lactobacillus rhamnosus (CULTURELLE) 10 billion cell capsule Take 1 capsule by mouth twice daily. famotidine (PEPCID) 20 mg tablet Take 1 tablet by mouth twice daily. diphenhydrAMINE (BENADRYL) 50 mg capsule Take 1 capsule by mouth every 6 hours as needed for Itching/Rash. amoxicillin (POLYMOX, AMOXIL) 250 mg capsule Take 250 mg by mouth once daily. zafirlukast (ACCOLATE) 20 mg tablet Take 1 tablet by mouth twice daily. doxazosin (CARDURA) 2 mg tablet Take 2 mg by mouth once daily. cycloSPORINE Modified 50 mg capsule Take 50 mg by mouth twice daily. ascorbic acid (VITAMIN C) 500 mg tablet Take 1 tablet by mouth once daily. ALLERGIES: ALLERGIES Allergen Reactions - Avocado Anaphylaxis - Banana Anaphylaxis - Carbinoxamine Anaphylaxis - Yoselin Seed Anaphylaxis - Ciprofloxacin Anaphylaxis - Codeine Anaphylaxis - Contrast Dye Anaphylaxis To MRI and CT - Fish Anaphylaxis - Hycodan [Hydrocodon* Anaphylaxis Face and throat swelling - Latex Anaphylaxis - Imtiaz-Synephrine [Phe* Anaphylaxis 10% eye drop - Nickel Rash, Hives, Anaphylaxis - Nsaids (Non-Steroid* Other: See Comments Kidney function drops; reversible kidney damage. - Oxycodone Anaphylaxis - Periactin [Cyprohep* Anaphylaxis - Pneumococcal Vaccine Anaphylaxis - Shellfish Anaphylaxis - Zantac [Ranitidine] Anaphylaxis - Ativan [Lorazepam] Other: See Comments hallucination - Beef Containing Pro* Rash - Berino Other: See Comments Feels like an asthma attack. - Eggs [Egg] Rash, Vomiting - Ekg Leads [Adhesive] Rash Localized,only under the leads - Influenza Virus Vac* Shortness of Breath - Lisinopril Cough - Milk Rash, Vomiting - Mometasone Anaphylaxis Per Dr. Salas she tolerates formoterol (on Breo at home) but is allergic to mometasone. Okayed by him to update. - Xolair [Omalizumab] Shortness of Breath - Environmental [Othe* Other: See Comments Nasal congestion, brings on an asthma attack. - Surgical Tape [Othe* Rash, Swelling Oral rash, swelling of eyes, asthma attacks; per pateint report. REVIEW OF SYSTEMS: General: Negative for weight loss, night sweats, fever, and fatigue Head/Neck: Negative for photophobia, oral ulcers/sores, metallic or bitter taste, epistaxis, and chronic nasal congestion Cardiac: Negative for syncope, palpitations, orthopnea, lightheadedness, dizziness, chest pain or pressure, and PND Vascular: Negative for raynauds, edema, and claudication Pulmonary: Negative for hemoptosis, dyspnea, and cough GastroIntestinal: Positive for abdominal pain; Negative for nausea, loss of appetite, emesis, diarrhea, and constipation Genito-Urinary: Negative for urinary hesitancy, urinary frequency, straining, pink or red urine, pain with urination, nocturia, groin pain, frothy urine, flank pain, and decreased urine Musculoskeletal: Negative for joint swelling, and joint pain Neurologic: Negative for weakness, tremor, parathesias, and numbness Skin: Negative for rash, photosensitivity, and malar rash Hematology: Negative for easy bruising, and easy bleeding Endocrinology: Negative for hypoglycemic events, and heat or cold intolerance Other: Negative for morning headache, excessive snoring, and daytime somnolence PHYSICAL EXAM: BP 139/83 Pulse 79 Ht 162.6 cm (5' 4) Wt 93 kg (205 lb) LMP 08/07/2013 BMI 35.19 kg/m2 Average BP (BpTru): 139/83 BpTRU BP #1 discard value (BpTru): 143/84 Pulse #1 Discard Value (BpTru): 79 beats/min BP #2 (BpTru): 149/84 Pulse #2 (BpTru): 80 beats/min BP #3 (BpTru): 137/87 Pulse #3 (BpTru): 81 beats/min BP #4 (BpTru): 138/82 Pulse #4 (BpTru): 81 beats/min BP #5 (BpTru): 137/80 Pulse #5 (BpTru): 77 beats/min BP #6 (BpTru): 135/80 Pulse #6 (BpTru): 76 beats/min Average BP (BpTru): 139/83 Average Pulse (BpTru): 79 beats/min BP cuff location: Left upper arm BP cuff size: large adult Constitutional: No acute distress, well nourished Eyes: Conjunctiva clear, extra-ocular movements intact Ear, Nose, and Throat: Lips and dentition normal Neck: trachea midline, no palpable mass Cardiovascular: RRR, nl S1/S2, no murmurs, no peripheral edema Respiratory: normal inspiratory effort, CTA b/l Abdomen: soft, non tender, non distended Musculoskeletal: normocephalic, no muscle weakness Neurologic: normal sensation, CN II-XII intact Psychiatric: AAO x 3, normal affect Skin: No rashes, skin dry DATA: Diagnostic tests reviewed for today's visit: Recent Labs 06/26/17 0754 04/19/17 1041 04/12/17 1159 11/18/16 1200 COLOR Yellow Yellow Yellow < > Yellow CLARITY Cloudy* Cloudy* Cloudy* < > Clear UGLUC Negative Negative Negative < > Negative UBILI Negative Negative Negative < > Negative UKET Negative Trace* Negative < > Negative SPGR 1.016 1.023 1.021 < > 1.009 UHB Negative Negative Negative < > Negative UPH 6.0 5.0 5.0 < > 8.0 UPROT Negative 30* Negative < > Negative NITRITES Negative Negative Negative < > Negative LEUKEST Negative Trace* Trace* < > 1+* UWBC -- 0-5 0-5 -- 0-5 URBC -- 0-3 0-3 -- 0-3 < > = values in this interval not displayed. BUN (mg/dL) Date Value 04/12/2017 24 04/12/2017 24 04/05/2017 20 03/17/2017 22 01/23/2017 33 11/19/2016 21 11/18/2016 18 11/15/2016 14 Creatinine (mg/dL) Date Value 04/12/2017 1.48 04/12/2017 1.51 04/05/2017 1.19 03/17/2017 1.14 01/23/2017 1.35 11/19/2016 1.25 11/18/2016 1.21 11/15/2016 1.04 eGFR- (no units) Date Value 04/12/2017 43 04/12/2017 42 04/05/2017 56 03/17/2017 59 01/23/2017 48 11/19/2016 53 11/18/2016 55 11/15/2016 >60 eGFR-All Other Races (.) Date Value 04/12/2017 36 04/12/2017 35 04/05/2017 46 03/17/2017 49 01/23/2017 40 11/19/2016 44 11/18/2016 45 11/15/2016 54 PTH, Intact (pg/mL) Date Value 06/16/2016 44 11/05/2015 40 05/11/2015 41 Vitamin D 25 Hydroxy (ng/mL) Date Value 12/17/2013 34.1 10/21/2013 37.0 Iron (ug/dL) Date Value 04/12/2017 144 Transferrin Saturation (%) Date Value 04/12/2017 42 Ferritin (ng/mL) Date Value 04/12/2017 48.0 ASSESSMENT: 62 year old female who presents with CKD ASSESSMENT/PLAN: 1. CKD (chronic kidney disease) stage 3, GFR 30-59 ml/min (HCC) - ICD9: 585.3, ICD10: N18.3 (primary diagnosis) Secondary to chronic calcineurin inhibitor nephrotoxicity and HTN Creatinine fluctuates Will repeat renal function and all ckd labs including PCR and ACR She will talk to her clerical investigator about options for IS in case that is needed in the future. For now continue current medications Follow up in 3 months - RENAL FUNCTION PANEL - CBC + DIFF - VITAMIN D 25 HYDROXY - PTH INTACT BLD - ALDOSTERONE BLD - RENAL FUNCTION PANEL - PROTEIN CREATININE RATIO - ALBUMIN/CREAT RATIO RND UR 2. Essential hypertension - ICD9: 401.9, ICD10: I10 - good control - Recommended regular aerobic exercise. - Recommend home blood pressure monitoring, to bring results in on next visit - Goal of BP <130/80 3. Adrenal mass (HCC) - ICD9: 255.9, ICD10: E27.9 Followed by endocrinology Will repeat chang levels Patient wants to consider surgery if it is an option. She has been evaluated for it in the past but never had adrenal vein sampling. Usually we like to maximize spironolactone before adding other bp meds For now continue current tx because she is controlled. - ALDOSTERONE BLD SIGNATURE: Pilar Ward MD PATIENT NAME: Ralph Joshi DATE: June 26, 2017 TIME: 8:08 AM OFFICE NUMBER: [id number] CC: REFERRING PROVIDER: Martin Booth DO PRIMARY CARE PHYSICIAN: Anisa Caldwell MD URINALYSIS Collected: 06/26/2017 Status: F Source: [place] 7:54 AM [facility] REPOSITORY TYPE CODE TESTS RESULT OUT OF RANGE REFERENCE UNITS LAB UCOL Yellow Color Yellow LAB [facility] Clear Clarity Abnormal Cloudy Alert LAB UGLUC Negative mg/dL Glucose, Urine Negative LAB UBIL Negative Bilirubin, Urine Negative LAB UKET Negative Ketones, Urine Negative LAB USPG 1.005-1.030 Specific [place], Ur 1.016 LAB UHGB Negative Hemoglobin/Blood, Negative Ur LAB UPH 4.5-8.0 pH 6.0 LAB UPROT Negative mg/dL Protein, Urine Negative LAB UUROB Normal Urobilinogen Normal LAB UNITR Negative Nitrites Negative LAB ULKEST Negative Leukest Negative LAB UCOM Comments SEE COMMENT Result Comment: Microscopic not warranted LAB UMCOM Urine SEE Compa Comment COMMENT Result Comment: N/A Performed By: #### UA #### [facility] [address] [address] PROTEIN/CREATININE RATIO Collected: Status: F Source: [place] 06/26/2017 7:54 AM [facility] REPOSITORY TYPE CODE TESTS RESULT OUT OF REFERENCE UNITS RANGE LAB UTPR 0-20 mg/dL Protein Urine 14 Random LAB UCRR 20-300 mg/dL Creatinine,Ur 145.5 ine,Ran LAB PCRAT <0.2 Protein/Creat 0.1 inine Ratio Performed By: #### PRATIO #### [facility] [address] [place], [place] [address] ALBUMIN/CREAT RATIO Collected: 06/26/2017 Status: F Source: [place] 7:54 AM [facility] REPOSITORY TYPE CODE TESTS RESULT OUT OF REFERENCE UNITS RANGE LAB UCRR 20-300 mg/dL Creatinine,Ur 140.8 ine,Ran LAB UALBR 0.0-23.0 mg/L High Albumin Urine 44.1 Random LAB UALBCR 0-30 mg/g High Albumin/Creat 31 Ratio Result Comment: 30 to 300 mg/g indicates an increased risk for diabetic nephropathy. Greater than 300 mg/g is consistent with clinical nephropathy. (Am J Kidney Disease 1995, 25:107) Performed By: #### UACR #### [facility] [address] [place], [place] [address] CNOV Observed: 06/26/2017 Status: COMPLETED Source: [place] 7:30 AM [facility] REPOSITORY Office Visit (NEPHMN) RALPH JOSHI ([id number]) 1955 F Date Time Provider Department 06/26/17 7:30 AM PILAR WARD NEPHRHONDA During your visit today, we recorded the following information about you: Pulse Blood pressure Weight Height 79/minute 139/83 93 kg 1.626 m Pilar Ward MD 06/26/2017 9:12 AM Signed [facility]; [facility] SERVICE DATE: 06/26/2017 SERVICE TIME: 8:08 AM REASON FOR CONSULT: I am asked to see this patient in consultation for my opinion regarding CKD. My recommendations will be communicated by way of shared medical record, fax, or mail. REQUESTING PHYSICIAN: Martin Booth DO PRIMARY CARE PHYSICIAN: Anisa Caldwell MD CHIEF COMPLAINT: CKD HPI: Ms. Joshi is a 62 year old female who presents with CKD and HTN. Increase in creatinine since 2012. Level fluctuates. Baseline creatinine is 1.2. Had an increase in creatinine in March to 1.5. Unclear what occurred at that time. 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 Was on 100 mg bid. Kidney function declined and the dose was reduced to 50mg bid. Currently low levels. HTN diagnosed about 10 years. Currently on amlodipine, atenolol, spironolactone Bumex and doxazosin. Is on bumex for HTN and was no lasix because of allergic reaction to one of the components of it. ? Duration (when): 2012 ? Location (where): kidneys ? Severity (ex: creat 4.5, BP 200/100): cr 1.8 ? Quality (ex: sharp, dull): na ? Context (ex: activity at onset or related to condition): cyclosporin ? Timing (ex: continuous, intermittent): intermittent PAST MEDICAL HISTORY: PAST MEDICAL HISTORY Diagnosis Date - Abdominal pain, other specified site - ACNE NEC 01/21/2008 - Actinic Keratosis (Premalignant AK) 06/05/2011 - ACUTE GASTRITIS W/O HEMORRHAGE 04/26/2007 - Allergic rhinitis 04/23/2012 - Anaphylactic reaction ideopathic - Benign tumor of adrenal gland - Biliary dyskinesia 10/29/2009 - Cervical herniated disc 10/20/2016 - Cervical myelopathy (HCC) 10/25/2016 - Cervical radiculitis 10/20/2016 - Cervical spondylosis with radiculopathy 11/17/2015 - JAIN ANGIOMA///NEVUS, NON-NEOPLASTIC 05/28/2007 - CKD (chronic kidney disease) stage 3, GFR 30-59 ml/min 04/29/2013 - Diaphragmatic hernia without mention of obstruction or gangrene 05/25/2011 - Diverticulosis of colon (without mention of hemorrhage) - Edema 07/07/2004 - Epigastric pain - GERD (gastroesophageal reflux disease) - HTN (hypertension) 2002 controlled on Diovan - Hyperlipidemia 10/15/2013 - IRON DEFIC ANEMIA NOS 04/26/2007 - Moderate persistent asthma without complication 02/18/2015 - Ovarian cyst Benign ovarian cyst, S/P laparoscopic LSO - Ptosis of eyelid, bilateral 12/23/2016 Added automatically from request for surgery [id number] - Shoulder impingement 11/17/2015 - Sleep apnea intollerant to CPAP because allergic to material on mask - Steroid-induced hyperglycemia 09/06/2014 - TACHYCARDIA NOS 01/09/2006 - Tarsal tunnel syndrome 12/23/2009 - Tear of lateral meniscus of knee 02/21/2014 - Ulcerative colitis, unspecified - UTERINE LEIOMYOMA NOS 12/23/2005 - VIRAL WARTS NOS 05/09/2006 - Vocal cord dysfunction PAST SURGICAL HISTORY: PAST SURGICAL HISTORY Procedure Laterality Date - CHOLECYSTECTOMY HX - COLONOSCOP W/ OR W/O [facility] SPEC 09/06/2005 Colonoscopy - COLONOSCOP W/ OR W/O [facility] SPEC Colonoscopy - COLONOSCOP W/ OR W/O [facility] SPEC 05/28/2012 Colonoscopy repeat 5 years. - EGD 07/29/14 normal - EGD W/O OR W/BRUSH/WASH 09/06/2005 EGD - EGD W/O OR W/BRUSH/WASH 04/26/2007 EGD - EGD W/O OR W/BRUSH/WASH 05/25/2011 EGD - EGD W/O OR W/BRUSH/WASH 05/28/2012 EGD - L'SCOPE REM ADNEX W/PART/TOT OOPH/SALP 06/11/2009 Laparoscopic LSO for benign ovarian cyst - LAMINECTOMY,CERVICAL 10/2016 - LAP CHOLECYSTECT/CHOLANGIOGRAPHY 10/30/09 Normal IOC - ORTHOPEDICS SURGERY HX 12/2013 repaired Rt achilles tendon - PAST SURGICAL HISTORY OF 09/19 left foot surgery on heel and repaired torn tdndon - SIGMOIDOSCOPY FLEX DIAG 05/20/08 - TARSAL TUNNEL RELEASE 07/2010 Left foot FAMILY HISTORY: FAMILY HISTORY Problem Relation Age of Onset - Colon Cancer Father dx age 60. Alive at 85. - Hypertension Father Alive at 85. - Cataract Father Alive at 85. - Thyroid Father Alive at 85. - Heart Father [place] at 87 - Diabetes Mother colon polyps. age 72. - Hypertension Mother age 72. - benign brainstem tumor [OTHER] Mother Persistent vegetative state. age 72. - defects Sister - Glaucoma Maternal Grandmother - Stroke Maternal Grandfather - Cancer Paternal Grandmother cervical - Colon Cancer Son 38 colon and rectal cancer - Breast Cancer Sister Developed in late 20s. Alive at 52. 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 cyanocobalamin (VITAMIN B-12) 1,000 mcg tab Take 1 tablet by mouth once daily. atenolol (TENORMIN) 25 mg tablet Take 1 tablet by mouth once daily. levalbuterol tartrate HFA (XOPENEX HFA) 45 mcg/actuation inhaler Inhale 1-2 Puffs as instructed every 6 hours as needed for Wheezing/Shortness of Breath. EPINEPHrine (EPIPEN) 0.3 mg/0.3 mL auto-injector Inject 0.3 mL intramuscularly as needed. pregabalin (LYRICA) 150 mg capsule Take 1 capsule by mouth twice daily for 181 days. predniSONE (DELTASONE) 10 mg tablet Take 2.5 tablets by mouth once daily. ergocalciferol, vitamin D2, (VITAMIN D) 50,000 unit capsule Take 1 capsule by mouth once each week. TURMERIC ROOT EXTRACT ORAL Take 1 tablet by mouth twice daily. nitroglycerin sublingual (NITROQUICK) 0.4 mg SL tablet DISSOLVE 1 TABLET UNDER THE TONGUE NEEDED FOR CHEST PAIN IF NO RELIEF CALL 911 budesonide (PULMICORT) 0.5 mg/2 mL nebulizer solution Use 1 Ampule via nebulizer twice daily. crisaborole (EUCRISA) 2 % oint Apply to the hands twice daily COMPOUNDED PRESCRIPTION Please provide patient with nebulizer machine and supplies.Diagnosis: Severe Asthma. fluticasone-vilanterol (BREO ELLIPTA) 100-25 mcg/dose inhaler Inhale 1 Inhalation as instructed once daily. cetirizine (ZYRTEC) 10 mg tablet Take 10 mg by mouth once daily. pimecrolimus (ELIDEL) 1 % cream Apply twice daily to the hands spironolactone (ALDACTONE) 50 mg tablet Take 1 tablet by mouth twice daily. ondansetron (ZOFRAN) 4 mg tablet Take 1 tablet by mouth every 8 hours as needed. Cholestyramine, Bulk, powd Take 1 scoop by mouth once daily. bumetanide (BUMEX) 0.5 mg tablet Take 1 tablet by mouth once daily. lansoprazole (PREVACID) 30 mg capsule Take 1 capsule by mouth twice daily. Azelastine 0.15 % (205.5 mcg) spry Use 1 Wilberforce in each nostril twice daily. levalbuterol (XOPENEX) 1.25 mg/3 mL nebulizer solution Use 1 Ampule via nebulizer every 4 hours as needed. Inhale over 5-15 minutes fluticasone (FLONASE) 50 mcg/actuation nasal spray 1-2 sprays each side qd Benzonatate 200 mg capsule Take 200 mg by mouth three times daily as needed for Cough. lactobacillus rhamnosus (CULTURELLE) 10 billion cell capsule Take 1 capsule by mouth twice daily. famotidine (PEPCID) 20 mg tablet Take 1 tablet by mouth twice daily. diphenhydrAMINE (BENADRYL) 50 mg capsule Take 1 capsule by mouth every 6 hours as needed for Itching/Rash. amoxicillin (POLYMOX, AMOXIL) 250 mg capsule Take 250 mg by mouth once daily. zafirlukast (ACCOLATE) 20 mg tablet Take 1 tablet by mouth twice daily. doxazosin (CARDURA) 2 mg tablet Take 2 mg by mouth once daily. cycloSPORINE Modified 50 mg capsule Take 50 mg by mouth twice daily. ascorbic acid (VITAMIN C) 500 mg tablet Take 1 tablet by mouth once daily. ALLERGIES: ALLERGIES Allergen Reactions - Avocado Anaphylaxis - Banana Anaphylaxis - Carbinoxamine Anaphylaxis - Yoselin Seed Anaphylaxis - Ciprofloxacin Anaphylaxis - Codeine Anaphylaxis - Contrast Dye Anaphylaxis To MRI and CT - Fish Anaphylaxis - Hycodan [Hydrocodon* Anaphylaxis Face and throat swelling - Latex Anaphylaxis - Imtiaz-Synephrine [Phe* Anaphylaxis 10% eye drop - Nickel Rash, Hives, Anaphylaxis - Nsaids (Non-Steroid* Other: See Comments Kidney function drops; reversible kidney damage. - Oxycodone Anaphylaxis - Periactin [Cyprohep* Anaphylaxis - Pneumococcal Vaccine Anaphylaxis - Shellfish Anaphylaxis - Zantac [Ranitidine] Anaphylaxis - Ativan [Lorazepam] Other: See Comments hallucination - Beef Containing Pro* Rash - Berino Other: See Comments Feels like an asthma attack. - Eggs [Egg] Rash, Vomiting - Ekg Leads [Adhesive] Rash Localized,only under the leads - Influenza Virus Vac* Shortness of Breath - Lisinopril Cough - Milk Rash, Vomiting - Mometasone Anaphylaxis Per Dr. Salas she tolerates formoterol (on Breo at home) but is allergic to mometasone. Okayed by him to update. - Xolair [Omalizumab] Shortness of Breath - Environmental [Othe* Other: See Comments Nasal congestion, brings on an asthma attack. - Surgical Tape [Othe* Rash, Swelling Oral rash, swelling of eyes, asthma attacks; per pateint report. REVIEW OF SYSTEMS: General: Negative for weight loss, night sweats, fever, and fatigue Head/Neck: Negative for photophobia, oral ulcers/sores, metallic or bitter taste, epistaxis, and chronic nasal congestion Cardiac: Negative for syncope, palpitations, orthopnea, lightheadedness, dizziness, chest pain or pressure, and PND Vascular: Negative for raynauds, edema, and claudication Pulmonary: Negative for hemoptosis, dyspnea, and cough GastroIntestinal: Positive for abdominal pain; Negative for nausea, loss of appetite, emesis, diarrhea, and constipation Genito-Urinary: Negative for urinary hesitancy, urinary frequency, straining, pink or red urine, pain with urination, nocturia, groin pain, frothy urine, flank pain, and decreased urine Musculoskeletal: Negative for joint swelling, and joint pain Neurologic: Negative for weakness, tremor, parathesias, and numbness Skin: Negative for rash, photosensitivity, and malar rash Hematology: Negative for easy bruising, and easy bleeding Endocrinology: Negative for hypoglycemic events, and heat or cold intolerance Other: Negative for morning headache, excessive snoring, and daytime somnolence PHYSICAL EXAM: BP 139/83 Pulse 79 Ht 162.6 cm (5' 4ANDquot;) Wt 93 kg (205 lb) LMP 08/07/2013 BMI 35.19 kg/m2 Average BP (BpTru): 139/83 BpTRU BP #1 discard value (BpTru): 143/84 Pulse #1 Discard Value (BpTru): 79 beats/min BP #2 (BpTru): 149/84 Pulse #2 (BpTru): 80 beats/min BP #3 (BpTru): 137/87 Pulse #3 (BpTru): 81 beats/min BP #4 (BpTru): 138/82 Pulse #4 (BpTru): 81 beats/min BP #5 (BpTru): 137/80 Pulse #5 (BpTru): 77 beats/min BP #6 (BpTru): 135/80 Pulse #6 (BpTru): 76 beats/min Average BP (BpTru): 139/83 Average Pulse (BpTru): 79 beats/min BP cuff location: Left upper arm BP cuff size: large adult Constitutional: No acute distress, well nourished Eyes: Conjunctiva clear, extra-ocular movements intact Ear, Nose, and Throat: Lips and dentition normal Neck: trachea midline, no palpable mass Cardiovascular: RRR, nl S1/S2, no murmurs, no peripheral edema Respiratory: normal inspiratory effort, CTA b/l Abdomen: soft, non tender, non distended Musculoskeletal: normocephalic, no muscle weakness Neurologic: normal sensation, CN II-XII intact Psychiatric: AAO x 3, normal affect Skin: No rashes, skin dry DATA: Diagnostic tests reviewed for today's visit: Recent Labs 06/26/17 0754 04/19/17 1041 04/12/17 1159 11/18/16 1200 COLOR Yellow Yellow Yellow ANDlt; ANDgt; Yellow CLARITY Cloudy* Cloudy* Cloudy* ANDlt; ANDgt; Clear UGLUC Negative Negative Negative ANDlt; ANDgt; Negative UBILI Negative Negative Negative ANDlt; ANDgt; Negative UKET Negative Trace* Negative ANDlt; ANDgt; Negative SPGR 1.016 1.023 1.021 ANDlt; ANDgt; 1.009 UHB Negative Negative Negative ANDlt; ANDgt; Negative UPH 6.0 5.0 5.0 ANDlt; ANDgt; 8.0 UPROT Negative 30* Negative ANDlt; ANDgt; Negative NITRITES Negative Negative Negative ANDlt; ANDgt; Negative LEUKEST Negative Trace* Trace* ANDlt; ANDgt; 1+* UWBC -- 0-5 0-5 -- 0-5 URBC -- 0-3 0-3 -- 0-3 ANDlt; ANDgt; = values in this interval not displayed. BUN (mg/dL) Date Value 04/12/2017 24 04/12/2017 24 04/05/2017 20 03/17/2017 22 01/23/2017 33 11/19/2016 21 11/18/2016 18 11/15/2016 14 Creatinine (mg/dL) Date Value 04/12/2017 1.48 04/12/2017 1.51 04/05/2017 1.19 03/17/2017 1.14 01/23/2017 1.35 11/19/2016 1.25 11/18/2016 1.21 11/15/2016 1.04 eGFR- (no units) Date Value 04/12/2017 43 04/12/2017 42 04/05/2017 56 03/17/2017 59 01/23/2017 48 11/19/2016 53 11/18/2016 55 11/15/2016 ANDgt;60 eGFR-All Other Races (.) Date Value 04/12/2017 36 04/12/2017 35 04/05/2017 46 03/17/2017 49 01/23/2017 40 11/19/2016 44 11/18/2016 45 11/15/2016 54 PTH, Intact (pg/mL) Date Value 06/16/2016 44 11/05/2015 40 05/11/2015 41 Vitamin D 25 Hydroxy (ng/mL) Date Value 12/17/2013 34.1 10/21/2013 37.0 Iron (ug/dL) Date Value 04/12/2017 144 Transferrin Saturation (%) Date Value 04/12/2017 42 Ferritin (ng/mL) Date Value 04/12/2017 48.0 ASSESSMENT: 62 year old female who presents with CKD ASSESSMENT/PLAN: 1. CKD (chronic kidney disease) stage 3, GFR 30-59 ml/min (HCC) - ICD9: 585.3, ICD10: N18.3 (primary diagnosis) Secondary to chronic calcineurin inhibitor nephrotoxicity and HTN Creatinine fluctuates Will repeat renal function and all ckd labs including PCR and ACR She will talk to her clerical investigator about options for IS in case that is needed in the future. For now continue current medications Follow up in 3 months - RENAL FUNCTION PANEL - CBC + DIFF - VITAMIN D 25 HYDROXY - PTH INTACT BLD - ALDOSTERONE BLD - RENAL FUNCTION PANEL - PROTEIN CREATININE RATIO - ALBUMIN/CREAT RATIO RND UR 2. Essential hypertension - ICD9: 401.9, ICD10: I10 - good control - Recommended regular aerobic exercise. - Recommend home blood pressure monitoring, to bring results in on next visit - Goal of BP ANDlt;130/80 3. Adrenal mass (HCC) - ICD9: 255.9, ICD10: E27.9 Followed by endocrinology Will repeat chang levels Patient wants to consider surgery if it is an option. She has been evaluated for it in the past but never had adrenal vein sampling. Usually we like to maximize spironolactone before adding other bp meds For now continue current tx because she is controlled. - ALDOSTERONE BLD SIGNATURE: Pilar Ward MD PATIENT NAME: Ralph Joshi DATE: June 26, 2017 TIME: 8:08 AM OFFICE NUMBER: [id number] CC: REFERRING PROVIDER: Martin Booth DO PRIMARY CARE PHYSICIAN: Anisa Caldwell MD Referring Provider: MARTIN BOOTH [[id number]] Allergies As of Date: 06/26/2017 Noted Allergy Reaction AVOCADO 09/10/2014 10 - Anaphylaxis BANANA 09/10/2014 10 - Anaphylaxis CARBINOXAMINE 09/17/2012 10 - Anaphylaxis YOSELIN SEED 08/28/2013 10 - Anaphylaxis CIPROFLOXACIN 04/11/2014 10 - Anaphylaxis CODEINE 01/12/2012 10 - Anaphylaxis CONTRAST DYE 05/17/2013 10 - Anaphylaxis Comments: To MRI and CT FISH 09/07/2014 10 - Anaphylaxis HYCODAN (HYDROCODONE-HOMATROPINE) 09/08/2011 10 - Anaphylaxis Comments: Face and throat swelling LATEX 01/21/2014 10 - Anaphylaxis IMTIAZ-SYNEPHRINE (PHENYLEPHRINE HCL)09/04/2014 10 - Anaphylaxis Comments: 10% eye drop NICKEL 01/07/2014 2 - Rash 4 - Hives 10 - Anaphylaxis NSAIDS (NON-STEROIDAL ANTI-INFLAM*08/16/2010 14 - Other: See Comments Comments: Kidney function drops; reversible kidney damage. OXYCODONE 08/28/2013 10 - Anaphylaxis PERIACTIN (CYPROHEPTADINE) 09/17/2012 10 - Anaphylaxis PNEUMOCOCCAL VACCINE 10/31/2014 10 - Anaphylaxis SHELLFISH 09/07/2014 10 - Anaphylaxis ZANTAC (RANITIDINE) 09/17/2012 10 - Anaphylaxis ATIVAN (LORAZEPAM) 08/28/2013 14 - Other: See Comments Comments: hallucination BEEF CONTAINING PRODUCTS 09/10/2014 2 - Rash CORN 05/03/2011 14 - Other: See Comments Comments: Feels like an asthma attack. EGGS (EGG) 03/08/2011 2 - Rash 11 - Vomiting EKG LEADS (ADHESIVE) 10/22/2012 2 - Rash Comments: Localized,only under the leads INFLUENZA VIRUS VACCINES 10/22/2012 12 - Shortness of Breath LISINOPRIL 04/20/2004 3 - Cough MILK 03/08/2011 2 - Rash 11 - Vomiting MOMETASONE 04/05/2017 10 - Anaphylaxis Comments: Per Dr. Salas she tolerates formoterol (on Breo at home) but is allergic to mometasone. Okayed by him to update. XOLAIR (OMALIZUMAB) 04/19/2012 12 - Shortness of Breath environmental [Other] 06/26/2007 14 - Other: See Comments Comments: Nasal congestion, brings on an asthma attack. surgical tape [Other] 11/10/2009 2 - Rash 7 - Swelling Comments: Oral rash, swelling of eyes, asthma attacks; per pateint report. Date Reviewed: 06/26/2017 Reviewed by: Pilar Ward - Fully Assessed Primary Visit Diagnosis:CKD (chronic kidney disease) stage 3, GFR 30-59 ml/min ([facility]) [N18.3] Other Visit Diagnoses:Essential hypertension [I10] Adrenal mass ([facility]) [E27.9] Screening for genitourinary condition [Z13.89] Order(s):UA CHEMSTRIP ONLY [SQUA] Order #: [id number] FUTURE UA CHEMSTRIP ONLY [SQUA] Order #: [id number]. #:[id number] RENAL FUNCTION PANEL [SQRFP] Order #: [id number] FUTURE CBC + DIFF [SQCBCDIF] Order #: [id number] FUTURE VITAMIN D 25 HYDROXY [SQVITD] Order #: [id number] FUTURE PTH INTACT BLD [SQPTHI] Order #: [id number] FUTURE ALDOSTERONE BLD [SQALDO] Order #: [id number] FUTURE RENAL FUNCTION PANEL [SQRFP] Order #: [id number] FUTURE PROTEIN CREATININE RATIO [SQPRATIO] Order #: [id number] ALBUMIN/CREAT RATIO RND UR [SQUACR] Order #: [id number] FUTURE Prescriptions as of 06/26/2017 Sig: AMLODIPINE 10 MG TABLET Take 0.5 tablets by mouth onc* CYANOCOBALAMIN (VIT B-12) 1,0* Take 1 tablet by mouth once d* ATENOLOL 25 MG TABLET Take 1 tablet by mouth once d* LEVALBUTEROL HFA 45 MCG/ACTUA* Inhale 1-2 Puffs as instructe* EPINEPHRINE 0.3 MG/0.3 ML INJ* Inject 0.3 mL intramuscularly* PREGABALIN 150 MG CAPSULE Take 1 capsule by mouth twice* PREDNISONE 10 MG TABLET Take 2.5 tablets by mouth onc* Patient taking differently: Take 25 mg by mouth once mary ellen* ERGOCALCIFEROL (VITAMIN D2) 5* Take 1 capsule by mouth once * Patient taking differently: Take 50,000 Units by mouth on* TURMERIC ROOT EXTRACT ORAL Take 1 tablet by mouth twice * NITROGLYCERIN 0.4 MG SUBLINGU* DISSOLVE 1 TABLET UNDER THE T* BUDESONIDE 0.5 MG/2 ML SUSPEN* Use 1 Ampule via nebulizer tw* CRISABOROLE 2 % TOPICAL OINTM* Apply to the hands twice daily COMPOUNDED PRESCRIPTION Please provide patient with n* FLUTICASONE 100 MCG-VILANTERO* Inhale 1 Inhalation as instru* CETIRIZINE 10 MG TABLET Take 10 mg by mouth once mary ellen* PIMECROLIMUS 1 % TOPICAL CREAM Apply twice daily to the hands SPIRONOLACTONE 50 MG TABLET Take 1 tablet by mouth twice * ONDANSETRON HCL 4 MG TABLET Take 1 tablet by mouth every * CHOLESTYRAMINE (BULK) POWDER Take 1 scoop by mouth once da* BUMETANIDE 0.5 MG TABLET Take 1 tablet by mouth once d* LANSOPRAZOLE 30 MG CAPSULE,DE* Take 1 capsule by mouth twice* AZELASTINE 0.15 % (205.5 MCG)* Use 1 Wilberforce in each nostril t* LEVALBUTEROL 1.25 MG/3 ML BRENDA* Use 1 Ampule via nebulizer ev* FLUTICASONE 50 MCG/ACTUATION * 1-2 sprays each side qd BENZONATATE 200 MG CAPSULE Take 200 mg by mouth three ti* LACTOBACILLUS RHAMNOSUS GG 10* Take 1 capsule by mouth twice* FAMOTIDINE 20 MG TABLET Take 1 tablet by mouth twice * Patient taking differently: Take 20 mg by mouth twice liam* DIPHENHYDRAMINE 50 MG CAPSULE Take 1 capsule by mouth every* AMOXICILLIN 250 MG CAPSULE Take 250 mg by mouth once liam* ZAFIRLUKAST 20 MG TABLET Take 1 tablet by mouth twice * DOXAZOSIN 2 MG TABLET Take 2 mg by mouth once daily. CYCLOSPORINE MODIFIED 50 MG C* Take 50 mg by mouth twice liam* ASCORBIC ACID (VITAMIN C) 500* Take 1 tablet by mouth once d* Problem List As Of Date 06/26/2017 Noted Resolved JOINT PAIN-ANKLE [M25.579] INVALID FOR*03/20/2014 Edema [R60.9] INVALID FOR*03/28/2016 Priority: I Adrenal nodule (HCC) [E27.9] INVALID FOR* More... Diarrhea [R19.7] INVALID FOR*10/15/2013 Excessive or frequent menstruation [N92.0] INVALID FOR*07/14/2011 Shortness of breath [R06.02] INVALID FOR*10/15/2013 Palpitations [R00.2] INVALID FOR*03/20/2014 Tachycardia, unspecified [R00.0] INVALID FOR*10/15/2013 More... Open wound site NOS [T14.8XXA] INVALID FOR*07/16/2011 Abdominal pain, right upper quadrant [R10.11] INVALID FOR*07/14/2011 More... Acute gastritis without mention of hemorrhage [*INVALID FOR*10/15/2013 Hematuria [599.7] INVALID FOR*07/14/2011 URGE INCONTINENCE [N39.41] INVALID FOR* FEMALE STRESS INCONTINENCE [N39.3] INVALID FOR* Scar, hypertrophic [L91.0] INVALID FOR*10/15/2013 Ovarian cyst [N83.209] INVALID FOR*07/06/2010 Cyst INVALID FOR*10/15/2013 Other specified pre-operative examination [Z01.*INVALID FOR*07/16/2011 Hirsutism [L68.0] INVALID FOR* Dysphagia [R13.10] INVALID FOR*03/20/2014 GERD (gastroesophageal reflux disease) [K21.9] INVALID FOR* Priority: D More... 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 Obesity (BMI 30.0-34.9) [E66.9] INVALID FOR* More... More... More... More... Idiopathic anaphylaxis [T78.2XXA] INVALID FOR* Priority: A More... Urticaria, idiopathic [L50.1] INVALID FOR*03/28/2016 More... Hyperlipidemia [E78.5] INVALID FOR* Impaired fasting glucose [R73.01] INVALID FOR* Recurrent chest pain [R07.9, G89.29] INVALID FOR*12/09/2014 Multinodular goiter [E04.2] INVALID FOR* More... CKD (chronic kidney disease) stage 3, GFR 30-59*INVALID FOR* Pain in joint, ankle and foot [M25.579] INVALID FOR*12/09/2014 More... More... Steroid-induced hyperglycemia [R73.9, T38.0X5A] INVALID FOR*03/28/2016 Priority: C Moderate persistent asthma without complication*INVALID FOR* Ulcerative colitis without complications (HCC) *INVALID FOR* Anaphylaxis [T78.2XXA] INVALID FOR*03/26/2015 More... Neck pain, bilateral [M54.2] INVALID FOR*03/28/2016 Essential hypertension with goal blood pressure*INVALID FOR*03/28/2016 Chronic nausea [R11.0] INVALID FOR* Lumbar radiculitis [M54.16] INVALID FOR*03/28/2016 Lumbar stenosis [M48.061] INVALID FOR*03/28/2016 Acquired spondylolisthesis [M43.10] INVALID FOR*03/28/2016 Cervical radiculitis [M54.12] INVALID FOR*03/28/2016 Cervical spondylosis with radiculopathy [M47.22]INVALID FOR*03/29/2017 Shoulder impingement [M75.40] INVALID FOR*03/28/2016 Anaphylaxis [T78.2XXA] INVALID FOR*03/28/2016 Tendonitis, tibialis [M76.829] INVALID FOR*05/09/2016 Lumbar stenosis [M48.061] INVALID FOR* Cervical radiculitis [M54.12] INVALID FOR*03/29/2017 Cervical herniated disc [M50.20] INVALID FOR*03/29/2017 Cervical stenosis of spine [M48.02] INVALID FOR* Cervical spondylosis with myelopathy [M47.12] INVALID FOR*03/29/2017 Cervical myelopathy (HCC) [G95.9] INVALID FOR*03/29/2017 Claustrophobia [F40.240] INVALID FOR* Ptosis of eyelid, bilateral [H02.403] INVALID FOR*03/29/2017 More... Lumbar spondylosis [M47.816] INVALID FOR* More... Preop testing [Z01.818] INVALID FOR* More... Anaphylaxis [T78.2XXA] INVALID FOR* Essential hypertension [I10] INVALID FOR* Disposition: Return in about 3 months (around 09/26/2017). Follow-up and Disposition History Recorded Encounter Status:Closed by PILAR WARD MD on 06/26/17 LIPID PANEL, BASIC Collected: 06/22/2017 Status: F Source: [place] 11:19 AM [facility] REPOSITORY TYPE CODE TESTS RESULT OUT OF REFERENCE UNITS RANGE LAB CHOL <200 mg/dL Cholesterol High 213 Result Comment: <200 mg/dL, Desirable 200-239 mg/dL, Borderline high >239 mg/dL, High LAB TRIGLY <150 mg/dL Triglyceride 140 Result Comment: <150 mg/dL, Normal 150-199 mg/dL, Borderline high 200-499 mg/dL, High >499 mg/dL, Very high LAB HDL >39 mg/dL HDL-Cholesterol 50 Result Comment: 40-59 mg/dL, Acceptable >59 mg/dL, High: Negative risk factor for coronary heart disease <40 mg/dL, Low: Positive risk factor for coronary heart disease LAB LDL <100 mg/dL LDL-Cholesterol High 135 Result Comment: <100 mg/dL, Optimal 100-129 mg/dL, Near optimal/above optimal 130-159 mg/dL, Borderline high 160-189 mg/dL, High >189 mg/dL, Very high Secondary prevention optimal LDL Cholesterol levels are recommended to be < 70 mg/dL LAB NONHDL <130 mg/dL Non HDL High Cholesterol 163 Result Comment: <130 mg/dL, Optimal 130-159 mg/dL, Near optimal/above optimal 160-189 mg/dL, Borderline high 190-219 mg/dL, High >219 mg/dL, Very high Secondary prevention optimal non HDL Cholesterol levels are recommended to be < 100 mg/dL LAB FT hrs Fasting Time 12 LAB VLDL <30 mg/dL VLDL Cholesterol 28 LAB TCHDL <5.10 TC:HDL Ratio 4.26 LAB LDLHDL <2.54 High LDL:HDL Ratio 2.70 Result Comment: Reference: 1. National Cholesterol Education Program ATP III Guideline At-A-Glance Quick Desk Reference: National Heart, Lung, and [place]. National Institutes of Health. 2001: NIH Publication No. 01-3305. 2. An International Atherosclerosis Society position paper: global recommendations for the management of dyslipidemia: executive summary, Atherosclerosis. 2014: 232(2):410-413. Performed By: #### LIPB #### [facility] [address], [place] [address] PROGRESS Observed: 06/20/2017 Status: COMPLETED Source: [place] 10:45 AM [facility] REPOSITORY O ID: [id number] Author: Isaiah Harris Service: (none) Author Type: Physician Type: Progress Notes Filed: 06/21/2017 11:37 PM Note Text: SUBJECTIVE: Patient is a 62 year old patient here for follow up bp has been running low no orthostatics. feeling well otherwise Acknowledges that she still needs to lose weight Current Outpatient Prescriptions: amLODIPine (NORVASC) 10 mg tablet Take 0.5 tablets by mouth once daily. cyanocobalamin (VITAMIN B-12) 1,000 mcg tab Take 1 tablet by mouth once daily. atenolol (TENORMIN) 25 mg tablet Take 1 tablet by mouth once daily. levalbuterol tartrate HFA (XOPENEX HFA) 45 mcg/actuation inhaler Inhale 1-2 Puffs as instructed every 6 hours as needed for Wheezing/Shortness of Breath. EPINEPHrine (EPIPEN) 0.3 mg/0.3 mL auto-injector Inject 0.3 mL intramuscularly as needed. pregabalin (LYRICA) 150 mg capsule Take 1 capsule by mouth twice daily for 181 days. predniSONE (DELTASONE) 10 mg tablet Take 2.5 tablets by mouth once daily. (Patient taking differently: Take 25 mg by mouth once daily. Total 25 mg daily ) ergocalciferol, vitamin D2, (VITAMIN D) 50,000 unit capsule Take 1 capsule by mouth once each week. (Patient taking differently: Take 50,000 Units by mouth once each week. Every Monday ) TURMERIC ROOT EXTRACT ORAL Take 1 tablet by mouth twice daily. nitroglycerin sublingual (NITROQUICK) 0.4 mg SL tablet DISSOLVE 1 TABLET UNDER THE TONGUE NEEDED FOR CHEST PAIN IF NO RELIEF CALL 911 budesonide (PULMICORT) 0.5 mg/2 mL nebulizer solution Use 1 Ampule via nebulizer twice daily. crisaborole (EUCRISA) 2 % oint Apply to the hands twice daily COMPOUNDED PRESCRIPTION Please provide patient with nebulizer machine and supplies.Diagnosis: Severe Asthma. fluticasone-vilanterol (BREO ELLIPTA) 100-25 mcg/dose inhaler Inhale 1 Inhalation as instructed once daily. cetirizine (ZYRTEC) 10 mg tablet Take 10 mg by mouth once daily. pimecrolimus (ELIDEL) 1 % cream Apply twice daily to the hands spironolactone (ALDACTONE) 50 mg tablet Take 1 tablet by mouth twice daily. ondansetron (ZOFRAN) 4 mg tablet Take 1 tablet by mouth every 8 hours as needed. Cholestyramine, Bulk, powd Take 1 scoop by mouth once daily. bumetanide (BUMEX) 0.5 mg tablet Take 1 tablet by mouth once daily. lansoprazole (PREVACID) 30 mg capsule Take 1 capsule by mouth twice daily. Azelastine 0.15 % (205.5 mcg) spry Use 1 Wilberforce in each nostril twice daily. levalbuterol (XOPENEX) 1.25 mg/3 mL nebulizer solution Use 1 Ampule via nebulizer every 4 hours as needed. Inhale over 5-15 minutes fluticasone (FLONASE) 50 mcg/actuation nasal spray 1-2 sprays each side qd Benzonatate 200 mg capsule Take 200 mg by mouth three times daily as needed for Cough. lactobacillus rhamnosus (CULTURELLE) 10 billion cell capsule Take 1 capsule by mouth twice daily. famotidine (PEPCID) 20 mg tablet Take 1 tablet by mouth twice daily. (Patient taking differently: Take 20 mg by mouth twice daily. as needed ) diphenhydrAMINE (BENADRYL) 50 mg capsule Take 1 capsule by mouth every 6 hours as needed for Itching/Rash. amoxicillin (POLYMOX, AMOXIL) 250 mg capsule Take 250 mg by mouth once daily. zafirlukast (ACCOLATE) 20 mg tablet Take 1 tablet by mouth twice daily. doxazosin (CARDURA) 2 mg tablet Take 2 mg by mouth once daily. cycloSPORINE Modified 50 mg capsule Take 50 mg by mouth twice daily. ascorbic acid (VITAMIN C) 500 mg tablet Take 1 tablet by mouth once daily. No current facility-administered medications for this visit. PAST MEDICAL HISTORY Diagnosis Date - Abdominal pain, other specified site - ACNE NEC 01/21/2008 - Actinic Keratosis (Premalignant AK) 06/05/2011 - ACUTE GASTRITIS W/O HEMORRHAGE 04/26/2007 - Allergic rhinitis 04/23/2012 - Anaphylactic reaction ideopathic - Benign tumor of adrenal gland - Biliary dyskinesia 10/29/2009 - Cervical herniated disc 10/20/2016 - Cervical myelopathy (HCC) 10/25/2016 - Cervical radiculitis 10/20/2016 - Cervical spondylosis with radiculopathy 11/17/2015 - JAIN ANGIOMA///NEVUS, NON-NEOPLASTIC 05/28/2007 - CKD (chronic kidney disease) stage 3, GFR 30-59 ml/min 04/29/2013 - Diaphragmatic hernia without mention of obstruction or gangrene 05/25/2011 - Diverticulosis of colon (without mention of hemorrhage) - Edema 07/07/2004 - Epigastric pain - GERD (gastroesophageal reflux disease) - HTN (hypertension) 2002 controlled on Diovan - Hyperlipidemia 10/15/2013 - IRON DEFIC ANEMIA NOS 04/26/2007 - Moderate persistent asthma without complication 02/18/2015 - Ovarian cyst Benign ovarian cyst, S/P laparoscopic LSO - Ptosis of eyelid, bilateral 12/23/2016 Added automatically from request for surgery [id number] - Shoulder impingement 11/17/2015 - Sleep apnea intollerant to CPAP because allergic to material on mask - Steroid-induced hyperglycemia 09/06/2014 - TACHYCARDIA NOS 01/09/2006 - Tarsal tunnel syndrome 12/23/2009 - Tear of lateral meniscus of knee 02/21/2014 - Ulcerative colitis, unspecified - UTERINE LEIOMYOMA NOS 12/23/2005 - VIRAL WARTS NOS 05/09/2006 - Vocal cord dysfunction ALLERGIES Allergen Reactions - Avocado Anaphylaxis - Banana Anaphylaxis - Carbinoxamine Anaphylaxis - Yoselin Seed Anaphylaxis - Ciprofloxacin Anaphylaxis - Codeine Anaphylaxis - Contrast Dye Anaphylaxis To MRI and CT - Fish Anaphylaxis - Hycodan [Hydrocodon* Anaphylaxis Face and throat swelling - Latex Anaphylaxis - Imtiaz-Synephrine [Phe* Anaphylaxis 10% eye drop - Nickel Rash, Hives, Anaphylaxis - Nsaids (Non-Steroid* Other: See Comments Kidney function drops; reversible kidney damage. - Oxycodone Anaphylaxis - Periactin [Cyprohep* Anaphylaxis - Pneumococcal Vaccine Anaphylaxis - Shellfish Anaphylaxis - Zantac [Ranitidine] Anaphylaxis - Ativan [Lorazepam] Other: See Comments hallucination - Beef Containing Pro* Rash - Berino Other: See Comments Feels like an asthma attack. - Eggs [Egg] Rash, Vomiting - Ekg Leads [Adhesive] Rash Localized,only under the leads - Influenza Virus Vac* Shortness of Breath - Lisinopril Cough - Milk Rash, Vomiting - Mometasone Anaphylaxis Per Dr. Salas she tolerates formoterol (on Breo at home) but is allergic to mometasone. Okayed by him to update. - Xolair [Omalizumab] Shortness of Breath - Environmental [Othe* Other: See Comments Nasal congestion, brings on an asthma attack. - Surgical Tape [Othe* Rash, Swelling Oral rash, swelling of eyes, asthma attacks; per pateint report. 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 Alive at 85. - Hypertension Father Alive at 85. - Cataract Father Alive at 85. - Thyroid Father Alive at 85. - Heart Father [place] at 87 - Diabetes Mother colon polyps. age 72. - Hypertension Mother age 72. - benign brainstem tumor [OTHER] Mother Persistent vegetative state. age 72. - defects Sister infant - Glaucoma Maternal Grandmother - Stroke Maternal Grandfather - Cancer Paternal Grandmother cervical - Colon Cancer Son 38 colon and rectal cancer - Breast Cancer Sister Developed in late 20s. Alive at 52. - Osteoporosis Sister - colon polyps [OTHER] Sister 3 sisters with colon polyps Physical Exam: APPEARANCE Pleasant, in no acute distress EYES PERRLA, conjunctiva and sclera normal NECK Neck supple, no adenopathy; thyroid symmetric, normal size. No bruits HEART RRR with normal S1 and S2 ,no murmurs, no gallops, no JVD appreciated LUNG clear to auscultation ABDOMEN bowel sounds normoactive,no bruits, soft, nontender, without organomegaly, or palpable masses. EXT no edema Assessment/Plan: HTN low readings no orthostatics but decrease regimen: take 1/2 tab amlodipine 10 mg daily continue atenolol 25 mg daily Isaiah Harris MD CNOV Observed: 06/20/2017 Status: COMPLETED Source: [place] 10:40 AM [facility] REPOSITORY Office Visit (INTMIN) RALPH JOSHI ([id number]) 1955 F Date Time Provider Department 06/20/17 10:40 AM ISAIAH HARRIS During your visit today, we recorded the following information about you: Temperature Pulse Blood pressure Weight 98.3 degrees 74/minute 110/70 93 kg Isaiah Harris MD 06/21/2017 11:37 PM Signed SUBJECTIVE: Patient is a 62 year old patient here for follow up bp has been running low no orthostatics. feeling well otherwise Acknowledges that she still needs to lose weight Current Outpatient Prescriptions: amLODIPine (NORVASC) 10 mg tablet Take 0.5 tablets by mouth once daily. cyanocobalamin (VITAMIN B-12) 1,000 mcg tab Take 1 tablet by mouth once daily. atenolol (TENORMIN) 25 mg tablet Take 1 tablet by mouth once daily. levalbuterol tartrate HFA (XOPENEX HFA) 45 mcg/actuation inhaler Inhale 1-2 Puffs as instructed every 6 hours as needed for Wheezing/Shortness of Breath. EPINEPHrine (EPIPEN) 0.3 mg/0.3 mL auto-injector Inject 0.3 mL intramuscularly as needed. pregabalin (LYRICA) 150 mg capsule Take 1 capsule by mouth twice daily for 181 days. predniSONE (DELTASONE) 10 mg tablet Take 2.5 tablets by mouth once daily. (Patient taking differently: Take 25 mg by mouth once daily. Total 25 mg daily ) ergocalciferol, vitamin D2, (VITAMIN D) 50,000 unit capsule Take 1 capsule by mouth once each week. (Patient taking differently: Take 50,000 Units by mouth once each week. Every Monday ) TURMERIC ROOT EXTRACT ORAL Take 1 tablet by mouth twice daily. nitroglycerin sublingual (NITROQUICK) 0.4 mg SL tablet DISSOLVE 1 TABLET UNDER THE TONGUE NEEDED FOR CHEST PAIN IF NO RELIEF CALL 911 budesonide (PULMICORT) 0.5 mg/2 mL nebulizer solution Use 1 Ampule via nebulizer twice daily. crisaborole (EUCRISA) 2 % oint Apply to the hands twice daily COMPOUNDED PRESCRIPTION Please provide patient with nebulizer machine and supplies.Diagnosis: Severe Asthma. fluticasone-vilanterol (BREO ELLIPTA) 100-25 mcg/dose inhaler Inhale 1 Inhalation as instructed once daily. cetirizine (ZYRTEC) 10 mg tablet Take 10 mg by mouth once daily. pimecrolimus (ELIDEL) 1 % cream Apply twice daily to the hands spironolactone (ALDACTONE) 50 mg tablet Take 1 tablet by mouth twice daily. ondansetron (ZOFRAN) 4 mg tablet Take 1 tablet by mouth every 8 hours as needed. Cholestyramine, Bulk, powd Take 1 scoop by mouth once daily. bumetanide (BUMEX) 0.5 mg tablet Take 1 tablet by mouth once daily. lansoprazole (PREVACID) 30 mg capsule Take 1 capsule by mouth twice daily. Azelastine 0.15 % (205.5 mcg) spry Use 1 Wilberforce in each nostril twice daily. levalbuterol (XOPENEX) 1.25 mg/3 mL nebulizer solution Use 1 Ampule via nebulizer every 4 hours as needed. Inhale over 5-15 minutes fluticasone (FLONASE) 50 mcg/actuation nasal spray 1-2 sprays each side qd Benzonatate 200 mg capsule Take 200 mg by mouth three times daily as needed for Cough. lactobacillus rhamnosus (CULTURELLE) 10 billion cell capsule Take 1 capsule by mouth twice daily. famotidine (PEPCID) 20 mg tablet Take 1 tablet by mouth twice daily. (Patient taking differently: Take 20 mg by mouth twice daily. as needed ) diphenhydrAMINE (BENADRYL) 50 mg capsule Take 1 capsule by mouth every 6 hours as needed for Itching/Rash. amoxicillin (POLYMOX, AMOXIL) 250 mg capsule Take 250 mg by mouth once daily. zafirlukast (ACCOLATE) 20 mg tablet Take 1 tablet by mouth twice daily. doxazosin (CARDURA) 2 mg tablet Take 2 mg by mouth once daily. cycloSPORINE Modified 50 mg capsule Take 50 mg by mouth twice daily. ascorbic acid (VITAMIN C) 500 mg tablet Take 1 tablet by mouth once daily. No current facility-administered medications for this visit. PAST MEDICAL HISTORY Diagnosis Date - Abdominal pain, other specified site - ACNE NEC 01/21/2008 - Actinic Keratosis (Premalignant AK) 06/05/2011 - ACUTE GASTRITIS W/O HEMORRHAGE 04/26/2007 - Allergic rhinitis 04/23/2012 - Anaphylactic reaction ideopathic - Benign tumor of adrenal gland - Biliary dyskinesia 10/29/2009 - Cervical herniated disc 10/20/2016 - Cervical myelopathy (HCC) 10/25/2016 - Cervical radiculitis 10/20/2016 - Cervical spondylosis with radiculopathy 11/17/2015 - JAIN ANGIOMA///NEVUS, NON-NEOPLASTIC 05/28/2007 - CKD (chronic kidney disease) stage 3, GFR 30-59 ml/min 04/29/2013 - Diaphragmatic hernia without mention of obstruction or gangrene 05/25/2011 - Diverticulosis of colon (without mention of hemorrhage) - Edema 07/07/2004 - Epigastric pain - GERD (gastroesophageal reflux disease) - HTN (hypertension) 2002 controlled on Diovan - Hyperlipidemia 10/15/2013 - IRON DEFIC ANEMIA NOS 04/26/2007 - Moderate persistent asthma without complication 02/18/2015 - Ovarian cyst Benign ovarian cyst, S/P laparoscopic LSO - Ptosis of eyelid, bilateral 12/23/2016 Added automatically from request for surgery [id number] - Shoulder impingement 11/17/2015 - Sleep apnea intollerant to CPAP because allergic to material on mask - Steroid-induced hyperglycemia 09/06/2014 - TACHYCARDIA NOS 01/09/2006 - Tarsal tunnel syndrome 12/23/2009 - Tear of lateral meniscus of knee 02/21/2014 - Ulcerative colitis, unspecified - UTERINE LEIOMYOMA NOS 12/23/2005 - VIRAL WARTS NOS 05/09/2006 - Vocal cord dysfunction ALLERGIES Allergen Reactions - Avocado Anaphylaxis - Banana Anaphylaxis - Carbinoxamine Anaphylaxis - Yoselin Seed Anaphylaxis - Ciprofloxacin Anaphylaxis - Codeine Anaphylaxis - Contrast Dye Anaphylaxis To MRI and CT - Fish Anaphylaxis - Hycodan [Hydrocodon* Anaphylaxis Face and throat swelling - Latex Anaphylaxis - Imtiaz-Synephrine [Phe* Anaphylaxis 10% eye drop - Nickel Rash, Hives, Anaphylaxis - Nsaids (Non-Steroid* Other: See Comments Kidney function drops; reversible kidney damage. - Oxycodone Anaphylaxis - Periactin [Cyprohep* Anaphylaxis - Pneumococcal Vaccine Anaphylaxis - Shellfish Anaphylaxis - Zantac [Ranitidine] Anaphylaxis - Ativan [Lorazepam] Other: See Comments hallucination - Beef Containing Pro* Rash - Berino Other: See Comments Feels like an asthma attack. - Eggs [Egg] Rash, Vomiting - Ekg Leads [Adhesive] Rash Localized,only under the leads - Influenza Virus Vac* Shortness of Breath - Lisinopril Cough - Milk Rash, Vomiting - Mometasone Anaphylaxis Per Dr. Salas she tolerates formoterol (on Breo at home) but is allergic to mometasone. Okayed by him to update. - Xolair [Omalizumab] Shortness of Breath - Environmental [Othe* Other: See Comments Nasal congestion, brings on an asthma attack. - Surgical Tape [Othe* Rash, Swelling Oral rash, swelling of eyes, asthma attacks; per pateint report. 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 Alive at 85. - Hypertension Father Alive at 85. - Cataract Father Alive at 85. - Thyroid Father Alive at 85. - Heart Father [place] at 87 - Diabetes Mother colon polyps. age 72. - Hypertension Mother age 72. - benign brainstem tumor [OTHER] Mother Persistent vegetative state. age 72. - defects Sister - Glaucoma Maternal Grandmother - Stroke Maternal Grandfather - Cancer Paternal Grandmother cervical - Colon Cancer Son 38 colon and rectal cancer - Breast Cancer Sister Developed in late 20s. Alive at 52. - Osteoporosis Sister - colon polyps [OTHER] Sister 3 sisters with colon polyps Physical Exam: APPEARANCE Pleasant, in no acute distress EYES PERRLA, conjunctiva and sclera normal NECK Neck supple, no adenopathy; thyroid symmetric, normal size. No bruits HEART RRR with normal S1 and S2 ,no murmurs, no gallops, no JVD appreciated LUNG clear to auscultation ABDOMEN bowel sounds normoactive,no bruits, soft, nontender, without organomegaly, or palpable masses. EXT no edema Assessment/Plan: HTN low readings no orthostatics but decrease regimen: take 1/2 tab amlodipine 10 mg daily continue atenolol 25 mg daily Isaiah Harris MD Referring Provider: ANISA CALDWELL [[id number]] Allergies As of Date: 06/20/2017 Noted Allergy Reaction AVOCADO 09/10/2014 10 - Anaphylaxis BANANA 09/10/2014 10 - Anaphylaxis CARBINOXAMINE 09/17/2012 10 - Anaphylaxis YOSELIN SEED 08/28/2013 10 - Anaphylaxis CIPROFLOXACIN 04/11/2014 10 - Anaphylaxis CODEINE 01/12/2012 10 - Anaphylaxis CONTRAST DYE 05/17/2013 10 - Anaphylaxis Comments: To MRI and CT FISH 09/07/2014 10 - Anaphylaxis HYCODAN (HYDROCODONE-HOMATROPINE) 09/08/2011 10 - Anaphylaxis Comments: Face and throat swelling LATEX 01/21/2014 10 - Anaphylaxis IMTIAZ-SYNEPHRINE (PHENYLEPHRINE HCL)09/04/2014 10 - Anaphylaxis Comments: 10% eye drop NICKEL 01/07/2014 2 - Rash 4 - Hives 10 - Anaphylaxis NSAIDS (NON-STEROIDAL ANTI-INFLAM*08/16/2010 14 - Other: See Comments Comments: Kidney function drops; reversible kidney damage. OXYCODONE 08/28/2013 10 - Anaphylaxis PERIACTIN (CYPROHEPTADINE) 09/17/2012 10 - Anaphylaxis PNEUMOCOCCAL VACCINE 10/31/2014 10 - Anaphylaxis SHELLFISH 09/07/2014 10 - Anaphylaxis ZANTAC (RANITIDINE) 09/17/2012 10 - Anaphylaxis ATIVAN (LORAZEPAM) 08/28/2013 14 - Other: See Comments Comments: hallucination BEEF CONTAINING PRODUCTS 09/10/2014 2 - Rash CORN 05/03/2011 14 - Other: See Comments Comments: Feels like an asthma attack. EGGS (EGG) 03/08/2011 2 - Rash 11 - Vomiting EKG LEADS (ADHESIVE) 10/22/2012 2 - Rash Comments: Localized,only under the leads INFLUENZA VIRUS VACCINES 10/22/2012 12 - Shortness of Breath LISINOPRIL 04/20/2004 3 - Cough MILK 03/08/2011 2 - Rash 11 - Vomiting MOMETASONE 04/05/2017 10 - Anaphylaxis Comments: Per Dr. Salas she tolerates formoterol (on Breo at home) but is allergic to mometasone. Okayed by him to update. XOLAIR (OMALIZUMAB) 04/19/2012 12 - Shortness of Breath environmental [Other] 06/26/2007 14 - Other: See Comments Comments: Nasal congestion, brings on an asthma attack. surgical tape [Other] 11/10/2009 2 - Rash 7 - Swelling Comments: Oral rash, swelling of eyes, asthma attacks; per pateint report. Date Reviewed: 06/20/2017 Reviewed by: Faith Cervantes Ma - Fully Assessed Reason for Visit: Follow Up [171] Primary Visit Diagnosis:Essential hypertension [I10] Other Visit Diagnoses:Obesity (BMI 30.0-34.9) [E66.9] Impaired fasting glucose [R73.01] Hyperlipidemia LDL goal <100 [E78.5] Order(s):amLODIPine (NORVASC) 10 mg tabletTake 0.5 tablets by mouth once daily.Disp: Rfl: LIPID PANEL BASIC [SQLIPB] Order #: [id number] FUTURE Prescriptions as of 06/20/2017 Sig: AMLODIPINE 10 MG TABLET Take 0.5 tablets by mouth onc* CYANOCOBALAMIN (VIT B-12) 1,0* Take 1 tablet by mouth once d* ATENOLOL 25 MG TABLET Take 1 tablet by mouth once d* LEVALBUTEROL HFA 45 MCG/ACTUA* Inhale 1-2 Puffs as instructe* EPINEPHRINE 0.3 MG/0.3 ML INJ* Inject 0.3 mL intramuscularly* PREGABALIN 150 MG CAPSULE Take 1 capsule by mouth twice* PREDNISONE 10 MG TABLET Take 2.5 tablets by mouth onc* Patient taking differently: Take 25 mg by mouth once mary ellen* ERGOCALCIFEROL (VITAMIN D2) 5* Take 1 capsule by mouth once * Patient taking differently: Take 50,000 Units by mouth on* TURMERIC ROOT EXTRACT ORAL Take 1 tablet by mouth twice * NITROGLYCERIN 0.4 MG SUBLINGU* DISSOLVE 1 TABLET UNDER THE T* BUDESONIDE 0.5 MG/2 ML SUSPEN* Use 1 Ampule via nebulizer tw* CRISABOROLE 2 % TOPICAL OINTM* Apply to the hands twice daily COMPOUNDED PRESCRIPTION Please provide patient with n* FLUTICASONE 100 MCG-VILANTERO* Inhale 1 Inhalation as instru* CETIRIZINE 10 MG TABLET Take 10 mg by mouth once mary ellen* PIMECROLIMUS 1 % TOPICAL CREAM Apply twice daily to the hands SPIRONOLACTONE 50 MG TABLET Take 1 tablet by mouth twice * ONDANSETRON HCL 4 MG TABLET Take 1 tablet by mouth every * CHOLESTYRAMINE (BULK) POWDER Take 1 scoop by mouth once da* BUMETANIDE 0.5 MG TABLET Take 1 tablet by mouth once d* LANSOPRAZOLE 30 MG CAPSULE,DE* Take 1 capsule by mouth twice* AZELASTINE 0.15 % (205.5 MCG)* Use 1 Wilberforce in each nostril t* LEVALBUTEROL 1.25 MG/3 ML BRENDA* Use 1 Ampule via nebulizer ev* FLUTICASONE 50 MCG/ACTUATION * 1-2 sprays each side qd BENZONATATE 200 MG CAPSULE Take 200 mg by mouth three ti* LACTOBACILLUS RHAMNOSUS GG 10* Take 1 capsule by mouth twice* FAMOTIDINE 20 MG TABLET Take 1 tablet by mouth twice * Patient taking differently: Take 20 mg by mouth twice liam* DIPHENHYDRAMINE 50 MG CAPSULE Take 1 capsule by mouth every* AMOXICILLIN 250 MG CAPSULE Take 250 mg by mouth once liam* ZAFIRLUKAST 20 MG TABLET Take 1 tablet by mouth twice * DOXAZOSIN 2 MG TABLET Take 2 mg by mouth once daily. CYCLOSPORINE MODIFIED 50 MG C* Take 50 mg by mouth twice liam* ASCORBIC ACID (VITAMIN C) 500* Take 1 tablet by mouth once d* Problem List As Of Date 06/20/2017 Noted Resolved JOINT PAIN-ANKLE [M25.579] INVALID FOR*03/20/2014 Edema [R60.9] INVALID FOR*03/28/2016 Priority: I Adrenal nodule (HCC) [E27.9] INVALID FOR* More... Diarrhea [R19.7] INVALID FOR*10/15/2013 Excessive or frequent menstruation [N92.0] INVALID FOR*07/14/2011 Shortness of breath [R06.02] INVALID FOR*10/15/2013 Palpitations [R00.2] INVALID FOR*03/20/2014 Tachycardia, unspecified [R00.0] INVALID FOR*10/15/2013 More... Open wound site NOS [T14.8XXA] INVALID FOR*07/16/2011 Abdominal pain, right upper quadrant [R10.11] INVALID FOR*07/14/2011 More... Acute gastritis without mention of hemorrhage [*INVALID FOR*10/15/2013 Hematuria [599.7] INVALID FOR*07/14/2011 URGE INCONTINENCE [N39.41] INVALID FOR* FEMALE STRESS INCONTINENCE [N39.3] INVALID FOR* Scar, hypertrophic [L91.0] INVALID FOR*10/15/2013 Ovarian cyst [N83.209] INVALID FOR*07/06/2010 Cyst INVALID FOR*10/15/2013 Other specified pre-operative examination [Z01.*INVALID FOR*07/16/2011 Hirsutism [L68.0] INVALID FOR* Dysphagia [R13.10] INVALID FOR*03/20/2014 GERD (gastroesophageal reflux disease) [K21.9] INVALID FOR* Priority: D More... 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 Obesity (BMI 30.0-34.9) [E66.9] INVALID FOR* More... More... More... More... Idiopathic anaphylaxis [T78.2XXA] INVALID FOR* Priority: A More... Urticaria, idiopathic [L50.1] INVALID FOR*03/28/2016 More... Hyperlipidemia [E78.5] INVALID FOR* Impaired fasting glucose [R73.01] INVALID FOR* Recurrent chest pain [R07.9, G89.29] INVALID FOR*12/09/2014 Multinodular goiter [E04.2] INVALID FOR* More... CKD (chronic kidney disease) stage 3, GFR 30-59*INVALID FOR* Pain in joint, ankle and foot [M25.579] INVALID FOR*12/09/2014 More... More... Steroid-induced hyperglycemia [R73.9, T38.0X5A] INVALID FOR*03/28/2016 Priority: C Moderate persistent asthma without complication*INVALID FOR* Ulcerative colitis without complications (HCC) *INVALID FOR* Anaphylaxis [T78.2XXA] INVALID FOR*03/26/2015 More... Neck pain, bilateral [M54.2] INVALID FOR*03/28/2016 Essential hypertension with goal blood pressure*INVALID FOR*03/28/2016 Chronic nausea [R11.0] INVALID FOR* Lumbar radiculitis [M54.16] INVALID FOR*03/28/2016 Lumbar stenosis [M48.061] INVALID FOR*03/28/2016 Acquired spondylolisthesis [M43.10] INVALID FOR*03/28/2016 Cervical radiculitis [M54.12] INVALID FOR*03/28/2016 Cervical spondylosis with radiculopathy [M47.22]INVALID FOR*03/29/2017 Shoulder impingement [M75.40] INVALID FOR*03/28/2016 Anaphylaxis [T78.2XXA] INVALID FOR*03/28/2016 Tendonitis, tibialis [M76.829] INVALID FOR*05/09/2016 Lumbar stenosis [M48.061] INVALID FOR* Cervical radiculitis [M54.12] INVALID FOR*03/29/2017 Cervical herniated disc [M50.20] INVALID FOR*03/29/2017 Cervical stenosis of spine [M48.02] INVALID FOR* Cervical spondylosis with myelopathy [M47.12] INVALID FOR*03/29/2017 Cervical myelopathy (HCC) [G95.9] INVALID FOR*03/29/2017 Claustrophobia [F40.240] INVALID FOR* Ptosis of eyelid, bilateral [H02.403] INVALID FOR*03/29/2017 More... Lumbar spondylosis [M47.816] INVALID FOR* More... Preop testing [Z01.818] INVALID FOR* More... Anaphylaxis [T78.2XXA] INVALID FOR* Essential hypertension [I10] INVALID FOR* Prescriptions ordered this encounter Disp Refills Start End AMLODIPINE 10 MG TABLET 06/20/2017 Class: Med Update Route: ORAL Sig: Take 0.5 tablets by mouth once daily. Medications Discontinued During This Encounter amLODIPine (NORVASC) 10 mg tablet 06/20/2017 Class: Historical Med Route: ORAL Sig: Take 10 mg by mouth once daily. Disc: Reason for discontinue is not on file. Encounter Status:Closed by ISAIAH HARRIS MD on 06/21/17 CBC W/DIFF, AUTOMATED Collected: 06/15/2017 Status: F Source: BERNA 2:05 PM [facility] REPOSITORY TYPE CODE TESTS RESULT OUT OF RANGE REFERENCE UNITS LAB L100.1000 4.4-11.0 K/mm3 Normal WBC 8.6 LAB L100.1200 4.2-5.4 M/mm3 Normal RBC 4.76 LAB L100.1300 12.0-15.0 g/dl Normal HGB 13.9 LAB L100.1400 37-47 % Normal HCT 42.8 LAB L100.1500 81-99 fL Normal MCV 89.9 LAB L100.1600 27.0-32.0 pg Normal MCH 29.2 LAB L100.1700 32-36 g/gl Normal MCHC 32.5 LAB L100.1810 11.6-14.6 % Normal RDW CV 14.1 LAB L100.1820 35.1-43.9 fl High RDW SD 46.3 LAB L100.1900 150-450 K/mm3 Normal PLT 234 LAB L100.2000 6.2-12.0 fl Normal MPV 11.4 LAB L100.2100 47-70 % High NEUT% 70.7 LAB L100.2200 19-41 % Low LY% 17.1 LAB L100.2300 0-10 % High MONO% 10.2 LAB L100.2400 0-5 % Normal EO% 1.2 LAB L100.2500 0-1 % Normal BASO% 0.6 LAB L100.2550 0.0-0.9 % Normal IM GRAN % 0.200 Result Comment: IG% - Immature Granulocytes (promyelocytes, myelocytes and metamyelocytes) > 1% indicates that a LEFT SHIFT is Present. LAB L100.2620 2.0-7.7 X10 3/uL Normal Absolute Neut 6.1 LAB L100.2720 0.83-4.51 X10 3/ul Normal Absolute Lymph 1.47 Performed By: #### L100.0100 #### [facility] [address] [place], [address] URINALYSIS, ROUTINE Collected: 06/15/2017 Status: F Source: BERNA (DIPSTICK) 2:05 PM [facility] REPOSITORY Order Comment: How was Urine Obtained? CLEAN CATCH TYPE CODE TESTS RESULT OUT OF RANGE REFERENCE UNITS LAB L400.3000 Yellow COLOR Normal Yellow LAB L400.3050 Clear Normal CLARITY Clear LAB L400.3200 Normal mg/dl Normal GLUCOSE, UR Normal LAB L400.3300 Negative mg/dL Normal BILIRUBIN URINE Negative LAB L400.3400 Negative mg/dl Normal KETONE UR Negative LAB L400.3465 1.002-1.030 Normal SP.GR. DIPSTX 1.010 LAB L400.3550 5.0 - 8.0 pH UR Normal 6.0 LAB L400.3600 Negative mg/dl PROT Normal DIPSTX Negative LAB L400.3700 Normal mg/dl Normal UROBILI Normal LAB L400.3750 Negative Normal NITRITE UR Negative LAB L400.3780 Negative /ul Normal OCCULT BLOOD-UR Negative LAB L400.3800 Negative /ul High LEUK ESTERASE 100 Performed By: #### L400.2010 #### [facility] [address] [place], [address] BUN Collected: 06/15/2017 Status: F Source: HARRISON 2:05 PM [facility] REPOSITORY TYPE CODE TESTS RESULT OUT OF RANGE REFERENCE UNITS LAB L501.1000 7-18 mg/dL High BUN 30 Performed By: #### L501.1000, L501.1105, L501.1800, L501.4100, L501.4405 #### [facility] [address] [place], [address] SERUM CREATININE AND Collected: 06/15/2017 Status: F Source: H[place]ISON GFR 2:05 PM [facility] REPOSITORY TYPE CODE TESTS RESULT OUT OF RANGE REFERENCE UNITS LAB L501.1100 0.55-1.02 mg/dL High 1.33 CREAT,SERUM Result Comment: The validity of the calculated GFR AND GFRAA in patients over 70 years has not been determined. Clinical correlation is essential. LAB L501.1110 >60 mL/min Low EST GFR 43 Result Comment: Non- GFR Calc LAB L501.1115 >60 mL/min Low EST GFR - AA 52 Result Comment: GFR Calc Performed By: #### L501.1000, L501.1105, L501.1800, L501.4100, L501.4405 #### [facility] [address] [place], [address] ALBUMIN, SERUM Collected: 06/15/2017 Status: F Source: H[place]ISON 2:05 PM [facility] REPOSITORY TYPE CODE TESTS RESULT OUT OF RANGE REFERENCE UNITS LAB L501.1800 3.2-5.0 g/dL Normal ALB 3.9 Performed By: #### L501.1000, L501.1105, L501.1800, L501.4100, L501.4405 #### [facility] [address] [place], [address] AST(SGOT) Collected: 06/15/2017 Status: F Source: BERNA 2:05 PM [facility] REPOSITORY TYPE CODE TESTS RESULT OUT OF RANGE REFERENCE UNITS LAB L501.4100 15-37 U/L Normal AST 16 Performed By: #### L501.1000, L501.1105, L501.1800, L501.4100, L501.4405 #### [facility] [address] [place], [address] ALANINE AMINOTRANSFERAS Collected: 06/15/2017 Status: F Source: BERNA (SGPT) 2:05 PM [facility] REPOSITORY TYPE CODE TESTS RESULT OUT OF RANGE REFERENCE UNITS LAB L501.4405 13-56 U/L Normal ALT 39 Result Comment: Please note revised ALT reference range effective 2017. Performed By: #### L501.1000, L501.1105, L501.1800, L501.4100, L501.4405 #### [facility] [address] [place], [address] CYCLOSPORINE, BLOOD Collected: 06/15/2017 Status: F Source: HARRISON 2:05 PM [facility] REPOSITORY TYPE CODE TESTS RESULT OUT OF REFERENCE UNITS RANGE LAB L3400.3100 Cyclosporine Normal Result Comment: NONE DETECTED ng/mL 100 - 400 Therapeutic: Renal Transplant 100 - 250 Liver Transplant 100 - 400 Cardiac Transplant 100 - 400 Bone Marrow 200 - 300 Detection Limit = 25 Assay performed by Liquid Chromatography Tandem Mass Spectrometry (LC-MS/MS) If preferred testing methodology for Cyclosporine is Liquid Chromatography Tandem Mass Spectrometry (LC-MS/MS) please use test code [id number]. For testing performed by Immunoassay, please use test code [id number]. Performed at: [address] [id number] [employer] Director: Mik Alonso MD, Phone: [phone] Performed By: #### L3400.3090 #### [facility] (refer to report for specific site) refer to report for address and phone number URINALYSIS, ROUTINE Collected: 06/05/2017 Status: F Source: HARRISON (DIPSTICK) 2:20 PM [facility] REPOSITORY Order Comment: How was Urine Obtained? CLEAN CATCH TYPE CODE TESTS RESULT OUT OF RANGE REFERENCE UNITS LAB L400.3000 Yellow COLOR Normal Straw LAB L400.3050 Clear Normal CLARITY Clear LAB L400.3200 Normal mg/dl Normal GLUCOSE, UR Normal LAB L400.3300 Negative mg/dL Normal BILIRUBIN URINE Negative LAB L400.3400 Negative mg/dl Normal KETONE UR Negative LAB L400.3465 1.002-1.030 Normal SP.GR. DIPSTX 1.010 LAB L400.3550 5.0 - 8.0 pH UR Normal 6.5 LAB L400.3600 Negative mg/dl PROT Normal DIPSTX Negative LAB L400.3700 Normal mg/dl Normal UROBILI Normal LAB L400.3750 Negative Normal NITRITE UR Negative LAB L400.3780 Negative /ul Normal OCCULT BLOOD-UR Negative LAB L400.3800 Negative /ul High LEUK ESTERASE 100 Performed By: #### L400.2010 #### [facility] [address] [place], [address] CBC W/DIFF, AUTOMATED Collected: 06/05/2017 Status: F Source: H[place]ISON 2:20 PM [facility] REPOSITORY TYPE CODE TESTS RESULT OUT OF RANGE REFERENCE UNITS LAB L100.1000 4.4-11.0 K/mm3 Normal WBC 6.5 LAB L100.1200 4.2-5.4 M/mm3 Normal RBC 4.80 LAB L100.1300 12.0-15.0 g/dl Normal HGB 14.2 LAB L100.1400 37-47 % Normal HCT 43.0 LAB L100.1500 81-99 fL Normal MCV 89.6 LAB L100.1600 27.0-32.0 pg Normal MCH 29.6 LAB L100.1700 32-36 g/gl Normal MCHC 33.0 LAB L100.1810 11.6-14.6 % Normal RDW CV 14.5 LAB L100.1820 35.1-43.9 fl High RDW SD 47.3 LAB L100.1900 150-450 K/mm3 Normal PLT 218 LAB L100.2000 6.2-12.0 fl Normal MPV 11.6 LAB L100.2100 47-70 % Normal NEUT% 64.4 LAB L100.2200 19-41 % Normal LY% 20.2 LAB L100.2300 0-10 % High MONO% 10.9 LAB L100.2400 0-5 % Normal EO% 2.6 LAB L100.2500 0-1 % High BASO% 1.4 LAB L100.2550 0.0-0.9 % Normal IM GRAN % 0.500 Result Comment: IG% - Immature Granulocytes (promyelocytes, myelocytes and metamyelocytes) > 1% indicates that a LEFT SHIFT is Present. LAB L100.2620 2.0-7.7 X10 3/uL Normal Absolute Neut 4.2 LAB L100.2720 0.83-4.51 X10 3/ul Normal Absolute Lymph 1.32 Performed By: #### L100.0100 #### [facility] [address] [facility] [place], [place], [address] BUN Collected: 06/05/2017 Status: F Source: HARRISON 2:20 PM [facility] REPOSITORY TYPE CODE TESTS RESULT OUT OF RANGE REFERENCE UNITS LAB L501.1000 7-18 mg/dL High BUN 26 Performed By: #### L501.1000, L501.1105, L501.1800, L501.4100, L501.4405 #### [facility] [address] [place], [address] SERUM CREATININE AND Collected: 06/05/2017 Status: F Source: [place] GFR 2:20 PM [facility] REPOSITORY TYPE CODE TESTS RESULT OUT OF RANGE REFERENCE UNITS LAB L501.1100 0.55-1.02 mg/dL High 1.07 CREAT,SERUM Result Comment: The validity of the calculated GFR AND GFRAA in patients over 70 years has not been determined. Clinical correlation is essential. LAB L501.1110 >60 mL/min Low EST GFR 55 Result Comment: Non- GFR Calc LAB L501.1115 >60 mL/min Normal EST GFR - AA 67 Result Comment: GFR Calc Performed By: #### L501.1000, L501.1105, L501.1800, L501.4100, L501.4405 #### [facility] [address] [place], [address] ALBUMIN, SERUM Collected: 06/05/2017 Status: F Source: H[place]ISON 2:20 PM [facility] REPOSITORY TYPE CODE TESTS RESULT OUT OF RANGE REFERENCE UNITS LAB L501.1800 3.2-5.0 g/dL Normal ALB 3.9 Performed By: #### L501.1000, L501.1105, L501.1800, L501.4100, L501.4405 #### [facility] [address] [place], [address] AST(SGOT) Collected: 06/05/2017 Status: F Source: H[place]ISON 2:20 PM [facility] REPOSITORY TYPE CODE TESTS RESULT OUT OF RANGE REFERENCE UNITS LAB L501.4100 15-37 U/L Normal AST 24 Performed By: #### L501.1000, L501.1105, L501.1800, L501.4100, L501.4405 #### [facility] [address] [place], [address] ALANINE AMINOTRANSFERAS Collected: 06/05/2017 Status: F Source: HARRISON (SGPT) 2:20 PM [facility] REPOSITORY TYPE CODE TESTS RESULT OUT OF RANGE REFERENCE UNITS LAB L501.4405 13-56 U/L Normal ALT 36 Result Comment: Please note revised ALT reference range effective 2017. Performed By: #### L501.1000, L501.1105, L501.1800, L501.4100, L501.4405 #### [facility] [address] [place], [address] CYCLOSPORINE, BLOOD Collected: 06/05/2017 Status: F Source: [place] 2:20 PM [facility] REPOSITORY TYPE CODE TESTS RESULT OUT OF REFERENCE UNITS RANGE LAB L3400.3100 Cyclosporine Normal Result Comment: None Detected Therapeutic: Renal Transplant 100 - 250 Liver Transplant 100 - 400 Cardiac Transplant 100 - 400 Bone Marrow 200 - 300 Detection Limit = 25 Assay performed by Liquid Chromatography Tandem Mass Spectrometry (LC-MS/MS) If preferred testing methodology for Cyclosporine is Liquid Chromatography Tandem Mass Spectrometry (LC-MS/MS) please use test code 986992. For testing performed by Immunoassay, please use test code [id number]. Performed at: [facility] [address] [id number] High [employer] Music Director: Mik Alonso MD, Phone: [phone] Performed By: #### L3400.3090 #### [facility] (refer to report for specific site) refer to report for address and phone number PROGRESS Observed: 06/02/2017 Status: COMPLETED Source: [place] 10:32 AM [facility] RE[facility] HNO ID: [id number] Author: Jane Meza Service: (none) Author Type: Physician Type: Progress Notes Filed: 06/02/2017 11:14 AM Note Text: Initial Podiatric Office Visit: Chief Complaint: This 62 year old who presents with: lateral ankle pain HPI This 62 year old patient presents with lateral ankle pain L for the past 6 months. Patient states that pain is worst with activity. Patient has tried custom orthotics to alleviate the problem with limited success. Pain level is currently 6/10. +hx of back and knee pain-likely would not tolerate a CAM walker boot. On very high dose prednisone for allergies. Orthotics are very old now. Hx of kouts and achilles repair in the past by Dr. Sewell. PCP: Anisa Caldwell MD PAST MEDICAL HISTORY Diagnosis Date - Abdominal pain, other specified site - ACNE NEC 01/21/2008 - Actinic Keratosis (Premalignant AK) 06/05/2011 - ACUTE GASTRITIS W/O HEMORRHAGE 04/26/2007 - Allergic rhinitis 04/23/2012 - Anaphylactic reaction ideopathic - Benign tumor of adrenal gland - Biliary dyskinesia 10/29/2009 - Cervical herniated disc 10/20/2016 - Cervical myelopathy (HCC) 10/25/2016 - Cervical radiculitis 10/20/2016 - Cervical spondylosis with radiculopathy 11/17/2015 - JAIN ANGIOMA///NEVUS, NON-NEOPLASTIC 05/28/2007 - CKD (chronic kidney disease) stage 3, GFR 30-59 ml/min 04/29/2013 - Diaphragmatic hernia without mention of obstruction or gangrene 05/25/2011 - Diverticulosis of colon (without mention of hemorrhage) - Edema 07/07/2004 - Epigastric pain - GERD (gastroesophageal reflux disease) - HTN (hypertension) 2002 controlled on Diovan - Hyperlipidemia 10/15/2013 - IRON DEFIC ANEMIA NOS 04/26/2007 - Moderate persistent asthma without complication 02/18/2015 - Ovarian cyst Benign ovarian cyst, S/P laparoscopic LSO - Ptosis of eyelid, bilateral 12/23/2016 Added automatically from request for surgery [id number] - Shoulder impingement 11/17/2015 - Sleep apnea intollerant to CPAP because allergic to material on mask - Steroid-induced hyperglycemia 09/06/2014 - TACHYCARDIA NOS 01/09/2006 - Tarsal tunnel syndrome 12/23/2009 - Tear of lateral meniscus of knee 02/21/2014 - Ulcerative colitis, unspecified - UTERINE LEIOMYOMA NOS 12/23/2005 - VIRAL WARTS NOS 05/09/2006 - Vocal cord dysfunction Current Outpatient Prescriptions: cyanocobalamin (VITAMIN B-12) 1,000 mcg tab Take 1 tablet by mouth once daily. atenolol (TENORMIN) 25 mg tablet Take 1 tablet by mouth once daily. levalbuterol tartrate HFA (XOPENEX HFA) 45 mcg/actuation inhaler Inhale 1-2 Puffs as instructed every 6 hours as needed for Wheezing/Shortness of Breath. EPINEPHrine (EPIPEN) 0.3 mg/0.3 mL auto-injector Inject 0.3 mL intramuscularly as needed. pregabalin (LYRICA) 150 mg capsule Take 1 capsule by mouth twice daily for 181 days. predniSONE (DELTASONE) 10 mg tablet Take 2.5 tablets by mouth once daily. (Patient taking differently: Take 25 mg by mouth once daily. Total 25 mg daily ) ergocalciferol, vitamin D2, (VITAMIN D) 50,000 unit capsule Take 1 capsule by mouth once each week. (Patient taking differently: Take 50,000 Units by mouth once each week. Every Monday ) amLODIPine (NORVASC) 10 mg tablet Take 10 mg by mouth once daily. TURMERIC ROOT EXTRACT ORAL Take 1 tablet by mouth twice daily. nitroglycerin sublingual (NITROQUICK) 0.4 mg SL tablet DISSOLVE 1 TABLET UNDER THE TONGUE NEEDED FOR CHEST PAIN IF NO RELIEF CALL 911 budesonide (PULMICORT) 0.5 mg/2 mL nebulizer solution Use 1 Ampule via nebulizer twice daily. crisaborole (EUCRISA) 2 % oint Apply to the hands twice daily COMPOUNDED PRESCRIPTION Please provide patient with nebulizer machine and supplies.Diagnosis: Severe Asthma. fluticasone-vilanterol (BREO ELLIPTA) 100-25 mcg/dose inhaler Inhale 1 Inhalation as instructed once daily. cetirizine (ZYRTEC) 10 mg tablet Take 10 mg by mouth once daily. pimecrolimus (ELIDEL) 1 % cream Apply twice daily to the hands spironolactone (ALDACTONE) 50 mg tablet Take 1 tablet by mouth twice daily. ondansetron (ZOFRAN) 4 mg tablet Take 1 tablet by mouth every 8 hours as needed. Cholestyramine, Bulk, powd Take 1 scoop by mouth once daily. bumetanide (BUMEX) 0.5 mg tablet Take 1 tablet by mouth once daily. lansoprazole (PREVACID) 30 mg capsule Take 1 capsule by mouth twice daily. Azelastine 0.15 % (205.5 mcg) spry Use 1 Wilberforce in each nostril twice daily. levalbuterol (XOPENEX) 1.25 mg/3 mL nebulizer solution Use 1 Ampule via nebulizer every 4 hours as needed. Inhale over 5-15 minutes fluticasone (FLONASE) 50 mcg/actuation nasal spray 1-2 sprays each side qd Benzonatate 200 mg capsule Take 200 mg by mouth three times daily as needed for Cough. lactobacillus rhamnosus (CULTURELLE) 10 billion cell capsule Take 1 capsule by mouth twice daily. famotidine (PEPCID) 20 mg tablet Take 1 tablet by mouth twice daily. (Patient taking differently: Take 20 mg by mouth twice daily. as needed ) diphenhydrAMINE (BENADRYL) 50 mg capsule Take 1 capsule by mouth every 6 hours as needed for Itching/Rash. amoxicillin (POLYMOX, AMOXIL) 250 mg capsule Take 250 mg by mouth once daily. zafirlukast (ACCOLATE) 20 mg tablet Take 1 tablet by mouth twice daily. doxazosin (CARDURA) 2 mg tablet Take 2 mg by mouth once daily. cycloSPORINE Modified 50 mg capsule Take 50 mg by mouth twice daily. ascorbic acid (VITAMIN C) 500 mg tablet Take 1 tablet by mouth once daily. No current facility-administered medications for this visit. ALLERGIES Allergen Reactions - Avocado Anaphylaxis - Banana Anaphylaxis - Carbinoxamine Anaphylaxis - Yoselin Seed Anaphylaxis - Ciprofloxacin Anaphylaxis - Codeine Anaphylaxis - Contrast Dye Anaphylaxis To MRI and CT - Fish Anaphylaxis - Hycodan [Hydrocodon* Anaphylaxis Face and throat swelling - Latex Anaphylaxis - Imtiaz-Synephrine [Phe* Anaphylaxis 10% eye drop - Nickel Rash, Hives, Anaphylaxis - Nsaids (Non-Steroid* Other: See Comments Kidney function drops; reversible kidney damage. - Oxycodone Anaphylaxis - Periactin [Cyprohep* Anaphylaxis - Pneumococcal Vaccine Anaphylaxis - Shellfish Anaphylaxis - Zantac [Ranitidine] Anaphylaxis - Ativan [Lorazepam] Other: See Comments hallucination - Beef Containing Pro* Rash - Berino Other: See Comments Feels like an asthma attack. - Eggs [Egg] Rash, Vomiting - Ekg Leads [Adhesive] Rash Localized,only under the leads - Influenza Virus Vac* Shortness of Breath - Lisinopril Cough - Milk Rash, Vomiting - Mometasone Anaphylaxis Per Dr. Salas she tolerates formoterol (on Breo at home) but is allergic to mometasone. Okayed by him to update. - Xolair [Omalizumab] Shortness of Breath - Environmental [Othe* Other: See Comments Nasal congestion, brings on an asthma attack. - Surgical Tape [Othe* Rash, Swelling Oral rash, swelling of eyes, asthma attacks; per pateint report. PAST SURGICAL HISTORY Procedure Laterality Date - CHOLECYSTECTOMY HX - COLONOSCOP W/ OR W/O [facility] SPEC 09/06/2005 Colonoscopy - COLONOSCOP W/ OR W/O [facility] SPEC Colonoscopy - COLONOSCOP W/ OR W/O [facility] SPEC 05/28/2012 Colonoscopy repeat 5 years. - EGD 07/29/14 normal - EGD W/O OR W/BRUSH/WASH 09/06/2005 EGD - EGD W/O OR W/BRUSH/WASH 04/26/2007 EGD - EGD W/O OR W/BRUSH/WASH 05/25/2011 EGD - EGD W/O OR W/BRUSH/WASH 05/28/2012 EGD - L'SCOPE REM ADNEX W/PART/TOT OOPH/SALP 06/11/2009 Laparoscopic LSO for benign ovarian cyst - LAMINECTOMY,CERVICAL 10/2016 - LAP CHOLECYSTECT/CHOLANGIOGRAPHY 10/30/09 Normal IOC - ORTHOPEDICS SURGERY HX 12/2013 repaired Rt achilles tendon - PAST SURGICAL HISTORY OF 09/19 left foot surgery on heel and repaired torn tdndon - SIGMOIDOSCOPY FLEX DIAG 05/20/08 - TARSAL TUNNEL RELEASE 07/2010 Left foot FAMILY HISTORY Problem Relation Age of Onset - Colon Cancer Father dx age 60. Alive at 85. - Hypertension Father Alive at 85. - Cataract Father Alive at 85. - Thyroid Father Alive at 85. - Heart Father [place] at 87 - Diabetes Mother colon polyps. age 72. - Hypertension Mother age 72. - benign brainstem tumor [OTHER] Mother Persistent vegetative state. age 72. - defects Sister infant - Glaucoma Maternal Grandmother - Stroke Maternal Grandfather - Cancer Paternal Grandmother cervical - Colon Cancer Son 38 colon and rectal cancer - Breast Cancer Sister Developed in late 20s. Alive at 52. 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 SKIN: Negative for lesions, rash, and itching. HEMATOLOGY/LYMPHOLOGY Negative for prolonged bleeding, bruising easily, and swollen nodes. ENDOCRINE: Negative for cold or heat intolerance, polyuria, polydipsia and goiter. NEURO: negative The remainder of the review of systems is noncontributory. Physical Exam: OBJECTIVE: Vascular: Dorsalis pedis and posterior tibial pulses palpable b/l Capillary Fill time < 3 seconds to digits 1-5 b/l Skin temperature warm to warm proximal to distal b/l Hair growth present to digits Neurological: Intact light touch/epicritic sensation Vibratory sensation intact to MTPJ b/l NO significant neurological deficits Dermatological: Nails 1-5 b/l appear normal. Webspaces clean and dry 1-4 b/l. Skin appears well hydrated and supple. good color, texture, turgor. No open lesions present. No callosities present. Musculoskeletal/Orthopaedic: Patient has pain and swelling to palpation of peroneal tendon L foot. Pain noted with eversion and inversion against resistance. Foot type is supinated structurally within normal limits AJ ROM is decreased with knee extended and flexed +5/5 muscle strength dorsiflexion, plantarflexion, inversion, eversion b/l Radiographs:06/02/2017: hx of kouts. 2 large headless screws in place with no sign of lucency or displacement. ASSESSMENT: Peroneal tendonitis L foot Ankle swelling L PLAN: 1. History and physical examination performed 2. Reviewed causes of peroneal tendonitis with patient 3. No antiinflammatory-already on prednisone 25 mg day 4. Rest, Ice, Elevation 5. Tubigrip dispensed today. 6. ASO L ankle today 7. New RX for custom orthotics Patient was educated on mechanical and chemical Deep Venous Thrombosis/Pulmonary Embolism prophylaxis. Patient again advised of signs and symptoms of DVT, PE. Advised to go directly to ED should these symptoms occur. Patient acknowledges understanding of above information. Jane Meza DPM CBC W/DIFF, AUTOMATED Collected: 06/01/2017 Status: F Source: [place] 8:16 AM [facility] REPOSITORY TYPE CODE TESTS RESULT OUT OF RANGE REFERENCE UNITS LAB L100.1000 4.4-11.0 K/mm3 Normal WBC 5.1 LAB L100.1200 4.2-5.4 M/mm3 Normal RBC 4.73 LAB L100.1300 12.0-15.0 g/dl Normal HGB 14.1 LAB L100.1400 37-47 % Normal HCT 42.6 LAB L100.1500 81-99 fL Normal MCV 90.1 LAB L100.1600 27.0-32.0 pg Normal MCH 29.8 LAB L100.1700 32-36 g/gl Normal MCHC 33.1 LAB L100.1810 11.6-14.6 % Normal RDW CV 14.4 LAB L100.1820 35.1-43.9 fl High RDW SD 46.7 LAB L100.1900 150-450 K/mm3 Normal PLT 222 LAB L100.2000 6.2-12.0 fl Normal MPV 11.2 LAB L100.2100 47-70 % Normal NEUT% 64.5 LAB L100.2200 19-41 % Normal LY% 20.8 LAB L100.2300 0-10 % Normal MONO% 9.0 LAB L100.2400 0-5 % Normal EO% 3.7 LAB L100.2500 0-1 % High BASO% 1.6 LAB L100.2550 0.0-0.9 % Normal IM GRAN % 0.400 Result Comment: IG% - Immature Granulocytes (promyelocytes, myelocytes and metamyelocytes) > 1% indicates that a LEFT SHIFT is Present. LAB L100.2620 2.0-7.7 X10 3/uL Normal Absolute Neut 3.3 LAB L100.2720 0.83-4.51 X10 3/ul Normal Absolute Lymph 1.06 Performed By: #### L100.0100 #### [facility] [address] [place], [address] URINALYSIS, ROUTINE Collected: 06/01/2017 Status: F Source: [place] (DIPSTICK) 8:16 AM [facility] REPOSITORY Order Comment: How was Urine Obtained? CLEAN CATCH TYPE CODE TESTS RESULT OUT OF RANGE REFERENCE UNITS LAB L400.3000 Yellow COLOR Normal Yellow LAB L400.3050 Clear Normal CLARITY Cloudy LAB L400.3200 Normal mg/dl Normal GLUCOSE, UR Normal LAB L400.3300 Negative mg/dL Normal BILIRUBIN URINE Negative LAB L400.3400 Negative mg/dl Normal KETONE UR Negative LAB L400.3465 1.002-1.030 Normal SP.GR. DIPSTX 1.020 LAB L400.3550 5.0 - 8.0 pH UR Normal 6.0 LAB L400.3600 Negative mg/dl High PROT 30 DIPSTX LAB L400.3700 Normal mg/dl Normal UROBILI Normal LAB L400.3750 Negative Normal NITRITE UR Negative LAB L400.3780 Negative /ul Normal OCCULT BLOOD-UR Negative LAB L400.3800 Negative /ul High LEUK ESTERASE 100 Performed By: #### L400.2010 #### [facility] [address] [place], [address] BUN Collected: 06/01/2017 Status: F Source: [place] 8:16 AM [facility] REPOSITORY TYPE CODE TESTS RESULT OUT OF RANGE REFERENCE UNITS LAB L501.1000 7-18 mg/dL High BUN 22 Performed By: #### L501.1000, L501.1105, L501.1800, L501.4100, L501.4405 #### [facility] [address] [place], [address] SERUM CREATININE AND Collected: 06/01/2017 Status: F Source: [place] GFR 8:16 AM [facility] REPOSITORY TYPE CODE TESTS RESULT OUT OF RANGE REFERENCE UNITS LAB L501.1100 0.55-1.02 mg/dL High 1.17 CREAT,SERUM Result Comment: The validity of the calculated GFR AND GFRAA in patients over 70 years has not been determined. Clinical correlation is essential. LAB L501.1110 >60 mL/min Low EST GFR 50 Result Comment: Non- GFR Calc LAB L501.1115 >60 mL/min Normal EST GFR - AA 60 Result Comment: GFR Calc Performed By: #### L501.1000, L501.1105, L501.1800, L501.4100, L501.4405 #### [facility] [address] [place], [address] ALBUMIN, SERUM Collected: 06/01/2017 Status: F Source: [place] 8:16 AM [facility] REPOSITORY TYPE CODE TESTS RESULT OUT OF RANGE REFERENCE UNITS LAB L501.1800 3.2-5.0 g/dL Normal ALB 3.7 Performed By: #### L501.1000, L501.1105, L501.1800, L501.4100, L501.4405 #### [facility] [address] [place], [address] AST(SGOT) Collected: 06/01/2017 Status: F Source: [place] 8:16 AM [facility] REPOSITORY TYPE CODE TESTS RESULT OUT OF RANGE REFERENCE UNITS LAB L501.4100 15-37 U/L Normal AST 18 Performed By: #### L501.1000, L501.1105, L501.1800, L501.4100, L501.4405 #### [facility] [address] [place], [address] ALANINE AMINOTRANSFERAS Collected: 06/01/2017 Status: F Source: [place] (SGPT) 8:16 AM [facility] REPOSITORY TYPE CODE TESTS RESULT OUT OF RANGE REFERENCE UNITS LAB L501.4405 13-56 U/L Normal ALT 36 Result Comment: Please note revised ALT reference range effective 2017. Performed By: #### L501.1000, L501.1105, L501.1800, L501.4100, L501.4405 #### [facility] [address] [place], [address] CYCLOSPORINE, BLOOD Collected: 06/01/2017 Status: F Source: [place] 8:16 AM [facility] REPOSITORY TYPE CODE TESTS RESULT OUT OF REFERENCE UNITS RANGE LAB L3400.3100 Cyclosporine Normal Result Comment: None Detected Therapeutic: Renal Transplant 100 - 250 Liver Transplant 100 - 400 Cardiac Transplant 100 - 400 Bone Marrow 200 - 300 Detection Limit = 25 Assay performed by Liquid Chromatography Tandem Mass Spectrometry (LC-MS/MS) If preferred testing methodology for Cyclosporine is Liquid Chromatography Tandem Mass Spectrometry (LC-MS/MS) please use test code [id number]. For testing performed by Immunoassay, please use test code [id number]. Performed at: [address] [id number] [employer] Music Director: Mik Alonso MD, Phone: [phone] Performed By: #### L3400.3090 #### [facility] (refer to report for specific site) refer to report for address and phone number URINALYSIS, ROUTINE Collected: 05/26/2017 Status: F Source: [place] (DIP[place]) 2:04 PM [facility] REPOSITORY Order Comment: How was Urine Obtained? CLEAN CATCH TYPE CODE TESTS RESULT OUT OF RANGE REFERENCE UNITS LAB L400.3000 Yellow COLOR Normal Yellow LAB L400.3050 Clear Normal CLARITY Clear LAB L400.3200 Normal mg/dl Normal GLUCOSE, UR Normal LAB L400.3300 Negative mg/dL Normal BILIRUBIN URINE Negative LAB L400.3400 Negative mg/dl Normal KETONE UR Negative LAB L400.3465 1.002-1.030 Normal SP.GR. DIPSTX 1.010 LAB L400.3550 5.0 - 8.0 pH UR Normal 5.0 LAB L400.3600 Negative mg/dl PROT Normal DIPSTX Negative LAB L400.3700 Normal mg/dl Normal UROBILI Normal LAB L400.3750 Negative Normal NITRITE UR Negative LAB L400.3780 Negative /ul Normal OCCULT BLOOD-UR Negative LAB L400.3800 Negative /ul High LEUK ESTERASE 100 Performed By: #### L400.2010 #### [facility] [address] [place], [address] CBC W/DIFF, AUTOMATED Collected: 05/26/2017 Status: F Source: [place] 2:04 PM [facility] REPOSITORY TYPE CODE TESTS RESULT OUT OF RANGE REFERENCE UNITS LAB L100.1000 4.4-11.0 K/mm3 Normal WBC 6.9 LAB L100.1200 4.2-5.4 M/mm3 Normal RBC 4.78 LAB L100.1300 12.0-15.0 g/dl Normal HGB 14.0 LAB L100.1400 37-47 % Normal HCT 43.3 LAB L100.1500 81-99 fL Normal MCV 90.6 LAB L100.1600 27.0-32.0 pg Normal MCH 29.3 LAB L100.1700 32-36 g/gl Normal MCHC 32.3 LAB L100.1810 11.6-14.6 % Normal RDW CV 14.1 LAB L100.1820 35.1-43.9 fl High RDW SD 46.6 LAB L100.1900 150-450 K/mm3 Normal PLT 235 LAB L100.2000 6.2-12.0 fl Normal MPV 11.0 LAB L100.2100 47-70 % Normal NEUT% 64.8 LAB L100.2200 19-41 % Normal LY% 24.6 LAB L100.2300 0-10 % Normal MONO% 6.5 LAB L100.2400 0-5 % Normal EO% 2.8 LAB L100.2500 0-1 % Normal BASO% 1.0 LAB L100.2550 0.0-0.9 % Normal IM GRAN % 0.300 Result Comment: IG% - Immature Granulocytes (promyelocytes, myelocytes and metamyelocytes) > 1% indicates that a LEFT SHIFT is Present. LAB L100.2620 2.0-7.7 X10 3/uL Normal Absolute Neut 4.5 LAB L100.2720 0.83-4.51 X10 3/ul Normal Absolute Lymph 1.70 Performed By: #### L100.0100 #### [facility] [address] [facility] [place], [place], [address] BUN Collected: 05/26/2017 Status: F Source: [place] 2:04 PM [facility] REPOSITORY TYPE CODE TESTS RESULT OUT OF RANGE REFERENCE UNITS LAB L501.1000 7-18 mg/dL High BUN 27 Performed By: #### L501.1000, L501.1105, L501.1800, L501.4100, L501.4405 #### [facility] [address] [place], [address] SERUM CREATININE AND Collected: 05/26/2017 Status: F Source: [place] GFR 2:04 PM [facility] REPOSITORY TYPE CODE TESTS RESULT OUT OF RANGE REFERENCE UNITS LAB L501.1100 0.55-1.02 mg/dL High 1.20 CREAT,SERUM Result Comment: The validity of the calculated GFR AND GFRAA in patients over 70 years has not been determined. Clinical correlation is essential. LAB L501.1110 >60 mL/min Low EST GFR 49 Result Comment: Non- GFR Calc LAB L501.1115 >60 mL/min Low EST GFR - AA 59 Result Comment: GFR Calc Performed By: #### L501.1000, L501.1105, L501.1800, L501.4100, L501.4405 #### [facility] [address] [place], [address] ALBUMIN, SERUM Collected: 05/26/2017 Status: F Source: [place] 2:04 PM [facility] REPOSITORY TYPE CODE TESTS RESULT OUT OF RANGE REFERENCE UNITS LAB L501.1800 3.2-5.0 g/dL Normal ALB 3.9 Performed By: #### L501.1000, L501.1105, L501.1800, L501.4100, L501.4405 #### [facility] [address] [place], [address] AST(SGOT) Collected: 05/26/2017 Status: F Source: [place] 2:04 PM [facility] REPOSITORY TYPE CODE TESTS RESULT OUT OF RANGE REFERENCE UNITS LAB L501.4100 15-37 U/L Normal AST 17 Performed By: #### L501.1000, L501.1105, L501.1800, L501.4100, L501.4405 #### [facility] [address] [place], [address] ALANINE AMINOTRANSFERAS Collected: 05/26/2017 Status: F Source: [place] (SGPT) 2:04 PM [facility] REPOSITORY TYPE CODE TESTS RESULT OUT OF RANGE REFERENCE UNITS LAB L501.4405 13-56 U/L Normal ALT 43 Result Comment: Please note revised ALT reference range effective 2017. Performed By: #### L501.1000, L501.1105, L501.1800, L501.4100, L501.4405 #### [facility] [address] [place], [address] CYCLOSPORINE, BLOOD Collected: 05/26/2017 Status: F Source: [place] 2:04 PM [facility] REPOSITORY TYPE CODE TESTS RESULT OUT OF REFERENCE UNITS RANGE LAB L3400.3100 Cyclosporine Normal Result Comment: TEST RESULT UNITS REF INTERVAL CYCLOSPORINE,LC-MS/MS NONE DETECTED ng/mL 100 - 400 Therapeutic: Renal Transplant 100 - 250 Liver Transplant 100 - 400 Cardiac Transplant 100 - 400 Bone Marrow 200 - 300 Detection Limit = 25 Assay performed by Liquid Chromatography Tandem Mass Spectrometry (LC-MS/MS) If preferred testing methodology for Cyclosporine is Liquid Chromatography Tandem Mass Spectrometry (LC-MS/MS) please use test code [id number]. For testing performed by Immunoassay, please use test code [id number]. Performed at: [address] [id number] [employer] Music Director: Mik Alonso MD, Phone: [phone] Performed By: #### L3400.3090 #### [facility] (refer to report for specific site) refer to report for address and phone number PROGRESS Observed: 05/24/2017 Status: COMPLETED Source: [place] 9:00 AM [facility] [facility] REPOSITORY HNO ID: [id number] Author: Joaquin Orr Service: (none) Author Type: Physician Type: Progress Notes Filed: 05/24/2017 9:51 AM Note Text: Ralph Joshi is here for a consultation upon the request of Dr. Fernández regarding: Adrenal mass PCP is Anisa Caldwell MD Do you have any new pain or pain related to today's visit: No Patient is taking levothyroxin ? No Provider asking for the consultation: Celestine Fernández MD [id number] [facility] [id number] HPI: Ralph Joshi is a 62 year old female with history of has Adrenal nodule (HCC); Urge incontinence; Female stress incontinence; Hirsutism; GERD (gastroesophageal reflux disease); THONY (obstructive sleep apnea); Obesity (BMI 30.0-34.9); Idiopathic anaphylaxis; Hyperlipidemia; Impaired fasting glucose; Multinodular goiter; CKD (chronic kidney disease) stage 3, GFR 30-59 ml/min (HCC); Moderate persistent asthma without complication; Ulcerative colitis without complications (HCC); Chronic nausea; Lumbar stenosis; Cervical stenosis of spine; Claustrophobia; Lumbar spondylosis; Preop testing; Anaphylaxis; and Essential hypertension on her problem list. The patient was sent here urgently for an adrenal mass that was found on ultrasound. However, in review of the chart and with the patient - - she has known of this adrenal mass for many years, and sees Dr. Rolle for this, recently as of 03/29/17. I discussed this with her and we both agreed not proceed with the visit, I will NOT bill her for the visit as she was just seen for this. Any change in your voice? Yes: hoarse Any difficulty with swallowing? Yes: with solids at times Any new neck lumps or bumps? No History of ionizing radiation to the head, neck or chest? No History of CT scan with intravenous contrast within the last 4 months? No Any family history of thyroid cancer? No ROS: SYSTEMIC: good energy and weight fluctuates 10 lbs EYES: normal NECK: discomfort and hoarseness RESPIRATORY: cough, snoring, apnea episodes and asthma and allergies CARDIOVASCULAR: chest pain at rest, chest pain on exertion, palpitations and edema of the lower extremities GASTRO-INTESTINAL: nausea, abdominal pain dull ache and alternating constipation and diarrhea NEUROLOGICAL: normal MUSCULOSKELETAL: Joint pain left ankle(s) and Back pain SKIN: dryness and flushing PSYCHIATRIC: normal Current Outpatient Prescriptions: cyanocobalamin (VITAMIN B-12) 1,000 mcg tab Take 1 tablet by mouth once daily. Disp: Rfl: atenolol (TENORMIN) 25 mg tablet Take 1 tablet by mouth once daily. Disp: 30 tablet Rfl: 5 levalbuterol tartrate HFA (XOPENEX HFA) 45 mcg/actuation inhaler Inhale 1-2 Puffs as instructed every 6 hours as needed for Wheezing/Shortness of Breath. Disp: 3 Inhaler Rfl: 3 EPINEPHrine (EPIPEN) 0.3 mg/0.3 mL auto-injector Inject 0.3 mL intramuscularly as needed. Disp: 2 Each Rfl: 1 pregabalin (LYRICA) 150 mg capsule Take 1 capsule by mouth twice daily for 181 days. Disp: 180 capsule Rfl: 1 predniSONE (DELTASONE) 10 mg tablet Take 2.5 tablets by mouth once daily. (Patient taking differently: Take 25 mg by mouth once daily. Total 25 mg daily ) Disp: Rfl: 0 ergocalciferol, vitamin D2, (VITAMIN D) 50,000 unit capsule Take 1 capsule by mouth once each week. (Patient taking differently: Take 50,000 Units by mouth once each week. Every Monday ) Disp: 12 capsule Rfl: 4 amLODIPine (NORVASC) 10 mg tablet Take 10 mg by mouth once daily. Disp: Rfl: TURMERIC ROOT EXTRACT ORAL Take 1 tablet by mouth twice daily. Disp: Rfl: nitroglycerin sublingual (NITROQUICK) 0.4 mg SL tablet DISSOLVE 1 TABLET UNDER THE TONGUE NEEDED FOR CHEST PAIN IF NO RELIEF CALL 911 Disp: 25 Bottle of 25 Rfl: 3 budesonide (PULMICORT) 0.5 mg/2 mL nebulizer solution Use 1 Ampule via nebulizer twice daily. Disp: 60 Ampule Rfl: 6 crisaborole (EUCRISA) 2 % oint Apply to the hands twice daily Disp: 60 g Rfl: 3 COMPOUNDED PRESCRIPTION Please provide patient with nebulizer machine and supplies.Diagnosis: Severe Asthma. Disp: 1 Each Rfl: 0 fluticasone-vilanterol (BREO ELLIPTA) 100-25 mcg/dose inhaler Inhale 1 Inhalation as instructed once daily. Disp: Rfl: cetirizine (ZYRTEC) 10 mg tablet Take 10 mg by mouth once daily. Disp: Rfl: pimecrolimus (ELIDEL) 1 % cream Apply twice daily to the hands Disp: 30 Tube Rfl: 3 spironolactone (ALDACTONE) 50 mg tablet Take 1 tablet by mouth twice daily. Disp: 180 tablet Rfl: 3 ondansetron (ZOFRAN) 4 mg tablet Take 1 tablet by mouth every 8 hours as needed. Disp: 30 tablet Rfl: 3 Cholestyramine, Bulk, powd Take 1 scoop by mouth once daily. Disp: 1134 g Rfl: 4 bumetanide (BUMEX) 0.5 mg tablet Take 1 tablet by mouth once daily. Disp: 90 tablet Rfl: 4 lansoprazole (PREVACID) 30 mg capsule Take 1 capsule by mouth twice daily. Disp: 180 capsule Rfl: 4 Azelastine 0.15 % (205.5 mcg) spry Use 1 Wilberforce in each nostril twice daily. Disp: 3 Bottle Rfl: 3 levalbuterol (XOPENEX) 1.25 mg/3 mL nebulizer solution Use 1 Ampule via nebulizer every 4 hours as needed. Inhale over 5-15 minutes Disp: 300 Ampule Rfl: 3 fluticasone (FLONASE) 50 mcg/actuation nasal spray 1-2 sprays each side qd Disp: 3 Bottle Rfl: 3 lactobacillus rhamnosus (CULTURELLE) 10 billion cell capsule Take 1 capsule by mouth twice daily. Disp: Rfl: famotidine (PEPCID) 20 mg tablet Take 1 tablet by mouth twice daily. (Patient taking differently: Take 20 mg by mouth twice daily. as needed ) Disp: 14 tablet Rfl: 0 diphenhydrAMINE (BENADRYL) 50 mg capsule Take 1 capsule by mouth every 6 hours as needed for Itching/Rash. Disp: 30 capsule Rfl: 0 amoxicillin (POLYMOX, AMOXIL) 250 mg capsule Take 250 mg by mouth once daily. Disp: Rfl: zafirlukast (ACCOLATE) 20 mg tablet Take 1 tablet by mouth twice daily. Disp: 60 tablet Rfl: 11 doxazosin (CARDURA) 2 mg tablet Take 2 mg by mouth once daily. Disp: Rfl: cycloSPORINE Modified 50 mg capsule Take 50 mg by mouth twice daily. Disp: Rfl: ascorbic acid (VITAMIN C) 500 mg tablet Take 1 tablet by mouth once daily. Disp: 90 tablet Rfl: 0 Benzonatate 200 mg capsule Take 200 mg by mouth three times daily as needed for Cough. Disp: 30 capsule Rfl: 1 No current facility-administered medications for this visit. PAST MEDICAL HISTORY: PAST MEDICAL HISTORY Diagnosis Date - Abdominal pain, other specified site - ACNE NEC 01/21/2008 - Actinic Keratosis (Premalignant AK) 06/05/2011 - ACUTE GASTRITIS W/O HEMORRHAGE 04/26/2007 - Allergic rhinitis 04/23/2012 - Anaphylactic reaction ideopathic - Benign tumor of adrenal gland - Biliary dyskinesia 10/29/2009 - Cervical herniated disc 10/20/2016 - Cervical myelopathy (HCC) 10/25/2016 - Cervical radiculitis 10/20/2016 - Cervical spondylosis with radiculopathy 11/17/2015 - JAIN ANGIOMA///NEVUS, NON-NEOPLASTIC 05/28/2007 - CKD (chronic kidney disease) stage 3, GFR 30-59 ml/min 04/29/2013 - Diaphragmatic hernia without mention of obstruction or gangrene 05/25/2011 - Diverticulosis of colon (without mention of hemorrhage) - Edema 07/07/2004 - Epigastric pain - GERD (gastroesophageal reflux disease) - HTN (hypertension) 2002 controlled on Diovan - Hyperlipidemia 10/15/2013 - IRON DEFIC ANEMIA NOS 04/26/2007 - Moderate persistent asthma without complication 02/18/2015 - Ovarian cyst Benign ovarian cyst, S/P laparoscopic LSO - Ptosis of eyelid, bilateral 12/23/2016 Added automatically from request for surgery [id number] - Shoulder impingement 11/17/2015 - Sleep apnea intollerant to CPAP because allergic to material on mask - Steroid-induced hyperglycemia 09/06/2014 - TACHYCARDIA NOS 01/09/2006 - Tarsal tunnel syndrome 12/23/2009 - Tear of lateral meniscus of knee 02/21/2014 - Ulcerative colitis, unspecified - UTERINE LEIOMYOMA NOS 12/23/2005 - VIRAL WARTS NOS 05/09/2006 - Vocal cord dysfunction PAST SURGICAL HISTORY Procedure Laterality Date - CHOLECYSTECTOMY HX - COLONOSCOP W/ OR W/O [facility] SPEC 09/06/2005 Colonoscopy - COLONOSCOP W/ OR W/O [facility] SPEC Colonoscopy - COLONOSCOP W/ OR W/O [facility] SPEC 05/28/2012 Colonoscopy repeat 5 years. - EGD 07/29/14 normal - EGD W/O OR W/BRUSH/WASH 09/06/2005 EGD - EGD W/O OR W/BRUSH/WASH 04/26/2007 EGD - EGD W/O OR W/BRUSH/WASH 05/25/2011 EGD - EGD W/O OR W/BRUSH/WASH 05/28/2012 EGD - L'SCOPE REM ADNEX W/PART/TOT OOPH/SALP 06/11/2009 Laparoscopic LSO for benign ovarian cyst - LAMINECTOMY,CERVICAL 10/2016 - LAP CHOLECYSTECT/CHOLANGIOGRAPHY 10/30/09 Normal IOC - ORTHOPEDICS SURGERY HX 12/2013 repaired Rt achilles tendon - PAST SURGICAL HISTORY OF 09/19 left foot surgery on heel and repaired torn tdndon - SIGMOIDOSCOPY FLEX DIAG 05/20/08 - TARSAL TUNNEL RELEASE 07/2010 Left foot FAMILY HISTORY: FAMILY HISTORY Problem Relation Age of Onset - Colon Cancer Father dx age 60. Alive at 85. - Hypertension Father Alive at 85. - Cataract Father Alive at 85. - Thyroid Father Alive at 85. - Heart Father [place] at 87 - Diabetes Mother colon polyps. age 72. - Hypertension Mother age 72. - benign brainstem tumor [OTHER] Mother Persistent vegetative state. age 72. - defects Sister infant - Glaucoma Maternal Grandmother - Stroke Maternal Grandfather - Cancer Paternal Grandmother cervical - Colon Cancer Son 38 colon and rectal cancer - Breast Cancer Sister Developed in late 20s. Alive at 52. 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 GENERAL: Well nourished, well hydrated, in no distress and oriented x 3 Previous laboratory results: TSH (uU/mL) Date Value 08/25/2015 2.840 11/06/2013 2.330 10/21/2013 1.720 Thyroglobulin (ng/mL) Date Value 11/06/2013 13.6 Impression and recommendations: No charge for the appointment, she will see Dr. Rolle. Joaquin Orr MD PROGRESS Observed: 05/22/2017 Status: COMPLETED Source: [place] 3:08 PM [facility] [place] REPOSITORY HNO ID: [id number] Author: Ijeoma Huang Rt Service: (none) Author Type: (none) Type: Progress Notes Filed: 05/22/2017 3:08 PM Note Text: Radiology Service Progress Note PATIENT NAME: Ralph Joshi DATE OF SERVICE: May 22, 2017 TIME: 3:08 PM PATIENT IDENTITY VERIFICATION COMPLETED USING TWO (2) METHODS: Patient confirmed name verbally. PATIENT GENDER DATA: Female. status: : No status: NO. PATIENT RELEVANT IMPLANT DATA REVIEWED: Not Applicable RADIOLOGY DEPARTMENT: General X-ray: Exam(s) Completed: Lower Extremity X-Ray(s): Ankle, Left: PERIPHERAL IV DATA: Not applicable SIGNED BY: Ijeoma Huang Rt May 22, 2017 3:08 PM XR ANKLE 3V AP/LAT/OBL Observed: 05/22/2017 Status: F Source: [facility] 3:08 PM [facility] REPOSITORY * * *Final Report* * * DATE OF EXAM: May 22 2017 3:08PM CCX [id number] - XR ANKLE 3V AP/LAT/OBL LT / PROCEDURE REASON: Pain in left ankle and joints of left foot * * * * Physician Interpretation * * * * Clinical Information: Pain Three views of the left ankle were obtained. Surgical screws are identified within the calcaneus. No acute fracture is identified. Ankle mortise is intact. No lytic or blastic lesions are identified. Small calcaneal spur and Achilles tendon insertion enthesophyte. Mild degree of soft tissue swelling. IMPRESSION: Mild soft tissue swelling with no acute bony abnormality. 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 History of achilles tendon repair on that side ~ 10 years ago. Denies any falls or injury. Denies difficulty walking. Left ankle is more swollen than the right. Some skin concerns in groin area. Has been having elevated BP readings at home. Suffers from stool leakage at times. Had a colonoscopy in November 2016 - small polyps, but otherwise normal. REVIEW OF SYSTEMS PAIN ASSESSMENT: Negative for pain, history of chronic pain, or current treatment for a chronic pain condition. GENERAL: No weight loss, malaise or fevers HEENT: Negative for frequent or significant headaches, No changes in hearing or vision, no nose bleeds or other nasal problems NECK: Negative for lumps, goiter, pain and significant neck swelling RESPIRATORY: Negative for cough, hemoptysis, wheezing or shortness of breath CARDIOVASCULAR: Negative for chest pain, leg swelling or palpitations GI: No nausea, vomiting, or diarrhea : No history of dysuria, frequency or incontinence CHOKE SETTER: Negative for abnormal vaginal bleeding, abnormal vaginal discharge MUSCULOSKELETAL: Negative for joint pain or swelling, back pain or muscle pain SKIN: Negative for lesions, rash, and itching PSYCH: Negative for sleep disturbance, mood disorder and recent psychosocial stressors HEMATOLOGY/LYMPHOLOGY: Negative for prolonged bleeding, bruising easily or swollen nodes ENDOCRINE: Negative for cold or heat intolerance, polyuria, polydipsia and goiter NEURO: No history of headaches, syncope, paralysis, seizures or tremors PAST MEDICAL HISTORY Diagnosis Date - Abdominal pain, other specified site - ACNE NEC 01/21/2008 - Actinic Keratosis (Premalignant AK) 06/05/2011 - ACUTE GASTRITIS W/O HEMORRHAGE 04/26/2007 - Allergic rhinitis 04/23/2012 - Anaphylactic reaction ideopathic - Benign tumor of adrenal gland - Biliary dyskinesia 10/29/2009 - Cervical herniated disc 10/20/2016 - Cervical myelopathy (HCC) 10/25/2016 - Cervical radiculitis 10/20/2016 - Cervical spondylosis with radiculopathy 11/17/2015 - JAIN ANGIOMA///NEVUS, NON-NEOPLASTIC 05/28/2007 - CKD (chronic kidney disease) stage 3, GFR 30-59 ml/min 04/29/2013 - Diaphragmatic hernia without mention of obstruction or gangrene 05/25/2011 - Diverticulosis of colon (without mention of hemorrhage) - Edema 07/07/2004 - Epigastric pain - GERD (gastroesophageal reflux disease) - HTN (hypertension) 2002 controlled on Diovan - Hyperlipidemia 10/15/2013 - IRON DEFIC ANEMIA NOS 04/26/2007 - Moderate persistent asthma without complication 02/18/2015 - Ovarian cyst Benign ovarian cyst, S/P laparoscopic LSO - Ptosis of eyelid, bilateral 12/23/2016 Added automatically from request for surgery [id number] - Shoulder impingement 11/17/2015 - Sleep apnea intollerant to CPAP because allergic to material on mask - Steroid-induced hyperglycemia 09/06/2014 - TACHYCARDIA NOS 01/09/2006 - Tarsal tunnel syndrome 12/23/2009 - Tear of lateral meniscus of knee 02/21/2014 - Ulcerative colitis, unspecified - UTERINE LEIOMYOMA NOS 12/23/2005 - VIRAL WARTS NOS 05/09/2006 - Vocal cord dysfunction PAST SURGICAL HISTORY Procedure Laterality Date - CHOLECYSTECTOMY HX - COLONOSCOP W/ OR W/O [facility] SPEC 09/06/2005 Colonoscopy - COLONOSCOP W/ OR W/O [facility] SPEC Colonoscopy - COLONOSCOP W/ OR W/O [facility] SPEC 05/28/2012 Colonoscopy repeat 5 years. - EGD 07/29/14 normal - EGD W/O OR W/BRUSH/WASH 09/06/2005 EGD - EGD W/O OR W/BRUSH/WASH 04/26/2007 EGD - EGD W/O OR W/BRUSH/WASH 05/25/2011 EGD - EGD W/O OR W/BRUSH/WASH 05/28/2012 EGD - L'SCOPE REM ADNEX W/PART/TOT OOPH/SALP 06/11/2009 Laparoscopic LSO for benign ovarian cyst - LAMINECTOMY,CERVICAL 10/2016 - LAP CHOLECYSTECT/CHOLANGIOGRAPHY 10/30/09 Normal IOC - ORTHOPEDICS SURGERY HX 12/2013 repaired Rt achilles tendon - PAST SURGICAL HISTORY OF 09/19 left foot surgery on heel and repaired torn tdndon - SIGMOIDOSCOPY FLEX DIAG 05/20/08 - TARSAL TUNNEL RELEASE 07/2010 Left foot ALLERGIES Avocado; Banana; Carbinoxamine; Yoselin Seed; Ciprofloxacin; Codeine; Contrast Dye; Fish; Hycodan [Hydrocodone-Homatropine]; Latex; Imtiaz-Synephrine [Phenylephrine Hcl]; Nickel; Nsaids (Non-Steroidal Anti-Inflammatory Drug); Oxycodone; Periactin [Cyproheptadine]; Pneumococcal Vaccine; Shellfish; Zantac [Ranitidine]; Ativan [Lorazepam]; Beef Containing Products; Berino; Eggs [Egg]; Ekg Leads [Adhesive]; Influenza Virus Vaccines; Lisinopril; Milk; Mometasone; Xolair [Omalizumab]; Environmental [Other]; Surgical Tape [Other] MEDICATIONS levalbuterol tartrate HFA (XOPENEX HFA) 45 mcg/actuation inhaler Inhale 1-2 Puffs as instructed every 6 hours as needed for Wheezing/Shortness of Breath. EPINEPHrine (EPIPEN) 0.3 mg/0.3 mL auto-injector Inject 0.3 mL intramuscularly as needed. benzonatate (TESSALON PERLE) 100 mg capsule Take 2 capsules by mouth three times daily as needed. pregabalin (LYRICA) 150 mg capsule Take 1 capsule by mouth twice daily for 181 days. predniSONE (DELTASONE) 10 mg tablet Take 2.5 tablets by mouth once daily. ergocalciferol, vitamin D2, (VITAMIN D) 50,000 unit capsule Take 1 capsule by mouth once each week. amLODIPine (NORVASC) 10 mg tablet Take 10 mg by mouth once daily. TURMERIC ROOT EXTRACT ORAL Take 1 tablet by mouth twice daily. nitroglycerin sublingual (NITROQUICK) 0.4 mg SL tablet DISSOLVE 1 TABLET UNDER THE TONGUE NEEDED FOR CHEST PAIN IF NO RELIEF CALL 911 budesonide (PULMICORT) 0.5 mg/2 mL nebulizer solution Use 1 Ampule via nebulizer twice daily. crisaborole (EUCRISA) 2 % oint Apply to the hands twice daily COMPOUNDED PRESCRIPTION Please provide patient with nebulizer machine and supplies.Diagnosis: Severe Asthma. fluticasone-vilanterol (BREO ELLIPTA) 100-25 mcg/dose inhaler Inhale 1 Inhalation as instructed once daily. cetirizine (ZYRTEC) 10 mg tablet Take 10 mg by mouth once daily. pimecrolimus (ELIDEL) 1 % cream Apply twice daily to the hands spironolactone (ALDACTONE) 50 mg tablet Take 1 tablet by mouth twice daily. ondansetron (ZOFRAN) 4 mg tablet Take 1 tablet by mouth every 8 hours as needed. Cholestyramine, Bulk, powd Take 1 scoop by mouth once daily. bumetanide (BUMEX) 0.5 mg tablet Take 1 tablet by mouth once daily. lansoprazole (PREVACID) 30 mg capsule Take 1 capsule by mouth twice daily. Azelastine 0.15 % (205.5 mcg) spry Use 1 Wilberforce in each nostril twice daily. levalbuterol (XOPENEX) 1.25 mg/3 mL nebulizer solution Use 1 Ampule via nebulizer every 4 hours as needed. Inhale over 5-15 minutes fluticasone (FLONASE) 50 mcg/actuation nasal spray 1-2 sprays each side qd Benzonatate 200 mg capsule Take 200 mg by mouth three times daily as needed for Cough. lactobacillus rhamnosus (CULTURELLE) 10 billion cell capsule Take 1 capsule by mouth twice daily. famotidine (PEPCID) 20 mg tablet Take 1 tablet by mouth twice daily. diphenhydrAMINE (BENADRYL) 50 mg capsule Take 1 capsule by mouth every 6 hours as needed for Itching/Rash. amoxicillin (POLYMOX, AMOXIL) 250 mg capsule Take 250 mg by mouth once daily. zafirlukast (ACCOLATE) 20 mg tablet Take 1 tablet by mouth twice daily. doxazosin (CARDURA) 2 mg tablet Take 2 mg by mouth once daily. cycloSPORINE Modified 50 mg capsule Take 50 mg by mouth twice daily. ascorbic acid (VITAMIN C) 500 mg tablet Take 1 tablet by mouth once daily. FAMILY HISTORY Problem Relation Age of Onset - Colon Cancer Father dx age 60. Alive at 85. - Hypertension Father Alive at 85. - Cataract Father Alive at 85. - Thyroid Father Alive at 85. - Heart Father [place] at 87 - Diabetes Mother colon polyps. age 72. - Hypertension Mother age 72. - benign brainstem tumor [OTHER] Mother Persistent vegetative state. age 72. - defects Sister infant - Glaucoma Maternal Grandmother - Stroke Maternal Grandfather - Cancer Paternal Grandmother cervical - Colon Cancer Son 38 colon and rectal cancer - Breast Cancer Sister Developed in late 20s. Alive at 52. 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 Skin: Skin tag on right labia. Blackhead on mons pubis. Head: Normocephalic, no masses, lesions, tenderness or abnormalities. Eyes: Anicteric sclera. PERRL. EOM intact. . Neck: Supple, no adenopathy; thyroid symmetric, normal size, no bruits. Lungs: Lungs clear to auscultation. No wheezing, rhonchi, rales. Heart: RRR without murmur, gallop, or rubs Abdomen: Abdomen soft, non-tender. BS normal. No masses, organomegaly. Extremities: No deformities, edema, skin discoloration, clubbing or cyanosis. Good capillary refill. . Musculoskeletal: No joint swelling, deformity, or tenderness. Neurologic: Gait normal. Sensation grossly intact.. Component Latest Ref Rng AND Units 11/14/2016 04/19/2017 WBC 3.70 - 11.00 k/uL 8.59 RBC 3.90 - 5.20 m/uL 4.79 Hemoglobin 11.5 - 15.5 g/dL 14.1 Hematocrit 36.0 - 46.0 % 42.6 MCV 80.0 - 100.0 fL 88.9 MCH 26.0 - 34.0 pG 29.4 MCHC 30.5 - 36.0 g/dL 33.1 RDW-CV 11.5 - 15.0 % 14.3 Platelet Count 150 - 400 k/uL 218 MPV 9.0 - 12.7 fL 10.9 Neut% % 76.6 Abs Neut (ANC) 1.45 - 7.50 k/uL 6.58 Lymph% % 7.6 Abs Lymph 1.00 - 4.00 k/uL 0.65 (L) Potter% % 12.2 Abs Potter <0.87 k/uL 1.05 (H) Eosin% % 2.6 Abs Eosin <0.46 k/uL 0.22 Baso% % 1.0 Abs Baso <0.11 k/uL 0.09 Nucleated Reds 0 /100 WBC 0.0 Absolute nRBC <0.01 k/uL <0.01 Diff Type Auto Diff Triglyceride 30 - 149 mg/dL 139 Cholesterol, Total 100 - 199 mg/dL 212 (H) HDL Cholesterol >55 mg/dL 49 (L) VLDL Cholesterol 6 - 40 mg/dL 28 LDL Cholesterol 60 - 129 mg/dL 135 (H) Fasting Time hrs 12 TC:HDL Ratio 1.00 - 5.00 4.33 LDL:HDL Ratio 0.50 - 3.55 2.76 Non HDL Cholesterol 90 - 159 mg/dL 163 (H) Hemoglobin A1C 4.3 - 5.6 % 5.9 (H) Estimated Average Glucose mg/dL 123 Lab Results Component Value Date HBA1C 5.9 04/19/2017 HBA1C 5.9 04/12/2017 HBA1C 6.4 05/09/2016 ASSESSMENT/PLAN: 1. Routine general medical examination at health care facility - ICD9: V70.0, ICD10: Z00.00 (primary diagnosis) - Completed breast exam - Encouraged monthly Breast Self Exam - Follow up for annual exam in one year. 2. Hyperlipidemia, unspecified hyperlipidemia type - ICD9: 272.4, ICD10: E78.5 - improved control - Encouraged following a low carbohydrate, healthy oil intake diet. 3. CKD (chronic kidney disease) stage 3, GFR 30-59 ml/min (HCC) - ICD9: 585.3, ICD10: N18.3 - Stable. Scheduled to see Nephrology in June. 4. Ulcerative colitis without complications, unspecified location (HCC) - ICD9: 556.9, ICD10: K51.90 - Stable 5. Essential hypertension - ICD9: 401.9, ICD10: I10 - poor control - Recommended regular aerobic exercise. - Recommend home blood pressure monitoring, to bring results in on next visit - Start on Atenolol 25 mg - Goal of BP <130/80 6. Acute left ankle pain - ICD9: 719.47, ICD10: M25.572 - XR ANKLE 2V AP/LAT LT - CONSULT TO PODIATRY 7. B12 deficiency - ICD9: 266.2, ICD10: E53.8 - Start supplementation. - CYANOCOBALAMIN (VIT B-12) 1,000 MCG TABLET 8. Incontinence of feces, unspecified fecal incontinence type - ICD9: 787.60, ICD10: R15.9 - Add more fiber to her diet. Start OTC fiber like metamucil or bene fiber. - CONSULT TO GASTROENTEROLOGY 9. Moderate persistent asthma without complication - ICD9: 493.90, ICD10: J45.40 - Stable control. Managed by Allergy. - PARKING FOR HANDICAPPED 10. Prediabetes - ICD9: 790.29, ICD10: R73.03 - Stable. RTC in 2-4 weeks. I spent 40 minutes in the visit, with more than 50% of the total [id number] time of the visit in counseling / coordination of care. Anisa Caldwell MD May 22, 2017 2:11 PM US ABDOMEN COMPLETE Observed: 05/19/2017 Status: F Source: [place] 8:52 AM [facility] * * *Final Report* * * DATE OF EXAM: May 19 2017 8:52AM WRU 1040 - US ABDOMEN COMPLETE / PROCEDURE REASON: Anaphylactic shock, unspecified, subsequent encounter * * * * Physician Interpretation * * * * US ABDOMEN COMPLETE HISTORY: Epigastric pain. COMPARISON: None. TECHNIQUE: Sonography of the abdomen was performed. Images were obtained and stored in a permanent archive. RESULT: Limitations: Body habitus. Pancreas: Normal sonographic appearance in the visualized portions. Portions obscured: Tail Liver: Echotexture: Homogeneous Echogenicity: Increase in echogenicity Surface contour: Smooth Lesions: There is a 6.1 x 3.2 x 4.2 cm low-attenuation area near the casa hepatis. Biliary: Intrahepatic bile ducts: Normal CBD: 4 mm, Gallbladder: Surgically absent Spleen: Size: 11.1 x 7.8 x 10 cm Lesions: None Right Kidney: Length: 10.9 cm Lesions: There is a 2 x 1.8 x 2 cm heterogeneous hypoechoic lesion seen along the lateral aspect of the interpolar to lower pole of the kidney. Hydronephrosis: none Left kidney: Length: 10.7 cm Lesions: none Hydronephrosis: none IVC: Imaged segment is patent Abdominal Aorta (AP x TV): Proximal: Not seen Mid: 1.7 x 1.9 cm Distal: 1.5 x 1 7 cm Ascites: None IMPRESSION: Findings are suggestive of hepatic steatosis. 6.1 cm hypoechoic area near the casa hepatis, likely representing fatty sparing. 2 cm right adrenal mass lesion. Consider follow-up. 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 Transcribe Date/Time: May 19 2017 9:44A Dictated by : SHAE ENGLAND MD This examination was interpreted and the report reviewed and electronically signed by: SHAE ENGLAND MD on May 19 2017 9:53AM EST [id number] PROGRESS Observed: 05/19/2017 Status: COMPLETED Source: [place] 8:10 AM [facility] HNO ID: [id number] Author: Maria Osuna Service: (none) Author Type: (none) Type: Progress Notes Filed: 05/19/2017 8:52 AM Note Text: Radiology Service Progress Note PATIENT NAME: Ralph Joshi DATE OF SERVICE: May 19, 2017 TIME: 8:10 AM PATIENT IDENTITY VERIFICATION COMPLETED USING TWO (2) METHODS: Patient confirmed name verbally and Date of . PATIENT GENDER DATA: Female. status: : No status: NO. PATIENT RELEVANT IMPLANT DATA REVIEWED: Yes RADIOLOGY DEPARTMENT: Ultrasound PERIPHERAL IV DATA: Not applicable SIGNED BY: Maria Osuna May 19, 2017 8:10 AM PROGRESS Observed: 05/13/2017 Status: COMPLETED Source: [place] 1:39 PM [facility] HNO ID: [id number] Author: Ivette Carmichael (Pa) Service: (none) Author Type: Physician Vegetable Farm Manager Type: Progress Notes Filed: 05/13/2017 1:52 PM Note Text: HPI Ralph Joshi is a 62 year old female who presents with hacking dry cough and congestion. Her ears feel plugged. Her father has influenza and admitted to the hospital. She had a low grade fever at 99.3 F. She has Asthma and has done two home aerosols today. Review of Systems Constitutional: Negative for chills and fever. HENT: Positive for congestion, ear pain and sinus pain. Negative for sore throat. Respiratory: Positive for cough and shortness of breath. Negative for sputum production, wheezing and stridor. All other systems reviewed and are negative. PAST MEDICAL HISTORY Diagnosis Date - Abdominal pain, other specified site - ACNE NEC 01/21/2008 - Actinic Keratosis (Premalignant AK) 06/05/2011 - ACUTE GASTRITIS W/O HEMORRHAGE 04/26/2007 - Allergic rhinitis 04/23/2012 - Anaphylactic reaction ideopathic - Benign tumor of adrenal gland - Biliary dyskinesia 10/29/2009 - Cervical herniated disc 10/20/2016 - Cervical myelopathy (HCC) 10/25/2016 - Cervical radiculitis 10/20/2016 - Cervical spondylosis with radiculopathy 11/17/2015 - JAIN ANGIOMA///NEVUS, NON-NEOPLASTIC 05/28/2007 - CKD (chronic kidney disease) stage 3, GFR 30-59 ml/min 04/29/2013 - Diaphragmatic hernia without mention of obstruction or gangrene 05/25/2011 - Diverticulosis of colon (without mention of hemorrhage) - Edema 07/07/2004 - Epigastric pain - GERD (gastroesophageal reflux disease) - HTN (hypertension) 2002 controlled on Diovan - Hyperlipidemia 10/15/2013 - IRON DEFIC ANEMIA NOS 04/26/2007 - Moderate persistent asthma without complication 02/18/2015 - Ovarian cyst Benign ovarian cyst, S/P laparoscopic LSO - Ptosis of eyelid, bilateral 12/23/2016 Added automatically from request for surgery [id number] - Shoulder impingement 11/17/2015 - Sleep apnea intollerant to CPAP because allergic to material on mask - Steroid-induced hyperglycemia 09/06/2014 - TACHYCARDIA NOS 01/09/2006 - Tarsal tunnel syndrome 12/23/2009 - Tear of lateral meniscus of knee 02/21/2014 - Ulcerative colitis, unspecified - UTERINE LEIOMYOMA NOS 12/23/2005 - VIRAL WARTS NOS 05/09/2006 - Vocal cord dysfunction PAST SURGICAL HISTORY Procedure Laterality Date - CHOLECYSTECTOMY HX - COLONOSCOP W/ OR W/O BRSH SPEC 09/06/2005 Colonoscopy - COLONOSCOP W/ OR W/O BRSH SPEC Colonoscopy - COLONOSCOP W/ OR W/O BRSH SPEC 05/28/2012 Colonoscopy repeat 5 years. - EGD 07/29/14 normal - EGD W/O OR W/BRUSH/WASH 09/06/2005 EGD - EGD W/O OR W/BRUSH/WASH 04/26/2007 EGD - EGD W/O OR W/BRUSH/WASH 05/25/2011 EGD - EGD W/O OR W/BRUSH/WASH 05/28/2012 EGD - L'SCOPE REM ADNEX W/PART/TOT OOPH/SALP 06/11/2009 Laparoscopic LSO for benign ovarian cyst - LAMINECTOMY,CERVICAL 10/2016 - LAP CHOLECYSTECT/CHOLANGIOGRAPHY 10/30/09 Normal IOC - ORTHOPEDICS SURGERY HX 12/2013 repaired Rt achilles tendon - PAST SURGICAL HISTORY OF 09/19 left foot surgery on heel and repaired torn tdndon - SIGMOIDOSCOPY FLEX DIAG 05/20/08 - TARSAL TUNNEL RELEASE 07/2010 Left foot ALLERGIES Avocado; Banana; Carbinoxamine; Yoselin Seed; Ciprofloxacin; Codeine; Contrast Dye; Fish; Hycodan [Hydrocodone-Homatropine]; Latex; Imtiaz-Synephrine [Phenylephrine Hcl]; Nickel; Nsaids (Non-Steroidal Anti-Inflammatory Drug); Oxycodone; Periactin [Cyproheptadine]; Pneumococcal Vaccine; Shellfish; Zantac [Ranitidine]; Ativan [Lorazepam]; Beef Containing Products; Berino; Eggs [Egg]; Ekg Leads [Adhesive]; Influenza Virus Vaccines; Lisinopril; Milk; Mometasone; Xolair [Omalizumab]; Environmental [Other]; Surgical Tape [Other] MEDICATIONS levalbuterol tartrate HFA (XOPENEX HFA) 45 mcg/actuation inhaler Inhale 1-2 Puffs as instructed every 6 hours as needed for Wheezing/Shortness of Breath. EPINEPHrine (EPIPEN) 0.3 mg/0.3 mL auto-injector Inject 0.3 mL intramuscularly as needed. pregabalin (LYRICA) 150 mg capsule Take 1 capsule by mouth twice daily for 181 days. predniSONE (DELTASONE) 10 mg tablet Take 2.5 tablets by mouth once daily. ergocalciferol, vitamin D2, (VITAMIN D) 50,000 unit capsule Take 1 capsule by mouth once each week. amLODIPine (NORVASC) 10 mg tablet Take 10 mg by mouth once daily. TURMERIC ROOT EXTRACT ORAL Take 1 tablet by mouth twice daily. COMPOUNDED PRESCRIPTION Nocturnal oximetry on room air. nitroglycerin sublingual (NITROQUICK) 0.4 mg SL tablet DISSOLVE 1 TABLET UNDER THE TONGUE NEEDED FOR CHEST PAIN IF NO RELIEF CALL 911 budesonide (PULMICORT) 0.5 mg/2 mL nebulizer solution Use 1 Ampule via nebulizer twice daily. COMPOUNDED PRESCRIPTION Please provide patient with nebulizer machine and supplies.Diagnosis: Severe Asthma. fluticasone-vilanterol (BREO ELLIPTA) 100-25 mcg/dose inhaler Inhale 1 Inhalation as instructed once daily. cetirizine (ZYRTEC) 10 mg tablet Take 10 mg by mouth once daily. pimecrolimus (ELIDEL) 1 % cream Apply twice daily to the hands spironolactone (ALDACTONE) 50 mg tablet Take 1 tablet by mouth twice daily. ondansetron (ZOFRAN) 4 mg tablet Take 1 tablet by mouth every 8 hours as needed. Cholestyramine, Bulk, powd Take 1 scoop by mouth once daily. bumetanide (BUMEX) 0.5 mg tablet Take 1 tablet by mouth once daily. lansoprazole (PREVACID) 30 mg capsule Take 1 capsule by mouth twice daily. Azelastine 0.15 % (205.5 mcg) spry Use 1 Wilberforce in each nostril twice daily. levalbuterol (XOPENEX) 1.25 mg/3 mL nebulizer solution Use 1 Ampule via nebulizer every 4 hours as needed. Inhale over 5-15 minutes fluticasone (FLONASE) 50 mcg/actuation nasal spray 1-2 sprays each side qd lactobacillus rhamnosus (CULTURELLE) 10 billion cell capsule Take 1 capsule by mouth twice daily. famotidine (PEPCID) 20 mg tablet Take 1 tablet by mouth twice daily. diphenhydrAMINE (BENADRYL) 50 mg capsule Take 1 capsule by mouth every 6 hours as needed for Itching/Rash. amoxicillin (POLYMOX, AMOXIL) 250 mg capsule Take 250 mg by mouth once daily. zafirlukast (ACCOLATE) 20 mg tablet Take 1 tablet by mouth twice daily. doxazosin (CARDURA) 2 mg tablet Take 2 mg by mouth once daily. cycloSPORINE Modified 50 mg capsule Take 50 mg by mouth twice daily. ascorbic acid (VITAMIN C) 500 mg tablet Take 1 tablet by mouth once daily. predniSONE (DELTASONE) 20 mg tablet 2 pills daily x 3 days, then 1 pill daily x 4 days. azithromycin (ZITHROMAX) 250 mg tablet Take 1 tablet by mouth once daily. benzonatate (TESSALON PERLE) 100 mg capsule Take 2 capsules by mouth three times daily as needed. crisaborole (EUCRISA) 2 % oint Apply to the hands twice daily Benzonatate 200 mg capsule Take 200 mg by mouth three times daily as needed for Cough. FAMILY HISTORY Problem Relation Age of Onset - Colon Cancer Father dx age 60. Alive at 85. - Hypertension Father Alive at 85. - Cataract Father Alive at 85. - Thyroid Father Alive at 85. - Heart Father [place] at 87 - Diabetes Mother colon polyps. age 72. - Hypertension Mother age 72. - benign brainstem tumor [OTHER] Mother Persistent vegetative state. age 72. - defects Sister - Glaucoma Maternal Grandmother - Stroke Maternal Grandfather - Cancer Paternal Grandmother cervical - Colon Cancer Son 38 colon and rectal cancer - Breast Cancer Sister Developed in late 20s. Alive at 52. - Osteoporosis Sister - colon polyps [OTHER] Sister 3 sisters with colon polyps Social History Substance Use Topics - Smoking status: Never Smoker - Smokeless tobacco: Never Used - Alcohol use No Physical Exam Constitutional: She is oriented to person, place, and time and well-developed, well-nourished, and in no distress. HENT: Head: Normocephalic and atraumatic. Right Ear: External ear normal. Left Ear: External ear normal. Nose: Nose normal. Mouth/Throat: Oropharynx is clear and moist. Eyes: Conjunctivae are normal. Neck: No JVD present. Cardiovascular: Normal rate, regular rhythm, normal heart sounds and intact distal pulses. Pulmonary/Chest: Effort normal. No stridor. No respiratory distress. She has wheezes. Abdominal: Soft. Bowel sounds are normal. Lymphadenopathy: She has no cervical adenopathy. Neurological: She is alert and oriented to person, place, and time. Skin: Skin is warm and dry. Psychiatric: Affect normal. Blood pressure 132/86, pulse 106, temperature 36.8 ?C (98.2 ?F), temperature source Left Tympanic, resp. rate 12, weight 92.6 kg (204 lb 3.2 oz), last menstrual period 08/07/2013, SpO2 98 %. ASSESSMENT/PLAN: 1. Bronchitis, not specified as acute or chronic - ICD9: 490, ICD10: J40 Continue Bronchodilators as needed. If symptoms worsen return to the clinic and or contact your Bottled Beverage Inspector. - PREDNISONE 20 MG TABLET Ivette Carmichael PA-C CNOV Observed: 05/13/2017 Status: COMPLETED Source: [place] 1:00 PM [facility] Office Visit ([facility]) RALPH JOSHI ([id number]) 1955 F Date Time Provider Department 05/13/17 1:00 PM IVETTE CARMICHALE) WSTR During your visit today, we recorded the following information about you: Temperature Pulse Respiration Blood pressure 98.2 degrees 106/minute 12/minute 132/86 Weight 92.6 kg Ivette Carmichael PA-C 05/13/2017 1:52 PM Signed HPI Ralph Pratibha [place] is a 62 year old female who presents with hacking dry cough and congestion. Her ears feel plugged. Her father has influenza and admitted to the hospital. She had a low grade fever at 99.3 F. She has Asthma and has done two home aerosols today. Review of Systems Constitutional: Negative for chills and fever. HENT: Positive for congestion, ear pain and sinus pain. Negative for sore throat. Respiratory: Positive for cough and shortness of breath. Negative for sputum production, wheezing and stridor. All other systems reviewed and are negative. PAST MEDICAL HISTORY Diagnosis Date - Abdominal pain, other specified site - ACNE NEC 01/21/2008 - Actinic Keratosis (Premalignant AK) 06/05/2011 - ACUTE GASTRITIS W/O HEMORRHAGE 04/26/2007 - Allergic rhinitis 04/23/2012 - Anaphylactic reaction ideopathic - Benign tumor of adrenal gland - Biliary dyskinesia 10/29/2009 - Cervical herniated disc 10/20/2016 - Cervical myelopathy (HCC) 10/25/2016 - Cervical radiculitis 10/20/2016 - Cervical spondylosis with radiculopathy 11/17/2015 - JAIN ANGIOMA///NEVUS, NON-NEOPLASTIC 05/28/2007 - CKD (chronic kidney disease) stage 3, GFR 30-59 ml/min 04/29/2013 - Diaphragmatic hernia without mention of obstruction or gangrene 05/25/2011 - Diverticulosis of colon (without mention of hemorrhage) - Edema 07/07/2004 - Epigastric pain - GERD (gastroesophageal reflux disease) - HTN (hypertension) 2002 controlled on Diovan - Hyperlipidemia 10/15/2013 - IRON DEFIC ANEMIA NOS 04/26/2007 - Moderate persistent asthma without complication 02/18/2015 - Ovarian cyst Benign ovarian cyst, S/P laparoscopic LSO - Ptosis of eyelid, bilateral 12/23/2016 Added automatically from request for surgery [id number] - Shoulder impingement 11/17/2015 - Sleep apnea intollerant to CPAP because allergic to material on mask - Steroid-induced hyperglycemia 09/06/2014 - TACHYCARDIA NOS 01/09/2006 - Tarsal tunnel syndrome 12/23/2009 - Tear of lateral meniscus of knee 02/21/2014 - Ulcerative colitis, unspecified - UTERINE LEIOMYOMA NOS 12/23/2005 - VIRAL WARTS NOS 05/09/2006 - Vocal cord dysfunction PAST SURGICAL HISTORY Procedure Laterality Date - CHOLECYSTECTOMY HX - COLONOSCOP W/ OR W/O [facility] SPEC 09/06/2005 Colonoscopy - COLONOSCOP W/ OR W/O [facility] SPEC Colonoscopy - COLONOSCOP W/ OR W/O [facility] SPEC 05/28/2012 Colonoscopy repeat 5 years. - EGD 07/29/14 normal - EGD W/O OR W/BRUSH/WASH 09/06/2005 EGD - EGD W/O OR W/BRUSH/WASH 04/26/2007 EGD - EGD W/O OR W/BRUSH/WASH 05/25/2011 EGD - EGD W/O OR W/BRUSH/WASH 05/28/2012 EGD - L'SCOPE REM ADNEX W/PART/TOT OOPH/SALP 06/11/2009 Laparoscopic LSO for benign ovarian cyst - LAMINECTOMY,CERVICAL 10/2016 - LAP CHOLECYSTECT/CHOLANGIOGRAPHY 10/30/09 Normal IOC - ORTHOPEDICS SURGERY HX 12/2013 repaired Rt achilles tendon - PAST SURGICAL HISTORY OF 09/19 left foot surgery on heel and repaired torn tdndon - SIGMOIDOSCOPY FLEX DIAG 05/20/08 - TARSAL TUNNEL RELEASE 07/2010 Left foot ALLERGIES Avocado; Banana; Carbinoxamine; Yoselin Seed; Ciprofloxacin; Codeine; Contrast Dye; Fish; Hycodan [Hydrocodone-Homatropine]; Latex; Imtiaz-Synephrine [Phenylephrine Hcl]; Nickel; Nsaids (Non-Steroidal Anti-Inflammatory Drug); Oxycodone; Periactin [Cyproheptadine]; Pneumococcal Vaccine; Shellfish; Zantac [Ranitidine]; Ativan [Lorazepam]; Beef Containing Products; Berino; Eggs [Egg]; Ekg Leads [Adhesive]; Influenza Virus Vaccines; Lisinopril; Milk; Mometasone; Xolair [Omalizumab]; Environmental [Other]; Surgical Tape [Other] MEDICATIONS levalbuterol tartrate HFA (XOPENEX HFA) 45 mcg/actuation inhaler Inhale 1-2 Puffs as instructed every 6 hours as needed for Wheezing/Shortness of Breath. EPINEPHrine (EPIPEN) 0.3 mg/0.3 mL auto-injector Inject 0.3 mL intramuscularly as needed. pregabalin (LYRICA) 150 mg capsule Take 1 capsule by mouth twice daily for 181 days. predniSONE (DELTASONE) 10 mg tablet Take 2.5 tablets by mouth once daily. ergocalciferol, vitamin D2, (VITAMIN D) 50,000 unit capsule Take 1 capsule by mouth once each week. amLODIPine (NORVASC) 10 mg tablet Take 10 mg by mouth once daily. TURMERIC ROOT EXTRACT ORAL Take 1 tablet by mouth twice daily. COMPOUNDED PRESCRIPTION Nocturnal oximetry on room air. nitroglycerin sublingual (NITROQUICK) 0.4 mg SL tablet DISSOLVE 1 TABLET UNDER THE TONGUE NEEDED FOR CHEST PAIN IF NO RELIEF CALL 911 budesonide (PULMICORT) 0.5 mg/2 mL nebulizer solution Use 1 Ampule via nebulizer twice daily. COMPOUNDED PRESCRIPTION Please provide patient with nebulizer machine and supplies.Diagnosis: Severe Asthma. fluticasone-vilanterol (BREO ELLIPTA) 100-25 mcg/dose inhaler Inhale 1 Inhalation as instructed once daily. cetirizine (ZYRTEC) 10 mg tablet Take 10 mg by mouth once daily. pimecrolimus (ELIDEL) 1 % cream Apply twice daily to the hands spironolactone (ALDACTONE) 50 mg tablet Take 1 tablet by mouth twice daily. ondansetron (ZOFRAN) 4 mg tablet Take 1 tablet by mouth every 8 hours as needed. Cholestyramine, Bulk, powd Take 1 scoop by mouth once daily. bumetanide (BUMEX) 0.5 mg tablet Take 1 tablet by mouth once daily. lansoprazole (PREVACID) 30 mg capsule Take 1 capsule by mouth twice daily. Azelastine 0.15 % (205.5 mcg) spry Use 1 Wilberforce in each nostril twice daily. levalbuterol (XOPENEX) 1.25 mg/3 mL nebulizer solution Use 1 Ampule via nebulizer every 4 hours as needed. Inhale over 5-15 minutes fluticasone (FLONASE) 50 mcg/actuation nasal spray 1-2 sprays each side qd lactobacillus rhamnosus (CULTURELLE) 10 billion cell capsule Take 1 capsule by mouth twice daily. famotidine (PEPCID) 20 mg tablet Take 1 tablet by mouth twice daily. diphenhydrAMINE (BENADRYL) 50 mg capsule Take 1 capsule by mouth every 6 hours as needed for Itching/Rash. amoxicillin (POLYMOX, AMOXIL) 250 mg capsule Take 250 mg by mouth once daily. zafirlukast (ACCOLATE) 20 mg tablet Take 1 tablet by mouth twice daily. doxazosin (CARDURA) 2 mg tablet Take 2 mg by mouth once daily. cycloSPORINE Modified 50 mg capsule Take 50 mg by mouth twice daily. ascorbic acid (VITAMIN C) 500 mg tablet Take 1 tablet by mouth once daily. predniSONE (DELTASONE) 20 mg tablet 2 pills daily x 3 days, then 1 pill daily x 4 days. azithromycin (ZITHROMAX) 250 mg tablet Take 1 tablet by mouth once daily. benzonatate (TESSALON PERLE) 100 mg capsule Take 2 capsules by mouth three times daily as needed. crisaborole (EUCRISA) 2 % oint Apply to the hands twice daily Benzonatate 200 mg capsule Take 200 mg by mouth three times daily as needed for Cough. FAMILY HISTORY Problem Relation Age of Onset - Colon Cancer Father dx age 60. Alive at 85. - Hypertension Father Alive at 85. - Cataract Father Alive at 85. - Thyroid Father Alive at 85. - Heart Father [place] at 87 - Diabetes Mother colon polyps. age 72. - Hypertension Mother age 72. - benign brainstem tumor [OTHER] Mother Persistent vegetative state. age 72. - defects Sister infant - Glaucoma Maternal Grandmother - Stroke Maternal Grandfather - Cancer Paternal Grandmother cervical - Colon Cancer Son 38 colon and rectal cancer - Breast Cancer Sister Developed in late 20s. Alive at 52. - Osteoporosis Sister - colon polyps [OTHER] Sister 3 sisters with colon polyps Social History Substance Use Topics - Smoking status: Never Smoker - Smokeless tobacco: Never Used - Alcohol use No Physical Exam Constitutional: She is oriented to person, place, and time and well-developed, well-nourished, and in no distress. HENT: Head: Normocephalic and atraumatic. Right Ear: External ear normal. Left Ear: External ear normal. Nose: Nose normal. Mouth/Throat: Oropharynx is clear and moist. Eyes: Conjunctivae are normal. Neck: No JVD present. Cardiovascular: Normal rate, regular rhythm, normal heart sounds and intact distal pulses. Pulmonary/Chest: Effort normal. No stridor. No respiratory distress. She has wheezes. Abdominal: Soft. Bowel sounds are normal. Lymphadenopathy: She has no cervical adenopathy. Neurological: She is alert and oriented to person, place, and time. Skin: Skin is warm and dry. Psychiatric: Affect normal. Blood pressure 132/86, pulse 106, temperature 36.8 ?C (98.2 ?F), temperature source Left Tympanic, resp. rate 12, weight 92.6 kg (204 lb 3.2 oz), last menstrual period 08/07/2013, SpO2 98 %. ASSESSMENT/PLAN: 1. Bronchitis, not specified as acute or chronic - ICD9: 490, ICD10: J40 Continue Bronchodilators as needed. If symptoms worsen return to the clinic and or contact your Bottled Beverage Inspector. - PREDNISONE 20 MG TABLET Ivette Carmichael PA-C Referring Provider: SELF [200] Allergies As of Date: 05/13/2017 Noted Allergy Reaction AVOCADO 09/10/2014 10 - Anaphylaxis BANANA 09/10/2014 10 - Anaphylaxis CARBINOXAMINE 09/17/2012 10 - Anaphylaxis YOSELIN SEED 08/28/2013 10 - Anaphylaxis CIPROFLOXACIN 04/11/2014 10 - Anaphylaxis CODEINE 01/12/2012 10 - Anaphylaxis CONTRAST DYE 05/17/2013 10 - Anaphylaxis Comments: To MRI and CT FISH 09/07/2014 10 - Anaphylaxis HYCODAN (HYDROCODONE-HOMATROPINE) 09/08/2011 10 - Anaphylaxis Comments: Face and throat swelling LATEX 01/21/2014 10 - Anaphylaxis IMTIAZ-SYNEPHRINE (PHENYLEPHRINE HCL)09/04/2014 10 - Anaphylaxis Comments: 10% eye drop NICKEL 01/07/2014 2 - Rash 4 - Hives 10 - Anaphylaxis NSAIDS (NON-STEROIDAL ANTI-INFLAM*08/16/2010 14 - Other: See Comments Comments: Kidney function drops; reversible kidney damage. OXYCODONE 08/28/2013 10 - Anaphylaxis PERIACTIN (CYPROHEPTADINE) 09/17/2012 10 - Anaphylaxis PNEUMOCOCCAL VACCINE 10/31/2014 10 - Anaphylaxis SHELLFISH 09/07/2014 10 - Anaphylaxis ZANTAC (RANITIDINE) 09/17/2012 10 - Anaphylaxis ATIVAN (LORAZEPAM) 08/28/2013 14 - Other: See Comments Comments: hallucination BEEF CONTAINING PRODUCTS 09/10/2014 2 - Rash CORN 05/03/2011 14 - Other: See Comments Comments: Feels like an asthma attack. EGGS (EGG) 03/08/2011 2 - Rash 11 - Vomiting EKG LEADS (ADHESIVE) 10/22/2012 2 - Rash Comments: Localized,only under the leads INFLUENZA VIRUS VACCINES 10/22/2012 12 - Shortness of Breath LISINOPRIL 04/20/2004 3 - Cough MILK 03/08/2011 2 - Rash 11 - Vomiting MOMETASONE 04/05/2017 10 - Anaphylaxis Comments: Per Dr. Salas she tolerates formoterol (on Breo at home) but is allergic to mometasone. Okayed by him to update. XOLAIR (OMALIZUMAB) 04/19/2012 12 - Shortness of Breath environmental [Other] 06/26/2007 14 - Other: See Comments Comments: Nasal congestion, brings on an asthma attack. surgical tape [Other] 11/10/2009 2 - Rash 7 - Swelling Comments: Oral rash, swelling of eyes, asthma attacks; per pateint report. Date Reviewed: 05/13/2017 Reviewed by: Rojelio Rosario Ma - Fully Assessed Reason for Visit: Cough [28] Nasal Congestion [235] Primary Visit Diagnosis:Bronchitis, not specified as acute or chronic [J40] Order(s):predniSONE (DELTASONE) 20 mg tablet2 pills daily x 3 days, then 1 pill daily x 4 days.Disp: 10 tabletRfl: 0 Prescriptions as of 05/13/2017 Sig: LEVALBUTEROL HFA 45 MCG/ACTUA* Inhale 1-2 Puffs as instructe* EPINEPHRINE 0.3 MG/0.3 ML INJ* Inject 0.3 mL intramuscularly* PREGABALIN 150 MG CAPSULE Take 1 capsule by mouth twice* PREDNISONE 10 MG TABLET Take 2.5 tablets by mouth onc* Patient taking differently: Take 25 mg by mouth once mary ellen* ERGOCALCIFEROL (VITAMIN D2) 5* Take 1 capsule by mouth once * Patient taking differently: Take 50,000 Units by mouth on* AMLODIPINE 10 MG TABLET Take 10 mg by mouth once mary ellen* TURMERIC ROOT EXTRACT ORAL Take 1 tablet by mouth twice * COMPOUNDED PRESCRIPTION Nocturnal oximetry on room ai* NITROGLYCERIN 0.4 MG SUBLINGU* DISSOLVE 1 TABLET UNDER THE T* BUDESONIDE 0.5 MG/2 ML SUSPEN* Use 1 Ampule via nebulizer tw* COMPOUNDED PRESCRIPTION Please provide patient with n* FLUTICASONE 100 MCG-VILANTERO* Inhale 1 Inhalation as instru* CETIRIZINE 10 MG TABLET Take 10 mg by mouth once mary ellen* PIMECROLIMUS 1 % TOPICAL CREAM Apply twice daily to the hands SPIRONOLACTONE 50 MG TABLET Take 1 tablet by mouth twice * ONDANSETRON HCL 4 MG TABLET Take 1 tablet by mouth every * CHOLESTYRAMINE (BULK) POWDER Take 1 scoop by mouth once da* BUMETANIDE 0.5 MG TABLET Take 1 tablet by mouth once d* LANSOPRAZOLE 30 MG CAPSULE,DE* Take 1 capsule by mouth twice* AZELASTINE 0.15 % (205.5 MCG)* Use 1 Wilberforce in each nostril t* LEVALBUTEROL 1.25 MG/3 ML BRENDA* Use 1 Ampule via nebulizer ev* FLUTICASONE 50 MCG/ACTUATION * 1-2 sprays each side qd LACTOBACILLUS RHAMNOSUS GG 10* Take 1 capsule by mouth twice* FAMOTIDINE 20 MG TABLET Take 1 tablet by mouth twice * Patient taking differently: Take 20 mg by mouth twice liam* DIPHENHYDRAMINE 50 MG CAPSULE Take 1 capsule by mouth every* AMOXICILLIN 250 MG CAPSULE Take 250 mg by mouth once liam* ZAFIRLUKAST 20 MG TABLET Take 1 tablet by mouth twice * DOXAZOSIN 2 MG TABLET Take 2 mg by mouth once daily. CYCLOSPORINE MODIFIED 50 MG C* Take 50 mg by mouth twice liam* ASCORBIC ACID (VITAMIN C) 500* Take 1 tablet by mouth once d* PREDNISONE 20 MG TABLET 2 pills daily x 3 days, then * AZITHROMYCIN 250 MG TABLET Take 1 tablet by mouth once d* Patient not taking: Reported on 05/12/2017 BENZONATATE 100 MG CAPSULE Take 2 capsules by mouth thre* CRISABOROLE 2 % TOPICAL OINTM* Apply to the hands twice daily BENZONATATE 200 MG CAPSULE Take 200 mg by mouth three ti* Medication notes this encounter BENZONATATE 100 MG CAPSULE >> Rojelio Rosario Ma 05/13/2017 1:18 PM >> ROJELIO ROSAROI MA May 13, 2017 1:18 PM Therapy complete. Problem List As Of Date 05/13/2017 Noted Resolved JOINT PAIN-ANKLE [M25.579] INVALID FOR*03/20/2014 Edema [R60.9] INVALID FOR*03/28/2016 Priority: I Adrenal nodule (HCC) [E27.9] INVALID FOR* More... Diarrhea [R19.7] INVALID FOR*10/15/2013 Hypertension [I10] INVALID FOR* Priority: E Excessive or frequent menstruation [N92.0] INVALID FOR*07/14/2011 Shortness of breath [R06.02] INVALID FOR*10/15/2013 Palpitations [R00.2] INVALID FOR*03/20/2014 Tachycardia, unspecified [R00.0] INVALID FOR*10/15/2013 More... Open wound site NOS [T14.8XXA] INVALID FOR*07/16/2011 Abdominal pain, right upper quadrant [R10.11] INVALID FOR*07/14/2011 More... Acute gastritis without mention of hemorrhage [*INVALID FOR*10/15/2013 Hematuria [599.7] INVALID FOR*07/14/2011 URGE INCONTINENCE [N39.41] INVALID FOR* FEMALE STRESS INCONTINENCE [N39.3] INVALID FOR* Scar, hypertrophic [L91.0] INVALID FOR*10/15/2013 Ovarian cyst [N83.209] INVALID FOR*07/06/2010 Cyst INVALID FOR*10/15/2013 Other specified pre-operative examination [Z01.*INVALID FOR*07/16/2011 Hirsutism [L68.0] INVALID FOR* Dysphagia [R13.10] INVALID FOR*03/20/2014 GERD (gastroesophageal reflux disease) [K21.9] INVALID FOR* Priority: D More... 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 Obesity (BMI 30.0-34.9) [E66.9] INVALID FOR* More... More... More... More... Idiopathic anaphylaxis [T78.2XXA] INVALID FOR* Priority: A More... Urticaria, idiopathic [L50.1] INVALID FOR*03/28/2016 More... Hyperlipidemia [E78.5] INVALID FOR* Impaired fasting glucose [R73.01] INVALID FOR* Recurrent chest pain [R07.9, G89.29] INVALID FOR*12/09/2014 Multinodular goiter [E04.2] INVALID FOR* More... CKD (chronic kidney disease) stage 3, GFR 30-59*INVALID FOR* Pain in joint, ankle and foot [M25.579] INVALID FOR*12/09/2014 More... More... Steroid-induced hyperglycemia [R73.9, T38.0X5A] INVALID FOR*03/28/2016 Priority: C Moderate persistent asthma without complication*INVALID FOR* Ulcerative colitis without complications (HCC) *INVALID FOR* Anaphylaxis [T78.2XXA] INVALID FOR*03/26/2015 More... Neck pain, bilateral [M54.2] INVALID FOR*03/28/2016 Essential hypertension with goal blood pressure*INVALID FOR*03/28/2016 Chronic nausea [R11.0] INVALID FOR* Lumbar radiculitis [M54.16] INVALID FOR*03/28/2016 Lumbar stenosis [M48.061] INVALID FOR*03/28/2016 Acquired spondylolisthesis [M43.10] INVALID FOR*03/28/2016 Cervical radiculitis [M54.12] INVALID FOR*03/28/2016 Cervical spondylosis with radiculopathy [M47.22]INVALID FOR*03/29/2017 Shoulder impingement [M75.40] INVALID FOR*03/28/2016 Anaphylaxis [T78.2XXA] INVALID FOR*03/28/2016 Tendonitis, tibialis [M76.829] INVALID FOR*05/09/2016 Lumbar stenosis [M48.061] INVALID FOR* Cervical radiculitis [M54.12] INVALID FOR*03/29/2017 Cervical herniated disc [M50.20] INVALID FOR*03/29/2017 Cervical stenosis of spine [M48.02] INVALID FOR* Cervical spondylosis with myelopathy [M47.12] INVALID FOR*03/29/2017 Cervical myelopathy (HCC) [G95.9] INVALID FOR*03/29/2017 Claustrophobia [F40.240] INVALID FOR* Ptosis of eyelid, bilateral [H02.403] INVALID FOR*03/29/2017 More... Lumbar spondylosis [M47.816] INVALID FOR* More... Preop testing [Z01.818] INVALID FOR* More... Anaphylaxis [T78.2XXA] INVALID FOR* Prescriptions ordered this encounter Disp Refills Start End PREDNISONE 20 MG TABLET 10 t* 0 05/13/2017 Si pills daily x 3 days, then 1 pill daily x 4 days. Encounter Status:Closed by IVETTE CARMICHAEL PA-C on 05/13/17 CNOV Observed: 05/12/2017 Status: COMPLETED Source: [place] 4:10 PM [facility] REPOSITORY Office Visit (GASTMN) RALPH JOSHI ([id number]) 1955 F Date Time Provider Department 1/26/18 4:10 PM CELESTINE FERNÁNDEZ GASTMN During your visit today, we recorded the following information about you: Temperature Pulse Blood pressure Weight 98.8 degrees 78/minute 143/75 92.5 kg Height 1.626 m Celestine Fernández MD 05/14/2017 2:51 PM Signed [facility] NOTE NAME: RALPH JOSHI CLINIC NO.: [id number] DATE OF SERVICE: 05/12/2017 OFFICE VISIT SUBJECTIVE: Ralph was seen by me in [place], had a colonoscopy at the [facility]. The records of that are not currently available in [facility]. The patient had been seen by Dr. Lamar prior to that. She has a history of very severe anaphylaxis and is actually on prednisone and cyclosporine to prevent recurrent attacks of anaphylaxis. There is a questionable history of ulcerative colitis, but the last several colonoscopies have not shown any evidence of colitis. She did have a colonoscopy on November 29, 2016, which revealed scope is passed to the cecum with a well-prepped colon. She had diverticulosis and a 1 mm polyp in the rectosigmoid. Surgical pathology on the polyp was hyperplastic. Random colon biopsy showed no diagnostic abnormalities. The patient states that in a year, she has had epigastric discomfort described as a persistent dull feeling. OBJECTIVE: Vital signs show a blood pressure of 143/75, a pulse of 78, a weight of 204. Abdomen is soft, nontender, nondistended. 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 She uses an EpiPen 4-6 times per year. She has ALLERGIES TO BOTH IV AND ORAL CONTRAST. We will plan on doing an abdominal ultrasound to examine for any potential abnormalities in the epigastric region and am additional plan on EGD. She cannot take lidocaine spray and we will try to get that done here in the next few weeks. There is no evidence of ulcerative colitis on her last several colonoscopies, but then again she is on chronic immunosuppression. Once again, thank you very much for allowing me to participate in the care of your patient. I will keep you appraise of all results as they unfold. DICTATED BY: Suzi Jaramillo JOB# [id number] cc: Anisa Caldwell M.D. Celestine Fernández MD 05/12/2017 4:52 PM Signed Please lazarus above Certified Technician Specialist: Transcribed Clinic Note (brenda) ID: [id number] Author: CELESTINE FERNÁNDEZ Signed by CELESTINE FERNÁNDEZ MD on 05/14/2017 at 2:51 PM Document text: [facility] NOTE NAME: RALPH JOSHI CLINIC NO.: [id number] DATE OF SERVICE: 05/12/2017 OFFICE VISIT SUBJECTIVE: Ralph was seen by me in [place], had a colonoscopy at the [facility]. The records of that are not currently available in [facility]. The patient had been seen by Dr. Lamar prior to that. She has a history of very severe anaphylaxis and is actually on prednisone and cyclosporine to prevent recurrent attacks of anaphylaxis. There is a questionable history of ulcerative colitis, but the last several colonoscopies have not shown any evidence of colitis. She did have a colonoscopy on November 29, 2016, which revealed scope is passed to the cecum with a well-prepped colon. She had diverticulosis and a 1 mm polyp in the rectosigmoid. Surgical pathology on the polyp was hyperplastic. Random colon biopsy showed no diagnostic abnormalities. The patient states that in a year, she has had epigastric discomfort described as a persistent dull feeling. OBJECTIVE: Vital signs show a blood pressure of 143/75, a pulse of 78, a weight of 204. Abdomen is soft, nontender, nondistended. 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 She uses an EpiPen 4-6 times per year. She has ALLERGIES TO BOTH IV AND ORAL CONTRAST. We will plan on doing an abdominal ultrasound to examine for any potential abnormalities in the epigastric region and am additional plan on EGD. She cannot take lidocaine spray and we will try to get that done here in the next few weeks. There is no evidence of ulcerative colitis on her last several colonoscopies, but then again she is on chronic immunosuppression. Once again, thank you very much for allowing me to participate in the care of your patient. I will keep you appraise of all results as they unfold. DICTATED BY: Celestine Fernández M.D. Netta JOB# [id number] cc: Anisa Caldwell M.D. Display document [id number] only Referring Provider: SELF [200] Allergies As of Date: 05/12/2017 Noted Allergy Reaction AVOCADO 09/10/2014 10 - Anaphylaxis BANANA 09/10/2014 10 - Anaphylaxis CARBINOXAMINE 09/17/2012 10 - Anaphylaxis YOSELIN SEED 08/28/2013 10 - Anaphylaxis CIPROFLOXACIN 04/11/2014 10 - Anaphylaxis CODEINE 01/12/2012 10 - Anaphylaxis CONTRAST DYE 05/17/2013 10 - Anaphylaxis Comments: To MRI and CT FISH 09/07/2014 10 - Anaphylaxis HYCODAN (HYDROCODONE-HOMATROPINE) 09/08/2011 10 - Anaphylaxis Comments: Face and throat swelling LATEX 01/21/2014 10 - Anaphylaxis IMTIAZ-SYNEPHRINE (PHENYLEPHRINE HCL)09/04/2014 10 - Anaphylaxis Comments: 10% eye drop NICKEL 01/07/2014 2 - Rash 4 - Hives 10 - Anaphylaxis NSAIDS (NON-STEROIDAL ANTI-INFLAM*08/16/2010 14 - Other: See Comments Comments: Kidney function drops; reversible kidney damage. OXYCODONE 08/28/2013 10 - Anaphylaxis PERIACTIN (CYPROHEPTADINE) 09/17/2012 10 - Anaphylaxis PNEUMOCOCCAL VACCINE 10/31/2014 10 - Anaphylaxis SHELLFISH 09/07/2014 10 - Anaphylaxis ZANTAC (RANITIDINE) 09/17/2012 10 - Anaphylaxis ATIVAN (LORAZEPAM) 08/28/2013 14 - Other: See Comments Comments: hallucination BEEF CONTAINING PRODUCTS 09/10/2014 2 - Rash CORN 05/03/2011 14 - Other: See Comments Comments: Feels like an asthma attack. EGGS (EGG) 03/08/2011 2 - Rash 11 - Vomiting EKG LEADS (ADHESIVE) 10/22/2012 2 - Rash Comments: Localized,only under the leads INFLUENZA VIRUS VACCINES 10/22/2012 12 - Shortness of Breath LISINOPRIL 04/20/2004 3 - Cough MILK 03/08/2011 2 - Rash 11 - Vomiting MOMETASONE 04/05/2017 10 - Anaphylaxis Comments: Per Dr. Salas she tolerates formoterol (on Breo at home) but is allergic to mometasone. Okayed by him to update. XOLAIR (OMALIZUMAB) 04/19/2012 12 - Shortness of Breath environmental [Other] 06/26/2007 14 - Other: See Comments Comments: Nasal congestion, brings on an asthma attack. surgical tape [Other] 11/10/2009 2 - Rash 7 - Swelling Comments: Oral rash, swelling of eyes, asthma attacks; per pateint report. Date Reviewed: 05/12/2017 Reviewed by: Jennifer Garcia [employer] Supervisor - Fully Assessed Reason for Visit: Established Patient [175] Cmt: Ulcerative colitis Primary Visit Diagnosis:Anaphylaxis, subsequent encounter [T78.2XXD] Other Visit Diagnosis:Epigastric pain [R10.13] Order(s):US ABDOMEN COMPLETE [[id number]] Order #: [id number] FUTURE EGD [[id number]] Order #: [id number] FUTURE Prescriptions as of 05/12/2017 Sig: LEVALBUTEROL HFA 45 MCG/ACTUA* Inhale 1-2 Puffs as instructe* EPINEPHRINE 0.3 MG/0.3 ML INJ* Inject 0.3 mL intramuscularly* BENZONATATE 100 MG CAPSULE Take 2 capsules by mouth thre* PREGABALIN 150 MG CAPSULE Take 1 capsule by mouth twice* PREDNISONE 10 MG TABLET Take 2.5 tablets by mouth onc* Patient taking differently: Take 25 mg by mouth once mary ellen* ERGOCALCIFEROL (VITAMIN D2) 5* Take 1 capsule by mouth once * Patient taking differently: Take 50,000 Units by mouth on* AMLODIPINE 10 MG TABLET Take 10 mg by mouth once mary ellen* TURMERIC ROOT EXTRACT ORAL Take 1 tablet by mouth twice * COMPOUNDED PRESCRIPTION Nocturnal oximetry on room ai* NITROGLYCERIN 0.4 MG SUBLINGU* DISSOLVE 1 TABLET UNDER THE T* BUDESONIDE 0.5 MG/2 ML SUSPEN* Use 1 Ampule via nebulizer tw* CRISABOROLE 2 % TOPICAL OINTM* Apply to the hands twice daily COMPOUNDED PRESCRIPTION Please provide patient with n* FLUTICASONE 100 MCG-VILANTERO* Inhale 1 Inhalation as instru* CETIRIZINE 10 MG TABLET Take 10 mg by mouth once mary ellen* PIMECROLIMUS 1 % TOPICAL CREAM Apply twice daily to the hands SPIRONOLACTONE 50 MG TABLET Take 1 tablet by mouth twice * ONDANSETRON HCL 4 MG TABLET Take 1 tablet by mouth every * CHOLESTYRAMINE (BULK) POWDER Take 1 scoop by mouth once da* BUMETANIDE 0.5 MG TABLET Take 1 tablet by mouth once d* LANSOPRAZOLE 30 MG CAPSULE,DE* Take 1 capsule by mouth twice* AZELASTINE 0.15 % (205.5 MCG)* Use 1 Wilberforce in each nostril t* LEVALBUTEROL 1.25 MG/3 ML BRENDA* Use 1 Ampule via nebulizer ev* FLUTICASONE 50 MCG/ACTUATION * 1-2 sprays each side qd LACTOBACILLUS RHAMNOSUS GG 10* Take 1 capsule by mouth twice* FAMOTIDINE 20 MG TABLET Take 1 tablet by mouth twice * Patient taking differently: Take 20 mg by mouth twice liam* DIPHENHYDRAMINE 50 MG CAPSULE Take 1 capsule by mouth every* AMOXICILLIN 250 MG CAPSULE Take 250 mg by mouth once liam* ZAFIRLUKAST 20 MG TABLET Take 1 tablet by mouth twice * DOXAZOSIN 2 MG TABLET Take 2 mg by mouth once daily. CYCLOSPORINE MODIFIED 50 MG C* Take 50 mg by mouth twice liam* ASCORBIC ACID (VITAMIN C) 500* Take 1 tablet by mouth once d* AZITHROMYCIN 250 MG TABLET Take 1 tablet by mouth once d* Patient not taking: Reported on 05/12/2017 BENZONATATE 200 MG CAPSULE Take 200 mg by mouth three ti* Problem List As Of Date 05/12/2017 Noted Resolved JOINT PAIN-ANKLE [M25.579] INVALID FOR*03/20/2014 Edema [R60.9] INVALID FOR*03/28/2016 Priority: I Adrenal nodule (HCC) [E27.9] INVALID FOR* More... Diarrhea [R19.7] INVALID FOR*10/15/2013 Hypertension [I10] INVALID FOR* Priority: E Excessive or frequent menstruation [N92.0] INVALID FOR*07/14/2011 Shortness of breath [R06.02] INVALID FOR*10/15/2013 Palpitations [R00.2] INVALID FOR*03/20/2014 Tachycardia, unspecified [R00.0] INVALID FOR*10/15/2013 More... Open wound site NOS [T14.8XXA] INVALID FOR*07/16/2011 Abdominal pain, right upper quadrant [R10.11] INVALID FOR*07/14/2011 More... Acute gastritis without mention of hemorrhage [*INVALID FOR*10/15/2013 Hematuria [599.7] INVALID FOR*07/14/2011 URGE INCONTINENCE [N39.41] INVALID FOR* FEMALE STRESS INCONTINENCE [N39.3] INVALID FOR* Scar, hypertrophic [L91.0] INVALID FOR*10/15/2013 Ovarian cyst [N83.209] INVALID FOR*07/06/2010 Cyst INVALID FOR*10/15/2013 Other specified pre-operative examination [Z01.*INVALID FOR*07/16/2011 Hirsutism [L68.0] INVALID FOR* Dysphagia [R13.10] INVALID FOR*03/20/2014 GERD (gastroesophageal reflux disease) [K21.9] INVALID FOR* Priority: D More... 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 Obesity (BMI 30.0-34.9) [E66.9] INVALID FOR* More... More... More... More... Idiopathic anaphylaxis [T78.2XXA] INVALID FOR* Priority: A More... Urticaria, idiopathic [L50.1] INVALID FOR*03/28/2016 More... Hyperlipidemia [E78.5] INVALID FOR* Impaired fasting glucose [R73.01] INVALID FOR* Recurrent chest pain [R07.9, G89.29] INVALID FOR*12/09/2014 Multinodular goiter [E04.2] INVALID FOR* More... CKD (chronic kidney disease) stage 3, GFR 30-59*INVALID FOR* Pain in joint, ankle and foot [M25.579] INVALID FOR*12/09/2014 More... More... Steroid-induced hyperglycemia [R73.9, T38.0X5A] INVALID FOR*03/28/2016 Priority: C Moderate persistent asthma without complication*INVALID FOR* Ulcerative colitis without complications (HCC) *INVALID FOR* Anaphylaxis [T78.2XXA] INVALID FOR*03/26/2015 More... Neck pain, bilateral [M54.2] INVALID FOR*03/28/2016 Essential hypertension with goal blood pressure*INVALID FOR*03/28/2016 Chronic nausea [R11.0] INVALID FOR* Lumbar radiculitis [M54.16] INVALID FOR*03/28/2016 Lumbar stenosis [M48.061] INVALID FOR*03/28/2016 Acquired spondylolisthesis [M43.10] INVALID FOR*03/28/2016 Cervical radiculitis [M54.12] INVALID FOR*03/28/2016 Cervical spondylosis with radiculopathy [M47.22]INVALID FOR*03/29/2017 Shoulder impingement [M75.40] INVALID FOR*03/28/2016 Anaphylaxis [T78.2XXA] INVALID FOR*03/28/2016 Tendonitis, tibialis [M76.829] INVALID FOR*05/09/2016 Lumbar stenosis [M48.061] INVALID FOR* Cervical radiculitis [M54.12] INVALID FOR*03/29/2017 Cervical herniated disc [M50.20] INVALID FOR*03/29/2017 Cervical stenosis of spine [M48.02] INVALID FOR* Cervical spondylosis with myelopathy [M47.12] INVALID FOR*03/29/2017 Cervical myelopathy (HCC) [G95.9] INVALID FOR*03/29/2017 Claustrophobia [F40.240] INVALID FOR* Ptosis of eyelid, bilateral [H02.403] INVALID FOR*03/29/2017 More... Lumbar spondylosis [M47.816] INVALID FOR* More... Preop testing [Z01.818] INVALID FOR* More... Anaphylaxis [T78.2XXA] INVALID FOR* Other instructions from your clinician: Please lazarus above Encounter Status:Closed by CELESTINE FERNÁNDEZ MD on 05/14/17 PROGRESS Observed: 05/12/2017 Status: COMPLETED Source: [place] 12:00 AM [facility] REPOSITORY HNO ID: [id number] Author: Celestine Fernández Service: Abstract Author Type: Physician Type: Progress Notes Filed: 05/14/2017 2:51 PM Note Text: [facility] NOTE NAME: RALPH JOSHI CLINIC NO.: [id number] DATE OF SERVICE: 05/12/2017 OFFICE VISIT SUBJECTIVE: Ralph was seen by me in [place], had a colonoscopy at the [facility]. The records of that are not currently available in [facility]. The patient had been seen by Dr. Lamar prior to that. She has a history of very severe anaphylaxis and is actually on prednisone and cyclosporine to prevent recurrent attacks of anaphylaxis. There is a questionable history of ulcerative colitis, but the last several colonoscopies have not shown any evidence of colitis. She did have a colonoscopy on November 29, 2016, which revealed scope is passed to the cecum with a well-prepped colon. She had diverticulosis and a 1 mm polyp in the rectosigmoid. Surgical pathology on the polyp was hyperplastic. Random colon biopsy showed no diagnostic abnormalities. The patient states that in a year, she has had epigastric discomfort described as a persistent dull feeling. OBJECTIVE: Vital signs show a blood pressure of 143/75, a pulse of 78, a weight of 204. Abdomen is soft, nontender, nondistended. 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 She uses an EpiPen 4-6 times per year. She has ALLERGIES TO BOTH IV AND ORAL CONTRAST. We will plan on doing an abdominal ultrasound to examine for any potential abnormalities in the epigastric region and am additional plan on EGD. She cannot take lidocaine spray and we will try to get that done here in the next few weeks. There is no evidence of ulcerative colitis on her last several colonoscopies, but then again she is on chronic immunosuppression. Once again, thank you very much for allowing me to participate in the care of your patient. I will keep you appraise of all results as they unfold. DICTATED BY: Suzi Jaramillo/Dean JOB# [id number] cc: Anisa Caldwell M.D. URINALYSIS, ROUTINE Collected: 05/10/2017 Status: F Source: [place] ([place]) 11:42 AM [facility] REPOSITORY Order Comment: How was Urine Obtained? CLEAN CATCH TYPE CODE TESTS RESULT OUT OF RANGE REFERENCE UNITS LAB L400.3000 Yellow COLOR Normal Yellow LAB L400.3050 Clear Normal CLARITY Sl. Cloudy LAB L400.3200 Normal mg/dl Normal GLUCOSE, UR Normal LAB L400.3300 Negative mg/dL Normal BILIRUBIN URINE Negative LAB L400.3400 Negative mg/dl Normal KETONE UR Negative LAB L400.3465 1.002-1.030 Normal SP.GR. DIPSTX 1.015 LAB L400.3550 5.0 - 8.0 pH UR Normal 6.0 LAB L400.3600 Negative mg/dl High PROT 15 DIPSTX LAB L400.3700 Normal mg/dl Normal UROBILI Normal LAB L400.3750 Negative Normal NITRITE UR Negative LAB L400.3780 Negative /ul Normal OCCULT BLOOD-UR Negative LAB L400.3800 Negative /ul High LEUK 25 ESTERASE Performed By: #### L400.2010 #### [facility] [address] [place], [address] CBC W/DIFF, AUTOMATED Collected: 05/10/2017 Status: F Source: [place] 11:42 AM [facility] REPOSITORY TYPE CODE TESTS RESULT OUT OF RANGE REFERENCE UNITS LAB L100.1000 4.4-11.0 K/mm3 Normal WBC 4.4 LAB L100.1200 4.2-5.4 M/mm3 Normal RBC 4.78 LAB L100.1300 12.0-15.0 g/dl Normal HGB 14.2 LAB L100.1400 37-47 % Normal HCT 42.6 LAB L100.1500 81-99 fL Normal MCV 89.1 LAB L100.1600 27.0-32.0 pg Normal MCH 29.7 LAB L100.1700 32-36 g/gl Normal MCHC 33.3 LAB L100.1810 11.6-14.6 % Normal RDW CV 14.2 LAB L100.1820 35.1-43.9 fl High RDW SD 45.6 LAB L100.1900 150-450 K/mm3 Normal PLT 204 LAB L100.2000 6.2-12.0 fl Normal MPV 10.5 LAB L100.2100 47-70 % Normal NEUT% 50.3 LAB L100.2200 19-41 % Normal LY% 32.6 LAB L100.2300 0-10 % High MONO% 11.0 LAB L100.2400 0-5 % Normal EO% 4.8 LAB L100.2500 0-1 % High BASO% 1.1 LAB L100.2550 0.0-0.9 % Normal IM GRAN % 0.200 Result Comment: IG% - Immature Granulocytes (promyelocytes, myelocytes and metamyelocytes) > 1% indicates that a LEFT SHIFT is Present. LAB L100.2620 2.0-7.7 X10 3/uL Normal Absolute Neut 2.2 LAB L100.2720 0.83-4.51 X10 3/ul Normal Absolute Lymph 1.43 Performed By: #### L100.0100 #### [facility] [address] [place], [address] BUN Collected: 05/10/2017 Status: F Source: [place] 11:42 AM [facility] REPOSITORY TYPE CODE TESTS RESULT OUT OF RANGE REFERENCE UNITS LAB L501.1000 7-18 mg/dL High BUN 20 Performed By: #### L501.1000, L501.1105, L501.1800, L501.4100, L501.4405 #### [facility] [address] [place], [address] SERUM CREATININE AND Collected: 05/10/2017 Status: F Source: [place] GFR 11:42 AM [facility] REPOSITORY TYPE CODE TESTS RESULT OUT OF RANGE REFERENCE UNITS LAB L501.1100 0.55-1.02 mg/dL High 1.22 CREAT,SERUM Result Comment: The validity of the calculated GFR AND GFRAA in patients over 70 years has not been determined. Clinical correlation is essential. LAB L501.1110 >60 mL/min Low EST GFR 48 Result Comment: Non- GFR Calc LAB L501.1115 >60 mL/min Low EST GFR - AA 58 Result Comment: GFR Calc Performed By: #### L501.1000, L501.1105, L501.1800, L501.4100, L501.4405 #### [facility] [address] [place], [address] ALBUMIN, SERUM Collected: 05/10/2017 Status: F Source: [place] 11:42 AM [facility] REPOSITORY TYPE CODE TESTS RESULT OUT OF RANGE REFERENCE UNITS LAB L501.1800 3.4-5.0 g/dL Normal ALB 4.1 Result Comment: Please note revised Albumin AND Globulin reference range effective 2017. Performed By: #### L501.1000, L501.1105, L501.1800, L501.4100, L501.4405 #### [facility] [address] [place], [address] AST(SGOT) Collected: 05/10/2017 Status: F Source: [place] 11:42 AM [facility] REPOSITORY TYPE CODE TESTS RESULT OUT OF RANGE REFERENCE UNITS LAB L501.4100 15-37 U/L Normal AST 16 Performed By: #### L501.1000, L501.1105, L501.1800, L501.4100, L501.4405 #### [facility] [address] [place], [address] ALANINE AMINOTRANSFERAS Collected: 05/10/2017 Status: F Source: [place] (SGPT) 11:42 AM [facility] REPOSITORY TYPE CODE TESTS RESULT OUT OF RANGE REFERENCE UNITS LAB L501.4405 12-78 U/L Normal ALT 33 Performed By: #### L501.1000, L501.1105, L501.1800, L501.4100, L501.4405 #### [facility] [address] [place], [address] CYCLOSPORINE, BLOOD Collected: 05/10/2017 Status: F Source: [place] 11:42 AM [facility] REPOSITORY TYPE CODE TESTS RESULT OUT OF REFERENCE UNITS RANGE LAB L3400.3100 Cyclosporine Normal Result Comment: None Detected Therapeutic: Renal Transplant 100 - 250 Liver Transplant 100 - 400 Cardiac Transplant 100 - 400 Bone Marrow 200 - 300 Detection Limit = 25 Assay performed by Liquid Chromatography Tandem Mass Spectrometry (LC-MS/MS) If preferred testing methodology for Cyclosporine is Liquid Chromatography Tandem Mass Spectrometry (LC-MS/MS) please use test code [id number]. For testing performed by Immunoassay, please use test code [id number]. Performed at: [address] [id number] High [employer] Music Director: Mik Alonso MD, Phone: [phone] Performed By: #### L3400.3090 #### [facility] (refer to report for specific site) refer to report for address and phone number Observed: 05/04/2017 Status: F Source: [place] CULTURE, URINE 1:09 PM [facility] REPOSITORY ADD ON URINE CULTURE ORDER REC. 05/04/17 BY FAX. Urine Culture ORGANISM 1: Presumptive E. coli [place] Count >100,000 Presumptive E. coli: REACTION Amoxacillin/Clavulanic Acid $ 4 S Ampicillin $ >=32 R Ampicillin/Sulbactam $ 16 I Cefazolin $ <=4 S Cefepime $ <=1 S Ceftriaxone $ <=1 S Ciprofloxacin $ 0.5 S ESBL - Ertapenim $$$ <=0.5 S Gentamicin $ <=1 S Imipenem *NF <=0.25 S Levofloxacin $ 1 S Nitrofurantoin $ <=16 S Piperacillin/Tazobactam $$ <=4 S Tobramycin $ <=1 S Trimethoprim/Sulfametho $ >=320 R (NF) indicates non-formulary drug at [facility]. Approval by Infectious Disease Specialist required before non-formulary drugs may be ordered and/or dispensed. Performed By: #### M100.0650 #### [facility] [address] [place], [address] CBC W/DIFF, AUTOMATED Collected: 05/03/2017 Status: F Source: [place] 1:09 PM [facility] REPOSITORY TYPE CODE TESTS RESULT OUT OF RANGE REFERENCE UNITS LAB L100.1000 4.4-11.0 K/mm3 Normal WBC 7.5 LAB L100.1200 4.2-5.4 M/mm3 Normal RBC 4.87 LAB L100.1300 12.0-15.0 g/dl Normal HGB 14.3 LAB L100.1400 37-47 % Normal HCT 43.8 LAB L100.1500 81-99 fL Normal MCV 89.9 LAB L100.1600 27.0-32.0 pg Normal MCH 29.4 LAB L100.1700 32-36 g/gl Normal MCHC 32.6 LAB L100.1810 11.6-14.6 % Normal RDW CV 14.0 LAB L100.1820 35.1-43.9 fl High RDW SD 46.1 LAB L100.1900 150-450 K/mm3 Normal PLT 250 LAB L100.2000 6.2-12.0 fl Normal MPV 11.1 LAB L100.2100 47-70 % High NEUT% 75.3 LAB L100.2200 19-41 % Low LY% 13.9 LAB L100.2300 0-10 % Normal MONO% 7.8 LAB L100.2400 0-5 % Normal EO% 1.7 LAB L100.2500 0-1 % Normal BASO% 0.9 LAB L100.2550 0.0-0.9 % Normal IM GRAN % 0.400 Result Comment: IG% - Immature Granulocytes (promyelocytes, myelocytes and metamyelocytes) > 1% indicates that a LEFT SHIFT is Present. LAB L100.2620 2.0-7.7 X10 3/uL Normal Absolute Neut 5.6 LAB L100.2720 0.83-4.51 X10 3/ul Normal Absolute Lymph 1.04 Performed By: #### L100.0100 #### [facility] [address] [place], [place], [address] URINALYSIS, ROUTINE Collected: 05/03/2017 Status: F Source: [place] (DIPSTICK) 1:09 PM [facility] REPOSITORY Order Comment: How was Urine Obtained? CLEAN CATCH TYPE CODE TESTS RESULT OUT OF RANGE REFERENCE UNITS LAB L400.3000 Yellow COLOR Normal Straw LAB L400.3050 Clear Normal CLARITY Clear LAB L400.3200 Normal mg/dl Normal GLUCOSE, UR Normal LAB L400.3300 Negative mg/dL Normal BILIRUBIN URINE Negative LAB L400.3400 Negative mg/dl Normal KETONE UR Negative LAB L400.3465 1.002-1.030 Normal SP.GR. DIPSTX 1.005 LAB L400.3550 5.0 - 8.0 pH UR Normal 5.0 LAB L400.3600 Negative mg/dl PROT Normal DIPSTX Negative LAB L400.3700 Normal mg/dl Normal UROBILI Normal LAB L400.3750 Negative Normal NITRITE UR Negative LAB L400.3780 Negative /ul High 10 OCCULT BLOOD-UR LAB L400.3800 Negative /ul High LEUK ESTERASE 100 Performed By: #### L400.2011 #### [facility] [address] [place], [address] BUN Collected: 05/03/2017 Status: F Source: [place] 1:09 PM [facility] REPOSITORY TYPE CODE TESTS RESULT OUT OF RANGE REFERENCE UNITS LAB L501.1000 7-18 mg/dL High BUN 20 Performed By: #### L501.1000, L501.1105, L501.1800, L501.4100, L501.4405 #### [facility] [address] [place], [address] SERUM CREATININE AND Collected: 05/03/2017 Status: F Source: [place] GFR 1:09 PM [facility] REPOSITORY TYPE CODE TESTS RESULT OUT OF RANGE REFERENCE UNITS LAB L501.1100 0.55-1.02 mg/dL High 1.20 CREAT,SERUM Result Comment: The validity of the calculated GFR AND GFRAA in patients over 70 years has not been determined. Clinical correlation is essential. LAB L501.1110 >60 mL/min Low EST GFR 49 Result Comment: Non- GFR Calc LAB L501.1115 >60 mL/min Low EST GFR - AA 59 Result Comment: GFR Calc Performed By: #### L501.1000, L501.1105, L501.1800, L501.4100, L501.4405 #### [facility] [address] [place], [address] ALBUMIN, SERUM Collected: 05/03/2017 Status: F Source: [place] 1:09 PM [facility] REPOSITORY TYPE CODE TESTS RESULT OUT OF RANGE REFERENCE UNITS LAB L501.1800 3.4-5.0 g/dL Normal ALB 4.0 Result Comment: Please note revised Albumin AND Globulin reference range effective 2017. Performed By: #### L501.1000, L501.1105, L501.1800, L501.4100, L501.4405 #### [facility] [address] [place], [address] AST(SGOT) Collected: 05/03/2017 Status: F Source: [place] 1:09 PM [facility] REPOSITORY TYPE CODE TESTS RESULT OUT OF RANGE REFERENCE UNITS LAB L501.4100 15-37 U/L Normal AST 16 Performed By: #### L501.1000, L501.1105, L501.1800, L501.4100, L501.4405 #### [facility] [address] [facility] [place], [address] ALANINE AMINOTRANSFERAS Collected: 05/03/2017 Status: F Source: [place] (SGPT) 1:09 PM [facility] REPOSITORY TYPE CODE TESTS RESULT OUT OF RANGE REFERENCE UNITS LAB L501.4405 12-78 U/L Normal ALT 38 Performed By: #### L501.1000, L501.1105, L501.1800, L501.4100, L501.4405 #### [facility] [address] [facility] [place], [address] CYCLOSPORINE, BLOOD Collected: 05/03/2017 Status: F Source: [place] 1:09 PM [facility] REPOSITORY TYPE CODE TESTS RESULT OUT OF REFERENCE UNITS RANGE LAB L3400.3100 Cyclosporine Normal Result Comment: None Detected Therapeutic: Renal Transplant 100 - 250 Liver Transplant 100 - 400 Cardiac Transplant 100 - 400 Bone Marrow 200 - 300 Detection Limit = 25 Assay performed by Liquid Chromatography Tandem Mass Spectrometry (LC-MS/MS) If preferred testing methodology for Cyclosporine is Liquid Chromatography Tandem Mass Spectrometry (LC-MS/MS) please use test code [id number]. For testing performed by Immunoassay, please use test code [id number]. Performed at: - [facility] [id number] High School Music Director: Mik Alonso MD, Phone: [phone] Performed By: #### L3400.3090 #### [facility] (refer to report for specific site) refer to report for address and phone number SURGERY VISIT REPORT Observed: 04/27/2017 Status: F Source: [place] 3:18 PM [facility] REPOSITORY [facility] [address] [place] [address] OFFICE VISIT Date of Service: 04/27/17 MR#: [id number] Acct: [id number] Name: RALPH JOSHI Rep #: [id number] : 1955 Provider: Martin Belcher MD Age/Sex: 62/F [place] [facility] Status: Signed Intake Vital Signs04/27/17 Height 5 ft 4 in 04/27/17 Weight: 198 lb 7 oz 04/27/17 Body Mass Index (BMI) 34.0 04/27/17 Blood Pressure 139/85 Intake Visit Reasons: epigastric pain and dyspepsia, need egd Chief Complaint: epigastric pain Business Leader Required: No Is patient in pain?: No Allergies egg Allergy (Severe, Verified 04/27/17 10:32) Anaphylaxis adhesive Allergy (Verified 04/27/17 10:32) Anaphylaxis avocado Allergy (Verified 04/27/17 10:32) Rash banana Allergy (Verified 04/27/17 10:32) Rash carbinoxamine Allergy (Verified 04/27/17 10:32) Anaphylaxis ciprofloxacin [From Cipro] Allergy (Verified 04/27/17 10:32) Anaphylaxis ciprofloxacin HCl [From Cipro] Allergy (Verified 04/27/17 10:32) Anaphylaxis codeine Allergy (Verified 04/27/17 10:32) Anaphylaxis corn Allergy (Verified 04/27/17 10:32) Anaphylaxis cyproheptadine HCl [From Periactin] Allergy (Verified 04/27/17 10:32) Anaphylaxis fish derived Allergy (Verified 04/27/17 10:32) Anaphylaxis Gadolinium-MRI Contrast Medium [MRI] Allergy (Verified 04/27/17 10:32) Anaphylaxis hydrocodone Allergy (Verified 04/27/17 10:32) Anaphylaxis Iodinated Contrast- Oral and IV Dye [CT] Allergy (Verified 04/27/17 10:32) Anaphylaxis latex Allergy (Verified 04/27/17 10:32) Anaphylaxis lisinopril Allergy (Verified 04/27/17 10:32) Rash lorazepam [From Ativan] Allergy (Verified 04/27/17 10:32) Other milk Allergy (Verified 04/27/17 10:32) Anaphylaxis nickel Allergy (Verified 04/27/17 10:32) Hives NSAIDS (Non-Steroidal Anti-Inflamma Allergy (Verified 04/27/17 10:32) Other omalizumab [From Xolair] Allergy (Verified 04/27/17 10:32) Anaphylaxis oxycodone Allergy (Verified 04/27/17 10:32) Anaphylaxis ranitidine HCl [From Zantac] Allergy (Verified 04/27/17 10:32) Anaphylaxis shellfish derived Allergy (Verified 04/27/17 10:32) Anaphylaxis ALLERGY SHOT Allergy (Uncoded 01/21/16 14:10) Anaphylaxis YOSELIN SEEDS Allergy (Uncoded 01/21/16 14:10) Anaphylaxis FLU VACCINE Allergy (Uncoded 01/21/16 14:10) Anaphylaxis Medications Albuterol Tablet [Vospire ER] 4 mg PO TID PRN PRN 05/12/14 [History Confirmed 04/27/17] Amlodipine [Norvasc] 5 mg PO DAILY 05/12/14 [History Confirmed 04/27/17] Astepro 2 spry NASAL BID PRN PRN 05/12/14 [History Confirmed 04/27/17] Budesonide/Formoterol 160/4.5 [Symbicort 160/4.5 Mcg Inhaler (SP)] 2 puff INHALATION BID 05/12/14 [History Confirmed 04/27/17] Bumetanide [Bumex] 0.5 mg PO BID 05/12/14 [History Confirmed 04/27/17] Cetirizine HCl [Zyrtec] 10 mg PO BID 05/12/14 [History Confirmed 04/27/17] Cromolyn Sodium 20 mg IH TID 05/12/14 [History Confirmed 04/27/17] Cyclosporine, Modified [Cyclosporine Modified] 50 mg PO BID 05/12/14 [History Confirmed 04/27/17] Doxazosin Mesylate [Cardura] 2 mg PO DAILY 05/12/14 [History Confirmed 04/27/17] Epinephrine [Epi Pen] 0.3 mg IM X1 PRN 05/12/14 [History Confirmed 04/27/17] Fluticasone 0.05% [Flonase Nasal Wilberforce] 1 spray NASAL DAILY 05/12/14 [History Confirmed 04/27/17] Lansoprazole [Prevacid] 30 mg PO BID 05/12/14 [History Confirmed 04/27/17] Levalbuterol HCl [Xopenex Aerosols] 1.25 mg INHALATION Q6H PRN PRN 05/12/14 [History Confirmed 04/27/17] Nitroglycerin [Nitrostat] 0.4 mg SUBLINGUAL Q5M PRN 05/12/14 [History Confirmed 04/27/17] Pregabalin [Lyrica] 150 mg PO BID 05/12/14 [History Confirmed 04/27/17] Spironolactone [Aldactone] 50 mg PO DAILY 05/12/14 [History Confirmed 04/27/17] Ascorbic Acid [Vitamin C] 500 mg PO DAILY@0800 08/04/14 [History Confirmed 04/27/17] Ergocalciferol [Vitamin D] 50,000 unit PO Q7D 08/04/14 [History Confirmed 04/27/17] Famotidine [Pepcid] 20 mg PO BID #28 tab 12/15/14 [Rx Confirmed 04/27/17] Amoxicillin 250 mg PO DAILY 01/21/16 [History Confirmed 01/21/16] DiphenhydrAMINE [Benadryl] 50 mg PO TID PRN PRN #1 cap 01/23/16 [Rx Confirmed 04/27/17] PredniSONE [Prednisone] 2 tab PO DAILY@0800 #6 tab 01/23/16 [Rx Confirmed 04/27/17] PredniSONE [Prednisone] 32 mg PO DAILY #0 01/23/16 [Rx Confirmed 04/27/17] cholestyramine (with sugar) 4 gram oral powder 4 g PO BID ea 04/27/17 [History Confirmed 04/27/17] crisaborole 2 % topical ointment 1 applic TOPICAL BID 04/27/17 [History Confirmed 04/27/17] ondansetron 4 mg oral soluble film 4 mg PO Q6H PRN 04/27/17 [History Confirmed 04/27/17] turmeric root extract 538 mg capsule 538 mg PO BID cap 04/27/17 [History Confirmed 04/27/17] PFSH Medical History THNOY (obstructive sleep apnea) (Chronic) Adrenal tumor (Chronic) Hyperlipidemia (Chronic) CKD (chronic kidney disease) (Chronic) Chronic back pain (Chronic) Idiopathic anaphylaxis (Chronic) Allergic rhinitis (Chronic) Hypertension (Chronic) Asthma (Chronic) Obesity (BMI 30.0-34.9) (Chronic) Syncope (Acute) Surgical History History of esophagogastroduodenoscopy (EGD) (Acute) S/P abdominal hysterectomy and left salpingo-oophorectomy (Acute) S/P cholecystectomy (Acute) S/P colonoscopy (Acute) Family History Father Colon cancer Diabetes Heart disease Hypertension Thyroid disorder Mother Cancer brain Diabetes Hypertension Social History Smoking Status: Never smoker alcohol intake: never substance use type: does not use HPI HPI HPI: RALPH JOSHI, is a 62 F who presents to the office today for for surgical consultation regarding epigastric pain. This was a abbreviated interview. 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 She states that she has been attempted to be treated at the [facility] previously but was reviewed by anesthesia services and was declined care. I did explain this to her. In brief review of the information presented it would seem reasonable for her to have her care provided at a tertiary center. We elected to cut the appointment short prior to initiating it. The patient has had care at [facility] and will pursue that as an option. I very much appreciate the opportunity to have assisted with her care. Martin Belcher M.D., F.A.C.S. ROS General General: Yes weight change and fatigue; no appetite, colon cancer, breast cancer or weakness HEENT HEENT: Yes difficulty swallowing, eye injury and swollen glands; no eye surgery or hoarseness Endo Endocrine: No thyroid disease, diabetes mellitus, thyroid cancer, Hair loss, heat intolerance or cold intolerance Skin Skin: Yes rash and changing moles Breast Breast: No left breast lump, right breast lump, nipple discharge, breast pain, abnormal mammogram, abnormal US or breast enlargement Musc Musculoskeletal: Yes back problems and arthritis; no rheumatoid arthritis, gout or joint pain Cardio Cardiovascular: Yes high blood pressure; no murmur, pacemaker, heart disease, atrial fibrillation, heart attack, heart stent, palpitations, shortness of breat with exertion or chest pain Psych Psychiatric: No depression, anxiety or hearing voices Resp Respiratory: Yes shortness of breath, Yes sleep apnea, Yes cough, No COPD, Yes asthma, No emphysema, No wheezing Gastro Gastrointestinal: Yes abdominal pain, Yes nausea or vomiting, Yes diarrhea, No constipation, Yes blood in stool, No acid reflux, Yes hemorrhoids, Yes ulcers, Yes gallbladder problem, Yes black,tarry stools Casa Hematologic: No blood thinners, No blood disorders, No bleeding, No anemia, No blood clots Neuro Neurologic: No system reviewed and no additional complaints, except as docu, No as per HPI, No abnormal walking, No abnormal hearing, No abnormal movements, No abnormal speech, No behavioral changes, No burning sensations, No confusion, No seizure-like activity, No unsteadiness, No dizziness, No localized weakness, No frequent falls, No headache(s), No lack of coordination, No loss of vision, No memory loss, No numbness, No other visual disturbances, No radiating pain, No restless legs, No sensory deficit, No fainting, No tingling, No tremor(s), No weakness, No other Exam Chest Breast Palpation: No nipple discharge Cardio Heart Sounds: no murmurs Assessment AND Plan 1. Epigastric pain R10.13 04/27/17 1518 <Electronically signed by Martin Belcher MD> Date Martin Belcher MD Cosigner Signature: Date (if applicable) CC: SERA CROSS PROGRESS Observed: 04/20/2017 Status: COMPLETED Source: [place] 3:40 PM [facility] REPOSITORY O ID: [id number] Author: Lopez Jeffers (Criminal [employer]igator [employer]) Bubba Service: (none) Author Type: Nurse Practitioner Type: Progress Notes Filed: 04/20/2017 3:42 PM Note Text: Ralph Joshi is a 62 year old female presenting for Hospital f/u For allergic eye swelling due to possible hair dye Does not have epi pen that's not at home Seen in urgent care 04/19 for URI taking tessalon Zpak and using her inhalers Feeling well today no complaints PAST MEDICAL HISTORY Diagnosis Date - Abdominal pain, other specified site - ACNE NEC 01/21/2008 - Actinic Keratosis (Premalignant AK) 06/05/2011 - ACUTE GASTRITIS W/O HEMORRHAGE 04/26/2007 - Allergic rhinitis 04/23/2012 - Anaphylactic reaction ideopathic - Benign tumor of adrenal gland - Biliary dyskinesia 10/29/2009 - Cervical herniated disc 10/20/2016 - Cervical myelopathy (HCC) 10/25/2016 - Cervical radiculitis 10/20/2016 - Cervical spondylosis with radiculopathy 11/17/2015 - JAIN ANGIOMA///NEVUS, NON-NEOPLASTIC 05/28/2007 - CKD (chronic kidney disease) stage 3, GFR 30-59 ml/min 04/29/2013 - Diaphragmatic hernia without mention of obstruction or gangrene 05/25/2011 - Diverticulosis of colon (without mention of hemorrhage) - Edema 07/07/2004 - Epigastric pain - GERD (gastroesophageal reflux disease) - HTN (hypertension) 2002 controlled on Diovan - Hyperlipidemia 10/15/2013 - IRON DEFIC ANEMIA NOS 04/26/2007 - Moderate persistent asthma without complication 02/18/2015 - Ovarian cyst Benign ovarian cyst, S/P laparoscopic LSO - Ptosis of eyelid, bilateral 12/23/2016 Added automatically from request for surgery [id number] - Shoulder impingement 11/17/2015 - Sleep apnea intollerant to CPAP because allergic to material on mask - Steroid-induced hyperglycemia 09/06/2014 - TACHYCARDIA NOS 01/09/2006 - Tarsal tunnel syndrome 12/23/2009 - Tear of lateral meniscus of knee 02/21/2014 - Ulcerative colitis, unspecified - UTERINE LEIOMYOMA NOS 12/23/2005 - VIRAL WARTS NOS 05/09/2006 - Vocal cord dysfunction ACTIVE PROBLEM LIST Adrenal Nodule (Hcc) Hypertension Urge Incontinence Female Stress Incontinence Hirsutism Gerd (Gastroesophageal Reflux Disease) THONY (obstructive sleep apnea) Obesity (Bmi 30.0-34.9) Idiopathic anaphylaxis Hyperlipidemia Impaired Fasting Glucose Multinodular Goiter CKD (chronic kidney disease) stage 3, GFR 30-59 ml/min (HCC) Moderate Persistent Asthma Without Complication Ulcerative Colitis Without Complications (Hcc) Chronic Nausea Lumbar Stenosis Cervical Stenosis of Spine Claustrophobia Lumbar Spondylosis Preop Testing Anaphylaxis Current Outpatient Prescriptions: EPINEPHrine (EPIPEN) 0.3 mg/0.3 mL auto-injector Inject 0.3 mL intramuscularly as needed. Disp: 2 Each Rfl: 1 azithromycin (ZITHROMAX) 250 mg tablet Take 1 tablet by mouth once daily. Disp: 1 Package Rfl: 0 benzonatate (TESSALON PERLE) 100 mg capsule Take 2 capsules by mouth three times daily as needed. Disp: 30 capsule Rfl: 0 pregabalin (LYRICA) 150 mg capsule Take 1 capsule by mouth twice daily for 181 days. Disp: 180 capsule Rfl: 1 predniSONE (DELTASONE) 10 mg tablet Take 2.5 tablets by mouth once daily. (Patient taking differently: Take 25 mg by mouth once daily. Total 25 mg daily ) Disp: Rfl: 0 ergocalciferol, vitamin D2, (VITAMIN D) 50,000 unit capsule Take 1 capsule by mouth once each week. (Patient taking differently: Take 50,000 Units by mouth once each week. Every Monday ) Disp: 12 capsule Rfl: 4 amLODIPine (NORVASC) 10 mg tablet Take 10 mg by mouth once daily. Disp: Rfl: TURMERIC ROOT EXTRACT ORAL Take 1 tablet by mouth twice daily. Disp: Rfl: COMPOUNDED PRESCRIPTION Nocturnal oximetry on room air. Disp: 1 Each Rfl: 0 nitroglycerin sublingual (NITROQUICK) 0.4 mg SL tablet DISSOLVE 1 TABLET UNDER THE TONGUE NEEDED FOR CHEST PAIN IF NO RELIEF CALL 911 Disp: 25 Bottle of 25 Rfl: 3 budesonide (PULMICORT) 0.5 mg/2 mL nebulizer solution Use 1 Ampule via nebulizer twice daily. Disp: 60 Ampule Rfl: 6 crisaborole (EUCRISA) 2 % oint Apply to the hands twice daily Disp: 60 g Rfl: 3 COMPOUNDED PRESCRIPTION Please provide patient with nebulizer machine and supplies.Diagnosis: Severe Asthma. Disp: 1 Each Rfl: 0 fluticasone-vilanterol (BREO ELLIPTA) 100-25 mcg/dose inhaler Inhale 1 Inhalation as instructed once daily. Disp: Rfl: cetirizine (ZYRTEC) 10 mg tablet Take 10 mg by mouth once daily. Disp: Rfl: pimecrolimus (ELIDEL) 1 % cream Apply twice daily to the hands Disp: 30 Tube Rfl: 3 spironolactone (ALDACTONE) 50 mg tablet Take 1 tablet by mouth twice daily. Disp: 180 tablet Rfl: 3 ondansetron (ZOFRAN) 4 mg tablet Take 1 tablet by mouth every 8 hours as needed. Disp: 30 tablet Rfl: 3 Cholestyramine, Bulk, powd Take 1 scoop by mouth once daily. Disp: 1134 g Rfl: 4 bumetanide (BUMEX) 0.5 mg tablet Take 1 tablet by mouth once daily. Disp: 90 tablet Rfl: 4 lansoprazole (PREVACID) 30 mg capsule Take 1 capsule by mouth twice daily. Disp: 180 capsule Rfl: 4 Azelastine 0.15 % (205.5 mcg) spry Use 1 Wilberforce in each nostril twice daily. Disp: 3 Bottle Rfl: 3 levalbuterol tartrate HFA (XOPENEX HFA) 45 mcg/actuation inhaler Inhale 1-2 Puffs as instructed every 6 hours as needed for Wheezing/Shortness of Breath. Disp: 3 Inhaler Rfl: 3 levalbuterol (XOPENEX) 1.25 mg/3 mL nebulizer solution Use 1 Ampule via nebulizer every 4 hours as needed. Inhale over 5-15 minutes Disp: 300 Ampule Rfl: 3 fluticasone (FLONASE) 50 mcg/actuation nasal spray 1-2 sprays each side qd Disp: 3 Bottle Rfl: 3 Benzonatate 200 mg capsule Take 200 mg by mouth three times daily as needed for Cough. Disp: 30 capsule Rfl: 1 lactobacillus rhamnosus (CULTURELLE) 10 billion cell capsule Take 1 capsule by mouth twice daily. Disp: Rfl: famotidine (PEPCID) 20 mg tablet Take 1 tablet by mouth twice daily. (Patient taking differently: Take 20 mg by mouth twice daily. as needed ) Disp: 14 tablet Rfl: 0 diphenhydrAMINE (BENADRYL) 50 mg capsule Take 1 capsule by mouth every 6 hours as needed for Itching/Rash. Disp: 30 capsule Rfl: 0 amoxicillin (POLYMOX, AMOXIL) 250 mg capsule Take 250 mg by mouth once daily. Disp: Rfl: zafirlukast (ACCOLATE) 20 mg tablet Take 1 tablet by mouth twice daily. Disp: 60 tablet Rfl: 11 doxazosin (CARDURA) 2 mg tablet Take 2 mg by mouth once daily. Disp: Rfl: cycloSPORINE Modified 50 mg capsule Take 50 mg by mouth twice daily. Disp: Rfl: ascorbic acid (VITAMIN C) 500 mg tablet Take 1 tablet by mouth once daily. Disp: 90 tablet Rfl: 0 No current facility-administered medications for this visit. ROS: Negative except for as listed above GENERAL: Denies fever, chills, night sweats, or changes in weight. EXAM: Blood pressure 138/88, pulse 80, temperature 38 ?C (100.4 ?F), temperature source Tympanic, weight 91.6 kg (202 lb), last menstrual period 08/07/2013. APPEARANCE Well appearing, alert, in no acute distress, well-hydrated, well nourished. EYES PERRLA, conjunctiva and sclera normal. EARS External ears normal, canals clear NOSE/SINUS Nares normal. Septum midline. Mucosa normal. No drainage or sinus tenderness. MOUTH No oral / pharyngel lesions/ exudate THROAT normal, no erythema NECK Supple, no adenopathy; thyroid symmetric, normal size, no bruits HEART RRR with normal S1 and S2, no murmurs, no gallops, no JVD appreciated LUNG clear to auscultation EXTREMITIES Normal, No deformities, No skin discoloration, No edema and Normal pulses bilaterally. ASSESSMENT/PLAN See PCP routinely Plan reviewed in detail and Ralph Joshi verbalizes understanding. Call or return if no improvement or symptoms worsen (T78.40XD) Allergic disorder, subsequent encounter (primary encounter diagnosis) (E66.9) Obesity (BMI 30.0-34.9) Plan: PARKING FOR HANDICAPPED (J45.20) Intermittent asthma, unspecified asthma severity, unspecified whether complicated Plan: PARKING FOR HANDICAPPED Red flag symptoms reviewed. Lopez Mac CNP CNOV Observed: 04/20/2017 Status: COMPLETED Source: [place] 2:40 PM [facility] REPOSITORY Office Visit (INTMIN) RALPH JOSHI ([id number]) 1955 F Date Time Provider Department 04/20/17 2:40 PM LOPEZ MAC (TISHA) INTMIN During your visit today, we recorded the following information about you: Temperature Pulse Blood pressure Weight 100.4 degrees 80/minute 138/88 91.6 kg Lopez Mac CNP 04/20/2017 3:42 PM Signed Ralph Joshi is a 62 year old female presenting for Hospital f/u For allergic eye swelling due to possible hair dye Does not have epi pen that's not at home Seen in urgent care 04/19 for URI taking tessalon Zpak and using her inhalers Feeling well today no complaints PAST MEDICAL HISTORY Diagnosis Date - Abdominal pain, other specified site - ACNE NEC 01/21/2008 - Actinic Keratosis (Premalignant AK) 06/05/2011 - ACUTE GASTRITIS W/O HEMORRHAGE 04/26/2007 - Allergic rhinitis 04/23/2012 - Anaphylactic reaction ideopathic - Benign tumor of adrenal gland - Biliary dyskinesia 10/29/2009 - Cervical herniated disc 10/20/2016 - Cervical myelopathy (HCC) 10/25/2016 - Cervical radiculitis 10/20/2016 - Cervical spondylosis with radiculopathy 11/17/2015 - JAIN ANGIOMA///NEVUS, NON-NEOPLASTIC 05/28/2007 - CKD (chronic kidney disease) stage 3, GFR 30-59 ml/min 04/29/2013 - Diaphragmatic hernia without mention of obstruction or gangrene 05/25/2011 - Diverticulosis of colon (without mention of hemorrhage) - Edema 07/07/2004 - Epigastric pain - GERD (gastroesophageal reflux disease) - HTN (hypertension) 2002 controlled on Diovan - Hyperlipidemia 10/15/2013 - IRON DEFIC ANEMIA NOS 04/26/2007 - Moderate persistent asthma without complication 02/18/2015 - Ovarian cyst Benign ovarian cyst, S/P laparoscopic LSO - Ptosis of eyelid, bilateral 12/23/2016 Added automatically from request for surgery [id number] - Shoulder impingement 11/17/2015 - Sleep apnea intollerant to CPAP because allergic to material on mask - Steroid-induced hyperglycemia 09/06/2014 - TACHYCARDIA NOS 01/09/2006 - Tarsal tunnel syndrome 12/23/2009 - Tear of lateral meniscus of knee 02/21/2014 - Ulcerative colitis, unspecified - UTERINE LEIOMYOMA NOS 12/23/2005 - VIRAL WARTS NOS 05/09/2006 - Vocal cord dysfunction ACTIVE PROBLEM LIST Adrenal Nodule (Hcc) Hypertension Urge Incontinence Female Stress Incontinence Hirsutism Gerd (Gastroesophageal Reflux Disease) THONY (obstructive sleep apnea) Obesity (Bmi 30.0-34.9) Idiopathic anaphylaxis Hyperlipidemia Impaired Fasting Glucose Multinodular Goiter CKD (chronic kidney disease) stage 3, GFR 30-59 ml/min (HCC) Moderate Persistent Asthma Without Complication Ulcerative Colitis Without Complications (Hcc) Chronic Nausea Lumbar Stenosis Cervical Stenosis of Spine Claustrophobia Lumbar Spondylosis Preop Testing Anaphylaxis Current Outpatient Prescriptions: EPINEPHrine (EPIPEN) 0.3 mg/0.3 mL auto-injector Inject 0.3 mL intramuscularly as needed. Disp: 2 Each Rfl: 1 azithromycin (ZITHROMAX) 250 mg tablet Take 1 tablet by mouth once daily. Disp: 1 Package Rfl: 0 benzonatate (TESSALON PERLE) 100 mg capsule Take 2 capsules by mouth three times daily as needed. Disp: 30 capsule Rfl: 0 pregabalin (LYRICA) 150 mg capsule Take 1 capsule by mouth twice daily for 181 days. Disp: 180 capsule Rfl: 1 predniSONE (DELTASONE) 10 mg tablet Take 2.5 tablets by mouth once daily. (Patient taking differently: Take 25 mg by mouth once daily. Total 25 mg daily ) Disp: Rfl: 0 ergocalciferol, vitamin D2, (VITAMIN D) 50,000 unit capsule Take 1 capsule by mouth once each week. (Patient taking differently: Take 50,000 Units by mouth once each week. Every Monday ) Disp: 12 capsule Rfl: 4 amLODIPine (NORVASC) 10 mg tablet Take 10 mg by mouth once daily. Disp: Rfl: TURMERIC ROOT EXTRACT ORAL Take 1 tablet by mouth twice daily. Disp: Rfl: COMPOUNDED PRESCRIPTION Nocturnal oximetry on room air. Disp: 1 Each Rfl: 0 nitroglycerin sublingual (NITROQUICK) 0.4 mg SL tablet DISSOLVE 1 TABLET UNDER THE TONGUE NEEDED FOR CHEST PAIN IF NO RELIEF CALL 911 Disp: 25 Bottle of 25 Rfl: 3 budesonide (PULMICORT) 0.5 mg/2 mL nebulizer solution Use 1 Ampule via nebulizer twice daily. Disp: 60 Ampule Rfl: 6 crisaborole (EUCRISA) 2 % oint Apply to the hands twice daily Disp: 60 g Rfl: 3 COMPOUNDED PRESCRIPTION Please provide patient with nebulizer machine and supplies.Diagnosis: Severe Asthma. Disp: 1 Each Rfl: 0 fluticasone-vilanterol (BREO ELLIPTA) 100-25 mcg/dose inhaler Inhale 1 Inhalation as instructed once daily. Disp: Rfl: cetirizine (ZYRTEC) 10 mg tablet Take 10 mg by mouth once daily. Disp: Rfl: pimecrolimus (ELIDEL) 1 % cream Apply twice daily to the hands Disp: 30 Tube Rfl: 3 spironolactone (ALDACTONE) 50 mg tablet Take 1 tablet by mouth twice daily. Disp: 180 tablet Rfl: 3 ondansetron (ZOFRAN) 4 mg tablet Take 1 tablet by mouth every 8 hours as needed. Disp: 30 tablet Rfl: 3 Cholestyramine, Bulk, powd Take 1 scoop by mouth once daily. Disp: 1134 g Rfl: 4 bumetanide (BUMEX) 0.5 mg tablet Take 1 tablet by mouth once daily. Disp: 90 tablet Rfl: 4 lansoprazole (PREVACID) 30 mg capsule Take 1 capsule by mouth twice daily. Disp: 180 capsule Rfl: 4 Azelastine 0.15 % (205.5 mcg) spry Use 1 Wilberforce in each nostril twice daily. Disp: 3 Bottle Rfl: 3 levalbuterol tartrate HFA (XOPENEX HFA) 45 mcg/actuation inhaler Inhale 1-2 Puffs as instructed every 6 hours as needed for Wheezing/Shortness of Breath. Disp: 3 Inhaler Rfl: 3 levalbuterol (XOPENEX) 1.25 mg/3 mL nebulizer solution Use 1 Ampule via nebulizer every 4 hours as needed. Inhale over 5-15 minutes Disp: 300 Ampule Rfl: 3 fluticasone (FLONASE) 50 mcg/actuation nasal spray 1-2 sprays each side qd Disp: 3 Bottle Rfl: 3 Benzonatate 200 mg capsule Take 200 mg by mouth three times daily as needed for Cough. Disp: 30 capsule Rfl: 1 lactobacillus rhamnosus (CULTURELLE) 10 billion cell capsule Take 1 capsule by mouth twice daily. Disp: Rfl: famotidine (PEPCID) 20 mg tablet Take 1 tablet by mouth twice daily. (Patient taking differently: Take 20 mg by mouth twice daily. as needed ) Disp: 14 tablet Rfl: 0 diphenhydrAMINE (BENADRYL) 50 mg capsule Take 1 capsule by mouth every 6 hours as needed for Itching/Rash. Disp: 30 capsule Rfl: 0 amoxicillin (POLYMOX, AMOXIL) 250 mg capsule Take 250 mg by mouth once daily. Disp: Rfl: zafirlukast (ACCOLATE) 20 mg tablet Take 1 tablet by mouth twice daily. Disp: 60 tablet Rfl: 11 doxazosin (CARDURA) 2 mg tablet Take 2 mg by mouth once daily. Disp: Rfl: cycloSPORINE Modified 50 mg capsule Take 50 mg by mouth twice daily. Disp: Rfl: ascorbic acid (VITAMIN C) 500 mg tablet Take 1 tablet by mouth once daily. Disp: 90 tablet Rfl: 0 No current facility-administered medications for this visit. ROS: Negative except for as listed above GENERAL: Denies fever, chills, night sweats, or changes in weight. EXAM: Blood pressure 138/88, pulse 80, temperature 38 ?C (100.4 ?F), temperature source Tympanic, weight 91.6 kg (202 lb), last menstrual period 08/07/2013. APPEARANCE Well appearing, alert, in no acute distress, well- hydrated, well nourished. EYES PERRLA, conjunctiva and sclera normal. EARS External ears normal, canals clear NOSE/SINUS Nares normal. Septum midline. Mucosa normal. No drainage or sinus tenderness. MOUTH No oral / pharyngel lesions/ exudate THROAT normal, no erythema NECK Supple, no adenopathy; thyroid symmetric, normal size, no bruits HEART RRR with normal S1 and S2, no murmurs, no gallops, no JVD appreciated LUNG clear to auscultation EXTREMITIES Normal, No deformities, No skin discoloration, No edema and Normal pulses bilaterally. ASSESSMENT/PLAN See PCP routinely Plan reviewed in detail and Ralph Joshi verbalizes understanding. Call or return if no improvement or symptoms worsen (T78.40XD) Allergic disorder, subsequent encounter (primary encounter diagnosis) (E66.9) Obesity (BMI 30.0-34.9) Plan: PARKING FOR HANDICAPPED (J45.20) Intermittent asthma, unspecified asthma severity, unspecified whether complicated Plan: PARKING FOR HANDICAPPED Red flag symptoms reviewed. Lopez Mac CNP Referring Provider: SELF [[id number]] Allergies As of Date: 04/20/2017 Noted Allergy Reaction AVOCADO 09/10/2014 10 - Anaphylaxis BANANA 09/10/2014 10 - Anaphylaxis CARBINOXAMINE 09/17/2012 10 - Anaphylaxis YOSELIN SEED 08/28/2013 10 - Anaphylaxis CIPROFLOXACIN 04/11/2014 10 - Anaphylaxis CODEINE 01/12/2012 10 - Anaphylaxis CONTRAST DYE 05/17/2013 10 - Anaphylaxis Comments: To MRI and CT FISH 09/07/2014 10 - Anaphylaxis HYCODAN (HYDROCODONE-HOMATROPINE) 09/08/2011 10 - Anaphylaxis Comments: Face and throat swelling LATEX 01/21/2014 10 - Anaphylaxis IMTIAZ-SYNEPHRINE (PHENYLEPHRINE HCL)09/04/2014 10 - Anaphylaxis Comments: 10% eye drop NICKEL 01/07/2014 2 - Rash 4 - Hives 10 - Anaphylaxis NSAIDS (NON-STEROIDAL ANTI-INFLAM*08/16/2010 14 - Other: See Comments Comments: Kidney function drops; reversible kidney damage. OXYCODONE 08/28/2013 10 - Anaphylaxis PERIACTIN (CYPROHEPTADINE) 09/17/2012 10 - Anaphylaxis PNEUMOCOCCAL VACCINE 10/31/2014 10 - Anaphylaxis SHELLFISH 09/07/2014 10 - Anaphylaxis ZANTAC (RANITIDINE) 09/17/2012 10 - Anaphylaxis ATIVAN (LORAZEPAM) 08/28/2013 14 - Other: See Comments Comments: hallucination BEEF CONTAINING PRODUCTS 09/10/2014 2 - Rash CORN 05/03/2011 14 - Other: See Comments Comments: Feels like an asthma attack. EGGS (EGG) 03/08/2011 2 - Rash 11 - Vomiting EKG LEADS (ADHESIVE) 10/22/2012 2 - Rash Comments: Localized,only under the leads INFLUENZA VIRUS VACCINES 10/22/2012 12 - Shortness of Breath LISINOPRIL 04/20/2004 3 - Cough MILK 03/08/2011 2 - Rash 11 - Vomiting MOMETASONE 04/05/2017 10 - Anaphylaxis Comments: Per Dr. Salas she tolerates formoterol (on Breo at home) but is allergic to mometasone. Okayed by him to update. XOLAIR (OMALIZUMAB) 04/19/2012 12 - Shortness of Breath environmental [Other] 06/26/2007 14 - Other: See Comments Comments: Nasal congestion, brings on an asthma attack. surgical tape [Other] 11/10/2009 2 - Rash 7 - Swelling Comments: Oral rash, swelling of eyes, asthma attacks; per pateint report. Date Reviewed: 04/20/2017 Reviewed by: Sanna Keane - Fully Assessed Reason for Visit: Hospital F/U [57] Cmt: anaphylactic reaction to eye drops 04/06/2017 d/c [place] Reason For Visit History Recorded Primary Visit Diagnosis:Allergic disorder, subsequent encounter [T78.40XD] Other Visit Diagnoses:Obesity (BMI 30.0-34.9) [E66.9] Intermittent asthma, unspecified asthma severity, unspecified whether complicated [J45.20] Order(s):EPINEPHrine (EPIPEN) 0.3 mg/0.3 mL auto-injectorInject 0.3 mL intramuscularly as needed.Disp: 2 EachRfl: 1 PARKING FOR HANDICAPPED [[id number]] Order #: [id number] Prescriptions as of 04/20/2017 Sig: EPINEPHRINE 0.3 MG/0.3 ML INJ* Inject 0.3 mL intramuscularly* AZITHROMYCIN 250 MG TABLET Take 1 tablet by mouth once d* BENZONATATE 100 MG CAPSULE Take 2 capsules by mouth thre* PREGABALIN 150 MG CAPSULE Take 1 capsule by mouth twice* PREDNISONE 10 MG TABLET Take 2.5 tablets by mouth onc* Patient taking differently: Take 25 mg by mouth once mary ellen* ERGOCALCIFEROL (VITAMIN D2) 5* Take 1 capsule by mouth once * Patient taking differently: Take 50,000 Units by mouth on* AMLODIPINE 10 MG TABLET Take 10 mg by mouth once mary ellen* TURMERIC ROOT EXTRACT ORAL Take 1 tablet by mouth twice * COMPOUNDED PRESCRIPTION Nocturnal oximetry on room ai* NITROGLYCERIN 0.4 MG SUBLINGU* DISSOLVE 1 TABLET UNDER THE T* BUDESONIDE 0.5 MG/2 ML SUSPEN* Use 1 Ampule via nebulizer tw* CRISABOROLE 2 % TOPICAL OINTM* Apply to the hands twice daily COMPOUNDED PRESCRIPTION Please provide patient with n* FLUTICASONE 100 MCG-VILANTERO* Inhale 1 Inhalation as instru* CETIRIZINE 10 MG TABLET Take 10 mg by mouth once mary ellen* PIMECROLIMUS 1 % TOPICAL CREAM Apply twice daily to the hands SPIRONOLACTONE 50 MG TABLET Take 1 tablet by mouth twice * ONDANSETRON HCL 4 MG TABLET Take 1 tablet by mouth every * CHOLESTYRAMINE (BULK) POWDER Take 1 scoop by mouth once da* BUMETANIDE 0.5 MG TABLET Take 1 tablet by mouth once d* LANSOPRAZOLE 30 MG CAPSULE,DE* Take 1 capsule by mouth twice* AZELASTINE 0.15 % (205.5 MCG)* Use 1 Wilberforce in each nostril t* LEVALBUTEROL HFA 45 MCG/ACTUA* Inhale 1-2 Puffs as instructe* LEVALBUTEROL 1.25 MG/3 ML BRENDA* Use 1 Ampule via nebulizer ev* FLUTICASONE 50 MCG/ACTUATION * 1-2 sprays each side qd BENZONATATE 200 MG CAPSULE Take 200 mg by mouth three ti* LACTOBACILLUS RHAMNOSUS GG 10* Take 1 capsule by mouth twice* FAMOTIDINE 20 MG TABLET Take 1 tablet by mouth twice * Patient taking differently: Take 20 mg by mouth twice liam* DIPHENHYDRAMINE 50 MG CAPSULE Take 1 capsule by mouth every* AMOXICILLIN 250 MG CAPSULE Take 250 mg by mouth once liam* ZAFIRLUKAST 20 MG TABLET Take 1 tablet by mouth twice * DOXAZOSIN 2 MG TABLET Take 2 mg by mouth once daily. CYCLOSPORINE MODIFIED 50 MG C* Take 50 mg by mouth twice liam* ASCORBIC ACID (VITAMIN C) 500* Take 1 tablet by mouth once d* Problem List As Of Date 04/20/2017 Noted Resolved JOINT PAIN-ANKLE [M25.579] INVALID FOR*03/20/2014 Edema [R60.9] INVALID FOR*03/28/2016 Priority: I Adrenal nodule (HCC) [E27.9] INVALID FOR* More... Diarrhea [R19.7] INVALID FOR*10/15/2013 Hypertension [I10] INVALID FOR* Priority: E Excessive or frequent menstruation [N92.0] INVALID FOR*07/14/2011 Shortness of breath [R06.02] INVALID FOR*10/15/2013 Palpitations [R00.2] INVALID FOR*03/20/2014 Tachycardia, unspecified [R00.0] INVALID FOR*10/15/2013 More... Open wound site NOS [T14.8XXA] INVALID FOR*07/16/2011 Abdominal pain, right upper quadrant [R10.11] INVALID FOR*07/14/2011 More... Acute gastritis without mention of hemorrhage [*INVALID FOR*10/15/2013 Hematuria [599.7] INVALID FOR*07/14/2011 URGE INCONTINENCE [N39.41] INVALID FOR* FEMALE STRESS INCONTINENCE [N39.3] INVALID FOR* Scar, hypertrophic [L91.0] INVALID FOR*10/15/2013 Ovarian cyst [N83.209] INVALID FOR*07/06/2010 Cyst INVALID FOR*10/15/2013 Other specified pre-operative examination [Z01.*INVALID FOR*07/16/2011 Hirsutism [L68.0] INVALID FOR* Dysphagia [R13.10] INVALID FOR*03/20/2014 GERD (gastroesophageal reflux disease) [K21.9] INVALID FOR* Priority: D More... 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 Obesity (BMI 30.0-34.9) [E66.9] INVALID FOR* More... More... More... More... Idiopathic anaphylaxis [T78.2XXA] INVALID FOR* Priority: A More... Urticaria, idiopathic [L50.1] INVALID FOR*03/28/2016 More... Hyperlipidemia [E78.5] INVALID FOR* Impaired fasting glucose [R73.01] INVALID FOR* Recurrent chest pain [R07.9, G89.29] INVALID FOR*12/09/2014 Multinodular goiter [E04.2] INVALID FOR* More... CKD (chronic kidney disease) stage 3, GFR 30-59*INVALID FOR* Pain in joint, ankle and foot [M25.579] INVALID FOR*12/09/2014 More... More... Steroid-induced hyperglycemia [R73.9, T38.0X5A] INVALID FOR*03/28/2016 Priority: C Moderate persistent asthma without complication*INVALID FOR* Ulcerative colitis without complications (HCC) *INVALID FOR* Anaphylaxis [T78.2XXA] INVALID FOR*03/26/2015 More... Neck pain, bilateral [M54.2] INVALID FOR*03/28/2016 Essential hypertension with goal blood pressure*INVALID FOR*03/28/2016 Chronic nausea [R11.0] INVALID FOR* Lumbar radiculitis [M54.16] INVALID FOR*03/28/2016 Lumbar stenosis [M48.061] INVALID FOR*03/28/2016 Acquired spondylolisthesis [M43.10] INVALID FOR*03/28/2016 Cervical radiculitis [M54.12] INVALID FOR*03/28/2016 Cervical spondylosis with radiculopathy [M47.22]INVALID FOR*03/29/2017 Shoulder impingement [M75.40] INVALID FOR*03/28/2016 Anaphylaxis [T78.2XXA] INVALID FOR*03/28/2016 Tendonitis, tibialis [M76.829] INVALID FOR*05/09/2016 Lumbar stenosis [M48.061] INVALID FOR* Cervical radiculitis [M54.12] INVALID FOR*03/29/2017 Cervical herniated disc [M50.20] INVALID FOR*03/29/2017 Cervical stenosis of spine [M48.02] INVALID FOR* Cervical spondylosis with myelopathy [M47.12] INVALID FOR*03/29/2017 Cervical myelopathy (HCC) [G95.9] INVALID FOR*03/29/2017 Claustrophobia [F40.240] INVALID FOR* Ptosis of eyelid, bilateral [H02.403] INVALID FOR*03/29/2017 More... Lumbar spondylosis [M47.816] INVALID FOR* More... Preop testing [Z01.818] INVALID FOR* More... Anaphylaxis [T78.2XXA] INVALID FOR* Prescriptions ordered this encounter Disp Refills Start End EPINEPHRINE 0.3 MG/0.3 ML INJECTION,* 2 Ea* 1 04/20/2017 Route: INTRAMUSCULA Sig: Inject 0.3 mL intramuscularly as needed. Medications Discontinued During This Encounter EPINEPHrine 0.3 mg/0.3 mL auto-injec* 2 Ea* 1 12/24/2015 04/20/2017 Class: Print RX Route: INTRAMUSCULAR Sig: Inject 0.3 mL intramuscularly as needed. Disc: Reason for discontinue is not on file. Encounter Status:Closed by LOPEZ MAC CNP on 04/20/17 PROGRESS Observed: 04/19/2017 Status: COMPLETED Source: [place] 1:46 PM [facility] REPOSITORY O ID: [id number] Author: Hany Marina Service: (none) Author Type: Nurse Practitioner Type: Progress Notes Filed: 04/19/2017 2:16 PM Note Text: HPI HPI Ralph Joshi is a 62 year old female who presents today for CC of cough. This started 4 days ago/getting worse. Has tried multiple otc medications. Symptoms are made relieved by nothing. Symptoms are worsened by nothing. Risk factors multiple sick exposures at home. Review of Systems Constitutional: Negative for chills, fever and weight loss. HENT: Positive for congestion. Negative for ear pain, nosebleeds and sore throat. Respiratory: Positive for cough and wheezing. Negative for hemoptysis and shortness of breath. Musculoskeletal: Negative for neck pain. PAST MEDICAL HISTORY Diagnosis Date - Abdominal pain, other specified site - ACNE NEC 01/21/2008 - Actinic Keratosis (Premalignant AK) 06/05/2011 - ACUTE GASTRITIS W/O HEMORRHAGE 04/26/2007 - Allergic rhinitis 04/23/2012 - Anaphylactic reaction ideopathic - Benign tumor of adrenal gland - Biliary dyskinesia 10/29/2009 - Cervical herniated disc 10/20/2016 - Cervical myelopathy (HCC) 10/25/2016 - Cervical radiculitis 10/20/2016 - Cervical spondylosis with radiculopathy 11/17/2015 - JAIN ANGIOMA///NEVUS, NON-NEOPLASTIC 05/28/2007 - CKD (chronic kidney disease) stage 3, GFR 30-59 ml/min 04/29/2013 - Diaphragmatic hernia without mention of obstruction or gangrene 05/25/2011 - Diverticulosis of colon (without mention of hemorrhage) - Edema 07/07/2004 - Epigastric pain - GERD (gastroesophageal reflux disease) - HTN (hypertension) 2002 controlled on Diovan - Hyperlipidemia 10/15/2013 - IRON DEFIC ANEMIA NOS 04/26/2007 - Moderate persistent asthma without complication 02/18/2015 - Ovarian cyst Benign ovarian cyst, S/P laparoscopic LSO - Ptosis of eyelid, bilateral 12/23/2016 Added automatically from request for surgery [id number] - Shoulder impingement 11/17/2015 - Sleep apnea intollerant to CPAP because allergic to material on mask - Steroid-induced hyperglycemia 09/06/2014 - TACHYCARDIA NOS 01/09/2006 - Tarsal tunnel syndrome 12/23/2009 - Tear of lateral meniscus of knee 02/21/2014 - Ulcerative colitis, unspecified - UTERINE LEIOMYOMA NOS 12/23/2005 - VIRAL WARTS NOS 05/09/2006 - Vocal cord dysfunction PAST SURGICAL HISTORY Procedure Laterality Date - CHOLECYSTECTOMY HX - COLONOSCOP W/ OR W/O [facility]SH SPEC 09/06/2005 Colonoscopy - COLONOSCOP W/ OR W/O [facility]RS SPEC Colonoscopy - COLONOSCOP W/ OR W/O [facility] SPEC 05/28/2012 Colonoscopy repeat 5 years. - EGD 07/29/14 normal - EGD W/O OR W/BRUSH/WASH 09/06/2005 EGD - EGD W/O OR W/BRUSH/WASH 04/26/2007 EGD - EGD W/O OR W/BRUSH/WASH 05/25/2011 EGD - EGD W/O OR W/BRUSH/WASH 05/28/2012 EGD - L'SCOPE REM ADNEX W/PART/TOT OOPH/SALP 06/11/2009 Laparoscopic LSO for benign ovarian cyst - LAMINECTOMY,CERVICAL 10/2016 - LAP CHOLECYSTECT/CHOLANGIOGRAPHY 10/30/09 Normal IOC - ORTHOPEDICS SURGERY HX 12/2013 repaired Rt achilles tendon - PAST SURGICAL HISTORY OF 09/19 left foot surgery on heel and repaired torn tdndon - SIGMOIDOSCOPY FLEX DIAG 05/20/08 - TARSAL TUNNEL RELEASE 07/2010 Left foot ALLERGIES Avocado; Banana; Carbinoxamine; Yoselin Seed; Ciprofloxacin; Codeine; Contrast Dye; Fish; Hycodan [Hydrocodone-Homatropine]; Latex; Imtiaz-Synephrine [Phenylephrine Hcl]; Nickel; Nsaids (Non-Steroidal Anti-Inflammatory Drug); Oxycodone; Periactin [Cyproheptadine]; Pneumococcal Vaccine; Shellfish; Zantac [Ranitidine]; Ativan [Lorazepam]; Beef Containing Products; Berino; Eggs [Egg]; Ekg Leads [Adhesive]; Influenza Virus Vaccines; Lisinopril; Milk; Mometasone; Xolair [Omalizumab]; Environmental [Other]; Surgical Tape [Other] MEDICATIONS pregabalin (LYRICA) 150 mg capsule Take 1 capsule by mouth twice daily for 181 days. predniSONE (DELTASONE) 10 mg tablet Take 2.5 tablets by mouth once daily. ergocalciferol, vitamin D2, (VITAMIN D) 50,000 unit capsule Take 1 capsule by mouth once each week. amLODIPine (NORVASC) 10 mg tablet Take 10 mg by mouth once daily. TURMERIC ROOT EXTRACT ORAL Take 1 tablet by mouth twice daily. COMPOUNDED PRESCRIPTION Nocturnal oximetry on room air. nitroglycerin sublingual (NITROQUICK) 0.4 mg SL tablet DISSOLVE 1 TABLET UNDER THE TONGUE NEEDED FOR CHEST PAIN IF NO RELIEF CALL 911 budesonide (PULMICORT) 0.5 mg/2 mL nebulizer solution Use 1 Ampule via nebulizer twice daily. crisaborole (EUCRISA) 2 % oint Apply to the hands twice daily COMPOUNDED PRESCRIPTION Please provide patient with nebulizer machine and supplies.Diagnosis: Severe Asthma. fluticasone-vilanterol (BREO ELLIPTA) 100-25 mcg/dose inhaler Inhale 1 Inhalation as instructed once daily. cetirizine (ZYRTEC) 10 mg tablet Take 10 mg by mouth once daily. pimecrolimus (ELIDEL) 1 % cream Apply twice daily to the hands spironolactone (ALDACTONE) 50 mg tablet Take 1 tablet by mouth twice daily. ondansetron (ZOFRAN) 4 mg tablet Take 1 tablet by mouth every 8 hours as needed. Cholestyramine, Bulk, powd Take 1 scoop by mouth once daily. bumetanide (BUMEX) 0.5 mg tablet Take 1 tablet by mouth once daily. lansoprazole (PREVACID) 30 mg capsule Take 1 capsule by mouth twice daily. Azelastine 0.15 % (205.5 mcg) spry Use 1 Wilberforce in each nostril twice daily. levalbuterol tartrate HFA (XOPENEX HFA) 45 mcg/actuation inhaler Inhale 1-2 Puffs as instructed every 6 hours as needed for Wheezing/Shortness of Breath. levalbuterol (XOPENEX) 1.25 mg/3 mL nebulizer solution Use 1 Ampule via nebulizer every 4 hours as needed. Inhale over 5-15 minutes fluticasone (FLONASE) 50 mcg/actuation nasal spray 1-2 sprays each side qd lactobacillus rhamnosus (CULTURELLE) 10 billion cell capsule Take 1 capsule by mouth twice daily. famotidine (PEPCID) 20 mg tablet Take 1 tablet by mouth twice daily. diphenhydrAMINE (BENADRYL) 50 mg capsule Take 1 capsule by mouth every 6 hours as needed for Itching/Rash. EPINEPHrine 0.3 mg/0.3 mL auto-injector Inject 0.3 mL intramuscularly as needed. amoxicillin (POLYMOX, AMOXIL) 250 mg capsule Take 250 mg by mouth once daily. zafirlukast (ACCOLATE) 20 mg tablet Take 1 tablet by mouth twice daily. doxazosin (CARDURA) 2 mg tablet Take 2 mg by mouth once daily. cycloSPORINE Modified 50 mg capsule Take 50 mg by mouth twice daily. ascorbic acid (VITAMIN C) 500 mg tablet Take 1 tablet by mouth once daily. Benzonatate 200 mg capsule Take 200 mg by mouth three times daily as needed for Cough. FAMILY HISTORY Problem Relation Age of Onset - Colon Cancer Father dx age 60. Alive at 85. - Hypertension Father Alive at 85. - Cataract Father Alive at 85. - Thyroid Father Alive at 85. - Heart Father [place] at 87 - Diabetes Mother colon polyps. age 72. - Hypertension Mother age 72. - benign brainstem tumor [OTHER] Mother Persistent vegetative state. age 72. - defects Sister infant - Glaucoma Maternal Grandmother - Stroke Maternal Grandfather - Cancer Paternal Grandmother cervical - Colon Cancer Son 38 colon and rectal cancer - Breast Cancer Sister Developed in late 20s. Alive at 52. - Osteoporosis Sister - colon polyps [OTHER] Sister 3 sisters with colon polyps Social History Substance Use Topics - Smoking status: Never Smoker - Smokeless tobacco: Never Used - Alcohol use No Blood pressure 132/78, pulse 116, temperature 37.8 ?C (100 ?F), temperature source Left Tympanic, resp. rate 16, weight 93 kg (205 lb), last menstrual period 08/07/2013, SpO2 96 %. Component Latest Ref Rng AND Units 04/12/2017 Glucose 74 - 99 mg/dL 85 BUN 7 - 21 mg/dL 24 (H) Creatinine 0.58 - 0.96 mg/dL 1.51 (H) Sodium 136 - 144 mmol/L 142 Potassium 3.7 - 5.1 mmol/L 4.3 Chloride 97 - 105 mmol/L 106 (H) CO2 22 - 30 mmol/L 24 Anion Gap 9 - 18 mmol/L 12 Calcium 8.5 - 10.2 mg/dL 9.2 eGFR- 42 eGFR-All Other Races . 35 Physical Exam Constitutional: She is oriented to person, place, and time and well-developed, well-nourished, and in no distress. Non-toxic appearance. She does not have a sickly appearance. No distress. HENT: Head: Normocephalic and atraumatic. Right Ear: Hearing, tympanic membrane, external ear and ear canal normal. Left Ear: Hearing, tympanic membrane, external ear and ear canal normal. Nose: Nose normal. Mouth/Throat: Uvula is midline, oropharynx is clear and moist and mucous membranes are normal. Eyes: Conjunctivae and lids are normal. Pupils are equal, round, and reactive to light. Right eye exhibits no discharge. Left eye exhibits no discharge. No scleral icterus. Neck: Trachea normal and normal range of motion. Neck supple. Cardiovascular: Normal rate, regular rhythm and normal heart sounds. Pulmonary/Chest: Effort normal. She has rhonchi (scattered, moslty clear with cough). Persistent loose cough during exam. Lymphadenopathy: She has no cervical adenopathy. Neurological: She is alert and oriented to person, place, and time. Skin: No rash noted. She is not diaphoretic. ASSESSMENT/PLAN: 1. Asthmatic bronchitis without complication, unspecified asthma severity, unspecified whether persistent - ICD9: 493.90, ICD10: J45.909 - Discussed supportive care, given educational handout - discussed use of rescue inhalers -continue daily prednisone - Limit exposure to smoke and other inhaled irritants - Discussed possible red flags and when to seek medical attention - Follow up in 3-5 days or sooner if no better or worse -chest pain/sob go to ER - AZITHROMYCIN 250 MG TABLET - BENZONATATE 100 MG CAPSULE Prescription instructions reviewed with patient as applicable. Patient advised if symptoms do not improve or if symptoms worsen sooner, to contact the office for further evaluation by their primary care physician. Potential red flag symptoms discussed with the patient. Reviewed appropriate action plan to take if red flag symptoms occur. Patient agreeable to treatment plan. TISHA Delaney Observed: 04/19/2017 Status: COMPLETED Source: [place] 1:30 PM [facility] REPOSITORY Office Visit ([facility]) RALPH JOSHI ([id number]) 1955 F Date Time Provider Department 04/19/17 1:30 PM HANY MARINA) [facility] During your visit today, we recorded the following information about you: Temperature Pulse Respiration Blood pressure 100 degrees 116/minute 16/minute 132/78 Weight 93 kg Hany Marina CNP 04/19/2017 2:16 PM Signed HPI HPI Ralph Joshi is a 62 year old female who presents today for CC of cough. This started 4 days ago/getting worse. Has tried multiple otc medications. Symptoms are made relieved by nothing. Symptoms are worsened by nothing. Risk factors multiple sick exposures at home. Review of Systems Constitutional: Negative for chills, fever and weight loss. HENT: Positive for congestion. Negative for ear pain, nosebleeds and sore throat. Respiratory: Positive for cough and wheezing. Negative for hemoptysis and shortness of breath. Musculoskeletal: Negative for neck pain. PAST MEDICAL HISTORY Diagnosis Date - Abdominal pain, other specified site - ACNE NEC 01/21/2008 - Actinic Keratosis (Premalignant AK) 06/05/2011 - ACUTE GASTRITIS W/O HEMORRHAGE 04/26/2007 - Allergic rhinitis 04/23/2012 - Anaphylactic reaction ideopathic - Benign tumor of adrenal gland - Biliary dyskinesia 10/29/2009 - Cervical herniated disc 10/20/2016 - Cervical myelopathy (HCC) 10/25/2016 - Cervical radiculitis 10/20/2016 - Cervical spondylosis with radiculopathy 11/17/2015 - JAIN ANGIOMA///NEVUS, NON-NEOPLASTIC 05/28/2007 - CKD (chronic kidney disease) stage 3, GFR 30-59 ml/min 04/29/2013 - Diaphragmatic hernia without mention of obstruction or gangrene 05/25/2011 - Diverticulosis of colon (without mention of hemorrhage) - Edema 07/07/2004 - Epigastric pain - GERD (gastroesophageal reflux disease) - HTN (hypertension) 2002 controlled on Diovan - Hyperlipidemia 10/15/2013 - IRON DEFIC ANEMIA NOS 04/26/2007 - Moderate persistent asthma without complication 02/18/2015 - Ovarian cyst Benign ovarian cyst, S/P laparoscopic LSO - Ptosis of eyelid, bilateral 12/23/2016 Added automatically from request for surgery [id number] - Shoulder impingement 11/17/2015 - Sleep apnea intollerant to CPAP because allergic to material on mask - Steroid-induced hyperglycemia 09/06/2014 - TACHYCARDIA NOS 01/09/2006 - Tarsal tunnel syndrome 12/23/2009 - Tear of lateral meniscus of knee 02/21/2014 - Ulcerative colitis, unspecified - UTERINE LEIOMYOMA NOS 12/23/2005 - VIRAL WARTS NOS 05/09/2006 - Vocal cord dysfunction PAST SURGICAL HISTORY Procedure Laterality Date - CHOLECYSTECTOMY HX - COLONOSCOP W/ OR W/O BRS SPEC 09/06/2005 Colonoscopy - COLONOSCOP W/ OR W/O [facility] SPEC Colonoscopy - COLONOSCOP W/ OR W/O [facility] SPEC 05/28/2012 Colonoscopy repeat 5 years. - EGD 07/29/14 normal - EGD W/O OR W/BRUSH/WASH 09/06/2005 EGD - EGD W/O OR W/BRUSH/WASH 04/26/2007 EGD - EGD W/O OR W/BRUSH/WASH 05/25/2011 EGD - EGD W/O OR W/BRUSH/WASH 05/28/2012 EGD - L'SCOPE REM ADNEX W/PART/TOT OOPH/SALP 06/11/2009 Laparoscopic LSO for benign ovarian cyst - LAMINECTOMY,CERVICAL 10/2016 - LAP CHOLECYSTECT/CHOLANGIOGRAPHY 10/30/09 Normal IOC - ORTHOPEDICS SURGERY HX 12/2013 repaired Rt achilles tendon - PAST SURGICAL HISTORY OF 09/19 left foot surgery on heel and repaired torn tdndon - SIGMOIDOSCOPY FLEX DIAG 05/20/08 - TARSAL TUNNEL RELEASE 07/2010 Left foot ALLERGIES Avocado; Banana; Carbinoxamine; Yoselin Seed; Ciprofloxacin; Codeine; Contrast Dye; Fish; Hycodan [Hydrocodone-Homatropine]; Latex; Imtiaz-Synephrine [Phenylephrine Hcl]; Nickel; Nsaids (Non-Steroidal Anti-Inflammatory Drug); Oxycodone; Periactin [Cyproheptadine]; Pneumococcal Vaccine; Shellfish; Zantac [Ranitidine]; Ativan [Lorazepam]; Beef Containing Products; Berino; Eggs [Egg]; Ekg Leads [Adhesive]; Influenza Virus Vaccines; Lisinopril; Milk; Mometasone; Xolair [Omalizumab]; Environmental [Other]; Surgical Tape [Other] MEDICATIONS pregabalin (LYRICA) 150 mg capsule Take 1 capsule by mouth twice daily for 181 days. predniSONE (DELTASONE) 10 mg tablet Take 2.5 tablets by mouth once daily. ergocalciferol, vitamin D2, (VITAMIN D) 50,000 unit capsule Take 1 capsule by mouth once each week. amLODIPine (NORVASC) 10 mg tablet Take 10 mg by mouth once daily. TURMERIC ROOT EXTRACT ORAL Take 1 tablet by mouth twice daily. COMPOUNDED PRESCRIPTION Nocturnal oximetry on room air. nitroglycerin sublingual (NITROQUICK) 0.4 mg SL tablet DISSOLVE 1 TABLET UNDER THE TONGUE NEEDED FOR CHEST PAIN IF NO RELIEF CALL 911 budesonide (PULMICORT) 0.5 mg/2 mL nebulizer solution Use 1 Ampule via nebulizer twice daily. crisaborole (EUCRISA) 2 % oint Apply to the hands twice daily COMPOUNDED PRESCRIPTION Please provide patient with nebulizer machine and supplies.Diagnosis: Severe Asthma. fluticasone-vilanterol (BREO ELLIPTA) 100-25 mcg/dose inhaler Inhale 1 Inhalation as instructed once daily. cetirizine (ZYRTEC) 10 mg tablet Take 10 mg by mouth once daily. pimecrolimus (ELIDEL) 1 % cream Apply twice daily to the hands spironolactone (ALDACTONE) 50 mg tablet Take 1 tablet by mouth twice daily. ondansetron (ZOFRAN) 4 mg tablet Take 1 tablet by mouth every 8 hours as needed. Cholestyramine, Bulk, powd Take 1 scoop by mouth once daily. bumetanide (BUMEX) 0.5 mg tablet Take 1 tablet by mouth once daily. lansoprazole (PREVACID) 30 mg capsule Take 1 capsule by mouth twice daily. Azelastine 0.15 % (205.5 mcg) spry Use 1 Wilberforce in each nostril twice daily. levalbuterol tartrate HFA (XOPENEX HFA) 45 mcg/actuation inhaler Inhale 1-2 Puffs as instructed every 6 hours as needed for Wheezing/Shortness of Breath. levalbuterol (XOPENEX) 1.25 mg/3 mL nebulizer solution Use 1 Ampule via nebulizer every 4 hours as needed. Inhale over 5-15 minutes fluticasone (FLONASE) 50 mcg/actuation nasal spray 1-2 sprays each side qd lactobacillus rhamnosus (CULTURELLE) 10 billion cell capsule Take 1 capsule by mouth twice daily. famotidine (PEPCID) 20 mg tablet Take 1 tablet by mouth twice daily. diphenhydrAMINE (BENADRYL) 50 mg capsule Take 1 capsule by mouth every 6 hours as needed for Itching/Rash. EPINEPHrine 0.3 mg/0.3 mL auto-injector Inject 0.3 mL intramuscularly as needed. amoxicillin (POLYMOX, AMOXIL) 250 mg capsule Take 250 mg by mouth once daily. zafirlukast (ACCOLATE) 20 mg tablet Take 1 tablet by mouth twice daily. doxazosin (CARDURA) 2 mg tablet Take 2 mg by mouth once daily. cycloSPORINE Modified 50 mg capsule Take 50 mg by mouth twice daily. ascorbic acid (VITAMIN C) 500 mg tablet Take 1 tablet by mouth once daily. Benzonatate 200 mg capsule Take 200 mg by mouth three times daily as needed for Cough. FAMILY HISTORY Problem Relation Age of Onset - Colon Cancer Father dx age 60. Alive at 85. - Hypertension Father Alive at 85. - Cataract Father Alive at 85. - Thyroid Father Alive at 85. - Heart Father [place] at 87 - Diabetes Mother colon polyps. age 72. - Hypertension Mother age 72. - benign brainstem tumor [OTHER] Mother Persistent vegetative state. age 72. - defects Sister infant - Glaucoma Maternal Grandmother - Stroke Maternal Grandfather - Cancer Paternal Grandmother cervical - Colon Cancer Son 38 colon and rectal cancer - Breast Cancer Sister Developed in late 20s. Alive at 52. - Osteoporosis Sister - colon polyps [OTHER] Sister 3 sisters with colon polyps Social History Substance Use Topics - Smoking status: Never Smoker - Smokeless tobacco: Never Used - Alcohol use No Blood pressure 132/78, pulse 116, temperature 37.8 ?C (100 ?F), temperature source Left Tympanic, resp. rate 16, weight 93 kg (205 lb), last menstrual period 08/07/2013, SpO2 96 %. Component Latest Ref Rng ANDamp; Units 04/12/2017 Glucose 74 - 99 mg/dL 85 BUN 7 - 21 mg/dL 24 (H) Creatinine 0.58 - 0.96 mg/dL 1.51 (H) Sodium 136 - 144 mmol/L 142 Potassium 3.7 - 5.1 mmol/L 4.3 Chloride 97 - 105 mmol/L 106 (H) CO2 22 - 30 mmol/L 24 Anion Gap 9 - 18 mmol/L 12 Calcium 8.5 - 10.2 mg/dL 9.2 eGFR- 42 eGFR-All Other Races . 35 Physical Exam Constitutional: She is oriented to person, place, and time and well-developed, well-nourished, and in no distress. Non-toxic appearance. She does not have a sickly appearance. No distress. HENT: Head: Normocephalic and atraumatic. Right Ear: Hearing, tympanic membrane, external ear and ear canal normal. Left Ear: Hearing, tympanic membrane, external ear and ear canal normal. Nose: Nose normal. Mouth/Throat: Uvula is midline, oropharynx is clear and moist and mucous membranes are normal. Eyes: Conjunctivae and lids are normal. Pupils are equal, round, and reactive to light. Right eye exhibits no discharge. Left eye exhibits no discharge. No scleral icterus. Neck: Trachea normal and normal range of motion. Neck supple. Cardiovascular: Normal rate, regular rhythm and normal heart sounds. Pulmonary/Chest: Effort normal. She has rhonchi (scattered, moslty clear with cough). Persistent loose cough during exam. Lymphadenopathy: She has no cervical adenopathy. Neurological: She is alert and oriented to person, place, and time. Skin: No rash noted. She is not diaphoretic. ASSESSMENT/PLAN: 1. Asthmatic bronchitis without complication, unspecified asthma severity, unspecified whether persistent - ICD9: 493.90, ICD10: J45.909 - Discussed supportive care, given educational handout - discussed use of rescue inhalers -continue daily prednisone - Limit exposure to smoke and other inhaled irritants - Discussed possible red flags and when to seek medical attention - Follow up in 3-5 days or sooner if no better or worse -chest pain/sob go to ER - AZITHROMYCIN 250 MG TABLET - BENZONATATE 100 MG CAPSULE Prescription instructions reviewed with patient as applicable. Patient advised if symptoms do not improve or if symptoms worsen sooner, to contact the office for further evaluation by their primary care physician. Potential red flag symptoms discussed with the patient. Reviewed appropriate action plan to take if red flag symptoms occur. Patient agreeable to treatment plan. TISHA Delaney CNP 04/19/2017 2:06 PM Signed ACUTE BRONCHITIS: You have acute bronchitis. This means the airway passages in your lungs are inflamed. Bronchitis may be caused by viruses or bacteria. Inhaling cigarette smoke will always make it worse. Exposure to irritating chemicals or second hand smoke as well as allergies can contribute to bronchitis. Repeat episodes of bronchitis may cause lifelong lung problems. Acute bronchitis is usually treated with rest, fluids, cough medicine, and possibly antibiotics or inhaled medicine to open up the small airways. It is very important that you avoid smoke and drink increased amounts of fluids. A cool air vaporizer can help thin bronchial secretions. This makes it easier to cough and clear your chest. If you are a cigarette smoker, consider using nicotine gum or skin patches to help you withdraw. Recovery from bronchitis is often slow, but you should start feeling better after 2-3 days of treatment. Please call your doctor or return here if you have any of the following symptoms: - Increased fever, chills, or chest pain. - Severe shortness of breath or bloody sputum. - Do not improve after 3 days of proper treatment. Referring Provider: SELF [[id number]] Allergies As of Date: 04/19/2017 Noted Allergy Reaction AVOCADO 09/10/2014 10 - Anaphylaxis BANANA 09/10/2014 10 - Anaphylaxis CARBINOXAMINE 09/17/2012 10 - Anaphylaxis YOSELIN SEED 08/28/2013 10 - Anaphylaxis CIPROFLOXACIN 04/11/2014 10 - Anaphylaxis CODEINE 01/12/2012 10 - Anaphylaxis CONTRAST DYE 05/17/2013 10 - Anaphylaxis Comments: To MRI and CT FISH 09/07/2014 10 - Anaphylaxis HYCODAN (HYDROCODONE-HOMATROPINE) 09/08/2011 10 - Anaphylaxis Comments: Face and throat swelling LATEX 01/21/2014 10 - Anaphylaxis IMTIAZ-SYNEPHRINE (PHENYLEPHRINE HCL)09/04/2014 10 - Anaphylaxis Comments: 10% eye drop NICKEL 01/07/2014 2 - Rash 4 - Hives 10 - Anaphylaxis NSAIDS (NON-STEROIDAL ANTI-INFLAM*08/16/2010 14 - Other: See Comments Comments: Kidney function drops; reversible kidney damage. OXYCODONE 08/28/2013 10 - Anaphylaxis PERIACTIN (CYPROHEPTADINE) 09/17/2012 10 - Anaphylaxis PNEUMOCOCCAL VACCINE 10/31/2014 10 - Anaphylaxis SHELLFISH 09/07/2014 10 - Anaphylaxis ZANTAC (RANITIDINE) 09/17/2012 10 - Anaphylaxis ATIVAN (LORAZEPAM) 08/28/2013 14 - Other: See Comments Comments: hallucination BEEF CONTAINING PRODUCTS 09/10/2014 2 - Rash CORN 05/03/2011 14 - Other: See Comments Comments: Feels like an asthma attack. EGGS (EGG) 03/08/2011 2 - Rash 11 - Vomiting EKG LEADS (ADHESIVE) 10/22/2012 2 - Rash Comments: Localized,only under the leads INFLUENZA VIRUS VACCINES 10/22/2012 12 - Shortness of Breath LISINOPRIL 04/20/2004 3 - Cough MILK 03/08/2011 2 - Rash 11 - Vomiting MOMETASONE 04/05/2017 10 - Anaphylaxis Comments: Per Dr. Salas she tolerates formoterol (on Breo at home) but is allergic to mometasone. Okayed by him to update. XOLAIR (OMALIZUMAB) 04/19/2012 12 - Shortness of Breath environmental [Other] 06/26/2007 14 - Other: See Comments Comments: Nasal congestion, brings on an asthma attack. surgical tape [Other] 11/10/2009 2 - Rash 7 - Swelling Comments: Oral rash, swelling of eyes, asthma attacks; per pateint report. Date Reviewed: 04/19/2017 [facility]ed [facility]: [facility] - Fully Assessed Reason for Visit: Cough [28] Cmt: x 4 days cough and chest congestion Pain, Sinus [857] Cmt: x 4 days sinus pain right side of face Fever [47] Cmt: x 4 days low grade fever Primary Visit Diagnosis:Asthmatic bronchitis without complication, unspecified asthma severity, unspecified whether persistent [J45.909] Order(s):azithromycin (ZITHROMAX) 250 mg tabletTake 1 tablet by mouth once daily.Disp: 1 PackageRfl: 0 benzonatate (TESSALON PERLE) 100 mg capsuleTake 2 capsules by mouth three times daily as needed.Disp: 30 capsuleRfl: 0 Prescriptions as of 04/19/2017 Sig: PREGABALIN 150 MG CAPSULE Take 1 capsule by mouth twice* PREDNISONE 10 MG TABLET Take 2.5 tablets by mouth onc* Patient taking differently: Take 25 mg by mouth once mary ellen* ERGOCALCIFEROL (VITAMIN D2) 5* Take 1 capsule by mouth once * Patient taking differently: Take 50,000 Units by mouth on* AMLODIPINE 10 MG TABLET Take 10 mg by mouth once mary ellen* TURMERIC ROOT EXTRACT ORAL Take 1 tablet by mouth twice * COMPOUNDED PRESCRIPTION Nocturnal oximetry on room ai* NITROGLYCERIN 0.4 MG SUBLINGU* DISSOLVE 1 TABLET UNDER THE T* BUDESONIDE 0.5 MG/2 ML SUSPEN* Use 1 Ampule via nebulizer tw* CRISABOROLE 2 % TOPICAL OINTM* Apply to the hands twice daily COMPOUNDED PRESCRIPTION Please provide patient with n* FLUTICASONE 100 MCG-VILANTERO* Inhale 1 Inhalation as instru* CETIRIZINE 10 MG TABLET Take 10 mg by mouth once mary ellen* PIMECROLIMUS 1 % TOPICAL CREAM Apply twice daily to the hands SPIRONOLACTONE 50 MG TABLET Take 1 tablet by mouth twice * ONDANSETRON HCL 4 MG TABLET Take 1 tablet by mouth every * CHOLESTYRAMINE (BULK) POWDER Take 1 scoop by mouth once da* BUMETANIDE 0.5 MG TABLET Take 1 tablet by mouth once d* LANSOPRAZOLE 30 MG CAPSULE,DE* Take 1 capsule by mouth twice* AZELASTINE 0.15 % (205.5 MCG)* Use 1 Wilberforce in each nostril t* LEVALBUTEROL HFA 45 MCG/ACTUA* Inhale 1-2 Puffs as instructe* LEVALBUTEROL 1.25 MG/3 ML BRENDA* Use 1 Ampule via nebulizer ev* FLUTICASONE 50 MCG/ACTUATION * 1-2 sprays each side qd LACTOBACILLUS RHAMNOSUS GG 10* Take 1 capsule by mouth twice* FAMOTIDINE 20 MG TABLET Take 1 tablet by mouth twice * Patient taking differently: Take 20 mg by mouth twice liam* DIPHENHYDRAMINE 50 MG CAPSULE Take 1 capsule by mouth every* EPINEPHRINE 0.3 MG/0.3 ML INJ* Inject 0.3 mL intramuscularly* AMOXICILLIN 250 MG CAPSULE Take 250 mg by mouth once liam* ZAFIRLUKAST 20 MG TABLET Take 1 tablet by mouth twice * DOXAZOSIN 2 MG TABLET Take 2 mg by mouth once daily. CYCLOSPORINE MODIFIED 50 MG C* Take 50 mg by mouth twice liam* ASCORBIC ACID (VITAMIN C) 500* Take 1 tablet by mouth once d* AZITHROMYCIN 250 MG TABLET Take 1 tablet by mouth once d* BENZONATATE 100 MG CAPSULE Take 2 capsules by mouth thre* BENZONATATE 200 MG CAPSULE Take 200 mg by mouth three ti* Medication notes this encounter BENZONATATE 200 MG CAPSULE >> Elsi Mccauley LPN 04/19/2017 1:39 PM >> EDUARDO MCCAULEYE Nancy STAFFING DIRECTOR MonApr 19, 2017 1:39 PM [place] done Problem List As Of Date 04/19/2017 Noted Resolved JOINT PAIN-ANKLE [M25.579] INVALID FOR*03/20/2014 Edema [R60.9] INVALID FOR*03/28/2016 Priority: I Adrenal nodule (HCC) [E27.9] INVALID FOR* More... Diarrhea [R19.7] INVALID FOR*10/15/2013 Hypertension [I10] INVALID FOR* Priority: E Excessive or frequent menstruation [N92.0] INVALID FOR*07/14/2011 Shortness of breath [R06.02] INVALID FOR*10/15/2013 Palpitations [R00.2] INVALID FOR*03/20/2014 Tachycardia, unspecified [R00.0] INVALID FOR*10/15/2013 More... Open wound site NOS [T14.8XXA] INVALID FOR*07/16/2011 Abdominal pain, right upper quadrant [R10.11] INVALID FOR*07/14/2011 More... Acute gastritis without mention of hemorrhage [*INVALID FOR*10/15/2013 Hematuria [599.7] INVALID FOR*07/14/2011 URGE INCONTINENCE [N39.41] INVALID FOR* FEMALE STRESS INCONTINENCE [N39.3] INVALID FOR* Scar, hypertrophic [L91.0] INVALID FOR*10/15/2013 Ovarian cyst [N83.209] INVALID FOR*07/06/2010 Cyst INVALID FOR*10/15/2013 Other specified pre-operative examination [Z01.*INVALID FOR*07/16/2011 Hirsutism [L68.0] INVALID FOR* Dysphagia [R13.10] INVALID FOR*03/20/2014 GERD (gastroesophageal reflux disease) [K21.9] INVALID FOR* Priority: D More... 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 Obesity (BMI 30.0-34.9) [E66.9] INVALID FOR* More... More... More... More... Idiopathic anaphylaxis [T78.2XXA] INVALID FOR* Priority: A More... Urticaria, idiopathic [L50.1] INVALID FOR*03/28/2016 More... Hyperlipidemia [E78.5] INVALID FOR* Impaired fasting glucose [R73.01] INVALID FOR* Recurrent chest pain [R07.9, G89.29] INVALID FOR*12/09/2014 Multinodular goiter [E04.2] INVALID FOR* More... CKD (chronic kidney disease) stage 3, GFR 30-59*INVALID FOR* Pain in joint, ankle and foot [M25.579] INVALID FOR*12/09/2014 More... More... Steroid-induced hyperglycemia [R73.9, T38.0X5A] INVALID FOR*03/28/2016 Priority: C Moderate persistent asthma without complication*INVALID FOR* Ulcerative colitis without complications (HCC) *INVALID FOR* Anaphylaxis [T78.2XXA] INVALID FOR*03/26/2015 More... Neck pain, bilateral [M54.2] INVALID FOR*03/28/2016 Essential hypertension with goal blood pressure*INVALID FOR*03/28/2016 Chronic nausea [R11.0] INVALID FOR* Lumbar radiculitis [M54.16] INVALID FOR*03/28/2016 Lumbar stenosis [M48.061] INVALID FOR*03/28/2016 Acquired spondylolisthesis [M43.10] INVALID FOR*03/28/2016 Cervical radiculitis [M54.12] INVALID FOR*03/28/2016 Cervical spondylosis with radiculopathy [M47.22]INVALID FOR*03/29/2017 Shoulder impingement [M75.40] INVALID FOR*03/28/2016 Anaphylaxis [T78.2XXA] INVALID FOR*03/28/2016 Tendonitis, tibialis [M76.829] INVALID FOR*05/09/2016 Lumbar stenosis [M48.061] INVALID FOR* Cervical radiculitis [M54.12] INVALID FOR*03/29/2017 Cervical herniated disc [M50.20] INVALID FOR*03/29/2017 Cervical stenosis of spine [M48.02] INVALID FOR* Cervical spondylosis with myelopathy [M47.12] INVALID FOR*03/29/2017 Cervical myelopathy (HCC) [G95.9] INVALID FOR*03/29/2017 Claustrophobia [F40.240] INVALID FOR* Ptosis of eyelid, bilateral [H02.403] INVALID FOR*03/29/2017 More... Lumbar spondylosis [M47.816] INVALID FOR* More... Preop testing [Z01.818] INVALID FOR* More... Anaphylaxis [T78.2XXA] INVALID FOR* Other instructions from your clinician: ACUTE BRONCHITIS: You have acute bronchitis. This means the airway passages in your lungs are inflamed. Bronchitis may be caused by viruses or bacteria. Inhaling cigarette smoke will always make it worse. Exposure to irritating chemicals or second hand smoke as well as allergies can contribute to bronchitis. Repeat episodes of bronchitis may cause lifelong lung problems. Acute bronchitis is usually treated with rest, fluids, cough medicine, and possibly antibiotics or inhaled medicine to open up the small airways. It is very important that you avoid smoke and drink increased amounts of fluids. A cool air vaporizer can help thin bronchial secretions. This makes it easier to cough and clear your chest. If you are a cigarette smoker, consider using nicotine gum or skin patches to help you withdraw. Recovery from bronchitis is often slow, but you should start feeling better after 2-3 days of treatment. Please call your doctor or return here if you have any of the following symptoms: - Increased fever, chills, or chest pain. - Severe shortness of breath or bloody sputum. - Do not improve after 3 days of proper treatment. Prescriptions ordered this encounter Disp Refills Start End AZITHROMYCIN 250 MG TABLET 1 Pa* 0 04/19/2017 Class: Print RX Cmt: Take 2 pills on day 1 Day 2-5 take 1 pill per day Route: ORAL Sig: Take 1 tablet by mouth once daily. BENZONATATE 100 MG CAPSULE 30 c* 0 04/19/2017 Route: ORAL Sig: Take 2 capsules by mouth three times daily as needed. Encounter Status:Closed by HANY MARINA CNP on 04/19/17 URINALYSIS Collected: 04/19/2017 Status: F Source: [place] 10:41 AM [facility] REPOSITORY TYPE CODE TESTS RESULT OUT OF RANGE REFERENCE UNITS LAB UCOL Yellow Color Yellow LAB [facility] Clear Clarity Abnormal Cloudy Alert LAB UGLUC Negative mg/dL Glucose, Urine Negative LAB UBIL Negative Bilirubin, Urine Negative LAB UKET Negative Ketones, Abnormal Urine Trace Alert LAB [facility] 1.005-1.030 Specific [place], Ur 1.023 LAB UHGB Negative Hemoglobin/Blood, Negative Ur LAB UPH 4.5-8.0 pH 5.0 LAB UPROT Negative mg/dL Protein, Abnormal Urine 30 Alert LAB UUROB Normal Urobilinogen Normal LAB UNITR Negative Nitrites Negative LAB ULKEST Negative Leukest Abnormal Trace Alert LAB UCOM Comments SEE COMMENT Result Comment: Microscopic Examination Performed LAB UWBC 0-5 /HPF WBC 0-5 LAB URBC 0-3 /HPF RBC 0-3 LAB UCAST 0 /LPF Abnormal Alert Cast SEE COMMENT Result Comment: 4-10 Hyaline Cast LAB UEPI /HPF Epithelial SEE Cells COMMENT Result Comment: Few Squamous Epithelial Cells LAB UMCOM Urine SEE Compa Comment COMMENT Result Comment: N/A Performed By: #### UA #### [facility] [address] [place], [place] [address] PROGRESS Observed: 04/19/2017 Status: COMPLETED Source: [place] 9:32 AM [facility] REPOSITORY HNO ID: [id number] Author: Fanta Coker Service: (none) Author Type: Physician Type: Progress Notes Filed: 04/19/2017 9:51 AM Note Text: DATE: ?10/25/2016 ? OPERATION: ?C5-6 and C6-7 anterior cervical diskectomy, partial corpectomy C6, use ?of operating microscope, decompression of spinal cord and nerve roots of C6 and C7 ?bilaterally, interbody fusion C5-6 and C6-7 using cortical cancellous allograft cage ?and placement of a cervical anterior plate (Antonio) ? Mrs Joshi is now almost 6 mos post-op Doing well from a cervical perspective Has long h/o buttock and b/l leg pain Has been treated by Dr. Mclean from [id number]; injections were helpful in the past Multiple allergies for which she takes prednisone and cyclosporine Exam: Obese Stable A/P: Buttock and leg pain; lumbar stenosis with L4-5 SL; neurologically intact She is not a ideal candidate for surgery given the steroid and cyclosporine use ? Given the success of previous YARITZA's, will refer back to Dr Mclean ? Hold on surgery Fanta Coker MD CNNURSE Observed: 04/19/2017 Status: COMPLETED Source: [place] 9:30 AM [facility] REPOSITORY Nurse Visit (SPNSMN) RALPH JOSHI ([id number]) 1955 F Date Time Provider Department 04/19/17 9:30 AM CHARLENE FERRELL (RN) SPNSMN During your visit today, we recorded the following information about you: Charlene Ferrell, RN, RN 04/19/2017 10:13 AM Signed Seen by Dr Coker, surgery cancelled. Charlene Ferrell, RN Referring Provider: FANTA COKER [[id number]] Allergies As of Date: 04/19/2017 Noted Allergy Reaction AVOCADO 09/10/2014 10 - Anaphylaxis BANANA 09/10/2014 10 - Anaphylaxis CARBINOXAMINE 09/17/2012 10 - Anaphylaxis YOSELIN SEED 08/28/2013 10 - Anaphylaxis CIPROFLOXACIN 04/11/2014 10 - Anaphylaxis CODEINE 01/12/2012 10 - Anaphylaxis CONTRAST DYE 05/17/2013 10 - Anaphylaxis Comments: To MRI and CT FISH 09/07/2014 10 - Anaphylaxis HYCODAN (HYDROCODONE-HOMATROPINE) 09/08/2011 10 - Anaphylaxis Comments: Face and throat swelling LATEX 01/21/2014 10 - Anaphylaxis IMTIAZ-SYNEPHRINE (PHENYLEPHRINE HCL)09/04/2014 10 - Anaphylaxis Comments: 10% eye drop NICKEL 01/07/2014 2 - Rash 4 - Hives 10 - Anaphylaxis NSAIDS (NON-STEROIDAL ANTI-INFLAM*08/16/2010 14 - Other: See Comments Comments: Kidney function drops; reversible kidney damage. OXYCODONE 08/28/2013 10 - Anaphylaxis PERIACTIN (CYPROHEPTADINE) 09/17/2012 10 - Anaphylaxis PNEUMOCOCCAL VACCINE 10/31/2014 10 - Anaphylaxis SHELLFISH 09/07/2014 10 - Anaphylaxis ZANTAC (RANITIDINE) 09/17/2012 10 - Anaphylaxis ATIVAN (LORAZEPAM) 08/28/2013 14 - Other: See Comments Comments: hallucination BEEF CONTAINING PRODUCTS 09/10/2014 2 - Rash CORN 05/03/2011 14 - Other: See Comments Comments: Feels like an asthma attack. EGGS (EGG) 03/08/2011 2 - Rash 11 - Vomiting EKG LEADS (ADHESIVE) 10/22/2012 2 - Rash Comments: Localized,only under the leads INFLUENZA VIRUS VACCINES 10/22/2012 12 - Shortness of Breath LISINOPRIL 04/20/2004 3 - Cough MILK 03/08/2011 2 - Rash 11 - Vomiting MOMETASONE 04/05/2017 10 - Anaphylaxis Comments: Per Dr. Salas she tolerates formoterol (on Breo at home) but is allergic to mometasone. Okayed by him to update. XOLAIR (OMALIZUMAB) 04/19/2012 12 - Shortness of Breath environmental [Other] 06/26/2007 14 - Other: See Comments Comments: Nasal congestion, brings on an asthma attack. surgical tape [Other] 11/10/2009 2 - Rash 7 - Swelling Comments: Oral rash, swelling of eyes, asthma attacks; per pateint report. Date Reviewed: 04/19/2017 Reviewed by: Sultana Shin Ma - Fully Assessed Reason for Visit: Patient Education [91] Cmt: cancel surgery Primary Visit Diagnosis:Preop testing [Z01.818] Other Visit Diagnosis:Lumbar spondylosis [M47.816] Order(s):[facility] PCR [SQSAPCR] Order #: [id number] Prescriptions as of 04/19/2017 Sig: PREGABALIN 150 MG CAPSULE Take 1 capsule by mouth twice* PREDNISONE 10 MG TABLET Take 2.5 tablets by mouth onc* Patient taking differently: Take 25 mg by mouth once mary ellen* ERGOCALCIFEROL (VITAMIN D2) 5* Take 1 capsule by mouth once * Patient taking differently: Take 50,000 Units by mouth on* AMLODIPINE 10 MG TABLET Take 10 mg by mouth once mary ellen* TURMERIC ROOT EXTRACT ORAL Take 1 tablet by mouth twice * COMPOUNDED PRESCRIPTION Nocturnal oximetry on room ai* NITROGLYCERIN 0.4 MG SUBLINGU* DISSOLVE 1 TABLET UNDER THE T* BUDESONIDE 0.5 MG/2 ML SUSPEN* Use 1 Ampule via nebulizer tw* CRISABOROLE 2 % TOPICAL OINTM* Apply to the hands twice daily COMPOUNDED PRESCRIPTION Please provide patient with n* FLUTICASONE 100 MCG-VILANTERO* Inhale 1 Inhalation as instru* CETIRIZINE 10 MG TABLET Take 10 mg by mouth once mary ellen* PIMECROLIMUS 1 % TOPICAL CREAM Apply twice daily to the hands SPIRONOLACTONE 50 MG TABLET Take 1 tablet by mouth twice * ONDANSETRON HCL 4 MG TABLET Take 1 tablet by mouth every * CHOLESTYRAMINE (BULK) POWDER Take 1 scoop by mouth once da* BUMETANIDE 0.5 MG TABLET Take 1 tablet by mouth once d* LANSOPRAZOLE 30 MG CAPSULE,DE* Take 1 capsule by mouth twice* AZELASTINE 0.15 % (205.5 MCG)* Use 1 Wilberforce in each nostril t* LEVALBUTEROL HFA 45 MCG/ACTUA* Inhale 1-2 Puffs as instructe* LEVALBUTEROL 1.25 MG/3 ML BRENDA* Use 1 Ampule via nebulizer ev* FLUTICASONE 50 MCG/ACTUATION * 1-2 sprays each side qd BENZONATATE 200 MG CAPSULE Take 200 mg by mouth three ti* LACTOBACILLUS RHAMNOSUS GG 10* Take 1 capsule by mouth twice* FAMOTIDINE 20 MG TABLET Take 1 tablet by mouth twice * Patient taking differently: Take 20 mg by mouth twice liam* DIPHENHYDRAMINE 50 MG CAPSULE Take 1 capsule by mouth every* EPINEPHRINE 0.3 MG/0.3 ML INJ* Inject 0.3 mL intramuscularly* AMOXICILLIN 250 MG CAPSULE Take 250 mg by mouth once liam* ZAFIRLUKAST 20 MG TABLET Take 1 tablet by mouth twice * DOXAZOSIN 2 MG TABLET Take 2 mg by mouth once daily. CYCLOSPORINE MODIFIED 50 MG C* Take 50 mg by mouth twice liam* ASCORBIC ACID (VITAMIN C) 500* Take 1 tablet by mouth once d* Problem List As Of Date 04/19/2017 Noted Resolved JOINT PAIN-ANKLE [M25.579] INVALID FOR*03/20/2014 Edema [R60.9] INVALID FOR*03/28/2016 Priority: I Adrenal nodule (HCC) [E27.9] INVALID FOR* More... Diarrhea [R19.7] INVALID FOR*10/15/2013 Hypertension [I10] INVALID FOR* Priority: E Excessive or frequent menstruation [N92.0] INVALID FOR*07/14/2011 Shortness of breath [R06.02] INVALID FOR*10/15/2013 Palpitations [R00.2] INVALID FOR*03/20/2014 Tachycardia, unspecified [R00.0] INVALID FOR*10/15/2013 More... Open wound site NOS [T14.8XXA] INVALID FOR*07/16/2011 Abdominal pain, right upper quadrant [R10.11] INVALID FOR*07/14/2011 More... Acute gastritis without mention of hemorrhage [*INVALID FOR*10/15/2013 Hematuria [599.7] INVALID FOR*07/14/2011 URGE INCONTINENCE [N39.41] INVALID FOR* FEMALE STRESS INCONTINENCE [N39.3] INVALID FOR* Scar, hypertrophic [L91.0] INVALID FOR*10/15/2013 Ovarian cyst [N83.209] INVALID FOR*07/06/2010 Cyst INVALID FOR*10/15/2013 Other specified pre-operative examination [Z01.*INVALID FOR*07/16/2011 Hirsutism [L68.0] INVALID FOR* Dysphagia [R13.10] INVALID FOR*03/20/2014 GERD (gastroesophageal reflux disease) [K21.9] INVALID FOR* Priority: D More... 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 Obesity (BMI 30.0-34.9) [E66.9] INVALID FOR* More... More... More... More... Idiopathic anaphylaxis [T78.2XXA] INVALID FOR* Priority: A More... Urticaria, idiopathic [L50.1] INVALID FOR*03/28/2016 More... Hyperlipidemia [E78.5] INVALID FOR* Impaired fasting glucose [R73.01] INVALID FOR* Recurrent chest pain [R07.9, G89.29] INVALID FOR*12/09/2014 Multinodular goiter [E04.2] INVALID FOR* More... CKD (chronic kidney disease) stage 3, GFR 30-59*INVALID FOR* Pain in joint, ankle and foot [M25.579] INVALID FOR*12/09/2014 More... More... Steroid-induced hyperglycemia [R73.9, T38.0X5A] INVALID FOR*03/28/2016 Priority: C Moderate persistent asthma without complication*INVALID FOR* Ulcerative colitis without complications (HCC) *INVALID FOR* Anaphylaxis [T78.2XXA] INVALID FOR*03/26/2015 More... Neck pain, bilateral [M54.2] INVALID FOR*03/28/2016 Essential hypertension with goal blood pressure*INVALID FOR*03/28/2016 Chronic nausea [R11.0] INVALID FOR* Lumbar radiculitis [M54.16] INVALID FOR*03/28/2016 Lumbar stenosis [M48.061] INVALID FOR*03/28/2016 Acquired spondylolisthesis [M43.10] INVALID FOR*03/28/2016 Cervical radiculitis [M54.12] INVALID FOR*03/28/2016 Cervical spondylosis with radiculopathy [M47.22]INVALID FOR*03/29/2017 Shoulder impingement [M75.40] INVALID FOR*03/28/2016 Anaphylaxis [T78.2XXA] INVALID FOR*03/28/2016 Tendonitis, tibialis [M76.829] INVALID FOR*05/09/2016 Lumbar stenosis [M48.061] INVALID FOR* Cervical radiculitis [M54.12] INVALID FOR*03/29/2017 Cervical herniated disc [M50.20] INVALID FOR*03/29/2017 Cervical stenosis of spine [M48.02] INVALID FOR* Cervical spondylosis with myelopathy [M47.12] INVALID FOR*03/29/2017 Cervical myelopathy (HCC) [G95.9] INVALID FOR*03/29/2017 Claustrophobia [F40.240] INVALID FOR* Ptosis of eyelid, bilateral [H02.403] INVALID FOR*03/29/2017 More... Lumbar spondylosis [M47.816] INVALID FOR* More... Preop testing [Z01.818] INVALID FOR* More... Anaphylaxis [T78.2XXA] INVALID FOR* Visit Notes: >> Charlene Ferrell RN MonApr 19, 2017 10:12 AM Status: Signed Seen by Dr Coker, surgery cancelled. Charlene Ferrell RN Encounter Status:Closed by CHARLENE FERRELL on 04/19/17 DIANNEOV Observed: 04/19/2017 Status: COMPLETED Source: [place] 9:00 AM [facility] REPOSITORY Office Visit (SPNSMN) RALPH JOSHI ([id number]) 1955 F Date Time Provider Department 04/19/17 9:00 AM [facility] COKER [facility] During your visit today, we recorded the following information about you: Pulse Respiration Blood pressure Weight 100/minute 18/minute 137/74 89.8 kg Height 1.626 m Fanta Coker MD 04/19/2017 9:51 AM Signed DATE: ?10/25/2016 ? OPERATION: ?C5-6 and C6-7 anterior cervical diskectomy, partial corpectomy C6, use ?of operating microscope, decompression of spinal cord and nerve roots of C6 and C7 ?bilaterally, interbody fusion C5-6 and C6-7 using cortical cancellous allograft cage ?and placement of a cervical anterior plate (Antonio) ? Mrs Joshi is now almost 6 mos post-op Doing well from a cervical perspective Has long h/o buttock and b/l leg pain Has been treated by Dr. Mclean from [phone]; injections were helpful in the past Multiple allergies for which she takes prednisone and cyclosporine Exam: Obese Stable A/P: Buttock and leg pain; lumbar stenosis with L4-5 SL; neurologically intact She is not a ideal candidate for surgery given the steroid and cyclosporine use ? Given the success of previous YARITZA's, will refer back to Dr Mclean ? Hold on surgery Fanta Coker MD Referring Provider: FANTA COKER [[id number]] Allergies As of Date: 04/19/2017 Noted Allergy Reaction AVOCADO 09/10/2014 10 - Anaphylaxis BANANA 09/10/2014 10 - Anaphylaxis CARBINOXAMINE 09/17/2012 10 - Anaphylaxis YOSELIN SEED 08/28/2013 10 - Anaphylaxis CIPROFLOXACIN 04/11/2014 10 - Anaphylaxis CODEINE 01/12/2012 10 - Anaphylaxis CONTRAST DYE 05/17/2013 10 - Anaphylaxis Comments: To MRI and CT FISH 09/07/2014 10 - Anaphylaxis HYCODAN (HYDROCODONE-HOMATROPINE) 09/08/2011 10 - Anaphylaxis Comments: Face and throat swelling LATEX 01/21/2014 10 - Anaphylaxis IMTIAZ-SYNEPHRINE (PHENYLEPHRINE HCL)09/04/2014 10 - Anaphylaxis Comments: 10% eye drop NICKEL 01/07/2014 2 - Rash 4 - Hives 10 - Anaphylaxis NSAIDS (NON-STEROIDAL ANTI-INFLAM*08/16/2010 14 - Other: See Comments Comments: Kidney function drops; reversible kidney damage. OXYCODONE 08/28/2013 10 - Anaphylaxis PERIACTIN (CYPROHEPTADINE) 09/17/2012 10 - Anaphylaxis PNEUMOCOCCAL VACCINE 10/31/2014 10 - Anaphylaxis SHELLFISH 09/07/2014 10 - Anaphylaxis ZANTAC (RANITIDINE) 09/17/2012 10 - Anaphylaxis ATIVAN (LORAZEPAM) 08/28/2013 14 - Other: See Comments Comments: hallucination BEEF CONTAINING PRODUCTS 09/10/2014 2 - Rash CORN 05/03/2011 14 - Other: See Comments Comments: Feels like an asthma attack. EGGS (EGG) 03/08/2011 2 - Rash 11 - Vomiting EKG LEADS (ADHESIVE) 10/22/2012 2 - Rash Comments: Localized,only under the leads INFLUENZA VIRUS VACCINES 10/22/2012 12 - Shortness of Breath LISINOPRIL 04/20/2004 3 - Cough MILK 03/08/2011 2 - Rash 11 - Vomiting MOMETASONE 04/05/2017 10 - Anaphylaxis Comments: Per Dr. Salas she tolerates formoterol (on Breo at home) but is allergic to mometasone. Okayed by him to update. XOLAIR (OMALIZUMAB) 04/19/2012 12 - Shortness of Breath environmental [Other] 06/26/2007 14 - Other: See Comments Comments: Nasal congestion, brings on an asthma attack. surgical tape [Other] 11/10/2009 2 - Rash 7 - Swelling Comments: Oral rash, swelling of eyes, asthma attacks; per pateint report. 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] Order(s):CONSULT TO [facility] [[id number]] Order #: [id number]: 1 Prescriptions as of 04/19/2017 Sig: PREGABALIN 150 MG CAPSULE Take 1 capsule by mouth twice* PREDNISONE 10 MG TABLET Take 2.5 tablets by mouth onc* Patient taking differently: Take 25 mg by mouth once mary ellen* ERGOCALCIFEROL (VITAMIN D2) 5* Take 1 capsule by mouth once * Patient taking differently: Take 50,000 Units by mouth on* AMLODIPINE 10 MG TABLET Take 10 mg by mouth once mary ellen* TURMERIC ROOT EXTRACT ORAL Take 1 tablet by mouth twice * COMPOUNDED PRESCRIPTION Nocturnal oximetry on room ai* NITROGLYCERIN 0.4 MG SUBLINGU* DISSOLVE 1 TABLET UNDER THE T* BUDESONIDE 0.5 MG/2 ML SUSPEN* Use 1 Ampule via nebulizer tw* CRISABOROLE 2 % TOPICAL OINTM* Apply to the hands twice daily COMPOUNDED PRESCRIPTION Please provide patient with n* FLUTICASONE 100 MCG-VILANTERO* Inhale 1 Inhalation as instru* CETIRIZINE 10 MG TABLET Take 10 mg by mouth once mary ellen* PIMECROLIMUS 1 % TOPICAL CREAM Apply twice daily to the hands SPIRONOLACTONE 50 MG TABLET Take 1 tablet by mouth twice * ONDANSETRON HCL 4 MG TABLET Take 1 tablet by mouth every * CHOLESTYRAMINE (BULK) POWDER Take 1 scoop by mouth once da* BUMETANIDE 0.5 MG TABLET Take 1 tablet by mouth once d* LANSOPRAZOLE 30 MG CAPSULE,DE* Take 1 capsule by mouth twice* AZELASTINE 0.15 % (205.5 MCG)* Use 1 Wilberforce in each nostril t* LEVALBUTEROL HFA 45 MCG/ACTUA* Inhale 1-2 Puffs as instructe* LEVALBUTEROL 1.25 MG/3 ML BRENDA* Use 1 Ampule via nebulizer ev* FLUTICASONE 50 MCG/ACTUATION * 1-2 sprays each side qd BENZONATATE 200 MG CAPSULE Take 200 mg by mouth three ti* LACTOBACILLUS RHAMNOSUS GG 10* Take 1 capsule by mouth twice* FAMOTIDINE 20 MG TABLET Take 1 tablet by mouth twice * Patient taking differently: Take 20 mg by mouth twice lima* DIPHENHYDRAMINE 50 MG CAPSULE Take 1 capsule by mouth every* EPINEPHRINE 0.3 MG/0.3 ML INJ* Inject 0.3 mL intramuscularly* AMOXICILLIN 250 MG CAPSULE Take 250 mg by mouth once liam* ZAFIRLUKAST 20 MG TABLET Take 1 tablet by mouth twice * DOXAZOSIN 2 MG TABLET Take 2 mg by mouth once daily. CYCLOSPORINE MODIFIED 50 MG C* Take 50 mg by mouth twice liam* ASCORBIC ACID (VITAMIN C) 500* Take 1 tablet by mouth once d* Problem List As Of Date 04/19/2017 Noted Resolved JOINT PAIN-ANKLE [M25.579] INVALID FOR*03/20/2014 Edema [R60.9] INVALID FOR*03/28/2016 Priority: I Adrenal nodule (HCC) [E27.9] INVALID FOR* More... Diarrhea [R19.7] INVALID FOR*10/15/2013 Hypertension [I10] INVALID FOR* Priority: E Excessive or frequent menstruation [N92.0] INVALID FOR*07/14/2011 Shortness of breath [R06.02] INVALID FOR*10/15/2013 Palpitations [R00.2] INVALID FOR*03/20/2014 Tachycardia, unspecified [R00.0] INVALID FOR*10/15/2013 More... Open wound site NOS [T14.8XXA] INVALID FOR*07/16/2011 Abdominal pain, right upper quadrant [R10.11] INVALID FOR*07/14/2011 More... Acute gastritis without mention of hemorrhage [*INVALID FOR*10/15/2013 Hematuria [599.7] INVALID FOR*07/14/2011 URGE INCONTINENCE [N39.41] INVALID FOR* FEMALE STRESS INCONTINENCE [N39.3] INVALID FOR* Scar, hypertrophic [L91.0] INVALID FOR*10/15/2013 Ovarian cyst [N83.209] INVALID FOR*07/06/2010 Cyst INVALID FOR*10/15/2013 Other specified pre-operative examination [Z01.*INVALID FOR*07/16/2011 Hirsutism [L68.0] INVALID FOR* Dysphagia [R13.10] INVALID FOR*03/20/2014 GERD (gastroesophageal reflux disease) [K21.9] INVALID FOR* Priority: D More... 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 Obesity (BMI 30.0-34.9) [E66.9] INVALID FOR* More... More... More... More... Idiopathic anaphylaxis [T78.2XXA] INVALID FOR* Priority: A More... Urticaria, idiopathic [L50.1] INVALID FOR*03/28/2016 More... Hyperlipidemia [E78.5] INVALID FOR* Impaired fasting glucose [R73.01] INVALID FOR* Recurrent chest pain [R07.9, G89.29] INVALID FOR*12/09/2014 Multinodular goiter [E04.2] INVALID FOR* More... CKD (chronic kidney disease) stage 3, GFR 30-59*INVALID FOR* Pain in joint, ankle and foot [M25.579] INVALID FOR*12/09/2014 More... More... Steroid-induced hyperglycemia [R73.9, T38.0X5A] INVALID FOR*03/28/2016 Priority: C Moderate persistent asthma without complication*INVALID FOR* Ulcerative colitis without complications (HCC) *INVALID FOR* Anaphylaxis [T78.2XXA] INVALID FOR*03/26/2015 More... Neck pain, bilateral [M54.2] INVALID FOR*03/28/2016 Essential hypertension with goal blood pressure*INVALID FOR*03/28/2016 Chronic nausea [R11.0] INVALID FOR* Lumbar radiculitis [M54.16] INVALID FOR*03/28/2016 Lumbar stenosis [M48.061] INVALID FOR*03/28/2016 Acquired spondylolisthesis [M43.10] INVALID FOR*03/28/2016 Cervical radiculitis [M54.12] INVALID FOR*03/28/2016 Cervical spondylosis with radiculopathy [M47.22]INVALID FOR*03/29/2017 Shoulder impingement [M75.40] INVALID FOR*03/28/2016 Anaphylaxis [T78.2XXA] INVALID FOR*03/28/2016 Tendonitis, tibialis [M76.829] INVALID FOR*05/09/2016 Lumbar stenosis [M48.061] INVALID FOR* Cervical radiculitis [M54.12] INVALID FOR*03/29/2017 Cervical herniated disc [M50.20] INVALID FOR*03/29/2017 Cervical stenosis of spine [M48.02] INVALID FOR* Cervical spondylosis with myelopathy [M47.12] INVALID FOR*03/29/2017 Cervical myelopathy (HCC) [G95.9] INVALID FOR*03/29/2017 Claustrophobia [F40.240] INVALID FOR* Ptosis of eyelid, bilateral [H02.403] INVALID FOR*03/29/2017 More... Lumbar spondylosis [M47.816] INVALID FOR* More... Preop testing [Z01.818] INVALID FOR* More... Anaphylaxis [T78.2XXA] INVALID FOR* Encounter Status:Closed by FANTA COKER MD on 04/19/17 CBC AND DIFFERENTIAL Collected: 04/19/2017 Status: F Source: [place] 8:40 AM [facility] [place] REPOSITORY TYPE CODE TESTS RESULT OUT OF REFERENCE UNITS RANGE LAB WBC 3.70-11.00 k/uL WBC 8.59 LAB RBC 3.90-5.20 m/uL RBC 4.79 LAB HGB 11.5-15.5 g/dL Hemoglobin 14.1 LAB HCT 36.0-46.0 % Hematocrit 42.6 LAB MCV 80.0-100.0 fL MCV 88.9 LAB MCH 26.0-34.0 pG MCH 29.4 LAB MCHC 30.5-36.0 g/dL MCHC 33.1 LAB RDWCV 11.5-15.0 % RDW-CV 14.3 LAB PLTCT 150-400 k/uL Platelet Count 218 LAB MPV 9.0-12.7 fL MPV 10.9 LAB ANEUT % Neut% 76.6 LAB AANEUT 1.45-7.50 k/uL Abs Neut 6.58 LAB ALYMP % Lymph% 7.6 LAB AALYMP 1.00-4.00 k/uL Low Abs Lymph 0.65 LAB AMONO % Potter% 12.2 LAB AAMONO <0.87 k/uL Abs Potter High 1.05 LAB AEOS % Eosin% 2.6 LAB AAEOS <0.46 k/uL Abs Eosin 0.22 LAB ABASO % Baso% 1.0 LAB AABASO <0.11 k/uL Abs Baso 0.09 LAB AUNRBC 0 /100 WBC NRBCs 0.0 LAB ABNRBC <0.01 k/uL Absolute nRBC <0.01 LAB DTYP DTYPE Auto Diff Performed By: #### CBCDIF, HBA1C #### [facility] [address] [id number] HEMOGLOBIN A1C Collected: 04/19/2017 Status: F Source: [place] 8:40 AM [facility] REPOSITORY TYPE CODE TESTS RESULT OUT OF REFERENCE UNITS RANGE LAB HGBA1C 4.3-5.6 % High Hemoglobin A1c 5.9 LAB HBA0 mg/dL Est. Average Glucose 123 Result Comment: eAG: (Estimated average glucose) is a calculated value from HgbA1c and is mechanical service representative of the average blood glucose level in the last 2-3 month period. Performed By: #### CBCDIF, HBA1C #### [facility] [employer] [address] [place] [address] TYPE AND SCR (30D) Collected: 04/19/2017 Status: F Source: [place] 8:38 AM [facility] REPOSITORY TYPE CODE TESTS RESULT OUT OF REFERENCE UNITS RANGE LAB %ABR B ABO/RH(D) POSITIVE LAB % Antibody NEG Screen Performed By: #### [id number] #### [address] [address] PROGRESS Observed: 04/19/2017 Status: COMPLETED Source: [place] 8:01 AM [facility] REPOSITORY HNO ID: [id number] Author: Sydnie Keller Rt Service: (none) Author Type: (none) Type: Progress Notes Filed: 04/19/2017 8:02 AM Note Text: Radiology Service Progress Note PATIENT NAME: Ralph Joshi DATE OF SERVICE: April 19, 2017 TIME: 8:01 AM PATIENT IDENTITY VERIFICATION COMPLETED USING TWO (2) METHODS: Patient confirmed name verbally and Date of . PATIENT GENDER DATA: Female. status: : No status: NO. PATIENT RELEVANT IMPLANT DATA REVIEWED: Not Applicable RADIOLOGY DEPARTMENT: General X-ray: Exam(s) Completed: Chest X-Ray PERIPHERAL IV DATA: Not applicable SIGNED BY: Sydnie Keller Rt April 19, 2017 8:01 AM XR CHEST 2V FRONTAL/LAT Observed: 04/19/2017 Status: F Source: [place] 7:58 AM [facility] REPOSITORY * * *Final Report* * * DATE OF EXAM: Apr 19 2017 7:58AM JIX [id number] - XR CHEST 2V FRONTAL/LAT / PROCEDURE REASON: multiple diagnoses * * * * Physician Interpretation * * * * EXAMINATION: CHEST RADIOGRAPH (2 VIEW FRONTAL and LATERAL) Clinical History: Encounter for other preprocedural examination Spondylosis without myelopathy or radiculopathy, lumbar region M: XC2_3 Comparison: 11/15/2016 RESULT: Lines, tubes, and devices: None. Lungs and pleura: No consolidation. Mild linear atelectases noted in both lung bases. No pleural effusion. Cardiomediastinal silhouette: Stable cardiomediastinal silhouette. Other: Lower anterior cervical spine fixation hardware again noted. No acute chest wall abnormality. IMPRESSION: No acute radiographic abnormality. 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 Will reschedule the appt when Pt calls back. CBC Collected: 04/12/2017 Status: F Source: [place] 11:59 AM [facility] REPOSITORY TYPE CODE TESTS RESULT OUT OF REFERENCE UNITS RANGE LAB WBC 3.70-11.00 k/uL WBC 7.04 LAB RBC 3.90-5.20 m/uL RBC 5.05 LAB HGB 11.5-15.5 g/dL Hemoglobin 14.8 LAB HCT 36.0-46.0 % High Hematocrit 46.1 LAB MCV 80.0-100.0 fL MCV 91.3 LAB MCH 26.0-34.0 pG MCH 29.3 LAB MCHC 30.5-36.0 g/dL MCHC 32.1 LAB RDWCV 11.5-15.0 % RDW-CV 13.9 LAB PLTCT 150-400 k/uL Platelet Count 264 LAB MPV 9.0-12.7 fL MPV 11.7 LAB ABSNUC <0.01 k/uL Absolute nRBC <0.01 Performed By: #### CBC, BUN, CRET1, HFP, UA, CYCLO #### [facility] [employer] [address] [place], [place] [address] BUN Collected: 04/12/2017 Status: F Source: [place] 11:59 AM [facility] REPOSITORY TYPE CODE TESTS RESULT OUT OF RANGE REFERENCE UNITS LAB BUN 7-21 mg/dL High BUN 24 Performed By: #### CBC, BUN, CRET1, HFP, UA, CYCLO #### [facility] [employer] [address], [place] [address] CREATININE Collected: 04/12/2017 Status: F Source: [place] 11:59 AM [facility] REPOSITORY TYPE CODE TESTS RESULT OUT OF REFERENCE UNITS RANGE LAB CRET 0.58-0.96 mg/dL High Creatinine 1.48 LAB GFRAA eGFR- 43 Amer. LAB GFRNAA . eGFR-All Other Races 36 Result Comment: eGFR (Estimated GFR) Units of measure: mL/min/1.73 meters squared eGFR is derived from the reexpressed MDRD Study equation using the following parameters: serum creatinine, age, gender and race. The creatinine assay has been calibrated to be traceable to IDMS. An eGFR <60 mL/min/1.73m2 for >3 months is consistent with chronic kidney disease. Refer to KDOQI guidelines for clinical interpretation. In patients with unstable renal function, e.g. those with acute kidney injury, the eGFR may not accurately reflect actual GFR. Performed By: #### CBC, BUN, CRET1, HFP, UA, CYCLO #### [facility] [employer] [address] [place], [place] [address] HEPATIC FUNCTN PANEL Collected: 04/12/2017 Status: F Source: [place] 11:59 AM [facility] REPOSITORY TYPE CODE TESTS RESULT OUT OF REFERENCE UNITS RANGE LAB ALB 3.9-4.9 g/dL Albumin 4.0 LAB TBIL 0.2-1.3 mg/dL Bilirubin, Total 0.6 LAB CBIL <0.2 mg/dL Bilirubin,Conjuga <0.2 bi LAB ALKP 32-117 U/L Alkaline Phosphatase 80 LAB AST 13-35 U/L AST 20 LAB ALT 7-38 U/L ALT 25 LAB TP 6.3-8.0 g/dL Protein, Total 6.5 Performed By: #### CBC, BUN, CRET1, HFP, UA, CYCLO #### [facility] [employer] [address] [place], [place] [address] URINALYSIS Collected: 04/12/2017 Status: F Source: [place] 11:59 AM [facility] REPOSITORY TYPE CODE TESTS RESULT OUT OF RANGE REFERENCE UNITS LAB UCOL Yellow Color Yellow LAB [facility] Clear Clarity Abnormal Cloudy Alert LAB UGLUC Negative mg/dL Glucose, Urine Negative LAB UBIL Negative Bilirubin, Urine Negative LAB UKET Negative Ketones, Urine Negative LAB USPG 1.005-1.030 Specific [place], Ur 1.021 LAB UHGB Negative Hemoglobin/Blood, Negative Ur LAB UPH 4.5-8.0 pH 5.0 LAB UPROT Negative mg/dL Protein, Urine Negative LAB UUROB Normal Urobilinogen Normal LAB UNITR Negative Nitrites Negative LAB ULKEST Negative Leukest Abnormal Trace Alert LAB UCOM Comments SEE COMMENT Result Comment: Microscopic Examination Performed LAB UWBC 0-5 /HPF WBC 0-5 LAB URBC 0-3 /HPF RBC 0-3 LAB UCAST 0 /LPF Abnormal Alert Cast SEE COMMENT Result Comment: 4-10 Hyaline Cast LAB UEPI /HPF Epithelial SEE Cells COMMENT Result Comment: Few Squamous Epithelial Cells LAB UMCOM Urine SEE Compa Comment COMMENT Result Comment: Result rechecked. Performed By: #### CBC, BUN, CRET1, HFP, UA, CYCLO #### [facility] [employer] [address] [place], [place] [address] CYCLOSPORINE Collected: 04/12/2017 Status: F Source: [place] 11:59 AM [facility] REPOSITORY TYPE CODE TESTS RESULT OUT OF REFERENCE UNITS RANGE LAB CYCLO 50-500 ng/mL Cyclosporine Low <30 Result Comment: Drug concentration below assay detection limit. Please confirm drug regimen and cancel any standing orders for this drug level if the drug has been discontinued. Optimal trough concentration: 50-500 ng/mL These reference ranges are provided as a general recommendation. Individualized target levels for a given patient will depend on many factors (including the type of organ transplant, time since transpl antation, concurrent medications, and other clinical factors), and should be assessed by those health care providers experienced in the management of immunosuppression. Reference ranges and high/low indicator flags are provided as general guidelines only. The treating physician must determine appropriate target levels/dosing based on the specific clinical situation. Test performed by chemiluminescent immunoassay using [employer]. Result rechecked. Performed By: #### CBC, BUN, CRET1, HFP, UA, CYCLO #### [facility] [employer] [address] [id number] HEMOGLOBIN A1C Collected: 04/12/2017 Status: F Source: [place] 11:53 AM [facility] REPOSITORY TYPE CODE TESTS RESULT OUT OF REFERENCE UNITS RANGE LAB HGBA1C 4.3-5.6 % High Hemoglobin A1c 5.9 LAB HBA0 mg/dL Est. Average Glucose 123 Result Comment: eAG: (Estimated average glucose) is a calculated value from HgbA1c and is mechanical service representative of the average blood glucose level in the last 2-3 month period. Performed By: #### HBA1C #### [place] [id number] [place] [id number] BASIC METABOLIC PANL Collected: 04/12/2017 Status: F Source: [place] 11:52 AM [facility] REPOSITORY TYPE CODE TESTS RESULT OUT OF REFERENCE UNITS RANGE LAB GLU 74-99 mg/dL Glucose 85 Result Comment: The [place] [employer] (ADA) provides guidance for cutoff values for fasting glucose and random glucose. The ADA defines fasting as no caloric intake for at least 8 hours. Fas ting plasma glucose results between 100 to 125 mg/dL indicate increased risk for diabetes (prediabetes). Fasting plasma glucose results greater than or equal to 126 mg/dL meet the criteria for diagnosis of diabetes. In the absence of unequivocal hyperglycemia, results should be confirmed by repeat testing. In a patient with classic symptoms of hyperglycemia or hyperglycemic crisis, random plasma glucose results greater than or equal to 200 mg/dL meet the criteria for diagnosis of diabetes. Reference: Standards of Medical Care in Diabetes 2016, [place] [employer]. Diabetes Care. 2016.39(Suppl 1). LAB BUN 7-21 mg/dL BUN High 24 LAB CRET 0.58-0.96 mg/dL Creatinine High 1.51 LAB NA 136-144 mmol/L Sodium 142 LAB K 3.7-5.1 mmol/L Potassium 4.3 LAB CL 97-105 mmol/L Chloride High 106 LAB CO2 22-30 mmol/L CO2 24 LAB AGAP 9-18 mmol/L Anion Gap 12 LAB CA 8.5-10.2 mg/dL Calcium, Total 9.2 LAB GFRAA eGFR- Amer. 42 LAB GFRNAA . eGFR-All Other Races 35 Result Comment: eGFR (Estimated GFR) Units of measure: mL/min/1.73 meters squared eGFR is derived from the reexpressed MDRD Study equation using the following parameters: serum creatinine, age, gender and race. The creatinine assay has been calibrated to be traceable to IDMS. An eGFR <60 mL/min/1.73m2 for >3 months is consistent with chronic kidney disease. Refer to KDOQI guidelines for clinical interpretation. In patients with unstable renal function, e.g. those with acute kidney injury, the eGFR may not accurately reflect actual GFR. Performed By: #### BMP, IRON, FERR, B12 #### [facility] [employer] [address] [place] [address] IRON AND TIBC Collected: 04/12/2017 Status: F Source: [place] 11:52 AM [facility] REPOSITORY TYPE CODE TESTS RESULT OUT OF REFERENCE UNITS RANGE LAB IRN 41-186 ug/dL Iron 144 LAB TIBC 232-386 ug/dL TIBC 344 LAB SAT 15-57 % Transferrin Saturatn 42 Performed By: #### BMP, IRON, FERR, B12 #### [facility] [employer] [address] [place] [address] FERRITIN Collected: 04/12/2017 Status: F Source: [place] 11:52 AM [facility] REPOSITORY TYPE CODE TESTS RESULT OUT OF REFERENCE UNITS RANGE LAB FERR 14.7-205.1 ng/mL Ferritin 48.0 Performed By: #### BMP, IRON, FERR, B12 #### [facility] [address] [place], [place] [address] VITAMIN B12 Collected: 04/12/2017 Status: F Source: [place] 11:52 AM [facility] REPOSITORY TYPE CODE TESTS RESULT OUT OF REFERENCE UNITS RANGE LAB B12 232-1245 pg/mL Low Vitamin B12 226 Performed By: #### BMP, IRON, FERR, B12 #### [facility] [employer] [address] [place], [place] [address] PROGRESS Observed: 04/11/2017 Status: COMPLETED Source: [place] 9:38 AM [facility] REPOSITORY HNO ID: [id number] Author: Carlos A Alonso Psr Service: (none) Author Type: (none) Type: Progress Notes Filed: 04/11/2017 9:41 AM Note Text: There are no openings w Dr. Caldwell until mid Apr. Called Pt at the home # and lmtcb to reschedule the follow up w the [facility] or another provider this week. Called Pt at the cell and the vm box is full. Unable to leave message. PROGRESS Observed: 04/07/2017 Status: COMPLETED Source: [place] 2:30 PM [facility] REPOSITORY HNO ID: [id number] Author: Jovanna Spence Service: (none) Author Type: Physician [employer] Type: Progress Notes Filed: 04/07/2017 2:51 PM Note Text: [facility], 04/07/17: INTERVAL HISTORY: The patient is here for follow up of asthma. Since the last visit 02/23/17, patient relates she was seen in the ED and admitted secondary to anaphylactic response to eye drops. Patient's asthma remained well controlled through admission. The patient has been compliant with therapy recommended at the last visit. Continues with cough. Clear/white sputum. No hemoptysis. No pleuritic chest pain. Wheezing at times. Stable dyspnea with exertion. Occasional nocturnal awakenings. 4 times daily nebulizer treatments. Side effects from medications: none. PMH: Reviewed with patient today. No changes. FAMH: Reviewed with patient today. No changes. SOCH: No changes. ROS: General: Generally feels good. Eyes: No blurred vision, eye pain. Ears, nose, throat: Post nasal drip, rhinorrhea. No purulent nasal discharge. No hoarseness. Cardiac: No angina, edema, orthopnea, paroxysmal nocturnal dyspnea, palpitations. GI: No heartburn, dysphagia. Uro/CHOKE SETTER: No dysuria, hesitancy. Neuro/Psych: No headache, focal weakness, tremor. Sleeps well. Skin: No rash. Otherwise negative. Immunization History Administered Date(s) Administered Influenza Vaccine, Split-Non Spec 2006 02/20/2008 01/15/2009 01/19/2010 01/22/2011 03/15/2012 Pneumovax 06/27/2008 Deferred Date(s) Deferred Tdap (Age 7+) 06/19/2014 Allergies were verified and updated, and medications were reconciled with the patient at this visit. PHYSICAL EXAMINATION: BP 140/86 Pulse 89 Resp 14 Ht 5' 3 (1.60m) Wt 205 lb (93.0kg) SpO2 96% LMP 08/04/2013 BMI 36.32 kg/(m2). Gen: No acute distress. Cooperative with examination. ENT: Sclerae clear. EOMI. Nares clear. Oral hygeine good. No sign of oral thrush. Resp: No stridor, accessory respiratory muscle use, supra- sternal or intercostal retractions. No crackles, wheezes, rubs. CV: Regular rythm. Heart tones normal. Radial pulses normal. Abd: Non distended. MSK: No kyphoscoliosis, joint deformities. Ext: Warm and well perfused. No clubbing, cyanosis, edema. Skin: Color normal. Texture normal. No rash, eczema, urticaria. Neuro: Mental status normal. Affect normal. Muscle tone normal. No tremor. DATA REVIEW: DATE: 04/07/17 11/01/16 04/30/15 08/27/14 FVC 2.39 (76 % pred) 2.65 (80 % pred) 2.50 (78 % pred) 2.59 (77 % pred) FEV1 1.96 (80 % pred) 2.03 (79 % pred) 1.97 (79 % pred) 2.05 (78 % pred) FEV1/FVC 0.82 0.77 0.79 0.79 Exhaled nitric oxide (Martha), 04/07/17: 37 (normal < 25). ECHO, 02/24/17 RIGHT VENTRICLE The right ventricle is normal in size. Right ventricular systolic function is normal. RV systolic tissue Doppler velocity ?is 13.0 cm/s. Estimated right ventricular systolic pressure is not reported due to an insufficient tricuspid regurgitation signal. ? LEFT ATRIUM The left atrial cavity is normal in size. ? RIGHT ATRIUM The right atrial cavity is normal in size. Inferior Vena Cava: The inferior vena cava appears small measuring 1.2 cm. The vessel decreases greater than 50 percent with inspiration. MITRAL VALVE There is trivial mitral valve regurgitation. The pressure half time is 51 msec. The peak mitral E/A ratio is 0.55. The mitral flow deceleration time is 175 msec. ? TRICUSPID VALVE There is trivial tricuspid valve regurgitation. ? AORTIC VALVE There is no aortic valve stenosis. There is no aortic valve regurgitation. Tricuspid aortic valve. ? PULMONIC VALVE There is trivial pulmonic valve regurgitation. ? AORTA The visualized aorta is normal in size. Measurements - Sinus 2.8 cm. Sinotubular junction 2.4 cm. Mid ascending aorta 3.5 cm. PULMONARY ARTERIES The pulmonary arteries are unseen or not interrogated. ? PERICARDIUM There is no pericardial effusion. There is an epicardial fat pad. ? CONCLUSIONS: - Exam indication: Shortness of Breath - The left ventricle is normal in size. Left ventricular systolic function is normal. EF = 55 ? 5% (visual est.) Normal left ventricular diastolic function. - The right ventricle is normal in size. Right ventricular systolic function is normal. - Exam was compared with the prior echocardiographic exam performed on 11/06/2015. IMPRESSION and RECOMMENDATIONS: Severe-persistent asthma Continue therapies as prescribed. - Nebulized treatment four times daily with Budesonide twice daily. - Xopenex four times daily. Hold Xopenex prior to lung function testing at next office visit. - Nocturnal oximetry. - Follow up in 3 months with nitric oxide, sooner if needed. - I reviewed the pathophysiology of asthma, NIH guidelines for evaluation and management, and mechanisms of action and side effects of medical therapy (ICS, bronchodilators) with the patient. I addressed the questions of the patient, and she expressed understanding and acceptance of my answers. Jovanna Spence PA-C [facility] [address] [place] [address] CNOV Observed: 04/07/2017 Status: COMPLETED Source: [place] 2:30 PM [facility] REPOSITORY Office Visit (PULMWS) RALPH JOSHI ([id number]) 1955 F Date Time Provider Department 04/07/17 2:30 PM JOVANNA SPENCE PUL[facility]at[facility] During your visit today, we recorded the following information about you: Pulse Respiration Blood pressure Weight 89/minute 14/minute 140/86 93 kg Height 1.6 m Jovanna Spence PA-C 04/07/2017 2:51 PM Signed [facility], 04/07/17: INTERVAL HISTORY: The patient is here for follow up of asthma. Since the last visit 02/23/17, patient relates she was seen in the ED and admitted secondary to anaphylactic response to eye drops. Patient's asthma remained well controlled through admission. The patient has been compliant with therapy recommended at the last visit. Continues with cough. Clear/white sputum. No hemoptysis. No pleuritic chest pain. Wheezing at times. Stable dyspnea with exertion. Occasional nocturnal awakenings. 4 times daily nebulizer treatments. Side effects from medications: none. PMH: Reviewed with patient today. No changes. FAMH: Reviewed with patient today. No changes. SOCH: No changes. ROS: General: Generally feels good. Eyes: No blurred vision, eye pain. Ears, nose, throat: Post nasal drip, rhinorrhea. No purulent nasal discharge. No hoarseness. Cardiac: No angina, edema, orthopnea, paroxysmal nocturnal dyspnea, palpitations. GI: No heartburn, dysphagia. Uro/CHOKE SETTER: No dysuria, hesitancy. Neuro/Psych: No headache, focal weakness, tremor. Sleeps well. Skin: No rash. Otherwise negative. Immunization History Administered Date(s) Administered Influenza Vaccine, Split-Non Spec 2006 02/20/2008 01/15/2009 01/19/2010 01/22/2011 03/15/2012 Pneumovax 06/27/2008 Deferred Date(s) Deferred Tdap (Age 7+) 06/19/2014 Allergies were verified and updated, and medications were reconciled with the patient at this visit. PHYSICAL EXAMINATION: BP 140/86 Pulse 89 Resp 14 Ht 5' 3ANDquot; (1.60m) Wt 205 lb (93.0kg) SpO2 96% LMP 08/04/2013 BMI 36.32 kg/(m2). Gen: No acute distress. Cooperative with examination. ENT: Sclerae clear. EOMI. Nares clear. Oral hygeine good. No sign of oral thrush. Resp: No stridor, accessory respiratory muscle use, supra- sternal or intercostal retractions. No crackles, wheezes, rubs. CV: Regular rythm. Heart tones normal. Radial pulses normal. Abd: Non distended. MSK: No kyphoscoliosis, joint deformities. Ext: Warm and well perfused. No clubbing, cyanosis, edema. Skin: Color normal. Texture normal. No rash, eczema, urticaria. Neuro: Mental status normal. Affect normal. Muscle tone normal. No tremor. DATA REVIEW: DATE: 04/07/17 11/01/16 04/30/15 08/27/14 FVC 2.39 (76 % pred) 2.65 (80 % pred) 2.50 (78 % pred) 2.59 (77 % pred) FEV1 1.96 (80 % pred) 2.03 (79 % pred) 1.97 (79 % pred) 2.05 (78 % pred) FEV1/FVC 0.82 0.77 0.79 0.79 Exhaled nitric oxide (Martha), 04/07/17: 37 (normal ANDlt; 25). ECHO, 02/24/17 RIGHT VENTRICLE The right ventricle is normal in size. Right ventricular systolic function is normal. RV systolic tissue Doppler velocity ?is 13.0 cm/s. Estimated right ventricular systolic pressure is not reported due to an insufficient tricuspid regurgitation signal. ? LEFT ATRIUM The left atrial cavity is normal in size. ? RIGHT ATRIUM The right atrial cavity is normal in size. Inferior Vena Cava: The inferior vena cava appears small measuring 1.2 cm. The vessel decreases greater than 50 percent with inspiration. MITRAL VALVE There is trivial mitral valve regurgitation. The pressure half time is 51 msec. The peak mitral E/A ratio is 0.55. The mitral flow deceleration time is 175 msec. ? TRICUSPID VALVE There is trivial tricuspid valve regurgitation. ? AORTIC VALVE There is no aortic valve stenosis. There is no aortic valve regurgitation. Tricuspid aortic valve. ? PULMONIC VALVE There is trivial pulmonic valve regurgitation. ? AORTA The visualized aorta is normal in size. Measurements - Sinus 2.8 cm. Sinotubular junction 2.4 cm. Mid ascending aorta 3.5 cm. PULMONARY ARTERIES The pulmonary arteries are unseen or not interrogated. ? PERICARDIUM There is no pericardial effusion. There is an epicardial fat pad. ? CONCLUSIONS: - Exam indication: Shortness of Breath - The left ventricle is normal in size. Left ventricular systolic function is normal. EF = 55 ? 5% (visual est.) Normal left ventricular diastolic function. - The right ventricle is normal in size. Right ventricular systolic function is normal. - Exam was compared with the prior echocardiographic exam performed on 11/06/2015. IMPRESSION and RECOMMENDATIONS: Severe-persistent asthma Continue therapies as prescribed. - Nebulized treatment four times daily with Budesonide twice daily. - Xopenex four times daily. Hold Xopenex prior to lung function testing at next office visit. - Nocturnal oximetry. - Follow up in 3 months with nitric oxide, sooner if needed. - I reviewed the pathophysiology of asthma, NIH guidelines for evaluation and management, and mechanisms of action and side effects of medical therapy (ICS, bronchodilators) with the patient. I addressed the questions of the patient, and she expressed understanding and acceptance of my answers. Jovanna Spence PA-C [facility] [address] [address] Jovanna Spence PA-C 04/07/2017 2:44 PM Addendum Severe-persistent asthma Continue therapies as prescribed. - Nebulized treatment four times daily with Budesonide twice daily. - Xopenex four times daily. - Nocturnal oximetry. - Follow up in 3 months with nitric oxide, sooner if needed. Referring Provider: JOVANNA SPENCE [[id number]] Allergies As of Date: 04/07/2017 Noted Allergy Reaction AVOCADO 09/10/2014 10 - Anaphylaxis BANANA 09/10/2014 10 - Anaphylaxis CARBINOXAMINE 09/17/2012 10 - Anaphylaxis YOSELIN SEED 08/28/2013 10 - Anaphylaxis CIPROFLOXACIN 04/11/2014 10 - Anaphylaxis CODEINE 01/12/2012 10 - Anaphylaxis CONTRAST DYE 05/17/2013 10 - Anaphylaxis Comments: To MRI and CT FISH 09/07/2014 10 - Anaphylaxis HYCODAN (HYDROCODONE-HOMATROPINE) 09/08/2011 10 - Anaphylaxis Comments: Face and throat swelling LATEX 01/21/2014 10 - Anaphylaxis IMTIAZ-SYNEPHRINE (PHENYLEPHRINE HCL)09/04/2014 10 - Anaphylaxis Comments: 10% eye drop NICKEL 01/07/2014 2 - Rash 4 - Hives 10 - Anaphylaxis NSAIDS (NON-STEROIDAL ANTI-INFLAM*08/16/2010 14 - Other: See Comments Comments: Kidney function drops; reversible kidney damage. OXYCODONE 08/28/2013 10 - Anaphylaxis PERIACTIN (CYPROHEPTADINE) 09/17/2012 10 - Anaphylaxis PNEUMOCOCCAL VACCINE 10/31/2014 10 - Anaphylaxis SHELLFISH 09/07/2014 10 - Anaphylaxis ZANTAC (RANITIDINE) 09/17/2012 10 - Anaphylaxis ATIVAN (LORAZEPAM) 08/28/2013 14 - Other: See Comments Comments: hallucination BEEF CONTAINING PRODUCTS 09/10/2014 2 - Rash CORN 05/03/2011 14 - Other: See Comments Comments: Feels like an asthma attack. EGGS (EGG) 03/08/2011 2 - Rash 11 - Vomiting EKG LEADS (ADHESIVE) 10/22/2012 2 - Rash Comments: Localized,only under the leads INFLUENZA VIRUS VACCINES 10/22/2012 12 - Shortness of Breath LISINOPRIL 04/20/2004 3 - Cough MILK 03/08/2011 2 - Rash 11 - Vomiting MOMETASONE 04/05/2017 10 - Anaphylaxis Comments: Per Dr. Salas she tolerates formoterol (on Breo at home) but is allergic to mometasone. Okayed by him to update. XOLAIR (OMALIZUMAB) 04/19/2012 12 - Shortness of Breath environmental [Other] 06/26/2007 14 - Other: See Comments Comments: Nasal congestion, brings on an asthma attack. surgical tape [Other] 11/10/2009 2 - Rash 7 - Swelling Comments: Oral rash, swelling of eyes, asthma attacks; per pateint report. Date Reviewed: 04/07/2017 Reviewed by: Jovanna Spence - Fully Assessed Reason for Visit: Established Patient [175] Cmt: asthma follow up Primary Visit Diagnosis:Moderate persistent asthma without complication [J45.40] Order(s):NITRIC OXIDE, EXHALED [[id number]] Order #: [id number] FUTURE Prescriptions as of 04/07/2017 Sig: PREDNISONE 10 MG TABLET Take 2.5 tablets by mouth onc* Patient taking differently: Take 25 mg by mouth once mary ellen* ERGOCALCIFEROL (VITAMIN D2) 5* Take 1 capsule by mouth once * Patient taking differently: Take 50,000 Units by mouth on* AMLODIPINE 10 MG TABLET Take 10 mg by mouth once mary ellen* TURMERIC ROOT EXTRACT ORAL Take 1 tablet by mouth twice * COMPOUNDED PRESCRIPTION Nocturnal oximetry on room ai* NITROGLYCERIN 0.4 MG SUBLINGU* DISSOLVE 1 TABLET UNDER THE T* BUDESONIDE 0.5 MG/2 ML SUSPEN* Use 1 Ampule via nebulizer tw* CRISABOROLE 2 % TOPICAL OINTM* Apply to the hands twice daily COMPOUNDED PRESCRIPTION Please provide patient with n* FLUTICASONE 100 MCG-VILANTERO* Inhale 1 Inhalation as instru* PREGABALIN 150 MG CAPSULE Take 1 capsule by mouth twice* CETIRIZINE 10 MG TABLET Take 10 mg by mouth once mary ellen* PIMECROLIMUS 1 % TOPICAL CREAM Apply twice daily to the hands SPIRONOLACTONE 50 MG TABLET Take 1 tablet by mouth twice * ONDANSETRON HCL 4 MG TABLET Take 1 tablet by mouth every * CHOLESTYRAMINE (BULK) POWDER Take 1 scoop by mouth once da* BUMETANIDE 0.5 MG TABLET Take 1 tablet by mouth once d* LANSOPRAZOLE 30 MG CAPSULE,DE* Take 1 capsule by mouth twice* AZELASTINE 0.15 % (205.5 MCG)* Use 1 Wilberforce in each nostril t* LEVALBUTEROL HFA 45 MCG/ACTUA* Inhale 1-2 Puffs as instructe* LEVALBUTEROL 1.25 MG/3 ML BRENDA* Use 1 Ampule via nebulizer ev* FLUTICASONE 50 MCG/ACTUATION * 1-2 sprays each side qd BENZONATATE 200 MG CAPSULE Take 200 mg by mouth three ti* LACTOBACILLUS RHAMNOSUS GG 10* Take 1 capsule by mouth twice* FAMOTIDINE 20 MG TABLET Take 1 tablet by mouth twice * Patient taking differently: Take 20 mg by mouth twice liam* DIPHENHYDRAMINE 50 MG CAPSULE Take 1 capsule by mouth every* EPINEPHRINE 0.3 MG/0.3 ML INJ* Inject 0.3 mL intramuscularly* AMOXICILLIN 250 MG CAPSULE Take 250 mg by mouth once liam* ZAFIRLUKAST 20 MG TABLET Take 1 tablet by mouth twice * DOXAZOSIN 2 MG TABLET Take 2 mg by mouth once daily. CYCLOSPORINE MODIFIED 50 MG C* Take 50 mg by mouth twice liam* ASCORBIC ACID (VITAMIN C) 500* Take 1 tablet by mouth once d* Problem List As Of Date 04/07/2017 Noted Resolved JOINT PAIN-ANKLE [M25.579] INVALID FOR*03/20/2014 Edema [R60.9] INVALID FOR*03/28/2016 Priority: I Adrenal nodule (HCC) [E27.9] INVALID FOR* More... Diarrhea [R19.7] INVALID FOR*10/15/2013 Hypertension [I10] INVALID FOR* Priority: E Excessive or frequent menstruation [N92.0] INVALID FOR*07/14/2011 Shortness of breath [R06.02] INVALID FOR*10/15/2013 Palpitations [R00.2] INVALID FOR*03/20/2014 Tachycardia, unspecified [R00.0] INVALID FOR*10/15/2013 More... Open wound site NOS [T14.8XXA] INVALID FOR*07/16/2011 Abdominal pain, right upper quadrant [R10.11] INVALID FOR*07/14/2011 More... Acute gastritis without mention of hemorrhage [*INVALID FOR*10/15/2013 Hematuria [599.7] INVALID FOR*07/14/2011 URGE INCONTINENCE [N39.41] INVALID FOR* FEMALE STRESS INCONTINENCE [N39.3] INVALID FOR* Scar, hypertrophic [L91.0] INVALID FOR*10/15/2013 Ovarian cyst [N83.209] INVALID FOR*07/06/2010 Cyst INVALID FOR*10/15/2013 Other specified pre-operative examination [Z01.*INVALID FOR*07/16/2011 Hirsutism [L68.0] INVALID FOR* Dysphagia [R13.10] INVALID FOR*03/20/2014 GERD (gastroesophageal reflux disease) [K21.9] INVALID FOR* Priority: D More... 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 Obesity (BMI 30.0-34.9) [E66.9] INVALID FOR* More... More... More... More... Idiopathic anaphylaxis [T78.2XXA] INVALID FOR* Priority: A More... Urticaria, idiopathic [L50.1] INVALID FOR*03/28/2016 More... Hyperlipidemia [E78.5] INVALID FOR* Impaired fasting glucose [R73.01] INVALID FOR* Recurrent chest pain [R07.9, G89.29] INVALID FOR*12/09/2014 Multinodular goiter [E04.2] INVALID FOR* More... CKD (chronic kidney disease) stage 3, GFR 30-59*INVALID FOR* Pain in joint, ankle and foot [M25.579] INVALID FOR*12/09/2014 More... More... Steroid-induced hyperglycemia [R73.9, T38.0X5A] INVALID FOR*03/28/2016 Priority: C Moderate persistent asthma without complication*INVALID FOR* Ulcerative colitis without complications (HCC) *INVALID FOR* Anaphylaxis [T78.2XXA] INVALID FOR*03/26/2015 More... Neck pain, bilateral [M54.2] INVALID FOR*03/28/2016 Essential hypertension with goal blood pressure*INVALID FOR*03/28/2016 Chronic nausea [R11.0] INVALID FOR* Lumbar radiculitis [M54.16] INVALID FOR*03/28/2016 Lumbar stenosis [M48.061] INVALID FOR*03/28/2016 Acquired spondylolisthesis [M43.10] INVALID FOR*03/28/2016 Cervical radiculitis [M54.12] INVALID FOR*03/28/2016 Cervical spondylosis with radiculopathy [M47.22]INVALID FOR*03/29/2017 Shoulder impingement [M75.40] INVALID FOR*03/28/2016 Anaphylaxis [T78.2XXA] INVALID FOR*03/28/2016 Tendonitis, tibialis [M76.829] INVALID FOR*05/09/2016 Lumbar stenosis [M48.061] INVALID FOR* Cervical radiculitis [M54.12] INVALID FOR*03/29/2017 Cervical herniated disc [M50.20] INVALID FOR*03/29/2017 Cervical stenosis of spine [M48.02] INVALID FOR* Cervical spondylosis with myelopathy [M47.12] INVALID FOR*03/29/2017 Cervical myelopathy (HCC) [G95.9] INVALID FOR*03/29/2017 Claustrophobia [F40.240] INVALID FOR* Ptosis of eyelid, bilateral [H02.403] INVALID FOR*03/29/2017 More... Lumbar spondylosis [M47.816] INVALID FOR* More... Preop testing [Z01.818] INVALID FOR* More... Anaphylaxis [T78.2XXA] INVALID FOR* Other instructions from your clinician: Severe-persistent asthma Continue therapies as prescribed. - Nebulized treatment four times daily with Budesonide twice daily. - Xopenex four times daily. - Nocturnal oximetry. - Follow up in 3 months with nitric oxide, sooner if needed. Disposition: Return in about 3 months (around 07/06/2017). Follow-up and Disposition History Recorded Encounter Status:Closed by JOVANNA SPENCE on 04/07/17 OBSOLETE Observed: 04/07/2017 Status: COMPLETED Source: [place] 2:00 PM [facility] REPOSITORY Procedure (PULMWS) RALPH JOSHI ([id number]) 1955 F Date Time Provider Department 04/07/17 2:00 PM RESPIRATORY THERAPIST [facility] During your visit today, we recorded the following information about you: Pulse Respiration Weight Height 89/minute 14/minute 93 kg 1.6 m Referring Provider: JOVANNA SPENCE [[id number]] Allergies As of Date: 04/07/2017 Noted Allergy Reaction AVOCADO 09/10/2014 10 - Anaphylaxis BANANA 09/10/2014 10 - Anaphylaxis CARBINOXAMINE 09/17/2012 10 - Anaphylaxis YOSELIN SEED 08/28/2013 10 - Anaphylaxis CIPROFLOXACIN 04/11/2014 10 - Anaphylaxis CODEINE 01/12/2012 10 - Anaphylaxis CONTRAST DYE 05/17/2013 10 - Anaphylaxis Comments: To MRI and CT FISH 09/07/2014 10 - Anaphylaxis HYCODAN (HYDROCODONE-HOMATROPINE) 09/08/2011 10 - Anaphylaxis Comments: Face and throat swelling LATEX 01/21/2014 10 - Anaphylaxis IMTIAZ-SYNEPHRINE (PHENYLEPHRINE HCL)09/04/2014 10 - Anaphylaxis Comments: 10% eye drop NICKEL 01/07/2014 2 - Rash 4 - Hives 10 - Anaphylaxis NSAIDS (NON-STEROIDAL ANTI-INFLAM*08/16/2010 14 - Other: See Comments Comments: Kidney function drops; reversible kidney damage. OXYCODONE 08/28/2013 10 - Anaphylaxis PERIACTIN (CYPROHEPTADINE) 09/17/2012 10 - Anaphylaxis PNEUMOCOCCAL VACCINE 10/31/2014 10 - Anaphylaxis SHELLFISH 09/07/2014 10 - Anaphylaxis ZANTAC (RANITIDINE) 09/17/2012 10 - Anaphylaxis ATIVAN (LORAZEPAM) 08/28/2013 14 - Other: See Comments Comments: hallucination BEEF CONTAINING PRODUCTS 09/10/2014 2 - Rash CORN 05/03/2011 14 - Other: See Comments Comments: Feels like an asthma attack. EGGS (EGG) 03/08/2011 2 - Rash 11 - Vomiting EKG LEADS (ADHESIVE) 10/22/2012 2 - Rash Comments: Localized,only under the leads INFLUENZA VIRUS VACCINES 10/22/2012 12 - Shortness of Breath LISINOPRIL 04/20/2004 3 - Cough MILK 03/08/2011 2 - Rash 11 - Vomiting MOMETASONE 04/05/2017 10 - Anaphylaxis Comments: Per Dr. Salas she tolerates formoterol (on Breo at home) but is allergic to mometasone. Okayed by him to update. XOLAIR (OMALIZUMAB) 04/19/2012 12 - Shortness of Breath environmental [Other] 06/26/2007 14 - Other: See Comments Comments: Nasal congestion, brings on an asthma attack. surgical tape [Other] 11/10/2009 2 - Rash 7 - Swelling Comments: Oral rash, swelling of eyes, asthma attacks; per pateint report. Date Reviewed: 04/06/2017 Reviewed by: Lilia Cruz (Rn) JONATHAN Louis - Fully Assessed Reason for Visit: Spirometry [191] Visit Diagnosis:Moderate persistent asthma without complication [J45.40] Order(s):SPIROMETRY BASELINE ONLY [3436055] Order #: [id number]. #:[id number] Prescriptions as of 04/07/2017 Sig: PREDNISONE 10 MG TABLET Take 2.5 tablets by mouth onc* Patient taking differently: Take 25 mg by mouth once mary ellen* ERGOCALCIFEROL (VITAMIN D2) 5* Take 1 capsule by mouth once * Patient taking differently: Take 50,000 Units by mouth on* AMLODIPINE 10 MG TABLET Take 10 mg by mouth once mary ellen* TURMERIC ROOT EXTRACT ORAL Take 1 tablet by mouth twice * COMPOUNDED PRESCRIPTION Nocturnal oximetry on room ai* NITROGLYCERIN 0.4 MG SUBLINGU* DISSOLVE 1 TABLET UNDER THE T* BUDESONIDE 0.5 MG/2 ML SUSPEN* Use 1 Ampule via nebulizer tw* CRISABOROLE 2 % TOPICAL OINTM* Apply to the hands twice daily COMPOUNDED PRESCRIPTION Please provide patient with n* FLUTICASONE 100 MCG-VILANTERO* Inhale 1 Inhalation as instru* PREGABALIN 150 MG CAPSULE Take 1 capsule by mouth twice* CETIRIZINE 10 MG TABLET Take 10 mg by mouth once mary ellen* PIMECROLIMUS 1 % TOPICAL CREAM Apply twice daily to the hands SPIRONOLACTONE 50 MG TABLET Take 1 tablet by mouth twice * ONDANSETRON HCL 4 MG TABLET Take 1 tablet by mouth every * CHOLESTYRAMINE (BULK) POWDER Take 1 scoop by mouth once da* BUMETANIDE 0.5 MG TABLET Take 1 tablet by mouth once d* LANSOPRAZOLE 30 MG CAPSULE,DE* Take 1 capsule by mouth twice* AZELASTINE 0.15 % (205.5 MCG)* Use 1 Wilberforce in each nostril t* LEVALBUTEROL HFA 45 MCG/ACTUA* Inhale 1-2 Puffs as instructe* LEVALBUTEROL 1.25 MG/3 ML BRENDA* Use 1 Ampule via nebulizer ev* FLUTICASONE 50 MCG/ACTUATION * 1-2 sprays each side qd BENZONATATE 200 MG CAPSULE Take 200 mg by mouth three ti* LACTOBACILLUS RHAMNOSUS GG 10* Take 1 capsule by mouth twice* FAMOTIDINE 20 MG TABLET Take 1 tablet by mouth twice * Patient taking differently: Take 20 mg by mouth twice liam* DIPHENHYDRAMINE 50 MG CAPSULE Take 1 capsule by mouth every* EPINEPHRINE 0.3 MG/0.3 ML INJ* Inject 0.3 mL intramuscularly* AMOXICILLIN 250 MG CAPSULE Take 250 mg by mouth once liam* ZAFIRLUKAST 20 MG TABLET Take 1 tablet by mouth twice * DOXAZOSIN 2 MG TABLET Take 2 mg by mouth once daily. CYCLOSPORINE MODIFIED 50 MG C* Take 50 mg by mouth twice liam* ASCORBIC ACID (VITAMIN C) 500* Take 1 tablet by mouth once d* Problem List As Of Date 04/07/2017 Noted Resolved JOINT PAIN-ANKLE [M25.579] INVALID FOR*03/20/2014 Edema [R60.9] INVALID FOR*03/28/2016 Priority: I Adrenal nodule (HCC) [E27.9] INVALID FOR* More... Diarrhea [R19.7] INVALID FOR*10/15/2013 Hypertension [I10] INVALID FOR* Priority: E Excessive or frequent menstruation [N92.0] INVALID FOR*07/14/2011 Shortness of breath [R06.02] INVALID FOR*10/15/2013 Palpitations [R00.2] INVALID FOR*03/20/2014 Tachycardia, unspecified [R00.0] INVALID FOR*10/15/2013 More... Open wound site NOS [T14.8XXA] INVALID FOR*07/16/2011 Abdominal pain, right upper quadrant [R10.11] INVALID FOR*07/14/2011 More... Acute gastritis without mention of hemorrhage [*INVALID FOR*10/15/2013 Hematuria [599.7] INVALID FOR*07/14/2011 URGE INCONTINENCE [N39.41] INVALID FOR* FEMALE STRESS INCONTINENCE [N39.3] INVALID FOR* Scar, hypertrophic [L91.0] INVALID FOR*10/15/2013 Ovarian cyst [N83.209] INVALID FOR*07/06/2010 Cyst INVALID FOR*10/15/2013 Other specified pre-operative examination [Z01.*INVALID FOR*07/16/2011 Hirsutism [L68.0] INVALID FOR* Dysphagia [R13.10] INVALID FOR*03/20/2014 GERD (gastroesophageal reflux disease) [K21.9] INVALID FOR* Priority: D More... 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 Obesity (BMI 30.0-34.9) [E66.9] INVALID FOR* More... More... More... More... Idiopathic anaphylaxis [T78.2XXA] INVALID FOR* Priority: A More... Urticaria, idiopathic [L50.1] INVALID FOR*03/28/2016 More... Hyperlipidemia [E78.5] INVALID FOR* Impaired fasting glucose [R73.01] INVALID FOR* Recurrent chest pain [R07.9, G89.29] INVALID FOR*12/09/2014 Multinodular goiter [E04.2] INVALID FOR* More... CKD (chronic kidney disease) stage 3, GFR 30-59*INVALID FOR* Pain in joint, ankle and foot [M25.579] INVALID FOR*12/09/2014 More... More... Steroid-induced hyperglycemia [R73.9, T38.0X5A] INVALID FOR*03/28/2016 Priority: C Moderate persistent asthma without complication*INVALID FOR* Ulcerative colitis without complications (HCC) *INVALID FOR* Anaphylaxis [T78.2XXA] INVALID FOR*03/26/2015 More... Neck pain, bilateral [M54.2] INVALID FOR*03/28/2016 Essential hypertension with goal blood pressure*INVALID FOR*03/28/2016 Chronic nausea [R11.0] INVALID FOR* Lumbar radiculitis [M54.16] INVALID FOR*03/28/2016 Lumbar stenosis [M48.061] INVALID FOR*03/28/2016 Acquired spondylolisthesis [M43.10] INVALID FOR*03/28/2016 Cervical radiculitis [M54.12] INVALID FOR*03/28/2016 Cervical spondylosis with radiculopathy [M47.22]INVALID FOR*03/29/2017 Shoulder impingement [M75.40] INVALID FOR*03/28/2016 Anaphylaxis [T78.2XXA] INVALID FOR*03/28/2016 Tendonitis, tibialis [M76.829] INVALID FOR*05/09/2016 Lumbar stenosis [M48.061] INVALID FOR* Cervical radiculitis [M54.12] INVALID FOR*03/29/2017 Cervical herniated disc [M50.20] INVALID FOR*03/29/2017 Cervical stenosis of spine [M48.02] INVALID FOR* Cervical spondylosis with myelopathy [M47.12] INVALID FOR*03/29/2017 Cervical myelopathy (HCC) [G95.9] INVALID FOR*03/29/2017 Claustrophobia [F40.240] INVALID FOR* Ptosis of eyelid, bilateral [H02.403] INVALID FOR*03/29/2017 More... Lumbar spondylosis [M47.816] INVALID FOR* More... Preop testing [Z01.818] INVALID FOR* More... Anaphylaxis [T78.2XXA] INVALID FOR* Encounter Status:Closed by DANN KNOWLES RRT on 04/07/17 PROGRESS Observed: 04/07/2017 Status: COMPLETED Source: [place] 1:52 PM [facility] [place] REPOSITORY HNO ID: [id number] Author: Karyna Kent (Rn) JONATHAN Araujo Service: (none) Author Type: Registered Nurse Type: Progress Notes Filed: 04/07/2017 2:05 PM Note Text: TRANSITION CARE MANAGEMENT (TCM) INITIAL CONTACT Provider Action/FYI: N/A Initial contact with patient post discharge, spoke to pt; 04/07/17. Patient identified by name and . SUMMARY: -Pt discharged from [facility] on 04/06/17. -Follow up appointment on 04/11/17; pt requesting to change location. -Medication review done No; unable at this time. -Admitted for: Anaphylactic reaction CONCERNS: Spoke with pt who stated she is doing OK Is currently at Pulmonary appt and unable to review medications at this time Requested to reschedule appt from 04/11 to [place] location Message routed NEW MEDICATIONS: None MEDS HELD/DISCONTINUED: None BRIEF HOSPITAL COURSE: The following copied from discharge summary 04/06/17: REASON I WAS IN THE HOSPITAL: anaphylactic reaction ? SUMMARY OF WHAT HAPPENED WHILE I WAS IN THE HOSPITAL: 1. Anaphylaxis post eye drops ?phenylephrine 2. Asthma 3. Allergic rhinitis 4. CKD 3 5. Essential HTN ? PLAN: ?? ? Responded well to Solumedrol benadryl famotidine and IM epi Anaphylaxis from eye drops - required multiple dose of epi, benadryl pepcid and steroid - resolved ? Discharge home Karyna Araujo RN, BSN Detonator Assembler [phone] [facility] [place]/[facility] CC POOL [[id number]] CBC W/DIFF, AUTOMATED Collected: 04/07/2017 Status: F Source: [place] 1:00 PM [facility] REPOSITORY TYPE CODE TESTS RESULT OUT OF RANGE REFERENCE UNITS LAB L100.1000 4.4-11.0 K/mm3 Normal WBC 10.0 LAB L100.1200 4.2-5.4 M/mm3 Normal RBC 4.71 LAB L100.1300 12.0-15.0 g/dl Normal HGB 13.8 LAB L100.1400 37-47 % Normal HCT 42.4 LAB L100.1500 81-99 fL Normal MCV 90.0 LAB L100.1600 27.0-32.0 pg Normal MCH 29.3 LAB L100.1700 32-36 g/gl Normal MCHC 32.5 LAB L100.1810 11.6-14.6 % Normal RDW CV 14.2 LAB L100.1820 35.1-43.9 fl High RDW SD 46.5 LAB L100.1900 150-450 K/mm3 Normal PLT 223 LAB L100.2000 6.2-12.0 fl Normal MPV 11.0 LAB L100.2100 47-70 % High NEUT% 75.1 LAB L100.2200 19-41 % Low LY% 15.9 LAB L100.2300 0-10 % Normal MONO% 7.7 LAB L100.2400 0-5 % Normal EO% 0.3 LAB L100.2500 0-1 % Normal BASO% 0.2 LAB L100.2550 0.0-0.9 % Normal IM GRAN % 0.800 Result Comment: IG% - Immature Granulocytes (promyelocytes, myelocytes and metamyelocytes) > 1% indicates that a LEFT SHIFT is Present. LAB L100.2620 2.0-7.7 X10 3/uL Normal Absolute Neut 7.5 LAB L100.2720 0.83-4.51 X10 3/ul Normal Absolute Lymph 1.59 Performed By: #### L100.99 #### [facility] [address] [place], [place], [address] URINALYSIS, ROUTINE Collected: 04/07/2017 Status: F Source: [place] (DIPSTICK) 1:00 PM [facility] REPOSITORY Order Comment: How was Urine Obtained? CLEAN CATCH TYPE CODE TESTS RESULT OUT OF RANGE REFERENCE UNITS LAB L400.3000 Yellow COLOR Normal Straw LAB L400.3050 Clear Normal CLARITY Sl. Cloudy LAB L400.3200 Normal mg/dl Normal GLUCOSE, UR Normal LAB L400.3300 Negative mg/dL Normal BILIRUBIN URINE Negative LAB L400.3400 Negative mg/dl Normal KETONE UR Negative LAB L400.3465 1.002-1.030 Normal SP.GR. DIPSTX 1.010 LAB L400.3550 5.0 - 8.0 pH UR Normal 7.0 LAB L400.3600 Negative mg/dl PROT Normal DIPSTX Negative LAB L400.3700 Normal mg/dl Normal UROBILI Normal LAB L400.3750 Negative Normal NITRITE UR Negative LAB L400.3780 Negative /ul Normal OCCULT BLOOD-UR Negative LAB L400.3800 Negative /ul High LEUK 25 ESTERASE Performed By: #### L400.2010 #### [facility] [address] [place], [place], [address] BUN Collected: 04/07/2017 Status: F Source: [place] 1:00 PM [facility] REPOSITORY TYPE CODE TESTS RESULT OUT OF RANGE REFERENCE UNITS LAB L501.1000 7-18 mg/dL High BUN 32 Performed By: #### L501.1000, L501.1105, L501.1800, L501.4100, L501.4405 #### [facility] [address] [place], [place], [address] SERUM CREATININE AND Collected: 04/07/2017 Status: F Source: [place] GFR 1:00 PM [facility] REPOSITORY TYPE CODE TESTS RESULT OUT OF RANGE REFERENCE UNITS LAB L501.1100 0.55-1.02 mg/dL High 1.38 CREAT,SERUM Result Comment: The validity of the calculated GFR AND GFRAA in patients over 70 years has not been determined. Clinical correlation is essential. LAB L501.1110 >60 mL/min Low EST GFR 41 Result Comment: Non- GFR Calc LAB L501.1115 >60 mL/min Low EST GFR - AA 50 Result Comment: GFR Calc Performed By: #### L501.1000, L501.1105, L501.1800, L501.4100, L501.4405 #### [facility] [address] [place], [place], [address] ALBUMIN, SERUM Collected: 04/07/2017 Status: F Source: [place] 1:00 PM [facility] REPOSITORY TYPE CODE TESTS RESULT OUT OF RANGE REFERENCE UNITS LAB L501.1800 3.4-5.0 g/dL Normal ALB 4.0 Result Comment: Please note revised Albumin AND Globulin reference range effective 2017. Performed By: #### L501.1000, L501.1105, L501.1800, L501.4100, L501.4405 #### [facility] [address] [place], [place], [id number] AST(SGOT) Collected: 04/07/2017 Status: F Source: [place] 1:00 PM [facility] REPOSITORY TYPE CODE TESTS RESULT OUT OF RANGE REFERENCE UNITS LAB L501.4100 15-37 U/L Normal AST 22 Performed By: #### L501.1000, L501.1105, L501.1800, L501.4100, L501.4405 #### [facility] [address] [place], [address] ALANINE AMINOTRANSFERAS Collected: 04/07/2017 Status: F Source: [place] (SGPT) 1:00 PM [facility] REPOSITORY TYPE CODE TESTS RESULT OUT OF RANGE REFERENCE UNITS LAB L501.4405 12-78 U/L Normal ALT 32 Performed By: #### L501.1000, L501.1105, L501.1800, L501.4100, L501.4405 #### [facility] [address] [facility] [place], [place], [address] CYCLOSPORINE, BLOOD Collected: 04/07/2017 Status: F Source: [place] 1:00 PM [facility] REPOSITORY TYPE CODE TESTS RESULT OUT OF REFERENCE UNITS RANGE LAB L3400.3100 100-400 ng/mL Low Cyclosporine 42 Result Comment: Therapeutic: Renal Transplant 100 - 250 Liver Transplant 100 - 400 Cardiac Transplant 100 - 400 Bone Marrow 200 - 300 Detection Limit = 25 Assay performed by Liquid Chromatography Tandem Mass Spectrometry (LC-MS/MS) If preferred testing methodology for Cyclosporine is Liquid Chromatography Tandem Mass Spectrometry (LC-MS/MS) please use test code 037665. For testing performed by Immunoassay, please use test code 762232. Performed at: [address] [id number] [employer] Music Director: Mik Alonso MD, Phone: [phone] Performed By: #### L3400.3090 #### [facility] (refer to report for specific site) refer to report for address and phone number [email or web address] Observed: 04/07/2017 Status: COMPLETED Source: [place] 12:00 AM [facility] REPOSITORY Patient Outreach (INTMIN) ADIRALPH Mckinnon ([id number]) 1955 F Date Time Provider Department 04/07/17 KARYNA ARAUJO (RN) INTMIN During your visit today, we recorded the following information about you: Karyna Araujo RN 04/07/2017 2:05 PM Signed TRANSITION CARE MANAGEMENT (TCM) INITIAL CONTACT Provider Action/FYI: N/A Initial contact with patient post discharge, spoke to pt; 04/07/17. Patient identified by name and . SUMMARY: -Pt discharged from [facility] on 04/06/17. -Follow up appointment on 04/11/17; pt requesting to change location. -Medication review done No; unable at this time. -Admitted for: Anaphylactic reaction CONCERNS: Spoke with pt who stated she is doing OK Is currently at Pulmonary appt and unable to review medications at this time Requested to reschedule appt from 04/11 to [place] location Message routed NEW MEDICATIONS: None MEDS HELD/DISCONTINUED: None BRIEF HOSPITAL COURSE: The following copied from discharge summary 04/06/17: REASON I WAS IN THE HOSPITAL: anaphylactic reaction ? SUMMARY OF WHAT HAPPENED WHILE I WAS IN THE HOSPITAL: 1. Anaphylaxis post eye drops ?phenylephrine 2. Asthma 3. Allergic rhinitis 4. CKD 3 5. Essential HTN ? PLAN: ?? ? Responded well to Solumedrol benadryl famotidine and IM epi Anaphylaxis from eye drops - required multiple dose of epi, benadryl pepcid and steroid - resolved ? Discharge home - - Karyna Araujo RN, BSN Detonator Assembler [phone] [facility] [[id number]] Carlos A Alonso Psr 04/11/2017 9:41 AM Signed There are no openings w Dr. Caldwell until mid Apr. Called Pt at the home # and lmtcb to reschedule the follow up w the [facility] or another provider this week. Called Pt at the cell and the vm box is full. Unable to leave message. Carlos A Alonso Psr 04/13/2017 8:42 AM Signed Called Pt again still unable to reach Pt. Will reschedule the appt when Pt calls back. Allergies As of Date: 04/07/2017 Noted Allergy Reaction AVOCADO 09/10/2014 10 - Anaphylaxis BANANA 09/10/2014 10 - Anaphylaxis CARBINOXAMINE 09/17/2012 10 - Anaphylaxis YOSELIN SEED 08/28/2013 10 - Anaphylaxis CIPROFLOXACIN 04/11/2014 10 - Anaphylaxis CODEINE 01/12/2012 10 - Anaphylaxis CONTRAST DYE 05/17/2013 10 - Anaphylaxis Comments: To MRI and CT FISH 09/07/2014 10 - Anaphylaxis HYCODAN (HYDROCODONE-HOMATROPINE) 09/08/2011 10 - Anaphylaxis Comments: Face and throat swelling LATEX 01/21/2014 10 - Anaphylaxis IMTIAZ-SYNEPHRINE (PHENYLEPHRINE HCL)09/04/2014 10 - Anaphylaxis Comments: 10% eye drop NICKEL 01/07/2014 2 - Rash 4 - Hives 10 - Anaphylaxis NSAIDS (NON-STEROIDAL ANTI-INFLAM*08/16/2010 14 - Other: See Comments Comments: Kidney function drops; reversible kidney damage. OXYCODONE 08/28/2013 10 - Anaphylaxis PERIACTIN (CYPROHEPTADINE) 09/17/2012 10 - Anaphylaxis PNEUMOCOCCAL VACCINE 10/31/2014 10 - Anaphylaxis SHELLFISH 09/07/2014 10 - Anaphylaxis ZANTAC (RANITIDINE) 09/17/2012 10 - Anaphylaxis ATIVAN (LORAZEPAM) 08/28/2013 14 - Other: See Comments Comments: hallucination BEEF CONTAINING PRODUCTS 09/10/2014 2 - Rash CORN 05/03/2011 14 - Other: See Comments Comments: Feels like an asthma attack. EGGS (EGG) 03/08/2011 2 - Rash 11 - Vomiting EKG LEADS (ADHESIVE) 10/22/2012 2 - Rash Comments: Localized,only under the leads INFLUENZA VIRUS VACCINES 10/22/2012 12 - Shortness of Breath LISINOPRIL 04/20/2004 3 - Cough MILK 03/08/2011 2 - Rash 11 - Vomiting MOMETASONE 04/05/2017 10 - Anaphylaxis Comments: Per Dr. Salas she tolerates formoterol (on Breo at home) but is allergic to mometasone. Okayed by him to update. XOLAIR (OMALIZUMAB) 04/19/2012 12 - Shortness of Breath environmental [Other] 06/26/2007 14 - Other: See Comments Comments: Nasal congestion, brings on an asthma attack. surgical tape [Other] 11/10/2009 2 - Rash 7 - Swelling Comments: Oral rash, swelling of eyes, asthma attacks; per pateint report. Date Reviewed: 04/07/2017 Reviewed by: Jovanna Spence - Fully Assessed Reason for Visit: Transition Of Care [4074] Cmt: TCM; D/C [facility] 04/06/17; Anaphylactic reaction Reason For Visit History Recorded Prescriptions as of 04/07/2017 Sig: PREDNISONE 10 MG TABLET Take 2.5 tablets by mouth onc* Patient taking differently: Take 25 mg by mouth once mary ellen* ERGOCALCIFEROL (VITAMIN D2) 5* Take 1 capsule by mouth once * Patient taking differently: Take 50,000 Units by mouth on* AMLODIPINE 10 MG TABLET Take 10 mg by mouth once mary ellen* TURMERIC ROOT EXTRACT ORAL Take 1 tablet by mouth twice * COMPOUNDED PRESCRIPTION Nocturnal oximetry on room ai* NITROGLYCERIN 0.4 MG SUBLINGU* DISSOLVE 1 TABLET UNDER THE T* BUDESONIDE 0.5 MG/2 ML SUSPEN* Use 1 Ampule via nebulizer tw* CRISABOROLE 2 % TOPICAL OINTM* Apply to the hands twice daily COMPOUNDED PRESCRIPTION Please provide patient with n* FLUTICASONE 100 MCG-VILANTERO* Inhale 1 Inhalation as instru* PREGABALIN 150 MG CAPSULE Take 1 capsule by mouth twice* CETIRIZINE 10 MG TABLET Take 10 mg by mouth once mary ellen* PIMECROLIMUS 1 % TOPICAL CREAM Apply twice daily to the hands SPIRONOLACTONE 50 MG TABLET Take 1 tablet by mouth twice * ONDANSETRON HCL 4 MG TABLET Take 1 tablet by mouth every * CHOLESTYRAMINE (BULK) POWDER Take 1 scoop by mouth once da* BUMETANIDE 0.5 MG TABLET Take 1 tablet by mouth once d* LANSOPRAZOLE 30 MG CAPSULE,DE* Take 1 capsule by mouth twice* AZELASTINE 0.15 % (205.5 MCG)* Use 1 Wilberforce in each nostril t* LEVALBUTEROL HFA 45 MCG/ACTUA* Inhale 1-2 Puffs as instructe* LEVALBUTEROL 1.25 MG/3 ML BRENDA* Use 1 Ampule via nebulizer ev* FLUTICASONE 50 MCG/ACTUATION * 1-2 sprays each side qd BENZONATATE 200 MG CAPSULE Take 200 mg by mouth three ti* LACTOBACILLUS RHAMNOSUS GG 10* Take 1 capsule by mouth twice* FAMOTIDINE 20 MG TABLET Take 1 tablet by mouth twice * Patient taking differently: Take 20 mg by mouth twice liam* DIPHENHYDRAMINE 50 MG CAPSULE Take 1 capsule by mouth every* EPINEPHRINE 0.3 MG/0.3 ML INJ* Inject 0.3 mL intramuscularly* AMOXICILLIN 250 MG CAPSULE Take 250 mg by mouth once liam* ZAFIRLUKAST 20 MG TABLET Take 1 tablet by mouth twice * DOXAZOSIN 2 MG TABLET Take 2 mg by mouth once daily. CYCLOSPORINE MODIFIED 50 MG C* Take 50 mg by mouth twice liam* ASCORBIC ACID (VITAMIN C) 500* Take 1 tablet by mouth once d* Problem List As Of Date 04/07/2017 Noted Resolved JOINT PAIN-ANKLE [M25.579] INVALID FOR*03/20/2014 Edema [R60.9] INVALID FOR*03/28/2016 Priority: I Adrenal nodule (HCC) [E27.9] INVALID FOR* More... Diarrhea [R19.7] INVALID FOR*10/15/2013 Hypertension [I10] INVALID FOR* Priority: E Excessive or frequent menstruation [N92.0] INVALID FOR*07/14/2011 Shortness of breath [R06.02] INVALID FOR*10/15/2013 Palpitations [R00.2] INVALID FOR*03/20/2014 Tachycardia, unspecified [R00.0] INVALID FOR*10/15/2013 More... Open wound site NOS [T14.8XXA] INVALID FOR*07/16/2011 Abdominal pain, right upper quadrant [R10.11] INVALID FOR*07/14/2011 More... Acute gastritis without mention of hemorrhage [*INVALID FOR*10/15/2013 Hematuria [599.7] INVALID FOR*07/14/2011 URGE INCONTINENCE [N39.41] INVALID FOR* FEMALE STRESS INCONTINENCE [N39.3] INVALID FOR* Scar, hypertrophic [L91.0] INVALID FOR*10/15/2013 Ovarian cyst [N83.209] INVALID FOR*07/06/2010 Cyst INVALID FOR*10/15/2013 Other specified pre-operative examination [Z01.*INVALID FOR*07/16/2011 Hirsutism [L68.0] INVALID FOR* Dysphagia [R13.10] INVALID FOR*03/20/2014 GERD (gastroesophageal reflux disease) [K21.9] INVALID FOR* Priority: D More... 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 Obesity (BMI 30.0-34.9) [E66.9] INVALID FOR* More... More... More... More... Idiopathic anaphylaxis [T78.2XXA] INVALID FOR* Priority: A More... Urticaria, idiopathic [L50.1] INVALID FOR*03/28/2016 More... Hyperlipidemia [E78.5] INVALID FOR* Impaired fasting glucose [R73.01] INVALID FOR* Recurrent chest pain [R07.9, G89.29] INVALID FOR*12/09/2014 Multinodular goiter [E04.2] INVALID FOR* More... CKD (chronic kidney disease) stage 3, GFR 30-59*INVALID FOR* Pain in joint, ankle and foot [M25.579] INVALID FOR*12/09/2014 More... More... Steroid-induced hyperglycemia [R73.9, T38.0X5A] INVALID FOR*03/28/2016 Priority: C Moderate persistent asthma without complication*INVALID FOR* Ulcerative colitis without complications (HCC) *INVALID FOR* Anaphylaxis [T78.2XXA] INVALID FOR*03/26/2015 More... Neck pain, bilateral [M54.2] INVALID FOR*03/28/2016 Essential hypertension with goal blood pressure*INVALID FOR*03/28/2016 Chronic nausea [R11.0] INVALID FOR* Lumbar radiculitis [M54.16] INVALID FOR*03/28/2016 Lumbar stenosis [M48.061] INVALID FOR*03/28/2016 Acquired spondylolisthesis [M43.10] INVALID FOR*03/28/2016 Cervical radiculitis [M54.12] INVALID FOR*03/28/2016 Cervical spondylosis with radiculopathy [M47.22]INVALID FOR*03/29/2017 Shoulder impingement [M75.40] INVALID FOR*03/28/2016 Anaphylaxis [T78.2XXA] INVALID FOR*03/28/2016 Tendonitis, tibialis [M76.829] INVALID FOR*05/09/2016 Lumbar stenosis [M48.061] INVALID FOR* Cervical radiculitis [M54.12] INVALID FOR*03/29/2017 Cervical herniated disc [M50.20] INVALID FOR*03/29/2017 Cervical stenosis of spine [M48.02] INVALID FOR* Cervical spondylosis with myelopathy [M47.12] INVALID FOR*03/29/2017 Cervical myelopathy (HCC) [G95.9] INVALID FOR*03/29/2017 Claustrophobia [F40.240] INVALID FOR* Ptosis of eyelid, bilateral [H02.403] INVALID FOR*03/29/2017 More... Lumbar spondylosis [M47.816] INVALID FOR* More... Preop testing [Z01.818] INVALID FOR* More... Anaphylaxis [T78.2XXA] INVALID FOR* Encounter Status:Closed by KARYNA ARAUJO on 04/07/17 CNDS Observed: 04/06/2017 Status: COMPLETED Source: [facility] [place] 12:05 PM CLINIC OTHER CAMPUS REPOSITORY HNO ID: [id number] Author: Raudel Salas MD Service: Pulmonary Disease Author Type: Physician Type: Discharge Summaries Filed: 04/06/2017 12:38 PM Note Text: DISCHARGE SUMMARY PATIENT NAME: Ralph Joshi Date of admission : 04/05/17 Date of Discharge: 04/06/17 Admission Information Admission Information ADMIT DATE: 04/05/2017 DISCHARGE DATE: 04/06/2017 MY DOCTORS AND MEDICAL TEAM: My Main Hospital Doctor: Raudel Salas MD Primary Care Provider: Anisa Caldwell MD My Medical Team Members: Treatment Team: Attending Provider: Raudel Salas MD Consulting: Dennis Roberts MY CONDITION AT DISCHARGE: Stable REASON I WAS IN THE HOSPITAL: anaphylactic reaction SUMMARY OF WHAT HAPPENED WHILE I WAS IN THE HOSPITAL: 1. Anaphylaxis post eye drops ?phenylephrine 2. Asthma 3. Allergic rhinitis 4. CKD 3 5. Essential HTN ? ? ? PLAN: ? ? Responded well to Solumedrol benadryl famotidine and IM epi Anaphylaxis from eye drops - required multiple dose of epi, benadryl pepcid and steroid - resolved ? Discharge home ? OTHER PROBLEMS/DIAGNOSIS: Active Problems: Anaphylaxis OPERATIONS PERFORMED WHILE IN THE HOSPITAL: None IMPORTANT TEST/PROCEDURES: No procedures performed TEST RESULTS NOT AVAILABLE AT THIS TIME: No pending results Discharge Disposition Discharge Disposition: Home With Self Care Activity When You Leave the Hospital Resume pre-hospital activity Diet Instructions Resume your pre-hospital diet For Pain When You Leave the Hospital Use acetaminophen (Tylenol) as recommended on the bottle Follow Up Appointments Follow-Up Appointment When: In 1 week Dennis Roberts [phone] [id number] [address] PCP Requested Referral Transitions of Care Critical Issues: None FOLLOW-UP APPOINTMENTS ALREADY SCHEDULED WITH A [facility] PROVIDER Future Appointments Date Time Provider Department Center 04/07/2017 2:00 PM Respiratory Therapist [facility] 04/07/2017 2:15 PM Respiratory Therapist [facility] 04/07/2017 2:30 PM Jovanna Spence [facility] 04/11/2017 9:20 AM Adore (Tisha) Griselda PEREIRA 04/19/2017 8:00 AM LBJ1-4 MAIN LBJ1-4 CARD J BLD 04/19/2017 8:15 AM EKGJ1-4 MAIN [id number] CARD J BLD 04/19/2017 8:30 AM XR CHEST MAIN J1 RADMNJ RADIO J BLDG 04/19/2017 9:00 AM Fanta Coker SPNSMN NEUS A AND S B 04/19/2017 9:30 AM Charlene Lopez (Jonathan) JONATHAN Ferrell SPNSMN NEUS A AND S B 04/19/2017 10:15 AM Dandre Aury [place] NATHANIEL INTM G Bldg 04/19/2017 1:15 PM ADMIT INTERVIEW A14 PSSN [facility] A Bldg 04/19/2017 1:30 PM [facility] MAIN PSSN [facility] A Bldg 04/19/2017 2:00 PM Charlene Lopez (Jonathan) JONATHAN Ferrell SPNSMN NEUS A AND S B 05/22/2017 2:00 PM [facility] 06/14/2017 8:40 AM Fanta Coker SPNSMN NEUS A AND S B 06/16/2017 2:25 PM MD FRANKI Lay 07/27/2017 2:00 PM [facility] 03/28/2018 10:25 AM MD FRANKI Lay ETIENNE MOB Discharge Information ED to Hosp-Admission (Discharged) from 04/05/2017 in [facility] ICUA Medical Follow-Up Appointment Specialty PCP Provider Name Anisa Caldwell MD Address [address] [facility] [address]st [place] [address] Appointment Date 04/11/17 Appointment Time 920am Additonal Instructions Pt. should bring the following to appointment; Picture ID, Ins card, Co-pay, Meds/med list. Please provide a 24 hour notice for cancellation. DISCHARGE MEDICATION: Discharge Medication List as of 04/06/2017 11:35 AM CONTINUE these medications which have NOT CHANGED predniSONE (DELTASONE) 10 mg tablet Take 2.5 tablets by mouth once daily. Med Update, R-0 ergocalciferol, vitamin D2, (VITAMIN D) 50,000 unit capsule Take 1 capsule by mouth once each week. Normal, Disp-12 capsule, R-4 Dx: 1. Vitamin D deficiency amLODIPine (NORVASC) 10 mg tablet Take 10 mg by mouth once daily. Historical Med TURMERIC ROOT EXTRACT ORAL Take 1 tablet by mouth twice daily. Historical Med !! COMPOUNDED PRESCRIPTION Nocturnal oximetry on room air. Print RX, Disp-1 Each, R-0 Dx: 1. Dyspnea and respiratory abnormalities nitroglycerin sublingual (NITROQUICK) 0.4 mg SL tablet DISSOLVE 1 TABLET UNDER THE TONGUE NEEDED FOR CHEST PAIN IF NO RELIEF CALL 911 Normal, Disp-25 Bottle of 25, R-3 budesonide (PULMICORT) 0.5 mg/2 mL nebulizer solution Use 1 Ampule via nebulizer twice daily. Normal, Disp-60 Ampule, R-6 Dx: 1. Moderate persistent asthma without complication 2. THONY (obstructive sleep apnea) 3. Gastroesophageal reflux disease, esophagitis presence not specified 4. Idiopathic anaphylaxis, subsequent encounter crisaborole (EUCRISA) 2 % oint Apply to the hands twice daily Normal, Disp-60 g, R-3 !! COMPOUNDED PRESCRIPTION Please provide patient with nebulizer machine and supplies. Diagnosis: Severe Asthma. Print RX, Disp-1 Each, R-0 Dx: 1. Uncomplicated severe persistent asthma fluticasone-vilanterol (BREO ELLIPTA) 100-25 mcg/dose inhaler Inhale 1 Inhalation as instructed once daily. Historical Med pregabalin (LYRICA) 150 mg capsule Take 1 capsule by mouth twice daily. Print RX, Disp-180 capsule, R-1 cetirizine (ZYRTEC) 10 mg tablet Take 10 mg by mouth once daily. Historical Med pimecrolimus (ELIDEL) 1 % cream Apply twice daily to the hands Normal, Disp-30 Tube, R-3 Dx: 1. Eczema, unspecified type spironolactone (ALDACTONE) 50 mg tablet Take 1 tablet by mouth twice daily. Normal, Disp-180 tablet, R-3 Dx: 1. Essential hypertension with goal blood pressure less than 130/80 ondansetron (ZOFRAN) 4 mg tablet Take 1 tablet by mouth every 8 hours as needed. Normal, Disp-30 tablet, R-3 Dx: 1. Gastroesophageal reflux disease without esophagitis Cholestyramine, Bulk, powd Take 1 scoop by mouth once daily. Normal, Disp-1134 g, R-4 bumetanide (BUMEX) 0.5 mg tablet Take 1 tablet by mouth once daily. Normal, Disp-90 tablet, R-4 lansoprazole (PREVACID) 30 mg capsule Take 1 capsule by mouth twice daily. Normal, Disp-180 capsule, R-4 Dx: 1. Gastroesophageal reflux disease, esophagitis presence not specified Azelastine 0.15 % (205.5 mcg) spry Use 1 [place] in each nostril twice daily. Normal, Disp-3 Bottle, R-3 levalbuterol tartrate HFA (XOPENEX HFA) 45 mcg/actuation inhaler Inhale 1-2 Puffs as instructed every 6 hours as needed for Wheezing/Shortness of Breath. Normal, Disp-3 Inhaler, R-3 levalbuterol (XOPENEX) 1.25 mg/3 mL nebulizer solution Use 1 Ampule via nebulizer every 4 hours as needed. Inhale over 5-15 minutes Normal, Disp-300 Ampule, R-3 fluticasone (FLONASE) 50 mcg/actuation nasal spray 1-2 sprays each side qd Normal, Disp-3 Bottle, R-3 Benzonatate 200 mg capsule Take 200 mg by mouth three times daily as needed for Cough. Normal, Disp-30 capsule, R-1 lactobacillus rhamnosus (CULTURELLE) 10 billion cell capsule Take 1 capsule by mouth twice daily. Med Update famotidine (PEPCID) 20 mg tablet Take 1 tablet by mouth twice daily. Print RX, Disp-14 tablet, R-0 diphenhydrAMINE (BENADRYL) 50 mg capsule Take 1 capsule by mouth every 6 hours as needed for Itching/Rash. Print RX, Disp-30 capsule, R-0 EPINEPHrine 0.3 mg/0.3 mL auto-injector Inject 0.3 mL intramuscularly as needed. Print RX, Disp-2 Each, R-1 amoxicillin (POLYMOX, AMOXIL) 250 mg capsule Take 250 mg by mouth once daily. Historical Med zafirlukast (ACCOLATE) 20 mg tablet Take 1 tablet by mouth twice daily. Normal, Disp-60 tablet, R-11 doxazosin (CARDURA) 2 mg tablet Take 2 mg by mouth once daily. Historical Med cycloSPORINE Modified 50 mg capsule Take 50 mg by mouth twice daily. Historical Med ascorbic acid (VITAMIN C) 500 mg tablet Take 1 tablet by mouth once daily. [employer], Disp-90 tablet, R-0 !! - Potential duplicate medications found. Please discuss with provider. TIME OF CARE: Discharge Management: I personally spent greater than 30 minutes involved in the discharge management of this patient. SIGNATURE: Raudel Salas MD PAGER/CONTACT #: DATE: April 06, 2017 TIME: 12:35 PM CASE MANAGEM Observed: 04/06/2017 Status: COMPLETED Source: [place] [place] 12:05 PM CLINIC OTHER [place] REPOSITORY HNO ID: [id number] Author: Carol (Rn) JONATHAN Mckinney Service: Case Management Author Type: Registered Nurse Type: Care Mgt Progress Note Filed: 04/06/2017 4:33 PM Note Text: CARE MANAGEMENT DISCHARGE NOTE SERVICE DATE: 04/06/2017 SERVICE TIME: 13:00 LOS: 1 day Admission Date: 04/05/2017 DISCHARGE ARRANGEMENT (list agency and phone number) Home CAREGIVER ASSESSMENT: Caregiver is ready, willing and able to meet the patient's needs as recommended by the inter-professional team? No Caregiver Needed Patient's transition needs and plan for meeting these needs: transition home with spouse and son, will follow up with PCP Does the patient have an acute stroke diagnosis, or has the patient had a stroke during this admission? No HANDOFF COMMUNICATION: Primary Care Physician: see below Phone Number: see below TRANSPORTATION ARRANGEMENTS: Car Discharge Information ED to Hosp-Admission (Discharged) from 04/05/2017 in [facility] ICUA Medical Follow-Up Appointment Specialty PCP Provider Name Anisa Caldwell MD Address [address] [facility] 1st floor of [facility], [place] [address] Appointment Date 04/11/17 Appointment Time 920am Additonal Instructions Pt. should bring the following to appointment; Picture ID, Ins card, Co-pay, Meds/med list. Please provide a 24 hour notice for cancellation. Post acute care plan: Home with help from son and as needed. SIGNATURE: Carol Mckinney RN PATIENT NAME: Ralph Joshi DATE: April 06, 2017 TIME: 4:32 PM PAGER/CONTACT #: [phone] PROGRESS Observed: 04/06/2017 Status: COMPLETED Source: [place] 10:44 AM CLINIC OTHER [place] REPOSITORY HNO ID: [id number] Author: Raudel Salas MD Service: Pulmonary Disease Author Type: Physician Type: Progress Notes Filed: 04/06/2017 10:46 AM Note Text: . [facility] Note Pulmonary Critical Care Progress Note Assessment: Ms. Joshi is a 62 year old female admitted on 04/05/2017 for Anaphylaxis [T78.2XXA] IMPRESSION: 1. Anaphylaxis post eye drops ?phenylephrine 2. Asthma 3. Allergic rhinitis 4. CKD 3 5. Essential HTN PLAN: ? Anaphylaxis from eye drops - required multiple dose of epi, benadryl pepcid and steroid - resolved ? Discharge home ? Dr Roberts for primary Plan updated with Family and Bedisde Nurse This patient has a high probability of sudden, clinically significant deterioration, which requires the highest level of physician preparedness to intervene urgently. I managed/supervised life or organ supporting interventions that required frequent physician assessment. I devoted my full attention to the direct care of this patient for the amount of time indicated below. Time I spent with family or surrogate(s) is included only if the patient was incapable of providing the necessary information or participating in medical decision making. Time devoted to teaching and to any procedures I billed separately is not included. Critical Care Documentation: The patient has the following organ/system impairment(s): Anaphylaxis Time spent providing critical care services: 35 minutes. Raudel Salas MD April 06, 2017 10:46 AM Pager: [phone] Subjective: - no more need in EPi - no more swelling Inpatient Medications: Current hospital medications: EPINEPHrine 1 mg/mL (1 mL) 0.3 mg injection 0.3 mg INTRAMUSCULAR PRN diphenhydrAMINE 50 mg injection (BENADRYL) 50 mg INTRAVENOUS q 6 H methylPREDNISolone sod succinate(PF) 40 mg injection (Solu- MEDROL) 40 mg INTRAVENOUS q 12 H famotidine 20 mg injection (PEPCID) 20 mg INTRAVENOUS BID amLODIPine 10 mg tab(s) (NORVASC) 10 mg ORAL DAILY bumetanide 0.5 mg tab(s) (BUMEX) 0.5 mg ORAL DAILY cycloSPORINE modified 50 mg cap(s) (NEORAL) 50 mg ORAL BID doxazosin 2 mg tab(s) (CARDURA) 2 mg ORAL DAILY pregabalin 150 mg cap(s) (LYRICA) 150 mg ORAL BID spironolactone 50 mg tab(s) (ALDACTONE) 50 mg ORAL BID ondansetron (PF) 4 mg injection (ZOFRAN) 4 mg INTRAVENOUS q 6 H PRN albuterol 2.5 mg /3 mL (0.083 %) 2.5 mg (PROVENTIL) 2.5 mg INHALATION QID budesonide 0.5 mg/2 mL 0.5 mg (PULMICORT) 0.5 mg INHALATION BID montelukast 10 mg tab(s) (SINGULAIR) 10 mg ORAL AT BEDTIME PHYSICAL EXAM: Vital Signs: BP 111/60 Pulse 97 Temp 36.7 ?C (98 ?F) (Axillary) Resp 19 Ht 160 cm (5' 2.99) Wt 92.3 kg (203 lb 7.8 oz) LMP 08/04/2013 SpO2 90% BMI 36.05 kg/m2 Ventilator Settings: ; ; ; ; ; Respiratory/Nursing Documentation: O2 Therapy: Room Air (04/06/17837) Mode: Aerosol (04/06/17837) Constitutional: She is oriented to person, place, and time. She appears well-developed and well-nourished. No distress. Patient sitting upright in bed converses easily in full sentences, no visible sign of distress or discomfort at this time HENT: Head: Normocephalic. Mouth/Throat: Oropharynx is clear and moist. No oropharyngeal exudate. Mild periorbital edema; Mallampati 2, short neck, obese neck Eyes: Conjunctivae are normal. Pupils are equal, round, and reactive to light. Right eye exhibits no discharge. Left eye exhibits no discharge. Neck: Normal range of motion. No tracheal deviation present. Cardiovascular: Normal heart sounds and intact distal pulses. Exam reveals no gallop and no friction rub. No murmur heard. Tachycardic Pulmonary/Chest: Effort normal and breath sounds normal. No stridor. No respiratory distress. She has no wheezes. She has no rales. Mild tachypnea Abdominal: Soft. Bowel sounds are normal. She exhibits no distension. There is no tenderness. There is no rebound and no guarding. Obese Musculoskeletal: Normal range of motion. She exhibits no edema or tenderness. Neurological: She is alert and oriented to person, place, and time. Coordination normal. Skin: Skin is warm and dry. No rash noted. She is not diaphoretic. No erythema. Psychiatric: She has a normal mood and affect. Her behavior is normal. Judgment and thought content normal. Nursing note and vitals reviewed Labs / Imaging / Diagnostic Studies: All personally reviewed by me Data Reviewed: No results for input(s): PH, PO2, PCO2, HCO3, LACT in the last 168 hours. Recent Labs 04/05/17 1105 WBC 9.45 HB 15.3 HCT 45.2 PLT 300 No results for input(s): INR, APTT in the last 168 hours. Recent Labs 04/05/17 1105 CREAT 1.19* BUN 20 NA 144 K 3.6 CO2 21* CA 9.9 MG 2.0 AST 26 ALT 27 ALKPHOS 93 TBILI 0.7 No results for input(s): CK, CKMB, TROPT in the last 168 hours. [facility] Pulmonary Function La b Pred LLN ULN Pre % Date [id number] Time 08:09AM Height 162.6 Weight 90 FVC 3.31 2.62 4.00 2.65 80 FEV 1 2.56 1.97 3.14 2.03 79 FEV1%F 78.06 68.26 87.85 76.58 98 Raudel Salas MD April 06, 2017 10:46 AM Pager: [phone] NURSING PROG Observed: 04/06/2017 Status: COMPLETED Source: [place] 7:30 AM [facility] OTHER CAMPUS REPOSITORY HNO ID: [id number] Author: Lilia Cruz (Rn) JONATHAN Louis Service: Nursing Author Type: Registered Nurse Type: Nursing Progress Note Filed: 04/06/2017 12:08 PM Note Text: Nursing Progress Note Patient Name: Ralph Joshi Patient Location: [id number]/[id number] Daily Note: 0730: assumed care of pt, resting comfortably in bed. shift supervisor melting RN spoke with Dr Salas, gave order for regular diet, pt given menu. 0835: Pt assessed, AM meds given. Pt tolerated regular diet well, feels normal. 1030: Rounds completed, pt OK for discharge to home. 1205: Pt discharged home with family. This note was completed by: Lilia Louis RN NURSING PROG Observed: 04/05/2017 Status: COMPLETED Source: [place] 7:31 PM [facility] REPOSITORY HNO ID: [id number] Author: Bouchra (Rn) JONATHAN Toledo Service: Nursing Author Type: Registered Nurse Type: Nursing Progress Note Filed: 04/05/2017 7:31 PM Note Text: Nursing Progress Note Patient Name: Ralph Joshi Patient Location: [address] [address] [address] Daily Note: 1900: Assumed care of pt, assessment as charted This note was completed by: Bouchra Toledo RN HISTORY PHYSICAL Observed: 04/05/2017 Status: COMPLETED Source: [place] 3:53 PM [facility] REPOSITORY HNO ID: [id number] Author: Raudel Salas MD Service: Critical Care Author Type: Physician Type: HANDP Filed: 04/05/2017 4:22 PM Note Text: . [facility] Note Pulmonary Critical Care H ANDP Note HPI: Ralph Joshi is an 62 year old female admitted on 04/05/2017 for Anaphylaxis [T78.2XXA] and is in ICU 62 year old female presenting with shortness breath, feeling throat closing. Sudden onset, duration approximately 30 minutes prior to arrival, constant, worsening, improved with subcutaneous epinephrine self administration ?3, albuterol by EMS; associated with mild periorbital edema which patient states is typical; context-patient at the ophthalmologists who instilled 2 eyedrops inciting reaction. Patient states long history of anaphylactic reactions to multiple triggers; history of intubation in the past, states about 50% of the time she will have rebound symptoms as the epinephrine wears off and will require admission. ED course: Review of Systems: Constitutional: Negative for chills and fever. HENT: Negative for sore throat, trouble swallowing and voice change. Eyes: Negative for visual disturbance. Respiratory: Positive for chest tightness and shortness of breath. Gastrointestinal: Negative for abdominal pain, diarrhea, nausea and vomiting. Endocrine: Negative for polyuria. Genitourinary: Negative for dysuria. Musculoskeletal: Negative for back pain. Skin: Negative for rash and wound. Neurological: Negative for syncope and light-headedness. Psychiatric/Behavioral: Negative for confusion. The review of systems was otherwise negative. Past Medical History: PAST MEDICAL HISTORY Diagnosis Date - Abdominal pain, other specified site - ACNE NEC 01/21/2008 - Actinic Keratosis (Premalignant AK) 06/05/2011 - ACUTE GASTRITIS W/O HEMORRHAGE 04/26/2007 - Allergic rhinitis 04/23/2012 - Anaphylactic reaction ideopathic - Benign tumor of adrenal gland - Biliary dyskinesia 10/29/2009 - Cervical herniated disc 10/20/2016 - Cervical myelopathy (HCC) 10/25/2016 - Cervical radiculitis 10/20/2016 - Cervical spondylosis with radiculopathy 11/17/2015 - JAIN ANGIOMA///NEVUS, NON-NEOPLASTIC 05/28/2007 - CKD (chronic kidney disease) stage 3, GFR 30-59 ml/min 04/29/2013 - Diaphragmatic hernia without mention of obstruction or gangrene 05/25/2011 - Diverticulosis of colon (without mention of hemorrhage) - Edema 07/07/2004 - Epigastric pain - GERD (gastroesophageal reflux disease) - HTN (hypertension) 2002 controlled on Diovan - Hyperlipidemia 10/15/2013 - IRON DEFIC ANEMIA NOS 04/26/2007 - Moderate persistent asthma without complication 02/18/2015 - Ovarian cyst Benign ovarian cyst, S/P laparoscopic LSO - Ptosis of eyelid, bilateral 12/23/2016 Added automatically from request for surgery [id number] - Shoulder impingement 11/17/2015 - Sleep apnea intollerant to CPAP because allergic to material on mask - Steroid-induced hyperglycemia 09/06/2014 - TACHYCARDIA NOS 01/09/2006 - Tarsal tunnel syndrome 12/23/2009 - Tear of lateral meniscus of knee 02/21/2014 - Ulcerative colitis, unspecified - UTERINE LEIOMYOMA NOS 12/23/2005 - VIRAL WARTS NOS 05/09/2006 - Vocal cord dysfunction Past Surgical History: PAST SURGICAL HISTORY Procedure Laterality Date - CHOLECYSTECTOMY HX - COLONOSCOP W/ OR W/O BRSH SPEC 09/06/2005 Colonoscopy - COLONOSCOP W/ OR W/O BRS SPEC Colonoscopy - COLONOSCOP W/ OR W/O [facility] SPEC 05/28/2012 Colonoscopy repeat 5 years. - EGD 07/29/14 normal - EGD W/O OR W/BRUSH/WASH 09/06/2005 EGD - EGD W/O OR W/BRUSH/WASH 04/26/2007 EGD - EGD W/O OR W/BRUSH/WASH 05/25/2011 EGD - EGD W/O OR W/BRUSH/WASH 05/28/2012 EGD - L'SCOPE REM ADNEX W/PART/TOT OOPH/SALP 06/11/2009 Laparoscopic LSO for benign ovarian cyst - LAMINECTOMY,CERVICAL 10/2016 - LAP CHOLECYSTECT/CHOLANGIOGRAPHY 10/30/09 Normal IOC - ORTHOPEDICS SURGERY HX 12/2013 repaired Rt achilles tendon - PAST SURGICAL HISTORY OF 09/19 left foot surgery on heel and repaired torn tdndon - SIGMOIDOSCOPY FLEX DIAG 05/20/08 - TARSAL TUNNEL RELEASE 07/2010 Left foot Work and Exposure Histories: Social History Marital status: Spouse name: Ezio Years of education: 14 Number of children: 3 Occupational History 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 Alive at 85. - Hypertension Father Alive at 85. - Cataract Father Alive at 85. - Thyroid Father Alive at 85. - Heart Father [place] at 87 - Diabetes Mother colon polyps. age 72. - Hypertension Mother age 72. - benign brainstem tumor [OTHER] Mother Persistent vegetative state. age 72. - defects Sister - Glaucoma Maternal Grandmother - Stroke Maternal Grandfather - Cancer Paternal Grandmother cervical - Colon Cancer Son 38 colon and rectal cancer - Breast Cancer Sister Developed in late 20s. Alive at 53. - Osteoporosis Sister - colon polyps [OTHER] Sister 3 sisters with colon polyps Allergies: Avocado; Banana; Carbinoxamine; Yoselin Seed; Ciprofloxacin; Codeine; Contrast Dye; Dulera [Mometasone-Formoterol]; Fish; Hycodan [Hydrocodone-Homatropine]; Latex; Imtiaz-Synephrine [Phenylephrine Hcl]; Nickel; Nsaids (Non-Steroidal Anti-Inflammatory Drug); Oxycodone; Periactin [Cyproheptadine]; Pneumococcal Vaccine; Shellfish; Zantac [Ranitidine]; Ativan [Lorazepam]; Beef Containing Products; Berino; Eggs [Egg]; Ekg Leads [Adhesive]; Influenza Virus Vaccines; Lisinopril; Milk; Xolair [Omalizumab]; Environmental [Other]; Surgical Tape [Other] Medications: Outpatient Medications: predniSONE (DELTASONE) 10 mg tablet Take 2.5 tablets by mouth once daily. ergocalciferol, vitamin D2, (VITAMIN D) 50,000 unit capsule Take 1 capsule by mouth once each week. amLODIPine (NORVASC) 10 mg tablet Take 10 mg by mouth once daily. TURMERIC ROOT EXTRACT ORAL Take 1 tablet by mouth twice daily. nitroglycerin sublingual (NITROQUICK) 0.4 mg SL tablet DISSOLVE 1 TABLET UNDER THE TONGUE NEEDED FOR CHEST PAIN IF NO RELIEF CALL 911 budesonide (PULMICORT) 0.5 mg/2 mL nebulizer solution Use 1 Ampule via nebulizer twice daily. crisaborole (EUCRISA) 2 % oint Apply to the hands twice daily fluticasone-vilanterol (BREO ELLIPTA) 100-25 mcg/dose inhaler Inhale 1 Inhalation as instructed once daily. pregabalin (LYRICA) 150 mg capsule Take 1 capsule by mouth twice daily. cetirizine (ZYRTEC) 10 mg tablet Take 10 mg by mouth once daily. pimecrolimus (ELIDEL) 1 % cream Apply twice daily to the hands spironolactone (ALDACTONE) 50 mg tablet Take 1 tablet by mouth twice daily. ondansetron (ZOFRAN) 4 mg tablet Take 1 tablet by mouth every 8 hours as needed. Cholestyramine, Bulk, powd Take 1 scoop by mouth once daily. bumetanide (BUMEX) 0.5 mg tablet Take 1 tablet by mouth once daily. lansoprazole (PREVACID) 30 mg capsule Take 1 capsule by mouth twice daily. Azelastine 0.15 % (205.5 mcg) spry Use 1 Wilberforce in each nostril twice daily. levalbuterol tartrate HFA (XOPENEX HFA) 45 mcg/actuation inhaler Inhale 1-2 Puffs as instructed every 6 hours as needed for Wheezing/Shortness of Breath. levalbuterol (XOPENEX) 1.25 mg/3 mL nebulizer solution Use 1 Ampule via nebulizer every 4 hours as needed. Inhale over 5-15 minutes fluticasone (FLONASE) 50 mcg/actuation nasal spray 1-2 sprays each side qd Benzonatate 200 mg capsule Take 200 mg by mouth three times daily as needed for Cough. lactobacillus rhamnosus (CULTURELLE) 10 billion cell capsule Take 1 capsule by mouth twice daily. famotidine (PEPCID) 20 mg tablet Take 1 tablet by mouth twice daily. diphenhydrAMINE (BENADRYL) 50 mg capsule Take 1 capsule by mouth every 6 hours as needed for Itching/Rash. EPINEPHrine 0.3 mg/0.3 mL auto-injector Inject 0.3 mL intramuscularly as needed. amoxicillin (POLYMOX, AMOXIL) 250 mg capsule Take 250 mg by mouth once daily. zafirlukast (ACCOLATE) 20 mg tablet Take 1 tablet by mouth twice daily. doxazosin (CARDURA) 2 mg tablet Take 2 mg by mouth once daily. cycloSPORINE Modified 50 mg capsule Take 50 mg by mouth twice daily. ascorbic acid (VITAMIN C) 500 mg tablet Take 1 tablet by mouth once daily. COMPOUNDED PRESCRIPTION Nocturnal oximetry on room air. COMPOUNDED PRESCRIPTION Please provide patient with nebulizer machine and supplies.Diagnosis: Severe Asthma. Inpatient Medications: Current hospital medications: EPINEPHrine 1 mg/mL (1 mL) 0.3 mg injection 0.3 mg INTRAMUSCULAR PRN PHYSICAL EXAM: Vital Signs: BP 125/51 Pulse 117 Temp 36.8 ?C (98.3 ?F) (Oral) Resp 17 Ht 160 cm (5' 2.99) Wt 92.3 kg (203 lb 7.8 oz) LMP 08/04/2013 SpO2 96% BMI 36.05 kg/m2 Ventilator Settings: ; ; ; ; ; Respiratory/Nursing Documentation: O2 Therapy: Nasal Cannula (04/05/17 1415) Constitutional: She is oriented to person, place, and time. She appears well-developed and well-nourished. No distress. Patient sitting upright in bed converses easily in full sentences, no visible sign of distress or discomfort at this time HENT: Head: Normocephalic. Mouth/Throat: Oropharynx is clear and moist. No oropharyngeal exudate. Mild periorbital edema; Mallampati 2, short neck, obese neck Eyes: Conjunctivae are normal. Pupils are equal, round, and reactive to light. Right eye exhibits no discharge. Left eye exhibits no discharge. Neck: Normal range of motion. No tracheal deviation present. Cardiovascular: Normal heart sounds and intact distal pulses. Exam reveals no gallop and no friction rub. No murmur heard. Tachycardic Pulmonary/Chest: Effort normal and breath sounds normal. No stridor. No respiratory distress. She has no wheezes. She has no rales. Mild tachypnea Abdominal: Soft. Bowel sounds are normal. She exhibits no distension. There is no tenderness. There is no rebound and no guarding. Obese Musculoskeletal: Normal range of motion. She exhibits no edema or tenderness. Neurological: She is alert and oriented to person, place, and time. Coordination normal. Skin: Skin is warm and dry. No rash noted. She is not diaphoretic. No erythema. Psychiatric: She has a normal mood and affect. Her behavior is normal. Judgment and thought content normal. Nursing note and vitals reviewed Labs / Imaging / Diagnostic Studies: All personally reviewed by me Data Reviewed: No results for input(s): PH, PO2, PCO2, HCO3, LACT in the last 168 hours. Recent Labs 04/05/17 1105 WBC 9.45 HB 15.3 HCT 45.2 PLT 300 No results for input(s): INR, APTT in the last 168 hours. Recent Labs 04/05/17 1105 CREAT 1.19* BUN 20 NA 144 K 3.6 CO2 21* CA 9.9 MG 2.0 AST 26 ALT 27 ALKPHOS 93 TBILI 0.7 No results for input(s): CK, CKMB, TROPT in the last 168 hours. [facility] Pulmonary Function La b Pred LLN ULN Pre % Date [id number] Time 08:09AM Height 162.6 Weight 90 FVC 3.31 2.62 4.00 2.65 80 FEV 1 2.56 1.97 3.14 2.03 79 FEV1%F 78.06 68.26 87.85 76.58 98 Assessment: Ms. Joshi is a 62 year old female admitted on 04/05/2017 for Anaphylaxis [T78.2XXA] IMPRESSION: 1. Anaphylaxis post eye drops ?phenylephrine 2. Asthma 3. Allergic rhinitis 4. CKD 3 5. Essential HTN PLAN: ? Anaphylaxis from eye drops - required multiple dose of epi, benadryl pepcid and steroid ? As there was recurrence of sxs transferred to ICU ? Continue Steroid benadryl pepcid and prn epi ? resum ehom emedication ? Dr Roberts for primary Plan updated with Family and Bedisde Nurse This patient has a high probability of sudden, clinically significant deterioration, which requires the highest level of physician preparedness to intervene urgently. I managed/supervised life or organ supporting interventions that required frequent physician assessment. I devoted my full attention to the direct care of this patient for the amount of time indicated below. Time I spent with family or surrogate(s) is included only if the patient was incapable of providing the necessary information or participating in medical decision making. Time devoted to teaching and to any procedures I billed separately is not included. Critical Care Documentation: The patient has the following organ/system impairment(s): Anaphylaxis Time spent providing critical care services: 35 minutes. Raudel Salas MD April 05, 2017, 3:53 PM Pulmonary AND Critical Care Medicine [facility] Pager: [phone] NURSING PROG Observed: 04/05/2017 Status: COMPLETED Source: [place] 2:48 PM [facility] REPOSITORY HNO ID: [id number] Author: Trudi Mckinnon (Rn) JONATHAN Gardner Service: Nursing Author Type: Registered Nurse Type: Nursing Progress Note Filed: 04/05/2017 5:48 PM Note Text: Nursing Progress Note Patient Name: Ralph Joshi Patient Location: -ICUA10/MM-ICUA-10 Daily Note:1415 received pt from ed with reaction to eye drops from eye exam no sign of discomfort at this time This note was completed by: Trudi Gardner RN 1500 vss no complaints resting son visiting 1515 dr salas here to see pt and he will place orders 1600 vss still awaiting order from dr salas Pt has no condition or assessment changes resting without difficulty 1700 up to bathroom voided no distress no complaints of discomfort than back to bed 1800 vss no condition or assessment changes ED NOTE Observed: 04/05/2017 Status: COMPLETED Source: [place] 2:15 PM [facility] [place] REPOSITORY HNO ID: [id number] Author: Stephanie (Rn) JONATHAN Rao Service: (none) Author Type: Registered Nurse Type: ED Notes Filed: 04/05/2017 2:20 PM Note Text: PT. showing signs of reaction. Epi given IM per order. PLAN OF CARE Observed: 04/05/2017 Status: COMPLETED Source: [place] 2:06 PM [facility] REPOSITORY HNO ID: [id number] Author: Chio Hernandez (District Agent) Service: Pharmacy Author Type: Pharmacist Type: Plan of Care Filed: 04/05/2017 7:29 PM Note Text: MEDICATION HISTORY Patient Name:Taylor Joshi : 1955 Source of history:Patient: Reliability of source: Appears reliable, clearly identified: Medication name, Medication dose, Medication frequency, Timing of last dose and Indications Medication Nonadherence Identified: No barriers noted The above information represents the best possible medication history: Yes Additional comments: N/A Assessment: Reviewed prior to admission medications list. 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 ?LAP POLISHER medications list is updated with current?active medications. ?? Medication Changes Made to Prior to Admission List: ?? Medication Change/Update amLODIPine (NORVASC) 10 mg tablet Per patient, takes 10 mg once daily cycloSPORINE Modified 50 mg capsule Per patient, last dose was today 04/05/17 AM predniSONE (DELTASONE) 10 mg tablet Per patient, takes everyday 25 mg TURMERIC ROOT EXTRACT ORAL Per patient, takes twice daily. ergocalciferol, vitamin D2, (VITAMIN D) 50,000 unit capsule Per patient, takes every Monday. amoxicillin (POLYMOX, AMOXIL) 250 mg capsule Per patient, takes everyday last dose was yesterday 04/04/17 at PM. Allergies: ALLERGIES Allergen Reactions - Avocado Anaphylaxis - Banana Anaphylaxis - Carbinoxamine Anaphylaxis - Yoselin Seed Anaphylaxis - Ciprofloxacin Anaphylaxis - Codeine Anaphylaxis - Contrast Dye Anaphylaxis To MRI and CT - Dulera [Mometasone-* Anaphylaxis - Fish Anaphylaxis - Hycodan [Hydrocodon* Anaphylaxis Face and throat swelling - Latex Anaphylaxis - Imtiaz-Synephrine [Phe* Anaphylaxis 10% eye drop - Nickel Rash, Hives, Anaphylaxis - Nsaids (Non-Steroid* Other: See Comments Kidney function drops; reversible kidney damage. - Oxycodone Anaphylaxis - Periactin [Cyprohep* Anaphylaxis - Pneumococcal Vaccine Anaphylaxis - Shellfish Anaphylaxis - Zantac [Ranitidine] Anaphylaxis - Ativan [Lorazepam] Other: See Comments hallucination - Beef Containing Pro* Rash - Berino Other: See Comments Feels like an asthma attack. - Eggs [Egg] Rash, Vomiting - Ekg Leads [Adhesive] Rash Localized,only under the leads - Influenza Virus Vac* Shortness of Breath - Lisinopril Cough - Milk Rash, Vomiting - Xolair [Omalizumab] Shortness of Breath - Environmental [Othe* Other: See Comments Nasal congestion, brings on an asthma attack. - Surgical Tape [Othe* Rash, Swelling Oral rash, swelling of eyes, asthma attacks; per pateint report. Preferred Pharmacy: [facility] [place] [address] [address] [facility] - [phone] [facility] [place] [address] [address] [facility] [phone] Current LAP POLISHER Medications: Prior to Admission medications as of 04/05/171924 Medication Sig Last Dose Taking predniSONE (DELTASONE) 10 mg tablet Take 2.5 tablets by mouth once daily. Patient taking differently: Take 25 mg by mouth once daily. Total 25 mg daily 04/04/2017 Yes ergocalciferol, vitamin D2, (VITAMIN D) 50,000 unit capsule Take 1 capsule by mouth once each week. Patient taking differently: Take 50,000 Units by mouth once each week. Every Monday04/03/2017 Yes amLODIPine (NORVASC) 10 mg tablet Take 10 mg by mouth once daily. 04/04/2017 Yes TURMERIC ROOT EXTRACT ORAL Take 1 tablet by mouth twice daily. 04/04/2017 Yes COMPOUNDED PRESCRIPTION Nocturnal oximetry on room air. 04/04/2017 Yes nitroglycerin sublingual (NITROQUICK) 0.4 mg SL tablet DISSOLVE 1 TABLET UNDER THE TONGUE NEEDED FOR CHEST PAIN IF NO RELIEF CALL 911 04/04/2017 Yes budesonide (PULMICORT) 0.5 mg/2 mL nebulizer solution Use 1 Ampule via nebulizer twice daily. 04/04/2017 Yes crisaborole (EUCRISA) 2 % oint Apply to the hands twice daily 04/04/2017 Yes COMPOUNDED PRESCRIPTION Please provide patient with nebulizer machine and supplies. Diagnosis: Severe Asthma. 04/04/2017 Yes fluticasone-vilanterol (BREO ELLIPTA) 100-25 mcg/dose inhaler Inhale 1 Inhalation as instructed once daily. 04/04/2017 Yes pregabalin (LYRICA) 150 mg capsule Take 1 capsule by mouth twice daily. 04/04/2017 Yes cetirizine (ZYRTEC) 10 mg tablet Take 10 mg by mouth once daily. 04/04/2017 Yes pimecrolimus (ELIDEL) 1 % cream Apply twice daily to the hands 04/04/2017 Yes spironolactone (ALDACTONE) 50 mg tablet Take 1 tablet by mouth twice daily. 04/04/2017 Yes ondansetron (ZOFRAN) 4 mg tablet Take 1 tablet by mouth every 8 hours as needed. 04/04/2017 Yes Cholestyramine, Bulk, powd Take 1 scoop by mouth once daily. 04/05/2017 at AM Yes bumetanide (BUMEX) 0.5 mg tablet Take 1 tablet by mouth once daily. 04/04/2017 Yes lansoprazole (PREVACID) 30 mg capsule Take 1 capsule by mouth twice daily. 04/04/2017 Yes Azelastine 0.15 % (205.5 mcg) spry Use 1 Wilberforce in each nostril twice daily. 04/04/2017 Yes levalbuterol tartrate HFA (XOPENEX HFA) 45 mcg/actuation inhaler Inhale 1-2 Puffs as instructed every 6 hours as needed for Wheezing/Shortness of Breath. 04/04/2017 Yes levalbuterol (XOPENEX) 1.25 mg/3 mL nebulizer solution Use 1 Ampule via nebulizer every 4 hours as needed. Inhale over 5-15 minutes 04/04/2017 Yes fluticasone (FLONASE) 50 mcg/actuation nasal spray 1-2 sprays each side qd 04/04/2017 Yes Benzonatate 200 mg capsule Take 200 mg by mouth three times daily as needed for Cough. 04/04/2017 Yes lactobacillus rhamnosus (CULTURELLE) 10 billion cell capsule Take 1 capsule by mouth twice daily. 04/04/2017 Yes famotidine (PEPCID) 20 mg tablet Take 1 tablet by mouth twice daily. Patient taking differently: Take 20 mg by mouth twice daily. as needed 04/04/2017 Yes diphenhydrAMINE (BENADRYL) 50 mg capsule Take 1 capsule by mouth every 6 hours as needed for Itching/Rash. 04/04/2017 Yes EPINEPHrine 0.3 mg/0.3 mL auto-injector Inject 0.3 mL intramuscularly as needed. 04/04/2017 Yes amoxicillin (POLYMOX, AMOXIL) 250 mg capsule Take 250 mg by mouth once daily. 04/04/2017 at PM Yes zafirlukast (ACCOLATE) 20 mg tablet Take 1 tablet by mouth twice daily. 04/04/2017 Yes doxazosin (CARDURA) 2 mg tablet Take 2 mg by mouth once daily. 04/04/2017 Yes cycloSPORINE Modified 50 mg capsule Take 50 mg by mouth twice daily. 04/04/2017 Yes ascorbic acid (VITAMIN C) 500 mg tablet Take 1 tablet by mouth once daily. 04/04/2017 Yes Nena Rolle (Burrer Marker Axle) April 05, 2017 2:06 PM MEDICATION RECONCILIATION Patient Name:Taylor Joshi : 1955 Reconciliation: Yes Medications intentionally held at admission: amoxicillin, OTC meds, nasal sprays, PRN meds, creams, vitamin d, Culturelle, lansoprazole, inhalers, steroids Additional comments: agree with the above note completed by the pharmacy clinical specialist CHIO HERNANDEZ, METERMAN April 05, 2017 7:25 PM ED NOTE Observed: 04/05/2017 Status: COMPLETED Source: [place] 2:04 PM [facility] REPOSITORY HNO ID: [id number] Author: Stephanie MinorRn) JONATHAN Rao Service: (none) Author Type: Registered Nurse Type: ED Notes Filed: 04/05/2017 2:04 PM Note Text: Report called to Sharon LEAL at this time. ED NOTE Observed: 04/05/2017 Status: COMPLETED Source: [place] 1:45 PM [facility] REPOSITORY HNO ID: [id number] Author: Nelson MinorRn) Chandana, JONATHAN Service: (none) Author Type: Registered Nurse Type: ED Notes Filed: 04/05/2017 1:47 PM Note Text: Pt was coughing and complaining of a swelling throat and difficulty breathing. Epinephrine given IM per JUN. Pt coughing subsided and pt states she is no longer having difficulty breathing. MD in to assess pt. PROGRESS Observed: 04/05/2017 Status: COMPLETED Source: [place] 12:13 PM [facility] REPOSITORY HNO ID: [id number] Author: Bang Roberts Service: (none) Author Type: Physician Type: Progress Notes Filed: 04/05/2017 12:39 PM Note Text: Patient had reaction to drops and sent to ER: Immediately (within 1 second) of instillation of tropicamide 1% patient began coughing, breathing heavily, wheezing, stated her throat was closing. Patient gave herself and epipen. Immediately (within 1-2 seconds) upon patient self-administering her epipen into her right quad her symptoms resolved. Nurse team came to assist with patient care. Recommended patient go to ER due to unusual symptoms and history of anaphylaxis. Bang Roberts MD April 05, 2017 12:15 PM The documentation recorded by the scribe, if applicable, accurately reflects the service I personally performed and the decisions made by me. I have confirmed and edited as necessary the relevant ophthalmic history, ROS, and the neuro exam findings as obtained by others. I have seen and examined Ralph Joshi. I have discussed the case and the management of this patient's care with the Resident/Fellow/Economist Research Assistant, if applicable. I also have reviewed and agree with the assessment and plan as stated above and agree with all of its relevant components. PROGRESS Observed: 04/05/2017 Status: COMPLETED Source: [place] 12:09 PM [facility] REPOSITORY O ID: [id number] Author: Julienne Jones RN Service: (none) Author Type: (none) Type: Progress Notes Filed: 04/05/2017 12:39 PM Note Text: This note was created using [employer] Battery[employer]. Subjective Ralph Joshi is a 62 year old female. Review of Systems Objective LMP 08/04/2013 Physical Exam Assessment and Plan Nursing was called to the office this morning to see the patient who was having trouble breathing. Upon arrival, the patient is sitting up in the examination chair , She is speaking easily and in no apparent distress. The biomedical technician had just given her the dilation medication ( Tropicamide 1% ), when she started to cough and stated feeling her throat and tongue swelling. She has many allergies and carries epi pens with her. She administered her own epi pen (about 10:05 am) before I had gotten to the room. She says that she has had to use more than one epi pen in the past (up to 8 pens) and so she carries 3 or 4 with her at all times. She says that she has also been on an epi drip in the past when she was really bad. As we were talking , another clinical staff member went to get her son who is in the lobby . We are talking about her allergies all her life and she tells me that she feels it coming back. She coughs once or twice and then opens an epi pen and injects into her left lateral thigh (10:10 am). She tells me nearly instantly that she feels better now. I asked if she has always given he shot so quickly. She states that she has. She was told not to wait. VS: 150/92 Pulse of 106 apical reading. The ER squad was called because of the history of multiple shots. Patient remained alert and oriented throughout. She was discharged with the squad. Julienne Jones RN April 05, 2017 12:34 PM ED PROV NOTE Observed: 04/05/2017 Status: COMPLETED Source: [place] 12:06 PM [facility] REPOSITORY HNO ID: [id number] Author: Justen Gill Service: Emergency Medicine Author Type: Physician Type: ED Provider Notes Filed: 04/05/2017 1:54 PM Note Text: ED Provider Note Patient Name: Ralph Joshi SERVICE DATE: 04/05/17 History Patient presents with: Allergic Reaction: SOB, Epi x3 LAP POLISHER HPI Comments: 62 year old female presenting with shortness breath, feeling throat closing. Sudden onset, duration approximately 30 minutes prior to arrival, constant, worsening, improved with subcutaneous epinephrine self administration ?3, albuterol by EMS; associated with mild periorbital edema which patient states is typical; context-patient at the ophthalmologists who instilled 2 eyedrops inciting reaction. Patient states long history of anaphylactic reactions to multiple triggers; history of intubation in the past, states about 50% of the time she will have rebound symptoms as the epinephrine wears off and will require admission. 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 used: No PAST MEDICAL HISTORY Diagnosis Date - Abdominal pain, other specified site - ACNE NEC 01/21/2008 - Actinic Keratosis (Premalignant AK) 06/05/2011 - ACUTE GASTRITIS W/O HEMORRHAGE 04/26/2007 - Allergic rhinitis 04/23/2012 - Anaphylactic reaction ideopathic - Benign tumor of adrenal gland - Biliary dyskinesia 10/29/2009 - Cervical herniated disc 10/20/2016 - Cervical myelopathy (HCC) 10/25/2016 - Cervical radiculitis 10/20/2016 - Cervical spondylosis with radiculopathy 11/17/2015 - JIAN ANGIOMA///NEVUS, NON-NEOPLASTIC 05/28/2007 - CKD (chronic kidney disease) stage 3, GFR 30-59 ml/min 04/29/2013 - Diaphragmatic hernia without mention of obstruction or gangrene 05/25/2011 - Diverticulosis of colon (without mention of hemorrhage) - Edema 07/07/2004 - Epigastric pain - GERD (gastroesophageal reflux disease) - HTN (hypertension) 2002 controlled on Diovan - Hyperlipidemia 10/15/2013 - IRON DEFIC ANEMIA NOS 04/26/2007 - Moderate persistent asthma without complication 02/18/2015 - Ovarian cyst Benign ovarian cyst, S/P laparoscopic LSO - Ptosis of eyelid, bilateral 12/23/2016 Added automatically from request for surgery [id number] - Shoulder impingement 11/17/2015 - Sleep apnea intollerant to CPAP because allergic to material on mask - Steroid-induced hyperglycemia 09/06/2014 - TACHYCARDIA NOS 01/09/2006 - Tarsal tunnel syndrome 12/23/2009 - Tear of lateral meniscus of knee 02/21/2014 - Ulcerative colitis, unspecified - UTERINE LEIOMYOMA NOS 12/23/2005 - VIRAL WARTS NOS 05/09/2006 - Vocal cord dysfunction PAST SURGICAL HISTORY Procedure Laterality Date - CHOLECYSTECTOMY HX - COLONOSCOP W/ OR W/O [facility] SPEC 09/06/2005 Colonoscopy - COLONOSCOP W/ OR W/O [facility] SPEC Colonoscopy - COLONOSCOP W/ OR W/O [facility] SPEC 05/28/2012 Colonoscopy repeat 5 years. - EGD 07/29/14 normal - EGD W/O OR W/BRUSH/WASH 09/06/2005 EGD - EGD W/O OR W/BRUSH/WASH 04/26/2007 EGD - EGD W/O OR W/BRUSH/WASH 05/25/2011 EGD - EGD W/O OR W/BRUSH/WASH 05/28/2012 EGD - L'SCOPE REM ADNEX W/PART/TOT OOPH/SALP 06/11/2009 Laparoscopic LSO for benign ovarian cyst - LAMINECTOMY,CERVICAL 10/2016 - LAP CHOLECYSTECT/CHOLANGIOGRAPHY 10/30/09 Normal IOC - ORTHOPEDICS SURGERY HX 12/2013 repaired Rt achilles tendon - PAST SURGICAL HISTORY OF 09/19 left foot surgery on heel and repaired torn tdndon - SIGMOIDOSCOPY FLEX DIAG 05/20/08 - TARSAL TUNNEL RELEASE 07/2010 Left foot FAMILY HISTORY Problem Relation Age of Onset - Colon Cancer Father dx age 60. Alive at 85. - Hypertension Father Alive at 85. - Cataract Father Alive at 85. - Thyroid Father Alive at 85. - Heart Father [place] at 87 - Diabetes Mother colon polyps. age 72. - Hypertension Mother age 72. - benign brainstem tumor [OTHER] Mother Persistent vegetative state. age 72. - defects Sister - Glaucoma Maternal Grandmother - Stroke Maternal Grandfather - Cancer Paternal Grandmother cervical - Colon Cancer Son 38 colon and rectal cancer - Breast Cancer Sister Developed in late 20s. Alive at 52. - Osteoporosis Sister - colon polyps [OTHER] Sister 3 sisters with colon polyps Social History Social History Main Topics - Smoking status: Never Smoker - Smokeless tobacco: Never Used - Alcohol use No - Drug use: No - Sexual activity: Yes Partners: Male control/ protection: Condom ALLERGIES Allergen Reactions - Avocado Anaphylaxis - Banana Anaphylaxis - Carbinoxamine Anaphylaxis - Yoselin Seed Anaphylaxis - Ciprofloxacin Anaphylaxis - Codeine Anaphylaxis - Contrast Dye Anaphylaxis To MRI and CT - Dulera [Mometasone-* Anaphylaxis - Fish Anaphylaxis - Hycodan [Hydrocodon* Anaphylaxis Face and throat swelling - Latex Anaphylaxis - Imtiaz-Synephrine [Phe* Anaphylaxis 10% eye drop - Nickel Rash, Hives, Anaphylaxis - Nsaids (Non-Steroid* Other: See Comments Kidney function drops; reversible kidney damage. - Oxycodone Anaphylaxis - Periactin [Cyprohep* Anaphylaxis - Pneumococcal Vaccine Anaphylaxis - Shellfish Anaphylaxis - Zantac [Ranitidine] Anaphylaxis - Ativan [Lorazepam] Other: See Comments hallucination - Beef Containing Pro* Rash - Berino Other: See Comments Feels like an asthma attack. - Eggs [Egg] Rash, Vomiting - Ekg Leads [Adhesive] Rash Localized,only under the leads - Influenza Virus Vac* Shortness of Breath - Lisinopril Cough - Milk Rash, Vomiting - Xolair [Omalizumab] Shortness of Breath - Environmental [Othe* Other: See Comments Nasal congestion, brings on an asthma attack. - Surgical Tape [Othe* Rash, Swelling Oral rash, swelling of eyes, asthma attacks; per pateint report. Review of Systems Constitutional: Negative for chills and fever. HENT: Negative for sore throat, trouble swallowing and voice change. Eyes: Negative for visual disturbance. Respiratory: Positive for chest tightness and shortness of breath. Gastrointestinal: Negative for abdominal pain, diarrhea, nausea and vomiting. Endocrine: Negative for polyuria. Genitourinary: Negative for dysuria. Musculoskeletal: Negative for back pain. Skin: Negative for rash and wound. Neurological: Negative for syncope and light-headedness. Psychiatric/Behavioral: Negative for confusion. Physical Exam BP 123/72 Pulse 135 Temp (Src) 97.5 (Oral) Resp 20 SpO2 98% LMP 08/04/2013 Physical Exam Constitutional: She is oriented to person, place, and time. She appears well-developed and well-nourished. No distress. Patient sitting upright in bed converses easily in full sentences, no visible sign of distress or discomfort at this time HENT: Head: Normocephalic. Mouth/Throat: Oropharynx is clear and moist. No oropharyngeal exudate. Mild periorbital edema; Mallampati 2, short neck, obese neck Eyes: Conjunctivae are normal. Pupils are equal, round, and reactive to light. Right eye exhibits no discharge. Left eye exhibits no discharge. Neck: Normal range of motion. No tracheal deviation present. Cardiovascular: Normal heart sounds and intact distal pulses. Exam reveals no gallop and no friction rub. No murmur heard. Tachycardic Pulmonary/Chest: Effort normal and breath sounds normal. No stridor. No respiratory distress. She has no wheezes. She has no rales. Mild tachypnea Abdominal: Soft. Bowel sounds are normal. She exhibits no distension. There is no tenderness. There is no rebound and no guarding. Obese Musculoskeletal: Normal range of motion. She exhibits no edema or tenderness. Neurological: She is alert and oriented to person, place, and time. Coordination normal. Skin: Skin is warm and dry. No rash noted. She is not diaphoretic. No erythema. Psychiatric: She has a normal mood and affect. Her behavior is normal. Judgment and thought content normal. Nursing note and vitals reviewed. Diagnostic Testing ED Labs Ordered and Reviewed CBC + AUTO DIFF (AK,AV,EU,FV,HL,VIJAY,MM,SP) - Abnormal; Notable for the following: Result Value Ref Range Abs Potter 0.96 (*) <0.87 k/uL All other components within normal limits COMPREHENSIVE METABOLIC PANEL (AK,AV,EU,FV,HL,VIJAY,MM,SP) - Abnormal; Notable for the following: Glucose 163 (*) 74 - 99 mg/dL Creatinine 1.19 (*) 0.51 - 0.95 mg/dL CO2 21 (*) 22 - 29 mmol/L Anion Gap 19 (*) 0 - 15 mmol/L eGFR- 56 (*) >60 eGFR-All Other Races 46 (*) >60 . All other components within normal limits MAGNESIUM BLOOD (AK,AV,EU,FV,HL,VIJAY,MM,SP) Procedures Medical Decision Making / ED Course ED Course 62 female history of multiple allergies resulting in anaphylaxis presenting for shortness of breath, throat tightness after instillation of eyedrops at the graphic editor. She is status post intramuscular epinephrine ?3 given by herself, albuterol nebulize treatment by EMS. Patient states she is feeling improved. Rapid Solu-Medrol, Benadryl, Pepcid given. CBC no leukocytosis or anemia; BMP no severe electrolyte M [place] or [place]; magnesium normal. Close monitoring; multiple reassessment finds the patient VSS without further complaint. Ulcer in the patient, approximately 2 hours after arrival begins having throat tightening, difficulty breathing, tachypnea, cough with upper airway stridor; improves with 0.5 mg IM epinephrine. Will need admission to ICU with close observation at this point. Encounter Diagnosis ICD-10-CM 1. Anaphylaxis, initial encounter T78.2XXA 2. Respiratory distress R06.03 Plan The Patient was admit ICU Condition at time of disposition: stable and critical Thank you, Justen Gill MD Emergency Department [facility] SIGNATURE: Justen Gill MD Critical Care I spent a total of 34 minutes of critical care time in the evaluation and management of this patient. This was necessary to treat or prevent deterioration of the following condition(s): Respiratory impairment, which the patient had and/or has a high probability of suddenly developing. The patient received solumedrol, pepcid, benadryl, IM epi and IV Fluids during the time that critical care was provided. Critical care time excludes separately billed procedures. 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 TBD Patient's transition needs and plan for meeting these needs: home Does the patient have an acute stroke diagnosis, or has the patient had a stroke during this admission? No ADVANCE DIRECTIVES: Does Patient Have Advance Directives? Yes: Durable Power of Candy Packer for Health Care: Ezio-spouse , copy is in chart Does Patient Have Concerns About Advance Directives? No PRIOR TO ADMISSION: Baseline Mental Status: Alert AND Oriented, Person, Place , Time and Situation Functional Status: Independent Does Patient Currently Receive Any Community Services or Home Care? None Equipment Prior to Admission: Walker-doesn't use HEALTH: Health Issues Impacting Discharge Plan: None Health Literacy Issues: No PSYCHOSOCIAL: Is the Patient Psychosocially Complex? No Family/Patient Understanding of Illness/Diagnosis: yes Medication Adherence: Do you forget to take your medications? I do not forget to take my medication Have you ever stopped taking medications because you felt worse? None of the time Have you ever taken less of your medication than what was prescribed by your doctor? None of the time In the past 3 months, have you had issues obtaining one or more of your medications? None of the time Are you interested in bedside delivery of your medications? No Food Concerns: In the Last Month, Have You had Trouble Getting Food? No trouble getting food During the Last Month, Have You Worried Whether Your Food Would Run Out Before You Had Enough Money to Buy More? No Psychosocial Needs: None UTILIZATION: Last Admission Date: Previous admit date: 10/25/2016 Is this Within the Past 30 days? No Has the Patient Been in a Group Home Facility in the Past 30 days? No FREEDOM OF CHOICE EXPLAINED: Financial Disclosure Provided The patient and/or family has been given the Provider List: Yes HANDOFF COMMUNICATION: Floor KAI/CM Met with patient and son in ED. Patient states she lives with her spouse and son and is independent with ADL's and still drives. She has a walker from a previous admission but doesn't currently use it. Patient denies any concerns at this time and plans to return home with self- care. Will follow. SIGNATURE: ALISIA Toledo PATIENT NAME: Ralph Joshi DATE: April 05, 2017 TIME: 11:39 AM PAGER/CONTACT #: [phone] CBC AND DIFFERENTIAL Collected: 04/05/2017 Status: F Source: [facility] [facility] 11:05 AM [facility] OTHER [facility]US REPOSITORY TYPE CODE TESTS RESULT OUT OF REFERENCE UNITS RANGE LAB WBC 3.70-11.00 k/uL WBC 9.45 LAB RBC 3.90-5.20 m/uL RBC 5.17 LAB HGB 11.5-15.5 g/dL Hemoglobin 15.3 LAB HCT 36.0-46.0 % Hematocrit 45.2 LAB MCV 80.0-100.0 fL MCV 87.4 LAB MCH 26.0-34.0 pG MCH 29.6 LAB MCHC 30.5-36.0 g/dL MCHC 33.8 LAB RDWCV 11.5-15.0 % RDW-CV 13.6 LAB PLTCT 150-400 k/uL Platelet Count 300 LAB MPV 9.0-12.7 fL MPV 11.1 LAB NEUTS % Neut% 50.5 LAB AANEUT 1.45-7.50 k/uL Abs Neut 4.78 LAB LYMPHS % Lymph% 36.0 LAB AALYMP 1.00-4.00 k/uL Abs Lymph 3.40 LAB MONOS % Potter% 10.2 LAB AAMONO <0.87 k/uL Abs Potter High 0.96 LAB EOS % Eosin% 2.3 LAB AAEOS <0.46 k/uL Abs Eosin 0.22 LAB BASOS % Baso% 1.0 LAB AABASO <0.11 k/uL Abs Baso 0.09 LAB AUNRBC 0 /100 WBC NRBCs 0.0 LAB ABNRBC <0.01 k/uL Absolute nRBC <0.01 LAB DTYP DTYPE Auto Diff Performed By: #### CBCDIF, CMP, MG1 #### [facility] [address] [place] [id number] COMP METABOLIC PANEL Collected: 04/05/2017 Status: F Source: [place] 11:05 AM [facility] REPOSITORY TYPE CODE TESTS RESULT OUT OF REFERENCE UNITS RANGE LAB TP 6.6-8.7 g/dL Protein, Total 7.4 LAB ALB 4.0-4.9 g/dL Albumin 4.6 LAB CA 8.5-10.2 mg/dL Calcium, Total 9.9 Result Comment: Recommended reference range provided for this age range is published by the instrument supervisor multifocal lens. Adult reference ranges have been verified. LAB TBIL 0.0-1.2 mg/dL Bilirubin, Total 0.7 LAB ALKP 35-105 U/L Alkaline Phosphatase 93 LAB AST 0-32 U/L AST 26 LAB GLU 74-99 mg/dL Glucose High 163 LAB BUN 8-23 mg/dL BUN 20 Result Comment: Recommended reference range provided for this age range is published by the instrument supervisor multifocal lens. Adult reference ranges have been verified. LAB CRET 0.51-0.95 mg/dL High Creatinine 1.19 LAB NA 136-144 mmol/L Sodium 144 LAB K 3.4-4.5 mmol/L Potassium 3.6 LAB CL 98-107 mmol/L Chloride 104 LAB CO2 22-29 mmol/L CO2 Low 21 LAB AGAP 0-15 mmol/L Anion High Gap 19 LAB ALT 0-33 U/L ALT 27 LAB GFRAA >60 Low eGFR- Amer. 56 LAB GFRNAA >60 . eGFR-All Low Other Races 46 Result Comment: eGFR (Estimated GFR) Units of measure: mL/min/1.73 meters squared eGFR is derived from the 4 variable MDRD equation for glomerular filtration rate (GFR) based on a stable serum creatinine, gender, and age. According to KDOQI guidelines, an eGFR <60 mL/min/1.73m2 is sufficient to diagnose a patient with chronic kidney disease. Performed By: #### CBCDIF, CMP, MG1 #### [facility] [address] [facility] [place] [address] MAGNESIUM Collected: 04/05/2017 Status: F Source: [place] 11:05 AM [facility] OTHER [place] REPOSITORY TYPE CODE TESTS RESULT OUT OF REFERENCE UNITS RANGE LAB MG 1.6-2.4 mg/dL Magnesium 2.0 Result Comment: Recommended reference range provided for this age range is published by the instrument supervisor multifocal lens. Adult reference ranges have been verified. Performed By: #### CBCDIF, CMP, MG1 #### [facility] [address] [place] [address] ED NOTE Observed: 04/05/2017 Status: COMPLETED Source: [place] 11:00 AM [facility] REPOSITORY HNO ID: [id number] Author: Stephanie (Rn) JONATHAN Rao Service: (none) Author Type: Registered Nurse Type: ED Notes Filed: 04/05/2017 11:05 AM Note Text: Pt to the ED c/c allergic reaction. PT. States she was at her eye doctor today and was given eye drops, causing an allergic reaction. PT. States she felt SOB, and has a hx of anaphalaxis, requiring EPI. PT. Gave her self 2 IM doses of her personal EPI, and 1 additional with EMS. Pt. Was given a breathing treatment x1 by EMS. PT. Is calm, VSS at this time. I have reviewed the ED Triage information and verify it to be accurate. Plan of care -Monitor Patient's Vital Signs for changes in condition -Monitor patient for changes in pain -Maintain patient safety and privacy -Provide comfort measures -Call light in place Siderails up, bed in locked and low position ED NOTE Observed: 04/05/2017 Status: COMPLETED Source: [place] 10:59 AM [facility] REPOSITORY HNO ID: [id number] Author: Stephanie (RnTiarra Rao RN Service: (none) Author Type: Registered Nurse Type: ED Notes Filed: 04/05/2017 10:59 AM Note Text: Bed: ED-28 Expected date: Expected time: Means of arrival: Comments: [facility] Observed: 04/05/2017 Status: COMPLETED Source: [place] 10:00 AM [facility] REPOSITORY Office Visit OPHT (OPHTIN) RALPH JOSHI ([id number]) 1955 F Date Time Provider Department 04/05/17 10:00 AM BANG ROBERTS During your visit today, we recorded the following information about you: Julienne Jones RN 04/05/2017 12:39 PM Signed This note was created using Miro. Subjective Ralph Joshi is a 62 year old female. Review of Systems Objective LMP 08/04/2013 Physical Exam Assessment and Plan Nursing was called to the office this morning to see the patient who was having trouble breathing. Upon arrival, the patient is sitting up in the examination chair , She is speaking easily and in no apparent distress. The biomedical technician had just given her the dilation medication ( Tropicamide 1% ), when she started to cough and stated feeling her throat and tongue swelling. She has many allergies and carries epi pens with her. She administered her own epi pen (about 10:05 am) before I had gotten to the room. She says that she has had to use more than one epi pen in the past (up to 8 pens) and so she carries 3 or 4 with her at all times. She says that she has also been on an epi drip in the past when she was really bad. As we were talking , another clinical staff member went to get her son who is in the lobby . We are talking about her allergies all her life and she tells me that she feels it coming back. She coughs once or twice and then opens an epi pen and injects into her left lateral thigh (10:10 am). She tells me nearly instantly that she feels better now. I asked if she has always given he shot so quickly. She states that she has. She was told not to wait. VS: 150/92 Pulse of 106 apical reading. The ER squad was called because of the history of multiple shots. Patient remained alert and oriented throughout. She was discharged with the squad. Julienne Jones RN April 05, 2017 12:34 PM Bang Roberts MD 04/05/2017 12:39 PM Signed Patient had reaction to drops and sent to ER: Immediately (within 1 second) of instillation of tropicamide 1% patient began coughing, breathing heavily, wheezing, stated her throat was closing. Patient gave herself and epipen. Immediately (within 1-2 seconds) upon patient self-administering her epipen into her right quad her symptoms resolved. Nurse team came to assist with patient care. Recommended patient go to ER due to unusual symptoms and history of anaphylaxis. Bang Roberts MD April 05, 2017 12:15 PM The documentation recorded by the scribe, if applicable, accurately reflects the service I personally performed and the decisions made by me. I have confirmed and edited as necessary the relevant ophthalmic history, ROS, and the neuro exam findings as obtained by others. I have seen and examined Ralph Joshi. I have discussed the case and the management of this patient's care with the Resident/Fellow/Economist Research Assistant, if applicable. I also have reviewed and agree with the assessment and plan as stated above and agree with all of its relevant components. Referring Provider: MICKEY GRIGGS [[id number]] Allergies As of Date: 04/05/2017 Noted Allergy Reaction AVOCADO 09/10/2014 10 - Anaphylaxis BANANA 09/10/2014 10 - Anaphylaxis CARBINOXAMINE 09/17/2012 10 - Anaphylaxis YOSELIN SEED 08/28/2013 10 - Anaphylaxis CIPROFLOXACIN 04/11/2014 10 - Anaphylaxis CODEINE 01/12/2012 10 - Anaphylaxis CONTRAST DYE 05/17/2013 10 - Anaphylaxis Comments: To MRI and CT DULERA (MOMETASONE-FORMOTEROL) 01/28/2013 10 - Anaphylaxis FISH 09/07/2014 10 - Anaphylaxis HYCODAN (HYDROCODONE-HOMATROPINE) 09/08/2011 10 - Anaphylaxis Comments: Face and throat swelling LATEX 01/21/2014 10 - Anaphylaxis IMTIAZ-SYNEPHRINE (PHENYLEPHRINE HCL)09/04/2014 10 - Anaphylaxis Comments: 10% eye drop NICKEL 01/07/2014 2 - Rash 4 - Hives 10 - Anaphylaxis NSAIDS (NON-STEROIDAL ANTI-INFLAM*08/16/2010 14 - Other: See Comments Comments: Kidney function drops; reversible kidney damage. OXYCODONE 08/28/2013 10 - Anaphylaxis PERIACTIN (CYPROHEPTADINE) 09/17/2012 10 - Anaphylaxis PNEUMOCOCCAL VACCINE 10/31/2014 10 - Anaphylaxis SHELLFISH 09/07/2014 10 - Anaphylaxis ZANTAC (RANITIDINE) 09/17/2012 10 - Anaphylaxis ATIVAN (LORAZEPAM) 08/28/2013 14 - Other: See Comments Comments: hallucination BEEF CONTAINING PRODUCTS 09/10/2014 2 - Rash CORN 05/03/2011 14 - Other: See Comments Comments: Feels like an asthma attack. EGGS (EGG) 03/08/2011 2 - Rash 11 - Vomiting EKG LEADS (ADHESIVE) 10/22/2012 2 - Rash Comments: Localized,only under the leads INFLUENZA VIRUS VACCINES 10/22/2012 12 - Shortness of Breath LISINOPRIL 04/20/2004 3 - Cough MILK 03/08/2011 2 - Rash 11 - Vomiting XOLAIR (OMALIZUMAB) 04/19/2012 12 - Shortness of Breath environmental [Other] 06/26/2007 14 - Other: See Comments Comments: Nasal congestion, brings on an asthma attack. surgical tape [Other] 11/10/2009 2 - Rash 7 - Swelling Comments: Oral rash, swelling of eyes, asthma attacks; per pateint report. Date Reviewed: 04/05/2017 Reviewed by: Bang Roberts - Fully Assessed Reason for Visit: Cataract Evaluation [1919] Glare [1459] Cmt: little at night time Reason For Visit History Recorded Primary Visit Diagnosis:Patient left before evaluation by physician [Z53.21] Prescriptions as of 04/05/2017 Sig: PREDNISONE 10 MG TABLET Take 2.5 tablets by mouth onc* ERGOCALCIFEROL (VITAMIN D2) 5* Take 1 capsule by mouth once * AMLODIPINE 10 MG TABLET Take 15 mg by mouth once mary ellen* TURMERIC ROOT EXTRACT ORAL Take 1 tablet by mouth once d* COMPOUNDED PRESCRIPTION Nocturnal oximetry on room ai* NITROGLYCERIN 0.4 MG SUBLINGU* DISSOLVE 1 TABLET UNDER THE T* BUDESONIDE 0.5 MG/2 ML SUSPEN* Use 1 Ampule via nebulizer tw* CRISABOROLE 2 % TOPICAL OINTM* Apply to the hands twice daily COMPOUNDED PRESCRIPTION Please provide patient with n* FLUTICASONE 100 MCG-VILANTERO* Inhale 1 Inhalation as instru* PREGABALIN 150 MG CAPSULE Take 1 capsule by mouth twice* CETIRIZINE 10 MG TABLET Take 10 mg by mouth once mary ellen* PIMECROLIMUS 1 % TOPICAL CREAM Apply twice daily to the hands SPIRONOLACTONE 50 MG TABLET Take 1 tablet by mouth twice * ONDANSETRON HCL 4 MG TABLET Take 1 tablet by mouth every * CHOLESTYRAMINE (BULK) POWDER Take 1 scoop by mouth once da* BUMETANIDE 0.5 MG TABLET Take 1 tablet by mouth once d* LANSOPRAZOLE 30 MG CAPSULE,DE* Take 1 capsule by mouth twice* AZELASTINE 0.15 % (205.5 MCG)* Use 1 Wilberforce in each nostril t* LEVALBUTEROL HFA 45 MCG/ACTUA* Inhale 1-2 Puffs as instructe* LEVALBUTEROL 1.25 MG/3 ML BRENDA* Use 1 Ampule via nebulizer ev* FLUTICASONE 50 MCG/ACTUATION * 1-2 sprays each side qd BENZONATATE 200 MG CAPSULE Take 200 mg by mouth three ti* LACTOBACILLUS RHAMNOSUS GG 10* Take 1 capsule by mouth twice* FAMOTIDINE 20 MG TABLET Take 1 tablet by mouth twice * Patient taking differently: Take 20 mg by mouth twice liam* DIPHENHYDRAMINE 50 MG CAPSULE Take 1 capsule by mouth every* EPINEPHRINE 0.3 MG/0.3 ML INJ* Inject 0.3 mL intramuscularly* AMOXICILLIN 250 MG CAPSULE Take 250 mg by mouth once liam* ZAFIRLUKAST 20 MG TABLET Take 1 tablet by mouth twice * DOXAZOSIN 2 MG TABLET Take 2 mg by mouth once daily. CYCLOSPORINE MODIFIED 50 MG C* Take 50 mg by mouth twice liam* ASCORBIC ACID (VITAMIN C) 500* Take 1 tablet by mouth once d* Problem List As Of Date 04/05/2017 Noted Resolved JOINT PAIN-ANKLE [M25.579] INVALID FOR*03/20/2014 Edema [R60.9] INVALID FOR*03/28/2016 Priority: I Adrenal nodule (HCC) [E27.9] INVALID FOR* More... Diarrhea [R19.7] INVALID FOR*10/15/2013 Hypertension [I10] INVALID FOR* Priority: E Excessive or frequent menstruation [N92.0] INVALID FOR*07/14/2011 Shortness of breath [R06.02] INVALID FOR*10/15/2013 Palpitations [R00.2] INVALID FOR*03/20/2014 Tachycardia, unspecified [R00.0] INVALID FOR*10/15/2013 More... Open wound site NOS [T14.8XXA] INVALID FOR*07/16/2011 Abdominal pain, right upper quadrant [R10.11] INVALID FOR*07/14/2011 More... Acute gastritis without mention of hemorrhage [*INVALID FOR*10/15/2013 Hematuria [599.7] INVALID FOR*07/14/2011 URGE INCONTINENCE [N39.41] INVALID FOR* FEMALE STRESS INCONTINENCE [N39.3] INVALID FOR* Scar, hypertrophic [L91.0] INVALID FOR*10/15/2013 Ovarian cyst [N83.209] INVALID FOR*07/06/2010 Cyst INVALID FOR*10/15/2013 Other specified pre-operative examination [Z01.*INVALID FOR*07/16/2011 Hirsutism [L68.0] INVALID FOR* Dysphagia [R13.10] INVALID FOR*03/20/2014 GERD (gastroesophageal reflux disease) [K21.9] INVALID FOR* Priority: D More... 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 Obesity (BMI 30.0-34.9) [E66.9] INVALID FOR* More... More... More... More... Idiopathic anaphylaxis [T78.2XXA] INVALID FOR* Priority: A More... Urticaria, idiopathic [L50.1] INVALID FOR*03/28/2016 More... Hyperlipidemia [E78.5] INVALID FOR* Impaired fasting glucose [R73.01] INVALID FOR* Recurrent chest pain [R07.9, G89.29] INVALID FOR*12/09/2014 Multinodular goiter [E04.2] INVALID FOR* More... CKD (chronic kidney disease) stage 3, GFR 30-59*INVALID FOR* Pain in joint, ankle and foot [M25.579] INVALID FOR*12/09/2014 More... More... Steroid-induced hyperglycemia [R73.9, T38.0X5A] INVALID FOR*03/28/2016 Priority: C Moderate persistent asthma without complication*INVALID FOR* Ulcerative colitis without complications (HCC) *INVALID FOR* Anaphylaxis [T78.2XXA] INVALID FOR*03/26/2015 More... Neck pain, bilateral [M54.2] INVALID FOR*03/28/2016 Essential hypertension with goal blood pressure*INVALID FOR*03/28/2016 Chronic nausea [R11.0] INVALID FOR* Lumbar radiculitis [M54.16] INVALID FOR*03/28/2016 Lumbar stenosis [M48.061] INVALID FOR*03/28/2016 Acquired spondylolisthesis [M43.10] INVALID FOR*03/28/2016 Cervical radiculitis [M54.12] INVALID FOR*03/28/2016 Cervical spondylosis with radiculopathy [M47.22]INVALID FOR*03/29/2017 Shoulder impingement [M75.40] INVALID FOR*03/28/2016 Anaphylaxis [T78.2XXA] INVALID FOR*03/28/2016 Tendonitis, tibialis [M76.829] INVALID FOR*05/09/2016 Lumbar stenosis [M48.061] INVALID FOR* Cervical radiculitis [M54.12] INVALID FOR*03/29/2017 Cervical herniated disc [M50.20] INVALID FOR*03/29/2017 Cervical stenosis of spine [M48.02] INVALID FOR* Cervical spondylosis with myelopathy [M47.12] INVALID FOR*03/29/2017 Cervical myelopathy (HCC) [G95.9] INVALID FOR*03/29/2017 Claustrophobia [F40.240] INVALID FOR* Ptosis of eyelid, bilateral [H02.403] INVALID FOR*03/29/2017 More... Lumbar spondylosis [M47.816] INVALID FOR* More... Preop testing [Z01.818] INVALID FOR* More... Encounter Status:Closed by BANG ROBERTS MD on 04/05/17 ALLERGIES ALLERGIES DATE TYPE / CODE NAME / CODE REACTION SEVERITY SOURCE [facility]/[id number] BEE STING ANAPHYLAXIS Cam [address] (SNOMED CT) [facility] [place] Repository Drug cyproheptadine Anaphylaxis Unknown Berna 8 Allergy/[id number] HCl/[id number](RXN Community (SNOMED CT) OR) Hospital Repository Drug ranitidine Anaphylaxis Unknown Bern[place] 8 Allergy/165306000 HCl/Z478100530(RXN [facility] (SNOMED CT) OR) Hospital Repository Drug ciprofloxacin Anaphylaxis Unknown [place] 8 Allergy/689484897 HCl/Q412209271(RXN [facility] (SNOMED CT) OR) Hospital Repository Drug Iodinated Anaphylaxis Unknown Bern[place] 8 Allergy/290087466 Contrast- Oral and [facility] (SNOMED CT) IV Hospital Dye/O862019534(RXN Repository ORM) Drug NSAIDS Other Unknown [place] 8 Allergy/291007317 (Non-Steroidal Community (SNOMED CT) Anti-Inflamma/F001 Hospital 966332(RXNORM) Repository Drug Gadolinium-MRI Anaphylaxis Unknown [place] 8 Allergy/788869508 Contrast Community (SNOMED CT) Medium/R930971339( Hospital RXNORM) Repository Drug omalizumab/L104021 Anaphylaxis Unknown [place] 8 Allergy/148298824 571(RXNORM) [facility] (SNOMED CT) Hospital Repository Drug lisinopril/H908038 Rash Unknown [place] 8 Allergy/963894989 658(RXNORM) [facility] (SNOMED CT) Hospital Repository Drug lorazepam/N6029200 Other Unknown [place] 8 Allergy/703841713 60(RXNORM) [facility] (SNOMED CT) Hospital Repository Drug codeine/Q787719184 Anaphylaxis Unknown [place] 8 Allergy/745655063 (RXNORM) [facility] (SNOMED CT) Hospital Repository Drug hydrocodone/P13777 Anaphylaxis Unknown [place] 8 Allergy/209978347 1554(RXNORM) [facility] (SNOMED CT) Hospital Repository Drug oxycodone/O7072271 Anaphylaxis Unknown [place] 8 Allergy/792899411 58(RXNORM) [facility] (SNOMED CT) Hospital Repository Drug ciprofloxacin/F006 Anaphylaxis Unknown [place] 8 Allergy/085496936 266963(RXNORM) [facility] (SNOMED CT) Hospital Repository Drug adhesive/G71376548 Anaphylaxis Unknown [place] 8 Allergy/961361004 5(RXNORM) [facility] (SNOMED CT) Hospital Repository Drug carbinoxamine/F006 Anaphylaxis Unknown [place] 8 Allergy/504814502 750579(RXNORM) [facility] (SNOMED CT) Hospital Repository Drug nickel/Q237062371( Hives Unknown [place] 8 Allergy/629184683 RXNORM) [facility] (SNOMED CT) Hospital Repository Drug corn/D325456987(RX Anaphylaxis Unknown [place] 8 Allergy/386755450 NORM) [facility] (SNOMED CT) Hospital Repository Drug egg/P199022387(RXN Anaphylaxis SV Bern[place] 8 Allergy/861201107 ORM) [facility] (SNOMED CT) Hospital Repository Drug banana/L103049090( Rash Unknown [place] 8 Allergy/069482108 RXNORM) [facility] (SNOMED CT) Hospital Repository Drug latex/J804790643(R Anaphylaxis Unknown Bern[place] 8 Allergy/598346520 XNORM) [facility] (SNOMED CT) Hospital Repository Drug milk/P200153502(RX Anaphylaxis Unknown [place] 8 Allergy/620972994 NORM) [facility] (SNOMED CT) Hospital Repository Drug fish Anaphylaxis Unknown [place] 8 Allergy/954961983 derived/W253918011 [facility] (SNOMED CT) (RXNORM) Hospital Repository Drug avocado/J208905630 Rash Unknown [place] 8 Allergy/780517383 (RXNORM) [facility] (SNOMED CT) Hospital Repository Drug shellfish Anaphylaxis Unknown Bern[place] 8 Allergy/951329648 derived/S444952936 [facility] (SNOMED CT) (RXNORM) Hospital Repository DRUG/121913845(SN MOMETASONE ANAPHYLAXIS Cam [address]) Clinic Other [place] Repository Miscellaneous ALLERGY SHOT Anaphylaxis Unknown [place] 6 Allergy/885627120 [facility] (SNOMED CT) Hospital Repository Miscellaneous YOSELIN SEEDS Anaphylaxis Unknown [place] 6 Allergy/055626005 [facility] (SNOMED CT) Hospital Repository Miscellaneous FLU VACCINE Anaphylaxis Unknown [place] 6 Allergy/505176447 [facility] (SNOMED CT) Hospital Repository DRUG PNEUMOCOCCAL ANAPHYLAXIS High [place] 5 INGREDI/824812519 VACCINE Clinic Other (SNOMED CT) [place] Repository Food/364703126(SN AVOCADO ANAPHYLAXIS High [place] [address]) Clinic Other [place] Repository DRUG BANANA ANAPHYLAXIS High [place] 5 INGREDI/382607266 Clinic Other (SNOMED CT) [place] Repository Drug BEEF CONTAINING RASH [place] 5 Class/226237521(S PRODUCTS Clinic Other NOMED CT) [place] Repository Food/665755330(SN FISH ANAPHYLAXIS High [place] [address]) Clinic Other [place] Repository Food/144520325(SN SHELLFISH ANAPHYLAXIS High [place] [address]) Clinic Other [place] Repository DRUG PHENYLEPHRINE HCL ANAPHYLAXIS High [place] 5 INGREDI/046870559 Clinic Other (SNOMED CT) [place] Repository DRUG CIPROFLOXACIN ANAPHYLAXIS High [place] 4 INGREDI/086185896 Clinic Other (SNOMED CT) [place] Repository DRUG LATEX ANAPHYLAXIS High [place] 4 INGREDI/690917298 Clinic Other (SNOMED CT) [place] Repository DRUG NICKEL RASH High [place] 4 INGREDI/829747450 Clinic Other (SNOMED CT) [place] Repository Chemical/37457039 ADHESIVE TAPE ITCHING Cam 4 6(SNOMED CT) (ROSINS) Clinic Other [place] Repository Environ/084563940 SEASONAL ALLERGIES OTHER: SEE C Cam 4 (SNOMED CT) Clinic Other [place] Repository DRUG YOSELIN SEED ANAPHYLAXIS High [place] 4 INGREDI/571863808 Clinic Other (SNOMED CT) [place] Repository DRUG OXYCODONE ANAPHYLAXIS High [facility] 4 INGREDI/000652500 Clinic Other (SNOMED CT) [place] Repository DRUG LORAZEPAM OTHER: SEE C Cam 4 INGREDI/061973358 Clinic Other (SNOMED CT) [place] Repository DRUG CONTRAST DYE ANAPHYLAXIS High [place] 4 INGREDI/036734758 Clinic Other (SNOMED CT) [place] Repository DRUG/839602192(SN MOMETASONE-FORMOTE ANAPHYLAXIS High [place] [address]) [facility] Main [place] Repository DRUG ADHESIVE RASH Cam 3 INGREDI/353496790 Clinic Other (SNOMED CT) [place] Repository Drug INFLUENZA VIRUS SHORTNESS OF Cam 3 Class/314158076(S VACCINES Clinic Other NOMED CT) [place] Repository DRUG CARBINOXAMINE ANAPHYLAXIS High [place] 3 INGREDI/492151535 Clinic Other (SNOMED CT) [place] Repository DRUG CYPROHEPTADINE ANAPHYLAXIS High [place] 3 INGREDI/109539093 Clinic Other (SNOMED CT) [place] Repository DRUG RANITIDINE ANAPHYLAXIS High [facility] 3 INGREDI/875465383 Clinic Other (SNOMED CT) [place] Repository DRUG OMALIZUMAB SHORTNESS OF Cam 3 INGREDI/583400945 Clinic Other (SNOMED CT) [place] Repository DRUG CODEINE ANAPHYLAXIS High [place] 2 INGREDI/206979178 Clinic Other (SNOMED CT) [place] Repository DRUG/844840339(SN HYDROCODONE-HOMATR ANAPHYLAXIS High [place] [address]) OPINE Clinic Other [place] Repository Food/120558444(SN CORN OTHER: SEE C Cam [address]) Clinic Other [place] Repository DRUG EGG RASH Cam 1 INGREDI/413650265 Clinic Other (SNOMED CT) [place] Rep[facility] Food/811490266(SN MILK RASH Cam [address]) Clinic Other [place] Repository Drug NSAIDS OTHER: SEE C High [place] 1 Class/881234883(S (NON-STEROIDAL Clinic Other NOMED CT) ANTI-INFLAMMATORY [place] DRUG) Repository Miscellaneous OTHER RASH Cam 0 Allergy/259972497 Clinic Other (SNOMED CT) [place] Repository DRUG LISINOPRIL COUGH Cam 5 INGREDI/076252875 Clinic Other (SNOMED CT) [place] Repository NG/500175337(SNOM AVOCADO [facility]) [facility] Repository NG/788637449(SNOM BANANA [facility]) [facility] System Repository NG/445286233(SNOM CARBINOXAMINE [facility]) [facility] System Repository NG/131809174(SNOM YOSELIN SEED [facility]) [facility] System Repository NG/145753318(SNOM CIPROFLOXACIN [facility]) [facility] System Repository NG/236182705(SNOM CODEINE [facility]) [facility] Repository NG/672881987(SNOM CONTRAST DYE [facility]) [facility] System Repository NG/071788270(SNOM FISH [facility]) [facility] System Repository NG/238062525(SNOM HYDROCODONE-HOMATR [facility]) OPINE Health System Repository NG/151528705(SNOM LATEX [facility]) [facility] System Repository NG/035785923(SNOM PHENYLEPHRINE HCL [facility] ED [facility]) [facility] System Repository NG/681302561(SNOM NICKEL [facility]) [facility] System Repository NG/785993436(SNOM NSAIDS [facility] CT) (NON-STEROIDAL Health System ANTI-INFLAMMATORY Repository DRUG) NG/107644940(SNOM OXYCODONE [facility] ED [facility]) Health System Repository NG/428113499(SNOM CYPROHEPTADINE [facility] ED [facility]) [facility] System Repository NG/044154028(SNOM PNEUMOCOCCAL [facility]) VACCINE Health System Repository NG/698842190(SNOM SHELLFISH [facility]) [facility] System Repository NG/436876859(SNOM RANITIDINE [facility]) Health System Repository NG/226063371(SNOM ADHESIVE TAPE [facility] ED CT) (ROSINS) Health System Repository NG/748698872(SNOM LORAZEPAM [facility] ED [facility]) Health System Repository NG/066196838(SNOM BEEF CONTAINING [facility] ED CT) PRODUCTS Health System Repository NG/946105022(SNOM CORN [facility]) [facility] System Repository NG/986667268(SNOM EGG [facility]) [facility] System Repository NG/159375374(SNOM ADHESIVE [facility]) [facility] System Repository NG/426170581(SNOM INFLUENZA VIRUS [facility]) VACCINES Health System Repository NG/913474518(SNOM LISINOPRIL [facility]) Health System Repository NG/712688656(SNOM MILK [facility]) [facility] System Repository NG/078567362(SNOM MOMETASONE [facility]) Health System Repository NG/120091046(SNOM SEASONAL ALLERGIES [facility] ED [facility]) Health System Repository NG/658600273(SNOM OMALIZUMAB [facility] ED CT) Health System Repository NG/550262022(SNOM OTHER [facility] ED CT) Health System Repository ENCOUNTERS ENCOUNTERS ADMIT/DISCHARGE ACCOUNT NUMBER ADMITTING ENCOUNTER LOCATION SOURCE CLASS 03/29/2018 [id number] [facility] ding:LAB Repository 03/28/2018/03/28/20 [id number] Ambulatory [address] Main [place] Repository 03/27/2018/03/28/20 [id number] Ambulatory [address] Main [place] Repository 03/26/2018/03/27/20 [id number] Ambulatory [address] Main [place] Repository 03/21/2018/03/22/20 [id number] Ambulatory [address] Main [place] Repository 03/21/2018/03/21/20 [id number] Ambulatory [address] Main [place] Repository 03/15/2018/03/16/[id number] ding:LAB Repository 02/27/2018/02/28/20 [id number] MARITA [address] Main [place] Repository 02/23/2018/02/24/20 [id number] Ambulatory [address] Main [place] Repository 02/23/2018/02/27/20 [id number] Ambulatory [address] Main [place] Repository 02/22/2018/02/24/20 [id number] Ambulatory [place] [facility] Main [place] Repository 02/09/2018/02/10/20 [id number] Ambulatory [address] Main [place] Repository 02/09/2018/02/13/20 [id number] Ambulatory [place] 18 [facility] Main [place] Repository 02/02/2018/02/03/20 [id number] Ambulatory [place] 18 [facility] Main [place] Repository 02/02/2018/02/03/20 [id number] Ambulatory Cam 18 [facility] Main [place] Repository 01/31/2018/02/03/20 [id number] Ambulatory Cam 18 [facility] Main [place] Repository 01/29/2018/02/01/20 [id number] Ambulatory Cam 18 [facility] Main [place] Repository 01/25/2018/01/26/20 [id number] JEFFREY, Ambulatory Cam [address] [place] [address] Main [place] Repository 01/23/2018/01/24/20 [id number] Ambulatory [place] Berna [address] [place] [address] ding:LAB Repository 01/19/2018/01/20/20 [id number] Ambulatory Cam [address] [place] [address] Main [place] Repository 01/19/2018/01/20/20 [id number] Ambulatory [address] Main [place] Repository 01/19/2018/01/23/20 [id number] Ambulatory Cam 18 [facility] Main [place] Repository 01/19/2018/01/20/20 [id number] Ambulatory Cam 18 [facility] Main [place] Repository 01/15/2018/02/16/20 [id number] Ambulatory Cam 18 [facility] Main [place] Repository 01/15/2018/01/16/20 [id number] Ambulatory Cam 18 [facility] Main [place] Repository 01/15/2018/01/17/20 [id number] Ambulatory Cam 18 [facility] Main [place] Repository 01/11/2018/01/12/20 [id number] Ambulatory Cam 18 [facility] Main [place] Repository 01/10/2018/01/16/20 [id number] Ambulatory Cam 18 [facility] Main [place] Repository 01/05/2018/01/19/20 [id number] Ambulatory Cam 18 [facility] Main [place] Repository 12/28/2017/12/29/19 [id number] Ambulatory Cam 18 [facility] Main [place] Repository 12/28/2017/12/29/19 [id number] Ambulatory Cam 18 [facility] Main [place] Repository 12/22/2017 [id number] Ambulatory [place] [facility] ding:LAB Repository 12/20/2017/12/22/19 [id number] Ambulatory Cam 18 [facility] Main [place] Repository 12/20/2017/12/21/19 [id number] Ambulatory Cam 18 [facility] Main [place] Repository 12/04/2017/12/05/19 [id number] Ambulatory Cam 18 [facility] Main [place] Repository 11/28/2017/11/30/19 [id number] Ambulatory [facility] 18 [facility] [place] Repository 11/16/2017/11/17/19 [id number] Ambulatory [place] 18 [facility] ding:LAB Repository 11/10/2017/11/11/19 [id number] Ambulatory Berna Berna 18 [facility] ding:LAB Repository 11/10/2017/11/17/19 [id number] Ambulatory [facility] 18 [facility] Main [place] Repository 11/06/2017/11/08/19 [id number] Ambulatory [facility] 18 [facility] [place] Repository 11/03/2017/11/07/19 [id number] Ambulatory [facility] 18 [facility] Main [place] Repository 11/01/2017/11/02/19 [id number] Ambulatory [facility] 18 [facility] Main [place] Repository 11/01/2017/11/04/19 [id number] Ambulatory [facility] 18 [facility] Main [place] Repository 10/31/2017/11/02/19 [id number] Ambulatory [facility] 18 [facility] [place] Repository 10/27/2017/11/01/19 [id number] Ambulatory [facility] 18 [facility] Main [place] Repository 10/26/2017/10/28/19 [id number] Ambulatory [facility] 18 [facility] [place] Repository 10/25/2017/10/26/19 [id number] Ambulatory [facility] 18 [facility] Main [place] Repository 10/24/2017/10/25/19 [id number] Ambulatory [facility] 18 [facility] Main [place] Repository 10/23/2017/10/26/19 [id number] Ambulatory [facility] 18 [facility] Main [place] Repository 10/12/2017/10/13/19 [id number] Ambulatory [place] 18 [facility] ding:LAB Repository 10/09/2017/10/11/19 [id number] Ambulatory [facility] 18 [facility] Main [place] Repository 10/04/2017/10/05/19 [id number] Ambulatory [facility] 18 [facility] Main [place] Repository 10/04/2017/10/06/19 [id number] Ambulatory [facility] 18 [facility] Main [place] Repository 10/02/2017/10/04/19 [id number] Ambulatory [facility] 18 [facility] [place] Repository 09/28/2017/09/30/19 [id number] Ambulatory [facility] 18 [facility] Main [place] Repository 09/26/2017/09/28/19 [id number] Ambulatory [facility] 18 [facility] Main [place] Repository 09/25/2017/09/26/[id number] Emergency [address] Other [place] Repository 09/21/2017/09/23/19 [id number] Ambulatory [address] Main [place] Repository 09/15/2017/09/19/19 [id number] Ambulatory [address] Main [place] Repository 09/14/2017 [id number] Ambulatory [facility] Other [place] Repository 09/13/2017/09/14/19 [id number] Ambulatory [address] Main [place] Repository 09/12/2017/09/14/19 [id number] Ambulatory [address] Main [place] Repository 09/06/2017/09/08/19 [id number] Ambulatory [address] Main [place] Repository 09/04/2017/09/06/19 [id number] Ambulatory [address] Main [place] Repository 08/31/2017/09/01/19 [id number] Ambulatory [place] Berna [address] [place] [address] ding:LAB Repository 08/29/2017/08/31/19 [id number] Ambulatory [address] Main [place] Repository 08/23/2017/08/25/19 [id number] Ambulatory [address] Main [place] Repository 08/23/2017 [id number] Ambulatory [facility] MEDICAL Repository CENTERBuildi ng:CAGWS 08/22/2017/08/23/19 [id number] Ambulatory [address] Main [place] Repository 08/21/2017 [id number] Ambulatory [facility] Main [place] Repository 08/16/2017/08/18/19 [id number] Ambulatory [place] [address] [facility] Main [place] Repository 08/14/2017/08/15/19 [id number] Ambulatory [address] Main [place] Repository 08/14/2017/08/16/19 [id number] Ambulatory [address] Main [place] Repository 08/09/2017/08/11/19 [id number] Ambulatory [place] [address] [facility] Main [place] Repository 08/08/2017/08/09/19 [id number] Ambulatory Berna Berna [address] [place] [address] ding:LAB Repository 08/07/2017/08/09/19 [id number] Ambulatory [address] Main [place] Repository 08/04/2017/08/09/19 [id number] Ambulatory [address] Main [place] Repository 07/31/2017/08/03/19 [id number] Ambulatory [facility] 18 [facility] [place] Repository 07/27/2017/07/29/19 [id number] Ambulatory [facility] 18 [facility] [place] Repository 07/26/2017/07/28/19 [id number] Ambulatory Cam 18 [facility] Main [place] Repository 07/24/2017/07/26/19 [id number] Ambulatory [facility] 18 [facility] [place] Repository 07/21/2017/07/25/19 [id number] Ambulatory Cam 18 [facility] Main [place] Repository 07/14/2017/07/18/19 [id number] Ambulatory Cam 18 [facility] Main [place] Repository 07/06/2017/07/07/19 [id number] Ambulatory [place] 18 [facility] ding:LAB Repository 07/06/2017/07/07/19 [id number] Ambulatory Cam 18 [facility] Main [place] Repository 07/06/2017/07/07/19 [id number] Ambulatory [address] Main [place] Repository 06/27/2017/06/29/19 [id number] Ambulatory [address] Main [place] Repository 06/26/2017/06/27/19 [id number] Ambulatory Cam 18 [facility] Main [place] Repository 06/26/2017 [id number] Ambulatory Cam [facility] Main [place] Repository 06/26/2017 [id number] Ambulatory Cam [facility] Main [place] Repository 06/22/2017/06/23/19 [id number] Ambulatory [address] Main [place] Repository 06/20/2017/06/24/19 [id number] Ambulatory [address] Main [place] Repository 06/05/2017/06/05/19 [id number] Ambulatory Berna Berna 18 [facility] ding:LAB Repository 06/02/2017/06/07/19 [id number] Ambulatory Cam 18 [facility] Main [place] Repository 05/24/2017/05/24/19 [id number] Ambulatory Cam 18 [facility] Main [place] Repository 05/22/2017/05/22/19 [id number] Ambulatory Cam 18 [facility] Main [place] Repository 05/22/2017/05/23/19 [id number] Ambulatory Cam 18 [facility] Main [place] Repository 05/19/2017/05/19/19 [id number] Ambulatory Cam 18 [facility] Main [place] Repository 05/13/2017/05/13/19 [id number] Ambulatory [facility] 18 [facility] [place] Repository 05/12/2017/05/12/19 [id number] Ambulatory [facility] 18 [facility] Main [place] Repository 05/10/2017/05/10/19 [id number] Ambulatory [place] Berna 18 [facility] ding:LAB Repository 04/27/2017/04/27/19 [id number] Ambulatory BMSBuilding: [place] 18 [facility] Repository 04/20/2017/04/20/19 [id number] Ambulatory [facility] 18 [facility] Main [place] Repository 04/19/2017/04/19/19 [id number] Ambulatory [facility] 18 [facility] [place] Repository 04/19/2017/04/19/19 [id number] Ambulatory [facility] 18 [facility] [place] Repository 04/19/2017/04/20/19 [id number] Ambulatory Cam 18 [facility] Main [place] Repository 04/19/2017/04/19/19 [id number] Ambulatory [facility] 18 [facility] [place] Repository 04/19/2017/04/19/19 [id number] Ambulatory Cam 18 [facility] Main [place] Repository 04/19/2017 [id number] Ambulatory Cam [facility] Main [place] Repository 04/12/2017 [id number] Ambulatory [facility] [place] Repository 04/07/2017/04/07/20 [id number] Ambulatory [facility] 17 [facility] [place] Repository 04/07/2017/04/07/20 [id number] Ambulatory [facility] 17 [facility] [place] Repository 04/07/2017/04/12/20 [id number] Ambulatory Cam 17 [facility] Main [place] Repository 04/07/2017/04/16/20 [id number] Ambulatory [place] Berna 17 [facility] ding:LAB Repository 04/05/2017/04/06/20 [id number] KIERAN, Inpatient [place] 17 [facility] H Encounter [facility] Other [place] Repository 04/05/2017/04/05/20 [id number] Ambulatory [address] Main [place] Repository PAYERS PAYERS ENCOUNTER GUARANTOR PAYER SUBSCRIBER SOURCE 03/29/2018 EZIO CARRANZADIANA Coronel [id number] SR Insurance:ANTHEMPolic BEVINGTONDOB: [address] Number: [id number] [address]Drf: [id number] Repository [phone] (HP) dalia Date:7087-37-14LC [address], [place] [address]NT: 03/29/2018 Secondary NOT GIVENUNK [place] Insurance:SELF PAY [facility] Number: Effective Repository Date:2018-03-19 03/15/2018 EZIO Coronel [id number] SR Insurance:ANTHEMPolic BEVINGTONDOB: [address] y Number: [id number] Hospital [address]Kbt: (419) [id number] Repository [phone] () dalia Date:4100-01-04JG [address], [place] [address]TP: 03/15/2018 Secondary NOT GIVENUNK [place] Insurance:SELF PAY [facility] Number: Effective Repository Date:2018-02-15 01/23/2018 EZIO Trevino Primary RALPH Cornoel [id number] SR Insurance:ANTHEMPolic BEVINGTONDOB: [address] y Number: [id number] [id number]: (419) [id number] Repository [phone] () dalia Date:7664-63-41FM [address], [place] [address]LP: 01/23/2018 Secondary NOT GIVENUNK [place] Insurance:SELF PAY [facility] Number: Effective Repository Date:2017-12-19 12/22/2017 Ezio Coronel [id number] Sr Insurance:ANTHEMPolic BEVINGTONDOB: [address] y Number: [id number] Hospital [address]Ryl: (419) [id number] Repository [phone] () dalia Date:1306-28-93MV [address], [place] [address]WO: 12/22/2017 Secondary NOT GIVENUNK [place] Insurance:SELF PAY [facility] Number: Effective Repository Date:2017-12-22 11/16/2017 Ezio Coronel [id number] Sr Insurance:ANTHEMPolic BEVINGTONDOB: [address] y Number: [id number] Hospital [address]Lsl: (419) [id number] Repository [phone] (HP) dalia Date:8939-65-06LG [address] [place] [address]VC: 11/16/2017 Secondary NOT GIVENUNK [place] Insurance:SELF PAY [facility] Number: Effective Repository Date:2017-11-16 11/10/2017 Ezio Coronel [id number] Sr Insurance:ANTHEMPolic BEVINGTONDOB: Community [address] [place] [address] y Number: [id number] Hospital [address]Hvy: (419) [id number] Repository [phone] (HP) dalia Date:5030-60-21KQ [address]ZTBDX [place] [address]CD: 11/10/2017 Secondary NOT GIVENUNK [place] Insurance:SELF PAY [facility] Number: Effective Repository Date:2017-10-13 10/12/2017 Ezio Coronel [id number] Sr Insurance:ANTHEMPolic BEVINGTONDOB: [address] y Number: [id number] Hospital [address]Vwd: (419) [id number] Repository [phone] () dalia Date:8774-43-42AH [address]QPKHPYT [place] [address]QH: 10/12/2017 Secondary NOT GIVENUNK [place] Insurance:SELF PAY [facility] Number: Effective Repository Date:2017-09-14 08/31/2017 Ezio Coronel [id number] Sr Insurance:ANTHEMPolic BEVINGTONDOB: [address] y Number: [id number] Hospital [address]Xuc: (419) [id number] Repository [phone] () dalia Date:6378-04-54CD [address]EN [place] [address]NH: 08/31/2017 Secondary NOT GIVENUNK [place] Insurance:SELF PAY [facility] Number: Effective Repository Date:2017-08-15 08/23/2017 RALPH DOHERTY M [facility] BEVINGTONDOB: Insurance:BLUE CARD BEVINGTONDOB: [facility] Number: [id number] Repository [address] [id number] [address] [place] [address] dalia Date: [address]Exc: (HP) 08/08/2017 Ezio Primary RALPH Coronel [id number] Sr Insurance:ANTHEMPolic BEVINGTONDOB: [address] y Number: [id number] Hospital [address]Sfc: (407) [id number] Repository [phone] () dalia Date:1159-41-03KT [address] [address]EU: 08/08/2017 Secondary NOT GIVENUNK [place] Insurance:SELF PAY [facility] Number: Effective Repository Date:2017-07-17 07/06/2017 Ezio Primary RALPH Coronel [id number] Sr Insurance:ANTHEMPolic BEVINGTONDOB: [address] y Number: [id number] Hospital [address]Cfc: (223) [id number] Repository [phone] () dalia Date:8836-23-70GK [address]BVBMNP, [place] [address]NH: 07/06/2017 Secondary NOT GIVENUNK [place] Insurance:SELF PAY [facility] Number: Effective Repository Date:2017-06-15 06/05/2017 Ezio Primary RALPH Coronel [id number] Sr Insurance:ANTHEMPolic BEVINGTONDOB: [address] y Number: [id number] [facility] [address]Xvx: ([phone]) [id number] Repository [phone] () dalia Date:[id number] [address], [place] [address]GL: 06/05/2017 Secondary NOT GIVENUNK Berna Insurance:SELF PAY [facility] Number: Effective Repository Date:2017-05-19 05/10/2017 Ezio Primary RALPH Coronel [id number] Sr Insurance:ANTHEMPolic BEVINGTONDOB: [address] y Number: [id number] [facility] [address]Eve: [phone]) [id number] Repository [phone] () dalia Date:[id number] [address], [place] [address]PC: 05/10/2017 Secondary NOT GIVENUNK Berna Insurance:SELF PAY [facility] Number: Effective Repository Date:2017-04-17 04/27/2017 Ezio Primary RALPH Coronel [id number] Sr Insurance:ANTHEMPolic BEVINGTONDOB: [address] y Number: [id number] [facility] [address]Gfj: (419) [id number] Repository [phone] () dalia Date:[id number] [address], [place] [address]JK: 04/27/2017 Secondary NOT GIVENUNK Colona Insurance:SELF PAY [facility] Number: Effective Repository Date:2017-04-04 04/07/2017 Ezio Primary RALPH Coronel [id number] Sr Insurance:ANTHEMPolic BEVINGTONDOB: [address] y Number: [id number] Hospital [address]Hzx: (419) [id number] Repository [phone] () dalia Date:[id number] [address]BF, [place] [address]GR: 04/07/2017 Secondary NOT GIVENUNK Colona Insurance:SELF PAY [facility] Number: Effective Repository Date:2017-03-17
== END 2018-03-16 09:29 | disposition home or self-care (01) ==
LOC: LAB 13:33
PROVIDERS: Referring Provider Allergy & Immunology; Visit Provider Allergy & Immunology
DX: N18.3 Chronic kidney disease, stage 3 (moderate) (principal); E55.9 Vitamin D deficiency, unspecified; E79.0 Hyperuricemia without signs of inflammatory arthritis and tophaceous disease
CPT/HCPCS: 36415; 80048; 80076; 81002; 82043; 82306; 82565; 84100; 84520; 84550; 85027

== ENCOUNTER → 2018-08-09 11:32 | Outpatient (CLI) | payer BC, SELFPAY ==
--- NOTE | 2018-08-10 12:46 | STRESSREP_ITS ---
Stress Test Report Date: August 10, 2018 Procedure: Exercise stress test Indications: [Shortness of breath, chest pain] Consent: Per the patient Procedure: The patient exercised on a Cortez protocol for 5 minutes achieving a peak heart rate of 151 bpm (95 % predicted maximal heart rate) with a peak blood pressure 158/84 mmHg and a peak MET capacity of approximately 7 mET's. The baseline ECG demonstrated normal sinus rhythm no significant ST-T changes. The peak exercise ECG demonstrated sinus tachycardia with no significant ST-T changes. [There were no cardiac dysrhythmias pretest, during exercise, or recovery]. The functional capacity was considered average. The patient had no complaint of chest discomfort during exercise or recovery. The examination was discontinued secondary to dyspnea. Impression: 1. Exercise stress test is negative for exercise-induced chest pain or EKG changes of ischemia. 2. Functional capacity is average for age. This note was generated with [employer] software. It may contain incorrect words, spelling, and punctuation that were not noted in checking the note before signing.
== END ==
PROVIDERS: Referring Provider Internal Medicine Cardiovascular Disease; Visit Provider Internal Medicine Cardiovascular Disease
DX: R06.02 Shortness of breath (principal); R07.9 Chest pain, unspecified
CPT/HCPCS: 93017

== ENCOUNTER → 2018-08-14 11:19 | Outpatient (CLI) | payer BC, SELFPAY ==
[2018-08-14 11:26] LABS: Mucous, Urine 0 SEEN /hpf (<or=2+); Red Blood Cells-Urine 0 SEEN /hpf (0-5)
[2018-08-14 11:51] LABS: Color, Urine Yellow (Yellow); Glucose, Dipstick Normal (Normal); Ketone-Dipstick 5 mg/dl (Negative); Leukocyte Esterase-Dipstick 100 /ul (Negative); Nitrite-Dipstick Negative (Negative); Occult Blood-Urine 10 /ul (Negative); Protein-Dipstick 30 mg/dl (Negative); Specific Gravity, Urine 1.015 (1.002-1.030); Urine Clarity Sl. Cloudy (Clear); Urine Urobilinogen 1 mg/dl (Normal)
[2018-08-14 11:52] LABS: Urine Bilirubin Dipstick 1 mg/dL (Negative)
[2018-08-14 11:56] LABS: Hematocrit 46.3 % (37-47); Hemoglobin 15.4 g/dl (12.0-15.0); Mean Corp Hgb Conc 33.3 g/gl (32-36); Mean Corpuscular Hgb 29.3 pg (27.0-32.0); Mean Platelet Vol. 10.8 fl (6.2-12.0); Platelet Count 228 K/mm3 (150-450); RBC Distribution Width CV 14.5 % (11.6-14.6); RBC Distribution Width SD 46.6 fl (35.1-43.9); Red Blood Count 5.26 M/mm3 (4.2-5.4); Scan Indicated on CBC? Y/N NO; White Blood Count 5.9 K/mm3 (4.4-11.0)
[2018-08-14 12:07] LABS: Bacteria RARE /hpf (None Seen); Squamous Epithelial Cells - UA 5-10 SEEN /hpf (5-10); White Blood Cells 0-5 SEEN /hpf (0-5)
[2018-08-14 12:29] LABS: BUN 19 mg/dL (7-18); BUN/Creat Ratio 15.6 RATIO (10-20); Creatinine, Serum 1.22 mg/dL (0.55-1.02); EST Glomerular Filtration Rate 47 mL/min (>60); Est Glom Filt Rate - Afr Amer 57 mL/min (>60); Glucose 100 mg/dL (74-106); Uric Acid 7.3 mg/dL (2.6-6.0)
[2018-08-14 12:30] LABS: Calcium,Total 8.8 mg/dL (8.5-10.1); Chloride 109 mmol/L (98-107); Phosphorus 3.4 mg/dL (2.5-4.9); Potassium 4.3 mmol/L (3.5-5.1); Sodium Level 138 mmol/L (136-145)
[2018-08-14 14:29] LABS: PTHIN 102.1 pg/mL (18.4-80.1)
[2018-08-14 17:54] LABS: Vitamin D,25 Hydroxy 34.5 ng/mL (29.95-100.01)
== END ==
DX: E79.0 Hyperuricemia without signs of inflammatory arthritis and tophaceous disease (principal); E55.9 Vitamin D deficiency, unspecified; N18.3 Chronic kidney disease, stage 3 (moderate)
CPT/HCPCS: 36415; 80069; 81001; 82043; 82306; 82570; 83970; 84550; 85027

== ENCOUNTER → 2019-03-25 10:41 | Outpatient (CLI) | payer OTHER, SELFPAY ==
[2019-03-25 10:49] LABS: Bacteria 0 SEEN /hpf (None Seen); Mucous, Urine 0 SEEN /hpf (<or=2+); Red Blood Cells-Urine 0 SEEN /hpf (0-5)
[2019-03-25 11:15] LABS: Color, Urine Yellow (Yellow); Glucose, Dipstick Normal (Normal); Ketone-Dipstick Negative (Negative); Leukocyte Esterase-Dipstick 25 /ul (Negative); Nitrite-Dipstick Negative (Negative); Occult Blood-Urine Negative /ul (Negative); Protein-Dipstick 15 mg/dl (Negative); Specific Gravity, Urine 1.015 (1.002-1.030); Urine Bilirubin Dipstick Negative (Negative); Urine Clarity Clear (Clear); Urine Urobilinogen Normal (Normal)
[2019-03-25 11:16] LABS: Hematocrit 47.5 % (37-47); Hemoglobin 15.9 g/dL (12.0-15.0); Mean Corp Hgb Conc 33.5 g/dL (32-36); Mean Corpuscular Hgb 29.9 pg (27.0-32.0); Mean Corpuscular Volume 89.5 fL (81-99); Mean Platelet Vol. 10.4 fl (6.2-12.0); Platelet Count 224 K/mm3 (150-450); RBC Distribution Width CV 13.8 % (11.6-14.6); RBC Distribution Width SD 44.8 fl (35.1-43.9); Red Blood Count 5.31 M/mm3 (4.2-5.4); White Blood Count 6.2 K/mm3 (4.4-11.0)
[2019-03-25 11:32] LABS: Hyaline Cast 0-5 SEEN /lpf (0-5); Squamous Epithelial Cells - UA 0-5 SEEN /hpf (5-10); White Blood Cells 0-5 SEEN /hpf (0-5)
[2019-03-25 11:35] LABS: Albumin, Serum 4.1 g/dL (3.2-5.0); BUN 17 mg/dL (7-18); BUN/Creat Ratio 14.7 RATIO (10-20); Calcium,Total 9.4 mg/dL (8.5-10.1); Chloride 111 mmol/L (98-107); Creatinine, Serum 1.16 mg/dL (0.55-1.02); EST Glomerular Filtration Rate 50 mL/min (>60); Est Glom Filt Rate - Afr Amer 61 mL/min (>60); Glucose 96 mg/dL (74-106); Phosphorus 3.6 mg/dL (2.5-4.9); Sodium Level 143 mmol/L (136-145); Uric Acid 6.7 mg/dL (2.6-6.0)
[2019-03-25 11:45] LABS: Vitamin D,25 Hydroxy 28.3 ng/mL (29.95-100.01)
[2019-03-25 12:09] LABS: Microalbumin,Random Urine 72.3 mg/L (NO RANGE EST.)
== END ==
DX: E55.9 Vitamin D deficiency, unspecified (principal); E79.0 Hyperuricemia without signs of inflammatory arthritis and tophaceous disease; N18.3 Chronic kidney disease, stage 3 (moderate)
CPT/HCPCS: 36415; 80069; 81001; 82043; 82306; 84550; 85027

== ENCOUNTER → 2019-11-22 10:32 | Outpatient (CLI) | payer OTHER, SELFPAY ==
[2019-11-22 11:21] LABS: Absolute Lymphocyte Count 1.26 X10^3/uL (0.83-4.51); Absolute Neutrophil Count 5.3 X10^3/uL (2.0-7.7); Basophil# 0.08 X10^3/uL; Basophil% 1.1 % (0-1); Eosinophils% 2.7 % (0-5); Hematocrit 46.1 % (37-47); Hemoglobin 15.1 g/dL (12.0-15.0); Lymphocyte # 1.26 X10^3/ul (4.0); Lymphocyte % 16.9 % (19-41); Mean Corp Hgb Conc 32.8 g/dL (32-36); Mean Corpuscular Hgb 29.5 pg (27.0-32.0); Mean Corpuscular Volume 90.2 fL (81-99); Mean Platelet Vol. 10.6 fl (6.2-12.0); NRBC Flagged by Analyzer 0 % (0-5); Neutrophil % 70.9 % (47-70); Platelet Count 226 K/mm3 (150-450); RBC Distribution Width CV 13.5 % (11.6-14.6); Red Blood Count 5.11 M/mm3 (4.2-5.4); White Blood Count 7.5 K/mm3 (4.4-11.0)
[2019-11-22 11:45] LABS: Anion Gap 7 (5-15); BUN 16 mg/dL (7-18); BUN/Creat Ratio 14.3 RATIO (10-20); Calcium,Total 9.1 mg/dL (8.5-10.1); Chloride 109 mmol/L (98-107); Creatinine, Serum 1.12 mg/dL (0.55-1.02); EST Glomerular Filtration Rate 52 mL/min (>60); Est Glom Filt Rate - Afr Amer 63 mL/min (>60); Glucose 127 mg/dL (74-106); Potassium 3.5 mmol/L (3.5-5.1); Sodium Level 141 mmol/L (136-145)
== END ==
DX: T78.2XXA Anaphylactic shock, unspecified, initial encounter (principal)
CPT/HCPCS: 36415; 80048; 85025

== ENCOUNTER → 2019-12-31 09:38 | Outpatient (CLI) | payer OTHER, SELFPAY ==
--- NOTE | 2019-12-31 09:58 | RAD_ITS ---
HISTORY: ARTHRALGIA, LEFT HAND PAIN FOR YEARS ADDITIONAL HISTORY: None provided. EXAMINATION/TECHNIQUE: XR Hand Min 3 Views Left Number of images including paperwork: 3 COMPARISON: None FINDINGS: BONES: No acute fracture. Mineralization appears decreased. JOINTS: No subluxation. Severe degenerative changes of the triscaphe joint, first carpometacarpal joint and interphalangeal joints of the first through third fingers. Mild to moderate degenerative changes elsewhere in the wrist and hand. No erosive changes. Chondrocalcinosis. SOFT TISSUES: No distinct foreign body. RAD/Hand Min 3 Views IMPRESSION: Degenerative changes without acute osseous abnormality. at 0621 Reported and signed by: Cris Clemens MD Electronically Signed: Cris Clemens MD at 6:21 EDT Tel , Service support ,
--- NOTE | 2019-12-31 10:00 | RAD_ITS ---
HISTORY: ARTHRALGIA, RIGHT HAND PAIN FOR YEARS ADDITIONAL HISTORY: None provided. EXAMINATION/TECHNIQUE: XR Hand Min 3 Views Right Number of images including paperwork: 3 COMPARISON: None FINDINGS: BONES: No acute fracture. Mineralization appears decreased. JOINTS: No subluxation. Severe degenerative changes of the triscaphe joint, first carpometacarpal joint and distal interphalangeal joints of the first through third fingers. Mild to moderate degenerative changes elsewhere throughout the wrist and hand. No erosive changes. Chondrocalcinosis. SOFT TISSUES: No distinct foreign body. RAD/Hand Min 3 Views IMPRESSION: Degenerative changes without acute osseous abnormality. at 0620 Reported and signed by: Cris Clemens MD Electronically Signed: Cris Clemens MD at 6:20 EDT Tel , Service support ,
[2019-12-31 11:27] LABS: Absolute Lymphocyte Count 1.21 X10^3/uL (0.83-4.51); Absolute Neutrophil Count 5.2 X10^3/uL (2.0-7.7); Basophil# 0.07 X10^3/uL; Eosinophil# 0.17 X10^3/uL; Eosinophils% 2.3 % (0-5); Hematocrit 47.3 % (37-47); Hemoglobin 15.6 g/dL (12.0-15.0); Lymphocyte # 1.21 X10^3/ul (4.0); Lymphocyte % 16.6 % (19-41); Mean Corpuscular Hgb 30.2 pg (27.0-32.0); Mean Corpuscular Volume 91.7 fL (81-99); Mean Platelet Vol. 10.7 fl (6.2-12.0); Monocyte# 0.57 X10^3/uL; Monocyte% 7.8 % (0-10); NRBC Flagged by Analyzer 0 % (0-5); Neutrophil # 5.23 X10^3/uL (2.7-7.7); Neutrophil % 71.9 % (47-70); Platelet Count 226 K/mm3 (150-450); RBC Distribution Width CV 13.6 % (11.6-14.6); RBC Distribution Width SD 46.2 fl (35.1-43.9); Red Blood Count 5.16 M/mm3 (4.2-5.4); White Blood Count 7.3 K/mm3 (4.4-11.0)
[2019-12-31 11:54] LABS: ALB/GLOB Ratio 1.2 RATIO (0.9-2.4); AST(SGOT) 20 U/L (15-37); Alanine Aminotransfer ALT/SGPT 45 U/L (13-56); Alkaline Phosphatase 94 U/L (45-117); Anion Gap 8 (5-15); BUN 22 mg/dL (7-18); BUN/Creat Ratio 17.9 RATIO (10-20); Calcium,Total 9.5 mg/dL (8.5-10.1); Chloride 105 mmol/L (98-107); Cholesterol 141 mg/dL (200); Creatinine, Serum 1.23 mg/dL (0.55-1.02); EST Glomerular Filtration Rate 47 mL/min (>60); Est Glom Filt Rate - Afr Amer 57 mL/min (>60); Globulin 3.4 g/dL (2.2-4.2); Glucose 88 mg/dL (74-106); High Density Lipoprotein 51 mg/dL; Potassium 3.9 mmol/L (3.5-5.1); Protein, Total 7.4 g/dL (6.4-8.2); Rheumatoid Factor < 10.0 IU/mL (<15); Sodium Level 140 mmol/L (136-145); Triglycerides 119 mg/dL; Very Low Density Lipoprotein 24 mg/dL (5-40)
[2020-01-01 19:14] LABS: ANTINUCLEAR ANTIBODIES DIRECT Negative (Negative)
[2020-01-02 08:24] LABS: CCP IgG Antibodies 9 units (0-19)
== END ==
DX: Z00.00 Encounter for general adult medical examination without abnormal findings (principal); M25.541 Pain in joints of right hand; M25.542 Pain in joints of left hand; Z11.4 Encounter for screening for human immunodeficiency virus [HIV]
CPT/HCPCS: 36415; 73130; 80053; 80061; 85025; 86038; 86200; 86431

== ENCOUNTER → 2020-01-17 07:37 | Outpatient (CLI) | payer OTHER, SELFPAY ==
--- NOTE | 2020-01-17 07:39 | BI_ITS ---
MAMMOGRAPHY - BILATERAL SCREENING REASON FOR EXAM: Female, 64 years old. Routine annual screening examination. PERTINENT HISTORY: Sister with breast cancer. TECHNIQUE: Digital bilateral breast addie (3D mammographic acquisition) in the CC and MLO projections. 2-D mediolateral oblique (MLO) and craniocaudad (CC) views of both breasts were obtained. CAD: Full Field Digital Mammography with Computer Added Detection was performed. COMPARISON: Comparison is made with prior examination dated 08/22/2017. FINDINGS: Breast Composition: There are scattered areas of fibroglandular density. There are no dominant masses or suspicious calcifications. Stable benign-appearing bilateral axillary lymph nodes. No other significant abnormalities are identified. There has been no significant change since the prior study. BI/SCREEN MAMM (CAD) W/ADDIE BILAT IMPRESSION: Stable bilateral screening mammogram. Yearly follow-up mammogram recommended. (A) ASSESSMENT CATEGORY: BIRADS Category 2: Benign. A letter regarding these results will be sent to the patient by the facility within 30 days. Approximately 10% of breast cancers are not detected by mammography. A normal mammogram should not delay biopsy of a clinically suspicious abnormality. [id number] Electronically Signed: Cristino Britton, at 10:11 EDT , Service support ,
== END ==
DX: Z12.31 Encounter for screening mammogram for malignant neoplasm of breast (principal); Z80.3 Family history of malignant neoplasm of breast
CPT/HCPCS: 77063; 77067

== ENCOUNTER → 2020-02-20 09:26 | Outpatient (CLI) | payer OTHER, SELFPAY ==
[2020-02-20 09:34] LABS: Bacteria 0 SEEN /hpf (None Seen); Mucous, Urine 0 SEEN /hpf (<or=2+); Red Blood Cells-Urine 0 SEEN /hpf (0-5); White Blood Cells 0 SEEN /hpf (0-5)
[2020-02-20 10:36] LABS: Color, Urine Yellow (Yellow); Glucose, Dipstick Normal (Normal); Ketone-Dipstick 5 mg/dl (Negative); Leukocyte Esterase-Dipstick 25 /ul (Negative); Nitrite-Dipstick Negative (Negative); Occult Blood-Urine Negative /ul (Negative); Protein-Dipstick Negative (Negative); Urine Bilirubin Dipstick Negative (Negative); Urine Clarity Sl. Cloudy (Clear); Urine Urobilinogen Normal (Normal)
[2020-02-20 10:38] LABS: Hematocrit 48.2 % (37-47); Hemoglobin 15.4 g/dL (12.0-15.0); Mean Corpuscular Hgb 29.3 pg (27.0-32.0); Mean Corpuscular Volume 91.6 fL (81-99); Mean Platelet Vol. 10.9 fl (6.2-12.0); Platelet Count 237 K/mm3 (150-450); RBC Distribution Width CV 13.5 % (11.6-14.6); Red Blood Count 5.26 M/mm3 (4.2-5.4); White Blood Count 8.4 K/mm3 (4.4-11.0)
[2020-02-20 10:42] LABS: Squamous Epithelial Cells - UA 5-10 SEEN /hpf (5-10)
[2020-02-20 10:43] LABS: Hyaline Cast 0 SEEN /lpf (0-5)
[2020-02-20 10:57] LABS: Microalbumin,Random Urine 46.4 mg/L (NO RANGE EST.); Microalbumin:Creatinine Ratio 20.9 mg/g CRE (<30 mg/g CRE)
[2020-02-20 11:10] LABS: Albumin, Serum 3.9 g/dL (3.2-5.0); BUN 22 mg/dL (7-18); BUN/Creat Ratio 16.3 RATIO (10-20); Calcium,Total 9.3 mg/dL (8.5-10.1); Chloride 106 mmol/L (98-107); Creatinine, Serum 1.35 mg/dL (0.55-1.02); EST Glomerular Filtration Rate 42 mL/min (>60); Est Glom Filt Rate - Afr Amer 51 mL/min (>60); Glucose 83 mg/dL (74-106); Phosphorus 3.6 mg/dL (2.5-4.9); Potassium 4.1 mmol/L (3.5-5.1); Sodium Level 139 mmol/L (136-145); Uric Acid 7.8 mg/dL (2.6-6.0)
[2020-02-20 13:35] LABS: PTHIN 54.4 pg/mL (18.4-80.1)
[2020-02-20 13:53] LABS: Vitamin D,25 Hydroxy 31.9 ng/mL
== END ==
DX: E79.0 Hyperuricemia without signs of inflammatory arthritis and tophaceous disease (principal); E55.9 Vitamin D deficiency, unspecified; N18.30 Chronic kidney disease, stage 3 unspecified
CPT/HCPCS: 36415; 80069; 81001; 82043; 82306; 82570; 83970; 84550; 85027

== ENCOUNTER → 2020-03-31 13:20 | Outpatient (CLI) | payer OTHER, SELFPAY ==
[2020-03-31 10:04] VITALS: BMI 36.6
[2020-04-02 10:05] LABS: HPV APTIMA, High Risk Negative (Negative)
== END ==
PROVIDERS: Referring Provider Nurse Practitioner Women's Health; Visit Provider Nurse Practitioner Women's Health
DX: Z12.4 Encounter for screening for malignant neoplasm of cervix (principal)
CPT/HCPCS: 87624; 88175; G0145

== ENCOUNTER 2020-04-02 11:30 | Outpatient (RCR) | payer OTHER, SELFPAY ==
--- NOTE | 2020-03-20 12:37 | HP.OTEVAL_ITS ---
Patient's Visit Information CHAS JUSTICE is a 64 year old F, referred to Occupational Therapy by AMANDA CALDWELL, with a diagnosis of OA. Date of Evaluation: 03/18/20 Occupational Therapist: Reina Cortes, OTR/Gary, CHT - Subjective This 64 year old female was seen for OT eval with dx of bilateral OA hands. pt is right handed- pt states she is noticed more difficulty with ADls and IADLS. Pt states she does not work with sweing, quilting and reading is challenging. pt would like to know what she can do to decrease her hand pain and gain more function. - ADLs Kitchen: Chop with knife, Peel fruits & vegetables, Open jars, Open bottle caps, Ziplock bags Miscellaneous: Write, Do crafts, Sew, Gigi/knit/needlework Comments: pt states she has already made changes with her kitchen tools for meal prep- as using large handled spoons, knives etc. - Pain bilateral hands 5 Pain Intensity Range: 5 - ROM ROM Comments: pt demo with bilateral OA deformities hands IF DIP PIP and CMC. 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 Pt will demo understanding of adaptive Equipment use to decrease stress on joints to allow pt to perform BADSL and IADLS at MARIA E level. Goal:: pt will demo understanding of using custom orthosis with ADls to increase support/protection to joints by d/c - Rehabilitation General Assessment: pt demo with OA of bilateral hands increasing pain and limiting use of hands with ADLs and IADLs. pt would benefit from skilled OT services 1-2x week for 4weeks to ed. pt on joint protection, work simplification with ADLs and IADLs and modalities to decrease pain. Today therapist ed. pt on joint protection and work simplification to include in her daily occupations. Therapist discussed use of orthosis to provide protection/support of right IF (most painful finger) with daily occupations- pt was receptive and agree to POC Rehabilitation Potential: Good - Anticipated Interventions A/AAROM/PROM, Modalities, Orthoses, Joint Protection/Energy Conservation, Ergonomic Education, Home Program - Visit Plan Frequency: 1x/Week Duration: 3 Weeks TEXT: Thank you for the opportunity to evaluate your patient. For Medicare and Medicare HMO plans, please review the plan of care and approve it. It will need to be FAXED BACK to us at [phone] for Medicare purposes. Please let me know if there are questions or concerns regarding this plan of c are. Physician Signature: Date:
--- NOTE | 2020-04-02 12:01 | HP.OTDCSUM ---
It has been my pleasure to treat CHAS JUSTICE under orders from AMANDA CALDWELL, for the diagnosis of OA for a total of 4 visit(s). Please see the following information for a summary of their discharge status. % Improvement: 30 Objective/Function: pt demo understanding of joint protection shannen. and utilizing modalities has does give pt some relief in her pain- today therapist noted decrease edema and no noted extensor tendon falling ulnarly off MCP jont- Therapist has used k-tape to increase joint support and orthosis with no improvement- pt was advised to return to for further eval if she continued to get pain, edema. pt agree. Patient Goals: Decrease Pain, Use Hand/Wrist/Arm Normally Again Goal:: Pt will demo understanding of joint protection and ergonomics when performing BADLs and IADLs by d/c. Pt will demo understanding of adaptive Equipment use to decrease stress on joints to allow pt to perform BADSL and IADLS at MARIA E level. Goal:: pt will demo understanding of using custom orthosis with ADls to increase support/protection to joints by d/c Plan: use of US. k-tape for lateral support Discharge Comments: pt was seen for 4 OT sessions therapy has ed. pt on ad. eq. joint protection and use of OA gloves to provide support. Therapist ed. pt on orthosis but after trial of one pt decided was not helpful- pt will cont with use of heat/ice and use of joint protection shannen. pt agrees to return to if pain continues to limit her ind. with ADLs and IADLs. pt agree to D/C with HEP If there are questions or concerns regarding this patient's occupational therapy, please fell free to call me at [phone]. Thank you for the referral of this patient. Sincerely, Reina Cortes, OTR/L, CHT
== END 2020-04-02 19:00 | disposition home or self-care (01) ==
LOC: OT 11:30
DX: M19.041 Primary osteoarthritis, right hand (principal); M19.042 Primary osteoarthritis, left hand
CPT/HCPCS: 97035; 97140; 97166; 97530

== ENCOUNTER → 2020-07-01 10:19 | Outpatient (CLI) | payer OTHER, SELFPAY ==
[2020-03-31 10:04] VITALS: BMI 36.6
[2020-07-01 11:45] LABS: Albumin, Serum 3.5 g/dL (3.2-5.0); BUN 19 mg/dL (7-18); Calcium,Total 8.8 mg/dL (8.5-10.1); Chloride 110 mmol/L (98-107); Creatinine, Serum 1.36 mg/dL (0.55-1.02); EST Glomerular Filtration Rate 42 mL/min (>60); Est Glom Filt Rate - Afr Amer 50 mL/min (>60); Glucose 122 mg/dL (74-106); Phosphorus 3.4 mg/dL (2.5-4.9); Potassium 4.1 mmol/L (3.5-5.1); Sodium Level 141 mmol/L (136-145)
== END ==
DX: N18.30 Chronic kidney disease, stage 3 unspecified (principal)
CPT/HCPCS: 36415; 80069

== ENCOUNTER → 2020-09-04 08:53 | Outpatient (CLI) | payer OTHER, SELFPAY ==
[2020-03-31 10:04] VITALS: BMI 36.6
[2020-09-04 10:39] LABS: Absolute Lymphocyte Count 1.04 X10^3/uL (0.83-4.51); Basophil# 0.07 X10^3/uL; Basophil% 0.9 % (0-1); Eosinophil# 0.15 X10^3/uL; Eosinophils% 1.9 % (0-5); Hematocrit 48.9 % (37-47); Hemoglobin 16.2 g/dL (12.0-15.0); Lymphocyte # 1.04 X10^3/ul (0.83-4.51); Mean Corp Hgb Conc 33.1 g/dL (32-36); Mean Corpuscular Volume 90.6 fL (81-99); Mean Platelet Vol. 10.7 fl (6.2-12.0); Monocyte# 0.75 X10^3/uL; Monocyte% 9.4 % (0-10); NRBC Flagged by Analyzer 0 % (0-5); Neutrophil # 5.95 X10^3/uL (2.7-7.7); Neutrophil % 74.3 % (47-70); Platelet Count 273 K/mm3 (150-450); RBC Distribution Width CV 13.2 % (11.6-14.6); RBC Distribution Width SD 43.9 fl (35.1-43.9)
[2020-09-04 11:13] LABS: ALB/GLOB Ratio 1.3 RATIO (0.9-2.4); AST(SGOT) 38 U/L (15-37); Alanine Aminotransfer ALT/SGPT 67 U/L (13-56); Albumin, Serum 4.3 g/dL (3.2-5.0); Alkaline Phosphatase 93 U/L (45-117); Anion Gap 10 (5-15); BUN 24 mg/dL (7-18); BUN/Creat Ratio 17.5 RATIO (10-20); Calcium,Total 9.7 mg/dL (8.5-10.1); Chloride 102 mmol/L (98-107); Creatinine, Serum 1.37 mg/dL (0.55-1.02); EST Glomerular Filtration Rate 41 mL/min (>60); Est Glom Filt Rate - Afr Amer 50 mL/min (>60); Globulin 3.4 g/dL (2.2-4.2); Glucose 113 mg/dL (74-106); Potassium 3.8 mmol/L (3.5-5.1); Protein, Total 7.7 g/dL (6.4-8.2); Sodium Level 138 mmol/L (136-145)
[2020-09-07 20:08] LABS: Immunoglobulin A 155 mg/dL (87-352); Immunoglobulin G 583 mg/dL (586-1602); Immunoglobulin M 112 mg/dL (26-217)
[2020-09-07 20:24] LABS: Cyclosporine < 25 ng/mL (100-400); SAR-COV-2 IGM ANTIBODY Negative (Negative)
== END ==
DX: J45.50 Severe persistent asthma, uncomplicated (principal); Z13.0 Encounter for screening for diseases of the blood and blood-forming organs and certain disorders involving the immune mechanism; Z79.899 Other long term (current) drug therapy; Z87.892 Personal history of anaphylaxis
CPT/HCPCS: 36415; 80053; 80158; 82784; 85025; 86769

== ENCOUNTER → 2020-09-24 08:38 | Outpatient (CLI) | payer OTHER, SELFPAY ==
[2020-03-31 10:04] VITALS: BMI 36.6
[2020-09-24 08:44] LABS: Bacteria 0 SEEN /hpf (None Seen); Mucous, Urine 0 SEEN /hpf (<or=2+); Red Blood Cells-Urine 0 SEEN /hpf (0-5); White Blood Cells 0 SEEN /hpf (0-5)
[2020-09-24 09:45] LABS: Color, Urine Yellow (Yellow); Glucose, Dipstick Normal (Normal); Ketone-Dipstick 5 mg/dl (Negative); Leukocyte Esterase-Dipstick 25 /ul (Negative); Nitrite-Dipstick Negative (Negative); Occult Blood-Urine 10 /ul (Negative); Protein-Dipstick Negative (Negative); Urine Bilirubin Dipstick Negative (Negative); Urine Clarity Sl. Cloudy (Clear); Urine Urobilinogen 1 mg/dl (Normal)
[2020-09-24 09:59] LABS: Squamous Epithelial Cells - UA 0-5 SEEN /hpf (5-10)
[2020-09-24 10:02] LABS: BUN 21 mg/dL (7-18); BUN/Creat Ratio 16.9 RATIO (10-20); Calcium,Total 9.3 mg/dL (8.5-10.1); Chloride 108 mmol/L (98-107); Creatinine, Serum 1.24 mg/dL (0.55-1.02); EST Glomerular Filtration Rate 46 mL/min (>60); Est Glom Filt Rate - Afr Amer 56 mL/min (>60); Glucose 97 mg/dL (74-106); Phosphorus 3.8 mg/dL (2.5-4.9); Potassium 4.3 mmol/L (3.5-5.1); Sodium Level 141 mmol/L (136-145); Uric Acid 7.9 mg/dL (2.6-6.0)
[2020-09-24 10:03] LABS: Microalbumin,Random Urine 58.5 mg/L (NO RANGE EST.); Microalbumin:Creatinine Ratio 25.8 mg/g CRE (<30 mg/g CRE)
[2020-09-24 10:04] LABS: PTHIN 62.7 pg/mL (18.4-80.1)
[2020-09-24 10:07] LABS: Vitamin D,25 Hydroxy 38.6 ng/mL
== END ==
DX: E55.9 Vitamin D deficiency, unspecified (principal); E79.0 Hyperuricemia without signs of inflammatory arthritis and tophaceous disease; N18.30 Chronic kidney disease, stage 3 unspecified
CPT/HCPCS: 36415; 80069; 81001; 82043; 82306; 82570; 83970; 84550

== ENCOUNTER → 2021-01-08 08:54 | Outpatient (CLI) | payer OTHER, SELFPAY ==
[2021-01-08 09:44] LABS: Absolute Lymphocyte Count 1.18 X10^3/uL (0.83-4.51); Absolute Neutrophil Count 4.5 X10^3/uL (2.0-7.7); Basophil# 0.07 X10^3/uL; Basophil% 1.1 % (0-1); Eosinophil# 0.17 X10^3/uL; Eosinophils% 2.6 % (0-5); Hematocrit 47.3 % (37-47); Hemoglobin 15.7 g/dL (12.0-15.0); Lymphocyte # 1.18 X10^3/ul (0.83-4.51); Mean Corp Hgb Conc 33.2 g/dL (32-36); Mean Corpuscular Volume 90.3 fL (81-99); Mean Platelet Vol. 10.4 fl (6.2-12.0); Monocyte# 0.57 X10^3/uL; Monocyte% 8.7 % (0-10); NRBC Flagged by Analyzer 0 % (0-5); Neutrophil # 4.52 X10^3/uL (2.7-7.7); Neutrophil % 69.1 % (47-70); Platelet Count 227 K/mm3 (150-450); RBC Distribution Width CV 14.2 % (11.6-14.6); RBC Distribution Width SD 46.9 fl (35.1-43.9); Red Blood Count 5.24 M/mm3 (4.2-5.4); White Blood Count 6.5 K/mm3 (4.4-11.0)
[2021-01-08 10:11] LABS: Hemoglobin A1c 5.7 % (3.8-5.6)
[2021-01-08 10:19] LABS: ALB/GLOB Ratio 1.1 RATIO (0.9-2.4); AST(SGOT) 24 U/L (15-37); Alanine Aminotransfer ALT/SGPT 52 U/L (13-56); Albumin, Serum 3.7 g/dL (3.2-5.0); Alkaline Phosphatase 87 U/L (45-117); Anion Gap 6 (5-15); BUN 20 mg/dL (7-18); BUN/Creat Ratio 15.3 RATIO (10-20); Chloride 105 mmol/L (98-107); Cholesterol 149 mg/dL (200); Creatinine, Serum 1.31 mg/dL (0.55-1.02); EST Glomerular Filtration Rate 43 mL/min (>60); Est Glom Filt Rate - Afr Amer 52 mL/min (>60); Globulin 3.4 g/dL (2.2-4.2); Glucose 97 mg/dL (74-106); High Density Lipoprotein 51 mg/dL; Potassium 3.8 mmol/L (3.5-5.1); Protein, Total 7.1 g/dL (6.4-8.2); Sodium Level 137 mmol/L (136-145); Thyroid Stim Hormone (TSH) 3.97 uIU/mL (0.358-3.74); Triglycerides 156 mg/dL; Very Low Density Lipoprotein 31 mg/dL (5-40)
[2021-01-08 10:35] LABS: Vitamin D,25 Hydroxy 32.2 ng/mL
== END ==
DX: Z00.00 Encounter for general adult medical examination without abnormal findings (principal); E55.9 Vitamin D deficiency, unspecified
CPT/HCPCS: 36415; 80053; 80061; 82306; 83036; 84443; 85025

== ENCOUNTER → 2021-02-22 09:14 | Outpatient (CLI) | payer OTHER, SELFPAY ==
[2021-02-22 10:11] LABS: Absolute Neutrophil Count 4.4 X10^3/uL (2.0-7.7); Basophil# 0.05 X10^3/uL; Basophil% 0.8 % (0-1); Eosinophil# 0.11 X10^3/uL; Eosinophils% 1.8 % (0-5); Hematocrit 46.9 % (37-47); Hemoglobin 15.6 g/dL (12.0-15.0); Lymphocyte % 16.5 % (19-41); Mean Corp Hgb Conc 33.3 g/dL (32-36); Mean Corpuscular Hgb 30.1 pg (27.0-32.0); Mean Corpuscular Volume 90.4 fL (81-99); Mean Platelet Vol. 10.8 fl (6.2-12.0); Monocyte# 0.46 X10^3/uL; Monocyte% 7.6 % (0-10); NRBC Flagged by Analyzer 0 % (0-5); Neutrophil % 72.6 % (47-70); Platelet Count 209 K/mm3 (150-450); RBC Distribution Width CV 13.8 % (11.6-14.6); RBC Distribution Width SD 45.7 fl (35.1-43.9); Red Blood Count 5.19 M/mm3 (4.2-5.4); White Blood Count 6.1 K/mm3 (4.4-11.0)
[2021-02-22 10:41] LABS: ALB/GLOB Ratio 1.1 RATIO (0.9-2.4); AST(SGOT) 21 U/L (15-37); Alanine Aminotransfer ALT/SGPT 50 U/L (13-56); Albumin, Serum 3.7 g/dL (3.2-5.0); Alkaline Phosphatase 82 U/L (45-117); Anion Gap 9 (5-15); BUN 20 mg/dL (7-18); BUN/Creat Ratio 16.7 RATIO (10-20); Calcium,Total 9.3 mg/dL (8.5-10.1); Chloride 107 mmol/L (98-107); EST Glomerular Filtration Rate 48 mL/min (>60); Est Glom Filt Rate - Afr Amer 58 mL/min (>60); Globulin 3.4 g/dL (2.2-4.2); Glucose 137 mg/dL (74-106); Potassium 3.9 mmol/L (3.5-5.1); Protein, Total 7.1 g/dL (6.4-8.2); Sodium Level 138 mmol/L (136-145)
== END ==
DX: Z79.899 Other long term (current) drug therapy (principal)
CPT/HCPCS: 36415; 80053; 85025

== ENCOUNTER → 2021-03-09 13:10 | Outpatient (CLI) | payer OTHER, SELFPAY ==
[2021-03-09 13:16] LABS: Bacteria 0 SEEN /hpf (None Seen); Mucous, Urine 0 SEEN /hpf (<or=2+); Red Blood Cells-Urine 0 SEEN /hpf (0-5); White Blood Cells 0 SEEN /hpf (0-5)
[2021-03-09 15:22] LABS: Hematocrit 46.6 % (37-47); Hemoglobin 15.4 g/dL (12.0-15.0); Mean Corpuscular Hgb 30.1 pg (27.0-32.0); Platelet Count 256 K/mm3 (150-450); RBC Distribution Width CV 13.4 % (11.6-14.6); RBC Distribution Width SD 45.3 fl (35.1-43.9); Red Blood Count 5.12 M/mm3 (4.2-5.4); White Blood Count 8.2 K/mm3 (4.4-11.0)
[2021-03-09 15:23] LABS: Color, Urine Yellow (Yellow); Glucose, Dipstick Normal (Normal); Ketone-Dipstick Negative (Negative); Leukocyte Esterase-Dipstick 25 /ul (Negative); Nitrite-Dipstick Negative (Negative); Occult Blood-Urine Negative /ul (Negative); Protein-Dipstick Negative (Negative); Specific Gravity, Urine 1.015 (1.002-1.030); Urine Bilirubin Dipstick Negative (Negative); Urine Clarity Clear (Clear); Urine Urobilinogen Normal (Normal)
[2021-03-09 15:30] LABS: Squamous Epithelial Cells - UA 0-5 SEEN /hpf (5-10)
[2021-03-09 15:46] LABS: Microalbumin,Random Urine 28.4 mg/L (NO RANGE EST.); Microalbumin:Creatinine Ratio 20.4 mg/g CRE (<30 mg/g CRE)
[2021-03-09 15:55] LABS: BUN 22 mg/dL (7-18); Calcium,Total 9.2 mg/dL (8.5-10.1); Chloride 105 mmol/L (98-107); Creatinine, Serum 1.57 mg/dL (0.55-1.02); EST Glomerular Filtration Rate 35 mL/min (>60); Est Glom Filt Rate - Afr Amer 43 mL/min (>60); Glucose 116 mg/dL (74-106); Phosphorus 3.8 mg/dL (2.5-4.9); Potassium 3.6 mmol/L (3.5-5.1); Sodium Level 139 mmol/L (136-145); Uric Acid 8.8 mg/dL (2.6-6.0)
[2021-03-09 15:58] LABS: Vitamin D,25 Hydroxy 28.4 ng/mL
[2021-03-10 08:57] LABS: PTHIN 101.2 pg/mL (18.4-80.1)
== END ==
DX: N18.31 Chronic kidney disease, stage 3a (principal); E79.0 Hyperuricemia without signs of inflammatory arthritis and tophaceous disease; E55.9 Vitamin D deficiency, unspecified
CPT/HCPCS: 36415; 80069; 81001; 82043; 82306; 82570; 83970; 84550; 85027

== ENCOUNTER 2021-05-29 12:29 | Emergency (ER) | payer MEDICARE, OTHER, SELFPAY ==
[2021-05-29 12:30] VITALS: BP 155/87; PULSE 79; RESP 14; TEMP 36.3; O2SAT 98; BMI 35.1
--- NOTE | 2021-05-29 13:04 | RAD_ITS ---
STUDY: X-RAY - RIGHT FEMUR REASON FOR STUDY: Female, 66 years old. Pain TECHNIQUE: 2 view(s) of the femur. COMPARISON: None. FINDINGS: Normal visualized femur. Normal visualized soft tissue structure. RAD/Femur Min 2 Views IMPRESSION: Normal x-ray examination of the femur. Electronically Signed: Dany Murcia MD at 13:32 EST ,
--- NOTE | 2021-05-29 13:05 | ED.VIS.LOWEX ---
HPI History of Present Illness Chief Complaint: Lower Extremity Injury Narrative Narrative: Patient presents because of right lateral quadriceps pain and weakness. It is worse with movement. She states that she was fine yesterday, but woke this morning and was having problems moving her right leg and walking. She gets sharp pain when she weight bears and stands on the lateral aspect of her right thigh. She denies any injury. She denies any chest pain or shortness of breath. No overt swelling of her leg. She went to urgent care and they sent her to the emergency department for possible blood clot. Once again, she denies any injury to the area but has pain in her right lateral thigh with movement. [facility] Medical History (Updated 05/29/21 @ 14:17 by Armen Babcock MD) Adrenal tumor Allergic rhinitis Asthma Chronic back pain CKD (chronic kidney disease) Hyperlipidemia Hypertension Idiopathic anaphylaxis Obesity (BMI 30.0-34.9) THONY (obstructive sleep apnea) Syncope Home Medications Astepro 2 spry NASAL BID PRN PRN 05/12/14 [History Last Taken 01/20/16 19:00] albuterol sulfate 4 mg PO TID PRN PRN 05/12/14 [History Last Taken Unknown] amlodipine 5 mg PO DAILY 05/12/14 [History Last Taken 01/21/16 07:30] bumetanide 0.5 mg PO BID 05/12/14 [History Last Taken 01/21/16 07:30] cetirizine 10 mg PO BID 05/12/14 [History Last Taken 01/21/16 07:30] cromolyn 20 mg IH TID 05/12/14 [History Last Taken 01/21/16 07:30] cyclosporine modified 50 mg PO BID 05/12/14 [History Last Taken 01/21/16 07:30] doxazosin 2 mg PO DAILY 05/12/14 [History Last Taken 01/21/16 07:30] epinephrine 0.3 mg IM X1 PRN 05/12/14 [History Last Taken 12/24/15] fluticasone propionate 1 spray NASAL DAILY 05/12/14 [History Last Taken 01/20/16 19:00] lansoprazole 30 mg PO BID 05/12/14 [History Last Taken 01/21/16 07:30] levalbuterol HCl 1.25 mg INHALATION Q6H PRN PRN 05/12/14 [History Last Taken 01/21/16 07:30] nitroglycerin 0.4 mg SUBLINGUAL Q5M PRN 05/12/14 [History Last Taken Unknown] pregabalin 150 mg PO BID 05/12/14 [History Last Taken 01/21/16 07:30] spironolactone 50 mg PO DAILY 05/12/14 [History Last Taken 01/21/16 07:30] ascorbic acid (vitamin C) 500 mg PO DAILY@0800 08/04/14 [History Last Taken 01/21/16 07:30] ergocalciferol (vitamin D2) 50,000 unit PO Q7D 08/04/14 [History Last Taken 01/18/16 07:30] famotidine 20 mg PO BID #28 tab 12/15/14 [Rx Last Taken 01/21/16 07:30] amoxicillin 250 mg PO DAILY 01/21/16 [History Last Taken 01/20/16 19:00] diphenhydramine HCl 50 mg PO TID PRN PRN #1 cap 01/23/16 [Rx Last Taken Unknown] prednisone 2 tab PO DAILY@0800 #6 tab 01/23/16 [Rx Last Taken Unknown] cholestyramine (with sugar) 4 gram oral powder 4 g PO BID ea 04/27/17 [History Last Taken Unknown] crisaborole 2 % topical ointment 1 applic TOPICAL BID 04/27/17 [History Last Taken Unknown] ondansetron 4 mg oral soluble film 4 mg PO Q6H PRN 04/27/17 [History Last Taken Unknown] turmeric root extract 538 mg capsule 538 mg PO BID cap 04/27/17 [History Last Taken Unknown] budesonide-formoterol HFA 160 mcg-4.5 mcg/actuation aerosol inhaler 2 puff INHALATION BID 03/31/20 [History Last Taken Unknown] Allergy/AdvReac Type Severity Reaction Status Date / Time bee venom protein (honey bee) Allergy Severe Anaphylaxis Verified 03/31/20 09:56 egg Allergy Severe Anaphylaxis Verified 03/31/20 09:56 adhesive Allergy Anaphylaxis Verified 03/31/20 09:56 avocado Allergy Rash Verified 03/31/20 09:56 banana Allergy Rash Verified 03/31/20 09:56 carbinoxamine Allergy Anaphylaxis Verified 03/31/20 09:56 ciprofloxacin [From Cipro] Allergy Anaphylaxis Verified 03/31/20 09:56 ciprofloxacin HCl Allergy Anaphylaxis Verified 03/31/20 09:56 [From Cipro] codeine Allergy Anaphylaxis Verified 03/31/20 09:56 corn Allergy Anaphylaxis Verified 03/31/20 09:56 cyproheptadine HCl Allergy Anaphylaxis Verified 03/31/20 09:56 [From Periactin] fish derived Allergy Anaphylaxis Verified 03/31/20 09:56 Gadolinium-MRI Contrast Allergy Anaphylaxis Verified 03/31/20 09:56 Medium [MRI] hydrocodone Allergy Anaphylaxis Verified 03/31/20 09:56 Iodinated Contrast Media [CT] Allergy Anaphylaxis Verified 03/31/20 09:56 latex Allergy Anaphylaxis Verified 03/31/20 09:56 lisinopril Allergy Rash Verified 03/31/20 09:56 lorazepam [From Ativan] Allergy Other Verified 03/31/20 09:56 milk Allergy Anaphylaxis Verified 03/31/20 09:56 nickel Allergy Hives Verified 03/31/20 09:56 NSAIDS (Non-Steroidal Allergy Other Verified 03/31/20 09:56 Anti-Inflamma omalizumab [From Xolair] Allergy Anaphylaxis Verified 03/31/20 09:56 oxycodone Allergy Anaphylaxis Verified 03/31/20 09:56 polyethylene glycol Allergy Anaphylaxis Verified 05/29/21 12:33 ranitidine HCl [From Zantac] Allergy Anaphylaxis Verified 03/31/20 09:56 shellfish derived Allergy Anaphylaxis Verified 03/31/20 09:56 ALLERGY SHOT Allergy Anaphylaxis Uncoded 03/31/20 09:56 YOSELIN SEEDS Allergy Anaphylaxis Uncoded 03/31/20 09:56 FLU VACCINE Allergy Anaphylaxis Uncoded 03/31/20 09:56 Family History Father Colon cancer Diabetes Heart disease Hypertension Thyroid disorder Mother Cancer brain Diabetes Hypertension Son Cancer Surgical History History of esophagogastroduodenoscopy (EGD) S/P abdominal hysterectomy and left salpingo-oophorectomy S/P cholecystectomy S/P colonoscopy Social History household members: spouse and children number of children: 3 current occupational status: unemployed history of recent travel: No sexually active: No Smoking Status: Never smoker alcohol intake: never substance use type: does not use diet: other what type of physical activity do you participate in: bicycling seatbelt use: always do you feel safe at home: Yes additional social history: - Ezio BECERRA ROS ED ROS Narrative Constitutional: No fever, no chills. HEENT: No sore throat. No neck pain. No loss of vision. No rhinorrhea. Cardiovascular: No chest pain. No palpitations. No pedal edema. Respiratory: No cough, no shortness of breath. Abdominal: No abdominal pain. No nausea. No vomiting. Genitourinary: No dysuria. No hematuria. Musculoskeletal: Right lateral thigh pain/quadricep. No arthralgias. Neurologic: No headaches. No dizziness. No lightheadedness. Skin: No rash. No change in color. Psychiatric: No depression. No anxiety. EXAM Physical Exam Narrative Exam Narrative: Afebrile. Vital signs noted. HEENT: Normocephalic. Atraumatic. PERRL, EOMI. Neck soft and supple. No point tenderness or step off. Cardiovascular: Regular rate and rhythm. No murmurs, rubs, or gallops appreciated. Respiratory: No tachypnea. Lungs clear to auscultation bilaterally. Gastrointestinal: Abdomen soft, nontender, with normoactive bowel sounds. No rebound or guarding. Neurological: Awake. Alert. Nonfocal, nonlateralizing. Skin: No rash. Normal color. No pallor. Musculoskeletal: No pedal edema. Full range of motion extremities. Positive extension and flexion of right knee. Decreased range of motion lifting right leg off bed secondary to pain, but is able to hold it above bed for short period of time. Palpable dorsalis pedis pulse. Const Vital Signs: 05/29/21 12:30 Temperature 97.3 F L Temperature Source Temporal Pulse Rate 79 Respiratory Rate 14 Blood Pressure 155/87 H Blood Pressure Mean 109 Pulse Ox 98 Oxygen Delivery Method Room Air MDM MDM MDM Narrative Medical decision making narrative: X-rays will be obtained of the right femur to look for pathologic fracture. There is no evidence of fracture as read by the radiologist and myself. Patient has pain in the mid lateral thigh/lateral quadriceps muscle. There is no erythema or firmness. Do not think that is an abscess. Ultrasound is currently unavailable. She will be written for an outpatient ultrasound to be performed in the next 24 hours. However, her pain is more mid quadriceps/lateral, unlikely that it is a DVT. I discussed patient with Dr. Patino with orthopedics. As she has a negative femur x-ray and no osteoporosis, he would like her to be evaluated in the office on Monday. I was going to place her in a knee immobilizer, but he suggested that it would be better for her to use her walker and keep her leg in a position of comfort. She has multiple allergies to medications that cause anaphylaxis. She will continue Tylenol and she states that heating pad was helping her with her pain. She will use her walker to ambulate. I feel she can be discharged safely home with follow-up to orthopedics. Return instructions to the emergency department were reviewed. Disposition is discharged home in stable condition. Radiography Diagnostic Testing: Clinical Impression(s) from Imaging Studies Femur X-Ray 05/29/21 13:04 IMPRESSION: Normal x-ray examination of the femur. Electronically Signed: Dany Murcia MD at 13:32 EST , Discharge Plan Triage Chief Complaint: Lower Extremity Injury ED Provider: Armen Babcock Dx/Rx/DC Orders Clinical Impression: Acute pain of right thigh Instructions: ED Muscle Strain, Extremity Prescriptions: No Action turmeric root extract 538 mg capsule 538 mg PO BID RF: 0 crisaborole 2 % ointment 1 applic TOPICAL BID RF: 0 ondansetron 4 mg film 4 mg PO Q6H PRNRF: 0 cholestyramine (with sugar) 4 gram powder 4 g PO BID RF: 0 Astepro 2 spry NASAL BID PRN PRN (Reason: Allergies) RF: 0 cetirizine 10 MG tablet 10 mg PO BID RF: 0 cromolyn 20 MG/2 ML solution for nebulization 20 mg IH TID RF: 0 amlodipine 2.5 MG tablet 5 mg PO DAILY RF: 0 bumetanide 0.5 MG tablet 0.5 mg PO BID RF: 0 lansoprazole 30 MG capsule 30 mg PO BID RF: 0 nitroglycerin 0.4 MG tablet 0.4 mg SUBLINGUAL Q5M PRN (Reason: Chest Pain) RF: 0 levalbuterol HCl 1.25 MG/3 ML solution for nebulization 1.25 mg INHALATION Q6H PRN PRN (Reason: Sob &/Or Wheezing) RF: 0 epinephrine 0.3 MG syringe 0.3 mg IM X1 PRN (Reason: Wheezing) RF: 0 fluticasone propionate 1 SPRAY spray,suspension 1 spray NASAL DAILY RF: 0 spironolactone 50 MG tablet 50 mg PO DAILY RF: 0 doxazosin 2 MG tablet 2 mg PO DAILY RF: 0 albuterol sulfate 4 MG tablet extended release 12 hr 4 mg PO TID PRN PRN (Reason: Allergies) RF: 0 cyclosporine modified 50 MG capsule 50 mg PO BID RF: 0 pregabalin 150 MG capsule 150 mg PO BID RF: 0 budesonide-formoterol 160-4.5 mcg/actuation HFA aerosol inhaler 2 puff INHALATION BID RF: 0 ergocalciferol (vitamin D2) 50,000 UNIT capsule 50,000 unit PO Q7D RF: 0 ascorbic acid (vitamin C) 500 MG tablet 500 mg PO DAILY@0800 RF: 0 famotidine 20 MG tablet 20 mg PO BID Qty: 28 RF: 0 amoxicillin 250 MG capsule 250 mg PO DAILY RF: 0 prednisone 20 MG tablet 2 tab PO DAILY@0800 Qty: 6 RF: 0 diphenhydramine HCl 25 MG capsule 50 mg PO TID PRN PRN (Reason: itching, rash, anaphylaxis.) Qty: 1 RF: 0 Referrals: AMANDA CALDWELL [Other] Adair Patino MD [STAFF PHYSICIAN] - 2 Days Disposition Disposition: Home, Self Care
== END 2021-05-29 14:36 | disposition home or self-care (01) ==
PROVIDERS: Emergency Provider Emergency Medicine; Visit Provider Emergency Medicine
DX: M79.651 Pain in right thigh (principal); I12.9 Hypertensive chronic kidney disease with stage 1 through stage 4 chronic kidney disease, or unspecified chronic kidney disease; N18.9 Chronic kidney disease, unspecified; E78.5 Hyperlipidemia, unspecified; M54.9 Dorsalgia, unspecified; G89.29 Other chronic pain; G47.33 Obstructive sleep apnea (adult) (pediatric)
CPT/HCPCS: 73552; 99282

== ENCOUNTER 2021-05-30 11:54 | Outpatient (CLI) | payer MEDICARE, OTHER, SELFPAY ==
--- NOTE | 2021-05-30 12:00 | VDLE_ITS ---
Reason For Study: PAIN RIGHT LEFT GSV is normal. CFV is compressible, spontaneous, phasic, CFV is compressible, spontaneous, phasic, competent, and demonstrates normal competent and demonstrates normal augmentation. augmentation. FV is compressible, spontaneous, phasic, competent and demonstrates normal augmentation. POP V is compressible, spontaneous, phasic, competent and demonstrates normal augmentation. T/P Trunk is compressible. PTV is compressible. RT PerV is compressible. Procedure Exam performed in department. This is a venous duplex using B-mode, color flow and spectral Doppler. A preliminary report was called and/or faxed to ED. VL/Venous Duplex US, Unilateral Interpretation Summary There is no evidence of right lower extremity deep vein thrombosis. Right great saphenous vein appears patent and compressible segmentally. Normal flow patterns left common f emoral vein Ordering Physician: Armen Babcock Performed By: hSirley Huddleston RDCS, RVT
== END 2021-05-30 23:59 | disposition home or self-care (01) ==
LOC: VL 11:59 → CVS 12:03
PROVIDERS: Visit Provider Emergency Medicine
DX: M79.661 Pain in right lower leg (principal)
CPT/HCPCS: 93971

== ENCOUNTER 2021-11-08 16:43 | Emergency (ER) | payer MEDICARE, OTHER, SELFPAY ==
[2021-11-08 16:45] VITALS: BP 140/70; PULSE 129; RESP 18; TEMP 36.8; O2SAT 96; BMI 37.6
--- NOTE | 2021-11-08 17:01 | EKG12_ITS ---
Test Reason : ALLERGIC REACTION Blood Pressure : / mmHG Vent. Rate : 121 BPM Atrial Rate : 000 BPM P-R Int : 000 ms QRS Dur : 076 ms QT Int : 436 ms P-R-T Axes : 000 000 032 degrees QTc Int : 619 ms Sinus tachycardia Low voltage QRS Possible Inferior infarct , age undetermined Cannot rule out Anterior infarct , age undetermined Abnormal ECG Confirmed by RASHIDA CHUNG, SAM ([id number]), editorial project manager SOLEDAD WARD ([id number]) on 11/11/2021 1:00:42 PM Referred By: ADÁN Confirmed By:SAM FIELD MD
--- NOTE | 2021-11-08 17:02 | EX.ED.DYSGE1 ---
HPI History of Present Illness Chief Complaint: Allergic Reaction Informant: patient Onset/Context/Timing Onset: Today Context: Sudden Onset Quality: Dyspnea Current Severity: Mild Maximum Severity: Severe Worsened by: PT, possible exposure to latex Relieved by: Pt took three doses of her epi pen Narrative Narrative: Patient was at physical therapy today. She has a history of exercise-induced asthma. She felt asthma symptoms coming on. She used her rescue inhalers. Then she was concerned that she was also having allergic reaction. She thought maybe she was exposed to latex or some other allergen. She took 3 doses of her EpiPen. Her symptoms have improved. No GI symptoms or DIALYSIS TECH symptoms. No other new or unusual symptoms. Prior similar symptoms: Yes Recent Illness/Hospitalization: No PFSH PFS Medical History Adrenal tumor Allergic rhinitis Asthma Chronic back pain CKD (chronic kidney disease) Hyperlipidemia Hypertension Idiopathic anaphylaxis Obesity (BMI 30.0-34.9) THONY (obstructive sleep apnea) Syncope Home Medications Astepro 2 spry BID PRN PRN Allergies 05/12/14 [History Last Taken 01/20/16 19:00] albuterol sulfate 4 mg tablet,extended release,12 hr 4 mg PO TID PRN PRN Allergies 05/12/14 [History Last Taken Unknown] amlodipine 2.5 mg tablet 5 mg PO DAILY 05/12/14 [History Last Taken 01/21/16 07:30] bumetanide 0.5 mg tablet 0.5 mg PO BID 05/12/14 [History Last Taken 01/21/16 07:30] cetirizine 10 mg tablet 10 mg PO BID 05/12/14 [History Last Taken 01/21/16 07:30] cromolyn 20 mg/2 mL solution for nebulization 20 mg IH TID 05/12/14 [History Last Taken 01/21/16 07:30] cyclosporine modified 50 mg capsule 50 mg PO BID 05/12/14 [History Last Taken 01/21/16 07:30] doxazosin 2 mg tablet 2 mg PO DAILY 05/12/14 [History Last Taken 01/21/16 07:30] epinephrine 0.3 mg/0.3 mL injection, auto-injector 0.3 mg IM X1 PRN Wheezing 05/12/14 [History Last Taken 12/24/15] fluticasone propionate 50 mcg/actuation nasal spray,suspension 1 spray NASAL DAILY 05/12/14 [History Last Taken 01/20/16 19:00] lansoprazole 30 mg capsule,delayed release 30 mg PO BID 05/12/14 [History Last Taken 01/21/16 07:30] levalbuterol HCl 1.25 mg/3 mL solution for nebulization 1.25 mg inhalation Q6H PRN PRN Sob &/Or Wheezing 05/12/14 [History Last Taken 01/21/16 07:30] nitroglycerin 0.4 mg sublingual tablet 0.4 mg sublingual Q5M PRN Chest Pain 05/12/14 [History Last Taken Unknown] pregabalin 150 mg capsule 150 mg PO BID 05/12/14 [History Last Taken 01/21/16 07:30] spironolactone 50 mg tablet 50 mg PO DAILY 05/12/14 [History Last Taken 01/21/16 07:30] ascorbic acid (vitamin C) 500 mg tablet 500 mg PO DAILY@0800 08/04/14 [History Last Taken 01/21/16 07:30] ergocalciferol (vitamin D2) 1,250 mcg (50,000 unit) capsule 50,000 unit PO Q7D 08/04/14 [History Last Taken 01/18/16 07:30] famotidine 20 mg tablet 20 mg PO BID #28 tabs 12/15/14 [Rx Last Taken 01/21/16 07:30] amoxicillin 250 mg capsule 250 mg PO DAILY 01/21/16 [History Last Taken 01/20/16 19:00] diphenhydramine HCl 25 mg capsule 50 mg PO TID PRN PRN itching, rash, anaphylaxis. #1 cap 01/23/16 [Rx Last Taken Unknown] prednisone 20 mg tablet 2 tab PO DAILY@0800 #6 tabs 01/23/16 [Rx Last Taken Unknown] cholestyramine (with sugar) 4 gram oral powder 4 g PO BID 04/27/17 [History Last Taken Unknown] crisaborole 2 % topical ointment 1 applic topical BID 04/27/17 [History Last Taken Unknown] ondansetron 4 mg oral soluble film 4 mg PO Q6H PRN 04/27/17 [History Last Taken Unknown] turmeric root extract 538 mg capsule 538 mg PO BID 04/27/17 [History Last Taken Unknown] budesonide-formoterol HFA 160 mcg-4.5 mcg/actuation aerosol inhaler 2 puff inhalation BID 03/31/20 [History Last Taken Unknown] prednisone 10 mg tablet 60 mg PO DAILY 4 days #24 tabs 11/08/21 [Rx Last Taken Unknown] Allergy/AdvReac Type Severity Reaction Status Date / Time bee venom protein (honey bee) Allergy Severe Anaphylaxis Verified 11/08/21 16:48 egg Allergy Severe Anaphylaxis Verified 11/08/21 16:48 adhesive Allergy Anaphylaxis Verified 11/08/21 16:48 avocado Allergy Rash Verified 11/08/21 16:48 banana Allergy Rash Verified 11/08/21 16:48 carbinoxamine Allergy Anaphylaxis Verified 11/08/21 16:48 ciprofloxacin [From Cipro] Allergy Anaphylaxis Verified 11/08/21 16:48 ciprofloxacin HCl Allergy Anaphylaxis Verified 11/08/21 16:48 [From Cipro] codeine Allergy Anaphylaxis Verified 11/08/21 16:48 corn Allergy Anaphylaxis Verified 11/08/21 16:48 COVID-19 (SARS-CoV-2) Allergy Anaphylaxis Verified 11/08/21 16:48 vaccine, pranay cyproheptadine HCl Allergy Anaphylaxis Verified 11/08/21 16:48 [From Periactin] fish derived Allergy Anaphylaxis Verified 11/08/21 16:48 Gadolinium-MRI Contrast Allergy Anaphylaxis Verified 11/08/21 16:48 Medium [MRI] hydrocodone Allergy Anaphylaxis Verified 11/08/21 16:48 Iodinated Contrast Media [CT] Allergy Anaphylaxis Verified 11/08/21 16:48 latex Allergy Anaphylaxis Verified 11/08/21 16:48 lisinopril Allergy Rash Verified 11/08/21 16:48 lorazepam [From Ativan] Allergy Other Verified 11/08/21 16:48 milk Allergy Anaphylaxis Verified 11/08/21 16:48 nickel Allergy Hives Verified 11/08/21 16:48 NSAIDS (Non-Steroidal Allergy Other Verified 11/08/21 16:48 Anti-Inflamma omalizumab [From Xolair] Allergy Anaphylaxis Verified 11/08/21 16:48 oxycodone Allergy Anaphylaxis Verified 11/08/21 16:48 polyethylene glycol Allergy Anaphylaxis Verified 11/08/21 16:48 ranitidine HCl [From Zantac] Allergy Anaphylaxis Verified 11/08/21 16:48 shellfish derived Allergy Anaphylaxis Verified 11/08/21 16:48 ALLERGY SHOT Allergy Anaphylaxis Uncoded 11/08/21 16:48 YOSELIN SEEDS Allergy Anaphylaxis Uncoded 11/08/21 16:48 FLU VACCINE Allergy Anaphylaxis Uncoded 11/08/21 16:48 Family History Father Colon cancer Diabetes Heart disease Hypertension Thyroid disorder Mother Cancer brain Diabetes Hypertension Son Cancer Surgical History History of esophagogastroduodenoscopy (EGD) S/P abdominal hysterectomy and left salpingo-oophorectomy S/P cholecystectomy S/P colonoscopy Social History household members: spouse and children number of children: 3 current occupational status: unemployed history of recent travel: No sexually active: No Smoking Status: Never smoker alcohol intake: never substance use type: does not use diet: other what type of physical activity do you participate in: bicycling seatbelt use: always do you feel safe at home: Yes additional social history: - Ezio [facility]ECER[facility] ED Constitutional Constitutional ED: Denies chills Eyes Eyes: Denies blurry vision ENT ENT ED: Denies ear pain Cardiovascular Cardiovascular: Denies chest pain Respiratory/Chest Respiratory/Chest: Denies cough or dyspnea Gastrointestinal Gastrointestinal: Denies abdominal pain Genitourinary Genitourinary ED: Denies dysuria Musculoskeletal Musculoskeletal: Denies arthralgias Integumentary Denies abscess Neurologic Neurologic: Denies headache(s) Psychiatric Psychiatric: Denies anxiety Endocrine Endocrinology: Denies cold intolerance Hematologic/Lymphatic Hematologic/Lymphatic: Denies systems reviewed and no addt'l complaints, except as documented Allergic/Immunologic Allergic/Immunologic ED: Denies mouth swelling EXAM Physical Exam Const Vital Signs: 11/08/21 16:45 11/08/21 17:13 11/08/21 18:54 Temperature 98.2 F Temperature Source Temporal Pulse Rate 129 H 126 H 113 H Respiratory Rate 18 26 H 24 H Respiratory Pattern Blood Pressure 140/70 H 158/65 H 144/76 H Blood Pressure Mean 93 96 98 Pulse Ox 96 95 98 Oxygen Delivery Method Room Air Room Air Room Air 11/08/21 19:29 11/08/21 19:35 11/08/21 21:03 Temperature Temperature Source Pulse Rate 100 120 H 118 H Respiratory Rate 21 H 18 20 H Respiratory Pattern Normal Blood Pressure 146/85 H 151/88 H Blood Pressure Mean 105 109 Pulse Ox 92 94 Oxygen Delivery Method Room Air Room Air Positive well nourished and well developed General Appearance ED: well developed HEENT Reports moist mucous membranes Eyes EOMs intact bilaterally Neck no lymphadenopathy Resp normal respiratory effort and clear to auscultation bilaterally Cardio Rate: tachycardic GI normal to inspection, nondistended, normoactive bowel sounds Neuro oriented x3, CN's II-XII intact bilaterally and no sensory deficits noted Psych mental status grossly normal Skin no rashes or lesions noted MDM MDM MDM Narrative Medical decision making narrative: Patient had an EKG that showed junctional rhythm at a rate of 121. No sign of acute infarction pattern. This was interpreted by me. She was maintained on the monitor. She requested another breathing treatment and received a dose of albuterol at about 3 hours into her stay. She did not have any evidence of anaphylaxis. She was watched for over 4 hours and had no rebound anaphylaxis findings. She will be discharged home on an increased dose of prednisone. Follow-up with her doctor. Return if worse. Impression #1 allergic reaction Impression #2 history of asthma Impression #3 history of anaphylaxis Discharge Plan Triage Chief Complaint: Allergic Reaction ED Provider: Nito Bird Dx/Rx/DC Orders Instructions: ED ADVERSE DRUG REACTION Allergic Prescriptions: New prednisone 10 mg tablet 60 mg PO DAILY 4 Days Qty: 24 0RF No Action turmeric root extract 538 mg capsule 538 mg PO BID crisaborole 2 % ointment 1 applic TOPICAL BID ondansetron 4 mg film 4 mg PO Q6H PRN cholestyramine (with sugar) 4 gram powder 4 g PO BID Astepro 2 spry NASAL BID PRN PRN (Reason: Allergies) Label Comments: Allergies cetirizine 10 MG tablet 10 mg PO BID Label Comments: Allergies cromolyn 20 MG/2 ML solution for nebulization 20 mg IH TID Label Comments: Asthma amlodipine 2.5 MG tablet 5 mg PO DAILY Label Comments: Blood pressure bumetanide 0.5 MG tablet 0.5 mg PO BID Label Comments: Blood pressure lansoprazole 30 MG capsule 30 mg PO BID Label Comments: Stomach ulcers nitroglycerin 0.4 MG tablet 0.4 mg SUBLINGUAL Q5M PRN (Reason: Chest Pain) Label Comments: Chest pain levalbuterol HCl 1.25 MG/3 ML solution for nebulization 1.25 mg INHALATION Q6H PRN PRN (Reason: Sob &/Or Wheezing) Label Comments: Asthma epinephrine 0.3 MG syringe 0.3 mg IM X1 PRN (Reason: Wheezing) Label Comments: Anaphylaxis fluticasone propionate 1 SPRAY spray,suspension 1 spray NASAL DAILY Label Comments: Allergies spironolactone 50 MG tablet 50 mg PO DAILY Label Comments: Blood pressure doxazosin 2 MG tablet 2 mg PO DAILY Label Comments: Blood pressure albuterol sulfate 4 MG tablet extended release 12 hr 4 mg PO TID PRN PRN (Reason: Allergies) Label Comments: Allergies cyclosporine modified 50 MG capsule 50 mg PO BID Label Comments: Idiopathic anaphylaxis pregabalin 150 MG capsule 150 mg PO BID Label Comments: Pain from shingles budesonide-formoterol 160-4.5 mcg/actuation HFA aerosol inhaler 2 puff INHALATION BID Label Comments: Asthma ergocalciferol (vitamin D2) 50,000 UNIT capsule 50,000 unit PO Q7D Label Comments: supplement ascorbic acid (vitamin C) 500 MG tablet 500 mg PO DAILY@0800 Label Comments: supplement famotidine 20 MG tablet 20 mg PO BID Qty: 28 0RF Label Comments: Pt takes because of multiple severe allergies amoxicillin 250 MG capsule 250 mg PO DAILY Label Comments: antibiotic prednisone 20 MG tablet 2 tab PO DAILY@0800 Qty: 6 0RF Label Comments: inflammation Rx Instructions: take for 3 days, then resume maintenance predisone dose. diphenhydramine HCl 25 MG capsule 50 mg PO TID PRN PRN (Reason: itching, rash, anaphylaxis.) Qty: 1 0RF Label Comments: allergies Primary Care Provider: [facility],Out of Referrals: [facility] Doctor,Out of [Primary Care Provider] - Disposition Disposition: Home, Self Care
[2021-11-08] MEDS: MethylPREDNISolone 125 MG/2 ML Vial IV (17:11)
[2021-11-08] MEDS: DiphenhydrAMINE 50 MG/ML Syringe IV (17:11)
[2021-11-08 17:13] VITALS: BP 158/65; PULSE 126; RESP 26; O2SAT 95
[2021-11-08 18:54] VITALS: BP 144/76; PULSE 113; RESP 24; O2SAT 98
[2021-11-08 19:29] VITALS: BP 146/85; PULSE 100; RESP 21; O2SAT 92
[2021-11-08 19:35] VITALS: PULSE 120; RESP 18
[2021-11-08] MEDS: Albuterol 2.5 MG/3 ML VIAL.NEB. INHALATION (19:35)
[2021-11-08 21:03] VITALS: BP 151/88; PULSE 118; RESP 20; O2SAT 94
== END 2021-11-08 21:32 | disposition home or self-care (01) ==
PROVIDERS: Emergency Provider Emergency Medicine; Visit Provider Emergency Medicine
DX: R06.00 Dyspnea, unspecified (principal); T78.40XA Allergy, unspecified, initial encounter; E78.5 Hyperlipidemia, unspecified; M54.9 Dorsalgia, unspecified; I12.9 Hypertensive chronic kidney disease with stage 1 through stage 4 chronic kidney disease, or unspecified chronic kidney disease; N18.9 Chronic kidney disease, unspecified
CPT/HCPCS: 93005; 94640; 96374; 96375; 99251; 99285; A4216; G0463

== ENCOUNTER → 2022-04-25 | Outpatient (CLI) | payer MEDICARE, OTHER, SELFPAY ==
[2022-04-25 12:00] LABS: Protein, Urine (Random) 25.5 mg/dL (<11.9); Protein:Creat Ratio 104 mg/g CRE (0-200)
[2022-04-25 12:09] LABS: PTHIN 59.6 pg/mL (18.4-80.1)
[2022-04-25 12:10] LABS: Albumin, Serum 3.7 g/dL (3.2-5.0); BUN 20 mg/dL (7-18); BUN/Creat Ratio 19.2 RATIO (10-20); Calcium,Total 9.7 mg/dL (8.5-10.1); Chloride 107 mmol/L (98-107); Creatinine, Serum 1.04 mg/dL (0.55-1.02); EST Glomerular Filtration Rate 56 mL/min (>60); Est Glom Filt Rate - Afr Amer 68 mL/min (>60); Glucose 92 mg/dL (74-106); Phosphorus 3.5 mg/dL (2.5-4.9); Potassium 3.9 mmol/L (3.5-5.1); Sodium Level 142 mmol/L (136-145)
[2022-04-25 12:13] LABS: Vitamin D,25 Hydroxy 71.6 ng/mL
== END | disposition home or self-care (01) ==
DX: N18.31 Chronic kidney disease, stage 3a (principal); E55.9 Vitamin D deficiency, unspecified
CPT/HCPCS: 36415; 80069; 82306; 82570; 83970; 84156

== ENCOUNTER → 2023-04-18 | Outpatient (CLI) | payer MEDICARE, OTHER, SELFPAY ==
[2023-04-18 10:18] LABS: Color, Urine Yellow (Yellow); Glucose, Dipstick Normal (Normal); Ketone-Dipstick 5 mg/dl (Negative); Leukocyte Esterase-Dipstick 25 /ul (Negative); Nitrite-Dipstick Negative (Negative); Occult Blood-Urine 10 /ul (Negative); Protein-Dipstick 100 mg/dl (Negative); Specific Gravity, Urine 1.015 (1.002-1.030); Urine Bilirubin Dipstick Negative (Negative); Urine Clarity Sl. Cloudy (Clear); Urine Urobilinogen 1 mg/dl (Normal)
[2023-04-18 10:51] LABS: Vitamin D,25 Hydroxy 99.3 ng/mL
[2023-04-18 10:55] LABS: Albumin, Serum 3.8 g/dL (3.2-5.0); BUN 20 mg/dL (7-18); BUN/Creat Ratio 17.4 RATIO (10-20); Calcium,Total 9.5 mg/dL (8.5-10.1); Chloride 107 mmol/L (98-107); Creatinine, Serum 1.15 mg/dL (0.55-1.02); EST Glomerular Filtration Rate 50 mL/min (>60); Est Glom Filt Rate - Afr Amer 61 mL/min (>60); Glucose 107 mg/dL (74-106); Phosphorus 3.5 mg/dL (2.5-4.9); Potassium 4.1 mmol/L (3.5-5.1); Sodium Level 140 mmol/L (136-145); Uric Acid 7.1 mg/dL (2.6-6.0)
== END | disposition home or self-care (01) ==
PROVIDERS: PCP Family Medicine
DX: N18.31 Chronic kidney disease, stage 3a (principal); E79.0 Hyperuricemia without signs of inflammatory arthritis and tophaceous disease; E55.9 Vitamin D deficiency, unspecified
CPT/HCPCS: 36415; 80069; 81002; 82043; 82306; 84550

== ENCOUNTER → 2024-05-27 | Outpatient (CLI) | payer MEDICARE, OTHER, SELFPAY ==
[2024-05-27 19:51] LABS: Anion Gap 10 (5-15); BUN 18 mg/dL (7-18); BUN/Creat Ratio 15.3 RATIO (10-20); Calcium,Total 8.8 mg/dL (8.5-10.1); Chloride 107 mmol/L (98-107); Creatinine, Serum 1.18 mg/dL (0.55-1.02); EST Glomerular Filtration Rate 48 mL/min (>60); Est Glom Filt Rate - Afr Amer 59 mL/min (>60); Glucose 361 mg/dL (74-106); Sodium Level 138 mmol/L (136-145)
== END | disposition home or self-care (01) ==
LOC: MTLAB 14:18
PROVIDERS: PCP Family Medicine; Referring Provider Urology; Visit Provider Urology
DX: R10.9 Unspecified abdominal pain (principal)
CPT/HCPCS: 36415; 80048

== ENCOUNTER → 2024-05-30 | Outpatient (CLI) | payer MEDICARE, OTHER, SELFPAY ==
--- NOTE | 2024-05-30 12:46 | US_ITS ---
PROCEDURE: KIDNEY AND BLADDER REASON FOR EXAM: Right flank pain. TECHNIQUE: Ultrasound of the kidneys and bladder COMPARISON: None. FINDINGS: Normal renal sizes, parenchymal thicknesses, and echotextures. No hydronephrosis. 2 cysts are seen in the right kidney. The larger cyst measures 1.2 cm x 1.3 cm x 1 cm. Grossly normal bladder contour. No large bladder wall mass visualized. RIGHT Kidney Size: 9.4 cm x 5.7 cm x 5.6 cm Cortical Thickness (if discernible): 1.4 cm (>6mm is normal) LEFT Kidney Size: 10.2 cm x 4.7 cm x 4.7 cm Cortical Thickness (if discernible): 1.5 (>6mm is normal) BLADDER: Prevoid volume: 328 mL US/Kidney and Bladder IMPRESSION: Right renal cysts. No other abnormality is seen. Reading Location: [place] [id number]
== END | disposition home or self-care (01) ==
LOC: US 12:44
PROVIDERS: PCP Family Medicine; Referring Provider Urology; Visit Provider Urology
DX: R10.9 Unspecified abdominal pain (principal)
CPT/HCPCS: 76770